=== PATIENT | female | born 1955 | race Caucasian/White ===

== ENCOUNTER 2016-08-15 17:06 | Inpatient (IN) | payer OTHER ==
[~2016-08-15] VITALS: Ht 160 cm; Wt 62.2 kg
[~2016-08-15 17:06] MED LIST: ALBU1AER9 INH; ATEN-173 PO; CITA20TA9 PO; LISI-729 PO; LORA-741 PO; MULT-506 PO; ONDA8TAB7 PO; PROC1TAB5 PO; THIA50TA3 PO; TRAM-10 PO
[2016-08-15] MEDS ORDERED: ASPIRIN 81 MG CHEW PO STA (17:25)
--- NOTE | 2016-08-15 17:37 | EMERGENCY ROOM VISIT NOTE ---
History Report prepared by Monica: Marita Kay Under the Supervision of: Dr. Ej Morin M.D. First contact with patient: 17:18 Chief Complaint: CARDIAC ASSESSMENT Stated Complaint: A-FIB,SENT BY DR Rosa Triage Summary: pt has hx of a fib in March 2015, today pt went to see Dr Min for productive cough and shaking pt was in a fib and referred to ER, no pain History of Present Illness The patient is a 61 year old female who presents to the Emergency Room with complaints of first intermittent atrial fibrillation that began several months ago, but became persistent two days ago. The patient notes that she has a history of atrial fibrillation of, but is unsure if she was given medications to convert her rhythm. She denies any history of being cardioverted. The patient additionally notes shakiness, coughing, and fatigue with her symptoms today. She denies any chest pain or shortness of breath. The patient states that she has a history of breast cancer and states that she is currently in remission. She states that her atrial fibrillation began intermittently in the end of December when she finished radiation therapy. The patient notes that she takes 81 mg of aspirin daily. She additionally notes that she occasionally vomits in the morning along with her other symptoms. Source of History: patient Onset: several months ago, past two days Position: other (global) Quality: other (atrial fibrillation) Timing: other (persistent) Associated Symptoms: + cough, + fatigue, + vomiting, No SOB, No chest pain Note: Associated Symptoms: Shakiness Review of Systems See HPI for pertinent positives & negatives. A total of 10 systems reviewed and were otherwise negative. Past Medical & Surgical Medical Problems: (1) Breast cancer (2) High cholesterol (3) HTN (hypertension) (4) Mitral valve vegetation (5) Periapical abscess (6) Sepsis Surgical Problems: (1) H/O lumpectomy Family History Diabetes mellitus Heart disease Hypertension Social History Smoking Status: Current Every Day Smoker Alcohol Use: heavy Drug Use: none Marital Status: Housing Status: lives with significant other Occupation Status: retired Current/Historical Medications Scheduled Aspirin (Aspirin Ec), 81 MG PO QAM Atenolol (Tenormin), 25 MG PO QAM Citalopram Hydrobromide (Celexa), 20 MG PO QAM Losartan Potassium (Cozaar), 50 MG PO QAM Thiamine Hcl (Vitamin B-1), 100 MG PO QAM Scheduled PRN Albuterol Sulfate (Proair Respiclick), 2 PUFFS INH Q4 PRN for WHEEZING/COUGH Lorazepam (Ativan), 0.5 MG PO Q6H PRN for Sleep Ondansetron (Ondansetron HCl), 8 MG PO TID PRN for Nausea Prochlorperazine Maleate (Compazine), 10 MG PO Q6H PRN for Nausea Tramadol (Ultram), 1 TAB PO HS PRN for Pain Allergies Coded Allergies: Sulfa Antibiotics (Verified Allergy, Mild, "SULFA" -- unknown rxn, 08/15/16 ) Physical Exam Vital Signs Date Time Temp Pulse Resp B/P Pulse Ox O2 Delivery O2 Flow Rate FiO2 08/15/16 17:33 98 Room Air 08/15/16 17:32 98 Room Air 08/15/16 17:13 97 Room Air 08/15/16 17:13 37.0 109 20 116/73 97 Room Air Physical Exam GENERAL: Patient is a healthy-appearing well-nourished. Tremulous. HEAD: Normocephalic atraumatic EYES: Ocular movements intact pupils equal and react to light OROPHARYNX mucous membranes are moist no exudates present no erythema or edema present NECK: Supple no nuchal rigidity CHEST: Good equal expansion LUNGS: Clear and equal to auscultation CARDIAC: Normal S1 and S2 ABDOMEN: Soft nontender no guarding BACK: No CVA tenderness EXTREMITIES: No pain upon palpation normal muscle strength in all groups no clubbing cyanosis or edema NEURO: Patient is following commands is answering questions appropriately. Alert and oriented x3 Cranial Nerves 2-12 grossly intact Medical Decision & Procedures ER Provider Diagnostic Interpretation: X-ray results as stated below per interpretation by me and the radiologist: CHEST ONE VIEW PORTABLE CLINICAL HISTORY: CHEST PAIN dyspnea COMPARISON STUDY: 05/14/2015 FINDINGS: Mild stable cardiomegaly. Lungs are clear. Diaphragms are smooth. IMPRESSION: Mild stable cardiomegaly. Otherwise negative study Electronically signed by: Baltazar Chisholm M.D. 08/15/2016 6:05 PM Dictated Date/Time: 08/15/2016 6:04 PM Laboratory Results 08/15/16 17:35 Red Blood Count 4.33, Mean Corpuscular Volume 97.5, Mean Corpuscular Hemoglobin 35.1, Mean Corpuscular Hemoglobin Concent 36.0, Mean Platelet Volume 10.1, Neutrophils (%) (Auto) 76.3, Lymphocytes (%) (Auto) 11.4, Monocytes (%) (Auto) 11.4, Eosinophils (%) (Auto) 0.1, Basophils (%) (Auto) 0.6, Neutrophils # (Auto ) 6.83, Lymphocytes # (Auto) 1.02, Monocytes # (Auto) 1.02, Eosinophils # (Auto ) 0.01, Basophils # (Auto) 0.05 08/15/16 17:35 Test 08/15/16 17:35 White Blood Count 8.95 K/uL (4.8-10.8) Red Blood Count 4.33 M/uL (4.2-5.4) Hemoglobin 15.2 g/dL (12.0-16.0) Hematocrit 42.2 % (37-47) Mean Corpuscular Volume 97.5 fL (80-100) Mean Corpuscular Hemoglobin 35.1 pg (25-34) Mean Corpuscular Hemoglobin Concent 36.0 g/dl (32-36) Platelet Count 178 K/uL (130-400) Mean Platelet Volume 10.1 fL (7.4-10.4) Neutrophils (%) (Auto) 76.3 % Lymphocytes (%) (Auto) 11.4 % Monocytes (%) (Auto) 11.4 % Eosinophils (%) (Auto) 0.1 % Basophils (%) (Auto) 0.6 % Neutrophils # (Auto) 6.83 K/uL (1.4-6.5) Lymphocytes # (Auto) 1.02 K/uL (1.2-3.4) Monocytes # (Auto) 1.02 K/uL (0.11-0.59) Eosinophils # (Auto) 0.01 K/uL (0-0.5) Basophils # (Auto) 0.05 K/uL (0-0.2) RDW Standard Deviation 46.6 fL (36.4-46.3) RDW Coefficient of Variation 13.0 % (11.5-14.5) Immature Granulocyte % (Auto) 0.2 % Immature Granulocyte # (Auto) 0.02 K/uL (0.00-0.02) Prothrombin Time 12.6 SECONDS (9.0-12.0) Prothromb Time International Ratio 1.2 (0.9-1.1) Activated Partial Thromboplast Time 31.5 SECONDS (21.0-31.0) Partial Thromboplastin Ratio 1.2 Anion Gap 11.0 mmol/L (3-11) Est Creatinine Clear Calc Drug Dose 71.0 ml/min Estimated GFR () 99.9 Estimated GFR (Non- 86.2 BUN/Creatinine Ratio 17.4 (10-20) Calcium Level 9.1 mg/dl (8.5-10.1) Total Bilirubin 0.9 mg/dl (0.2-1) Direct Bilirubin 0.2 mg/dl (0-0.2) Aspartate Amino Transf (AST/SGOT) 55 U/L (15-37) Alanine Aminotransferase (ALT/SGPT) 45 U/L (12-78) Alkaline Phosphatase 104 U/L (45-117) Total Creatine Kinase 97 U/L (26-192) Creatine Kinase MB 1.6 ng/ml (0.5-3.6) Creatine Kinase MB Ratio 1.6 (0-3.0) Troponin I 0.049 ng/ml (0-0.045) Total Protein 8.1 gm/dl (6.4-8.2) Albumin 3.9 gm/dl (3.4-5.0) Lipase 409 U/L (73-393) Labs reviewed by ED physician. Medications Administered Medications (Trade) Dose Ordered Sig/Ton Route Start Time Stop Time Status Last Admin Dose Admin Aspirin (Aspirin Chew) 324 mg NOW STAT PO 08/15/16 17:25 08/15/16 17:27 DC 08/15/16 17:39 324 MG ECG Indication: other (atrial fibrillation) Rate (beats per minute): 104 Rhythm: atrial fibrillation Findings: no acute ischemic change, other (RVR) ED Course 1720: Past medical records reviewed. The patient was evaluated in room B10. A complete history and physical examination was performed. 1724: Ordered Aspirin 324 mg PO. 0: I reevaluated the patient and she is resting comfortably. I discussed the exam findings with her and I discussed the treatment plan. She verbalized complete understanding and agreement. She will be evaluated for further treatment. 1837: I discussed the patients case with Sinan Champion. He is going to be evaluated for further treatment. Medical Decision Differential diagnosis: Etiologies such as cardiac ischemia, aortic dissection, pulmonary embolism, pneumonia, pneumothorax, musculoskeletal, infections, pericarditis, myocarditis , esophageal rupture, gastrointestinal, as well as others were entertained. This is a 61-year-old female who presents emergency department complaining of shakiness. The patient reports that when she is shaky she feels she is age atrial fibrillation. She went to her primary care physician's office and sent her to the emergency department. The patient feels that she has been in atrial fibrillation since at least Monday. She was given aspirin here in the emergency department. She has an elevation in her troponin. Based on these findings I did discuss the case with the hospitalist service who agreed to admit the patient. Patient was in agreement with the treatment plan. Consults Time Called: 1829 Consulting Physician: Sinan Champion Returned Call: [phone] I discussed the patients case with Sinan Champion. He is going to be evaluated for further treatment. Impression Primary Impression: Atrial fibrillation Scribe Attestation The scribe's documentation has been prepared under my direction and personally reviewed by me in its entirety. I confirm that the note above accurately reflects all work, treatment, procedures, and medical decision making performed by me. Departure Information Dispostion Being Evaluated By Hospitalist Referrals Julius Min M.D. (PCP) Problem Qualifiers Primary Impression: Atrial fibrillation Atrial fibrillation type: unspecified Qualified Codes: I48.91 - Unspecified atrial fibrillation
[2016-08-15 17:47] LABS: BASO % 0.6 %; BASO ABS # 0.05 K/uL (0-0.2); COMPLETE YES; EOS % 0.1 %; HEMATOCRIT 42.2 % (37-47); IG% 0.2 %; LYMPH % 11.4 %; LYMPH ABS # 1.02 K/uL (1.2-3.4); MEAN CELL VOLUME 97.5 fL (80-100); MEAN CORPUSCULAR HEMOGLOBIN 35.1 pg (25-34); MEAN PLATELET VOLUME 10.1 fL (7.4-10.4); MONO % 11.4 %; NEUT % 76.3 %; PLATELET COUNT 178 K/uL (130-400); RED BLOOD COUNT 4.33 M/uL (4.2-5.4); WHITE BLOOD COUNT 8.95 K/uL (4.8-10.8)
[2016-08-15 17:55] LABS: INR 1.2 (0.9-1.1); PARTIAL THROMBOPLASTIN RATIO 1.2; PROTHROMBIN TIME (PATIENT) 12.6 SECONDS (9.0-12.0)
[2016-08-15] MEDS ORDERED: ALBU18002 INH (17:57)
[2016-08-15] MEDS ORDERED: ONDA-63 PO (17:57)
[2016-08-15] MEDS ORDERED: ASPI81TA28 PO (17:57)
[2016-08-15] MEDS ORDERED: LOSA50TA54 PO (17:57)
--- NOTE | 2016-08-15 18:06 | DIAGNOSTIC IMAGING REPORT ---
CHEST ONE VIEW PORTABLE CLINICAL HISTORY: CHEST PAIN dyspnea COMPARISON STUDY: 05/14/2015 FINDINGS: Mild stable cardiomegaly. Lungs are clear. Diaphragms are smooth. IMPRESSION: Mild stable cardiomegaly. Otherwise negative study Electronically signed by: Baltazar Chisholm M.D. 08/15/2016 6:05 PM Dictated Date/Time: 08/15/2016 6:04 PM
[2016-08-15 18:10] LABS: BUN/CREATININE RATIO 17.4 (10-20); CALCIUM 9.1 mg/dl (8.5-10.1); CREATININE 0.74 mg/dl (0.60-1.20); POTASSIUM 4.1 mmol/L (3.5-5.1)
[2016-08-15 18:19] LABS: CKMB/CK RATIO 1.6 (0-3.0)
[2016-08-15] MEDS ORDERED: NITROGLYCERIN 0.4 MG SL PER TAB CHARGE SL PRN (19:15)
[2016-08-15 19:41] LABS: MAGNESIUM 1.6 mg/dl (1.8-2.4); THYROID STIMULATING HORMONE 2.89 uIu/ml (0.300-4.500)
--- NOTE | 2016-08-15 20:11 | History and Physical ---
History & Physical Date & Time of Service: Aug 15, 2016 at 19:21 Chief Complaint: A-Fib,Sent By Primary Care Physician: Julius Min M.D. History of Present Illness Source: patient, clinic records, hospital records 61 year old female with PMH of Paroxysmal AFIB, Dyslipidemia, Tobacco abuse, HTN, breast ca, depression and anxiety presents to ED after she was seen at her PCP office and sent for Afib. Pt said that since December she has been having tremor. she said in the last 2 days the shakiness got worst and she went to see her pcp. She said that she has been coughing a lot associated with white sputum. Pt said that the last time she was in Afib was Mar 2015 while she was admitted. she said that she converted back to sinus rhythm without any cardiovert. She said that she feels a pounding in her heart. Pt is very anxious. She denies any chest pain, palpitation, fever, dizziness and sob. she said that she feels chills and sweat lately at night. Past Medical/Surgical History Medical Problems: (1) Breast cancer Status: Chronic (2) High cholesterol Status: Chronic Surgical Problems: (1) H/O lumpectomy Status: Resolved Family History Diabetes mellitus Heart disease Hypertension Social History Smoking Status: Current Every Day Smoker Alcohol Use: about 2 beers every other day Drug Use: none Marital Status: Occupational Status: retired Multi-Drug Resistant Organisms History of MDRO: No Allergies Coded Allergies: Sulfa Antibiotics (Verified Allergy, Mild, "SULFA" -- unknown rxn, 08/15/16 ) Home Medications Scheduled Aspirin (Aspirin Ec), 81 MG PO QAM Atenolol (Tenormin), 25 MG PO QAM Citalopram Hydrobromide (Celexa), 20 MG PO QAM Losartan Potassium (Cozaar), 50 MG PO QAM Thiamine Hcl (Vitamin B-1), 100 MG PO QAM Scheduled PRN Albuterol Sulfate (Proair Respiclick), 2 PUFFS INH Q4 PRN for WHEEZING/COUGH Tramadol (Ultram), 1 TAB PO HS PRN for Pain Review of Systems Constitutional: + chills, + fatigue, + sweats, No fever Eyes: No eye pain, No worsening of vision ENT: No nasal symptoms Respiratory: + cough, + sputum, No shortness of breath Cardiovascular: + problem reported (pounding feeling), No chest pain, No claudication, No orthopnea, No palpitations Abdomen: No nausea, No pain Musculoskeletal: No calf pain Genitourinary - Female: No dysuria, No urinary frequency, No urinary urgency Neurologic: No memory loss, No weakness Psychiatric: + anxiety, No substance abuse Endocrine: + fatigue, No excessive thirst Hematologic / Lymphatic: + night sweats, No abnormal bleeding/bruising Integumentary: No itch, No rash Allergic / Immunologic: No environmental allergies Physical Exam Vital Signs Date Time Temp Pulse Resp B/P Pulse Ox O2 Delivery O2 Flow Rate FiO2 08/15/16 19:05 108 18 152/86 97 Room Air 08/15/16 17:33 98 Room Air 08/15/16 17:32 98 Room Air 08/15/16 17:13 97 Room Air 08/15/16 17:13 37.0 109 20 116/73 97 Room Air General Appearance: WD/WN, no apparent distress Head: normocephalic, atraumatic Eyes: normal inspection, PERRL, EOMI ENT: normal ENT inspection, hearing grossly normal Neck: supple, no JVD, no carotid bruits Respiratory/Chest: chest non-tender, lungs clear, normal breath sounds, no respiratory distress, no accessory muscle use Cardiovascular: no JVD, + tachycardia, + irregularly irregular Abdomen/GI: normal bowel sounds, non tender, soft Back: normal inspection, no CVA tenderness, normal range of motion Extremities/Musculoskelatal: normal inspection, no calf tenderness Neurologic/Psych: data programmer II-XII nml as tested, no motor/sensory deficits, alert, oriented x 3 Skin: normal color, warm/dry Diagnostics Laboratory Results Results Past 24 Hours Test 08/15/16 17:35 Range/Units White Blood Count 8.95 4.8-10.8 K/uL Red Blood Count 4.33 4.2-5.4 M/uL Hemoglobin 15.2 12.0-16.0 g/dL Hematocrit 42.2 37-47 % Mean Corpuscular Volume 97.5 80-100 fL Mean Corpuscular Hemoglobin 35.1 25-34 pg Mean Corpuscular Hemoglobin Concent 36.0 32-36 g/dl Platelet Count 178 130-400 K/uL Mean Platelet Volume 10.1 7.4-10.4 fL Neutrophils (%) (Auto) 76.3 % Lymphocytes (%) (Auto) 11.4 % Monocytes (%) (Auto) 11.4 % Eosinophils (%) (Auto) 0.1 % Basophils (%) (Auto) 0.6 % Neutrophils # (Auto) 6.83 1.4-6.5 K/uL Lymphocytes # (Auto) 1.02 1.2-3.4 K/uL Monocytes # (Auto) 1.02 0.11-0.59 K/uL Eosinophils # (Auto) 0.01 0-0.5 K/uL Basophils # (Auto) 0.05 0-0.2 K/uL RDW Standard Deviation 46.6 36.4-46.3 fL RDW Coefficient of Variation 13.0 11.5-14.5 % Immature Granulocyte % (Auto) 0.2 % Immature Granulocyte # (Auto) 0.02 0.00-0.02 K/uL Prothrombin Time 12.6 9.0-12.0 SECONDS Prothromb Time International Ratio 1.2 0.9-1.1 Activated Partial Thromboplast Time 31.5 21.0-31.0 SECONDS Partial Thromboplastin Ratio 1.2 Sodium Level 130 136-145 mmol/L Potassium Level 4.1 3.5-5.1 mmol/L Chloride Level 96 98-107 mmol/L Carbon Dioxide Level 23 21-32 mmol/L Anion Gap 11.0 3-11 mmol/L Blood Urea Nitrogen 13 7-18 mg/dl Creatinine 0.74 0.60-1.20 mg/dl Est Creatinine Clear Calc Drug Dose 71.0 ml/min Estimated GFR () 99.9 Estimated GFR (Non- 86.2 BUN/Creatinine Ratio 17.4 10-20 Random Glucose 138 70-99 mg/dl Calcium Level 9.1 8.5-10.1 mg/dl Total Bilirubin 0.9 0.2-1 mg/dl Direct Bilirubin 0.2 0-0.2 mg/dl Aspartate Amino Transf (AST/SGOT) 55 15-37 U/L Alanine Aminotransferase (ALT/SGPT) 45 12-78 U/L Alkaline Phosphatase 104 45-117 U/L Total Creatine Kinase 97 26-192 U/L Creatine Kinase MB 1.6 0.5-3.6 ng/ml Creatine Kinase MB Ratio 1.6 0-3.0 Troponin I 0.049 0-0.045 ng/ml Total Protein 8.1 6.4-8.2 gm/dl Albumin 3.9 3.4-5.0 gm/dl Lipase 409 73-393 U/L Diagnostic Radiology CHEST ONE VIEW PORTABLE CLINICAL HISTORY: CHEST PAIN dyspnea COMPARISON STUDY: 05/14/2015 FINDINGS: Mild stable cardiomegaly. Lungs are clear. Diaphragms are smooth. IMPRESSION: Mild stable cardiomegaly. Otherwise negative study Electronically signed by: Baltazar Chisholm M.D. 08/15/2016 6:05 PM Dictated Date/Time: 08/15/2016 6:04 PM Impression Assessment and Plan AFib hx of P. Afib present with worsening tremors and cough HR between 90 to 100's Troponin slightly elevated EKG done at pcp office showed afib will follow CM will do rate control with metoprolol 25 mg BID [id number] score 2 will start on heparin drip echo in am Mg, TSH pending Cardio consult Case discussed with Dr. Drake Last Echo on 05/05 Interpretation Summary There was sinus tachycardia during the examination. There is a possible vegetation on the anterior mitral valve leaflet(s) The maximum diameter ot the mitral valve vegetation is 76mm. There is a mobile component of the vegetation prolapsing in the the subchordal apparatus (ventricular aspect of valve). Mild mitral regurgitation is present. The mitral regurgitation jet is eccentric. The mitral regurgitation jet is also posteriorly directed. The qualitative LV ejection fraction is >70% (hyperdynamic). Elevated troponin mostly due to Afib on EKG Follow up CM continue asa will start metoprolol check lipid panel Cough Possible viral etiology CXR negative will put on prn cough suppressant Elevated Lipase denies any GI symptoms prior lab showed elevated lipase will repeat lipase in am Continue IVF Tremors Possible related to anxiety Anxiety/ Depression continue celexa Tobacco abuse counseling on smoking cessation nicotine patch HTN Continue losartan 50mg Atenolol changed to metoprolol continue monitor BP Breast Ca completed chemo stable DVT px on heparin drip CODE status Full code VTE Prophylaxis VTE Risk Assessment Done? Y/N: Yes Risk Level: Moderate Additional Copies To Julius Min M.D.
[2016-08-15 20:30] VITALS: BP 147/89; PULSE 98; TEMP 37.1; Ht 160 cm; Wt 62.2 kg
[2016-08-15] MEDS ORDERED: ALBUTEROL HFA 8 GM INHALER INH PRN (20:30)
[2016-08-15] MEDS ORDERED: TRAMADOL HCL 50 MG TAB PO PRN (20:30)
[2016-08-15] MEDS ORDERED: GUAIFENESIN 200 MG TAB PO PRN (21:00)
[2016-08-15] MEDS: SODIUM CHLORIDE 0.9% 1000ML 1,000 ML IV SCH (21:05)
[2016-08-15] MEDS ORDERED: HEPARIN IV BOLUS 5,000 UNIT in SYRINGE 0 ML IV STA (21:25)
[2016-08-15] MEDS ORDERED: HEPARIN 25,000 UNIT/500ML D5W 500 ML IV PRN (21:30)
[2016-08-15] MEDS ORDERED: HEPARIN SOD 5000 UNIT/0.5 ML CARP SQ SCH (22:00)
[2016-08-15] MEDS: MAGNESIUM SULFATE 1GM / D5W 1 GM in PREMIXED IN D5W 100 ML IV SCH ×2 (22:04→23:27)
[2016-08-15] MEDS: METOPROLOL TARTRATE 25 MG TAB PO SCH (22:04)
[2016-08-15 22:17] LABS: URINE APPEARANCE CLEAR (CLEAR); URINE BILIRUBIN NEG (NEG); URINE COLOR YELLOW; URINE EPITHELIAL CELL AUTO 20-30 /lpf (0-5); URINE NITRITE NEG (NEG); URINE PH 7.5 (4.5-7.5); URINE SPECIFIC GRAVITY 1.008 (1.000-1.030); UROBILINOGEN NEG (NEG); ZZUR CULT IF INDIC CLEAN CATCH NO
[2016-08-15 22:26] LABS: MANUAL MICROSCOPIC REQUIRED? NO; REVIEW REQ? NO
[2016-08-16] VITALS (9 sets, daily range): BP systolic 94–159; BP diastolic 66–104; PULSE 65–103; TEMP 36.4–37.1; O2SAT 96–98
[2016-08-16 04:47] LABS: PARTIAL THROMBOPLASTIN RATIO 2.1
[2016-08-16 04:58] LABS: AMYLASE 45 U/L (25-115); CHOLESTEROL 214 mg/dl (0-200); CHOLESTEROL/HDL RATIO 2.7; HDL CHOLESTEROL 79 mg/dl; LDL CHOLESTEROL CALCULATED 123 mg/dl; TRIGLYCERIDES 61 mg/dl (0-150); VERY LOW DENSITY LIPOPROT CALC 12 mg/dl
[2016-08-16] MEDS: METOPROLOL TARTRATE 25 MG TAB PO SCH ×2 (08:52→21:28)
[2016-08-16] MEDS: SODIUM CHLORIDE 0.9% 1000ML 1,000 ML IV SCH ×2 (08:52→21:28)
[2016-08-16] MEDS: ASPIRIN 81 MG ECTAB PO SCH (08:52)
[2016-08-16] MEDS: THIAMINE HCL 50 MG TAB PO SCH (08:53)
[2016-08-16] MEDS: LOSARTAN POTASSIUM 50 MG TAB PO SCH (08:53)
[2016-08-16] MEDS: CITALOPRAM 20 MG TAB PO SCH (08:53)
[2016-08-16] MEDS: PANTOprazole SOD 40 MG TAB PO SCH (08:53)
[2016-08-16] MEDS ORDERED: ASPIRIN 81 MG ECTAB PO SCH (09:00)
--- NOTE | 2016-08-16 09:58 | Cardiology Consultation ---
Cardiology Consultation Date of Service Aug 16, 2016. (Renetta Glynn PA-C) Cardiology Consultation HPI: Michelle Puente is a 61 year old female who has a PMH for paroxysmal atrial fibrillation, last episode in 2014, converting with IV amiodarone and transitioning to atenolol therapy at that time and discharged on ASA 81 mg only due to low stroke risk. She also has a history of thickened mitral valve leaflet with initial concerns for endocarditis, and GUANAKO demonstrating no vegetation/lesion. Other history includes breast carcinoma s/p chemotherapy and radiation therapy, chronic tobacco abuse, HTN, dyslipidemia, depression/ anxiety. She presented to PCP yesterday with concerns regarding "shakiness/tremors" since December and ongoing cough with sputum production. She was found to have irregular pulse and EKG confirmed recurrent atrial fibrillation with mildly elevated ventricular rates. She was referred to [facility] for further evaluation and management. Patient attributes her tremors to her atrial fibrillation, stating this is similar symptoms that she had in 2014 with afib. However she states her tremors have been present since December and she was not aware of an irregular pulse until she noted intermittent palpitations in June. No dizziness, syncope or near syncope. No worsening SOB or dyspnea on exertion noted. She notes ongoing cough with clear/white sputum production, worse in AM. She continues to smoke. No chest pain at rest or with exertional activities. Since admission she was transitioned from atenolol to metoprolol therapy. Rates have improved, currently in the 80's. Troponin mildly elevated at .049, likely secondary to afib with RVR. No ischemic changes on EKG. No chest pain. Echo pending. Magnesium supplemented At time of consult, patient sitting in bed feeling well. She states her tremors have improved since admission. She is unaware of palpitations or tachypalpitations. No dizziness, syncope or near syncope. No SOB. Cough at baseline. No orthopnea, PND or edema. Review of Systems: A Complete Review of 10 Systems is as stated above or negative. PMH: HTN, goal below 140/90 Adjustment disorder with depressed mood Insomnia Dyslipidemia Breast cancer Paroxysmal atrial fibrillation (HCC) Tobacco abuse Past Surgical History delivery Tubal Ligation Colonoscopy w/ biopsy (rectum) Mastectomy, partial - left 03/2015 Bx lymph node deep axil Placement of a-port tunneled central venous access catheter with port [facility] Dr. Cohen 05/14/2015 Family History: Father with CABG age 70s and pacemaker; Mother with afib and pacemaker. Both living. No history of premature coronary disease or sudden cardiac . Social History: . Chronic tobacco abuse. 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 [employer] Allergies: sulfa Antibiotics Outpatient Medications: Reported Home Medications Medications Dose Route/Sig Max Daily Dose Days Date Category Aspirin Ec (Aspirin) 81 Mg Tab 81 Mg PO QAM 08/15/16 Reported Cozaar (Losartan Potassium) 50 Mg Tab 50 Mg PO QAM 08/15/16 Reported Proair Respiclick (Albuterol Sulfate) 108 Mcg/Act Aer 2 Puffs INH Q4 PRN 08/15/16 Reported Ultram (Tramadol HCl) 50 Mg Tab 1 Tab PO HS PRN 30 10/27/15 Reported Vitamin B-1 (Thiamine HCl) 50 Mg Tab 100 Mg PO QAM 05/13/15 Reported Celexa (Citalopram Hydrobromide) 20 Mg Tab 20 Mg PO QAM 04/27/15 Reported Tenormin (Atenolol) 25 Mg Tab 25 Mg PO QAM 04/27/15 Reported OBJECTIVE/PHYSICAL EXAMINATION:\\ Last 8 Hrs Date Time Temp Pulse Resp B/P Pulse Ox O2 Delivery O2 Flow Rate FiO2 08/16/16 07:58 36.8 76 18 159/73 98 08/16/16 04:20 97 Room Air 08/16/16 03:56 36.5 65 20 158/98 98 Room Air General: no acute distress and stated age Eyes: conjunctiva are pink and non-injected, sclera clear Neck: normal jugular venous pulse, no hepatojugular reflux Chest: normal shape and normal respiratory effort Lungs: clear to auscultation and percussion Cardiac Exam: Irregular irregular. No audible murmurs, rubs, or gallops Abdomen: abdomen soft, non-tender, no abnormal masses and no hepatosplenomegaly Musculoskeletal: no gait disturbance, no weakness Extremities: no edema and no cyanosis Neuro: grossly normal exam Psych: appropriate affect and insight. Data: EKG on admission: Atrial fibrillation with rapid ventricular response at 107 bpm Moderate voltage criteria for LVH, may be normal variant Abnormal ECG When compared with ECG of 30-APR-2015 06:45, Atrial fibrillation has replaced Sinus rhythm Vent. rate has increased BY 39 BPM T wave amplitude has decreased in Lateral leads Repeat EKG this AM: Atrial fibrillation with controlled ventricular rate Abnormal ECG When compared with ECG of 15-AUG-2016 17:10, (unconfirmed) No significant change was found Chest Xray on admission: IMPRESSION: Mild stable cardiomegaly. Otherwise negative study Telemetry reviewed: Atrial fibrillation with relatively well controlled rates ranging 70-110 bpm this AM. Prior GUANAKO performed on 04/29/15 at [facility] and interpreted by Dr. Riggs: Focal thickening of the anterior mitral valve leaflet, without superimposed mass or lesion. No MR or stenosis. Prior Echocardiogram reviewed, dated 04/27/16, and interpreted by Dr. Valdez: The examination is adequate to evaluate the referral indication. There was sinus tachycardia during the examination. There is a possible vegetation on the anterior mitral valve leaflet(s) The maximum diameter ot the mitral valve vegetation is 76mm. There is a mobile component of the vegetation prolapsing in the the subchordal apparatus (ventricular aspect of valve). Mild mitral regurgitation is present. The mitral regurgitation jet is eccentric. The mitral regurgitation jet is also posteriorly directed. The qualitative LV ejection fraction is >70% (hyperdynamic). No pericardial effusion is noted. No prior studies are available for comparison. Last 24 Hours Test 08/15/16 17:35 08/15/16 21:05 08/15/16 23:26 08/15/16 23:30 White Blood Count 8.95 K/uL Red Blood Count 4.33 M/uL Hemoglobin 15.2 g/dL Hematocrit 42.2 % Mean Corpuscular Volume 97.5 fL Mean Corpuscular Hemoglobin 35.1 pg Mean Corpuscular Hemoglobin Concent 36.0 g/dl Platelet Count 178 K/uL Mean Platelet Volume 10.1 fL Neutrophils (%) (Auto) 76.3 % Lymphocytes (%) (Auto) 11.4 % Monocytes (%) (Auto) 11.4 % Eosinophils (%) (Auto) 0.1 % Basophils (%) (Auto) 0.6 % Neutrophils # (Auto) 6.83 K/uL Lymphocytes # (Auto) 1.02 K/uL Monocytes # (Auto) 1.02 K/uL Eosinophils # (Auto) 0.01 K/uL Basophils # (Auto) 0.05 K/uL RDW Standard Deviation 46.6 fL RDW Coefficient of Variation 13.0 % Immature Granulocyte % (Auto) 0.2 % Immature Granulocyte # (Auto) 0.02 K/uL Prothrombin Time 12.6 SECONDS Prothromb Time International Ratio 1.2 Activated Partial Thromboplast Time 31.5 SECONDS Partial Thromboplastin Ratio 1.2 Sodium Level 130 mmol/L Potassium Level 4.1 mmol/L Chloride Level 96 mmol/L Carbon Dioxide Level 23 mmol/L Anion Gap 11.0 mmol/L Blood Urea Nitrogen 13 mg/dl Creatinine 0.74 mg/dl Est Creatinine Clear Calc Drug Dose 71.0 ml/min Estimated GFR () 99.9 Estimated GFR (Non- 86.2 BUN/Creatinine Ratio 17.4 Random Glucose 138 mg/dl Calcium Level 9.1 mg/dl Magnesium Level 1.6 mg/dl Total Bilirubin 0.9 mg/dl Direct Bilirubin 0.2 mg/dl Aspartate Amino Transf (AST/SGOT) 55 U/L Alanine Aminotransferase (ALT/SGPT) 45 U/L Alkaline Phosphatase 104 U/L Total Creatine Kinase 97 U/L Creatine Kinase MB 1.6 ng/ml 1.8 ng/ml Creatine Kinase MB Ratio 1.6 Troponin I 0.049 ng/ml 0.049 ng/ml Total Protein 8.1 gm/dl Albumin 3.9 gm/dl Lipase 409 U/L Thyroid Stimulating Hormone (TSH) 2.890 uIu/ml Hepatitis C Antibody Screen NEG Urine Color YELLOW Urine Appearance CLEAR Urine pH 7.5 Urine Specific [place] 1.008 Urine Protein NEG Urine Glucose (UA) NEG Urine Ketones NEG Urine Occult Blood TRACE Urine Nitrite NEG Urine Bilirubin NEG Urine Urobilinogen NEG Urine Leukocyte Esterase TRACE Urine WBC (Auto) 5-10 /hpf Urine RBC (Auto) 0-4 /hpf Urine Hyaline Casts (Auto) 0 /lpf Urine Epithelial Cells (Auto) 20-30 /lpf Urine Bacteria (Auto) NEG Test 08/16/16 04:15 Activated Partial Thromboplast Time 54.4 SECONDS Partial Thromboplastin Ratio 2.1 Creatine Kinase MB 2.3 ng/ml Creatine Kinase MB Ratio Troponin I 0.048 ng/ml Triglycerides Level 61 mg/dl Cholesterol Level 214 mg/dl HDL Cholesterol 79 mg/dl LDL Cholesterol, Calculated 123 mg/dl VLDL Cholesterol, Calculated 12 mg/dl Cholesterol/HDL Ratio 2.7 Amylase Level 45 U/L Lipase 400 U/L IMPRESSION: 61 year old female 1. Persistent atrial fibrillation with elevated ventricular rates on admission -mild troponin elevation of 0.049 consistent with afib RVR. Not indicative of ACS -rates improved with Metoprolol 25 mg BID -await echo -continue IV heparin for now -supplement electrolytes. May need magnesium on discharge -duration of afib is unknown - questionable symptoms since December 2015 vs June 2016 -Recommend anticoagulation. Discussed coumadin vs NOAC. She is interested in NOAC given no lab draws. -Would consider outpatient DCCV after appropriate anticoagulation therapy. 2. HTN, goal below 140/90 -continue losartan and metoprolol. -titrate as needed 3. Chronic tobacco abuse, with ongoing cough - likely underlying COPD Case to be discussed with Dr. Valdez. Further recommendations pending review of test results. (Renetta Glynn PA-C) CARDIOLOGY ATTENDING ADDENDUM: The patient was seen and personally examined. Agree with Renetta Glynn PA-C's findings and plans as documented above with additions as noted below. S: patient notes several month of palpitations. Improved since transition to metoprolol from atenolol. Telemetry reveals AF, now with controlled ventricular rate. Had AV with mild RVR on admission. Exam: CV: irregular rhythm, / SM Ext no edema Data: TTecho performed today and reviewed independently: * -- Conclusions -- * Atrial fibrillation with controlled ventricular rate was present during the echocardiogram examination. * The left ventricular wall motion is normal. * Left ventricular systolic function is normal. * The LV Ejection Fraction = 60-65%. * The left atrium is mildly dilated. * There is moderate mitral annular calcification. * There is focal calcification of the tip of the anterior MV leaflet. * There is mild mitral regurgitation. * The mitral regurgitant jet is eccentrically directed. * The mitral regurgitant jet is posteriorly directed, which is consistent with anterior leaflet pathology. * There is mild tricuspid regurgitation. * Borderline to mild pulmonary hypertension is noted. * The calculated pulmonary artery systolic pressure is 37-40 mm Hg. Impression: Symptomatic AF ,mild RVR on presentation likely explains mild troponin elevation , no rosalba symptoms suggestive of angina. Difficult to determine acuity / chronicity of onset of AF, perhaps has been present for months. Plan: Metoprolol for rate control. DC heparin gtt, start coumadin for stroke prophylaxis. Await repeat labs, if chem panel and trop stable, will DC for outpatient therapy , including coumadin without bridge therapy. We had explored option of treatment with Eliquis and Xarelto, but pt's copays were prohibitively high. Coumadin therefore best option. Outpt anticoag clinic follow up and cardiology follow up will be arranged. If pt remains in AF , will consider DCCV as outpatient after she has been on therapeutic anticoagulation for at least 1 month. (Aaron Valdez D.O.)
--- NOTE | 2016-08-16 11:36 | Progress Note ---
Internal Med Progress Note Date of Service: Aug 16, 2016. Provider Documentation: SUBJECTIVE: Patient is seen and examined at bedside. Reports dry cough. Denies chest pain, palpitations, dizziness. Offers no complaints. OBJECTIVE: Vital Signs-as noted below Physical Exam: General Appearance:Moderately built and nourished, no apparent distress Head: normocephalic, Atraumatic Eyes: normal inspection, EOMI, PERRLA Neck: supple, Trachea midline Respiratory/Chest: Normal breath sounds, CTA Cardiovascular: Irregularly irregular, no murmur Abdomen/GI:Soft, Non tender, Bowel sounds present Extremities/Musculoskelatal:normal inspection, no edema Neurologic/Psych:AAOX3, grossly no focal neurological deficits Skin: normal color, warm Lab data as noted below. ASSESSMENT & PLAN: Atrial fibrillation with RVR: Mild troponin elevation likely secondary to afib with RVR. Continue Metoprolol, IV heparin ECHO:pending TSH:wnl Check electrolytes and replace if needed Needs detention anticoagulation. Appreciate cardiology input May require DCCV as outpatient HTN: Continue losartan and metoprolol. Continue to monitor Chronic hyponatremia: Hypomagnesemia: On IV fluids Monitor electrolytes Cough Possible secondary to chronic COPD CXR negative, Afebrile, No leukocytosis [employer] to quit smoking Reports dry cough currently Elevated Lipase Denies any GI symptoms prior lab showed elevated lipase Continue IVF Tremors Possible related to anxiety Resolved Anxiety/ Depression continue Celexa Tobacco abuse counseling on smoking cessation nicotine patch H/O Breast Cancer completed chemotherapy stable Follow up as outpatient with DVT px: on heparin drip CODE STATUS: Full code DISPOSITION: Continue to monitoring in Tele Vital Signs: Date Time Temp Pulse Resp B/P Pulse Ox O2 Delivery O2 Flow Rate FiO2 08/16/16 08:00 Room Air 08/16/16 07:58 36.8 76 18 159/73 98 08/16/16 04:20 97 Room Air 08/16/16 03:56 36.5 65 20 158/98 98 Room Air 08/16/16 00:30 97 Room Air 08/16/16 00:00 36.8 84 18 137/92 97 Room Air 08/15/16 20:30 37.1 98 20 147/89 Room Air 08/15/16 20:17 95 18 139/90 96 08/15/16 20:05 95 16 139/90 96 Room Air 08/15/16 19:05 108 18 152/86 97 Room Air 08/15/16 17:33 98 Room Air 08/15/16 17:32 98 Room Air 08/15/16 17:13 97 Room Air 08/15/16 17:13 37.0 109 20 116/73 97 Room Air Lab Results: Results Past 24 Hours Test 08/15/16 17:35 08/15/16 21:05 08/15/16 23:26 08/15/16 23:30 Range/Units White Blood Count 8.95 4.8-10.8 K/uL Red Blood Count 4.33 4.2-5.4 M/uL Hemoglobin 15.2 12.0-16.0 g/dL Hematocrit 42.2 37-47 % Mean Corpuscular Volume 97.5 80-100 fL Mean Corpuscular Hemoglobin 35.1 25-34 pg Mean Corpuscular Hemoglobin Concent 36.0 32-36 g/dl Platelet Count 178 130-400 K/uL Mean Platelet Volume 10.1 7.4-10.4 fL Neutrophils (%) (Auto) 76.3 % Lymphocytes (%) (Auto) 11.4 % Monocytes (%) (Auto) 11.4 % Eosinophils (%) (Auto) 0.1 % Basophils (%) (Auto) 0.6 % Neutrophils # (Auto) 6.83 1.4-6.5 K/uL Lymphocytes # (Auto) 1.02 1.2-3.4 K/uL Monocytes # (Auto) 1.02 0.11-0.59 K/uL Eosinophils # (Auto) 0.01 0-0.5 K/uL Basophils # (Auto) 0.05 0-0.2 K/uL RDW Standard Deviation 46.6 36.4-46.3 fL RDW Coefficient of Variation 13.0 11.5-14.5 % Immature Granulocyte % (Auto) 0.2 % Immature Granulocyte # (Auto) 0.02 0.00-0.02 K/uL Prothrombin Time 12.6 9.0-12.0 SECONDS Prothromb Time International Ratio 1.2 0.9-1.1 Activated Partial Thromboplast Time 31.5 21.0-31.0 SECONDS Partial Thromboplastin Ratio 1.2 Sodium Level 130 136-145 mmol/L Potassium Level 4.1 3.5-5.1 mmol/L Chloride Level 96 98-107 mmol/L Carbon Dioxide Level 23 21-32 mmol/L Anion Gap 11.0 3-11 mmol/L Blood Urea Nitrogen 13 7-18 mg/dl Creatinine 0.74 0.60-1.20 mg/dl Est Creatinine Clear Calc Drug Dose 71.0 ml/min Estimated GFR () 99.9 Estimated GFR (Non- 86.2 BUN/Creatinine Ratio 17.4 10-20 Random Glucose 138 70-99 mg/dl Calcium Level 9.1 8.5-10.1 mg/dl Magnesium Level 1.6 1.8-2.4 mg/dl Total Bilirubin 0.9 0.2-1 mg/dl Direct Bilirubin 0.2 0-0.2 mg/dl Aspartate Amino Transf (AST/SGOT) 55 15-37 U/L Alanine Aminotransferase (ALT/SGPT) 45 12-78 U/L Alkaline Phosphatase 104 45-117 U/L Total Creatine Kinase 97 26-192 U/L Creatine Kinase MB 1.6 1.8 0.5-3.6 ng/ml Creatine Kinase MB Ratio 1.6 0-3.0 Troponin I 0.049 0.049 0-0.045 ng/ml Total Protein 8.1 6.4-8.2 gm/dl Albumin 3.9 3.4-5.0 gm/dl Lipase 409 73-393 U/L Thyroid Stimulating Hormone (TSH) 2.890 0.300-4.500 uIu/ml Hepatitis C Antibody Screen NEG NEG Urine Color YELLOW Urine Appearance CLEAR CLEAR Urine pH 7.5 4.5-7.5 Urine Specific [place] 1.008 1.000-1.030 Urine Protein NEG NEG Urine Glucose (UA) NEG NEG Urine Ketones NEG NEG Urine Occult Blood TRACE NEG Urine Nitrite NEG NEG Urine Bilirubin NEG NEG Urine Urobilinogen NEG NEG Urine Leukocyte Esterase TRACE NEG Urine WBC (Auto) 5-10 0-5 /hpf Urine RBC (Auto) 0-4 0-4 /hpf Urine Hyaline Casts (Auto) 0 0-5 /lpf Urine Epithelial Cells (Auto) 20-30 0-5 /lpf Urine Bacteria (Auto) NEG NEG Test 08/16/16 04:15 08/16/16 11:18 08/16/16 11:19 Range/Units Activated Partial Thromboplast Time 54.4 21.0-31.0 SECONDS Partial Thromboplastin Ratio 2.1 Creatine Kinase MB 2.3 0.5-3.6 ng/ml Creatine Kinase MB Ratio 0-3.0 Troponin I 0.048 0-0.045 ng/ml Triglycerides Level 61 0-150 mg/dl Cholesterol Level 214 0-200 mg/dl HDL Cholesterol 79 mg/dl LDL Cholesterol, Calculated 123 mg/dl VLDL Cholesterol, Calculated 12 mg/dl Cholesterol/HDL Ratio 2.7 Amylase Level 45 25-115 U/L Lipase 400 73-393 U/L
--- NOTE | 2016-08-16 12:30 | ECHOCARDIOGRAM REPORT ---
*NOTICE TO RECEIVING REPUBLICAN AGENCY This information is strictly Confidential and protected under [place] law. [place] law prohibits you from making any further disclosure of this information unless further disclosure is expressly permitted by the written consent of the person to whom it pertains or is authorized by law. A general authorization for the release of medical or other information is not sufficient for this purpose. Hospital accepts no responsibility if the information is made available to any other person, INCLUDING THE PATIENT. Interpretation Summary * Name: ELEN CROWDER Study Date: 08/16/2016 06:49 AM BP: 158/98 mmHg * Patient Location: C.2E\S\E211\S\1 HR: 89 * : 1955 (M/d/yyyy) Gender: Female Height: 63 in * Age: 61 yrs Ethnicity: [place] Weight: 145 lb * Ordering Physician: Renata Vasques * Referring Physician: Julius Min * Performed By: Clinton Polk RCS * * Reason For Study: A-FIB * BSA: 1.7 m2 * The study was technically adequate. * -- Conclusions -- * Atrial fibrillation with controlled ventricular rate was present during the echocardiogram examination. * The left ventricular wall motion is normal. * Left ventricular systolic function is normal. * The LV Ejection Fraction = 60-65%. * The left atrium is mildly dilated. * There is moderate mitral annular calcification. * There is focal calcification of the tip of the anterior MV leaflet. * There is mild mitral regurgitation. * The mitral regurgitant jet is eccentrically directed. * The mitral regurgitant jet is posteriorly directed, which is consistent with anterior leaflet pathology. * There is mild tricuspid regurgitation. * Borderline to mild pulmonary hypertension is noted. * The calculated pulmonary artery systolic pressure is 37-40 mm Hg. Procedure Details * A complete two-dimensional transthoracic echocardiogram was performed (2D, M-mode, Doppler and color flow Doppler). Left Ventricle * The left ventricle is normal in size. * There is normal left ventricular wall thickness. * Left ventricular systolic function is normal. * Ejection Fraction = 60-65%. * The left ventricular wall motion is normal. Right Ventricle * The right ventricle is normal size. * The right ventricular systolic function is normal as assessed by tricuspid annular plane systolic excursion (TAPSE) (normal >1.5 cm). Atria * The left atrium is mildly dilated. * Right atrial size is normal. * There is no evidence of atrial septal defect, but resolution does not allow assessment for a patent foramen ovale. Mitral Valve * There is moderate mitral annular calcification. * There is focal calcification of the tip of the anterior MV leaflet. * There is no mitral valve stenosis. * There is mild mitral regurgitation. * The mitral regurgitant jet is eccentrically directed. * The mitral regurgitant jet is posteriorly directed, which is consistent with anterior leaflet pathology. Tricuspid Valve * The tricuspid valve is normal. * There is no tricuspid stenosis. * There is mild tricuspid regurgitation. * Borderline to mild pulmonary hypertension is noted. The calculated pulmonary artery systolic pressure is 37-40 mm Hg. Aortic Valve * The aortic valve is trileaflet. * Aortic stenosis is absent. * There is no significant aortic regurgitation. Pulmonic Valve * The pulmonary valve is not well seen, but the Doppler examination is normal without significant regurgitation or stenosis. Great Vessels * The aortic root and proximal ascending aorta are normal sized. Pericardium/Pleural * There is no pericardial effusion. Great Vessels * Normal inferior vena cava diameter and respiratory variation suggests normal central venous pressure. MMode 2D Measurements and Calculations IVSd 1.0 cm IVSs 1.3 cm LVIDd 4.4 cm LVIDs 3.1 cm LVPWd 0.97 cm LVPWs 1.4 cm IVS/LVPW 1.1 FS 30.4 % EDV(Teich) 89.5 ml ESV(Teich) 37.6 ml EF(Teich) 58.0 % EDV(cubed) 87.4 ml ESV(cubed) 29.5 ml EF(cubed) 66.2 % % IVS thick 27.2 % % LVPW thick 43.7 % LV mass(C)d 151.6 grams LV mass(C)dI 89.9 grams/m\S\2 LV mass(C)s 139.6 grams LV mass(C)sI 82.7 grams/m\S\2 CO(Teich) 3.5 l/min CI(Teich) 2.1 l/min/m\S\2 SV(Teich) 51.9 ml SI(Teich) 30.7 ml/m\S\2 CO(cubed) 3.9 l/min CI(cubed) 2.3 l/min/m\S\2 SV(cubed) 57.9 ml SI(cubed) 34.3 ml/m\S\2 LVAd ap4 28.1 cm\S\2 LVLd ap4 7.8 cm EDV(MOD-sp4) 84.0 ml LVAs ap4 16.1 cm\S\2 LVLs ap4 6.4 cm ESV(MOD-sp4) 34.0 ml EF(MOD-sp4) 59.5 % LVAd ap2 27.5 cm\S\2 LVLd ap2 8.0 cm EDV(MOD-sp2) 80.0 ml LVAs ap2 15.2 cm\S\2 LVLs ap2 6.9 cm ESV(MOD-sp2) 29.0 ml EF(MOD-sp2) 63.8 % CO(MOD-sp4) 3.4 l/min CI(MOD-sp4) 2.0 l/min/m\S\2 SV(MOD-sp4) 50.0 ml SI(MOD-sp4) 29.6 ml/m\S\2 CO(MOD-sp2) 3.5 l/min CI(MOD-sp2) 2.1 l/min/m\S\2 SV(MOD-sp2) 51.0 ml SI(MOD-sp2) 30.2 ml/m\S\2 Doppler Measurements and Calculations MV E max prosper 154.9 cm/sec MV A max prosper 66.5 cm/sec MV E/A 2.3 MV P1/2t max prsoper 166.3 cm/sec MV P1/2t 80.7 msec MVA(P1/2t) 2.7 cm\S\2 MV dec slope 603.3 cm/sec\S\2 MV dec time 0.16 sec Ao V2 max 126.2 cm/sec Ao max PG 6.4 mmHg Ao max PG (full) 2.2 mmHg LV V1 max PG 4.1 mmHg LV V1 max 101.8 cm/sec PA V2 max 104.8 cm/sec PA max PG 4.4 mmHg PI max prosper 223.7 cm/sec PI max PG 20.0 mmHg PI dec slope 148.4 cm/sec\S\2 PI P1/2t 441.6 msec TR max prosper 292.2 cm/sec
[2016-08-16 12:44] LABS: BASO % 1.1 %; BASO ABS # 0.08 K/uL (0-0.2); COMPLETE YES; EOS % 0.8 %; HEMATOCRIT 37.4 % (37-47); IG% 0.1 %; LYMPH ABS # 1.56 K/uL (1.2-3.4); MEAN CELL VOLUME 97.4 fL (80-100); MEAN CORPUSCULAR HEMOGLOBIN 34.1 pg (25-34); MEAN PLATELET VOLUME 9.8 fL (7.4-10.4); MONO % 7.6 %; NEUT % 68.4 %; PLATELET COUNT 156 K/uL (130-400); RED BLOOD COUNT 3.84 M/uL (4.2-5.4); WHITE BLOOD COUNT 7.09 K/uL (4.8-10.8)
[2016-08-16 13:33] LABS: BUN/CREATININE RATIO 9.2 (10-20); CALCIUM 8.4 mg/dl (8.5-10.1); CREATININE 0.77 mg/dl (0.60-1.20); MAGNESIUM 1.7 mg/dl (1.8-2.4); POTASSIUM 4.2 mmol/L (3.5-5.1)
[2016-08-16] MEDS: NICOTINE 14 MG/24 HR TDSY TD SCH (13:52)
[2016-08-16] MEDS ORDERED: WARFARIN SOD 5 MG TAB PO ONE (14:00)
[2016-08-16] MEDS ORDERED: MAGNESIUM SULFATE 1GM / D5W 1 GM in PREMIXED IN D5W 100 ML IV ONE (14:15)
[2016-08-17 00:01] VITALS: O2SAT 96
[2016-08-17 04:00] VITALS: O2SAT 97
[2016-08-17 04:03] VITALS: BP 172/96; PULSE 89; TEMP 36.5; O2SAT 97
[2016-08-17 04:14] VITALS: BP 149/83
[2016-08-17 07:17] LABS: HEMATOCRIT 37.9 % (37-47); MEAN CELL VOLUME 99.2 fL (80-100); MEAN CORPUSCULAR HGB CONC 34.3 g/dl (32-36); MEAN PLATELET VOLUME 10.4 fL (7.4-10.4); PLATELET COUNT 142 K/uL (130-400); RED BLOOD COUNT 3.82 M/uL (4.2-5.4); WHITE BLOOD COUNT 6.58 K/uL (4.8-10.8)
[2016-08-17 07:33] LABS: INR 1.1 (0.9-1.1); PROTHROMBIN TIME (PATIENT) 11.9 SECONDS (9.0-12.0)
[2016-08-17 07:57] LABS: BUN/CREATININE RATIO 18.4 (10-20); CREATININE 0.37 mg/dl (0.60-1.20); MAGNESIUM 1.7 mg/dl (1.8-2.4); POTASSIUM 3.8 mmol/L (3.5-5.1)
[2016-08-17 08:00] VITALS: BP 147/87; PULSE 72; TEMP 36.9; O2SAT 96
[2016-08-17] MEDS: PANTOprazole SOD 40 MG TAB PO SCH (08:57)
[2016-08-17] MEDS: METOPROLOL TARTRATE 25 MG TAB PO SCH (08:57)
[2016-08-17] MEDS: CITALOPRAM 20 MG TAB PO SCH (08:57)
[2016-08-17] MEDS: NICOTINE 14 MG/24 HR TDSY TD SCH (08:57)
[2016-08-17] MEDS: LOSARTAN POTASSIUM 50 MG TAB PO SCH (08:57)
[2016-08-17] MEDS: THIAMINE HCL 50 MG TAB PO SCH (08:57)
[2016-08-17] MEDS: ASPIRIN 81 MG ECTAB PO SCH (08:57)
[2016-08-17] MEDS ORDERED: MAGNESIUM OXIDE 400 MG TAB PO SCH (09:00)
--- NOTE | 2016-08-17 09:27 | Progress Note ---
Internal Med Progress Note Date of Service: Aug 17, 2016. Provider Documentation: SUBJECTIVE: Patient is seen and examined at bedside. States feeling well. Denies chest pain , palpitations, dizziness. Offers no complaints. Offers no complaints. Continues to be in afib. OBJECTIVE: Vital Signs-as noted below Physical Exam: General Appearance:Moderately built and nourished, no apparent distress Head: normocephalic, Atraumatic Eyes: normal inspection, EOMI, PERRLA Neck: supple, Trachea midline Respiratory/Chest: Normal breath sounds, CTA Cardiovascular: Irregularly irregular, no murmur Abdomen/GI:Soft, Non tender, Bowel sounds present Extremities/Musculoskelatal:normal inspection, no edema Neurologic/Psych:AAOX3, grossly no focal neurological deficits Skin: normal color, warm Lab data as noted below. ASSESSMENT & PLAN: Atrial fibrillation with RVR: Mild troponin elevation likely secondary to afib with RVR. Continue Metoprolol for rate control IV heparin discontinued, Started on coumadin Monitor INR ECHO:Left ventricular wall motion is normal. EF:60-65% TSH:wnl Appreciate cardiology input May require DCCV as outpatient If pt remains in AF after being on therapeutic anticoagulation for at least 1 month. HTN: Continue losartan and metoprolol. 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 Improved Elevated Lipase Denies any GI symptoms prior lab showed elevated lipase S/P IVF Tremors Possible related to anxiety Resolved Anxiety/ Depression continue Celexa Tobacco abuse counseling on smoking cessation nicotine patch H/O Breast Cancer completed chemotherapy stable Follow up as outpatient with DVT px: on heparin drip CODE STATUS: Full code DISPOSITION: Plan to discharge home today Follow up with on 08/18/16 at 12:50pm Follow up with cardiology Renetta Glynn on 08/24/16 at 1:45pm Follow up with Coumadin clinic for INR check and further Coumadin dosage PROCEDURES: ECHO: * Atrial fibrillation with controlled ventricular rate was present during the echocardiogram examination. * The left ventricular wall motion is normal. * Left ventricular systolic function is normal. * The LV Ejection Fraction = 60-65%. * The left atrium is mildly dilated. * There is moderate mitral annular calcification. * There is focal calcification of the tip of the anterior MV leaflet. * There is mild mitral regurgitation. * The mitral regurgitant jet is eccentrically directed. * The mitral regurgitant jet is posteriorly directed, which is consistent with anterior leaflet pathology. * There is mild tricuspid regurgitation. * Borderline to mild pulmonary hypertension is noted. * The calculated pulmonary artery systolic pressure is 37-40 mm Hg. CXR: Mild stable cardiomegaly. Otherwise negative study Vital Signs: Date Time Temp Pulse Resp B/P Pulse Ox O2 Delivery O2 Flow Rate FiO2 08/17/16 08:00 36.9 72 18 147/87 96 08/17/16 04:14 149/83 08/17/16 04:03 36.5 89 18 172/96 97 Room Air 08/17/16 04:00 97 Room Air 08/17/16 00:01 96 Room Air 08/16/16 23:48 36.6 77 18 136/87 96 Room Air 08/16/16 20:00 Room Air 08/16/16 19:40 36.4 103 20 143/104 97 Room Air 08/16/16 16:00 Room Air 08/16/16 15:39 37.1 84 18 94/66 96 Room Air 08/16/16 12:00 Room Air 08/16/16 11:34 36.5 72 18 146/90 96 Lab Results: Results Past 24 Hours Test 08/16/16 12:40 08/17/16 06:21 Range/Units White Blood Count 7.09 6.58 4.8-10.8 K/uL Red Blood Count 3.84 3.82 4.2-5.4 M/uL Hemoglobin 13.1 13.0 12.0-16.0 g/dL Hematocrit 37.4 37.9 37-47 % Mean Corpuscular Volume 97.4 99.2 80-100 fL Mean Corpuscular Hemoglobin 34.1 34.0 25-34 pg Mean Corpuscular Hemoglobin Concent 35.0 34.3 32-36 g/dl Platelet Count 156 142 130-400 K/uL Mean Platelet Volume 9.8 10.4 7.4-10.4 fL Neutrophils (%) (Auto) 68.4 % Lymphocytes (%) (Auto) 22.0 % Monocytes (%) (Auto) 7.6 % Eosinophils (%) (Auto) 0.8 % Basophils (%) (Auto) 1.1 % Neutrophils # (Auto) 4.84 1.4-6.5 K/uL Lymphocytes # (Auto) 1.56 1.2-3.4 K/uL Monocytes # (Auto) 0.54 0.11-0.59 K/uL Eosinophils # (Auto) 0.06 0-0.5 K/uL Basophils # (Auto) 0.08 0-0.2 K/uL RDW Standard Deviation 46.9 47.1 36.4-46.3 fL RDW Coefficient of Variation 13.1 13.0 11.5-14.5 % Immature Granulocyte % (Auto) 0.1 % Immature Granulocyte # (Auto) 0.01 0.00-0.02 K/uL Sodium Level 129 132 136-145 mmol/L Potassium Level 4.2 3.8 3.5-5.1 mmol/L Chloride Level 95 99 98-107 mmol/L Carbon Dioxide Level 23 24 21-32 mmol/L Anion Gap 11.0 9.0 3-11 mmol/L Blood Urea Nitrogen 7 7 7-18 mg/dl Creatinine 0.77 0.37 0.60-1.20 mg/dl Est Creatinine Clear Calc Drug Dose 67.8 128.7 ml/min Estimated GFR () 95.2 131.8 Estimated GFR (Non- 82.2 113.7 BUN/Creatinine Ratio 9.2 18.4 10-20 Random Glucose 181 101 70-99 mg/dl Calcium Level 8.4 9.0 8.5-10.1 mg/dl Magnesium Level 1.7 1.7 1.8-2.4 mg/dl Prothrombin Time 11.9 9.0-12.0 SECONDS Prothromb Time International Ratio 1.1 0.9-1.1
--- NOTE | 2016-08-17 09:47 | Cardiology Follow-Up ---
Subjective General Date of Service: Aug 17, 2016. Chief Complaint: tremors; afib Pt evaluation today including: conversation w/ patient, physical exam, chart review, lab review, review of studies, review of inpatient medication list History of Present Illness Patient feeling well this AM. Tremors improved. Denies chest pain or SOB. No sense of palpitations or dizziness. No orthopnea, PND or edema. Requesting discharge today. Allergies Coded Allergies: Sulfa Antibiotics (Verified Allergy, Mild, "SULFA" -- unknown rxn, 08/15/16 ) Social History Smoking Status: Current Every Day Smoker Hx Tobacco Use In Past Year?: Yes (cig) Hx Alcohol Use - Type And Amou: Yes (every couple of days, 2 beers) Hx Substance Use - Type And Am: No Problem List Medical Problems: (1) Abnormal EKG Status: Acute (2) Atrial fibrillation Status: Acute (3) Mitral valve regurgitation Status: Acute (4) Tachycardia Status: Acute Review of Systems Respiratory: No cough, No dyspnea at rest, No dyspnea on exertion, No hemoptysis, No shortness of breath, No sputum, No wheezing Cardiac: No PND, No chest pain, No edema, No orthopnea, No palpitations Physical Exam Vital Signs Last Vital Signs Documentation Date Time Temp Pulse Resp B/P Pulse Ox O2 Delivery O2 Flow Rate FiO2 08/17/16 04:14 149/83 08/17/16 04:03 36.5 89 18 97 Room Air Physical Exam Constitutional: General Apperance: well-nourished Level of Distress: NAD Ambulation: ambulating normally Psychiatric: Mental Status: active & alert Orientation: to time, to place, to person Head: normocephalic Neck: supple Lungs: Respiratory effort: no dyspnea Auscultation: no wheezing, no rales/crackles Cardiovascular: Heart Auscultation: no murmurs, irregular rate rhythm Abdomen: Bowel Sounds: normal Inspection & Palpation: soft, non-distended Extremities: no edema Assessment and Plan Assessment and Plan IMPRESSION: 61 year old female 1. Persistent atrial fibrillation with elevated ventricular rates on admission -rates improved with addition of metoprolol 25 mg BID -mild troponin elevation of 0.049 consistent with afib RVR. Not indicative of ACS. No wall motion abnormalities on echo. Preserved LV function. -Heparin gtt discontinued. -start anticoagulation with Coumadin 5 mg. Monitor INR. Outpatient anticoagulation clinic follow up will be arranged. -supplement electrolytes -duration of afib is unknown - questionable symptoms since December 2015 vs June 2016 -Would consider outpatient DCCV after appropriate anticoagulation therapy. -echo results reviewed, per report interpreted by Dr. Valdez -- Conclusions -- * Atrial fibrillation with controlled ventricular rate was present during the echocardiogram examination. * The left ventricular wall motion is normal. * Left ventricular systolic function is normal. * The LV Ejection Fraction = 60-65%. * The left atrium is mildly dilated. * There is moderate mitral annular calcification. * There is focal calcification of the tip of the anterior MV leaflet. * There is mild mitral regurgitation. * The mitral regurgitant jet is eccentrically directed. * The mitral regurgitant jet is posteriorly directed, which is consistent with anterior leaflet pathology. * There is mild tricuspid regurgitation. * Borderline to mild pulmonary hypertension is noted. * The calculated pulmonary artery systolic pressure is 37-40 mm Hg. 2. HTN, goal below 140/90 -continue losartan and metoprolol. -titrate as needed 3. Chronic tobacco abuse, with ongoing cough - likely underlying COPD 4. Electrolyte disturbances - hypomag; hyponatremia -added daily mag ox -monitor 5. Alcohol use with chart history of alcohol dependence - patient admits to 3 beers daily, likely ocntributing to electrolyte disturbances Case discussed with Dr. Valdez. Stable cardiac signs/symptoms for discharge today. Discussed with hospitalist. Anticoagulation clinic referral placed. Patient will be contacted for f/u labs. 1-2 week cardio f/u also requested and patient will be contacted with this appointment. CARDIOLOGY ATTENDING ADDENDUM: . Case was discussed with Ameya Glynn PA-C. Agree with Renetta Glynn PA-C's findings and plans as documented above. Patient was discharged before she was seen by the undersigned. Agree with disposition as above. Laboratory Results Last 24 Hours Test 08/16/16 12:40 08/17/16 06:21 White Blood Count 7.09 K/uL 6.58 K/uL Red Blood Count 3.84 M/uL 3.82 M/uL Hemoglobin 13.1 g/dL 13.0 g/dL Hematocrit 37.4 % 37.9 % Mean Corpuscular Volume 97.4 fL 99.2 fL Mean Corpuscular Hemoglobin 34.1 pg 34.0 pg Mean Corpuscular Hemoglobin Concent 35.0 g/dl 34.3 g/dl Platelet Count 156 K/uL 142 K/uL Mean Platelet Volume 9.8 fL 10.4 fL Neutrophils (%) (Auto) 68.4 % Lymphocytes (%) (Auto) 22.0 % Monocytes (%) (Auto) 7.6 % Eosinophils (%) (Auto) 0.8 % Basophils (%) (Auto) 1.1 % Neutrophils # (Auto) 4.84 K/uL Lymphocytes # (Auto) 1.56 K/uL Monocytes # (Auto) 0.54 K/uL Eosinophils # (Auto) 0.06 K/uL Basophils # (Auto) 0.08 K/uL RDW Standard Deviation 46.9 fL 47.1 fL RDW Coefficient of Variation 13.1 % 13.0 % Immature Granulocyte % (Auto) 0.1 % Immature Granulocyte # (Auto) 0.01 K/uL Sodium Level 129 mmol/L 132 mmol/L Potassium Level 4.2 mmol/L 3.8 mmol/L Chloride Level 95 mmol/L 99 mmol/L Carbon Dioxide Level 23 mmol/L 24 mmol/L Anion Gap 11.0 mmol/L 9.0 mmol/L Blood Urea Nitrogen 7 mg/dl 7 mg/dl Creatinine 0.77 mg/dl 0.37 mg/dl Est Creatinine Clear Calc Drug Dose 67.8 ml/min 128.7 ml/min Estimated GFR () 95.2 131.8 Estimated GFR (Non- 82.2 113.7 BUN/Creatinine Ratio 9.2 18.4 Random Glucose 181 mg/dl 101 mg/dl Calcium Level 8.4 mg/dl 9.0 mg/dl Magnesium Level 1.7 mg/dl 1.7 mg/dl Prothrombin Time 11.9 SECONDS Prothromb Time International Ratio 1.1
[2016-08-17] MEDS ORDERED: MGNO400 PO (10:02)
[2016-08-17] MEDS ORDERED: CMD25 PO (10:02)
[2016-08-17] MEDS ORDERED: LPR25 PO (10:02)
--- NOTE | 2016-08-17 10:07 | Discharge Summary ---
Discharge Summary Date of Service Aug 17, 2016. Discharge Summary Admission Date: Aug 15, 2016 at 20:26 Discharge Date: Aug 17, 2016 Discharge Disposition: Home Principal Diagnosis: Afib with RVR Procedures: CXR: Mild stable cardiomegaly. Otherwise negative study Consultations: Cardiology Pending Studies/Follow-Up: Follow up with on 08/18/16 at 12:50pm Follow up with cardiology Renetta Glynn on 08/24/16 at 1:45pm Follow up with Coumadin clinic for INR check and further Coumadin dosage Medication Reconciliation New Medications: Warfarin Sod (Coumadin) 2.5 Mg Tab 5 MG PO DAILY, #90 TABS Start taking 5 mg oral daily. Get PT/INR checked per coumadin clinic and further dosage based on PT/INR results Magnesium Oxide (Magnesium-Oxide) 400 Mg Tab 400 MG PO BID for 30 Days, #60 TAB Metoprolol Tartrate (Lopressor) 25 Mg Tab 25 MG PO BID for 30 Days, #60 TAB Continued Medications: Albuterol Sulfate (Proair Respiclick) 108 Mcg/Act Aer 2 PUFFS INH Q4 PRN for WHEEZING/COUGH Aspirin (Aspirin Ec) 81 Mg Tab 81 MG PO QAM Citalopram Hydrobromide (Celexa) 20 Mg Tab 20 MG PO QAM, TAB Losartan Potassium (Cozaar) 50 Mg Tab 50 MG PO QAM, #90 Thiamine Hcl (Vitamin B-1) 50 Mg Tab 100 MG PO QAM, TAB Tramadol (Ultram) 50 Mg Tab 1 TAB PO HS PRN for Pain for 30 Days, TAB Discontinued Medications: Atenolol (Tenormin) 25 Mg Tab 25 MG PO QAM, TAB Admission Information HPI (per Admitting provider): 61 year old female with PMH of Paroxysmal AFIB, Dyslipidemia, Tobacco abuse, HTN, breast ca, depression and anxiety presents to ED after she was seen at her PCP office and sent for Afib. Pt said that since December she has been having tremor. she said in the last 2 days the shakiness got worst and she went to see her pcp. She said that she has been coughing a lot associated with white sputum. Pt said that the last time she was in Afib was Mar 2015 while she was admitted. she said that she converted back to sinus rhythm without any cardiovert. She said that she feels a pounding in her heart. Pt is very anxious. She denies any chest pain, palpitation, fever, dizziness and sob. she said that she feels chills and sweat lately at night. Physical Exam (per Admitting): General Appearance: WD/WN, no apparent distress Head: normocephalic, atraumatic Eyes: normal inspection, PERRL, EOMI ENT: normal ENT inspection, hearing grossly normal Neck: supple, no JVD, no carotid bruits Respiratory/Chest: chest non-tender, lungs clear, normal breath sounds, no respiratory distress, no accessory muscle use Cardiovascular: no JVD, + tachycardia, + irregularly irregular Abdomen/GI: normal bowel sounds, non tender, soft Back: normal inspection, no CVA tenderness, normal range of motion Extremities/Musculoskelatal: normal inspection, no calf tenderness Neurologic/Psych: final tester II-XII nml as tested, no motor/sensory deficits, alert , oriented x 3 Skin: normal color, warm/dry Hospital Course Atrial fibrillation with RVR: Mild troponin elevation likely secondary to afib with RVR. Continue Metoprolol for rate control IV heparin discontinued, Started on coumadin Monitor INR ECHO:Left ventricular wall motion is normal. EF:60-65% TSH:wnl Appreciate cardiology input May require DCCV as outpatient If pt remains in AF after being on therapeutic anticoagulation for at least 1 month. HTN: Continue losartan and metoprolol. 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 Elevated Lipase Denies any GI symptoms prior lab showed elevated lipase S/P IVF Tremors Possible related to anxiety Resolved Anxiety/ Depression continue Celexa Tobacco abuse counseling on smoking cessation nicotine patch H/O Breast Cancer completed chemotherapy stable Follow up as outpatient with DVT px: on heparin drip CODE STATUS: Full code DISPOSITION: Plan to discharge home today Follow up with on 08/18/16 at 12:50pm Follow up with cardiology Renetta Glynn on 08/24/16 at 1:45pm Follow up with Coumadin clinic for INR check and further Coumadin dosage PROCEDURES: ECHO: * Atrial fibrillation with controlled ventricular rate was present during the echocardiogram examination. * The left ventricular wall motion is normal. * Left ventricular systolic function is normal. * The LV Ejection Fraction = 60-65%. * The left atrium is mildly dilated. * There is moderate mitral annular calcification. * There is focal calcification of the tip of the anterior MV leaflet. * There is mild mitral regurgitation. * The mitral regurgitant jet is eccentrically directed. * The mitral regurgitant jet is posteriorly directed, which is consistent with anterior leaflet pathology. * There is mild tricuspid regurgitation. * Borderline to mild pulmonary hypertension is noted. * The calculated pulmonary artery systolic pressure is 37-40 mm Hg. CXR: Mild stable cardiomegaly. Otherwise negative study Total time spent on discharge = This includes examination of the patient, discharge planning, medication reconciliation, and communication with other providers. Discharge Instructions Discharge Instructions Date of Service Aug 17, 2016. Admission Reason for Admission: AFIB Discharge Discharge Diagnosis / Problem: Afib with RVR Discharge Goals Goal(s): Decrease discomfort, Improve function Activity Recommendations Activity Limitations: resume your previous activity Exercise/Sports Limitations: as tolerated . Instructions / Follow-Up Instructions / Follow-Up Follow up with on 08/18/16 at 12:50pm Follow up with cardiology Renetta Glynn on 08/24/16 at 1:45pm Follow up with Coumadin clinic for INR check and further Coumadin dosage Seek immediate medical help if your symptoms reoccur or worsen or if you notice any bleeding Current Hospital Diet Patient's current hospital diet: AHA Diet (Heart Healthy) Discharge Diet Recommended Diet: AHA Diet (Heart Healthy) Pending Studies Studies pending at discharge: no Laboratory Results Lipid Panel Test 08/16/16 04:15 Range/Units Triglycerides Level 61 0-150 mg/dl Cholesterol Level 214 H 0-200 mg/dl HDL Cholesterol 79 mg/dl Cholesterol/HDL Ratio 2.7 LDL Cholesterol, Calculated 123 mg/dl Medical Emergencies . Who to Call and When: Medical Emergencies: If at any time you feel your situation is an emergency, please call 911 immediately. . Non-Emergent Contact Non-Emergency issues call your: Primary Care Provider, Pile Operator Call Non-Emergent contact if: you have a fever, your pain is not controlled, your pain is worsening, your pain is unusual for you, you have any medication questions . . "Provider Documentation" section prepared by Goran Hardy. VTE Core Measure Inpt VTE Proph given/why not?: Unfractionated heparin SQ, Warfarin (Coumadin)
[2016-08-17 10:15] VITALS: BP 147/87; PULSE 72; TEMP 36.9; O2SAT 96
[2016-09-17] MEDS ORDERED: CMD125 PO (16:53)
[2016-09-17] MEDS ORDERED: ENOX100I SQ (16:53)
[2016-09-17] MEDS ORDERED: LEVO750T23 PO (16:53)
[2016-09-17] MEDS ORDERED: PRED10TA PO (16:57)
[2016-10-29] MEDS ORDERED: ERGO1CAP41 PO (11:57)
== END 2016-08-17 11:14 | disposition home or self-care (01) | DRG 309 ==
LOC: ENRESERVTM → ENRESERVDT → C.EDB 17:08 → C.2E 20:26
PROVIDERS: ADMIT Internal Medicine; ATTEND Internal Medicine
DX: I48.1 Persistent atrial fibrillation (principal); E87.1 Hypo-osmolality and hyponatremia; I10 Essential (primary) hypertension; E78.00 Pure hypercholesterolemia, unspecified; Z83.3 Family history of diabetes mellitus; F17.210 Nicotine dependence, cigarettes, uncomplicated; Z88.2 Allergy status to sulfonamides; J44.9 Chronic obstructive pulmonary disease, unspecified; I48.0 Paroxysmal atrial fibrillation; E83.42 Hypomagnesemia; F10.20 Alcohol dependence, uncomplicated; I27.2 Other secondary pulmonary hypertension; Z85.3 Personal history of malignant neoplasm of breast

== ENCOUNTER 2016-09-15 16:40 | Observation (INO) | payer OTHER ==
[~2016-09-15] VITALS: Ht 160 cm; Wt 65.8 kg
[~2016-09-15 16:40] MED LIST changes: +ALBU18002 INH; -ALBU1AER9 INH; +ASPI81TA28 PO; -ATEN-173 PO; +CMD25 PO; -LISI-729 PO; -LORA-741 PO; +LOSA50TA54 PO; +LPR25 PO; +MGNO400 PO; -MULT-506 PO; -ONDA8TAB7 PO; -PROC1TAB5 PO
--- NOTE | 2016-09-15 17:02 | EMERGENCY ROOM VISIT NOTE ---
History First contact with patient: 16:48 Chief Complaint: CHEST PAIN Stated Complaint: CARDIAC ASSESSMENT Nursing Triage Summary: Triage note: pt reports "my heart feels funny, it feels like there is a metal plate behind my heart and everytime i breathe it hurts." pt reports shortness of breath. pt reports hx of a-fib "this is not what it feels like." pt smells of alcohol odor in triage - pt reports she had three beers today between 1200 and 1400 when asked. pt denies hx of alcoholism. History of Present Illness The patient is a 61 year old female who presents to the Emergency Room via private vehicle accompanied by with complaints of "chest pain". The patient states that she was recently diagnosed with atrial fibrillation, with a most recent INR of 5.6 obtained this past Monday while taking Coumadin. This level was obtained last week. She presents today with sudden onset of chest pain with inspiration at 2 PM, while at home watching television. She states the pain is only with inspiration and is in the substernal region radiating to the bilateral shoulders. She rates the inspiratory pain as an 8/ 10. She denies having this before, and denies history of blood clots. The patient does smoke and has a history of breast cancer. She also had a recent nuclear stress test performed this past . As per patient there were no clots noted. Review of Systems A complete 10-point Review of Systems was discussed with the patient, with pertinent positives and negatives listed in the History of Present Illness. All remaining Review of Systems questions can be considered negative unless otherwise specified. 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 (4) Depression with anxiety (5) HTN (hypertension) (6) Tobacco use disorder Surgical Problems: (1) H/O lumpectomy (2) S/P section (3) S/P lymph node biopsy (4) S/P partial mastectomy (5) S/p placement of a-port (6) S/P tubal ligation Family History Diabetes mellitus FATHER FH: atrial fibrillation MOTHER FH: breast cancer AUNT SISTER Heart disease Hypertension Pacemaker MOTHER Social History Smoking Status: Current Every Day Smoker Alcohol Use: heavy Drug Use: none Marital Status: Housing Status: lives with significant other Occupation Status: retired Current/Historical Medications Scheduled Citalopram Hydrobromide (Celexa), 20 MG PO QAM Magnesium Oxide (Mag-Ox), 400 MG PO QAM Metoprolol Tartrate (Lopressor) (Lopressor), 75 MG PO BID Thiamine Hcl (Vitamin B-1), 100 MG PO QAM Warfarin Sodium (Warfarin Sodium), 2.5 MG PO QAM Scheduled PRN Albuterol Sulfate (Proair Respiclick), 2 PUFFS INH Q4 PRN for WHEEZING/COUGH Lorazepam (Ativan), 1 MG PO Q8H PRN for Anxiety Allergies Coded Allergies: Sulfa Antibiotics (Verified Allergy, Mild, "SULFA" -- unknown rxn, 09/15/16 ) Physical Exam Vital Signs Date Time Temp Pulse Resp B/P Pulse Ox O2 Delivery O2 Flow Rate FiO2 09/15/16 20:50 94 20 94 09/15/16 20:30 107/70 09/15/16 20:20 94 18 92 09/15/16 20:14 93 20 109/69 94 Room Air 09/15/16 19:07 104 09/15/16 19:01 97 28 109/69 93 Room Air 09/15/16 17:26 79 34 110/69 93 Room Air 09/15/16 17:20 93 Room Air 09/15/16 17:20 93 Room Air 09/15/16 16:43 36.7 84 20 106/62 90 Room Air Physical Exam VITAL SIGNS - Vital signs and nursing notes were reviewed. Upon presentation, the patient is afebrile, attentive, non-tachycardic and is saturating on room air at 90%. GENERAL -61-year-old female appearing her stated age who is in no acute distress. The patient is lying supine upon my actions in the examination room, and is experiencing pain upon inspiration. She speaks in full sentences. Communicates well with provider and answers questions appropriately. SKIN - Without rashes. No petechial rashes or breaks in the integument. HEAD - NC/AT. EYES - PERRL with EOMI bilaterally. Sclera anicteric. Palpebral conjunctiva pink and moist with no injection noted. EARS - No deformities of external structures noted on gross examination bilaterally. NOSE - Midline and without cyanosis. No epistaxis or purulent drainage noted. MOUTH/OROPHARYNX - Without perioral cyanosis. Buccal mucosa pink and moist and without leukoplakia. Tongue midline with equal elevation of palate bilaterally. No tonsillar hypertrophy, erythema, or exudates noted. Fair dentition noted. NECK - Neck with FROM. Supple to palpation. No lymphadenopathy noted. No nuchal rigidity. LUNGS - Chest wall symmetric without accessory muscle use, intercostals retractions, or central cyanosis. Normal vesicular breath sounds CTA B/L. No wheezes, rales, or rhonchi appreciated. CARDIAC - RRR with S1/S2. No murmur, rubs, or gallops appreciated. The chest pain and shoulder pain is not reproducible palpation. ABDOMEN - Abdominal contour without pulsations or visible masses. BS normoactive all four quadrants. No tenderness, palpable masses, hepatosplenomegaly, or ascites noted. EXTREMITIES - No clubbing or peripheral cyanosis. No pretibial edema present. + 5/5 strength noted in UE/LE bilaterally. NEUROLOGIC - Cranial nerves II through XII grossly intact. PSYCH - Pt is very pleasant and interacts well with examiner. Medical Decision & Procedures ER Provider Diagnostic Interpretation: CHEST ONE VIEW PORTABLE CLINICAL HISTORY: Dyspnea, atypical chest pain COMPARISON STUDY: 08/15/2016 FINDINGS: The heart is enlarged. There is subtle airspace opacities within the axillary portion left chest. The findings are consistent with a subtle pneumonitis. Clinical and radiographic follow-up is recommended. There are no significant pleural effusions. There is no overt failure.[ IMPRESSION: 1. Cardiomegaly 2. Interval development of subtle airspace opacities within the axillary portion of the left chest, consistent with a pneumonitis. Clinical and radiographic follow-up is recommended. Electronically signed by: Tyree Vidal M.D. 09/15/2016 5:17 PM Dictated Date/Time: 09/15/2016 5:15 PM CHEST COMBO ANGIO DISSECTION CLINICAL HISTORY: Atypical chest pain and shortness of breath COMPARISON STUDY: Chest x-ray dated 09/15/2016 FINDINGS: Unenhanced images were obtained through the thorax. Patient was then scanned in a dynamic helical fashion during intravenous administration 116 cc of Optiray 320. MIP imaging was performed. Unenhanced images reveal no evidence of acute thoracic hematoma. Postcontrast images reveal no evidence of thoracic aortic aneurysm. There is no evidence of thoracic aortic dissection The heart is enlarged. There is a small pericardial effusion. There are no pulmonary artery filling defects to indicate acute pulmonary embolism. There are no pleural effusions. There is subpleural airspace opacities within the left upper lobe. The distribution is suggestive of a radiation pneumonitis. Please correlate clinically. There is a right lower lobe bronchial wall thickening and mucous plugging. There are bibasal atelectatic changes. There are no pathologically enlarged mediastinal, hilar, or axillary lymph nodes. IMPRESSION: 1. No evidence of thoracic aortic aneurysm or dissection 2. No evidence of acute pulmonary embolism 3. Cardiomegaly and small pericardial effusion 4. Subpleural airspace opacities in the left upper lobe. The findings are highly suggestive of radiation pneumonitis 5. Right lower lobe bronchial wall thickening and mucous plugging 6. Bibasilar atelectasis Electronically signed by: Tyree Vidal M.D. 09/15/2016 8:17 PM Dictated Date/Time: 09/15/2016 8:12 PM Laboratory Results Test 09/15/16 00:00 09/15/16 17:17 09/15/16 19:09 09/15/16 19:45 Urine Osmolality 357 mOms/kg (500-800) Immature Granulocyte % (Auto) 0.3 % White Blood Count 12.72 K/uL (4.8-10.8) Red Blood Count 4.53 M/uL (4.2-5.4) Hemoglobin 15.2 g/dL (12.0-16.0) Hematocrit 42.6 % (37-47) Mean Corpuscular Volume 94.0 fL (80-100) Mean Corpuscular Hemoglobin 33.6 pg (25-34) Mean Corpuscular Hemoglobin Concent 35.7 g/dl (32-36) Platelet Count 146 K/uL (130-400) Mean Platelet Volume 9.4 fL (7.4-10.4) Neutrophils (%) (Auto) 81.5 % Lymphocytes (%) (Auto) 9.8 % Monocytes (%) (Auto) 7.9 % Eosinophils (%) (Auto) 0.3 % Basophils (%) (Auto) 0.2 % Neutrophils # (Auto) 10.35 K/uL (1.4-6.5) Lymphocytes # (Auto) 1.25 K/uL (1.2-3.4) Monocytes # (Auto) 1.01 K/uL (0.11-0.59) Eosinophils # (Auto) 0.04 K/uL (0-0.5) Basophils # (Auto) 0.03 K/uL (0-0.2) Immature Granulocyte # (Auto) 0.04 K/uL (0.00-0.02) Activated Partial Thromboplast Time 55.3 SECONDS (21.0-31.0) Partial Thromboplastin Ratio 2.1 Bedside D-Dimer 273 ng/mlFEU (0-450) Osmolality 325 mOsm/kg (280-300) Total Bilirubin 0.7 mg/dl (0.2-1) Aspartate Amino Transf (AST/SGOT) 63 U/L (15-37) Alanine Aminotransferase (ALT/SGPT) 53 U/L (12-78) Alkaline Phosphatase 103 U/L (45-117) Total Creatine Kinase 140 U/L (26-192) ZR-Msi-H-Type Natriuretic Peptide 675 pg/ml (0-900) Total Protein 7.6 gm/dl (6.4-8.2) Albumin 3.9 gm/dl (3.4-5.0) Globulin 3.7 gm/dl (2.5-4.0) Albumin/Globulin Ratio 1.1 (0.9-2) Lipase 495 U/L (73-393) Thyroid Stimulating Hormone (TSH) 2.760 uIu/ml (0.300-4.500) Bedside Troponin I 0.020 ng/ml (0-0.045) Ethyl Alcohol mg/dL 150.0 mg/dl (0-3) Medications Administered Medications (Trade) Dose Ordered Sig/Ton Route Start Time Stop Time Status Last Admin Dose Admin Morphine Sulfate (MoRPHine SULFATE INJ) 4 mg NOW STAT IV 09/15/16 19:14 09/15/16 19:16 DC 09/15/16 19:39 4 MG Phytonadione (Mephyton Tab) 2.5 mg NOW STAT PO 09/15/16 20:31 09/15/16 20:32 DC 09/15/16 20:31 2.5 MG Medical Decision Patient was seen and evaluated as above. After obtaining a thorough history and physical examination IV access was initiated and the above workup was performed. Patient presents to us today with chest pain, which is worse with inspiration. Currently there is no chest pain at rest. She does have a history of atrial fibrillation. There is also an odor of alcohol in the room upon examination. Patient states she drinks alcohol daily. Patient has a leukocytosis of 12.7-1 CBC, no anemia is noted. Her INR is 6.6. [id number] d-dimer is 273. Her sodium is 127, chloride is low at 95, creatinine is low at 0.49. Calcium low 8.4. Magnesium low 1.7. AST high at 63. Lipase high at 495. Lipase appears to be chronically elevated. TSH is 2.760. This is normal. Her alcohol level was found to be 150. Patient's initial troponin was 0.040 and was rechecked and was found to be 0.040. Her EKG does reveal atrial fibrillation, without evidence of ST segment elevation or ectopy. She is currently anticoagulated but is supratherapeutic. She has at this time a significantly low sodium, atrial fibrillation, chest pain with near positive troponin, but is still considered within normal limits, elevated lipase and chest pain. Chest 1 view unremarkable for acute process however radiation pneumonitis is suspected. CT was performed and verified this concern. No evidence of dissection. This was ordered because the patient had inspiratory chest pain that radiated to her shoulder blades with an INR of 6.6. By was also concern for pneumomediastinum as well as other intrathoracic bleeding ailments. The patient was then informed that I would like to admit her to the hospital for further evaluation and management. I discussed the case with my attending, and subsequently the inpatient hospitalist team. Patient agreed to this. Please refer to further evaluation and documentation regarding her stay. I do believe that admission is warranted to correct her low sodium, as well as further evaluate her for ACS In the evaluation shortness patient the following differential diagnoses were entertained: NJ, ACS, pneumomediastinum, hemothorax, pneumothorax, NJ, PE, supratherapeutic INR, pancreatitis, among others. Impression Primary Impression: Chest pain on respiration Additional Impressions: Hyponatremia Alcohol use Supratherapeutic INR Afib Departure Information Dispostion Admitted as an inpatient Condition FAIR Referrals Julius Min M.D. (PCP) Patient Instructions [facility] Problem Qualifiers
--- NOTE | 2016-09-15 17:18 | DIAGNOSTIC IMAGING REPORT ---
CHEST ONE VIEW PORTABLE CLINICAL HISTORY: Dyspnea, atypical chest pain COMPARISON STUDY: 08/15/2016 FINDINGS: The heart is enlarged. There is subtle airspace opacities within the axillary portion left chest. The findings are consistent with a subtle pneumonitis. Clinical and radiographic follow-up is recommended. There are no significant pleural effusions. There is no overt failure.[ IMPRESSION: 1. Cardiomegaly 2. Interval development of subtle airspace opacities within the axillary portion of the left chest, consistent with a pneumonitis. Clinical and radiographic follow-up is recommended. Electronically signed by: Tyree Vidal M.D. 09/15/2016 5:17 PM Dictated Date/Time: 09/15/2016 5:15 PM
[2016-09-15 17:29] LABS: BASO % 0.2 %; BASO ABS # 0.03 K/uL (0-0.2); COMPLETE YES; EOS % 0.3 %; HEMATOCRIT 42.6 % (37-47); IG% 0.3 %; LYMPH % 9.8 %; LYMPH ABS # 1.25 K/uL (1.2-3.4); MEAN CORPUSCULAR HEMOGLOBIN 33.6 pg (25-34); MEAN CORPUSCULAR HGB CONC 35.7 g/dl (32-36); MEAN PLATELET VOLUME 9.4 fL (7.4-10.4); MONO % 7.9 %; NEUT % 81.5 %; PLATELET COUNT 146 K/uL (130-400); RED BLOOD COUNT 4.53 M/uL (4.2-5.4); WHITE BLOOD COUNT 12.72 K/uL (4.8-10.8)
[2016-09-15 17:40] LABS: POINT OF CARE TROPONIN I 0.04 ng/ml (0-0.045)
[2016-09-15 17:46] LABS: BUN/CREATININE RATIO 14.9 (10-20); CALCIUM 8.4 mg/dl (8.5-10.1); CREATININE 0.49 mg/dl (0.60-1.20); MAGNESIUM 1.7 mg/dl (1.8-2.4); PARTIAL THROMBOPLASTIN RATIO 2.1; POTASSIUM 4.1 mmol/L (3.5-5.1); PROTHROMBIN TIME (PATIENT) 75.8 SECONDS (9.0-12.0)
[2016-09-15 17:49] LABS: INR 6.6 (0.9-1.1)
[2016-09-15 17:57] LABS: ALB/GLOB RATIO 1.1 (0.9-2); CKMB/CK RATIO 1.9 (0-3.0); THYROID STIMULATING HORMONE 2.76 uIu/ml (0.300-4.500)
[2016-09-15] MEDS ORDERED: METO50TA16 PO (18:11)
[2016-09-15] MEDS ORDERED: MAGN400T6 PO (18:15)
[2016-09-15] MEDS ORDERED: WARF-246 PO (18:15)
[2016-09-15] MEDS ORDERED: MoRPHine SULFATE 4 MG/ML 1 ML CARP\\VIAL IV STA (19:14)
[2016-09-15] MEDS ORDERED: OPTIRAY 320 IV PRN (19:15)
--- NOTE | 2016-09-15 20:18 | DIAGNOSTIC IMAGING REPORT ---
CHEST COMBO ANGIO DISSECTION CLINICAL HISTORY: Atypical chest pain and shortness of breath COMPARISON STUDY: Chest x-ray dated 09/15/2016 FINDINGS: Unenhanced images were obtained through the thorax. Patient was then scanned in a dynamic helical fashion during intravenous administration 116 cc of Optiray 320. MIP imaging was performed. Unenhanced images reveal no evidence of acute thoracic hematoma. Postcontrast images reveal no evidence of thoracic aortic aneurysm. There is no evidence of thoracic aortic dissection The heart is enlarged. There is a small pericardial effusion. There are no pulmonary artery filling defects to indicate acute pulmonary embolism. There are no pleural effusions. There is subpleural airspace opacities within the left upper lobe. The distribution is suggestive of a radiation pneumonitis. Please correlate clinically. There is a right lower lobe bronchial wall thickening and mucous plugging. There are bibasal atelectatic changes. There are no pathologically enlarged mediastinal, hilar, or axillary lymph nodes. IMPRESSION: 1. No evidence of thoracic aortic aneurysm or dissection 2. No evidence of acute pulmonary embolism 3. Cardiomegaly and small pericardial effusion 4. Subpleural airspace opacities in the left upper lobe. The findings are highly suggestive of radiation pneumonitis 5. Right lower lobe bronchial wall thickening and mucous plugging 6. Bibasilar atelectasis Electronically signed by: Tyree Vidal M.D. 09/15/2016 8:17 PM Dictated Date/Time: 09/15/2016 8:12 PM
[2016-09-15] MEDS ORDERED: PHYTONADIONE 5 MG TAB PO STA (20:31)
[2016-09-15] MEDS ORDERED: ACETAMINOPHEN 325 MG TAB PO PRN (21:15)
[2016-09-15] MEDS ORDERED: ONDANSETRON INJ 2 MG/ML 2 ML VIAL IV PRN (21:15)
[2016-09-15] MEDS ORDERED: ATV/1 PO (21:25)
[2016-09-15] MEDS ORDERED: LORAZEPAM 1 MG TAB PO PRN (21:30)
[2016-09-15] MEDS ORDERED: IV FLUIDS COMPLETED PRN (21:30)
[2016-09-15 22:13] VITALS: BP 111/61; PULSE 95; TEMP 36.9; O2SAT 91
[2016-09-15 22:19] VITALS: BP 111/61; PULSE 95; TEMP 36.9; O2SAT 91; Ht 160 cm; Wt 65.8 kg
--- NOTE | 2016-09-15 22:21 | History and Physical ---
History & Physical Date & Time of Service: Sep 15, 2016 at 22:00 Chief Complaint: Chest Pain Primary Care Physician: Julius Min M.D. History of Present Illness 61 year old female who presents to the ER with chest pain. Patient was admitted to [facility] about one month ago for afib with RVR. Patient was started on beta radha therapy and Coumadin. She is scheduled to have a cardioversion next week. Patient reports that while sitting on the cough watching TV today she developed chest pain her her left breast. She reports it is brought on with a deep breath. She describes the pain as sharp and severe. Sometimes radiates into the back. She reports associated shortness of breath with the pain. She reports she frequently feels palpitations from the afib. She denies fever or chills. She has a chronic cough which is unchanged. She denies abdominal pain or diarrhea. She reports some occasional nausea and vomiting in the morning from PND. She denies urinary symptoms. In the ER, patient had a CT chest that is showing possible radiation pneumonitis and small pericardial effusion. Vitals are stable. 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 Permanent Comment: Abnormal left breast mammogram Status post core needle biopsy 03/04/2015 Invasive carcinoma grade 2 Estrogen receptor negative, progesterone receptor negative, HER-2/talita negative Status post lumpectomy and sentinel lymph node biopsy 04/01/2015 Stage pT1c [id number] G3 Lymphovascular invasion Status post completion of systemic chemotherapy with Adriamycin and Cytoxan for 4 cycles followed by weekly Taxol for 12 weeks completed 10/16/2015 Status post completion of radiation therapy 12/28/2015 received 6240 cGy Status: Chronic (4) Depression with anxiety Status: Chronic (5) HTN (hypertension) Status: Chronic (6) Tobacco use disorder Status: Chronic Surgical Problems: (1) H/O lumpectomy Status: Resolved (2) S/P section Status: Chronic (3) S/P lymph node biopsy Status: Chronic (4) S/P partial mastectomy Status: Chronic (5) S/p placement of a-port Status: Chronic (6) S/P tubal ligation Status: Chronic Family History Diabetes mellitus FATHER FH: atrial fibrillation MOTHER FH: breast cancer AUNT SISTER Heart disease Hypertension Pacemaker MOTHER Social History Smoking Status: Current Every Day Smoker Alcohol Use: 3-4 beers/day Immunizations History of Influenza Vaccine: Yes Influenza Vaccine Date: Mar 30, 2016 History of Tetanus Vaccine?: Yes Tetanus Immunization Date: Jan 30, 2007 History of Pneumococcal: Yes Pneumococcal Date: Dec 27, 2011 Multi-Drug Resistant Organisms History of MDRO: No Allergies Coded Allergies: Sulfa Antibiotics (Verified Allergy, Mild, "SULFA" -- unknown rxn, 09/15/16 ) Home Medications Scheduled Citalopram Hydrobromide (Celexa), 20 MG PO QAM Magnesium Oxide (Mag-Ox), 400 MG PO QAM Metoprolol Tartrate (Lopressor) (Lopressor), 75 MG PO BID Thiamine Hcl (Vitamin B-1), 100 MG PO QAM Warfarin Sodium (Warfarin Sodium), 2.5 MG PO QAM Scheduled PRN Albuterol Sulfate (Proair Respiclick), 2 PUFFS INH Q4 PRN for WHEEZING/COUGH Lorazepam (Ativan), 1 MG PO Q8H PRN for Anxiety Review of Systems ROS per HPI, all other systems reviewed and negative Physical Exam Vital Signs Date Time Temp Pulse Resp B/P Pulse Ox O2 Delivery O2 Flow Rate FiO2 09/15/16 21:34 126/70 09/15/16 21:20 87 25 92 09/15/16 20:50 94 20 94 09/15/16 20:30 107/70 09/15/16 20:20 94 18 92 09/15/16 20:14 93 20 109/69 94 Room Air 09/15/16 19:07 104 09/15/16 19:01 97 28 109/69 93 Room Air 09/15/16 17:26 79 34 110/69 93 Room Air 09/15/16 17:20 93 Room Air 09/15/16 17:20 93 Room Air 09/15/16 16:43 36.7 84 20 106/62 90 Room Air General Appearance: + mild distress (due to pain, also appears anxious) Head: normocephalic Eyes: normal inspection ENT: hearing grossly normal Neck: supple, no JVD Respiratory/Chest: chest non-tender, lungs clear, normal breath sounds, no respiratory distress Cardiovascular: regular rate, rhythm, no edema, normal peripheral pulses Abdomen/GI: normal bowel sounds, non tender, soft Extremities/Musculoskelatal: normal inspection, no calf tenderness Neurologic/Psych: no motor/sensory deficits, alert, normal mood/affect, oriented x 3 Skin: normal color, warm/dry Diagnostics Laboratory Results Results Past 24 Hours Test 09/15/16 17:17 09/15/16 19:09 09/15/16 19:45 Range/Units White Blood Count 12.72 4.8-10.8 K/uL Red Blood Count 4.53 4.2-5.4 M/uL Hemoglobin 15.2 12.0-16.0 g/dL Hematocrit 42.6 37-47 % Mean Corpuscular Volume 94.0 80-100 fL Mean Corpuscular Hemoglobin 33.6 25-34 pg Mean Corpuscular Hemoglobin Concent 35.7 32-36 g/dl Platelet Count 146 130-400 K/uL Mean Platelet Volume 9.4 7.4-10.4 fL Neutrophils (%) (Auto) 81.5 % Lymphocytes (%) (Auto) 9.8 % Monocytes (%) (Auto) 7.9 % Eosinophils (%) (Auto) 0.3 % Basophils (%) (Auto) 0.2 % Neutrophils # (Auto) 10.35 1.4-6.5 K/uL Lymphocytes # (Auto) 1.25 1.2-3.4 K/uL Monocytes # (Auto) 1.01 0.11-0.59 K/uL Eosinophils # (Auto) 0.04 0-0.5 K/uL Basophils # (Auto) 0.03 0-0.2 K/uL RDW Standard Deviation 44.0 36.4-46.3 fL RDW Coefficient of Variation 12.8 11.5-14.5 % Immature Granulocyte % (Auto) 0.3 % Immature Granulocyte # (Auto) 0.04 0.00-0.02 K/uL Prothrombin Time 75.8 9.0-12.0 SECONDS Prothromb Time International Ratio 6.6 0.9-1.1 Activated Partial Thromboplast Time 55.3 21.0-31.0 SECONDS Partial Thromboplastin Ratio 2.1 Bedside D-Dimer 273 0-450 ng/mlFEU Sodium Level 127 136-145 mmol/L Potassium Level 4.1 3.5-5.1 mmol/L Chloride Level 95 98-107 mmol/L Carbon Dioxide Level 22 21-32 mmol/L Anion Gap 10.0 3-11 mmol/L Blood Urea Nitrogen 7 7-18 mg/dl Creatinine 0.49 0.60-1.20 mg/dl Est Creatinine Clear Calc Drug Dose 108.2 ml/min Estimated GFR () 120.2 Estimated GFR (Non- 103.7 BUN/Creatinine Ratio 14.9 10-20 Random Glucose 115 70-99 mg/dl Osmolality 325 280-300 mOsm/kg Calcium Level 8.4 8.5-10.1 mg/dl Magnesium Level 1.7 1.8-2.4 mg/dl Total Bilirubin 0.7 0.2-1 mg/dl Aspartate Amino Transf (AST/SGOT) 63 15-37 U/L Alanine Aminotransferase (ALT/SGPT) 53 12-78 U/L Alkaline Phosphatase 103 45-117 U/L Total Creatine Kinase 140 26-192 U/L Creatine Kinase MB 2.6 0.5-3.6 ng/ml Creatine Kinase MB Ratio 1.9 0-3.0 Bedside Troponin I 0.040 0.020 0-0.045 ng/ml LM-Mad-X-Type Natriuretic Peptide 675 0-900 pg/ml Total Protein 7.6 6.4-8.2 gm/dl Albumin 3.9 3.4-5.0 gm/dl Globulin 3.7 2.5-4.0 gm/dl Albumin/Globulin Ratio 1.1 0.9-2 Lipase 495 73-393 U/L Thyroid Stimulating Hormone (TSH) 2.760 0.300-4.500 uIu/ml Ethyl Alcohol mg/dL 150.0 0-3 mg/dl Diagnostic Radiology CXR IMPRESSION: 1. Cardiomegaly 2. Interval development of subtle airspace opacities within the axillary portion of the left chest, consistent with a pneumonitis. Clinical and radiographic follow-up is recommended. CT CHEST IMPRESSION: 1. No evidence of thoracic aortic aneurysm or dissection 2. No evidence of acute pulmonary embolism 3. Cardiomegaly and small pericardial effusion 4. Subpleural airspace opacities in the left upper lobe. The findings are highly suggestive of radiation pneumonitis 5. Right lower lobe bronchial wall thickening and mucous plugging 6. Bibasilar atelectasis Impression Assessment and Plan CHEST PAIN - admit to tele - patient presenting with left sided chest pain brought on with inspiration; was recently admitted to [facility] for afib; CT chest shows possible radiation pneumonitis - patient with history of breast cancer; last radiation in 12/2015 - pain is atypical for ACS and patient recently had stress test on 09/06/16 that was negative for ischemia; initial troponin negative, EKG without acute ST changes; will continue to cycle cardiac enzymes - d. dimer negative, patient also anticoagulated on Coumadin with supra therapeutic INR; low suspicion for PE - small pericardial effusion also noted on CT chest - will obtain echo for follow up - pain likely due to radiation pneumonitis; will start PO steroids HYPONATREMIA - chronic due to chronic ETOH use - Na+ 131 09/14 - check urine and serum osmo ATRIAL FIBRILLATION - rate controlled on beta radha, will continue - INR 6.6 - no signs of bleeding, s/p Vit K in ED HTN - BP controlled on metoprolol ALCOHOL ABUSE - patient counseled regarding cessation - monitor or signs of withdrawal DVT PROPHYLAXIS - on Coumadin with supra therapeutic INR DISPO - The patient will be placed as observation status for now until further work up is complete. Attending Note: Patient is a 61 yr old female with PMH of breast cancer, afib on Coumadin ( scheduled for cardioversion next week) and other problems presents with history of left sided chest pain under her breast region which is brought on by deep inspiration, sharp in quality. Also reports palpitations. CT chest is suggestive of possible radiation pneumonitis and small pericardial effusion. Physical Exam: Vitals signs as noted above General Appearance:Moderately built and nourished, mild distress Respiratory/Chest: Normal breath sounds, CTA Cardiovascular: S1, S2, No murmur Abdomen/GI:Soft, Non tender, Bowel sounds present Neurologic/Psych:AAOX3, grossly no focal neurological deficits Assessment and Plan: Chest Pain: Likely pleuritic in origin ACS unlikely Troponin X2: Negative EKG: No acute ST changes D-dimer negative Check ECHO CT: possible radiation pneumonitis, small pericardial effusion start Prednisone Coagulopathy: On Coumadin for a.fib No acute bleeding Hold Coumadin I personally reviewed the record. Patient is interviewed and examined at bedside. Patient's care is coordinated with Lexi Benoit [employer]. Please refer to the documentation above for details of patient's presentation and for discussion of other issues. VTE Prophylaxis VTE Risk Assessment Done? Y/N: Yes Risk Level: Moderate
[2016-09-15] MEDS: MAGNESIUM SULFATE 1GM / D5W 1 GM in PREMIXED IN D5W 100 ML IV SCH (23:16)
[2016-09-15 23:17] VITALS: BP 123/67; PULSE 103; TEMP 37.2; O2SAT 91
[2016-09-16] MEDS: MAGNESIUM SULFATE 1GM / D5W 1 GM in PREMIXED IN D5W 100 ML IV SCH (00:24)
[2016-09-16 04:07] VITALS: BP 154/87; PULSE 100; TEMP 37; O2SAT 91
[2016-09-16 07:06] LABS: HEMATOCRIT 42.4 % (37-47); MEAN CELL VOLUME 95.1 fL (80-100); MEAN CORPUSCULAR HEMOGLOBIN 34.3 pg (25-34); MEAN CORPUSCULAR HGB CONC 36.1 g/dl (32-36); PLATELET COUNT 123 K/uL (130-400); RED BLOOD COUNT 4.46 M/uL (4.2-5.4); WHITE BLOOD COUNT 12.18 K/uL (4.8-10.8)
[2016-09-16 07:16] LABS: INR 2.9 (0.9-1.1); PROTHROMBIN TIME (PATIENT) 32.8 SECONDS (9.0-12.0)
[2016-09-16 07:28] VITALS: BP 160/91; PULSE 101; TEMP 37; O2SAT 90
[2016-09-16 07:28] LABS: BLOOD UREA NITROGEN 5 mg/dl (7-18); BUN/CREATININE RATIO 10.9 (10-20); CARBON DIOXIDE 24 mmol/L (21-32); CHLORIDE 94 mmol/L (98-107); CREATININE 0.42 mg/dl (0.60-1.20); GLUCOSE 155 mg/dl (70-99); MAGNESIUM 2.3 mg/dl (1.8-2.4); POTASSIUM 3.7 mmol/L (3.5-5.1); SODIUM 127 mmol/L (136-145)
[2016-09-16] MEDS: THIAMINE HCL 50 MG TAB PO SCH (07:51)
[2016-09-16] MEDS: MAGNESIUM OXIDE 400 MG TAB PO SCH (07:52)
[2016-09-16] MEDS: METOPROLOL TARTRATE 50 MG TAB PO SCH ×2 (07:52→19:45)
[2016-09-16] MEDS: CITALOPRAM 20 MG TAB PO SCH (07:52)
[2016-09-16] MEDS: SODIUM CHLORIDE 0.9% 1000ML 1,000 ML IV SCH (10:35)
[2016-09-16 11:48] VITALS: BP 138/81; PULSE 78; TEMP 37.1; O2SAT 94
--- NOTE | 2016-09-16 15:01 | ECHOCARDIOGRAM REPORT ---
*NOTICE TO RECEIVING [employer] This information is strictly Confidential and protected under [place] law. [place] law prohibits you from making any further disclosure of this information unless further disclosure is expressly permitted by the written consent of the person to whom it pertains or is authorized by law. A general authorization for the release of medical or other information is not sufficient for this purpose. Hospital accepts no responsibility if the information is made available to any other person, INCLUDING THE PATIENT. Interpretation Summary * Name: ELEN CROWDER Study Date: 09/16/2016 07:30 AM BP: 160/91 mmHg * Patient Location: [facility] HR: 101 * : 1955 (M/d/yyyy) Gender: Female Height: 63 in * Age: 61 yrs Ethnicity: [place] Weight: 148 lb * Ordering Physician: Lexi Benoit * Referring Physician: Self, Referred * Performed By: Marita Desai RDCS * * Reason For Study: PERICARDIAL EFFUSION BY CT SCAN, CHEST PAIN * BSA: 1.7 m2 * -- Conclusions -- * Small pericardial effusion. * There are no echocardiographic indications of cardiac tamponade. * The left ventricle is normal in size. * There is moderate concentric left ventricular hypertrophy. * Ejection Fraction = 55-60%. * The left ventricular wall motion is normal. * The right ventricular systolic function is normal. * The left atrium is severely dilated. * The right atrium is severely dilated. * The mitral regurgitant jet is eccentrically directed. * There is mild to moderate mitral regurgitation. Procedure Details * A complete two-dimensional transthoracic echocardiogram was performed (2D, M-mode, Doppler and color flow Doppler). Left Ventricle * The left ventricle is normal in size. * There is moderate concentric left ventricular hypertrophy. * Ejection Fraction = 55-60%. * The left ventricular wall motion is normal. Right Ventricle * The right ventricle is normal size. * The right ventricular systolic function is normal. Atria * The left atrium is severely dilated. * The right atrium is severely dilated. * The interatrial septum is intact with no evidence for an atrial septal defect. Mitral Valve * The mitral valve leaflets appear thickened, but open well. * There is mild mitral annular calcification. * The mitral regurgitant jet is eccentrically directed. * There is mild to moderate mitral regurgitation. Tricuspid Valve * The tricuspid valve anatomy is normal. * Significant tricuspid regurgitation is absent. Aortic Valve * The aortic valve is tricuspid. The leaflet thickness if normal. There is no aortic stenosis, and no significant insufficiency. * Aortic stenosis is absent. * There is no significant aortic regurgitation. Great Vessels * The aortic root and proximal ascending aorta are normal sized. Pericardium/Pleural * Small pericardial effusion. * There are no echocardiographic indications of cardiac tamponade. MMode 2D Measurements and Calculations IVSd 1.2 cm IVSs 1.6 cm LVIDd 4.5 cm LVIDs 3.1 cm LVPWd 1.6 cm LVPWs 1.9 cm IVS/LVPW 0.73 FS 30.9 % EDV(Teich) 93.0 ml ESV(Teich) 38.4 ml EF(Teich) 58.7 % EDV(cubed) 91.8 ml ESV(cubed) 30.3 ml EF(cubed) 67.0 % % IVS thick 38.7 % % LVPW thick 15.1 % LV mass(C)d 249.7 grams LV mass(C)dI 146.6 grams/m\S\2 LV mass(C)s 216.8 grams LV mass(C)sI 127.3 grams/m\S\2 SV(Teich) 54.6 ml SI(Teich) 32.1 ml/m\S\2 SV(cubed) 61.6 ml SI(cubed) 36.1 ml/m\S\2 Ao root diam 2.8 cm Ao root area 6.3 cm\S\2 LA dimension 5.0 cm LA/Ao 1.8 LVAd ap4 26.3 cm\S\2 LVLd ap4 6.9 cm EDV(MOD-sp4) 83.3 ml EDV(sp4-el) 84.8 ml LVAs ap4 15.9 cm\S\2 LVLs ap4 5.9 cm ESV(MOD-sp4) 38.0 ml ESV(sp4-el) 36.2 ml EF(MOD-sp4) 54.4 % EF(sp4-el) 57.3 % LVAd ap2 29.7 cm\S\2 LVLd ap2 7.5 cm EDV(MOD-sp2) 98.4 ml EDV(sp2-el) 99.4 ml LVAs ap2 18.4 cm\S\2 LVLs ap2 7.1 cm ESV(MOD-sp2) 42.3 ml ESV(sp2-el) 40.6 ml EF(MOD-sp2) 57.0 % EF(sp2-el) 59.1 % LVLd %diff 7.8 % EDV(MOD-bp) 94.9 ml LVLs %diff 16.5 % ESV(MOD-bp) 44.1 ml EF(MOD-bp) 53.5 % SV(MOD-sp4) 45.3 ml SI(MOD-sp4) 26.6 ml/m\S\2 SV(MOD-sp2) 56.1 ml SI(MOD-sp2) 33.0 ml/m\S\2 SV(MOD-bp) 50.8 ml SI(MOD-bp) 29.8 ml/m\S\2 SV(sp4-el) 48.6 ml SI(sp4-el) 28.5 ml/m\S\2 SV(sp2-el) 58.8 ml SI(sp2-el) 34.5 ml/m\S\2 Doppler Measurements and Calculations MV E max prosper 140.0 cm/sec MV dec time 0.23 sec Ao V2 max 131.0 cm/sec Ao max PG 6.9 mmHg Ao max PG (full) 3.8 mmHg LV V1 max PG 3.1 mmHg LV V1 max 87.9 cm/sec TR max prosper 278.8 cm/sec
--- NOTE | 2016-09-16 15:25 | Progress Note ---
Internal Med Progress Note Date of Service: Sep 16, 2016. Provider Documentation: SUBJECTIVE: patient having some chest pain more on deep breaths has cough with mucus afebrile denies sob no nausea OBJECTIVE: Vital Signs-as noted below Exam: General-alert and oriented. Not in distress ENT-normal hearing Neck-no neck masses Lungs-cta b/l no wheezing or crackles Heart-s1 and s2 heard regular rate and rhythm no murmurs Abdomen-soft bowel sounds present non tender no distension Extremities-no edema no erythema Neuro-alert and awake moves extremities Lab data as noted below. ASSESSMENT & PLAN: CHEST PAIN on left side more with inspiration was recently admitted to [facility] for afib; CT chest shows possible radiation pneumonitis Has history of breast cancer; last radiation in 12/2015 echo no wall motion abnormalities started on prednisone Pericardial effusion small on echo needs outpatient followup echo. HYPONATREMIA chronic due to chronic ETOH use Na+ 131 09/14 na 127 today gentle fluids f/u labs ATRIAL FIBRILLATION rate controlled on beta radha, will continue INR 6.6 , s/p Vit K in ED inr 2.9 today HTN on metoprolol will monitor ALCOHOL ABUSE patient counseled regarding cessation Will monitor or signs of withdrawal DVT PROPHYLAXIS inr 2.9 DISPO pt/ot if stable will d/c in am Vital Signs: Date Time Temp Pulse Resp B/P Pulse Ox O2 Delivery O2 Flow Rate FiO2 09/16/16 12:00 Room Air 09/16/16 11:48 37.1 78 18 138/81 94 Room Air 09/16/16 08:00 Room Air 09/16/16 07:28 37.0 101 18 160/91 90 Room Air 09/16/16 04:07 37.0 100 16 154/87 91 Room Air 09/16/16 04:00 Room Air 09/16/16 00:05 Room Air 09/15/16 23:17 37.2 103 20 123/67 91 Room Air 09/15/16 22:19 36.9 95 20 111/61 91 Room Air 09/15/16 22:13 36.9 95 20 111/61 91 Room Air 09/15/16 21:34 126/70 09/15/16 21:20 87 25 92 09/15/16 20:50 94 20 94 09/15/16 20:30 107/70 09/15/16 20:20 94 18 92 09/15/16 20:14 93 20 109/69 94 Room Air 09/15/16 19:07 104 09/15/16 19:01 97 28 109/69 93 Room Air 09/15/16 17:26 79 34 110/69 93 Room Air 09/15/16 17:20 93 Room Air 09/15/16 17:20 93 Room Air 09/15/16 16:43 36.7 84 20 106/62 90 Room Air Lab Results: Results Past 24 Hours Test 09/15/16 17:17 09/15/16 19:09 09/15/16 19:45 09/16/16 00:34 Range/Units White Blood Count 12.72 4.8-10.8 K/uL Red Blood Count 4.53 4.2-5.4 M/uL Hemoglobin 15.2 12.0-16.0 g/dL Hematocrit 42.6 37-47 % Mean Corpuscular Volume 94.0 80-100 fL Mean Corpuscular Hemoglobin 33.6 25-34 pg Mean Corpuscular Hemoglobin Concent 35.7 32-36 g/dl Platelet Count 146 130-400 K/uL Mean Platelet Volume 9.4 7.4-10.4 fL Neutrophils (%) (Auto) 81.5 % Lymphocytes (%) (Auto) 9.8 % Monocytes (%) (Auto) 7.9 % Eosinophils (%) (Auto) 0.3 % Basophils (%) (Auto) 0.2 % Neutrophils # (Auto) 10.35 1.4-6.5 K/uL Lymphocytes # (Auto) 1.25 1.2-3.4 K/uL Monocytes # (Auto) 1.01 0.11-0.59 K/uL Eosinophils # (Auto) 0.04 0-0.5 K/uL Basophils # (Auto) 0.03 0-0.2 K/uL RDW Standard Deviation 44.0 36.4-46.3 fL RDW Coefficient of Variation 12.8 11.5-14.5 % Immature Granulocyte % (Auto) 0.3 % Immature Granulocyte # (Auto) 0.04 0.00-0.02 K/uL Prothrombin Time 75.8 9.0-12.0 SECONDS Prothromb Time International Ratio 6.6 0.9-1.1 Activated Partial Thromboplast Time 55.3 21.0-31.0 SECONDS Partial Thromboplastin Ratio 2.1 Bedside D-Dimer 273 0-450 ng/mlFEU Sodium Level 127 136-145 mmol/L Potassium Level 4.1 3.5-5.1 mmol/L Chloride Level 95 98-107 mmol/L Carbon Dioxide Level 22 21-32 mmol/L Anion Gap 10.0 3-11 mmol/L Blood Urea Nitrogen 7 7-18 mg/dl Creatinine 0.49 0.60-1.20 mg/dl Est Creatinine Clear Calc Drug Dose 108.2 ml/min Estimated GFR () 120.2 Estimated GFR (Non- 103.7 BUN/Creatinine Ratio 14.9 10-20 Random Glucose 115 70-99 mg/dl Osmolality 325 280-300 mOsm/kg Calcium Level 8.4 8.5-10.1 mg/dl Magnesium Level 1.7 1.8-2.4 mg/dl Total Bilirubin 0.7 0.2-1 mg/dl Aspartate Amino Transf (AST/SGOT) 63 15-37 U/L Alanine Aminotransferase (ALT/SGPT) 53 12-78 U/L Alkaline Phosphatase 103 45-117 U/L Total Creatine Kinase 140 26-192 U/L Creatine Kinase MB 2.6 1.6 0.5-3.6 ng/ml Creatine Kinase MB Ratio 1.9 0-3.0 Bedside Troponin I 0.040 0.020 0-0.045 ng/ml MH-Fdx-V-Type Natriuretic Peptide 675 0-900 pg/ml Total Protein 7.6 6.4-8.2 gm/dl Albumin 3.9 3.4-5.0 gm/dl Globulin 3.7 2.5-4.0 gm/dl Albumin/Globulin Ratio 1.1 0.9-2 Lipase 495 73-393 U/L Thyroid Stimulating Hormone (TSH) 2.760 0.300-4.500 uIu/ml Ethyl Alcohol mg/dL 150.0 0-3 mg/dl Troponin I 0.040 0-0.045 ng/ml Test 09/16/16 06:48 Range/Units White Blood Count 12.18 4.8-10.8 K/uL Red Blood Count 4.46 4.2-5.4 M/uL Hemoglobin 15.3 12.0-16.0 g/dL Hematocrit 42.4 37-47 % Mean Corpuscular Volume 95.1 80-100 fL Mean Corpuscular Hemoglobin 34.3 25-34 pg Mean Corpuscular Hemoglobin Concent 36.1 32-36 g/dl RDW Standard Deviation 44.4 36.4-46.3 fL RDW Coefficient of Variation 12.8 11.5-14.5 % Platelet Count 123 130-400 K/uL Mean Platelet Volume 10.0 7.4-10.4 fL Prothrombin Time 32.8 9.0-12.0 SECONDS Prothromb Time International Ratio 2.9 0.9-1.1 Sodium Level 127 136-145 mmol/L Potassium Level 3.7 3.5-5.1 mmol/L Chloride Level 94 98-107 mmol/L Carbon Dioxide Level 24 21-32 mmol/L Anion Gap 9.0 3-11 mmol/L Blood Urea Nitrogen 5 7-18 mg/dl Creatinine 0.42 0.60-1.20 mg/dl Est Creatinine Clear Calc Drug Dose 125.9 ml/min Estimated GFR () 126.4 Estimated GFR (Non- 109.1 BUN/Creatinine Ratio 10.9 10-20 Random Glucose 155 70-99 mg/dl Calcium Level 9.0 8.5-10.1 mg/dl Magnesium Level 2.3 1.8-2.4 mg/dl Creatine Kinase MB 1.3 0.5-3.6 ng/ml Creatine Kinase MB Ratio 0-3.0 Troponin I 0.043 0-0.045 ng/ml
[2016-09-16 15:31] VITALS: BP 147/83; PULSE 84; TEMP 36.6; O2SAT 95
[2016-09-16 19:41] VITALS: BP 147/81; PULSE 85; TEMP 37.2; O2SAT 93
[2016-09-16 23:29] VITALS: BP 154/91; PULSE 73; TEMP 36.9; O2SAT 93
[2016-09-17] VITALS (8 sets, daily range): BP systolic 131–155; BP diastolic 76–92; PULSE 78–91; TEMP 36.7–37.6; O2SAT 92–96
[2016-09-17] MEDS: SODIUM CHLORIDE 0.9% 1000ML 1,000 ML IV SCH (05:38)
[2016-09-17 07:00] LABS: BASO % 0.1 %; BASO ABS # 0.02 K/uL (0-0.2); COMPLETE YES; EOS % 0.2 %; IG% 0.3 %; LYMPH % 10.9 %; LYMPH ABS # 1.57 K/uL (1.2-3.4); MEAN CELL VOLUME 94.7 fL (80-100); MEAN CORPUSCULAR HEMOGLOBIN 33.7 pg (25-34); MEAN CORPUSCULAR HGB CONC 35.6 g/dl (32-36); MEAN PLATELET VOLUME 10.3 fL (7.4-10.4); MONO % 5.2 %; NEUT % 83.3 %; PLATELET COUNT 118 K/uL (130-400); RED BLOOD COUNT 4.12 M/uL (4.2-5.4); WHITE BLOOD COUNT 14.43 K/uL (4.8-10.8)
[2016-09-17 07:22] LABS: BUN/CREATININE RATIO 16.9 (10-20); CALCIUM 8.8 mg/dl (8.5-10.1); CREATININE 0.41 mg/dl (0.60-1.20); MAGNESIUM 1.8 mg/dl (1.8-2.4); POTASSIUM 3.6 mmol/L (3.5-5.1)
[2016-09-17 08:58] LABS: INR 1.2 (0.9-1.1); PROTHROMBIN TIME (PATIENT) 13.1 SECONDS (9.0-12.0)
[2016-09-17] MEDS: CITALOPRAM 20 MG TAB PO SCH (09:02)
[2016-09-17] MEDS: MAGNESIUM OXIDE 400 MG TAB PO SCH (09:03)
[2016-09-17] MEDS: THIAMINE HCL 50 MG TAB PO SCH (09:03)
[2016-09-17] MEDS: METOPROLOL TARTRATE 50 MG TAB PO SCH (09:03)
[2016-09-17] MEDS ORDERED: LEVOFLOXACIN / D5W 750 MG in PREMIXED IN D5W 150 ML IV SCH (14:00)
[2016-09-17] MEDS ORDERED: ENOXAPARIN 100 MG/1ML SYR SQ ONE (14:00)
[2016-09-17] MEDS ORDERED: WARFARIN SOD 3 MG TAB PO ONE (14:00)
[2016-09-17] MEDS ORDERED: WARFARIN SOD 1.25 MG TAB PO SCH (16:00)
--- NOTE | 2016-09-17 16:11 | Progress Note ---
Internal Med Progress Note Date of Service: Sep 17, 2016. Provider Documentation: SUBJECTIVE: breathing better no pain ambulated ok has cough want to go home OBJECTIVE: Vital Signs-as noted below Exam: General-alert and oriented. Not in distress ENT-normal hearing Neck-no neck masses Lungs-cta b/l no wheezing or crackles Heart-s1 and s2 heard regular rate and rhythm no murmurs Abdomen-soft bowel sounds present non tender no distension Extremities-no edema no erythema Neuro-alert and awake moves extremities Lab data as noted below. ASSESSMENT & PLAN: CHEST PAIN on left side more with inspiration was recently admitted to [facility] for afib; CT chest shows possible radiation pneumonitis Has history of breast cancer; last radiation in 12/2015 echo no wall motion abnormalities started on prednisone improving Pericardial effusion small on echo needs outpatient followup echo. has followup with cardiology for cardioversion HYPONATREMIA chronic due to chronic ETOH use Na+ 131 09/14 na 129 today on gentle fluids f/u labs ATRIAL FIBRILLATION rate controlled on beta radha, will continue INR 6.6 , s/p Vit K in ED inr 1.2 today restarted Coumadin with Lovenox bridge HTN on metoprolol will monitor ALCOHOL ABUSE patient counseled regarding cessation Will monitor or signs of withdrawal DVT PROPHYLAXIS lovenox DISPO pt/ot possible d/c Vital Signs: Date Time Temp Pulse Resp B/P Pulse Ox O2 Delivery O2 Flow Rate FiO2 09/17/16 15:52 36.7 91 18 146/89 95 Room Air 09/17/16 12:00 96 Room Air 09/17/16 11:42 37.6 78 18 131/76 94 Room Air 09/17/16 08:00 95 Room Air 09/17/16 07:48 37.1 87 20 155/92 95 Room Air 09/17/16 04:18 37.2 78 20 154/79 92 Room Air 09/17/16 04:00 Room Air 09/16/16 23:59 Room Air 09/16/16 23:29 36.9 73 18 154/91 93 Room Air 09/16/16 20:00 Room Air 09/16/16 19:41 37.2 85 18 147/81 93 Room Air Lab Results: Results Past 24 Hours Test 09/17/16 06:16 09/17/16 08:37 Range/Units White Blood Count 14.43 4.8-10.8 K/uL Red Blood Count 4.12 4.2-5.4 M/uL Hemoglobin 13.9 12.0-16.0 g/dL Hematocrit 39.0 37-47 % Mean Corpuscular Volume 94.7 80-100 fL Mean Corpuscular Hemoglobin 33.7 25-34 pg Mean Corpuscular Hemoglobin Concent 35.6 32-36 g/dl Platelet Count 118 130-400 K/uL Mean Platelet Volume 10.3 7.4-10.4 fL Neutrophils (%) (Auto) 83.3 % Lymphocytes (%) (Auto) 10.9 % Monocytes (%) (Auto) 5.2 % Eosinophils (%) (Auto) 0.2 % Basophils (%) (Auto) 0.1 % Neutrophils # (Auto) 12.01 1.4-6.5 K/uL Lymphocytes # (Auto) 1.57 1.2-3.4 K/uL Monocytes # (Auto) 0.75 0.11-0.59 K/uL Eosinophils # (Auto) 0.03 0-0.5 K/uL Basophils # (Auto) 0.02 0-0.2 K/uL RDW Standard Deviation 44.2 36.4-46.3 fL RDW Coefficient of Variation 12.8 11.5-14.5 % Immature Granulocyte % (Auto) 0.3 % Immature Granulocyte # (Auto) 0.05 0.00-0.02 K/uL Sodium Level 129 136-145 mmol/L Potassium Level 3.6 3.5-5.1 mmol/L Chloride Level 96 98-107 mmol/L Carbon Dioxide Level 22 21-32 mmol/L Anion Gap 11.0 3-11 mmol/L Blood Urea Nitrogen 7 7-18 mg/dl Creatinine 0.41 0.60-1.20 mg/dl Est Creatinine Clear Calc Drug Dose 128.0 ml/min Estimated GFR () 127.4 Estimated GFR (Non- 110.0 BUN/Creatinine Ratio 16.9 10-20 Random Glucose 105 70-99 mg/dl Calcium Level 8.8 8.5-10.1 mg/dl Magnesium Level 1.8 1.8-2.4 mg/dl Prothrombin Time 13.1 9.0-12.0 SECONDS Prothromb Time International Ratio 1.2 0.9-1.1
[2016-09-17] MEDS ORDERED: ENOX100I SQ (16:53)
[2016-09-17] MEDS ORDERED: LEVO750T23 PO (16:53)
[2016-09-17] MEDS ORDERED: CMD125 PO (16:53)
--- NOTE | 2016-09-17 16:56 | Discharge Instructions ---
Discharge Instructions Date of Service Sep 17, 2016. Admission Reason for Admission: Chest Pain Discharge Discharge Diagnosis / Problem: chest pain, bronchitis Discharge Goals Goal(s): Decrease discomfort, Improve function Activity Recommendations Activity Limitations: resume your previous activity FOLLOWUP WITH FAMILY DOCTOR ON AT 11:05AM FOLLOWUP WITH CARDIOLOGY SCHEDULED. FOLLOWUP WITH CARDIOLOGY FROM SMALL PERICARDIAL EFFUSION. FOLLOWUP WITH COUMADIN CLINIC FOR COUMADIN DOSING. DURATION OF LOVENOX SHOTS PER COUMADIN CLINIC. LAB: PT/INR IN 2-3 DAYS AND FOLLOW RESULTS WITH COUMADIN CLINIC. WILL NOTIFY COUMADIN CLINIC. LAB: BMP IN ONE WEEK AND FOLLOW RESULTS WITH FAMILY DOCTOR FOR LOW SODIUM LEVELS. . Current Hospital Diet Patient's current hospital diet: AHA Diet (Heart Healthy) Discharge Diet Recommended Diet: AHA Diet (Heart Healthy) Pending Studies Studies pending at discharge: no Laboratory Results Lipid Panel Test 08/16/16 04:15 Range/Units Triglycerides Level 61 0-150 mg/dl Cholesterol Level 214 H 0-200 mg/dl HDL Cholesterol 79 mg/dl Cholesterol/HDL Ratio 2.7 LDL Cholesterol, Calculated 123 mg/dl Medical Emergencies . Who to Call and When: Medical Emergencies: If at any time you feel your situation is an emergency, please call 911 immediately. . Non-Emergent Contact Non-Emergency issues call your: Primary Care Provider . . "Provider Documentation" section prepared by Efrain Alvarado. . VTE Core Measure Inpt VTE Proph given/why not?: Enoxaparin (Lovenox)SQ, Warfarin (Coumadin)
[2016-09-17] MEDS ORDERED: PRED10TA PO (16:57)
--- NOTE | 2016-09-17 19:20 | Discharge Summary ---
Discharge Summary Date of Service Sep 17, 2016. 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 Permanent Comment: Abnormal left breast mammogram Status post core needle biopsy 03/04/2015 Invasive carcinoma grade 2 Estrogen receptor negative, progesterone receptor negative, HER-2/talita negative Status post lumpectomy and sentinel lymph node biopsy 04/01/2015 Stage pT1c [id number] G3 Lymphovascular invasion Status post completion of systemic chemotherapy with Adriamycin and Cytoxan for 4 cycles followed by weekly Taxol for 12 weeks completed 10/16/2015 Status post completion of radiation therapy 12/28/2015 received 6240 cGy Status: Chronic (4) Depression with anxiety Status: Chronic (5) HTN (hypertension) Status: Chronic (6) Tobacco use disorder Status: Chronic Procedures: CTA CHEST: 1. No evidence of thoracic aortic aneurysm or dissection 2. No evidence of acute pulmonary embolism 3. Cardiomegaly and small pericardial effusion 4. Subpleural airspace opacities in the left upper lobe. The findings are highly suggestive of radiation pneumonitis 5. Right lower lobe bronchial wall thickening and mucous plugging 6. Bibasilar atelectasis Medication Reconciliation New Medications: Enoxaparin (Lovenox) 100 Mg/Ml Inj 100 MG SQ DAILY for 5 Days Levofloxacin (Levaquin) 750 Mg Tab 1 TAB PO DAILY for 5 Days, #5 TAB Prednisone Tab (Prednisone) 10 Mg Tab 30 MG PO UD, #13 TAB PREDNISONE 30MG PO DAILY X 2 DAYS THEN PREDNISONE 20MG PO DAILY X 2 DAYS THEN PREDNISONE 10MG PO DAILY X 2 DAYS THEN PREDNISONE 5MG PO DAILY X 2 DAYS THEN STOP. Warfarin Sod (Coumadin) 1.25 Mg Tab 1.25 MG PO DAILY@16, #30 TAB 2 Refills Continued Medications: Albuterol Sulfate (Proair Respiclick) 108 Mcg/Act Aer 2 PUFFS INH Q4 PRN for WHEEZING/COUGH Citalopram Hydrobromide (Celexa) 20 Mg Tab 20 MG PO QAM, TAB Lorazepam (Ativan) 1 Mg Tab 1 MG PO Q8H PRN for Anxiety, TAB Magnesium Oxide (Mag-Ox) 400 Mg Tab 400 MG PO QAM Metoprolol Tartrate (Lopressor) (Lopressor) 50 Mg Tab 75 MG PO BID, TAB Thiamine Hcl (Vitamin B-1) 50 Mg Tab 100 MG PO QAM, TAB Discontinued Medications: Warfarin Sodium (Warfarin Sodium) 5 Mg Tab 2.5 MG PO QAM Admission Information HPI (per Admitting provider): 61 year old female who presents to the ER with chest pain. Patient was admitted to [facility] about one month ago for afib with RVR. Patient was started on beta radha therapy and Coumadin. She is scheduled to have a cardioversion next week. Patient reports that while sitting on the cough watching TV today she developed chest pain her her left breast. She reports it is brought on with a deep breath. She describes the pain as sharp and severe. Sometimes radiates into the back. She reports associated shortness of breath with the pain. She reports she frequently feels palpitations from the afib. She denies fever or chills. She has a chronic cough which is unchanged. She denies abdominal pain or diarrhea. She reports some occasional nausea and vomiting in the morning from PND. She denies urinary symptoms. In the ER, patient had a CT chest that is showing possible radiation pneumonitis and small pericardial effusion. Vitals are stable. Physical Exam (per Admitting): General Appearance: + mild distress (due to pain, also appears anxious) Head: normocephalic Eyes: normal inspection ENT: hearing grossly normal Neck: supple, no JVD Respiratory/Chest: chest non-tender, lungs clear, normal breath sounds, no respiratory distress Cardiovascular: regular rate, rhythm, no edema, normal peripheral pulses Abdomen/GI: normal bowel sounds, non tender, soft Extremities/Musculoskelatal: normal inspection, no calf tenderness Neurologic/Psych: no motor/sensory deficits, alert, normal mood/affect, oriented x 3 Skin: normal color, warm/dry Hospital Course CHEST PAIN on left side more with inspiration was recently admitted to [facility] for afib; CT chest shows possible radiation pneumonitis Has history of breast cancer; last radiation in 12/2015 echo no wall motion abnormalities started on prednisone improving Pericardial effusion small on echo needs outpatient followup echo. has followup with cardiology for cardioversion HYPONATREMIA chronic due to chronic ETOH use Na+ 131 09/14 na 129 today on gentle fluids f/u labs ATRIAL FIBRILLATION rate controlled on beta radha, will continue INR 6.6 , s/p Vit K in ED inr 1.2 today restarted Coumadin with Lovenox bridge HTN on metoprolol will monitor ALCOHOL ABUSE patient counseled regarding cessation Will monitor or signs of withdrawal DVT PROPHYLAXIS lovenox DISPO pt/ot possible d/c Total time spent on discharge = 35MINUTES This includes examination of the patient, discharge planning, medication reconciliation, and communication with other providers. Discharge Instructions Discharge Instructions Date of Service Sep 17, 2016. Admission Reason for Admission: Chest Pain Discharge Discharge Diagnosis / Problem: chest pain, bronchitis Discharge Goals Goal(s): Decrease discomfort, Improve function Activity Recommendations Activity Limitations: resume your previous activity FOLLOWUP WITH FAMILY DOCTOR ON AT 11:05AM FOLLOWUP WITH CARDIOLOGY SCHEDULED. FOLLOWUP WITH CARDIOLOGY FROM SMALL PERICARDIAL EFFUSION. FOLLOWUP WITH COUMADIN CLINIC FOR COUMADIN DOSING. DURATION OF LOVENOX SHOTS PER COUMADIN CLINIC. LAB: PT/INR IN 2-3 DAYS AND FOLLOW RESULTS WITH COUMADIN CLINIC. WILL NOTIFY COUMADIN CLINIC. LAB: BMP IN ONE WEEK AND FOLLOW RESULTS WITH FAMILY DOCTOR FOR LOW SODIUM LEVELS. . Current Hospital Diet Patient's current hospital diet: AHA Diet (Heart Healthy) Discharge Diet Recommended Diet: AHA Diet (Heart Healthy) Pending Studies Studies pending at discharge: no Laboratory Results Lipid Panel Test 08/16/16 04:15 Range/Units Triglycerides Level 61 0-150 mg/dl Cholesterol Level 214 H 0-200 mg/dl HDL Cholesterol 79 mg/dl Cholesterol/HDL Ratio 2.7 LDL Cholesterol, Calculated 123 mg/dl Medical Emergencies . Who to Call and When: Medical Emergencies: If at any time you feel your situation is an emergency, please call 911 immediately. . Non-Emergent Contact Non-Emergency issues call your: Primary Care Provider . . "Provider Documentation" section prepared by Efrain Alvarado.
[2016-09-18] MEDS ORDERED: WARFARIN SOD 1.25 MG TAB PO SCH (16:00)
[2016-10-29] MEDS ORDERED: LNX125 PO (11:57)
[2016-10-29] MEDS ORDERED: ACET325T96 PO (11:57)
[2016-10-29] MEDS ORDERED: TPRSR50 PO (11:57)
[2016-10-29] MEDS ORDERED: ATRINS INH (11:57)
[2016-10-29] MEDS ORDERED: LVNIS60 SQ (11:57)
[2016-10-29] MEDS ORDERED: CMD5 PO (11:57)
[2016-10-29] MEDS ORDERED: ASPEC81 PO (11:57)
[2016-10-29] MEDS ORDERED: FRRS300 PO (11:57)
[2016-10-29] MEDS ORDERED: ERGO500011 PO (11:57)
[2016-10-29] MEDS ORDERED: NICO7DIS10 TD (11:57)
[2016-10-29] MEDS ORDERED: XPNINS INH (11:57)
[2016-10-29] MEDS ORDERED: FLV400 PO (11:57)
== END 2016-09-17 17:38 | disposition home or self-care (01) ==
LOC: ENRESERVDT → ENRESERVTM → C.EDB 16:41 → C.2T 21:07
PROVIDERS: ADMIT Internal Medicine; ATTEND Internal Medicine
DX: J40 Bronchitis, not specified as acute or chronic (principal); I31.3 Pericardial effusion (noninflammatory); E87.1 Hypo-osmolality and hyponatremia; I48.2 Chronic atrial fibrillation; D68.9 Coagulation defect, unspecified; F32.9 Major depressive disorder, single episode, unspecified; F10.10 Alcohol abuse, uncomplicated; I10 Essential (primary) hypertension; Z86.010 Personal history of colon polyps; Z85.3 Personal history of malignant neoplasm of breast; Z79.01 Long term (current) use of anticoagulants; F17.200 Nicotine dependence, unspecified, uncomplicated; Z90.10 Acquired absence of unspecified breast and nipple; Z83.3 Family history of diabetes mellitus; Z82.49 Family history of ischemic heart disease and other diseases of the circulatory system

== ENCOUNTER → 2016-10-03 | Outpatient (CLI) | payer OTHER ==
[~2016-10-03] MED LIST changes: +ACET325T96 PO; +ASPEC81 PO; -ASPI81TA28 PO; +ATRINS INH; +ATV/1 PO; +CHOL100010 PO; +CMD125 PO; +CMD5 PO; +ENOX100I SQ; +ERGO500011 PO; +FLV400 PO; +FRRS300 PO; +FURO40TA3 PO; +LNX125 PO; -LOSA50TA54 PO; +LOSA50TA6 PO; +LPR50X PO; +LVNIS60 SQ; +MAGN400T6 PO; +METO50TA16 PO; -MGNO400 PO; +NICO7DIS10 TD; +PRED10TA PO; +TPRSR50 PO; -TRAM-10 PO; +WARF-246 PO; +WARF5TAB90 PO; +XPNINS INH
== END | disposition home or self-care (01) ==
LOC: C.LABSPEC 14:47
PROVIDERS: ATTEND Podiatrist Foot & Ankle Surgery
DX: B35.1 Tinea unguium (principal)

== ENCOUNTER 2016-10-09 10:26 | Inpatient (IN) | payer OTHER ==
[~2016-10-09] VITALS: Ht 160 cm; Wt 64.6 kg
[~2016-10-09 10:26] MED LIST changes: -ACET325T96 PO; -ASPEC81 PO; -ATRINS INH; -CHOL100010 PO; -CMD25 PO; -CMD5 PO; -ERGO500011 PO; -FLV400 PO; -FRRS300 PO; -FURO40TA3 PO; -LNX125 PO; -LOSA50TA6 PO; -LPR25 PO; -LPR50X PO; -LVNIS60 SQ; -NICO7DIS10 TD; -TPRSR50 PO; -WARF-246 PO; -WARF5TAB90 PO; -XPNINS INH
[2016-10-09] MEDS ORDERED: SODIUM CHLORIDE 0.9% 1000ML 1,000 ML IV STA (10:53)
[2016-10-09] MEDS ORDERED: ONDANSETRON INJ 2 MG/ML 2 ML VIAL IV STA (10:53)
[2016-10-09] MEDS ORDERED: MoRPHine SULFATE 4 MG/ML 1 ML CARP\\VIAL IV PRN (11:00)
[2016-10-09 11:27] LABS: BASO % 0.4 %; BASO ABS # 0.04 K/uL (0-0.2); COMPLETE YES; HEMATOCRIT 36.6 % (37-47); IG% 0.2 %; LYMPH % 8.5 %; LYMPH ABS # 0.86 K/uL (1.2-3.4); MEAN CELL VOLUME 95.1 fL (80-100); MEAN CORPUSCULAR HEMOGLOBIN 33.8 pg (25-34); MEAN CORPUSCULAR HGB CONC 35.5 g/dl (32-36); MEAN PLATELET VOLUME 9.2 fL (7.4-10.4); MONO % 8.8 %; NEUT % 82.1 %; PLATELET COUNT 221 K/uL (130-400); RED BLOOD COUNT 3.85 M/uL (4.2-5.4); WHITE BLOOD COUNT 10.09 K/uL (4.8-10.8)
[2016-10-09] MEDS ORDERED: WARF5TAB90 PO (11:30)
[2016-10-09] MEDS ORDERED: LOSA50TA6 PO (11:30)
[2016-10-09] MEDS ORDERED: CMD25 PO (11:30)
--- NOTE | 2016-10-09 11:38 | EMERGENCY ROOM VISIT NOTE ---
History Report prepared by Monica: Alicia Kennedy Under the Supervision of: Dr. Joseph Garcia M.D. First contact with patient: 10:44 Chief Complaint: SHOULDER PAIN Stated Complaint: FALL,SHOULDER PAIN History of Present Illness The patient is a 61 year old female who presents to the Emergency Room with complaints of an episode of right shoulder pain starting last night. The patient states that she has fallen twice in the past two days. She reports that she lost consciousness and hit her head in the first fall. She states that the second fall was the one that hurt her shoulder. The patient reports that she becomes dizzy from her a-fib and falls. She notes that she is on Coumadin. She reports that she went to Dr. Ortega's office today to have it looked at and he sent her here for a further workup. The patient currently rates her pain as a 10 /10 in severity. The patient reports that she has not taken anything for the pain. She states that she has been eating and drinking normally. The patient denies abdominal pain, rib pain, neck pain, urinary symptoms, and vomiting. Source of History: patient Onset: last night Position: shoulder (right) Symptom Intensity: 10/10 Timing: other (episode) Associated Symptoms: + LOC, No abdominal pain, No neck pain, No urinary symptoms, No vomiting Note: The patient complains of dizziness. The patient denies rib pain. Review of Systems See HPI for pertinent positives & negatives. A total of 10 systems reviewed and were otherwise negative. 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 (4) Depression with anxiety (5) HTN (hypertension) (6) Tobacco use disorder Surgical Problems: (1) H/O lumpectomy (2) S/P section (3) S/P lymph node biopsy (4) S/P partial mastectomy (5) S/p placement of a-port (6) S/P tubal ligation Family History Diabetes mellitus FATHER FH: atrial fibrillation MOTHER FH: breast cancer AUNT SISTER Heart disease Hypertension Pacemaker MOTHER Social History Smoking Status: Current Every Day Smoker Alcohol Use: heavy Housing Status: lives with significant other Current/Historical Medications Scheduled Citalopram Hydrobromide (Celexa), 20 MG PO QAM Furosemide (Lasix), 20 MG PO UD Losartan Potassium (Cozaar), 50 MG PO DAILY Magnesium Oxide (Mag-Ox), 400 MG PO QAM Metoprolol Tartrate (Metoprolol Tartrate), 100 MG PO BID Thiamine Hcl (Vitamin B-1), 100 MG PO QAM Warfarin Sod (Coumadin), 2.5 MG PO 2XWK Warfarin Sodium (Coumadin), 5 MG PO 5XWK Scheduled PRN Albuterol Sulfate (Proair Respiclick), 2 PUFFS INH Q4 PRN for WHEEZING/COUGH Lorazepam (Ativan), 1 MG PO Q8H PRN for Anxiety Allergies Coded Allergies: Sulfa Antibiotics (Verified Allergy, Mild, "SULFA" -- unknown rxn, 09/15/16 ) Physical Exam Vital Signs Date Time Temp Pulse Resp B/P Pulse Ox O2 Delivery O2 Flow Rate FiO2 10/09/16 12:35 103 19 93 Nasal Cannula 4.0 10/09/16 12:29 88 Room Air 2.0 10/09/16 12:27 115 10/09/16 12:27 84 Room Air 10/09/16 12:20 84 22 131/76 91 Room Air 10/09/16 12:20 91 Room Air 10/09/16 10:37 36.9 116 17 143/69 94 Room Air Physical Exam GENERAL: Patient is in no acute distress. HEENT:Small hematoma to left parietal scalp. no laceration. Mucous membranes are dry. No facial trauma. NECK: No stridor, no adenopathy, no meningismus, trachea is midline. No posterior c-spine tenderness LUNGS: Clear to auscultation bilaterally, no wheeze, no rhonchi, breath sounds equal. HEART: Irregular with normal rate, no murmurs. ABDOMEN: Soft, nontender, bowel sounds positive, no hernias, no peritonitis. EXTREMITIES: No obvious trauma to lower extremities. Right shoulder is tender over proximal humerus. No obvious dislocation of shoulder joint. Right clavicle is non tender. NVI distally. NEUROLOGIC: Oriented x 3, no acute motor or sensory deficits, no focal weakness. SKIN: No rash, no jaundice, no diaphoresis. Medical Decision & Procedures ER Provider Diagnostic Interpretation: Radiology results as stated below per my review and radiologist interpretation: CHEST ONE VIEW PORTABLE HISTORY: Fall. EVALUATE ALTERED MENTAL STATUS/WEAKNESS COMPARISON: Chest 09/15/2016. FINDINGS: No pneumothorax. No pleural effusions. The heart remains mildly enlarged. Progressive diffuse interstitial thickening. This is consistent with mild pulmonary edema. A proximal right Humerus fracture. No new focal lung consolidations. IMPRESSION: 1. Progression of the mild interstitial pulmonary edema. 2. Acute proximal right humerus fracture. Electronically signed by: Jefferson Vasquez M.D. 10/09/2016 12:06 PM Dictated Date/Time: 10/09/2016 12:[address] CT DOSE: 537.48 mGy.cm HISTORY: EVALUATE ALTERED MENTAL STATUS/WEAKNESS TECHNIQUE: Multiaxial CT images of the head were performed without the use of intravenous contrast. Automated exposure control was utilized for this study. Comparison: None. Findings: Small amount of fluid within the right maxillary sinus. The mastoid air cells are clear. A 1.8 cm groundglass lesion within the left parietal bone. 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 The calvarium and skull base are intact. The ventricles and sulci are within normal limits. There is no mass, hematoma, midline shift, or acute infarct. Impression: No acute intracranial abnormality. Electronically signed by: Jefferson Vasquez M.D. 10/09/2016 11:46 AM Dictated Date/Time: 10/09/2016 11:43 AM RIGHT SHOULDER MIN 2 VIEWS ROUTINE, RIGHT HUMERUS MIN 2 VIEWS ROUTINE CLINICAL HISTORY: fall pain Right. Right shoulder and right arm pain. COMPARISON STUDY: None. FINDINGS: The bones are osteopenic. There is a fracture within the right humeral neck which extends to the greater tuberosity of the humeral head. This is mildly displaced. The greater tuberosity demonstrates up to 7 mm of lateral displacement. The mid to distal humerus appears intact. Soft tissue swelling within the right shoulder. The right clavicle appears intact. IMPRESSION: Mildly displaced right humeral head/neck fracture as described above. Electronically signed by: Jefferson Vasquez M.D. 10/09/2016 12:07 PM Dictated Date/Time: 10/09/2016 12:06 PM RIGHT SHOULDER MIN 2 VIEWS ROUTINE, RIGHT HUMERUS MIN 2 VIEWS ROUTINE CLINICAL HISTORY: fall pain Right. Right shoulder and right arm pain. COMPARISON STUDY: None. FINDINGS: The bones are osteopenic. There is a fracture within the right humeral neck which extends to the greater tuberosity of the humeral head. This is mildly displaced. The greater tuberosity demonstrates up to 7 mm of lateral displacement. The mid to distal humerus appears intact. Soft tissue swelling within the right shoulder. The right clavicle appears intact. IMPRESSION: Mildly displaced right humeral head/neck fracture as described above. Electronically signed by: Jefferson Vasquez M.D. 10/09/2016 12:07 PM Dictated Date/Time: 10/09/2016 12:06 PM Laboratory Results 10/09/16 11:10 Red Blood Count 3.85, Mean Corpuscular Volume 95.1, Mean Corpuscular Hemoglobin 33.8, Mean Corpuscular Hemoglobin Concent 35.5, Mean Platelet Volume 9.2, Neutrophils (%) (Auto) 82.1, Lymphocytes (%) (Auto) 8.5, Monocytes (%) (Auto) 8.8, Eosinophils (%) (Auto) 0.0, Basophils (%) (Auto) 0.4, Neutrophils # (Auto) 8.28, Lymphocytes # (Auto) 0.86, Monocytes # (Auto) 0.89, Eosinophils # (Auto) 0.00, Basophils # (Auto) 0.04 10/09/16 11:10 Test 10/09/16 11:10 White Blood Count 10.09 K/uL (4.8-10.8) Red Blood Count 3.85 M/uL (4.2-5.4) Hemoglobin 13.0 g/dL (12.0-16.0) Hematocrit 36.6 % (37-47) Mean Corpuscular Volume 95.1 fL (80-100) Mean Corpuscular Hemoglobin 33.8 pg (25-34) Mean Corpuscular Hemoglobin Concent 35.5 g/dl (32-36) Platelet Count 221 K/uL (130-400) Mean Platelet Volume 9.2 fL (7.4-10.4) Neutrophils (%) (Auto) 82.1 % Lymphocytes (%) (Auto) 8.5 % Monocytes (%) (Auto) 8.8 % Eosinophils (%) (Auto) 0.0 % Basophils (%) (Auto) 0.4 % Neutrophils # (Auto) 8.28 K/uL (1.4-6.5) Lymphocytes # (Auto) 0.86 K/uL (1.2-3.4) Monocytes # (Auto) 0.89 K/uL (0.11-0.59) Eosinophils # (Auto) 0.00 K/uL (0-0.5) Basophils # (Auto) 0.04 K/uL (0-0.2) RDW Standard Deviation 46.4 fL (36.4-46.3) RDW Coefficient of Variation 13.3 % (11.5-14.5) Immature Granulocyte % (Auto) 0.2 % Immature Granulocyte # (Auto) 0.02 K/uL (0.00-0.02) Prothrombin Time 17.9 SECONDS (9.0-12.0) Prothromb Time International Ratio 1.6 (0.9-1.1) Activated Partial Thromboplast Time 33.9 SECONDS (21.0-31.0) Partial Thromboplastin Ratio 1.3 Anion Gap 13.0 mmol/L (3-11) Est Creatinine Clear Calc Drug Dose 129.1 ml/min Estimated GFR () 127.4 Estimated GFR (Non- 110.0 BUN/Creatinine Ratio 9.7 (10-20) Calcium Level 8.3 mg/dl (8.5-10.1) Magnesium Level 1.6 mg/dl (1.8-2.4) Total Bilirubin 0.7 mg/dl (0.2-1) Aspartate Amino Transf (AST/SGOT) 42 U/L (15-37) Alanine Aminotransferase (ALT/SGPT) 39 U/L (12-78) Alkaline Phosphatase 108 U/L (45-117) Total Creatine Kinase 107 U/L (26-192) Troponin I 0.759 ng/ml (0-0.045) Total Protein 7.2 gm/dl (6.4-8.2) Albumin 3.4 gm/dl (3.4-5.0) Globulin 3.8 gm/dl (2.5-4.0) Albumin/Globulin Ratio 0.9 (0.9-2) Thyroid Stimulating Hormone (TSH) 1.530 uIu/ml (0.300-4.500) Laboratory results reviewed by me. Medications Administered Medications (Trade) Dose Ordered Sig/Ton Route Start Time Stop Time Status Last Admin Dose Admin Ondansetron HCl 4 mg 4 mg NOW STAT IV 10/09/16 10:53 10/09/16 10:56 DC 10/09/16 11:18 4 MG Sodium Chloride (Nss 1000ml) 1,000 ml @ 999 mls/hr Q1H1M STAT IV 10/09/16 10:53 10/09/16 11:53 DC 10/09/16 11:20 999 MLS/HR Morphine Sulfate (MoRPHine SULFATE INJ) 4 mg Q30M PRN IV 10/09/16 11:00 10/09/16 14:35 DC 10/09/16 11:18 4 MG Magnesium Sulfate (Magnesium Sulfate) 2 gm NOW STAT IV 10/09/16 11:53 10/09/16 11:54 DC 10/09/16 12:14 2 GM Hydromorphone HCl (Dilaudid Inj) 0.5 mg NOW STAT IV 10/09/16 11:59 10/09/16 12:00 DC 10/09/16 12:20 0.5 MG Lorazepam (Ativan Inj) 0.5 mg NOW STAT IV 10/09/16 12:16 10/09/16 12:17 DC 10/09/16 12:20 0.5 MG ECG Indication: syncope Rate (beats per minute): 109 Rhythm: atrial fibrillation Findings: no acute ischemic change, no ectopy, other (no specific t-wave changes noted) ED Course 1050: The patient was evaluated in room C10. A complete history and physical exam was performed. 1053: Ordered NSS 1000 ml @ 999 mls/hr, Zofran Inj 4 mg IV. 1100: Ordered Morphine Sulfate 4 mg PRN IV pain. 1153: Ordered Magnesium Sulfate 2 gm IV. 1159: Ordered Dilaudid Inj 0.5 mg IV. 1214: Upon reevaluation, the patient is doing okay. She reports that she drinks 3-4 drinks a day with her last drink being yesterday. 1216: Ordered Ativan Inj 0.5 mg IV. 1220: Discussed the patient's case with PA. Ramirez. The patient will be evaluated for further management. Medical Decision Differential diagnoses include intracranial bleeding, skull fracture, dysrhythmia, anemia, urinary tract infection, right shoulder or humeral fracture , right shoulder dislocation, electrolyte imbalance. There is no leukocytosis or concerning anemia. No kidney failure. Renal panel testing does show a low magnesium at 1.6. No hepatitis. INR is subtherapeutic at 1.6. Brain CT shows no acute bleed or mass effect. Right shoulder and right humerus films were done, there was a right proximal humerus fracture, there was no right shoulder dislocation. EKG shows A. fib, no acute ischemic change. Cardiac enzyme testing 1 is elevated consistent with cardiac injury or strain. The patient required IV morphine, IV Dilaudid for pain control. She was given IV saline and IV Zofran. She received IV Ativan for some tremors and stress. Of note, the patient does drink alcohol regularly, I think this may be playing into why she is falling. I was concerned for alcohol withdrawal with her tremors noted today. She had not consumed alcohol since yesterday. The patient's right arm was placed in a sling. She was given IV magnesium. I spoke to the patient and to case management. The on-call hospitalist was consulted. Given the hypomagnesemia, given the 2 falls, given the shoulder fracture, given the troponin elevation, given the possible alcohol withdrawal, admission/observation was warranted. Consults Time Called: 1218 Consulting Physician: SUPRIYA Ramirez Returned Call: 1220 Discussed the patient's case with SUPRIYA Ramirez. The patient will be evaluated for further management. Impression Primary Impression: Syncope Additional Impressions: Closed fracture of right proximal humerus Head trauma Elevated troponin Hypomagnesemia Scribe Attestation The scribe's documentation has been prepared under my direction and personally reviewed by me in its entirety. I confirm that the note above accurately reflects all work, treatment, procedures, and medical decision making performed by me. Departure Information Dispostion Being Evaluated By Hospitalist Referrals Julius Min M.D. (PCP) Patient Instructions My [facility] Problem Qualifiers
[2016-10-09 11:44] LABS: BUN/CREATININE RATIO 9.7 (10-20); CALCIUM 8.3 mg/dl (8.5-10.1); CREATININE 0.41 mg/dl (0.60-1.20); MAGNESIUM 1.6 mg/dl (1.8-2.4); POTASSIUM 4.3 mmol/L (3.5-5.1)
--- NOTE | 2016-10-09 11:47 | DIAGNOSTIC IMAGING REPORT ---
HEAD CT NONCONTRAST CT DOSE: 537.48 mGy.cm HISTORY: EVALUATE ALTERED MENTAL STATUS/WEAKNESS TECHNIQUE: Multiaxial CT images of the head were performed without the use of intravenous contrast. Automated exposure control was utilized for this study. Comparison: None. Findings: Small amount of fluid within the right maxillary sinus. The mastoid air cells are clear. A 1.8 cm groundglass lesion within the left parietal bone. 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 The calvarium and skull base are intact. The ventricles and sulci are within normal limits. There is no mass, hematoma, midline shift, or acute infarct. Impression: No acute intracranial abnormality. Electronically signed by: Jefferson Vasquez M.D. 10/09/2016 11:46 AM Dictated Date/Time: 10/09/2016 11:43 AM
[2016-10-09 11:48] LABS: INR 1.6 (0.9-1.1); PARTIAL THROMBOPLASTIN RATIO 1.3; PROTHROMBIN TIME (PATIENT) 17.9 SECONDS (9.0-12.0)
[2016-10-09] MEDS ORDERED: MAGNESIUM SULFATE 1GM / D5W 1 GM BAG IV STA (11:53)
[2016-10-09 11:58] LABS: ALB/GLOB RATIO 0.9 (0.9-2); THYROID STIMULATING HORMONE 1.53 uIu/ml (0.300-4.500)
[2016-10-09] MEDS ORDERED: HYDROmorphone INJ 2 MG/ML SYR/VIAL IV STA (11:59)
--- NOTE | 2016-10-09 12:07 | DIAGNOSTIC IMAGING REPORT ---
CHEST ONE VIEW PORTABLE HISTORY: Fall. EVALUATE ALTERED MENTAL STATUS/WEAKNESS COMPARISON: Chest 09/15/2016. FINDINGS: No pneumothorax. No pleural effusions. The heart remains mildly enlarged. Progressive diffuse interstitial thickening. This is consistent with mild pulmonary edema. A proximal right Humerus fracture. No new focal lung consolidations. IMPRESSION: 1. Progression of the mild interstitial pulmonary edema. 2. Acute proximal right humerus fracture. Electronically signed by: Jefferson Vasquez M.D. 10/09/2016 12:06 PM Dictated Date/Time: 10/09/2016 12:04 PM
--- NOTE | 2016-10-09 12:09 | DIAGNOSTIC IMAGING REPORT ---
RIGHT SHOULDER MIN 2 VIEWS ROUTINE, RIGHT HUMERUS MIN 2 VIEWS ROUTINE CLINICAL HISTORY: fall pain Right. Right shoulder and right arm pain. COMPARISON STUDY: None. FINDINGS: The bones are osteopenic. There is a fracture within the right humeral neck which extends to the greater tuberosity of the humeral head. This is mildly displaced. The greater tuberosity demonstrates up to 7 mm of lateral displacement. The mid to distal humerus appears intact. Soft tissue swelling within the right shoulder. The right clavicle appears intact. IMPRESSION: Mildly displaced right humeral head/neck fracture as described above. Electronically signed by: Jefferson Vasquez M.D. 10/09/2016 12:07 PM Dictated Date/Time: 10/09/2016 12:06 PM
[2016-10-09] MEDS ORDERED: LORAZEPAM 2 MG/ML 1 ML VIAL IV STA (12:16)
[2016-10-09] MEDS ORDERED: LPR25 PO (12:58)
[2016-10-09] MEDS ORDERED: FURO40TA3 PO (12:58)
[2016-10-09] MEDS ORDERED: NITROGLYCERIN 0.4 MG SL PER TAB CHARGE SL PRN (13:00)
[2016-10-09] MEDS ORDERED: ONDANSETRON INJ 2 MG/ML 2 ML VIAL IV PRN (13:00)
[2016-10-09] MEDS ORDERED: LORAZEPAM 1 MG TAB PO PRN ×4 (13:30→21:00)
--- NOTE | 2016-10-09 13:43 | History and Physical ---
History & Physical Date & Time of Service: October 09, 2016 at 13:05 Chief Complaint: Fall,Shoulder Pain Primary Care Physician: Julius Min M.D. History of Present Illness Source: patient, family, clinic records, hospital records Patient seen and examined. 61 year old female with PMHx of Afib on Coumadin, HTN , tobacco abuse, essential tremor, h/o breast CA and other problems listed below presents to the ED complaining of shoulder pain following a fall prior arrival. Patient reports history of multiple falls. She states that she becomes dizzy from her afib. This weekend she reports she became dizzy and fell hitting her head. She reports a few seconds of LOC. Last night she got out of bed to use the bathroom. As she began walking she became dizzy and fell striking her right shoulder. She immediately had significant pain in the right shoulder. She went back to bed but this morning the pain persisted so she went to urgent care and was referred to the ED for further evaluation. She reports that she feels palpitations relatively often and they do seem to be more significant during her episodes of dizziness. She reports currently the pain in her right shoulder is like muscle spams and she rates it as a 9/10. She denies fevers, chills, chest pain, SOB, numbness/tingling, nausea, vomiting, diarrhea, dysuria, calf pain and edema. She did not take any of her medications this morning. She drinks 2-3 beers per day last drink was yesterday. In the ED patient was tachycardic. She became hypoxic. INR was 1.6, Na+ is chronically low, Mg was 1.6 , Troponin was 0.759. CT head was negative for acute processes. CXR showed possible congestion. Humerus XR showed right humerus fracture. She received Ativan, IVFs, pain meds and magnesium. She will be admitted for further workup and treatment. 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 Permanent Comment: Abnormal left breast mammogram Status post core needle biopsy 03/04/2015 Invasive carcinoma grade 2 Estrogen receptor negative, progesterone receptor negative, HER-2/talita negative Status post lumpectomy and sentinel lymph node biopsy 04/01/2015 Stage pT1c pN0M0 G3 Lymphovascular invasion Status post completion of systemic chemotherapy with Adriamycin and Cytoxan for 4 cycles followed by weekly Taxol for 12 weeks completed 10/16/2015 Status post completion of radiation therapy 12/28/2015 received 6240 cGy Status: Chronic (4) Depression with anxiety Status: Chronic (5) HTN (hypertension) Status: Chronic (6) Tobacco use disorder Status: Chronic Surgical Problems: (1) H/O lumpectomy Status: Resolved (2) S/P section Status: Chronic (3) S/P lymph node biopsy Status: Chronic (4) S/P partial mastectomy Status: Chronic (5) S/p placement of a-port Status: Chronic (6) S/P tubal ligation Status: Chronic Family History Diabetes mellitus FATHER FH: atrial fibrillation MOTHER FH: breast cancer AUNT SISTER Heart disease Hypertension Pacemaker MOTHER Social History Smoking Status: Current Every Day Smoker Alcohol Use: 2-3 beers per day Marital Status: Housing status: lives with family Occupational Status: retired Immunizations History of Influenza Vaccine: Yes Influenza Vaccine Date: Mar 30, 2016 History of Tetanus Vaccine?: Yes Tetanus Immunization Date: Jan 30, 2007 History of Pneumococcal: Yes Pneumococcal Date: Dec 27, 2011 Multi-Drug Resistant Organisms History of MDRO: No Allergies Coded Allergies: Sulfa Antibiotics (Verified Allergy, Mild, "SULFA" -- unknown rxn, 09/15/16 ) Home Medications Scheduled Citalopram Hydrobromide (Celexa), 20 MG PO QAM Furosemide (Lasix), 20 MG PO UD Losartan Potassium (Cozaar), 50 MG PO DAILY Magnesium Oxide (Mag-Ox), 400 MG PO QAM Metoprolol Tartrate (Lopressor), 50 MG PO BID Thiamine Hcl (Vitamin B-1), 100 MG PO QAM Warfarin Sod (Coumadin), 2.5 MG PO 2XWK Warfarin Sodium (Coumadin), 5 MG PO 5XWK Scheduled PRN Albuterol Sulfate (Proair Respiclick), 2 PUFFS INH Q4 PRN for WHEEZING/COUGH Lorazepam (Ativan), 1 MG PO Q8H PRN for Anxiety Review of Systems Constitutional: No chills, No fever Eyes: No worsening of vision ENT: No nasal symptoms Respiratory: No cough, No shortness of breath Cardiovascular: + palpitations, No chest pain, No edema Abdomen: No constipation, No diarrhea, No nausea, No pain, No vomiting Musculoskeletal: + joint pain, + muscle pain, No calf pain, No swelling Genitourinary - Female: No dysuria Neurologic: + problem reported (essential tremor ), No numbness/tingling, No vertigo Psychiatric: No anxiety Endocrine: No fatigue Hematologic / Lymphatic: No abnormal bleeding/bruising, No clotting problems Integumentary: No itch, No rash Allergic / Immunologic: No environmental allergies Physical Exam Vital Signs Date Time Temp Pulse Resp B/P Pulse Ox O2 Delivery O2 Flow Rate FiO2 10/09/16 12:35 103 19 93 Nasal Cannula 4.0 10/09/16 12:29 88 Room Air 2.0 10/09/16 12:27 115 10/09/16 12:27 84 Room Air 10/09/16 12:20 84 22 131/76 91 Room Air 10/09/16 12:20 91 Room Air 10/09/16 10:37 36.9 116 17 143/69 94 Room Air General Appearance: + pertinent finding (WD/WN 61 year old female lying in bed in NAD with at bedside ) Head: normocephalic, atraumatic Eyes: PERRL, EOMI, sclerae normal ENT: hearing grossly normal, pharynx normal Neck: supple, no JVD Respiratory/Chest: chest non-tender, lungs clear, normal breath sounds, no respiratory distress, no accessory muscle use Cardiovascular: no edema, no gallop, no JVD, normal peripheral pulses, + systolic murmur, + irregularly irregular Abdomen/GI: normal bowel sounds, non tender, soft Back: normal inspection Extremities/Musculoskelatal: no calf tenderness, normal capillary refill, no pedal edema, + pertinent finding (Sling to right arm, pulses, sensation intact, moves fingers appropriately. ) Neurologic/Psych: alert, oriented x 3, + pertinent finding (essential tremor noted otherwise nonfocal ) Skin: normal color, warm/dry, no rash Lymphatic: no adenopathy Diagnostics Laboratory Results Results Past 24 Hours Test 10/09/16 11:10 Range/Units White Blood Count 10.09 4.8-10.8 K/uL Red Blood Count 3.85 4.2-5.4 M/uL Hemoglobin 13.0 12.0-16.0 g/dL Hematocrit 36.6 37-47 % Mean Corpuscular Volume 95.1 80-100 fL Mean Corpuscular Hemoglobin 33.8 25-34 pg Mean Corpuscular Hemoglobin Concent 35.5 32-36 g/dl Platelet Count 221 130-400 K/uL Mean Platelet Volume 9.2 7.4-10.4 fL Neutrophils (%) (Auto) 82.1 % Lymphocytes (%) (Auto) 8.5 % Monocytes (%) (Auto) 8.8 % Eosinophils (%) (Auto) 0.0 % Basophils (%) (Auto) 0.4 % Neutrophils # (Auto) 8.28 1.4-6.5 K/uL Lymphocytes # (Auto) 0.86 1.2-3.4 K/uL Monocytes # (Auto) 0.89 0.11-0.59 K/uL Eosinophils # (Auto) 0.00 0-0.5 K/uL Basophils # (Auto) 0.04 0-0.2 K/uL RDW Standard Deviation 46.4 36.4-46.3 fL RDW Coefficient of Variation 13.3 11.5-14.5 % Immature Granulocyte % (Auto) 0.2 % Immature Granulocyte # (Auto) 0.02 0.00-0.02 K/uL Prothrombin Time 17.9 9.0-12.0 SECONDS Prothromb Time International Ratio 1.6 0.9-1.1 Activated Partial Thromboplast Time 33.9 21.0-31.0 SECONDS Partial Thromboplastin Ratio 1.3 Sodium Level 132 136-145 mmol/L Potassium Level 4.3 3.5-5.1 mmol/L Chloride Level 97 98-107 mmol/L Carbon Dioxide Level 22 21-32 mmol/L Anion Gap 13.0 3-11 mmol/L Blood Urea Nitrogen 4 7-18 mg/dl Creatinine 0.41 0.60-1.20 mg/dl Est Creatinine Clear Calc Drug Dose 129.1 ml/min Estimated GFR () 127.4 Estimated GFR (Non- 110.0 BUN/Creatinine Ratio 9.7 10-20 Random Glucose 124 70-99 mg/dl Calcium Level 8.3 8.5-10.1 mg/dl Magnesium Level 1.6 1.8-2.4 mg/dl Total Bilirubin 0.7 0.2-1 mg/dl Aspartate Amino Transf (AST/SGOT) 42 15-37 U/L Alanine Aminotransferase (ALT/SGPT) 39 12-78 U/L Alkaline Phosphatase 108 45-117 U/L Total Creatine Kinase 107 26-192 U/L Troponin I 0.759 0-0.045 ng/ml Total Protein 7.2 6.4-8.2 gm/dl Albumin 3.4 3.4-5.0 gm/dl Globulin 3.8 2.5-4.0 gm/dl Albumin/Globulin Ratio 0.9 0.9-2 Thyroid Stimulating Hormone (TSH) 1.530 0.300-4.500 uIu/ml Diagnostic Radiology CXR Per radiologist read: IMPRESSION: 1. Progression of the mild interstitial pulmonary edema. 2. Acute proximal right humerus fracture. CT HEAD Per radiologist read: Impression: No acute intracranial abnormality. R SHOULDER XR Per radiologist read IMPRESSION: Mildly displaced right humeral head/neck fracture as described above. RIGHT HUMERUS XR Per radiologist read: IMPRESSION: Mildly displaced right humeral head/neck fracture as described above. EKG Afib 109 BPM, QTc 441 Impression Assessment and Plan 61 year old female presents to the ED complaining of right shoulder pain following presyncope and fall prior to arrival ELEVATED TROPONIN -Admit to tele -denies chest pain, SOB -troponin 0.759, ? cause, negative nuclear stress test August 2016, LVEF 74% -? demand ischemia -Serial Thais, EKGs -cardiology consult placed -defer repeat echo to cardiology -continue BB -monitor in tele -CBC, PRP, Mg INR in AM -AHA diet AFIB WITH RVR -INR subtherapeutic 1.6 -Rate in the low 100s, missed morning BB -give BB now, then continue BID dosing -continue Coumadin -cardiology consult placed -follow INR daily RIGHT HUMERUS FRACTURE S/P FALL -sling ordered -pain control with Percocet, Dilaudid prn -Ortho consult placed for further input MULTIPLE FALLS secondary to presyncope -CT head negative -patient reports fall following palpitations and lightheadedness - known Afib -monitor heart rhythm in tele -check orthostatic VS -cardiology consult placed -fall precautions PULMONARY EDEMA -CXR read as pulmonary edema, clinical lungs clear appears euvolemic -continue outpatient MWF Lasix dosing HTN -stable -continue BB, Losartan HYPONATREMIA -somewhat chronic in nature per outpatient record review -drinks 2-3 beers daily -Na+132 today, follow daily HYPOMAGNESEMIA -1.6 -replace and follow daily H/O BREAST CA -s/p partial mastectomy, chemo, radiation -h/o radiation pneumonitis TOBACCO ABUSE -Cessation counseling given -Nicotine patch ordered DEPRESSION -continue Celexa, Ativan prn DVT PROPHYLAXIS: Coumadin CODE STATUS: FULL CODE DISPO:In my clinical judgment this beneficiary meets acute admission criteria, established by [facility], that includes being hospitalized through two midnights. Patient seen in collaboration with Dr. Morrissey VTE Prophylaxis VTE Risk Assessment Done? Y/N: Yes Risk Level: Moderate Given or contraindicated: SCD's Note ATTENDING ADDENDUM Record reviewed. Patient interviewed and examined. Care coordinated with Gaby Brunner PA-C. Please refer to her documentation for patient's history. Briefly, 61 YO female with history of chronic AF, hypertension, intermittent vertigo, and other problems as noted. She has fallen twice in the last 2 days; she attributes the falls to dizziness that occurs when she stands suddenly. Lost consciousness after one fall- pt feels that she lost consciousness after she struck her head, not before. With the other fall, she injured her right shoulder. Had some chest pressure a few weeks ago, none since. No SOB. EXAM: General- no distress VS- as noted Neck- + JVD Lungs- few bibasilar rales Heart- irregularly irregular, tachycardic, II/ sys murmur at apex, no gallop appreciated Abdomen- + BS, soft, nontender Extremities- RUE immobilized; no pretibial edema or calf tenderness Neuro- alert, oriented; resting tremor; motor strength lower extremities 5/5 bilaterally; plantar reflexes downgoing bilaterally DATA: INR = 1.6. Mg = 1.6. Troponin = 0.759. Lab studies as noted. CXR- cardiomegaly, pulmonary edema, fx right proximal humerus. X-rays right humerus / shoulder- mildly displaced right humeral head / neck fracture. CT head- negative for bleed or other acute process; "A 1.8 cm groundglass lesion within the left parietal bone. 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 . ASSESSMENT AND PLAN: FALLS / SYNCOPE Mechanism uncertain. Does not appear to be volume depleted. Chronic AF with rapid ventricular response. No acute findings on CT head. Monitor for tachy / mary - arrhythmias. ? vertigo PT eval with when able. ELEVATED TROPONIN Serum troponin 0.759. No associated CP. Recent nuclear stress test 09/06/16 nonischemic. ? secondary to fall. ? demand ischemia. Check serial cardiac markers and EKG's. Consult Cardiology. ATRIAL FIBRILLATION Continue metoprolol for rate control. Hold warfarin pending decision about orthopedic management. CHF Chest x-ray shows apparent pulmonary edema. Recent echo on 09/16/16 showed moderate LVH, LVEF 55-60%, mild-moderate MR. Check BNP. Titrate diuretics. HYPOXIA O2 sats 91-94% on RA upon presentation, fell to 84% after receiving analgesics. Chest x-ray shows pulmonary edema. Patient is a smoker, but no history of obstructive lung disease. Management of CHF as noted above. Incentive spirometry. Follow. FRACTURE RIGHT HUMERUS Consult Ortho. VTE PROPHYLAXIS On warfarin with subtherapeutic INR. Hold anticoagulants due to (1) head injury and (2) possible need for surgical repair of humerus fracture. SCD's. Ambulate. Please refer to SUPRIYA Brunner's documentation for discussion of other issues. Jose Maria Morrissey MD .
[2016-10-09 13:47] VITALS: BP_SYST 144; BP_SYST 156; BP_SYST 157; BP_DIAS 84; BP_DIAS 90; BP_DIAS 91; PULSE 110; TEMP 37.1; O2SAT 91
[2016-10-09] MEDS: OXYCODONE/ACETAMINOPHEN 5-325 TAB PO PRN ×2 (14:34→21:37)
[2016-10-09 14:37] VITALS: BP 156/91; PULSE 110; TEMP 37.1; O2SAT 91; Ht 160 cm; Wt 64.6 kg
[2016-10-09] MEDS ORDERED: LPR50X PO (14:39)
[2016-10-09] MEDS ORDERED: ALBUTEROL HFA 8 GM INHALER INH PRN (14:45)
[2016-10-09] MEDS ORDERED: METOPROLOL TARTRATE 50 MG TAB PO ONE (15:00)
[2016-10-09] MEDS ORDERED: CITALOPRAM 20 MG TAB PO ONE (15:00)
[2016-10-09] MEDS ORDERED: LOSARTAN POTASSIUM 50 MG TAB PO ONE (15:00)
[2016-10-09] MEDS ORDERED: METOPROLOL TARTRATE 100 MG TAB PO ONE (15:15)
[2016-10-09 15:36] VITALS: BP 129/82; PULSE 106; TEMP 36.6; O2SAT 93
[2016-10-09] MEDS ORDERED: WARFARIN SOD 5 MG TAB PO SCH (16:00)
[2016-10-09] MEDS ORDERED: ASPIRIN 81 MG ECTAB PO ONE (16:15)
[2016-10-09] MEDS: HYDROmorphone INJ 1 MG/ML SYR IV PRN ×2 (17:00→23:19)
[2016-10-09 17:47] LABS: CKMB/CK RATIO 2.2 (0-3.0)
[2016-10-09 18:58] VITALS: BP 113/66; PULSE 82; TEMP 36.4; O2SAT 91
[2016-10-09] MEDS ORDERED: GABAPENTIN 600 MG TAB PO SCH (20:45)
[2016-10-09] MEDS ORDERED: METOPROLOL TARTRATE 25 MG TAB PO SCH (21:00)
[2016-10-09] MEDS ORDERED: LORAZEPAM 2 MG TAB PO PRN ×2 (21:00)
[2016-10-09] MEDS ORDERED: GABAPENTIN 1200MG LOADING DOSE PO SCH (21:00)
[2016-10-09] MEDS ORDERED: LORAZEPAM 0.5 MG TAB PO PRN (21:00)
[2016-10-09] MEDS: NICOTINE 7 MG/24 HR TDSY TD SCH (21:00)
[2016-10-09] MEDS ORDERED: LORAZEPAM 2 MG/ML 1 ML VIAL IM PRN (21:00)
[2016-10-09] MEDS: GABAPENTIN 600MG Q6H DOSE PO SCH (21:05)
[2016-10-09] MEDS ORDERED: THIAMINE HCL INJ 100 MG in SYRINGE 9 ML IV ONE (21:30)
[2016-10-09] MEDS ORDERED: FUROSEMIDE INJ 20 MG in SYRINGE 0 ML IV ONE (21:30)
[2016-10-09] MEDS: METOPROLOL TARTRATE 100 MG TAB PO SCH (21:38)
[2016-10-10] VITALS (9 sets, daily range): BP systolic 116–155; BP diastolic 71–99; PULSE 73–97; TEMP 36.7–37.2; O2SAT 91–96
[2016-10-10] MEDS: GABAPENTIN 600MG Q6H DOSE PO SCH ×3 (00:26→11:47)
[2016-10-10] MEDS: OXYCODONE/ACETAMINOPHEN 5-325 TAB PO PRN ×3 (05:07→20:00)
[2016-10-10 06:55] LABS: HEMATOCRIT 34.3 % (37-47); MEAN CELL VOLUME 96.6 fL (80-100); MEAN CORPUSCULAR HEMOGLOBIN 32.4 pg (25-34); MEAN CORPUSCULAR HGB CONC 33.5 g/dl (32-36); MEAN PLATELET VOLUME 9.2 fL (7.4-10.4); PLATELET COUNT 193 K/uL (130-400); RED BLOOD COUNT 3.55 M/uL (4.2-5.4); WHITE BLOOD COUNT 8.61 K/uL (4.8-10.8)
[2016-10-10 07:08] LABS: INR 1.6 (0.9-1.1); PROTHROMBIN TIME (PATIENT) 16.9 SECONDS (9.0-12.0)
[2016-10-10 07:33] LABS: BUN/CREATININE RATIO 18.8 (10-20); CALCIUM 8.6 mg/dl (8.5-10.1); CREATININE 0.48 mg/dl (0.60-1.20); POTASSIUM 4.2 mmol/L (3.5-5.1)
[2016-10-10] MEDS: THIAMINE HCL 50 MG TAB PO SCH (07:53)
[2016-10-10] MEDS: METOPROLOL TARTRATE 100 MG TAB PO SCH ×2 (07:54→22:23)
[2016-10-10] MEDS: LOSARTAN POTASSIUM 50 MG TAB PO SCH (07:54)
[2016-10-10] MEDS: MAGNESIUM OXIDE 400 MG TAB PO SCH (07:54)
[2016-10-10] MEDS: ASPIRIN 81 MG ECTAB PO SCH (07:54)
[2016-10-10] MEDS: CITALOPRAM 20 MG TAB PO SCH (07:54)
[2016-10-10] MEDS ORDERED: FUROSEMIDE 20 MG TAB PO SCH (09:00)
--- NOTE | 2016-10-10 09:42 | Cardiology Consultation ---
Cardiology Consultation Date of Service October 10, 2016. (Renetta Glynn, SAMI) Cardiology Consultation Cardiology Consultation Attending Header Up: Dr. Riggs Requesting Physician: Dr. Morrissey HPI: Michelle Puente is a 61 year old female who is known to the [facility] and [facility] for recent history of persistent atrial fibrillation, noted on admission in July 2016, duration unknown. She was started on metoprolol therapy with anticoagulation for Coumadin in the hopes to proceed with DCCV in 4 weeks. Unfortunately patient has had difficulty maintaining INR and cardioversion attempts have been cancelled due to subtherapeutic levels. Due to ongoing CP and SOB, she underwent nuclear stress testing in August 2016 which was negative for inducible ischemia. Metoprolol tartrate has been titrated as an outpatient to aid with rate control. Her last echo during admission for chest pain, diagnosed with respiratory infection, demonstrated small pericardial effusion. She was to have repeat echo this week at [facility] , not yet completed. Due to SOB, and pulm vascular congestion on recent chest xray, with small b/l pleural effusions, low dose furosemide was also initiated as an outpatient, however patient states she has not yet started medication. Other history includes chronic essential tremors, breast carcinoma s/p chemotherapy and radiation therapy, chronic tobacco abuse, chronic alcohol abuse , HTN, dyslipidemia, depression/anxiety. Patient states she has been experiencing significant gait instability and dizziness, which she attributes to afib and medications. She also has significant tremors which contributes to instability. Yesterday, patient states she bent over became lightheaded and experienced a syncopal episode, subsequently falling forward and hitting her head on floor. LOC apparently was a few seconds, witnessed by . Later that day, patient was sitting and stood up quickly and began to walk to restroom. She became lightheaded and fell hitting her right shoulder. No LOC during this episode. She denies chest pain. SOB at baseline. Cough at baseline. No orthopnea, PND, or LE edema. No sense of palpitations currently. At time of consult, patient resting comfortably. Right arm in sling. She notes pain with minimal movement. Denies chest pain or SOB. No orthopnea, PND or edema. NO sense of palpitations or tachypalpitations. No fever, cough, chills. Review of Systems: A Complete Review of 10 Systems is as stated above or negative. PMH: HTN, goal below 140/90 Adjustment disorder with depressed mood Insomnia Dyslipidemia Breast cancer Paroxysmal atrial fibrillation Tobacco abuse Alcohol abuse Essential tremors Past Surgical History delivery Tubal Ligation Colonoscopy w/ biopsy (rectum) Mastectomy, partial - left 03/2015 Bx lymph node deep axil Placement of a-port tunneled central venous access catheter with port [facility] Dr. Cohen 05/14/2015 Family History: Father with CABG age 70s and pacemaker; Mother with afib and pacemaker. Both living. No history of premature coronary disease or sudden cardiac . Social History: . Chronic tobacco abuse. Chronic alcohol abuse. 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 [employer] Allergies: sulfa Antibiotics Outpatient Medications: Medications Dose Route/Sig Max Daily Dose Days Date Category Dose Instructions Metoprolol Tartrate 50 Mg Tab 100 Mg PO BID 10/09/16 Reported Lasix (Furosemide) 40 Mg Tab 20 Mg PO UD 10/09/16 Reported MWF Coumadin (Warfarin Sodium) 5 Mg Tab 5 Mg PO 5XWK 10/09/16 Reported everyday but monday and monday Coumadin (Warfarin Sod) 2.5 Mg Tab 2.5 Mg PO 2XWK 10/09/16 Reported monday Cozaar (Losartan Potassium) 50 Mg Tab 50 Mg PO DAILY 10/09/16 Reported Ativan (Lorazepam) 1 Mg Tab 1 Mg PO Q8H PRN 09/15/16 Reported Mag-Ox (Magnesium Oxide) 400 Mg Tab 400 Mg PO QAM 09/15/16 Reported Proair Respiclick (Albuterol Sulfate) 108 Mcg/Act Aer 2 Puffs INH Q4 PRN 08/15/16 Reported Vitamin B-1 (Thiamine HCl) 50 Mg Tab 100 Mg PO QAM 05/13/15 Reported Celexa (Citalopram Hydrobromide) 20 Mg Tab 20 Mg PO QAM 04/27/15 Reported OBJECTIVE/PHYSICAL EXAMINATION: Last 8 Hrs Date Time Temp Pulse Resp B/P Pulse Ox O2 Delivery O2 Flow Rate FiO2 10/10/16 07:57 37.0 83 16 126/83 95 Nasal Cannula 4.0 10/10/16 04:00 Nasal Cannula 4.0 10/10/16 03:54 37.1 97 18 133/71 94 Room Air General: no acute distress and stated age Eyes: conjunctiva are pink and non-injected, sclera clear Neck: normal jugular venous pulse, no hepatojugular reflux Chest: normal shape and normal respiratory effort Lungs: clear to auscultation and percussion Cardiac Exam: Irregular irregular. No audible murmurs, rubs, or gallops Abdomen: abdomen soft, non-tender, no abnormal masses and no hepatosplenomegaly Musculoskeletal: no gait disturbance, no weakness Extremities: no edema and no cyanosis Neuro: grossly normal exam Psych: appropriate affect and insight. Data this admission: Labs - Last 24 Hours Test 10/09/16 11:10 10/09/16 16:52 10/09/16 23:05 10/10/16 06:37 White Blood Count 10.09 K/uL 8.61 K/uL Red Blood Count 3.85 M/uL 3.55 M/uL Hemoglobin 13.0 g/dL 11.5 g/dL Hematocrit 36.6 % 34.3 % Mean Corpuscular Volume 95.1 fL 96.6 fL Mean Corpuscular Hemoglobin 33.8 pg 32.4 pg Mean Corpuscular Hemoglobin Concent 35.5 g/dl 33.5 g/dl Platelet Count 221 K/uL 193 K/uL Mean Platelet Volume 9.2 fL 9.2 fL Neutrophils (%) (Auto) 82.1 % Lymphocytes (%) (Auto) 8.5 % Monocytes (%) (Auto) 8.8 % Eosinophils (%) (Auto) 0.0 % Basophils (%) (Auto) 0.4 % Neutrophils # (Auto) 8.28 K/uL Lymphocytes # (Auto) 0.86 K/uL Monocytes # (Auto) 0.89 K/uL Eosinophils # (Auto) 0.00 K/uL Basophils # (Auto) 0.04 K/uL RDW Standard Deviation 46.4 fL 47.4 fL RDW Coefficient of Variation 13.3 % 13.4 % Immature Granulocyte % (Auto) 0.2 % Immature Granulocyte # (Auto) 0.02 K/uL Prothrombin Time 17.9 SECONDS 16.9 SECONDS Prothromb Time International Ratio 1.6 1.6 Activated Partial Thromboplast Time 33.9 SECONDS Partial Thromboplastin Ratio 1.3 Sodium Level 132 mmol/L 131 mmol/L Potassium Level 4.3 mmol/L 4.2 mmol/L Chloride Level 97 mmol/L 97 mmol/L Carbon Dioxide Level 22 mmol/L 27 mmol/L Anion Gap 13.0 mmol/L 7.0 mmol/L Blood Urea Nitrogen 4 mg/dl 9 mg/dl Creatinine 0.41 mg/dl 0.48 mg/dl Est Creatinine Clear Calc Drug Dose 129.1 ml/min 112.5 ml/min Estimated GFR () 127.4 121.0 Estimated GFR (Non- 110.0 104.4 BUN/Creatinine Ratio 9.7 18.8 Random Glucose 124 mg/dl 117 mg/dl Calcium Level 8.3 mg/dl 8.6 mg/dl Magnesium Level 1.6 mg/dl 2.0 mg/dl Total Bilirubin 0.7 mg/dl Aspartate Amino Transf (AST/SGOT) 42 U/L Alanine Aminotransferase (ALT/SGPT) 39 U/L Alkaline Phosphatase 108 U/L Total Creatine Kinase 107 U/L 89 U/L 99 U/L Troponin I 0.759 ng/ml 0.668 ng/ml 0.545 ng/ml Total Protein 7.2 gm/dl Albumin 3.4 gm/dl Globulin 3.8 gm/dl Albumin/Globulin Ratio 0.9 Thyroid Stimulating Hormone (TSH) 1.530 uIu/ml Creatine Kinase MB 2.0 ng/ml 2.0 ng/ml Creatine Kinase MB Ratio 2.2 2.0 Pro-B-Type Natriuretic Peptide 3303 pg/ml 25-Hydroxy Vitamin D Total 7.3 ng/ml EKG on admission, 10/09/16: Atrial fibrillation with rapid ventricular response at 109 bpm Poor R-wave progression: anterior [place] vs. lead placement vs. LVH Abnormal ECG When compared with ECG of 17-SEP-2016 06:54, Nonspecific T wave abnormality now evident in Lateral leads Repeat EKG this AM, 10/10/16: Atrial fibrillation with improved ventricular rate at 86 bpm Abnormal ECG When compared with ECG of 09-OCT-2016 11:06, (unconfirmed) Nonspecific T wave abnormality no longer evident in Lateral leads Chest xray: IMPRESSION: 1. Progression of the mild interstitial pulmonary edema. 2. Acute proximal right humerus fracture. head CT: Impression: No acute intracranial abnormality Shoulder xray: IMPRESSION: Mildly displaced right humeral head/neck fracture as described above. Telemetry reviewed - Atrial fibrillation with rates currently ranging 70-95 bpm Prior Data: TTecho performed last admission 09/16/16: -- Conclusions -- Small pericardial effusion. There are no echocardiographic indications of cardiac tamponade. The left ventricle is normal in size. There is moderate concentric left ventricular hypertrophy. Ejection Fraction = 55-60%. The left ventricular wall motion is normal. The right ventricular systolic function is normal. The left atrium is severely dilated. The right atrium is severely dilated. The mitral regurgitant jet is eccentrically directed. There is mild to moderate mitral regurgitation. Nuclear stress test performed on 09/06/16: Lexiscan nuclear cardiac stress test negative for ischemia. Gated SPECT images reveals normal myocardial thickening and wall motion. The LV ejection fraction is calculated at 74%. Atrial fibrillation with rapid ventricular response noted at rest and with stress. IMPRESSION: 61 year old female 1. S/P fall, questionable syncope - humeral fracture, head contusion -head CT negative -await ortho recommendations regarding humeral fracture - ? need for surgery -persistent gait instability with tremors noted -? orthostatic hypotension vs gait instability with tremors -? candidacy for residential anticoagulation 2. Persistent atrial fibrillation, difficult to control rates -Metoprolol 100 mg BID -Recently elevated LFT's - Unable to use amiodarone. -Coumadin on hold for possible orthopedic surgery -consider digoxin if rates remain difficult to control, despite high dose beta radha. 3. Mildly elevated troponin -non ischemic EKG -negative nuclear stress testing 08/2016 -likely due to elevated ventricular rates -no chest pain reported. 4. Small pericardial effusion noted on echo 08/2016 -repeat echo 5. Pulmonary edema with elevated BNP -low dose furosemide M/W/F - patient was to start as outpatient and did not. -monitor electrolytes 6. chronic alcohol abuse -electrolyte abnormalities, monitor 7. HTN - continue home meds 8. Medical non compliance PLAN: Update 2D echo given small pericardial effusion noted on last echo and mildly elevated troponin. No symptoms to suggest ACS Continue metoprolol fo rate control. Hold Coumadin until ortho evaluation and determine need of surgery. Orthostatic vital signs Case discussed with Dr. Riggs. Will follow. (Renetta Glynn, QUINNC) Cardiology attending: Pt seen and examined, agree with findings and assessment as per Renetta Pereira. Events appear to be orthostatic in nature. Pt with longstanding alcohol use, likely playing a contributory role. Do not believe to be an arrhythmogenic event. Afib with rvr may have amplified orthostatic response though. Long standing difficulty controlling her afib from both a rate and INR standpoint. Will cont beta radha at current, max dose. Will also add cardizem for further rate control. Coumadin on hold for orthopedics eval of fracture. Would recommend heparinization once medically feasible. (Jd Riggs, D.O.)
[2016-10-10] MEDS: HYDROmorphone INJ 1 MG/ML SYR IV PRN ×2 (11:48→22:24)
--- NOTE | 2016-10-10 11:55 | ECHOCARDIOGRAM REPORT ---
*NOTICE TO RECEIVING LIBERTARIAN AGENCY This information is strictly Confidential and protected under [place] law. [place] law prohibits you from making any further disclosure of this information unless further disclosure is expressly permitted by the written consent of the person to whom it pertains or is authorized by law. A general authorization for the release of medical or other information is not sufficient for this purpose. Hospital accepts no responsibility if the information is made available to any other person, INCLUDING THE PATIENT. Interpretation Summary * Name: ELEN CROWDER Study Date: 10/10/2016 09:11 AM BP: 126/83 mmHg * Patient Location: C.2T\S\S239\S\1 HR: 83 * : 1955 (M/d/yyy) Gender: Female Height: 62 in * Age: 61 yrs Ethnicity: CA Weight: 154 lb * Ordering Physician: Renetta Glynn * Referring Physician: Self, Referred * Performed By: Marita Desai RDCS * * Reason For Study: PERICARDIAL EFFUSION LAST ECHO, ELEVATED TROPONIN * BSA: 1.7 m2 * -- Conclusions -- * No significant change compared to previous study of 09/16/16. * Normal LV chamber size and wall thickness. * Normal LV systolic function, EF 60-65%. * No segmental left ventricular wall motion abnormalities are noted. * Moderate to severe mitral annular calcifications. * There is focal calcification of the tip of the anterior MV leaflet. * There is mild mitral regurgitation. * The mitral regurgitant jet is eccentrically directed. * The mitral regurgitant jet is posteriorly directed, which is consistent with anterior leaflet pathology. * Moderate tricuspid regurgitation. * Severe biatrial enlargement. Procedure Details * A complete two-dimensional transthoracic echocardiogram was performed (2D, M-mode, Doppler and color flow Doppler). Left Ventricle * The left ventricle is normal in size. * There is normal left ventricular wall thickness. * Ejection Fraction = 60-65%. * Left ventricular systolic function is normal. * No segmental left ventricular wall motion abnormalities are noted. * The left ventricular wall motion is normal. Right Ventricle * The right ventricular cavity size is normal (basal dimension <4.2 cm in right ventricular apical 4-chamber view). * The right ventricular systolic function is normal as assessed by tricuspid annular plane systolic excursion (TAPSE) (normal >1.5 cm). Atria * The left atrium is severely dilated. * The right atrium is severely dilated. * No ASD detected; PFO is not assessed. Mitral Valve * There is moderate to severe mitral annular calcification. * There is no mitral valve stenosis. * There is focal calcification of the tip of the anterior MV leaflet. There is mild mitral regurgitation. The mitral regurgitant jet is eccentrically directed. The mitral regurgitant jet is posteriorly directed, which is consistent with anterior leaflet pathology. Tricuspid Valve * The tricuspid valve anatomy is normal. * There is no tricuspid stenosis. * There is moderate tricuspid regurgitation. Aortic Valve * The aortic valve is normal in structure and function. Pulmonic Valve * The pulmonary valve is not well seen, but the Doppler examination is normal without significant regurgitation or stenosis. Great Vessels * The aortic root is normal size. Pericardium/Pleural * There is no pericardial effusion. MMode 2D Measurements and Calculations IVSd 0.83 cm IVSs 1.2 cm LVIDd 4.4 cm LVIDs 3.2 cm LVPWd 1.2 cm LVPWs 1.3 cm IVS/LVPW 0.71 FS 27.7 % EDV(Teich) 88.0 ml ESV(Teich) 40.5 ml EF(Teich) 54.0 % EDV(cubed) 85.6 ml ESV(cubed) 32.3 ml EF(cubed) 62.2 % % IVS thick 46.8 % % LVPW thick 13.5 % LV mass(C)d 146.5 grams LV mass(C)dI 85.7 grams/m\S\2 LV mass(C)s 128.8 grams LV mass(C)sI 75.3 grams/m\S\2 CO(Teich) 3.7 l/min CI(Teich) 2.1 l/min/m\S\2 SV(Teich) 47.5 ml SI(Teich) 27.8 ml/m\S\2 CO(cubed) 4.1 l/min CI(cubed) 2.4 l/min/m\S\2 SV(cubed) 53.3 ml SI(cubed) 31.2 ml/m\S\2 Ao root diam 2.8 cm Ao root area 6.0 cm\S\2 LA dimension 4.5 cm LA/Ao 1.6 LVAd ap4 21.3 cm\S\2 LVLd ap4 6.6 cm EDV(MOD-sp4) 57.4 ml LVAs ap4 12.9 cm\S\2 LVLs ap4 5.3 cm ESV(MOD-sp4) 27.5 ml EF(MOD-sp4) 52.1 % LVAd ap2 29.6 cm\S\2 LVLd ap2 7.5 cm EDV(MOD-sp2) 97.0 ml LVAs ap2 18.3 cm\S\2 LVLs ap2 6.2 cm ESV(MOD-sp2) 46.6 ml EF(MOD-sp2) 52.0 % CO(MOD-sp4) 2.3 l/min CI(MOD-sp4) 1.3 l/min/m\S\2 SV(MOD-sp4) 29.9 ml SI(MOD-sp4) 17.5 ml/m\S\2 CO(MOD-sp2) 3.9 l/min CI(MOD-sp2) 2.3 l/min/m\S\2 SV(MOD-sp2) 50.4 ml SI(MOD-sp2) 29.5 ml/m\S\2 Doppler Measurements and Calculations MV E max prosper 139.9 cm/sec MV dec time 0.15 sec Ao V2 max 105.7 cm/sec Ao max PG 4.5 mmHg Ao max PG (full) 0.97 mmHg LV V1 max PG 3.5 mmHg LV V1 max 93.5 cm/sec MR max prosper 475.6 cm/sec MR max PG 90.5 mmHg TR max prosper 247.9 cm/sec
--- NOTE | 2016-10-10 11:59 | Progress Note ---
Internal Med Progress Note Date of Service: October 10, 2016. Provider Documentation: SUBJECTIVE: Patient c/o generalized weakness, pain in right arm. Feels a bit shaky with some tremors. No dizziness, syncope, chest pain, SOB, palpitations, nausea, vomiting, fever, chills. Tele- persistent atrial fibrillation, rate 90s-100s OBJECTIVE: Vital Signs-as noted below Exam: General- AAOX3, Slightly shaky with some tremors, no distress Lungs- few bibasilar rales Heart- irregularly irregular, Systolic murmur + Abdomen- + BS, soft, nontender Extremities- RUE immobilized in sling ; no pretibial edema or calf tenderness Neuro- alert, oriented; resting tremor; No focal deficits Lab data as noted below. Diagnostic Radiology CXR Per radiologist read: IMPRESSION: 1. Progression of the mild interstitial pulmonary edema. 2. Acute proximal right humerus fracture. CT HEAD Per radiologist read: Impression: No acute intracranial abnormality. R SHOULDER XR Per radiologist read IMPRESSION: Mildly displaced right humeral head/neck fracture as described above. RIGHT HUMERUS XR Per radiologist read: IMPRESSION: Mildly displaced right humeral head/neck fracture as described above. EKG Afib 109 BPM, QTc 441 ASSESSMENT & PLAN: Assessment and Plan 61 year old female presents to the ED complaining of right shoulder pain following presyncope and fall prior to arrival MULTIPLE FALLS with hx of presyncope, questionable syncope : -Patient reports fall following palpitations and lightheadedness - known Afib .Says she has had it in past too. She is a bit shaky, does have 2-3 beers /day. Could be secondary to alcoholism in combination with atrial fibrillation. -Orthostatic vitals-negative -Fall precautions -PT/OT ordered -Appreciate cardiology inputs ELEVATED TROPONIN Denies any chest pain, SOB. -Troponin 0.668, 0.545- trending down. negative nuclear stress test August 2016 , LVEF 74% -Likely demand ischemia -Troponin trend, EKG in AM, Repeat Echo ordered by cardiology as had small pericardial effusion outpatient -Appreciate inputs AFIB WITH RVR , now rate better controlled -INR subtherapeutic 1.6 -Continue with Metoprolol BID -continue Coumadin -cardiology consulted. Appreciate inputs. -INR monitoring RIGHT HUMERUS FRACTURE S/P FALL -Immobilization in sling -pain control with Percocet, Dilaudid prn -Ortho consult placed for further input PULMONARY EDEMA : -CXR read as pulmonary edema, clinical lungs clear appears euvolemic, BNP slightly elevated -Continue with MWF Lasix dosing (which she never started outpatient) HTN -stable -continue BB, Losartan HYPONATREMIA -somewhat chronic in nature per outpatient record review -drinks 2-3 beers daily -Na+131 today -Monitor ALCOHOLISM Drinks 2-3 beers daily -Mild shakiness--> monitor for alcohol withdrawal -On gabapentin protocol HYPOMAGNESEMIA - Resolved -1.6 on presentation -Monitor VITAMIN D DEFICIENCY Vit D level 7. -Start Vit D 24114 units q weekly x 6 weeks H/O BREAST CA -s/p partial mastectomy, chemo, radiation -h/o radiation pneumonitis TOBACCO ABUSE -Cessation counseling given -Nicotine patch ordered DEPRESSION -continue Celexa, Ativan prn MEDICAL NON COMPLIANCE Per cardiology as she is known to her practice DVT PROPHYLAXIS: Coumadin;; Subtherapeutic INR. Hold while pending decision re: surgery for humerus fracture CODE STATUS: FULL CODE DISPO: Continue with tele monitoring PT/OT Vital Signs: Date Time Temp Pulse Resp B/P Pulse Ox O2 Delivery O2 Flow Rate FiO2 10/10/16 11:39 36.7 80 16 116/78 96 Nasal Cannula 4.0 10/10/16 08:00 Nasal Cannula 4.0 10/10/16 07:57 37.0 83 16 126/83 95 Nasal Cannula 4.0 10/10/16 04:00 Nasal Cannula 4.0 10/10/16 03:54 37.1 97 18 133/71 94 Room Air 10/10/16 00:02 36.9 73 18 145/80 92 Room Air 10/10/16 00:01 Nasal Cannula 4.0 10/09/16 20:00 Nasal Cannula 4.0 10/09/16 18:58 36.4 82 17 113/66 91 10/09/16 15:36 36.6 106 17 129/82 93 10/09/16 14:37 37.1 110 22 156/91 91 Nasal Cannula 2.0 10/09/16 13:47 37.1 110 22 144/84 91 Nasal Cannula 2.0 157/90 156/91 10/09/16 13:30 102 16 91 10/09/16 12:35 103 19 93 Nasal Cannula 4.0 10/09/16 12:29 88 Room Air 2.0 10/09/16 12:27 115 10/09/16 12:27 84 Room Air 10/09/16 12:20 84 22 131/76 91 Room Air 10/09/16 12:20 91 Room Air Lab Results: Results Past 24 Hours Test 10/09/16 16:52 10/09/16 23:05 10/10/16 06:37 Range/Units Total Creatine Kinase 89 99 26-192 U/L Creatine Kinase MB 2.0 2.0 0.5-3.6 ng/ml Creatine Kinase MB Ratio 2.2 2.0 0-3.0 Troponin I 0.668 0.545 0-0.045 ng/ml Pro-B-Type Natriuretic Peptide 3303 0-900 pg/ml White Blood Count 8.61 4.8-10.8 K/uL Red Blood Count 3.55 4.2-5.4 M/uL Hemoglobin 11.5 12.0-16.0 g/dL Hematocrit 34.3 37-47 % Mean Corpuscular Volume 96.6 80-100 fL Mean Corpuscular Hemoglobin 32.4 25-34 pg Mean Corpuscular Hemoglobin Concent 33.5 32-36 g/dl RDW Standard Deviation 47.4 36.4-46.3 fL RDW Coefficient of Variation 13.4 11.5-14.5 % Platelet Count 193 130-400 K/uL Mean Platelet Volume 9.2 7.4-10.4 fL Prothrombin Time 16.9 9.0-12.0 SECONDS Prothromb Time International Ratio 1.6 0.9-1.1 Sodium Level 131 136-145 mmol/L Potassium Level 4.2 3.5-5.1 mmol/L Chloride Level 97 98-107 mmol/L Carbon Dioxide Level 27 21-32 mmol/L Anion Gap 7.0 3-11 mmol/L Blood Urea Nitrogen 9 7-18 mg/dl Creatinine 0.48 0.60-1.20 mg/dl Est Creatinine Clear Calc Drug Dose 112.5 ml/min Estimated GFR () 121.0 Estimated GFR (Non- 104.4 BUN/Creatinine Ratio 18.8 10-20 Random Glucose 117 70-99 mg/dl Calcium Level 8.6 8.5-10.1 mg/dl Magnesium Level 2.0 1.8-2.4 mg/dl 25-Hydroxy Vitamin D Total 7.3 30-100 ng/ml
[2016-10-10] MEDS ORDERED: ERGOCALCIFEROL 50,000 INTER.UNIT CAP PO SCH (14:00)
--- NOTE | 2016-10-10 14:42 | Progress Note ---
Progress Note Date of Service October 10, 2016. Progress Note Patient does need surgery for humerus fracture, right per orthopedics. Need to optimize her medically prior to considering surgery. Will need cardiology clearance as well.
[2016-10-10] MEDS ORDERED: GABAPENTIN 600MG Q8H DOSE PO SCH (17:00)
--- NOTE | 2016-10-10 17:33 | Progress Note ---
Progress Note Date of Service October 10, 2016. Progress Note The patient is a 61 year old female scheduled for an ORIF of a proximal humeral fracture which happened secondary to a syncopal episode at home. Her head CT was read as no intracranial pathology. She also has a history of HTN, PAF for which she is on coumadin, breast cancer and states she has had radiation pneumonia since December of 2015. She does not use supplemental oxygen at home.Her chest xray shows mild interstial edema for which she was placed on lasix. On auscultation of her lungs I heard mild expiratory wheezing mostly at the bases. Her echocardiogram showed an EF of 60-65% with no regional wall motion abnormalities, moderate TR and severe biatrial enlargement. Her aortic valve is normal. She smokes five ciqarettes a day. Her INR is 1.6. I ordered a prothrombin profile for tomorrow A.M. She has been consented for an intersaclene nereve block if her INR permits and a general anesthetic.
[2016-10-10 21:12] LABS: URINE APPEARANCE CLEAR (CLEAR); URINE BILIRUBIN NEG (NEG); URINE COLOR YELLOW; URINE NITRITE NEG (NEG); URINE SPECIFIC GRAVITY 1.011 (1.000-1.030); UROBILINOGEN NEG (NEG); ZZUR CULT IF INDIC CLEAN CATCH NO
[2016-10-10 21:28] LABS: MANUAL MICROSCOPIC REQUIRED? NO; REVIEW REQ? NO
--- NOTE | 2016-10-10 22:19 | DIAGNOSTIC IMAGING REPORT ---
CT OF THE RIGHT SHOULDER CT DOSE: 214.37 mGy.cm HISTORY: Fracture Assess Proximal Humerus Fracture Right TECHNIQUE: Multiaxial CT images of the right shoulder were performed and reformatted in the sagittal and coronal plane without the use of contrast. COMPARISON: None. FINDINGS: Fracture lateral aspect humeral head involving the greater tuberosity. The fracture extends obliquely to the level of the humeral neck. Slight degree of bony impaction. No evidence dislocation. Glenoid appears to be intact. There are no significant loose bodies. Visualized components of the scapular intact. Fracture extends to and appears to involve the bicipital groove. IMPRESSION: 1. Fracture right humeral neck extending laterally to the greater trochanter. 2. Slight degree of bony impaction. 3. No evidence dislocation. 4. Glenohumeral articular services appear to be intact with no evidence of dislocation. 5. Moderate lateral displacement of the greater tuberosity estimated at 6.5 mm Electronically signed by: Baltazar Chisholm M.D. 10/10/2016 10:17 PM Dictated Date/Time: 10/10/2016 10:13 PM
[2016-10-10] MEDS: GABAPENTIN 600MG Q8H DOSE PO SCH (22:23)
[2016-10-11] VITALS (8 sets, daily range): BP systolic 135–162; BP diastolic 70–107; PULSE 78–105; TEMP 36.8–37; O2SAT 90–96
[2016-10-11] MEDS: OXYCODONE/ACETAMINOPHEN 5-325 TAB PO PRN ×2 (00:15→08:02)
--- NOTE | 2016-10-11 00:50 | ORTHOPEDIC CONSULTATION REPORT ---
DATE OF CONSULTATION: 10/10/2016 REASON FOR CONSULT: Right proximal humerus fracture. HISTORY OF PRESENT ILLNESS: The patient is a 61-year-old white female who states that she had fallen at home and had immediate pain in her right shoulder after the fall. She apparently has had multiple falls over the recent past due to dizziness from her atrial fibrillation. With her pain in her shoulder, she tried to tough it out but at certain point she could not take the pain anymore and her daughter brought her to the Emergency Room. She was seen by the staff, x-rays were taken and was found that she had a proximal humerus fracture. While in the Emergency Room, she became tachycardic and also became hypoxic and was admitted under the medicine service. PAST MEDICAL HISTORY: Atrial fibrillation on chronic Coumadin, hypertension, essential tremor, history of breast carcinoma with a history of chemotherapy, depression, anxiety, tobacco use, chronic alcohol use. PAST SURGICAL HISTORY: Lumpectomy, lymph node biopsy, partial mastectomy, A-port placement, in the past. FAMILY AND SOCIAL HISTORY: As per admitting history and physical. MEDICATIONS: Citalopram 20 mg p.o. q.a.m., Lasix 20 mg p.o. as directed, losartan potassium 50 mg p.o. daily, magnesium oxide 400 mg p.o. q.a.m., metoprolol tartrate 50 mg p.o. b.i.d., vitamin B1, Coumadin 2.5 mg p.o. 2 times A week and 5 mg 5 times a week, albuterol sulfate 2 puffs inhaled q. 4 hours p.r.n., lorazepam 1 mg p.o. q. 8 hours p.r.n. for anxiety. ALLERGIES: SULFA ANTIBIOTICS. REVIEW OF SYSTEMS: As per admitting history and physical. PHYSICAL EXAMINATION: GENERAL: The patient is a 61-year-old white female who is alert and oriented to person and place. She is sitting up in bed with a sling on her right upper extremity and she is talking on the phone whenever I walked in. She at this time complains of right shoulder pain whenever she is trying to move the arm. She is pleasant and does not appear to be in any acute distress. CURRENT VITAL SIGNS: Temperature 36.7, pulse 80, respirations 16, BP 116/78, pulse ox 96% on 4 liters per nasal cannula. EXTREMITIES: On examination of her right upper extremity, she has moderate swelling and bruising of the right shoulder, bruising goes down the arm to the elbow, over the biceps. She is obviously tender on light palpation over the shoulder but has no further tenderness on palpation of the humerus distally. Elbow is nontender and gentle range of motion is proves to be nontender as well. She has good range of motion of her right wrist and fingers and sensation is intact. She states that at the initial onset of her fall, she had difficulty moving her fingers at that time and has some decreased sensation; however, that has returned. She denies any pain in her wrist or forearm and denies pain in the left upper extremity or the lower extremities at this time. NEUROLOGICAL: The patient is alert and oriented to person and place and no gross motor or sensory deficits are noted, although she does state she has some mild decreased sensation in 2 of her fingers and 2 of her toes, which she relates to chemotherapy in the past. X-RAY REVIEW: X-rays reveal a mildly displaced right humeral head and neck fracture with greater tuberosity displacement up to 7 mm. ASSESSMENT: Right humeral head and neck fracture with greater tuberosity displacement. PLAN: At this point in time, Dr. Clayton is talking about ORIF of the proximal humerus fracture. After discussing the case with Dr. Riggs and Dr. Scott, she will have to be optimized prior to surgery. We will continue to follow and await the okay by cardiology and hospitalist service.
[2016-10-11] MEDS: GABAPENTIN 600MG Q8H DOSE PO SCH ×2 (06:00→13:26)
[2016-10-11 06:41] LABS: INR 1.3 (0.9-1.1); PROTHROMBIN TIME (PATIENT) 13.8 SECONDS (9.0-12.0)
[2016-10-11] MEDS: METOPROLOL TARTRATE 100 MG TAB PO SCH ×2 (08:02→23:57)
[2016-10-11] MEDS: CITALOPRAM 20 MG TAB PO SCH (08:04)
[2016-10-11] MEDS: THIAMINE HCL 50 MG TAB PO SCH (08:04)
[2016-10-11] MEDS: MAGNESIUM OXIDE 400 MG TAB PO SCH (08:04)
[2016-10-11] MEDS: LOSARTAN POTASSIUM 50 MG TAB PO SCH (08:04)
[2016-10-11] MEDS: ASPIRIN 81 MG ECTAB PO SCH (08:04)
[2016-10-11] MEDS: NICOTINE 7 MG/24 HR TDSY TD SCH (08:06)
[2016-10-11] MEDS: LORAZEPAM 2 MG/ML 1 ML VIAL IV PRN ×3 (09:18→13:25)
[2016-10-11 09:31] LABS: BUN/CREATININE RATIO 18.8 (10-20); CREATININE 0.4 mg/dl (0.60-1.20)
[2016-10-11 09:39] LABS: CALCIUM 8.5 mg/dl (8.5-10.1)
--- NOTE | 2016-10-11 10:15 | Cardiology Follow-Up ---
Subjective General Date of Service: October 11, 2016. Chief Complaint: dizziness, fall, humerus fx Pt evaluation today including: conversation w/ patient, conversation w/ family , physical exam, chart review, lab review, review of studies, conversation w/ webmethods consultant History of Present Illness Patient sleeping, drowsy. Recently received pain medication. Feeling ok. Offers no complaints. Allergies Coded Allergies: Sulfa Antibiotics (Verified Allergy, Mild, "SULFA" -- unknown rxn, 09/15/16 ) Social History Smoking Status: Current Every Day Smoker Hx Tobacco Use In Past Year?: Yes Hx Alcohol Use - Type And Amou: Yes ( 2 - 3 beers a day) Hx Substance Use - Type And Am: No Problem List Medical Problems: (1) Abnormal EKG Status: Acute (2) Alcohol use Status: Acute (3) Atrial fibrillation Status: Acute (4) Chest pain on respiration Status: Acute (5) Closed fracture of right proximal humerus Status: Acute (6) Elevated troponin Status: Acute (7) Head trauma Status: Acute (8) Hypomagnesemia Status: Acute (9) Hyponatremia Status: Acute (10) Mitral valve regurgitation Status: Acute (11) Supratherapeutic INR Status: Acute (12) Syncope Status: Acute (13) Tachycardia Status: Acute Review of Systems Respiratory: + see HPI Cardiac: + see HPI Physical Exam Vital Signs Last Vital Signs Documentation Date Time Temp Pulse Resp B/P Pulse Ox O2 Delivery O2 Flow Rate FiO2 10/11/16 09:13 37.0 93 20 142/95 90 Room Air High Flow Oxygen 10/11/16 02:47 4.0 Physical Exam Constitutional: Level of Distress: NAD Psychiatric: Mental Status: lethargic Memory: recent memory normal Head: normocephalic Eyes: Pupils: PERRLA Neck: supple Lungs: Respiratory effort: no dyspnea Auscultation: deminished air movement Cardiovascular: Heart Auscultation: no murmurs, no rubs, no gallops, irregular rate rhythm Abdomen: Bowel Sounds: normal Inspection & Palpation: soft Extremities: no edema Assessment and Plan Assessment and Plan 61 year old female 1. S/P fall, questionable syncope - humeral fracture, head contusion -head CT negative -will require ORIF of right humerus 2. Persistent atrial fibrillation, difficult to control rates -Metoprolol 100 mg BID -Rates currently well controlled -Coumadin on hold. INR 1.3 this AM. -resume heparin to coumadin in the post op setting when bleeding risk is minimal. -consider cardizem or digoxin if rates difficult to control. -severe biatrial enlargement noted on echo - maintenance/conversion to NSR would likely be difficult. 3. Mildly elevated troponin -non ischemic EKG -negative nuclear stress testing 08/2016 -Echo updated - Normal LV function without wall motion abnormalities. -non cardiac -no chest pain reported. 4. Small pericardial effusion noted on echo 08/2016 -repeat echo demonstrates resolution of previously noted pericardial effusion 5. Pulmonary edema with elevated BNP - respiratory status stable/improved -low dose furosemide M/W/F -monitor electrolytes 6. chronic alcohol abuse -electrolyte abnormalities, monitor -treat withdrawal symptoms per hospitalist 7. HTN - continue home meds 8. Medical non compliance PLAN: Stable cardiac signs and symptoms. Stable echo findings with preserved LV function. No anginal or CHF symptoms. Afib rates are well controlled. No further cardiac testing is recommended prior to planned ORIF of right humerus. She is considered at least moderate risk for perioperative cardiac complications. Further cardiac testing would not improve/reduce her overall surgical risk. Continue current medications. Case to be discussed with Dr. Riggs. Will follow. Cardiology attending: Pt seen and examined, agree with findings and assessment as per Renetta Pereira. Stable from cardiac standpoint. Rates controlled. Anticoagulation on hold for surgery, will resume post-operatively. Cont metoprolol, can add cardizem for further rate control if needed. May consider psych eval for likely alcoholism. Pre-op risk as discussed, no need to delay surgery from cardiac standpoint. Laboratory Results Last 24 Hours Test 10/10/16 21:00 10/11/16 06:10 Urine Color YELLOW Urine Appearance CLEAR Urine pH 7.0 Urine Specific [place] 1.011 Urine Protein NEG Urine Glucose (UA) NEG Urine Ketones NEG Urine Occult Blood NEG Urine Nitrite NEG Urine Bilirubin NEG Urine Urobilinogen NEG Urine Leukocyte Esterase NEG Prothrombin Time 13.8 SECONDS Prothromb Time International Ratio 1.3 Sodium Level 130 mmol/L Potassium Level 4.0 mmol/L Chloride Level 95 mmol/L Carbon Dioxide Level 28 mmol/L Anion Gap 7.0 mmol/L Blood Urea Nitrogen 8 mg/dl Creatinine 0.40 mg/dl Est Creatinine Clear Calc Drug Dose 138.1 ml/min Estimated GFR () 128.5 Estimated GFR (Non- 110.9 BUN/Creatinine Ratio 18.8 Random Glucose 111 mg/dl Calcium Level 8.5 mg/dl
[2016-10-11] MEDS ORDERED: FENTANYL CITRATE INJ 50 MCG/1 ML 2 ML VIAL ONE ×2 (16:40→20:37)
[2016-10-11] MEDS ORDERED: MIDAZOLAM HCL 1 MG/ML 2ML VIAL ONE ×2 (16:40→16:42)
[2016-10-11] MEDS ORDERED: BUPIVACAINE/EPINEPHRINE 0.25% 1:200,000 30 ML VIAL ONE (16:41)
[2016-10-11] MEDS ORDERED: DEXAMETHASONE SOD INJ 4 MG/ML VIAL ONE ×2 (16:41→18:21)
--- NOTE | 2016-10-11 16:50 | History & Physical Bridge Note ---
H&P Re-Evaluation Bridge Note: I have examined the patient, reviewed the History & Physical and in the interval since the performance of the History & Physical I have noted the following changes of clinical significance: No changes noted
[2016-10-11] MEDS ORDERED: CEFAZOLIN IV 2,000 MG/60 ML D5W IV ONE (16:54)
--- NOTE | 2016-10-11 16:54 | Progress Note ---
Internal Med Progress Note Date of Service: October 11, 2016. Provider Documentation: SUBJECTIVE: some what confused has pain in the right arm afebrile awaiting surgery OBJECTIVE: Vital Signs-as noted below Exam: General-alert and awake ENT-normal hearing Neck-no neck masses Lungs-cta b/l no wheezing or crackles Heart-s1 and s2 heard tachycardia no murmurs Abdomen-soft bowel sounds present non tender no distension Extremities- Right arm in sling Neuro-alert and awake moves extremities Lab data as noted below. ASSESSMENT & PLAN: 61 year old female presents to the ED complaining of right shoulder pain following presyncope and fall prior to arrival MULTIPLE FALLS with hx of presyncope, questionable syncope : mostly from alcoholism hx of a fib echo unremarkable pt/ot when stable ELEVATED TROPONIN Denies any chest pain, SOB. Troponin 0.668, 0.545- trending down. negative nuclear stress test August 2016, LVEF 74% Most Likely demand ischemia echo unremarkable cardiology on board and appreciate inputs AFIB WITH RVR , -INR subtherapeutic 1.3 today on Metoprolol BID holding coumadin for surgery RIGHT HUMERUS FRACTURE S/P FALL Immobilization in sling pain control with Percocet, Dilaudid prn plan for surgery today patient should be at acceptable risk to proceed with surgery PULMONARY EDEMA : CXR read as pulmonary edema, clinical lungs clear appears euvolemic, BNP slightly elevated Will Continue with MWF Lasix dosing (which she never started outpatient) stable will monitor HTN on BB and losartan will monitor HYPONATREMIA somewhat chronic in nature per outpatient record review drinks 2-3 beers daily Na+130 today Will f/u labs. ALCOHOLISM Drinks 2-3 beers daily on alcohol withdrawal protocol with gabapentin and Ativan close monitor HYPOMAGNESEMIA - Resolved 1.6 on presentation VITAMIN D DEFICIENCY Vit D level 7. Started Vit D 60094 units q weekly x 6 weeks H/O BREAST CA s/p partial mastectomy, chemo, radiation h/o radiation pneumonitis TOBACCO ABUSE Cessation counseling Nicotine patch DEPRESSION on Celexa, Ativan prn MEDICAL NON COMPLIANCE Per cardiology as she is known to her practice DVT PROPHYLAXIS: Coumadin;; Subtherapeutic INR. Hold while pending decision re: surgery for humerus fracture scds DISPOSITION to be determined Vital Signs: Date Time Temp Pulse Resp B/P Pulse Ox O2 Delivery O2 Flow Rate FiO2 10/11/16 15:14 36.8 105 21 162/82 93 5.0 10/11/16 12:46 36.8 83 20 137/70 90 Nasal Cannula 4.0 10/11/16 12:00 Nasal Cannula 10/11/16 09:13 37.0 93 20 142/95 90 Room Air High Flow Oxygen 10/11/16 08:00 Nasal Cannula 10/11/16 02:47 37.0 78 17 158/92 92 Nasal Cannula 4.0 10/11/16 00:05 95 Nasal Cannula 4.0 10/10/16 22:43 37.1 90 20 147/73 95 Nasal Cannula 4.0 10/10/16 20:00 91 Nasal Cannula 4.0 10/10/16 19:53 36.9 90 22 155/99 91 Nasal Cannula 4.0 10/10/16 16:40 36.8 86 16 123/85 94 Nasal Cannula 4.0 Lab Results: Results Past 24 Hours Test 10/10/16 21:00 10/11/16 06:10 Range/Units Urine Color YELLOW Urine Appearance CLEAR CLEAR Urine pH 7.0 4.5-7.5 Urine Specific [place] 1.011 1.000-1.030 Urine Protein NEG NEG Urine Glucose (UA) NEG NEG Urine Ketones NEG NEG Urine Occult Blood NEG NEG Urine Nitrite NEG NEG Urine Bilirubin NEG NEG Urine Urobilinogen NEG NEG Urine Leukocyte Esterase NEG NEG Prothrombin Time 13.8 9.0-12.0 SECONDS Prothromb Time International Ratio 1.3 0.9-1.1 Sodium Level 130 136-145 mmol/L Potassium Level 4.0 3.5-5.1 mmol/L Chloride Level 95 98-107 mmol/L Carbon Dioxide Level 28 21-32 mmol/L Anion Gap 7.0 3-11 mmol/L Blood Urea Nitrogen 8 7-18 mg/dl Creatinine 0.40 0.60-1.20 mg/dl Est Creatinine Clear Calc Drug Dose 138.1 ml/min Estimated GFR () 128.5 Estimated GFR (Non- 110.9 BUN/Creatinine Ratio 18.8 10-20 Random Glucose 111 70-99 mg/dl Calcium Level 8.5 8.5-10.1 mg/dl
[2016-10-11] MEDS ORDERED: DexMEDEtomidine HCL IV 100 MCG/ML VIAL IV ONE (17:49)
[2016-10-11] MEDS ORDERED: PHENYLEPHRINE HCL INJ 10 MG/ML VIAL ONE (18:21)
[2016-10-11] MEDS ORDERED: ESMOLOL HCL 10 MG/ML 10 ML VIAL ONE (18:21)
[2016-10-11] MEDS ORDERED: ROCURONIUM BROMIDE 10 MG/ML 5 ML VIAL ONE (18:21)
[2016-10-11] MEDS ORDERED: ONDANSETRON INJ 2 MG/ML 2 ML VIAL ONE (18:21)
[2016-10-11] MEDS ORDERED: PROPOFOL IV EMULSION 10 MG/ML 20 ML VIAL IV ONE (18:21)
[2016-10-11] MEDS ORDERED: LIDOCAINE HCL 2% 2 ML VIAL (20MG/ML) ONE (18:21)
[2016-10-11] MEDS ORDERED: DexMEDEtomidine IV DRIP IV STA (20:37)
[2016-10-11] MEDS ORDERED: [UNRECOGNIZED DRUG - OTHER] IV STA (20:37)
[2016-10-11] MEDS ORDERED: DexMEDEtomidine 4 mcg/ml Loading Dose IV ONE (20:45)
[2016-10-11] MEDS ORDERED: METOPROLOL TARTRATE 1 MG/ML VIAL IV PRN (20:45)
--- NOTE | 2016-10-11 20:49 | [facility] Post Operative Brief Note ---
Immediate Operative Summary Operative Date October 11, 2016. Pre-Operative Diagnosis Right proximal humerus fx Post-Operative Diagnosis Same Procedure(s) Performed Right Proximal Humerus Open Reduction Internal Fixation Surgeon Dr Clayton Laundry Supervisor Surgeon(s) Kel EPPS Estimated Blood Loss 300ml Findings above Specimens none Drains 0 Anesthesia geta, interscalene Complication(s) None Disposition Recovery Room / PACU
[2016-10-11] MEDS ORDERED: NO NSAIDS SCH (21:00)
[2016-10-11] MEDS ORDERED: ALUMINUM/MAGNESIUM SUSP 30 ML UDC PO PRN (21:00)
[2016-10-11] MEDS ORDERED: OXYCODONE HCL IR 5 MG TAB (IMMEDIATE RELEASE) PO PRN (21:00)
[2016-10-11] MEDS ORDERED: GABAPENTIN 600MG Q12H DOSE PO SCH (21:00)
[2016-10-11] MEDS ORDERED: OXYCODONE HCL 10 MG TABCR (OXYCONTIN) PO SCH (21:00)
[2016-10-11] MEDS ORDERED: MoRPHine SULFATE 2 MG/ML CARP IV PRN (21:00)
[2016-10-11] MEDS ORDERED: MIDAZOLAM 125MG/250ML D5W 250 ML IV PRN (21:00)
--- NOTE | 2016-10-11 21:04 | DIAGNOSTIC IMAGING REPORT ---
RIGHT HUMERUS MIN 2 VIEW ROUTINE CLINICAL HISTORY: RT ORIF PROXIMAL HUMERUS Right Fluoroscopy time: 7 minutes and 9 seconds. 2 fluoroscopic spot images. FINDINGS: Patient is status post internal fixation of a right humeral neck fracture with a cortical plate transfixed with screws. The hardware appears intact. The alignment is near-anatomic. IMPRESSION: Fluoroscopy provided for internal fixation of a right humeral neck fracture. Electronically signed by: Jefferson Vasquez M.D. 10/11/2016 9:03 PM Dictated Date/Time: 10/11/2016 9:03 PM
[2016-10-11] MEDS ORDERED: MULTI-VITAMIN INFUSION INJ 10 ML, THIAMINE HCL INJ 100 MG, FoLIC ACID INJ 1 MG in SODIU... IV ONE (21:15)
--- NOTE | 2016-10-11 21:32 | Anesthesiology Progress Note ---
Anesthesia Post Op Note Date & Time October 11, 2016 at 21:28 Vital Signs Pain Intensity: 0.0 Vital Signs Past 12 Hours Date Time Temp Pulse Resp B/P Pulse Ox O2 Delivery O2 Flow Rate FiO2 10/11/16 15:14 36.8 105 21 162/82 93 5.0 10/11/16 12:46 36.8 83 20 137/70 90 Nasal Cannula 4.0 10/11/16 12:00 Nasal Cannula Notes Mental Status: alert / awake / arousable, participated in evaluation Pt Amnestic to Procedure: Yes Nausea / Vomiting: adequately controlled Pain: adequately controlled Airway Patency, RR, SpO2: stable & adequate BP & HR: stable & adequate Hydration State: stable & adequate Anesthetic Complications: no major complications apparent Anesthetic Complications: Patient had hallucinations and significant hemodynamic instability prior to and during induction. Suspect that this may be due to developing alcohol withdrawal as her last drink was 48 hours ago. Due to this, we placed an arterial line after induction and I spoke with the parking meter installer about watching the patient in the ICU overnight. The parking meter installer asked to place the patient on a dexmedetomedine drip and so this was done throughout the case and continued to the ICU. Her hemodynamics were acceptable on arrival to ICU and the patient remains sedated but extubated. A plan for alcohol withdrawal prophylaxis is enacted by the parking meter installer and hospitalist.
[2016-10-11] MEDS: DexMEDEtomidine HCL IV 200 MCG in SODIUM CHLORIDE 0.9% 50ML 48 ML IV PRN ×2 (21:55→23:49)
[2016-10-11] MEDS ORDERED: ACETAMINOPHEN 500 MG TAB PO SCH (22:00)
--- NOTE | 2016-10-11 22:30 | OPERATIVE REPORT ---
DATE OF OPERATION: 10/11/2016 PREOPERATIVE DIAGNOSIS: Right displaced proximal humerus fracture. POSTOPERATIVE DIAGNOSIS: Same. PROCEDURE: Open reduction internal fixation, right proximal humerus fracture. SURGEON: Dr. Clayton. STONE GANG SAWYER: Kel Conroy PA-C, who was necessary for assistance with the procedure with positioning, prepping, draping, retraction and closure. ANESTHESIA: General endotracheal anesthesia with interscalene block. SPECIMENS: None. COMPLICATIONS: None. ESTIMATED BLOOD LOSS: 300 mL INDICATIONS: The patient is a 61-year-old female, who sustained a fall and displaced right proximal humerus fracture. Given the amount of displacement, I recommended open reduction internal fixation with plate fixation. Risks, benefits, and alternatives of surgery, including, but not limited to, infection, DVT, pain, stiffness, need for revision surgery, failure to relieve all symptoms, nonunion, damage to blood vessels, damage to nerves, risks of anesthesia were discussed with the patient and she wished to proceed. DESCRIPTION OF PROCEDURE: The patient was identified, laterality was confirmed and marked. She received a preoperative antibiotic as well as interscalene block. She was transferred to the operating room, placed in supine position, induced general endotracheal anesthesia. She was safely transferred to a slight beach chair position. Right shoulder was prepped and draped in usual sterile manner with ChloraPrep. I made a longitudinal incision, anterior aspect of the shoulder, sharply incising the skin, utilizing Bovie electrocautery to achieve hemostasis. I identified the cephalic vein, mobilized this laterally with the deltoid and developed the deltopectoral interval. I dissected laterally and identified the fracture site. I removed interposing soft tissue. Her bone was quite soft. We started the procedure by placing a 3-hole Synthes proximal humerus locking plate. We placed a screw in the nonlocking oblong hole laterally and then adjusted the height of our plate. We then provisionally reduced with this screw and a couple of K wires. Our initial reduction had a better varus. We removed the K wires and attempted to get the head back out of a varus. We had difficulty in doing this. As we tried to elevate the humeral head, the bone simply crumbled. We were able to get it out until a better position, placed some locking screws proximally. We were then tensioning the plate down to the bone and lost fixation distally. One of the fracture planes extended more distally than was initially appreciated. We removed the 3-hole plate and replaced it with a 5-hole plate to get distal to the more distal fracture. We repositioned the plate once again. We had difficulty in regaining the head out of varus. As we continued to attempt to do this, we had her soft bone simply just crumble. So, we had good stability with the humeral head with sitting; so, we elected to leave it. It was still acceptable reduction, just the medial calcar was a little bit impacted into the diaphysis. I then placed a total of 4 locking screws distally and placed locking screws proximally to the humeral head. We checked screw lengths and adjusted the screw lengths as necessary. Overall, we were satisfied with the reduction and the stability of the fracture. The wound was thoroughly irrigated. The deltopectoral interval was closed with interrupted #1 Ethibond suture. We needed to ligate the cephalic vein to control some bleeding. The subcutaneous tissue was then closed with interrupted 2-0 Vicryl suture and the skin with favian. Sterile dressing was applied and sling placed. All needle and sponge counts were correct at the end of the procedure. The patient was transferred to the PACU in stable condition without apparent complication. I attest to the content of the Intraoperative Record and any orders documented therein. Any exceptions are noted below. JULIANNA
[2016-10-11] MEDS: METOPROLOL TARTRATE 1 MG/ML VIAL IV. SCH (22:44)
[2016-10-11] MEDS: D5W AND 1/2NSS + 20MEQ KCL 1,000 ML IV SCH (22:45)
[2016-10-12] VITALS (29 sets, daily range): BP systolic 102–184; BP diastolic 58–137; PULSE 76–112; TEMP 36.5–37.8; O2SAT 93–97
[2016-10-12] MEDS ORDERED: GABAPENTIN 600MG Q12H DOSE PO SCH
[2016-10-12] MEDS: CEFAZOLIN IV 2,000 MG in DEXTROSE 5% 50ML 50 ML IV SCH ×2 (02:16→10:59)
--- NOTE | 2016-10-12 02:33 | Critical Care Consultation ---
Critical Care Consultation Date of Consultation: October 11, 2016. Late Entry Attending Physician: Efrain Alvarado MD Reason for Consultation: Post-op Monitoring for seizure/DT activity History of Present Illness Michelle Puente is a 61-year-old female who is presently sedated on 0.5 g/kg/hr of Precedex infusion and is a RASS of -3 and therefore can not contribute to patient information. Per records, patient was seen in the emergency room on October 09 for a complaint of right shoulder pain starting the night before at which time she states she had fallen twice over the course of the past 2 days. During one of those falls she did hit her head and reports loss of consciousness; during second fall on a trip to the bathroom from bed she fell on her shoulder with instant pain. Patient reports persistent atrial fibrillation with treatment on Coumadin. She stated that that when her heart is in irregular rhythm she becomes dizzy and often falls; during which time she experiences palpitations. Patient had been seen by medical provider for her shoulder pain and sent here for further workup. In the emergency department her pain was rated as a 10 out of 10; however, she had not taken anything for the pain at that time. The patient did admit to emergency room staff that she drinks regularly (2-3 beers daily). She received multiple medications including morphine and Dilaudid for pain control at that time Ativan for tremors and stress. She was also found to be hypo-magnesemia (1/6) with elevated troponins (0.759). She underwent a head CT that was negative for acute process, chest x-ray without consolidation for possible congestion, and x- ray of her humerus which demonstrated a closed fracture. Patient was admitted for further workup and treatment. Pt was seen by Timo Baires PA-C and Dr. Clayton who planned for a ORIF of the Humerus fracture once patient was optimized from a cardiology stand point. Per Cardiology. Patient had been seen for a recent new onset of persistent atrial fibrillation in July 2016. She had been started on beta radha therapy and anticoagulation via Coumadin with the plans of cardioversion in one month. This plan was canceled after some therapeutic levels with Coumadin treatment were seen; patient had difficulty maintaining a goal INR. Patient also underwent stress testing in August 2016 which was negative for ischemic changes. An echocardiogram performed during last admission for chest pain 09/16 did demonstrate a small pericardial effusion without cardiac. Ejection fraction 55-60%. Left ventricle was of normal size with moderate concentric left ventricular hypertrophy. It was no wall motion abnormality. Left and right atrium were severely dilated. Mitral regurgitation was mild to moderate. She was to repeat this echo agrees with this week and it has not been completed. Patient was the start furosemide for shortness of breath, pulmonary vascular congestion, and pleural effusions; however, she had not started this medication as of this admission. At this point cardiology has recommended that they will continue her current beta radha at max dose and will add Cardizem if needed for further rate control. They plan on holding the Coumadin preoperatively. Patient was taken to the operating room on October 11. Per anesthesia records the patient had experienced hallucinations and was significantly hemodynamically in stable prior to and during the induction of sedation. At that time they suspected alcohol withdrawal as her last drink had been 48 hours previously. Anesthesia had spoken with Dr. Moncada and plans were made for the patient to recover in the ICU overnight and a Precedex drip was started throughout the case and continued to this time. Patient was placed on withdrawal protocol and extubated. ROS cannot be obtained at this time secondary to sedation. Past Medical/Surgical History Medical Problems: Afib Benign neoplasm of colon Carcinoma of upper-outer quadrant of left female breast Depression with anxiety HTN (hypertension) Tobacco use disorder Alcohol abuse Surgical Problems: H/O lumpectomy S/P section S/P lymph node biopsy S/P partial mastectomy S/p placement of a-port S/P tubal ligation Family History Diabetes mellitus FATHER FH: atrial fibrillation MOTHER FH: breast cancer AUNT SISTER Heart disease Hypertension Pacemaker MOTHER Social History Smoking Status: Current Every Day Smoker Alcohol Use: 2-3 beers per day Marital Status: Housing Status: lives with significant other Occupation Status: retired Allergies Coded Allergies: Sulfa Antibiotics (Verified Allergy, Mild, "SULFA" -- unknown rxn, 09/15/16 ) Home Medications Scheduled Citalopram Hydrobromide (Celexa), 20 MG PO QAM Furosemide (Lasix), 20 MG PO UD Losartan Potassium (Cozaar), 50 MG PO DAILY Magnesium Oxide (Mag-Ox), 400 MG PO QAM Metoprolol Tartrate (Metoprolol Tartrate), 100 MG PO BID Thiamine Hcl (Vitamin B-1), 100 MG PO QAM Warfarin Sod (Coumadin), 2.5 MG PO [id number] Warfarin Sodium (Coumadin), 5 MG PO [id number] Scheduled PRN Albuterol Sulfate (Proair Respiclick), 2 PUFFS INH Q4 PRN for WHEEZING/COUGH Lorazepam (Ativan), 1 MG PO Q8H PRN for Anxiety Current Inpatient Medications Current Inpatient Medications Medications (Trade) Dose Ordered Sig/Ton Route Start Time Stop Time Status Last Admin Dose Admin Acetaminophen (Tylenol Tab) 650 mg Q4H PRN PO 10/09/16 13:00 11/08/16 12:59 Ondansetron HCl (Zofran Inj) 4 mg Q6H PRN IV 10/09/16 13:00 11/08/16 12:59 Nitroglycerin (Nitrostat Tab) 0.4 mg UD PRN SL 10/09/16 13:00 11/08/16 12:59 Citalopram Hydrobromide (celeXA TAB) 20 mg QAM PO 10/10/16 09:00 11/09/16 08:59 Future Hold 10/11/16 08:04 20 MG Losartan Potassium (coZAAR TAB) 50 mg DAILY PO 10/10/16 09:00 11/09/16 08:59 Future Hold 10/11/16 08:04 50 MG Magnesium Oxide (Mag-Ox Tab) 400 mg QAM PO 10/10/16 09:00 11/09/16 08:59 Future Hold 10/11/16 08:04 400 MG Thiamine HCl (Vitamin B-1 Tab) 100 mg QAM PO 10/10/16 09:00 11/09/16 08:59 Future Hold 10/11/16 08:04 100 MG Albuterol (Ventolin Hfa Inhaler) 2 puffs Q4H PRN INH 10/09/16 14:45 11/08/16 14:44 Oxycodone/ Acetaminophen (Percocet 5-325mg Tab) 1 tab Q4H PRN PO 10/09/16 13:30 10/23/16 13:29 Future Hold 10/11/16 08:02 1 TAB Nicotine (Nicoderm Cq 7 Mg Patch) 1 patch QAM TD 10/10/16 09:00 11/09/16 08:59 10/11/16 08:06 1 PATCH Miscellaneous (Remove Nicoderm Patch) 1 ea HS N/A 10/09/16 21:00 11/08/16 20:59 10/11/16 23:56 1 EA Furosemide (Lasix Tab) 20 mg MoWeFr@0900 PO 10/10/16 09:00 11/09/16 08:59 Future Hold 10/10/16 07:54 20 MG Metoprolol Tartrate (Lopressor Tab) 100 mg BID PO 10/09/16 21:00 11/08/16 20:59 Future Hold 10/11/16 08:02 100 MG Aspirin (Ecotrin Tab) 81 mg QAM PO 10/10/16 09:00 11/09/16 08:59 10/11/16 08:04 81 MG Gabapentin (Neurontin Tab) 600 mg Q12H PO 10/12/16 00:00 10/12/16 12:01 Gabapentin (Neurontin Tab) 600 mg Q24H PO 10/13/16 12:00 10/13/16 12:01 Ergocalciferol (Vitamin D Cap) 50,000 interunit Q7D PO 10/10/16 14:00 11/09/16 13:59 Future Hold 10/10/16 16:21 50,000 INTERUNIT Metoprolol Tartrate 5 mg 5 mg Q6 PRN IV 10/11/16 20:45 11/10/16 20:44 Dexmedetomidine HCl/Sodium Chloride (PreCEDEX INJ/ Nss 50ml) 50 ml @ 0 mls/hr Q0M PRN IV 10/11/16 20:45 10/15/16 20:44 10/11/16 23:49 9.1 MLS/HR Metoprolol Tartrate 5 mg 5 mg Q6H IV. 10/11/16 22:00 11/10/16 21:59 10/11/16 22:44 5 MG Thiamine HCl/ Syringe (Vitamin B-1 Inj/ Syringe) 10 ml @ 2 mls/min Q24H IV 10/12/16 08:00 11/11/16 07:59 Lorazepam PRN Dosing -Active Protocol Q1H PRN IV 10/11/16 21:00 11/10/16 20:59 Folic Acid 1 mg/ Syringe 10 ml @ 5 mls/min QAM IV 10/12/16 09:00 11/11/16 08:59 Pantoprazole Sodium/Syringe (Protonix Inj/ Syringe) 10 ml @ 5 mls/min DAILY@11 IV 10/12/16 11:00 11/11/16 10:59 Morphine Sulfate 1 mg 1 mg Q4 PRN IV 10/11/16 21:00 10/25/16 20:59 Midazolam HCl (Midazolam 125MG/ 250ML D5w) 250 ml @ 0 mls/hr Q0M PRN IV 10/11/16 21:00 11/10/16 20:59 Al Hydroxide/Mg Hydroxide (Maalox Susp) 30 ml Q4H PRN PO 10/11/16 21:00 11/10/16 20:59 Pantoprazole Sodium 40 mg 40 mg QAM PO 10/12/16 09:00 11/11/16 08:59 Future Hold Potassium Chloride/Dextrose/ Sod Cl (D5W And 1/2nss + 20meq KCl) 1,000 ml @ 100 mls/hr Q10H IV 10/11/16 23:30 11/10/16 23:29 10/11/16 22:45 100 MLS/HR Miscellaneous Medication (No Nsaids) 1 ea UD N/A 10/11/16 21:00 11/10/16 20:59 Oxycodone HCl (Roxicodone Immediate Rel Tab) `1-2 TABS FOR PAIN `1 TAB... Q4H PRN PO 10/11/16 21:00 10/25/16 20:59 Future Hold Oxycodone HCl (Oxycontin Tab) 10 mg Q12 PO 10/11/16 21:00 10/25/16 20:59 Future Hold Acetaminophen (Tylenol Tab) 1,000 mg Q8 PO 10/11/16 22:00 11/10/16 21:59 Future Hold Multivitamins (Multivitamin Tab) 1 tab DAILY PO 10/12/16 09:00 11/11/16 08:59 Future Hold Ferrous Gluconate 324 mg 324 mg TIDM PO 10/12/16 07:15 11/11/16 07:14 Future Hold Cefazolin Sodium/ Dextrose (Ancef Iv/D5 50ml) 60 ml @ 100 mls/hr Q8H IV 10/12/16 02:00 10/12/16 10:35 Review of Systems ROS cannot be obtained secondary to patient condition and sedation. Physical Exam Date Time Temp Pulse Resp B/P Pulse Ox O2 Delivery O2 Flow Rate FiO2 10/11/16 22:44 87 147/89 10/11/16 22:00 Mask 10/11/16 21:40 36. 86 21 141/77 95 Mask 9 10/11/16 21:30 36.6 77 24 138/111 95 Mask 9 10/11/16 21:20 36.6 94 24 107/82 95 Mask 9 10/11/16 21:10 36.4 21 138/66 94 Mask 9 10/11/16 15:14 36.8 105 21 162/82 93 5.0 10/11/16 12:46 36.8 83 20 137/70 90 Nasal Cannula 4.0 10/11/16 12:00 Nasal Cannula 10/11/16 09:13 37.0 93 20 142/95 90 Room Air High Flow Oxygen 10/11/16 08:00 Nasal Cannula 10/11/16 02:47 37.0 78 17 158/92 92 Nasal Cannula 4.0 Vital Signs - as noted Laboratory Data - as noted Physical Exam: General - NAD, RASS -3 Eyes - Pupils pinpoint and equal, EOM not assessed. No icterus ENT - Oxygen Mask in place, O2 at 8L Neck - Supple, trachea midline, no masses or lymphadenopathy, no JVD or bruits Lungs - No paradoxical chest wall movement, coarse to auscultation bilaterally, no wheezes, rales, or rhonchi Heart - Normal rate with irregular rhythm, No murmur, rubs, clicks, or gallops appreciated Abdomen - BS present, no bruits noted, tympanic to percussion, soft, nontender, nondistended, no organomegaly Extremities - No edema, pedal pulses intact Neuro - [place] Coma Scale: 9 Strength: Not fully assessed, patient attempts to move all extremities Reflexes: Normal & equal CN:no facial asymmetry, No unilateral differences noted Laboratory Results Last 24 Hours Test 10/11/16 06:10 Prothrombin Time 13.8 SECONDS Prothromb Time International Ratio 1.3 Sodium Level 130 mmol/L Potassium Level 4.0 mmol/L Chloride Level 95 mmol/L Carbon Dioxide Level 28 mmol/L Anion Gap 7.0 mmol/L Blood Urea Nitrogen 8 mg/dl Creatinine 0.40 mg/dl Est Creatinine Clear Calc Drug Dose 138.1 ml/min Estimated GFR () 128.5 Estimated GFR (Non- 110.9 BUN/Creatinine Ratio 18.8 Random Glucose 111 mg/dl Calcium Level 8.5 mg/dl Diagnostic Results RIGHT HUMERUS MIN 2 VIEW ROUTINE CLINICAL HISTORY: RT ORIF PROXIMAL HUMERUS Right Fluoroscopy time: 7 minutes and 9 seconds. 2 fluoroscopic spot images. FINDINGS: Patient is status post internal fixation of a right humeral neck fracture with a cortical plate transfixed with screws. The hardware appears intact. The alignment is near-anatomic. IMPRESSION: Fluoroscopy provided for internal fixation of a right humeral neck fracture. Electronically signed by: Jefferson Vasquez M.D. 10/11/2016 9:03 PM Dictated Date/Time: 10/11/2016 9:[address] OF THE RIGHT SHOULDER CT DOSE: 214.37 mGy.cm HISTORY: Fracture Assess Proximal Humerus Fracture Right TECHNIQUE: Multiaxial CT images of the right shoulder were performed and reformatted in the sagittal and coronal plane without the use of contrast. COMPARISON: None. FINDINGS: Fracture lateral aspect humeral head involving the greater tuberosity. The fracture extends obliquely to the level of the humeral neck. Slight degree of bony impaction. No evidence dislocation. Glenoid appears to be intact. There are no significant loose bodies. Visualized components of the scapular intact. Fracture extends to and appears to involve the bicipital groove. IMPRESSION: 1. Fracture right humeral neck extending laterally to the greater trochanter. 2. Slight degree of bony impaction. 3. No evidence dislocation. 4. Glenohumeral articular services appear to be intact with no evidence of dislocation. 5. Moderate lateral displacement of the greater tuberosity estimated at 6.5 mm Electronically signed by: Baltazar Chisholm M.D. 10/10/2016 10:17 PM Dictated Date/Time: 10/10/2016 10:13 PM CHEST ONE VIEW PORTABLE HISTORY: Fall. EVALUATE ALTERED MENTAL STATUS/WEAKNESS COMPARISON: Chest 09/15/2016. FINDINGS: No pneumothorax. No pleural effusions. The heart remains mildly enlarged. Progressive diffuse interstitial thickening. This is consistent with mild pulmonary edema. A proximal right Humerus fracture. No new focal lung consolidations. IMPRESSION: 1. Progression of the mild interstitial pulmonary edema. 2. Acute proximal right humerus fracture. Electronically signed by: Jefferson Vasquez M.D. 10/09/2016 12:06 PM Dictated Date/Time: 10/09/2016 12:[address]AST CT DOSE: 537.48 mGy.cm HISTORY: EVALUATE ALTERED MENTAL STATUS/WEAKNESS TECHNIQUE: Multiaxial CT images of the head were performed without the use of intravenous contrast. Automated exposure control was utilized for this study. Comparison: None. Findings: Small amount of fluid within the right maxillary sinus. The mastoid air cells are clear. A 1.8 cm groundglass lesion within the left parietal bone. 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 The calvarium and skull base are intact. The ventricles and sulci are within normal limits. There is no mass, hematoma, midline shift, or acute infarct. Impression: No acute intracranial abnormality. Electronically signed by: Jefferson Vasquez M.D. 10/09/2016 11:46 AM Dictated Date/Time: 10/09/2016 11:43 AM RIGHT SHOULDER MIN 2 VIEWS ROUTINE, RIGHT HUMERUS MIN 2 VIEWS ROUTINE CLINICAL HISTORY: fall pain Right. Right shoulder and right arm pain. COMPARISON STUDY: None. FINDINGS: The bones are osteopenic. There is a fracture within the right humeral neck which extends to the greater tuberosity of the humeral head. This is mildly displaced. The greater tuberosity demonstrates up to 7 mm of lateral displacement. The mid to distal humerus appears intact. Soft tissue swelling within the right shoulder. The right clavicle appears intact. IMPRESSION: Mildly displaced right humeral head/neck fracture as described above. Electronically signed by: Jefferson Vasquez M.D. 10/09/2016 12:07 PM Dictated Date/Time: 10/09/2016 12:06 PM RIGHT SHOULDER MIN 2 VIEWS ROUTINE, RIGHT HUMERUS MIN 2 VIEWS ROUTINE CLINICAL HISTORY: fall pain Right. Right shoulder and right arm pain. COMPARISON STUDY: None. FINDINGS: The bones are osteopenic. There is a fracture within the right humeral neck which extends to the greater tuberosity of the humeral head. This is mildly displaced. The greater tuberosity demonstrates up to 7 mm of lateral displacement. The mid to distal humerus appears intact. Soft tissue swelling within the right shoulder. The right clavicle appears intact. IMPRESSION: Mildly displaced right humeral head/neck fracture as described above. Electronically signed by: Jefferson Vasquez M.D. 10/09/2016 12:07 PM Dictated Date/Time: 10/09/2016 12:06 PM Assessment & Plan (1) ALCOHOL DEPENDENCE WITH WITHDRAWAL, UNSPECIFIED (2) Hypomagnesemia (3) Syncope (4) Elevated troponin (5) Head trauma (6) Closed fracture of right proximal humerus (7) HTN (hypertension) (8) Afib (9) Tobacco use disorder Neuro/Psych: * Neuro patient currently sedated on 0.5 mcg/kg/h of dexmedetomidine to RASS of -3 * Alcohol dependence * Banana bag * For acid * Thiamine * Multivitamin * Continue alcohol withdrawal protocol: Continue tapering of Gabapentin * Wean Precedex to RASS of 0 to -1 * Patient is currently without tremor or other signs of DT * Tobacco abuse * Nicotine patch 7 mg ordered; remove at night * Smoking cessation/education Cardiac: * Persistent A. fib noted on monitor, irregular rhythm noted per auscultation * Dr. Riggs/Renetta Glynn PA-C consult and following * Restart cardiac meds per cardiology and ortho * Monitor on telemetry * History of essential hypertension; systolic blood pressures running in the high 140s to low 150s via arterial line * Anticoagulation currently being held in postop setting * Repeat EKG every morning * Troponin Trending down; Likely increased due to demand Ortho: * POD # 0: ORIF of Humerus * Patient currently sedated, pain appears well controlled * Prophylactic 2 g Ancef * Dr. Clayton following/consulted: See his recommendation for post-op management * Will likely need physical therapy Pulmonary: * Current every day smoker, nicotine patch removed for night * Wean oxygen as saturations allow * Was hypoxic in emergency department; continuous of 8 L on simple face mask with saturations > 90% * Continue current respiratory regimen * Albuterol inhaler every 4 hours PRN wheezing * No wheezing currently on physical exam * Prior Pulmonary Congestion noted on CXR, Course Breath Sounds throughout monitor for Fluid Overload * Repeat CXR in AM : * Neg (-)1L currently * Fluid @ 100 NSS + 20KCl * Diaz in place to gravity * Monitor Daily Labs GI: * No BM this admission: Consider bowel regimen in next 24-48 hours * Will monitor for diet, as sedation continues to be weaned * Trend Liver Profile ID: * Prophylactic postop 2 g Ancef IV * Lactic acid ordered for morning * Monitor fever curve * No current sign of infection Heme: * Hemoglobin dropped from 13.0-11.5; likely dilutional will monitor * Follow CBC in morning * Platelets stable * Coag: PT 13.8, INR 1.3 * Patient will need to be restarted on anticoagulation after postoperative period 2/2 persistent atrial fibrillation Endocrine: * No history of diabetes/thyroid disease * Accu-Cheks per protocol Access: PIVs in place, maintain 2. Arterial line currently in place for BP monitoring (Can remove prior to ICU D/C) CCT: 60 minutes; Not including any billable procedures. Thank you for including us in the care of this patient. Please review Dr. Tanner Moncada's addendum for further recommendations. I have personally evaluated and examined this patient. I agree with assessment and plan of Oscar Burgess PA-C. Since having visual hallucinations if improved maybe transfer later today. Weaning precedex.
[2016-10-12] MEDS: METOPROLOL TARTRATE 1 MG/ML VIAL IV. SCH ×2 (03:39→11:02)
[2016-10-12] MEDS: DexMEDEtomidine HCL IV 200 MCG in SODIUM CHLORIDE 0.9% 50ML 48 ML IV PRN (05:18)
[2016-10-12 05:40] LABS: HEMATOCRIT 25.7 % (37-47); MEAN CELL VOLUME 97.3 fL (80-100); MEAN CORPUSCULAR HEMOGLOBIN 34.5 pg (25-34); MEAN CORPUSCULAR HGB CONC 35.4 g/dl (32-36); MEAN PLATELET VOLUME 9.9 fL (7.4-10.4); PLATELET COUNT 178 K/uL (130-400); RED BLOOD COUNT 2.64 M/uL (4.2-5.4); WHITE BLOOD COUNT 9.49 K/uL (4.8-10.8)
[2016-10-12 05:53] LABS: INR 1.2 (0.9-1.1); PROTHROMBIN TIME (PATIENT) 13.4 SECONDS (9.0-12.0)
[2016-10-12 06:47] LABS: ALKALINE PHOSPHATASE 65 U/L (45-117); ALT/SGPT 20 U/L (12-78); BLOOD UREA NITROGEN 7 mg/dl (7-18); BUN/CREATININE RATIO 24.7 (10-20); CARBON DIOXIDE 26 mmol/L (21-32); CHLORIDE 105 mmol/L (98-107); CREATININE 0.28 mg/dl (0.60-1.20); GLUCOSE 164 mg/dl (70-99)
[2016-10-12 06:48] LABS: SODIUM 138 mmol/L (136-145)
[2016-10-12 07:10] LABS: CALCIUM 8.2 mg/dl (8.5-10.1)
[2016-10-12 07:10] LABS: AST/SGOT 24 U/L (15-37); MAGNESIUM 1.6 mg/dl (1.8-2.4); POTASSIUM 4.1 mmol/L (3.5-5.1)
--- NOTE | 2016-10-12 07:57 | DIAGNOSTIC IMAGING REPORT ---
SINGLE VIEW CHEST CLINICAL HISTORY: Pulmonary vascular congestion. FINDINGS: An AP, portable, upright chest radiograph is compared to study dated 10/09/2016. The examination is degraded by portable technique and patient rotation. The heart is enlarged and there is atherosclerotic calcification of the thoracic aorta. There is pulmonary vascular congestion and interstitial edema. This has significantly worsened from 10/09/2016. Emphysema is suggested. There are layering pleural effusions with bibasilar consolidation. No pneumothorax is seen. The skeletal structures are osteopenic. Again seen is a right proximal humeral fracture with postoperative change, overlying soft tissue edema, and skin clips. IMPRESSION: 1. Cardiomegaly with evidence of congestive failure and interstitial edema. This has significantly worsened from 10/09/2016. 2. Layering pleural effusions and bibasilar consolidation. This likely represents atelectasis. Correlated clinically for evidence of superimposed pneumonia. 3. Postoperative change is noted in the right shoulder, new from previous. Electronically signed by: Joseph Morel M.D. 10/12/2016 7:56 AM Dictated Date/Time: 10/12/2016 7:54 AM
[2016-10-12] MEDS ORDERED: THIAMINE HCL INJ 100 MG in SYRINGE 9 ML IV SCH (08:00)
--- NOTE | 2016-10-12 08:12 | Orthopedic Progress Note ---
Orthopedic Progress Note Date of Service October 12, 2016. Subjective Post OP Day: 1 Additional Notes: Pt awake. "tired". Pain controlled at present time. Falls asleep off and on but easily awoken. Objective Dressings intact. RUE in sling. Repositioned sling. No pain in elbow with ROM , moving all fingers currently. She has a slight tingling sensation in the thumb. Date Time Temp Pulse Resp B/P Pulse Ox O2 Delivery O2 Flow Rate FiO2 10/12/16 06:26 83 27 167/97 96 10/12/16 06:00 149/80 10/12/16 05:00 80 21 97 10/12/16 05:00 151/81 10/12/16 04:02 81 23 146/99 94 10/12/16 04:00 36.8 10/12/16 04:00 96 Nasal Cannula 4.0 10/12/16 04:00 146/80 10/12/16 03:39 85 146/82 10/12/16 03:00 151/82 10/12/16 02:44 149/81 10/12/16 02:02 87 24 142/101 96 10/12/16 02:00 149/80 10/12/16 01:01 82 23 151/137 96 10/12/16 01:00 149/80 10/12/16 00:02 84 22 165/109 95 10/12/16 00:00 152/83 10/11/16 23:59 36.8 10/11/16 23:59 96 Mask 8.0 10/11/16 23:01 87 19 135/107 95 10/11/16 23:00 147/80 10/11/16 22:44 87 147/89 10/11/16 22:00 Mask 10/11/16 21:40 36. 86 21 141/77 95 Mask 9 10/11/16 21:30 36.6 77 24 138/111 95 Mask 9 10/11/16 21:20 36.6 94 24 107/82 95 Mask 9 10/11/16 21:10 36.4 21 138/66 94 Mask 9 10/11/16 15:14 36.8 105 21 162/82 93 5.0 10/11/16 12:46 36.8 83 20 137/70 90 Nasal Cannula 4.0 10/11/16 12:00 Nasal Cannula 10/11/16 09:13 37.0 93 20 142/95 90 Room Air High Flow Oxygen 10/11/16 08:00 Nasal Cannula Laboratory Results 24 Hours: Test 10/12/16 05:30 Hematocrit 25.7 % Hemoglobin 9.1 g/dL Prothromb Time International Ratio 1.2 Prothrombin Time 13.4 SECONDS Assessment & Plan Assessment: POD 1 s/p ORIF Right Proximal Humerus Afib Benign neoplasm of colon Carcinoma of upper-outer quadrant of left female breast Depression with anxiety HTN (hypertension) Tobacco use disorder Alcohol abuse Plan: As per Med/Cards/Psychologists services Plan for gentle PT/OT when ok with above services NWB RUE Sling on at all times except for bathing/dressing. May loosen for elbow/wrist discomfort. Discussed starting DVT prophylaxis with Dr Riggs. Would like to wait at least 24 hours from the time of surgery. Inhouse Planning Pain Management: Morphine, PO Tylenol
[2016-10-12] MEDS: ASPIRIN 81 MG ECTAB PO SCH (08:31)
[2016-10-12] MEDS: NICOTINE 7 MG/24 HR TDSY TD SCH (08:33)
[2016-10-12] MEDS: D5W AND 1/2NSS + 20MEQ KCL 1,000 ML IV SCH (08:34)
[2016-10-12] MEDS: FoLIC ACID INJ 1 MG in SYRINGE 9.8 ML IV SCH (08:34)
[2016-10-12] MEDS: MAGNESIUM SULFATE 1GM / D5W 1 GM in PREMIXED IN D5W 100 ML IV SCH ×2 (08:45→09:39)
[2016-10-12] MEDS ORDERED: PANTOprazole SOD 40 MG TAB PO SCH (09:00)
[2016-10-12] MEDS ORDERED: CHLORDIAZEPOXIDE 25 MG CAP PO ONE (09:30)
[2016-10-12] MEDS: LORAZEPAM 2 MG/ML 1 ML VIAL IV PRN (09:32)
--- NOTE | 2016-10-12 09:47 | Cardiology Follow-Up ---
Subjective Subjective Date of Service: October 12, 2016. Pt evaluation today including: physical exam, chart review, lab review, review of studies, conversation w/ ent consultant, review of inpatient medication list Additional Details: Pt seen and examined, currently sedated and sleeping. Events of last PM reviewed. Pt recovering in ICU for alcohol withdrawal post-operatively. Tele reviewed: atrial fibrillation rate controlled, brief santa of wide complex tach, likely aberrancy Problem List Medical Problems: (1) Abnormal EKG Status: Acute (2) Alcohol use Status: Acute (3) Atrial fibrillation Status: Acute (4) Chest pain on respiration Status: Acute (5) Closed fracture of right proximal humerus Status: Acute (6) Elevated troponin Status: Acute (7) Head trauma Status: Acute (8) Hypomagnesemia Status: Acute (9) Hyponatremia Status: Acute (10) Mitral valve regurgitation Status: Acute (11) Supratherapeutic INR Status: Acute (12) Syncope Status: Acute (13) Tachycardia Status: Acute Review of Systems Respiratory: + see HPI, No cough, No dyspnea at rest, No dyspnea on exertion, No hemoptysis, No problem reported, No shortness of breath, No sputum, No wheezing Cardiac: + see HPI, No PND, No chest pain, No claudication, No edema, No orthopnea, No palpitations, No problem reported Objective Vital Signs Last Vital Signs Documentation Date Time Temp Pulse Resp B/P Pulse Ox O2 Delivery O2 Flow Rate FiO2 10/12/16 07:00 36.5 82 25 139/86 94 10/12/16 04:00 Nasal Cannula 4.0 Physical Exam: General Appearance: WD/WN, no apparent distress Eyes: bilateral eyes normal inspection ENT: normal ENT inspection, hearing grossly normal, pharynx normal Neck: supple, no adenopathy, thyroid normal, no JVD, no carotid bruits, trachea midline Respiratory/Chest: lungs clear, no respiratory distress, no accessory muscle use Cardiovascular: no edema, no gallop, no JVD, no murmur, + irregularly irregular Abdomen: normal bowel sounds, non tender, soft, no organomegaly, no pulsatile mass Extremities: normal inspection, no pedal edema, no calf tenderness Skin: normal color, warm/dry, no rash Lymphatic: no adenopathy Assessment and Plan 1. atrial fibrillation rate controlled on IV metoprolol anticoagulation held for surgery would start heparin full dose without IV bolus once bleeding risk acceptable per surgery (likely 24 hours post-op) can restart oral metoprolol once more awake and taking po while on precedex may have to decrease dose of beta radha due to its enhancement of AV floyd blocking given now confirmed alcoholism and severe left atrial enlargement patient is not currently a candidate for cardioversion, will cont a rate control strategy for the foreseeable future 2. alcohol withdrawal per critical care protocol
[2016-10-12] MEDS ORDERED: PANTOprazole INJ 40 MG in SYRINGE 0 ML IV SCH (11:00)
[2016-10-12] MEDS: THIAMINE HCL INJ 500 MG in SODIUM CHLORIDE 0.9% 100ML IV SCH ×3 (11:21→20:35)
[2016-10-12] MEDS: FERROUS GLUCONATE 324 MG TAB PO SCH ×2 (11:30→16:07)
[2016-10-12] MEDS: ENOXAPARIN 40 MG/0.4 ML SYR SQ SCH (13:59)
[2016-10-12] MEDS ORDERED: WARFARIN SOD 2.5 MG TAB PO SCH (16:00)
--- NOTE | 2016-10-12 16:05 | Progress Note ---
Internal Med Progress Note Date of Service: October 12, 2016. Provider Documentation: SUBJECTIVE: s/p right humerus repair denies pain alert and awake seeing things as per nursing staff afebrile denies sob had breakfast OBJECTIVE: Vital Signs-as noted below Exam: General-alert and awake ENT-normal hearing Neck-no neck masses Lungs-cta b/l no wheezing or crackles Heart-s1 and s2 heard tachycardia no murmurs Abdomen-soft bowel sounds present non tender no distension Extremities- s/p right humerus repair dressing intact Neuro-alert and awake moves extremities Lab data as noted below. ASSESSMENT & PLAN: 61 year old female presents to the ED complaining of right shoulder pain following presyncope and fall prior to arrival MULTIPLE FALLS with hx of presyncope, questionable syncope : mostly from alcoholism hx of a fib echo unremarkable pt/ot when stable ELEVATED TROPONIN Denies any chest pain, SOB. Troponin 0.668, 0.545- trending down. negative nuclear stress test August 2016, LVEF 74% Most Likely demand ischemia echo unremarkable cardiology on board and appreciate inputs stable AFIB WITH RVR , -INR subtherapeutic 1.3 today on Metoprolol BID Held coumadin for surgery will restart soon RIGHT HUMERUS FRACTURE S/P FALL Immobilization in sling pain control with Percocet, Dilaudid prn s/p surgery management as per ortho Alcohol withdrawal on Precedex drip had banana bag on iv thiamine, folic acid and MVI PULMONARY EDEMA : CXR read as pulmonary edema, clinical lungs clear appears euvolemic, BNP slightly elevated Will Continue with MWF Lasix dosing (which she never started outpatient) stable will monitor HTN on BB and losartan stable will monitor HYPONATREMIA somewhat chronic in nature per outpatient record review drinks 2-3 beers daily Na+138 today Will f/u labs. HYPOMAGNESEMIA - 1.6 . Will replace VITAMIN D DEFICIENCY Vit D level 7. [place] 59641 units q weekly x 6 weeks H/O BREAST CA s/p partial mastectomy, chemo, radiation h/o radiation pneumonitis TOBACCO ABUSE Cessation counseling Nicotine patch DEPRESSION on Celexa, Ativan prn MEDICAL NON COMPLIANCE Per cardiology as she is known to her practice DVT PROPHYLAXIS: Coumadin;; Subtherapeutic INR. Hold while pending decision re: surgery for humerus fracture scds DISPOSITION Monitor in ICU Vital Signs: Date Time Temp Pulse Resp B/P Pulse Ox O2 Delivery O2 Flow Rate FiO2 10/12/16 14:00 36.9 80 31 116/76 96 10/12/16 12:48 96 Nasal Cannula 2.0 10/12/16 12:00 79 29 118/67 93 10/12/16 11:02 83 152/87 10/12/16 10:00 76 21 157/82 96 10/12/16 08:00 Nasal Cannula 10/12/16 08:00 96 Nasal Cannula 2.0 10/12/16 08:00 37.8 81 31 184/79 94 10/12/16 07:00 36.5 82 25 139/86 94 10/12/16 06:26 83 27 167/97 96 10/12/16 06:00 149/80 10/12/16 05:00 80 21 97 10/12/16 05:00 151/81 10/12/16 04:02 81 23 146/99 94 10/12/16 04:00 36.8 10/12/16 04:00 96 Nasal Cannula 4.0 10/12/16 04:00 146/80 10/12/16 03:39 85 146/82 10/12/16 03:00 151/82 10/12/16 02:44 149/81 10/12/16 02:02 87 24 142/101 96 10/12/16 02:00 149/80 10/12/16 01:01 82 23 151/137 96 10/12/16 01:00 149/80 10/12/16 00:02 84 22 165/109 95 10/12/16 00:00 152/83 10/11/16 23:59 36.8 10/11/16 23:59 96 Mask 8.0 10/11/16 23:01 87 19 135/107 95 10/11/16 23:00 147/80 10/11/16 22:44 87 147/89 10/11/16 22:00 Mask 10/11/16 21:40 36. 86 21 141/77 95 Mask 9 10/11/16 21:30 36.6 77 24 138/111 95 Mask 9 10/11/16 21:20 36.6 94 24 107/82 95 Mask 9 10/11/16 21:10 36.4 21 138/66 94 Mask 9 Lab Results: Results Past 24 Hours Test 10/12/16 05:30 10/12/16 06:21 10/12/16 06:25 10/12/16 07:30 Range/Units White Blood Count 9.49 4.8-10.8 K/uL Red Blood Count 2.64 4.2-5.4 M/uL Hemoglobin 9.1 12.0-16.0 g/dL Hematocrit 25.7 37-47 % Mean Corpuscular Volume 97.3 80-100 fL Mean Corpuscular Hemoglobin 34.5 25-34 pg Mean Corpuscular Hemoglobin Concent 35.4 32-36 g/dl RDW Standard Deviation 47.2 36.4-46.3 fL RDW Coefficient of Variation 13.5 11.5-14.5 % Platelet Count 178 130-400 K/uL Mean Platelet Volume 9.9 7.4-10.4 fL Prothrombin Time 13.4 9.0-12.0 SECONDS Prothromb Time International Ratio 1.2 0.9-1.1 Sodium Level 138 136-145 mmol/L Potassium Level 4.1 3.5-5.1 mmol/L Chloride Level 105 98-107 mmol/L Carbon Dioxide Level 26 21-32 mmol/L Anion Gap 7.0 3-11 mmol/L Blood Urea Nitrogen 7 7-18 mg/dl Creatinine 0.28 0.60-1.20 mg/dl Est Creatinine Clear Calc Drug Dose 192.0 ml/min Estimated GFR () 144.5 Estimated GFR (Non- 124.7 BUN/Creatinine Ratio 24.7 10-20 Random Glucose 164 70-99 mg/dl Lactic Acid Level 1.2 0.4-2.0 mmol/L Calcium Level 8.2 8.5-10.1 mg/dl Magnesium Level 1.6 1.8-2.4 mg/dl Total Bilirubin 0.9 0.2-1 mg/dl Direct Bilirubin 0.3 0-0.2 mg/dl Aspartate Amino Transf (AST/SGOT) 24 15-37 U/L Alanine Aminotransferase (ALT/SGPT) 20 12-78 U/L Alkaline Phosphatase 65 45-117 U/L Total Protein 5.2 6.4-8.2 gm/dl Albumin 2.2 3.4-5.0 gm/dl Lipase 172 73-393 U/L Bedside Glucose 187 70-90 mg/dl Chemistry Specimen Hemolysis Test 10/12/16 11:43 Range/Units Bedside Glucose 194 70-90 mg/dl Microbiology Results 10/11/16 MRSA DNA Surveillance Screen - Final, Complete Specimen Negative for MRSA by DNA Probe
[2016-10-12] MEDS: MoRPHine SULFATE 2 MG/ML CARP IV PRN ×2 (16:07→20:02)
[2016-10-12] MEDS: CHLORDIAZEPOXIDE 25 MG CAP PO SCH ×2 (18:13→23:25)
[2016-10-12] MEDS: METOPROLOL TARTRATE 100 MG TAB PO SCH (20:35)
[2016-10-13] VITALS (15 sets, daily range): BP systolic 120–176; BP diastolic 63–108; PULSE 83–118; TEMP 36.5–37; O2SAT 91–95
[2016-10-13] MEDS: LORAZEPAM 2 MG/ML 1 ML VIAL IV PRN (00:24)
[2016-10-13] MEDS: MoRPHine SULFATE 2 MG/ML CARP IV PRN (01:39)
[2016-10-13] MEDS: CHLORDIAZEPOXIDE 25 MG CAP PO SCH ×4 (05:30→23:55)
[2016-10-13 05:45] LABS: HEMATOCRIT 27.5 % (37-47); MEAN CELL VOLUME 97.5 fL (80-100); MEAN CORPUSCULAR HGB CONC 34.9 g/dl (32-36); MEAN PLATELET VOLUME 9.5 fL (7.4-10.4); PLATELET COUNT 200 K/uL (130-400); RED BLOOD COUNT 2.82 M/uL (4.2-5.4); WHITE BLOOD COUNT 8.75 K/uL (4.8-10.8)
[2016-10-13 05:55] LABS: INR 1.2 (0.9-1.1); PROTHROMBIN TIME (PATIENT) 12.4 SECONDS (9.0-12.0)
[2016-10-13 06:18] LABS: BUN/CREATININE RATIO 21.5 (10-20); CALCIUM 7.7 mg/dl (8.5-10.1); CREATININE 0.3 mg/dl (0.60-1.20); MAGNESIUM 2.1 mg/dl (1.8-2.4); POTASSIUM 3.3 mmol/L (3.5-5.1)
[2016-10-13 06:20] LABS: PHOSPHORUS 2.7 mg/dl (2.5-4.9)
--- NOTE | 2016-10-13 07:12 | Orthopedic Progress Note ---
Orthopedic Progress Note Date of Service October 13, 2016. Subjective Post OP Day: 2 Reports: pain controlled w PO medications, Denies: SOB, calf pain, chest pain, complaints, light headedness, nausea / vomiting Additional Notes: Patient states she feels "sleepy". She was dozing in and out but was easily awoken to participate in exam. She states she has some numbness at the level of her wrist. Objective calves soft nontender, N/V intact, capillary refill less than 2 sec., dressing C /D/I, A&O x3 Dressing was clean dry and intact, sling was better positioned with ice pack on her shoulder. Fingers were mobile with good squeeze when testing strength at her hand. No pain with elbow flexion or extension. Date Time Temp Pulse Resp B/P Pulse Ox O2 Delivery O2 Flow Rate FiO2 10/13/16 06:01 83 30 176/93 92 10/13/16 06:00 130/67 10/13/16 04:01 85 22 173/95 95 10/13/16 04:00 95 Nasal Cannula 2.0 10/13/16 04:00 36.6 131/68 10/13/16 03:00 120/63 10/13/16 02:02 92 23 95 10/13/16 02:00 121/66 10/13/16 01:00 123/72 10/13/16 00:42 86 33 158/104 95 10/13/16 00:01 124/68 10/12/16 23:59 95 Nasal Cannula 2.0 10/12/16 23:00 122/64 10/12/16 22:02 92 29 139/85 94 10/12/16 22:00 117/62 10/12/16 21:00 116/62 10/12/16 21:00 110 21 95 10/12/16 20:01 99 32 154/92 96 10/12/16 20:00 109 32 97 10/12/16 20:00 95 Nasal Cannula 2.0 10/12/16 20:00 112/58 10/12/16 20:00 36.7 10/12/16 19:00 102/59 10/12/16 18:11 112 22 109/65 95 107/62 10/12/16 16:00 37.1 108 24 115/79 95 Nasal Cannula 2.0 119/68 10/12/16 16:00 95 Nasal Cannula 2.0 10/12/16 14:00 36.9 80 31 116/76 96 10/12/16 12:48 96 Nasal Cannula 2.0 10/12/16 12:00 79 29 118/67 93 10/12/16 11:02 83 152/87 10/12/16 10:00 76 21 157/82 96 10/12/16 08:00 Nasal Cannula 10/12/16 08:00 96 Nasal Cannula 2.0 10/12/16 08:00 37.8 81 31 184/79 94 Laboratory Results 24 Hours: Test 10/13/16 05:21 Hematocrit 27.5 % Hemoglobin 9.6 g/dL Prothromb Time International Ratio 1.2 Prothrombin Time 12.4 SECONDS Assessment & Plan Assessment: POD 2 s/p ORIF Right Proximal Humerus Afib Benign neoplasm of colon 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 May loosen for elbow/wrist discomfort. DVT prophylaxis of Lovenox and Warfarin As per product safety associate note, could be transferred out of ICU if she has decreased hallucinations. Inhouse Planning Pain Management: Morphine, PO Tylenol Discharge Planning Discharge Planning: uncertain
[2016-10-13] MEDS: POTASSIUM CHLORIDE 20 MEQ TABCR PO SCH ×3 (07:43→15:03)
[2016-10-13] MEDS: ASPIRIN 81 MG ECTAB PO SCH (07:44)
[2016-10-13] MEDS: FERROUS GLUCONATE 324 MG TAB PO SCH ×3 (07:44→17:36)
[2016-10-13] MEDS: CITALOPRAM 20 MG TAB PO SCH (07:45)
[2016-10-13] MEDS: MAGNESIUM OXIDE 400 MG TAB PO SCH (07:46)
[2016-10-13] MEDS: METOPROLOL TARTRATE 100 MG TAB PO SCH (07:46)
[2016-10-13] MEDS: PANTOprazole SOD 40 MG TAB PO SCH (07:46)
[2016-10-13] MEDS: WARFARIN SOD 5 MG TAB PO SCH (07:46)
[2016-10-13] MEDS: MULTIVITAMIN TAB PO SCH (07:46)
[2016-10-13] MEDS: ENOXAPARIN 40 MG/0.4 ML SYR SQ SCH ×2 (07:47→22:11)
[2016-10-13] MEDS: NICOTINE 7 MG/24 HR TDSY TD SCH (07:47)
[2016-10-13] MEDS: LOSARTAN POTASSIUM 50 MG TAB PO SCH (07:47)
[2016-10-13] MEDS ORDERED: POTASSIUM CHLORIDE 10 MEQ TABCR PO ONE (08:30)
[2016-10-13] MEDS ORDERED: ENOXAPARIN 1 MG/KG SQ SCH (08:30)
[2016-10-13] MEDS ORDERED: ENOXAPARIN 40 MG/0.4 ML SYR SQ SCH (08:36)
[2016-10-13] MEDS ORDERED: GABAPENTIN 600MG X1 DOSE PO SCH ×2 (09:00→12:00)
--- NOTE | 2016-10-13 09:00 | Cardiology Follow-Up ---
Subjective Subjective Date of Service: October 13, 2016. Pt evaluation today including: conversation w/ patient, physical exam, chart review, lab review, review of studies, review of inpatient medication list Additional Details: Pt seen and examined, states that her arm is sore and that she is tired, otherwise, denies cp, sob, palpitations, lightheadedness or dizziness. Tele reviewed: atrial fibrillation with some episodes of rvr overnight, resolved. Problem List Medical Problems: (1) Abnormal EKG Status: Acute (2) Alcohol use Status: Acute (3) Atrial fibrillation Status: Acute (4) Chest pain on respiration Status: Acute (5) Closed fracture of right proximal humerus Status: Acute (6) Elevated troponin Status: Acute (7) Head trauma Status: Acute (8) Hypomagnesemia Status: Acute (9) Hyponatremia Status: Acute (10) Mitral valve regurgitation Status: Acute (11) Supratherapeutic INR Status: Acute (12) Syncope Status: Acute (13) Tachycardia Status: Acute Review of Systems Respiratory: + see HPI, No cough, No dyspnea at rest, No dyspnea on exertion, No hemoptysis, No problem reported, No shortness of breath, No sputum, No wheezing Cardiac: + see HPI, No PND, No chest pain, No claudication, No edema, No orthopnea, No palpitations, No problem reported Objective Vital Signs Last Vital Signs Documentation Date Time Temp Pulse Resp B/P Pulse Ox O2 Delivery O2 Flow Rate FiO2 10/13/16 08:00 36.5 108 32 139/81 92 Nasal Cannula 2.0 Physical Exam: General Appearance: WD/WN, no apparent distress, + pertinent finding (lethargic ) Eyes: bilateral eyes EOMI, bilateral eyes PERRL, bilateral eyes normal inspection ENT: normal ENT inspection, hearing grossly normal, pharynx normal Neck: supple, no adenopathy, thyroid normal, no JVD, no carotid bruits, trachea midline Respiratory/Chest: lungs clear, no respiratory distress, no accessory muscle use Cardiovascular: no edema, no JVD, no murmur, + gallop/S4, + irregularly irregular Abdomen: normal bowel sounds, non tender, soft, no organomegaly, no pulsatile mass Extremities: normal inspection, no pedal edema, no calf tenderness Neurologic/Psychiatric: urology teacher II-XII nml as tested, no motor/sensory deficits, alert, normal mood/affect, oriented x 3 Skin: normal color, warm/dry, no rash Lymphatic: no adenopathy Assessment and Plan 1. atrial fibrillation now taking po again resume metoprolol tartrate 100mg bid, first dose given will change to metoprolol succinate on 10/14 for ease of use coumadin restart lovenox therapeutic bid dosing also ordered goal INR of 2-3 given now confirmed alcoholism and severe left atrial enlargement patient is not currently a candidate for cardioversion, will cont a rate control strategy for the foreseeable future 2. alcohol withdrawal stable patient counseled on need for abstinence will ask psych to evaluate ok to transfer to tele from cardiac standpoint
[2016-10-13] MEDS: THIAMINE HCL INJ 500 MG in SODIUM CHLORIDE 0.9% 100ML IV SCH ×3 (09:06→20:46)
[2016-10-13] MEDS ORDERED: NURSING VERBAL MED ORDER ONE (09:15)
[2016-10-13] MEDS: FoLIC ACID INJ 1 MG in SYRINGE 9.8 ML IV SCH (09:18)
[2016-10-13] MEDS ORDERED: POLYETHYLENE (MIRALAX) 17 GM PACK PO PRN (09:30)
--- NOTE | 2016-10-13 09:49 | Critical Care Progress Note ---
Critical Care Progress Note Date of Service October 13, 2016. ICU Day ICU Day Number: [address] Moncada Subjective No complaints at this time Precedex discontinued Knows, name, place and time No events overnight, per nursing Objective Constitutional: Vital signs as above were reviewed. General Appearance: Comfortable, sleeping but can be awakened, no apparent pain or distress Eyes: Pupils equal, round, and reactive to light. Extraocular muscles are intact. No proptosis. No photophobia. ENT: Mucous membranes are moist. Oropharynx is clear. No sinus tenderness. TMs are clear bilaterally. Cardiovascular: Heart with a regular rate and rhythm. Pulses are palpable and symmetric in all 4 extremities. No pedal edema appreciated. Respiratory: Lungs clear to auscultation bilaterally. No wheezes, rales, or rhonchi appreciated. No accessory muscle use. No retractions. No increased work of breathing. GI: Abdomen soft, nontender, nondistended. Normal active bowel sounds. No abdominal hernias appreciated. No rebound. No guarding. : No CVA tenderness appreciated. Musculoskeletal: No midline cervical or vertebral tenderness. No gross deformities. No bony tenderness. No calf swelling or tenderness Right shoulder sling, post-operative. Integumentary: Warm, dry, no rashes appreciated. Neurological: Patient awake, alert, and oriented x 3. Answers questions appropriately Knows that a rock does not float on water No evidence of agitation or tremors Lymph: No cervical lymphadenopathy appreciated. Current SOFA Score SOFA Score Response (Comments) Value Platelets (x10) > 150 0 Bilirubin (mg/dL) < 1.2 0 [place] Coma Score 15 0 Level of Hypotension No Hypotension 0 Creatinine (mg/dL) < 1.2 0 Total 0 Assessment & Plan (1) ALCOHOL DEPENDENCE WITH WITHDRAWAL, UNSPECIFIED (2) Afib (3) Depression with anxiety (4) Tobacco use disorder (5) HTN (hypertension) (6) Hypomagnesemia NEUROLOGICAL History of Alcohol Abuse with Withdrawal - GCS 15; RASS 0 ; CAM-ICU negative - No evidence of agitation Has required a total of 2 mg IV Ativan per AWSS - Dexmedetomidine infusion has been discontinued - Continue Librium Taper Protocol Pain Control: Morphine 1 mg q4 hr PRN Tylenol CARDIAC - BP: MAP 80s, meeting goal > 65 - HR 90-110 Likely 2/2 mild withdrawals, pain - No vasopressors requirements; no IV fluids running currently Chronic Atrial Fibrillation with RVR - Resumed metoprolol 100 BID - Advance Lovenox regimen to 1 mg/kg BID (therapeutic range) - Start Coumadin 5 mg daily; follow INR Hypertension - Continue Losartan 50 mg daily RESPIRATORY - Stable, SpO2 95% on room air - No active issues at this time; assess daily GASTROINTESTINAL - Diet: AHA heart healthy diet - GI Prophylaxis: Protonix 40 mg daily PO - Bowel regimen: Start Miralax PRN for constipation RENAL//ENDOCRINE - Fluid Balance Globally - 430 ml - Cr: 0.3 - Electrolytes: Mild hypokalemia: repleted 40 mEq KCl PO this morning - IV Fluids: None - BS-180; Continue AC/HS POC Glucose checks HEMATOLOGY/INFECTIOUS DISEASE - Afebrile; No leukocytosis; no evidence of infection - Hb/Hct Stable at 9.6/27.5 Atrial Fibrillation - Restart Coumadin - Start therapeutic Lovenox 1 mg/kg SQ BID DVT Prophylaxis: As above LINES/IV ACCESS - Discontinue arterial line - Left 20 G peripheral IV CODE STATUS - Full Code DISPOSITION - OT/PT: ordered - Stable for transfer; has chronic Afib therefore Med/Surg is appropriate for this patient Resident Physician Supervision Note: Dr. Laura was resident physician during care of patient. I separately evaluated patient and did history and exam. I discussed the case with the resident and generally agree with the findings and plan. Improved neurologically, stable for transfer Documented By: Tanner Moncada DO Consults & Procedures Consultants: Orthopedics (Primary Team) Procedures: s/p Right ORIF Proximal Humerus 10/11/2016 Data Medications: Current Inpatient Medications Medications (Trade) Dose Ordered Sig/Ton Route Start Time Stop Time Status Last Admin Dose Admin Acetaminophen (Tylenol Tab) 650 mg Q4H PRN PO 10/09/16 13:00 11/08/16 12:59 Ondansetron HCl (Zofran Inj) 4 mg Q6H PRN IV 10/09/16 13:00 11/08/16 12:59 Nitroglycerin (Nitrostat Tab) 0.4 mg UD PRN SL 10/09/16 13:00 11/08/16 12:59 Citalopram Hydrobromide (celeXA TAB) 20 mg QAM PO 10/10/16 09:00 11/09/16 08:59 Future hold 10/13/16 07:45 20 MG Losartan Potassium (coZAAR TAB) 50 mg DAILY PO 10/10/16 09:00 11/09/16 08:59 Future hold 10/13/16 07:47 50 MG Magnesium Oxide (Mag-Ox Tab) 400 mg QAM PO 10/10/16 09:00 11/09/16 08:59 Future hold 10/13/16 07:46 400 MG Albuterol (Ventolin Hfa Inhaler) 2 puffs Q4H PRN INH 10/09/16 14:45 11/08/16 14:44 Nicotine (Nicoderm Cq 7 Mg Patch) 1 patch QAM TD 10/10/16 09:00 11/09/16 08:59 10/13/16 07:47 1 PATCH Miscellaneous (Remove Nicoderm Patch) 1 ea HS N/A 10/09/16 21:00 11/08/16 20:59 10/12/16 20:38 1 EA Furosemide (Lasix Tab) 20 mg MoWeFr@0900 PO 10/10/16 09:00 11/09/16 08:59 Future Hold 10/10/16 07:54 20 MG Aspirin (Ecotrin Tab) 81 mg QAM PO 10/10/16 09:00 11/09/16 08:59 10/13/16 07:44 81 MG Ergocalciferol (Vitamin D Cap) 50,000 interunit Q7D PO 10/10/16 14:00 11/09/16 13:59 Future Hold 10/10/16 16:21 50,000 INTERUNIT Lorazepam PRN Dosing -Active Protocol Q1H PRN IV 10/11/16 21:00 11/10/16 20:59 10/13/16 00:24 1 MG Folic Acid/Syringe (Folvite Inj/ Syringe) 10 ml @ 5 mls/min QAM IV 10/12/16 09:00 11/11/16 08:59 10/13/16 09:18 5 MLS/MIN Morphine Sulfate (MoRPHine SULFATE INJ) 1 mg Q4 PRN IV 10/11/16 21:00 10/25/16 20:59 10/13/16 01:39 1 MG Al Hydroxide/Mg Hydroxide (Maalox Susp) 30 ml Q4H PRN PO 10/11/16 21:00 11/10/16 20:59 Miscellaneous Medication (No Nsaids) 1 ea UD N/A 10/11/16 21:00 11/10/16 20:59 Multivitamins (Multivitamin Tab) 1 tab DAILY PO 10/12/16 09:00 11/11/16 08:59 Future hold 10/13/16 07:46 1 TAB Ferrous Gluconate (Ferrous Gluconate Tab) 324 mg TIDM PO 10/12/16 07:15 11/11/16 07:14 Future hold 10/13/16 07:44 324 MG Warfarin Sodium (Coumadin Tab) 5 mg DAILY@1600 PO 10/13/16 09:00 11/12/16 08:59 10/13/16 07:46 5 MG Chlordiazepoxide (Librium Cap) 50 mg Q8H PO 10/13/16 14:00 10/14/16 06:01 Chlordiazepoxide (Librium Cap) 25 mg Q8H PO 10/14/16 14:00 10/15/16 06:01 Chlordiazepoxide 10 mg 10 mg Q12H PO 10/15/16 18:00 10/16/16 06:01 Thiamine HCl 500 mg/Sodium Chloride 105 ml @ 210 mls/hr TID IV 10/12/16 11:00 10/13/16 21:29 10/13/16 09:06 210 MLS/HR Thiamine HCl/ Sodium Chloride (Vitamin B-1 Inj/ Nss 100ml) 102.5 ml @ 210 mls/hr DAILY IV 10/14/16 09:00 10/18/16 09:30 Pantoprazole Sodium (Protonix Tab) 40 mg QAM PO 10/13/16 09:00 11/12/16 08:59 10/13/16 07:46 40 MG Potassium Chloride (Klor-Con Tab) 20 meq Q4H PO 10/13/16 06:45 10/13/16 14:46 10/13/16 07:43 20 MEQ Potassium Chloride (Klor-Con M10) 40 meq NOW ONCE PO 10/13/16 08:30 10/13/16 08:31 UNV Metoprolol Tartrate (Lopressor Tab) 100 mg BID PO 10/13/16 21:00 10/13/16 23:59 Metoprolol Succinate (Toprol Xl Tab) 100 mg QAM PO 10/14/16 09:00 11/13/16 08:59 Miscellaneous Information (Nursing Verbal Med Order) 1 ea ONE ONCE N/A 10/13/16 09:15 10/13/16 09:16 UNV Enoxaparin Sodium (Lovenox Inj) 40 mg Q12H SQ 10/13/16 20:00 11/12/16 19:59 Polyethylene (Miralax Powder Packet) 17 gm DAILY PRN PO 10/13/16 09:30 11/12/16 09:29 UNV I & O: 24-Hour Column 10/13/16 08:00 Intake Total 2179 ml Output Total 1400 ml Balance 779 ml Vital Signs: Date Time Temp Pulse Resp B/P Pulse Ox O2 Delivery O2 Flow Rate FiO2 10/13/16 08:00 36.5 108 32 139/81 92 Nasal Cannula 2.0 10/13/16 08:00 109 28 140/84 92 10/13/16 08:00 Nasal Cannula 2.0 10/13/16 06:01 83 30 176/93 92 10/13/16 06:00 130/67 10/13/16 04:01 85 22 173/95 95 10/13/16 04:00 95 Nasal Cannula 2.0 10/13/16 04:00 36.6 131/68 10/13/16 03:00 120/63 10/13/16 02:02 92 23 95 10/13/16 02:00 121/66 10/13/16 01:00 123/72 10/13/16 00:42 86 33 158/104 95 10/13/16 00:01 124/68 10/12/16 23:59 95 Nasal Cannula 2.0 10/12/16 23:00 122/64 10/12/16 22:02 92 29 139/85 94 10/12/16 22:00 117/62 10/12/16 21:00 116/62 10/12/16 21:00 110 21 95 10/12/16 20:01 99 32 154/92 96 10/12/16 20:00 109 32 97 10/12/16 20:00 95 Nasal Cannula 2.0 10/12/16 20:00 112/58 10/12/16 20:00 36.7 10/12/16 19:00 102/59 10/12/16 18:11 112 22 109/65 95 107/62 10/12/16 16:00 37.1 108 24 115/79 95 Nasal Cannula 2.0 119/68 10/12/16 16:00 95 Nasal Cannula 2.0 10/12/16 14:00 36.9 80 31 116/76 96 10/12/16 12:48 96 Nasal Cannula 2.0 10/12/16 12:00 79 29 118/67 93 10/12/16 11:02 83 152/87 10/12/16 10:00 76 21 157/82 96 Laboratory Results: Last 24 Hours Test 10/12/16 11:43 10/12/16 16:33 10/12/16 20:41 10/13/16 05:21 Bedside Glucose 194 mg/dl 137 mg/dl 142 mg/dl White Blood Count 8.75 K/uL Red Blood Count 2.82 M/uL Hemoglobin 9.6 g/dL Hematocrit 27.5 % Mean Corpuscular Volume 97.5 fL Mean Corpuscular Hemoglobin 34.0 pg Mean Corpuscular Hemoglobin Concent 34.9 g/dl RDW Standard Deviation 47.5 fL RDW Coefficient of Variation 13.6 % Platelet Count 200 K/uL Mean Platelet Volume 9.5 fL Prothrombin Time 12.4 SECONDS Prothromb Time International Ratio 1.2 Sodium Level 136 mmol/L Potassium Level 3.3 mmol/L Chloride Level 100 mmol/L Carbon Dioxide Level 28 mmol/L Anion Gap 8.0 mmol/L Blood Urea Nitrogen 6 mg/dl Creatinine 0.30 mg/dl Est Creatinine Clear Calc Drug Dose 182.5 ml/min Estimated GFR () 141.2 Estimated GFR (Non- 121.9 BUN/Creatinine Ratio 21.5 Random Glucose 92 mg/dl Calcium Level 7.7 mg/dl Phosphorus Level 2.7 mg/dl Magnesium Level 2.1 mg/dl Total Bilirubin 0.8 mg/dl Direct Bilirubin 0.3 mg/dl Aspartate Amino Transf (AST/SGOT) 20 U/L Alanine Aminotransferase (ALT/SGPT) 19 U/L Alkaline Phosphatase 66 U/L Total Protein 5.3 gm/dl Albumin 2.3 gm/dl Test 10/13/16 06:48 Bedside Glucose 102 mg/dl
--- NOTE | 2016-10-13 18:36 | Progress Note ---
Internal Med Progress Note Date of Service: October 13, 2016. Provider Documentation: SUBJECTIVE: s/p right humerus repair alert and awake seeing things as per nursing staff has pain at surgery site afebrile hemodynamics stable OBJECTIVE: Vital Signs-as noted below Exam: General-alert and awake ENT-normal hearing Neck-no neck masses Lungs-cta b/l no wheezing or crackles Heart-s1 and s2 heard irregular no murmurs Abdomen-soft bowel sounds present non tender no distension Extremities- s/p right humerus repair dressing intact Neuro-alert and awake moves extremities Lab data as noted below. ASSESSMENT & PLAN: 61 year old female presents to the ED complaining of right shoulder pain following presyncope and fall prior to arrival MULTIPLE FALLS with hx of presyncope, questionable syncope : mostly from alcoholism hx of a fib echo unremarkable pt/ot when stable ELEVATED TROPONIN Denies any chest pain, SOB. Troponin 0.668, 0.545- trending down. negative nuclear stress test August 2016, LVEF 74% Most Likely demand ischemia echo unremarkable cardiology on board and appreciate inputs stable AFIB WITH RVR , -INR subtherapeutic 1.3 today on Metoprolol BID Held Coumadin for surgery and was restarted now f/u inr RIGHT HUMERUS FRACTURE S/P FALL Immobilization in sling pain control with Percocet, Dilaudid prn s/p surgery management as per ortho Alcohol withdrawal Was on Precedex drip had banana bag on iv thiamine, folic acid and MVI currently on Librium and Ativan protocol PULMONARY EDEMA : CXR read as pulmonary edema, clinical lungs clear appears euvolemic, BNP slightly elevated Will Continue with MWF Lasix dosing (which she never started outpatient) stable will monitor HTN on BB and losartan stable will monitor HYPONATREMIA somewhat chronic in nature per outpatient record review drinks 2-3 beers daily Na+138 today Will f/u labs. HYPOMAGNESEMIA - 1.6 . Will replace VITAMIN D DEFICIENCY Vit D level 7. [place] [address] units q weekly x 6 weeks H/O BREAST CA s/p partial mastectomy, chemo, radiation h/o radiation pneumonitis TOBACCO ABUSE Cessation counseling Nicotine patch DEPRESSION on Celexa, Ativan prn MEDICAL NON COMPLIANCE Per cardiology as she is known to her practice DVT PROPHYLAXIS: Coumadin;; Subtherapeutic INR. Lovenox while inr subtherapeutic DISPOSITION Transferred to tele Vital Signs: Date Time Temp Pulse Resp B/P Pulse Ox O2 Delivery O2 Flow Rate FiO2 10/13/16 15:22 36.8 94 18 135/83 94 Nasal Cannula 2.0 10/13/16 11:45 36.8 100 20 139/79 91 Nasal Cannula 2.0 10/13/16 11:04 Room Air 10/13/16 10:00 36.5 109 32 92 2.0 10/13/16 08:00 36.5 108 32 139/81 92 Nasal Cannula 2.0 10/13/16 08:00 109 28 140/84 92 10/13/16 08:00 Nasal Cannula 2.0 10/13/16 06:01 83 30 176/93 92 10/13/16 06:00 130/67 10/13/16 04:01 85 22 173/95 95 10/13/16 04:00 95 Nasal Cannula 2.0 10/13/16 04:00 36.6 131/68 10/13/16 03:00 120/63 10/13/16 02:02 92 23 95 10/13/16 02:00 121/66 10/13/16 01:00 123/72 10/13/16 00:42 86 33 158/104 95 10/13/16 00:01 124/68 10/12/16 23:59 95 Nasal Cannula 2.0 10/12/16 23:00 122/64 10/12/16 22:02 92 29 139/85 94 10/12/16 22:00 117/62 10/12/16 21:00 116/62 10/12/16 21:00 110 21 95 10/12/16 20:01 99 32 154/92 96 10/12/16 20:00 109 32 97 10/12/16 20:00 95 Nasal Cannula 2.0 10/12/16 20:00 112/58 10/12/16 20:00 36.7 10/12/16 19:00 102/59 Lab Results: Results Past 24 Hours Test 10/12/16 20:41 10/13/16 05:21 10/13/16 06:48 Range/Units Bedside Glucose 142 102 70-90 mg/dl White Blood Count 8.75 4.8-10.8 K/uL Red Blood Count 2.82 4.2-5.4 M/uL Hemoglobin 9.6 12.0-16.0 g/dL Hematocrit 27.5 37-47 % Mean Corpuscular Volume 97.5 80-100 fL Mean Corpuscular Hemoglobin 34.0 25-34 pg Mean Corpuscular Hemoglobin Concent 34.9 32-36 g/dl RDW Standard Deviation 47.5 36.4-46.3 fL RDW Coefficient of Variation 13.6 11.5-14.5 % Platelet Count 200 130-400 K/uL Mean Platelet Volume 9.5 7.4-10.4 fL Prothrombin Time 12.4 9.0-12.0 SECONDS Prothromb Time International Ratio 1.2 0.9-1.1 Sodium Level 136 136-145 mmol/L Potassium Level 3.3 3.5-5.1 mmol/L Chloride Level 100 98-107 mmol/L Carbon Dioxide Level 28 21-32 mmol/L Anion Gap 8.0 3-11 mmol/L Blood Urea Nitrogen 6 7-18 mg/dl Creatinine 0.30 0.60-1.20 mg/dl Est Creatinine Clear Calc Drug Dose 182.5 ml/min Estimated GFR () 141.2 Estimated GFR (Non- 121.9 BUN/Creatinine Ratio 21.5 10-20 Random Glucose 92 70-99 mg/dl Calcium Level 7.7 8.5-10.1 mg/dl Phosphorus Level 2.7 2.5-4.9 mg/dl Magnesium Level 2.1 1.8-2.4 mg/dl Total Bilirubin 0.8 0.2-1 mg/dl Direct Bilirubin 0.3 0-0.2 mg/dl Aspartate Amino Transf (AST/SGOT) 20 15-37 U/L Alanine Aminotransferase (ALT/SGPT) 19 12-78 U/L Alkaline Phosphatase 66 45-117 U/L Total Protein 5.3 6.4-8.2 gm/dl Albumin 2.3 3.4-5.0 gm/dl
[2016-10-13] MEDS ORDERED: METOPROLOL TARTRATE 100 MG TAB PO SCH (21:00)
[2016-10-14] MEDS: LORAZEPAM 2 MG/ML 1 ML VIAL IV PRN (00:26)
[2016-10-14 04:12] VITALS: BP 160/91; PULSE 94; TEMP 37.1; O2SAT 96
[2016-10-14 07:39] VITALS: BP 153/64; PULSE 103; TEMP 37.1; O2SAT 97
[2016-10-14 07:49] LABS: HEMATOCRIT 29.8 % (37-47); MEAN CELL VOLUME 97.1 fL (80-100); MEAN CORPUSCULAR HEMOGLOBIN 33.2 pg (25-34); MEAN CORPUSCULAR HGB CONC 34.2 g/dl (32-36); MEAN PLATELET VOLUME 9.6 fL (7.4-10.4); PLATELET COUNT 236 K/uL (130-400); RED BLOOD COUNT 3.07 M/uL (4.2-5.4); WHITE BLOOD COUNT 7.69 K/uL (4.8-10.8)
[2016-10-14 08:09] LABS: INR 1.2 (0.9-1.1); PROTHROMBIN TIME (PATIENT) 12.7 SECONDS (9.0-12.0)
[2016-10-14 08:19] LABS: BUN/CREATININE RATIO 18.8 (10-20); CREATININE 0.33 mg/dl (0.60-1.20); MAGNESIUM 1.5 mg/dl (1.8-2.4); POTASSIUM 3.3 mmol/L (3.5-5.1)
[2016-10-14 08:59] LABS: PHOSPHORUS 3.5 mg/dl (2.5-4.9)
[2016-10-14] MEDS ORDERED: CHLORDIAZEPOXIDE 25 MG CAP ONE (08:59)
[2016-10-14] MEDS: CHLORDIAZEPOXIDE 25 MG CAP PO SCH ×3 (09:00→21:59)
[2016-10-14] MEDS: ENOXAPARIN 40 MG/0.4 ML SYR SQ SCH ×2 (09:01→19:48)
[2016-10-14] MEDS: FoLIC ACID INJ 1 MG in SYRINGE 9.8 ML IV SCH (09:01)
[2016-10-14] MEDS: THIAMINE HCL INJ 250 MG in SODIUM CHLORIDE 0.9% 100ML 100 ML IV SCH (09:01)
[2016-10-14] MEDS: FERROUS GLUCONATE 324 MG TAB PO SCH ×3 (09:02→16:34)
[2016-10-14 09:58] LABS: CALCIUM 8.3 mg/dl (8.5-10.1)
[2016-10-14] MEDS: NICOTINE 7 MG/24 HR TDSY TD SCH (10:28)
[2016-10-14] MEDS: MAGNESIUM OXIDE 400 MG TAB PO SCH (10:29)
[2016-10-14] MEDS: ASPIRIN 81 MG ECTAB PO SCH (10:29)
[2016-10-14] MEDS: LOSARTAN POTASSIUM 50 MG TAB PO SCH (10:29)
[2016-10-14] MEDS: PANTOprazole SOD 40 MG TAB PO SCH (10:29)
[2016-10-14] MEDS: CITALOPRAM 20 MG TAB PO SCH (10:29)
[2016-10-14] MEDS: MULTIVITAMIN TAB PO SCH (10:30)
[2016-10-14] MEDS: METOPROLOL SUCC 50MG EXT REL TAB PO SCH (10:30)
--- NOTE | 2016-10-14 11:15 | Cardiology Follow-Up ---
Subjective Subjective Date of Service: October 14, 2016. Pt evaluation today including: conversation w/ patient, physical exam, chart review, lab review, review of studies, review of inpatient medication list Additional Details: Pt seen and examined, lethargic today. Denies cp, sob, palpitations, lightheadedness or dizziness. Tele reviewed: atrial fibrillation, variable rates. Problem List Medical Problems: (1) Abnormal EKG Status: Acute (2) Alcohol use Status: Acute (3) Atrial fibrillation Status: Acute (4) Chest pain on respiration Status: Acute (5) Closed fracture of right proximal humerus Status: Acute (6) Elevated troponin Status: Acute (7) Head trauma Status: Acute (8) Hypomagnesemia Status: Acute (9) Hyponatremia Status: Acute (10) Mitral valve regurgitation Status: Acute (11) Supratherapeutic INR Status: Acute (12) Syncope Status: Acute (13) Tachycardia Status: Acute Review of Systems Respiratory: + see HPI, No cough, No dyspnea at rest, No dyspnea on exertion, No hemoptysis, No problem reported, No shortness of breath, No sputum, No wheezing Cardiac: + see HPI, No PND, No chest pain, No claudication, No edema, No orthopnea, No palpitations, No problem reported Objective Vital Signs Last Vital Signs Documentation Date Time Temp Pulse Resp B/P Pulse Ox O2 Delivery O2 Flow Rate FiO2 10/14/16 07:39 37.1 103 18 153/64 97 10/14/16 04:12 2.0 10/14/16 04:00 Nasal Cannula Physical Exam: General Appearance: WD/WN, no apparent distress, + pertinent finding (lethargic ) Eyes: bilateral eyes EOMI, bilateral eyes PERRL, bilateral eyes normal inspection ENT: normal ENT inspection, hearing grossly normal, pharynx normal Neck: supple, no adenopathy, thyroid normal, no JVD, no carotid bruits, trachea midline Respiratory/Chest: lungs clear, no respiratory distress, no accessory muscle use Cardiovascular: no edema, no JVD, no murmur, + gallop/S4, + irregularly irregular Abdomen: normal bowel sounds, non tender, soft, no organomegaly, no pulsatile mass Extremities: normal inspection, no pedal edema, no calf tenderness Neurologic/Psychiatric: rehabilitation attendant II-XII nml as tested, no motor/sensory deficits, alert, normal mood/affect, oriented x 3 Skin: normal color, warm/dry, no rash Lymphatic: no adenopathy Assessment and Plan 1. atrial fibrillation started metoprolol succinate today, will follow rates, may require a PM dose as well coumadin restart lovenox bridge goal INR of 2-3 given now confirmed alcoholism and severe left atrial enlargement patient is not currently a candidate for cardioversion, will cont a rate control strategy for the foreseeable future 2. alcohol withdrawal stable patient counseled on need for abstinence ok to transfer to tele from cardiac standpoint
[2016-10-14 11:46] VITALS: BP 142/83; PULSE 111; TEMP 36.4; O2SAT 96
[2016-10-14] MEDS ORDERED: POTASSIUM CHLORIDE 10 MEQ TABCR PO ONE (12:15)
[2016-10-14] MEDS: MAGNESIUM SULFATE 1GM / D5W 1 GM in PREMIXED IN D5W 100 ML IV SCH ×2 (12:27→13:30)
--- NOTE | 2016-10-14 12:33 | Orthopedic Progress Note ---
Orthopedic Progress Note Date of Service October 14, 2016. Subjective Post OP Day: 3 Additional Notes: Pt somnolent but answering most questions appropriately. States that her pain is controlled currently. Pt barely opens her eyes at times to answer questions. States that her fingers feel fine and denies numbness in the hand/ fingers. Objective capillary refill less than 2 sec., CMS intact Dressings removed. Wound benign. Ecchymosis noted with swelling of the upper extremity but soft on palpation. No pain in the elbow. Moving fingers well. Sensation intact. Date Time Temp Pulse Resp B/P Pulse Ox O2 Delivery O2 Flow Rate FiO2 10/14/16 11:46 36.4 111 16 142/83 96 2.0 10/14/16 07:39 37.1 103 18 153/64 97 10/14/16 04:12 37.1 94 16 160/91 96 2.0 10/14/16 04:00 Nasal Cannula 2.0 10/13/16 23:59 Nasal Cannula 2.0 10/13/16 23:09 36.7 118 20 154/108 93 Nasal Cannula 2.0 154/92 10/13/16 19:30 Nasal Cannula 2.0 10/13/16 19:20 37.0 102 18 146/80 93 Nasal Cannula 2.0 10/13/16 15:30 Nasal Cannula 2.0 10/13/16 15:22 36.8 94 18 135/83 94 Nasal Cannula 2.0 Laboratory Results 24 Hours: Test 10/14/16 07:06 Hematocrit 29.8 % Hemoglobin 10.2 g/dL Prothromb Time International Ratio 1.2 Prothrombin Time 12.7 SECONDS Assessment & Plan Assessment: POD 3 s/p ORIF Right Proximal Humerus Afib Benign neoplasm of colon 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 PLEASE CALL WITH ANY QUESTIONS. PT/OT - Gait training. NWB RUE Sling on at all times except for bathing/dressing. May loosen for elbow/wrist discomfort. DVT prophylaxis of Lovenox and Warfarin Inhouse Planning Pain Management: Morphine, PO Tylenol Discharge Planning Discharge Planning: uncertain
--- NOTE | 2016-10-14 12:44 | Consultant Recommendations ---
[employer] Recommendations Date of Service October 14, 2016. [employer] [place] [employer] Recommendations Daily dressing changes. If wound remains dry, may leave to the open air Maintain sling on RUE at all times. May loosen for bathing/dressing. May loosen for elbow/wrist discomfort or to readjust. No ROM of the shoulder for [address] Clayton to order shoulder PT after 1st post op visit. Non weightbearing RUE. May use Platform walker if she can maintain NWB status on the RUE F/U with Dr. Clayton in 2 weeks from the day of surgery. Call for appointment. [phone]
[2016-10-14 15:38] VITALS: BP 151/86; PULSE 86; TEMP 36.9; O2SAT 96
[2016-10-14] MEDS: WARFARIN SOD 5 MG TAB PO SCH (16:34)
--- NOTE | 2016-10-14 17:52 | Progress Note ---
Internal Med Progress Note Date of Service: October 14, 2016. Provider Documentation: SUBJECTIVE: s/p right humerus repair says she wants to go home says she will be better off at home denies any chest pain or sob afebrile hemodynamics stable somewhat shaky OBJECTIVE: Vital Signs-as noted below Exam: General-alert and awake and oriented ENT-normal hearing Neck-no neck masses Lungs-cta b/l no wheezing or crackles Heart-s1 and s2 heard irregular no murmurs Abdomen-soft bowel sounds present non tender no distension Extremities- s/p right humerus repair dressing intact Neuro-alert and awake moves extremities Lab data as noted below. ASSESSMENT & PLAN: 61 year old female presents to the ED complaining of right shoulder pain following presyncope and fall prior to arrival MULTIPLE FALLS with hx of presyncope, questionable syncope : mostly from alcoholism hx of a fib echo unremarkable pt/ot when stable plan for rehab ELEVATED TROPONIN Denies any chest pain, SOB. Troponin 0.668, 0.545- trending down. negative nuclear stress test August 2016, LVEF 74% Most Likely demand ischemia echo unremarkable cardiology on board and appreciate inputs stable AFIB WITH RVR , -INR subtherapeutic 1.3 today on Metoprolol BID Held Coumadin for surgery and was restarted now f/u inr 1.2 today RIGHT HUMERUS FRACTURE S/P FALL Immobilization in sling pain control with Percocet, Dilaudid prn s/p surgery management as per ortho ortho signed off and to f/u in 2 weeks Alcohol withdrawal Was on Precedex drip had banana bag on iv thiamine, folic acid and MVI currently on Librium and Ativan protocol continue same PULMONARY EDEMA : CXR read as pulmonary edema, clinical lungs clear appears euvolemic, BNP slightly elevated Will Continue with MWF Lasix dosing (which she never started outpatient) stable will monitor HTN on BB and losartan stable will monitor HYPONATREMIA somewhat chronic in nature per outpatient record review drinks 2-3 beers daily Na+134 today Will f/u labs. HYPOMAGNESEMIA - 1.6 . Will replace VITAMIN D DEFICIENCY Vit D level 7. [place] [address]10 units q weekly x 6 weeks H/O BREAST CA s/p partial mastectomy, chemo, radiation h/o radiation pneumonitis TOBACCO ABUSE Cessation counseling Nicotine patch DEPRESSION on Celexa, Ativan prn MEDICAL NON COMPLIANCE Per cardiology as she is known to her practice DVT PROPHYLAXIS: Coumadin;; Subtherapeutic INR. Lovenox while inr subtherapeutic DISPOSITION monitor in tele pt/ot plan for rehab social service for d/c planning Vital Signs: Date Time Temp Pulse Resp B/P Pulse Ox O2 Delivery O2 Flow Rate FiO2 10/14/16 15:38 36.9 86 20 151/86 96 Nasal Cannula 2.0 10/14/16 12:00 Room Air 10/14/16 11:46 36.4 111 16 142/83 96 2.0 10/14/16 08:00 Room Air 10/14/16 07:39 37.1 103 18 153/64 97 10/14/16 04:12 37.1 94 16 160/91 96 2.0 10/14/16 04:00 Nasal Cannula 2.0 10/13/16 23:59 Nasal Cannula 2.0 10/13/16 23:09 36.7 118 20 154/108 93 Nasal Cannula 2.0 154/92 10/13/16 19:30 Nasal Cannula 2.0 10/13/16 19:20 37.0 102 18 146/80 93 Nasal Cannula 2.0 Lab Results: Results Past 24 Hours Test 10/14/16 07:06 Range/Units White Blood Count 7.69 4.8-10.8 K/uL Red Blood Count 3.07 4.2-5.4 M/uL Hemoglobin 10.2 12.0-16.0 g/dL Hematocrit 29.8 37-47 % Mean Corpuscular Volume 97.1 80-100 fL Mean Corpuscular Hemoglobin 33.2 25-34 pg Mean Corpuscular Hemoglobin Concent 34.2 32-36 g/dl RDW Standard Deviation 47.8 36.4-46.3 fL RDW Coefficient of Variation 13.7 11.5-14.5 % Platelet Count 236 130-400 K/uL Mean Platelet Volume 9.6 7.4-10.4 fL Prothrombin Time 12.7 9.0-12.0 SECONDS Prothromb Time International Ratio 1.2 0.9-1.1 Sodium Level 134 136-145 mmol/L Potassium Level 3.3 3.5-5.1 mmol/L Chloride Level 99 98-107 mmol/L Carbon Dioxide Level 26 21-32 mmol/L Anion Gap 9.0 3-11 mmol/L Blood Urea Nitrogen 6 7-18 mg/dl Creatinine 0.33 0.60-1.20 mg/dl Est Creatinine Clear Calc Drug Dose 163.0 ml/min Estimated GFR () 136.9 Estimated GFR (Non- 118.1 BUN/Creatinine Ratio 18.8 10-20 Random Glucose 99 70-99 mg/dl Calcium Level 8.3 8.5-10.1 mg/dl Phosphorus Level 3.5 2.5-4.9 mg/dl Magnesium Level 1.5 1.8-2.4 mg/dl Total Bilirubin 0.7 0.2-1 mg/dl Direct Bilirubin 0.2 0-0.2 mg/dl Aspartate Amino Transf (AST/SGOT) 20 15-37 U/L Alanine Aminotransferase (ALT/SGPT) 19 12-78 U/L Alkaline Phosphatase 69 45-117 U/L Total Protein 5.9 6.4-8.2 gm/dl Albumin 2.5 3.4-5.0 gm/dl
[2016-10-14 19:27] VITALS: BP 111/81; PULSE 102; TEMP 37; O2SAT 98
[2016-10-14 23:12] VITALS: BP 125/81; PULSE 105; TEMP 37.2; O2SAT 97
--- NOTE | 2016-10-14 23:53 | Progress Note ---
Post ICU Progress Note Date & Time October 14, 2016 at 23:28 Vital Signs Vital Signs Past 12 Hours Date Time Temp Pulse Resp B/P Pulse Ox O2 Delivery O2 Flow Rate FiO2 10/14/16 23:12 37.2 105 18 125/81 97 Nasal Cannula 2.0 10/14/16 20:00 Nasal Cannula 2.0 10/14/16 19:27 37.0 102 20 111/81 98 Nasal Cannula 2.0 10/14/16 16:00 Room Air 10/14/16 15:38 36.9 86 20 151/86 96 Nasal Cannula 2.0 10/14/16 12:00 Room Air 10/14/16 11:46 36.4 111 16 142/83 96 2.0 Notes Mental Status: alert / awake, participated in evaluation, see Notes (patient easily confused; but can be reoriented to person and place.) Nausea / Vomiting: adequately controlled (food at bedside, patient denies nausea, vomiting or upset stomach.) Pain: adequately controlled (patient denies pain) Airway Patency, RR, SpO2: stable & adequate (Pt remains on 2L nasal cannula with adequate saturations; would recommend weaning off. ) BP & HR: stable & adequate (intermittent tachycardia noted in chart and during my exam) Michelle Puente 61-year-old female who was admitted to the ICU on status post ORIF of her right humerus after falling multiple times on the evening of 10/09/2016; hitting her head and right shoulder. She attributes these falls to dizziness caused by her atrial fibrillation. During this admission pt admitted to heavy drinking of multiple alcoholic drinks per day. While in the ICU she was being weaned from Precedex infusion secondary to alcohol withdrawal symptoms. Notably she had been seen hallucinating prior to surgery. While in the ICU; there were no signs of withdrawal; such as seizure, tremors, hallucinations or other neurologic symptoms. While in surgery she did undergo an arterial line to monitor blood pressure; this was removed prior to transfer from the ICU. She did not undergo any other invasive procedure such as endotracheal intubation or central line. She remained in the ICU overnight; the following day her Precedex was weaned and she was transferred to telemetry. She does remain somewhat mentally altered. She can be reoriented to person and place but is also easily confused. Upon my visit today patient was adamant that she was to go downstairs and get her sneakers for transfer to [facility] for a doctor's appointment. On physical exam there are no new findings. Patient is oriented to person and place. She states that she is without pain and denies fever or chills. She has no other acute complaints. It is my understanding at this time that the patient is planned for rehabilitation upon discharge; however, a timeline is not currently set. Patient is hemodynamically dynamically stable. Consider outpatient follow up in 1 to 2 weeks with: * Patient is to follow-up with Dr. Clatyon 2 weeks status post day of surgery per ortho notes. * Follow up with Dr. Julius Min after discharge from rehabilitation. Repeat imaging needed: Per Ortho Follow up cultures: Not applicable Reviewed progress notes, labs, and inpatient medication list Continue current management Additional recommendations: May benefit from further inpatient care for alcohol abuse/addiction. Patient is hemodynamically stable; therefore, critical care will sign off at this time. Thank you for including us in the care of this patient, please feel free to reconsult as needed Consults & Procedures Consultants: Orthopedics (Primary Team) Cardiology: Dr. Riggs Procedures: s/p Right ORIF Proximal Humerus 10/11/2016 Arterial Line inserted 10/11/2016 in OR/ DC'd 10/13/2016
[2016-10-15] VITALS (8 sets, daily range): BP systolic 119–161; BP diastolic 65–101; PULSE 96–124; TEMP 36.3–37.2; O2SAT 93–97
[2016-10-15] MEDS: CHLORDIAZEPOXIDE 25 MG CAP PO SCH (06:00)
[2016-10-15 06:11] LABS: HEMATOCRIT 31.7 % (37-47); MEAN CELL VOLUME 96.4 fL (80-100); MEAN CORPUSCULAR HEMOGLOBIN 31.6 pg (25-34); MEAN CORPUSCULAR HGB CONC 32.8 g/dl (32-36); MEAN PLATELET VOLUME 9.4 fL (7.4-10.4); PLATELET COUNT 259 K/uL (130-400); RED BLOOD COUNT 3.29 M/uL (4.2-5.4); WHITE BLOOD COUNT 10.97 K/uL (4.8-10.8)
[2016-10-15 06:51] LABS: CALCIUM 8.1 mg/dl (8.5-10.1); CREATININE 0.61 mg/dl (0.60-1.20); MAGNESIUM 1.7 mg/dl (1.8-2.4); POTASSIUM 3.7 mmol/L (3.5-5.1)
[2016-10-15 06:53] LABS: PHOSPHORUS 3.4 mg/dl (2.5-4.9)
[2016-10-15] MEDS: THIAMINE HCL INJ 250 MG in SODIUM CHLORIDE 0.9% 100ML 100 ML IV SCH (08:13)
[2016-10-15] MEDS: FoLIC ACID INJ 1 MG in SYRINGE 9.8 ML IV SCH (08:14)
[2016-10-15] MEDS: ENOXAPARIN 40 MG/0.4 ML SYR SQ SCH ×2 (08:15→19:55)
[2016-10-15] MEDS: CITALOPRAM 20 MG TAB PO SCH (08:21)
[2016-10-15] MEDS: LOSARTAN POTASSIUM 50 MG TAB PO SCH (08:22)
[2016-10-15] MEDS: PANTOprazole SOD 40 MG TAB PO SCH (08:22)
[2016-10-15] MEDS: MULTIVITAMIN TAB PO SCH (08:22)
[2016-10-15] MEDS: MAGNESIUM OXIDE 400 MG TAB PO SCH (08:22)
[2016-10-15] MEDS: METOPROLOL SUCC 50MG EXT REL TAB PO SCH (08:22)
[2016-10-15] MEDS: ASPIRIN 81 MG ECTAB PO SCH (08:22)
[2016-10-15] MEDS: NICOTINE 7 MG/24 HR TDSY TD SCH (08:23)
[2016-10-15] MEDS: FERROUS GLUCONATE 324 MG TAB PO SCH ×3 (08:23→17:45)
[2016-10-15] MEDS: ACETAMINOPHEN 325 MG TAB PO PRN ×2 (16:00→20:33)
[2016-10-15] MEDS: WARFARIN SOD 5 MG TAB PO SCH (16:15)
--- NOTE | 2016-10-15 17:09 | Progress Note ---
Internal Med Progress Note Date of Service: October 15, 2016. Provider Documentation: SUBJECTIVE: s/p right humerus repair mostly drowsy but answers questions denies any pain no sob afebrile ate little as per nursing staff OBJECTIVE: Vital Signs-as noted below Exam: General-drowsy ENT-normal hearing Neck-no neck masses Lungs-cta b/l no wheezing or crackles Heart-s1 and s2 heard irregular no murmurs Abdomen-soft bowel sounds present non tender no distension Extremities- s/p right humerus repair dressing intact Neuro- drowsy moves extremities Lab data as noted below. ASSESSMENT & PLAN: 61 year old female presents to the ED complaining of right shoulder pain following presyncope and fall prior to arrival MULTIPLE FALLS with hx of presyncope, questionable syncope : mostly from alcoholism hx of a fib echo unremarkable pt/ot when stable plan for rehab possibly next week ELEVATED TROPONIN Denies any chest pain, SOB. Troponin 0.668, 0.545- trending down. negative nuclear stress test August 2016, LVEF 74% Most Likely demand ischemia echo unremarkable cardiology on board and appreciate inputs stable AFIB WITH RVR , -INR subtherapeutic 1.3 today on Metoprolol BID Held Coumadin for surgery and was restarted now f/u inr in am RIGHT HUMERUS FRACTURE S/P FALL Immobilization in sling pain control with Percocet, Dilaudid prn s/p surgery management as per ortho ortho signed off and to f/u in 2 weeks Alcohol withdrawal Was on Precedex drip had banana bag on iv thiamine, folic acid and MVI currently on Librium and Ativan protocol will be off of Librium from am continue same PULMONARY EDEMA : CXR read as pulmonary edema, clinical lungs clear appears euvolemic, BNP slightly elevated Will Continue with MWF Lasix dosing (which she never started outpatient) stable will monitor Stable conditions: HTN on BB and losartan stable will monitor HYPONATREMIA somewhat chronic in nature per outpatient record review drinks 2-3 beers daily Na+134 today Will f/u labs. HYPOMAGNESEMIA - 1.6 . Will replace VITAMIN D DEFICIENCY Vit D level 7. [place] 82988 units q weekly x 6 weeks H/O BREAST CA s/p partial mastectomy, chemo, radiation h/o radiation pneumonitis TOBACCO ABUSE Cessation counseling Nicotine patch DEPRESSION on Celexa, Ativan prn MEDICAL NON COMPLIANCE Per cardiology as she is known to her practice DVT PROPHYLAXIS: Coumadin;; Subtherapeutic INR. Lovenox while inr subtherapeutic DISPOSITION Transfer to medical floor pt/ot plan for rehab social service for d/c planning Vital Signs: Date Time Temp Pulse Resp B/P Pulse Ox O2 Delivery O2 Flow Rate FiO2 10/15/16 15:27 161/74 10/15/16 14:56 36.3 110 16 160/101 96 Nasal Cannula 2.0 10/15/16 14:15 36.7 117 20 140/85 94 Nasal Cannula 2.0 10/15/16 14:15 94 Nasal Cannula 2.0 10/15/16 12:00 36.6 118 24 145/86 93 Nasal Cannula 2.0 10/15/16 12:00 Nasal Cannula 2.0 10/15/16 08:00 Nasal Cannula 2.0 10/15/16 07:04 36.4 124 19 119/88 97 Nasal Cannula 2.0 10/15/16 04:00 Nasal Cannula 2.0 10/15/16 03:17 37.2 115 19 146/80 94 Nasal Cannula 2.0 10/14/16 23:59 Nasal Cannula 2.0 10/14/16 23:12 37.2 105 18 125/81 97 Nasal Cannula 2.0 10/14/16 20:00 Nasal Cannula 2.0 10/14/16 19:27 37.0 102 20 111/81 98 Nasal Cannula 2.0 Lab Results: Results Past 24 Hours Test 10/15/16 05:50 Range/Units White Blood Count 10.97 4.8-10.8 K/uL Red Blood Count 3.29 4.2-5.4 M/uL Hemoglobin 10.4 12.0-16.0 g/dL Hematocrit 31.7 37-47 % Mean Corpuscular Volume 96.4 80-100 fL Mean Corpuscular Hemoglobin 31.6 25-34 pg Mean Corpuscular Hemoglobin Concent 32.8 32-36 g/dl RDW Standard Deviation 48.2 36.4-46.3 fL RDW Coefficient of Variation 13.7 11.5-14.5 % Platelet Count 259 130-400 K/uL Mean Platelet Volume 9.4 7.4-10.4 fL Sodium Level 134 136-145 mmol/L Potassium Level 3.7 3.5-5.1 mmol/L Chloride Level 101 98-107 mmol/L Carbon Dioxide Level 25 21-32 mmol/L Anion Gap 8.0 3-11 mmol/L Blood Urea Nitrogen 8 7-18 mg/dl Creatinine 0.61 0.60-1.20 mg/dl Est Creatinine Clear Calc Drug Dose 87.6 ml/min Estimated GFR () 111.8 Estimated GFR (Non- 96.5 BUN/Creatinine Ratio 13.0 10-20 Random Glucose 119 70-99 mg/dl Calcium Level 8.1 8.5-10.1 mg/dl Phosphorus Level 3.4 2.5-4.9 mg/dl Magnesium Level 1.7 1.8-2.4 mg/dl Total Bilirubin 0.7 0.2-1 mg/dl Direct Bilirubin 0.2 0-0.2 mg/dl Aspartate Amino Transf (AST/SGOT) 17 15-37 U/L Alanine Aminotransferase (ALT/SGPT) 18 12-78 U/L Alkaline Phosphatase 71 45-117 U/L Total Protein 5.9 6.4-8.2 gm/dl Albumin 2.5 3.4-5.0 gm/dl
[2016-10-15] MEDS: CHLORDIAZEPOXIDE 10 MG CAP PO SCH (18:00)
[2016-10-16] VITALS (24 sets, daily range): BP systolic 107–163; BP diastolic 66–110; PULSE 101–130; TEMP 36.4–37.7; O2SAT 91–99
[2016-10-16] MEDS: CHLORDIAZEPOXIDE 10 MG CAP PO SCH (06:00)
[2016-10-16 06:14] LABS: INR 1.4 (0.9-1.1); PROTHROMBIN TIME (PATIENT) 15.1 SECONDS (9.0-12.0)
--- NOTE | 2016-10-16 07:33 | DIAGNOSTIC IMAGING REPORT ---
CT OF THE HEAD WITHOUT CONTRAST CLINICAL HISTORY: Fall. Evaluate for bleed. COMPARISON STUDY: Head CT October 09, 2016. CT DOSE: 537.48 mGy.cm TECHNIQUE: Helical axial images of the head were obtained without IV contrast. Automated exposure control was utilized for the study. FINDINGS: No acute intracranial hemorrhage, midline shift or mass effect is present. Ventricular system is stable. Basilar cisterns are patent. There are no extra axial collections. White matter hypodensities suggest small vessel disease and are unchanged. There are no findings to suggest acute dural sinus thrombosis or acute territorial infarct. There is no calvarial fracture. There is a small air-fluid level within left maxillary sinus. A 1.9 cm groundglass lesion within the left parietal bone is unchanged. This is nonspecific but favors fibrous dysplasia. IMPRESSION: 1. No acute intracranial findings. 2. No calvarial fracture. Electronically signed by: Donny Smith M.D. 10/16/2016 7:32 AM Dictated Date/Time: 10/16/2016 7:29 AM
[2016-10-16] MEDS: METOPROLOL SUCC 50MG EXT REL TAB PO SCH (07:34)
[2016-10-16] MEDS: ENOXAPARIN 40 MG/0.4 ML SYR SQ SCH ×2 (08:10→20:26)
[2016-10-16] MEDS: ASPIRIN 81 MG ECTAB PO SCH (08:11)
[2016-10-16] MEDS: CITALOPRAM 20 MG TAB PO SCH (08:12)
[2016-10-16] MEDS: PANTOprazole SOD 40 MG TAB PO SCH (08:13)
[2016-10-16] MEDS: MULTIVITAMIN TAB PO SCH (08:13)
[2016-10-16] MEDS: FoLIC ACID INJ 1 MG in SYRINGE 9.8 ML IV SCH (08:13)
[2016-10-16] MEDS: LOSARTAN POTASSIUM 50 MG TAB PO SCH (08:14)
[2016-10-16] MEDS: FERROUS GLUCONATE 324 MG TAB PO SCH ×4 (08:14→15:43)
[2016-10-16] MEDS: MAGNESIUM OXIDE 400 MG TAB PO SCH (08:14)
[2016-10-16] MEDS: NICOTINE 7 MG/24 HR TDSY TD SCH (08:16)
[2016-10-16] MEDS ORDERED: OPTIRAY 320 IV PRN (10:45)
[2016-10-16] MEDS ORDERED: CLONIDINE HCL 0.1 MG TAB PO ONE (10:45)
[2016-10-16] MEDS ORDERED: CLONIDINE HCL 0.1 MG TAB PO PRN (10:45)
[2016-10-16] MEDS ORDERED: MAGNESIUM SULFATE 1GM / D5W 1 GM in PREMIXED IN D5W 100 ML IV ONE (10:45)
[2016-10-16] MEDS: D5NSS + 20MEQ KCL 1,000 ML IV SCH (10:56)
[2016-10-16 11:17] LABS: ARTERIAL BLD GAS O2 SATURATION 93.8 % (90-95); ARTERIAL BLOOD GAS BASE EXCESS 0.1 mEq/L (-9-1.8); ARTERIAL BLOOD GAS HCO3 23 mmol/L (19-24); ARTERIAL BLOOD GAS PO2 73 mm/Hg (80-95)
[2016-10-16 11:20] LABS: ALLEN TEST POS (POS); O2 ADMINISTRATION 2L
[2016-10-16 11:23] LABS: ARTERIAL BLOOD GAS pH 7.49 (7.35-7.45)
--- NOTE | 2016-10-16 12:03 | DIAGNOSTIC IMAGING REPORT ---
CT ANGIOGRAPHY OF THE CHEST, PULMONARY EMBOLUS PROTOCOL CLINICAL HISTORY: Atrophic relation. Proximal right humeral fracture. Evaluate for aspiration or pulmonary embolus. COMPARISON STUDY: Chest radiograph October 12, 2016. TECHNIQUE: Following IV administration of 94 mL of [id number]-[id number], helical axial images of the chest were obtained utilizing the pulmonary embolus protocol. Maximal intensity projections and sagittal and coronal reformats were viewed on an independent 3D workstation. IV contrast was administered without complication. CT DOSE: 372.60 mGy.cm FINDINGS: No pulmonary emboli are identified although the segmental and subsegmental vessels are suboptimally assessed due to respiratory motion. There is no evidence of thoracic aortic dissection. Moderate cardiomegaly is noted with a small pericardial effusion. No enlarged thoracic lymph nodes are present. There are findings consistent with recent interval fixation of the proximal right humeral fracture. Small bilateral pleural effusions are noted. There is bilateral lower lobe airspace opacity with significant left lower lobe volume loss. Occlusion of segmental bronchi within each lower lobe is noted. Lungs are suboptimally assessed due to respiratory motion. Mild groundglass opacities are noted within the lungs. There is mild interlobular septal thickening. Bony thorax and upper abdomen are unremarkable. IMPRESSION: 1. No pulmonary emboli identified although the segmental and subsegmental pulmonary arteries are suboptimally assessed due to respiratory motion. 2. Moderate cardiomegaly with a small pericardial effusion. 3. Small bilateral pleural effusions with bilateral lower lobe airspace opacities and volume loss. The findings favor atelectasis although pneumonia could appear similar. 4. Mild pulmonary edema. Electronically signed by: Donny Smith M.D. 10/16/2016 12:01 PM Dictated Date/Time: 10/16/2016 11:55 AM
[2016-10-16] MEDS ORDERED: LEVALBUTEROL/IPRATROPIUM NEB INH PRN (12:30)
[2016-10-16 13:31] LABS: BASO % 0.2 %; BASO ABS # 0.02 K/uL (0-0.2); COMPLETE YES; EOS % 0.2 %; HEMATOCRIT 31.6 % (37-47); IG% 0.4 %; LYMPH % 6.8 %; LYMPH ABS # 0.86 K/uL (1.2-3.4); MEAN CELL VOLUME 95.8 fL (80-100); MEAN CORPUSCULAR HEMOGLOBIN 32.4 pg (25-34); MEAN CORPUSCULAR HGB CONC 33.9 g/dl (32-36); MEAN PLATELET VOLUME 9.7 fL (7.4-10.4); MONO % 10.2 %; NEUT % 82.2 %; PLATELET COUNT 233 K/uL (130-400); WHITE BLOOD COUNT 12.69 K/uL (4.8-10.8)
[2016-10-16 13:40] LABS: BUN/CREATININE RATIO 17.9 (10-20); CALCIUM 8.3 mg/dl (8.5-10.1); CREATININE 0.41 mg/dl (0.60-1.20); MAGNESIUM 2.1 mg/dl (1.8-2.4); POTASSIUM 4.1 mmol/L (3.5-5.1)
[2016-10-16 13:43] LABS: ALB/GLOB RATIO 0.7 (0.9-2)
[2016-10-16] MEDS ORDERED: LEVALBUTEROL/IPRATROPIUM NEB INH SCH (14:00)
[2016-10-16] MEDS ORDERED: PIPERACILL/TAZOBAC CONSULT ACTIVE PRN (14:00)
[2016-10-16] MEDS ORDERED: IPRATROPIUM BROMIDE NEB SOLN 0.02% 2.5 ML VIAL INH PRN (14:30)
[2016-10-16] MEDS ORDERED: PIPERACILL/TAZOBAC IV 3.375 GM in DEXTROSE 5% 100ML 100 ML IV SCH (14:30)
[2016-10-16] MEDS ORDERED: LEVALBUTEROL 0.63MG/3 ML NEB INH PRN (14:30)
[2016-10-16] MEDS: IPRATROPIUM BROMIDE NEB SOLN 0.02% 2.5 ML VIAL INH SCH ×2 (14:30→18:50)
[2016-10-16] MEDS: LEVALBUTEROL 0.63MG/3 ML NEB INH SCH ×2 (14:30→18:50)
[2016-10-16] MEDS ORDERED: D5NSS + 20MEQ KCL 1,000 ML IV SCH (15:30)
[2016-10-16] MEDS: WARFARIN SOD 5 MG TAB PO SCH (15:44)
[2016-10-16] MEDS ORDERED: FUROSEMIDE INJ 40 MG in SYRINGE 0 ML IV ONE (16:00)
[2016-10-16] MEDS: LEVOFLOXACIN / D5W 750 MG in PREMIXED IN D5W 150 ML IV SCH (16:30)
--- NOTE | 2016-10-16 18:38 | Progress Note ---
Internal Med Progress Note Date of Service: October 16, 2016. Provider Documentation: SUBJECTIVE: s/p right humerus repair more lethargic today had mild temp spike opens eyes on calling not taking po meds tachycardia OBJECTIVE: Vital Signs-as noted below Exam: General-drowsy ENT-normal hearing Neck-no neck masses Lungs-cta b/l no wheezing or crackles Heart-s1 and s2 heard tachycardia irregular no murmurs Abdomen-soft bowel sounds present non tender no distension Extremities- s/p right humerus repair dressing intact Neuro- drowsy moves extremities Lab data as noted below. ASSESSMENT & PLAN: 61 year old female presents to the ED complaining of right shoulder pain following presyncope and fall prior to arrival Lethargy tachycardia Resp distress with tachypnea ct head unremarkable abg mostly hyperventilation lactic acid normal labs ok ekg a fib with rvr CTA chest no PE . mild pul edema and possible infiltrates and atelectasias started on iv Zosyn and Levaquin given a dose of iv lasix nebs bipap and monitor in tele MULTIPLE FALLS with hx of presyncope, questionable syncope : mostly from alcoholism hx of a fib echo unremarkable pt/ot when stable plan for rehab possibly next week when stable ELEVATED TROPONIN Denies any chest pain, SOB. Troponin 0.668, 0.545- trending down. negative nuclear stress test August 2016, LVEF 74% Most Likely demand ischemia echo unremarkable cardiology on board and appreciate inputs stable AFIB WITH RVR , -INR subtherapeutic 1.4 today on Metoprolol not able to take po Coumadin on lovenox iv Lopressor prn RIGHT HUMERUS FRACTURE S/P FALL Immobilization in sling pain control with Percocet, Dilaudid prn s/p surgery management as per ortho ortho signed off and to f/u in 2 weeks Alcohol withdrawal Was on Precedex drip had banana bag on iv thiamine, folic acid and MVI currently on Librium and Ativan protocol off of Librium will monitor PULMONARY EDEMA : CXR read as pulmonary edema, clinical lungs clear appears euvolemic, BNP slightly elevated Will Continue with MWF Lasix dosing (which she never started outpatient) cta chest today mild edema a dose of iv lasix given bipap HTN on BB and losartan clonidine prn iv lopressor prn will monitor HYPONATREMIA somewhat chronic in nature per outpatient record review drinks 2-3 beers daily Na+134 today Will f/u labs. HYPOMAGNESEMIA - 1.6 . Will replace VITAMIN D DEFICIENCY Vit D level 7. [place] [address] units q weekly x 6 weeks H/O BREAST CA s/p partial mastectomy, chemo, radiation h/o radiation pneumonitis TOBACCO ABUSE Cessation counseling Nicotine patch DEPRESSION on Celexa, Ativan prn MEDICAL NON COMPLIANCE Per cardiology as she is known to her practice DVT PROPHYLAXIS: Coumadin;; Subtherapeutic INR. Lovenox while inr subtherapeutic DISPOSITION Transfer to Tele pt/ot plan for rehab when stable social service for d/c planning Vital Signs: Date Time Temp Pulse Resp B/P Pulse Ox O2 Delivery O2 Flow Rate FiO2 10/16/16 16:53 36.9 109 18 119/82 99 BiPAP 10/16/16 16:02 99 BiPAP 40 10/16/16 15:40 106 98 40 10/16/16 15:00 37.7 122 37 139/93 92 Nasal Cannula 4.0 10/16/16 14:51 115 40 111/66 91 Nasal Cannula 2.0 10/16/16 14:31 104 16 93 Nasal Cannula 2.0 10/16/16 13:57 36.4 115 40 114/70 93 Nasal Cannula 2.0 10/16/16 12:59 36.9 112 36 92 2.0 10/16/16 12:47 112 38 140/80 92 Nasal Cannula 2.0 10/16/16 11:59 122 40 142/82 92 Nasal Cannula 2.0 10/16/16 11:45 115 38 151/97 92 Nasal Cannula 2.0 10/16/16 11:20 121 40 149/89 94 Nasal Cannula 2.0 10/16/16 11:05 128 40 163/105 93 Nasal Cannula 2.0 10/16/16 10:53 120 38 150/93 95 Nasal Cannula 2.0 10/16/16 10:40 122 36 139/94 95 Nasal Cannula 2.0 10/16/16 10:32 37.7 10/16/16 10:20 130 40 150/110 95 Nasal Cannula 2.0 10/16/16 08:00 94 Nasal Cannula 2.0 10/16/16 07:35 110 127/97 10/16/16 06:53 36.4 106 16 127/79 93 Nasal Cannula 2.0 10/16/16 00:05 36.6 113 16 139/97 93 Nasal Cannula 2.0 10/15/16 23:02 36.6 96 18 128/65 97 Nasal Cannula 2.0 10/15/16 19:30 97 Nasal Cannula 2.0 Lab Results: Results Past 24 Hours Test 10/16/16 05:45 10/16/16 10:56 10/16/16 12:55 10/16/16 18:06 Range/Units Prothrombin Time 15.1 9.0-12.0 SECONDS Prothromb Time International Ratio 1.4 0.9-1.1 Arterial Blood pH 7.49 7.35-7.45 Arterial Blood Partial Pressure CO2 29 35-46 mmHg Arterial Blood Partial Pressure O2 73 80-95 mm/Hg Arterial Blood HCO3 23 19-24 mmol/L Arterial Blood Oxygen Saturation 93.8 90-95 % Arterial Blood Base Excess 0.1 -9-1.8 mEq/L Arterial Blood Gas Delivery 2L Anjel Test POS POS Troponin I 0.044 0-0.045 ng/ml White Blood Count 12.69 4.8-10.8 K/uL Red Blood Count 3.30 4.2-5.4 M/uL Hemoglobin 10.7 12.0-16.0 g/dL Hematocrit 31.6 37-47 % Mean Corpuscular Volume 95.8 80-100 fL Mean Corpuscular Hemoglobin 32.4 25-34 pg Mean Corpuscular Hemoglobin Concent 33.9 32-36 g/dl Platelet Count 233 130-400 K/uL Mean Platelet Volume 9.7 7.4-10.4 fL Neutrophils (%) (Auto) 82.2 % Lymphocytes (%) (Auto) 6.8 % Monocytes (%) (Auto) 10.2 % Eosinophils (%) (Auto) 0.2 % Basophils (%) (Auto) 0.2 % Neutrophils # (Auto) 10.44 1.4-6.5 K/uL Lymphocytes # (Auto) 0.86 1.2-3.4 K/uL Monocytes # (Auto) 1.30 0.11-0.59 K/uL Eosinophils # (Auto) 0.02 0-0.5 K/uL Basophils # (Auto) 0.02 0-0.2 K/uL RDW Standard Deviation 47.8 36.4-46.3 fL RDW Coefficient of Variation 13.8 11.5-14.5 % Immature Granulocyte % (Auto) 0.4 % Immature Granulocyte # (Auto) 0.05 0.00-0.02 K/uL Sodium Level 130 136-145 mmol/L Potassium Level 4.1 3.5-5.1 mmol/L Chloride Level 97 98-107 mmol/L Carbon Dioxide Level 26 21-32 mmol/L Anion Gap 7.0 3-11 mmol/L Blood Urea Nitrogen 7 7-18 mg/dl Creatinine 0.41 0.60-1.20 mg/dl Est Creatinine Clear Calc Drug Dose 130.3 ml/min Estimated GFR () 127.4 Estimated GFR (Non- 110.0 BUN/Creatinine Ratio 17.9 10-20 Random Glucose 141 70-99 mg/dl Lactic Acid Level 1.2 0.4-2.0 mmol/L Calcium Level 8.3 8.5-10.1 mg/dl Magnesium Level 2.1 1.8-2.4 mg/dl Total Bilirubin 1.1 0.2-1 mg/dl Aspartate Amino Transf (AST/SGOT) 16 15-37 U/L Alanine Aminotransferase (ALT/SGPT) 16 12-78 U/L Alkaline Phosphatase 76 45-117 U/L Total Protein 6.4 6.4-8.2 gm/dl Albumin 2.6 3.4-5.0 gm/dl Globulin 3.8 2.5-4.0 gm/dl Albumin/Globulin Ratio 0.7 0.9-2 Bedside Glucose 159 70-90 mg/dl Microbiology Results 10/16/16 Blood Culture, Received Pending 10/16/16 Blood Culture, Received Pending 10/16/16 Urine Culture, Received Pending
[2016-10-16] MEDS: METOPROLOL TARTRATE 1 MG/ML VIAL IV PRN ×2 (19:20→23:33)
[2016-10-16] MEDS ORDERED: ACETAMINOPHEN IV 650 MG in EMPTY BAG 0 ML IV PRN (19:30)
[2016-10-16] MEDS: MoRPHine SULFATE 2 MG/ML CARP IV PRN (19:31)
[2016-10-16] MEDS: PIPERACILL/TAZOBAC IV 3.375 GM in DEXTROSE 5% 100ML 100 ML IV SCH (20:27)
[2016-10-16] MEDS: LORAZEPAM 2 MG/ML 1 ML VIAL IV PRN (21:57)
[2016-10-17] VITALS (12 sets, daily range): BP systolic 82–127; BP diastolic 58–85; PULSE 65–124; TEMP 36.4–37.2; O2SAT 87–96
[2016-10-17] MEDS: LORAZEPAM 2 MG/ML 1 ML VIAL IV PRN (00:13)
[2016-10-17] MEDS: PIPERACILL/TAZOBAC IV 3.375 GM in DEXTROSE 5% 100ML 100 ML IV SCH ×3 (04:52→19:55)
[2016-10-17 06:46] LABS: BASO % 0.1 %; BASO ABS # 0.02 K/uL (0-0.2); COMPLETE YES; EOS % 0.1 %; HEMATOCRIT 33.3 % (37-47); IG% 0.3 %; LYMPH ABS # 1.09 K/uL (1.2-3.4); MEAN CELL VOLUME 96.5 fL (80-100); MEAN CORPUSCULAR HEMOGLOBIN 31.9 pg (25-34); MEAN PLATELET VOLUME 9.5 fL (7.4-10.4); MONO % 13.3 %; NEUT % 78.2 %; PLATELET COUNT 307 K/uL (130-400); RED BLOOD COUNT 3.45 M/uL (4.2-5.4); WHITE BLOOD COUNT 13.56 K/uL (4.8-10.8)
[2016-10-17 06:53] LABS: INR 1.4 (0.9-1.1); PROTHROMBIN TIME (PATIENT) 15.2 SECONDS (9.0-12.0)
[2016-10-17 07:29] LABS: BUN/CREATININE RATIO 16.2 (10-20); CALCIUM 8.6 mg/dl (8.5-10.1); CREATININE 0.48 mg/dl (0.60-1.20); POTASSIUM 3.6 mmol/L (3.5-5.1)
[2016-10-17] MEDS: D5NSS + 20MEQ KCL 1,000 ML IV SCH (08:00)
[2016-10-17] MEDS: ENOXAPARIN 40 MG/0.4 ML SYR SQ SCH ×2 (08:09→19:56)
[2016-10-17] MEDS: MoRPHine SULFATE 2 MG/ML CARP IV PRN ×3 (08:10→21:17)
[2016-10-17] MEDS: LOSARTAN POTASSIUM 50 MG TAB PO SCH (08:10)
[2016-10-17] MEDS: MAGNESIUM OXIDE 400 MG TAB PO SCH (08:11)
[2016-10-17] MEDS: FERROUS GLUCONATE 324 MG TAB PO SCH ×3 (08:11→16:35)
[2016-10-17] MEDS: PANTOprazole SOD 40 MG TAB PO SCH (08:11)
[2016-10-17] MEDS: MULTIVITAMIN TAB PO SCH (08:11)
[2016-10-17] MEDS: ASPIRIN 81 MG ECTAB PO SCH (08:12)
[2016-10-17] MEDS: METOPROLOL SUCC 50MG EXT REL TAB PO SCH (08:12)
[2016-10-17] MEDS: CITALOPRAM 20 MG TAB PO SCH (08:12)
[2016-10-17] MEDS: NICOTINE 7 MG/24 HR TDSY TD SCH (08:13)
[2016-10-17] MEDS: IPRATROPIUM BROMIDE NEB SOLN 0.02% 2.5 ML VIAL INH SCH ×3 (08:20→20:00)
[2016-10-17] MEDS: LEVALBUTEROL 0.63MG/3 ML NEB INH SCH ×3 (08:20→20:00)
[2016-10-17] MEDS: METOPROLOL TARTRATE 1 MG/ML VIAL IV PRN (11:32)
--- NOTE | 2016-10-17 15:05 | DIAGNOSTIC IMAGING REPORT ---
ABDOMINAL ULTRASOUND, RIGHT UPPER QUADRANT HISTORY: elevated bilirubin.alocholism.gallbladder disease?. COMPARISON: None. FINDINGS: Pancreas: The pancreas demonstrates a normal echotexture. Liver: The liver is echogenic consistent with fatty change. Gallbladder: No gallbladder wall thickening. No gallstones. CBD: 3 mm. Right kidney: No hydronephrosis. Miscellaneous: Small right pleural effusion, unchanged. IMPRESSION: 1. Normal gallbladder. 2. Hepatic steatosis. 3. Small right pleural effusion, unchanged Electronically signed by: Jefferson Vasquez M.D. 10/17/2016 3:04 PM Dictated Date/Time: 10/17/2016 11:34 AM
[2016-10-17] MEDS: NSS + 20MEQ KCL 1000ML 1,000 ML IV SCH (15:47)
[2016-10-17] MEDS: WARFARIN SOD 5 MG TAB PO SCH (16:35)
[2016-10-17] MEDS: LEVOFLOXACIN / D5W 750 MG in PREMIXED IN D5W 150 ML IV SCH (16:36)
--- NOTE | 2016-10-17 20:00 | Progress Note ---
Internal Med Progress Note Date of Service: October 17, 2016. Provider Documentation: SUBJECTIVE: s/p right humerus repair more aleet And awake today eating good as per nursing staff afebrile says feeling tired denies pain no nausea afebrile today OBJECTIVE: Vital Signs-as noted below Exam: General-alert and awake. Not in distress ENT-normal hearing Neck-no neck masses Lungs-cta b/l no wheezing or crackles Heart-s1 and s2 heard tachycardia irregular no murmurs Abdomen-soft bowel sounds present non tender no distension Extremities- s/p right humerus repair dressing intact Neuro- alert and awake moves extremities Lab data as noted below. ASSESSMENT & PLAN: 61 year old female presents to the ED complaining of right shoulder pain following presyncope and fall prior to arrival and found to have right humerus fracture. Hx of alcoholism, a fib,HTN and breast cancer. HAd rapid afib and mild elevation of trponin.Seen by cardiology and cleared for surgery. Post surgery patient went into alcohol withdrawal and was in ICU requiring Precedex drip.Did fine and completed Librium protocol and was moved to moved medical floor. But became lethargic, tachycardia and tachypnea and spiked mild temp and was moved back to [facility]. CTA chest no PE but showed mild pul.edema and possible infiltrates and atelectasis. Placed on bipa but couldn't tolerated it. Received a dose of iv Lasix and empirically started on Levaquin and Zosyn. Mental status is improving now. Eating better. Await pt/ot participation and possible rehab placement. Lethargy 10/16/16 tachycardia Resp distress with tachypnea ct head unremarkable abg mostly hyperventilation lactic acid normal labs ok ekg a fib with rvr CTA chest no PE . mild pul edema and possible infiltrates and atelectasias started on iv Zosyn and Levaquin#2 given a dose of iv lasix nebs had bipap currently more alert and awake and improving Hypotension 10/18/16 could not measure blood pressure on right arm secondary to surgery and left arm secondary to hx of lymph node excision on gentle fluids wll give and 250cc bolus and monitor will also f/u lactic acid levels patient asymptomatic MULTIPLE FALLS with hx of presyncope, questionable syncope : mostly from alcoholism hx of a fib echo unremarkable pt/ot when stable plan for rehab possibly this week when stable ELEVATED TROPONIN Denies any chest pain, SOB. Troponin 0.668, 0.545- trending down. negative nuclear stress test August 2016, LVEF 74% Most Likely demand ischemia echo unremarkable seen by cardiology and appreciate inputs stable AFIB WITH RVR , -INR subtherapeutic 1.4 today on Metoprolol po Coumadin on Lovenox iv Lopressor prn RIGHT HUMERUS FRACTURE S/P FALL Immobilization in sling pain control with Percocet, Dilaudid prn s/p surgery management as per ortho ortho signed off and to f/u in 2 weeks Alcohol withdrawal Was on Precedex drip had banana bag on iv thiamine, folic acid and MVI currently on Librium and Ativan protocol off of Librium seems stable now PULMONARY EDEMA : CXR read as pulmonary edema, clinical lungs clear appears euvolemic, BNP slightly elevated Will Continue with MWF Lasix dosing (which she never started outpatient) cta chest 10/17/16 mild edema a dose of iv lasix given saturating fine now HTN on BB and losartan iv lopressor prn will monitor HYPONATREMIA somewhat chronic in nature per outpatient record review drinks 2-3 beers daily Na+134 today Will f/u labs. HYPOMAGNESEMIA - 1.6 . Will replace VITAMIN D DEFICIENCY Vit D [place] 7. [place] [address] units q weekly x 6 weeks H/O BREAST CA s/p partial mastectomy, chemo, radiation h/o radiation pneumonitis TOBACCO ABUSE Cessation counseling Nicotine patch DEPRESSION on Celexa, Ativan prn MEDICAL NON COMPLIANCE Per cardiology as she is known to practice DVT PROPHYLAXIS: Coumadin;; Subtherapeutic INR. Lovenox while inr subtherapeutic DISPOSITION Monitor in Tele pt/ot when stable plan for rehab when stable social service for d/c planning Vital Signs: Date Time Temp Pulse Resp B/P Pulse Ox O2 Delivery O2 Flow Rate FiO2 10/17/16 20:00 118 18 95 Nasal Cannula 2.0 10/17/16 19:38 36.7 65 20 88/58 95 Nasal Cannula 2.0 10/17/16 16:07 36.4 109 18 82/60 96 Nasal Cannula 2.0 10/17/16 16:02 96 Nasal Cannula 2.0 10/17/16 14:17 108 18 94 Nasal Cannula 2.0 10/17/16 12:00 Nasal Cannula 2.5 10/17/16 12:00 36.7 108 20 111/79 96 Nasal Cannula 2.0 10/17/16 11:32 124 121/81 10/17/16 11:30 124 18 121/81 95 Nasal Cannula 2.5 10/17/16 08:21 105 18 87 Room Air 10/17/16 08:00 95 Nasal Cannula 2.0 10/17/16 08:00 36.5 117 22 119/85 94 Nasal Cannula 2.0 10/17/16 04:00 37.2 110 20 127/83 95 Nasal Cannula 2.0 95 10/17/16 04:00 Nasal Cannula 2.0 10/16/16 23:59 Nasal Cannula 2.0 10/16/16 23:40 37.6 107 20 111/71 94 Nasal Cannula 2.0 118 10/16/16 23:33 132 111/71 Lab Results: Results Past 24 Hours Test 10/17/16 06:16 10/17/16 06:26 10/17/16 11:27 10/17/16 16:21 Range/Units White Blood Count 13.56 4.8-10.8 K/uL Red Blood Count 3.45 4.2-5.4 M/uL Hemoglobin 11.0 12.0-16.0 g/dL Hematocrit 33.3 37-47 % Mean Corpuscular Volume 96.5 80-100 fL Mean Corpuscular Hemoglobin 31.9 25-34 pg Mean Corpuscular Hemoglobin Concent 33.0 32-36 g/dl Platelet Count 307 130-400 K/uL Mean Platelet Volume 9.5 7.4-10.4 fL Neutrophils (%) (Auto) 78.2 % Lymphocytes (%) (Auto) 8.0 % Monocytes (%) (Auto) 13.3 % Eosinophils (%) (Auto) 0.1 % Basophils (%) (Auto) 0.1 % Neutrophils # (Auto) 10.58 1.4-6.5 K/uL Lymphocytes # (Auto) 1.09 1.2-3.4 K/uL Monocytes # (Auto) 1.81 0.11-0.59 K/uL Eosinophils # (Auto) 0.02 0-0.5 K/uL Basophils # (Auto) 0.02 0-0.2 K/uL RDW Standard Deviation 49.0 36.4-46.3 fL RDW Coefficient of Variation 13.9 11.5-14.5 % Immature Granulocyte % (Auto) 0.3 % Immature Granulocyte # (Auto) 0.04 0.00-0.02 K/uL Prothrombin Time 15.2 9.0-12.0 SECONDS Prothromb Time International Ratio 1.4 0.9-1.1 Sodium Level 134 136-145 mmol/L Potassium Level 3.6 3.5-5.1 mmol/L Chloride Level 97 98-107 mmol/L Carbon Dioxide Level 29 21-32 mmol/L Anion Gap 8.0 3-11 mmol/L Blood Urea Nitrogen 8 7-18 mg/dl Creatinine 0.48 0.60-1.20 mg/dl Est Creatinine Clear Calc Drug Dose 113.7 ml/min Estimated GFR () 121.0 Estimated GFR (Non- 104.4 BUN/Creatinine Ratio 16.2 10-20 Random Glucose 120 70-99 mg/dl Calcium Level 8.6 8.5-10.1 mg/dl Magnesium Level 2.0 1.8-2.4 mg/dl Total Bilirubin 1.1 0.2-1 mg/dl Direct Bilirubin 0.2 0-0.2 mg/dl Aspartate Amino Transf (AST/SGOT) 9 15-37 U/L Alanine Aminotransferase (ALT/SGPT) 14 12-78 U/L Alkaline Phosphatase 77 45-117 U/L Total Protein 6.4 6.4-8.2 gm/dl Albumin 2.5 3.4-5.0 gm/dl Bedside Glucose 199 153 156 70-90 mg/dl Test 10/17/16 19:33 Range/Units
[2016-10-18] VITALS (14 sets, daily range): BP systolic 89–113; BP diastolic 57–88; PULSE 84–123; TEMP 36.4–37; O2SAT 92–96
[2016-10-18] MEDS: LORAZEPAM 2 MG/ML 1 ML VIAL IV PRN (01:15)
[2016-10-18] MEDS: NSS + 20MEQ KCL 1000ML 1,000 ML IV SCH ×2 (03:05→17:45)
[2016-10-18] MEDS: PIPERACILL/TAZOBAC IV 3.375 GM in DEXTROSE 5% 100ML 100 ML IV SCH ×3 (04:14→20:18)
[2016-10-18] MEDS: IPRATROPIUM BROMIDE NEB SOLN 0.02% 2.5 ML VIAL INH SCH ×3 (07:41→19:25)
[2016-10-18] MEDS: LEVALBUTEROL 0.63MG/3 ML NEB INH SCH ×3 (07:42→19:25)
[2016-10-18] MEDS: MULTIVITAMIN TAB PO SCH (07:43)
[2016-10-18] MEDS: ENOXAPARIN 40 MG/0.4 ML SYR SQ SCH ×2 (07:43→20:18)
[2016-10-18] MEDS: FERROUS GLUCONATE 324 MG TAB PO SCH ×3 (07:43→17:43)
[2016-10-18] MEDS: LOSARTAN POTASSIUM 50 MG TAB PO SCH (07:45)
[2016-10-18] MEDS: NICOTINE 7 MG/24 HR TDSY TD SCH (07:45)
[2016-10-18] MEDS: CITALOPRAM 20 MG TAB PO SCH (07:46)
[2016-10-18] MEDS: METOPROLOL SUCC 50MG EXT REL TAB PO SCH (07:46)
[2016-10-18] MEDS: ASPIRIN 81 MG ECTAB PO SCH (07:46)
[2016-10-18] MEDS: PANTOprazole SOD 40 MG TAB PO SCH (07:47)
[2016-10-18] MEDS: MAGNESIUM OXIDE 400 MG TAB PO SCH (07:47)
[2016-10-18 08:44] LABS: INR 1.3 (0.9-1.1); PROTHROMBIN TIME (PATIENT) 14.1 SECONDS (9.0-12.0)
[2016-10-18 08:45] LABS: BASO % 0.2 %; BASO ABS # 0.02 K/uL (0-0.2); COMPLETE YES; EOS % 0.7 %; HEMATOCRIT 32.3 % (37-47); IG% 0.6 %; LYMPH % 10.7 %; LYMPH ABS # 1.18 K/uL (1.2-3.4); MEAN CELL VOLUME 95.8 fL (80-100); MEAN CORPUSCULAR HEMOGLOBIN 32.6 pg (25-34); MEAN CORPUSCULAR HGB CONC 34.1 g/dl (32-36); MEAN PLATELET VOLUME 9.7 fL (7.4-10.4); MONO % 11.6 %; NEUT % 76.2 %; PLATELET COUNT 290 K/uL (130-400); RED BLOOD COUNT 3.37 M/uL (4.2-5.4); WHITE BLOOD COUNT 10.99 K/uL (4.8-10.8)
[2016-10-18 08:59] LABS: BUN/CREATININE RATIO 21.3 (10-20); CALCIUM 8.4 mg/dl (8.5-10.1); CREATININE 0.48 mg/dl (0.60-1.20); MAGNESIUM 1.8 mg/dl (1.8-2.4); POTASSIUM 3.3 mmol/L (3.5-5.1)
[2016-10-18] MEDS ORDERED: POTASSIUM CHLORIDE 20 MEQ TABCR PO ONE (10:00)
[2016-10-18] MEDS ORDERED: THIAMINE HCL INJ 100 MG in SYRINGE 9 ML IV ONE (10:00)
[2016-10-18] MEDS: ACETAMINOPHEN 325 MG TAB PO PRN (16:13)
[2016-10-18] MEDS: WARFARIN SOD 5 MG TAB PO SCH (16:13)
[2016-10-18] MEDS: LEVOFLOXACIN / D5W 750 MG in PREMIXED IN D5W 150 ML IV SCH (17:45)
--- NOTE | 2016-10-18 21:29 | Progress Note ---
Medicine Progress Note Date & Time of Visit: October 18, 2016 at ~ 18:30 . Subjective Slept most of the afternoon. Ate some dinner; napping again after dinner. reports ongoing confusion. No fever. Occasional cough, no shortness of breath. No chest pain. Appetite fair. No nausea or vomiting. Last documented bowel movement was on 10/15. . Objective Last 8 Hrs Date Time Temp Pulse Resp B/P Pulse Ox O2 Delivery O2 Flow Rate FiO2 10/18/16 19:45 36.4 100 16 92/61 95 Room Air 10/18/16 19:25 84 16 94 Room Air 10/18/16 16:00 96 Room Air 10/18/16 15:45 116 20 109/70 92 Room Air 10/18/16 14:15 107 18 93 Nasal Cannula 2.0 Physical Exam: General- lying in bed, no acute distress Eyes- [] Neck- no JVD Lungs- clear to auscultation Heart- irregular, no gallop Abdomen- bowel sounds, soft, nontender Extremities- trace pretibial edema, no calf tenderness Neuro- alert, mild confusion (date off by one day, oriented to place, person; can name the current and last 2 presidents) . Laboratory Results: Last 24 Hours Test 10/18/16 08:15 White Blood Count 10.99 K/uL Red Blood Count 3.37 M/uL Hemoglobin 11.0 g/dL Hematocrit 32.3 % Mean Corpuscular Volume 95.8 fL Mean Corpuscular Hemoglobin 32.6 pg Mean Corpuscular Hemoglobin Concent 34.1 g/dl Platelet Count 290 K/uL Mean Platelet Volume 9.7 fL Neutrophils (%) (Auto) 76.2 % Lymphocytes (%) (Auto) 10.7 % Monocytes (%) (Auto) 11.6 % Eosinophils (%) (Auto) 0.7 % Basophils (%) (Auto) 0.2 % Neutrophils # (Auto) 8.37 K/uL Lymphocytes # (Auto) 1.18 K/uL Monocytes # (Auto) 1.27 K/uL Eosinophils # (Auto) 0.08 K/uL Basophils # (Auto) 0.02 K/uL RDW Standard Deviation 49.4 fL RDW Coefficient of Variation 14.2 % Immature Granulocyte % (Auto) 0.6 % Immature Granulocyte # (Auto) 0.07 K/uL Prothrombin Time 14.1 SECONDS Prothromb Time International Ratio 1.3 Sodium Level 134 mmol/L Potassium Level 3.3 mmol/L Chloride Level 98 mmol/L Carbon Dioxide Level 26 mmol/L Anion Gap 10.0 mmol/L Blood Urea Nitrogen 10 mg/dl Creatinine 0.48 mg/dl Est Creatinine Clear Calc Drug Dose 111.7 ml/min Estimated GFR () 121.0 Estimated GFR (Non- 104.4 BUN/Creatinine Ratio 21.3 Random Glucose 106 mg/dl Calcium Level 8.4 mg/dl Magnesium Level 1.8 mg/dl Assessment & Plan ALCOHOL ABUSE / DELIRIUM TREMENS Experienced severe alcohol withdrawal symptoms. Initially received gabapentin and lorazepam per protocol. Subsequently received dexmedetomidine and chlordiazepoxide. Symptoms improved. Continue lorazepam when necessary. Continue thiamine, folate, multivitamins. Will need ongoing counseling. CHRONIC ATRIAL FIBRILLATION Rate fast at times. Blood pressure slow at times. Continue metoprolol with hold parameters. Continue warfarin with caution. PULMONARY EDEMA Mild pulmonary edema noted on CT of chest 10/16/16. Echo on 10/10/16 demonstrated normal left ventricular wall motion and systolic function. Pulmonary edema most likely secondary to fluid overload. Diurese PRN. Follow. HYPOTENSION Unable to do blood pressures in right arm due to humerus fracture. Unable to perform BP's in left arm due to axillary node dissection. Blood pressures readings performed and lower extremities have been variable. Follow. POSSIBLE PNEUMONIA / ATELECTASIS Imaging by routine chest films and CT showed pulmonary densities, atelectasis versus pneumonia. Receiving IV antibiotics. Incentive spirometry. Check f/u chest x-ray tomorrow. HYPONATREMIA Serum sodium as low as 130. Sodium today = 134. Follow. HYPOMAGNESEMIA Serum magnesium is low as 1.6. Received replacement. Magnesium today = 1.8. FRACTURE RIGHT HUMERUS S/P ORIF by Dr. Clayton 10/11. VITAMIN D DEFICIENCY / OSTEOPOROSIS Rx with calcium + vitamin D. 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 Alcohol intoxication likely contributing factor. PT / OT. TOBACCO ABUSE Tobacco cessation counseling. DEPRESSION Continue citalopram. VTE PROPHYLAXIS Continue SQ enoxaparin until INR therapeutic. Ambulate. DISPOSITION To be determined. May need inpatient rehabilitation. Family medicine follow-up with Dr. Min. visiting today and given update. . Current Inpatient Medications: Current Inpatient Medications Medications (Trade) Dose Ordered Sig/Ton Route Start Time Stop Time Status Last Admin Dose Admin Acetaminophen (Tylenol Tab) 650 mg Q4H PRN PO 10/09/16 13:00 11/08/16 12:59 10/18/16 16:13 650 MG Ondansetron HCl (Zofran Inj) 4 mg Q6H PRN IV 10/09/16 13:00 11/08/16 12:59 Nitroglycerin (Nitrostat Tab) 0.4 mg UD PRN SL 10/09/16 13:00 11/08/16 12:59 Citalopram Hydrobromide (celeXA TAB) 20 mg QAM PO 10/10/16 09:00 11/09/16 08:59 Future hold 10/18/16 07:46 20 MG Losartan Potassium (coZAAR TAB) 50 mg DAILY PO 10/10/16 09:00 11/09/16 08:59 Future hold 10/18/16 07:45 50 MG Magnesium Oxide (Mag-Ox Tab) 400 mg QAM PO 10/10/16 09:00 11/09/16 08:59 Future hold 10/18/16 07:47 400 MG Albuterol (Ventolin Hfa Inhaler) 2 puffs Q4H PRN INH 10/09/16 14:45 11/08/16 14:44 Nicotine (Nicoderm Cq 7 Mg Patch) 1 patch QAM TD 10/10/16 09:00 11/09/16 08:59 10/18/16 07:45 1 PATCH Miscellaneous (Remove Nicoderm Patch) 1 ea HS N/A 10/09/16 21:00 11/08/16 20:59 10/17/16 19:56 1 EA Furosemide (Lasix Tab) 20 mg MoWeFr@0900 PO 10/10/16 09:00 11/09/16 08:59 Future Hold 10/10/16 07:54 20 MG Aspirin (Ecotrin Tab) 81 mg QAM PO 10/10/16 09:00 11/09/16 08:59 10/18/16 07:46 81 MG Ergocalciferol (Vitamin D Cap) 50,000 interunit Q7D PO 10/10/16 14:00 11/09/16 13:59 Future Hold 10/10/16 16:21 50,000 INTERUNIT Lorazepam (Ativan Inj) PRN Dosing -Active Protocol Q1H PRN IV 10/11/16 21:00 11/10/16 20:59 10/18/16 01:15 2 MG Morphine Sulfate (MoRPHine SULFATE INJ) 1 mg Q4 PRN IV 10/11/16 21:00 10/25/16 20:59 10/17/16 21:17 1 MG Al Hydroxide/Mg Hydroxide (Maalox Susp) 30 ml Q4H PRN PO 10/11/16 21:00 11/10/16 20:59 Miscellaneous Medication (No Nsaids) 1 ea UD N/A 10/11/16 21:00 11/10/16 20:59 Multivitamins (Multivitamin Tab) 1 tab DAILY PO 10/12/16 09:00 11/11/16 08:59 Future hold 10/18/16 07:43 1 TAB Ferrous Gluconate (Ferrous Gluconate Tab) 324 mg TIDM PO 10/12/16 07:15 11/11/16 07:14 Future hold 10/18/16 10:54 324 MG Warfarin Sodium (Coumadin Tab) 5 mg DAILY@1600 PO 10/13/16 09:00 11/12/16 08:59 10/18/16 16:13 5 MG Pantoprazole Sodium (Protonix Tab) 40 mg QAM PO 10/13/16 09:00 11/12/16 08:59 10/18/16 07:47 40 MG Metoprolol Succinate (Toprol Xl Tab) 100 mg QAM PO 10/14/16 09:00 11/13/16 08:59 10/18/16 07:46 100 MG Enoxaparin Sodium (Lovenox Inj) 40 mg Q12H SQ 10/13/16 20:00 11/12/16 19:59 10/18/16 20:18 40 MG Polyethylene (Miralax Powder Packet) 17 gm DAILY PRN PO 10/13/16 09:30 11/12/16 09:29 Ioversol 125 ml 125 ml UD PRN IV 10/16/16 10:45 10/20/16 10:44 Piperacillin Sod/ Tazobactam Sod/ Dextrose (Zosyn Iv/D5 100ml) 115 ml @ 28.75 mls/ hr Q8H IV 10/16/16 20:00 10/23/16 19:59 10/18/16 20:18 28.75 MLS/HR Metoprolol Tartrate (Lopressor Iv) 2.5 mg Q6 PRN IV 10/16/16 13:00 10/17/16 11:32 2.5 MG Piperacillin Sod/ Tazobactam Sod (Consult) 1 ea UD PRN N/A 10/16/16 14:00 11/15/16 13:59 Ipratropium [place] (Atrovent 0.02% 0.5MG/2.5ML Neb) 0.5 mg TIDR INH 10/16/16 15:00 11/15/16 14:59 10/18/16 19:25 0.5 MG Levalbuterol (Xopenex 0.63 Mg/ 3 Ml Neb) 0.63 mg TIDR INH 10/16/16 15:00 11/15/16 14:59 10/18/16 19:25 0.63 MG Ipratropium [place] (Atrovent 0.02% 0.5MG/2.5ML Neb) 0.5 mg Q2H PRN INH 10/16/16 14:30 11/15/16 14:29 Levalbuterol 0.63 mg 0.63 mg Q2H PRN INH 10/16/16 14:30 11/15/16 14:29 Levofloxacin 750 mg/Prmx 150 ml @ 100 mls/hr Q24H IV 10/16/16 17:00 10/23/16 16:59 10/18/16 17:45 100 MLS/HR Acetaminophen 650 mg/Empty Bag 65 ml @ 260 mls/hr Q6H PRN IV 10/16/16 19:30 11/15/16 19:29 10/17/16 02:08 260 MLS/HR Potassium Chloride/Sodium Chloride (Nss + 20meq KCl 1000ml) 1,000 ml @ 75 mls/hr [id number] IV 10/17/16 13:45 11/16/16 13:44 10/18/16 17:45 75 MLS/HR Thiamine HCl (Vitamin B-1 Tab) 100 mg QAM PO 10/19/16 09:00 11/18/16 08:59 Folic Acid (Folvite Tab) 400 mcg QAM PO 10/19/16 09:00 11/18/16 08:59
[2016-10-19] VITALS (12 sets, daily range): BP systolic 99–122; BP diastolic 64–80; PULSE 80–123; TEMP 36.5–37; O2SAT 90–98
[2016-10-19] MEDS: ACETAMINOPHEN 325 MG TAB PO PRN ×3 (01:21→23:27)
[2016-10-19] MEDS: PIPERACILL/TAZOBAC IV 3.375 GM in DEXTROSE 5% 100ML 100 ML IV SCH ×3 (04:23→19:45)
[2016-10-19 06:51] LABS: BASO % 0.3 %; BASO ABS # 0.03 K/uL (0-0.2); COMPLETE YES; EOS % 0.8 %; IG% 0.6 %; LYMPH % 13.6 %; LYMPH ABS # 1.18 K/uL (1.2-3.4); MEAN CELL VOLUME 95.5 fL (80-100); MEAN CORPUSCULAR HEMOGLOBIN 31.2 pg (25-34); MEAN CORPUSCULAR HGB CONC 32.7 g/dl (32-36); MEAN PLATELET VOLUME 9.4 fL (7.4-10.4); MONO % 13.4 %; NEUT % 71.3 %; PLATELET COUNT 337 K/uL (130-400); RED BLOOD COUNT 3.14 M/uL (4.2-5.4); WHITE BLOOD COUNT 8.67 K/uL (4.8-10.8)
[2016-10-19] MEDS: IPRATROPIUM BROMIDE NEB SOLN 0.02% 2.5 ML VIAL INH SCH ×3 (06:56→19:12)
[2016-10-19] MEDS: LEVALBUTEROL 0.63MG/3 ML NEB INH SCH ×3 (06:56→19:12)
[2016-10-19 06:57] LABS: INR 1.3 (0.9-1.1); PROTHROMBIN TIME (PATIENT) 14.1 SECONDS (9.0-12.0)
[2016-10-19 07:26] LABS: BUN/CREATININE RATIO 17.2 (10-20); CALCIUM 8.6 mg/dl (8.5-10.1); CREATININE 0.39 mg/dl (0.60-1.20); POTASSIUM 3.8 mmol/L (3.5-5.1)
[2016-10-19] MEDS: METOPROLOL SUCC 50MG EXT REL TAB PO SCH ×2 (07:44→19:46)
[2016-10-19] MEDS: FERROUS SULFATE 325 MG TAB PO SCH (07:44)
[2016-10-19] MEDS: PANTOprazole SOD 40 MG TAB PO SCH (07:45)
[2016-10-19] MEDS: CITALOPRAM 20 MG TAB PO SCH (07:45)
[2016-10-19] MEDS: ASPIRIN 81 MG ECTAB PO SCH (07:45)
[2016-10-19] MEDS: THIAMINE HCL 100 MG TAB PO SCH (07:46)
[2016-10-19] MEDS: FoLIC ACID TAB 400 MCG TAB PO SCH (07:46)
[2016-10-19] MEDS: MULTIVITAMIN TAB PO SCH (07:46)
[2016-10-19] MEDS: MAGNESIUM OXIDE 400 MG TAB PO SCH (07:46)
[2016-10-19] MEDS: NICOTINE 7 MG/24 HR TDSY TD SCH (07:47)
--- NOTE | 2016-10-19 08:02 | DIAGNOSTIC IMAGING REPORT ---
CHEST 2 VIEWS ROUTINE CLINICAL HISTORY: Follow-up pulmonary edema. Possible pneumonia. COMPARISON STUDY: Chest radiograph October 12, 2016. FINDINGS: A proximal right humeral internal fixation is partially imaged. There is no pneumothorax. A small to moderate left pleural effusion is increased in size. There is a small right pleural effusion. Mild pulmonary edema has improved. Left basilar opacity is increased. Right basilar opacity persists. IMPRESSION: 1. Increase in size of a small to moderate left pleural effusion. Small right pleural effusion. 2. Persistent, but slightly improved, pulmonary edema. 3. Persistent bibasilar opacities which could reflect atelectasis or consolidation. Electronically signed by: Donny Smith M.D. 10/19/2016 8:00 AM Dictated Date/Time: 10/19/2016 7:57 AM
[2016-10-19] MEDS: WARFARIN SOD 5 MG TAB PO SCH (17:08)
[2016-10-19] MEDS: ENOXAPARIN 40 MG/0.4 ML SYR SQ SCH (19:47)
--- NOTE | 2016-10-19 21:35 | Progress Note ---
Medicine Progress Note Date & Time of Visit: October 19, 2016 at 16;20 . Subjective Doing better. More alert. No apparent hallucinations. No fever. Occasional nonproductive cough, no shortness of breath. No chest pain. No nausea or vomiting. No diarrhea. Diaz discontinued last evening. . Objective Last 8 Hrs Date Time Temp Pulse Resp B/P Pulse Ox O2 Delivery O2 Flow Rate FiO2 10/19/16 20:01 36.5 112 18 113/64 94 Room Air 10/19/16 20:00 97 Room Air 10/19/16 19:12 115 16 90 Room Air 10/19/16 16:00 96 Room Air 10/19/16 15:48 36.6 80 96 109/68 96 10/19/16 14:07 89 16 96 Room Air Physical Exam: General- lying in bed, no acute distress Eyes- anicteric Neck- no JVD Lungs- clear to auscultation Heart- irregular Abdomen- + bowel sounds, soft, nontender Extremities- trace pretibial edema, no calf tenderness; right upper extremity immobilized Neuro- alert . Laboratory Results: Last 24 Hours Test 10/19/16 06:25 White Blood Count 8.67 K/uL Red Blood Count 3.14 M/uL Hemoglobin 9.8 g/dL Hematocrit 30.0 % Mean Corpuscular Volume 95.5 fL Mean Corpuscular Hemoglobin 31.2 pg Mean Corpuscular Hemoglobin Concent 32.7 g/dl Platelet Count 337 K/uL Mean Platelet Volume 9.4 fL Neutrophils (%) (Auto) 71.3 % Lymphocytes (%) (Auto) 13.6 % Monocytes (%) (Auto) 13.4 % Eosinophils (%) (Auto) 0.8 % Basophils (%) (Auto) 0.3 % Neutrophils # (Auto) 6.18 K/uL Lymphocytes # (Auto) 1.18 K/uL Monocytes # (Auto) 1.16 K/uL Eosinophils # (Auto) 0.07 K/uL Basophils # (Auto) 0.03 K/uL RDW Standard Deviation 49.1 fL RDW Coefficient of Variation 14.3 % Immature Granulocyte % (Auto) 0.6 % Immature Granulocyte # (Auto) 0.05 K/uL Prothrombin Time 14.1 SECONDS Prothromb Time International Ratio 1.3 Sodium Level 137 mmol/L Potassium Level 3.8 mmol/L Chloride Level 104 mmol/L Carbon Dioxide Level 26 mmol/L Anion Gap 7.0 mmol/L Blood Urea Nitrogen 7 mg/dl Creatinine 0.39 mg/dl Est Creatinine Clear Calc Drug Dose 138.5 ml/min Estimated GFR () 129.6 Estimated GFR (Non- 111.8 BUN/Creatinine Ratio 17.2 Random Glucose 97 mg/dl Calcium Level 8.6 mg/dl Magnesium Level 2.0 mg/dl Assessment & Plan ALCOHOL ABUSE / DELIRIUM TREMENS Experienced severe alcohol withdrawal symptoms. Initially received gabapentin and lorazepam per protocol. Subsequently received dexmedetomidine and chlordiazepoxide. Symptoms improving. More alert today. Continue lorazepam PRN. Continue thiamine, folate, multivitamins. Problems related to alcoholism discussed. Will need ongoing counseling. CHRONIC ATRIAL FIBRILLATION Rate fast at times, probably secondary to alcohol withdrawal. Blood pressure slow at times. Continue metoprolol with hold parameters. Continue warfarin with caution. PULMONARY EDEMA Mild pulmonary edema noted on CT of chest 10/16/16. Echo on 10/10/16 demonstrated normal left ventricular wall motion and systolic function. Pulmonary edema most likely secondary to fluid overload. Chest x-ray today showed improved but persistent pulmonary edema. Diurese PRN. Follow. PLEURAL EFFUSION Chest x-ray today shows small to moderate left pleural effusion. Diurese. May need further evaluation if effusion persists or worsens. HYPOTENSION Blood pressure slow at times. Unable to do blood pressures in right arm due to humerus fracture. Unable to perform BP's in left arm due to axillary node dissection. Blood pressures readings performed and lower extremities have been variable. Losartan discontinued. Blood pressures improved. Follow. POSSIBLE PNEUMONIA / ATELECTASIS Imaging by routine chest films and CT showed pulmonary densities, atelectasis versus pneumonia. Receiving IV antibiotics. Incentive spirometry. No apparent infiltrates on today's chest x-ray. HYPONATREMIA Serum sodium as low as 130. Sodium today = 137. Follow. HYPOKALEMIA Potassium as low as 3.3. Today's potassium = 3.8. Follow. HYPOMAGNESEMIA Serum magnesium is low as 1.6. Received replacement. Magnesium today = 2.0. FRACTURE RIGHT HUMERUS S/P ORIF by Dr. Clayton 10/11. VITAMIN D DEFICIENCY / OSTEOPOROSIS Rx with calcium + vitamin D. 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 Alcohol intoxication likely contributing factor. PT / OT. TOBACCO ABUSE Tobacco cessation counseling. DEPRESSION Continue citalopram. VTE PROPHYLAXIS Continue SQ enoxaparin until INR therapeutic. Ambulate. DISPOSITION To be determined. May need inpatient rehabilitation. Family medicine follow-up with Dr. Min. visiting this afternoon and given update. . Current Inpatient Medications: Current Inpatient Medications Medications (Trade) Dose Ordered Sig/Ton Route Start Time Stop Time Status Last Admin Dose Admin Acetaminophen (Tylenol Tab) 650 mg Q4H PRN PO 10/09/16 13:00 11/08/16 12:59 10/19/16 09:03 650 MG Ondansetron HCl (Zofran Inj) 4 mg Q6H PRN IV 10/09/16 13:00 11/08/16 12:59 Nitroglycerin (Nitrostat Tab) 0.4 mg UD PRN SL 10/09/16 13:00 11/08/16 12:59 Citalopram Hydrobromide (celeXA TAB) 20 mg QAM PO 10/10/16 09:00 11/09/16 08:59 Future hold 10/19/16 07:45 20 MG Magnesium Oxide (Mag-Ox Tab) 400 mg QAM PO 10/10/16 09:00 11/09/16 08:59 Future hold 10/19/16 07:46 400 MG Albuterol (Ventolin Hfa Inhaler) 2 puffs Q4H PRN INH 10/09/16 14:45 11/08/16 14:44 Nicotine (Nicoderm Cq 7 Mg Patch) 1 patch QAM TD 10/10/16 09:00 11/09/16 08:59 10/19/16 07:47 1 PATCH Miscellaneous (Remove Nicoderm Patch) 1 ea HS N/A 10/09/16 21:00 11/08/16 20:59 10/19/16 19:46 1 EA Furosemide (Lasix Tab) 20 mg MoWeFr@0900 PO 10/10/16 09:00 11/09/16 08:59 Future Hold 10/10/16 07:54 20 MG Aspirin (Ecotrin Tab) 81 mg QAM PO 10/10/16 09:00 11/09/16 08:59 10/19/16 07:45 81 MG Ergocalciferol (Vitamin D Cap) 50,000 interunit Q7D PO 10/10/16 14:00 6/21/17 13:59 Future Hold 10/10/16 16:21 50,000 INTERUNIT Lorazepam (Ativan Inj) PRN Dosing -Active Protocol Q1H PRN IV 10/11/16 21:00 11/10/16 20:59 10/18/16 01:15 2 MG Al Hydroxide/Mg Hydroxide (Maalox Susp) 30 ml Q4H PRN PO 10/11/16 21:00 11/10/16 20:59 Miscellaneous Medication (No Nsaids) 1 ea UD N/A 10/11/16 21:00 11/10/16 20:59 Multivitamins (Multivitamin Tab) 1 tab DAILY PO 10/12/16 09:00 11/11/16 08:59 Future hold 10/19/16 07:46 1 TAB Warfarin Sodium (Coumadin Tab) 5 mg DAILY@1600 PO 10/13/16 09:00 11/12/16 08:59 10/19/16 17:08 5 MG Pantoprazole Sodium (Protonix Tab) 40 mg QAM PO 10/13/16 09:00 11/12/16 08:59 10/19/16 07:45 40 MG Polyethylene (Miralax Powder Packet) 17 gm DAILY PRN PO 10/13/16 09:30 11/12/16 09:29 Ioversol 125 ml 125 ml UD PRN IV 10/16/16 10:45 10/20/16 10:44 Piperacillin Sod/ Tazobactam Sod/ Dextrose (Zosyn Iv/D5 100ml) 115 ml @ 28.75 mls/ hr Q8H IV 10/16/16 20:00 10/23/16 19:59 10/19/16 19:45 28.75 MLS/HR Metoprolol Tartrate (Lopressor Iv) 2.5 mg Q6 PRN IV 10/16/16 13:00 10/17/16 11:32 2.5 MG Piperacillin Sod/ Tazobactam Sod (Consult) 1 ea UD PRN N/A 10/16/16 14:00 11/15/16 13:59 Ipratropium [place] (Atrovent 0.02% 0.5MG/2.5ML Neb) 0.5 mg TIDR INH 10/16/16 15:00 11/15/16 14:59 10/19/16 19:12 0.5 MG Levalbuterol (Xopenex 0.63 Mg/ 3 Ml Neb) 0.63 mg TIDR INH 10/16/16 15:00 11/15/16 14:59 10/19/16 19:12 0.63 MG Ipratropium [place] (Atrovent 0.02% 0.5MG/2.5ML Neb) 0.5 mg Q2H PRN INH 10/16/16 14:30 11/15/16 14:29 Levalbuterol (Xopenex 0.63 Mg/ 3 Ml Neb) 0.63 mg Q2H PRN INH 10/16/16 14:30 11/15/16 14:29 Thiamine HCl (Vitamin B-1 Tab) 100 mg QAM PO 10/19/16 09:00 11/18/16 08:59 10/19/16 07:46 100 MG Folic Acid (Folvite Tab) 400 mcg QAM PO 10/19/16 09:00 11/18/16 08:59 10/19/16 07:46 400 MCG Enoxaparin Sodium (Lovenox Inj) 40 mg HS SQ 10/19/16 21:00 11/18/16 20:59 10/19/16 19:47 40 MG Metoprolol Succinate (Toprol Xl Tab) 50 mg BID PO 10/19/16 09:00 11/18/16 08:59 10/19/16 19:46 50 MG Ferrous Sulfate (Feosol Tab) 325 mg DAILY@1200 PO 10/19/16 12:00 11/18/16 11:59 10/19/16 07:44 325 MG
[2016-10-20] VITALS (11 sets, daily range): BP systolic 108–162; BP diastolic 67–112; PULSE 76–118; TEMP 36.6–37; O2SAT 91–96
[2016-10-20] MEDS: PIPERACILL/TAZOBAC IV 3.375 GM in DEXTROSE 5% 100ML 100 ML IV SCH ×3 (04:26→21:26)
[2016-10-20 06:32] LABS: HEMATOCRIT 28.7 % (37-47); MEAN CELL VOLUME 96.3 fL (80-100); MEAN CORPUSCULAR HEMOGLOBIN 32.6 pg (25-34); MEAN CORPUSCULAR HGB CONC 33.8 g/dl (32-36); MEAN PLATELET VOLUME 9.6 fL (7.4-10.4); PLATELET COUNT 346 K/uL (130-400); RED BLOOD COUNT 2.98 M/uL (4.2-5.4); WHITE BLOOD COUNT 8.18 K/uL (4.8-10.8)
[2016-10-20] MEDS: LEVALBUTEROL 0.63MG/3 ML NEB INH SCH ×3 (07:06→19:48)
[2016-10-20] MEDS: IPRATROPIUM BROMIDE NEB SOLN 0.02% 2.5 ML VIAL INH SCH ×3 (07:06→19:48)
[2016-10-20 07:15] LABS: BUN/CREATININE RATIO 17.4 (10-20); CALCIUM 8.7 mg/dl (8.5-10.1); CREATININE 0.4 mg/dl (0.60-1.20); POTASSIUM 3.6 mmol/L (3.5-5.1)
[2016-10-20 07:20] LABS: INR 1.3 (0.9-1.1); PROTHROMBIN TIME (PATIENT) 14.5 SECONDS (9.0-12.0)
[2016-10-20] MEDS: ACETAMINOPHEN 325 MG TAB PO PRN ×3 (07:39→23:51)
[2016-10-20] MEDS: PANTOprazole SOD 40 MG TAB PO SCH (07:39)
[2016-10-20] MEDS: POTASSIUM CHLORIDE 20 MEQ TABCR PO SCH ×2 (07:39→21:20)
[2016-10-20] MEDS: FUROSEMIDE INJ 20 MG in SYRINGE 0 ML IV SCH ×2 (07:39→14:38)
[2016-10-20] MEDS: ASPIRIN 81 MG ECTAB PO SCH (07:40)
[2016-10-20] MEDS: METOPROLOL SUCC 50MG EXT REL TAB PO SCH ×2 (07:40→21:21)
[2016-10-20] MEDS: FoLIC ACID TAB 400 MCG TAB PO SCH (07:41)
[2016-10-20] MEDS: THIAMINE HCL 100 MG TAB PO SCH (07:41)
[2016-10-20] MEDS: CITALOPRAM 20 MG TAB PO SCH (07:41)
[2016-10-20] MEDS: MULTIVITAMIN TAB PO SCH (07:42)
[2016-10-20] MEDS: NICOTINE 7 MG/24 HR TDSY TD SCH (07:42)
[2016-10-20] MEDS: MAGNESIUM OXIDE 400 MG TAB PO SCH (07:42)
[2016-10-20] MEDS: FERROUS SULFATE 325 MG TAB PO SCH (12:54)
[2016-10-20] MEDS: WARFARIN SOD 5 MG TAB PO SCH (15:45)
[2016-10-20] MEDS: ENOXAPARIN 40 MG/0.4 ML SYR SQ SCH (21:23)
--- NOTE | 2016-10-20 21:43 | Progress Note ---
Medicine Progress Note Date & Time of Visit: Oct 20, 2016 at 10:40 . Subjective No fever. Cough improved. No short of breath. No chest pain. Diuresing well with furosemide. No nausea, vomiting, diarrhea. No apparent hallucinations. . Objective Last 8 Hrs Date Time Temp Pulse Resp B/P (MAP) Pulse Ox O2 Delivery O2 Flow Rate FiO2 10/20/16 20:00 95 Room Air 10/20/16 19:48 118 16 94 Room Air 10/20/16 19:18 36.7 115 20 124/67 (86) 93 Room Air 10/20/16 16:00 94 Room Air 10/20/16 15:19 36.6 94 20 108/77 (87) 94 Room Air 10/20/16 14:13 76 16 96 Room Air Physical Exam: General- lying in bed, no acute distress Eyes- anicteric Neck- no JVD Lungs- clear Heart- irregular Abdomen- + bowel sounds, soft, nontender Extremities- trace pretibial edema, no calf tenderness; right upper extremity immobilized Neuro- alert; oriented to year, place, person; able to name president . Laboratory Results: Last 24 Hours Test 10/20/16 06:00 White Blood Count 8.18 K/uL Red Blood Count 2.98 M/uL Hemoglobin 9.7 g/dL Hematocrit 28.7 % Mean Corpuscular Volume 96.3 fL Mean Corpuscular Hemoglobin 32.6 pg Mean Corpuscular Hemoglobin Concent 33.8 g/dl RDW Standard Deviation 51.0 fL RDW Coefficient of Variation 14.5 % Platelet Count 346 K/uL Mean Platelet Volume 9.6 fL Prothrombin Time 14.5 SECONDS Prothromb Time International Ratio 1.3 Sodium Level 138 mmol/L Potassium Level 3.6 mmol/L Chloride Level 104 mmol/L Carbon Dioxide Level 25 mmol/L Anion Gap 9.0 mmol/L Blood Urea Nitrogen 7 mg/dl Creatinine 0.40 mg/dl Est Creatinine Clear Calc Drug Dose 133.0 ml/min Estimated GFR () 128.5 Estimated GFR (Non- 110.9 BUN/Creatinine Ratio 17.4 Random Glucose 99 mg/dl Calcium Level 8.7 mg/dl Assessment & Plan ALCOHOL ABUSE / DELIRIUM TREMENS Experienced severe alcohol withdrawal symptoms. Initially received gabapentin and lorazepam per protocol. Subsequently received dexmedetomidine and chlordiazepoxide. Symptoms improving. More alert. Continue lorazepam PRN. Continue thiamine, folate, multivitamins. Problems related to alcoholism discussed. Will need ongoing counseling. CHRONIC ATRIAL FIBRILLATION Rate fast at times, probably secondary to alcohol withdrawal. Blood pressure slow at times. Continue metoprolol with hold parameters. Continue warfarin with caution. INR today = 1.3. PULMONARY EDEMA Mild pulmonary edema noted on CT of chest 10/16/16. Echo on 10/10/16 demonstrated normal left ventricular wall motion and systolic function. Pulmonary edema most likely secondary to fluid overload. Chest x-ray 10/19 showed improved but persistent pulmonary edema. Currently receiving furosemide 20 mg IV BID. Follow. PLEURAL EFFUSION Chest x-ray 10/19 shows small to moderate left pleural effusion. Diurese. May need further evaluation if effusion persists or worsens. HYPOTENSION Blood pressure slow at times. Unable to do blood pressures in right arm due to humerus fracture. Unable to perform BP's in left arm due to axillary node dissection. Blood pressures readings performed and lower extremities have been variable. Losartan discontinued. Blood pressures improved. Follow. POSSIBLE PNEUMONIA / ATELECTASIS Imaging by routine chest films and CT showed pulmonary densities, atelectasis versus pneumonia. Secretions also noted on CT in lower lobe bronchi. Receiving IV antibiotic therapy with piperacillin/tazobactam. Incentive spirometry. No apparent infiltrates on chest x-ray 10/19. Transition to oral therapy with amoxicillin/clavulanate to complete 7 day course of therapy. HYPONATREMIA Serum sodium as low as 130. Sodium today = 138. Follow. HYPOKALEMIA Potassium as low as 3.3. Today's potassium = 3.6. Follow. HYPOMAGNESEMIA Serum magnesium was low as 1.6. Received replacement. Follow. FRACTURE RIGHT HUMERUS S/P ORIF by Dr. Clayton 10/11. VITAMIN D DEFICIENCY / OSTEOPOROSIS Rx with calcium + vitamin D. 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 Alcohol intoxication likely contributing factor. PT / OT. TOBACCO ABUSE Tobacco cessation counseling. DEPRESSION Continue citalopram. VTE PROPHYLAXIS Continue SQ enoxaparin until INR therapeutic. Ambulate. DISPOSITION To be determined. May need inpatient rehabilitation. Family medicine follow-up with Dr. Min. ADDENDUM: Patient climbed out of bed without assistance and fell. She denied any injuries. Exam reveals superficial abrasion left arm. Seems have impulsive behavior and is still somewhat confused. 1:1 staffing ordered. . Current Inpatient Medications: Current Inpatient Medications Medications (Trade) Dose Ordered Sig/Ton Route Start Time Stop Time Status Last Admin Dose Admin Acetaminophen (Tylenol Tab) 650 mg Q4H PRN PO 10/09/16 13:00 11/08/16 12:59 10/20/16 17:49 650 MG Ondansetron HCl (Zofran Inj) 4 mg Q6H PRN IV 10/09/16 13:00 11/08/16 12:59 Nitroglycerin (Nitrostat Tab) 0.4 mg UD PRN SL 10/09/16 13:00 11/08/16 12:59 Citalopram Hydrobromide (celeXA TAB) 20 mg QAM PO 10/10/16 09:00 11/09/16 08:59 Future hold 10/20/16 07:41 20 MG Magnesium Oxide (Mag-Ox Tab) 400 mg QAM PO 10/10/16 09:00 11/09/16 08:59 Future hold 10/20/16 07:42 400 MG Albuterol (Ventolin Hfa Inhaler) 2 puffs Q4H PRN INH 10/09/16 14:45 11/08/16 14:44 Nicotine (Nicoderm Cq 7 Mg Patch) 1 patch QAM TD 10/10/16 09:00 11/09/16 08:59 10/20/16 07:42 1 PATCH Miscellaneous (Remove Nicoderm Patch) 1 ea HS N/A 10/09/16 21:00 11/08/16 20:59 10/20/16 21:20 1 EA Furosemide (Lasix Tab) 20 mg MoWeFr@0900 PO 10/10/16 09:00 11/09/16 08:59 Future Hold 10/10/16 07:54 20 MG Aspirin (Ecotrin Tab) 81 mg QAM PO 10/10/16 09:00 11/09/16 08:59 10/20/16 07:40 81 MG Ergocalciferol (Vitamin D Cap) 50,000 interunit Q7D PO 10/10/16 14:00 11/09/16 13:59 Future Hold 10/10/16 16:21 50,000 INTERUNIT Lorazepam (Ativan Inj) PRN Dosing -Active Protocol Q1H PRN IV 10/11/16 21:00 11/10/16 20:59 10/18/16 01:15 2 MG Al Hydroxide/Mg Hydroxide (Maalox Susp) 30 ml Q4H PRN PO 10/11/16 21:00 11/10/16 20:59 Miscellaneous Medication (No Nsaids) 1 [facility] N/A 10/11/16 21:00 11/10/16 20:59 Multivitamins (Multivitamin Tab) 1 tab DAILY PO 10/12/16 09:00 11/11/16 08:59 Future hold 10/20/16 07:42 1 TAB Warfarin Sodium (Coumadin Tab) 5 mg DAILY@1600 PO 10/13/16 09:00 11/12/16 08:59 10/20/16 15:45 5 MG Pantoprazole Sodium (Protonix Tab) 40 mg QAM PO 10/13/16 09:00 11/12/16 08:59 10/20/16 07:39 40 MG Polyethylene (Miralax Powder Packet) 17 gm DAILY PRN PO 10/13/16 09:30 11/12/16 09:29 Piperacillin Sod/ Tazobactam Sod 3.375 gm/Dextrose 115 ml @ 28.75 mls/ hr Q8H IV 10/16/16 20:00 10/23/16 19:59 10/20/16 21:26 28.75 MLS/HR Metoprolol Tartrate (Lopressor Iv) 2.5 mg Q6 PRN IV 10/16/16 13:00 10/17/16 11:32 2.5 MG Piperacillin Sod/ Tazobactam Sod (Consult) 1 [facility] PRN N/A 10/16/16 14:00 11/15/16 13:59 Ipratropium [place] (Atrovent 0.02% 0.5MG/2.5ML Neb) 0.5 mg TIDR INH 10/16/16 15:00 11/15/16 14:59 10/20/16 19:48 0.5 MG Levalbuterol (Xopenex 0.63 Mg/ 3 Ml Neb) 0.63 mg TIDR INH 10/16/16 15:00 11/15/16 14:59 10/20/16 19:48 0.63 MG Ipratropium [place] (Atrovent 0.02% 0.5MG/2.5ML Neb) 0.5 mg Q2H PRN INH 10/16/16 14:30 11/15/16 14:29 Levalbuterol (Xopenex 0.63 Mg/ 3 Ml Neb) 0.63 mg Q2H PRN INH 10/16/16 14:30 11/15/16 14:29 Thiamine HCl (Vitamin B-1 Tab) 100 mg QAM PO 10/19/16 09:00 11/18/16 08:59 10/20/16 07:41 100 MG Folic Acid (Folvite Tab) 400 mcg QAM PO 10/19/16 09:00 11/18/16 08:59 10/20/16 07:41 400 MCG Enoxaparin Sodium (Lovenox Inj) 40 mg HS SQ 10/19/16 21:00 11/18/16 20:59 10/20/16 21:23 40 MG Metoprolol Succinate (Toprol Xl Tab) 50 mg BID PO 10/19/16 09:00 11/18/16 08:59 10/20/16 21:21 50 MG Ferrous Sulfate (Feosol Tab) 325 mg DAILY@1200 PO 10/19/16 12:00 11/18/16 11:59 10/20/16 12:54 325 MG Furosemide 20 mg/ Syringe 2 ml @ 4 mls/min BID@0900,1500 IV 10/20/16 09:00 11/19/16 08:59 10/20/16 14:38 4 MLS/MIN Potassium Chloride (Klor-Con Tab) 20 meq BID PO 10/20/16 09:00 11/19/16 08:59 10/20/16 21:20 20 MEQ
[2016-10-21] VITALS (10 sets, daily range): BP systolic 106–169; BP diastolic 62–101; PULSE 87–121; TEMP 36.4–37.6; O2SAT 92–97
[2016-10-21] MEDS: PIPERACILL/TAZOBAC IV 3.375 GM in DEXTROSE 5% 100ML 100 ML IV SCH (04:16)
[2016-10-21] MEDS: ACETAMINOPHEN 325 MG TAB PO PRN ×3 (04:21→20:51)
[2016-10-21 06:21] LABS: HEMATOCRIT 32.6 % (37-47); MEAN CELL VOLUME 95.6 fL (80-100); MEAN CORPUSCULAR HEMOGLOBIN 30.5 pg (25-34); MEAN CORPUSCULAR HGB CONC 31.9 g/dl (32-36); MEAN PLATELET VOLUME 9.3 fL (7.4-10.4); PLATELET COUNT 443 K/uL (130-400); RED BLOOD COUNT 3.41 M/uL (4.2-5.4); WHITE BLOOD COUNT 11.43 K/uL (4.8-10.8)
[2016-10-21 06:31] LABS: INR 1.2 (0.9-1.1); PROTHROMBIN TIME (PATIENT) 13.4 SECONDS (9.0-12.0)
--- NOTE | 2016-10-21 06:31 | DIAGNOSTIC IMAGING REPORT ---
CHEST ONE VIEW PORTABLE CLINICAL HISTORY: Pulmonary edema. Pleural effusion. COMPARISON STUDY: 10/19/2016 FINDINGS: The heart remains enlarged. There is a persistent left pleural effusion with associated left basilar atelectasis/consolidation. A trace right pleural effusion is suspected. There is been resolution of the recently identified pulmonary edema.[ IMPRESSION: Resolution of the previously identified pulmonary edema. Persistent small to moderate left pleural effusion with associated left basilar airspace opacities. Trace right pleural effusion. Electronically signed by: Tyree Vidal M.D. 10/21/2016 6:30 AM Dictated Date/Time: 10/21/2016 6:28 AM
[2016-10-21 06:50] LABS: BUN/CREATININE RATIO 18.4 (10-20); CALCIUM 8.9 mg/dl (8.5-10.1); CREATININE 0.48 mg/dl (0.60-1.20); MAGNESIUM 1.9 mg/dl (1.8-2.4)
[2016-10-21] MEDS: IPRATROPIUM BROMIDE NEB SOLN 0.02% 2.5 ML VIAL INH SCH ×3 (07:03→19:16)
[2016-10-21] MEDS: LEVALBUTEROL 0.63MG/3 ML NEB INH SCH ×3 (07:03→19:16)
[2016-10-21] MEDS: AMOXICILLIN/CLAVULANATE TAB 875 MG TAB PO SCH ×2 (08:50→17:41)
[2016-10-21] MEDS: FUROSEMIDE 20 MG TAB PO SCH ×2 (08:50→17:41)
[2016-10-21] MEDS: MAGNESIUM OXIDE 400 MG TAB PO SCH (08:51)
[2016-10-21] MEDS: NICOTINE 7 MG/24 HR TDSY TD SCH (08:51)
[2016-10-21] MEDS: METOPROLOL SUCC 50MG EXT REL TAB PO SCH ×2 (08:51→20:49)
[2016-10-21] MEDS: POTASSIUM CHLORIDE 20 MEQ TABCR PO SCH ×2 (08:51→20:49)
[2016-10-21] MEDS: ASPIRIN 81 MG ECTAB PO SCH (08:51)
[2016-10-21] MEDS: CITALOPRAM 20 MG TAB PO SCH (08:51)
[2016-10-21] MEDS: MULTIVITAMIN TAB PO SCH (08:51)
[2016-10-21] MEDS: PANTOprazole SOD 40 MG TAB PO SCH (08:51)
[2016-10-21] MEDS: FoLIC ACID TAB 400 MCG TAB PO SCH (08:51)
[2016-10-21] MEDS: THIAMINE HCL 100 MG TAB PO SCH (08:52)
[2016-10-21] MEDS ORDERED: WARFARIN SOD 5 MG TAB PO ONE (09:00)
[2016-10-21] MEDS: FERROUS SULFATE 325 MG TAB PO SCH (12:00)
[2016-10-21] MEDS: ENOXAPARIN 40 MG/0.4 ML SYR SQ SCH (20:50)
--- NOTE | 2016-10-21 23:32 | Progress Note ---
Medicine Progress Note Date & Time of Visit: Oct 21, 2016 at 18:50 . Subjective No fever. No chest pain. Ongoing atrial fibrillation, ventricular rate fast at times. No cough or shortness of breath. No nausea, vomiting, diarrhea. No urinary symptoms. visiting. . Objective Last 8 Hrs Date Time Temp Pulse Resp B/P (MAP) Pulse Ox O2 Delivery O2 Flow Rate FiO2 10/21/16 23:07 37.6 121 18 106/62 (77) 92 Room Air 10/21/16 20:00 Room Air 10/21/16 19:21 112 16 96 Room Air 10/21/16 19:15 36.9 104 18 169/75 (106) 93 Room Air 10/21/16 16:00 Room Air Physical Exam: General- sitting in chair, no distress Eyes- anicteric Neck- no JVD Lungs- clear Heart- irregular, no gallop appreciated Abdomen- + bowel sounds, soft, nontender Extremities- trace pretibial edema, no calf tenderness; right upper extremity immobilized Neuro- alert; oriented to month and year, place, person; able to name president . Laboratory Results: Last 24 Hours Test 10/21/16 05:50 White Blood Count 11.43 K/uL Red Blood Count 3.41 M/uL Hemoglobin 10.4 g/dL Hematocrit 32.6 % Mean Corpuscular Volume 95.6 fL Mean Corpuscular Hemoglobin 30.5 pg Mean Corpuscular Hemoglobin Concent 31.9 g/dl RDW Standard Deviation 50.9 fL RDW Coefficient of Variation 14.5 % Platelet Count 443 K/uL Mean Platelet Volume 9.3 fL Prothrombin Time 13.4 SECONDS Prothromb Time International Ratio 1.2 Sodium Level 134 mmol/L Potassium Level 4.0 mmol/L Chloride Level 100 mmol/L Carbon Dioxide Level 24 mmol/L Anion Gap 10.0 mmol/L Blood Urea Nitrogen 9 mg/dl Creatinine 0.48 mg/dl Est Creatinine Clear Calc Drug Dose 110.8 ml/min Estimated GFR () 121.0 Estimated GFR (Non- 104.4 BUN/Creatinine Ratio 18.4 Random Glucose 100 mg/dl Calcium Level 8.9 mg/dl Magnesium Level 1.9 mg/dl Assessment & Plan ALCOHOL ABUSE / DELIRIUM TREMENS Experienced severe alcohol withdrawal symptoms. Initially received gabapentin and lorazepam per protocol. Subsequently received dexmedetomidine and chlordiazepoxide. Symptoms improved Continue thiamine, folate, multivitamins. Problems related to alcoholism discussed with patient and her . Will need ongoing counseling. CHRONIC ATRIAL FIBRILLATION Rate fast at times, probably secondary to alcohol withdrawal. Blood pressure low at times. Continue metoprolol with hold parameters. INR today = 1.2. Titrate warfarin. PULMONARY EDEMA Mild pulmonary edema noted on CT of chest 10/16/16. Echo on 10/10/16 demonstrated normal left ventricular wall motion and systolic function. Pulmonary edema most likely secondary to fluid overload. Chest x-ray today shows improved pulmonary edema. Continue furosemide 20 mg BID. Follow. PLEURAL EFFUSION Chest x-ray shows small to moderate left pleural effusion. Diurese. May need further evaluation if effusion persists or worsens. HYPOTENSION Blood pressure slow at times. Unable to do blood pressures in right arm due to humerus fracture. Unable to perform BP's in left arm due to axillary node dissection. Blood pressures readings performed and lower extremities have been variable. Losartan discontinued. Blood pressures improved. Follow. POSSIBLE PNEUMONIA / ATELECTASIS Imaging by routine chest films and CT showed pulmonary densities, atelectasis versus pneumonia. Secretions also noted on CT in lower lobe bronchi. Receiving IV antibiotic therapy with piperacillin/tazobactam. Incentive spirometry. No apparent infiltrates on chest x-ray 10/19. Transitioned to oral therapy with amoxicillin/clavulanate to complete 7 day course of therapy. HYPONATREMIA Serum sodium as low as 130. Sodium today = 134. Follow. HYPOKALEMIA Potassium as low as 3.3. Today's potassium = 4.0. Follow. HYPOMAGNESEMIA Serum magnesium was low as 1.6. Received replacement. Magnesium today = 1.9. Follow. FRACTURE RIGHT HUMERUS S/P ORIF by Dr. Clayton 10/11. VITAMIN D DEFICIENCY / OSTEOPOROSIS Rx with calcium + vitamin D. 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 Alcohol intoxication likely contributing factor. PT / OT. TOBACCO ABUSE Tobacco cessation counseling. DEPRESSION Continue citalopram. VTE PROPHYLAXIS Continue SQ enoxaparin until INR therapeutic. Ambulate. DISPOSITION To be determined. May need inpatient rehabilitation. Family medicine follow-up with Dr. Min. . Current Inpatient Medications: Current Inpatient Medications Medications (Trade) Dose Ordered Sig/Ton Route Start Time Stop Time Status Last Admin Dose Admin Acetaminophen (Tylenol Tab) 650 mg Q4H PRN PO 10/09/16 13:00 11/08/16 12:59 10/21/16 20:51 650 MG Ondansetron HCl (Zofran Inj) 4 mg Q6H PRN IV 10/09/16 13:00 11/08/16 12:59 Nitroglycerin (Nitrostat Tab) 0.4 mg UD PRN SL 10/09/16 13:00 11/08/16 12:59 Citalopram Hydrobromide (celeXA TAB) 20 mg QAM PO 10/10/16 09:00 11/09/16 08:59 Future hold 10/21/16 08:51 20 MG Magnesium Oxide (Mag-Ox Tab) 400 mg QAM PO 10/10/16 09:00 11/09/16 08:59 Future hold 10/21/16 08:51 400 MG Albuterol (Ventolin Hfa Inhaler) 2 puffs Q4H PRN INH 10/09/16 14:45 11/08/16 14:44 Nicotine (Nicoderm Cq 7 Mg Patch) 1 patch QAM TD 10/10/16 09:00 11/09/16 08:59 10/21/16 08:51 1 PATCH Miscellaneous (Remove Nicoderm Patch) 1 ea HS N/A 10/09/16 21:00 11/08/16 20:59 10/21/16 20:50 1 EA Aspirin (Ecotrin Tab) 81 mg QAM PO 10/10/16 09:00 11/09/16 08:59 10/21/16 08:51 81 MG Ergocalciferol (Vitamin D Cap) 50,000 interunit Q7D PO 10/10/16 14:00 11/09/16 13:59 Future Hold 10/10/16 16:21 50,000 INTERUNIT Lorazepam (Ativan Inj) PRN Dosing -Active Protocol Q1H PRN IV 10/11/16 21:00 11/10/16 20:59 10/18/16 01:15 2 MG Al Hydroxide/Mg Hydroxide (Maalox Susp) 30 ml Q4H PRN PO 10/11/16 21:00 11/10/16 20:59 Miscellaneous Medication (No Nsaids) 1 ea UD N/A 10/11/16 21:00 11/10/16 20:59 Multivitamins (Multivitamin Tab) 1 tab DAILY PO 10/12/16 09:00 11/11/16 08:59 Future hold 10/21/16 08:51 1 TAB Warfarin Sodium (Coumadin Tab) 5 mg DAILY@1600 PO 10/13/16 09:00 11/12/16 08:59 Future Hold 10/20/16 15:45 5 MG Pantoprazole Sodium (Protonix Tab) 40 mg QAM PO 10/13/16 09:00 11/12/16 08:59 10/21/16 08:51 40 MG Polyethylene (Miralax Powder Packet) 17 gm DAILY PRN PO 10/13/16 09:30 11/12/16 09:29 Metoprolol Tartrate (Lopressor Iv) 2.5 mg Q6 PRN IV 10/16/16 13:00 10/17/16 11:32 2.5 MG Ipratropium [place] (Atrovent 0.02% 0.5MG/2.5ML Neb) 0.5 mg TIDR INH 10/16/16 15:00 11/15/16 14:59 10/21/16 19:16 0.5 MG Levalbuterol (Xopenex 0.63 Mg/ 3 Ml Neb) 0.63 mg TIDR INH 10/16/16 15:00 11/15/16 14:59 10/21/16 19:16 0.63 MG Ipratropium [place] (Atrovent 0.02% 0.5MG/2.5ML Neb) 0.5 mg Q2H PRN INH 10/16/16 14:30 11/15/16 14:29 Levalbuterol (Xopenex 0.63 Mg/ 3 Ml Neb) 0.63 mg Q2H PRN INH 10/16/16 14:30 11/15/16 14:29 Thiamine HCl (Vitamin B-1 Tab) 100 mg QAM PO 10/19/16 09:00 11/18/16 08:59 10/21/16 08:52 100 MG Folic Acid (Folvite Tab) 400 mcg QAM PO 10/19/16 09:00 11/18/16 08:59 10/21/16 08:51 400 MCG Enoxaparin Sodium (Lovenox Inj) 40 mg HS SQ 10/19/16 21:00 11/18/16 20:59 6/2/17 20:50 40 MG Metoprolol Succinate (Toprol Xl Tab) 50 mg BID PO 10/19/16 09:00 11/18/16 08:59 10/21/16 20:49 50 MG Ferrous Sulfate (Feosol Tab) 325 mg DAILY@1200 PO 10/19/16 12:00 11/18/16 11:59 10/21/16 12:00 325 MG Potassium Chloride (Klor-Con Tab) 20 meq BID PO 10/20/16 09:00 11/19/16 08:59 10/21/16 20:49 20 MEQ Furosemide (Lasix Tab) 20 mg BID17 PO 10/21/16 09:00 11/20/16 08:59 10/21/16 17:41 20 MG Amoxicillin/ Clavulanate Potassium (Augmentin Tab) 875 mg BIDM PO 10/21/16 07:30 10/23/16 21:00 10/21/16 17:41 875 MG
[2016-10-22] VITALS (11 sets, daily range): BP systolic 98–140; BP diastolic 60–95; PULSE 74–111; TEMP 36.4–36.9; O2SAT 93–97
[2016-10-22] MEDS: IPRATROPIUM BROMIDE NEB SOLN 0.02% 2.5 ML VIAL INH SCH ×3 (07:02→19:08)
[2016-10-22] MEDS: LEVALBUTEROL 0.63MG/3 ML NEB INH SCH ×3 (07:03→19:08)
[2016-10-22 07:14] LABS: HEMATOCRIT 35.1 % (37-47); MEAN CELL VOLUME 96.4 fL (80-100); MEAN CORPUSCULAR HEMOGLOBIN 30.5 pg (25-34); MEAN CORPUSCULAR HGB CONC 31.6 g/dl (32-36); MEAN PLATELET VOLUME 9.5 fL (7.4-10.4); PLATELET COUNT 470 K/uL (130-400); RED BLOOD COUNT 3.64 M/uL (4.2-5.4); WHITE BLOOD COUNT 10.85 K/uL (4.8-10.8)
[2016-10-22] MEDS: PANTOprazole SOD 40 MG TAB PO SCH (07:21)
[2016-10-22] MEDS: POTASSIUM CHLORIDE 20 MEQ TABCR PO SCH ×2 (07:22→21:23)
[2016-10-22] MEDS: METOPROLOL SUCC 50MG EXT REL TAB PO SCH ×2 (07:22→21:23)
[2016-10-22] MEDS: MULTIVITAMIN TAB PO SCH (07:22)
[2016-10-22] MEDS: THIAMINE HCL 100 MG TAB PO SCH (07:22)
[2016-10-22] MEDS: FoLIC ACID TAB 400 MCG TAB PO SCH (07:22)
[2016-10-22] MEDS: AMOXICILLIN/CLAVULANATE TAB 875 MG TAB PO SCH ×2 (07:23→16:35)
[2016-10-22] MEDS: MAGNESIUM OXIDE 400 MG TAB PO SCH (07:23)
[2016-10-22] MEDS: ASPIRIN 81 MG ECTAB PO SCH (07:23)
[2016-10-22] MEDS: CITALOPRAM 20 MG TAB PO SCH (07:23)
[2016-10-22] MEDS: FUROSEMIDE 20 MG TAB PO SCH ×2 (07:24→16:35)
[2016-10-22 07:27] LABS: INR 1.5 (0.9-1.1); PROTHROMBIN TIME (PATIENT) 16.3 SECONDS (9.0-12.0)
[2016-10-22] MEDS: NICOTINE 7 MG/24 HR TDSY TD SCH (07:29)
[2016-10-22 08:00] LABS: BUN/CREATININE RATIO 19.7 (10-20); CALCIUM 9.1 mg/dl (8.5-10.1); CREATININE 0.39 mg/dl (0.60-1.20); POTASSIUM 4.2 mmol/L (3.5-5.1)
[2016-10-22] MEDS: FERROUS SULFATE 325 MG TAB PO SCH (11:01)
[2016-10-22] MEDS: ACETAMINOPHEN 325 MG TAB PO PRN ×3 (12:31→22:25)
[2016-10-22] MEDS: ENOXAPARIN 40 MG/0.4 ML SYR SQ SCH (21:24)
--- NOTE | 2016-10-22 23:34 | Progress Note ---
Medicine Progress Note Date & Time of Visit: Oct 22, 2016 at 16:20 . Subjective Doing well. No fever or chills. Minimal cough, no shortness of breath. No chest pain. No nausea, vomiting, diarrhea. No voiding difficulties. Walking with cane and assistance; no further falls. . Objective Last 8 Hrs Date Time Temp Pulse Resp B/P (MAP) Pulse Ox O2 Delivery O2 Flow Rate FiO2 10/22/16 20:00 Room Air 10/22/16 19:15 36.5 81 17 98/61 (73) 96 Room Air 10/22/16 19:09 76 16 96 Room Air 10/22/16 16:04 36.4 97 20 131/81 (98) 97 10/22/16 16:00 97 Room Air Physical Exam: General- lying in bed, no distress Eyes- anicteric Neck- no JVD Lungs- clear Heart- irregular Abdomen- + bowel sounds, soft, nontender Extremities- trace pretibial edema, no calf tenderness; right upper extremity immobilized Neuro- alert; oriented to month and year (missed date by one day), place, person . Laboratory Results: Last 24 Hours Test 10/22/16 06:12 White Blood Count 10.85 K/uL Red Blood Count 3.64 M/uL Hemoglobin 11.1 g/dL Hematocrit 35.1 % Mean Corpuscular Volume 96.4 fL Mean Corpuscular Hemoglobin 30.5 pg Mean Corpuscular Hemoglobin Concent 31.6 g/dl RDW Standard Deviation 52.2 fL RDW Coefficient of Variation 14.7 % Platelet Count 470 K/uL Mean Platelet Volume 9.5 fL Prothrombin Time 16.3 SECONDS Prothromb Time International Ratio 1.5 Sodium Level 136 mmol/L Potassium Level 4.2 mmol/L Chloride Level 101 mmol/L Carbon Dioxide Level 25 mmol/L Anion Gap 10.0 mmol/L Blood Urea Nitrogen 8 mg/dl Creatinine 0.39 mg/dl Est Creatinine Clear Calc Drug Dose 133.4 ml/min Estimated GFR () 129.6 Estimated GFR (Non- 111.8 BUN/Creatinine Ratio 19.7 Random Glucose 91 mg/dl Calcium Level 9.1 mg/dl Assessment & Plan ALCOHOL ABUSE / DELIRIUM TREMENS Experienced severe alcohol withdrawal symptoms. Initially received gabapentin and lorazepam per protocol. Subsequently received dexmedetomidine and chlordiazepoxide. Symptoms improved Continue thiamine, folate, multivitamins. Problems related to alcoholism discussed with patient and her . Will need ongoing counseling. CHRONIC ATRIAL FIBRILLATION Rate fast at times, probably secondary to alcohol withdrawal. Blood pressure low at times. Continue metoprolol with hold parameters. INR today = 1.5. Titrate warfarin. PULMONARY EDEMA Mild pulmonary edema noted on CT of chest 10/16/16. Echo on 10/10/16 demonstrated normal left ventricular wall motion and systolic function. Pulmonary edema most likely secondary to fluid overload. Chest x-ray 10/21 showed improved pulmonary edema. Continue furosemide 20 mg BID. Follow. PLEURAL EFFUSION Chest x-ray shows small to moderate left pleural effusion. Diurese. May need further evaluation if effusion persists or worsens. HYPOTENSION Blood pressure slow at times. Unable to do blood pressures in right arm due to humerus fracture. Unable to perform BP's in left arm due to axillary node dissection. Blood pressures readings performed and lower extremities have been variable. Losartan discontinued. Blood pressures improved. Follow. POSSIBLE PNEUMONIA / ATELECTASIS Imaging by routine chest films and CT showed pulmonary densities, atelectasis versus pneumonia. Secretions also noted on CT in lower lobe bronchi. Receiving IV antibiotic therapy with piperacillin/tazobactam. Incentive spirometry. No apparent infiltrates on chest x-ray 10/19. Transitioned to oral therapy with amoxicillin/clavulanate to complete 7 day course of therapy. HYPONATREMIA Serum sodium as low as 130. Sodium today = 136. Follow. HYPOKALEMIA Potassium as low as 3.3. Today's potassium = 4.2. Follow. HYPOMAGNESEMIA Serum magnesium was low as 1.6. Received replacement. Magnesium 10/21 was 1.9. Follow. FRACTURE RIGHT HUMERUS S/P ORIF by Dr. Clayton 10/11. VITAMIN D DEFICIENCY / OSTEOPOROSIS Rx with calcium + vitamin D. 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 Alcohol intoxication likely contributing factor. PT / OT. TOBACCO ABUSE Tobacco cessation counseling. DEPRESSION Continue citalopram. VTE PROPHYLAXIS Continue SQ enoxaparin until INR therapeutic. Ambulate. DISPOSITION To be determined. May need inpatient rehabilitation. Family medicine follow-up with Dr. Min. . Consultants: Ortho CCM Cardiology . Procedures: ORIF right proximal humerus by Dr. Clayton 10/11/16 Cardiac monitoring Intravenous fluids Intravenous medications Echocardiogram CT head CT upper extremity CTA chest Ultrasound liver PT OT . Current Inpatient Medications: Current Inpatient Medications Medications (Trade) Dose Ordered Sig/Ton Route Start Time Stop Time Status Last Admin Dose Admin Acetaminophen (Tylenol Tab) 650 mg Q4H PRN PO 10/09/16 13:00 11/08/16 12:59 10/22/16 22:25 650 MG Ondansetron HCl (Zofran Inj) 4 mg Q6H PRN IV 10/09/16 13:00 11/08/16 12:59 Nitroglycerin (Nitrostat Tab) 0.4 mg UD PRN SL 10/09/16 13:00 11/08/16 12:59 Citalopram Hydrobromide (celeXA TAB) 20 mg QAM PO 10/10/16 09:00 11/09/16 08:59 Future hold 10/22/16 07:23 20 MG Magnesium Oxide (Mag-Ox Tab) 400 mg QAM PO 10/10/16 09:00 11/09/16 08:59 Future hold 10/22/16 07:23 400 MG Albuterol (Ventolin Hfa Inhaler) 2 puffs Q4H PRN INH 10/09/16 14:45 11/08/16 14:44 Nicotine (Nicoderm Cq 7 Mg Patch) 1 patch QAM TD 10/10/16 09:00 11/09/16 08:59 10/22/16 07:29 1 PATCH Miscellaneous (Remove Nicoderm Patch) 1 ea HS N/A 10/09/16 21:00 11/08/16 20:59 10/22/16 21:23 1 EA Aspirin (Ecotrin Tab) 81 mg QAM PO 10/10/16 09:00 11/09/16 08:59 10/22/16 07:23 81 MG Ergocalciferol (Vitamin D Cap) 50,000 interunit Q7D PO 10/10/16 14:00 11/09/16 13:59 Future Hold 10/10/16 16:21 50,000 INTERUNIT Lorazepam (Ativan Inj) PRN Dosing -Active Protocol Q1H PRN IV 10/11/16 21:00 11/10/16 20:59 10/18/16 01:15 2 MG Al Hydroxide/Mg Hydroxide (Maalox Susp) 30 ml Q4H PRN PO 10/11/16 21:00 11/10/16 20:59 Miscellaneous Medication (No Nsaids) 1 ea UD N/A 10/11/16 21:00 11/10/16 20:59 Multivitamins (Multivitamin Tab) 1 tab DAILY PO 10/12/16 09:00 11/11/16 08:59 Future hold 10/22/16 07:22 1 TAB Warfarin Sodium (Coumadin Tab) 5 mg DAILY@1600 PO 10/13/16 09:00 11/12/16 08:59 Future Hold 10/20/16 15:45 5 MG Pantoprazole Sodium (Protonix Tab) 40 mg QAM PO 10/13/16 09:00 11/12/16 08:59 10/22/16 07:21 40 MG Polyethylene (Miralax Powder Packet) 17 gm DAILY PRN PO 10/13/16 09:30 11/12/16 09:29 Metoprolol Tartrate (Lopressor Iv) 2.5 mg Q6 PRN IV 10/16/16 13:00 10/17/16 11:32 2.5 MG Ipratropium [place] (Atrovent 0.02% 0.5MG/2.5ML Neb) 0.5 mg TIDR INH 10/16/16 15:00 11/15/16 14:59 10/22/16 19:08 0.5 MG Levalbuterol (Xopenex 0.63 Mg/ 3 Ml Neb) 0.63 mg TIDR INH 10/16/16 15:00 11/15/16 14:59 10/22/16 19:08 0.63 MG Ipratropium [place] (Atrovent 0.02% 0.5MG/2.5ML Neb) 0.5 mg Q2H PRN INH 10/16/16 14:30 11/15/16 14:29 Levalbuterol (Xopenex 0.63 Mg/ 3 Ml Neb) 0.63 mg Q2H PRN INH 10/16/16 14:30 11/15/16 14:29 Thiamine HCl (Vitamin B-1 Tab) 100 mg QAM PO 10/19/16 09:00 11/18/16 08:59 10/22/16 07:22 100 MG Folic Acid (Folvite Tab) 400 mcg QAM PO 10/19/16 09:00 11/18/16 08:59 10/22/16 07:22 400 MCG Enoxaparin Sodium (Lovenox Inj) 40 mg HS SQ 10/19/16 21:00 11/18/16 20:59 10/22/16 21:24 40 MG Metoprolol Succinate (Toprol Xl Tab) 50 mg BID PO 10/19/16 09:00 11/18/16 08:59 10/22/16 21:23 50 MG Ferrous Sulfate (Feosol Tab) 325 mg DAILY@1200 PO 10/19/16 12:00 11/18/16 11:59 10/22/16 11:01 325 MG Potassium Chloride (Klor-Con Tab) 20 meq BID PO 10/20/16 09:00 11/19/16 08:59 10/22/16 21:23 20 MEQ Furosemide (Lasix Tab) 20 mg BID17 PO 10/21/16 09:00 11/20/16 08:59 10/22/16 16:35 20 MG Amoxicillin/ Clavulanate Potassium (Augmentin Tab) 875 mg BIDM PO 10/21/16 07:30 10/23/16 21:00 10/22/16 16:35 875 MG
[2016-10-23] VITALS (11 sets, daily range): BP systolic 104–156; BP diastolic 55–97; PULSE 61–109; TEMP 36.6–37.1; O2SAT 94–99
[2016-10-23] MEDS: ACETAMINOPHEN 325 MG TAB PO PRN ×5 (04:51→20:36)
[2016-10-23] MEDS: LEVALBUTEROL 0.63MG/3 ML NEB INH SCH ×2 (07:15→19:29)
[2016-10-23] MEDS: IPRATROPIUM BROMIDE NEB SOLN 0.02% 2.5 ML VIAL INH SCH ×2 (07:15→19:29)
[2016-10-23 07:33] LABS: INR 1.3 (0.9-1.1); PROTHROMBIN TIME (PATIENT) 14.4 SECONDS (9.0-12.0)
[2016-10-23 08:03] LABS: CALCIUM 9.1 mg/dl (8.5-10.1); CREATININE 0.52 mg/dl (0.60-1.20); MAGNESIUM 1.9 mg/dl (1.8-2.4); POTASSIUM 4.3 mmol/L (3.5-5.1)
[2016-10-23] MEDS: ASPIRIN 81 MG ECTAB PO SCH (08:21)
[2016-10-23] MEDS: FoLIC ACID TAB 400 MCG TAB PO SCH (08:21)
[2016-10-23] MEDS: CITALOPRAM 20 MG TAB PO SCH (08:21)
[2016-10-23] MEDS: THIAMINE HCL 100 MG TAB PO SCH (08:22)
[2016-10-23] MEDS: POTASSIUM CHLORIDE 20 MEQ TABCR PO SCH ×2 (08:22→20:38)
[2016-10-23] MEDS: METOPROLOL SUCC 50MG EXT REL TAB PO SCH ×2 (08:22→20:41)
[2016-10-23] MEDS: MULTIVITAMIN TAB PO SCH (08:22)
[2016-10-23] MEDS: MAGNESIUM OXIDE 400 MG TAB PO SCH (08:22)
[2016-10-23] MEDS: PANTOprazole SOD 40 MG TAB PO SCH (08:23)
[2016-10-23] MEDS: FUROSEMIDE 20 MG TAB PO SCH ×2 (08:23→16:31)
[2016-10-23] MEDS: AMOXICILLIN/CLAVULANATE TAB 875 MG TAB PO SCH ×2 (08:23→17:58)
[2016-10-23] MEDS: NICOTINE 7 MG/24 HR TDSY TD SCH (08:24)
[2016-10-23] MEDS: FERROUS SULFATE 325 MG TAB PO SCH (12:21)
[2016-10-23] MEDS ORDERED: WARFARIN SOD 5 MG TAB PO ONE (16:00)
--- NOTE | 2016-10-23 19:09 | Progress Note ---
Medicine Progress Note Date & Time of Visit: Oct 23, 2016 at 11:30 . Subjective Gradually improving. No new problems or concerns. No fever or chills. Minimal cough, no shortness of breath. Remains in nature fibrillation. No chest pain. No nausea, vomiting, diarrhea. Voiding without difficulty. Less pain in right arm. . Objective Last 8 Hrs Date Time Temp Pulse Resp B/P (MAP) Pulse Ox O2 Delivery O2 Flow Rate FiO2 10/23/16 19:03 37.1 98 16 134/86 (102) 94 Room Air 10/23/16 14:35 36.9 109 16 156/97 (116) 95 Room Air 10/23/16 13:38 36.7 97 17 94 10/23/16 12:00 Room Air 10/23/16 12:00 Room Air Physical Exam: General- lying in bed, no distress Eyes- anicteric Neck- no JVD Lungs- clear Heart- irregular Abdomen- + bowel sounds, soft, nontender Extremities- trace pretibial edema, no calf tenderness; right upper extremity immobilized Neuro- alert; oriented x 3 . Laboratory Results: Last 24 Hours Test 10/23/16 06:18 Prothrombin Time 14.4 SECONDS Prothromb Time International Ratio 1.3 Sodium Level 135 mmol/L Potassium Level 4.3 mmol/L Chloride Level 101 mmol/L Carbon Dioxide Level 24 mmol/L Anion Gap 10.0 mmol/L Blood Urea Nitrogen 9 mg/dl Creatinine 0.52 mg/dl Est Creatinine Clear Calc Drug Dose 101.0 ml/min Estimated GFR () 117.9 Estimated GFR (Non- 101.7 BUN/Creatinine Ratio 17.0 Random Glucose 82 mg/dl Calcium Level 9.1 mg/dl Magnesium Level 1.9 mg/dl Assessment & Plan ALCOHOL ABUSE / DELIRIUM TREMENS Experienced severe alcohol withdrawal symptoms. Initially received gabapentin and lorazepam per protocol. Subsequently received dexmedetomidine and chlordiazepoxide. Symptoms improved Continue thiamine, folate, multivitamins. Problems related to alcoholism discussed with patient and her . Will need ongoing counseling. CHRONIC ATRIAL FIBRILLATION Rate fast at times, probably secondary to alcohol withdrawal. Blood pressure low at times. Continue metoprolol with hold parameters. INR today = 1.3. Titrate warfarin. PULMONARY EDEMA Mild pulmonary edema noted on CT of chest 10/16/16. Echo on 10/10/16 demonstrated normal left ventricular wall motion and systolic function. Pulmonary edema most likely secondary to fluid overload. Chest x-ray 10/21 showed improved pulmonary edema. Continue furosemide 20 mg BID. Follow. PLEURAL EFFUSION Chest x-ray shows small to moderate left pleural effusion. Diurese. May need further evaluation if effusion persists or worsens. HYPOTENSION Blood pressure slow at times per readings in lower extremities. Unable to do blood pressures in right arm due to humerus fracture. Unable to perform BP's in left arm due to axillary node dissection. Losartan discontinued. Blood pressures improved. Continue metoprolol succinate 50 mg twice a day. Follow. POSSIBLE PNEUMONIA / ATELECTASIS Imaging by routine chest films and CT showed pulmonary densities, atelectasis versus pneumonia. Secretions also noted on CT in lower lobe bronchi. Receiving IV antibiotic therapy with piperacillin/tazobactam. Incentive spirometry. No apparent infiltrates on chest x-ray 10/19. Transitioned to oral therapy with amoxicillin/clavulanate to complete 7 day course of therapy. HYPONATREMIA Serum sodium as low as 130. Sodium today = 135. Follow. HYPOKALEMIA Potassium as low as 3.3. Today's potassium = 4.3. Follow. HYPOMAGNESEMIA Serum magnesium was low as 1.6. Received replacement. Magnesium today = 1.9. Follow. FRACTURE RIGHT HUMERUS S/P ORIF by Dr. Clayton 10/11. VITAMIN D DEFICIENCY / OSTEOPOROSIS Rx with calcium + vitamin D. 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 Alcohol intoxication likely contributing factor. PT / OT. TOBACCO ABUSE Tobacco cessation counseling. DEPRESSION Continue citalopram. VTE PROPHYLAXIS Continue SQ enoxaparin until INR therapeutic. Ambulate. DISPOSITION To be determined. May need inpatient rehabilitation. Family medicine follow-up with Dr. Min. . Consultants: Ortho CCM Cardiology . Procedures: ORIF right proximal humerus by Dr. Clayton 10/11/16 Cardiac monitoring Intravenous fluids Intravenous medications Echocardiogram CT head CT upper extremity CTA chest Ultrasound liver PT OT . Current Inpatient Medications: Current Inpatient Medications Medications (Trade) Dose Ordered Sig/Ton Route Start Time Stop Time Status Last Admin Dose Admin Acetaminophen (Tylenol Tab) 650 mg Q4H PRN PO 10/09/16 13:00 11/08/16 12:59 10/23/16 16:29 650 MG Ondansetron HCl (Zofran Inj) 4 mg Q6H PRN IV 10/09/16 13:00 11/08/16 12:59 Nitroglycerin (Nitrostat Tab) 0.4 mg UD PRN SL 10/09/16 13:00 11/08/16 12:59 Citalopram Hydrobromide (celeXA TAB) 20 mg QAM PO 10/10/16 09:00 11/09/16 08:59 Future hold 10/23/16 08:21 20 MG Magnesium Oxide (Mag-Ox Tab) 400 mg QAM PO 10/10/16 09:00 11/09/16 08:59 Future hold 10/23/16 08:22 400 MG Albuterol (Ventolin Hfa Inhaler) 2 puffs Q4H PRN INH 10/09/16 14:45 11/08/16 14:44 Nicotine (Nicoderm Cq 7 Mg Patch) 1 patch QAM TD 10/10/16 09:00 11/09/16 08:59 10/23/16 08:24 1 PATCH Miscellaneous (Remove Nicoderm Patch) 1 ea HS N/A 10/09/16 21:00 11/08/16 20:59 10/22/16 21:23 1 EA Aspirin (Ecotrin Tab) 81 mg QAM PO 10/10/16 09:00 11/09/16 08:59 10/23/16 08:21 81 MG Ergocalciferol (Vitamin D Cap) 50,000 interunit Q7D PO 10/10/16 14:00 11/09/16 13:59 Future Hold 10/10/16 16:21 50,000 INTERUNIT Lorazepam (Ativan Inj) PRN Dosing -Active Protocol Q1H PRN IV 10/11/16 21:00 11/10/16 20:59 10/18/16 01:15 2 MG Al Hydroxide/Mg Hydroxide (Maalox Susp) 30 ml Q4H PRN PO 10/11/16 21:00 11/10/16 20:59 Miscellaneous Medication (No Nsaids) 1 ea UD N/A 10/11/16 21:00 11/10/16 20:59 Multivitamins (Multivitamin Tab) 1 tab DAILY PO 10/12/16 09:00 11/11/16 08:59 Future hold 10/23/16 08:22 1 TAB Warfarin Sodium (Coumadin Tab) 5 mg DAILY@1600 PO 10/13/16 09:00 11/12/16 08:59 Future Hold 10/20/16 15:45 5 MG Pantoprazole Sodium (Protonix Tab) 40 mg QAM PO 10/13/16 09:00 11/12/16 08:59 10/23/16 08:23 40 MG Polyethylene (Miralax Powder Packet) 17 gm DAILY PRN PO 10/13/16 09:30 11/12/16 09:29 Metoprolol Tartrate (Lopressor Iv) 2.5 mg Q6 PRN IV 10/16/16 13:00 10/17/16 11:32 2.5 MG Ipratropium [place] (Atrovent 0.02% 0.5MG/2.5ML Neb) 0.5 mg TIDR INH 10/16/16 15:00 11/15/16 14:59 10/23/16 07:15 0.5 MG Levalbuterol (Xopenex 0.63 Mg/ 3 Ml Neb) 0.63 mg TIDR INH 10/16/16 15:00 11/15/16 14:59 10/23/16 07:15 0.63 MG Ipratropium [place] (Atrovent 0.02% 0.5MG/2.5ML Neb) 0.5 mg Q2H PRN INH 10/16/16 14:30 11/15/16 14:29 Levalbuterol (Xopenex 0.63 Mg/ 3 Ml Neb) 0.63 mg Q2H PRN INH 10/16/16 14:30 11/15/16 14:29 Thiamine HCl (Vitamin B-1 Tab) 100 mg QAM PO 10/19/16 09:00 11/18/16 08:59 10/23/16 08:22 100 MG Folic Acid (Folvite Tab) 400 mcg QAM PO 10/19/16 09:00 11/18/16 08:59 10/23/16 08:21 400 MCG Enoxaparin Sodium (Lovenox Inj) 40 mg HS SQ 10/19/16 21:00 11/18/16 20:59 10/22/16 21:24 40 MG Metoprolol Succinate (Toprol Xl Tab) 50 mg BID PO 10/19/16 09:00 11/18/16 08:59 10/23/16 08:22 50 MG Ferrous Sulfate (Feosol Tab) 325 mg DAILY@1200 PO 10/19/16 12:00 11/18/16 11:59 10/23/16 12:21 325 MG Potassium Chloride (Klor-Con Tab) 20 meq BID PO 10/20/16 09:00 11/19/16 08:59 10/23/16 08:22 20 MEQ Furosemide (Lasix Tab) 20 mg BID17 PO 10/21/16 09:00 11/20/16 08:59 10/23/16 16:31 20 MG Amoxicillin/ Clavulanate Potassium (Augmentin Tab) 875 mg BIDM PO 10/21/16 07:30 10/23/16 21:00 10/23/16 17:58 875 MG
[2016-10-23] MEDS: ENOXAPARIN 40 MG/0.4 ML SYR SQ SCH (20:38)
[2016-10-24] VITALS (8 sets, daily range): BP systolic 124–152; BP diastolic 77–85; PULSE 86–107; TEMP 37–37.3; O2SAT 92–95
[2016-10-24] MEDS: ACETAMINOPHEN 325 MG TAB PO PRN ×3 (04:57→19:44)
[2016-10-24] MEDS: IPRATROPIUM BROMIDE NEB SOLN 0.02% 2.5 ML VIAL INH SCH ×3 (07:14→19:11)
[2016-10-24] MEDS: LEVALBUTEROL 0.63MG/3 ML NEB INH SCH ×3 (07:15→19:11)
[2016-10-24 07:32] LABS: INR 1.2 (0.9-1.1); PROTHROMBIN TIME (PATIENT) 12.7 SECONDS (9.0-12.0)
[2016-10-24] MEDS ORDERED: WARFARIN SOD 5 MG TAB PO STA (07:48)
[2016-10-24] MEDS: CITALOPRAM 20 MG TAB PO SCH (09:06)
[2016-10-24] MEDS: ASPIRIN 81 MG ECTAB PO SCH (09:06)
[2016-10-24] MEDS: FoLIC ACID TAB 400 MCG TAB PO SCH (09:07)
[2016-10-24] MEDS: POTASSIUM CHLORIDE 20 MEQ TABCR PO SCH ×2 (09:07→20:33)
[2016-10-24] MEDS: MAGNESIUM OXIDE 400 MG TAB PO SCH (09:08)
[2016-10-24] MEDS: FUROSEMIDE 20 MG TAB PO SCH ×2 (09:08→16:51)
[2016-10-24] MEDS: MULTIVITAMIN TAB PO SCH (09:08)
[2016-10-24] MEDS: THIAMINE HCL 100 MG TAB PO SCH (09:09)
[2016-10-24] MEDS: PANTOprazole SOD 40 MG TAB PO SCH (09:09)
[2016-10-24] MEDS: NICOTINE 7 MG/24 HR TDSY TD SCH (09:10)
[2016-10-24] MEDS: METOPROLOL SUCC 50MG EXT REL TAB PO SCH ×2 (09:10→20:32)
[2016-10-24] MEDS: FERROUS SULFATE 325 MG TAB PO SCH (12:19)
--- NOTE | 2016-10-24 16:50 | DIAGNOSTIC IMAGING REPORT ---
CHEST 2 VIEWS ROUTINE CLINICAL HISTORY: f/u pulm edema + pleural effusions dyspnea COMPARISON STUDY: 10/21/2016 FINDINGS: Improved aeration left base. Small residual left pleural effusion. Mild interstitial prominence both lung bases unchanged. Stable postoperative changes right shoulder. IMPRESSION: Improved aeration left base. Small residual left pleural effusion and bibasilar atelectasis Electronically signed by: Baltazar Chisholm M.D. 10/24/2016 4:49 PM Dictated Date/Time: 10/24/2016 4:47 PM
--- NOTE | 2016-10-24 16:55 | DIAGNOSTIC IMAGING REPORT ---
RIGHT SHOULDER MIN 2 VIEWS ROUTINE CLINICAL HISTORY: 2 week post op films Right pain COMPARISON: None. DISCUSSION: Findings consistent with open reduction internal fixation of the procedure described fracture of the humeral neck. Alignment is in general anatomic. Moderate bony distraction persists. There is no evidence for soft tissue swelling. IMPRESSION: No acute process on a postoperative basis. Electronically signed by: Baltazar Chisholm M.D. 10/24/2016 4:54 PM Dictated Date/Time: 10/24/2016 4:49 PM
[2016-10-24] MEDS: ENOXAPARIN 40 MG/0.4 ML SYR SQ SCH (21:23)
--- NOTE | 2016-10-24 23:09 | Progress Note ---
Medicine Progress Note Date & Time of Visit: Oct 24, 2016 at 16:00 . Subjective No new problems. No fever or chills. Cough essentially resolved. Dyspnea improved. No chest pain. No nausea, vomiting, diarrhea. Voiding without difficulty. . Objective Last 8 Hrs Date Time Temp Pulse Resp B/P (MAP) Pulse Ox O2 Delivery O2 Flow Rate FiO2 10/24/16 19:11 107 16 92 Room Air 10/24/16 16:56 37.0 101 18 124/83 (97) 95 Room Air 10/24/16 15:45 Room Air Physical Exam: General- no distress Eyes- anicteric Neck- no JVD Lungs- clear Heart- irregular Abdomen- + bowel sounds, soft, nontender Extremities- no pretibial edema, no calf tenderness; right upper extremity immobilized Neuro- alert; oriented x 3 . Laboratory Results: Last 24 Hours Test 10/24/16 07:00 Prothrombin Time 12.7 SECONDS Prothromb Time International Ratio 1.2 Assessment & Plan ALCOHOL ABUSE / DELIRIUM TREMENS Experienced severe alcohol withdrawal symptoms. Initially received gabapentin and lorazepam per protocol. Subsequently received dexmedetomidine and chlordiazepoxide. Symptoms improved Continue thiamine, folate, multivitamins. Problems related to alcoholism discussed with patient and her . Will need ongoing counseling. CHRONIC ATRIAL FIBRILLATION Rate fast at times, probably secondary to alcohol withdrawal. Blood pressure low at times. Continue metoprolol with hold parameters. Has been requiring relatively high doses of warfarin. INR today = 1.2. DOAC's considered, but probably best to continue warfarin in light of fall risk and alcoholism. PULMONARY EDEMA Pulmonary edema noted on CT of chest 10/16/16. Echo on 10/10/16 demonstrated normal left ventricular wall motion and systolic function. Pulmonary edema most likely secondary to fluid overload. Chest x-ray 10/21 showed improved pulmonary edema. Continue furosemide 20 mg BID. Check repeat chest x-ray today. PLEURAL EFFUSION Chest x-ray shows small to moderate left pleural effusion. Diurese. May need further evaluation if effusion persists or worsens. Check repeat chest x-ray today. HYPERTENSION / HYPOTENSION Blood pressure slow at times per readings in lower extremities. Unable to do blood pressures in right arm due to humerus fracture. Unable to perform BP's in left arm due to axillary node dissection. Losartan discontinued. Blood pressures improved. Continue metoprolol succinate 50 mg twice a day. Follow. POSSIBLE PNEUMONIA / ATELECTASIS Imaging by routine chest films and CT showed pulmonary densities, atelectasis versus pneumonia. Secretions also noted on CT in lower lobe bronchi. Receiving IV antibiotic therapy with piperacillin/tazobactam. Incentive spirometry. No apparent infiltrates on chest x-ray 10/19. Transitioned to oral therapy with amoxicillin/clavulanate to complete 7 day course of therapy. HYPONATREMIA Serum sodium as low as 130. Sodium yesterday = 135. Follow. HYPOKALEMIA Potassium as low as 3.3. Yesterday's potassium = 4.3. Follow. HYPOMAGNESEMIA Serum magnesium was low as 1.6. Received replacement. Magnesium yesterday = 1.9. Follow. FRACTURE RIGHT HUMERUS S/P ORIF by Dr. Clayton 10/11. VITAMIN D DEFICIENCY / OSTEOPOROSIS Rx with calcium + vitamin D. 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 Alcohol intoxication likely contributing factor. PT / OT. TOBACCO ABUSE Tobacco cessation counseling. DEPRESSION Continue citalopram. VTE PROPHYLAXIS Continue SQ enoxaparin until INR therapeutic. Ambulate. DISPOSITION Will need inpatient rehabilitation. Case Management consulted. Family medicine follow-up with Dr. Min. . Consultants: Ortho CCM Cardiology . Procedures: ORIF right proximal humerus by Dr. Clayton 10/11/16 Cardiac monitoring Intravenous fluids Intravenous medications Echocardiogram CT head CT upper extremity CTA chest Ultrasound liver PT OT . Current Inpatient Medications: Current Inpatient Medications Medications (Trade) Dose Ordered Sig/Ton Route Start Time Stop Time Status Last Admin Dose Admin Acetaminophen (Tylenol Tab) 650 mg Q4H PRN PO 10/09/16 13:00 11/08/16 12:59 10/24/16 19:44 650 MG Ondansetron HCl (Zofran Inj) 4 mg Q6H PRN IV 10/09/16 13:00 11/08/16 12:59 Nitroglycerin (Nitrostat Tab) 0.4 mg UD PRN SL 10/09/16 13:00 11/08/16 12:59 Citalopram Hydrobromide (celeXA TAB) 20 mg QAM PO 10/10/16 09:00 11/09/16 08:59 Future hold 10/24/16 09:06 20 MG Magnesium Oxide (Mag-Ox Tab) 400 mg QAM PO 10/10/16 09:00 11/09/16 08:59 Future hold 10/24/16 09:08 400 MG Albuterol (Ventolin Hfa Inhaler) 2 puffs Q4H PRN INH 10/09/16 14:45 11/08/16 14:44 Nicotine (Nicoderm Cq 7 Mg Patch) 1 patch QAM TD 10/10/16 09:00 11/09/16 08:59 10/24/16 09:10 1 PATCH Miscellaneous (Remove Nicoderm Patch) 1 ea HS N/A 10/09/16 21:00 11/08/16 20:59 10/24/16 20:31 1 EA Aspirin (Ecotrin Tab) 81 mg QAM PO 10/10/16 09:00 11/09/16 08:59 10/24/16 09:06 81 MG Ergocalciferol (Vitamin D Cap) 50,000 interunit Q7D PO 10/10/16 14:00 11/09/16 13:59 Future Hold 10/10/16 16:21 50,000 INTERUNIT Lorazepam (Ativan Inj) PRN Dosing -Active Protocol Q1H PRN IV 10/11/16 21:00 11/10/16 20:59 10/18/16 01:15 2 MG Al Hydroxide/Mg Hydroxide (Maalox Susp) 30 ml Q4H PRN PO 10/11/16 21:00 11/10/16 20:59 Miscellaneous Medication (No Nsaids) 1 ea UD N/A 10/11/16 21:00 11/10/16 20:59 Multivitamins (Multivitamin Tab) 1 tab DAILY PO 10/12/16 09:00 11/11/16 08:59 Future hold 10/24/16 09:08 1 TAB Warfarin Sodium (Coumadin Tab) 5 mg DAILY@1600 PO 10/13/16 09:00 11/12/16 08:59 Future Hold 10/20/16 15:45 5 MG Pantoprazole Sodium (Protonix Tab) 40 mg QAM PO 10/13/16 09:00 11/12/16 08:59 10/24/16 09:09 40 MG Polyethylene (Miralax Powder Packet) 17 gm DAILY PRN PO 10/13/16 09:30 11/12/16 09:29 Metoprolol Tartrate (Lopressor Iv) 2.5 mg Q6 PRN IV 10/16/16 13:00 10/17/16 11:32 2.5 MG Ipratropium [place] (Atrovent 0.02% 0.5MG/2.5ML Neb) 0.5 mg TIDR INH 10/16/16 15:00 11/15/16 14:59 10/24/16 19:11 0.5 MG Levalbuterol (Xopenex 0.63 Mg/ 3 Ml Neb) 0.63 mg TIDR INH 10/16/16 15:00 11/15/16 14:59 10/24/16 19:11 0.63 MG Ipratropium [place] (Atrovent 0.02% 0.5MG/2.5ML Neb) 0.5 mg Q2H PRN INH 10/16/16 14:30 11/15/16 14:29 Levalbuterol (Xopenex 0.63 Mg/ 3 Ml Neb) 0.63 mg Q2H PRN INH 10/16/16 14:30 11/15/16 14:29 Thiamine HCl (Vitamin B-1 Tab) 100 mg QAM PO 10/19/16 09:00 11/18/16 08:59 10/24/16 09:09 100 MG Folic Acid (Folvite Tab) 400 mcg QAM PO 10/19/16 09:00 11/18/16 08:59 10/24/16 09:07 400 MCG Enoxaparin Sodium (Lovenox Inj) 40 mg HS SQ 10/19/16 21:00 11/18/16 20:59 10/24/16 21:23 40 MG Metoprolol Succinate (Toprol Xl Tab) 50 mg BID PO 10/19/16 09:00 11/18/16 08:59 10/24/16 20:32 50 MG Ferrous Sulfate (Feosol Tab) 325 mg DAILY@1200 PO 10/19/16 12:00 11/18/16 11:59 10/24/16 12:19 325 MG Potassium Chloride (Klor-Con Tab) 20 meq BID PO 10/20/16 09:00 11/19/16 08:59 10/24/16 20:33 20 MEQ Furosemide (Lasix Tab) 20 mg BID17 PO 10/21/16 09:00 11/20/16 08:59 10/24/16 16:51 20 MG
[2016-10-25] VITALS (13 sets, daily range): BP systolic 92–123; BP diastolic 53–88; PULSE 86–135; TEMP 36.5–37.2; O2SAT 90–96
[2016-10-25] MEDS: ACETAMINOPHEN 325 MG TAB PO PRN ×4 (02:03→20:28)
[2016-10-25] MEDS: LEVALBUTEROL 0.63MG/3 ML NEB INH SCH ×2 (07:46→13:51)
[2016-10-25] MEDS: IPRATROPIUM BROMIDE NEB SOLN 0.02% 2.5 ML VIAL INH SCH ×2 (07:46→13:50)
[2016-10-25] MEDS: PANTOprazole SOD 40 MG TAB PO SCH (08:49)
[2016-10-25] MEDS: NICOTINE 7 MG/24 HR TDSY TD SCH (08:50)
[2016-10-25] MEDS: POTASSIUM CHLORIDE 20 MEQ TABCR PO SCH ×2 (08:51→20:27)
[2016-10-25] MEDS: FUROSEMIDE 20 MG TAB PO SCH (08:51)
[2016-10-25] MEDS: MAGNESIUM OXIDE 400 MG TAB PO SCH (08:52)
[2016-10-25] MEDS: MULTIVITAMIN TAB PO SCH (08:52)
[2016-10-25] MEDS: CITALOPRAM 20 MG TAB PO SCH (08:53)
[2016-10-25] MEDS: THIAMINE HCL 100 MG TAB PO SCH (08:53)
[2016-10-25] MEDS: ASPIRIN 81 MG ECTAB PO SCH (08:53)
[2016-10-25] MEDS: FoLIC ACID TAB 400 MCG TAB PO SCH (08:54)
[2016-10-25] MEDS: METOPROLOL SUCC 50MG EXT REL TAB PO SCH ×2 (08:54→20:21)
[2016-10-25] MEDS ORDERED: OPTIRAY 320 IV PRN (09:30)
[2016-10-25 09:45] LABS: INR 1.5 (0.9-1.1); PROTHROMBIN TIME (PATIENT) 15.8 SECONDS (9.0-12.0)
[2016-10-25 09:48] LABS: PARTIAL THROMBOPLASTIN RATIO 1.3
[2016-10-25 09:55] LABS: HEMATOCRIT 36.6 % (37-47); MEAN CELL VOLUME 94.3 fL (80-100); MEAN CORPUSCULAR HEMOGLOBIN 31.2 pg (25-34); MEAN CORPUSCULAR HGB CONC 33.1 g/dl (32-36); PLATELET COUNT 605 K/uL (130-400); RED BLOOD COUNT 3.88 M/uL (4.2-5.4); WHITE BLOOD COUNT 19.52 K/uL (4.8-10.8)
[2016-10-25 10:11] LABS: BLOOD UREA NITROGEN 10 mg/dl (7-18); BUN/CREATININE RATIO 18.2 (10-20); CALCIUM 9.2 mg/dl (8.5-10.1); CARBON DIOXIDE 21 mmol/L (21-32); CHLORIDE 97 mmol/L (98-107); CREATININE 0.56 mg/dl (0.60-1.20); GLUCOSE 166 mg/dl (70-99); MAGNESIUM 1.8 mg/dl (1.8-2.4); POTASSIUM 4.4 mmol/L (3.5-5.1); SODIUM 129 mmol/L (136-145)
--- NOTE | 2016-10-25 10:56 | DIAGNOSTIC IMAGING REPORT ---
CT ANGIOGRAM OF THE CHEST CLINICAL HISTORY: Proximal humeral fracture. Atrial fibrillation. Possible pulmonary embolism. SHORTNESS OF BREATH. COMPARISON STUDY: 10/08/2016 TECHNIQUE: Following the IV administration of 94 mL of [id number]-320, CT angiogram of the thorax was performed from the thoracic inlet to the lung bases utilizing the pulmonary embolus protocol. Images are reviewed in the axial, sagittal, and coronal planes. IV contrast was administered without complication. MIP imaging was performed. CT DOSE: 329.04 mGy.cm FINDINGS: The heart is enlarged. There is a small pericardial effusion. No pathologically enlarged axillary mediastinal or hilar lymph nodes were visualized. There was no evidence of thoracic aortic dilatation. There were no pulmonary artery filling defects to indicate acute pulmonary embolism. There is interval decrease in the size of the right pleural effusion width a trace residual. There is a moderate left pleural effusion similar in size to the preceding study. There was no evidence of focal pulmonary consolidation. There are left lower lobe atelectatic changes. There is right basilar atelectasis. IMPRESSION: 1. No CT evidence of acute pulmonary embolism 2. Cardiomegaly with a small pericardial effusion 3. Marked decrease in the size the right pleural effusion. Stable moderate left pleural effusion 4. Bibasal airspace opacities likely atelectatic Electronically signed by: Tyree Vidal M.D. 10/25/2016 10:55 AM Dictated Date/Time: 10/25/2016 10:51 AM
[2016-10-25] MEDS ORDERED: DIGOXIN IV 125 MCG in SYRINGE 9.5 ML IV STA (12:08)
[2016-10-25] MEDS ORDERED: ENOXAPARIN 1 MG/KG SQ SCH (12:30)
--- NOTE | 2016-10-25 12:30 | Cardiology Follow-Up ---
Subjective General Date of Service: Oct 25, 2016. Chief Complaint: chest pain atrial fibrillatory rapid ventricular rate Pt evaluation today including: conversation w/ patient, physical exam History of Present Illness The patient is a 61 year old female seen in reassessment. The patient had initially presented on 10/09/16 for right shoulder pain after having had a mechanical fall. She was chasing her dog, and tripped over a dog barrier in her home and impacted her right upper arm into a wall with a resultant humerus fracture. Thus far this hospitalization she underwent surgical open reduction internal fixation. She has remained hospitalized for multiple issues including alcohol withdrawal, treatment of chronic atrial fibrillation with episodes of fast ventricular rates, and volume overload in the setting of preserved ejection fraction with bilateral pleural effusions as well as a small circumferential pericardial effusion. The patient had been assessed by the undersigned during hospital stay in July 2016 for atrial fibrillation. During that time rate control with metoprolol was recommended and she was discharged on Coumadin. We had explored starting her on a direct oral anticoagulant medication for stroke prophylaxis however this was not an option as the cost was prohibitively high for her co-pay and therefore she was discharged on Coumadin. She has required high doses of Coumadin as an outpatient and previous schedule cardioversion had been canceled due to subtherapeutic international normalized ratios. During her hospital stay, she has responded relatively well to cautious diuresis and the size of the right pleural effusion has reduced. There is still a moderate left pleural effusion noted. Her international normalized ratio has been below goal for the last several days and she has been on DVT prophylaxis dose Lovenox and has received several doses of 10 mg Coumadin per INR still remains below goal. Today she was on the general medical floor. Shortly after the favian are removed from her right shoulder incision she described sensation of chest discomfort over the left side of her chest and breast that was worse with deep inspiration. Her atrial fibrillation rates were noted to be increased. His pump to transfer back to the telemetry floor and she underwent a stat CT angiogram which revealed no evidence of pulmonary embolism. Cardiac enlargement was noted with a small pericardial effusion similar to her recent echocardiogram results this hospital stay. There was a noted marked decrease in the size the right pleural effusion and a moderate left pleural effusion had been unchanged. I was asked to reassess her from a cardiac perspective. During my assessment the patient's ventricular rate improved from the 130 beat per minute range to the 110-115 beat per minute range and she was in no distress. Allergies Coded Allergies: Sulfa Antibiotics (Verified Allergy, Mild, "SULFA" -- unknown rxn, 09/15/16 ) Social History Smoking Status: Current Every Day Smoker Hx Tobacco Use In Past Year?: Yes Hx Alcohol Use - Type And Amou: Yes ( 2 - 3 beers a day) Hx Substance Use - Type And Am: No Problem List Medical Problems: (1) Abnormal EKG Status: Acute (2) Alcohol use Status: Acute (3) Atrial fibrillation Status: Acute (4) Chest pain on respiration Status: Acute (5) Closed fracture of right proximal humerus Status: Acute (6) Elevated troponin Status: Acute (7) Head trauma Status: Acute (8) Hypomagnesemia Status: Acute (9) Hyponatremia Status: Acute (10) Mitral valve regurgitation Status: Acute (11) Supratherapeutic INR Status: Acute (12) Syncope Status: Acute (13) Tachycardia Status: Acute Physical Exam Vital Signs Last Vital Signs Documentation Date Time Temp Pulse Resp B/P (MAP) Pulse Ox O2 Delivery O2 Flow Rate FiO2 10/25/16 11:09 36.7 86 20 106/76 (86) 96 Room Air 10/18/16 16:00 10/18/16 08:00 95 Physical Exam Constitutional: Level of Distress: NAD Psychiatric: Mental Status: lethargic Memory: recent memory normal Head: normocephalic Eyes: Pupils: PERRLA Neck: supple Lungs: Respiratory effort: no dyspnea Auscultation: deminished air movement, pertinent finding (decreased breath sounds bilaterally at the bases) Cardiovascular: Heart Auscultation: no murmurs, no rubs, no gallops, irregular rate rhythm Abdomen: Bowel Sounds: normal Inspection & Palpation: soft Extremities: no edema Neurologic: Gait & Station: pertinent finding (no focal neurologic deficits) Assessment and Plan Assessment and Plan EKG performed today 10/25/2016 at 90 6 AM revealed atrial fibrillation with rapid ventricular response at [address] depression to suggest ischemiaLast Resulted 10/25/16 09:21 Last Resulted 10/25/16 09:21 Past 24 Hours Test 10/25/16 09:21 10/25/16 09:33 Range/Units Creatine Kinase MB < 0.5 L 0.5-3.6 ng/ml Creatine Kinase MB Ratio 0-3.0 Prothromb Time International Ratio 1.5 H 0.9-1.1 Prothrombin Time 15.8 H 9.0-12.0 SECONDS Total Creatine Kinase 24 L 26-192 U/L Troponin I 0.017 0-0.045 ng/ml Impression: 61-year-old female 1. Chronic persistent atrial fibrillation, severe biatrial enlargement, preserved LVEF, small circumferential pericardial effusion. 2. Diastolic heart failure with volume overload 3. Recent mechanical fall, ORIF of right humerus 4. Alcohol addiction, status post treatment for alcohol withdrawal this admission 5. Borderline low blood pressure Plan: Given the patient's stroke risk with persistent atrial fibrillation, we'll discontinue her DVT prophylaxis dose Lovenox and start full anticoagulation dose Lovenox in its place. Continue Coumadin loading, 10 mg by mouth daily for goal INR of 2-3. Transition oral furosemide from 20 mg by mouth daily to torsemide 5 mg by mouth daily. Plan to repeat chemistry panel tomorrow to follow her kidney function since she received IV contrast. Regarding her transient chest discomfort. CT angiogram excluded the presence of pulmonary embolism. She is comfortable, and there is no definite evidence of an acute coronary syndrome. I'm going to recommend maintaining the same dose of metoprolol succinate 50 mg twice a day, and add digoxin. Case discussed with Dr. Morrissey. Laboratory Results Last 24 Hours Test 10/25/16 09:21 10/25/16 09:33 White Blood Count 19.52 K/uL Red Blood Count 3.88 M/uL Hemoglobin 12.1 g/dL Hematocrit 36.6 % Mean Corpuscular Volume 94.3 fL Mean Corpuscular Hemoglobin 31.2 pg Mean Corpuscular Hemoglobin Concent 33.1 g/dl RDW Standard Deviation 49.9 fL RDW Coefficient of Variation 14.6 % Platelet Count 605 K/uL Mean Platelet Volume 9.0 fL Prothrombin Time 15.8 SECONDS Prothromb Time International Ratio 1.5 Activated Partial Thromboplast Time 35.0 SECONDS Partial Thromboplastin Ratio 1.3 Sodium Level 129 mmol/L Potassium Level 4.4 mmol/L Chloride Level 97 mmol/L Carbon Dioxide Level 21 mmol/L Anion Gap 11.0 mmol/L Blood Urea Nitrogen 10 mg/dl Creatinine 0.56 mg/dl Est Creatinine Clear Calc Drug Dose 93.8 ml/min Estimated GFR () 115.0 Estimated GFR (Non- 99.2 BUN/Creatinine Ratio 18.2 Random Glucose 166 mg/dl Calcium Level 9.2 mg/dl Magnesium Level 1.8 mg/dl Total Creatine Kinase 24 U/L Creatine Kinase MB < 0.5 ng/ml Creatine Kinase MB Ratio Troponin I 0.017 ng/ml
[2016-10-25] MEDS: FERROUS SULFATE 325 MG TAB PO SCH (14:11)
[2016-10-25] MEDS: ENOXAPARIN 80 MG/0.8 ML SYR SQ SCH (16:00)
[2016-10-25] MEDS: WARFARIN SOD 5 MG TAB PO SCH (16:02)
[2016-10-25] MEDS: DIGOXIN 0.125 MG TAB PO SCH (16:55)
--- NOTE | 2016-10-25 18:34 | Progress Note ---
Medicine Progress Note Date & Time of Visit: Oct 25, 2016 at 09:15 . Subjective Experienced sudden onset of chest pain this morning. CP described as moderately severe left parasternal pressure. No radiation. Worse with deep inspiration. No cough. No sweats. No N/V. [place] removed from right shoulder earlier this morning. . Objective Last 8 Hrs Date Time Temp Pulse Resp B/P (MAP) Pulse Ox O2 Delivery O2 Flow Rate FiO2 10/25/16 16:55 122 10/25/16 15:19 36.5 116 20 115/80 (92) 96 Room Air 10/25/16 14:11 100 10/25/16 13:50 97 16 95 Room Air 10/25/16 11:09 36.7 86 20 106/76 (86) 96 Room Air 10/25/16 10:58 36.9 106 18 95/61 (72) 92 Room Air 10/25/16 10:46 37.0 135 20 95 Physical Exam: General- no distress Eyes- anicteric Neck- no JVD Lungs- clear Heart- irregular Abdomen- + bowel sounds, soft, nontender Extremities- no pretibial edema, no calf tenderness; right upper extremity immobilized Neuro- alert; oriented x 3 . Laboratory Results: Last 24 Hours Test 10/25/16 09:21 10/25/16 09:33 10/25/16 16:08 White Blood Count 19.52 K/uL Red Blood Count 3.88 M/uL Hemoglobin 12.1 g/dL Hematocrit 36.6 % Mean Corpuscular Volume 94.3 fL Mean Corpuscular Hemoglobin 31.2 pg Mean Corpuscular Hemoglobin Concent 33.1 g/dl RDW Standard Deviation 49.9 fL RDW Coefficient of Variation 14.6 % Platelet Count 605 K/uL Mean Platelet Volume 9.0 fL Prothrombin Time 15.8 SECONDS Prothromb Time International Ratio 1.5 Activated Partial Thromboplast Time 35.0 SECONDS Partial Thromboplastin Ratio 1.3 Sodium Level 129 mmol/L Potassium Level 4.4 mmol/L Chloride Level 97 mmol/L Carbon Dioxide Level 21 mmol/L Anion Gap 11.0 mmol/L Blood Urea Nitrogen 10 mg/dl Creatinine 0.56 mg/dl Est Creatinine Clear Calc Drug Dose 93.8 ml/min Estimated GFR () 115.0 Estimated GFR (Non- 99.2 BUN/Creatinine Ratio 18.2 Random Glucose 166 mg/dl Calcium Level 9.2 mg/dl Magnesium Level 1.8 mg/dl Total Creatine Kinase 24 U/L 24 U/L Creatine Kinase MB < 0.5 ng/ml < 0.5 ng/ml Creatine Kinase MB Ratio Troponin I 0.017 ng/ml 0.017 ng/ml Diagnostic Imaging: CTA CHEST IMPRESSION: 1. No CT evidence of acute pulmonary embolism 2. Cardiomegaly with a small pericardial effusion 3. Marked decrease in the size the right pleural effusion. Stable moderate left pleural effusion 4. Bibasal airspace opacities likely atelectatic Electronically signed by: Tyree Vidal M.D. 10/25/2016 10:55 AM Dictated Date/Time: 10/25/2016 10:51 AM . Other Studies: EKG performed at 09:06 reviewed and demonstrated atrial fibrillation at 130 / minute, [id number].. . Assessment & Plan CHEST PAIN PE ruled out by CTA. First set cardiac markers negative. Check serial cardiac markers. Cardiology following. CHRONIC ATRIAL FIBRILLATION Rate had been under better control past few days, but rapid ventricular response this morning. Continue metoprolol with hold parameters. Has been requiring relatively high doses of warfarin. INR today = 1.5. DOAC's considered, but probably best to continue warfarin in light of fall risk and alcoholism. Continue enoxaparin until INR therapeutic. PULMONARY EDEMA Pulmonary edema noted on CT of chest 10/16/16. Echo on 10/10/16 demonstrated normal left ventricular wall motion and systolic function. Pulmonary edema most likely secondary to fluid overload / acute on chronic left ventricular diastolic heart failure. Improved with diuresis. HYPERTENSION / HYPOTENSION Blood pressure slow at times per readings in lower extremities. Unable to do blood pressures in right arm due to humerus fracture. Unable to perform BP's in left arm due to axillary node dissection. Losartan discontinued. Blood pressures improved. Continue metoprolol succinate 50 mg twice a day. Follow. PLEURAL EFFUSIONS Probably secondary to fluid overload. Improved with diuresis, but persistent per CT. Continue diuresis. May need further evaluation if effusions persist. POSSIBLE PNEUMONIA / ATELECTASIS Imaging by routine chest films and CT showed pulmonary densities, atelectasis versus pneumonia. Secretions also noted on CT in lower lobe bronchi. Receiving IV antibiotic therapy with piperacillin/tazobactam. Incentive spirometry. No apparent infiltrates on chest x-ray 10/19. Transitioned to oral therapy with amoxicillin/clavulanate to complete 7 day course of therapy. HYPONATREMIA Serum sodium as low as 130. Sodium 10/23 was 135. Sodium today was 129. Probable SIADH. Fluid restrict. Follow. HYPOKALEMIA Potassium as low as 3.3. Today's potassium = 4.4. Follow. HYPOMAGNESEMIA Serum magnesium was low as 1.6. Received replacement. Magnesium yesterday = 1.8. Follow. FRACTURE RIGHT HUMERUS S/P ORIF by Dr. Clayton 10/11. [place] removed 10/25/16. Continue OT. VITAMIN D DEFICIENCY / OSTEOPOROSIS Rx with calcium + vitamin D. 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 Alcohol intoxication likely contributing factor. PT / OT. ALCOHOL ABUSE / DELIRIUM TREMENS Experienced severe alcohol withdrawal symptoms. Initially received gabapentin and lorazepam per protocol. Subsequently received dexmedetomidine and chlordiazepoxide. Symptoms improved Continue thiamine, folate, multivitamins. Problems related to alcoholism discussed with patient and her . Will need ongoing counseling. TOBACCO ABUSE Tobacco cessation counseling. DEPRESSION Continue citalopram. LEUKOCYTOSIS WBC 19,000 today. Afebrile. No new symptoms suggestive of infection. Finished 7 day course of antibiotics for suspected aspiration pneumonia. Follow. Further evaluation as indicated if febrile or leukocytosis persists. VTE PROPHYLAXIS Continue SQ enoxaparin until INR therapeutic. Ambulate. DISPOSITION Will need inpatient rehabilitation. Case Management consulted. Family medicine follow-up with Dr. Min. . Consultants: Ortho CCM Cardiology . Procedures: ORIF right proximal humerus by Dr. Clayton 10/11/16 Cardiac monitoring Intravenous fluids Intravenous medications Echocardiogram CT head CT upper extremity CTA chest Ultrasound liver PT OT . Current Inpatient Medications: Current Inpatient Medications Medications (Trade) Dose Ordered Sig/Ton Route Start Time Stop Time Status Last Admin Dose Admin Acetaminophen (Tylenol Tab) 650 mg Q4H PRN PO 10/09/16 13:00 11/08/16 12:59 10/25/16 15:59 650 MG Ondansetron HCl (Zofran Inj) 4 mg Q6H PRN IV 10/09/16 13:00 11/08/16 12:59 Nitroglycerin (Nitrostat Tab) 0.4 mg UD PRN SL 10/09/16 13:00 11/08/16 12:59 Citalopram Hydrobromide (celeXA TAB) 20 mg QAM PO 10/10/16 09:00 11/09/16 08:59 Future hold 10/25/16 08:53 20 MG Magnesium Oxide (Mag-Ox Tab) 400 mg QAM PO 10/10/16 09:00 11/09/16 08:59 Future hold 10/25/16 08:52 400 MG Albuterol (Ventolin Hfa Inhaler) 2 puffs Q4H PRN INH 10/09/16 14:45 11/08/16 14:44 Nicotine (Nicoderm Cq 7 Mg Patch) 1 patch QAM TD 10/10/16 09:00 11/09/16 08:59 10/25/16 08:50 1 PATCH Miscellaneous (Remove Nicoderm Patch) 1 ea HS N/A 10/09/16 21:00 11/08/16 20:59 10/24/16 20:31 1 EA Aspirin (Ecotrin Tab) 81 mg QAM PO 10/10/16 09:00 11/09/16 08:59 10/25/16 08:53 81 MG Ergocalciferol (Vitamin D Cap) 50,000 interunit Q7D PO 10/10/16 14:00 11/09/16 13:59 Future Hold 10/10/16 16:21 50,000 INTERUNIT Lorazepam (Ativan Inj) PRN Dosing -Active Protocol Q1H PRN IV 10/11/16 21:00 11/10/16 20:59 10/18/16 01:15 2 MG Al Hydroxide/Mg Hydroxide (Maalox Susp) 30 ml Q4H PRN PO 10/11/16 21:00 11/10/16 20:59 Miscellaneous Medication (No Nsaids) 1 ea UD N/A 10/11/16 21:00 11/10/16 20:59 Multivitamins (Multivitamin Tab) 1 tab DAILY PO 10/12/16 09:00 11/11/16 08:59 Future hold 10/25/16 08:52 1 TAB Pantoprazole Sodium (Protonix Tab) 40 mg QAM PO 10/13/16 09:00 11/12/16 08:59 10/25/16 08:49 40 MG Polyethylene (Miralax Powder Packet) 17 gm DAILY PRN PO 10/13/16 09:30 6/24/17 09:29 Metoprolol Tartrate (Lopressor Iv) 2.5 mg Q6 PRN IV 10/16/16 13:00 10/17/16 11:32 2.5 MG Ipratropium [place] (Atrovent 0.02% 0.5MG/2.5ML Neb) 0.5 mg TIDR INH 10/16/16 15:00 11/15/16 14:59 10/25/16 13:50 0.5 MG Levalbuterol (Xopenex 0.63 Mg/ 3 Ml Neb) 0.63 mg TIDR INH 10/16/16 15:00 11/15/16 14:59 10/25/16 13:51 0.63 MG Ipratropium [place] (Atrovent 0.02% 0.5MG/2.5ML Neb) 0.5 mg Q2H PRN INH 10/16/16 14:30 11/15/16 14:29 Levalbuterol (Xopenex 0.63 Mg/ 3 Ml Neb) 0.63 mg Q2H PRN INH 10/16/16 14:30 11/15/16 14:29 Thiamine HCl (Vitamin B-1 Tab) 100 mg QAM PO 10/19/16 09:00 11/18/16 08:59 10/25/16 08:53 100 MG Folic Acid (Folvite Tab) 400 mcg QAM PO 10/19/16 09:00 11/18/16 08:59 10/25/16 08:54 400 MCG Metoprolol Succinate (Toprol Xl Tab) 50 mg BID PO 10/19/16 09:00 11/18/16 08:59 10/25/16 08:54 50 MG Ferrous Sulfate (Feosol Tab) 325 mg DAILY@1200 PO 10/19/16 12:00 11/18/16 11:59 10/25/16 14:11 325 MG Potassium Chloride (Klor-Con Tab) 20 meq BID PO 10/20/16 09:00 11/19/16 08:59 10/25/16 08:51 20 MEQ Ioversol (Optiray 320) 125 ml UD PRN IV 10/25/16 09:30 10/29/16 09:29 Digoxin (Lanoxin Tab) 0.125 mg DAILY@16 PO 10/25/16 16:00 11/24/16 15:59 10/25/16 16:55 0.125 MG Torsemide (Demadex Tab) 5 mg QAM PO 10/26/16 09:00 11/25/16 08:59 Warfarin Sodium (Coumadin Tab) 10 mg DAILY@16 PO 10/25/16 16:00 11/24/16 15:59 10/25/16 16:02 10 MG Enoxaparin Sodium (Lovenox Inj) 70 mg Q12H SQ 10/25/16 12:30 11/24/16 12:29 10/25/16 16:00 70 MG
[2016-10-25] MEDS ORDERED: IPRATROPIUM BROMIDE NEB SOLN 0.02% 2.5 ML VIAL INH PRN (22:30)
[2016-10-25] MEDS ORDERED: LEVALBUTEROL 0.63MG/3 ML NEB INH PRN (22:30)
[2016-10-26] VITALS (7 sets, daily range): BP systolic 95–123; BP diastolic 46–88; PULSE 97–122; TEMP 36.7–37; O2SAT 94–97
[2016-10-26] MEDS: ENOXAPARIN 80 MG/0.8 ML SYR SQ SCH ×3 (00:52→23:40)
[2016-10-26] MEDS: METOPROLOL TARTRATE 1 MG/ML VIAL IV PRN (01:10)
[2016-10-26 06:48] LABS: HEMATOCRIT 32.7 % (37-47); MEAN CELL VOLUME 92.9 fL (80-100); MEAN CORPUSCULAR HEMOGLOBIN 32.7 pg (25-34); MEAN CORPUSCULAR HGB CONC 35.2 g/dl (32-36); MEAN PLATELET VOLUME 8.6 fL (7.4-10.4); PLATELET COUNT 505 K/uL (130-400); RED BLOOD COUNT 3.52 M/uL (4.2-5.4); WHITE BLOOD COUNT 26.16 K/uL (4.8-10.8)
[2016-10-26 06:55] LABS: INR 1.6 (0.9-1.1); PROTHROMBIN TIME (PATIENT) 17.5 SECONDS (9.0-12.0)
[2016-10-26 07:11] LABS: BASO % 0.2 %; BASO ABS # 0.04 K/uL (0-0.2); COMPLETE YES; IG% 0.6 %; LYMPH % 6.1 %; MONO % 6.5 %; NEUT % 86.6 %
[2016-10-26 07:24] LABS: BUN/CREATININE RATIO 19.5 (10-20); CREATININE 0.47 mg/dl (0.60-1.20)
[2016-10-26 07:26] LABS: ALB/GLOB RATIO 0.6 (0.9-2)
[2016-10-26 07:28] LABS: CALCIUM 9.4 mg/dl (8.5-10.1)
--- NOTE | 2016-10-26 07:34 | DIAGNOSTIC IMAGING REPORT ---
CHEST ONE VIEW PORTABLE CLINICAL HISTORY: f/u pulm edema, pleural effusions dyspnea COMPARISON STUDY: 10/24/2016 FINDINGS: Mild increase in volume of left pleural effusion. Right lung is clear. Heart is moderately enlarged. IMPRESSION: Mild increase in volume of a left pleural effusion. Electronically signed by: Baltazar Chisholm M.D. 10/26/2016 7:32 AM Dictated Date/Time: 10/26/2016 7:28 AM
[2016-10-26] MEDS: ASPIRIN 81 MG ECTAB PO SCH (07:38)
[2016-10-26] MEDS: METOPROLOL SUCC 50MG EXT REL TAB PO SCH ×2 (07:39→20:15)
[2016-10-26] MEDS: FoLIC ACID TAB 400 MCG TAB PO SCH (07:39)
[2016-10-26] MEDS: CITALOPRAM 20 MG TAB PO SCH (07:39)
[2016-10-26] MEDS: PANTOprazole SOD 40 MG TAB PO SCH (07:39)
[2016-10-26] MEDS: MULTIVITAMIN TAB PO SCH (07:39)
[2016-10-26] MEDS: TORSEMIDE 20 MG TAB PO SCH (07:40)
[2016-10-26] MEDS: POTASSIUM CHLORIDE 20 MEQ TABCR PO SCH ×2 (07:41→20:15)
[2016-10-26] MEDS: MAGNESIUM OXIDE 400 MG TAB PO SCH (07:41)
[2016-10-26] MEDS: NICOTINE 7 MG/24 HR TDSY TD SCH (07:42)
[2016-10-26] MEDS: THIAMINE HCL 100 MG TAB PO SCH (07:43)
[2016-10-26] MEDS ORDERED: FUROSEMIDE 20 MG TAB PO SCH (09:00)
--- NOTE | 2016-10-26 10:26 | Cardiology Follow-Up ---
Subjective General Date of Service: Oct 26, 2016. Chief Complaint: chest pain atrial fibrillatory rapid ventricular rate Pt evaluation today including: conversation w/ patient, physical exam, chart review, lab review, review of studies, review of inpatient medication list History of Present Illness Patient states she is feeling better this AM. Denies recurrent chest pain. SOB improving. No cough, orthopnea, PND or edema. Denies symptoms of palpitations at rest. Notes palpitations with ambulation. Allergies Coded Allergies: Sulfa Antibiotics (Verified Allergy, Mild, "SULFA" -- unknown rxn, 09/15/16 ) Social History Smoking Status: Current Every Day Smoker Hx Tobacco Use In Past Year?: Yes Hx Alcohol Use - Type And Amou: Yes ( 2 - 3 beers a day) Hx Substance Use - Type And Am: No Problem List Medical Problems: (1) Abnormal EKG Status: Acute (2) Alcohol use Status: Acute (3) Atrial fibrillation Status: Acute (4) Chest pain on respiration Status: Acute (5) Closed fracture of right proximal humerus Status: Acute (6) Elevated troponin Status: Acute (7) Head trauma Status: Acute (8) Hypomagnesemia Status: Acute (9) Hyponatremia Status: Acute (10) Mitral valve regurgitation Status: Acute (11) Supratherapeutic INR Status: Acute (12) Syncope Status: Acute (13) Tachycardia Status: Acute Review of Systems Respiratory: No cough, No sputum, No wheezing, No shortness of breath, No dyspnea at rest, No hemoptysis Cardiac: No chest pain, No orthopnea, No PND, No edema, No palpitations Physical Exam Vital Signs Last Vital Signs Documentation Date Time Temp Pulse Resp B/P (MAP) Pulse Ox O2 Delivery O2 Flow Rate FiO2 10/26/16 07:46 36.7 120 18 96/57 (70) 96 10/26/16 04:04 Room Air 10/18/16 16:00 10/18/16 08:00 95 Physical Exam Constitutional: Level of Distress: NAD, acutely ill, chronically ill Psychiatric: Mental Status: active & alert Orientation: to time, to place, to person Memory: recent memory normal Head: normocephalic Eyes: Pupils: PERRLA Neck: supple Lungs: Respiratory effort: no dyspnea Auscultation: deminished air movement, pertinent finding (decreased breath sounds bilaterally at the bases, L>R) Cardiovascular: Heart Auscultation: no murmurs, no rubs, no gallops, irregular rate rhythm Abdomen: Bowel Sounds: normal Inspection & Palpation: soft Extremities: no edema Neurologic: Gait & Station: pertinent finding (no focal neurologic deficits) Assessment and Plan Assessment and Plan Impression: 61-year-old female 1. Chronic persistent atrial fibrillation, severe biatrial enlargement, preserved LVEF, small circumferential pericardial effusion. 2. Diastolic heart failure with volume overload, enlarging left pleural effusion noted on xray this AM. 3. Recent mechanical fall, ORIF of right humerus 4. Alcohol addiction, status post treatment for alcohol withdrawal this admission 5. Borderline low blood pressure Plan: Rates mildly improved with addition of digoxin. Currently ranging 95-110 at rest. Continue metoprolol. Dose limited secondary to borderline hypotension. Diuretics adjusted, started on torsemide this AM for pleural effusions. Consider IV diuretic this afternoon pending BP response and urine outputs this AM on torsemide. Rate control strategy recommended given severe biatrial enlargement on echo. would be difficult to maintain NSR. Continue anticoagulation therapy, with increased Coumadin dose. INR goal 2-3. CARDIOLOGY ATTENDING ADDENDUM: The patient was seen and personally examined. Agree with Renetta Glynn PA-C's findings and plans as documented above. Elevated WBC count notes. No current infections symptoms. Left sided pleuritic chest pain noted 10/25 has resolved per patient. AF rate better controlled in the 90s. Laboratory Results Last 24 Hours Test 10/25/16 16:08 10/25/16 22:10 10/26/16 06:34 Total Creatine Kinase 24 U/L 21 U/L Creatine Kinase MB < 0.5 ng/ml < 0.5 ng/ml Creatine Kinase MB Ratio Troponin I 0.017 ng/ml 0.023 ng/ml White Blood Count 26.16 K/uL Red Blood Count 3.52 M/uL Hemoglobin 11.5 g/dL Hematocrit 32.7 % Mean Corpuscular Volume 92.9 fL Mean Corpuscular Hemoglobin 32.7 pg Mean Corpuscular Hemoglobin Concent 35.2 g/dl Platelet Count 505 K/uL Mean Platelet Volume 8.6 fL Neutrophils (%) (Auto) 86.6 % Lymphocytes (%) (Auto) 6.1 % Monocytes (%) (Auto) 6.5 % Eosinophils (%) (Auto) 0.0 % Basophils (%) (Auto) 0.2 % Neutrophils # (Auto) 22.66 K/uL Lymphocytes # (Auto) 1.60 K/uL Monocytes # (Auto) 1.70 K/uL Eosinophils # (Auto) 0.01 K/uL Basophils # (Auto) 0.04 K/uL RDW Standard Deviation 48.9 fL RDW Coefficient of Variation 14.4 % Immature Granulocyte % (Auto) 0.6 % Immature Granulocyte # (Auto) 0.15 K/uL Prothrombin Time 17.5 SECONDS Prothromb Time International Ratio 1.6 Sodium Level 130 mmol/L Potassium Level 4.0 mmol/L Chloride Level 97 mmol/L Carbon Dioxide Level 24 mmol/L Anion Gap 9.0 mmol/L Blood Urea Nitrogen 9 mg/dl Creatinine 0.47 mg/dl Est Creatinine Clear Calc Drug Dose 113.3 ml/min Estimated GFR () 121.8 Estimated GFR (Non- 105.1 BUN/Creatinine Ratio 19.5 Random Glucose 121 mg/dl Calcium Level 9.4 mg/dl Total Bilirubin 0.6 mg/dl Aspartate Amino Transf (AST/SGOT) 8 U/L Alanine Aminotransferase (ALT/SGPT) 13 U/L Alkaline Phosphatase 92 U/L Total Protein 7.3 gm/dl Albumin 2.7 gm/dl Globulin 4.6 gm/dl Albumin/Globulin Ratio 0.6
[2016-10-26] MEDS: FERROUS SULFATE 325 MG TAB PO SCH (12:22)
[2016-10-26] MEDS: ACETAMINOPHEN 325 MG TAB PO PRN ×3 (13:23→23:39)
--- NOTE | 2016-10-26 14:54 | Progress Note ---
Medicine Progress Note Date & Time of Visit: Oct 26, 2016 at 14:15. Subjective Pt was seen and examined Lying in bed very comfortable with no distress Pt said that she feels fine she said that she was walking in the hallway with no distress she denies any chest pain, palpitation, dizziness, fever, diarrhea, calf pain, urinary symptoms and SOB Objective Last 8 Hrs Date Time Temp Pulse Resp B/P (MAP) Pulse Ox O2 Delivery O2 Flow Rate FiO2 10/26/16 12:07 36.8 109 18 95/46 (62) 96 10/26/16 07:46 36.7 120 18 96/57 (70) 96 Physical Exam: General- No acute distress Head- atraumatic Eyes- PERRL, EOMI ENT- oropharynx clear Neck- supple, no JVD Lungs- decrease breath sound left lower base Heart- irregular rhythm Abdomen- normal bowel sounds, soft, nontender Extremities- no pretibial edema, no calf tenderness, Right shoulder incision with no signs of infection Neuro- alert, oriented x 3; PERRL, EOMI Skin- warm & dry Laboratory Results: Last 24 Hours Test 10/25/16 16:08 10/25/16 22:10 10/26/16 06:34 Total Creatine Kinase 24 U/L 21 U/L Creatine Kinase MB < 0.5 ng/ml < 0.5 ng/ml Creatine Kinase MB Ratio Troponin I 0.017 ng/ml 0.023 ng/ml White Blood Count 26.16 K/uL Red Blood Count 3.52 M/uL Hemoglobin 11.5 g/dL Hematocrit 32.7 % Mean Corpuscular Volume 92.9 fL Mean Corpuscular Hemoglobin 32.7 pg Mean Corpuscular Hemoglobin Concent 35.2 g/dl Platelet Count 505 K/uL Mean Platelet Volume 8.6 fL Neutrophils (%) (Auto) 86.6 % Lymphocytes (%) (Auto) 6.1 % Monocytes (%) (Auto) 6.5 % Eosinophils (%) (Auto) 0.0 % Basophils (%) (Auto) 0.2 % Neutrophils # (Auto) 22.66 K/uL Lymphocytes # (Auto) 1.60 K/uL Monocytes # (Auto) 1.70 K/uL Eosinophils # (Auto) 0.01 K/uL Basophils # (Auto) 0.04 K/uL RDW Standard Deviation 48.9 fL RDW Coefficient of Variation 14.4 % Immature Granulocyte % (Auto) 0.6 % Immature Granulocyte # (Auto) 0.15 K/uL Prothrombin Time 17.5 SECONDS Prothromb Time International Ratio 1.6 Sodium Level 130 mmol/L Potassium Level 4.0 mmol/L Chloride Level 97 mmol/L Carbon Dioxide Level 24 mmol/L Anion Gap 9.0 mmol/L Blood Urea Nitrogen 9 mg/dl Creatinine 0.47 mg/dl Est Creatinine Clear Calc Drug Dose 113.3 ml/min Estimated GFR () 121.8 Estimated GFR (Non- 105.1 BUN/Creatinine Ratio 19.5 Random Glucose 121 mg/dl Calcium Level 9.4 mg/dl Total Bilirubin 0.6 mg/dl Aspartate Amino Transf (AST/SGOT) 8 U/L Alanine Aminotransferase (ALT/SGPT) 13 U/L Alkaline Phosphatase 92 U/L Total Protein 7.3 gm/dl Albumin 2.7 gm/dl Globulin 4.6 gm/dl Albumin/Globulin Ratio 0.6 Assessment & Plan LEUKOCYTOSIS WBC 26,000 today. Afebrile, no signs of infection Repeat CXR this morning showed no infiltrate Completed 7 day course of antibiotics for suspected aspiration pneumonia. Will check UA, procalcitonin if becomes febrile, will check blood cx if develops any diarrhea, will send stool for Cdiff Monitor CBC CHEST PAIN CTA negative for PE. CM are negative Asymptomatic currently Resolved CHRONIC ATRIAL FIBRILLATION Rate is between 95 - 110 On Digoxin 125mcg / metoprolol 50mg BID unable to increase metoprolol due to low BP Continue Coumadin. INR today = 1.6. Continue lovenox 70mg BID until INR therapeutic. cardiology on board Continue monitor to Telemetry PULMONARY EDEMA Pulmonary edema noted on CT of chest 10/16/16. Echo on 10/10/16 demonstrated normal left ventricular wall motion and systolic function. Pulmonary edema most likely secondary to fluid overload / acute on chronic left ventricular diastolic heart failure. Furosemide changed to torsemide Continue monitor HYPERTENSION / HYPOTENSION Blood pressure in the low side. Unable to do blood pressures in right arm due to humerus fracture. Unable to perform BP's in left arm due to axillary node dissection. Losartan discontinued. Continue metoprolol succinate 50 mg twice a day with parameter Asymptomatic Continue monitor PLEURAL EFFUSIONS Probably secondary to fluid overload. CXR this morning showed Mild increase in volume of a left pleural effusion. Furosemide changed to torsemide repeat CXR in am POSSIBLE PNEUMONIA / ATELECTASIS Imaging by routine chest films and CT showed pulmonary densities, atelectasis versus pneumonia. NO infiltrate seen on today CXR Completed abx course Asymptomatic Stable HYPONATREMIA Serum sodium as low as 130. Sodium 10/23 was 135. Sodium today 130 Probable SIADH. Fluid restrict. Continue monitor HYPOKALEMIA Stable Continue monitor K HYPOMAGNESEMIA Stable Continue monitor electrolytes FRACTURE RIGHT HUMERUS S/P ORIF by Dr. Clayton 10/11. [place] removed 10/25/16. Continue OT. VITAMIN D DEFICIENCY / OSTEOPOROSIS Rx with calcium + vitamin D. 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 Alcohol intoxication likely contributing factor. PT / OT. ALCOHOL ABUSE / DELIRIUM TREMENS Experienced severe alcohol withdrawal symptoms. Initially received gabapentin and lorazepam per protocol. Subsequently received dexmedetomidine and chlordiazepoxide. Symptoms improved Continue thiamine, folate, multivitamins. Problems related to alcoholism discussed with patient and her . Will need ongoing counseling. stable TOBACCO ABUSE Tobacco cessation counseling. Continue nicotine patch DEPRESSION Continue citalopram. Stable VTE PROPHYLAXIS Continue SQ enoxaparin until INR therapeutic. Ambulate. DISPOSITION Will need inpatient rehabilitation. Case Management consulted. Family medicine follow-up with Dr. Min. Consultants: Ortho CCM Cardiology . Procedures: ORIF right proximal humerus by Dr. Clayton 10/11/16 Cardiac monitoring Intravenous fluids Intravenous medications Echocardiogram CT head CT upper extremity CTA chest Ultrasound liver PT OT . Current Inpatient Medications: Current Inpatient Medications Medications (Trade) Dose Ordered Sig/Ton Route Start Time Stop Time Status Last Admin Dose Admin Acetaminophen (Tylenol Tab) 650 mg Q4H PRN PO 10/09/16 13:00 11/08/16 12:59 10/26/16 13:23 650 MG Ondansetron HCl (Zofran Inj) 4 mg Q6H PRN IV 10/09/16 13:00 11/08/16 12:59 Nitroglycerin (Nitrostat Tab) 0.4 mg UD PRN SL 10/09/16 13:00 11/08/16 12:59 Citalopram Hydrobromide (celeXA TAB) 20 mg QAM PO 10/10/16 09:00 11/09/16 08:59 Future hold 10/26/16 07:39 20 MG Magnesium Oxide (Mag-Ox Tab) 400 mg QAM PO 10/10/16 09:00 11/09/16 08:59 Future hold 10/26/16 07:41 400 MG Albuterol (Ventolin Hfa Inhaler) 2 puffs Q4H PRN INH 10/09/16 14:45 11/08/16 14:44 Nicotine (Nicoderm Cq 7 Mg Patch) 1 patch QAM TD 10/10/16 09:00 11/09/16 08:59 10/26/16 07:42 1 PATCH Miscellaneous (Remove Nicoderm Patch) 1 ea HS N/A 10/09/16 21:00 11/08/16 20:59 10/25/16 19:44 1 EA Aspirin (Ecotrin Tab) 81 mg QAM PO 10/10/16 09:00 11/09/16 08:59 10/26/16 07:38 81 MG Ergocalciferol (Vitamin D Cap) 50,000 interunit Q7D PO 10/10/16 14:00 11/09/16 13:59 Future Hold 10/10/16 16:21 50,000 INTERUNIT Al Hydroxide/Mg Hydroxide (Maalox Susp) 30 ml Q4H PRN PO 10/11/16 21:00 11/10/16 20:59 Miscellaneous Medication (No Nsaids) 1 ea UD N/A 10/11/16 21:00 11/10/16 20:59 Multivitamins (Multivitamin Tab) 1 tab DAILY PO 10/12/16 09:00 11/11/16 08:59 Future hold 10/26/16 07:39 1 TAB Pantoprazole Sodium (Protonix Tab) 40 mg QAM PO 10/13/16 09:00 11/12/16 08:59 10/26/16 07:39 40 MG Polyethylene (Miralax Powder Packet) 17 gm DAILY PRN PO 10/13/16 09:30 11/12/16 09:29 Metoprolol Tartrate (Lopressor Iv) 2.5 mg Q6 PRN IV 10/16/16 13:00 10/26/16 01:10 2.5 MG Thiamine HCl (Vitamin B-1 Tab) 100 mg QAM PO 10/19/16 09:00 11/18/16 08:59 10/26/16 07:43 100 MG Folic Acid (Folvite Tab) 400 mcg QAM PO 10/19/16 09:00 11/18/16 08:59 10/26/16 07:39 400 MCG Metoprolol Succinate (Toprol Xl Tab) 50 mg BID PO 10/19/16 09:00 11/18/16 08:59 10/26/16 07:39 50 MG Ferrous Sulfate (Feosol Tab) 325 mg DAILY@1200 PO 10/19/16 12:00 11/18/16 11:59 10/26/16 12:22 325 MG Potassium Chloride (Klor-Con Tab) 20 meq BID PO 10/20/16 09:00 11/19/16 08:59 10/26/16 07:41 20 MEQ Ioversol (Optiray 320) 125 ml UD PRN IV 10/25/16 09:30 10/29/16 09:29 Digoxin (Lanoxin Tab) 0.125 mg DAILY@16 PO 10/25/16 16:00 11/24/16 15:59 10/25/16 16:55 0.125 MG Torsemide (Demadex Tab) 5 mg QAM PO 10/26/16 09:00 11/25/16 08:59 10/26/16 07:40 5 MG Warfarin Sodium (Coumadin Tab) 10 mg DAILY@16 PO 10/25/16 16:00 11/24/16 15:59 10/25/16 16:02 10 MG Enoxaparin Sodium (Lovenox Inj) 70 mg Q12H SQ 10/25/16 12:30 11/24/16 12:29 10/26/16 12:23 70 MG Ipratropium [place] (Atrovent 0.02% 0.5MG/2.5ML Neb) 0.5 mg Q4H PRN INH 10/25/16 22:30 11/15/16 14:29 Levalbuterol (Xopenex 0.63 Mg/ 3 Ml Neb) 0.63 mg Q4H PRN INH 10/25/16 22:30 11/15/16 14:29
[2016-10-26] MEDS: WARFARIN SOD 5 MG TAB PO SCH (16:01)
[2016-10-26] MEDS: DIGOXIN 0.125 MG TAB PO SCH (16:02)
[2016-10-26 18:02] LABS: URINE APPEARANCE CLOUDY (CLEAR); URINE BILIRUBIN NEG (NEG); URINE COLOR YELLOW; URINE NITRITE NEG (NEG); URINE PH 6.5 (4.5-7.5); UROBILINOGEN NEG (NEG); ZZUR CULT IF INDIC CLEAN CATCH NO
[2016-10-26 18:13] LABS: MANUAL MICROSCOPIC REQUIRED? NO; REVIEW REQ? NO
[2016-10-26] MEDS ORDERED: KETOROLAC TROMETHAMINE 30 MG/ML VIAL IV STA (20:28)
[2016-10-26] MEDS ORDERED: TRAMADOL HCL 50 MG TAB PO STA (20:32)
[2016-10-27 04:03] VITALS: BP 114/76; PULSE 101; TEMP 36.4; O2SAT 94
[2016-10-27 07:10] LABS: HEMATOCRIT 34.6 % (37-47); MEAN CELL VOLUME 95.3 fL (80-100); MEAN CORPUSCULAR HEMOGLOBIN 31.4 pg (25-34); MEAN CORPUSCULAR HGB CONC 32.9 g/dl (32-36); MEAN PLATELET VOLUME 9.4 fL (7.4-10.4); PLATELET COUNT 548 K/uL (130-400); RED BLOOD COUNT 3.63 M/uL (4.2-5.4); WHITE BLOOD COUNT 18.59 K/uL (4.8-10.8)
--- NOTE | 2016-10-27 07:10 | DIAGNOSTIC IMAGING REPORT ---
CHEST ONE VIEW PORTABLE CLINICAL HISTORY: Left pleural effusion COMPARISON STUDY: 10/26/2016 FINDINGS: The heart is enlarged. There is a persistent left pleural effusion with associated left lower lobe atelectasis/consolidation. Right lung is clear. There are postsurgical changes involving the proximal right humerus.[ IMPRESSION: Persistent left pleural effusion with associated left lower lobe atelectasis/consolidation Electronically signed by: Tyree Vidal M.D. 10/27/2016 7:09 AM Dictated Date/Time: 10/27/2016 7:08 AM
[2016-10-27 07:52] LABS: BUN/CREATININE RATIO 18.1 (10-20); CALCIUM 8.9 mg/dl (8.5-10.1); CREATININE 0.49 mg/dl (0.60-1.20); MAGNESIUM 2.1 mg/dl (1.8-2.4); POTASSIUM 4.7 mmol/L (3.5-5.1)
[2016-10-27 07:53] VITALS: BP 134/69; PULSE 72; TEMP 36.5; O2SAT 96
[2016-10-27] MEDS: ACETAMINOPHEN 325 MG TAB PO PRN ×3 (08:02→19:34)
[2016-10-27] MEDS: MAGNESIUM OXIDE 400 MG TAB PO SCH (08:02)
[2016-10-27] MEDS: TORSEMIDE 20 MG TAB PO SCH (08:02)
[2016-10-27] MEDS: PANTOprazole SOD 40 MG TAB PO SCH (08:03)
[2016-10-27] MEDS: MULTIVITAMIN TAB PO SCH (08:03)
[2016-10-27] MEDS: POTASSIUM CHLORIDE 20 MEQ TABCR PO SCH ×2 (08:03→19:35)
[2016-10-27] MEDS: FoLIC ACID TAB 400 MCG TAB PO SCH (08:03)
[2016-10-27] MEDS: THIAMINE HCL 100 MG TAB PO SCH (08:04)
[2016-10-27] MEDS: METOPROLOL SUCC 50MG EXT REL TAB PO SCH ×2 (08:04→19:36)
[2016-10-27] MEDS: ASPIRIN 81 MG ECTAB PO SCH (08:05)
[2016-10-27] MEDS: NICOTINE 7 MG/24 HR TDSY TD SCH (08:05)
[2016-10-27] MEDS: CITALOPRAM 20 MG TAB PO SCH (08:05)
[2016-10-27 08:43] LABS: INR 1.8 (0.9-1.1); PROTHROMBIN TIME (PATIENT) 19.2 SECONDS (9.0-12.0)
--- NOTE | 2016-10-27 10:34 | Cardiology Follow-Up ---
Subjective General Date of Service: Oct 27, 2016. Chief Complaint: chest pain atrial fibrillatory rapid ventricular rate Pt evaluation today including: conversation w/ patient, physical exam, chart review, lab review, review of studies, review of inpatient medication list History of Present Illness Patient feeling well this AM. Denies symptoms of SOB, cough, orthopnea. No chest pain. No sense of palpitations. Telemetry reviewed - Afib, variable ventricular rates. 90-110 at rest; 120's with exertion. Allergies Coded Allergies: Sulfa Antibiotics (Verified Allergy, Mild, "SULFA" -- unknown rxn, 09/15/16 ) Social History Smoking Status: Current Every Day Smoker Hx Tobacco Use In Past Year?: Yes Hx Alcohol Use - Type And Amou: Yes ( 2 - 3 beers a day) Hx Substance Use - Type And Am: No Problem List Medical Problems: (1) Abnormal EKG Status: Acute (2) Alcohol use Status: Acute (3) Atrial fibrillation Status: Acute (4) Chest pain on respiration Status: Acute (5) Closed fracture of right proximal humerus Status: Acute (6) Elevated troponin Status: Acute (7) Head trauma Status: Acute (8) Hypomagnesemia Status: Acute (9) Hyponatremia Status: Acute (10) Mitral valve regurgitation Status: Acute (11) Supratherapeutic INR Status: Acute (12) Syncope Status: Acute (13) Tachycardia Status: Acute Review of Systems Respiratory: No cough, No sputum, No wheezing, No shortness of breath, No dyspnea on exertion, No dyspnea at rest, No hemoptysis Cardiac: No chest pain, No orthopnea, No PND, No edema, No palpitations Physical Exam Vital Signs Last Vital Signs Documentation Date Time Temp Pulse Resp B/P (MAP) Pulse Ox O2 Delivery O2 Flow Rate FiO2 10/27/16 08:00 Room Air 10/27/16 07:53 36.5 72 18 134/69 (90) 96 10/18/16 16:00 10/18/16 08:00 95 Physical Exam Constitutional: Level of Distress: NAD, acutely ill, chronically ill Psychiatric: Mental Status: active & alert Orientation: to time, to place, to person Memory: recent memory normal Head: normocephalic Eyes: Pupils: PERRLA Neck: supple Lungs: Respiratory effort: no dyspnea Auscultation: deminished air movement, pertinent finding (decreased breath sounds bilaterally at the bases, L>R) Cardiovascular: Heart Auscultation: no murmurs, no rubs, no gallops, irregular rate rhythm Abdomen: Bowel Sounds: normal Inspection & Palpation: soft Extremities: no edema Neurologic: Gait & Station: pertinent finding (no focal neurologic deficits) Assessment and Plan Assessment and Plan Impression: 61-year-old female 1. Chronic persistent atrial fibrillation, severe biatrial enlargement, preserved LVEF, small circumferential pericardial effusion. 2. Diastolic heart failure 3. Large persistent left pleural effusion - history of breast CA s/p chemo and radiation tx in 2016. 4. Recent mechanical fall, ORIF of right humerus 5. Alcohol addiction, status post treatment for alcohol withdrawal this admission 6. Borderline low blood pressure Plan: Rates mildly improved with addition of digoxin. Currently ranging 95-110 at rest. Continue metoprolo and digoxin. Beta radha Dose limited secondary to borderline hypotension. Rate control strategy recommended given severe biatrial enlargement on echo. would be difficult to maintain NSR. Diuretics adjusted, started on torsemide for persistent pleural effusion. No significant improvement in effusion despite diuresis. She has no other CHF symptoms. Consider thoracentesis for pleural fluid analysis given history of Breast CA. Hold Lovenox and coumadin. Consult pulm. INR goal 2-3. Case discussed with Dr. Valdez. Will follow as hospital course progresses. CARDIOLOGY ATTENDING ADDENDUM: The patient was seen and personally examined. Agree with Renetta Glynn PA-C's findings and plans as documented above with additions as noted below. Subjective: Patient feels improved. She denies chest discomfort. She is eager for discharge. Exam: Irregular rhythm, no murmurs, no lower extremity edema, decreased breath sounds at left base Data: Chest x-ray reveals consistent left pleural effusion. Impression: Continue metoprolol and digoxin for rate control of atrial fibrillation. Left pleural effusion may be due to diastolic dysfunction, hypoalbuminemia is noted, also patient has history of breast carcinoma. Consult pulmonary for further evaluation of left pleural effusion. Her INR is close to being therapeutic at 1.8. Will hold her Lovenox bridge pending potential need for thoracentesis. Laboratory Results Last 24 Hours Test 10/26/16 16:38 10/27/16 05:54 10/27/16 08:27 Urine Color YELLOW Urine Appearance CLOUDY Urine pH 6.5 Urine Specific [place] 1.010 Urine Protein NEG Urine Glucose (UA) NEG Urine Ketones NEG Urine Occult Blood NEG Urine Nitrite NEG Urine Bilirubin NEG Urine Urobilinogen NEG Urine Leukocyte Esterase NEG Urine WBC (Auto) 0 /hpf Urine RBC (Auto) 0-4 /hpf Urine Hyaline Casts (Auto) 0 /lpf Urine Epithelial Cells (Auto) 10-20 /lpf Urine Bacteria (Auto) NEG White Blood Count 18.59 K/uL Red Blood Count 3.63 M/uL Hemoglobin 11.4 g/dL Hematocrit 34.6 % Mean Corpuscular Volume 95.3 fL Mean Corpuscular Hemoglobin 31.4 pg Mean Corpuscular Hemoglobin Concent 32.9 g/dl RDW Standard Deviation 51.0 fL RDW Coefficient of Variation 14.6 % Platelet Count 548 K/uL Mean Platelet Volume 9.4 fL Sodium Level 131 mmol/L Potassium Level 4.7 mmol/L Chloride Level 97 mmol/L Carbon Dioxide Level 25 mmol/L Anion Gap 9.0 mmol/L Blood Urea Nitrogen 9 mg/dl Creatinine 0.49 mg/dl Est Creatinine Clear Calc Drug Dose 106.2 ml/min Estimated GFR () 120.2 Estimated GFR (Non- 103.7 BUN/Creatinine Ratio 18.1 Random Glucose 102 mg/dl Calcium Level 8.9 mg/dl Magnesium Level 2.1 mg/dl Procalcitonin 0.23 ng/ml Prothrombin Time 19.2 SECONDS Prothromb Time International Ratio 1.8
[2016-10-27 12:15] VITALS: BP 96/56; PULSE 78; TEMP 36.6; O2SAT 98
[2016-10-27] MEDS: FERROUS SULFATE 325 MG TAB PO SCH (12:56)
[2016-10-27 15:16] VITALS: BP 93/67; PULSE 102; TEMP 36.7; O2SAT 95
[2016-10-27] MEDS: DIGOXIN 0.125 MG TAB PO SCH (15:32)
--- NOTE | 2016-10-27 17:11 | Pulmonary Consultation ---
History General Date of Service: Oct 27, 2016. Stated Complaint: Chief complaint: Right-sided pleural effusion HPI The patient is a 61 year old female who presents to [facility] with complaints of Afib, Closed Fracture Of Right Proximal Humerus,. The patient's primary care provider is Julius Min M.D.. 61-year-old female admitted 10/09/2016 to [facility] with elevated troponin, atrial fibrillation and RVR, right humerus fracture, pulmonary hypertension, hyponatremia with multiple recent falls and failure to thrive and alcohol withdrawal syndrome. Patient has a significant past medical history for poorly-controlled atrial fibrillation along with invasive carcinoma the breast previously treated with surgical intervention, chemotherapy and radiation oncology. Patient has been treated for her alcohol withdrawal symptoms/refeeding syndrome, right humeral fraction with ORIF by since about 10/11/2016, 7 day course of antibiotics for possible aspiration pneumonia with notably difficult to control atrial fibrillation. This time the patient has had progressive left-sided pleural effusion now with associated leukocytosis and mild dyspnea on exertion. The patient denies: Fever, chills, pleurisy, cardiac chest pain Workup: Echocardiogram: EF 60-65%, moderate to severe mitral calcification, focal calcification of the anterior mitral valve leaflet, mild mitral regurgitation, moderate tricuspid regurgitation and severe bilateral atrial enlargement. Microbiology During catheterization 10/08/2016: No growth Blood cultures 2 10/08/2016: No growth MRSA nasal swab: Negative for MRSA DNA probe Radiology CXR: 10/09/2016, 10/09/11 for 2017, 10/19/2016, , 10/24/2016, 10/26/2016, 2016 CT thorax/CTA: 10/25/2016 CT thorax/CTA: 10/16/2016 EKG 11/24/2016: Atrial fibrillation with RVR rate noted to be 129 Historian: patient, family, EMS Review of Systems Constitutional: reports: weakness Eyes: reports: no symptoms ENT: reports: no symptoms Cardiovascular: reports: as stated in HPI Respiratory: reports: as stated in HPI Gastrointestinal: reports: no symptoms Genitourinary - Female: reports: no symptoms Musculoskeletal: reports: other (right shoulder and arm pain) Neurologic: reports: no symptoms Psychiatric: reports: no symptoms Endocrine: no symptoms Hematologic / Lymphatic: no symptoms Allergic / Immunologic: no symptoms Past Medical History Past Medical History: #1 atrial fibrillation #2colonic polyps #3 invasive breast carcinoma grade 2: HER-2/talita negative Status post lumpectomy and sentinel lymph node biopsy 04/01/2015 Chemotherapy Adriamycin/Cytoxan completed 10/16/2015 XRT therapy completed a 2016 total cGy 6240 #4 depression #5 hypertension #6 tobacco use disorder Past Surgical History: #1 lumpectomy #2 section #3 sentinel lymph node biopsy #4 partial mastectomy #5 Port-A-Cath placement #6 tubal ligation Family History Diabetes mellitus FATHER FH: atrial fibrillation MOTHER FH: breast cancer AUNT SISTER Heart disease Hypertension Pacemaker MOTHER Social History Hx Tobacco Use In Past Year?: Yes Smoking Status: Current Every Day Smoker Marital status: Housing status: lives with family Occupational Status: retired Immunizations History of Influenza Vaccine: Yes Influenza Vaccine Date: Mar 30, 2016 History of Tetanus Vaccine?: Yes Tetanus Immunization Date: Jan 30, 2007 History of Pneumococcal: Yes Pneumococcal Date: Dec 27, 2011 History of MDRO History of MDRO: No Allergies Coded Allergies: Sulfa Antibiotics (Verified Allergy, Mild, "SULFA" -- unknown rxn, 09/15/16 ) Current Medications Reported Home Medications Medications Dose Route/Sig Max Daily Dose Days Date Category Dose Instructions Metoprolol Tartrate 50 Mg Tab 100 Mg PO BID 10/09/16 Reported Lasix (Furosemide) 40 Mg Tab 20 Mg PO UD 10/09/16 Reported MWF Coumadin (Warfarin Sodium) 5 Mg Tab 5 Mg PO 5XWK 10/09/16 Reported everyday but monday and monday Coumadin (Warfarin Sod) 2.5 Mg Tab 2.5 Mg PO 2XWK 10/09/16 Reported monday Cozaar (Losartan Potassium) 50 Mg Tab 50 Mg PO DAILY 10/09/16 Reported Ativan (Lorazepam) 1 Mg Tab 1 Mg PO Q8H PRN 09/15/16 Reported Mag-Ox (Magnesium Oxide) 400 Mg Tab 400 Mg PO QAM 09/15/16 Reported Proair Respiclick (Albuterol Sulfate) 108 Mcg/Act Aer 2 Puffs INH Q4 PRN 08/15/16 Reported Vitamin B-1 (Thiamine HCl) 50 Mg Tab 100 Mg PO QAM 05/13/15 Reported Celexa (Citalopram Hydrobromide) 20 Mg Tab 20 Mg PO QAM 04/27/15 Reported Physical Physical Exam Vital Signs: Date Time Temp Pulse Resp B/P (MAP) Pulse Ox O2 Delivery O2 Flow Rate FiO2 10/27/16 16:00 Room Air 10/27/16 15:32 94 10/27/16 15:16 36.7 102 20 93/67 (76) 95 Room Air 10/27/16 12:15 36.6 78 16 96/56 (69) 98 10/27/16 12:00 Room Air 10/27/16 08:00 Room Air 10/27/16 07:53 36.5 72 18 134/69 (90) 96 10/27/16 04:05 Room Air 10/27/16 04:03 36.4 101 16 114/76 (89) 94 Room Air 10/27/16 00:00 Room Air 10/26/16 23:42 36.8 105 16 96/68 (77) 94 Room Air 10/26/16 20:15 Room Air 10/26/16 19:08 36.8 105 17 107/66 (80) 94 Room Air General Appearance: NO APPARENT DISTRESS Head: NORMOCEPHALIC, ATRAUMATIC Eyes: PERRLA, NO DISCHARGE, EOMI, SCLERAE NORMAL, CONJUNCTIVAE NORMAL ENT: NORMAL EAR EXAM, NORMAL NASAL EXAM, NORMAL MOUTH EXAM, NORMAL THROAT EXAM , NORMAL DENTAL EXAM Neck: NORMAL RANGE OF MOTION, NO TENDERNESS, TRACHEA MIDLINE, NO STRIDOR, SUPPLE Respiratory: other (decreased breath sounds left base care home up to hemithorax with dullness percussion/thoracic ultrasound shows B-lines bilaterally at the apices as well as large left-sided pleural effusion) Genitourinary - Female: EXTERNAL GENITALIA NORMAL Back: NORMAL INSPECTION, NO MIDLINE TENDERNESS, NO CVA TENDERNESS, NO PARAVERTEBRAL TTP Upper Extremities: NO EDEMA, NO DEFORMITY, NORMAL ROM Lower Extremities: NO EDEMA, NO DEFORMITY, NORMAL ROM, other (right upper extremity currently bandaged but showing proper capillary refill on all 5 distal extremities) Pulses: carotid (R) (1+), carotid (L) (1+), posterior tibial (R), posterior tibial (L) (2+) Neuro: ALERT, ORIENTED x 3, NORMAL MOTOR EXAM, NORMAL SENSATION, NORMAL CEREBELLAR EXAM Reflexes: bicpes (L) (2+), patellar (R) (2+), patellar (L) (2+) Babinski Testing: right (downgoing), left (downgoing) Psychiatric: NORMAL AFFECT, NO SUICIDAL IDEATION Diagnostics Labs Results Past 24 Hours Test 10/27/16 05:54 10/27/16 08:27 Range/Units White Blood Count 18.59 4.8-10.8 K/uL Red Blood Count 3.63 4.2-5.4 M/uL Hemoglobin 11.4 12.0-16.0 g/dL Hematocrit 34.6 37-47 % Mean Corpuscular Volume 95.3 80-100 fL Mean Corpuscular Hemoglobin 31.4 25-34 pg Mean Corpuscular Hemoglobin Concent 32.9 32-36 g/dl RDW Standard Deviation 51.0 36.4-46.3 fL RDW Coefficient of Variation 14.6 11.5-14.5 % Platelet Count 548 130-400 K/uL Mean Platelet Volume 9.4 7.4-10.4 fL Sodium Level 131 136-145 mmol/L Potassium Level 4.7 3.5-5.1 mmol/L Chloride Level 97 98-107 mmol/L Carbon Dioxide Level 25 21-32 mmol/L Anion Gap 9.0 3-11 mmol/L Blood Urea Nitrogen 9 7-18 mg/dl Creatinine 0.49 0.60-1.20 mg/dl Est Creatinine Clear Calc Drug Dose 106.2 ml/min Estimated GFR () 120.2 Estimated GFR (Non- 103.7 BUN/Creatinine Ratio 18.1 10-20 Random Glucose 102 70-99 mg/dl Calcium Level 8.9 8.5-10.1 mg/dl Magnesium Level 2.1 1.8-2.4 mg/dl Procalcitonin 0.23 0-0.5 ng/ml Prothrombin Time 19.2 9.0-12.0 SECONDS Prothromb Time International Ratio 1.8 0.9-1.1 Diagnostic Radiology CXR: 10/09/2016, 10/09/11 for 2017, 10/19/2016, , 10/24/2016, 10/26/2016, 2016 CT thorax/CTA: 10/25/2016 CT thorax/CTA: 10/16/2016 EKG EKG 11/24/2016: Atrial fibrillation with RVR rate noted to be 129 Impression Assessment and Plan 61-year-old female with complicated medical course ranging from right humerus fracture, alcohol withdrawal, atrial fibrillation with RVR and new onset large left-sided pleural effusion: #1 left-sided pleural effusion: Patient does have a large left-sided pleural effusion seen on both chest x-ray, thoracic CT and ultrasound evaluation. At this time the etiology is unknown possibly secondary to SIRS with global edema, infection with associated leukocytosis, congestive heart failure or possibly even recurrence of breast carcinoma. I spoken to the patient and the at length and we have decided to move forward with left-sided thoracentesis.
--- NOTE | 2016-10-27 17:13 | Procedure Note ---
Procedure Note Date of Service Oct 27, 2016. Procedure Note Procedures: Left sided Thoracentesis Consent: obtained via the patient and placed into the chart Pre-Procedural Dx: Left-sided pleural effusion Post-Procedural Dx: Left-sided pleural effusion Analgesia: 8cc of 1% Liquid Lidocaine Procedure: The patient was placed in an upright position and thoracic US was used to select a spot for the procedure. A spot along the posterior axillary line was marked in the 7th intercostal space. The patient was then draped and prepped in a sterile fashion. A modified Seldinger technique was then used for catheter placement. Flowing this approximately 600cc of dark yellow pleural fluid was removed. The patient was then cleaned and placed at a 60 degree angle in the bed were the US was used to evaluate for possible pneumothorax. The US showed good lung sliding and [place] signs. EBL: None Complications: None with Chest x-ray pending.
[2016-10-27 17:37] LABS: PLEURAL FLUID TOTAL PROTEIN 4.8 g/dl
--- NOTE | 2016-10-27 17:53 | DIAGNOSTIC IMAGING REPORT ---
CHEST ONE VIEW PORTABLE CLINICAL HISTORY: S/P Thoracentesis COMPARISON STUDY: 10/27/2016 FINDINGS: Interval decrease in volume of a left effusion. No postprocedural pneumothorax. The study is otherwise unchanged. IMPRESSION: No significant postprocedural pneumothorax. Considerable improvement in aeration left lung base. Electronically signed by: Baltazar Chisholm M.D. 10/27/2016 5:52 PM Dictated Date/Time: 10/27/2016 5:51 PM
--- NOTE | 2016-10-27 18:52 | Progress Note ---
Medicine Progress Note Date & Time of Visit: Oct 27, 2016 at 18:40. Subjective Pt was seen and examined Sitting in chair with no distress Pt just came back from getting the thoracentesis Pt said that she feels much better she said that her breathing seems to improve she said that she can feel her lung extend more now in the left side denies any chest pain, palpitation, dizziness and SOB Objective Last 8 Hrs Date Time Temp Pulse Resp B/P (MAP) Pulse Ox O2 Delivery O2 Flow Rate FiO2 10/27/16 16:00 Room Air 10/27/16 15:32 94 10/27/16 15:16 36.7 102 20 93/67 (76) 95 Room Air 10/27/16 12:15 36.6 78 16 96/56 (69) 98 10/27/16 12:00 Room Air Physical Exam: General- No acute distress Head- atraumatic Eyes- PERRL, EOMI ENT- oropharynx clear Neck- supple, no JVD Lungs- No wheezing, no crackles Heart- irregular rhythm Abdomen- normal bowel sounds, soft, nontender Extremities- no pretibial edema, no calf tenderness, Right shoulder incision with no signs of infection Neuro- alert, oriented x 3; PERRL, EOMI Skin- warm & dry Laboratory Results: Last 24 Hours Test 10/27/16 00:00 10/27/16 05:54 10/27/16 08:27 10/27/16 16:40 White Blood Count 18.59 K/uL Red Blood Count 3.63 M/uL Hemoglobin 11.4 g/dL Hematocrit 34.6 % Mean Corpuscular Volume 95.3 fL Mean Corpuscular Hemoglobin 31.4 pg Mean Corpuscular Hemoglobin Concent 32.9 g/dl RDW Standard Deviation 51.0 fL RDW Coefficient of Variation 14.6 % Platelet Count 548 K/uL Mean Platelet Volume 9.4 fL Sodium Level 131 mmol/L Potassium Level 4.7 mmol/L Chloride Level 97 mmol/L Carbon Dioxide Level 25 mmol/L Anion Gap 9.0 mmol/L Blood Urea Nitrogen 9 mg/dl Creatinine 0.49 mg/dl Est Creatinine Clear Calc Drug Dose 106.2 ml/min Estimated GFR () 120.2 Estimated GFR (Non- 103.7 BUN/Creatinine Ratio 18.1 Random Glucose 102 mg/dl Calcium Level 8.9 mg/dl Magnesium Level 2.1 mg/dl Procalcitonin 0.23 ng/ml Prothrombin Time 19.2 SECONDS Prothromb Time International Ratio 1.8 Pleural Fluid Total Protein 4.8 g/dl Pleural Fluid LDH 98 IU Pleural Fluid Glucose 115 mg/dl Pleural Fluid Amylase 40 U/L Date/Time Source Procedure Growth Status 10/27/16 16:40 Pleural Fluid (Thoracentesis) Left Acid Fast Stain Pending Received 10/27/16 16:40 Pleural Fluid (Thoracentesis) Left Mycobacterial Culture Pending Received 10/27/16 16:40 Pleural Fluid (Thoracentesis) Left Gram Stain - Preliminary Resulted 10/27/16 16:40 Pleural Fluid (Thoracentesis) Left Bacterial Culture Pending Resulted Assessment & Plan LEUKOCYTOSIS WBC improved from 26K to 18K today Afebrile, no signs of infection CXR showed no infiltrate Completed 7 day course of antibiotics for suspected aspiration pneumonia. UA negative and procalcitonin normal if becomes febrile, will check blood cx if develops any diarrhea, will send stool for Cdiff Continue monitor CBC CHEST PAIN CTA negative for PE. CM are negative Asymptomatic currently Resolved CHRONIC ATRIAL FIBRILLATION Rate is between 95 - 110 On Digoxin 125mcg / metoprolol 50mg BID unable to increase metoprolol due to low BP Continue Coumadin. INR today = 1.8 Lovenox d/c for the thoracentesis cardiology on board Continue monitor to Telemetry PULMONARY EDEMA Pulmonary edema noted on CT of chest 10/16/16. Echo on 10/10/16 demonstrated normal left ventricular wall motion and systolic function. Pulmonary edema most likely secondary to fluid overload / acute on chronic left ventricular diastolic heart failure. Furosemide changed to torsemide Continue torsemide Continue monitor HYPERTENSION / HYPOTENSION Blood pressure in the low side. Unable to do blood pressures in right arm due to humerus fracture. Unable to perform BP's in left arm due to axillary node dissection. Losartan discontinued. Continue metoprolol succinate 50 mg twice a day with parameter Asymptomatic Continue monitor PLEURAL EFFUSIONS Probably secondary to fluid overload. CXR large left pleural effusion. ' Pulmonary on board and thoracentesis done where 600 ml of fluid removed Furosemide changed to torsemide Repeat CXR post thoracentesis showed no significant postprocedural pneumothorax. Left pleural effusion decrease in volume pleural fluid Cytology and culture pending POSSIBLE PNEUMONIA / ATELECTASIS Imaging by routine chest films and CT showed pulmonary densities, atelectasis versus pneumonia. NO infiltrate seen on today CXR Completed abx course Asymptomatic Stable HYPONATREMIA Sodium 10/23 was 135. Sodium today 130 Probable SIADH. Fluid restrict. Continue monitor HYPOKALEMIA Stable Continue monitor K HYPOMAGNESEMIA Stable Continue monitor electrolytes FRACTURE RIGHT HUMERUS S/P ORIF by Dr. Clayton 10/11. Porter removed 10/25/16. Continue OT. VITAMIN D DEFICIENCY / OSTEOPOROSIS Rx with calcium + vitamin D. 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 Alcohol intoxication likely contributing factor. PT / OT. ALCOHOL ABUSE / DELIRIUM TREMENS Experienced severe alcohol withdrawal symptoms. Initially received gabapentin and lorazepam per protocol. Subsequently received dexmedetomidine and chlordiazepoxide. Symptoms improved Continue thiamine, folate, multivitamins. Problems related to alcoholism discussed with patient and her . Will need ongoing counseling. stable TOBACCO ABUSE Tobacco cessation counseling. Continue nicotine patch DEPRESSION Continue citalopram. Stable VTE PROPHYLAXIS Continue SQ enoxaparin until INR therapeutic. Ambulate. DISPOSITION Will need inpatient rehabilitation. Case Management consulted. Family medicine follow-up with Dr. Min. Consultants: Ortho CCM Cardiology . Procedures: ORIF right proximal humerus by Dr. Clayton 10/11/16 Cardiac monitoring Intravenous fluids Intravenous medications Echocardiogram CT head CT upper extremity CTA chest Ultrasound liver PT OT . Current Inpatient Medications: Current Inpatient Medications Medications (Trade) Dose Ordered Sig/Otn Route Start Time Stop Time Status Last Admin Dose Admin Acetaminophen (Tylenol Tab) 650 mg Q4H PRN PO 10/09/16 13:00 11/08/16 12:59 10/27/16 15:32 650 MG Ondansetron HCl (Zofran Inj) 4 mg Q6H PRN IV 10/09/16 13:00 11/08/16 12:59 Nitroglycerin (Nitrostat Tab) 0.4 mg UD PRN SL 10/09/16 13:00 11/08/16 12:59 Citalopram Hydrobromide (celeXA TAB) 20 mg QAM PO 10/10/16 09:00 11/09/16 08:59 Future hold 10/27/16 08:05 20 MG Magnesium Oxide (Mag-Ox Tab) 400 mg QAM PO 10/10/16 09:00 11/09/16 08:59 Future hold 10/27/16 08:02 400 MG Albuterol (Ventolin Hfa Inhaler) 2 puffs Q4H PRN INH 10/09/16 14:45 11/08/16 14:44 Nicotine (Nicoderm Cq 7 Mg Patch) 1 patch QAM TD 10/10/16 09:00 11/09/16 08:59 10/27/16 08:05 1 PATCH Miscellaneous (Remove Nicoderm Patch) 1 ea HS N/A 10/09/16 21:00 11/08/16 20:59 10/26/16 20:15 1 EA Aspirin (Ecotrin Tab) 81 mg QAM PO 10/10/16 09:00 11/09/16 08:59 10/27/16 08:05 81 MG Ergocalciferol (Vitamin D Cap) 50,000 interunit Q7D PO 10/10/16 14:00 11/09/16 13:59 Future Hold 10/10/16 16:21 50,000 INTERUNIT Al Hydroxide/Mg Hydroxide (Maalox Susp) 30 ml Q4H PRN PO 10/11/16 21:00 11/10/16 20:59 Miscellaneous Medication (No Nsaids) 1 ea UD N/A 10/11/16 21:00 11/10/16 20:59 Multivitamins (Multivitamin Tab) 1 tab DAILY PO 10/12/16 09:00 11/11/16 08:59 Future hold 10/27/16 08:03 1 TAB Pantoprazole Sodium (Protonix Tab) 40 mg QAM PO 10/13/16 09:00 11/12/16 08:59 10/27/16 08:03 40 MG Polyethylene (Miralax Powder Packet) 17 gm DAILY PRN PO 10/13/16 09:30 11/12/16 09:29 Metoprolol Tartrate (Lopressor Iv) 2.5 mg Q6 PRN IV 10/16/16 13:00 10/26/16 01:10 2.5 MG Thiamine HCl (Vitamin B-1 Tab) 100 mg QAM PO 10/19/16 09:00 11/18/16 08:59 10/27/16 08:04 100 MG Folic Acid (Folvite Tab) 400 mcg QAM PO 10/19/16 09:00 11/18/16 08:59 10/27/16 08:03 400 MCG Metoprolol Succinate (Toprol Xl Tab) 50 mg BID PO 10/19/16 09:00 11/18/16 08:59 10/27/16 08:04 50 MG Ferrous Sulfate (Feosol Tab) 325 mg DAILY@1200 PO 10/19/16 12:00 11/18/16 11:59 10/27/16 12:56 325 MG Potassium Chloride (Klor-Con Tab) 20 meq BID PO 10/20/16 09:00 11/19/16 08:59 10/27/16 08:03 20 MEQ Ioversol (Optiray 320) 125 ml UD PRN IV 10/25/16 09:30 10/29/16 09:29 Digoxin (Lanoxin Tab) 0.125 mg DAILY@16 PO 10/25/16 16:00 11/24/16 15:59 10/27/16 15:32 0.125 MG Torsemide (Demadex Tab) 5 mg QAM PO 10/26/16 09:00 11/25/16 08:59 10/27/16 08:02 5 MG Warfarin Sodium (Coumadin Tab) 10 mg DAILY@16 PO 10/25/16 16:00 11/24/16 15:59 Future Hold 10/26/16 16:01 10 MG Ipratropium Freedom (Atrovent 0.02% 0.5MG/2.5ML Neb) 0.5 mg Q4H PRN INH 10/25/16 22:30 11/15/16 14:29 Levalbuterol (Xopenex 0.63 Mg/ 3 Ml Neb) 0.63 mg Q4H PRN INH 10/25/16 22:30 11/15/16 14:29
[2016-10-27 19:15] LABS: PLEURAL FLUID APPEARANCE CLOUDY; PLEURAL FLUID COLOR YELLOW; PLEURAL FLUID SOURCE LEFT PLEURAL FLUID
[2016-10-27 19:16] LABS: PLEURAL FLUID MONONUC RELAT 29.4 %; PLEURAL FLUID POLYNUC 70.6 %; PLEURAL FLUID WBC (A) 2121 /uL
[2016-10-27 19:28] VITALS: BP 123/56; PULSE 97; TEMP 36.7; O2SAT 99
[2016-10-27 23:27] VITALS: BP 112/80; PULSE 80; TEMP 36.7; O2SAT 97
[2016-10-28] MEDS: ACETAMINOPHEN 325 MG TAB PO PRN ×3 (02:31→19:18)
[2016-10-28 03:42] VITALS: BP 101/67; PULSE 86; TEMP 36.7; O2SAT 96
[2016-10-28 06:04] LABS: HEMATOCRIT 31.6 % (37-47); MEAN CELL VOLUME 93.5 fL (80-100); MEAN CORPUSCULAR HEMOGLOBIN 30.5 pg (25-34); MEAN CORPUSCULAR HGB CONC 32.6 g/dl (32-36); MEAN PLATELET VOLUME 8.9 fL (7.4-10.4); PLATELET COUNT 575 K/uL (130-400); RED BLOOD COUNT 3.38 M/uL (4.2-5.4); WHITE BLOOD COUNT 12.77 K/uL (4.8-10.8)
[2016-10-28 06:13] LABS: INR 1.6 (0.9-1.1); PROTHROMBIN TIME (PATIENT) 17.4 SECONDS (9.0-12.0)
[2016-10-28 06:45] LABS: BUN/CREATININE RATIO 25.6 (10-20); CALCIUM 8.9 mg/dl (8.5-10.1); CREATININE 0.46 mg/dl (0.60-1.20); POTASSIUM 4.4 mmol/L (3.5-5.1)
[2016-10-28] MEDS: MULTIVITAMIN TAB PO SCH (07:30)
[2016-10-28] MEDS: POTASSIUM CHLORIDE 20 MEQ TABCR PO SCH ×2 (07:30→20:48)
[2016-10-28] MEDS: ASPIRIN 81 MG ECTAB PO SCH (07:30)
[2016-10-28] MEDS: CITALOPRAM 20 MG TAB PO SCH (07:30)
[2016-10-28] MEDS: MAGNESIUM OXIDE 400 MG TAB PO SCH (07:31)
[2016-10-28] MEDS: PANTOprazole SOD 40 MG TAB PO SCH (07:31)
[2016-10-28] MEDS: METOPROLOL SUCC 50MG EXT REL TAB PO SCH ×2 (07:31→20:47)
[2016-10-28] MEDS: THIAMINE HCL 100 MG TAB PO SCH (07:31)
[2016-10-28] MEDS: TORSEMIDE 20 MG TAB PO SCH (07:31)
[2016-10-28] MEDS: NICOTINE 7 MG/24 HR TDSY TD SCH (07:32)
[2016-10-28] MEDS: FoLIC ACID TAB 400 MCG TAB PO SCH (07:32)
[2016-10-28 07:33] VITALS: BP 102/63; PULSE 91; TEMP 36.7; O2SAT 96
[2016-10-28] MEDS ORDERED: ENOXAPARIN 1 MG/KG SQ ONE (10:19)
--- NOTE | 2016-10-28 10:19 | Cardiology Follow-Up ---
Subjective General Date of Service: Oct 28, 2016. Chief Complaint: chest pain atrial fibrillatory rapid ventricular rate Pt evaluation today including: conversation w/ patient, physical exam, chart review, lab review, review of studies, review of inpatient medication list History of Present Illness Patient feeling well this AM. Denies chest pain. SOB improved. Tolerated Left sided thoracentesis. No dizziness, syncope or near syncope. No palpitations. No orthopnea, PND or edema. No cough. Allergies Coded Allergies: Sulfa Antibiotics (Verified Allergy, Mild, "SULFA" -- unknown rxn, 09/15/16 ) Social History Smoking Status: Current Every Day Smoker Hx Tobacco Use In Past Year?: Yes Hx Alcohol Use - Type And Amou: Yes ( 2 - 3 beers a day) Hx Substance Use - Type And Am: No Problem List Medical Problems: (1) Abnormal EKG Status: Acute (2) Alcohol use Status: Acute (3) Atrial fibrillation Status: Acute (4) Chest pain on respiration Status: Acute (5) Closed fracture of right proximal humerus Status: Acute (6) Elevated troponin Status: Acute (7) Head trauma Status: Acute (8) Hypomagnesemia Status: Acute (9) Hyponatremia Status: Acute (10) Mitral valve regurgitation Status: Acute (11) Supratherapeutic INR Status: Acute (12) Syncope Status: Acute (13) Tachycardia Status: Acute Review of Systems Respiratory: No cough, No sputum, No wheezing, No shortness of breath, No dyspnea at rest, No hemoptysis Cardiac: No chest pain, No orthopnea, No PND, No edema, No palpitations Physical Exam Vital Signs Last Vital Signs Documentation Date Time Temp Pulse Resp B/P (MAP) Pulse Ox O2 Delivery O2 Flow Rate FiO2 10/28/16 07:33 36.7 91 18 102/63 (76) 96 Room Air 10/18/16 16:00 10/18/16 08:00 95 Physical Exam Constitutional: General Apperance: heathly-appearing Level of Distress: NAD, chronically ill Psychiatric: Mental Status: active & alert Orientation: to time, to place, to person Memory: recent memory normal Head: normocephalic Eyes: Pupils: PERRLA Neck: supple Lungs: Respiratory effort: no dyspnea Auscultation: deminished air movement Cardiovascular: Heart Auscultation: no murmurs, no rubs, no gallops, irregular rate rhythm Abdomen: Bowel Sounds: normal Inspection & Palpation: soft Extremities: no edema Neurologic: Gait & Station: pertinent finding (no focal neurologic deficits) Assessment and Plan Assessment and Plan Impression: 61-year-old female 1. Chronic persistent atrial fibrillation, severe biatrial enlargement, preserved LVEF, small circumferential pericardial effusion. 2. Diastolic heart failure 3. Large persistent left pleural effusion s/p left sided thoracentesis with good results. 4. Recent mechanical fall, ORIF of right humerus 5. Alcohol addiction, status post treatment for alcohol withdrawal this admission 6. Borderline low blood pressure Plan: Heart rates greatly improved today s/p thoracentesis. Continue metoprolol and digoxin. Rate control strategy recommended given severe biatrial enlargement on echo. It would be difficult to maintain NSR. Continue torsemide Continue Lovenox to Coumadin INR goal 2-3. Patient counseled regarding alcohol and tobacco abuse when she returns home. She is agreeable to abstain Case discussed with Dr. Valdez. Will follow as hospital course progresses. CARDIOLOGY ATTENDING ADDENDUM: The patient was seen and personally examined. Agree with Baltazar Lester PA-C's findings and plans as documented above with additions as noted below. Subjective: Patient without complaints she is enjoying her noontime meal and states that she feels her work of breathing has dramatically improved having undergone thoracentesis yesterday 10/27/16 yielding 600 ML's of fluid. The fluid analysis is pending at present. Exam: Lungs clear Telemetry: Atrial fibrillation, rates improved To 80-90 be per minute range. INR was 1.8 yesterday, and 1.6 today. Coumadin had been held because of thoracentesis. Impression: As outlined above. Persistent atrial fibrillation, rates improved. Proceed with continued rate control with metoprolol and digoxin. Resume full anticoagulation dose Lovenox, 1 mg/kg body weight every 12 hours for bridge therapy pending INR greater than 2. Resume Coumadin today. Her Coumadin dose is known to be high based on outpatient experience. 10 milligrams daily has therefore been ordered. Anticipate potential need for rehabilitation given orthopedic surgery. From a cardiac perspective she is well compensated at present. Need to continue oral diuretics with torsemide to prevent pleural fluid reaccumulation. Not certain if her fluid accumulation is due to diastolic heart failure versus hypoalbuminemia. Also she is noted to have a history of breast cancer and therefore will need to watch the pathology report of the pleural fluid. Laboratory Results Last 24 Hours Test 10/27/16 16:40 10/28/16 05:38 Pleural Fluid Source LEFT PLEURAL FLUID Pleural Fluid Color YELLOW Pleural Fluid Appearance CLOUDY Pleural Fluid WBC 2121 /uL Pleural Fluid RBC < 3000 /uL Pleural Fluid Other Cells % Pleural Fluid Polynuclear WBCs % 70.6 % Pleural Fluid Mononuclear WBCs % 29.4 % Pleural Fluid Total Protein 4.8 g/dl Pleural Fluid LDH 98 IU Pleural Fluid Glucose 115 mg/dl Pleural Fluid Amylase 40 U/L White Blood Count 12.77 K/uL Red Blood Count 3.38 M/uL Hemoglobin 10.3 g/dL Hematocrit 31.6 % Mean Corpuscular Volume 93.5 fL Mean Corpuscular Hemoglobin 30.5 pg Mean Corpuscular Hemoglobin Concent 32.6 g/dl RDW Standard Deviation 49.6 fL RDW Coefficient of Variation 14.6 % Platelet Count 575 K/uL Mean Platelet Volume 8.9 fL Prothrombin Time 17.4 SECONDS Prothromb Time International Ratio 1.6 Sodium Level 131 mmol/L Potassium Level 4.4 mmol/L Chloride Level 99 mmol/L Carbon Dioxide Level 21 mmol/L Anion Gap 11.0 mmol/L Blood Urea Nitrogen 12 mg/dl Creatinine 0.46 mg/dl Est Creatinine Clear Calc Drug Dose 113.1 ml/min Estimated GFR () 122.7 Estimated GFR (Non- 105.9 BUN/Creatinine Ratio 25.6 Random Glucose 119 mg/dl Calcium Level 8.9 mg/dl
[2016-10-28 11:31] VITALS: BP 105/73; PULSE 87; TEMP 36.6; O2SAT 96
[2016-10-28] MEDS: ENOXAPARIN 60 MG/0.6 ML SYR SQ SCH ×2 (12:32→20:48)
[2016-10-28] MEDS: FERROUS SULFATE 325 MG TAB PO SCH (12:32)
--- NOTE | 2016-10-28 13:33 | DIAGNOSTIC IMAGING REPORT ---
CT OF THE CHEST WITHOUT IV CONTRAST CLINICAL HISTORY: Parapneumonic effusion. Possible trapped lung. COMPARISON STUDY: Chest CT October 25, 2016 and chest radiograph October 27, 2016. CT DOSE: 232.92 mGycm TECHNIQUE: Axial images of the chest were obtained without IV contrast. Images were reviewed in the axial, sagittal, and coronal planes. IV contrast was not administered for this examination. FINDINGS: No enlarged axillary, mediastinal or hilar lymph nodes are present. The heart is moderately enlarged. There is a trace pericardial effusion. A left pleural effusion has significantly decreased in size since exam of October 25, 2016 status post suspected interval thoracentesis. Left lower lobe aeration has significantly improved. There is lingular and left lower lobe opacity. There is a trace right pleural effusion. Right middle lobe and right lower lobe opacity favors atelectasis. There are patent central airways. No suspicious osseous lesion is shown within the bony thorax. There are post therapeutic findings within the left breast. Upper abdomen is unremarkable on this unenhanced exam. IMPRESSION: 1. Small left pleural effusion, significantly decreased in size since prior CT of October 25, 2016 status post suspected interval thoracentesis. Interval improvement in left lower lobe aeration. Residual mild lingular and left lower lobe atelectasis with patchy left lower lobe airspace opacity. 2. Trace right pleural effusion. 3. Moderate cardiomegaly and trace pericardial effusion. Electronically signed by: Donny Smith M.D. 10/28/2016 1:31 PM Dictated Date/Time: 10/28/2016 1:23 PM
--- NOTE | 2016-10-28 14:36 | Pulmonology Progress Note ---
Pulmonary Progress Note Date of Service Oct 28, 2016. Attending Dr. Rosen Subjective Patient notes dramatic improvement status post a thoracentesis Objective Patient is doing well today able to complete full sentences no signs of respiratory insufficiency, she has no active cough Vital signs: Stable on room air Respiratory: Notable rhonchi of the left lower lobe with mild dullness to percussion Cardiac: S1-S2 distant heart sounds irregular rate and rhythm Abdomen: Positive bowel sounds soft nontender Right upper extremity: Good capillary refill noted at the digits sensation intact Post procedural CXR: no signs of PTX and continued opacification of the left hemithorax but now able to visualize the left diaphragm Pleural Fluid: Gram stain: many WBC noted but no organisms WBC: 2121 (71% ploys29% mono) pH: Cancelled TP: 4.8 LDH: 98 Glu: 115 Amylase: 40 Exudative (Simple parapneumonic effusion) Get a non-contrast CT of the thorax) CT of the thorax 10/28/[address] thorax 05/08/2015 Significantly decreased left-sided pleural effusion no signs of pneumothorax Lingular pleural-based nodule with associated tram tracking Left lower lobe nodule appears to be rounded atelectasis with loculated pleural effusion Atelectasis of the anterior subsegment of the left lower lobe Assessment & Plan 61-year-old female with left-sided pleural effusion and abnormal CAT scan: #1 Pleural Effusion: Patient's pleural fluid analysis suggest she has a simple parapneumonic effusion. No active signs of infection. At this time I do agree with monitoring the patient not initiating antibiotics. The patient will need this followed as an outpatient. #2 Abnormal CAT Scan: Patient is a long history of smoking, previous breast carcinoma, chronic alcoholism possible aspiration, chronic atrial fibrillation with congestive heart failure. Patient CT notable for lingular nodule as well as chronic changes in the left lower lobe will require follow-up for further workup: Breast carcinoma, primary lung carcinoma, chronic aspiration or loculated effusion secondary to chronic congestive heart failure. Data Medications: Current Inpatient Medications Medications (Trade) Dose Ordered Sig/Ton Route Start Time Stop Time Status Last Admin Dose Admin Acetaminophen (Tylenol Tab) 650 mg Q4H PRN PO 10/09/16 13:00 11/08/16 12:59 10/28/16 12:35 650 MG Ondansetron HCl (Zofran Inj) 4 mg Q6H PRN IV 10/09/16 13:00 11/08/16 12:59 Nitroglycerin (Nitrostat Tab) 0.4 mg UD PRN SL 10/09/16 13:00 11/08/16 12:59 Citalopram Hydrobromide (celeXA TAB) 20 mg QAM PO 10/10/16 09:00 11/09/16 08:59 Future hold 10/28/16 07:30 20 MG Magnesium Oxide (Mag-Ox Tab) 400 mg QAM PO 10/10/16 09:00 11/09/16 08:59 Future hold 10/28/16 07:31 400 MG Albuterol (Ventolin Hfa Inhaler) 2 puffs Q4H PRN INH 10/09/16 14:45 11/08/16 14:44 Nicotine (Nicoderm Cq 7 Mg Patch) 1 patch QAM TD 10/10/16 09:00 11/09/16 08:59 10/28/16 07:32 1 PATCH Miscellaneous (Remove Nicoderm Patch) 1 ea HS N/A 10/09/16 21:00 11/08/16 20:59 10/27/16 19:36 1 EA Aspirin (Ecotrin Tab) 81 mg QAM PO 10/10/16 09:00 11/09/16 08:59 10/28/16 07:30 81 MG Ergocalciferol (Vitamin D Cap) 50,000 interunit Q7D PO 10/10/16 14:00 11/09/16 13:59 Future Hold 10/10/16 16:21 50,000 INTERUNIT Al Hydroxide/Mg Hydroxide (Maalox Susp) 30 ml Q4H PRN PO 10/11/16 21:00 11/10/16 20:59 Miscellaneous Medication (No Nsaids) 1 ea UD N/A 10/11/16 21:00 11/10/16 20:59 Multivitamins (Multivitamin Tab) 1 tab DAILY PO 10/12/16 09:00 11/11/16 08:59 Future hold 10/28/16 07:30 1 TAB Pantoprazole Sodium (Protonix Tab) 40 mg QAM PO 10/13/16 09:00 11/12/16 08:59 10/28/16 07:31 40 MG Polyethylene (Miralax Powder Packet) 17 gm DAILY PRN PO 10/13/16 09:30 11/12/16 09:29 Metoprolol Tartrate (Lopressor Iv) 2.5 mg Q6 PRN IV 10/16/16 13:00 10/26/16 01:10 2.5 MG Thiamine HCl (Vitamin B-1 Tab) 100 mg QAM PO 10/19/16 09:00 11/18/16 08:59 10/28/16 07:31 100 MG Folic Acid (Folvite Tab) 400 mcg QAM PO 10/19/16 09:00 11/18/16 08:59 10/28/16 07:32 400 MCG Metoprolol Succinate (Toprol Xl Tab) 50 mg BID PO 10/19/16 09:00 11/18/16 08:59 10/28/16 07:31 50 MG Ferrous Sulfate (Feosol Tab) 325 mg DAILY@1200 PO 10/19/16 12:00 11/18/16 11:59 10/28/16 12:32 325 MG Potassium Chloride (Klor-Con Tab) 20 meq BID PO 10/20/16 09:00 11/19/16 08:59 10/28/16 07:30 20 MEQ Ioversol (Optiray 320) 125 ml UD PRN IV 10/25/16 09:30 10/29/16 09:29 Digoxin (Lanoxin Tab) 0.125 mg DAILY@16 PO 10/25/16 16:00 11/24/16 15:59 10/27/16 15:32 0.125 MG Torsemide (Demadex Tab) 5 mg QAM PO 10/26/16 09:00 11/25/16 08:59 10/28/16 07:31 5 MG Warfarin Sodium (Coumadin Tab) 10 mg DAILY@16 PO 10/25/16 16:00 11/24/16 15:59 Future hold 10/26/16 16:01 10 MG Ipratropium [place] (Atrovent 0.02% 0.5MG/2.5ML Neb) 0.5 mg Q4H PRN INH 10/25/16 22:30 11/15/16 14:29 Levalbuterol (Xopenex 0.63 Mg/ 3 Ml Neb) 0.63 mg Q4H PRN INH 10/25/16 22:30 11/15/16 14:29 Enoxaparin Sodium (Lovenox Inj) 60 mg Q12 SQ 10/28/16 11:00 11/27/16 10:59 10/28/16 12:32 60 MG I & O: 24-Hour Column 10/29/16 08:00 Intake Total 475 ml Output Total 800 ml Balance -325 ml Vital Signs: Date Time Temp Pulse Resp B/P (MAP) Pulse Ox O2 Delivery O2 Flow Rate FiO2 10/28/16 11:31 36.6 87 16 105/73 (84) 96 Room Air 10/28/16 07:33 36.7 91 18 102/63 (76) 96 Room Air 10/28/16 04:00 Room Air 10/28/16 03:42 36.7 86 19 101/67 (78) 96 Room Air 10/28/16 00:00 Room Air 10/27/16 23:27 36.7 80 18 112/80 (91) 97 Room Air 10/27/16 20:00 Room Air 10/27/16 19:28 36.7 97 22 123/56 (78) 99 Room Air 10/27/16 16:00 Room Air 10/27/16 15:32 94 10/27/16 15:16 36.7 102 20 93/67 (76) 95 Room Air Laboratory Results: Last 24 Hours Test 10/27/16 16:40 10/28/16 05:38 Pleural Fluid Source LEFT PLEURAL FLUID Pleural Fluid Color YELLOW Pleural Fluid Appearance CLOUDY Pleural Fluid WBC 2121 /uL Pleural Fluid RBC < 3000 /uL Pleural Fluid Other Cells % Pleural Fluid Polynuclear WBCs % 70.6 % Pleural Fluid Mononuclear WBCs % 29.4 % Pleural Fluid Total Protein 4.8 g/dl Pleural Fluid LDH 98 IU Pleural Fluid Glucose 115 mg/dl Pleural Fluid Amylase 40 U/L White Blood Count 12.77 K/uL Red Blood Count 3.38 M/uL Hemoglobin 10.3 g/dL Hematocrit 31.6 % Mean Corpuscular Volume 93.5 fL Mean Corpuscular Hemoglobin 30.5 pg Mean Corpuscular Hemoglobin Concent 32.6 g/dl RDW Standard Deviation 49.6 fL RDW Coefficient of Variation 14.6 % Platelet Count 575 K/uL Mean Platelet Volume 8.9 fL Prothrombin Time 17.4 SECONDS Prothromb Time International Ratio 1.6 Sodium Level 131 mmol/L Potassium Level 4.4 mmol/L Chloride Level 99 mmol/L Carbon Dioxide Level 21 mmol/L Anion Gap 11.0 mmol/L Blood Urea Nitrogen 12 mg/dl Creatinine 0.46 mg/dl Est Creatinine Clear Calc Drug Dose 113.1 ml/min Estimated GFR () 122.7 Estimated GFR (Non- 105.9 BUN/Creatinine Ratio 25.6 Random Glucose 119 mg/dl Calcium Level 8.9 mg/dl
[2016-10-28 15:50] VITALS: BP 121/76; PULSE 106; TEMP 36.4; O2SAT 98
[2016-10-28] MEDS ORDERED: WARFARIN SOD 2.5 MG TAB PO SCH (16:00)
[2016-10-28] MEDS: DIGOXIN 0.125 MG TAB PO SCH (17:44)
[2016-10-28] MEDS: WARFARIN SOD 5 MG TAB PO SCH (17:44)
[2016-10-28 19:15] VITALS: BP 102/62; PULSE 79; TEMP 36.5; O2SAT 98
--- NOTE | 2016-10-28 19:33 | Progress Note ---
Medicine Progress Note Date & Time of Visit: Oct 28, 2016 at 19:18. Subjective Pt was seen and examined Sitting in chair with no distress complaint of mild tenderness in her right shoulder from the surgery Pt said that her breathing feels much better Denies any chest pain, palpitation, dizziness and SOB Objective Last 8 Hrs Date Time Temp Pulse Resp B/P (MAP) Pulse Ox O2 Delivery O2 Flow Rate FiO2 10/28/16 19:15 36.5 79 20 102/62 (75) 98 Room Air 10/28/16 17:44 86 10/28/16 16:00 Room Air 10/28/16 15:50 36.4 106 20 121/76 (91) 98 Room Air 10/28/16 12:00 Room Air 10/28/16 11:31 36.6 87 16 105/73 (84) 96 Room Air Physical Exam: General- No acute distress Head- atraumatic Eyes- PERRL, EOMI ENT- oropharynx clear Neck- supple, no JVD Lungs- No wheezing, no crackles Heart- irregular rhythm Abdomen- normal bowel sounds, soft, nontender Extremities- no pretibial edema, no calf tenderness, Right shoulder incision with no signs of infection Neuro- alert, oriented x 3; PERRL, EOMI Skin- warm & dry Laboratory Results: Last 24 Hours Test 10/28/16 05:38 White Blood Count 12.77 K/uL Red Blood Count 3.38 M/uL Hemoglobin 10.3 g/dL Hematocrit 31.6 % Mean Corpuscular Volume 93.5 fL Mean Corpuscular Hemoglobin 30.5 pg Mean Corpuscular Hemoglobin Concent 32.6 g/dl RDW Standard Deviation 49.6 fL RDW Coefficient of Variation 14.6 % Platelet Count 575 K/uL Mean Platelet Volume 8.9 fL Prothrombin Time 17.4 SECONDS Prothromb Time International Ratio 1.6 Sodium Level 131 mmol/L Potassium Level 4.4 mmol/L Chloride Level 99 mmol/L Carbon Dioxide Level 21 mmol/L Anion Gap 11.0 mmol/L Blood Urea Nitrogen 12 mg/dl Creatinine 0.46 mg/dl Est Creatinine Clear Calc Drug Dose 113.1 ml/min Estimated GFR () 122.7 Estimated GFR (Non- 105.9 BUN/Creatinine Ratio 25.6 Random Glucose 119 mg/dl Calcium Level 8.9 mg/dl Assessment & Plan LEUKOCYTOSIS WBC improved from 26K to 12K today Afebrile, no signs of infection CXR showed no infiltrate Completed 7 day course of antibiotics for suspected aspiration pneumonia. UA negative and procalcitonin normal if becomes febrile, will check blood cx if develops any diarrhea, will send stool for Cdiff Continue monitor CBC CHEST PAIN CTA negative for PE. CM are negative Asymptomatic currently Resolved CHRONIC ATRIAL FIBRILLATION Rate is between 95 - 110 On Digoxin 125mcg / metoprolol 50mg BID unable to increase metoprolol due to low BP Continue Coumadin. INR today = 1.6 Lovenox resume to continue until INR is therapeutic cardiology on board Continue monitor to Telemetry PULMONARY EDEMA Pulmonary edema noted on CT of chest 10/16/16. Echo on 10/10/16 demonstrated normal left ventricular wall motion and systolic function. Pulmonary edema most likely secondary to fluid overload / acute on chronic left ventricular diastolic heart failure. Furosemide changed to torsemide Continue torsemide repeat CT chest today showed mall left pleural effusion, tace right pleural effusion. Moderate cardiomegaly and trace pericardial effusion clinically improved HYPERTENSION / HYPOTENSION Blood pressure in the low side. Unable to do blood pressures in right arm due to humerus fracture. Unable to perform BP's in left arm due to axillary node dissection. Losartan discontinued. Continue metoprolol succinate 50 mg twice a day with parameter Asymptomatic Continue monitor PLEURAL EFFUSIONS Probably secondary to fluid overload. CXR large left pleural effusion. ' Pulmonary on board and thoracentesis done where 600 ml of fluid removed Furosemide changed to torsemide Continue torsemide Repeat CXR post thoracentesis showed no significant postprocedural pneumothorax. Left pleural effusion decrease in volume pleural fluid culture no growth, Gram stain: many WBC noted but no organisms pleural fluid analysis suggest simple parapneumonic effusion. No signs of infection continue monitor POSSIBLE PNEUMONIA / ATELECTASIS Imaging by routine chest films and CT showed pulmonary densities, atelectasis versus pneumonia. Completed abx course Asymptomatic Stable HYPONATREMIA Sodium 10/23 was 135. Sodium today 131 Probable SIADH. Fluid restrict. Continue monitor HYPOKALEMIA Stable Continue monitor K HYPOMAGNESEMIA Stable Continue monitor electrolytes FRACTURE RIGHT HUMERUS S/P ORIF by Dr. Clayton 10/11. [place] removed 10/25/16. Continue OT. No ROM of the shoulder for 2 weeks. Non weightbearing RUE. F/U with Dr. Clayton in 2 weeks from the day of surgery. VITAMIN D DEFICIENCY / OSTEOPOROSIS Rx with calcium + vitamin D. 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 Alcohol intoxication likely contributing factor. PT / OT. ALCOHOL ABUSE / DELIRIUM TREMENS Experienced severe alcohol withdrawal symptoms. Initially received gabapentin and lorazepam per protocol. Subsequently received dexmedetomidine and chlordiazepoxide. Symptoms improved Continue thiamine, folate, multivitamins. Problems related to alcoholism discussed with patient and her . Will need ongoing counseling. stable TOBACCO ABUSE Tobacco cessation counseling. Continue nicotine patch DEPRESSION Continue citalopram. Stable VTE PROPHYLAXIS Continue SQ enoxaparin until INR therapeutic. Ambulate. DISPOSITION Waiting for approval insurance for placement to need rehabilitation. Case Management consulted. Family medicine follow-up with Dr. Min. Consultants: Ortho CCM Cardiology . Procedures: ORIF right proximal humerus by Dr. Clayton 10/11/16 Cardiac monitoring Intravenous fluids Intravenous medications Echocardiogram CT head CT upper extremity CTA chest Ultrasound liver PT OT . Current Inpatient Medications: Current Inpatient Medications Medications (Trade) Dose Ordered Sig/Ton Route Start Time Stop Time Status Last Admin Dose Admin Acetaminophen (Tylenol Tab) 650 mg Q4H PRN PO 10/09/16 13:00 11/08/16 12:59 10/28/16 12:35 650 MG Ondansetron HCl (Zofran Inj) 4 mg Q6H PRN IV 10/09/16 13:00 11/08/16 12:59 Nitroglycerin (Nitrostat Tab) 0.4 mg UD PRN SL 10/09/16 13:00 11/08/16 12:59 Citalopram Hydrobromide (celeXA TAB) 20 mg QAM PO 10/10/16 09:00 11/09/16 08:59 Future hold 10/28/16 07:30 20 MG Magnesium Oxide (Mag-Ox Tab) 400 mg QAM PO 10/10/16 09:00 11/09/16 08:59 Future hold 10/28/16 07:31 400 MG Albuterol (Ventolin Hfa Inhaler) 2 puffs Q4H PRN INH 10/09/16 14:45 11/08/16 14:44 Nicotine (Nicoderm Cq 7 Mg Patch) 1 patch QAM TD 10/10/16 09:00 11/09/16 08:59 10/28/16 07:32 1 PATCH Miscellaneous (Remove Nicoderm Patch) 1 ea HS N/A 10/09/16 21:00 11/08/16 20:59 10/27/16 19:36 1 EA Aspirin (Ecotrin Tab) 81 mg QAM PO 10/10/16 09:00 11/09/16 08:59 10/28/16 07:30 81 MG Ergocalciferol (Vitamin D Cap) 50,000 interunit Q7D PO 10/10/16 14:00 11/09/16 13:59 Future Hold 10/10/16 16:21 50,000 INTERUNIT Al Hydroxide/Mg Hydroxide (Maalox Susp) 30 ml Q4H PRN PO 10/11/16 21:00 11/10/16 20:59 Miscellaneous Medication (No Nsaids) 1 ea UD N/A 10/11/16 21:00 11/10/16 20:59 Multivitamins (Multivitamin Tab) 1 tab DAILY PO 10/12/16 09:00 11/11/16 08:59 Future hold 10/28/16 07:30 1 TAB Pantoprazole Sodium (Protonix Tab) 40 mg QAM PO 10/13/16 09:00 11/12/16 08:59 10/28/16 07:31 40 MG Polyethylene (Miralax Powder Packet) 17 gm DAILY PRN PO 10/13/16 09:30 11/12/16 09:29 Metoprolol Tartrate (Lopressor Iv) 2.5 mg Q6 PRN IV 10/16/16 13:00 10/26/16 01:10 2.5 MG Thiamine HCl (Vitamin B-1 Tab) 100 mg QAM PO 10/19/16 09:00 11/18/16 08:59 10/28/16 07:31 100 MG Folic Acid (Folvite Tab) 400 mcg QAM PO 10/19/16 09:00 11/18/16 08:59 10/28/16 07:32 400 MCG Metoprolol Succinate (Toprol Xl Tab) 50 mg BID PO 10/19/16 09:00 11/18/16 08:59 10/28/16 07:31 50 MG Ferrous Sulfate (Feosol Tab) 325 mg DAILY@1200 PO 10/19/16 12:00 11/18/16 11:59 10/28/16 12:32 325 MG Potassium Chloride (Klor-Con Tab) 20 meq BID PO 10/20/16 09:00 11/19/16 08:59 10/28/16 07:30 20 MEQ Ioversol (Optiray 320) 125 ml UD PRN IV 10/25/16 09:30 10/29/16 09:29 Digoxin (Lanoxin Tab) 0.125 mg DAILY@16 PO 10/25/16 16:00 11/24/16 15:59 10/28/16 17:44 0.125 MG Torsemide (Demadex Tab) 5 mg QAM PO 10/26/16 09:00 11/25/16 08:59 10/28/16 07:31 5 MG Warfarin Sodium (Coumadin Tab) 10 mg DAILY@16 PO 10/25/16 16:00 11/24/16 15:59 Future hold 10/28/16 17:44 10 MG Ipratropium [place] (Atrovent 0.02% 0.5MG/2.5ML Neb) 0.5 mg Q4H PRN INH 10/25/16 22:30 11/15/16 14:29 Levalbuterol (Xopenex 0.63 Mg/ 3 Ml Neb) 0.63 mg Q4H PRN INH 10/25/16 22:30 11/15/16 14:29 Enoxaparin Sodium (Lovenox Inj) 60 mg Q12 SQ 10/28/16 11:00 11/27/16 10:59 10/28/16 12:32 60 MG
[2016-10-28] MEDS ORDERED: ENOXAPARIN 1 MG/KG SQ SCH (21:00)
[2016-10-29] VITALS: BP 101/68; PULSE 82; TEMP 36.5; O2SAT 96
[2016-10-29 04:00] VITALS: BP 109/73; PULSE 80; TEMP 36.5; O2SAT 98
[2016-10-29] MEDS: ACETAMINOPHEN 325 MG TAB PO PRN ×2 (06:28→12:17)
[2016-10-29 06:41] LABS: INR 1.5 (0.9-1.1); PROTHROMBIN TIME (PATIENT) 16.1 SECONDS (9.0-12.0)
[2016-10-29 06:50] LABS: CREATININE 0.5 mg/dl (0.60-1.20)
[2016-10-29 07:19] VITALS: BP 96/59; PULSE 76; TEMP 36.6; O2SAT 97
[2016-10-29] MEDS: POTASSIUM CHLORIDE 20 MEQ TABCR PO SCH (07:51)
[2016-10-29] MEDS: MAGNESIUM OXIDE 400 MG TAB PO SCH (07:51)
[2016-10-29] MEDS: MULTIVITAMIN TAB PO SCH (07:51)
[2016-10-29] MEDS: ASPIRIN 81 MG ECTAB PO SCH (07:52)
[2016-10-29] MEDS: FERROUS SULFATE 325 MG TAB PO SCH (07:52)
[2016-10-29] MEDS: THIAMINE HCL 100 MG TAB PO SCH (07:52)
[2016-10-29] MEDS: CITALOPRAM 20 MG TAB PO SCH (07:52)
[2016-10-29] MEDS: PANTOprazole SOD 40 MG TAB PO SCH (07:52)
[2016-10-29] MEDS: FoLIC ACID TAB 400 MCG TAB PO SCH (07:52)
[2016-10-29] MEDS: NICOTINE 7 MG/24 HR TDSY TD SCH (07:54)
[2016-10-29] MEDS: TORSEMIDE 20 MG TAB PO SCH (09:00)
--- NOTE | 2016-10-29 10:36 | Cardiology Follow-Up ---
Subjective General Date of Service: Oct 29, 2016. Chief Complaint: chest pain atrial fibrillatory rapid ventricular rate Pt evaluation today including: conversation w/ patient, physical exam, chart review, lab review, review of studies, review of inpatient medication list History of Present Illness The patient is a 61 year old female seen in follow-up. Patient is feeling well. Denies palpitations or chest discomfort. Borderline hypotensive this a.m. A.m. doses of torsemide and Toprol were held. Pleural fluid pathology is pending. Patient offers no complaints this time. Allergies Coded Allergies: Sulfa Antibiotics (Verified Allergy, Mild, "SULFA" -- unknown rxn, 09/15/16 ) Social History Smoking Status: Current Every Day Smoker Hx Tobacco Use In Past Year?: Yes Hx Alcohol Use - Type And Amou: Yes ( 2 - 3 beers a day) Hx Substance Use - Type And Am: No Problem List Medical Problems: (1) Abnormal EKG Status: Acute (2) Alcohol use Status: Acute (3) Atrial fibrillation Status: Acute (4) Chest pain on respiration Status: Acute (5) Closed fracture of right proximal humerus Status: Acute (6) Elevated troponin Status: Acute (7) Head trauma Status: Acute (8) Hypomagnesemia Status: Acute (9) Hyponatremia Status: Acute (10) Mitral valve regurgitation Status: Acute (11) Supratherapeutic INR Status: Acute (12) Syncope Status: Acute (13) Tachycardia Status: Acute Review of Systems Respiratory: No cough, No sputum, No wheezing, No shortness of breath, No dyspnea at rest, No hemoptysis Cardiac: No chest pain, No orthopnea, No PND, No edema, No claudication, No palpitations Physical Exam Vital Signs Last Vital Signs Documentation Date Time Temp Pulse Resp B/P (MAP) Pulse Ox O2 Delivery O2 Flow Rate FiO2 10/29/16 08:00 Room Air 10/29/16 07:19 36.6 76 16 96/59 (71) 97 10/18/16 16:00 10/18/16 08:00 95 Physical Exam Constitutional: General Apperance: heathly-appearing Level of Distress: NAD, chronically ill Psychiatric: Mental Status: active & alert Orientation: to time, to place, to person Memory: recent memory normal Head: normocephalic Eyes: Pupils: PERRLA Neck: supple Lungs: Respiratory effort: no dyspnea Auscultation: no wheezing, no rhonchi, decreased breath sounds (left base, with associated fine crackles) Cardiovascular: Heart Auscultation: no murmurs, no rubs, no gallops, irregular rate rhythm Abdomen: Bowel Sounds: normal Inspection & Palpation: soft Extremities: no edema Neurologic: Gait & Station: pertinent finding (no focal neurologic deficits) Assessment and Plan Assessment and Plan 1. Chronic atrial fibrillation, severe biatrial enlargement, preserved LVEF, small circumferential pericardial effusion. - Rate controlled 2. Diastolic heart failure - compensated 3. Large persistent left pleural effusion s/p left sided thoracentesis 4. Hypotension secondary to hypovolemia 5. Recent mechanical fall, ORIF of right humerus 6. Alcohol addiction, status post treatment for alcohol withdrawal this admission Plan: Hold torsemide. Continue metoprolol and digoxin. Nursing instructed to give dose of Toprol. Rate control strategy recommended given difficulties with maintenance of sinus rhythm noted in the past. Continue subcutaneous Lovenox bridging to Coumadin. High Coumadin dose requirements in the past. INR goal 2-3. Await pleural fluid pathology results. Will continue to follow. Laboratory Results Last 24 Hours Test 10/29/16 05:45 Prothrombin Time 16.1 SECONDS Prothromb Time International Ratio 1.5 Creatinine 0.50 mg/dl Est Creatinine Clear Calc Drug Dose 104.1 ml/min Estimated GFR () 119.4 Estimated GFR (Non- 103.0
[2016-10-29 11:08] VITALS: BP 149/81; PULSE 82; O2SAT 98
[2016-10-29 11:34] VITALS: BP 120/81; PULSE 83; TEMP 36.6; O2SAT 95
--- NOTE | 2016-10-29 11:42 | Progress Note ---
Medicine Progress Note Date & Time of Visit: Oct 29, 2016 at 11:32. Subjective Pt was seen and examined Sitting in chair with no distress Pt said that she feels fine she has been doing well today she very anxious to leave today denies any chest pain, palpitation, dizziness and SOB Objective Last 8 Hrs Date Time Temp Pulse Resp B/P (MAP) Pulse Ox O2 Delivery O2 Flow Rate FiO2 10/29/16 08:00 Room Air 10/29/16 07:19 36.6 76 16 96/59 (71) 97 Room Air 10/29/16 04:00 Room Air 10/29/16 04:00 36.5 80 18 109/73 (85) 98 Room Air Physical Exam: General- No acute distress Head- atraumatic Eyes- PERRL, EOMI ENT- oropharynx clear Neck- supple, no JVD Lungs- No wheezing, no crackles Heart- irregular rhythm Abdomen- normal bowel sounds, soft, nontender Extremities- no pretibial edema, no calf tenderness, Right shoulder incision with no signs of infection Neuro- alert, oriented x 3; PERRL, EOMI Skin- warm & dry Laboratory Results: Last 24 Hours Test 10/29/16 05:45 Prothrombin Time 16.1 SECONDS Prothromb Time International Ratio 1.5 Creatinine 0.50 mg/dl Est Creatinine Clear Calc Drug Dose 104.1 ml/min Estimated GFR () 119.4 Estimated GFR (Non- 103.0 Assessment & Plan LEUKOCYTOSIS WBC improved from 26K to 12K yesterday Afebrile, no signs of infection CXR showed no infiltrate Completed 7 day course of antibiotics for suspected aspiration pneumonia. UA negative and procalcitonin normal if becomes febrile, will check blood cx if develops any diarrhea, will send stool for Cdiff Continue monitor CBC Stable CHEST PAIN CTA negative for PE. CM are negative Asymptomatic currently Resolved CHRONIC ATRIAL FIBRILLATION Rate is between 95 - 110 On Digoxin 125mcg / metoprolol 50mg BID unable to increase metoprolol due to low BP Continue Coumadin. INR today = 1.5 (INR goal btw 2-3) Lovenox resume to continue until INR is therapeutic cardiology on board Case discussed with Dr. Drake recommended to continue metoprol and digoxin with the current dose PULMONARY EDEMA Pulmonary edema noted on CT of chest 10/16/16. Echo on 10/10/16 demonstrated normal left ventricular wall motion and systolic function. Pulmonary edema most likely secondary to fluid overload / acute on chronic left ventricular diastolic heart failure. Furosemide changed to torsemide repeat CT chest today showed mall left pleural effusion, tace right pleural effusion. Moderate cardiomegaly and trace pericardial effusion Torsemide was discontinued today because of low BP Pt has a normal EF no need to continue the torsemide if she becomes edematous we can do the torsemide PRN Case discussed with Dr. Drake clinically improved HYPERTENSION / HYPOTENSION Blood pressure in the low side. Unable to do blood pressures in right arm due to humerus fracture. Unable to perform BP's in left arm due to axillary node dissection. Losartan discontinued. Torsemide discontinued Continue metoprolol succinate 50 mg twice a day with parameter Asymptomatic Continue monitor PLEURAL EFFUSIONS Probably secondary to fluid overload. CXR large left pleural effusion. ' Pulmonary on board and thoracentesis done where 600 ml of fluid removed Furosemide changed to torsemide Torsemide was discontinued today because of low BP Repeat CXR post thoracentesis showed no significant postprocedural pneumothorax. Left pleural effusion decrease in volume pleural fluid culture no growth, Gram stain: many WBC noted but no organisms pleural fluid analysis suggest simple parapneumonic effusion. No signs of infection Follow up with Pulmonary Dr. Rosen in 2 to 4 weeks continue monitor POSSIBLE PNEUMONIA / ATELECTASIS Imaging by routine chest films and CT showed pulmonary densities, atelectasis versus pneumonia. Completed abx course Asymptomatic Stable HYPONATREMIA Sodium 10/23 was 135. Sodium 131 yesterday Probable SIADH. Fluid restrict. Continue monitor HYPOKALEMIA Stable Continue monitor K HYPOMAGNESEMIA Stable Continue monitor electrolytes FRACTURE RIGHT HUMERUS S/P ORIF by Dr. Clayton 10/11. Mykel removed 10/25/16. Continue OT. No ROM of the shoulder for 2 weeks. Non weightbearing RUE. F/U with Dr. Clayton in 2 weeks from the day of surgery. VITAMIN D DEFICIENCY / OSTEOPOROSIS Rx with calcium + vitamin D. 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 Alcohol intoxication likely contributing factor. PT / OT. Stable ALCOHOL ABUSE / DELIRIUM TREMENS Experienced severe alcohol withdrawal symptoms. Initially received gabapentin and lorazepam per protocol. Subsequently received dexmedetomidine and chlordiazepoxide. Symptoms improved Continue thiamine, folate, multivitamins. Problems related to alcoholism discussed with patient and her . Will need ongoing counseling. stable TOBACCO ABUSE Tobacco cessation counseling. Continue nicotine patch DEPRESSION Continue citalopram. Stable VTE PROPHYLAXIS Continue SQ enoxaparin until INR therapeutic. Ambulate. DISPOSITION Will discharge to rehab today for PT Case Management consulted. Family medicine follow-up with Dr. Min. Consultants: Ortho CCM Cardiology . Procedures: ORIF right proximal humerus by Dr. Clayton 10/11/16 Cardiac monitoring Intravenous fluids Intravenous medications Echocardiogram CT head CT upper extremity CTA chest Ultrasound liver PT OT . Current Inpatient Medications: Current Inpatient Medications Medications (Trade) Dose Ordered Sig/Ton Route Start Time Stop Time Status Last Admin Dose Admin Acetaminophen (Tylenol Tab) 650 mg Q4H PRN PO 10/09/16 13:00 11/08/16 12:59 10/29/16 06:28 650 MG Ondansetron HCl (Zofran Inj) 4 mg Q6H PRN IV 10/09/16 13:00 11/08/16 12:59 Nitroglycerin (Nitrostat Tab) 0.4 mg UD PRN SL 10/09/16 13:00 11/08/16 12:59 Citalopram Hydrobromide (celeXA TAB) 20 mg QAM PO 10/10/16 09:00 11/09/16 08:59 Future hold 10/29/16 07:52 20 MG Magnesium Oxide (Mag-Ox Tab) 400 mg QAM PO 10/10/16 09:00 11/09/16 08:59 Future hold 10/29/16 07:51 400 MG Albuterol (Ventolin Hfa Inhaler) 2 puffs Q4H PRN INH 10/09/16 14:45 11/08/16 14:44 Nicotine (Nicoderm Cq 7 Mg Patch) 1 patch QAM TD 10/10/16 09:00 11/09/16 08:59 10/29/16 07:54 1 PATCH Miscellaneous (Remove Nicoderm Patch) 1 ea HS N/A 10/09/16 21:00 11/08/16 20:59 10/28/16 20:48 1 EA Aspirin (Ecotrin Tab) 81 mg QAM PO 10/10/16 09:00 11/09/16 08:59 10/29/16 07:52 81 MG Ergocalciferol (Vitamin D Cap) 50,000 interunit Q7D PO 10/10/16 14:00 11/09/16 13:59 Future Hold 10/10/16 16:21 50,000 INTERUNIT Al Hydroxide/Mg Hydroxide (Maalox Susp) 30 ml Q4H PRN PO 10/11/16 21:00 11/10/16 20:59 Miscellaneous Medication (No Nsaids) 1 ea UD N/A 10/11/16 21:00 11/10/16 20:59 Multivitamins (Multivitamin Tab) 1 tab DAILY PO 10/12/16 09:00 11/11/16 08:59 Future hold 10/29/16 07:51 1 TAB Pantoprazole Sodium (Protonix Tab) 40 mg QAM PO 10/13/16 09:00 11/12/16 08:59 10/29/16 07:52 40 MG Polyethylene (Miralax Powder Packet) 17 gm DAILY PRN PO 10/13/16 09:30 11/12/16 09:29 Metoprolol Tartrate (Lopressor Iv) 2.5 mg Q6 PRN IV 10/16/16 13:00 10/26/16 01:10 2.5 MG Thiamine HCl (Vitamin B-1 Tab) 100 mg QAM PO 10/19/16 09:00 11/18/16 08:59 10/29/16 07:52 100 MG Folic Acid (Folvite Tab) 400 mcg QAM PO 10/19/16 09:00 11/18/16 08:59 10/29/16 07:52 400 MCG Metoprolol Succinate (Toprol Xl Tab) 50 mg BID PO 10/19/16 09:00 11/18/16 08:59 10/28/16 20:47 50 MG Ferrous Sulfate (Feosol Tab) 325 mg DAILY@1200 PO 10/19/16 12:00 11/18/16 11:59 10/29/16 07:52 325 MG Potassium Chloride (Klor-Con Tab) 20 meq BID PO 10/20/16 09:00 11/19/16 08:59 10/29/16 07:51 20 MEQ Digoxin (Lanoxin Tab) 0.125 mg DAILY@16 PO 10/25/16 16:00 11/24/16 15:59 10/28/16 17:44 0.125 MG Torsemide (Demadex Tab) 5 mg QAM PO 10/26/16 09:00 11/25/16 08:59 10/28/16 07:31 5 MG Warfarin Sodium (Coumadin Tab) 10 mg DAILY@16 PO 10/25/16 16:00 11/24/16 15:59 Future hold 10/28/16 17:44 10 MG Ipratropium [place] (Atrovent 0.02% 0.5MG/2.5ML Neb) 0.5 mg Q4H PRN INH 10/25/16 22:30 11/15/16 14:29 Levalbuterol (Xopenex 0.63 Mg/ 3 Ml Neb) 0.63 mg Q4H PRN INH 10/25/16 22:30 11/15/16 14:29 Enoxaparin Sodium (Lovenox Inj) 60 mg Q12 SQ 10/28/16 11:00 11/27/16 10:59 10/28/16 20:48 60 MG
[2016-10-29] MEDS ORDERED: FLV400 PO (11:57)
[2016-10-29] MEDS ORDERED: CMD5 PO (11:57)
[2016-10-29] MEDS ORDERED: LVNIS60 SQ (11:57)
[2016-10-29] MEDS ORDERED: ATRINS INH (11:57)
[2016-10-29] MEDS ORDERED: ACET325T96 PO (11:57)
[2016-10-29] MEDS ORDERED: ERGO500011 PO (11:57)
[2016-10-29] MEDS ORDERED: NICO7DIS10 TD (11:57)
[2016-10-29] MEDS ORDERED: TPRSR50 PO (11:57)
[2016-10-29] MEDS ORDERED: FRRS300 PO (11:57)
[2016-10-29] MEDS ORDERED: LNX125 PO (11:57)
[2016-10-29] MEDS ORDERED: XPNINS INH (11:57)
[2016-10-29] MEDS ORDERED: ASPEC81 PO (11:57)
[2016-10-29] MEDS: ENOXAPARIN 60 MG/0.6 ML SYR SQ SCH (12:17)
[2016-10-29] MEDS: METOPROLOL SUCC 50MG EXT REL TAB PO SCH (12:17)
[2016-10-29 12:20] VITALS: BP 120/81; PULSE 83; TEMP 36.6; O2SAT 95
--- NOTE | 2016-10-29 12:25 | Discharge Instructions ---
Discharge Instructions Date of Service Oct 29, 2016. Admission Reason for Admission: Afib, Closed Fracture Of Right Proximal Humerus, Discharge Discharge Diagnosis / Problem: RIGHT HUMERUS FRACTURE,CHRONIC ATRIAL FIBRILLATION, PLEURAL EFFUSIONS Discharge Goals Goal(s): Decrease discomfort, Improve function, Improve disease control Activity Recommendations Activity Limitations: as noted below (No ROM of the shoulder for 2 weeks. Non weightbearing RUE) . Instructions / Follow-Up Instructions / Follow-Up Discharge to rehab today to [facility] (case discussed with Dr. Hadley at [facility] Phone # [phone]) Schedule follow up appointment to your physician once you discharge from rehab Schedule follow up appointment with pulmonology Dr. Rosen in 2 to 4 weeks [address], [address], [place] [address] Schedule follow up appointment with Cardiology Dr. Valdez once discharge to Rehab Follow up with Ortho with Dr. Clayton in 2 weeks. Please Call to schedule for appointment [phone] Torsemide was discontinued due to low blood pressure. Ok to give diuretic PRN if become edematous. Continue PT/OT Fall precaution No ROM of the shoulder for 2 weeks. Non weightbearing RUE. Counseling on smoking cessation Continue Lovenox Subq until INR is therapeutic Current Hospital Diet Patient's current hospital diet: AHA Diet (Heart Healthy) Discharge Diet Recommended Diet: AHA Diet (Heart Healthy) Procedures Procedures Performed: Right Proximal Humerus Open Reduction Internal Fixation Left Sided Thoracentesis Pending Studies Studies pending at discharge: yes List of pending studies: Acid fast stain pleural fluid Laboratory Results Lipid Panel Test 08/16/16 04:15 Range/Units Triglycerides Level 61 0-150 mg/dl Cholesterol Level 214 H 0-200 mg/dl HDL Cholesterol 79 mg/dl Cholesterol/HDL Ratio 2.7 LDL Cholesterol, Calculated 123 mg/dl Medical Emergencies . Who to Call and When: Medical Emergencies: If at any time you feel your situation is an emergency, please call 911 immediately. . Non-Emergent Contact Non-Emergency issues call your: Primary Care Provider Call Non-Emergent contact if: you have a fever, your pain is not controlled, your pain is worsening, you have any medication questions . . "Provider Documentation" section prepared by Renata Vasques. . Steam Plant Operator Recommendations Steam Plant Operator Recommendations: Daily dressing changes. If wound remains dry, may leave to the open air Maintain sling on RUE at all times. May loosen for bathing/dressing. May loosen for elbow/wrist discomfort or to readjust. No ROM of the shoulder for [address] Clayton to order shoulder PT after 1st post op visit. Non weightbearing RUE. May use Platform walker if she can maintain NWB status on the RUE F/U with Dr. Clayton in 2 weeks from the day of surgery. Call for appointment. [phone] VTE Core Measure Inpt VTE Proph given/why not?: Enoxaparin (Lovenox)SQ, Warfarin (Coumadin), SCD 's
--- NOTE | 2016-10-31 09:28 | Discharge Summary ---
Discharge Summary Date of Service Oct 31, 2016. Discharge Summary Admission Date: October 09, 2016 at 12:52 Discharge Date: Oct 29, 2016 Discharge Disposition: Rehab Principal Diagnosis: RIGHT HUMERUS FRACTURE Secondary Diagnoses/Problems: RIGHT HUMERUS FRACTURE CHRONIC ATRIAL FIBRILLATION PLEURAL EFFUSIONS LEUKOCYTOSIS CHEST PAIN CHRONIC AFIB HTN HYPOTENSION PULMONARY EDEMA HYPONATREMIA VITAMIN D DEFICIENCY / OSTEOPOROSIS S/P FALLS HYPOKALEMIA HYPOMAGNESEMIA ALCOHOL ABUSE / DELIRIUM TREMENS Procedures: ORIF right proximal humerus by Dr. Clayton 10/11/16 Cardiac monitoring Intravenous fluids Intravenous medications Echocardiogram CT head CT upper extremity CTA chest Ultrasound liver PT OT . Consultations: Ortho CCM Cardiology . Medication Reconciliation New Medications: Acetaminophen Tab (Tylenol) 325 Mg Tab 650 MG PO Q6H PRN for Pain or Fever for 7 Days, #56 TAB Aspirin (Aspirin EC Low Dose) 81 Mg Ectab 81 MG PO QAM for 30 Days Digoxin (Digoxin) 0.125 Mg Tab 0.125 MG PO DAILY@16 for 30 Days, TAB Enoxaparin (Enoxaparin Sodium) 60 Mg/0.6 Ml Inj 60 MG SQ Q12 for 7 Days Ergocalciferol (Vitamin D 72648 Unit) 50,000 Unit Cap 37530 INTERUNIT PO Q7D, #10 CAP Ferrous Sulfate (Ferrous Sulfate) 325 Mg Tab 325 MG PO DAILY@1200 for 30 Days, TAB Folic Acid (Folic Acid) 400 Mcg Tab 400 MCG PO QAM for 30 Days, #30 TAB Ipratropium [place] (Ipratropium [place]) 0.5 Mg/2.5 Ml Nebu 0.5 MG INH Q6H PRN for SOB/Wheezing for 7 Days Levalbuterol (Levalbuterol HCl) 0.63 Mg/3 Ml Nebu 0.63 MG INH Q6H PRN for SOB/Wheezing for 7 Days Metoprolol Succinate (Metoprolol Succinate ER) 50 Mg Tabcr 50 MG PO BID for 30 Days Nicotine (Nicotine) 7 Mg/24 Hr Dis 1 PATCH TD QAM for 30 Days Warfarin Sod (Coumadin) 5 Mg Tab 10 MG PO DAILY@16 for 30 Days, TAB Continued Medications: Albuterol Sulfate (Proair Respiclick) 108 Mcg/Act Aer 2 PUFFS INH Q4 PRN for WHEEZING/COUGH Citalopram Hydrobromide (Celexa) 20 Mg Tab 20 MG PO QAM, TAB Lorazepam (Ativan) 1 Mg Tab 1 MG PO Q8H PRN for Anxiety, TAB Magnesium Oxide (Mag-Ox) 400 Mg Tab 400 MG PO QAM Thiamine Hcl (Vitamin B-1) 50 Mg Tab 100 MG PO QAM, TAB Discontinued Medications: Furosemide (Lasix) 40 Mg Tab 20 MG PO UD, TAB MWF Losartan Potassium (Cozaar) 50 Mg Tab 50 MG PO DAILY Metoprolol Tartrate (Metoprolol Tartrate) 50 Mg Tab 100 MG PO BID Warfarin Sod (Coumadin) 2.5 Mg Tab 2.5 MG PO 2XWK monday Warfarin Sodium (Coumadin) 5 Mg Tab 5 MG PO 5XWK everyday but monday and monday Admission Information HPI (per Admitting provider): Patient seen and examined. 61 year old female with PMHx of Afib on Coumadin, HTN , tobacco abuse, essential tremor, h/o breast CA and other problems listed below presents to the ED complaining of shoulder pain following a fall prior arrival. Patient reports history of multiple falls. She states that she becomes dizzy from her afib. This weekend she reports she became dizzy and fell hitting her head. She reports a few seconds of LOC. Last night she got out of bed to use the bathroom. As she began walking she became dizzy and fell striking her right shoulder. She immediately had significant pain in the right shoulder. She went back to bed but this morning the pain persisted so she went to urgent care and was referred to the ED for further evaluation. She reports that she feels palpitations relatively often and they do seem to be more significant during her episodes of dizziness. She reports currently the pain in her right shoulder is like muscle spams and she rates it as a 9/10. She denies fevers, chills, chest pain, SOB, numbness/tingling, nausea, vomiting, diarrhea, dysuria, calf pain and edema. She did not take any of her medications this morning. She drinks 2-3 beers per day last drink was yesterday. In the ED patient was tachycardic. She became hypoxic. INR was 1.6, Na+ is chronically low, Mg was 1.6 , Troponin was 0.759. CT head was negative for acute processes. CXR showed possible congestion. Humerus XR showed right humerus fracture. She received Ativan, IVFs, pain meds and magnesium. She will be admitted for further workup and treatment. Physical Exam (per Admitting): General Appearance: + pertinent finding (WD/WN 61 year old female lying in bed in NAD with at bedside ) Head: normocephalic, atraumatic Eyes: PERRL, EOMI, sclerae normal ENT: hearing grossly normal, pharynx normal Neck: supple, no JVD Respiratory/Chest: chest non-tender, lungs clear, normal breath sounds, no respiratory distress, no accessory muscle use Cardiovascular: no edema, no gallop, no JVD, normal peripheral pulses, + systolic murmur, + irregularly irregular Abdomen/GI: normal bowel sounds, non tender, soft Back: normal inspection Extremities/Musculoskelatal: no calf tenderness, normal capillary refill, no pedal edema, + pertinent finding (Sling to right arm, pulses, sensation intact, moves fingers appropriately. ) Neurologic/Psych: alert, oriented x 3, + pertinent finding (essential tremor noted otherwise nonfocal ) Skin: normal color, warm/dry, no rash Lymphatic: no adenopathy Hospital Course LEUKOCYTOSIS WBC improved from 26K to 12K yesterday Afebrile, no signs of infection CXR showed no infiltrate Completed 7 day course of antibiotics for suspected aspiration pneumonia. UA negative and procalcitonin normal if becomes febrile, will check blood cx if develops any diarrhea, will send stool for Cdiff Continue monitor CBC Stable CHEST PAIN CTA negative for PE. CM are negative Asymptomatic currently Resolved CHRONIC ATRIAL FIBRILLATION Rate is between 95 - 110 On Digoxin 125mcg / metoprolol 50mg BID unable to increase metoprolol due to low BP Continue Coumadin. INR today = 1.5 (INR goal btw 2-3) Lovenox resume to continue until INR is therapeutic cardiology on board Case discussed with Dr. Drake recommended to continue metoprol and digoxin with the current dose PULMONARY EDEMA Pulmonary edema noted on CT of chest 10/16/16. Echo on 10/10/16 demonstrated normal left ventricular wall motion and systolic function. Pulmonary edema most likely secondary to fluid overload / acute on chronic left ventricular diastolic heart failure. Furosemide changed to torsemide repeat CT chest today showed mall left pleural effusion, tace right pleural effusion. Moderate cardiomegaly and trace pericardial effusion Torsemide was discontinued today because of low BP Pt has a normal EF no need to continue the torsemide if she becomes edematous we can do the torsemide PRN Case discussed with Dr. Drake clinically improved HYPERTENSION / HYPOTENSION Blood pressure in the low side. Unable to do blood pressures in right arm due to humerus fracture. Unable to perform BP's in left arm due to axillary node dissection. Losartan discontinued. Torsemide discontinued Continue metoprolol succinate 50 mg twice a day with parameter Asymptomatic Continue monitor PLEURAL EFFUSIONS Probably secondary to fluid overload. CXR large left pleural effusion. ' Pulmonary on board and thoracentesis done where 600 ml of fluid removed Furosemide changed to torsemide Torsemide was discontinued today because of low BP Repeat CXR post thoracentesis showed no significant postprocedural pneumothorax. Left pleural effusion decrease in volume pleural fluid culture no growth, Gram stain: many WBC noted but no organisms pleural fluid analysis suggest simple parapneumonic effusion. No signs of infection Follow up with Pulmonary Dr. Rosen in 2 to 4 weeks continue monitor POSSIBLE PNEUMONIA / ATELECTASIS Imaging by routine chest films and CT showed pulmonary densities, atelectasis versus pneumonia. Completed abx course Asymptomatic Stable HYPONATREMIA Sodium 10/23 was 135. Sodium 131 yesterday Probable SIADH. Fluid restrict. Continue monitor HYPOKALEMIA Stable Continue monitor K HYPOMAGNESEMIA Stable Continue monitor electrolytes FRACTURE RIGHT HUMERUS S/P ORIF by Dr. Clayton 10/11. Mykel removed 10/25/16. Continue OT. No ROM of the shoulder for 2 weeks. Non weightbearing RUE. F/U with Dr. Clayton in 2 weeks from the day of surgery. VITAMIN D DEFICIENCY / OSTEOPOROSIS Rx with calcium + vitamin D. 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 Alcohol intoxication likely contributing factor. PT / OT. Stable ALCOHOL ABUSE / DELIRIUM TREMENS Experienced severe alcohol withdrawal symptoms. Initially received gabapentin and lorazepam per protocol. Subsequently received dexmedetomidine and chlordiazepoxide. Symptoms improved Continue thiamine, folate, multivitamins. Problems related to alcoholism discussed with patient and her . Will need ongoing counseling. stable TOBACCO ABUSE Tobacco cessation counseling. Continue nicotine patch DEPRESSION Continue citalopram. Stable VTE PROPHYLAXIS Continue SQ enoxaparin until INR therapeutic. Ambulate. DISPOSITION Will discharge to rehab today for PT Case Management consulted. Family medicine follow-up with Dr. Min. Total time spent on discharge = 45 minutes This includes examination of the patient, discharge planning, medication reconciliation, and communication with other providers. Discharge Instructions Discharge Instructions Date of Service Oct 29, 2016. Admission Reason for Admission: Afib, Closed Fracture Of Right Proximal Humerus, Discharge Discharge Diagnosis / Problem: RIGHT HUMERUS FRACTURE,CHRONIC ATRIAL FIBRILLATION, PLEURAL EFFUSIONS Discharge Goals Goal(s): Decrease discomfort, Improve function, Improve disease control Activity Recommendations Activity Limitations: as noted below (No ROM of the shoulder for 2 weeks. Non weightbearing RUE) . Instructions / Follow-Up Instructions / Follow-Up Discharge to rehab today to [facility] (case discussed with Dr. Hadley at [facility] Phone # [phone]) Schedule follow up appointment to your physician once you discharge from rehab Schedule follow up appointment with pulmonology Dr. Rosen in 2 to 4 weeks [address], [address], [place] [id number] Schedule follow up appointment with Cardiology Dr. Valdez once discharge to Rehab Follow up with Ortho with Dr. Clayton in 2 weeks. Please Call to schedule for appointment [phone] Torsemide was discontinued due to low blood pressure. Ok to give diuretic PRN if become edematous. Continue PT/OT Fall precaution No ROM of the shoulder for 2 weeks. Non weightbearing RUE. Counseling on smoking cessation Continue Lovenox Subq until INR is therapeutic Current Hospital Diet Patient's current hospital diet: AHA Diet (Heart Healthy) Discharge Diet Recommended Diet: AHA Diet (Heart Healthy) Procedures Procedures Performed: Right Proximal Humerus Open Reduction Internal Fixation Left Sided Thoracentesis Pending Studies Studies pending at discharge: yes List of pending studies: Acid fast stain pleural fluid Laboratory Results Lipid Panel Test 08/16/16 04:15 Range/Units Triglycerides Level 61 0-150 mg/dl Cholesterol Level 214 H 0-200 mg/dl HDL Cholesterol 79 mg/dl Cholesterol/HDL Ratio 2.7 LDL Cholesterol, Calculated 123 mg/dl Medical Emergencies . Who to Call and When: Medical Emergencies: If at any time you feel your situation is an emergency, please call 911 immediately. . Non-Emergent Contact Non-Emergency issues call your: Primary Care Provider Call Non-Emergent contact if: you have a fever, your pain is not controlled, your pain is worsening, you have any medication questions . . "Provider Documentation" section prepared by Renata Vasques. . Database Specialist Recommendations Database Specialist Recommendations: Daily dressing changes. If wound remains dry, may leave to the open air Maintain sling on RUE at all times. May loosen for bathing/dressing. May loosen for elbow/wrist discomfort or to readjust. No ROM of the shoulder for [address] Clayton to order shoulder PT after 1st post op visit. Non weightbearing RUE. May use Platform walker if she can maintain NWB status on the RUE F/U with Dr. Clayton in 2 weeks from the day of surgery. Call for appointment. [phone] VTE Core Measure Inpt VTE Proph given/why not?: Enoxaparin (Lovenox)SQ, Warfarin (Coumadin), SCD 's Signed: Signed: The status of this report is Draft Additional [facility] To [facility] VillageJulius Crenshaw M.D.
== END 2016-10-29 14:05 | DRG 492 ==
LOC: ENRESERVDT → CANRESERV → ENRESERVTM → C.EDB 10:27 → C.2T 12:52 → C.MSICU 10-11 19:33 → C.2T 10-13 09:45 → C.MSN 10-15 14:21 → C.2T 10-16 15:07 → C.MSN 10-23 13:32 → EDBEDREQ 10-23 13:49 → ENRESERV 10-23 14:02 → C.2T 10-25 10:50
PROVIDERS: ADMIT Hospitalist; ATTEND Internal Medicine
PROC: 0PSF04Z Reposition Right Humeral Shaft with Internal Fixation Device, Open Approach (ICD-10-PCS; principal; 2016-10-11 08:45)
PROC: 0W9B3ZZ Drainage of Left Pleural Cavity, Percutaneous Approach (ICD-10-PCS; 2016-10-27)
DX: S42.201A Unspecified fracture of upper end of right humerus, initial encounter for closed fracture (principal); I50.33 Acute on chronic diastolic (congestive) heart failure; J69.0 Pneumonitis due to inhalation of food and vomit; I48.1 Persistent atrial fibrillation; E87.1 Hypo-osmolality and hyponatremia; J90 Pleural effusion, not elsewhere classified; F10.231 Alcohol dependence with withdrawal delirium; I11.0 Hypertensive heart disease with heart failure; F17.210 Nicotine dependence, cigarettes, uncomplicated; G25.0 Essential tremor; R09.02 Hypoxemia; R55 Syncope and collapse; E83.42 Hypomagnesemia; R26.9 Unspecified abnormalities of gait and mobility; I08.3 Combined rheumatic disorders of mitral, aortic and tricuspid valves; F43.23 Adjustment disorder with mixed anxiety and depressed mood; G47.00 Insomnia, unspecified; E55.9 Vitamin D deficiency, unspecified; I95.9 Hypotension, unspecified; D72.829 Elevated white blood cell count, unspecified; M81.0 Age-related osteoporosis without current pathological fracture; E87.6 Hypokalemia; E88.09 Other disorders of plasma-protein metabolism, not elsewhere classified; E86.1 Hypovolemia; E78.5 Hyperlipidemia, unspecified; Z79.899 Other long term (current) drug therapy; Z79.01 Long term (current) use of anticoagulants; Z83.3 Family history of diabetes mellitus; Z82.49 Family history of ischemic heart disease and other diseases of the circulatory system; Z80.3 Family history of malignant neoplasm of breast; Z88.2 Allergy status to sulfonamides; Z85.038 Personal history of other malignant neoplasm of large intestine; Z85.3 Personal history of malignant neoplasm of breast; Z98.51 Tubal ligation status; W19.XXXA Unspecified fall, initial encounter; Z86.010 Personal history of colon polyps

== ENCOUNTER → 2017-02-08 | Outpatient (CLI) | payer OTHER ==
[~2017-02-08] MED LIST changes: +ACET325T96 PO; +ASPEC81 PO; +ATRINS INH; +CHOL100010 PO; -CMD125 PO; +CMD5 PO; -ENOX100I SQ; +ERGO1CAP41 PO; +FLV400 PO; +FRRS300 PO; +LNX125 PO; +LVNIS60 SQ; -METO50TA16 PO; +NICO7DIS10 TD; -PRED10TA PO; +TPRSR50 PO; +WARF-246 PO; +XPNINS INH
--- NOTE | 2017-02-08 12:26 | DIAGNOSTIC IMAGING REPORT ---
CHEST 2 VIEWS ROUTINE CLINICAL HISTORY: R91.[address] scan of lungTo be done one week prior to CERAD dyspnea COMPARISON STUDY: 10/27/2016 FINDINGS: Mild decrease in cardiac size. Cardiac size currently is top normal. Diaphragms are smooth. Lungs are clear. Stable postoperative changes right humerus. Degenerative changes thoracic spine stable. IMPRESSION: No acute process. Lungs are considered clear at this time. The above report was generated using voice recognition software. It may contain grammatical, syntax or spelling errors. Electronically signed by: Baltazar Chisholm M.D. 02/08/2017 12:25 PM Dictated Date/Time: 02/08/2017 12:24 PM
== END | disposition home or self-care (01) ==
LOC: C.RAD 11:47
PROVIDERS: ATTEND Physician Assistant
DX: R91.8 Other nonspecific abnormal finding of lung field (principal)

== ENCOUNTER 2017-02-26 11:34 | Emergency (ER) | payer OTHER ==
[~2017-02-26] VITALS: Ht 160 cm; Wt 66.1 kg
[~2017-02-26 11:34] MED LIST changes: -CHOL100010 PO; -WARF-246 PO
[2017-02-26 11:41] VITALS: Ht 160 cm; Wt 66.1 kg
[2017-02-26] MEDS ORDERED: CHOL100010 PO (12:23)
[2017-02-26] MEDS ORDERED: WARF-246 PO (12:23)
[2017-02-26] MEDS ORDERED: SODIUM CHLORIDE 0.9% 500ML 500 ML IV STA (12:38)
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
[2017-02-26 13:28] LABS: BASO % 0.3 %; BASO ABS # 0.03 K/uL (0-0.2); COMPLETE YES; EOS % 0.2 %; HEMATOCRIT 41.7 % (37-47); IG% 0.3 %; LYMPH % 19.3 %; LYMPH ABS # 2.07 K/uL (1.2-3.4); MEAN CELL VOLUME 92.7 fL (80-100); MEAN CORPUSCULAR HEMOGLOBIN 32.9 pg (25-34); MEAN CORPUSCULAR HGB CONC 35.5 g/dl (32-36); MEAN PLATELET VOLUME 9.6 fL (7.4-10.4); NEUT % 71.9 %; PLATELET COUNT 209 K/uL (130-400); WHITE BLOOD COUNT 10.75 K/uL (4.8-10.8)
[2017-02-26 13:30] LABS: INR 3.2 (0.9-1.1); PROTHROMBIN TIME (PATIENT) 35.9 SECONDS (9.0-12.0)
[2017-02-26 13:40] LABS: BUN/CREATININE RATIO 15.6 (10-20); CALCIUM 9.5 mg/dl (8.5-10.1); CREATININE 0.46 mg/dl (0.60-1.20); POTASSIUM 4.3 mmol/L (3.5-5.1)
--- NOTE | 2017-02-26 14:17 | DIAGNOSTIC IMAGING REPORT ---
HEAD WITHOUT CONTRAST (CT) CLINICAL HISTORY: 61 years-old Female presenting with head ache fall on coumadin. TECHNIQUE: Multidetector CT imaging of the head was performed without the use of intravenous contrast. IV contrast: None. A dose lowering technique was used consistent with the principles of ALARA (as low as reasonably achievable). COMPARISON: 10/16/2016. CT DOSE (mGy.cm): The estimated cumulative dose is 537.48 mGy.cm. FINDINGS: Sales Architect topogram: Unremarkable. Ventricles and sulci normal in size. Brain parenchyma normal in appearance with preserved robertson-white differentiation. No mass effect or midline shift. No hemorrhage or acute territorial infarct. No extra-axial fluid collection. Paranasal sinuses and mastoid air cells clear. Calvarium intact. IMPRESSION: 1. No acute intracranial pathology. Electronically signed by: Emerson Tovar M.D. 02/26/2017 2:16 PM Dictated Date/Time: 02/26/2017 2:15 PM
--- NOTE | 2017-02-26 15:27 | DIAGNOSTIC IMAGING REPORT ---
L FEMUR 2 VIEWS ROUTINE CLINICAL HISTORY: 61 years-old Female presenting with pain bruising, fall. TECHNIQUE: Frontal and lateral views of the left femur were obtained. COMPARISON: None. FINDINGS: Osteopenia suspected. This limits evaluation for nondisplaced fracture. Left hip joint congruent. Osteophytosis noted along the inferior aspect of the hip joint, evidence of mild degenerative change. No joint space loss. No evidence of a displaced femoral neck fracture. Remainder of the left femur is also normal. Knee joint congruent. IMPRESSION: No acute osseous injury of the left femur. Mild degenerative changes of the left hip. Electronically signed by: Emerson Tovar M.D. 02/26/2017 3:26 PM Dictated Date/Time: 02/26/2017 3:24 PM
--- NOTE | 2017-02-26 15:30 | DIAGNOSTIC IMAGING REPORT ---
R SHOULDER MIN 2 VIEWS ROUTINE CLINICAL HISTORY: 61 years-old Female presenting with pain after fall. TECHNIQUE: Internal rotation, external rotation, and Grashey views of the right shoulder were obtained. COMPARISON: 10/24/2016. FINDINGS: Postsurgical changes of cortical compression plate and screw fixation of the right humeral head and proximal metadiaphysis areas smooth sclerotic fracture plane evident with incomplete bridging callus formation most pronounced along the anteromedial aspect. Some bridging ossification is present posteriorly. The humeral head remains congruent with the osseous glenoid. Acromioclavicular joint congruent. IMPRESSION: No acute osseous injury. Incomplete bridging across the prior right humeral neck fracture. No hardware breakage. Electronically signed by: Emerson Tovar M.D. 02/26/2017 3:28 PM Dictated Date/Time: 02/26/2017 3:26 PM
--- NOTE | 2017-02-26 15:32 | DIAGNOSTIC IMAGING REPORT ---
R FEMUR 2 VIEWS ROUTINE CLINICAL HISTORY: 61 years-old Female presenting with pain bruising. TECHNIQUE: Frontal and lateral views of the right femur were obtained. COMPARISON: None. FINDINGS: Right hip joint congruent. No acute osseous injury of the right femur. Osteopenia may be present, which limits evaluation for nondisplaced fracture. Joint space at the hip is preserved. Minimal osteophytosis may be present, evidence of degenerative change. Knee joint grossly congruent. IMPRESSION: No acute osseous injury of the right femur. Electronically signed by: Emerson Tovar M.D. 02/26/2017 3:30 PM Dictated Date/Time: 02/26/2017 3:28 PM
--- NOTE | 2017-02-26 16:07 | DIAGNOSTIC IMAGING REPORT ---
CHEST ONE VIEW PORTABLE CLINICAL HISTORY: 61 years-old Female presenting with chest pain, fall. TECHNIQUE: Portable upright AP view of the chest was obtained. COMPARISON: 02/08/2017. FINDINGS: Atherosclerosis of the aortic arch. Mild prominence of the cardiac silhouette, unchanged. Lungs and pleural spaces clear. Internal fixation hardware in the right humerus. Degenerative changes of the spine. Upper abdomen normal. IMPRESSION: 1. No acute cardiopulmonary disease. Electronically signed by: Emerson Tovar M.D. 02/26/2017 4:05 PM Dictated Date/Time: 02/26/2017 4:04 PM
[2017-02-26 18:08] VITALS: BP 143/90; PULSE 74; TEMP 37; O2SAT 97
== END 2017-02-26 18:09 | disposition home or self-care (01) ==
LOC: C.EDB 11:35
DX: S70.12XA Contusion of left thigh, initial encounter (principal); S70.11XA Contusion of right thigh, initial encounter; S40.011A Contusion of right shoulder, initial encounter; S00.12XA Contusion of left eyelid and periocular area, initial encounter; S00.83XA Contusion of other part of head, initial encounter; W28.XXXA Contact with powered lawn mower, initial encounter; Y93.H2 Activity, gardening and landscaping; Y92.007 Garden or yard of unspecified non-institutional (private) residence as the place of occurrence of the external cause; I48.91 Unspecified atrial fibrillation; F17.210 Nicotine dependence, cigarettes, uncomplicated; F10.20 Alcohol dependence, uncomplicated; D12.6 Benign neoplasm of colon, unspecified; F32.9 Major depressive disorder, single episode, unspecified; F41.9 Anxiety disorder, unspecified; Z79.01 Long term (current) use of anticoagulants; Z79.82 Long term (current) use of aspirin; Z85.3 Personal history of malignant neoplasm of breast; Z90.12 Acquired absence of left breast and nipple; Z98.51 Tubal ligation status; Z83.3 Family history of diabetes mellitus; Z82.49 Family history of ischemic heart disease and other diseases of the circulatory system; Z80.3 Family history of malignant neoplasm of breast

== ENCOUNTER → 2017-04-04 | Outpatient (CLI) | payer OTHER ==
[~2017-04-04] MED LIST changes: +CHOL100010 PO; -CMD5 PO; -ERGO1CAP41 PO; -LVNIS60 SQ; -NICO7DIS10 TD; +WARF-246 PO
--- NOTE | 2017-04-04 15:31 | PULMONARY FUNCTION TEST ---
Interpretation is based of ATS criteria. SPIROMETRY: Mild obstructive ventilatory disease. BRONCHODILATOR: Intermediate response based of FVC standards. LUNG VOLUMES: Within normal limits. DIFFUSION CAPACITY: Moderately reduced at 52%, but corrects off alveolar volume to 104%. INTERPRETATION: Prebronchodilator spirometry suggests mild obstructive ventilatory disease and post suggests normal obstruction/ventilation. There is a component of reversibility noted. The moderate drop in DLCO does suggest possible underlying pulmonary vascular disorder. Clinical correlation required.
== END | disposition home or self-care (01) ==
LOC: C.RC 10:50
PROVIDERS: ATTEND Physician Assistant
DX: Z72.0 Tobacco use (principal); R06.09 Other forms of dyspnea; R05 Cough; R91.8 Other nonspecific abnormal finding of lung field

== ENCOUNTER → 2017-08-08 | Outpatient (CLI) | payer OTHER ==
[~2017-08-08] MED LIST changes: +ACET-1693 PO; -ACET325T96 PO
--- NOTE | 2017-08-08 10:52 | DIAGNOSTIC IMAGING REPORT ---
CHEST 2 VIEWS ROUTINE HISTORY: 62 years-old Female J30.9, R05 acute cough with allergic rhinitis COMPARISON: Chest CT 03/27/2017, chest radiograph 02/26/2017 TECHNIQUE: PA and lateral views of the chest FINDINGS: Cardiac silhouette is mildly enlarged. Atherosclerosis of the aorta. There is no pneumothorax, pleural effusion, focal airspace consolidation or overt pulmonary edema. ORIF changes with plate and screw hardware of the proximal right humerus. Bones appear grossly intact. Remote appearing compression deformity of the T12 vertebral body is unchanged. IMPRESSION: No acute process. The above report was generated using voice recognition software. It may contain grammatical, syntax or spelling errors. Electronically signed by: Isidoro Lyle M.D. 08/08/2017 10:51 AM Dictated Date/Time: 08/08/2017 10:48 AM
== END | disposition home or self-care (01) ==
LOC: C.RAD1850 10:28
PROVIDERS: ATTEND Physician Assistant
DX: J30.9 Allergic rhinitis, unspecified (principal); R05 Cough

== ENCOUNTER 2018-11-23 01:56 | Inpatient (IN) ==
--- OUTSIDE RECORDS SUMMARY | 2018-11-23 02:00 | External Medical Summary | Continuity of Care Document ---
:1955 Author Name Mildred Mccracken, Provider Address Unavailable Unavailable , Care Team Providers Name Role Phone Loreta Walls PA-C Unavailable [email or web address] REENA HERRERA Ameya Unavailable Unavailable Unavailable Unavailable Unavailable Problems Cough (786.2) (R05) Chronic cough (786.2) (R05) Allergic rhinitis (477.9) (J30.9) Abnormal CT scan of lung (793.19) (R91.8) Chronic obstructive pulmonary disease (496) (J44.9) Chronic atrial fibrillation (427.31) (I48.2) Benign neoplasm of colon (211.3) (D12.6) Essential hypertension (401.9) (I10) Depression with anxiety (300.4) (F41.8) Carcinoma of left breast (174.9) (C50.912) Dyspnea on exertion (786.09) (R06.09) Tobacco use (305.1) (Z72.0) Allergies and Adverse Reactions Sulfa Drugs (Allergy) Medications LORazepam 1 MG Oral Tablet; TAKE 1 TABLET 3 TIMES DAILY N EEDED. Start: 17-Nov-2016 Refills: 0 Folic Acid 400 MCG Oral Tablet; TAKE 1 TABLET DAILY DIREC WILLIAM. Start: 17-Nov-2016 Refills: 0 Vitamin D (Ergocalciferol) 61438 UNIT Or al Capsule; TAKE ONE CAPSULE BY MOUTH ONCE A WEEK Start: 17-Nov-2016 Quantity: 4 Refills: 5 Digoxin 125 MCG Oral Tablet; TAKE 1 TABLET BY MOUTH DAILY Start: 04-Aug-2017 Refills: 0 Symbicort 80-4.5 MCG/ACT Inhalation Aero jerica; INHALE 2 PUFFS TWICE DAILY. RINSE MOUTH AFTER USE. SAMI Walls Start: 05-Apr-2017 Quantity: 1 10.2 GM Inhaler Refills: 5 Breo Ellipta 100-25 MCG/INH Inhalation A erosol Powder Breath Activated; USE 1 INHALATION ONCE DAILY. SAMI Walls Start: 09-Nov-2017 Quantity: 1 60 Inhaler Pack Refills: 1 Montelukast Sodium 10 MG Oral Tablet; TAKE 1 TABLET AT BEDTIME. SAMI Walls Start: 04-Aug-2017 Quantity: 1 30 Tablet Bottle Refills: 0 Acetaminophen 325 MG Oral Tablet; TAKE 1 TO 2 TABLETS EVERY 6 HOURS NEEDED. Start: 17-Nov-2016 Refills: 0 Aspirin EC Low Dose 81 MG Oral Tablet Delayed Release; TAKE 1 TABLET DAILY. Start: 17-Nov-2016 Refills: 0 Ferrous Sulfate 325 (65 Fe) MG Oral Tablet; TAKE 1 TABLET DA RAYMOND. Start: 17-Nov-2016 Refills: 0 Metoprolol Succinate ER 50 MG Oral Table t Extended Release 24 Hour; TAKE 1 TABLET BY MOUTH TWICE DAILY Start: 17-Nov-2016 Refills: 0 Warfarin Sodium 5 MG Oral Tablet; TAKE DIRECTED. Start: 17-Nov-2016 Refills: 0 90 Tablet Bottle ProAir RespiClick 108 (90 Base) MCG/ACT Inhalation Aerosol Powder Breath Activated; 2 puffs every 4 hours as needed Start: Refills: 0 Magnesium Oxide 400 MG Oral Tablet; TAKE 1 TABLET DAILY. Start: 17-Nov-2016 Quantity: 90 Refills: 3 Thiamine 50 MG Oral Capsule; TAKE 2 TABLETS BY MOUTH DAILY I N THE AM Start: 17-Nov-2016 Refills: 0 Furosemide TABS; take 1 tablet 3 times weekly Refills: 0 Citalopram Hydrobromide 20 MG Oral Tablet; TAKE 1 TABLET ISRA LY. Start: 17-Nov-2016 Refills: 0 30 Tablet Bottle Procedures History of lumpectomy Status: Completed History of section Status: Comp leted History of mastectomy partial Status: Co mpleted History of tubal ligation Status: Comple william Immunizations Td (adult), adsorbed tetanus and diphtheria toxoids On: pneumococcal vaccine, unspecified formulation On: 27-Dec-2011 Influenza On: 30-Mar-2016 Family History Mother Family history of atrial fibrillation (V17.49) (Z82.49) Stat us: Active Family history of hypertension (V17.49) (Z82.49) Status: Act alfredo Family history of cardiac pacemaker (V17.49) (Z82.49) Status : Active Family history of cardiac disorder (V17.49) (Z82.49) Status: Active Sister Family history of malignant neoplasm of breast (V16.3) (Z80. 3) Status: Active aunt Family history of malignant neoplasm of breast (V16.3) (Z80. 3) Status: Active Father Family history of diabetes mellitus (V18.0) (Z83.3) Status: Active Social History - Smoking Status Current every day smoker Plan of Treatment Planned Observations Planned Goals not documented Results No Known Results Results not documented Encounters Appointment; Loreta Walls PA-C 09-Nov-2017 11:30 Encounter Diagnosis: Problem not documented Appointment; Loreta Walls PA-C 04-Aug-2017 9:00 Encounter Diagnosis: Problem not documented Appointment; Loreta Walls PA-C 05-May-2017 10:45 Encounter Diagnosis: Problem not documented Appointment; Loreta Walls PA-C 05-Apr-2017 11:00 Encounter Diagnosis: Problem not documented
[2018-11-23 02:38] LABS: Basophils # (auto) 0.01 K/uL (0-0.2); Basophils % (auto) 0.1 %; Hematocrit (blood only) 33.5 % (37-47); Immature Granulocytes # (auto) 0.04 K/uL (0.00-0.02); Immature Granulocytes % (auto) 0.4 %; Lymphocytes # (auto) 1.01 K/uL (1.2-3.4); Lymphocytes % (auto) 8.9 %; Mean Corpuscular Hgb Conc 35.8 g/dL (32-36); Mean Platelet Volume 11.3 fL (7.4-10.4); Monocytes # (auto) 1.29 K/uL (0.11-0.59); Monocytes % (auto) 11.4 %; Neutrophils # (auto) 8.97 K/uL (1.4-6.5); Neutrophils % (auto) 79.2 %; Platelet Count 115 K/uL (130-400); RDW Coefficient of Variation 13.5 % (11.5-14.5); RDW Standard Deviation 46.9 fL (36.4-46.3); Red Blood Count 3.49 M/uL (4.2-5.4); White Blood Count 11.32 K/uL (4.8-10.8)
[2018-11-23 02:48] LABS: INR 2.2 (0.9-1.1); Partial Thromboplastin Ratio 1.4; Partial Thromboplastin Time 36.9 Seconds (21.0-31.0); Prothrombin Time 20.9 Seconds (9.0-12.0)
[2018-11-23 03:03] LABS: Appearance Urine Cloudy (Clear); Bacteria Urine Automated 4+ (Negative); Bilirubin Urine Negative (Negative); Blood Urine Trace (Negative); Color Urine Yellow; Epithelial Cell Urine Auto >30 /lpf (0-5); Glucose Urine UA Negative (Negative); Ketones Urine 1+ (Negative); Leukocyte Esterase Urine 1+ (Negative); Nitrite Urine Negative (Negative); Protein Urine Negative (Negative); RBC Urine Automated 0-4 /hpf (0-4); Specific Gravity Urine 1.009 (1.000-1.030); Urobilinogen Urine Negative (Negative)
[2018-11-23 03:05] LABS: BUN Creatinine Ratio 21.7 (10-20); Calcium 8.2 mg/dl (8.5-10.1); Creatinine Clr Calc Pharmacy 96.9 ml/min; Est GFR (Non-African American) 100.9; Potassium 3.1 mmol/L (3.5-5.1)
[2018-11-23] MEDS ORDERED: fentaNYL citrate 100 MCG/2 ML VIAL IV STA (03:18)
[2018-11-23] MEDS ORDERED: SODIUM CHLORIDE 0.9% 500 ML IV ONE (04:16)
[2018-11-23] MEDS ORDERED: POTASSIUM CHLORIDE 20 MEQ TABCR PO STA ×2 (04:24→06:59)
[2018-11-23] MEDS ORDERED: SODIUM CHLORIDE 0.9% 1000ML 1,000 ML IV SCH (04:30)
--- NOTE | 2018-11-23 04:43 | Emergency Department Note ---
Entered by Aman Feliciano acting as a scribe for Mel Phillips DO History of Present Illness General Chief complaint: Fall Stated complaint: FALL/HIP PAIN Time Seen by Provider: 11/23/18 01:58 Source: patient and EMS History of Present Illness Provider complaint: right sided pain Onset (ago): hour(s) 8 Location: buttocks, lower extremity and right Pain Consistency: + constant Maximum Pain Intensity: 2 Relieved By: + none Exacerbated By: + none Associated symptoms: + denies other symptoms The patient is a 63 y/o female who presents to the emergency department for evaluation following a fall that happened roughly 8 hours ago causing pain to her right side. The patient states that she was drinking at a [employer]vember alliance party with family when she fell off a kitchen stool. She reports that she does not know if she hit her head and that she was able to walk around following the fall. The patient notes she had pain on her right side of her butt but not her back. She reports she went to bed early with the help of her but had increased pain and called EMS. Patient denies back pain, and any other symptoms. Home Medications Home Medications Medication Instructions Recorded Confirmed Type citalopram 20 mg PO QAM 03/15/18 11/23/18 History digoxin 0.125 mg PO QAM 03/15/18 11/23/18 History lorazepam 1 mg PO BID PRN 03/15/18 11/23/18 History metoprolol succinate 50 mg PO BID 03/15/18 11/23/18 History warfarin 5 mg PO UD 03/15/18 11/23/18 History umeclidinium-vilanterol [Anoro 1 ea INHALATION DAILY 11/23/18 11/23/18 History Ellipta] Allergies Allergy/AdvReac Type Severity Reaction Status Date / Time Sulfa (Sulfonamide Allergy Mild RASHES Verified 11/23/18 02:56 Antibiotics) morphine Allergy Rash Verified 11/23/18 04:12 Past Med/Surg History Medical History Anemia Atrial fibrillation Cancer LEFT BREAST (CHEMO AND RADIATION) Chronic obstructive pulmonary disease Hypertension Left ventricular enlargement BEING MONITORED BY ASHLY DUMONT Liver enzyme elevation Migraine Surgical History History of section X1 History of colonoscopy History of left cataract extraction History of partial mastectomy LEFT History of tooth extraction Hx of shoulder surgery RT SHOULDER (S/P FX) Social History Preferred Language: Kiswahili Communication Ability: Effective Beliefs That Will Affect Care: None Current Living Situation: Spouse Feels Safe at Home: Yes Smoking Status: Current every day smoker Tobacco Type: cigarettes Cigarettes Per Day: HX OF 1 PPD Second Hand Exposure: No Hx Alcohol Use: Yes Alcohol type: beer Hx Substance Use: No Review of Systems See HPI for pertinent positives & negatives. and A total of 10 systems reviewed and were otherwise negative Physical Exam Vital Signs Vital Signs - 24 hr 11/23/18 01:56 11/23/18 03:41 11/23/18 04:21 Temperature 36.8 C Temperature Source Oral Sepsis Recent Fever Within 48 Hours No Sepsis New/Unexplained Change in Mental Status No Sepsis Action Taken by Nursing No Action Required Pulse Rate 93 H Pulse Rate [Apical] 107 H 103 H Respiratory Rate 18 20 19 Respiratory Effort / Characteristics Non-Labored Spontaneous Non-Labored Spontaneous Respiratory Depth Normal Normal Respiratory Pattern Regular Regular Blood Pressure 111/69 Blood Pressure [Right Arm] 118/69 108/64 Blood Pressure Mean 83 Blood Pressure Mean [Right Arm] 85 78 Blood Pressure Position [Right Arm] Lying Lying Pulse Oximetry 99 96 99 Oxygen Delivery Method Room Air Room Air Room Air HEENT: Head - normocephalic. Pupils are equal, round, and reactive to light. Extraocular eye muscles are intact, and sclera are anicteric. Contusion along right mandible. Nose - moist nasal mucosa without discharge. Mouth - Dry buccal mucosa. Oropharynx is nonerythematous and there is no tonsillar exudate or edema noted. Lips are dry and cracked. Neck: Supple; no pain to palpation over the posterior cervical spine Heart: Regular rate and rhythm. There is a normal S1 and S2 with no murmurs, clicks, or gallops appreciated. Lungs: Clear to auscultation bilaterally with no wheezes, rales, or rhonchi. Abdomen: Soft, completely nontender, nondistended, with good bowel sounds. There are no palpable pulsatile masses or hepatosplenomegaly. There is no guarding, rigidity, or rebound noted. Extremities: No evidence of cyanosis, clubbing, or edema. There are easily palpable peripheral pulses. Significant shortening of right lower extremity, significant deformity and edema of right proximal femur. Skin: warm and dry with good turgor and no rashes. Course 0208: Past medical records reviewed. The patient was evaluated in room A03. A complete history and physical exam was performed. Labs were drawn as above. She will go for x-ray of the right hip and a preoperative chest x-ray. The patient went for CT scan of her brain which was unremarkable 0248: I updated the patient on her results. 0318: She was complaining of increased pain to the right hip after going for CT scan of the head. I ordered Fentanyl citrate 50 mcg IV. 0417: I spoke with [facility]ong [facility]. He will evaluate for further management. Administered Medications Sodium Chloride (Nss) 500 mls @ 999 mls/hr IV .Q31M ONE Stop: 11/23/18 04:46 Last Admin: 11/23/18 04:20 Dose: 999 mls/hr Documented by: [id number] Discontinued Medications Fentanyl Citrate (Fentanyl Citrate) 50 mcg IV NOW STA Stop: 11/23/18 03:19 Last Admin: 11/23/18 03:21 Dose: 50 mcg Documented by: [id number] Medical Decision Making Differential Diagnosis Differential Diagnosis: hip fracture, pelvis fracture, femur fracture Medical Records Attestation: I reviewed the patient's medical records. Home Medications Current Medication List: was personally reviewed by me Laboratory Data Attestation: I reviewed the patient's lab results. Result diagrams: 11/23/18 02:28 11/23/18 02:28 Lab Results 11/23/18 11/23/18 11/23/18 Range/Units 02:28 02:28 02:28 WBC 11.32 H (4.8-10.8) K/uL RBC 3.49 L (4.2-5.4) M/uL Hgb 12.0 (12.0-16.0) g/dL Hct 33.5 L (37-47) % MCV 96.0 (80-100) fL MCH 34.4 H (25-34) pg MCHC 35.8 (32-36) g/dL RDW Std Deviation 46.9 H (36.4-46.3) fL RDW Coeff of Saw 13.5 (11.5-14.5) % Plt Count 115 L (130-400) K/uL MPV 11.3 H (7.4-10.4) fL Immature Gran % (Auto) 0.4 % Neut % (Auto) 79.2 % Lymph % (Auto) 8.9 % [place] % (Auto) 11.4 % Eos % (Auto) 0.0 % Baso % (Auto) 0.1 % Immature Gran # (Auto) 0.04 H (0.00-0.02) K/uL Neut # (Auto) 8.97 H (1.4-6.5) K/uL Lymph # (Auto) 1.01 L (1.2-3.4) K/uL [place] # (Auto) 1.29 H (0.11-0.59) K/uL Eos # (Auto) 0.00 (0-0.5) K/uL Baso # (Auto) 0.01 (0-0.2) K/uL PT 20.9 H (9.0-12.0) Seconds INR 2.2 H (0.9-1.1) APTT 36.9 H (21.0-31.0) Seconds PTT Ratio 1.4 Sodium 128 L (136-145) mmol/L Potassium 3.1 L (3.5-5.1) mmol/L Chloride 91 L (98-107) mmol/L Carbon Dioxide 26 (21-32) mmol/L Anion Gap 11.0 (3-11) BUN 11 (7-18) mg/dl Creatinine 0.51 L (0.6-1.2) mg/dl Est Cr Clr Drug Dosing 96.9 ml/min Est GFR ( Amer) 117.0 Est GFR (Non-Af Amer) 100.9 BUN/Creatinine Ratio 21.7 H (10-20) Glucose 127 H (70-99) mg/dl Calcium 8.2 L (8.5-10.1) mg/dl Urine Color Urine Appearance (Clear) Urine pH (4.5-7.5) Ur Specific [place] (1.000-1.030) Urine Protein (Negative) Urine Glucose (UA) (Negative) Urine Ketones (Negative) Urine Blood (Negative) Urine Nitrite (Negative) Urine Bilirubin (Negative) Urine Urobilinogen (Negative) Ur Leukocyte Esterase (Negative) Urine WBC (Auto) (0-5) /hpf Urine RBC (Auto) (0-4) /hpf U Hyaline Cast (Auto) (0-5) /lpf U Epithel Cells (Auto) (0-5) /lpf Urine Bacteria (Auto) (Negative) Ethyl Alcohol mg/dL (0-3) mg/dl Blood Type Antibody Screen 11/23/18 11/23/18 11/23/18 Range/Units 02:28 02:54 03:40 WBC (4.8-10.8) K/uL RBC (4.2-5.4) M/uL Hgb (12.0-16.0) g/dL Hct (37-47) % MCV (80-100) fL MCH (25-34) pg MCHC (32-36) g/dL RDW Std Deviation (36.4-46.3) fL RDW Coeff of Saw (11.5-14.5) % Plt Count (130-400) K/uL MPV (7.4-10.4) fL Immature Gran % (Auto) % Neut % (Auto) % Lymph % (Auto) % [place] % (Auto) % Eos % (Auto) % Baso % (Auto) % Immature Gran # (Auto) (0.00-0.02) K/uL Neut # (Auto) (1.4-6.5) K/uL Lymph # (Auto) (1.2-3.4) K/uL [place] # (Auto) (0.11-0.59) K/uL Eos # (Auto) (0-0.5) K/uL Baso # (Auto) (0-0.2) K/uL PT (9.0-12.0) Seconds INR (0.9-1.1) APTT (21.0-31.0) Seconds PTT Ratio Sodium (136-145) mmol/L Potassium (3.5-5.1) mmol/L Chloride (98-107) mmol/L Carbon Dioxide (21-32) mmol/L Anion Gap (3-11) BUN (7-18) mg/dl Creatinine (0.6-1.2) mg/dl Est Cr Clr Drug Dosing ml/min Est GFR ( Amer) Est GFR (Non-Af Amer) BUN/Creatinine Ratio (10-20) Glucose (70-99) mg/dl Calcium (8.5-10.1) mg/dl Urine Color Yellow Urine Appearance Cloudy A (Clear) Urine pH 6.0 (4.5-7.5) Ur Specific [place] 1.009 (1.000-1.030) Urine Protein Negative (Negative) Urine Glucose (UA) Negative (Negative) Urine Ketones 1+ H (Negative) Urine Blood Trace H (Negative) Urine Nitrite Negative (Negative) Urine Bilirubin Negative (Negative) Urine Urobilinogen Negative (Negative) Ur Leukocyte Esterase 1+ H (Negative) Urine WBC (Auto) 1-5 (0-5) /hpf Urine RBC (Auto) 0-4 (0-4) /hpf U Hyaline Cast (Auto) 1-5 (0-5) /lpf U Epithel Cells (Auto) >30 H (0-5) /lpf Urine Bacteria (Auto) 4+ H (Negative) Ethyl Alcohol mg/dL < 3.0 (0-3) mg/dl Blood Type O Negative Antibody Screen NEGATIVE Imaging Data Attestation: I personally reviewed and interpreted this imaging study as follows: My Impression: Chest x-ray showed no pneumothorax, no pulmonary infiltrate. Hardware in the right shoulder. Hip x-ray showed comminuted, mildly displaced, intertrochanteric hip fracture. Radiologist's Impression: Radiology results as stated below per my review and the radiologist's interpretation: CT head No intracranial hemorrhage, midline shift, or mass effect. No skull fracture. No significant soft tissue abnormality identified radiographically or radiopaque foreign body identified. Incidental underlying cerebral atrophy and periventricular deep white matter hypodense charges are similar to examination 02/26/2017. Blood Pressure Blood Pressure Findings: Normal blood pressure MDM Narrative The patient is a 63 y/o female who presents to the emergency department for evaluation following a fall that happened roughly 8 hours ago causing pain to her right side. The patient fell off a barstool. Her family helped her up. She went directly to bed afterwards but awoke tonight realizing she has severe right hip pain. There is obvious deformity and edema in that area. X-ray confirms a intertrochanteric fracture. The patient was noted to be hyponatremic on laboratory testing. She was started on a normal saline drip. She did require some fentanyl for her pain. The case was discussed with the [facility] Hospitalist group and they will evaluate for further management. Impression & Plan Closed fracture of right hip, Hyponatremia, Fall Discharge Plan Visit Data Chief Complaint: Fall Stated Complaint: FALL/HIP PAIN ED Provider: Mel Phillips Discharge Problem: Closed fracture of right hip, Hyponatremia, Fall Patient Disposition: Being Evaluated by Hospitalist Forms Stand Alone Forms: My [facility] Prescriptions Prescriptions: No Action Anoro Ellipta 62.5-25 mcg/actuation blister with device 1 ea inhalation DAILY RF: 0 metoprolol succinate 50 mg Tablet Extended Release 24 Hr 50 mg PO BID RF: 0 citalopram 20 mg Tablet 20 mg PO QAM RF: 0 warfarin 5 mg Tablet 5 mg PO UD RF: 0 digoxin 125 mcg Tablet 0.125 mg PO QAM RF: 0 lorazepam 1 mg Tablet 1 mg PO BID PRN (Reason: Anxiety) RF: 0 Referrals Referrals: Mina Ordonez MD [Primary Care Provider] - Discharge Problem: Closed fracture of right hip Qualifiers: Encounter type: initial encounter Qualified Code(s): S72.001A - Fracture of unspecified part of neck of right femur, initial encounter for closed fracture Fall Qualifiers: Encounter type: initial encounter Qualified Code(s): W19.XXXA - Unspecified fall, initial encounter The scribe's documentation has been prepared under my direction and personally reviewed by me in its entirety. I confirm that the note above accurately reflects all work, treatment, procedures, and medical decision making performed by me.
[2018-11-23] MEDS ORDERED: THIAMINE HCL 100 MG in SYRINGE 9 ML IV ONE (04:45)
[2018-11-23 05:16] LABS: Albumin Level 3.1 gm/dl (3.4-5.0); Bilirubin Direct 0.4 mg/dl (0-0.2); Bilirubin,Total 1.5 mg/dl (0.2-1); Magnesium 1.4 mg/dl (1.8-2.4); Total Protein 6.9 gm/dl (6.4-8.2)
[2018-11-23] MEDS: METOPROLOL SUCC 50MG EXT REL TAB PO SCH ×2 (05:20→21:01)
--- NOTE | 2018-11-23 05:24 | History & Physical Report ---
Date of Service November 23, 2018 Assessment & Plan (1) Atrial fibrillation with rapid ventricular response: On Coumadin INR therapeutic Multifactorial : Right hip pain secondary to traumatic right hip fracture, alcohol abuse, possible orthostasis as inciting factor for possible syncopal event given low blood pressure, electrolyte abnormalities hyperlipidemia on statin Rx COPD, pulmonary hypertension, ongoing tobacco abuse -pulmo status at baseline breast cancer left status post surgery/chemoradiation Acute on chronic hyponatremia, concomitant dehydration, hx of alcoholism mood disorder, at baseline Hyperglycemia rule out DM Chronic thrombocytopenia asymptomatic pyuria PCU Facilitate a.m. beta-radha medication; digoxin once potassium replaced Analgesia IVF, hold home diuretics for now Careful correction of sodium Orthopedics consult R hip fracture Vitamin K to reverse INR of 2.2 in preparation for surgery Cardiology consult RE rapid A. fib, preop eval DT precautions Nicotine patch PRN Check hemoglobin A1c DVT prophylaxis. SCDs if INR less than 2 while Coumadin on hold in preparation for surgery Full code Attempted to contact her over the phone to obtain additional information about patient mechanism of fall. No answer. Message left for call back. History of Present Illness Chief Complaint: Fall, right hip pain Primary Care Provider: Mina Ordonez MD History obtained from patient and records. Medical history significant for A. fib on Coumadin, hypertension, hyperlipidemia, COPD, pulmonary hypertension, breast cancer left status post surgery/chemoradiation, chronic hyponatremia, mood disorder, ongoing tobacco/alcohol abuse as per records, chronic thrombocytopenia. Recent confinement from October 09-October 31, 2016 for right humeral fracture status post surgery. Stay complicated by delirium tremens. Patient fell off a barstool at her home last night subsequently landing on the floor. Patient noted achy right hip pain. Patient not sure if she passed out. Patient denies chest pain or unusual shortness of breath. Denies headache. Medical History as above Surgical History : Lymph node dissection, cataract surgery, BTL, partial mastectomy left, eye surgery, a port placement, tissue transfer, shoulder surgery Family History : Breast cancer, diabetes, heart disease, rheumatoid arthritis Personal/Social history : 1/4 pack daily, daily alcohol intake, retired [employer] Allergies Allergy/AdvReac Type Severity Reaction Status Date / Time Sulfa (Sulfonamide Allergy Mild RASHES Verified 11/23/18 02:56 Antibiotics) morphine Allergy Rash Verified 11/23/18 04:12 Home Medications Home Medications Medication Instructions Recorded Confirmed Type citalopram 20 mg PO QAM 10/25/18 07/05/19 History digoxin 0.125 mg PO QAM 03/15/18 11/23/18 History lorazepam 1 mg PO BID PRN 03/15/18 11/23/18 History metoprolol succinate 50 mg PO BID 03/15/18 11/23/18 History warfarin 5 mg PO UD 03/15/18 11/23/18 History umeclidinium-vilanterol [Anoro 1 ea INHALATION DAILY 11/23/18 11/23/18 History Ellipta] Past Med/Surg History Medical History Anemia Atrial fibrillation Cancer LEFT BREAST (CHEMO AND RADIATION) Chronic obstructive pulmonary disease Hypertension Left ventricular enlargement BEING MONITORED BY ASHLY DUMONT Liver enzyme elevation Migraine Surgical History History of section X1 History of colonoscopy History of left cataract extraction History of partial mastectomy LEFT History of tooth extraction Hx of shoulder surgery RT SHOULDER (S/P FX) Social History Preferred Language: Omani Communication Ability: Effective [employer] Required: No Beliefs That Will Affect Care: None marital status: Current Living Situation: Spouse Other Information That Helps Us Care for You: No Feels Safe at Home: Yes Safety Concerns: Feels Safe At This Time Smoking Status: Light tobacco smoker Tobacco Type: cigarettes Cigarettes Per Day: HX OF 1 PPD Do You Dip or Chew Tobacco: No Second Hand Exposure: No Tobacco Cessation Education Requested by Patient: No (denied) Hx Alcohol Use: Yes Alcohol type: beer Hx Substance Use: No Review of Systems Review of Systems: As per HPI, all 10 systems reviewed, all other ROS negative Physical Exam Physical Exam: GENERAL: Slightly uncomfortable, pleasant, breathy voice, no respiratory distress SKIN: Normal color, warm HEENT: [place] palpebral conjunctivae, no ptosis, dry buccal mucosa NECK : Supple, no tenderness CHEST : Decreased breath sounds, no tenderness HEART : Tachycardic, systolic murmur ABDOMEN: Some distention, nontender EXTREMITIES : Right hip tenderness, no other conspicuous deformities noted NEUROLOGIC : Coherent, no facial asymmetry, no other gross focality Results & Data Vital Signs (Past 12 Hours) Vital Signs Temp Pulse Pulse Resp BP BP Pulse Ox 11/23/18 05:21 112 H 20 106/69 99 11/23/18 04:21 103 H 19 108/64 99 11/23/18 03:41 107 H 20 118/69 96 11/23/18 01:56 36.8 C 93 H 18 111/69 99 Laboratory Results Laboratory Results WBC 11.32 K/uL (4.8-10.8) H 11/23/18 02:28 RBC 3.49 M/uL (4.2-5.4) L 11/23/18 02:28 Hgb 12.0 g/dL (12.0-16.0) 11/23/18 02:28 Hct 33.5 % (37-47) L 11/23/18 02:28 MCV 96.0 fL (80-100) 11/23/18 02:28 MCH 34.4 pg (25-34) H 11/23/18 02:28 MCHC 35.8 g/dL (32-36) 11/23/18 02:28 RDW Std Deviation 46.9 fL (36.4-46.3) H 11/23/18 02:28 RDW Coeff of Saw 13.5 % (11.5-14.5) 11/23/18 02:28 Plt Count 115 K/uL (130-400) L 11/23/18 02:28 MPV 11.3 fL (7.4-10.4) H 11/23/18 02:28 Immature Gran % (Auto) 0.4 % 11/23/18 02:28 Neut % (Auto) 79.2 % 11/23/18 02:28 Lymph % (Auto) 8.9 % 11/23/18 02:28 [place] % (Auto) 11.4 % 11/23/18 02:28 Eos % (Auto) 0.0 % 11/23/18 02:28 Baso % (Auto) 0.1 % 11/23/18 02:28 Immature Gran # (Auto) 0.04 K/uL (0.00-0.02) H 11/23/18 02:28 Neut # (Auto) 8.97 K/uL (1.4-6.5) H 11/23/18 02:28 Lymph # (Auto) 1.01 K/uL (1.2-3.4) L 11/23/18 02:28 [place] # (Auto) 1.29 K/uL (0.11-0.59) H 11/23/18 02:28 Eos # (Auto) 0.00 K/uL (0-0.5) 11/23/18 02:28 Baso # (Auto) 0.01 K/uL (0-0.2) 11/23/18 02:28 PT 20.9 Seconds (9.0-12.0) H 11/23/18 02:28 INR 2.2 (0.9-1.1) H 11/23/18 02:28 APTT 36.9 Seconds (21.0-31.0) H 11/23/18 02:28 PTT Ratio 1.4 11/23/18 02:28 Sodium 128 mmol/L (136-145) L 11/23/18 02:28 Potassium 3.1 mmol/L (3.5-5.1) L 11/23/18 02:28 Chloride 91 mmol/L (98-107) L 11/23/18 02:28 Carbon Dioxide 26 mmol/L (21-32) 11/23/18 02:28 Anion Gap 11.0 (3-11) 11/23/18 02:28 BUN 11 mg/dl (7-18) 11/23/18 02:28 Creatinine 0.51 mg/dl (0.6-1.2) L 11/23/18 02:28 Est Cr Clr Drug Dosing 96.9 ml/min 11/23/18 02:28 Est GFR ( Amer) 117.0 11/23/18 02:28 Est GFR (Non-Af Amer) 100.9 11/23/18 02:28 BUN/Creatinine Ratio 21.7 (10-20) H 11/23/18 02:28 Glucose 127 mg/dl (70-99) H 11/23/18 02:28 Calcium 8.2 mg/dl (8.5-10.1) L 11/23/18 02:28 Magnesium 1.4 mg/dl (1.8-2.4) L 11/23/18 02:28 Total Bilirubin 1.5 mg/dl (0.2-1) H 11/23/18 02:28 Direct Bilirubin 0.4 mg/dl (0-0.2) H 11/23/18 02:28 AST 90 U/L (15-37) H 11/23/18 02:28 ALT 75 U/L (12-78) 11/23/18 02:28 Alkaline Phosphatase 113 U/L (45-117) 11/23/18 02:28 Ammonia 29.0 umol/L (11-32) 11/23/18 04:50 Total Protein 6.9 gm/dl (6.4-8.2) 11/23/18 02:28 Albumin 3.1 gm/dl (3.4-5.0) L 11/23/18 02:28 TSH 4.590 uIu/ml (0.300-4.500) H 11/23/18 02:28 Urine Color Yellow 11/23/18 02:54 Urine Appearance Cloudy (Clear) A 11/23/18 02:54 Urine pH 6.0 (4.5-7.5) 11/23/18 02:54 Ur Specific [place] 1.009 (1.000-1.030) 11/23/18 02:54 Urine Protein Negative (Negative) 11/23/18 02:54 Urine Glucose (UA) Negative (Negative) 11/23/18 02:54 Urine Ketones 1+ (Negative) H 11/23/18 02:54 Urine Blood Trace (Negative) H 11/23/18 02:54 Urine Nitrite Negative (Negative) 11/23/18 02:54 Urine Bilirubin Negative (Negative) 11/23/18 02:54 Urine Urobilinogen Negative (Negative) 11/23/18 02:54 Ur Leukocyte Esterase 1+ (Negative) H 11/23/18 02:54 Urine WBC (Auto) 1-5 /hpf (0-5) 11/23/18 02:54 Urine RBC (Auto) 0-4 /hpf (0-4) 11/23/18 02:54 U Hyaline Cast (Auto) 1-5 /lpf (0-5) 11/23/18 02:54 U Epithel Cells (Auto) >30 /lpf (0-5) H 11/23/18 02:54 Urine Bacteria (Auto) 4+ (Negative) H 11/23/18 02:54 Urine Osmolality 246 mOsm/kg (500-800) L 11/23/18 02:54 Ethyl Alcohol mg/dL < 3.0 mg/dl (0-3) 11/23/18 03:40 Blood Type O Negative 11/23/18 02:28 Antibody Screen NEGATIVE 11/23/18 02:[address] head initial read: No intracranial hemorrhage, midline shift, mass-effect. No skull fracture. Cerebral atrophy and periventricular deep white matter hypodense changes similar to prior examination. Right hip x-ray as per my interpretation: Right intertrochanteric/femoral shaft fracture with mild displacement Chest x-ray as per my interpretation no infiltrate EKG as per my interpretation rate 105, A. fib, LVH, downsloping ST depression lateral leads
[2018-11-23 05:28] LABS: T4 Free Thyroxine 1.39 ng/dl (0.8-1.6)
[2018-11-23] MEDS ORDERED: OXYCODONE HCL IR 5 MG TAB (IMMEDIATE RELEASE) PO STA (05:29)
[2018-11-23] MEDS ORDERED: MAGNESIUM SULFATE / D5W 1 GM/100 ML BAG IV STA (05:34)
[2018-11-23] MEDS ORDERED: PHYTONADIONE 5 MG in SODIUM CHLORIDE 0.9% 50 ML IV ONE (05:55)
--- NOTE | 2018-11-23 06:16 | XRay Report ---
XR chest 1V portable CLINICAL HISTORY: pre-op preoperative evaluation COMPARISON STUDY: 02/26/2017 FINDINGS: The bones soft tissues and hemidiaphragms are normal. The cardiomediastinal silhouette is n ormal. The lungs are clear. The pulmonary vasculature is normal. IMPRESSION: Negative chest. The above report was generated using voice recognition software. It may contain grammatical, syntax or spelling errors. Electronically signed by: Baltazar Chisholm M.D. 11/23/2018 6:15 AM
--- NOTE | 2018-11-23 06:16 | XRay Report ---
XR hip RT min 2V CLINICAL HISTORY: fall/deformity trauma. Pain. COMPARISON: 02/26/2017 DISCUSSION: Intertrochanteric fracture right hip with mild extension to the proximal femoral shaft. A vulsion of the lesser trochanter. Mild superior migration right femoral shaft. No evidence for disloc ation. No evidence for acetabular protrusion. There is no evidence for soft tissue swelling. IMPRESSION: Comminuted intertrochanteric fracture right hip with extension to the proximal femoral sh aft. The above report was generated using voice recognition software. It may contain grammatical, syntax or spelling errors. Electronically signed by: Baltazar Chisholm M.D. 11/23/2018 6:14 AM
--- NOTE | 2018-11-23 06:30 | CT Scan Report ---
CT head/brain wo con CT DOSE: 537.48 mGy.cm HISTORY: Trauma. Mental status change. eval for trauma TECHNIQUE: Multiaxial CT images of the head were performed without the use of intravenous contrast. A dose lowering technique was utilized adhering to the principles of ALARA. Comparison: 02/26/2017 Findings: The paranasal sinuses and mastoid air cells are clear. The calvarium and skull base are int act. The ventricles and sulci are within normal limits. There is no mass, hematoma, midline shift, or acute infarct. Impression: No acute intracranial abnormality. Age-related chronic small vessel change. The above report was generated using voice recognition software. It may contain grammatical, syntax or spelling errors. Electronically signed by: Baltazar Chisholm M.D. 11/23/2018 6:29 AM
[2018-11-23] MEDS ORDERED: LORazepam 3 MG/6 ML VIAL IV PRN (06:59)
[2018-11-23] MEDS ORDERED: HYDROmorphone INJ 0.5 MG/0.5 ML SYR IV PRN (06:59)
[2018-11-23] MEDS ORDERED: GABAPENTIN 1200MG ALCOHOL WITHDRAWAL LOAD PO STA (06:59)
[2018-11-23] MEDS ORDERED: ACETAMINOPHEN 325 MG TAB PO PRN (06:59)
[2018-11-23] MEDS ORDERED: BISACODYL 10 MG SUPP PR PRN (06:59)
[2018-11-23] MEDS ORDERED: MAGNESIUM HYDROXIDE SUSP 30 ML UDC PO PRN (06:59)
[2018-11-23] MEDS ORDERED: NITROGLYCERIN SL 0.4 MG/TAB TAB SL PRN (06:59)
[2018-11-23] MEDS ORDERED: PROMETHAZINE HCL 12.5 MG in SODIUM CHLORIDE 0.9% 50 ML IV PRN (06:59)
[2018-11-23] MEDS ORDERED: NALOXONE HCL 0.4 MG/1 ML VIAL/CARP IV PRN (06:59)
[2018-11-23] MEDS ORDERED: LORazepam 2 MG/4 ML VIAL IV PRN (06:59)
[2018-11-23] MEDS ORDERED: ATIVAN IV ALCOHOL WITHDRAWL IV SCH (06:59)
[2018-11-23] MEDS ORDERED: GABAPENTIN 600 MG TAB PO SCH (07:30)
[2018-11-23 07:36] LABS: Estimated Average Glucose 114 mg/dl; Hemoglobin A1C 5.6 % (4.5-5.6)
[2018-11-23] MEDS ORDERED: XOPENEX/ATROVENT 1.25mg/0.5MG NEB COMBO NEB PRN (07:51)
[2018-11-23] MEDS: POTASSIUM CHLORIDE 40 MEQ in SODIUM CHLORIDE 0.9% 1000ML 1,000 ML IV SCH (07:57)
[2018-11-23] MEDS ORDERED: LEVALBUTEROL 1.25MG/0.5ML NEB INH PRN (08:00)
[2018-11-23] MEDS ORDERED: IPRATROPIUM BROMIDE NEB SOLN 0.02% 2.5 ML VIAL INH PRN (08:00)
[2018-11-23] MEDS: FOLIC ACID 1 MG TAB PO SCH (08:03)
[2018-11-23] MEDS: CITALOPRAM 20 MG TAB PO SCH (08:03)
[2018-11-23] MEDS: MULTIVITAMIN TAB PO SCH (08:03)
[2018-11-23] MEDS: MAGNESIUM SULFATE / D5W 1 GM/100 ML BAG IV SCH ×2 (08:03→09:07)
[2018-11-23] MEDS ORDERED: ALBUMIN 25% 50 ML IV ONE (08:30)
--- NOTE | 2018-11-23 09:47 | Cardiology Consultation ---
Date of Consultation November 23, 2018 Assessment & Plan (1) Closed fracture of right hip: Options and risk discussed. Patient is at least a moderate surgical risk given her multiple medical issues. The benefits of surgery are felt to be greater than the associated risk. Resting echocardiography requested to assess left ventricular systolic function as well as current valvular status which will help guide perioperative management. Coumadin anticoagulation has been held, reversed with 5 mg of vitamin K. Hold furosemide. Recommend uninterrupted continuation of metoprolol and digoxin throughout the perioperative period. (2) Afib: Persistent if not permanent Continue rate control with metoprolol and digoxin Resume Coumadin postoperatively when safe/able. (3) Nonrheumatic mitral valve regurgitation: Moderate by exam Volume status is compensated Continue medical management Resting echocardiography ordered as above (4) Tobacco use disorder: Cessation advised. (5) Alcohol use: Reduction in alcohol intake advised Withdrawal orders/protocol ordered on admission Supervising Physician Co-Signing Physician Notes Patient seen and examined with Baltazar Lester PA-C. Agree with findings and assessment as above. Risk discussed as above. Echocardiogram shows stable mitral regurgitation and LV systolic function without significant pulmonary hypertension. Counseled that moderate risk of perioperative cardiovascular event approximately <5% and that no further cardiac testing or intervention would further lower that risk. Pt states that she understands, is accepting of that risk and wishes to proceed. No need to delay surgery from cardiac standpoint. Metoprolol and dig uninterrupted. Systemic anticoagulation to be resumed once bleeding risk acceptable from surgical standpoint History of Present Illness Reason for Consultation: Atrial fibrillation. Preoperative cardiology evaluation. Requesting Physician: Oconer Attending Physician: Layo History of Present Illness Mrs. 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 Approximately 8 hours prior to presentation the patient fell off her yusuf akfast/kitchen barstool, striking her head and right side. Due to increased discomfort throughout the night the patient summoned EMS and was transported to the ER for evaluation. Imaging revealed a comminuted intertrochanteric fracture of the right hip with extension to the proximal femoral shaft. INR on presentation was 3.2 with patient receiving 5 mg of vitamin K. Additional notable laboratory findings include hyponatremia left (sodium 128 mmol/L), hypokalemia (3.1 mmol/L), hypomagnesemia (1.4 mg/deciliter), hypoalbuminemia, and abnormal LFTs with patient prescribed IV fluid resuscitation, oral potassium supplementation, thiamine, magnesium supplementation, albumin, gabapentin per protocol. Tentative plans are for right hip repair later today. H&P is not currently available/completed for review. Past Medical and Surgical History: Persistent atrial fibrillation/flutter, treated with rate control and chronic Coumadin anticoagulation Mitral pulmonary hypertension regurgitation Pulmonary hypertension Chronic obstructive pulmonary disease Pleural effusion status post thoracentesis Pulmonary nodules Chronic alcohol use/abuse Hypertension Dyslipidemia Breast cancer status post partial mastectomy chemotherapy Radiation pneumonitis Depression Anxiety Tremor Breast biopsy Colonoscopy with hyperplastic polypectomy Bilateral cataract extraction A port Family History: Mother with A. fib, pacemaker. Maternal grandmother with sinus node dysfunction status post pacemaker implantation. Father with prostate cancer. Maternal grandmother with thyroid cancer. Aunt and sister with breast cancer Social History: Smoker, 1/2 pack/day x 44 years. Alcohol: At least a 3 Phillips lights per day. Illegal/illicit drug use: Denied. 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 , lives with Complete Review of Systems: Right hip pain. Chronic stable exertional shortness of breath. Occasional quick jabs of chest discomfort lasting 1 to 2 seconds. No exertional chest pain. No resting dyspnea. No palpitations. No orthopnea, PND, or lower extremity peripheral edema. No near syncope or syncope. + Tremor. No history of seizure disorder. No history of TIA/CVA. Complete review of systems is otherwise as stated above, negative, noncontributory. Data: October 23, 2017 TTE Interpretation Summary (as per Dr. Valdez): Atrial fibrillati on with controlled ventricular response was present during the echocardiogram study. The LV wall thickness is normal. The left ventricular wall motion is normal. The qualitative LV ejection fraction is 55-59% (normal). The left atrium is severely enlarged (>48 ml/m^2,). The right atrium is moderately enlarged. At least moderate mitral regurgitation is present. The mitral regurgitation jet is eccentric and impinges on the posterior portion of the left atrial wall. Moderate tricuspid regurgitation is present. Moderate pulmonary hypertension is present. The estimated pulmonary artery systolic pressure is 50mm Hg. Compared to the prior study dated 04/27/2015, there has been an interval development of severe left atrial enlargement. The right atrium is now enlarged to a moderate degree. The severity of the mitral regurgitation has progressed. There has been interval decline in left ventricular systolic function. Moderate pulmonary hypertension is not present. If clinically indicated, consider transesophageal echocardiogram for further quantification of the mitral regurgitation. November 21, 2017 Transesophageal Echo ([facility]KO) Interpretation ([facility]): The rhythm is atrial fibrillation. Ejection Fraction = 55 - 60%. The left atrium is severely dilated. No thrombus is detected in the left atrial appendage. The right atrium is severely dilated. The interatrial septum is intact with no evidence for an atrial septal defect. The anterior mitral valve leaflet is mildly thickened with borderline prolapse. There is moderate to severe mitral regurgitation. The mitral regurgitant jet is posteriorly directed, which is consistent with anterior leaflet pathology. There is mild tricuspid regurgitation. Doppler findings do not suggest pulmonary hypertension April 09, 2018 Lexiscan Interpretation Summary (as per Dr. Armando): Gated SPECT imaging reveals normal myocardial thickening and wall motion. The left ventricular ejection fraction was calculated to be >65%. Lexiscan nuclear cardiac stress test negative for ischemia. EKG on admission revealed atrial fibrillation with a ventricular rate of 106 bpm. Moderate voltage criteria for left ventricular hypertrophy observed. Nonspecific ST-T wave changes noted, possibly related to digoxin. When compared to her EKG obtained as an outpatient on September 25, 2018, the inferior and lateral T wave changes appear improved. Chest x-ray on presentation (11/23/2018) showed no acute cardiopulmonary findings. Right hip x-ray on presentation (11/23/2018) revealed a comminuted intertrochanteric fracture of the right hip with extension to the proximal femoral shaft CT of the head/brain without contrast on 11/23/2018 showed no acute intracranial abnormality. Age-related chronic small vessel changes were observed. Allergies Allergy/AdvReac Type Severity Reaction Status Date / Time Sulfa (Sulfonamide Allergy Mild RASHES Verified 11/23/18 02:56 Antibiotics) morphine Allergy Rash Verified 11/23/18 04:12 Home Medications Home Medications Medication Instructions Recorded Confirmed Type citalopram 20 mg PO QAM 03/15/18 11/23/18 History digoxin 0.125 mg PO QAM 03/15/18 11/23/18 History lorazepam 1 mg PO BID PRN 03/15/18 11/23/18 History metoprolol succinate 50 mg PO BID 03/15/18 11/23/18 History warfarin 5 mg PO UD 03/15/18 11/23/18 History umeclidinium-vilanterol [Anoro 1 ea INHALATION DAILY 11/23/18 11/23/18 History Ellipta] Patient History Medical History Anemia Atrial fibrillation Cancer LEFT BREAST (CHEMO AND RADIATION) Chronic obstructive pulmonary disease Hypertension Left ventricular enlargement BEING MONITORED BY ASHLY DUMONT Liver enzyme elevation Migraine Surgical History History of section X1 History of colonoscopy History of left cataract extraction History of partial mastectomy LEFT History of tooth extraction Hx of shoulder surgery RT SHOULDER (S/P FX) Social History Preferred Language: Polish Communication Ability: Effective 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 Beliefs That Will Affect Care: None marital status: Current Living Situation: Spouse Other Information That Helps Us Care for You: No Feels Safe at Home: Yes Safety Concerns: Feels Safe At This Time Smoking Status: Light tobacco smoker Tobacco Type: cigarettes Cigarettes Per Day: HX OF 1 PPD Do You Dip or Chew Tobacco: No Second Hand Exposure: No Tobacco Cessation Education Requested by Patient: No (denied) Hx Alcohol Use: Yes Alcohol type: beer Hx Substance Use: No Review of Systems Review of Systems: All systems reviewed & are unremarkable except as noted in HPI & below Constitutional: + insomnia; no fever and no chills Respiratory: + cough, + dyspnea and + dyspnea on exertion; no hemoptysis Cardiovascular: no palpitations, no syncope and no claudication Gastrointestinal: + nausea; no vomiting Genitourinary: no dysuria Musculoskeletal: as per Subjective / HPI Physical Exam Physical Exam: General: A&O to person and place. Lethargic. HEENT: Normocephalic. Atraumatic. PER. Conjunctiva pink, sclera injected. Neck: No carotid bruits. Neck veins are flat. No No HJR. Heart: Irregularly irregular around 90 bpm. Soft apical systolic murmur. No rub. Lungs: Decreased/diminished anteriorly. No abnormal breath sounds appreciated anteriorly. Abdomen: +BS. Soft. Nontender. No masses or organomegaly. Extremities: No cyanosis. No clubbing. No edema. Pulses: radial=2/4, posterior tibial=1/4. Limited neurological examination: Lethargic. Tremor. No focal deficits. Results & Data Vital Signs (Past 12 Hours) Vital Signs Temp Pulse Pulse Resp BP BP Pulse Ox 11/23/18 06:40 36.7 C 88 16 91/62 L 96 11/23/18 06:27 86 22 96/70 L 96 11/23/18 05:21 112 H 20 106/69 99 11/23/18 04:21 103 H 19 108/64 99 11/23/18 03:41 107 H 20 118/69 96 11/23/18 01:56 36.8 C 93 H 18 111/69 99 Laboratory Results - last 24 hr 11/23/18 11/23/18 11/23/18 02:25 02:28 02:28 WBC 11.32 H RBC 3.49 L Hgb 12.0 Hct 33.5 L MCV 96.0 MCH 34.4 H MCHC 35.8 RDW Std Deviation 46.9 H RDW Coeff of Saw 13.5 Plt Count 115 L MPV 11.3 H Immature Gran % (Auto) 0.4 Neut % (Auto) 79.2 Lymph % (Auto) 8.9 [place] % (Auto) 11.4 Eos % (Auto) 0.0 Baso % (Auto) 0.1 Immature Gran # (Auto) 0.04 H Neut # (Auto) 8.97 H Lymph # (Auto) 1.01 L [place] # (Auto) 1.29 H Eos # (Auto) 0.00 Baso # (Auto) 0.01 PT 20.9 H INR 2.2 H APTT 36.9 H PTT Ratio 1.4 Sodium Potassium Chloride Carbon Dioxide Anion Gap BUN Creatinine Est Cr Clr Drug Dosing Est GFR ( Amer) Est GFR (Non-Af Amer) BUN/Creatinine Ratio Glucose Estimat Average Glucose Hemoglobin A1c Osmolality Calcium Magnesium Total Bilirubin Direct Bilirubin AST ALT Alkaline Phosphatase Ammonia Troponin I Total Protein Albumin TSH Free T4 Total T3 1.25 Urine Color Urine Appearance Urine pH Ur Specific [place] Urine Protein Urine Glucose (UA) Urine Ketones Urine Blood Urine Nitrite Urine Bilirubin Urine Urobilinogen Ur Leukocyte Esterase Urine WBC (Auto) Urine RBC (Auto) U Hyaline Cast (Auto) U Epithel Cells (Auto) Urine Bacteria (Auto) Urine Osmolality Digoxin Ethyl Alcohol mg/dL Blood Type Antibody Screen 11/23/18 11/23/18 11/23/18 02:28 02:28 02:28 WBC RBC Hgb Hct MCV MCH MCHC RDW Std Deviation RDW Coeff of Saw Plt Count MPV Immature Gran % (Auto) Neut % (Auto) Lymph % (Auto) [place] % (Auto) Eos % (Auto) Baso % (Auto) Immature Gran # (Auto) Neut # (Auto) Lymph # (Auto) [place] # (Auto) Eos # (Auto) Baso # (Auto) PT INR APTT PTT Ratio Sodium 128 L Potassium 3.1 L Chloride 91 L Carbon Dioxide 26 Anion Gap 11.0 BUN 11 Creatinine 0.51 L Est Cr Clr Drug Dosing 96.9 Est GFR ( Amer) 117.0 Est GFR (Non-Af Amer) 100.9 BUN/Creatinine Ratio 21.7 H Glucose 127 H Estimat Average Glucose 114 Hemoglobin A1c 5.6 Osmolality Calcium 8.2 L Magnesium 1.4 L Total Bilirubin 1.5 H Direct Bilirubin 0.4 H AST 90 H ALT 75 Alkaline Phosphatase 113 Ammonia Troponin I Total Protein 6.9 Albumin 3.1 L TSH 4.590 H Free T4 1.39 Total T3 Urine Color Urine Appearance Urine pH Ur Specific [place] Urine Protein Urine Glucose (UA) Urine Ketones Urine Blood Urine Nitrite Urine Bilirubin Urine Urobilinogen Ur Leukocyte Esterase Urine WBC (Auto) Urine RBC (Auto) U Hyaline Cast (Auto) U Epithel Cells (Auto) Urine Bacteria (Auto) Urine Osmolality Digoxin Ethyl Alcohol mg/dL Blood Type O Negative Antibody Screen NEGATIVE 11/23/18 11/23/18 11/23/18 02:28 02:54 02:54 WBC RBC Hgb Hct MCV MCH MCHC RDW Std Deviation RDW Coeff of Saw Plt Count MPV Immature Gran % (Auto) Neut % (Auto) Lymph % (Auto) [place] % (Auto) Eos % (Auto) Baso % (Auto) Immature Gran # (Auto) Neut # (Auto) Lymph # (Auto) [place] # (Auto) Eos # (Auto) Baso # (Auto) PT INR APTT PTT Ratio Sodium Potassium Chloride Carbon Dioxide Anion Gap BUN Creatinine Est Cr Clr Drug Dosing Est GFR ( Amer) Est GFR (Non-Af Amer) BUN/Creatinine Ratio Glucose Estimat Average Glucose Hemoglobin A1c Osmolality Calcium Magnesium Total Bilirubin Direct Bilirubin AST ALT Alkaline Phosphatase Ammonia Troponin I 0.020 Total Protein Albumin TSH Free T4 Total T3 Urine Color Yellow Urine Appearance Cloudy A Urine pH 6.0 Ur Specific [place] 1.009 Urine Protein Negative Urine Glucose (UA) Negative Urine Ketones 1+ H Urine Blood Trace H Urine Nitrite Negative Urine Bilirubin Negative Urine Urobilinogen Negative Ur Leukocyte Esterase 1+ H Urine WBC (Auto) 1-5 Urine RBC (Auto) 0-4 U Hyaline Cast (Auto) 1-5 U Epithel Cells (Auto) >30 H Urine Bacteria (Auto) 4+ H Urine Osmolality 246 L Digoxin Ethyl Alcohol mg/dL Blood Type Antibody Screen 11/23/18 11/23/18 11/23/18 03:40 04:50 04:50 WBC RBC Hgb Hct MCV MCH MCHC RDW Std Deviation RDW Coeff of Saw Plt Count MPV Immature Gran % (Auto) Neut % (Auto) Lymph % (Auto) [place] % (Auto) Eos % (Auto) Baso % (Auto) Immature Gran # (Auto) Neut # (Auto) Lymph # (Auto) [place] # (Auto) Eos # (Auto) Baso # (Auto) PT INR APTT PTT Ratio Sodium Potassium Chloride Carbon Dioxide Anion Gap BUN Creatinine Est Cr Clr Drug Dosing Est GFR ( Amer) Est GFR (Non-Af Amer) BUN/Creatinine Ratio Glucose Estimat Average Glucose Hemoglobin A1c Osmolality 264 L Calcium Magnesium Total Bilirubin Direct Bilirubin AST ALT Alkaline Phosphatase Ammonia Troponin I Total Protein Albumin TSH Free T4 Total T3 Urine Color Urine Appearance Urine pH Ur Specific [place] Urine Protein Urine Glucose (UA) Urine Ketones Urine Blood Urine Nitrite Urine Bilirubin Urine Urobilinogen Ur Leukocyte Esterase Urine WBC (Auto) Urine RBC (Auto) U Hyaline Cast (Auto) U Epithel Cells (Auto) Urine Bacteria (Auto) Urine Osmolality Digoxin 0.2 L Ethyl Alcohol mg/dL < 3.0 Blood Type Antibody Screen 11/23/18 04:50 WBC RBC Hgb Hct MCV MCH MCHC RDW Std Deviation RDW Coeff of Saw Plt Count MPV Immature Gran % (Auto) Neut % (Auto) Lymph % (Auto) [place] % (Auto) Eos % (Auto) Baso % (Auto) Immature Gran # (Auto) Neut # (Auto) Lymph # (Auto) [place] # (Auto) Eos # (Auto) Baso # (Auto) PT INR APTT PTT Ratio Sodium Potassium Chloride Carbon Dioxide Anion Gap BUN Creatinine Est Cr Clr Drug Dosing Est GFR ( Amer) Est GFR (Non-Af Amer) BUN/Creatinine Ratio Glucose Estimat Average Glucose Hemoglobin A1c Osmolality Calcium Magnesium Total Bilirubin Direct Bilirubin AST ALT Alkaline Phosphatase Ammonia 29.0 Troponin I Total Protein Albumin TSH Free T4 Total T3 Urine Color Urine Appearance Urine pH Ur Specific [place] Urine Protein Urine Glucose (UA) Urine Ketones Urine Blood Urine Nitrite Urine Bilirubin Urine Urobilinogen Ur Leukocyte Esterase Urine WBC (Auto) Urine RBC (Auto) U Hyaline Cast (Auto) U Epithel Cells (Auto) Urine Bacteria (Auto) Urine Osmolality Digoxin Ethyl Alcohol mg/dL Blood Type Antibody Screen (1) Closed fracture of right hip Encounter type: initial encounter Qualified Code(s): S72.001A - Fracture of unspecified part of neck of right femur, initial encounter for closed fracture
[2018-11-23 12:27] LABS: INR 1.3 (0.9-1.1); Prothrombin Time 13.5 Seconds (9.0-12.0)
--- NOTE | 2018-11-23 12:34 | Communication Note ---
Date of Service: November 23, 2018 Pt was seen and examined Lying in bed with no distress Pt said that she has pain whenever she moves her RLE She said that she usually drinks about 2-3 beers (16OZ) daily She said that she never had any alcohol withdrawn symptoms if she does not drink for a couple days Denies any chest pain, palpitation, dizziness and SOB Exam General- No acute distress Head- atraumatic Eyes- PERRL, EOMI, ENT- oropharynx clear Neck- supple, no JVD Lungs- clear to auscultation Heart- irregular rhythm; +systolic murmur Abdomen- normal bowel sounds, soft, nontender Extremities- no calf tenderness, +Right hip tenderness Neuro- alert, oriented x 3; PERRL, EOMI; no facial palsy; no dysarthria Skin- warm & dry A/P Closed fracture of right hip s/p fall after drinking too much alcohol Right hip xray showed comminuted intertrochanteric fracture right hip with extension to the proximal femoral shaft. Orthopedic consult- pending Cardiology on board for cardiac clearance Moderate surgical risk given her multiple medical issues. Cardiology recommended not to hold metoprolol and digoxin throughout the perioperative period. ECHO pending Afib Present on admission with Afib and RVR Rate controlled now with metoprolol and digoxin INR on admission 2.2, hold coumadin today for the procedure Vit K given today since pt plan to go to OR for surgery Will to resume coumadin after surgery once bleeding stable Continue monitor in tele Alcohol abuse Denies any history of withdrawn or DT Continue gabapentin and Ativan for alcohol withdrawn protocol Monitor for signs of alcohol withdrawn Disposition Continue monitor in tele
[2018-11-23 12:36] LABS: BUN Creatinine Ratio 26.1 (10-20); Calcium 8.4 mg/dl (8.5-10.1); Creatinine Clr Calc Pharmacy 117.3 ml/min; Est GFR (African American) 124.7; Est GFR (Non-African American) 107.6; Magnesium 2.6 mg/dl (1.8-2.4); Potassium 3.8 mmol/L (3.5-5.1)
[2018-11-23] MEDS: GABAPENTIN 600 MG TAB PO SCH ×2 (13:59→20:35)
--- NOTE | 2018-11-23 14:28 | Orthopedic Consultation ---
Date of Consultation November 23, 2018 Assessment & Plan (1) Closed fracture of right hip: The patient is a 63yo Fe with displaced comminuted right intertrochanteric hip fracture sustained after a fall from standing height. I indicated the patient for right hip cephalomedullary nail. The patient was informed of the risks and benefits of surgery, which include but not limited to infection, bleeding, blood clots, damage to nerves, vessels, bone and soft tissue, dislocation, leg length discrepancy, malunion, nonunion, failure of the implants, need for additional surgery and . The patient chose to proceed with surgical intervention. Plan for OR 11/24/2018 a.m. pending medical clearance, with Dr. Clayton. N.p.o. 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 Thank you for the consultation. History of Present Illness Reason for Consultation: Right hip fracture Attending Physician: Renata Vasques MD History of Present Illness The patient is a 63-year-old female with significant past medical history for A. fib on Coumadin, hypertension, hyperlipidemia, COPD, pulmonary hypertension, breast cancer left status post surgery/chemoradiation, chronic hyponatremia, mood disorder, ongoing tobacco/alcohol abuse as per records, chronic thrombocytopenia. Present secondary to a fall she sustained earlier this morning, from a barstool. Seen at [facility] emergency department secondary to complaints of pain and inability to ambulate. Diagnosed with right intertrochanteric hip fracture. Patient a poor historian. Denies any associated injuries. Denies numbness and tingling to right lower extremity. Allergies Allergy/AdvReac Type Severity Reaction Status Date / Time Sulfa (Sulfonamide Allergy Mild RASHES Verified 11/23/18 02:56 Antibiotics) morphine Allergy Rash Verified 11/23/18 04:12 Home Medications Home Medications Medication Instructions Recorded Confirmed Type citalopram 20 mg PO QAM 03/15/18 11/23/18 History digoxin 0.125 mg PO QAM 03/15/18 11/23/18 History lorazepam 1 mg PO BID PRN 03/15/18 11/23/18 History metoprolol succinate 50 mg PO BID 03/15/18 11/23/18 History warfarin 5 mg PO UD 03/15/18 11/23/18 History umeclidinium-vilanterol [Anoro 1 ea INHALATION DAILY 11/23/18 11/23/18 History Ellipta] Patient History Medical History Anemia Atrial fibrillation Cancer LEFT BREAST (CHEMO AND RADIATION) Chronic obstructive pulmonary disease Hypertension Left ventricular enlargement BEING MONITORED BY ASHLY DUMONT Liver enzyme elevation Migraine Surgical History History of section X1 History of colonoscopy History of left cataract extraction History of partial mastectomy LEFT History of tooth extraction Hx of shoulder surgery RT SHOULDER (S/P FX) Social History Preferred Language: Norwegian Communication Ability: Effective 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' 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 Trimmer Required: No Beliefs That Will Affect Care: None marital status: Current Living Situation: Spouse Other Information That Helps Us Care for You: No Feels Safe at Home: Yes Safety Concerns: Feels Safe At This Time Smoking Status: Light tobacco smoker Tobacco Type: cigarettes Cigarettes Per Day: HX OF 1 PPD Do You Dip or Chew Tobacco: No Second Hand Exposure: No Tobacco Cessation Education Requested by Patient: No (denied) Hx Alcohol Use: Yes Alcohol type: beer Hx Substance Use: No Review of Systems Review of Systems: All systems reviewed & are unremarkable except as noted in HPI & below Constitutional: as per Subjective / HPI Physical Exam Physical Exam: RLE NVSI +EHL/FHL/TA/GS SILT grossly, +2 DP pulse, compartments soft NT, leg shortened externally rotated. Skin clean dry and intact overlying hip. Constitutional: WD/WN, vitals as above Results & Data Vital Signs (Past 12 Hours) Vital Signs Temp Pulse Pulse Resp BP Pulse Ox 11/23/18 11:59 36.8 C 85 16 96/61 L 97 11/23/18 06:40 36.7 C 88 16 91/62 L 96 11/23/18 06:27 86 22 96/70 L 96 11/23/18 05:21 112 H 20 106/69 99 11/23/18 04:21 103 H 19 108/64 99 11/23/18 03:41 107 H 20 118/69 96 (1) Closed fracture of right hip Encounter type: initial encounter Qualified Code(s): S72.001A - Fracture of unspecified part of neck of right femur, initial encounter for closed fracture
[2018-11-23] MEDS: DIGOXIN 0.125 MG TAB PO SCH (16:23)
[2018-11-23] MEDS: LORazepam 1 MG/2 ML VIAL IV PRN (18:19)
[2018-11-24] MEDS: POTASSIUM CHLORIDE 40 MEQ in SODIUM CHLORIDE 0.9% 1000ML 1,000 ML IV SCH (03:27)
[2018-11-24] MEDS ORDERED: CEFAZOLIN 1000MG 1,000 MG/7.5 ML SYR IV SCH (06:00)
[2018-11-24 06:17] LABS: Basophils # (auto) 0.01 K/uL (0-0.2); Basophils % (auto) 0.1 %; Eosinophils # (auto) 0.01 K/uL (0-0.5); Eosinophils % (auto) 0.1 %; Hematocrit (blood only) 27.4 % (37-47); Hemoglobin 9.5 g/dL (12.0-16.0); Immature Granulocytes # (auto) 0.07 K/uL (0.00-0.02); Immature Granulocytes % (auto) 0.7 %; Lymphocytes # (auto) 1.32 K/uL (1.2-3.4); Mean Corpuscular Hgb Conc 34.7 g/dL (32-36); Mean Corpuscular Volume 97.2 fL (80-100); Mean Platelet Volume 10.8 fL (7.4-10.4); Monocytes # (auto) 1.57 K/uL (0.11-0.59); Monocytes % (auto) 16.6 %; Neutrophils # (auto) 6.48 K/uL (1.4-6.5); Neutrophils % (auto) 68.5 %; Platelet Count 110 K/uL (130-400); RDW Coefficient of Variation 13.7 % (11.5-14.5); Red Blood Count 2.82 M/uL (4.2-5.4); White Blood Count 9.46 K/uL (4.8-10.8)
[2018-11-24 06:32] LABS: INR 1.1 (0.9-1.1); Prothrombin Time 10.9 Seconds (9.0-12.0)
[2018-11-24 06:46] LABS: BUN Creatinine Ratio 22.6 (10-20); Calcium 8.2 mg/dl (8.5-10.1); Creatinine Clr Calc Pharmacy 133.2 ml/min; Est GFR (Non-African American) 112.1; Potassium 3.9 mmol/L (3.5-5.1)
[2018-11-24] MEDS ORDERED: fentaNYL citrate 100 MCG/2 ML VIAL ONE (06:58)
[2018-11-24] MEDS ORDERED: PROPOFOL IV EMULSION 10 MG/ML 20 ML VIAL IV ONE ×2 (06:58→10:26)
[2018-11-24] MEDS ORDERED: MIDAZOLAM HCL 1 MG/ML 2ML VIAL ONE (06:58)
[2018-11-24] MEDS: GABAPENTIN 600 MG TAB PO SCH ×3 (07:06→20:38)
[2018-11-24] MEDS ORDERED: BUPIVACAINE 0.5 % 5 MG/1 ML PF 10ML VIAL ONE (07:20)
[2018-11-24] MEDS: FOLIC ACID 1 MG TAB PO SCH (07:45)
[2018-11-24] MEDS: CITALOPRAM 20 MG TAB PO SCH (07:45)
[2018-11-24] MEDS: THIAMINE HCL 100 MG TAB PO SCH (07:45)
[2018-11-24] MEDS: MULTIVITAMIN TAB PO SCH (07:45)
[2018-11-24] MEDS: METOPROLOL SUCC 50MG EXT REL TAB PO SCH ×2 (07:58→20:38)
[2018-11-24] MEDS ORDERED: BUPIVACAINE/EPINEPHRINE 0.5% MPF 1:200,000 30 ML VIAL ONE (08:18)
--- NOTE | 2018-11-24 08:21 | Anesthesiology Consultation ---
Date of Service November 24, 2018 Assessment & Plan Chart Review Chart Review: Acceptable Risk for Surgery and Patient NOT seen in Pre Admission Testing INR 1.1. Ok for SAB with sedation. Consent obtained by patient and her . Consults Requested cardiac Cardiology eval 11/24/2018: ptions and risk discussed. Patient is at least a moderate surgical risk given her multiple medical issues. The benefits of surgery are felt to be greater than the associated risk. Resting echocardiography requested to assess left v entricular systolic function as well as current valvular status which will help guide perioperative management. Coumadin anticoagulation has been held, reversed with 5 mg of vitamin K. Hold furosemide. Recommend uninterrupted continuation of metoprolol and digoxin throughout the perioperative period. (2) Afib: Persistent if not permanent Continue rate control with metoprolol and digoxin Resume Coumadin postoperatively when safe/able. (3) Nonrheumatic mitral valve regurgitation: Moderate by exam Volume status is compensated Continue medical management Resting echocardiography ordered as above (4) Tobacco use disorder: Cessation advised. (5) Alcohol use: Reduction in alcohol intake advised Withdrawal orders/protocol ordered on admission History Surgery Operation Date: 11/24/18 07:30 Proposed Procedures p Right Long Troch Nail - Emerson Clayton MD Height/Weight Height: 5 ft 2 in Weight: 64 kg Allergies Allergy/AdvReac Type Severity Reaction Status Date / Time Sulfa (Sulfonamide Allergy Mild RASHES Verified 11/23/18 02:56 Antibiotics) morphine Allergy Rash Verified 11/23/18 04:12 Medications Home Medications Medication Instructions Recorded Confirmed Last Taken citalopram 20 mg PO QAM 03/15/18 11/23/18 11/22/18 digoxin 0.125 mg PO QAM 03/15/18 11/23/18 11/22/18 lorazepam 1 mg PO BID PRN 03/15/18 11/23/18 Unknown metoprolol succinate 50 mg PO BID 03/15/18 11/23/18 11/22/18 warfarin 5 mg PO UD 03/15/18 11/23/18 11/22/18 umeclidinium-vilanterol [Anoro 1 ea INHALATION DAILY 11/23/18 11/23/18 11/22/18 Ellipta] Active Medications Generic Name Dose Route Start Last Admin Trade Name Freq PRN Reason Stop Dose Admin Citalopram Hydrobromide 20 mg 11/23/18 09:00 07/06/19 07:45 Celexa PO 12/23/18 08:59 Not Given QAM SARA Digoxin 0.125 mg 11/23/18 16:00 11/23/18 16:23 Lanoxin PO 12/23/18 15:59 0.125 mg DAILY@1600 SARA Administration Folic Acid 1 mg 11/23/18 09:00 11/24/18 07:45 Folvite PO 12/23/18 08:59 Not Given QAM SARA Gabapentin 600 mg 11/24/18 06:00 11/24/18 07:06 Neurontin PO 11/24/18 22:01 Not Given Q8H SARA Potassium Chloride 40 meq/ 1,020 mls @ 50 mls/hr 11/23/18 05:45 11/24/18 0 3:27 Sodium Chloride IV 12/23/18 05:44 50 mls/hr .[id number] SARA Administration Lorazepam 1 mg in 2 mls @ 2 mls/min 11/23/18 06:59 11/23/18 18:19 Ativan IV 12/23/18 06:58 2 mls/min UD PRN Administration EtOH Withdrawl AWSS Score 6,7 Protocol Metoprolol Succinate 50 mg 11/23/18 05:00 11/24/18 07:58 Toprol Xl PO 12/23/18 04:59 50 mg BID SARA Administration Miscellaneous 1 ea 11/23/18 09:00 11/24/18 07:45 Order Awaiting Action N/A 12/23/18 08:59 Not Given DAILY SARA Multivitamins 1 tab 11/23/18 09:00 11/24/18 07:45 Multivitamin Tab PO 12/23/18 08:59 Not Given QAM SARA Thiamine HCl 100 mg 11/24/18 09:00 11/24/18 07:45 Vitamin B-1 PO 12/24/18 08:59 Not Given QAM SARA NPO Date Last Intake of Fluids: 11/24/18 Time Last Intake of Fluids: 07:50 Last Intake of Fluids Comment: sip of water w/ metoprolol Date Last Intake of Solids: 11/24/18 Time Last Intake of Solids: 00:00 Past Medical History Medical History Tobacco use disorder (Chronic) Afib (Chronic) Hyponatremia chronically low. Anemia Atrial fibrillation Cancer LEFT BREAST (CHEMO AND RADIATION) Chronic obstructive pulmonary disease Hypertension Left ventricular enlargement BEING MONITORED BY ASHLY DUMONT Liver enzyme elevation Migraine Exercise / Class Metabolic Activity III < 4 Walking/Shop/Light housework Past Surgical History Surgical History History of section X1 History of colonoscopy History of left cataract extraction History of partial mastectomy LEFT History of tooth extraction Hx of shoulder surgery RT SHOULDER (S/P FX) Past Anesthesia History No Hx of Anesthesia Complications and No Family Hx of Anesthesia Complications History of PONV No Hx of PONV and No Hx of Motion Sickness Social History Smoking Status: Light tobacco smoker tobacco type: cigarettes Smoking cigarettes per day: HX OF 1 PPD Do You Dip or Chew Tobacco: No Hx Alcohol Use: Yes Alcohol type: beer alcohol intake frequency: a few times a week Hx Substance Use: No substance use type: does not use Physical Exam Vital Signs Last Vital Signs Temp 36.5 C 11/24/18 07:10 Pulse 96 H 11/24/18 07:10 Resp 18 11/24/18 07:10 BP 137/81 11/24/18 07:10 Pulse Ox 97 11/24/18 07:10 Testing Laboratory Results 11/24/18 05:32 11/24/18 05:32 PT 10.9 Seconds (9.0-12.0) 11/24/18 05:32 INR 1.1 (0.9-1.1) 11/24/18 05:32 APTT 36.9 Seconds (21.0-31.0) H 11/23/18 02:28 Hemoglobin A1c 5.6 % (4.5-5.6) 11/23/18 02:28 Urine Color Yellow 11/23/18 02:54 Urine Appearance Cloudy (Clear) A 11/23/18 02:54 Urine pH 6.0 (4.5-7.5) 11/23/18 02:54 Ur Specific [place] 1.009 (1.000-1.030) 11/23/18 02:54 Urine Protein Negative (Negative) 11/23/18 02:54 Urine Glucose (UA) Negative (Negative) 11/23/18 02:54 Urine Ketones 1+ (Negative) H 11/23/18 02:54 Urine Nitrite Negative (Negative) 11/23/18 02:54 Ur Leukocyte Esterase 1+ (Negative) H 11/23/18 02:54 Urine WBC (Auto) 1-5 /hpf (0-5) 11/23/18 02:54 Urine RBC (Auto) 0-4 /hpf (0-4) 11/23/18 02:54 U Hyaline Cast (Auto) 1-5 /lpf (0-5) 11/23/18 02:54 U Epithel Cells (Auto) >30 /lpf (0-5) H 11/23/18 02:54 Urine Bacteria (Auto) 4+ (Negative) H 11/23/18 02:54 Blood Type O Negative 11/23/18 02:28 Antibody Screen NEGATIVE 11/23/18 02:28 Electrocardiogram Date: 11/23/18 Poor data quality, interpretation may be adversely affected Atrial fibrillation with rapid ventricular response Moderate voltage criteria for LVH, may be normal variant Nonspecific ST and T wave abnormality Abnormal ECG When compared with ECG of 26-FEB-2017 12:53, Atrial fibrillation has replaced Atrial flutter Nonspecific T wave abnormality, worse in Inferior leads T wave inversion now evident in Lateral leads Confirmed by Arjun David ([id number]) on 11/23/2018 4:50:02 PM Chest X-Ray Date: 11/23/18 XR chest 1V portable CLINICAL HISTORY: pre-op preoperative evaluation COMPARISON STUDY: 02/26/2017 FINDINGS: The bones soft tissues and hemidiaphragms are normal. The cardiomediastinal silhouette is normal. The lungs are clear. The pulmonary vasculature is normal. IMPRESSION: Negative chest. Echocardiogram EF: 65-70% LV Function: normal RWMA: + none mild lvh. NO . Mitral regurg. biatrial enlargement.
--- NOTE | 2018-11-24 08:24 | History & Physical Bridge Note ---
Date of Service November 24, 2018 History & Physical Bridge Note I have examined the patient, reviewed the History & Physical and in the interval since the performance of the History & Physical I have noted the following changes of clinical significance: no changes noted
[2018-11-24] MEDS ORDERED: ONDANSETRON INJ 2 MG/ML 2 ML VIAL IV PRN (08:32)
[2018-11-24] MEDS ORDERED: ePHEDrine sulfate 50 MG/ML AMP IV PRN (08:32)
[2018-11-24] MEDS ORDERED: ATROPINE SULFATE 0.1 MG/ML 10ML SYR IV PRN (08:32)
[2018-11-24] MEDS ORDERED: ALBUMIN HUMAN 5% 12.5 GM/250 ML VIAL IV ONE (08:51)
--- NOTE | 2018-11-24 10:44 | Fluoroscopy Report ---
FL femur RT 2V CLINICAL HISTORY: TROCH NAIL RT COMPARISON STUDY: Right hip 11/23/2018. FLUOROSCOPY TIME: 197 seconds. FINDINGS: 4 fluoroscopic spot images of the right femur demonstrates internal fixation of an intertro chanteric fracture with intramedullary julian and interlocking femoral neck pin. The hardware appears in tact. The alignment is near-anatomic. IMPRESSION: Fluoroscopy provided for internal fixation of a right femoral intertrochanteric fracture. Electronically signed by: Jefferson Vasquez M.D. 11/24/2018 10:43 AM
[2018-11-24] MEDS ORDERED: ACETAMINOPHEN 325 MG TAB PO PRN (10:45)
[2018-11-24] MEDS ORDERED: NALOXONE HCL 0.4 MG/1 ML VIAL/CARP IV PRN (10:45)
[2018-11-24] MEDS ORDERED: MAGNESIUM HYDROXIDE SUSP 30 ML UDC PO PRN (10:45)
[2018-11-24] MEDS ORDERED: HYDROmorphone INJ 0.5 MG/0.5 ML SYR IV PRN (10:45)
--- NOTE | 2018-11-24 10:45 | Operative Report ---
Post Operative Report Pre & Post Diagnosis Operation Date: 11/24/18 07:30 Pre-Op Diagnosis: Right Femur Fracture Post-Op Diagnosis: Right Femur Fracture Procedure Operation Date: 11/24/18 07:30 Actual Procedures p Right Long Troch Nail(Right) - Emerson Clayton MD Surgeon Emerson Clayton MD Connie Cleaner None Estimated Blood Loss 50 Findings Consistent with Post-Op Diagnosis Specimens None Drains None Anesthesia Type Spinal MAC Complications none Disposition Accompanied Patient To Recovery: No Disposition: Recovery Room Indications The patient is a 63-year-old female who was drinking with some friends 2 days ago. She apparently fell off a barstool at night. She had pain of the hip at that point but went to bed. She woke up the next day with continued hip pain. X-rays demonstrated comminuted intertrochanteric as well as sub-troches femur fracture. She is on Coumadin for A. fib. Her INR has been normalized. She presents for surgery. Description of Procedure Risks benefits and alternatives of surgery including but not limited to infection, DVT, PE, pain, stiffness, need for surgery, damage to blood vessels, damage to nerves or risks of anesthesia, were discussed with the patient and her family and they wished to proceed. Patient was identified in the laterality was confirmed and marked. They received a preoperative antibiotic. The patient was transferred to the fracture table. The operative limb was placed in traction and the well leg was placed in a well leg campbell that was well-padded. The arms were well-padded and placed out of the way of the surgical field. I confirmed reduction of the fracture with fluoroscopy with the patient's fracture table and made adjustments to fracture table alignment is necessary to reduce the fracture appropriately. The hip was then prepped and draped in the usual standard manner with ChloraPrep. I made a longitudinal incision proximal to the greater trochanter. I sharply incised through the skin and then used Bovie electrocautery to achieve hemostasis. I incised through the fascia and then bluntly dissected down to the tip of the greater trochanter. Under fluoroscopic guidance I placed a guide pin into the greater trochanter and ensured proper placement on both AP and lateral fluoroscopy views. Once I was satisfied with the position of the guide. I advanced this distally. I then overreamed with the 17 mm proximal reamer. I then placed a Synthes trochanteric fixation nail into position. The size of the nail was long 11 mm / 130 degree x 320 mm. Then I placed the guide arm onto the nail insertion device made a stab incision more distally and then placed the drill guide for the helical blade. I adjusted the position of the nail as necessary to ensure that the guidepin was center center in the femoral head. Once I was satisfied with the position of the pin advanced it to the appropriate position of the femoral head. I then measured and then reamed the lateral cortex and then reamed down into the femoral head. I then inserted a size [address] I then locked the set screw proximally and then compressed the fracture. Then through a stab incision I placed a interlocking screw through the dynamic hole. I then placed an additional screw through the static hole. I confirmed hardware placement and maintenance of reduction on AP and lateral fluoroscopy views. Wounds were then thoroughly irrigated. The fascia was closed with interrupted #1 Vicryl suture. Subcutaneous tissues closed with interrupted 2-0 Vicryl suture and the skin with favian. Sterile dressings applied. All needle and sponge counts were correct at the end of the procedure the patient was transferred to the PACU in stable condition without apparent complication. I attest to the content of the Intraoperative Record and any orders documented therein. Any exceptions are noted below.
--- NOTE | 2018-11-24 11:22 | Anesthesiology Progress Note ---
Date of Service November 24, 2018 Anesthesia Post Procedure Vital Signs Vital Signs: Temp Pulse Pulse Pulse Resp BP Pulse Ox 11/24/18 11:05 92 H 18 128/67 100 11/24/18 10:55 94 H 16 118/78 100 11/24/18 10:46 36.1 C L 99 H 16 126/80 100 11/24/18 07:10 36.5 C 96 H 18 137/81 97 11/24/18 04:00 36.6 C 95 H 20 133/78 97 11/24/18 00:00 89 11/23/18 23:40 36.8 C 92 H 17 123/61 98 11/23/18 19:09 36.4 C L 107 H 16 102/52 L 96 11/23/18 16:23 72 11/23/18 15:32 36.7 C 68 18 96/64 L 96 11/23/18 11:59 36.8 C 85 16 96/61 L 97 Pain Intensity Right Hip: Pain Intensity: 4 Lower Back: Pain Intensity: 2 Transfer of Care Handoff Completed per policy Notes Mental Status: alert / awake / arousable Patient Amnestic to Procedure: Yes Nausea / Vomiting: adequately controlled Pain: adequately controlled Airway Patency, RR, SpO2: stable & adequate BP & HR: stable & adequate Hydration State: stable & adequate Neuraxial Anesthesia: was administered and sensory block is resolving Anesthetic Complications: no major complications apparent and Pt Satisfied with anesthetic care
[2018-11-24] MEDS ORDERED: D5W AND 1/2NSS 1,000 ML IV SCH (11:30)
[2018-11-24] MEDS: ORTHO WARFARIN NOMOGRAM SCH (13:14)
--- NOTE | 2018-11-24 14:14 | Cardiology Progress Note ---
Date of Service November 24, 2018 Assessment & Plan (1) Atrial fibrillation with rapid ventricular response: Atrial fibrillation in the range of 98 -100 beats per minute noted on telemetry. Add short acting diltiazem to prior to hospital dose of metoprolol and digoxin. Resume Coumadin tonight. Knee-high sequential pneumatic compression devices in place while INR remains subtherapeutic. (2) Nonrheumatic mitral valve regurgitation: Fine status presently stable. (3) Closed fracture of right hip: Status post operative intervention today. (4) Alcohol use: Continue gabapentin and lorazepam for withdrawal prophylaxis . Subjective Chief complaint: Follow-up atrial fibrillation, hip fracture Subjective: Patient seen postoperatively. She is a little bit lethargic recovering from anesthesia, but is conversant, and comfortable. Telemetry reveals atrial fibrillation with rates in the range of 90 to 105 bpm. Review of Systems Review of Systems: Unobtainable due to reduced consciousness Physical Exam Constitutional: WD/WN, vitals as above Respiratory: normal respiratory effort, lungs clear to auscultation Cardiovascular: Rate/Rhythm: + tachycardic and + irregularly irregular Heart Sounds: no murmur Extremities: no edema Gastrointestinal (Abdomen): normal bowel sounds, soft, nontender, no hepatosplenomegaly Neurologic: Lethargic, but following commands. Speech is fluent. Results & Data Vital Signs (Past 12 Hours) Vital Signs Temp Pulse Pulse Resp BP Pulse Ox 11/24/18 13:57 36.6 C 84 20 109/67 98 11/24/18 13:06 36.6 C 103 H 20 110/63 94 11/24/18 12:34 93 H 20 99/67 L 95 11/24/18 12:18 93 H 20 118/73 97 11/24/18 12:04 36.9 C 100 H 20 101/64 94 11/24/18 11:50 36.5 C 100 H 20 98/61 L 96 11/24/18 11:30 101 H 15 101/67 100 11/24/18 11:15 36.7 C 88 16 118/67 100 11/24/18 11:05 92 H 18 128/67 100 11/24/18 10:55 94 H 16 118/78 100 11/24/18 10:46 36.1 C L 99 H 16 126/80 100 11/24/18 07:10 36.5 C 96 H 18 137/81 97 11/24/18 04:00 36.6 C 95 H 20 133/78 97 Laboratory Results Coagulation 11/24/18 Range/Units 05:32 PT 10.9 (9.0-12.0) Seconds CBC 11/24/18 Range/Units 05:32 WBC 9.46 (4.8-10.8) K/uL RBC 2.82 L (4.2-5.4) M/uL Hgb 9.5 L (12.0-16.0) g/dL Hct 27.4 L (37-47) % Plt Count 110 L (130-400) K/uL Neut # (Auto) 6.48 (1.4-6.5) K/uL Lymph # (Auto) 1.32 (1.2-3.4) K/uL [place] # (Auto) 1.57 H (0.11-0.59) K/uL Eos # (Auto) 0.01 (0-0.5) K/uL Baso # (Auto) 0.01 (0-0.2) K/uL Comprehensive Metabolic Panel 11/24/18 Range/Units 05:32 Sodium 129 L (136-145) mmol/L Potassium 3.9 (3.5-5.1) mmol/L Chloride 96 L (98-107) mmol/L Carbon Dioxide 23 (21-32) mmol/L BUN 8 (7-18) mg/dl Creatinine 0.37 L (0.6-1.2) mg/dl Glucose 113 H (70-99) mg/dl Calcium 8.2 L (8.5-10.1) mg/dl Intake and Output 11/23/18 11/24/18 11/24/18 22:59 06:59 14:59 Intake Total 1000 / 3275.5 975 / 3275.5 950 / 950 Output Total 300 / 1100 550 / 1100 750 / 750 Balance 700 / 2175.5 425 / 2175.5 200 / 200 Intake: IV 975 / 2275.5 KCl 40 Meq In Nss 1000ML 1,000 975 / 975 ml @ 50 mls/hr IV .[id number] SARA Rx#:[id number] IV Perioperative 950 / 950 Oral 1000 / 1000 Output: Estimated Blood Loss 50 / 50 Urine Amount (Catheter) 300 / 1100 550 / 1100 700 / 700 Diaz/Indwelling 300 / 1100 550 / 1100 700 / 700 Other: Other Intake Source npo Weight 64 kg Patient Weight 11/25/18 06:59 Weight 64 kg INR today 11/24/2018 was 1.1. Diagnostic Findings Summary of transthoracic echocardiogram performed 11/23/2018: No segmental left ventricular wall motion abnormalities the EF normal 65 to 70%. Mild aortic valve sclerosis without stenosis was noted. Moderate mitral regurgitation Moderate tricuspid regurgitation Severe biatrial enlargement noted. (1) Closed fracture of right hip Encounter type: initial encounter Qualified Code(s): S72.001A - Fracture of unspecified part of neck of right femur, initial encounter for closed fracture
--- NOTE | 2018-11-24 14:17 | Hospitalist Progress Note ---
Date of Service November 24, 2018 Assessment & Plan (1) Closed fracture of right hip: Status post fall with traumatic injury causing above Appreciate what input and recommendation Status post Right Long Trach Nail placement Management as per Orth Present on Admission?: Yes (2) Atrial fibrillation with rapid ventricular response: Rate is controlled Received Coumadin 2 reverse high INR before discharge Appreciate cardiology input and recommendation Echo showed ABDOMEN: Soft, non-tender, no organs or masses felt. Bowel sounds normo-active. No bruits. Mild concentric LVH, EF 65 to 70%, no segmental LV wa ll motion abnormalities, left atrial enlargement suggest diastolic dysfunction, aortic sclerosis without stenosis borderline mitral prolapse and severe biatrial enlargement was cleared for surgery Hemodynamically stable (3) Hyponatremia: Sodium level is noted to be 128 on admission This morning it is 129 -11/24 Urine electrolytes are not (4) HTN (hypertension): Blood pressure remains stable We will continue current medications (5) Alcohol use: History of alcohol abuse Does not have any withdrawal symptoms We will continue gabapentin protocol for now DVT prophylaxis Restart Coumadin as soon as possible Subjective 11/24 The patient is seen and examined in telemetry unit Medical history significant for A. fib on Coumadin, hypertension, hyperlipidemia, COPD, pulmonary hypertension, breast cancer left status post surgery/chemoradiation, chronic hyponatremia, mood disorder, ongoing tobacco/alcohol abuse as per records, chronic thrombocytopenia. Admitted with traumatic right hip fracture secondary to fall Status post Right Long Troch nail Remains drowsy following the procedure Review of Systems Review of Systems: All systems reviewed and are unremarkable except as noted below Constitutional: + problem reported (Still remains drowsy status post right hip surgery) Physical Exam Physical Exam: He remains very drowsy and sleepy following surgery Constitutional: + ill appearing Eyes: PERRL, conjunctivae normal, anicteric sclerae ENMT: external ear and nose normal, oropharynx normal Neck: trachea midline, no thyromegaly Respiratory: normal respiratory effort; no respiratory distress Auscultation: + diminished lung sounds; no crackles Cardiovascular: Rate/Rhythm: + abnormal rate and + abnormal rhythm Heart Sounds: no murmur Gastrointestinal (Abdomen): Inspection/Auscultation: abdomen normal to inspection Percussion/Palpation: abdomen soft; abdomen nontender Lymphatic: no cervical or axillary lymphadenopathy Results & Data Vital Signs (Past 12 Hours) Vital Signs Temp Pulse Pulse Resp BP Pulse Ox 11/24/18 13:06 36.6 C 103 H 20 110/63 94 11/24/18 12:34 93 H 20 99/67 L 95 11/24/18 12:18 93 H 20 118/73 97 11/24/18 12:04 36.9 C 100 H 20 101/64 94 11/24/18 11:50 36.5 C 100 H 20 98/61 L 96 11/24/18 11:30 101 H 15 101/67 100 11/24/18 11:15 36.7 C 88 16 118/67 100 11/24/18 11:05 92 H 18 128/67 100 11/24/18 10:55 94 H 16 118/78 100 11/24/18 10:46 36.1 C L 99 H 16 126/80 100 11/24/18 07:10 36.5 C 96 H 18 137/81 97 11/24/18 04:00 36.6 C 95 H 20 133/78 97 Laboratory Results Short CBC 11/24/18 Range/Units 05:32 WBC 9.46 (4.8-10.8) K/uL Hgb 9.5 L (12.0-16.0) g/dL Hct 27.4 L (37-47) % Plt Count 110 L (130-400) K/uL BMP 11/24/18 05:32 Sodium 129 L Potassium 3.9 Chloride 96 L Carbon Dioxide 23 BUN 8 Creatinine 0.37 L Glucose 113 H Calcium 8.2 L Medications Administered Current Inpatient Medications Acetaminophen (Tylenol) 325 mg PO Q4H PRN PRN Reason: Pain or Fever Stop: 12/23/18 06:58 Acetaminophen (Tylenol) 650 mg PO Q6H PRN PRN Reason: Mild Pain (Scale 1,2,3) Stop: 12/24/18 10:44 Bisacodyl (Dulcolax) 10 mg NC DAILY PRN PRN Reason: Constipation Stop: 12/23/18 06:58 Citalopram Hydrobromide (Celexa) 20 mg PO QAM [facility] Stop: 12/23/18 08:59 Last Admin: 11/24/18 07:45 Dose: Not Given Documented by: Digoxin (Lanoxin) 0.125 mg PO DAILY@1600 [facility] Stop: 12/23/18 15:59 Last Admin: 11/23/18 16:23 Dose: 0.125 mg Documented by: Folic Acid (Folvite) 1 mg PO QAM [facility] Stop: 12/23/18 08:59 Last Admin: 11/24/18 07:45 Dose: Not Given Documented by: Gabapentin (Neurontin) 600 mg PO Q12H [facility] Stop: 11/25/18 22:01 Gabapentin (Neurontin) 600 mg PO Q24H [facility] Stop: 11/26/18 22:01 Gabapentin (Neurontin) 600 mg PO Q8H [facility] Stop: 11/24/18 22:01 Last Admin: 11/24/18 12:17 Dose: 600 mg Documented by: Hydromorphone HCl (Dilaudid) 0.25 - 0.5 mg IV Q2H PRN PRN Reason: Moderate/Severe Pain Stop: 12/08/18 10:44 Potassium Chloride 40 meq/ (Sodium Chloride) 1,020 mls @ 50 mls/hr IV .[id number] [facility] Stop: 12/23/18 05:44 Last Admin: 11/24/18 03:27 Dose: 50 mls/hr Documented by: Promethazine HCl 12.5 mg/ (Sodium Chloride) 50.5 mls @ 202 mls/hr IV Q6H PRN PRN Reason: Nausea And Vomiting Stop: 12/23/18 06:58 Lorazepam (Ativan) 1 mg in 2 mls @ 2 mls/min IV UD PRN; Protocol PRN Reason: EtOH Withdrawl AWSS Score 6,7 Stop: 12/23/18 06:58 Last Admin: 11/23/18 18:19 Dose: 2 mls/min Documented by: Lorazepam (Ativan) 2 mg in 4 mls @ 4 mls/min IV UD PRN; Protocol PRN Reason: EtOH Withdrawl AWSS Score 8,9 Stop: 12/23/18 06:58 Lorazepam (Ativan) 3 mg in 6 mls @ 4 mls/min IV ONCE PRN; Protocol PRN Reason: EtOH Withdrawl AWSS Score >=10 Stop: 12/23/18 06:58 Cefazolin Sodium (Ancef 1000mg) 1,000 mg in 7.5 mls @ 2.5 mls/min IV PREOP [facility] Stop: 11/24/18 23:59 Last Admin: 11/24/18 09:16 Dose: 2.5 mls/min Documented by: Cefazolin Sodium (Ancef 1000mg) 1,000 mg in 7.5 mls @ 2.5 mls/min IV Q8H [facility]; Protocol Stop: 11/25/18 01:02 Dextrose/Sodium Chloride (D5w And 1/2nss) 1,000 mls @ 75 mls/hr IV .[id number] [facility] Stop: 12/24/18 11:29 Last Admin: 11/24/18 12:14 Dose: 75 mls/hr Documented by: Ipratropium [place] (Atrovent 0.02% 0.5mg/2.5ml) 0.5 mg INH Q4H PRN PRN Reason: Shortness Of Breath Or Wheezing Stop: 12/23/18 07:59 Levalbuterol HCl (Xopenex 1.25mg/0.5ml Neb) 1.25 mg INH Q4H PRN PRN Reason: Shortness Of Breath Or Wheezing Stop: 12/23/18 07:59 Magnesium Hydroxide (Milk Of Magnesia) 30 ml PO DAILY PRN PRN Reason: Constipation Stop: 12/24/18 10:44 Metoprolol Succinate (Toprol Xl) 50 mg PO BID [facility] Stop: 12/23/18 04:59 Last Admin: 11/24/18 07:58 Dose: 50 mg Documented by: Miscellaneous (Order Awaiting Action) 1 ea N/A DAILY [facility] Stop: 12/23/18 08:59 Last Admin: 11/24/18 07:45 Dose: Not Given Documented by: Miscellaneous Information (Orthopaedic Warfarin Sliding Scale) 1 ea N/A DAILY@1400 [facility]; Protocol Stop: 12/24/18 13:59 Last Admin: 11/24/18 13:14 Dose: 1 ea Documented by: Multivitamins (Multivitamin Tab) 1 tab PO QAM [facility] Stop: 12/23/18 08:59 Last Admin: 11/24/18 07:45 Dose: Not Given Documented by: Naloxone HCl (Narcan) 0.1 mg IV UD PRN PRN Reason: Opiate Overdose Stop: 12/23/18 06:58 Naloxone HCl (Narcan) 0.1 mg IV UD PRN PRN Reason: Opioid Overdose Stop: 12/24/18 10:44 Nitroglycerin (Nitrostat) 0.4 mg SL UD PRN PRN Reason: Chest Pain Stop: 12/23/18 06:58 Oxycodone HCl (Roxicodone Immediate Rel) 5 mg PO Q4H PRN PRN Reason: Moderate Pain (Scale 4,5,6) Stop: 12/08/18 10:44 Polyethylene Glycol (Miralax Powder Packet) 17 gm PO Q6 [facility] Stop: 12/26/18 11:59 Thiamine HCl (Vitamin B-1) 100 mg PO QAM [facility] Stop: 12/24/18 08:59 Last Admin: 11/24/18 07:45 Dose: Not Given Documented by: Warfarin Sodium (Coumadin) 5 mg PO TODAY@1600 [facility] Stop: 11/24/18 16:01 (1) Closed fracture of right hip Encounter type: initial encounter Qualified Code(s): S72.001A - Fracture of unspecified part of neck of right femur, initial encounter for closed fracture
[2018-11-24] MEDS: DIGOXIN 0.125 MG TAB PO SCH (15:58)
[2018-11-24] MEDS ORDERED: WARFARIN SOD 5 MG TAB PO SCH (16:00)
[2018-11-24] MEDS: CEFAZOLIN 1000MG 1,000 MG/7.5 ML SYR IV SCH (16:56)
[2018-11-24] MEDS: dilTIAZem HCL 30 MG TAB PO SCH (20:37)
[2018-11-24 22:19] LABS: BUN Creatinine Ratio 11.5 (10-20); Est GFR (African American) 136.3; Est GFR (Non-African American) 117.6; Magnesium 1.4 mg/dl (1.8-2.4); Potassium 3.1 mmol/L (3.5-5.1)
[2018-11-24] MEDS ORDERED: POTASSIUM CHLORIDE 20 MEQ TABCR PO STA (22:33)
[2018-11-24] MEDS ORDERED: POTASSIUM CHLORIDE 40 MEQ in SODIUM CHLORIDE 0.9% 1000ML 1,000 ML IV ONE (22:45)
[2018-11-24] MEDS: MAGNESIUM SULFATE / D5W 1 GM/100 ML BAG IV SCH (22:57)
[2018-11-25] MEDS: MAGNESIUM SULFATE / D5W 1 GM/100 ML BAG IV SCH (00:12)
[2018-11-25] MEDS: CEFAZOLIN 1000MG 1,000 MG/7.5 ML SYR IV SCH (00:22)
[2018-11-25] MEDS ORDERED: SODIUM CHLORIDE 0.9% 500 ML IV ONE (00:46)
[2018-11-25] MEDS ORDERED: POTASSIUM CHLORIDE 20 MEQ TABCR PO ONE (01:00)
--- NOTE | 2018-11-25 06:18 | Orthopedic Progress Note ---
Date of Service November 25, 2018 Assessment & Plan (1) Closed fracture of right hip: POD #1 s/p Right long troch nail PT- PWB with walker/crutches DVT proph with WILLIAM/SCD/Coumadin can resume labs pending AFib- Coumadin was ordered to resume last evening History of Alcohol use - has been ordered gabapentin and lorazepam for withdrawal prophylaxis . Subjective POD #1 s/p Right Long Troch Nail she is somewhat confused this am, she wasn't aware that she already had her hip surgery, Had to remind her that Dr Clayton fixed it yesterday she denies CP/SOB denies Fever/Chills no nausea/vomiting Physical Exam Physical Exam: Vital Signs Temp 36.7 C 11/25/18 03:48 Pulse 90 11/25/18 03:48 Resp 18 11/25/18 03:48 BP 108/70 11/25/18 03:48 Pulse Ox 96 11/25/18 03:48 Intake & Output 11/24/18 11/24/18 11/25/18 06:59 18:59 06:59 Intake Total 1975 / 3275.5 950 / 3709.583 2759.583 / 3709.58 3 Output Total 850 / 1100 1000 / 2050 1050 / 2050 Balance 1125 / 2175.5 -50 / 4981.107 2190.583 / 1659.58 3 Weight 64 kg Intake: IV 975 / 2275.5 2209.583 / 2209.58 3 D5w and 1/2Nss 1,000 ml @ 75 691.25 / 691.25 mls/hr IV .Q13 H20M [facility] Rx#: [id number] MAGNESIUM SULF ATE / D5W 1 gm In 200 / 200 100 ml @ 100 m ls/hr IV Q1H [facility] Rx#:[id number] KCl 40 Meq In Nss 1000ML 1,000 975 / 975 818.333 / 818.333 ml @ 50 mls/hr IV .[id number] [facility] Rx#:[id number] Nss 500 ml @ 5 00 mls/hr IV .Q1H 500 / 500 ONE Rx#:[id number] IV Perioperative 950 / 950 Oral 1000 / 1000 550 / 550 Output: Estimated Blood Loss 50 / 50 Urine Amount (Ca theter) 850 / 1100 950 / 2000 1050 / 2000 Diaz/Erick ng 850 / 1100 950 / 2000 1050 / 1999 Other: Other Intake Kristin rce npo sips Musculoskeletal: Right Leg: dressing is clean and dry, there is no drainage; calf soft, non-tender, able to wiggle her toes, ankle pumps without difficulty; DP palpable. sensation intact to light touch Results & Data Vital Signs (Past 12 Hours) Vital Signs Temp Pulse Pulse Resp BP Pulse Ox Pulse Ox 11/25/18 03:48 36.7 C 90 18 108/70 96 11/25/18 02:09 85 18 103/62 97 11/25/18 00:44 36.6 C 82 19 85/53 L 97 11/25/18 00:16 88 11/24/18 20:00 96 11/24/18 19:44 36.6 C 88 16 110/69 98 11/24/18 19:24 36.7 C 98 H 16 127/70 98 Laboratory Results am labs pending Diagnostic Findings CLINICAL HISTORY: TROCH NAIL RT COMPARISON STUDY: Right hip 11/23/2018. FLUOROSCOPY TIME: 197 seconds. FINDINGS: 4 fluoroscopic spot images of the right femur demonstrates internal fixation of an intertrochanteric fracture with intramedullary julian and interlocking femoral neck pin. The hardware appears intact. The alignment is near-anatomic. IMPRESSION: Fluoroscopy provided for internal fixation of a right femoral intertrochanteric fracture. (1) Closed fracture of right hip Encounter type: initial encounter Qualified Code(s): S72.001A - Fracture of unspecified part of neck of right femur, initial encounter for closed fracture
[2018-11-25 06:21] LABS: Basophils # (auto) 0.02 K/uL (0-0.2); Basophils % (auto) 0.2 %; Eosinophils # (auto) 0.03 K/uL (0-0.5); Eosinophils % (auto) 0.4 %; Hemoglobin 8.4 g/dL (12.0-16.0); Immature Granulocytes # (auto) 0.05 K/uL (0.00-0.02); Immature Granulocytes % (auto) 0.6 %; Lymphocytes # (auto) 1.44 K/uL (1.2-3.4); Lymphocytes % (auto) 17.3 %; Mean Corpuscular Volume 96.4 fL (80-100); Mean Platelet Volume 10.5 fL (7.4-10.4); Monocytes # (auto) 1.65 K/uL (0.11-0.59); Monocytes % (auto) 19.9 %; Neutrophils # (auto) 5.12 K/uL (1.4-6.5); Neutrophils % (auto) 61.6 %; Platelet Count 131 K/uL (130-400); RDW Coefficient of Variation 13.7 % (11.5-14.5); RDW Standard Deviation 47.1 fL (36.4-46.3); Red Blood Count 2.49 M/uL (4.2-5.4); White Blood Count 8.31 K/uL (4.8-10.8)
[2018-11-25 06:31] LABS: INR 1.1 (0.9-1.1)
[2018-11-25 06:53] LABS: Calcium 7.8 mg/dl (8.5-10.1); Creatinine Clr Calc Pharmacy 169.9 ml/min; Est GFR (African American) 140.8; Est GFR (Non-African American) 121.5; Magnesium 1.7 mg/dl (1.8-2.4); Potassium 3.2 mmol/L (3.5-5.1)
[2018-11-25] MEDS ORDERED: POTASSIUM CHLORIDE 20 MEQ TABCR PO STA (07:34)
[2018-11-25] MEDS ORDERED: MAGNESIUM OXIDE 400 MG TAB PO ONE (07:36)
[2018-11-25] MEDS: NSS + 20MEQ KCL 20 MEQ/1,000 ML BAG IV SCH ×2 (08:21→20:44)
[2018-11-25] MEDS: FOLIC ACID 1 MG TAB PO SCH (08:22)
[2018-11-25] MEDS: THIAMINE HCL 100 MG TAB PO SCH (08:23)
[2018-11-25] MEDS: CITALOPRAM 20 MG TAB PO SCH (08:24)
[2018-11-25] MEDS: dilTIAZem HCL 30 MG TAB PO SCH (08:24)
[2018-11-25] MEDS: MULTIVITAMIN TAB PO SCH (08:24)
[2018-11-25] MEDS: METOPROLOL SUCC 50MG EXT REL TAB PO SCH ×2 (08:29→20:44)
[2018-11-25] MEDS: OXYCODONE HCL IR 5 MG TAB (IMMEDIATE RELEASE) PO PRN (08:36)
[2018-11-25] MEDS: GABAPENTIN 600 MG TAB PO SCH ×2 (11:12→20:45)
[2018-11-25] MEDS: ORTHO WARFARIN NOMOGRAM SCH (12:46)
--- NOTE | 2018-11-25 13:00 | Cardiology Progress Note ---
Date of Service November 25, 2018 Assessment & Plan (1) Atrial fibrillation with rapid ventricular response: Patient with history of chronic atrial fibrillation for which she is on a rate control strategy with metoprolol and digoxin, and anticoagulation with Coumadin. Rates were higher than usual with her acute illness, fracture presentation. Diltiazem was added yesterday, but orthostatic hypotension noted this morning. Discussion with patient and , she has had similar symptoms suggestive of orthostatic hypotension recently as an outpatient. We will continue metoprolol, discontinue the oral diltiazem. Increase digoxin from 0.125 mg to 0.25 mg daily. Digoxin level performed on 11/23 was on the lower side so I think there is room for increasing this medication. Continue Coumadin reinitiation Her INR had been reversed to allow surgery. (2) Nonrheumatic mitral valve regurgitation: Stable. (3) Orthostatic hypotension: Discontinue diltiazem as noted start knee-high compression stockings. Start midodrine 2.5 mg 3 times daily and monitor effect while in the hospital. (4) Hyponatremia: Sodium trending down, low potassium also noted. Patient is received IV potassium, and is receiving potassium chloride plus normal saline. She may have an ADHD syndrome in the setting of recovering from her surgery. (5) Closed fracture of right hip: Fracture occurred in the setting of suspected intoxication and resultant fall. Patient is status post operative intervention on 11/24/2018. (6) Alcohol use: Continue withdrawal prophylaxis. Subjective Chief complaint: Follow-up atrial fibrillation, episode of low blood pressure earlier today Subjective: Patient seen, was also at bedside. Atrial fibrillation with controlled ventricular rates in the range of 70 bpm noted. She remains lethargic, but responds to commands, and is conversant with prompting. Her tells me that she has had recent issues with feeling dizzy when she stands from a seated position. She been seen by primary care, and reducing and weaning her from citalopram was discussed. Earlier today when she got out of bed, her dizziness symptoms were reproduced, and her systolic blood pressure was in the mid 70 mmHg range. She was placed back in bed and her blood pressures improved to the 90 mmHg range. Review of Systems Review of Systems: All systems reviewed & are unremarkable except as noted in HPI & below Physical Exam Physical Exam: Temp Pulse Resp BP Pulse Ox 36.8 C 74 16 103/64 95 11/25/18 11:47 11/25/18 11:52 11/25/18 11:47 11/25/18 11:52 11/25/18 11:47 Constitutional: Somnolent, ill in appearance Respiratory: normal respiratory effort, lungs clear to auscultation Cardiovascular: Rate/Rhythm: + irregularly irregular Heart Sounds: no murmur and no cardiac rub Gastrointestinal (Abdomen): normal bowel sounds, soft, nontender, no hepatosplenomegaly Neurologic: moves all extremities; no focal motor deficits Results & Data Vital Signs (Past 12 Hours) Vital Signs Temp Pulse Resp BP Pulse Ox 11/25/18 11:52 74 103/64 11/25/18 11:47 36.8 C 83 16 73/46 L 95 11/25/18 09:02 94 H 97/63 L 11/25/18 08:55 70 75/47 L 11/25/18 06:53 36.7 C 94 H 20 107/69 98 11/25/18 03:48 36.7 C 90 18 108/70 96 11/25/18 02:09 85 18 103/62 97 Laboratory Results Coagulation 11/25/18 Range/Units 05:33 PT 11.0 (9.0-12.0) Seconds CBC 11/25/18 Range/Units 05:33 WBC 8.31 (4.8-10.8) K/uL RBC 2.49 L (4.2-5.4) M/uL Hgb 8.4 L (12.0-16.0) g/dL Hct 24.0 L (37-47) % Plt Count 131 (130-400) K/uL Neut # (Auto) 5.12 (1.4-6.5) K/uL Lymph # (Auto) 1.44 (1.2-3.4) K/uL Morton # (Auto) 1.65 H (0.11-0.59) K/uL Eos # (Auto) 0.03 (0-0.5) K/uL Baso # (Auto) 0.02 (0-0.2) K/uL Comprehensive Metabolic Panel 11/24/18 11/25/18 Range/Units 21:31 05:33 Sodium 125 L 125 L (136-145) mmol/L Potassium 3.1 L D 3.2 L (3.5-5.1) mmol/L Chloride 90 L 93 L (98-107) mmol/L Carbon Dioxide 27 25 (21-32) mmol/L BUN 4 L 4 L (7-18) mg/dl Creatinine 0.32 L 0.29 L (0.6-1.2) mg/dl Glucose 120 H 101 H (70-99) mg/dl Calcium 8.0 L 7.8 L (8.5-10.1) mg/dl Intake and Output 11/24/18 11/25/18 11/25/18 22:59 06:59 14:59 Intake Total 1909.583 / 3709.583 850 / 3709.583 510.417 / 510.417 Output Total / 0 550 / 0 Balance 1409.583 / 1659.583 300 / 1659.583 510.417 / 510.417 Intake: IV 1509.583 / 2209.583 700 / 2209.583 510.417 / 510.417 D5w and 1/2Nss 1,000 ml @ 75 691.25 / 691.25 308.75 / 308.75 mls/hr IV .[id number] [facility] Rx#: [id number] MAGNESIUM SULFATE / D5W 1 gm In 200 / 200 100 ml @ 100 mls/hr IV Q1H [facility] Rx#:[id number] KCl 40 Meq In Nss 1000ML 1,000 818.333 / 818.333 201.667 / 201.667 ml @ 50 mls/hr IV .[id number] [facility] Rx#:[id number] Nss 500 ml @ 500 mls/hr IV .Q1H 500 / 500 ONE Rx#:[id number] Oral 400 / 550 150 / 550 Output: Urine Amount (Catheter) / 1999 550 / 2000 Diaz/Indwelling / 1999 550 / 1999 (1) Closed fracture of right hip Encounter type: initial encounter Qualified Code(s): S72.001A - Fracture of unspecified part of neck of right femur, initial encounter for closed fracture
--- NOTE | 2018-11-25 14:53 | Hospitalist Progress Note ---
Date of Service November 25, 2018 Assessment & Plan (1) Closed fracture of right hip: Status post fall with traumatic injury causing above Appreciate what input and recommendation Status post Right Long Trach Nail placement on 11/24 POD #1 Management as per Ortho PT/OT evaluation (2) Atrial fibrillation with rapid ventricular response: Rate is controlled Received Coumadin 2 reverse high INR before discharge Appreciate cardiology input and recommendation Echo showed ABDOMEN: Soft, non-tender, no organs or masses felt. Bowel sounds normo-active. No bruits. Mild concentric LVH, EF 65 to 70%, no segmental LV wall motion abnormalities, left atrial enlargement suggest diastolic dysfunction, aortic sclerosis without stenosis borderline mitral prolapse and severe biatrial enlargement was cleared for surgery Hemodynamically stable (3) Hyponatremia: Sodium level is noted to be 128 on admission Sodium level went down to 125 early this morning of 11/25 Half-normal saline was stopped and started with cautious dose of normal saline infusion Will recheck PRP around 4 PM today (4) HTN (hypertension): Blood pressure remains stable We will continue current medications Has significant postural hypotension Adequate fluid replacement Precaution to avoid falls (5) Alcohol use: History of alcohol abuse Does not have any withdrawal symptoms We will continue gabapentin protocol for now DVT prophylaxis Coumadin restarted Subjective 11/24 The patient is seen and examined in telemetry unit Medical history significant for A. fib on Coumadin, hypertension, hyperlipidemia, COPD, pulmonary hypertension, breast cancer left status post surgery/chemoradiation, chronic hyponatremia, mood disorder, ongoing tobacco/alcohol abuse as per records, chronic thrombocytopenia. Admitted with traumatic right hip fracture secondary to fall Status post Right Long Troch nail Remains drowsy following the procedure 11/25 Patient was seen and examined in telemetry unit She remains drowsy following the surgical procedure Awakes at times and converse reasonably Noted to have very low blood pressure last night and received bolus of normal saline 500 MLS Blood pressure remains in the lower side Denies any acute symptoms during my examination Review of Systems Review of Systems: All systems reviewed and are unremarkable except as noted below Constitutional: + malaise, + weakness and + problem reported (Still remains drowsy status post right hip surgery) Respiratory: no cough and no dyspnea Cardiovascular: no chest pain Musculoskeletal: Complaints pain at the right hip Physical Exam Physical Exam: Remains drowsy in bed without any acute distress Constitutional: well developed and + ill appearing; no acute distress Eyes: PERRL, conjunctivae normal, anicteric sclerae ENMT: external ear and nose normal, oropharynx normal Neck: trachea midline, no thyromegaly Respiratory: normal respiratory effort; no respiratory distress Auscultation: + diminished lung sounds; no crackles Cardiovascular: Rate/Rhythm: + abnormal rate and + abnormal rhythm Heart Sounds: no murmur Gastrointestinal (Abdomen): Inspection/Auscultation: abdomen normal to inspection Percussion/Palpation: abdomen soft; abdomen nontender Musculoskeletal: Any movement of the right lower extremity produced pain in the right hip Neurologic: Alert and awake. Very drowsy. Comminuted intermittent Lymphatic: no cervical or axillary lymphadenopathy Results & Data Vital Signs (Past 12 Hours) Vital Signs Temp Pulse Resp BP Pulse Ox 11/25/18 11:52 74 103/64 11/25/18 11:47 36.8 C 83 16 73/46 L 95 11/25/18 09:02 94 H 97/63 L 11/25/18 08:55 70 75/47 L 11/25/18 06:53 36.7 C 94 H 20 107/69 98 11/25/18 03:48 36.7 C 90 18 108/70 96 Laboratory Results Short CBC 11/25/18 Range/Units 05:33 WBC 8.31 (4.8-10.8) K/uL Hgb 8.4 L (12.0-16.0) g/dL Hct 24.0 L (37-47) % Plt Count 131 (130-400) K/uL BMP 11/24/18 11/25/18 21:31 05:33 Sodium 125 L 125 L Potassium 3.1 L D 3.2 L Chloride 90 L 93 L Carbon Dioxide 27 25 BUN 4 L 4 L Creatinine 0.32 L 0.29 L Glucose 120 H 101 H Calcium 8.0 L 7.8 L Medications Administered Current Inpatient Medications Acetaminophen (Tylenol) 650 mg PO Q6H PRN PRN Reason: Mild Pain (Scale 1,2,3) Stop: 12/24/18 10:44 Bisacodyl (Dulcolax) 10 mg GA DAILY PRN PRN Reason: Constipation Stop: 12/23/18 06:58 Citalopram Hydrobromide (Celexa) 10 mg PO QAM [facility] Stop: 12/26/18 08:59 Digoxin (Lanoxin) 0.25 mg PO DAILY@1600 [facility] Stop: 12/25/18 15:59 Folic Acid (Folvite) 1 mg PO QAM [facility] Stop: 12/23/18 08:59 Last Admin: 11/25/18 08:22 Dose: 1 mg Documented by: Gabapentin (Neurontin) 600 mg PO Q12H [facility] Stop: 11/25/18 22:01 Last Admin: 11/25/18 11:12 Dose: Not Given Documented by: Gabapentin (Neurontin) 600 mg PO Q24H [facility] Stop: 11/26/18 22:01 Hydromorphone HCl (Dilaudid) 0.25 - 0.5 mg IV Q2H PRN PRN Reason: Moderate/Severe Pain Stop: 12/08/18 10:44 Promethazine HCl 12.5 mg/ (Sodium Chloride) 50.5 mls @ 202 mls/hr IV Q6H PRN PRN Reason: Nausea And Vomiting Stop: 12/23/18 06:58 Lorazepam (Ativan) 1 mg in 2 mls @ 2 mls/min IV UD PRN; Protocol PRN Reason: EtOH Withdrawl AWSS Score 6,7 Stop: 12/23/18 06:58 Last Admin: 11/23/18 18:19 Dose: 2 mls/min Documented by: Lorazepam (Ativan) 2 mg in 4 mls @ 4 mls/min IV UD PRN; Protocol PRN Reason: EtOH Withdrawl AWSS Score 8,9 Stop: 12/23/18 06:58 Lorazepam (Ativan) 3 mg in 6 mls @ 4 mls/min IV ONCE PRN; Protocol PRN Reason: EtOH Withdrawl AWSS Score >=10 Stop: 12/23/18 06:58 Potassium Chloride 40 meq/ (Sodium Chloride) 1,020 mls @ 50 mls/hr IV .[id number] [facility] Stop: 11/25/18 19:08 Last Admin: 11/24/18 22:56 Dose: 50 mls/hr Documented by: Potassium Chloride/Sodium Chloride (Normal Saline W/20 Meq Kcl) 20 meq in 1,000 mls @ 80 mls/hr IV .[id number] [facility] Stop: 11/26/18 08:59 Last Admin: 11/25/18 08:21 Dose: 80 mls/hr Documented by: Ipratropium [place] (Atrovent 0.02% 0.5mg/2.5ml) 0.5 mg INH Q4H PRN PRN Reason: Shortness Of Breath Or Wheezing Stop: 12/23/18 07:59 Levalbuterol HCl (Xopenex 1.25mg/0.5ml Neb) 1.25 mg INH Q4H PRN PRN Reason: Shortness Of Breath Or Wheezing Stop: 12/23/18 07:59 Magnesium Hydroxide (Milk Of Magnesia) 30 ml PO DAILY PRN PRN Reason: Constipation Stop: 12/24/18 10:44 Metoprolol Succinate (Toprol Xl) 50 mg PO BID [facility] Stop: 12/23/18 04:59 Last Admin: 11/25/18 08:29 Dose: 50 mg Documented by: Midodrine (Proamatine) 2.5 mg PO TID@0800,1200,1700 [facility] Stop: 12/25/18 16:59 Miscellaneous (Order Awaiting Action) 1 ea N/A DAILY [facility] Stop: 12/23/18 08:59 Last Admin: 11/25/18 08:25 Dose: Not Given Documented by: Miscellaneous Information (Orthopaedic Warfarin Sliding Scale) 1 ea N/A DAILY@1400 [facility]; Protocol Stop: 12/24/18 13:59 Last Admin: 11/25/18 12:46 Dose: Not Given Documented by: Multivitamins (Multivitamin Tab) 1 tab PO QAM [facility] Stop: 12/23/18 08:59 Last Admin: 11/25/18 08:24 Dose: 1 tab Documented by: Naloxone HCl (Narcan) 0.1 mg IV UD PRN PRN Reason: Opiate Overdose Stop: 12/23/18 06:58 Naloxone HCl (Narcan) 0.1 mg IV UD PRN PRN Reason: Opioid Overdose Stop: 12/24/18 10:44 Nitroglycerin (Nitrostat) 0.4 mg SL UD PRN PRN Reason: Chest Pain Stop: 12/23/18 06:58 Oxycodone HCl (Roxicodone Immediate Rel) 5 mg PO Q4H PRN PRN Reason: Moderate Pain (Scale 4,5,6) Stop: 12/08/18 10:44 Last Admin: 11/25/18 08:36 Dose: 5 mg Documented by: Polyethylene Glycol (Miralax Powder Packet) 17 gm PO Q6 [facility] Stop: 12/26/18 11:59 Thiamine HCl (Vitamin B-1) 100 mg PO QAM [facility] Stop: 12/24/18 08:59 Last Admin: 11/25/18 08:23 Dose: 100 mg Documented by: Warfarin Sodium (Coumadin) 5 mg PO TODAY@1600 [facility] Stop: 11/25/18 16:01 (1) Closed fracture of right hip Encounter type: initial encounter Qualified Code(s): S72.001A - Fracture of unspecified part of neck of right femur, initial encounter for closed fracture
[2018-11-25] MEDS: DIGOXIN 0.25 MG TAB PO SCH (15:15)
[2018-11-25] MEDS ORDERED: WARFARIN SOD 5 MG TAB PO SCH (16:00)
[2018-11-25 16:07] LABS: BUN Creatinine Ratio 17.7 (10-20); Calcium 8.3 mg/dl (8.5-10.1); Creatinine Clr Calc Pharmacy 126.4 ml/min; Est GFR (African American) 127.7; Est GFR (Non-African American) 110.2; Potassium 3.8 mmol/L (3.5-5.1)
[2018-11-25] MEDS: MIDODRINE HCL 2.5 MG TAB PO SCH (16:17)
[2018-11-26] MEDS: LORazepam 1 MG/2 ML VIAL IV PRN ×2 (03:06→18:22)
[2018-11-26 06:24] LABS: INR 1.1 (0.9-1.1); Prothrombin Time 11.4 Seconds (9.0-12.0)
[2018-11-26 06:37] LABS: BUN Creatinine Ratio 17.3 (10-20); Calcium 8.2 mg/dl (8.5-10.1); Creatinine Clr Calc Pharmacy 189.5 ml/min; Est GFR (Non-African American) 125.9; Potassium 3.6 mmol/L (3.5-5.1)
--- NOTE | 2018-11-26 07:30 | Anesthesiology Progress Note ---
Date of Service November 26, 2018 Anesthesia Post Procedure Vital Signs Vital Signs: Temp Pulse Pulse Pulse Resp BP Pulse Ox 11/26/18 07:24 37.1 C 96 H 16 133/83 96 11/26/18 03:38 37.3 C 106 H 18 122/79 96 11/26/18 00:26 88 11/25/18 23:16 36.9 C 93 H 18 135/80 97 11/25/18 19:19 36.5 C 92 H 22 103/66 98 11/25/18 15:26 36.8 C 93 H 16 91/61 L 96 11/25/18 15:15 85 11/25/18 11:52 74 103/64 11/25/18 11:47 36.8 C 83 16 73/46 L 95 11/25/18 09:02 94 H 97/63 L 11/25/18 08:55 70 75/47 L Pain Intensity Right Hip: Pain Intensity: 4 Lower Back: Pain Intensity: 2 Notes Mental Status: alert / awake / arousable and participated in evaluation Patient Amnestic to Procedure: Yes Nausea / Vomiting: adequately controlled Pain: adequately controlled Airway Patency, RR, SpO2: stable & adequate BP & HR: stable & adequate Hydration State: stable & adequate Neuraxial Anesthesia: was administered and sensory block resolved Anesthetic Complications: no major complications apparent and Pt Satisfied with anesthetic care
[2018-11-26] MEDS: FOLIC ACID 1 MG TAB PO SCH (08:27)
[2018-11-26] MEDS: THIAMINE HCL 100 MG TAB PO SCH (08:27)
[2018-11-26] MEDS: METOPROLOL SUCC 50MG EXT REL TAB PO SCH ×2 (08:27→20:17)
[2018-11-26] MEDS: MULTIVITAMIN TAB PO SCH (08:27)
[2018-11-26] MEDS: CITALOPRAM 20 MG TAB PO SCH (08:27)
[2018-11-26] MEDS: MIDODRINE HCL 2.5 MG TAB PO SCH ×3 (08:28→16:47)
--- NOTE | 2018-11-26 10:14 | Cardiology Progress Note ---
Date of Service November 26, 2018 Assessment & Plan (1) Atrial fibrillation with rapid ventricular response: Patient with history of chronic atrial fibrillation. Continue rate control with metoprolol succinate 50 mg twice daily. Prior to hospital dose of digoxin 0.125 mg daily increased to 0.25 mg daily. Ventricular rates relatively well controlled at rest in the 80 to 90 bpm range on telemetry. Stroke prophylaxis: Received first postoperative dose of Coumadin yesterday 11/25/2018. Hemoglobin had been 8.4 yesterday. We will continue Coumadin 5 mg daily, repeat CBC tomorrow. Avoiding heparin bridge due to low blood count, recent surgery to avoid bleeding convocation. (2) Orthostatic hypotension: Orthostatic hypotension documented yesterday with dizziness that correlated with decline in systolic blood pressure while standing. The patient is apparently had ongoing recent issues with this as an outpatient. Midodrine initiated. Blood pressures stable without being too high or too low at present. There is been concern as an outpatient that her citalopram was contributing to dizziness. I have therefore reduce the dose from 20 mg to 10 mg and consideration of weaning this. (3) Alcohol use: (4) Nonrheumatic mitral valve regurgitation: Continue to follow. Patient without symptoms to suggest congestive heart failure. (5) Closed fracture of right hip: Status post mechanical fall, seemingly related in part to alcohol ingestion. Underwent surgical intervention for right hip fracture. Alcohol cessation recommended. Patient is on pharmacologic withdrawal prophylaxis protocol. Subjective Chief complaint: Follow-up atrial fibrillation with elevated ventricular rates, dizziness, orthostatic hypotension, lethargy Subjective: Patient much more alert today. She is sitting up in bed fed herself breakfast. She notes feeling improved. Her most recent blood pressure at 7:24 AM was 133/83, with most recent lowest blood pressure reading of 91/61 yesterday at 1526. She had 2 episodes of hypotension documented yesterday morning with a systolic blood pressures in the 70s when she got up out of bed. Review of Systems Review of Systems: All systems reviewed & are unremarkable except as noted in HPI & below Physical Exam Physical Exam: Temp Pulse Resp BP Pulse Ox 37.1 C 96 H 16 133/83 96 11/26/18 07:24 11/26/18 07:24 11/26/18 07:24 11/26/18 07:24 11/26/18 07:24 Constitutional: + ill appearing; no acute distress Respiratory: normal respiratory effort, lungs clear to auscultation Cardiovascular: Rate/Rhythm: + irregularly irregular Heart Sounds: no murmur Vessels: no JVD Extremities: no edema Gastrointestinal (Abdomen): normal bowel sounds, soft, nontender, no hepatosplenomegaly Neurologic: moves all extremities; no focal motor deficits (1) Closed fracture of right hip Encounter type: initial encounter Qualified Code(s): S72.001A - Fracture of unspecified part of neck of right femur, initial encounter for closed fracture
--- NOTE | 2018-11-26 12:12 | Hospitalist Progress Note ---
Date of Service November 26, 2018 Assessment & Plan (1) Closed fracture of right hip: S/p fall after drinking too much alcohol Right hip xray showed comminuted intertrochanteric fracture right hip with extension to the proximal femoral shaft. Status post Right Long Trach Nail placement on 11/[address] Clayton Continue pain management as per ortho PT/OT eval Fall precaution (2) Atrial fibrillation with rapid ventricular response: Rate controlled now with metoprolol and digoxin Continue digoxin 0.25mg Cardiology on board Continue coumadin 5mg, INR 1.1 today Echo showed Mild concentric LVH, EF 65 to 70%, no segmental LV wall motion a bnormalities, left atrial enlargement suggest diastolic dysfunction, aortic sclerosis without stenosis borderline mitral prolapse and severe biatrial enlargement Continue monitor in tele (3) Hyponatremia: Sodium level is noted to be 128 on admission Sodium level slightly increased to 129 Continue monitor BMP (4) HTN (hypertension): Blood pressure remains stable We will continue current medications Orthostatic hypotension Citalopram decreased to 10mg daily Fall precaution (5) Alcohol use: Continue gabapentin and ativan alcohol withdrawn protocol Seems a little confused today Will add a low dose of Librium for now Will monitor closely for DT DVT prophylaxis On Coumadin with INR 1.1 CODE STATUS FULL CODE Subjective Pt was seen and examined Lying in bed with no distress Pt seems to be a little confuse She said that she was watching TV, while the TV was off in her room She knew that she was in the hospital and didn't know the ER Denied any chest pain, palpitation, dizziness and SOB Physical Exam Physical Exam: General- No acute distress, slightly confused Head- atraumatic Eyes- PERRL, EOMI, No nystagmus ENT- oropharynx clear Neck- supple, no JVD Lungs- clear to auscultation Heart- irregular rhythm; no murmur Abdomen- normal bowel sounds, soft, nontender Extremities- no calf tenderness Neuro- alert, PERRL, EOMI; no facial palsy; no dysarthria, follow commands Skin- warm & dry Results & Data Vital Signs (Past 12 Hours) Vital Signs Temp Pulse Pulse Pulse Resp BP Pulse Ox 11/26/18 11:22 36.6 C 85 16 114/71 98 11/26/18 07:24 37.1 C 96 H 16 133/83 96 11/26/18 03:38 37.3 C 106 H 18 122/79 96 11/26/18 00:26 88 (1) Closed fracture of right hip Encounter type: initial encounter Qualified Code(s): S72.001A - Fracture of unspecified part of neck of right femur, initial encounter for closed fracture
--- NOTE | 2018-11-26 12:23 | Orthopedic Progress Note ---
Date of Service November 26, 2018 Assessment & Plan (1) Closed fracture of right hip: 63 yo female POD #3 s/p right troch nail, in PCU for monitoring 1. Med management 2. DVT prophylaxis- pt has resumed Coumadin, SCDs 3. PT/OT 4. D/C planning- referral made to [facility], ortho to sign off, pt to follow-up with Dr Clayton in office 10-14 days post-op Subjective Pt resting in bed, drowsy, arousable and will answer questions, unsure of baseline, pain controlled, denies complaints Physical Exam Physical Exam: Dressing intact, thigh soft, ecchymotic, toes mobile, NVI Results & Data Vital Signs (Past 12 Hours) Vital Signs Temp Pulse Pulse Pulse Resp BP Pulse Ox 11/26/18 11:22 36.6 C 85 16 114/71 98 11/26/18 07:24 37.1 C 96 H 16 133/83 96 11/26/18 03:38 37.3 C 106 H 18 122/79 96 11/26/18 00:26 88 Laboratory Results Abnormal Labs 11/23/18 11/23/18 11/23/18 02:28 02:28 02:28 WBC 11.32 H RBC 3.49 L Hgb Hct 33.5 L MCH 34.4 H RDW Std Deviation 46.9 H Plt Count 115 L MPV 11.3 H Immature Gran # (Auto) 0.04 H Neut # (Auto) 8.97 H Lymph # (Auto) 1.01 L Jenkins # (Auto) 1.29 H PT 20.9 H INR 2.2 H APTT 36.9 H Sodium 128 L Potassium 3.1 L Chloride 91 L BUN Creatinine 0.51 L BUN/Creatinine Ratio 21.7 H Glucose 127 H Osmolality Calcium 8.2 L Magnesium 1.4 L Total Bilirubin 1.5 H Direct Bilirubin 0.4 H AST 90 H Albumin 3.1 L TSH 4.590 H Urine Appearance Urine Ketones Urine Blood Ur Leukocyte Esterase U Epithel Cells (Auto) Urine Bacteria (Auto) Urine Osmolality Digoxin 11/23/18 11/23/18 11/23/18 02:54 02:54 04:50 WBC RBC Hgb Hct MCH RDW Std Deviation Plt Count MPV Immature Gran # (Auto) Neut # (Auto) Lymph # (Auto) Jenkins # (Auto) PT INR APTT Sodium Potassium Chloride BUN Creatinine BUN/Creatinine Ratio Glucose Osmolality 264 L Calcium Magnesium Total Bilirubin Direct Bilirubin AST Albumin TSH Urine Appearance Cloudy A Urine Ketones 1+ H Urine Blood Trace H Ur Leukocyte Esterase 1+ H U Epithel Cells (Auto) >30 H Urine Bacteria (Auto) 4+ H Urine Osmolality 246 L Digoxin 11/23/18 11/23/18 11/23/18 04:50 11:54 11:54 WBC RBC Hgb Hct MCH RDW Std Deviation Plt Count MPV Immature Gran # (Auto) Neut # (Auto) Lymph # (Auto) Jenkins # (Auto) PT 13.5 H INR 1.3 H APTT Sodium 129 L Potassium Chloride 96 L BUN Creatinine 0.42 L BUN/Creatinine Ratio 26.1 H Glucose 101 H Osmolality Calcium 8.4 L Magnesium 2.6 H Total Bilirubin Direct Bilirubin AST Albumin TSH Urine Appearance Urine Ketones Urine Blood Ur Leukocyte Esterase U Epithel Cells (Auto) Urine Bacteria (Auto) Urine Osmolality Digoxin 0.2 L 11/24/18 11/24/18 11/24/18 05:32 05:32 21:31 WBC RBC 2.82 L Hgb 9.5 L Hct 27.4 L MCH RDW Std Deviation 48.0 H Plt Count 110 L MPV 10.8 H Immature Gran # (Auto) 0.07 H Neut # (Auto) Lymph # (Auto) Jenkins # (Auto) 1.57 H PT INR APTT Sodium 129 L 125 L Potassium 3.1 L D Chloride 96 L 90 L BUN 4 L Creatinine 0.37 L 0.32 L BUN/Creatinine Ratio 22.6 H Glucose 113 H 120 H Osmolality Calcium 8.2 L 8.0 L Magnesium 1.4 L Total Bilirubin Direct Bilirubin AST Albumin TSH Urine Appearance Urine Ketones Urine Blood Ur Leukocyte Esterase U Epithel Cells (Auto) Urine Bacteria (Auto) Urine Osmolality Digoxin 11/25/18 11/25/18 11/25/18 05:33 05:33 15:33 WBC RBC 2.49 L Hgb 8.4 L Hct 24.0 L MCH RDW Std Deviation 47.1 H Plt Count MPV 10.5 H Immature Gran # (Auto) 0.05 H Neut # (Auto) Lymph # (Auto) Jenkins # (Auto) 1.65 H PT INR APTT Sodium 125 L 128 L Potassium 3.2 L Chloride 93 L 94 L BUN 4 L Creatinine 0.29 L 0.39 L BUN/Creatinine Ratio Glucose 101 H 100 H Osmolality Calcium 7.8 L 8.3 L Magnesium 1.7 L Total Bilirubin Direct Bilirubin AST Albumin TSH Urine Appearance Urine Ketones Urine Blood Ur Leukocyte Esterase U Epithel Cells (Auto) Urine Bacteria (Auto) Urine Osmolality Digoxin 11/26/18 05:36 WBC RBC Hgb Hct MCH RDW Std Deviation Plt Count MPV Immature Gran # (Auto) Neut # (Auto) Lymph # (Auto) Jenkins # (Auto) PT INR APTT Sodium 129 L Potassium Chloride 95 L BUN 5 L Creatinine 0.26 L BUN/Creatinine Ratio Glucose Osmolality Calcium 8.2 L Magnesium Total Bilirubin Direct Bilirubin AST Albumin TSH Urine Appearance Urine Ketones Urine Blood Ur Leukocyte Esterase U Epithel Cells (Auto) Urine Bacteria (Auto) Urine Osmolality Digoxin 11/26/18 11/26/18 11/25/18 Range/Units 05:36 05:36 15:33 PT 11.4 (9.0-12.0) Seconds INR 1.1 (0.9-1.1) Sodium 129 L 128 L (136-145) mmol/L Potassium 3.6 3.8 D (3.5-5.1) mmol/L Chloride 95 L 94 L (98-107) mmol/L Carbon Dioxide 23 27 (21-32) mmol/L Anion Gap 11.0 7.0 (3-11) BUN 5 L 7 (7-18) mg/dl Creatinine 0.26 L 0.39 L (0.6-1.2) mg/dl Est Cr Clr Drug Dosing 189.5 126.4 ml/min Est GFR ( Amer) 146.0 127.7 Est GFR (Non-Af Amer) 125.9 110.2 BUN/Creatinine Ratio 17.3 17.7 (10-20) Glucose 93 100 H (70-99) mg/dl Calcium 8.2 L 8.3 L (8.5-10.1) mg/dl (1) Closed fracture of right hip Encounter type: initial encounter Qualified Code(s): S72.001A - Fracture of unspecified part of neck of right femur, initial encounter for closed fracture
[2018-11-26] MEDS: chlordiazePOXIDE HCl 5 MG CAP PO SCH ×2 (12:33→20:17)
[2018-11-26] MEDS: POLYETHYLENE (MIRALAX) 17 GM PACK PO SCH ×3 (12:34→23:54)
[2018-11-26] MEDS: ORTHO WARFARIN NOMOGRAM SCH (14:11)
[2018-11-26] MEDS: WARFARIN SOD 5 MG TAB PO SCH (16:47)
[2018-11-26] MEDS: DIGOXIN 0.25 MG TAB PO SCH (16:48)
[2018-11-26] MEDS ORDERED: GABAPENTIN 600 MG TAB PO SCH (22:00)
[2018-11-27] MEDS: POLYETHYLENE (MIRALAX) 17 GM PACK PO SCH ×4 (05:46→23:33)
[2018-11-27 06:27] LABS: Hematocrit (blood only) 25.7 % (37-47); Hemoglobin 8.9 g/dL (12.0-16.0); Mean Corpuscular Hgb Conc 34.6 g/dL (32-36); Mean Corpuscular Volume 98.1 fL (80-100); Mean Platelet Volume 9.9 fL (7.4-10.4); Platelet Count 223 K/uL (130-400); RDW Coefficient of Variation 14.8 % (11.5-14.5); RDW Standard Deviation 50.1 fL (36.4-46.3); Red Blood Count 2.62 M/uL (4.2-5.4); White Blood Count 6.08 K/uL (4.8-10.8)
[2018-11-27 06:36] LABS: INR 1.1 (0.9-1.1); Prothrombin Time 11.4 Seconds (9.0-12.0)
[2018-11-27] MEDS: MIDODRINE HCL 2.5 MG TAB PO SCH ×3 (08:08→17:00)
[2018-11-27] MEDS: FOLIC ACID 1 MG TAB PO SCH (08:10)
[2018-11-27] MEDS: CITALOPRAM 20 MG TAB PO SCH (08:11)
[2018-11-27] MEDS: MULTIVITAMIN TAB PO SCH (08:11)
[2018-11-27] MEDS: THIAMINE HCL 100 MG TAB PO SCH (08:12)
[2018-11-27] MEDS: METOPROLOL SUCC 50MG EXT REL TAB PO SCH ×3 (08:12→20:12)
[2018-11-27] MEDS: chlordiazePOXIDE HCl 5 MG CAP PO SCH (08:14)
[2018-11-27 08:28] LABS: BUN Creatinine Ratio 13.3 (10-20); Creatinine Clr Calc Pharmacy 154.7 ml/min; Est GFR (Non-African American) 116.4; Potassium 3.1 mmol/L (3.5-5.1)
--- NOTE | 2018-11-27 14:30 | Hospitalist Progress Note ---
Date of Service November 27, 2018 Assessment & Plan (1) Closed fracture of right hip: S/p fall after drinking too much alcohol Right hip xray showed comminuted intertrochanteric fracture right hip with extension to the proximal femoral shaft. Status post Right Long Trach Nail placement on 11/[address] Clayton Continue pain management as per ortho Continue PT/OT Fall precaution Follow-up with Dr Clayton in office 10-14 days post-op (2) Atrial fibrillation with rapid ventricular response: Rate controlled with digoxin Continue digoxin 0.25mg Metoprolol am dose was held due to low BP Cardiology on board Continue coumadin 5mg, INR 1.1 today Echo showed Mild concentric LVH, EF 65 to 70%, no segmental LV wall motion abnormalities, left atrial enlargement suggest diastolic dysfunction, aortic sclerosis without stenosis borderline mitral prolapse and severe biatrial enlargement Continue monitor in tele (3) Hyponatremia: Sodium level is noted to be 128 on admission Sodium level slightly increased to 134 Continue monitor BMP (4) HTN (hypertension): Blood pressure in the low side Possible related to benzo Librium taper to once daily metoprolol morning dose was held If BP remains low and HR stable, will consider to decrease metoprolol to 25mg Continue monitor BP Orthostatic hypotension Citalopram decreased to 10mg daily Fall precaution (5) Alcohol use: Continue gabapentin and ativan alcohol withdrawn protocol Looks much better today Libruim taper to once daily and will d/c in am Will monitor closely for DT DVT prophylaxis On Coumadin with INR 1.1 CODE STATUS FULL CODE Disposition Will discharge to rehab once medically stable Subjective Pt was seen and examined Lying in bed with no distress Pt looks much better today Yesterday she was very confused with hallucination She is making sense today She was able to know current year today (but yesterday she said that it was 2024) Denies any hallucination, chest pain, palpitation, dizziness and SOB Physical Exam Physical Exam: General- No acute distress Head- atraumatic Eyes- PERRL, EOMI, No nystagmus ENT- oropharynx clear Neck- supple, no JVD Lungs- clear to auscultation Heart- irregular rhythm; no murmur Abdomen- normal bowel sounds, soft, nontender Extremities- no calf tenderness Neuro- alert, orientedx3, PERRL, EOMI; no facial palsy; no dysarthria, follow commands, finger to nose intact Skin- warm & dry Results & Data Vital Signs (Past 12 Hours) Vital Signs Temp Pulse Resp BP Pulse Ox 11/27/18 12:22 36.8 C 94 H 18 89/56 L 99 11/27/18 06:58 36.5 C 88 19 95/66 L 93 11/27/18 04:34 36.7 C 84 16 91/64 L 96 (1) Closed fracture of right hip Encounter type: initial encounter Qualified Code(s): S72.001A - Fracture of unspecified part of neck of right femur, initial encounter for closed fracture
[2018-11-27] MEDS: DIGOXIN 0.25 MG TAB PO SCH (15:47)
[2018-11-27] MEDS: WARFARIN SOD 5 MG TAB PO SCH (15:48)
[2018-11-27] MEDS: OXYCODONE HCL IR 5 MG TAB (IMMEDIATE RELEASE) PO PRN (16:26)
[2018-11-28] MEDS: POLYETHYLENE (MIRALAX) 17 GM PACK PO SCH ×3 (05:30→17:01)
[2018-11-28 06:09] LABS: INR 1.2 (0.9-1.1); Prothrombin Time 11.7 Seconds (9.0-12.0)
[2018-11-28] MEDS: MIDODRINE HCL 2.5 MG TAB PO SCH ×3 (07:49→16:23)
[2018-11-28] MEDS ORDERED: chlordiazePOXIDE HCl 5 MG CAP PO SCH (09:00)
[2018-11-28 09:02] LABS: BUN Creatinine Ratio 19.6 (10-20); Calcium 8.7 mg/dl (8.5-10.1); Creatinine Clr Calc Pharmacy 158.1 ml/min; Est GFR (African American) 136.3; Est GFR (Non-African American) 117.6; Potassium 3.6 mmol/L (3.5-5.1)
[2018-11-28] MEDS: MULTIVITAMIN TAB PO SCH (09:06)
[2018-11-28] MEDS: CITALOPRAM 20 MG TAB PO SCH (09:07)
[2018-11-28] MEDS: THIAMINE HCL 100 MG TAB PO SCH (09:07)
[2018-11-28] MEDS: FOLIC ACID 1 MG TAB PO SCH (09:08)
[2018-11-28] MEDS: METOPROLOL SUCC 50MG EXT REL TAB PO SCH ×2 (09:11→11:20)
--- NOTE | 2018-11-28 15:18 | Hospitalist Progress Note ---
Date of Service November 28, 2018 Assessment & Plan (1) Closed fracture of right hip: S/p fall after drinking too much alcohol Right hip xray showed comminuted intertrochanteric fracture right hip with extension to the proximal femoral shaft. Status post Right Long Trach Nail placement on 11/[address] Clayton Continue pain management as per ortho Continue PT/OT Fall precaution Follow-up with Dr Clayton in office 10-14 days post-op (2) Atrial fibrillation with rapid ventricular response: Rate controlled with digoxin and metoprolol Continue digoxin 0.25mg and metoprolol Cardiology on board Continue coumadin 5mg, INR 1.2 today Echo showed Mild concentric LVH, EF 65 to 70%, no segmental LV wall motion abnormalities, left atrial enlargement suggest diastolic dysfunction, aortic sclerosis without stenosis borderline mitral prolapse and severe biatrial enlargement Continue monitor in tele (3) Hyponatremia: Sodium level is noted to be 128 on admission Sodium level slightly increased to 132 today Continue monitor BMP outpatient (4) HTN (hypertension): Blood pressure in the low side Possible related to benzo Librium discontinued metoprolol given today If BP remains low and HR stable, will consider to decrease metoprolol to 25mg Continue monitor BP Orthostatic hypotension Citalopram decreased to 10mg daily Fall precaution (5) Alcohol use: was getting gabapentin and ativan for alcohol withdrawn protocol Discontinued librium Will monitor closely for DT Stable DVT prophylaxis On Coumadin with INR 1.1 CODE STATUS FULL CODE Disposition OK to discharge to rehab today Subjective Pt was seen and examined Lying in bed with no distress Pt said that pain a little improves She said that she only has pain with movement Her BP has been in the low side Denies any chest pain, palpitation, dizziness and SOB Physical Exam Physical Exam: General- No acute distress Head- atraumatic Eyes- PERRL, EOMI, No nystagmus ENT- oropharynx clear Neck- supple, no JVD Lungs- clear to auscultation Heart- irregular rhythm; no murmur Abdomen- normal bowel sounds, soft, nontender Extremities- no calf tenderness Neuro- alert, orientedx3, PERRL, EOMI; no facial palsy; no dysarthria, follow commands, finger to nose intact Skin- warm & dry Results & Data Vital Signs (Past 12 Hours) Vital Signs Temp Pulse Pulse Resp BP Pulse Ox 11/28/18 11:17 36.8 C 94 H 18 85/55 L 99 11/28/18 09:00 100 H 91/54 L 11/28/18 07:25 96 H 11/28/18 03:23 36.7 C 82 18 114/71 98 (1) Closed fracture of right hip Encounter type: initial encounter Qualified Code(s): S72.001A - Fracture of unspecified part of neck of right femur, initial encounter for closed fracture
[2018-11-28] MEDS: DIGOXIN 0.25 MG TAB PO SCH (16:23)
[2018-11-28] MEDS: WARFARIN SOD 5 MG TAB PO SCH (16:23)
--- NOTE | 2018-11-29 07:52 | Discharge Summary ---
Date of Service November 28, 2018 Admission HPI Per Admitting Provider History obtained from patient and records. Medical history significant for A. fib on Coumadin, hypertension, hyperlipidemia, COPD, pulmonary hypertension, breast cancer left status post surgery/chemoradiation, chronic hyponatremia, mood disorder, ongoing tobacco/alcohol abuse as per records, chronic thrombocytopenia. Recent confinement from October 09-October 31, 2016 for right humeral fracture status post surgery. Stay complicated by delirium tremens. Patient fell off a barstool at her home last night subsequently landing on the floor. Patient noted achy right hip pain. Patient not sure if she passed out. Patient denies chest pain or unusual shortness of breath. Denies headache. 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 Admission Exam Per Admitting Provider GENERAL: Slightly uncomfortable, pleasant, breathy voice, no respiratory distress SKIN: Normal color, warm HEENT: [place] palpebral conjunctivae, no ptosis, dry buccal mucosa NECK : Supple, no tenderness CHEST : Decreased breath sounds, no tenderness HEART : Tachycardic, systolic murmur ABDOMEN: Some distention, nontender EXTREMITIES : Right hip tenderness, no other conspicuous deformities noted NEUROLOGIC : Coherent, no facial asymmetry, no other gross focality Principal Diagnosis Closed fracture of right hip Atrial fibrillation with rapid ventricular response Hyponatremia HTN (hypertension) Alcohol abuse Orthostatic hypotension Discharge Exam General- No acute distress Head- atraumatic Eyes- PERRL, EOMI, No nystagmus ENT- oropharynx clear Neck- supple, no JVD Lungs- clear to auscultation Heart- irregular rhythm; no murmur Abdomen- normal bowel sounds, soft, nontender Extremities- no calf tenderness Neuro- alert, orientedx3, PERRL, EOMI; no facial palsy; no dysarthria, follow commands, finger to nose intact Skin- warm & dry Discharge Data Allergies Allergy/AdvReac Type Severity Reaction Status Date / Time Sulfa (Sulfonamide Allergy Mild RASHES Verified 11/23/18 02:56 Antibiotics) morphine Allergy Rash Verified 11/23/18 04:12 Consultations 11/23/18 06:28 ED Decision to Admit Stat 11/23/18 06:59 Consult Cardiology Routine Consult Case Management - Discharge Planning Routine Consult Case Management - Discharge Planning Routine Consult Orthopedic Surgery Routine 11/24/18 10:45 Consult Case Management - Discharge Planning Routine Procedures Performed Operation Date: 11/24/18 07:30 Actual Procedures p Right Long Troch Nail(Right) - Emerson Clayton MD Ordered Studies 11/23/18 02:14 CT head/brain wo con Urgent 11/24/18 08:30 FL femur RT 2V Routine FL fluoroscopy <1hr Routine FL femur RT 2V CLINICAL HISTORY: TROCH NAIL RT COMPARISON STUDY: Right hip 11/23/2018. FLUOROSCOPY TIME: 197 seconds. FINDINGS: 4 fluoroscopic spot images of the right femur demonstrates internal fixation of an intertrochanteric fracture with intramedullary julian and interlocking femoral neck pin. The hardware appears intact. The alignment is near-anatomic. IMPRESSION: Fluoroscopy provided for internal fixation of a right femoral intertrochanteric fracture. Electronically signed by: Jefferson Vasquez M.D. 11/24/2018 10:43 AM Dictated: 11/24/18 1042 Transcribed: 11/24/18 1042 XR chest 1V portable CLINICAL HISTORY: pre-op preoperative evaluation COMPARISON STUDY: 02/26/2017 FINDINGS: The bones soft tissues and hemidiaphragms are normal. The cardiomediastinal silhouette is normal. The lungs are clear. The pulmonary vasculature is normal. IMPRESSION: Negative chest. The above report was generated using voice recognition software. It may contain grammatical, syntax or spelling errors. Electronically signed by: Baltazar Chisholm M.D. 11/23/2018 6:15 AM Dictated: 11/23/18 0615 Transcribed: 11/23/1815 XR hip RT min 2V CLINICAL HISTORY: fall/deformity trauma. Pain. COMPARISON: 02/26/2017 DISCUSSION: Intertrochanteric fracture right hip with mild extension to the proximal femoral shaft. Avulsion of the lesser trochanter. Mild superior migration right femoral shaft. No evidence for dislocation. No evidence for acetabular protrusion. There is no evidence for soft tissue swelling. IMPRESSION: Comminuted intertrochanteric fracture right hip with extension to t he proximal femoral shaft. The above report was generated using voice recognition software. It may contain grammatical, syntax or spelling errors. Electronically signed by: Baltazar Chisholm M.D. 11/23/2018 6:14 AM Dictated: 11/23/18613 Transcribed: 11/23/18613 CT head/brain wo con CT DOSE: 537.48 mGy.cm HISTORY: Trauma. Mental status change. eval for trauma TECHNIQUE: Multiaxial CT images of the head were performed without the use of intravenous contrast. A dose lowering technique was utilized adhering to the principles of ALARA. Comparison: 02/26/2017 Findings: The paranasal sinuses and mastoid air cells are clear. The calvarium and skull base are intact. The ventricles and sulci are within normal limits. There is no mass, hematoma, midline shift, or acute infarct. Impression: No acute intracranial abnormality. Age-related chronic small vessel change. The above report was generated using voice recognition software. It may contain grammatical, syntax or spelling errors. Electronically signed by: Baltazar Chisholm M.D. 11/23/2018 6:29 AM Dictated: 11/23/18627 Transcribed: 11/23/18627 Hospital Course (1) Closed fracture of right hip: S/p fall after drinking too much alcohol Right hip xray showed comminuted intertrochanteric fracture right hip with extension to the proximal femoral shaft. Status post Right Long Trach Nail placement on 11/[address] Clayton Continue pain management as per ortho Continue PT/OT Fall precaution Follow-up with Dr Clayton in office 10-14 days post-op (2) Atrial fibrillation with rapid ventricular response: Rate controlled with digoxin and metoprolol Continue digoxin 0.25mg and metoprolol Cardiology on board Continue coumadin 5mg, INR 1.2 today Echo showed Mild concentric LVH, EF 65 to 70%, no segmental LV wall motion abnormalities, left atrial enlargement suggest diastolic dysfunction, aortic sclerosis without stenosis borderline mitral prolapse and severe biatrial enlargement Continue monitor in tele (3) Hyponatremia: Sodium level is noted to be 128 on admission Sodium level slightly increased to 132 today Continue monitor BMP outpatient (4) HTN (hypertension): Blood pressure in the low side Possible related to benzo Librium discontinued metoprolol given today If BP remains low and HR stable, will consider to decrease metoprolol to 25mg Continue monitor BP Orthostatic hypotension Citalopram decreased to 10mg daily Fall precaution (5) Alcohol use: was getting gabapentin and ativan for alcohol withdrawn protocol Discontinued librium Will monitor closely for DT Stable DVT prophylaxis On Coumadin with INR 1.1 CODE STATUS FULL CODE Disposition OK to discharge to rehab today Total Time Total Time Spent Total Time Spent (In Minutes): 35 minutes Total Time Includes: Examination of the Patient, Discharge Planning, Medication Reconciliation, Communication With Other Providers and Other Discharge Plan Discharge Items Patient Disposition: Transfer Inpatient Rehab Fac Reason For Visit: RAPID AF Discharge Diagnosis: Closed fracture of right hip Atrial fibrillation with rapid ventricular response Hyponatremia HTN (hypertension) Alcohol abuse Orthostatic hypotension Discharge Goals: Decrease discomfort, Improve disease control, Improve function and Increase independence Activity: As commented below Weightbearing: Right partial Weightbearing Comment: Partial Weight Bearing Right Lower Extremity with Walker Non-emergency contact: Primary Care Provider, Surgeon and Global Recruiter Call non-emergency contact if: you have any medication questions, your symptoms worsen, your pain is not controlled, your temperature is above 101, your wound has increased redness and your wound has increased drainage Follow-up/Referrals: Mina Ordonez MD [Primary Care Provider] - Diet: Heart Healthy Addtl Provider Instructions: Follow up with your primary care provider once discharge from rehab Follow up with orthopedic Dr Clayton in office 10-14 days post-op Follow up with your cardiology for routine follow up Follow up with the coumadin clinic (Continue monitor PT/INR) Check PT/INR on Monday Continue physical and occupational therapy fall precaution Counseling on alcohol abuse Monitor your blood pressure while on midodrine Hold any narcotic and lorazepam if you become drowsy or lethargy Do no operate any machine while on narcotic UOC DISCHARGE INSTRUCTIONS: HIP FRACTURE SELF CARE INSTRUCTIONS: A. You are to ambulate with a walker or crutches for approximately 6 weeks. B. You are PARTIAL WEIGHT BEARING on your operative lower extremity for at least 6 weeks. C. Wear low heeled shoes with non-slip soles D. Be sure that your floors are free of things that could trip you throw rugs, electrical cords, and small objects. Avoid wet and waxed floors, especially with crutches/walker/cane. E. Try to walk several times a day with rest periods between. F. You may shower 48 hours after surgery and get the incision area wet, but DO NOT soak or submerge incision area in water. (No baths, swimming pools, hot tubs) G. You may have a large, band-aid like dressing over your incision (Aquacel). This will remain on your incision for 7 days, and then can be removed. If you have a regular type dressing of gauze and tape, this will need to be changed daily. H. Do NOT apply soap or any ointment/lotions directly over incision. I. You may use ice as needed to operative site. SPECIAL CARE INSTRUCTIONS: VERY IMPORTANT TO READ AND REVIEW A. You may be at risk for phlebitis or blood clots. a. Wear surgical stockings (WILLIAM hose) for 2 weeks after surgery to improve circulation and reduce swelling. b. You will continue your Coumadin daily as before. c. If you are on Coumadin- you will have daily/weekly blood work to monitor your levels. This will be done by either your family physician /business team leader (if you are on Coumadin chronically) versus your orthopedic surgeon. Expect a phone call the day of or the day after your blood work is drawn to adjust your dose accordingly. B. There are a few signs you need to watch for after you are home. Call [facility] at [phone] if you experience any of the following: a. If you have a temperature of 101 degrees or higher. b. Sudden increase in pain in your hip not relieved by rest or pain medication. c. Any fluid or drainage from the incision; redness of the incision. d. Shortness of breath or chest pain. C. Call your physician if: a. Temperature is greater than 101 degrees (F). b. Pain is not relieved by prescribed pain medications. c. Increase drainage or redness from incision. d. Unanswered questions or concerns. D. Pain Medication: a. You will be prescribed pain medication upon discharge that should last till your first post-operative appointment. b. If you experience nausea and/or skin rash, discontinue this medication and contact our office for an alternative medication. c. Caution- narcotic pain medication can cause constipation. FOLLOW UP VISIT: Please call [facility] at [phone] to schedule a follow up appointment 10-14 days from the date of your surgery date. Prescriptions: New thiamine HCl (vitamin B1) [Vitamin B-1] 100 mg Tablet 100 mg PO QAM 30 Days Qty: 30 RF: 0 folic acid 1 mg Tablet 1 mg PO QAM 30 Days Qty: 30 RF: 0 midodrine 2.5 mg Tablet 2.5 mg PO TID@0800,1200,1700 30 Days Qty: 90 RF: 0 acetaminophen [Mapap (acetaminophen)] 325 mg Tablet 650 mg PO Q8H PRN (Reason: pain ) Qty: 30 RF: 0 tramadol 50 mg tablet 50 mg PO Q8H PRN (Reason: pain) Qty: 10 RF: 0 Continued Anoro Ellipta 62.5-25 mcg/actuation blister with device 1 ea inhalation DAILY RF: 0 metoprolol succinate 50 mg Tablet Extended Release 24 Hr 50 mg PO BID RF: 0 warfarin 5 mg Tablet 5 mg PO UD RF: 0 digoxin 125 mcg Tablet 0.125 mg PO QAM RF: 0 lorazepam 1 mg Tablet 1 mg PO BID PRN (Reason: Anxiety) RF: 0 Discontinued citalopram 20 mg Tablet 20 mg PO QAM RF: 0 Stand-Alone Forms: [facility] Discharge Orders: Discharge Order (Routine); Ordered 11/28/18 Ordered By: Renata Vasques Skilled Items Patient informed of condition?: Yes DNR: No Discharge Level of Care: Acute rehab Communicable Disease: No Discharge Prognosis: Stable Admission Data Admit Date/Time: 11/23/18 05:30 Attending Provider: Renata Vasques Admit Provider: Silver Duong Primary Care Provider: Mina Ordonez Other Providers: Renata Vasques ; Silver Duong ; Mitchel Drake ; Emerson Clayton ; Adam Hobbs Service: Telemetry Other DC Date/Time DO NOT enter until pt leaves facility: 11/28/18 18:10
[2018-11-29] MEDS ORDERED: UMECLIDINIUM BRM/VILANTEROL INH SCH (09:00)
== END 2018-11-28 18:10 | DRG 481 ==
LOC: ED 01:56 → 2S 05:30 → SUATTDRO 05:30 → 2S 06:07

== ENCOUNTER 2020-01-02 18:40 | Inpatient (IN) ==
--- NOTE | 2020-01-02 18:43 | Emergency Department Note ---
Impression & Plan Alcohol withdrawal seizure, Supratherapeutic INR, Hypokalemia, Hypocalcemia, Hypomagnesemia, Dehydration ED Provider Note NAME: ELEN CROWDER AGE: 64 SEX: F : 1955 ARRIVES VIA: Ambulance INFORMANT: Patient, ED PROVIDER(S): Juan Richmond MD Chief Complaint: Seizure HPI: Patient does present from home. The patient does have a known history of seizures but does not take any antiepileptic medications. The patient believes that her last seizure was yesterday. BSG was 191 with a temperature of 98 7. Patient reportedly had a seizure that began around [id number] and subsequently postictal phase. When EMS arrived the patient was awake alert and oriented. The patient does take Lovenox and digoxin for history of A. fib. Patient has had a recurrence of falls. The patient does admit to drinking 416 ounce light beers every night. The patient denies any change in the amount of alcohol that she drinks. The patient denies fevers or chills, chest pains, shortness of breath. Patient was noted to have some bleeding from the left ear but the patient denies any pain in the head or neck. The patient denies back arm chest or lower extremity pain. No medications were administered for the seizure prior to arrival. The patient reportedly did not have any incontinence and denies any tongue biting. ROS: See HPI for pertinent positives and negatives. A total of 10 systems were reviewed and otherwise negative. Past medical history: See below Surgical history: See below Social history: See below Physical Exam: GENERAL: Mildly tremulous. EYE EXAM: Normal conjunctiva. PERRL, no anisocoria and EOM's grossly intact w/o pain. Ears: Blood coming from the left IAC, tympanic membrane not visualized. No obvious deformity or pain. Head: NCAT with exception of scant blood coming from left ear. No pain to temporal bone, mastoid, or jaw area. NECK: Supple, no nuchal rigidity, no adenopathy, non-tender. No signs of meningismus. C-spine TTP or step-offs. LUNGS: Clear to auscultation. Normal chest wall mechanics. HEART: Tachycardic and regular, no MRG. ABDOMEN: Abdomen soft, non-tender, normo-active bowel sounds, no masses, no rebound or guarding. BACK: No CVA TTP. SKIN: Bruising over the right lateral proximal upper extremity. UPPER EXTREMITIES: Upper extremities are grossly normal. LOWER EXTREMITIES: Grossly normal, no edema. NEURO EXAM: A&O x3, cranial nerves II-XII grossly intact, normal speech, moves all 4 extremities on command w/o issue. [id number] is reasonable but with a ssociated tremors. No drift. Denies sensory deficits. Differential diagnoses: Epilepsy, infection, hypoglycemia, electrolyte abnormalities, cardiac sources, intracerebral event, trauma, toxicologic, neurologic, syncope, as well as other pathologies. Course: Patient was seen and evaluated the bedside. Full history physical exam was performed. EKG: Indication: Tachycardia A. fib, rate 88, normal QRS and QT, normal axis, ST depressions in the lateral leads. Slight depression in V6 from prior EKG dated November 23, 2018. Depressions are somewhat worse compared to prior. Imaging Studies: Radiology results as stated below per my review in the radiologist's interpretation: HEAD CT NONCONTRAST CT DOSE: HISTORY: blood from L auditory canal, fall on lovenox TECHNIQUE: Multiaxial CT images of the head were performed without the use of intravenous contrast. Automated exposure control was utilized for this study. A dose lowering technique was utilized adhering to the principles of ALARA. Comparison: Head CT 11/23/2018. Findings: The paranasal sinuses and mastoid air cells are clear. The calvarium and skull base are intact. There is no mass, hematoma, midline shift, acute infarct. White matter hypodensity is nonspecific but suggestive of microvascular ischemic change. The ventricles and sulci demonstrate mild age-related involutional changes. Old lacunar infarcts seen within the left basal ganglia, unchanged. Stable 2 cm slightly expansile groundglass lesion within the left parietal bone. 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 Impression: No significant change compared to the prior study. No acute intracranial abnormality. ACT 112: Negative or not required by law. Electronically signed by: Jefferson Vasquez M.D. 01/02/2020 7:44 PM Dictated: 01/02/201938 Transcribed: 01/02/201938 CERVICAL SP[address] CT DOSE: 897.59 mGy.cm HISTORY: Neck pain. s/p ?fall, seizure TECHNIQUE: Multiaxial CT images of the cervical spine were performed and reformatted in the sagittal and coronal plane without the use of contrast. A dose lowering technique was utilized adhering to the principles of ALARA. COMPARISON: None. FINDINGS: No fractures. No subluxation. Prevertebral soft tissues and the C1-C2 interval are intact. No pneumothorax. IMPRESSION: No fractures within the cervical spine. ACT 112: Negative or not required by law. Electronically signed by: Jefferson Vasquez M.D. 01/02/2020 7:51 PM Dictated: 01/02/201946 Transcribed: 01/02/201946 Cardiac monitoring: An order was placed for continuous cardiac monitoring. The monitor shows a rate of 105 with irregularly irregular rhythm. MDM: Patient was seen due to concern for seizure. Blood work was obtained along with an alcohol level. Patient did have a CT of the head and cervical spine completed. Patient also did have Ativan administered given the concern for possible breakthrough seizure for alcohol withdrawal. The patient has a normal white count H&H and platelet count. The patient INR is supratherapeutic. The patient does have multiple metabolic abnormalities including hyponatremia hypokalemia hypocalcemia, hypomagnesemia. The patient does have elevations in LFTs likely consistent with the patient's alcohol abuse. Digoxin level is low current alcohol is negative. CTs of the head and neck are negative. The patient does not complain of any head or neck pain. Patient was ordered for repletion of fluids. The patient does have a slight bump in her troponin. Patient does not complain of any chest pains or shortness of breath and believe that this may be more related to demand ischemia. The patient did have some slight changes with some worsening depressions in the lateral leads but the patient does not complain of any chest pains or shortness of breath. Will defer heparin, aspirin or different anticoagulant medication other than her current regimen at this time. I did speak with the on-call hospitalist. Patient was subsequently admitted by Dr. Wilburn. Critical Care: I have personally spent 75 minutes of critical care time in direct management of this patient. This includes bedside care, interpretation of diagnostic studies, and testing, discussion with consultants, patient, and family members, and other require inpatient management activities. This 75 minutes is in excess of all separately billable procedures. Past Med/Surg History Medical History Afib Anemia Atrial fibrillation Cancer LEFT BREAST (CHEMO AND RADIATION) Chronic obstructive pulmonary disease Hypertension Hyponatremia chronically low. Left ventricular enlargement BEING MONITORED BY ASHLY DUMONT Liver enzyme elevation Migraine Tobacco use disorder Surgical History History of section X1 History of colonoscopy History of left cataract extraction History of partial mastectomy LEFT History of tooth extraction Hx of shoulder surgery RT SHOULDER (S/P FX) Family History Other Cancer Heart disease Social History Smoking Status: Current every day smoker Tobacco Type: Cigarettes Cigarettes Per Day: HX OF 1 PPD; Second Hand Exposure: No; Hx Alcohol Use: Yes Alcohol type: beer Hx Substance Use: No Preferred Language: Kittitian Communication Ability: Effective Property Technician Required: No Beliefs That Will Affect Care: None marital status: Current Living Situation: Spouse Feels Safe at Home: Yes Allergies Allergies Allergy/AdvReac Type Severity Reaction Status Date / Time Sulfa (Sulfonamide Allergy Mild RASHES Verified 01/02/20 21:21 Antibiotics) morphine Allergy Rash Verified 01/02/20 21:21 trimethoprim Allergy Rash Verified 01/02/20 21:22 Home Meds Home Medications Medication Instructions Recorded Confirmed metoprolol succinate 50 mg PO BID 03/15/18 01/02/20 warfarin 2.5 mg PO MOWEFR@1600 03/15/18 01/02/20 Anoro Ellipta 1 ea INHALATION DAILY 11/23/18 01/02/20 albuterol sulfate 2 puff INHALATION Q4 PRN 01/02/20 01/02/20 citalopram [Celexa] 20 mg PO DAILY 01/02/20 01/02/20 digoxin [Digox] 250 mcg PO DAILY 01/02/20 01/02/20 folic acid 0.4 mg PO DAILY 01/02/20 01/02/20 thiamine HCl (vitamin B1) [Vitamin 100 mg PO DAILY 01/02/20 01/02/20 B-1] tiotropium bromide [Spiriva with 1 cap INHALATION DAILY 01/02/20 01/02/20 HandiHaler] warfarin [Coumadin] 5 mg PO SUTUTHSA@1600 01/02/20 01/02/20 Previous Rx's Medication Instructions Recorded acetaminophen [Mapap 650 mg PO Q8H PRN #30 tab 11/28/18 (acetaminophen)] Results & Data (ED) Vital Signs Vital Signs - 24 hr 01/02/20 18:50 01/02/20 19:00 01/02/20 19:06 Temperature 37.0 C Temperature Source Oral Pulse Rate 87 85 94 H Pulse Rate [Right] Pulse Rate from SpO2 Sensor 91 H 96 H Pulse Rhythm Irregular Pulse Rhythm [Right] Pulse Strength [Right] Respiratory Rate 28 H 26 H 26 H Respiratory Effort / Characteristics Non-Labored Respiratory Depth Normal Respiratory Pattern Regular Blood Pressure 172/98 H 172/98 H Blood Pressure [Right Arm] Blood Pressure Mean 110 122 Blood Pressure Mean [Right Arm] Blood Pressure Position Lying Blood Pressure Position [Right Arm] Pulse Oximetry 97 98 99 Oxygen Delivery Method Room Air Sepsis Recent Fever Within 48 Hours No Sepsis New/Unexplained Change in Mental Status N/A Sepsis Action Taken by Nursing No Action Required 01/02/20 19:29 01/02/20 19:30 01/02/20 19:31 Temperature Temperature Source Pulse Rate 86 87 86 Pulse Rate [Right] Pulse Rate from SpO2 Sensor 90 86 87 Pulse Rhythm Pulse Rhythm [Right] Pulse Strength [Right] Respiratory Rate 25 H Respiratory Effort / Characteristics Respiratory Depth Respiratory Pattern Blood Pressure 135/83 148/83 H Blood Pressure [Right Arm] Blood Pressure Mean 95 103 Blood Pressure Mean [Right Arm] Blood Pressure Position Blood Pressure Position [Right Arm] Pulse Oximetry 96 96 96 Oxygen Delivery Method Sepsis Recent Fever Within 48 Hours Sepsis New/Unexplained Change in Mental Status Sepsis Action Taken by Nursing 01/02/20 20:00 01/02/20 20:01 01/02/20 20:30 Temperature Temperature Source Pulse Rate 90 87 92 H Pulse Rate [Right] Pulse Rate from SpO2 Sensor 97 H 91 H 92 H Pulse Rhythm Pulse Rhythm [Right] Pulse Strength [Right] Respiratory Rate 24 28 H 29 H Respiratory Effort / Characteristics Respiratory Depth Respiratory Pattern Blood Pressure 158/107 H 140/83 Blood Pressure [Right Arm] Blood Pressure Mean 132 110 Blood Pressure Mean [Right Arm] Blood Pressure Position Blood Pressure Position [Right Arm] Pulse Oximetry 98 99 98 Oxygen Delivery Method Sepsis Recent Fever Within 48 Hours Sepsis New/Unexplained Change in Mental Status Sepsis Action Taken by Nursing 01/02/20 20:31 01/02/20 20:43 01/02/20 21:00 Temperature Temperature Source Pulse Rate 105 H 85 103 H Pulse Rate [Right] Pulse Rate from SpO2 Sensor 99 H 91 H 100 H Pulse Rhythm Pulse Rhythm [Right] Pulse Strength [Right] Respiratory Rate 26 H Respiratory Effort / Characteristics Respiratory Depth Respiratory Pattern Blood Pressure 136/78 137/77 Blood Pressure [Right Arm] Blood Pressure Mean 105 93 Blood Pressure Mean [Right Arm] Blood Pressure Position Blood Pressure Position [Right Arm] Pulse Oximetry 97 98 97 Oxygen Delivery Method Sepsis Recent Fever Within 48 Hours Sepsis New/Unexplained Change in Mental Status Sepsis Action Taken by Nursing 01/02/20 21:01 01/02/20 21:30 01/02/20 21:31 Temperature Temperature Source Pulse Rate 102 H 98 H 96 H Pulse Rate [Right] Pulse Rate from SpO2 Sensor 102 H 99 H 92 H Pulse Rhythm Pulse Rhythm [Right] Pulse Strength [Right] Respiratory Rate 33 H Respiratory Effort / Characteristics Respiratory Depth Respiratory Pattern Blood Pressure 153/77 H Blood Pressure [Right Arm] Blood Pressure Mean 121 Blood Pressure Mean [Right Arm] Blood Pressure Position Blood Pressure Position [Right Arm] Pulse Oximetry 98 97 99 Oxygen Delivery Method Sepsis Recent Fever Within 48 Hours Sepsis New/Unexplained Change in Mental Status Sepsis Action Taken by Nursing 01/02/20 22:33 Temperature Temperature Source Pulse Rate Pulse Rate [Right] 83 Pulse Rate from SpO2 Sensor Pulse Rhythm Pulse Rhythm [Right] Regular Pulse Strength [Right] Normal Respiratory Rate 16 Respiratory Effort / Characteristics Non-Labored Spontaneous Respiratory Depth Normal Respiratory Pattern Blood Pressure Blood Pressure [Right Arm] 131/87 Blood Pressure Mean Blood Pressure Mean [Right Arm] 101 Blood Pressure Position Blood Pressure Position [Right Arm] Lying Pulse Oximetry 97 Oxygen Delivery Method Room Air Sepsis Recent Fever Within 48 Hours Sepsis New/Unexplained Change in Mental Status Sepsis Action Taken by Residential Medications Current Medication List: was personally reviewed by me Laboratory Data Attestation: I reviewed the patient's lab results. Result diagrams: 01/02/20 19:31 01/02/20 19:31 Lab Results 01/02/20 01/02/20 01/02/20 Range/Units 19:31 19:31 19:31 WBC 7.31 (4.8-10.8) K/uL RBC 4.31 (4.2-5.4) M/uL Hgb 14.6 (12.0-16.0) g/dL Hct 40.6 (37-47) % MCV 94.2 (80-100) fL MCH 33.9 (25-34) pg MCHC 36.0 (32-36) g/dL RDW Std Deviation 45.3 (36.4-46.3) fL RDW Coeff of Saw 13.1 (11.5-14.5) % Plt Count 145 (130-400) K/uL MPV 10.3 (7.4-10.4) fL Immature Gran % (Auto) 0.1 % Neut % (Auto) 84.0 % Lymph % (Auto) 7.1 % [place] % (Auto) 8.5 % Eos % (Auto) 0.0 % Baso % (Auto) 0.3 % Neut # (Auto) 6.14 (1.4-6.5) K/uL Lymph # (Auto) 0.52 L (1.2-3.4) K/uL [place] # (Auto) 0.62 H (0.11-0.59) K/uL Eos # (Auto) 0.00 (0-0.5) K/uL Baso # (Auto) 0.02 (0-0.2) K/uL Immature Gran # (Auto) 0.01 (0.00-0.02) K/uL PT (9.0-12.0) Seconds INR (0.9-1.1) APTT (21.0-31.0) Seconds PTT Ratio Sodium 128 L (136-145) mmol/L Potassium 3.0 L (3.5-5.1) mmol/L Chloride 93 L (98-107) mmol/L Carbon Dioxide 24 (21-32) mmol/L Anion Gap 11.0 (3-11) BUN 5 L (7-18) mg/dl Creatinine 0.54 L (0.6-1.2) mg/dl Est Cr Clr Drug Dosing 93.3 ml/min Est GFR ( Amer) 114.0 Est GFR (Non-Af Amer) 98.3 BUN/Creatinine Ratio 8.4 L (10-20) Glucose 138 H (70-99) mg/dl Calcium 7.9 L (8.5-10.1) mg/dl Phosphorus 2.6 (2.5-4.9) mg/dl Magnesium 1.1 L (1.8-2.4) mg/dl Total Bilirubin 1.6 H (0.2-1) mg/dl AST 101 H (15-37) U/L ALT 80 H (12-78) U/L Alkaline Phosphatase 128 H (45-117) U/L Troponin I 0.046 H* (0-0.045) ng/ml Total Protein 7.0 (6.4-8.2) gm/dl Albumin 3.2 L (3.4-5.0) gm/dl Globulin 3.8 (2.5-4.0) gm/dl Albumin/Globulin Ratio 0.8 L (0.9-2) Folate (>5.38) ng/ml Digoxin (0.8-2.0) ng/ml Ethyl Alcohol mg/dL < 3.0 (0-3) mg/dl 01/02/20 01/02/20 01/02/20 Range/Units 19:31 19:31 19:31 WBC (4.8-10.8) K/uL RBC (4.2-5.4) M/uL Hgb (12.0-16.0) g/dL Hct (37-47) % MCV (80-100) fL MCH (25-34) pg MCHC (32-36) g/dL RDW Std Deviation (36.4-46.3) fL RDW Coeff of Saw (11.5-14.5) % Plt Count (130-400) K/uL MPV (7.4-10.4) fL Immature Gran % (Auto) % Neut % (Auto) % Lymph % (Auto) % [place] % (Auto) % Eos % (Auto) % Baso % (Auto) % Neut # (Auto) (1.4-6.5) K/uL Lymph # (Auto) (1.2-3.4) K/uL [place] # (Auto) (0.11-0.59) K/uL Eos # (Auto) (0-0.5) K/uL Baso # (Auto) (0-0.2) K/uL Immature Gran # (Auto) (0.00-0.02) K/uL PT 48.7 H (9.0-12.0) Seconds INR 5.0 H (0.9-1.1) APTT 45.7 H* (21.0-31.0) Seconds PTT Ratio 1.6 Sodium (136-145) mmol/L Potassium (3.5-5.1) mmol/L Chloride (98-107) mmol/L Carbon Dioxide (21-32) mmol/L Anion Gap (3-11) BUN (7-18) mg/dl Creatinine (0.6-1.2) mg/dl Est Cr Clr Drug Dosing ml/min Est GFR ( Amer) Est GFR (Non-Af Amer) BUN/Creatinine Ratio (10-20) Glucose (70-99) mg/dl Calcium (8.5-10.1) mg/dl Phosphorus (2.5-4.9) mg/dl Magnesium (1.8-2.4) mg/dl Total Bilirubin (0.2-1) mg/dl AST (15-37) U/L ALT (12-78) U/L Alkaline Phosphatase (45-117) U/L Troponin I (0-0.045) ng/ml Total Protein (6.4-8.2) gm/dl Albumin (3.4-5.0) gm/dl Globulin (2.5-4.0) gm/dl Albumin/Globulin Ratio (0.9-2) Folate 14.06 (>5.38) ng/ml Digoxin 0.3 L (0.8-2.0) ng/ml Ethyl Alcohol mg/dL (0-3) mg/dl Administered Medications Discontinued Medications Sodium Chloride (Nss 1000ml) 1,000 mls @ 999 mls/hr IV .Q1H1M SARA Stop: 01/02/20 20:00 Last Infusion: 01/02/20 20:27 Dose: 0 mls/hr Documented by: [id number] Admin: 01/02/20 19:22 Dose: 999 mls/hr Documented by: [id number] Lorazepam (Ativan) 1 mg in 2 mls @ 2 mls/min IV NOW STA Stop: 01/02/20 18:55 Last Admin: 01/02/20 19:14 Dose: 2 mls/min Documented by: [id number] Multivitamins 10 ml/ Thiamine HCl 100 mg/ Folic Acid 1 mg/Sodium Chloride 1,011.2 mls @ 500 mls/hr IV .Q2H2M ONE Stop: 01/02/20 20:55 Last Infusion: 01/02/20 21:55 Dose: 0 mls/hr Documented by: [id number] Admin: 01/02/20 19:41 Dose: 500 mls/hr Documented by: [id number] Potassium Chloride (K Frank / Wtr) 10 meq in 100 mls @ 100 mls/hr IV Q1H SARA Stop: 01/02/20 22:44 Last Admin: 01/02/20 22:30 Dose: 100 mls/hr Documented by: [id number] Infusion: 01/02/20 22:19 Dose: 0 mls/hr Documented by: [id number] Admin: 01/02/20 21:20 Dose: 100 mls/hr Documented by: [id number] Magnesium Sulfate/Dextrose (Magnesium Sulfate / D5w) 1 gm in 100 mls @ 50 mls/hr IV Q2H STA Stop: 01/02/20 22:30 Last Admin: 01/02/20 22:30 Dose: 50 mls/hr Documented by: [id number] Infusion: 01/02/20 22:30 Dose: 50 mls/hr Documented by: [id number] Admin: 01/02/20 21:19 Dose: 50 mls/hr Documented by: [id number] Calcium Gluconate 1,000 mg/ (Sodium Chloride) 60 mls @ 240 mls/hr IV NOW STA Stop: 01/02/20 20:45 Last Infusion: 01/02/20 21:35 Dose: 0 mls/hr Documented by: [id number] Admin: 01/02/20 21:19 Dose: 240 mls/hr Documented by: [id number] Thiamine HCl 100 mg/ Syringe 10 mls @ 2 mls/min IV NOW STA Stop: 01/02/20 22:03 Last Admin: 01/02/20 22:30 Dose: 2 mls/min Documented by: [id number] Lorazepam (Ativan) 1 mg in 2 mls @ 2 mls/min IV NOW STA Stop: 01/02/20 22:13 Last Admin: 01/02/20 22:41 Dose: 2 mls/min Documented by: [id number] Discharge Plan Visit Data Chief Complaint: Seizure Stated Complaint: SEIZURE ED Provider: Juan Richmond Discharge Problem: Alcohol withdrawal seizure, Supratherapeutic INR, Hypokalemia, Hypocalcemia, Hypomagnesemia, Dehydration Forms Stand Alone Forms: My [facility] Prescriptions Prescriptions: No Action Anoro Ellipta 62.5-25 mcg/actuation blister with device 1 ea inhalation DAILY RF: 0 acetaminophen [Mapap (acetaminophen)] 325 mg Tablet 650 mg PO Q8H PRN (Reason: pain ) Qty: 30 RF: 0 thiamine HCl (vitamin B1) [Vitamin B-1] 100 mg Tablet 100 mg PO DAILY RF: 0 digoxin [Digox] 250 mcg (0.25 mg) tablet 250 mcg PO DAILY RF: 0 folic acid 400 mcg Tablet 0.4 mg PO DAILY RF: 0 citalopram [Celexa] 20 mg tablet 20 mg PO DAILY RF: 0 albuterol sulfate 90 mcg/actuation Hfa Aerosol Inhaler 2 puff INHALATION Q4 PRN (Reason: Shortness Of Breath Or Wheezing) RF: 0 Spiriva with HandiHaler 18 mcg capsule, w/inhalation device 1 cap INHALATION DAILY RF: 0 warfarin [Coumadin] 5 mg Tablet 5 mg PO SUTUTHSA@1600 RF: 0 metoprolol succinate 50 mg Tablet Extended Release 24 Hr 50 mg PO BID RF: 0 warfarin 5 mg Tablet 2.5 mg PO MOWEFR@1600 RF: 0 Discharge Problem: Alcohol withdrawal seizure Qualifiers: Complication of substance-induced condition: uncomplicated Qualified Code(s): F10.230 - Alcohol dependence with withdrawal, uncomplicated
[2020-01-02] MEDS ORDERED: LORazepam 2 MG/4 ML VIAL IV PRN (18:54)
[2020-01-02] MEDS ORDERED: LORazepam 3 MG/6 ML VIAL IV PRN (18:54)
[2020-01-02] MEDS ORDERED: ATIVAN IV ALCOHOL WITHDRAWL IV PRN (18:54)
[2020-01-02] MEDS ORDERED: MULTI-VITAMIN INFUSION 10 ML, THIAMINE HCL 100 MG, FOLIC ACID 1 MG in SODIUM CHLORIDE 0... IV ONE (18:54)
[2020-01-02] MEDS ORDERED: LORazepam 1 MG/2 ML VIAL IV STA ×2 (18:54→22:12)
[2020-01-02] MEDS ORDERED: LORazepam 1 MG/2 ML VIAL IV PRN (18:54)
[2020-01-02] MEDS ORDERED: SODIUM CHLORIDE 0.9% 1000ML 1,000 ML IV SCH (19:00)
--- NOTE | 2020-01-02 19:46 | CT Scan Report ---
HEAD CT NONCONTRAST CT DOSE: HISTORY: blood from L auditory canal, fall on lovenox TECHNIQUE: Multiaxial CT images of the head were performed without the use of intravenous contrast. A utomated exposure control was utilized for this study. A dose lowering technique was utilized adheri ng to the principles of ALARA. Comparison: Head CT 11/23/2018. Findings: The paranasal sinuses and mastoid air cells are clear. The calvarium and skull base are int act. There is no mass, hematoma, midline shift, acute infarct. White matter hypodensity is nonspecifi c but suggestive of microvascular ischemic change. The ventricles and sulci demonstrate mild age-rela lina involutional changes. Old lacunar infarcts seen within the left basal ganglia, unchanged. Stable 2 cm slightly expansile groundglass lesion within the left parietal bone. This likely represents a be nign bony lesion such as fibrous dysplasia. Impression: No significant change compared to the prior study. No acute intracranial abnormality. ACT 112: Negative or not required by law. Electronically signed by: Jefferson Vasquez M.D. 01/02/2020 7:44 PM
[2020-01-02 19:48] LABS: Basophils # (auto) 0.02 K/uL (0-0.2); Basophils % (auto) 0.3 %; Hematocrit (blood only) 40.6 % (37-47); Hemoglobin 14.6 g/dL (12.0-16.0); Immature Granulocytes # (auto) 0.01 K/uL (0.00-0.02); Immature Granulocytes % (auto) 0.1 %; Lymphocytes # (auto) 0.52 K/uL (1.2-3.4); Lymphocytes % (auto) 7.1 %; Mean Corpuscular Hemoglobin 33.9 pg (25-34); Mean Corpuscular Volume 94.2 fL (80-100); Mean Platelet Volume 10.3 fL (7.4-10.4); Monocytes # (auto) 0.62 K/uL (0.11-0.59); Monocytes % (auto) 8.5 %; Neutrophils # (auto) 6.14 K/uL (1.4-6.5); Platelet Count 145 K/uL (130-400); RDW Coefficient of Variation 13.1 % (11.5-14.5); RDW Standard Deviation 45.3 fL (36.4-46.3); Red Blood Count 4.31 M/uL (4.2-5.4); White Blood Count 7.31 K/uL (4.8-10.8)
--- NOTE | 2020-01-02 19:52 | CT Scan Report ---
CERVICAL SPINE CT CT DOSE: 897.59 mGy.cm HISTORY: Neck pain. s/p ?fall, seizure TECHNIQUE: Multiaxial CT images of the cervical spine were performed and reformatted in the sagittal and coronal plane without the use of contrast. A dose lowering technique was utilized adhering to th e principles of ALARA. COMPARISON: None. FINDINGS: No fractures. No subluxation. Prevertebral soft tissues and the C1-C2 interval are intact. No pneumothorax. IMPRESSION: No fractures within the cervical spine. ACT 112: Negative or not required by law. Electronically signed by: Jefferson Vasquez M.D. 01/02/2020 7:51 PM
[2020-01-02 20:10] LABS: Partial Thromboplastin Ratio 1.6; Prothrombin Time 48.7 Seconds (9.0-12.0)
[2020-01-02 20:14] LABS: Albumin Level 3.2 gm/dl (3.4-5.0); BUN Creatinine Ratio 8.4 (10-20); Calcium 7.9 mg/dl (8.5-10.1); Creatinine Clr Calc Pharmacy 93.3 ml/min; Est GFR (Non-African American) 98.3; Magnesium 1.1 mg/dl (1.8-2.4)
[2020-01-02 20:17] LABS: Partial Thromboplastin Time 45.7 Seconds (21.0-31.0)
[2020-01-02 20:25] LABS: Albumin Globulin Ratio 0.8 (0.9-2); Bilirubin,Total 1.6 mg/dl (0.2-1); Globulin 3.8 gm/dl (2.5-4.0); Phosphorus 2.6 mg/dl (2.5-4.9); Troponin I 0.046 ng/ml (0-0.045)
[2020-01-02] MEDS ORDERED: CALCIUM GLUCONATE 10% 1,000 MG in SODIUM CHLORIDE 0.9% 50 ML IV STA (20:31)
[2020-01-02] MEDS: MAGNESIUM SULFATE / D5W 1 GM/100 ML BAG IV STA ×2 (21:19→22:30)
[2020-01-02] MEDS: POTASSIUM CHLORIDE / WTR 10 MEQ/100 ML PLCT IV SCH ×2 (21:20→22:30)
[2020-01-02] MEDS ORDERED: THIAMINE HCL 100 MG in SYRINGE 9 ML IV STA (21:59)
--- NOTE | 2020-01-02 22:05 | History & Physical Report ---
Date of Service January 02, 2020 Assessment & Plan (1) Alcohol withdrawal: Last drink was two days ago ,with current ETOH level zero. (2) Hypomagnesemia: severe hypomag at 1.1 likely related to poor nutrition. Cont with 4 bags of replacement. (3) Elevated transaminase level: related to chronic alcohol abuse. Trend in am. (4) Seizure: h/o seizures related to ETOH use. No AEDs on board. Reported seizure activity yesterday. Currently mentating well and answering questions appropriately. Neurology consulted. Seizure precautions. (5) Atrial fibrillation: chronic and reflected on todays EKG. Holding warfarin with elevated INR of 5. Bleeding from ear has stopped. No reversal agent given. Cont daily dig oxin. (6) Supratherapeutic INR: hold warfarin until it trends down. (7) Bleeding from left ear: reportedly from recent fall at home prior to arrival (8) HTN (hypertension): around goal. Cont outpatient medications. (9) Depression with anxiety: continue citalapram per home regimen. (10) Tobacco use disorder: Nicoderm. (11) Alcohol abuse: Cont thiamine and folic acid. (12) DVT prophylaxis: currently supratherapeutic and will trend INR over the next few days- holding warfarin Full code Dispo-home when medically stable Keesha Blackwell DO [facility] Hospitalist History of Present Illness Chief Complaint: Bleeding from ear, seizure Primary Care Provider: Mina Ordonez MD This is a 64yo F with a PMH of alcohol use disorder with history of DTs and seizure, tobacco use disorder, persistent atrial fibrillation on Coumadin, hypertension, mood disorder and other problem listed below who presents due to bleeding out of left ear. Reports having a seizure yesterday afternoon while watching TV during which she fell off the couch onto her left side. She then noticed bleeding from left ear beginning this morning that is slowly persisted all day with "oozing". Is taking Coumadin for history of atrial fibrillation. Came to the ED for further evaluation of bleeding. Patient denies any bowel or bladder incontinence or tongue biting during seizure yesterday afternoon. Denies taking any antiepileptics and it is difficult to obtain how frequent seizures are from patient. Endorses drinking four 16 ounce beers daily with last drink on Monday morning. States she didn't feel well enough to drink yesterday due to rapid heart rate. Smokes 1 pack/day. Currently feeling well with some diffuse abdominal pain. Denies any nausea or vomiting. Denies any fever, chills, lightheadedness, visual changes, confusion, chest pain, shortness of breath, dysuria, diarrhea or constipation. Has urinary incontinence at baseline. Allergies Allergy/AdvReac Type Severity Reaction Status Date / Time Sulfa (Sulfonamide Allergy Mild RASHES Verified 01/02/20 21:21 Antibiotics) morphine Allergy Rash Verified 01/02/20 21:21 trimethoprim Allergy Rash Verified 01/02/20 21:22 Home Medications Home Medications Medication Instructions Recorded Confirmed Type metoprolol succinate 50 mg PO BID 03/15/18 01/02/20 History warfarin 2.5 mg PO MOWEFR@1600 03/15/18 01/02/20 History Anoro Ellipta 1 ea INHALATION DAILY 11/23/18 01/02/20 History acetaminophen [Mapap 650 mg PO Q8H PRN #30 tab 11/28/18 01/02/20 Rx (acetaminophen)] albuterol sulfate 2 puff INHALATION Q4 PRN 01/02/20 01/02/20 History citalopram [Celexa] 20 mg PO DAILY 01/02/20 01/02/20 History digoxin [Digox] 250 mcg PO DAILY 01/02/20 01/02/20 History folic acid 0.4 mg PO DAILY 01/02/20 01/02/20 History thiamine HCl (vitamin B1) [Vitamin 100 mg PO DAILY 01/02/20 01/02/20 History B-1] tiotropium bromide [Spiriva with 1 cap INHALATION DAILY 01/02/20 01/02/20 History HandiHaler] warfarin [Coumadin] 5 mg PO SUTUTHSA@1600 01/02/20 01/02/20 History Past Med/Surg History Medical History Afib Anemia Atrial fibrillation Cancer LEFT BREAST (CHEMO AND RADIATION) Chronic obstructive pulmonary disease Hypertension Hyponatremia chronically low. Left ventricular enlargement BEING MONITORED BY ASHLY DUMONT Liver enzyme elevation Migraine Tobacco use disorder Surgical History History of section X1 History of colonoscopy History of left cataract extraction History of partial mastectomy LEFT History of tooth extraction Hx of shoulder surgery RT SHOULDER (S/P FX) Family History Other Cancer Heart disease Social History Smoking Status: Current every day smoker Tobacco Type: Cigarettes Cigarettes Per Day: 10; Second Hand Exposure: Yes; Do You Dip or Chew Tobacco: No; Tobacco Cessation Education Requested by Patient: No Hx Alcohol Use: Yes Alcohol type: beer Hx Substance Use: No Preferred Language: [place] Communication Ability: Effective 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 Physical Exam Physical Exam: General Appearance: vitals as above, chronically ill appearing, NAD, drowsy, conversing easily Head: normocephalic, atraumatic Eyes: normal inspection, PERRL, conjunctivae normal,injected sclerae ENT: Unable to visualize left TM 2/2 presence of blood. No active bleeding. Oropharynx normal Neck: trachea midline, no thyromegaly normal visual inspection Respiratory: normal respiratory effort, lungs clear to auscultation, no wheeze, rales, rhonchi. Normal insp/exp effort Cardiovascular: Tachycardic, irregular rhythm, no murmur appreciated, normal peripheral pulses. Vessels: no JVD Chest: normal inspection of chest Abdomen/GI: normal bowel sounds, soft, nontender, no hepatosplenomegaly Extremities/Musculoskeletal: no cyanosis or clubbing, extremities motor strength 5/5 Neurologic: PERRL, EOMI, CN's II-XI intact bilaterally and moves all extremities Psychiatric: A+Ox3, flat affect Skin: no rashes, normal color, warm/dry Results & Data Results & Data ([facility]) Vital Signs (Past 12 Hours) Vital Signs Temp Pulse Resp BP Pulse Ox 01/02/20 21:31 96 H 99 01/02/20 21:30 98 H 153/77 H 97 01/02/20 21:01 102 H 33 H 98 01/02/20 21:00 103 H 137/77 97 01/02/20 20:43 85 136/78 98 08/13/20 20:31 105 H 26 H 97 01/02/20 20:30 92 H 29 H 140/83 98 01/02/20 20:01 87 28 H 99 01/02/20 20:00 90 24 158/107 H 98 01/02/20 19:31 86 96 01/02/20 19:30 87 25 H 148/83 H 96 01/02/20 19:29 86 135/83 96 01/02/20 19:06 94 H 26 H 99 01/02/20 19:00 37.0 C 85 26 H 172/98 H 98 01/02/20 18:50 87 28 H 172/98 H 97 Laboratory Results Short CBC 01/02/20 Range/Units 19:31 WBC 7.31 (4.8-10.8) K/uL Hgb 14.6 (12.0-16.0) g/dL Hct 40.6 (37-47) % Plt Count 145 (130-400) K/uL BMP 01/02/20 19:31 Sodium 128 L Potassium 3.0 L Chloride 93 L Carbon Dioxide 24 BUN 5 L Creatinine 0.54 L Glucose 138 H Calcium 7.9 L Cardiac Enzymes 01/02/20 Range/Units 19:31 Troponin I 0.046 H* (0-0.045) ng/ml Liver Function 01/02/20 Range/Units 19:31 Total Bilirubin 1.6 H (0.2-1) mg/dl AST 101 H (15-37) U/L ALT 80 H (12-78) U/L Alkaline Phosphatase 128 H (45-117) U/L Albumin 3.2 L (3.4-5.0) gm/dl Diagnostic Findings Head CT: Impression: No significant change compared to the prior study. No acute intracranial abnormality. Cervical spine CT: IMPRESSION: No fractures within the cervical spine. Code Status & VTE Plan VTE Prophylaxis Plan VTE Prophylaxis will be ordered: Yes Supervising Physician Co-Signing Physician Notes I have seen and examined the patient and have discussed the case with the provider above. I agree with the assessment and plan as stated. 64 yo alcoholic who is undergoing alcohol withdrawal. She is having difficulty staying awake but is answering questions appropriately. Bleeding is resolved, and she denies and pain or discomfort at this time. She has a nonfocal neuro exam. Physical exam reveals irregular rate that is tachycardic without murmurs. No further active bleeding from her ear. Areas of ecchymosis on her arms, poor dentition. Generalized horizontal nystagmus present, otherwise no gross neurologic deficits. Somnolent. Agree with current plan. Trend trops ovneight. Echo in am. Consult neuro. Rishi,
[2020-01-02] MEDS ORDERED: ACETAMINOPHEN 325 MG TAB PO PRN (22:49)
[2020-01-02] MEDS ORDERED: ALBUTEROL HFA 8 GM INHALER INH PRN (22:49)
[2020-01-03] MEDS ORDERED: ACETAMINOPHEN 325 MG TAB PO PRN (00:16)
[2020-01-03] MEDS ORDERED: POLYETHYLENE (MIRALAX) 17 GM PACK PO PRN (00:16)
[2020-01-03 01:30] LABS: Hematocrit (blood only) 40.1 % (37-47); Hemoglobin 14.3 g/dL (12.0-16.0); Mean Corpuscular Hemoglobin 33.5 pg (25-34); Mean Corpuscular Hgb Conc 35.7 g/dL (32-36); Mean Corpuscular Volume 93.9 fL (80-100); Mean Platelet Volume 10.2 fL (7.4-10.4); Platelet Count 130 K/uL (130-400); RDW Coefficient of Variation 13.1 % (11.5-14.5); Red Blood Count 4.27 M/uL (4.2-5.4)
[2020-01-03 01:38] LABS: INR 2.3 (0.9-1.1); Prothrombin Time 22.9 Seconds (9.0-12.0)
[2020-01-03 01:49] LABS: BUN Creatinine Ratio 6.9 (10-20); Calcium 7.6 mg/dl (8.5-10.1); Creatinine Clr Calc Pharmacy 125.9 ml/min; Est GFR (African American) 125.8; Est GFR (Non-African American) 108.5; Magnesium 1.6 mg/dl (1.8-2.4); Potassium 3.1 mmol/L (3.5-5.1)
[2020-01-03 01:52] LABS: Albumin Globulin Ratio 0.8 (0.9-2); Globulin 3.6 gm/dl (2.5-4.0); Phosphorus 2.8 mg/dl (2.5-4.9); Total Protein 6.6 gm/dl (6.4-8.2)
[2020-01-03 01:53] LABS: Troponin I 0.049 ng/ml (0-0.045)
[2020-01-03] MEDS: MAGNESIUM SULFATE / D5W 1 GM/100 ML BAG IV SCH ×3 (02:13→06:06)
[2020-01-03 03:28] LABS: Amphetamines+Metham, Urine Neg (Neg); Barbiturates, Urine Neg (Neg); Benzodiazepine, Urine Neg (Neg); Cocaine, Urine Neg (Neg); MDMA (Ecstacy), Urine Neg (Neg); Methadone, Urine Neg (Neg); Opiate, Urine Neg (Neg); Phencyclidine, Urine Neg (Neg)
[2020-01-03] MEDS ORDERED: ATIVAN IV ALCOHOL WITHDRAWL IV PRN (08:27)
[2020-01-03] MEDS ORDERED: LORazepam 2 MG/4 ML VIAL IV PRN (08:28)
[2020-01-03] MEDS ORDERED: UMECLIDINIUM/VILANTEROL 62.5/25MCG 7 PUFFS/INHALER INH SCH (09:00)
[2020-01-03] MEDS ORDERED: MULTI-VITAMIN INFUSION 10 ML, THIAMINE HCL 100 MG, FOLIC ACID 1 MG in SODIUM CHLORIDE 0... IV ONE (09:00)
[2020-01-03] MEDS ORDERED: FOLIC ACID 400 MCG TAB PO SCH (09:00)
[2020-01-03] MEDS ORDERED: THIAMINE HCL 100 MG TAB PO SCH (09:00)
[2020-01-03] MEDS: METOPROLOL SUCC 50MG EXT REL TAB PO SCH ×2 (09:15→20:55)
[2020-01-03] MEDS: UMECLIDINIUM BROMIDE 62.5MCG/BLISTER 7 PUFFS/INHALER INH SCH (09:16)
[2020-01-03] MEDS: NICOTINE 21 MG/24 HR TDSY TD SCH (09:17)
[2020-01-03] MEDS ORDERED: chlordiazePOXIDE ALCOHOL WITHDRAWL 25MG PO STA (10:24)
[2020-01-03] MEDS: CHLORDIAZEPOXIDE 25MG STARTING DOSE PO SCH ×3 (11:43→23:55)
--- NOTE | 2020-01-03 14:59 | Hospitalist Progress Note ---
Date of Service January 03, 2020 Assessment & Plan (1) Seizure: 64-year-old female with history of alcoholism, DTs and seizures, smoker, Atrial fibrillation on Coumadin, hypertension, smoker/COPD, depression Other problems noted below presenting with seizure episode. Seizure likely secondary to alcohol withdrawal versus underlying seizure disorder CT head negative EEG pending Neurology service consulted Continue seizure precautions Alcoholism, possible alcohol withdrawal History of DTs Start alcohol withdrawal protocol including Librium and Ativan as needed Monitor closely Bleeding from left ear canal, status post fall from seizure Supratherapeutic INR, on chronic Coumadin for atrial fibrillation CT head no acute process INR improved from 5-2.3 We will hold Coumadin for today, and monitor patient ENT service consulted If no bleeding tomorrow, and okay with ENT service, will resume Coumadin tomorrow Had a long discussion with patient regarding chronic Coumadin use in the setting of multiple falls She prefers to continue on with Coumadin for stroke prevention at this time with acceptance of risks involved including major bleeding secondary to trauma from falls, which could be fatal Encouraged patient to undergo alcohol rehab as alcoholism results to weakness and unsteadiness leading to falls Patient declines inpatient alcohol rehab at this time but will try alcohol cessation at home Atrial fibrillation on Coumadin, old lacunar infarcts Heart rate controlled, continue metoprolol Management of Coumadin per above Hypertension Stable, monitor Depression/anxiety Stable, patient denies depression or anxiety at this time Continue Celexa DVT prophylaxis SCDs in light of recent bleeding from the left ear Disposition We will order PT and OT evaluation Patient lives with family Plan of care discussed with patient in detail and at length All questions were answered She is understanding, agreeable, comfortable with plan of care Admission and Anticipated Discharge Date Admission Date: January 02, 2020 Subjective Follow-up for seizure, status post fall, bleeding from left auditory canal Seen resting in bed, comfortable, sleeping but easily awakened Oriented x3, not in distress, in good spirits States that she does not remember events of yesterday except that she remembers that she had fallen Otherwise answers all other questions appropriately Denies headache, dizziness, blurring of vision Reports left ear bleeding has stopped since yesterday Reports mild left shoulder discomfort Admits to falling at least once a month for the past few months due to unsteadiness Denies chest pain, shortness of breath, palpitations, dizziness, syncope or presyncope Denies any other bleeding Denies tremors, anxiety, hallucinations, confusion No other symptoms Review of Systems Review of Systems: All systems reviewed & are unremarkable except as noted in HPI & below Physical Exam Physical Exam: General- oriented x 3, not in distress, speaks in sentences with no effort or accessory muscle use Head- atraumatic Eyes- PERRL, EOMI, anicteric ENT-positive blood clot in the left ear canal, no active bleeding noted, no other signs of injury noted , oropharynx clear Neck- supple, no JVD, no adenopathy, no thyromegaly; carotids +2/2, no bruits appreciated Lungs- clear to auscultation bilaterally, no rales/wheezes Heart- normal rate, Irregularly irregular rhythm; positive grade 2-3 holosystolic murmur, no gallop, no rub appreciated Abdomen- normal bowel sounds, nondistended, soft, nontender, no masses or hepatosplenomegaly Extremities- no pretibial edema, no calf tenderness; peripheral pulses intact Positive areas of ecchymosis on bilateral upper extremities, and small area on the left knee Neuro- alert, oriented x 3; CN 2-12 grossly intact; motor 5/5 bilaterally;sensation 100% on all extremities; no other gross focal neurologic deficits Skin- warm & dry Results & Data Results & Data ([facility]) Vital Signs (Past 12 Hours) Vital Signs Temp Pulse Resp BP Pulse Ox 01/03/20 11:08 36.9 C 54 L 18 113/66 95 01/03/20 07:36 36.9 C 75 18 121/73 97 01/03/20 04:00 36.9 C 96 H 20 139/78 96 Laboratory Results Laboratory Results - last 24 hr 01/02/20 01/02/20 01/02/20 19:31 19:31 19:31 WBC 7.31 RBC 4.31 Hgb 14.6 Hct 40.6 MCV 94.2 MCH 33.9 MCHC 36.0 RDW Std Deviation 45.3 RDW Coeff of Saw 13.1 Plt Count 145 MPV 10.3 Immature Gran % (Auto) 0.1 Neut % (Auto) 84.0 Lymph % (Auto) 7.1 [place] % (Auto) 8.5 Eos % (Auto) 0.0 Baso % (Auto) 0.3 Neut # (Auto) 6.14 Lymph # (Auto) 0.52 L [place] # (Auto) 0.62 H Eos # (Auto) 0.00 Baso # (Auto) 0.02 Immature Gran # (Auto) 0.01 PT INR APTT PTT Ratio Sodium 128 L Potassium 3.0 L Chloride 93 L Carbon Dioxide 24 Anion Gap 11.0 BUN 5 L Creatinine 0.54 L Est Cr Clr Drug Dosing 93.3 Est GFR ( Amer) 114.0 Est GFR (Non-Af Amer) 98.3 BUN/Creatinine Ratio 8.4 L Glucose 138 H Calcium 7.9 L Phosphorus 2.6 Magnesium 1.1 L Total Bilirubin 1.6 H AST 101 H ALT 80 H Alkaline Phosphatase 128 H Total Creatine Kinase Troponin I 0.046 H* Total Protein 7.0 Albumin 3.2 L Globulin 3.8 Albumin/Globulin Ratio 0.8 L Folate Digoxin Urine Opiates Screen Ur Methadone, Qual Urine Barbiturates Ur Phencyclidine (PCP) U Amphetamin/Meth Scrn MDMA (Ecstasy) Screen U Benzodiazepines Scrn Ur Cocaine Metabolite U Marijuana (THC) Screen Ethyl Alcohol mg/dL < 3.0 01/02/20 01/02/20 01/02/20 19:31 19:31 19:31 WBC RBC Hgb Hct MCV MCH MCHC RDW Std Deviation RDW Coeff of Saw Plt Count MPV Immature Gran % (Auto) Neut % (Auto) Lymph % (Auto) [place] % (Auto) Eos % (Auto) Baso % (Auto) Neut # (Auto) Lymph # (Auto) [place] # (Auto) Eos # (Auto) Baso # (Auto) Immature Gran # (Auto) PT 48.7 H INR 5.0 H APTT 45.7 H* PTT Ratio 1.6 Sodium Potassium Chloride Carbon Dioxide Anion Gap BUN Creatinine Est Cr Clr Drug Dosing Est GFR ( Amer) Est GFR (Non-Af Amer) BUN/Creatinine Ratio Glucose Calcium Phosphorus Magnesium Total Bilirubin AST ALT Alkaline Phosphatase Total Creatine Kinase Troponin I Total Protein Albumin Globulin Albumin/Globulin Ratio Folate 14.06 Digoxin 0.3 L Urine Opiates Screen Ur Methadone, Qual Urine Barbiturates Ur Phencyclidine (PCP) U Amphetamin/Meth Scrn MDMA (Ecstasy) Screen U Benzodiazepines Scrn Ur Cocaine Metabolite U Marijuana (THC) Screen Ethyl Alcohol mg/dL 01/03/20 01/03/2001/02/20 01:16 01:16 01:16 WBC 7.40 RBC 4.27 Hgb 14.3 Hct 40.1 MCV 93.9 MCH 33.5 MCHC 35.7 RDW Std Deviation 45.0 RDW Coeff of Saw 13.1 Plt Count 130 MPV 10.2 Immature Gran % (Auto) Neut % (Auto) Lymph % (Auto) [place] % (Auto) Eos % (Auto) Baso % (Auto) Neut # (Auto) Lymph # (Auto) [place] # (Auto) Eos # (Auto) Baso # (Auto) Immature Gran # (Auto) PT 22.9 H INR 2.3 H APTT PTT Ratio Sodium Potassium Chloride Carbon Dioxide Anion Gap BUN Creatinine Est Cr Clr Drug Dosing Est GFR ( Amer) Est GFR (Non-Af Amer) BUN/Creatinine Ratio Glucose Calcium Phosphorus Magnesium Total Bilirubin AST ALT Alkaline Phosphatase Total Creatine Kinase 243 H Troponin I 0.049 H* Total Protein Albumin Globulin Albumin/Globulin Ratio Folate Digoxin Urine Opiates Screen Ur Methadone, Qual Urine Barbiturates Ur Phencyclidine (PCP) U Amphetamin/Meth Scrn MDMA (Ecstasy) Screen U Benzodiazepines Scrn Ur Cocaine Metabolite U Marijuana (THC) Screen Ethyl Alcohol mg/dL 01/03/20 01/03/20 01/03/20 01:16 07:08 09:06 WBC RBC Hgb Hct MCV MCH MCHC RDW Std Deviation RDW Coeff of Saw Plt Count MPV Immature Gran % (Auto) Neut % (Auto) Lymph % (Auto) [place] % (Auto) Eos % (Auto) Baso % (Auto) Neut # (Auto) Lymph # (Auto) [place] # (Auto) Eos # (Auto) Baso # (Auto) Immature Gran # (Auto) PT INR APTT PTT Ratio Sodium 130 L Potassium 3.1 L Chloride 96 L Carbon Dioxide 25 Anion Gap 9.0 BUN 3 L Creatinine 0.40 L Est Cr Clr Drug Dosing 125.9 Est GFR ( Amer) 125.8 Est GFR (Non-Af Amer) 108.5 BUN/Creatinine Ratio 6.9 L Glucose 108 H Calcium 7.6 L Phosphorus 2.8 Magnesium 1.6 L Total Bilirubin 2.0 H AST 82 H ALT 68 Alkaline Phosphatase 117 Total Creatine Kinase Troponin I 0.058 H* Total Protein 6.6 Albumin 3.0 L Globulin 3.6 Albumin/Globulin Ratio 0.8 L Folate 9.30 Digoxin Urine Opiates Screen Ur Methadone, Qual Urine Barbiturates Ur Phencyclidine (PCP) U Amphetamin/Meth Scrn MDMA (Ecstasy) Screen U Benzodiazepines Scrn Ur Cocaine Metabolite U Marijuana (THC) Screen Ethyl Alcohol mg/dL 01/03/20 Unknown WBC RBC Hgb Hct MCV MCH MCHC RDW Std Deviation RDW Coeff of Saw Plt Count MPV Immature Gran % (Auto) Neut % (Auto) Lymph % (Auto) [place] % (Auto) Eos % (Auto) Baso % (Auto) Neut # (Auto) Lymph # (Auto) [place] # (Auto) Eos # (Auto) Baso # (Auto) Immature Gran # (Auto) PT INR APTT PTT Ratio Sodium Potassium Chloride Carbon Dioxide Anion Gap BUN Creatinine Est Cr Clr Drug Dosing Est GFR ( Amer) Est GFR (Non-Af Amer) BUN/Creatinine Ratio Glucose Calcium Phosphorus Magnesium Total Bilirubin AST ALT Alkaline Phosphatase Total Creatine Kinase Troponin I Total Protein Albumin Globulin Albumin/Globulin Ratio Folate Digoxin Urine Opiates Screen Neg Ur Methadone, Qual Neg Urine Barbiturates Neg Ur Phencyclidine (PCP) Neg U Amphetamin/Meth Scrn Neg MDMA (Ecstasy) Screen Neg U Benzodiazepines Scrn Neg Ur Cocaine Metabolite Neg U Marijuana (THC) Screen Neg Ethyl Alcohol mg/dL
--- NOTE | 2020-01-03 16:13 | Electroencephalogram ---
EEG Procedure Note Date of Service January 03, 2020 Start / End Times Start Time: 1114 End Time: 1134 Referring Physician Jose Maria Narvaez MD History Seizure Like activity ETOH withdrawal and hypomagnesemia Home Medication List Home Medications Medication Instructions Recorded Confirmed Type metoprolol succinate 50 mg PO BID 03/15/18 01/02/20 History warfarin 2.5 mg PO MOWEFR@1600 03/15/18 01/02/20 History Anoro Ellipta 1 ea INHALATION DAILY 11/23/18 01/02/20 History acetaminophen [Mapap 650 mg PO Q8H PRN #30 tab 11/28/18 01/02/20 Rx (acetaminophen)] albuterol sulfate 2 puff INHALATION Q4 PRN 01/02/20 01/02/20 History citalopram [Celexa] 20 mg PO DAILY 01/02/20 01/02/20 History digoxin [Digox] 250 mcg PO DAILY 01/02/20 01/02/20 History folic acid 0.4 mg PO DAILY 01/02/20 01/02/20 History thiamine HCl (vitamin B1) [Vitamin 100 mg PO DAILY 01/02/20 01/02/20 History B-1] tiotropium bromide [Spiriva with 1 cap INHALATION DAILY 01/02/20 01/02/20 History HandiHaler] warfarin [Coumadin] 5 mg PO SUTUTHSA@1600 01/02/20 01/02/20 History Inpatient Medication List Chlordiazepoxide HCl (Chlordiazepoxide 25mg Starting Dose) 25 mg PO Q6 [facility]; Protocol Stop: 01/04/20 06:01 Last Admin: 01/03/20 11:43 Dose: 25 mg Documented by: [id number] Metoprolol Succinate (Metoprolol Succ 50mg Ext Rel Tab) 50 mg PO BID [facility] Stop: 02/02/20 08:59 Last Admin: 01/03/20 09:15 Dose: 50 mg Documented by: [id number] Miscellaneous (Remove Nicoderm Patch) 1 ea N/A DAILY@0859 [facility] Stop: 02/02/20 08:58 Last Admin: 01/03/20 09:17 Dose: 1 ea Documented by: [id number] Nicotine (Nicotine 21 Mg/24 Hr Tdsy) 21 mg TD QAM [facility] Stop: 02/02/20 08:59 Last Admin: 01/03/20 09:17 Dose: 21 mg Documented by: [id number] Umeclidinium Woodward (Umeclidinium [place]ward 62.5mcg/Blister 7 Puffs/Inhaler) 1 puffs INH DAILY SARA Stop: 02/02/20 08:59 Last Admin: 01/03/20 09:16 Dose: 1 puffs Documented by: [id number] Umeclidinium/Vilanterol (Umeclidinium/Vilanterol 62.5/25mcg 7 Puffs/Inhaler) 1 puffs INH DAILY SRAA Stop: 02/02/20 08:59 Last Admin: 01/03/20 09:16 Dose: 1 puffs Documented by: [id number] Discontinued Medications Sodium Chloride (Nss 1000ml) 1,000 mls @ 999 mls/hr IV .Q1H1M SARA Stop: 01/02/20 20:00 Last Infusion: 01/02/20 20:27 Dose: 0 mls/hr Documented by: [id number] Admin: 01/02/20 19:22 Dose: 999 mls/hr Documented by: [id number] Lorazepam (Ativan) 1 mg in 2 mls @ 2 mls/min IV NOW STA Stop: 01/02/20 18:55 Last Admin: 01/02/20 19:14 Dose: 2 mls/min Documented by: [id number] Multivitamins 10 ml/ Thiamine HCl 100 mg/ Folic Acid 1 mg/Sodium Chloride 1,011.2 mls @ 500 mls/hr IV .Q2H2M ONE Stop: 01/02/20 20:55 Last Infusion: 01/02/20 21:55 Dose: 0 mls/hr Documented by: [id number] Admin: 01/02/20 19:41 Dose: 500 mls/hr Documented by: [id number] Potassium Chloride (K Frank / Wtr) 10 meq in 100 mls @ 100 mls/hr IV Q1H SARA Stop: 01/02/20 22:44 Last Infusion: 01/02/20 23:37 Dose: 0 mls/hr Documented by: [id number] Admin: 01/02/20 22:30 Dose: 100 mls/hr Documented by: [id number] Infusion: 01/02/20 22:19 Dose: 0 mls/hr Documented by: [id number] Admin: 01/02/20 21:20 Dose: 100 mls/hr Documented by: [id number] Magnesium Sulfate/Dextrose (Magnesium Sulfate / D5w) 1 gm in 100 mls @ 50 mls/hr IV Q2H STA Stop: 01/02/20 22:30 Last Infusion: 01/03/20 00:55 Dose: 0 mls/hr Documented by: [id number] Admin: 01/02/20 22:30 Dose: 50 mls/hr Documented by: [id number] Infusion: 01/02/20 22:30 Dose: 50 mls/hr Documented by: [id number] Admin: 01/02/20 21:19 Dose: 50 mls/hr Documented by: [id number] Calcium Gluconate 1,000 mg/ (Sodium Chloride) 60 mls @ 240 mls/hr IV NOW STA Stop: 01/02/20 20:45 Last Infusion: 01/02/20 21:35 Dose: 0 mls/hr Documented by: [id number] Admin: 01/02/20 21:19 Dose: 240 mls/hr Documented by: [id number] Thiamine HCl 100 mg/ Syringe 10 mls @ 2 mls/min IV NOW STA Stop: 01/02/20 22:03 Last Admin: 01/02/20 22:30 Dose: 2 mls/min Documented by: [id number] Magnesium Sulfate/Dextrose (Magnesium Sulfate / D5w) 1 gm in 100 mls @ 50 mls/hr IV Q2H SARA Stop: 01/03/20 03:34 Last Infusion: 01/03/20 08:06 Dose: 0 mls/hr Documented by: [id number] Admin: 01/03/20 06:06 Dose: 50 mls/hr Documented by: [id number] Infusion: 01/03/20 06:06 Dose: 0 mls/hr Documented by: [id number] Admin: 01/03/20 04:02 Dose: 50 mls/hr Documented by: [id number] Infusion: 01/03/20 04:02 Dose: 50 mls/hr Documented by: [id number] Admin: 01/03/20 02:13 Dose: 50 mls/hr Documented by: [id number] Lorazepam (Ativan) 1 mg in 2 mls @ 2 mls/min IV NOW STA Stop: 01/02/20 22:13 Last Admin: 01/02/20 22:41 Dose: 2 mls/min Documented by: [id number] Multivitamins 10 ml/ Thiamine HCl 100 mg/ Folic Acid 1 mg/Sodium Chloride 1,011.2 mls @ 500 mls/hr IV .Q2H2M ONE Stop: 01/03/20 11:01 Last Infusion: 01/03/20 11:17 Dose: 0 mls/hr Documented by: [id number] Admin: 01/03/20 09:15 Dose: 500 mls/hr Documented by: [id number] Description This is a 21 electrode EEG with a single channel dedicated to limited EKG. The electrodes were placed in accordance with the International 10-20 system This eeg was done during wakefulness and is of good quality the background rhythm is in the alpha range at 10 Hz and of up to 20uv and is maximum in posterior head regions. Central theta is present and frontal beta activity is prominent and extends centrally photic stimulation provokes no epileptiform activity and no spontaneous potentially epileptogenic discharges are seen during the tracing Interpretation normal eeg with excessive beta likely due to benzodiazepines used for treatment of withdrawal symptoms no epileptiform activity is seen Clinical Correlation Normal eeg during wakefulness no focal or generalized encephalopathy and no potentially epileptogenic patterns are seen Jose Maria Narvaez MD
--- NOTE | 2020-01-03 16:15 | Communication Note ---
Date of Service: January 03, 2020 Formal consult dictated there is no evidence for other than analcohol withdrawal/hypomagnesemic related seizure like event and no aed rx is needed Neurology will sign off but can return if any new issues develop or more seizure events are seen Jose Maria Narvaez MD
[2020-01-03] MEDS: DIGOXIN 0.25 MG TAB PO SCH (16:17)
--- NOTE | 2020-01-03 16:30 | Consultation Report ---
DATE OF CONSULTATION: 01/03/2020 CONSULTATION FOR: Dr. You. HISTORY OF PRESENT ILLNESS: The patient is 64 years old, is right handed. Currently resides in [place] and is followed for her medical problems by Dr. Mina Ordonez in the [facility] group. She has a chronic problem with ethanol abuse and has a history of prior delirium tremens and seizures, is a chronic smoker, has persistent atrial fibrillation, on Coumadin, hypertension, mood disorder and presented with bleeding out of her left ear, possibly after a fall and reported having a "seizure" yesterday afternoon while watching TV. The story suggests that she fell off the couch onto her left side and then noticed bleeding from her left ear yesterday morning that prompted admission. According to what she tells me now, these seizures occur and are manifested by eye fluttering and tremors of her hands, but she is totally awake during them and may be unable to stand, but does not lose consciousness. In this regard, she did not have bowel or bladder incontinence or tongue biting and it is not clear whether she fell just because she has a propensity for gait disturbance or whether this was part of the seizure, and the history is still very vague. She has never been placed on anti-seizure medications despite having had about 5 of these events over the years, but she is a little vague about when they occurred. Her sister does apparently suffer from epilepsy, but this is a different story. She does have chronic ethanol abuse and will admit to four 16 ounce beers daily, and I suspect it is more like 8. She claims her last drink was on Monday, which was 2 days prior to the event in question and she felt her heart was rapid, felt nonspecifically ill and did not feel like drinking and then awakened with some nausea, abdominal pain, no vomiting and then the event in question, the fall and then the oozing of blood from her left ear. 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 ALLERGIES: INCLUDE SULFA, MORPHINE, AND TRIMETHOPRIM. CURRENT MEDICATIONS: At home include metoprolol, warfarin, Anoro Ellipta, acetaminophen, albuterol, Celexa, digoxin, folic acid, thiamine 100 mg daily, Spiriva inhaler, and Coumadin. PAST MEDICAL HISTORY: As outlined above. 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 PAST SURGICAL HISTORY: Surgically, she has had section, colonoscopy, cataract extraction, partial mastectomy, tooth extraction, shoulder surgery on the right. FAMILY HISTORY: Positive for cancer, heart disease and epilepsy in her sister. SOCIAL HISTORY: Reveals her to be a smoker, a heavy consumer of ethanol. She lives with her who also consumes ethanol on a daily basis. She is not working outside the home. REVIEW OF SYSTEMS: Difficult to obtain directly from the patient. She describes some malaise the other day, but is otherwise pretty vague. She denies any new issues referable to head, eyes, ears, nose and throat. Has not had any fevers, sweats, chills, or exposure to COVID-19. She has had some shortness of breath and palpitations due to her COPD and chronic cardiac arrhythmias. She occasionally has some abdominal pain. She denies any diarrhea, frequent vomiting, etc. She has no significant complaints referable to her extremities. Neurologically, she has had the history of seizures related to ethanol withdrawal in the past and psychiatrically, she has some chronic depression. She claims to have a good normal dietary intake. PHYSICAL EXAMINATION: VITAL SIGNS: On admission, her blood pressure was 153/77, pulse was 98 and irregular. She was afebrile. Respirations were as high as 33. GENERAL: She was awake, alert, conversant, oriented. HEENT: Had no signs of cranial trauma. There was some mild bleeding from her left ear. No evidence for perforated tympanic membrane was seen. Eye movements were normal. Dentition was in a moderate state of repair. NECK: Supple. LUNGS: Clear. HEART: Had an irregularly irregular rhythm. EXTREMITIES: Free of edema. ABDOMEN: Free of ascites or hepatosplenomegaly. NEUROLOGIC: Today, neurologically she is awake, alert, oriented in 3 spheres, somewhat vague as a historian, but recognizes my name, knows that I see her sister for epilepsy, has a recall of the events leading to admission, but is a little vague about the fall and the history surrounding it. Her eye movements are normal. Visual gonzales are full. Acuity is grossly intact to near and far vision. Facial motility and strength and facial sensation is normal. Speech is clear. There is a slight tremor of the outstretched hands, but there is no asterixis. There is no myoclonus. There is no cerebellar dysmetria on pdcarv-[id number]-chyl or swbwq-[id number]-dmizs testing. Heel to lopez testing is well done. Rapid repetitive motions are well done. Reflexes are actually normal with the exception of ankle jerks which may be absent. Toes are downgoing. No Minoo signs are seen. Muscle strength testing is normal and sensory examination is intact surprisingly to vibration, light touch, and temperature. DATABASE: Her basic laboratory studies were unremarkable including a CBC and differential, but she had a markedly low magnesium at 1.1. Her troponin was slightly high. Liver enzymes were elevated. Alkaline phosphatase was up. Albumin was low. CT scan of the head showed some leukoencephalopathic changes, chronic bilateral lacunar infarctions and some generalized atrophy, probably appropriate for age and no disproportionate cerebellar atrophy is described. Cervical spine CT showed no fractures. An EEG done today was absolutely normal with the exception of some slight increased beta activity, likely reflective of the use of benzodiazepines to treat alcohol withdrawal. ASSESSMENT AND PLAN: At this point, I do not think we need to treat this woman with anticonvulsants. I am not sure exactly what occurred regarding the "seizure." By her description, she was aware of the eye fluttering and the tremulousness of the hands and was totally awake through the whole event. I am not sure this was an accentuation of perhaps an underlying essential tremor or manifestations of early alcohol withdrawal, but there was no bodily harm other than the fall, which could have been caused by her trying to get up quickly from the couch and tripping rather than an actual seizure activity. We certainly have a normal EEG, we have hypomagnesemia. We have ethanol withdrawal, all of which would argue for a seizure related to either her metabolic abnormality, i.e., the hypomagnesemia or alcohol withdrawal or both, and I would not treat this. At this point, she shows minimal signs of withdrawal. She is awake, alert and oriented. I do not think neurology needs to see her on a regular basis, but I will be happy to make another visit to her bedside should things change. She may well emerged into more full blown delirium tremens as time goes on, but she has gone 24 hours now after admission without any decline and I am optimistic this probably will not occur. JULIANNA
[2020-01-03] MEDS: LORazepam 0.5 MG TAB PO PRN (21:56)
--- NOTE | 2020-01-03 22:29 | Electrocardiogram Report ---
Test Reason : Blood Pressure : / mmHG Vent. Rate : 088 BPM Atrial Rate : 097 BPM P-R Int : 000 ms QRS Dur : 080 ms QT Int : 348 ms P-R-T Axes : 000 024 098 degrees QTc Int : 421 ms Atrial fibrillation Minimal voltage criteria for LVH, may be normal variant ST depression, consider subendocardial injury Nonspecific T wave abnormality Abnormal ECG When compared with ECG of 23-NOV-2018 02:31, No significant change Confirmed by Luis Padilla ([id number]) on 01/03/2020 10:29:12 PM Referred By: REFERRED SELF Confirmed By:Luis Padilla
--- NOTE | 2020-01-03 22:46 | Electrocardiogram Report ---
Test Reason : Blood Pressure : / mmHG Vent. Rate : 073 BPM Atrial Rate : 075 BPM P-R Int : 000 ms QRS Dur : 082 ms QT Int : 410 ms P-R-T Axes : 000 057 017 degrees QTc Int : 451 ms Atrial fibrillation Nonspecific ST and T wave abnormality Abnormal ECG When compared with ECG of 02-JAN-2020 18:50, ST less depressed in Anterolateral leads Confirmed by Luis Padilla ([id number]) on 01/03/2020 10:45:58 PM Referred By: REFERRED SELF Confirmed By:Luis Padilla
[2020-01-03] MEDS: LORazepam 3 MG/6 ML VIAL IV PRN (23:52)
[2020-01-04] MEDS: LORazepam 3 MG/6 ML VIAL IV PRN (01:41)
[2020-01-04] MEDS: CHLORDIAZEPOXIDE 25MG STARTING DOSE PO SCH (05:56)
[2020-01-04 08:30] LABS: INR 1.2 (0.9-1.1)
[2020-01-04] MEDS: NICOTINE 21 MG/24 HR TDSY TD SCH (09:00)
[2020-01-04] MEDS: THIAMINE HCL 100 MG TAB PO SCH (10:46)
[2020-01-04] MEDS: METOPROLOL SUCC 50MG EXT REL TAB PO SCH ×2 (10:47→19:55)
[2020-01-04] MEDS: UMECLIDINIUM BROMIDE 62.5MCG/BLISTER 7 PUFFS/INHALER INH SCH (10:47)
[2020-01-04] MEDS: FOLIC ACID 400 MCG TAB PO SCH (10:47)
[2020-01-04] MEDS: LORazepam 1 MG/2 ML VIAL IV PRN (11:51)
[2020-01-04] MEDS: CHLORDIAZEPOXIDE 25MG 2ND DOSE PO SCH ×2 (13:08→23:01)
[2020-01-04 14:14] LABS: Basophils # (auto) 0.04 K/uL (0-0.2); Basophils % (auto) 0.5 %; Eosinophils # (auto) 0.04 K/uL (0-0.5); Eosinophils % (auto) 0.5 %; Hematocrit (blood only) 39.3 % (37-47); Hemoglobin 13.9 g/dL (12.0-16.0); Immature Granulocytes # (auto) 0.02 K/uL (0.00-0.02); Immature Granulocytes % (auto) 0.3 %; Lymphocytes # (auto) 1.24 K/uL (1.2-3.4); Lymphocytes % (auto) 16.2 %; Mean Corpuscular Hemoglobin 33.7 pg (25-34); Mean Corpuscular Hgb Conc 35.4 g/dL (32-36); Mean Corpuscular Volume 95.2 fL (80-100); Mean Platelet Volume 10.3 fL (7.4-10.4); Monocytes # (auto) 0.64 K/uL (0.11-0.59); Monocytes % (auto) 8.4 %; Neutrophils # (auto) 5.66 K/uL (1.4-6.5); Neutrophils % (auto) 74.1 %; Platelet Count 123 K/uL (130-400); RDW Coefficient of Variation 12.8 % (11.5-14.5); RDW Standard Deviation 44.7 fL (36.4-46.3); Red Blood Count 4.13 M/uL (4.2-5.4); White Blood Count 7.64 K/uL (4.8-10.8)
[2020-01-04 14:44] LABS: BUN Creatinine Ratio 9.4 (10-20); Calcium 8.8 mg/dl (8.5-10.1); Creatinine Clr Calc Pharmacy 64.5 ml/min; Est GFR (African American) 97.8; Est GFR (Non-African American) 84.4; Magnesium 1.3 mg/dl (1.8-2.4); Potassium 2.4 mmol/L (3.5-5.1)
[2020-01-04] MEDS ORDERED: POTASSIUM CHLORIDE 20 MEQ TABCR PO STA (15:00)
[2020-01-04] MEDS: POTASSIUM CHLORIDE / WTR 10 MEQ/100 ML PLCT IV SCH ×4 (15:54→19:11)
[2020-01-04] MEDS: MAGNESIUM OXIDE 400 MG TAB PO SCH ×2 (15:55→19:55)
[2020-01-04] MEDS: MAGNESIUM SULFATE / D5W 1 GM/100 ML BAG IV SCH ×2 (15:55→17:56)
[2020-01-04] MEDS ORDERED: WARFARIN SOD 5 MG TAB PO SCH ×2 (16:00→17:45)
[2020-01-04] MEDS: DIGOXIN 0.25 MG TAB PO SCH (16:14)
[2020-01-04] MEDS ORDERED: HEPARIN SODIUM/DEXTROSE 25,000 UNITS/500 ML BAG IV SCH (16:15)
--- NOTE | 2020-01-04 16:30 | Hospitalist Progress Note ---
Date of Service January 04, 2020 Assessment & Plan (1) Seizure: 64-year-old female with history of alcoholism, DTs and seizures, smoker, Atrial fibrillation on Coumadin, hypertension, smoker/COPD, depression Other problems noted below presenting with seizure episode. Seizure likely secondary to alcohol withdrawal versus underlying seizure disorder CT head negative EEG: Normal eeg during wakefulness no focal or generalized encephalopathy and no potentially epileptogenic patterns are seen Neurology service consulted Continue seizure precautions Alcoholism, possible alcohol withdrawal History of DTs no signs of overt DTs continue alcohol withdrawal protocol including Librium and Ativan as needed Monitor closely Bleeding from left ear canal, status post fall from seizure Supratherapeutic INR, on chronic Coumadin for atrial fibrillation CT head no acute process INR improved from 5-2.3--> 1.2 CHADS-VASC score [address] Villar, can resume coumadin will also give Heparin 5000mg subq q8h Ciprodex BID, then Floxacin drops x 1 week upon discharge ff up with Dr. Villar 01/14/20 Had a long discussion with patient regarding chronic Coumadin use in the setting of multiple falls She prefers to continue on with Coumadin for stroke prevention at this time with acceptance of risks involved including major bleeding secondary to trauma from falls, which could be fatal Encouraged patient to undergo alcohol rehab as alcoholism results to weakness and unsteadiness leading to falls Patient declines inpatient alcohol rehab at this time but will try alcohol cessation at home Atrial fibrillation on Coumadin, old lacunar infarcts Heart rate controlled, continue metoprolol Management of Coumadin per above Hypertension Stable, monitor Depression/anxiety patient's daughter recently leading to patient's drinking will consult Psych re: depression vs. grieving Continue Celexa DVT prophylaxis will resume coumadin + heparin subcutaneous Disposition PT and OT evaluation Patient lives with family Plan of care discussed with patient in detail and at length All questions were answered She is understanding, agreeable, comfortable with plan of care Admission and Anticipated Discharge Date Admission Date: January 02, 2020 Subjective ff up for possible seizure, ear bleeding seen resting in bedside chair, sleeping but easily awakened oriented x 2, answers all questions appropriately occasionally gets confused and tried to get up from bed denies headache, dizziness, ear pain, problems with hearing no bleeding or discharge from left ear denies tremors, anxiety, hallucinations no chest pain,dyspnea, palpitations, dizziness patient's reports patient went back to drinking when patient's daughter December 21, 2019 has been feeling sad from losing her daughter tried to stop drinking last Monday no other symptoms Review of Systems Review of Systems: All systems reviewed & are unremarkable except as noted in HPI & below Physical Exam Physical Exam: General- oriented x 3, not in distress, speaks in sentences with no effort or accessory muscle use Eyes- anicteric Ear- (+) dried blood in the ear canal no active bleeding or discharge Neck- no JVD Lungs- clear breath sounds bilaterally, no rales/wheezes Heart- normal rate, irregularly irregular rhythm; no murmurs Abdomen- normal bowel sounds, nondistended, soft, nontender Extremities- no pretibial edema, no calf tenderness (+) small areas of hematoma upper arms BL mild on the left knee Neuro- alert, oriented x 3; no gross focal neurologic deficits Skin- warm & dry Results & Data Results & Data ([facility]) Vital Signs (Past 12 Hours) Vital Signs Temp Pulse Pulse Resp BP Pulse Ox 01/04/20 16:14 86 01/04/20 15:25 36.8 C 86 20 113/72 96 01/04/20 14:20 110 H 01/04/20 11:37 36.3 C L 83 18 125/79 99 01/04/20 07:45 36.9 C 68 18 94/60 L 98 01/04/20 07:00 74 Laboratory Results Laboratory Results - last 24 hr 01/04/20 01/04/20 01/04/20 07:57 13:56 13:56 WBC 7.64 RBC 4.13 L Hgb 13.9 Hct 39.3 MCV 95.2 MCH 33.7 MCHC 35.4 RDW Std Deviation 44.7 RDW Coeff of Saw 12.8 Plt Count 123 L MPV 10.3 Immature Gran % (Auto) 0.3 Neut % (Auto) 74.1 Lymph % (Auto) 16.2 [place] % (Auto) 8.4 Eos % (Auto) 0.5 Baso % (Auto) 0.5 Neut # (Auto) 5.66 Lymph # (Auto) 1.24 [place] # (Auto) 0.64 H Eos # (Auto) 0.04 Baso # (Auto) 0.04 Immature Gran # (Auto) 0.02 PT 13.0 H INR 1.2 H Sodium 128 L Potassium 2.4 L* D Chloride 93 L Carbon Dioxide 26 Anion Gap 9.0 BUN 7 Creatinine 0.74 D Est Cr Clr Drug Dosing 64.5 Est GFR ( Amer) 97.8 Est GFR (Non-Af Amer) 84.4 BUN/Creatinine Ratio 9.4 L Glucose 142 H Calcium 8.8 D Phosphorus Magnesium 1.3 L 01/04/20 13:56 WBC RBC Hgb Hct MCV MCH MCHC RDW Std Deviation RDW Coeff of Saw Plt Count MPV Immature Gran % (Auto) Neut % (Auto) Lymph % (Auto) [place] % (Auto) Eos % (Auto) Baso % (Auto) Neut # (Auto) Lymph # (Auto) [place] # (Auto) Eos # (Auto) Baso # (Auto) Immature Gran # (Auto) PT INR Sodium Potassium Chloride Carbon Dioxide Anion Gap BUN Creatinine Est Cr Clr Drug Dosing Est GFR ( Amer) Est GFR (Non-Af Amer) BUN/Creatinine Ratio Glucose Calcium Phosphorus 2.6 Magnesium
[2020-01-04] MEDS ORDERED: WARFARIN SOD 2.5 MG TAB PO ONE (16:45)
[2020-01-04] MEDS: HEPARIN SOD 5,000 UNIT/0.5 ML VIAL SQ SCH ×2 (16:52→23:02)
[2020-01-04] MEDS: Heparin IV Low Dose *NO* Bolus IV SCH (17:28)
[2020-01-04 17:31] LABS: Appearance Urine Slightly Cloudy (Clear); Bilirubin Urine Negative (Negative); Blood Urine 1+ (Negative); Color Urine Yellow; Glucose Urine UA Negative (Negative); Ketones Urine Negative (Negative); Leukocyte Esterase Urine 1+ (Negative); Nitrite Urine Negative (Negative); Protein Urine 1+ (Negative); Urobilinogen Urine Positive (Negative); pH Urine 6.5 (4.5-7.5)
[2020-01-04 17:58] LABS: Bacteria Urine 3+ (Negative); Epithelial Cell Urine >30 /lpf (0-5); Hyaline Casts Urine 0-5 /lpf (0-5)
[2020-01-04 17:59] LABS: RBC Urine 0-4 /hpf (0-4)
--- NOTE | 2020-01-04 18:54 | XRay Report ---
XR shoulder RT min 2V routine CLINICAL HISTORY: Right shoulder pain status post trauma COMPARISON: 02/26/2017 DISCUSSION: There is an old internally fixated proximal humeral fracture. No acute fractures are visu alized. There is an old healed fracture of the distal clavicle. No dislocations are visualized IMPRESSION: Old postsurgical and posttraumatic changes. No acute fractures or dislocations identified ACT 112: Negative or not required by law. Electronically signed by: Tyree Vidal M.D. 01/04/2020 6:53 PM
[2020-01-04] MEDS ORDERED: POTASSIUM CHLORIDE 20 MEQ in SODIUM CHLORIDE 0.9% 1000ML 1,000 ML IV SCH (19:30)
[2020-01-04] MEDS: CIPRO 0.3%/DEXAMETHASONE 0.1% OTIC SUSP 7.5ML OTL SCH (19:55)
[2020-01-04] MEDS: LORazepam 0.5 MG TAB PO PRN (20:54)
[2020-01-04 21:03] LABS: Calcium 8.4 mg/dl (8.5-10.1); Creatinine Clr Calc Pharmacy 72.4 ml/min; Est GFR (African American) 106.7; Est GFR (Non-African American) 92.1; Magnesium 2.1 mg/dl (1.8-2.4); Potassium 3.4 mmol/L (3.5-5.1)
[2020-01-05] MEDS: LORazepam 1 MG/2 ML VIAL IV PRN (01:46)
[2020-01-05] MEDS: HEPARIN SOD 5,000 UNIT/0.5 ML VIAL SQ SCH ×2 (06:43→13:20)
[2020-01-05] MEDS: CHLORDIAZEPOXIDE 25MG 2ND DOSE PO SCH (06:43)
[2020-01-05] MEDS: UMECLIDINIUM BROMIDE 62.5MCG/BLISTER 7 PUFFS/INHALER INH SCH (08:11)
[2020-01-05] MEDS: NICOTINE 21 MG/24 HR TDSY TD SCH (08:12)
[2020-01-05] MEDS: THIAMINE HCL 100 MG TAB PO SCH (08:12)
[2020-01-05] MEDS: FOLIC ACID 400 MCG TAB PO SCH (08:12)
[2020-01-05] MEDS: MAGNESIUM OXIDE 400 MG TAB PO SCH ×2 (08:14→20:48)
[2020-01-05] MEDS: METOPROLOL SUCC 50MG EXT REL TAB PO SCH ×2 (08:14→20:50)
[2020-01-05] MEDS: CIPRO 0.3%/DEXAMETHASONE 0.1% OTIC SUSP 7.5ML OTL SCH ×2 (08:16→20:49)
[2020-01-05 08:27] LABS: INR 1.2 (0.9-1.1); Prothrombin Time 12.6 Seconds (9.0-12.0)
[2020-01-05 10:06] LABS: BUN Creatinine Ratio 17.6 (10-20); Calcium 8.3 mg/dl (8.5-10.1); Creatinine Clr Calc Pharmacy 115.7 ml/min; Est GFR (African American) 124.8; Est GFR (Non-African American) 107.7; Phosphorus 2.9 mg/dl (2.5-4.9); Potassium 3.6 mmol/L (3.5-5.1)
--- NOTE | 2020-01-05 12:59 | Psychiatric Consultation ---
Date of Consultation January 05, 2020 Impression / Recommendations Impression 64-year-old female who has been treated with low-dose Celexa for years by primary care. She has a history of alcohol abuse and withdrawal and appears to have relapsed in her ethanol abuse following the of her daughter on December 21, 2019, attempting to quit 2 days prior to presentation with possible associated fall, rule out seizure. She does not describe symptoms of classic panic attacks or persistent free-floating anxiety but does perceive that the SSRI has been helpful over the years. Given age, cardiac history and mildly prolonged QTc interval at 44 and 01/04/2020, as well as chronic hyponatremia, Celexa may not be the preferred agent for her at this point. She is declining any targeted substance abuse therapy at this point but is willing to schedule with an outpatient psychiatrist for follow-up after discharge. She does not demonstrate suicidal or homicidal ideation or other symptomatology that would likely represent an acute safety concern or need for inpatient psychiatric hospitalization at this time. Dx: Bereavement; EtOH use disorder with symptoms of withdrawal; unspecified mood disorder 01/04 -Ordinarily I would not recommend trialing alternative antidepressant in the setting of alcohol withdrawal however in considering mood decompensation associated with bereavement as direct risk factor for continued alcohol abuse and further medical morbidity, I discussed consideration for alternative antidepressant trial and associated risks and benefits, namely considering sertraline as alternative agent. Again, alternative SSRI recommended as further titration of Celexa relatively contraindicated in setting of already mildly prolonged QTc interval, age, and cardiac history. As she is in a supervised setting and already off home dose of celexa, will give zoloft 50mg now x1 and then begin sertraline 75 mg p.o. daily tomorrow as alternative which can be titrated as an outpatient as indicated. -Discussed consideration for mirtazapine which has a lower risk for hyponat remia as compared to SSRIs however I was apprehensive about starting her on anything that would be additionally sedating at present. -Patient agreeable to referral for outpatient psychiatric follow-up -Substance abuse counseling recommended but declined -Continue treatment for alcohol withdrawal as per primary team (on librium and prn ativan.) Portions of the above document may have been created using voice recognition software which may introduce word substitution errors. Please direct any questions to the undersigned. Risk Factors Assessment Male: No : Yes Health Problems: Yes Substance Use Disorders: Yes Previous Attempt: No Previous Psychiatric Hospitalization: No Hopelessness: No Protective Factors Assessment : Yes Stable Relationships: Yes Supportive Family: Yes Psych History Identifying Data 64-year-old female reports longstanding treatment history on Celexa prescribed by primary care as her only psychiatric history. She does have a known history of alcohol abuse in the past as well. Presently admitted to the medical service that [facility] for seizure-like activity and fall in the setting of alcohol relapse Chief Complaint Consultation requested for depression, anxiety, bereavement, and alcohol abuse History of Present Illness Patient being worked up for possible seizure resulting in fall. Reportedly she started drinking again following the of her daughter on December 21, 2019 and try to stop drinking last Monday ethyl alcohol level was negative on admission. She was seen by Dr. Narvaez from neurology on who noted that symptoms were not consistent with overt, that she had never been treated with an anticonvulsant medication seizure despite 5 or so of these episodes over the years, and did not feel there was indication for treating with anticonvulsant in the setting of negative EEG. She is not showing signs of impending DTs. She is drowsy on approach but cooperative. Acknowledges sadness associated with of daughter earlier this month. She previously acknowledged some passive fleeting thoughts of desire for from the time of her daughter's however those have abated and she presently denies either passive or active wish and specifically denies any intent or plan for self-harm. She gives a self-report of 2 to 3 16 ounce Coors lights per day which she began drinking earlier this month. She reports that she had been abstinent for a period of time (2 yrs?) but had previously drank as much as 18 beers per day. She denies a history of rehab and has never participated in AA. She is not presently interested in any form of substance abuse counseling. She denies significant neurovegetative symptomatology and reports adequate sleep, adequate appetite, adequate concentration, denies anhedonia. Has been taking Celexa 20 mg daily for many years prescribed by PCP and she reports that historically was helpful for anxiety and also headaches. She denies any other alternative antidepressant treatment in the past. She denies symptoms of classic panic attacks and reports that her tremor seems to exacerbate with fatigue more than anxiety. She denies symptoms of psychosis and is oriented to time, place, and circumstances. Past Psychiatric History Current Psychiatric Diagnosis: etoh use disorder Outpatient Services: none Previous Psych Admissions: denies History of Previous Suicide Attempt: No Past Medication Trials: celexa - on for years. rx'd by PCP Allergies Allergy/AdvReac Type Severity Reaction Status Date / Time Sulfa (Sulfonamide Allergy Mild RASHES Verified 01/02/20 21:21 Antibiotics) morphine Allergy Rash Verified 01/02/20 21:21 trimethoprim Allergy Rash Verified 01/02/20 21:22 Home Medications Home Medications Medication Instructions Recorded Confirmed Type metoprolol succinate 50 mg PO BID 03/15/18 01/02/20 History warfarin 2.5 mg PO MOWEFR@1600 03/15/18 01/02/20 History acetaminophen [Mapap 650 mg PO Q8H PRN #30 tab 11/28/18 01/02/20 Rx (acetaminophen)] albuterol sulfate 2 puff INHALATION Q4 PRN 01/02/20 01/02/20 History citalopram [Celexa] 20 mg PO DAILY 01/02/20 01/02/20 History digoxin [Digox] 250 mcg PO DAILY 01/02/20 01/02/20 History folic acid 0.4 mg PO DAILY 01/02/20 01/02/20 History thiamine HCl (vitamin B1) [Vitamin 100 mg PO DAILY 01/02/20 01/02/20 History B-1] tiotropium bromide [Spiriva with 1 cap INHALATION DAILY 01/02/20 01/02/20 History HandiHaler] warfarin [Coumadin] 5 mg PO SUTUTHSA@1600 01/02/20 01/02/20 History Family History denies psych hx Substance Abuse History has given variable self report re etoh use. h/o drinking as much as 18 beers/day and reports h/o complicated withdrawal Personal History Living Arrangements: Home Born In: [place], [place] Employment Status: Retired ([employer]) Beliefs That Will Affect Care: None Patient History Medical History Afib Anemia Atrial fibrillation Cancer LEFT BREAST (CHEMO AND RADIATION) Chronic obstructive pulmonary disease Hypertension Hyponatremia chronically low. Left ventricular enlargement BEING MONITORED BY ASHLY DUMONT Liver enzyme elevation Migraine Tobacco use disorder Surgical History History of section X1 History of colonoscopy History of left cataract extraction History of partial mastectomy LEFT History of tooth extraction Hx of shoulder surgery RT SHOULDER (S/P FX) Family History Other Cancer Heart disease Social History Smoking Status: Current every day smoker Tobacco Type: Cigarettes Cigarettes Per Day: 10; Second Hand Exposure: Yes; Do You Dip or Chew Tobacco: No; Tobacco Cessation Education Requested by Patient: No Hx Alcohol Use: Yes Alcohol type: beer Hx Substance Use: No Preferred Language: Kenyan Communication Ability: Effective Boom Tender Required: No Beliefs That Will Affect Care: None marital status: Current Living Situation: Spouse How many Children do You have: 3 Other Information That Helps Us Care for You: No Feels Safe at Home: Yes Safety Concerns: Feels Safe At This Time Physical Exam Psychiatric: Orientation: oriented to person, oriented to place, oriented to time and cooperative Apperance: + disheveled Eye Contact: + poor eye contact Motor Behavior: + psychomotor retardation Speech: + abnormal rate/rhythm/volume of speech (soft, slow) Affect: + blunted affect Mood: no depressed mood ("sad") Thought Process: goal directed thought process Thought Content: reality based without delusions Suicidal Thoughts: denies suicidal thoughts, denies suicidal plan and denies suicidal intent Homicidal Thoughts: denies homicidal thoughts Hallucinations: no auditory hallucinations, no visual hallucinations and no tactile hallucinations Cognition: language grossly intact Insight: + fair insight Judgement: + fair judgement Vital Signs (Past 24 Hours): Last Vital Signs Temp 37.0 C 01/05/20 10:54 Pulse 75 01/05/20 10:54 Resp 20 01/05/20 10:54 BP 115/71 01/05/20 10:54 Pulse Ox 93 01/05/20 10:54 Review of Systems Constitutional: + fatigue; no anorexia Cardiovascular: no problem reported Gastrointestinal: no problem reported Neurologic: + gait abnormality, + unsteadiness and + falls Psychiatric: as per Subjective / HPI and + substance abuse; no hopelessness, no anhedonia, no abnormal sleep pattern, no suicidal ideation, no homicidal ideation, no panic attacks and no hallucinations 10 point review of systems is otherwise negative except as per HPI Results & Data (PSY) Medications Administered Ciprofloxacin/Dexamethasone (Cipro 0.3%/Dexamethasone 0.1% Otic Susp 7.5ml) 4 drops OTL BID [facility] Stop: 02/03/20 20:59 Last Admin: 01/05/20 08:16 Dose: 4 drops Documented by: [id number] Admin: 01/04/20 19:55 Dose: 4 drops Documented by: [id number] Digoxin (Digoxin 0.25 Mg Tab) 0.25 mg PO DAILY@1600 [facility] Stop: 02/02/20 15:59 Last Admin: 01/04/20 16:14 Dose: 0.25 mg Documented by: [id number] Admin: 01/03/20 16:17 Dose: 0.25 mg Documented by: [id number] Folic Acid (Folic Acid 400 Mcg Tab) 400 mcg PO DAILY [facility] Stop: 02/03/20 08:59 Last Admin: 01/05/20 08:12 Dose: 400 mcg Documented by: [id number] Admin: 01/04/20 10:47 Dose: 400 mcg Documented by: [id number] Heparin Sodium (Porcine) (Heparin Sod 5,000 Unit/0.5 Ml Vial) 5,000 units SQ Q8 [facility] Stop: 02/03/20 16:44 Last Admin: 01/05/20 06:43 Dose: 5,000 units Documented by: [id number] Cosigned by: [id number] Admin: 01/04/20 23:02 Dose: 5,000 units Documented by: [id number] Cosigned by: [id number] Admin: 01/04/20 16:52 Dose: 5,000 units Documented by: [id number] Cosigned by: [id number] Lorazepam (Ativan) 1 mg in 2 mls @ 2 mls/min IV UD PRN; Protocol PRN Reason: EtOH Withdrawl AWSS Score 6,7 Stop: 02/02/20 08:27 Last Admin: 01/05/20 01:46 Dose: 2 mls/min Documented by: [id number] Admin: 01/04/20 11:51 Dose: 2 mls/min Documented by: [id number] Lorazepam (Ativan) 3 mg in 6 mls @ 4 mls/min IV ONCE PRN; Protocol PRN Reason: EtOH Withdrawl AWSS Score >=10 Stop: 02/02/20 08:27 Last Admin: 01/04/20 01:41 Dose: 4 mls/min Documented by: [id number] Admin: 01/03/20 23:52 Dose: 4 mls/min Documented by: [id number] Lorazepam (Lorazepam 0.5 Mg Tab) 0.5 mg PO Q4H PRN PRN Reason: Anxiety Stop: 02/02/20 10:23 Last Admin: 01/04/20 20:54 Dose: 0.5 mg Documented by: [id number] Admin: 01/03/20 21:56 Dose: 0.5 mg Documented by: [id number] Magnesium Oxide (Magnesium Oxide 400 Mg Tab) 400 mg PO BID [facility] Stop: 02/03/20 15:04 Last Admin: 01/05/20 08:14 Dose: 400 mg Documented by: [id number] Admin: 01/04/20 19:55 Dose: 400 mg Documented by: [id number] Admin: 01/04/20 15:55 Dose: 400 mg Documented by: [id number] Metoprolol Succinate (Metoprolol Succ 50mg Ext Rel Tab) 50 mg PO BID [facility] Stop: 02/02/20 08:59 Last Admin: 01/05/20 08:14 Dose: 50 mg Documented by: [id number] Admin: 01/04/20 19:55 Dose: 50 mg Documented by: [id number] Admin: 01/04/20 10:47 Dose: Not Given Documented by: [id number] Admin: 01/03/20 20:55 Dose: 50 mg Documented by: [id number] Admin: 01/03/20 09:15 Dose: 50 mg Documented by: [id number] Miscellaneous (Remove Nicoderm Patch) 1 ea N/A DAILY@0859 [facility] Stop: 02/02/20 08:58 Last Admin: 01/05/20 08:15 Dose: 1 ea Documented by: [id number] Admin: 01/04/20 09:00 Dose: 1 ea Documented by: [id number] Admin: 01/03/20 09:17 Dose: 1 ea Documented by: [id number] Nicotine (Nicotine 21 Mg/24 Hr Tdsy) 21 mg TD QAM [facility] Stop: 02/02/20 08:59 Last Admin: 01/05/20 08:12 Dose: 21 mg Documented by: [id number] Admin: 01/04/20 09:00 Dose: 21 mg Documented by: [id number] Admin: 01/03/20 09:17 Dose: 21 mg Documented by: [id number] Thiamine HCl (Thiamine Hcl 100 Mg Tab) 100 mg PO DAILY [facility] Stop: 02/03/20 08:59 Last Admin: 01/05/20 08:12 Dose: 100 mg Documented by: [id number] Admin: 01/04/20 10:46 Dose: 100 mg Documented by: [id number] Umeclidinium [place] (Umeclidinium [place] 62.5mcg/Blister 7 Puffs/Inhaler) 1 puffs INH DAILY [facility] Stop: 02/02/20 08:59 Last Admin: 01/05/20 08:11 Dose: 1 puffs Documented by: [id number] Admin: 01/04/20 10:47 Dose: 1 puffs Documented by: [id number] Admin: 01/03/20 09:16 Dose: 1 puffs Documented by: [id number] Coding Level of Care Code 21614 U Intl Hosp Care Lvl 2 Time Spent (min) 50
[2020-01-05] MEDS ORDERED: SERTRALINE HCL 50 MG TABLET PO ONE (13:25)
[2020-01-05] MEDS: CHLORDIAZEPOXIDE 10MG 3RD DOSE PO SCH ×2 (14:04→20:51)
[2020-01-05] MEDS: cefTRIAXone SODIUM 1,000 MG in DEXTROSE 5% 50 ML IV SCH (15:41)
[2020-01-05] MEDS: WARFARIN SOD 5 MG TAB PO SCH (16:07)
[2020-01-05] MEDS: DIGOXIN 0.25 MG TAB PO SCH (16:08)
--- NOTE | 2020-01-05 16:33 | Electrocardiogram Report ---
Test Reason : Blood Pressure : / mmHG Vent. Rate : 080 BPM Atrial Rate : 375 BPM P-R Int : 000 ms QRS Dur : 084 ms QT Int : 420 ms P-R-T Axes : 000 067 -71 degrees QTc Int : 484 ms Atrial fibrillation Anterior infarct , age undetermined Nonspecific ST and T wave abnormality Abnormal ECG When compared with ECG of 03-JAN-2020 06:39, No significant change was found Confirmed by Luis Padilla ([id number]) on 01/05/2020 4:33:00 PM Referred By: REFERRED SELF Confirmed By:Luis Padilla
--- NOTE | 2020-01-05 18:30 | Hospitalist Progress Note ---
Date of Service January 05, 2020 Assessment & Plan (1) Seizure: 64-year-old female with history of alcoholism, DTs and seizures, smoker, Atrial fibrillation on Coumadin, hypertension, smoker/COPD, depression Other problems noted below presenting with seizure episode. Seizure likely secondary to alcohol withdrawal versus underlying seizure disorder CT head negative EEG: Normal eeg during wakefulness no focal or generalized encephalopathy and no potentially epileptogenic patterns are seen Neurology service consulted, antiseizure meds not indicated at this time Continue seizure precautions Alcoholism, possible alcohol withdrawal History of DTs no signs of overt DTs continue alcohol withdrawal protocol including Librium and Ativan as needed Monitor closely Bleeding from left ear canal, status post fall from seizure Supratherapeutic INR, on chronic Coumadin for atrial fibrillation CT head no acute process INR improved from 5-2.3--> 1.2 CHADS-VASC score [address] Villar, can resume coumadin INR today is 1.2 Continue Coumadin 5 mg daily Transition from heparin subcu to heparin drip as bridging Ciprodex BID, then Floxacin drops x 1 week upon discharge ff up with Dr. Villar 01/14/20 Had a long discussion with patient regarding chronic Coumadin use in the setting of multiple falls She prefers to continue on with Coumadin for stroke prevention at this time with acceptance of risks involved including major bleeding secondary to trauma from falls, which could be fatal Encouraged patient to undergo alcohol rehab as alcoholism results to weakness and unsteadiness leading to falls Patient declines inpatient alcohol rehab at this time but will try alcohol cessation at home Atrial fibrillation on Coumadin, old lacunar infarcts Heart rate controlled, continue metoprolol Management of Coumadin per above Hypertension Blood pressure on the lower side Start IV NSS Monitor Depression/anxiety patient's daughter recently leading to patient's drinking Consulted psych re: depression vs. grieving Recommend stopping Celexa and transitioning to Zoloft Monitor DVT prophylaxis coumadin + heparin drip Disposition PT and OT evaluation Patient lives with family Plan of care discussed with patient in detail and at length All questions were answered She is understanding, agreeable, comfortable with plan of care Admission and Anticipated Discharge Date Admission Date: January 02, 2020 Subjective Follow-up for status post fall, possible seizure, left ear bleeding, alcoholism Seen sitting up in bed, awake and alert, oriented x3 Patient's Jarrett visiting at bedside Patient is in good spirits today, states she feels better today Reports that she is less shaky, anxious, no hallucinations Denies headache, dizziness, change with vision, problems with hearing, no ear pain, no bleeding or discharge from the left ear Denies chest pain, palpitations, dizziness, shortness of breath No abdominal pain, problems with urination or bowel movement No fevers or chills Denies any other symptoms Review of Systems Review of Systems: All systems reviewed & are unremarkable except as noted in HPI & below Physical Exam Physical Exam: General- oriented x 3, not in distress, speaks in sentences with no effort or accessory muscle use Eyes- anicteric Left ear-blood clot noted, no active bleeding or discharge Neck- no JVD Lungs- clear breath sounds bilaterally, no crackles, no wheezing bilaterally Heart- normal rate, regular rhythm; no murmurs Abdomen- normal bowel sounds, nondistended, soft, nontender Extremities- no pretibial edema, no calf tenderness Neuro- alert, oriented x 3; no gross focal neurologic deficits Skin- warm & dry Results & Data Results & Data ([facility]) Vital Signs (Past 12 Hours) Vital Signs Temp Pulse Pulse Resp BP Pulse Ox 01/05/20 16:08 89 01/05/20 15:46 89 93/55 L 01/05/20 15:21 36.7 C 55 L 18 73/45 L 97 01/05/20 14:20 67 01/05/20 10:54 37.0 C 75 20 115/71 93 01/05/20 07:00 68
[2020-01-05 19:43] LABS: Basophils # (auto) 0.05 K/uL (0-0.2); Basophils % (auto) 0.7 %; Eosinophils # (auto) 0.12 K/uL (0-0.5); Eosinophils % (auto) 1.6 %; Hematocrit (blood only) 37.2 % (37-47); Hemoglobin 12.9 g/dL (12.0-16.0); Immature Granulocytes # (auto) 0.01 K/uL (0.00-0.02); Immature Granulocytes % (auto) 0.1 %; Lymphocytes # (auto) 2.47 K/uL (1.2-3.4); Lymphocytes % (auto) 32.9 %; Mean Corpuscular Hemoglobin 33.3 pg (25-34); Mean Corpuscular Volume 96.1 fL (80-100); Mean Platelet Volume 11.3 fL (7.4-10.4); Monocytes # (auto) 0.95 K/uL (0.11-0.59); Monocytes % (auto) 12.7 %; Platelet Count 117 K/uL (130-400); RDW Standard Deviation 44.9 fL (36.4-46.3); Red Blood Count 3.87 M/uL (4.2-5.4)
[2020-01-05 19:46] LABS: Mean Corpuscular Hgb Conc 34.7 g/dL (32-36)
[2020-01-05 19:54] LABS: INR 1.2 (0.9-1.1); Partial Thromboplastin Ratio 1.1; Partial Thromboplastin Time 30.4 Seconds (21.0-31.0)
[2020-01-05] MEDS: SODIUM CHLORIDE 0.9% 1000ML 1,000 ML IV SCH (20:00)
[2020-01-05] MEDS: Heparin IV Low Dose *NO* Bolus IV SCH ×2 (20:02→20:53)
[2020-01-05] MEDS: HEPARIN SODIUM/DEXTROSE 25,000 UNITS/500 ML BAG IV SCH (20:41)
[2020-01-06 03:19] LABS: INR 1.4 (0.9-1.1); Partial Thromboplastin Ratio 1.6; Partial Thromboplastin Time 43.6 Seconds (21.0-31.0); Prothrombin Time 14.1 Seconds (9.0-12.0)
[2020-01-06] MEDS ORDERED: HEPARIN IV BOLUS 2,000 UNITS in SYRINGE 0 ML IV ONE (06:00)
[2020-01-06] MEDS: CHLORDIAZEPOXIDE 10MG 3RD DOSE PO SCH (06:17)
[2020-01-06] MEDS: METOPROLOL SUCC 50MG EXT REL TAB PO SCH (08:28)
[2020-01-06] MEDS: CIPRO 0.3%/DEXAMETHASONE 0.1% OTIC SUSP 7.5ML OTL SCH ×2 (08:29→20:30)
[2020-01-06] MEDS: SERTRALINE HCL 50 MG TABLET PO SCH (08:29)
[2020-01-06] MEDS: NICOTINE 21 MG/24 HR TDSY TD SCH (08:29)
[2020-01-06] MEDS: THIAMINE HCL 100 MG TAB PO SCH (08:30)
[2020-01-06] MEDS: FOLIC ACID 400 MCG TAB PO SCH (08:30)
[2020-01-06] MEDS: UMECLIDINIUM BROMIDE 62.5MCG/BLISTER 7 PUFFS/INHALER INH SCH (08:30)
[2020-01-06] MEDS: MAGNESIUM OXIDE 400 MG TAB PO SCH ×2 (08:31→20:30)
[2020-01-06] MEDS: SODIUM CHLORIDE 0.9% 1000ML 1,000 ML IV SCH ×2 (08:31→20:33)
[2020-01-06] MEDS ORDERED: ATROPINE SULFATE 0.1 MG/ML 10ML SYR IV PRN (11:20)
[2020-01-06 11:48] LABS: Basophils # (auto) 0.03 K/uL (0-0.2); Basophils % (auto) 0.4 %; Eosinophils # (auto) 0.11 K/uL (0-0.5); Eosinophils % (auto) 1.6 %; Hematocrit (blood only) 35.4 % (37-47); Hemoglobin 12.2 g/dL (12.0-16.0); Immature Granulocytes # (auto) 0.01 K/uL (0.00-0.02); Immature Granulocytes % (auto) 0.1 %; Lymphocytes # (auto) 1.61 K/uL (1.2-3.4); Lymphocytes % (auto) 24.1 %; Mean Corpuscular Hemoglobin 33.3 pg (25-34); Mean Corpuscular Hgb Conc 34.5 g/dL (32-36); Mean Corpuscular Volume 96.7 fL (80-100); Mean Platelet Volume 10.8 fL (7.4-10.4); Monocytes # (auto) 0.98 K/uL (0.11-0.59); Monocytes % (auto) 14.7 %; Neutrophils # (auto) 3.93 K/uL (1.4-6.5); Neutrophils % (auto) 59.1 %; Platelet Count 116 K/uL (130-400); RDW Standard Deviation 45.8 fL (36.4-46.3); Red Blood Count 3.66 M/uL (4.2-5.4); White Blood Count 6.67 K/uL (4.8-10.8)
[2020-01-06 12:06] LABS: Partial Thromboplastin Ratio 1.7
[2020-01-06 12:08] LABS: BUN Creatinine Ratio 10.8 (10-20); Calcium 8.3 mg/dl (8.5-10.1); Creatinine Clr Calc Pharmacy 97.2 ml/min; Est GFR (African American) 117.7; Est GFR (Non-African American) 101.5; Potassium 3.4 mmol/L (3.5-5.1)
[2020-01-06 12:09] LABS: Partial Thromboplastin Time 47.3 Seconds (21.0-31.0)
[2020-01-06 12:49] LABS: Magnesium 1.2 mg/dl (1.8-2.4); Thyroid Stimulating Hormone 2.25 uIu/ml (0.300-4.500)
--- NOTE | 2020-01-06 12:58 | Electrocardiogram Report ---
Test Reason : Blood Pressure : / mmHG Vent. Rate : 049 BPM Atrial Rate : 000 BPM P-R Int : 000 ms QRS Dur : 080 ms QT Int : 424 ms P-R-T Axes : 000 012 009 degrees QTc Int : 383 ms Atrial fibrillation with slow ventricular response Minimal voltage criteria for LVH, may be normal variant Nonspecific ST abnormality Abnormal ECG When compared with ECG of 04-JAN-2020 06:58, Vent. rate has decreased BY 31 BPM T wave inversion no longer evident in Anterior leads QT has shortened Confirmed by Isauro Ayala ([id number] on 01/06/2020 12:57:33 PM Referred By: REFERRED SELF Confirmed By:Isauro Ayala
[2020-01-06] MEDS ORDERED: POTASSIUM CHLORIDE 20 MEQ TABCR PO ONE (13:30)
[2020-01-06] MEDS: MAGNESIUM SULFATE / D5W 1 GM/100 ML BAG IV SCH ×2 (13:39→16:25)
[2020-01-06] MEDS: cefTRIAXone SODIUM 1,000 MG in DEXTROSE 5% 50 ML IV SCH (15:52)
[2020-01-06] MEDS: WARFARIN SOD 5 MG TAB PO SCH (16:29)
[2020-01-06] MEDS: CHLORDIAZEPOXIDE 5MG 4TH DOSE PO SCH (18:11)
--- NOTE | 2020-01-06 18:35 | Hospitalist Progress Note ---
Date of Service January 06, 2020 Assessment & Plan (1) Seizure: 64-year-old female with history of alcoholism, DTs and seizures, smoker, Atrial fibrillation on Coumadin, hypertension, smoker/COPD, depression Other problems noted below presenting with seizure episode. Seizure likely secondary to alcohol withdrawal versus underlying seizure disorder CT head negative EEG: Normal eeg during wakefulness no focal or generalized encephalopathy and no potentially epileptogenic patterns are seen Neurology service consulted, antiseizure meds not indicated at this time Continue seizure precautions Alcoholism, possible alcohol withdrawal History of DTs no signs of overt DTs continue alcohol withdrawal protocol including Librium and Ativan as needed Monitor closely Bleeding from left ear canal, status post fall from seizure Supratherapeutic INR, on chronic Coumadin for atrial fibrillation CT head no acute process INR improved from 5-2.3--> 1.2 CHADS-VASC score [address] Villar, can resume coumadin INR today is 1.4 Continue Coumadin 5 mg daily Continue heparin drip as bridging Ciprodex BID, then Floxacin drops x 1 week upon discharge ff up with Dr. Villar 01/14/20 Had a long discussion with patient regarding chronic Coumadin use in the setting of multiple falls She prefers to continue on with Coumadin for stroke prevention at this time with acceptance of risks involved including major bleeding secondary to trauma from falls, which could be fatal Encouraged patient to undergo alcohol rehab as alcoholism results to weakness and unsteadiness leading to falls Patient declines inpatient alcohol rehab at this time but will try alcohol cessation at home Atrial fibrillation on Coumadin, old lacunar infarcts Positive bradycardia episodes Asymptomatic Digoxin, TSH levels normal Hold metoprolol and digoxin Monitor closely Management of Coumadin per above Hypertension Blood pressure on the lower side Start IV NSS Monitor Depression/anxiety patient's daughter recently leading to patient's drinking Consulted psych re: depression vs. grieving Recommend stopping Celexa and transitioning to Zoloft Mood much better today Monitor DVT prophylaxis coumadin + heparin drip Disposition PT and OT evaluation Patient lives with family Plan of care discussed with patient in detail and at length All questions were answered She is understanding, agreeable, comfortable with plan of care Admission and Anticipated Discharge Date Admission Date: January 02, 2020 Subjective Follow-up for status post fall, seizure, alcohol withdrawal, ear bleeding Seen sleeping but easily awakened Good spirits, oriented x3, not in distress, comfortable States that she feels better today Denies tremors, shaking, anxiety, hallucinations or confusion Denies headache, dizziness changes with vision focal neurologic deficits Denies hearing problems, tinnitus, ear bleeding or discharge No other bleeding Noted to have episodes of bradycardia, A. fib, in the morning Patient sleeping, asymptomatic EKG showed atrial fibrillation, heart rate 50s Review of Systems Review of Systems: All systems reviewed & are unremarkable except as noted in HPI & below Physical Exam Physical Exam: General- oriented x 3, not in distress, speaks in sentences with no effort or accessory muscle use Eyes- anicteric Ear-dried blood in the ear canal, no active bleeding or discharge Neck- no JVD Lungs- clear breath sounds bilaterally, no rales/wheezes Heart-mild bradycardia irregular irregular rhythm; no murmurs Abdomen- normal bowel sounds, nondistended, soft, nontender Extremities- no pretibial edema, no calf tenderness Neuro- alert, oriented x 3; no gross focal neurologic deficits Skin- warm & dry Results & Data Results & Data ([facility]) Vital Signs (Past 12 Hours) Vital Signs Temp Pulse Pulse Pulse Resp BP Pulse Ox 01/06/20 15:10 36.5 C 60 18 109/62 96 01/06/20 14:20 60 01/06/20 11:18 36.6 C 50 L 16 117/58 L 96 01/06/20 07:45 36.5 C 75 16 104/69 95 01/06/20 07:00 62 Laboratory Results Laboratory Results - last 24 hr 01/05/20 01/05/20 01/06/20 19:09 19:09 02:43 WBC 7.50 RBC 3.87 L Hgb 12.9 Hct 37.2 MCV 96.1 MCH 33.3 MCHC 34.7 RDW Std Deviation 44.9 RDW Coeff of Saw 13.0 Plt Count 117 L MPV 11.3 H Immature Gran % (Auto) 0.1 Neut % (Auto) 52.0 Lymph % (Auto) 32.9 [place]aden % (Auto) 12.7 Eos % (Auto) 1.6 Baso % (Auto) 0.7 Neut # (Auto) 3.90 Lymph # (Auto) 2.47 Bladen # (Auto) 0.95 H Eos # (Auto) 0.12 Baso # (Auto) 0.05 Immature Gran # (Auto) 0.01 PT 13.0 H 14.1 H INR 1.2 H 1.4 H APTT 30.4 43.6 H PTT Ratio 1.1 1.6 Sodium Potassium Chloride Carbon Dioxide Anion Gap BUN Creatinine Est Cr Clr Drug Dosing Est GFR ( Amer) Est GFR (Non-Af Amer) BUN/Creatinine Ratio Glucose Calcium Magnesium TSH Digoxin 01/06/20 01/06/20 01/06/20 11:33 11:33 11:33 WBC 6.67 RBC 3.66 L Hgb 12.2 Hct 35.4 L MCV 96.7 MCH 33.3 MCHC 34.5 RDW Std Deviation 45.8 RDW Coeff of Saw 13.0 Plt Count 116 L MPV 10.8 H Immature Gran % (Auto) 0.1 Neut % (Auto) 59.1 Lymph % (Auto) 24.1 Bladen % (Auto) 14.7 Eos % (Auto) 1.6 Baso % (Auto) 0.4 Neut # (Auto) 3.93 Lymph # (Auto) 1.61 Bladen # (Auto) 0.98 H Eos # (Auto) 0.11 Baso # (Auto) 0.03 Immature Gran # (Auto) 0.01 PT INR APTT 47.3 H* PTT Ratio 1.7 Sodium 134 L Potassium 3.4 L Chloride 102 Carbon Dioxide 24 Anion Gap 8.0 BUN 5 L Creatinine 0.49 L Est Cr Clr Drug Dosing 97.2 Est GFR ( Amer) 117.7 Est GFR (Non-Af Amer) 101.5 BUN/Creatinine Ratio 10.8 Glucose 96 Calcium 8.3 L Magnesium TSH Digoxin 01/06/20 01/06/20 11:33 11:33 WBC RBC Hgb Hct MCV MCH MCHC RDW Std Deviation RDW Coeff of Saw Plt Count MPV Immature Gran % (Auto) Neut % (Auto) Lymph % (Auto) Bladen % (Auto) Eos % (Auto) Baso % (Auto) Neut # (Auto) Lymph # (Auto) Bladen # (Auto) Eos # (Auto) Baso # (Auto) Immature Gran # (Auto) PT INR APTT PTT Ratio Sodium Potassium Chloride Carbon Dioxide Anion Gap BUN Creatinine Est Cr Clr Drug Dosing Est GFR ( Amer) Est GFR (Non-Af Amer) BUN/Creatinine Ratio Glucose Calcium Magnesium 1.2 L TSH 2.250 Digoxin 0.5 L
[2020-01-07] MEDS: HEPARIN SODIUM/DEXTROSE 25,000 UNITS/500 ML BAG IV SCH (03:38)
[2020-01-07 05:36] LABS: Basophils # (auto) 0.04 K/uL (0-0.2); Basophils % (auto) 0.6 %; Eosinophils # (auto) 0.13 K/uL (0-0.5); Hematocrit (blood only) 33.8 % (37-47); Hemoglobin 11.6 g/dL (12.0-16.0); Immature Granulocytes # (auto) 0.02 K/uL (0.00-0.02); Immature Granulocytes % (auto) 0.3 %; Lymphocytes # (auto) 2.01 K/uL (1.2-3.4); Lymphocytes % (auto) 30.3 %; Mean Corpuscular Hemoglobin 33.5 pg (25-34); Mean Corpuscular Hgb Conc 34.3 g/dL (32-36); Mean Corpuscular Volume 97.7 fL (80-100); Mean Platelet Volume 10.8 fL (7.4-10.4); Monocytes # (auto) 1.05 K/uL (0.11-0.59); Monocytes % (auto) 15.8 %; Neutrophils # (auto) 3.39 K/uL (1.4-6.5); Platelet Count 116 K/uL (130-400); RDW Coefficient of Variation 13.2 % (11.5-14.5); Red Blood Count 3.46 M/uL (4.2-5.4); White Blood Count 6.64 K/uL (4.8-10.8)
[2020-01-07] MEDS: CHLORDIAZEPOXIDE 5MG 4TH DOSE PO SCH (05:42)
[2020-01-07 05:47] LABS: Partial Thromboplastin Ratio 1.5; Partial Thromboplastin Time 40.7 Seconds (21.0-31.0)
[2020-01-07] MEDS ORDERED: HEPARIN IV BOLUS 4,000 UNITS in SYRINGE 0 ML IV STA (05:56)
[2020-01-07 06:03] LABS: BUN Creatinine Ratio 11.6 (10-20); Calcium 7.7 mg/dl (8.5-10.1); Creatinine Clr Calc Pharmacy 144.3 ml/min; Est GFR (Non-African American) 115.6; Magnesium 1.3 mg/dl (1.8-2.4); Potassium 3.7 mmol/L (3.5-5.1)
[2020-01-07] MEDS: SODIUM CHLORIDE 0.9% 1000ML 1,000 ML IV SCH ×2 (09:06→20:37)
[2020-01-07] MEDS: THIAMINE HCL 100 MG TAB PO SCH (09:06)
[2020-01-07] MEDS: UMECLIDINIUM BROMIDE 62.5MCG/BLISTER 7 PUFFS/INHALER INH SCH (09:06)
[2020-01-07] MEDS: CIPRO 0.3%/DEXAMETHASONE 0.1% OTIC SUSP 7.5ML OTL SCH ×2 (09:07→20:37)
[2020-01-07] MEDS: NICOTINE 21 MG/24 HR TDSY TD SCH (09:07)
[2020-01-07] MEDS: SERTRALINE HCL 50 MG TABLET PO SCH (09:08)
[2020-01-07] MEDS: FOLIC ACID 400 MCG TAB PO SCH (09:08)
[2020-01-07 09:13] LABS: INR 1.3 (0.9-1.1); Prothrombin Time 13.9 Seconds (9.0-12.0)
[2020-01-07] MEDS: MAGNESIUM SULFATE / D5W 1 GM/100 ML BAG IV SCH ×2 (09:27→11:36)
[2020-01-07] MEDS: MAGNESIUM CHLORIDE 64MG DELAYED REL TAB PO SCH ×2 (12:15→20:37)
[2020-01-07 13:01] LABS: Partial Thromboplastin Ratio 1.9
[2020-01-07 13:02] LABS: Partial Thromboplastin Time 54.4 Seconds (21.0-31.0)
[2020-01-07] MEDS: cefTRIAXone SODIUM 1,000 MG in DEXTROSE 5% 50 ML IV SCH (14:10)
[2020-01-07] MEDS: WARFARIN SOD 10 MG TAB PO SCH (17:26)
--- NOTE | 2020-01-07 19:41 | Hospitalist Progress Note ---
Date of Service January 07, 2020 Assessment & Plan (1) Seizure: 64-year-old female with history of alcoholism, DTs and seizures, smoker, Atrial fibrillation on Coumadin, hypertension, smoker/COPD, depression Other problems noted below presenting with seizure episode. In summary, the patient was admitted for an apparent, unwitnessed seizure episode resulting to a fall, subsequent left ear bleeding. Patient admits to having multiple episodes of falls at home. CT head: No acute process, hemorrhage Evaluated by neurology service, seizure attributed to possible alcohol withdrawal. Does not recommend initiation of antiepileptics. No seizure recurrence while admitted No signs of overt alcohol withdrawal symptoms while admitted, on Librium protocol. Left ear bleeding resolved with holding Coumadin. Discussed with ENT, okay to restart Coumadin. Has been on Coumadin with heparin bridge, with no recurrence of a bleeding. Clinically improving overall however while admitted, the patient noted to be in atrial fibrillation but having episodes of bradycardia in the 30s. Usual metoprolol and digoxin held, however intermittent episodes of bradycardia in the morning still noted. Brass Pickler consulted for bradycardia, chronic anticoagulation in the setting of multiple falls. Seizure likely secondary to alcohol withdrawal versus underlying seizure disorder CT head negative EEG: Normal eeg during wakefulness no focal or generalized encephalopathy and no potentially epileptogenic patterns are seen Neurology service consulted, antiseizure meds not indicated at this time Continue seizure precautions [facility] Alcohol[facility], possible alcohol withdrawal History of DTs no signs of overt DTs admitted continue alcohol withdrawal protocol including Librium and Ativan as needed Monitor closely Bleeding from left ear canal, status post fall from seizure Supratherapeutic INR on admission, on chronic Coumadin for atrial fibrillation CT head no acute process Coumadin held INR improved from 5-2.3--> 1.2 CHADS-VASC score [address] Villar, can resume coumadin INR today is 1.3 Was given Coumadin 5 mg x 2 days, increase Coumadin to 10 mg today Repeat INR tomorrow Continue heparin drip for bridging until INR therapeutic ENT recommendation: Ciprodex BID, then Floxacin drops x 1 week upon discharge ff up with [facility] ENT Dr. Villar 01/14/20 Had a long discussion with patient regarding chronic Coumadin use in the setting of multiple falls She prefers to continue on with Coumadin for stroke prevention at this time with acceptance of risks involved including major bleeding secondary to trauma from falls, which could be fatal Encouraged patient to undergo alcohol rehab as alcoholism results to weakness and unsteadiness leading to falls Patient declines inpatient alcohol rehab at this time but will try alcohol cessation at home Atrial fibrillation on Coumadin, Old lacunar infarcts CHADS-VASC score 5 patient noted to be in atrial fibrillation but having episodes of bradycardia in the 30s. Usual metoprolol and digoxin held, however intermittent episodes of bradycardia in the morning still noted. Asymptomatic Digoxin, TSH levels normal Hold metoprolol and digoxin Monitor closely Management of Coumadin per above will consult executive sous chef for bradycardia, chronic anticoagulation in the settin g of multiple falls. Hypomagnesemia Likely secondary to alcoholism Mag oxide changed to mag chloride IV magnesium also ordered Monitor and replete Multiple falls, likely secondary to alcoholism, question symptomatic bradycardia PT OT evaluation in progress Strongly encouraged to discontinue alcohol intake, transition to alcohol rehab Patient states she would discontinue drinking but would like to eventually go home and consider alcohol rehab in the future Hypertension Blood pressure on the lower side IV NSS Monitor Depression/anxiety patient's daughter recently leading to patient's drinking Consulted psych re: depression vs. grieving Recommend stopping Celexa and transitioning to Zoloft Mood improving Patient will need close follow-up with psychiatrist DVT prophylaxis coumadin + heparin drip Disposition PT and OT evaluation in progress Patient lives with family Follow-up with PCP Follow-up with cardiology Plan of care discussed with patient in detail and at length All questions were answered She is understanding, agreeable, comfortable with plan of care Admission and Anticipated Discharge Date Admission Date: January 02, 2020 Subjective Follow-up for seizure, status post fall, alcohol withdrawal Seen sleeping but easily awakened, in good spirits, oriented x3, answers all questions appropriately States she continues to feel improved Denies headache, dizziness, focal weakness or numbness or any focal neurologic deficits Denies ear bleeding or discharge, problems with hearing, tinnitus, nausea or vomiting Denies chest pain, palpitations, presyncope or syncope No other signs of bleeding Denies tremors, sweating, hallucinations, confusion No other symptoms Review of Systems Review of Systems: All systems reviewed & are unremarkable except as noted in HPI & below Physical Exam Physical Exam: General- oriented x 3, not in distress, speaks in sentences with no effort or accessory muscle use Eyes- anicteric Left ear-dried blood in the ear canal, no active bleeding or discharge Neck- no JVD Lungs- clear breath sounds bilaterally, no wheezing, no crackles bilaterally Heart- normal rate, irregularly irregular; no murmurs Abdomen- normal bowel sounds, nondistended, soft, nontender Extremities- no pretibial edema, no calf tenderness Neuro- alert, oriented x 3; no gross focal neurologic deficits Skin- warm & dry Results & Data Results & Data ([facility]) Vital Signs (Past 12 Hours) Vital Signs Temp Pulse Pulse Resp BP Pulse Ox 01/07/20 18:57 37.2 C 68 19 122/56 L 93 01/07/20 16:00 67 01/07/20 15:00 36.7 C 69 18 105/69 98
[2020-01-08] MEDS: HEPARIN SODIUM/DEXTROSE 25,000 UNITS/500 ML BAG IV SCH ×2 (06:26→07:40)
[2020-01-08 06:49] LABS: INR 1.3 (0.9-1.1); Partial Thromboplastin Ratio 1.5; Partial Thromboplastin Time 41.3 Seconds (21.0-31.0); Prothrombin Time 13.9 Seconds (9.0-12.0)
[2020-01-08 07:08] LABS: BUN Creatinine Ratio 17.7 (10-20); Creatinine Clr Calc Pharmacy 111.1 ml/min; Est GFR (African American) 122.8; Potassium 3.5 mmol/L (3.5-5.1)
[2020-01-08] MEDS ORDERED: HEPARIN IV BOLUS 2,000 UNITS in SYRINGE 0 ML IV SCH (07:30)
[2020-01-08] MEDS: CIPRO 0.3%/DEXAMETHASONE 0.1% OTIC SUSP 7.5ML OTL SCH (07:40)
[2020-01-08] MEDS: NICOTINE 21 MG/24 HR TDSY TD SCH (07:41)
[2020-01-08] MEDS: THIAMINE HCL 100 MG TAB PO SCH (07:41)
[2020-01-08] MEDS: UMECLIDINIUM BROMIDE 62.5MCG/BLISTER 7 PUFFS/INHALER INH SCH (07:41)
[2020-01-08] MEDS: MAGNESIUM CHLORIDE 64MG DELAYED REL TAB PO SCH (07:41)
[2020-01-08] MEDS: SERTRALINE HCL 50 MG TABLET PO SCH (07:41)
[2020-01-08] MEDS: FOLIC ACID 400 MCG TAB PO SCH (07:41)
[2020-01-08] MEDS: SODIUM CHLORIDE 0.9% 1000ML 1,000 ML IV SCH (07:41)
--- NOTE | 2020-01-08 08:53 | Discharge Summary ---
Date of Service January 08, 2020 Admission HPI Per Admitting Provider This is a 64yo F with a PMH of alcohol use disorder with history of DTs and seizure, tobacco use disorder, persistent atrial fibrillation on Coumadin, hypertension, mood disorder and other problem listed below who presents due to bleeding out of left ear. Reports having a seizure yesterday afternoon while watching TV during which she fell off the couch onto her left side. She then noticed bleeding from left ear beginning this morning that is slowly persisted all day with "oozing". Is taking Coumadin for history of atrial fibrillation. Came to the ED for further evaluation of bleeding. Patient denies any bowel or bladder incontinence or tongue biting during seizure yesterday afternoon. Denies taking any antiepileptics and it is difficult to obtain how frequent seizures are from patient. Endorses drinking four 16 ounce beers daily with last drink on Monday morning. States she didn't feel well enough to drink yesterday due to rapid heart rate. Smokes 1 pack/day. Currently feeling well with some diffuse abdominal pain. Denies any nausea or vomiting. Denies any fever, chills, lightheadedness, visual changes, confusion, chest pain, shortness of breath, dysuria, diarrhea or constipation. Has urinary incontinence at baseline. Admission Exam Per Admitting Provider General Appearance: vitals as above, chronically ill appearing, NAD, drowsy, conversing easily Head: normocephalic, atraumatic Eyes: normal inspection, PERRL, conjunctivae normal,injected sclerae ENT: Unable to visualize left TM 2/2 presence of blood. No active bleeding. Oropharynx normal Neck: trachea midline, no thyromegaly normal visual inspection Respiratory: normal respiratory effort, lungs clear to auscultation, no wheeze, rales, rhonchi. Normal insp/exp effort Cardiovascular: Tachycardic, irregular rhythm, no murmur appreciated, normal peripheral pulses. Vessels: no JVD Chest: normal inspection of chest Abdomen/GI: normal bowel sounds, soft, nontender, no hepatosplenomegaly Extremities/Musculoskeletal: no cyanosis or clubbing, extremities motor strength 5/5 Neurologic: PERRL, EOMI, CN's II-XI intact bilaterally and moves all extremities Psychiatric: A+Ox3, flat affect Skin: no rashes, normal color, warm/dry Principal Diagnosis Seizure: Seizure likely secondary to alcohol withdrawal versus underlying seizure disorder Alcoholism, possible alcohol withdrawal Bleeding from left ear canal, status post fall from seizure Supratherapeutic INR on admission Atrial fibrillation Hypomagnesemia Multiple falls, likely secondary to alcoholism, question symptomatic bradycardia Hypertension Depression/anxiety Discharge Exam ROS-No Headache, No Visual Changes, No Nausea, No Vomiting, No Fever, No Chills, No Neck Pain or Stiffness, No Chest Pain, No Palpitations, No SOB, No CHURCH, No Cough, No Sputum, No Wheezing, No Abdominal Pain, No Diarrhea, No Hematemesis, No Hemoptysis, No Unexpected Weight Loss, No Flank pain, No Melena, No Hematochezia, No Frequency, No Urgency, No Burning, No Hematuria, No Rashes, No Diaphoresis. Appetite is Normal Physical Exam Gen-AAO x 3, NAD, Afebrile Head-NCAT, EOMI, PERRLA, Anicteric Sclera, No Posterior Pharyngeal Erythema Neck-Supple, No JVD, No Thyromegaly, No Masses, No LAD, No Bruits Lungs-Clear to Auscultation Bilaterally, No Rales, No Rhonchi, No Wheezing, No Crepitus Chest-No S4, +S1, +S2, No S3, No Murmurs, No Rubs, No Gallops, No Ectopy Abdomen-Soft, Bowel Sounds Present, Non Tender, Non Distended, No Hepatomegaly, No Splenomegaly, No Palpable Masses, No Rebound, No Rigidity, No Guarding Musculoskeletal-Full Range of Motion Bilaterally, No CVAT Extremities-No Cyanosis, No Clubbing, No Edema Nuero-Cranial Nerves II-XII grossly intact, Motor WNL, DTRs WNL, Strength WNL, Non Focal Psych-Normal Mood Discharge Data Allergies Allergy/AdvReac Type Severity Reaction Status Date / Time Sulfa (Sulfonamide Allergy Mild RASHES Verified 01/02/20 21:21 Antibiotics) morphine Allergy Rash Verified 01/02/20 21:21 trimethoprim Allergy Rash Verified 01/02/20 21:22 Consultations 01/02/20 20:54 ED Decision to Admit Stat 01/03/20 00:16 Consult Case Management - Discharge Planning Routine 01/03/20 07:00 Consult Neurology Routine 01/03/20 14:14 Consult Otolaryngology (Head and Neck) Routine 08/15/20 16:28 Consult Psychiatry Routine 01/07/20 19:52 Consult Cardiology Routine Ordered Studies 01/02/20 18:54 CT cervical spine wo con Stat CT head/brain wo con Stat Current Diagnoses Hypomagnesemia (01/02/20) Alcohol abuse, uncomplicated (01/02/20) Alcohol dependence with withdrawal, unspecified (01/02/20) Nicotine dependence, unspecified, uncomplicated (01/02/20) Other specified anxiety disorders (01/02/20) Otorrhagia, left ear (01/02/20) Essential (primary) hypertension (01/02/20) Unspecified atrial fibrillation (01/02/20) Unspecified convulsions (01/02/20) Nonspecific elevation of levels of transaminase and lactic acid dehydrogenase [LDH] (01/02/20) Abnormal coagulation profile (01/02/20) Encounter for prophylactic measures, unspecified (01/02/20) Allergies Sulfa (Sulfonamide Antibiotics) Allergy (Mild, Verified 01/02/20 21:21) RASHES morphine Allergy (Verified 01/02/20 21:21) Rash trimethoprim Allergy (Verified 01/02/20 21:22) Rash Height/Weight/Isolation Height 5 ft 2 in Weight 61.6 kg Chemistry 01/06/20 01/07/20 01/08/20 11:33 05:10 06:16 Sodium 134 L 132 L 134 L Potassium 3.4 L 3.7 3.5 Chloride 102 104 103 Carbon Dioxide 24 23 24 Anion Gap 8.0 5.0 7.0 BUN 5 L 4 L 8 Creatinine 0.49 L 0.33 L 0.43 L Glucose 96 87 93 Microbiology 01/04/20 17:20 Urine,Straight Cath Urine Culture - Final Escherichia coli Hospital Course (1) Seizure: 64-year-old female with history of alcoholism, DTs and seizures, smoker, Atrial fibrillation on Coumadin, hypertension, smoker/COPD, depression Other problems noted below presenting with seizure episode. In summary, the patient was admitted for an apparent, unwitnessed seizure episode resulting to a fall, subsequent left ear bleeding. Patient admits to having multiple episodes of falls at home. CT head: No acute process, hemorrhage Evaluated by neurology service, seizure attributed to possible alcohol withdrawal. Does not recommend initiation of antiepileptics. No seizure recurrence while admitted No signs of overt alcohol withdrawal symptoms while admitted, on Librium protocol. Left ear bleeding resolved with holding Coumadin. Discussed with ENT, okay to restart Coumadin. Has been on Coumadin with heparin bridge, with no recurrence of a bleeding. Clinically improving overall however while admitted, the patient noted to be in atrial fibrillation but having episodes of bradycardia in the 30s. Usual metoprolol and digoxin held, however intermittent episodes of bradycardia in the morning still noted. [place] Lacer consulted for bradycardia, chronic anticoagulation in the setting of multiple falls. DC later today, pt still wants to take lovenox Seizure likely secondary to alcohol withdrawal versus underlying seizure disorder CT head negative EEG: Normal eeg during wakefulness no focal or generalized encephalopathy and no potentially epileptogenic patterns are seen Neurology service consulted, antiseizure meds not indicated at this time Continue seizure precautions Will need to be reported to [facility] Alcoholism, possible alcohol withdrawal History of DTs no signs of overt DTs admitted continue alcohol withdrawal protocol including Librium and Ativan as needed Bleeding from left ear canal, status post fall from seizure Supratherapeutic INR on admission, on chronic Coumadin for atrial fibrillation CT head no acute process CHADS-VASC score [address] Villar, can resume coumadin ENT recommendation: Ciprodex BID, then Floxacin drops x 1 week upon discharge ff up with [facility] ENT Dr. Villar 01/14/20 Had a long discussion with patient regarding chronic Coumadin use in the setting of multiple falls She prefers to continue on with Coumadin for stroke prevention at this time with acceptance of risks involved including major bleeding secondary to trauma from falls, which could be fatal Encouraged patient to undergo alcohol rehab as alcoholism results to weakness and unsteadiness leading to falls Patient declines inpatient alcohol rehab at this time but will try alcohol cessation at home Atrial fibrillation on Coumadin, Old lacunar infarcts CHADS-VASC score 5 patient noted to be in atrial fibrillation but having episodes of bradycardia in the 30s. Usual metoprolol and digoxin held, however intermittent episodes of bradycardia in the morning still noted. Hypomagnesemia Likely secondary to alcoholism Mag oxide changed to mag chloride IV magnesium also ordered Monitor and replete Multiple falls, likely secondary to alcoholism, question symptomatic bradycardia PT OT evaluation in progress Strongly encouraged to discontinue alcohol intake, transition to alcohol rehab Patient states she would discontinue drinking but would like to eventually go home and consider alcohol rehab in the future Hypertension Blood pressure on the lower side IV NSS Monitor Depression/anxiety patient's daughter recently leading to patient's drinking Consulted psych re: depression vs. grieving Recommend stopping Celexa and transitioning to Zoloft Mood improving Patient will need close follow-up with psychiatrist DVT prophylaxis coumadin + heparin drip Disposition PT and OT evaluation in progress Patient lives with family Follow-up with PCP Follow-up with cardiology Plan of care discussed with patient in detail and at length All questions were answered She is understanding, agreeable, comfortable with plan of care Total Time Total Time Spent Total Time Spent (In Minutes): 45 mins Total Time Includes: Examination of the Patient, Discharge Planning, Medication Reconciliation and Communication With Other Providers Discharge Plan Discharge Items Patient Disposition: Home - Self-Care Reason For Visit: ALCOHOL WITHDRAWAL, EPILEPSY Discharge Diagnosis: Seizure: Seizure likely secondary to alcohol withdrawal versus underlying seizure disorder Alcoholism, possible alcohol withdrawal Bleeding from left ear canal, status post fall from seizure Supratherapeutic INR on admission Atrial fibrillation Hypomagnesemia Multiple falls, likely secondary to alcoholism, question symptomatic bradycardia Hypertension Depression/anxiety Condition on Discharge: Good Health Concerns: Alcohol intake-needs to stop Activity: Resume your previous activity Activity Comment: no drinking Lifting: Gradually increase as tolerated Bathing: No limitations Sexual Activity: When tolerated Exercise/Sports: None Driving/Machine Use: none Weightbearing: Full weightbearing Non-emergency contact: Primary Care Provider Call non-emergency contact if: you have any medication questions Follow-up/Referrals: Mina Ordonez MD [Primary Care Provider] - Diet: Regular Addtl Attending Provider Instructions: none Pending Studies at Discharge: No Stand-Alone Forms: My [employer], Smoking Cessation Medications and DC Order Prescriptions: New sertraline 50 mg Tablet 75 mg PO QAM Qty: 60 RF: 0 Ciprodex 0.3-0.1 % Drops,Suspension 4 drp OTL BID Qty: 7.5 RF: 0 Continued acetaminophen [Mapap (acetaminophen)] 325 mg Tablet 650 mg PO Q8H PRN (Reason: pain ) Qty: 30 RF: 0 thiamine HCl (vitamin B1) [Vitamin B-1] 100 mg Tablet 100 mg PO DAILY RF: 0 digoxin [Digox] 250 mcg (0.25 mg) tablet 250 mcg PO DAILY RF: 0 folic acid 400 mcg Tablet 0.4 mg PO DAILY RF: 0 citalopram [Celexa] 20 mg tablet 20 mg PO DAILY RF: 0 albuterol sulfate 90 mcg/actuation Hfa Aerosol Inhaler 2 puff INHALATION Q4 PRN (Reason: Shortness Of Breath Or Wheezing) RF: 0 Spiriva with HandiHaler 18 mcg capsule, w/inhalation device 1 cap INHALATION DAILY RF: 0 warfarin [Coumadin] 5 mg Tablet 5 mg PO SUTUTHSA@1600 RF: 0 metoprolol succinate 50 mg Tablet Extended Release 24 Hr 50 mg PO BID RF: 0 warfarin 5 mg Tablet 2.5 mg PO MOWEFR@1600 RF: 0 Discharge Orders: Discharge Order (Routine); Ordered 01/08/20 Ordered By: Bautista Major Admission Data Admit Date/Time: 01/02/20 21:59 Attending Provider: Bautista Major Admit Provider: Keesha Blackwell Primary Care Provider: Mina Ordonez Other Providers: Silver Duong ; Jose Maria Narvaez ; Keesha Blackwell ; Amanda Villar ; Walter Estrada ; Sachi Acuña ; Mack Pickard ; Maroi Bass ; Earnest Lee ; Shauna Hollis ; Jd Haas ; Myra Lott ; Jessica Lacy ; Eloisa Davey ; Emily Frank ; Jai Moran I. ; Marla Khanna ; Evelia Mcmullen ; Suyapa Valentin ; Urbano Larson ; Jd Riggs Other Interventions: PSY Interdisciplinary Discharge Planning Last Done: 01/06/20 09:44
--- NOTE | 2020-01-08 10:37 | Cardiology Consultation ---
Date of Consultation January 08, 2020 Assessment & Plan (1) Atrial fibrillation with rapid ventricular response: (2) Alcohol abuse: (3) Alcohol withdrawal: (4) Alcohol withdrawal seizure: (5) Supratherapeutic INR: (6) Seizure: (7) Bradycardia: The pathophysiology and treatment options for atrial fibrillation were once again discussed with the patient. Her heart rates are a little on the lower side but have now stabilized with holding her metoprolol digoxin and I would recommend those medications not be restarted on discharge. In terms of her anticoagulation once again the risk of potentially fatal hemorrhage with falls were discussed with her along with the need for stroke prophylaxis. The patient states that she would prefer to avoid a stroke at all cost and she would like to remain on her anticoagulation. She plans on using a walker to help with her balance. She states that she accepts the risk of potential fatal bleeding with falls She should be bridged until her INR is once again therapeutic that may either be done inpatient with IV heparin or as an outpatient with twice daily Lovenox weight-based, which the patient has done before and is comfortable administering. My office will call to arrange follow-up in the next few weeks Okay to discharge home from a cardiac standpoint History of Present Illness Requesting Physician: paroxysmal atrial fibrillation with bradycardia Attending Physician: Bautista Major DO History of Present Illness Ms. Puente is a very pleasant 64-year-old woman who was admitted to [facility] 01/02/2020 after suffering an unwitnessed seizure. She also suffered a traumatic injury with subsequent left ear bleeding. She does suffer from alcoholism and reports that she falls frequently. Luckily she is never had any significant bleeding while on Coumadin. From a cardiac standpoint she denies any chest pain, shortness of breath, palpitations, lightheadedness, dizziness or syncope. After admission to telemetry she was noted to be bradycardic into the 30s and cardiology was consulted. She states that she is feeling well now. Allergies Allergy/AdvReac Type Severity Reaction Status Date / Time Sulfa (Sulfonamide Allergy Mild RASHES Verified 01/02/20 21:21 Antibiotics) morphine Allergy Rash Verified 01/02/20 21:21 trimethoprim Allergy Rash Verified 01/02/20 21:22 Home Medications Home Medications Medication Instructions Recorded Confirmed Type warfarin 2.5 mg PO MOWEFR@1600 03/15/18 01/02/20 History acetaminophen [Mapap 650 mg PO Q8H PRN #30 tab 11/28/18 01/02/20 Rx (acetaminophen)] Spiriva with HandiHaler 1 cap INHALATION DAILY 01/02/20 01/02/20 History albuterol sulfate 2 puff INHALATION Q4 PRN 01/02/20 01/02/20 History citalopram [Celexa] 20 mg PO DAILY 01/02/20 01/02/20 History folic acid 0.4 mg PO DAILY 01/02/20 01/02/20 History thiamine HCl (vitamin B1) [Vitamin 100 mg PO DAILY 01/02/20 01/02/20 History B-1] warfarin [Coumadin] 5 mg PO SUTUTHSA@1600 01/02/20 01/02/20 History ciprofloxacin-dexamethasone 4 drp OTL BID #7.5 ml 01/08/20 Rx [Ciprodex] enoxaparin [Lovenox] 60 mg SUBCUT Q12H #6 ml 01/08/20 Rx sertraline 75 mg PO QAM #60 tab 01/08/20 Rx Patient History Medical History Afib Alcohol withdrawal seizure Anemia Atrial fibrillation Cancer LEFT BREAST (CHEMO AND RADIATION) Chronic obstructive pulmonary disease Dehydration Hypertension Hypocalcemia Hypokalemia Hypomagnesemia Hyponatremia chronically low. Left ventricular enlargement BEING MONITORED BY ASHLY DUMONT Liver enzyme elevation Migraine Supratherapeutic INR Tobacco use disorder Surgical History History of section X1 History of colonoscopy History of left cataract extraction History of partial mastectomy LEFT History of tooth extraction Hx of shoulder surgery RT SHOULDER (S/P FX) Family History Other Cancer Heart disease Social History Smoking Status: Current every day smoker Tobacco Type: Cigarettes Cigarettes Per Day: 10; Second Hand Exposure: Yes; Hx Alcohol Use: Yes Alcohol type: beer Hx Substance Use: No Preferred Language: Maori Communication Ability: Effective Director Airport Required: No Beliefs That Will Affect Care: None marital status: Current Living Situation: Spouse How many Children do You have: 3 Feels Safe at Home: Yes Review of Systems Review of Systems: All systems reviewed & are unremarkable except as noted in HPI & below Physical Exam Physical Exam: General: Awake, alert and oriented x 3. No acute distress. HEENT: Normocephalic, atraumatic. Pupils equal, round and reactive to light and accommodation. Extraocular muscles are intact. Anicteric sclera. Moist mucous membranes. Neck: No JVD. No bruit. Cardiovascular: irregularly irregular, unable to appreciate murmur, rub or gallop. Pulmonary: Clear to auscultation bilaterally. No rales, rhonchi, or wheezing. Abdomen: Bowel sounds x 4, soft. No rebound, guarding or tenderness. No organomegaly. Extremities: No clubbing, cyanosis or edema. +2 pedal pulses bilaterally. Skin: Warm and dry. Results & Data ([facility]) Vital Signs (Past 12 Hours) Vital Signs Temp Pulse Pulse Resp BP Pulse Ox 01/08/20 10:15 36.7 C 72 16 135/65 95 01/08/20 09:00 71 01/08/20 07:10 36.7 C 72 16 135/65 95 01/08/20 04:08 36.6 C 119 H 20 131/71 93 01/07/20 23:51 37.3 C 79 18 153/71 H 94 01/07/20 23:15 69 (1) Alcohol withdrawal seizure Complication of substance-induced condition: uncomplicated Qualified Code(s): F10.230 - Alcohol dependence with withdrawal, uncomplicated
[2020-01-08] MEDS ORDERED: ENOXAPARIN 1 MG/KG SC SCH (11:30)
[2020-01-08] MEDS ORDERED: ENOXAPARIN INJ 60 MG/0.6 ML SYR SQ SCH (11:45)
--- NOTE | 2020-01-08 12:35 | Electrocardiogram Report ---
Test Reason : Blood Pressure : / mmHG Vent. Rate : 071 BPM Atrial Rate : 119 BPM P-R Int : 000 ms QRS Dur : 080 ms QT Int : 412 ms P-R-T Axes : 000 032 012 degrees QTc Int : 447 ms Atrial fibrillation Abnormal ECG When compared with ECG of 06-JAN-2020 11:33, QT has lengthened Confirmed by Isauro Ayala ([id number]) on 01/08/2020 12:35:16 PM Referred By: REFERRED SELF Confirmed By:Isauro Ayala
[2020-01-08] MEDS: WARFARIN SOD 10 MG TAB PO SCH (15:44)
== END 2020-01-08 16:14 | DRG 101 ==
LOC: ED 18:40 → SUATTDRO 21:59 → 2W 21:59

== ENCOUNTER 2022-08-09 11:21 | Inpatient (IN) ==
[2022-08-09] MEDS ORDERED: SODIUM CHLORIDE 0.9% 500 ML IV STA (11:31)
[2022-08-09] MEDS ORDERED: LORazepam 2 MG/1 ML VIAL IV STA ×2 (11:42→15:25)
[2022-08-09] MEDS ORDERED: METOPROLOL TARTRATE 1 MG/ML VIAL IV STA ×2 (11:42→13:49)
--- NOTE | 2022-08-09 11:51 | Emergency Department Note ---
Impression & Plan Atrial fibrillation with rapid ventricular response, Hypertension, Hypomagnesemia, Supratherapeutic INR ED Provider Note INFORMANT: Patient and ED PROVIDER(S): Jose Maria Siegel MD CHIEF COMPLAINT: Hypertension PLAN: Disposition: Admitted Condition: Good Outpatient prescription management: none Referral: None MEDICAL DECISION MAKING: Patient presented because of hypertension. She also noted palpitations and headache. Patient was very tremulous. ECG showed rapid atrial fibrillation. An IV established. Patient was given 2.5 mg of IV Lopressor. Patient was also given a dose of IV Ativan. She noted moderate alcohol use and has not drank in 1 week. On reassessment the patient was less tremulous, anxious, and her tachycardia had improved significantly. Blood pressure was also improved. Blood work was obtained. CBC was unremarkable. Chemistry panel was negative. Patient's magnesium was low. IV magnesium given. Patient was found to have a supratherapeutic INR, greater than 8 and was given oral vitamin K. He has no active bleeding at this time. Patient did require second dose of IV metoprolol. Given the constellation of findings patient will require further management in the hospital. [facility]ation [facility] with the [facility]. Patient was evaluated in the ER admitted for further management. After review of the information above and other included data, I feel the patient requires admission. Discussed with it security manager. Triage Nursing notes reviewed and agree them. Vital Signs: reviewed and remarkable for tachycardia Prior /Outside records reviewed: none Differential diagnosis: Benign hypertension, hypertensive emergency, cardiovascular pathology, toxicologic, pheochromocytoma, electrolyte abnormality, renal disease, endorgan damage, as well as other pathologies. Diagnostics, as interpreted by me: ECG: Twelve-lead ECG reveals atrial fibrillation with rapid ventricular response at 135 bpm. Anterior Q waves present. No ST elevation present. Cardiac Monitoring: Cardiac monitoring ordered by me: The patient was placed on continuous cardiac monitoring and observed. It revealed atrial fibrillation at 123 beats per minute without ectopy or evidence of dysrhythmia. Medical decision rules: none Imaging studies: HPI: The patient is a 67 year old female who presents to the Emergency Room with complaints of hypertension. This started to worsen today and is been fluctuating for a few weeks. The patient also notes the following associated symptoms, tremor, nausea, headache, mild shortness of breath. The patient has been using metoprolol for relieving factors. Current pain is rated as 9/10. Pt denies LOC, fevers, chills, diaphoresis, visual changes, neck pain, chest pain, vomiting, abdominal pain, back pain, melena, hematochezia, urinary symptoms, numbness, weakness, lymphadenopathy, rash, or other complaints. PAST MEDICAL HISTORY: See Below, hypertension PAST SURGICAL HISTORY: See Below, SOCIAL HISTORY: See Below, , smoker, drinks alcohol on a regular basis but has not for 1 week. HOME MEDICATIONS: See Below ALLERGIES: See Below VITALS: See Below PHYSICAL EXAMINATION: GENERAL: Awake, alert, anxious-appearing, in mild distress HENT: Normocephalic, atraumatic. Oropharynx unremarkable. EYES: Normal conjunctiva. Sclera non-icteric. NECK: Inspection normal. Non-tender. Supple. No nuchal rigidity. FROM. No masses. RESPIRATORY: Clear to auscultation. No wheezes. No rales. Normal respiratory ef fort. CARDIAC: Very tachycardic rate. Irregular rhythm. No murmurs. No rubs. Extremities warm and well perfused. Pulses equal. No JVD. GI: Soft, non-distended. No tenderness to palpation. No rebound or guarding. No masses. RECTAL: Deferred. MUSCULOSKELETAL: Atraumatic. Chest examination reveals no tenderness. The back is symmetrical on inspection without obvious abnormality. There is no CVA ten derness to palpation. No joint edema. LOWER EXTREMITIES: Calves are equal size bilaterally and non-tender. No edema. Chronic venous discoloration. NEURO: Normal sensorium. No sensory or motor deficits noted. SKIN: No rash or jaundice noted. CRITICAL CARE: I have personally spent greater than 30 minutes of critical care time in the direct management of this patient. This includes bedside care, interpretation of diagnostic studies, and testing, discussion with consultants, patient, and family members, and other required patient management activities. These minutes are in excess of all separately billable procedures. Past Med/Surg History Medical History (Updated 08/09/22 @ 19:53 by Jose Maria Siegel MD) Afib Alcohol withdrawal Alcohol withdrawal seizure Anemia Atrial fibrillation Bleeding from left ear Cancer LEFT BREAST (CHEMO AND RADIATION) Chronic diastolic (congestive) heart failure Chronic obstructive pulmonary disease Dehydration Hypertension Hypocalcemia Hypokalemia Hypomagnesemia Hyponatremia chronically low. Left ventricular enlargement BEING MONITORED BY ASHLY DUMONT Liver enzyme elevation Migraine Seizure Supratherapeutic INR Supratherapeutic INR Tobacco use disorder Surgical History History of section X1 History of colonoscopy History of left cataract extraction History of partial mastectomy LEFT History of tooth extraction Hx of shoulder surgery RT SHOULDER (S/P FX) Family History Other Cancer Heart disease Social History (Updated 08/09/22 @ 15:02 by Virgie Hunt PA-C) Smoking Status: Current every day smoker Tobacco Type: Cigarettes Cigarettes Per Day: 10; Second Hand Exposure: Yes; Do You Dip or Chew Tobacco: No; Tobacco Cessation Education Requested by Patient: No Hx Alcohol Use: Yes Alcohol type: beer Alcohol Intake Frequency: 4 or More x p er/Week Hx Substance Use: No Preferred Language: Ecuadorean Communication Ability: Effective 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 Beliefs That Will Affect Care: None marital status: Current Living Situation: Spouse How many Children do You have: 3 Other Information That Helps Us Care for You: No Feels Safe at Home: Yes Safety Concerns: Feels Safe At This Time Assistive Devices: Cane, Glasses and Walker Allergies Allergies Allergy/AdvReac Type Severity Reaction Status Date / Time Sulfa (Sulfonamide Allergy Mild RASHES Verified 01/02/20 21:21 Antibiotics) morphine Allergy Rash Verified 01/02/20 21:21 trimethoprim Allergy Rash Verified 01/02/20 21:22 Home Meds Home Medications Medication Instructions Recorded Confirmed albuterol sulfate 90 mcg/actuation 2 puff inhalation Q4 PRN Shortness 01/02/20 08/09/22 aerosol inhaler Of Breath Or Wheezing folic acid 400 mcg tablet 0.4 mg PO DAILY 01/02/20 08/09/22 thiamine HCl (vitamin B1) 100 mg 100 mg PO DAILY 01/02/20 08/09/22 tablet (Vitamin B-1) ammonium lactate 12 % lotion 1 applic topical DAILY 08/09/22 08/09/22 furosemide 20 mg tablet 20 mg PO DAILY 08/09/22 08/09/22 magnesium 200 mg tablet 100 mg PO DAILY 08/09/22 08/09/22 metoprolol succinate 50 mg 50 mg PO DAILY 08/09/22 08/09/22 tablet,extended release 24 hr rosuvastatin 10 mg tablet 10 mg PO DAILY 08/09/22 08/09/22 warfarin 5 mg tablet 10 mg PO SUTUWETHFRSA@1600 08/09/22 08/09/22 warfarin 5 mg tablet 15 mg PO MO@1600 08/09/22 08/09/22 Previous Rx's Medication Instructions Recorded acetaminophen 325 mg tablet (Mapap 650 mg PO Q8H PRN pain #30 tabs 11/28/18 (acetaminophen)) Results & Data (ED) Vital Signs Vital Signs - 24 hr 08/09/22 11:24 08/09/22 11:38 08/09/22 11:36 Temperature 36.4 C L Temperature Source Temporal Artery Scan Pulse Rate 145 H 136 H 152 H Pulse Rate from SpO2 Sensor 139 H Respiratory Rate 18 26 H Respiratory Effort / Characteristics Non-Labored Spontaneous Respiratory Depth Normal Blood Pressure 143/98 H Blood Pressure Mean 113 Blood Pressure Position Sitting Pulse Oximetry 97 96 Oxygen Delivery Method Room Air Sepsis Recent Fever Within 48 Hours No Sepsis New/Unexplained Change in Mental Status N/A Sepsis Action Taken by Nursing No Action Required 08/09/22 11:40 08/09/22 11:42 08/09/22 11:42 Temperature Temperature Source Pulse Rate 145 H 131 H Pulse Rate from SpO2 Sensor 150 H 151 H Respiratory Rate 30 H 24 Respiratory Effort / Characteristics Respiratory Depth Blood Pressure 154/97 H Blood Pressure Mean 116 Blood Pressure Position Pulse Oximetry 94 94 Oxygen Delivery Method Sepsis Recent Fever Within 48 Hours Sepsis New/Unexplained Change in Mental Status Sepsis Action Taken by Nursing 08/09/22 11:50 08/09/22 11:50 08/09/22 11:55 Temperature Temperature Source Pulse Rate 126 H 115 H Pulse Rate from SpO2 Sensor 126 H 104 H Respiratory Rate 35 H 29 H Respiratory Effort / Characteristics Respiratory Depth Blood Pressure 170/91 H Blood Pressure Mean 117 Blood Pressure Position Pulse Oximetry 95 95 Oxygen Delivery Method Sepsis Recent Fever Within 48 Hours Sepsis New/Unexplained Change in Mental Status Sepsis Action Taken by Nursing 08/09/22 11:55 08/09/22 12:00 08/09/22 12:00 Temperature Temperature Source Pulse Rate 112 H Pulse Rate from SpO2 Sensor 110 H Respiratory Rate 30 H Respiratory Effort / Characteristics Respiratory Depth Blood Pressure 131/96 143/89 H Blood Pressure Mean 107 107 Blood Pressure Position Pulse Oximetry 96 Oxygen Delivery Method Sepsis Recent Fever Within 48 Hours Sepsis New/Unexplained Change in Mental Status Sepsis Action Taken by Nursing 08/09/22 12:05 08/09/22 12:05 08/09/22 12:10 Temperature Temperature Source Pulse Rate 90 Pulse Rate from SpO2 Sensor 90 Respiratory Rate 23 Respiratory Effort / Characteristics Respiratory Depth Blood Pressure 136/78 138/91 Blood Pressure Mean 97 106 Blood Pressure Position Pulse Oximetry 92 Oxygen Delivery Method Sepsis Recent Fever Within 48 Hours Sepsis New/Unexplained Change in Mental Status Sepsis Action Taken by Nursing 08/09/22 12:10 08/09/22 12:15 08/09/22 12:15 Temperature Temperature Source Pulse Rate 94 H 95 H Pulse Rate from SpO2 Sensor 99 H 94 H Respiratory Rate 36 H 33 H Respiratory Effort / Characteristics Respiratory Depth Blood Pressure 138/77 Blood Pressure Mean 97 Blood Pressure Position Pulse Oximetry 92 92 Oxygen Delivery Method Sepsis Recent Fever Within 48 Hours Sepsis New/Unexplained Change in Mental Status Sepsis Action Taken by Nursing 08/09/22 12:20 08/09/22 12:20 08/09/22 12:25 Temperature Temperature Source Pulse Rate 91 H 93 H Pulse Rate from SpO2 Sensor 85 92 H Respiratory Rate 21 31 H Respiratory Effort / Characteristics Respiratory Depth Blood Pressure 136/89 Blood Pressure Mean 104 Blood Pressure Position Pulse Oximetry 92 91 Oxygen Delivery Method Sepsis Recent Fever Within 48 Hours Sepsis New/Unexplained Change in Mental Status Sepsis Action Taken by Nursing 08/09/22 12:25 08/09/22 12:30 08/09/22 12:30 Temperature Temperature Source Pulse Rate 90 Pulse Rate from SpO2 Sensor 91 H Respiratory Rate 25 H Respiratory Effort / Characteristics Respiratory Depth Blood Pressure 140/79 129/77 Blood Pressure Mean 99 94 Blood Pressure Position Pulse Oximetry 91 Oxygen Delivery Method Sepsis Recent Fever Within 48 Hours Sepsis New/Unexplained Change in Mental Status Sepsis Action Taken by Nursing 08/09/22 13:00 08/09/22 13:01 08/09/22 13:01 Temperature Temperature Source Pulse Rate 117 H 101 H Pulse Rate from SpO2 Sensor 98 H 109 H Respiratory Rate 37 H 18 Respiratory Effort / Characteristics Respiratory Depth Blood Pressure 135/66 Blood Pressure Mean 89 Blood Pressure Position Pulse Oximetry 92 90 Oxygen Delivery Method Sepsis Recent Fever Within 48 Hours Sepsis New/Unexplained Change in Mental Status Sepsis Action Taken by Nursing Laboratory Data 08/09/22 11:42 08/09/22 11:42 Lab Results 08/09/22 08/09/22 08/09/22 Range/Units 11:42 11:42 11:42 WBC 7.05 (4.8-10.8) K/ul RBC 4.81 (4.20-5.40) M/uL Hgb 16.2 H (12.0-16.0) g/dl Hct 45.0 (37.0-47.0) % MCV 93.6 (80.0-100.0) fL MCH 33.7 (25.0-34.0) pg MCHC 36.0 (32.0-36.0) g/dL RDW Std Deviation 44.7 (36.4-46.3) fL RDW Coeff of Saw 13.1 (11.5-14.5) % Plt Count 97 L (130-400) K/uL MPV 10.7 (9.4-12.4) fL Immature Gran % (Auto) 0.3 % Neut % (Auto) 61.4 % Lymph % (Auto) 29.2 % Mcmullen % (Auto) 8.1 % Eos % (Auto) 0.1 % Baso % (Auto) 0.9 % Neut # (Auto) 4.33 (1.40-6.50) K/uL Lymph # (Auto) 2.06 (1.2-3.4) K/uL Mcmullen # (Auto) 0.57 (0.11-0.59) K/uL Eos # (Auto) 0.01 (0-0.50) K/uL Baso # (Auto) 0.06 (0-0.2) K/uL Immature Gran # (Auto) 0.02 (0.01-0.20) K/uL Platelet Estimate Decreased L (Normal) Tear Drop Cells 1+ Echinocytes 1+ PT (9.0-12.0) Seconds INR (0.9-1.1) Sodium 131 L (136-145) mmol/L Potassium 3.8 (3.5-5.1) mmol/L Chloride 95 L (98-107) mmol/L Carbon Dioxide 20 L (21-32) mmol/L Anion Gap 16 H (3-11) BUN 3 L (6-23) mg/dl Creatinine 0.40 L (0.6-1.2) mg/dl Est Cr Clr Drug Dosing 105.0 ml/min Est GFR ( Amer) 123.2 ml/min Est GFR (Non-Af Amer) 106.3 ml/min BUN/Creatinine Ratio 7.5 L (10-20) Glucose 141 H (70-99(Fasting)) mg/dl Calcium 9.4 (8.5-10.1) mg/dl Magnesium 1.2 L (1.7-2.4) mg/dl Total Bilirubin 0.8 (0.2-1.0) mg/dl AST 71 H (13-39) U/L ALT 38 (7-52) U/L Alkaline Phosphatase 114 H (34-104) U/L Troponin I High Sens 12.3 (0-14) pg/ml Total Protein 8.1 (6.0-8.3) gm/dl Albumin 4.4 (3.4-5.0) gm/dl Globulin 3.7 (2.5-4.0) gm/dl Albumin/Globulin Ratio 1.2 (0.9-2) TSH 4.865 H (0.300-4.500) uIu/ml Free T4 0.70 (0.61-1.60) ng/dl SARS-CoV-2, RNA, NAAT (NEGATIVE) 08/09/22 08/09/22 Range/Units 11:45 11:45 WBC (4.8-10.8) K/ul RBC (4.20-5.40) M/uL Hgb (12.0-16.0) g/dl Hct (37.0-47.0) % MCV (80.0-100.0) fL MCH (25.0-34.0) pg MCHC (32.0-36.0) g/dL RDW Std Deviation (36.4-46.3) fL RDW Coeff of Saw (11.5-14.5) % Plt Count (130-400) K/uL MPV (9.4-12.4) fL Immature Gran % (Auto) % Neut % (Auto) % Lymph % (Auto) % Mcmullen % (Auto) % Eos % (Auto) % Baso % (Auto) % Neut # (Auto) (1.40-6.50) K/uL Lymph # (Auto) (1.2-3.4) K/uL Mcmullen # (Auto) (0.11-0.59) K/uL Eos # (Auto) (0-0.50) K/uL Baso # (Auto) (0-0.2) K/uL Immature Gran # (Auto) (0.01-0.20) K/uL Platelet Estimate (Normal) Tear Drop Cells Echinocytes PT 81.9 H (9.0-12.0) Seconds INR 8.7 H* (0.9-1.1) Sodium (136-145) mmol/L Potassium (3.5-5.1) mmol/L Chloride (98-107) mmol/L Carbon Dioxide (21-32) mmol/L Anion Gap (3-11) BUN (6-23) mg/dl Creatinine (0.6-1.2) mg/dl Est Cr Clr Drug Dosing ml/min Est GFR ( Amer) ml/min Est GFR (Non-Af Amer) ml/min BUN/Creatinine Ratio (10-20) Glucose (70-99(Fasting)) mg/dl Calcium (8.5-10.1) mg/dl Magnesium (1.7-2.4) mg/dl Total Bilirubin (0.2-1.0) mg/dl AST (13-39) U/L ALT (7-52) U/L Alkaline Phosphatase (34-104) U/L Troponin I High Sens (0-14) pg/ml Total Protein (6.0-8.3) gm/dl Albumin (3.4-5.0) gm/dl Globulin (2.5-4.0) gm/dl Albumin/Globulin Ratio (0.9-2) TSH (0.300-4.500) uIu/ml Free T4 (0.61-1.60) ng/dl SARS-CoV-2, RNA, NAAT NEGATIVE (NEGATIVE) Administered Medications Magnesium Sulfate/Dextrose (Magnesium Sulfate / D5w) 1 gm in 100 mls @ 50 mls/hr IV Q2H SARA Stop: 08/09/22 20:44 Last Admin: 08/09/22 18:01 Dose: 50 mls/hr Documented By: EZ Lorazepam (Lorazepam 2 Mg/1 Ml Vial) 1 mg IV UD PRN; Protocol PRN Reason: EtOH Withdrawal AWSS Score 6+ Stop: 09/08/22 14:23 Last Admin: 08/09/22 17:05 Dose: 1 mg Documented By: KJL Discontinued Medications Gabapentin (Gabapentin 600 Mg Tab) 1,200 mg PO NOW ONE Stop: 08/09/22 14:25 Last Admin: 08/09/22 14:41 Dose: 1,200 mg Documented By: QGV Sodium Chloride (Nss) 500 mls @ 999 mls/hr IV .Q31M STA Stop: 08/09/22 12:01 Last Infusion: 08/09/22 13:45 Dose: 0 mls/hr Documented By: Admin: 08/09/22 12:02 Dose: 999 mls/hr Documented By: AM Magnesium Sulfate/Dextrose (Magnesium Sulfate / D5w) 1 gm in 100 mls @ 50 mls/hr IV ONE ONE Stop: 08/09/22 15:00 Last Infusion: 08/09/22 16:35 Dose: 0 mls/hr Documented By: Admin: 08/09/22 14:35 Dose: 50 mls/hr Documented By: QGV Multivitamins 10 ml/ Thiamine HCl 100 mg/ Folic Acid 1 mg/Sodium Chloride 1,011.2 mls @ 1,011.2 mls/hr IV .Q1H ONE Stop: 08/09/22 15:59 Last Infusion: 08/09/22 17:16 Dose: 0 mls/hr Documented By: Admin: 08/09/22 16:15 Dose: 999 mls/hr Documented By: EZ Lorazepam (Lorazepam 2 Mg/1 Ml Vial) 0.5 mg IV NOW STA Stop: 08/09/22 11:43 Last Admin: 08/09/22 11:47 Dose: 0.5 mg Documented By: AM Lorazepam (Lorazepam 2 Mg/1 Ml Vial) 1 mg IV NOW STA Stop: 08/09/22 15:26 Last Admin: 08/09/22 15:37 Dose: 1 mg Documented By: QGV Metoprolol Tartrate (Metoprolol Tartrate 1 Mg/Ml Vial) 2.5 mg IV NOW STA Stop: 08/09/22 11:43 Last Admin: 08/09/22 11:46 Dose: 2.5 mg Documented By: AM Metoprolol Tartrate (Metoprolol Tartrate 1 Mg/Ml Vial) 2.5 mg IV NOW STA Stop: 08/09/22 13:50 Last Admin: 08/09/22 14:33 Dose: 2.5 mg Documented By: QGV Phytonadione (Phytonadione 5 Mg Tab) 2.5 mg PO NOW STA Stop: 08/09/22 13:27 Last Admin: 08/09/22 14:35 Dose: 2.5 mg Documented By: QGV Discharge Plan Visit Data Chief Complaint: Hypertension Stated Complaint: BLOOD PRESSURE HIGH, REF BY DOC ED Provider: Jose Maria Siegel Discharge Problem: Atrial fibrillation with rapid ventricular response, Hypertension, Hypomagnesemia, Supratherapeutic INR Patient Disposition: Admitted As Inpatient Discharge Instructions Interventions: ED Discharge Assessment Last Done: 08/09/22 15:22
[2022-08-09 12:43] LABS: Albumin Globulin Ratio 1.2 (0.9-2); Albumin Level 4.4 gm/dl (3.4-5.0); BUN Creatinine Ratio 7.5 (10-20); Bilirubin,Total 0.8 mg/dl (0.2-1.0); Calcium 9.4 mg/dl (8.5-10.1); Est GFR (African American) 123.2 ml/min; Est GFR (Non-African American) 106.3 ml/min; Globulin 3.7 gm/dl (2.5-4.0); Magnesium 1.2 mg/dl (1.7-2.4); Potassium 3.8 mmol/L (3.5-5.1); Total Protein 8.1 gm/dl (6.0-8.3)
[2022-08-09 12:49] LABS: Troponin I High Sensitivity 12.3 pg/ml (0-14)
[2022-08-09 12:58] LABS: Thyroid Stimulating Hormone 4.865 uIu/ml (0.300-4.500)
[2022-08-09 13:00] LABS: Prothrombin Time 81.9 Seconds (9.0-12.0)
[2022-08-09] MEDS ORDERED: MAGNESIUM SULFATE / D5W 1 GM/100 ML BAG IV ONE (13:01)
[2022-08-09 13:12] LABS: Basophils # (auto) 0.06 K/uL (0-0.2); Basophils % (auto) 0.9 %; Echinocytes 1+; Eosinophils # (auto) 0.01 K/uL (0-0.50); Eosinophils % (auto) 0.1 %; Hemoglobin 16.2 g/dl (12.0-16.0); Immature Granulocytes # (auto) 0.02 K/uL (0.01-0.20); Immature Granulocytes % (auto) 0.3 %; Lymphocytes # (auto) 2.06 K/uL (1.2-3.4); Lymphocytes % (auto) 29.2 %; Mean Corpuscular Hemoglobin 33.7 pg (25.0-34.0); Mean Corpuscular Volume 93.6 fL (80.0-100.0); Mean Platelet Volume 10.7 fL (9.4-12.4); Monocytes # (auto) 0.57 K/uL (0.11-0.59); Monocytes % (auto) 8.1 %; Neutrophils # (auto) 4.33 K/uL (1.40-6.50); Neutrophils % (auto) 61.4 %; Platelet Count 97 K/uL (130-400); Platelet Estimate Decreased (Normal); RDW Coefficient of Variation 13.1 % (11.5-14.5); RDW Standard Deviation 44.7 fL (36.4-46.3); Red Blood Count 4.81 M/uL (4.20-5.40); Tear Drop Cells 1+; White Blood Count 7.05 K/ul (4.8-10.8)
[2022-08-09 13:20] LABS: INR 8.7 (0.9-1.1)
[2022-08-09] MEDS ORDERED: PHYTONADIONE 5 MG TAB PO STA (13:26)
--- NOTE | 2022-08-09 13:28 | History & Physical Report ---
Date of Service August 09, 2022 Assessment & Plan (1) Atrial fibrillation with rapid ventricular response: (2) Hypertension: (3) Hyponatremia: (4) Depression with anxiety: (5) Supratherapeutic INR: (6) PAD (peripheral artery disease): (7) Tobacco use disorder: (8) Chronic diastolic (congestive) heart failure: Plan: This is a 67-year-old female with PMH of chronic atrial fibrillation on anticoagulation, alcohol use disorder, ongoing tobacco use, chronic diastolic heart failure, hypertension, pulmonary hypertension, anxiety, depression, COPD, history of breast cancer and other medical problems listed below who presents with palpitations and elevated blood pressure this morning was found to have atrial fibrillation with RVR. Atrial fibrillation with RVR Symptomatic since this AM with palpitations, initial ECG with A fib with RVR at 145 bpm improved to 90 after 0.5mg Ativan in ED Etoh withdrawal, hypomagnesemia contributing to A fib with RVR - will correct both as discussed below Took 50mg Toprol this AM. Will monitor closely following additional ativan and increase Lopressor for better rate control as needed Echo from Mar 2021 with preserved EF 55-59%, moderate-severe MR, elevated pulm pressures 45-50 mmHg Will repeat echo, consider cardiology consult Hypomagnesemia Initial Mg 1.2 likely related to poor nutrition, replacing Only taking 100mg a daily (1/2 pill) due to swallowing issues. Consider changing formulation upon discharge to improve compliance Alcohol withdrawal Ongoing etoh abuse but patient trying to significantly reduce use/quit at home along with . Admits to seizure last month in setting of withdrawal, denies any recent falls AWSS protocol with gabapentin, IV ativan, banana bag, thiamine and folate in AM Supratherapeutic INR INR 8.7, no recent INR labwork in outpatient setting, ongoing poor nutrition and questionable compliance Received vit K in ED, no evidence of active bleeding on exam. Hold coumadin, monitor daily INR levels Have discussed safely of anticoagulation in the past given alcohol use and frequent falls but patient has elected to continue coumadin CT head and CXR ordered given INR, frequent falls and unreliable history HTN Related to etoh withdrawal; expect improvement with above protocol PAD Worsening foot pain L>R over past 6 months, using ammonia cream with some improvement Moderate PAD per MARGOTH 08/2021 Continue statin PCP just arranged for vascular follow up this summer Chronic diastolic heart failure H/o valvular disease, pulm HTN. Has not seem cardiology in clinic since last September. Was started on Lasix by Dr. Bravo last Fall Tobacco use disorder COPD At respiratory baseline. Still smoking 1/2-1ppd. Recommended smoking cessation Depression with anxiety No longer taking SSRI, mood stable per patient DVT Ppx: holding coumadin while INR supratherapeutic Code status: FULL PCP: Karl Dispo: Admitting to PCU Patient seen in collaboration with Dr. Blackwell. Please see addendum. A total of 80 minutes were spent with greater than 50% of that time face to face with the patient, personally reviewing all current laboratories, imaging studies, past medication reconciliation, outpatient chart review, and discussion with specialists to collaborate care for the patient with attending and utilization of translation services. Please see attending documentation for corrections and/or additions. History of Present Illness Chief Complaint: Palpitations Primary Care Provider: Adrián Barajas DO This is a 67-year-old female with PMH of chronic atrial fibrillation on anticoagulation, alcohol use disorder, ongoing tobacco use, chronic diastolic heart failure, hypertension, pulmonary hypertension, anxiety, depression, COPD, history of breast cancer and other medical problems listed below who presents with palpitations and elevated blood pressure this morning. History obtained from patient, at bedside and review of primary care and cardiology notes. Patient noted systolic blood pressure of 190 as well as palpitations and tremulousness and called PCP, who directed her to ED for further evaluation. Patient and her with longstanding alcohol use and have been trying to decrease use gradually at home over the past month or so. Reports current use as 2 16 ounce cans of beer daily, but last drink was on Monday night and she is trying to stop use altogether. Denies any known falls or hallucinations. Last seizure was last month when they initially began to cut down on alcohol use. Does have history of DTs in the setting of alcohol withdrawal in the past. Denies any recent infection. No chest pain. No headache, lightheadedness, shortness of breath, nausea, vomiting abdominal pain, dysuria, diarrhea or constipation. Of note, mentions patient with declining short-term memory over the past 3 months. States that it is now common for her to ask him a question and then repeat the answer incorrectly a few minutes later. Does have PAD with ongoing foot pain L>R and is planning to see vascular again in a few months. Also suffers from peripheral neuropathy in setting of ongoing etoh abuse. Has been taking Toprol as scheduled and took prior to arrival. Last took coumadin yesterday evening. Allergies Allergy/AdvReac Type Severity Reaction Status Date / Time Sulfa (Sulfonamide Allergy Mild RASHES Verified 01/02/20 21:21 Antibiotics) morphine Allergy Rash Verified 01/02/20 21:21 trimethoprim Allergy Rash Verified 01/02/20 21:22 Home Medications Medication Instructions Recorded Confirmed Type acetaminophen 325 mg tablet (Mapap 650 mg PO Q8H PRN pain #30 tabs 11/28/18 08/09/22 Rx (acetaminophen)) albuterol sulfate 90 mcg/actuation 2 puff inhalation Q4 PRN Shortness 01/02/20 08/09/22 History aerosol inhaler Of Breath Or Wheezing folic acid 400 mcg tablet 0.4 mg PO DAILY 01/02/20 08/09/22 History thiamine HCl (vitamin B1) 100 mg 100 mg PO DAILY 01/02/20 08/09/22 History tablet (Vitamin B-1) ammonium lactate 12 % lotion 1 applic topical DAILY 08/09/22 08/09/22 History furosemide 20 mg tablet 20 mg PO DAILY 08/09/22 08/09/22 History magnesium 200 mg tablet 100 mg PO DAILY 08/09/22 08/09/22 History metoprolol succinate 50 mg 50 mg PO DAILY 08/09/22 08/09/22 History tablet,extended release 24 hr rosuvastatin 10 mg tablet 10 mg PO DAILY 08/09/22 08/09/22 History warfarin 5 mg tablet 10 mg PO SUTUWETHFRSA@1600 08/09/22 08/09/22 History warfarin 5 mg tablet 15 mg PO MO@1600 08/09/22 08/09/22 History Past Med/Surg History Medical History (Updated 08/09/22 @ 19:53 by Jose Maria Siegel MD) Afib Alcohol withdrawal Alcohol withdrawal seizure Anemia Atrial fibrillation Bleeding from left ear Cancer LEFT BREAST (CHEMO AND RADIATION) Chronic diastolic (congestive) heart failure Chronic obstructive pulmonary disease Dehydration Hypertension Hypocalcemia Hypokalemia Hypomagnesemia Hyponatremia chronically low. Left ventricular enlargement BEING MONITORED BY ASHLY DUMONT Liver enzyme elevation Migraine Seizure Supratherapeutic INR Supratherapeutic INR Tobacco use disorder Surgical History History of section X1 History of colonoscopy History of left cataract extraction History of partial mastectomy LEFT History of tooth extraction Hx of shoulder surgery RT SHOULDER (S/P FX) Family History Other Cancer Heart disease Social History (Updated 08/09/22 @ 15:02 by Virgie Hunt PA-C) Smoking Status: Current every day smoker Tobacco Type: Cigarettes Cigarettes Per Day: 10; Second Hand Exposure: Yes; Do You Dip or Chew Tobacco: No; Tobacco Cessation Education Requested by Patient: No Hx Alcohol Use: Yes Alcohol type: beer Alcohol Intake Frequency: 4 or More x per/Week Hx Substance Use: No Preferred Language: Turkmen Communication Ability: Effective Lens Shaper Grinder Required: No Beliefs That Will Affect Care: None marital status: Current Living Situation: Spouse How many Children do You have: 3 Other Information That Helps Us Care for You: No Feels Safe at Home: Yes Safety Concerns: Feels Safe At This Time Assistive Devices: Cane, Glasses and Walker Review of Systems Review of Systems: At least ten systems reviewed and negative except as noted in the HPI. Physical Exam Physical Exam: General Appearance: WD/WN, vitals as above, appears older than stated age, tremulous, anxious but conversing without issue Head: normocephalic, atraumatic Eyes: normal inspection, PERRL, conjunctivae normal, anicteric sclerae ENT: external ear and nose normal, dry mucous membranes of oropharynx Neck: normal visual inspection, trachea midline, no thyromegaly Respiratory: normal respiratory effort, lungs clear to auscultation, no wheeze, rales, rhonchi. No accessory muscle use Cardiovascular: irregular rate & rhythm, no murmur appreciated, no BLE edema. Vessels: no JVD Chest: normal inspection of chest Abdomen/GI: normal bowel sounds, soft, nontender, no hepatosplenomegaly Extremities/Musculoskeletal: no cyanosis or clubbing, extremities motor strength 5/5. + PT and DP pulses diminished in BLE, L>R. L foot with dusky coloration but warm, no wounds Neurologic: PERRL, EOMI, accommodation nl, no face palsy, no dysarthria, CN's II-XI intact bilaterally and moves all extremities Psychiatric: A+Ox3, flattened affect Skin: no rashes, normal color, warm/dry Results & Data Results & Data Vital Signs (Past 12 Hours) Vital Signs Temp Pulse Resp BP Pulse Ox O2 Del Method 08/09/22 12:25 140/79 08/09/22 12:25 93 H 31 H 91 08/09/22 12:20 91 H 21 92 08/09/22 12:20 136/89 08/09/22 12:15 138/77 08/09/22 12:15 95 H 33 H 92 08/09/22 12:10 94 H 36 H 92 08/09/22 12:10 138/91 08/09/22 12:05 136/78 08/09/22 12:05 90 23 92 08/09/22 12:00 112 H 30 H 96 08/09/22 12:00 143/89 H 08/09/22 11:55 131/96 08/09/22 11:55 115 H 29 H 95 08/09/22 11:50 126 H 35 H 95 08/09/22 11:50 170/91 H 08/09/22 11:42 154/97 H 08/09/22 11:42 131 H 24 94 08/09/22 11:40 145 H 30 H 94 08/09/22 11:36 152 H 26 H 96 08/09/22 11:38 136 H 08/09/22 11:24 36.4 C L 145 H 18 143/98 H 97 Room Air Laboratory Results Short CBC 08/09/22 Range/Units 11:42 WBC 7.05 (4.8-10.8) K/ul Hgb 16.2 H (12.0-16.0) g/dl Hct 45.0 (37.0-47.0) % Plt Count 97 L (130-400) K/uL BMP 08/09/22 11:42 Sodium 131 L Potassium 3.8 Chloride 95 L Carbon Dioxide 20 L BUN 3 L Creatinine 0.40 L Glucose 141 H Calcium 9.4 Liver Function 08/09/22 Range/Units 11:42 Total Bilirubin 0.8 (0.2-1.0) mg/dl AST 71 H (13-39) U/L ALT 38 (7-52) U/L Alkaline Phosphatase 114 H (34-104) U/L Albumin 4.4 (3.4-5.0) gm/dl ECG Additional Comments: ECG with A fib with RVR at 145 bpm Code Status & VTE Plan VTE Prophylaxis Plan VTE Prophylaxis will be ordered: Yes Supervising Physician Co-Signing Physician Notes I have seen and examined the patient and have discussed the case with the provider above. I agree with the assessment and plan as stated. 67 yo alcoholic female with chronic atrial fibrillation presents in alcohol withdrawal after trying to cut back at home. She is exhibiting tremulousness, and reports elevated blood pressure, palpitations and malaise and diaphoresis. She felt better with the Ativan given in the ER. We discussed withdrawal symptoms and she verbalized understanding this was likely contributing to her elevated BP and HR as well as her symptoms. We discussed the importance of considering inpatient rehab. On physical exam she was very shaky, tachycardic and WNWD. She was mentating clearly. Physical exam as otherwise mentioned above. Lab s/rads/EKG reviewed. 1. Atrial fibrillation with rapid ventricular response 2. Alcohol withdrawal 3. supratherapeutic INR 4. Hypomagnesemia 5. Hyponatremia Agree with plan to continue with gabapentin taper and PRN Ativan. She appears improved with a couple of doses of Ativan this afternoon. HR is improved and BP has normalized. She was put on a small amount of oxygen for some possible oversedation but is oxygenating well. Hold coumadin and replace lytes as above. Encourage inpatient alcohol rehab. DO Rishi
[2022-08-09 13:34] LABS: T4 Free Thyroxine 0.7 ng/dl (0.61-1.60)
[2022-08-09] MEDS ORDERED: LORazepam 2 MG/1 ML VIAL IV PRN ×2 (14:24)
[2022-08-09] MEDS ORDERED: Ativan IV Alcohol Withdrawal--Active Protocol IV PRN (14:24)
[2022-08-09] MEDS ORDERED: GABAPENTIN 1200MG ALCOHOL WITHDRAWAL LOAD PO STA (14:24)
[2022-08-09] MEDS ORDERED: GABAPENTIN 600 MG TAB PO ONE (14:24)
[2022-08-09] MEDS ORDERED: MULTI-VITAMIN INFUSION 10 ML, THIAMINE HCL 100 MG, FOLIC ACID 1 MG in SODIUM CHLORIDE 0... IV ONE (15:00)
--- NOTE | 2022-08-09 16:01 | CT Scan Report ---
CT head/brain wo con CLINICAL HISTORY: 67 years-old Female with supratherapeutic inr, AMS. Acutely altered mental status TECHNIQUE: Multiple axial CT images of the head were obtained without contrast. A dose lowering tech nique was utilized adhering to the principles of ALARA. CT DOSE: 537.48 mGy.cm COMPARISON: Head CT 01/02/2020 FINDINGS: No acute intracranial hemorrhage, midline shift, intracranial mass, hydrocephalus, territorial ischem ia or abnormal extra-axial collection. Involutional changes with chronic microvascular ischemic disea se. Motion degraded exam. Cerebral vascular calcifications. The calvarium is intact. Prior bilateral lens repair. The paranasal sinuses, mastoid air cells, and m iddle ear cavities are clear. IMPRESSION: No acute intracranial abnormality. ACT 112: Negative or not required by law. The above report was generated using voice recognition software. It may contain grammatical, syntax o r spelling errors. Electronically signed by: Rahul Lyle M.D. 08/09/2022 4:00 PM
--- NOTE | 2022-08-09 16:19 | XRay Report ---
SINGLE VIEW CHEST CLINICAL HISTORY: Change in mental status. FINDINGS: An AP, portable, upright chest radiograph is compared to study dated 11/23/2018 and correlate d with chest CT dated 03/27/2017. The heart is enlarged noting atherosclerotic calcification of the th oracic aorta. The pulmonary vasculature is noncongested. Emphysema and chronic interstitial thickenin g is similar to previous. Foci of parenchymal scarring are seen throughout both lungs. There is no ai rspace consolidation typical for pneumonia or large pleural effusion. No pneumothorax is seen. The sk eletal structures are osteopenic. There is chronic posttraumatic deformity and postoperative change s een in the right proximal humerus. There is also chronic posttraumatic deformity of the distal right clavicle. IMPRESSION: Cardiomegaly and emphysema with no acute cardiopulmonary abnormality identified. ACT 112: Negative or not required by law. Electronically signed by: Joseph Morel M.D. 08/09/2022 4:17 PM
[2022-08-09] MEDS ORDERED: POLYETHYLENE (MIRALAX) 17 GM PACK PO PRN (16:20)
[2022-08-09] MEDS ORDERED: ONDANSETRON INJ 2 MG/ML 2 ML VIAL IV PRN (16:20)
[2022-08-09 16:33] LABS: Amphetamines+Metham, Urine Neg (Neg); Barbiturates, Urine Neg (Neg); Benzodiazepine, Urine Neg (Neg); Cocaine, Urine Neg (Neg); MDMA (Ecstacy), Urine Neg (Neg); Methadone, Urine Neg (Neg); Opiate, Urine Neg (Neg); Phencyclidine, Urine Neg (Neg)
[2022-08-09] MEDS ORDERED: ALBUTEROL HFA 8 GM INHALER INH PRN (16:42)
[2022-08-09] MEDS ORDERED: PNEUMOCOCCAL POLYSACCHARIDES 25 MCG/0.5 ML VIAL/SYR IM ONE (16:54)
[2022-08-09] MEDS ORDERED: INFLUENZA VACCINE HIGH DOSE PF 65+ 0.7 ML SYR IM ONE (16:54)
[2022-08-09] MEDS: LORazepam 2 MG/1 ML VIAL IV PRN (17:05)
[2022-08-09] MEDS: MAGNESIUM SULFATE / D5W 1 GM/100 ML BAG IV SCH ×3 (18:01→22:08)
[2022-08-09] MEDS: GABAPENTIN 600 MG TAB PO SCH (20:57)
[2022-08-10] MEDS: LORazepam 2 MG/1 ML VIAL IV PRN ×2 (03:33→14:27)
[2022-08-10] MEDS: GABAPENTIN 600 MG TAB PO SCH ×3 (05:35→21:05)
[2022-08-10 05:51] LABS: Hematocrit (blood only) 38.8 % (37.0-47.0); Hemoglobin 13.8 g/dl (12.0-16.0); Mean Corpuscular Hemoglobin 33.4 pg (25.0-34.0); Mean Corpuscular Hgb Conc 35.6 g/dL (32.0-36.0); Mean Corpuscular Volume 93.9 fL (80.0-100.0); Mean Platelet Volume 10.9 fL (9.4-12.4); Platelet Count 75 K/uL (130-400); RDW Coefficient of Variation 12.9 % (11.5-14.5); RDW Standard Deviation 44.5 fL (36.4-46.3); Red Blood Count 4.13 M/uL (4.20-5.40); White Blood Count 7.34 K/ul (4.8-10.8)
[2022-08-10 05:58] LABS: BUN Creatinine Ratio 11.4 (10-20); Calcium 8.2 mg/dl (8.5-10.1); Est GFR (African American) 128.7 ml/min; Magnesium 1.7 mg/dl (1.7-2.4); Potassium 3.4 mmol/L (3.5-5.1)
[2022-08-10] MEDS ORDERED: POTASSIUM CHLORIDE CRTAB 20 MEQ TABCR PO STA (06:11)
[2022-08-10] MEDS ORDERED: MAGNESIUM SULFATE / D5W 1 GM/100 ML BAG IV ONE ×2 (06:11→08:01)
[2022-08-10 06:13] LABS: INR 3.4 (0.9-1.1); Prothrombin Time 33.6 Seconds (9.0-12.0)
[2022-08-10] MEDS: AMMONIUM LACTATE 12% LOTION 225 GM BTL EXT SCH (07:32)
[2022-08-10] MEDS: MAGNESIUM OXIDE 400 MG TAB PO SCH (07:33)
[2022-08-10] MEDS: ROSUVASTATIN CALCIUM 10 MG TAB PO SCH (07:34)
[2022-08-10] MEDS: FOLIC ACID 400 MCG TAB PO SCH (07:34)
[2022-08-10] MEDS: THIAMINE HCL 100 MG TAB PO SCH (07:34)
[2022-08-10] MEDS ORDERED: POTASSIUM CHLORIDE CRTAB 20 MEQ TABCR PO ONE (08:01)
[2022-08-10] MEDS ORDERED: METOPROLOL SUCC 50MG EXT REL TAB PO SCH (09:00)
--- NOTE | 2022-08-10 11:58 | Electrocardiogram Report ---
Test Reason : Blood Pressure : / mmHG Vent. Rate : 135 BPM Atrial Rate : 357 BPM P-R Int : 000 ms QRS Dur : 080 ms QT Int : 248 ms P-R-T Axes : 000 -14 103 degrees QTc Int : 372 ms Poor data quality, interpretation may be adversely affected Atrial fibrillation with rapid ventricular response Minimal voltage criteria for LVH, may be normal variant Anterior infarct , age undetermined Abnormal ECG When compared with ECG of 08-JAN-2020 09:13, Vent. rate has increased BY 64 BPM Nonspecific T wave abnormality no longer evident in Inferior leads Nonspecific T wave abnormality now evident in Lateral leads Confirmed by Frank Hernandez ([id number]) on 08/10/2022 11:58:41 AM Referred By: REFERRED SELF Confirmed By:Adam Hernandez
--- NOTE | 2022-08-10 12:07 | Electrocardiogram Report ---
Test Reason : Blood Pressure : / mmHG Vent. Rate : 103 BPM Atrial Rate : 101 BPM P-R Int : 000 ms QRS Dur : 084 ms QT Int : 338 ms P-R-T Axes : 000 -21 134 degrees QTc Int : 442 ms Atrial fibrillation with rapid ventricular response Anteroseptal infarct (cited on or before 09-AUG-2022) T wave abnormality, consider lateral ischemia Abnormal ECG Confirmed by Frank Hernandez ([id number]) on 08/10/2022 12:07:12 PM Referred By: REFERRED SELF Confirmed By:Adam Hernandez
[2022-08-10] MEDS: NICOTINE 21 MG/24 HR TDSY TD SCH (14:26)
--- NOTE | 2022-08-10 15:06 | Hospitalist Progress Note ---
Date of Service August 10, 2022 Assessment & Plan (1) Atrial fibrillation with rapid ventricular response: (2) Hypertension: (3) Hyponatremia: (4) Depression with anxiety: (5) Supratherapeutic INR: (6) PAD (peripheral artery disease): (7) Tobacco use disorder: (8) Chronic diastolic (congestive) heart failure: Plan: Patient is a 67 yr female with H/O Chronic atrial fibrillation on anticoagulation, alcohol use disorder, ongoing tobacco use, chronic diastolic heart failure, hypertension, pulmonary hypertension, anxiety, depression, COPD, history of breast cancer and other medical problems listed below who presents with palpitations and elevated blood pressure this morning was found to have atrial fibrillation with RVR. 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 to quit alcohol use Supratherapeutic INR INR 8.7 Received vit K No acute bleeding issues Prior provider discussed safely of anticoagulation in the past given alcohol use and frequent falls but patient has elected to continue Coumadin CT head showed no acute intracranial abnormality INR 8.7>>3.4 HTN Continue Metoprolol BP stable PAD Worsening foot pain L>R over past 6 months, using ammonium lactate cream with some improvement Moderate PAD per MARGOTH 08/2021 Continue statin Has follow up with vascular surgery arranged by PCP Chronic diastolic heart failure H/o valvular disease, pulm HTN No signs of volume overload Resume lasix as able l Tobacco use disorder COPD Recommended smoking cessation Nicotine patch Depression with anxiety Not on meds mood stable DVT Px held Coumadin INR supratherapeutic Code status: FULL CODE Admission and Anticipated Discharge Date Admission Date: August 09, 2022 Subjective Patient is seen and examined at bedside States having headache, generalized weakness, intermittent palpitations Denies any chest pain, dyspnea, dizziness, nausea, vomiting No other complaints Review of Systems Review of Systems: All systems reviewed & are unremarkable except as noted in Subjective Physical Exam Physical Exam: Physical Exam: Vitals signs as noted above General Appearance:Moderately built, chronically appearing, no apparent distress Head: normocephalic, Atraumatic Eyes: normal inspection, EOMI Neck: supple, Trachea midline Respiratory/Chest: Normal breath sounds, CTA, No accessory muscle use Cardiovascular: Irregularly irregular, tachycardia, no murmur Abdomen/GI:Soft, Non tender, Bowel sounds present Extremities/Musculoskeletal:normal inspection, no edema Neurologic/Psych:AAOX3, grossly no focal neurological deficits Skin: normal color, warm Results & Data Results & Data Vital Signs (Past 12 Hours) Vital Signs Temp Pulse Pulse Resp BP BP Pulse Ox 08/10/22 09:32 08/10/22 08:00 08/10/22 07:24 131/77 08/10/22 07:24 36.5 C 105 H 18 96 08/10/22 05:37 36.6 C 118 H 20 140/88 97 08/10/22 03:29 36.8 C 117 H 22 136/100 98 O2 Del Method O2 Flow Rate 08/10/22 09:32 Nasal Cannula 2 08/10/22 08:00 Nasal Cannula 2 08/10/22 07:24 08/10/22 07:24 Nasal Cannula 2 08/10/22 05:37 Nasal Cannula 2 08/10/22 03:29 Nasal Cannula 2 Laboratory Results Short CBC 08/10/22 Range/Units 05:13 WBC 7.34 (4.8-10.8) K/ul Hgb 13.8 (12.0-16.0) g/dl Hct 38.8 (37.0-47.0) % Plt Count 75 L (130-400) K/uL BMP 08/10/22 05:13 Sodium 128 L Potassium 3.4 L Chloride 96 L Carbon Dioxide 23 BUN 4 L Creatinine 0.35 L Glucose 123 H Calcium 8.2 L
[2022-08-11] MEDS: LORazepam 2 MG/1 ML VIAL IV PRN ×5 (00:05→15:35)
[2022-08-11] MEDS ORDERED: chlordiazePOXIDE ALCOHOL WITHDRAWL 25MG PO STA (03:29)
[2022-08-11] MEDS ORDERED: METOPROLOL SUCC 50MG EXT REL TAB PO SCH (03:35)
[2022-08-11] MEDS: MAGNESIUM SULFATE / D5W 1 GM/100 ML BAG IV SCH ×2 (03:45→05:24)
[2022-08-11] MEDS: chlordiazePOXIDE HCl 25 MG CAP PO SCH ×4 (03:53→21:31)
[2022-08-11] MEDS ORDERED: NSS + 20MEQ KCL 20 MEQ/1,000 ML BAG IV ONE (05:08)
[2022-08-11 06:26] LABS: Hematocrit (blood only) 35.3 % (37.0-47.0); Hemoglobin 12.3 g/dl (12.0-16.0); Mean Corpuscular Hemoglobin 33.3 pg (25.0-34.0); Mean Corpuscular Hgb Conc 34.8 g/dL (32.0-36.0); Mean Corpuscular Volume 95.7 fL (80.0-100.0); Mean Platelet Volume 11.3 fL (9.4-12.4); Platelet Count 61 K/uL (130-400); RDW Coefficient of Variation 12.8 % (11.5-14.5); RDW Standard Deviation 44.8 fL (36.4-46.3); Red Blood Count 3.69 M/uL (4.20-5.40); White Blood Count 7.32 K/ul (4.8-10.8)
[2022-08-11 06:40] LABS: Calcium 8.6 mg/dl (8.6-10.3); Est GFR (African American) 123.2 ml/min; Est GFR (Non-African American) 106.3 ml/min; Magnesium 1.9 mg/dl (1.7-2.4); Potassium 3.6 mmol/L (3.5-5.1)
[2022-08-11 06:45] LABS: INR 1.6 (0.9-1.1); Prothrombin Time 16.3 Seconds (9.0-12.0)
--- NOTE | 2022-08-11 06:47 | Communication Note ---
Date of Service: August 11, 2022 Patient aggressive despite multiple doses of IV Ativan. Librium in place of gabapentin for now.
[2022-08-11 07:02] LABS: Estimated Average Glucose 111 mg/dl; Hemoglobin A1C 5.5 % (4.5-5.6)
[2022-08-11] MEDS: NICOTINE 21 MG/24 HR TDSY TD SCH (07:27)
[2022-08-11] MEDS: AMMONIUM LACTATE 12% LOTION 225 GM BTL EXT SCH (07:27)
[2022-08-11] MEDS: ROSUVASTATIN CALCIUM 10 MG TAB PO SCH (07:28)
[2022-08-11] MEDS: FOLIC ACID 400 MCG TAB PO SCH (07:28)
[2022-08-11] MEDS: MAGNESIUM OXIDE 400 MG TAB PO SCH (07:28)
[2022-08-11] MEDS: THIAMINE HCL 100 MG TAB PO SCH (07:29)
[2022-08-11] MEDS: METOPROLOL TARTRATE 1 MG/ML VIAL IV PRN (07:36)
[2022-08-11] MEDS ORDERED: POTASSIUM CHLORIDE CRTAB 20 MEQ TABCR PO ONE (08:46)
[2022-08-11] MEDS: METOPROLOL SUCC 50MG EXT REL TAB PO SCH ×2 (09:38→20:23)
[2022-08-11] MEDS: HEPARIN SOD 5,000 UNIT/0.5 ML VIAL SQ SCH ×2 (10:43→21:31)
[2022-08-11 11:28] LABS: Appearance Urine Cloudy (Clear); Bacteria Urine Automated 4+ (Negative); Bilirubin Urine Negative (Negative); Blood Urine 2+ (Negative); Color Urine Dark Yellow; Epithelial Cell Urine Auto >30 /lpf (0-5); Glucose Urine UA Negative (Negative); Ketones Urine Negative (Negative); Leukocyte Esterase Urine Trace (Negative); Nitrite Urine Negative (Negative); Protein Urine 2+ (Negative); Specific Gravity Urine 1.012 (1.000-1.030); Urobilinogen Urine Negative (Negative); pH Urine 7.5 (4.5-7.5)
[2022-08-11] MEDS ORDERED: WARFARIN SOD 7.5 MG TAB PO SCH (16:00)
--- NOTE | 2022-08-11 16:41 | Hospitalist Progress Note ---
Date of Service August 11, 2022 Assessment & Plan (1) Atrial fibrillation with rapid ventricular response: (2) Hypertension: (3) Hyponatremia: (4) Depression with anxiety: (5) Supratherapeutic INR: (6) PAD (peripheral artery disease): (7) Tobacco use disorder: (8) Chronic diastolic (congestive) heart failure: Plan: Patient is a 67 yr female with H/O Chronic atrial fibrillation on anticoagulation, alcohol use disorder, ongoing tobacco use, chronic diastolic heart failure, hypertension, pulmonary hypertension, anxiety, depression, COPD, history of breast cancer and other medical problems listed below who presents with palpitations and elevated blood pressure this morning was found to have atrial fibrillation with RVR. Atrial fibrillation with RVR Insetting of Etoh withdrawal, electrolyte imbalance Echo from Mar 2021 with preserved EF 55-59%, moderate-severe MR, elevated pulm pressures 45-50 mmHg Continue Metoprolol>> increased to Toprol-XL 50 mg twice daily INR supratherapeutic initially on presentation Monitor INR 8.7>>3.4>1.6 Resumed Coumadin Hypomagnesemia Hypokalemia Replete electrolytes as needed Monitor Chronic Hyponatremia Insetting of chronic diuretics use and alcohol use No change in mental status Monitor sodium levels Sodium 127 today Alcohol withdrawal AWSS protocol with gabapentin>> changed to Librium Continue thiamine, 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 Supratherapeutic INR INR 8.7 Received vit K No acute bleeding issues Prior provider discussed safely of anticoagulation in the past given alcohol use and frequent falls but patient has elected to continue Coumadin CT head showed no acute intracranial abnormality Resolved Urinary retention Continue Diaz catheter for now Voiding trial Inpt Vs Outpatient Abnormal urinalysis Suspected UTI Empirically started on Rocephin Follow-up urine culture Chronic thrombocytopenia Likely due to alcohol use Monitor HTN Continue Metoprolol BP stable PAD Worsening foot pain L>R over past 6 months, using ammonium lactate cream with some improvement Moderate PAD per MARGOTH 08/2021 Continue statin Has follow up with vascular surgery arranged by PCP Chronic diastolic heart failure H/o valvular disease, pulm HTN No signs of volume overload Resume lasix as able Tobacco use disorder COPD Recommended smoking cessation Nicotine patch Depression with anxiety Not on meds mood stable DVT Px Coumadin Heparin SQ until INR is therapeutic Code status: FULL CODE Admission and Anticipated Discharge Date Admission Date: August 09, 2022 Subjective Patient is seen and examined at bedside Intermittently agitated and combative Noted to have urinary retention today Poor historian Still tachycardic on monitor Denies any chest pain, dyspnea, dizziness Gabapentin changed to Librium overnight Review of Systems Review of Systems: All systems reviewed & are unremarkable except as noted in Subjective Physical Exam Physical Exam: Physical Exam: Vitals signs as noted above General Appearance:Moderately built, chronically appearing, no apparent distress Head: normocephalic, Atraumatic Eyes: normal inspection, EOMI Neck: supple, Trachea midline Respiratory/Chest: Normal breath sounds, CTA, No accessory muscle use Cardiovascular: Irregularly irregular, tachycardia, no murmur Abdomen/GI:Soft, Non tender, Bowel sounds present Extremities/Musculoskeletal:normal inspection, no edema Neurologic/Psych:AAOX3, grossly no focal neurological deficits Skin: normal color, warm Results & Data Results & Data Vital Signs (Past 12 Hours) Vital Signs Temp Pulse Pulse Resp BP BP Pulse Ox 08/11/22 15:39 36.6 C 114 H 30 H 95 08/11/22 15:39 122/104 H 08/11/22 15:00 104 H 24 08/11/22 15:15 86 08/11/22 14:00 86 24 08/11/22 11:00 36.7 C 102 H 20 95 08/11/22 10:47 148/80 H 08/11/22 10:47 102 H 20 08/11/22 10:00 100 H 24 94 08/11/22 10:00 134/75 08/11/22 09:45 129/90 08/11/22 08:00 08/11/22 09:00 82 35 H 96 08/11/22 08:01 128/82 08/11/22 08:01 84 45 H 96 08/11/22 08:00 83 45 H 92 08/11/22 07:35 36.8 C 113 H 18 143/110 H 94 08/11/22 07:36 113 H 143/110 H O2 Del Method 08/11/22 15:39 Room Air 08/11/22 15:39 08/11/22 15:00 08/11/22 15:15 08/11/22 14:00 08/11/22 11:00 Room Air 08/11/22 10:47 08/11/22 10:47 08/11/22 10:00 08/11/22 10:00 08/11/22 09:45 08/11/22 08:00 Room Air 08/11/22 09:00 08/11/22 08:01 08/11/22 08:01 08/11/22 08:00 08/11/22 07:35 Room Air 08/11/22 07:36 Laboratory Results Short CBC 08/11/22 Range/Units 06:00 WBC 7.32 (4.8-10.8) K/ul Hgb 12.3 (12.0-16.0) g/dl Hct 35.3 L (37.0-47.0) % Plt Count 61 L (130-400) K/uL BMP 08/11/22 06:00 Sodium 127 L Potassium 3.6 Chloride 97 L Carbon Dioxide 24 BUN 6 Creatinine 0.40 L Glucose 119 H Calcium 8.6 Urine 08/11/22 Range/Units 11:00 Urine Color Dark Yellow Urine Appearance Cloudy A (Clear) Urine pH 7.5 (4.5-7.5) Ur Specific [place] 1.012 (1.000-1.030) Urine Protein 2+ H (Negative) Urine Glucose (UA) Negative (Negative)
[2022-08-11] MEDS: cefTRIAXone SODIUM 1,000 MG in DEXTROSE 5% AD-VAN 50 ML IV SCH (17:56)
[2022-08-11] MEDS ORDERED: GABAPENTIN 600 MG TAB PO SCH (18:00)
[2022-08-12] MEDS: LORazepam 2 MG/1 ML VIAL IV PRN (00:55)
[2022-08-12] MEDS: METOPROLOL TARTRATE 1 MG/ML VIAL IV PRN (02:27)
[2022-08-12 05:04] LABS: Hematocrit (blood only) 37.8 % (37.0-47.0); Hemoglobin 13.2 g/dl (12.0-16.0); Mean Corpuscular Hemoglobin 33.6 pg (25.0-34.0); Mean Corpuscular Hgb Conc 34.9 g/dL (32.0-36.0); Mean Corpuscular Volume 96.2 fL (80.0-100.0); Mean Platelet Volume 12.3 fL (9.4-12.4); Platelet Count 65 K/uL (130-400); RDW Coefficient of Variation 13.1 % (11.5-14.5); RDW Standard Deviation 46.1 fL (36.4-46.3); Red Blood Count 3.93 M/uL (4.20-5.40); White Blood Count 8.38 K/ul (4.8-10.8)
[2022-08-12] MEDS: chlordiazePOXIDE HCl 25 MG CAP PO SCH ×3 (05:16→21:34)
[2022-08-12] MEDS: HEPARIN SOD 5,000 UNIT/0.5 ML VIAL SQ SCH ×3 (05:16→21:35)
[2022-08-12 05:43] LABS: BUN Creatinine Ratio 23.9 (10-20); Calcium 8.9 mg/dl (8.6-10.3); Creatinine Clr Calc Pharmacy 91.3 ml/min; Est GFR (African American) 117.6 ml/min; Est GFR (Non-African American) 101.5 ml/min; Magnesium 1.5 mg/dl (1.7-2.4); Potassium 4.5 mmol/L (3.5-5.1)
[2022-08-12 05:45] LABS: INR 1.6 (0.9-1.1); Prothrombin Time 16.9 Seconds (9.0-12.0)
[2022-08-12] MEDS: THIAMINE HCL 100 MG TAB PO SCH (08:18)
[2022-08-12] MEDS: METOPROLOL SUCC 50MG EXT REL TAB PO SCH ×2 (08:18→21:35)
[2022-08-12] MEDS: FOLIC ACID 400 MCG TAB PO SCH (08:18)
[2022-08-12] MEDS ORDERED: STAT IV STA (08:18)
[2022-08-12] MEDS: MAGNESIUM OXIDE 400 MG TAB PO SCH (08:18)
[2022-08-12] MEDS: NICOTINE 21 MG/24 HR TDSY TD SCH (08:19)
[2022-08-12] MEDS: ROSUVASTATIN CALCIUM 10 MG TAB PO SCH (08:19)
[2022-08-12] MEDS: AMMONIUM LACTATE 12% LOTION 225 GM BTL EXT SCH (08:20)
[2022-08-12] MEDS ORDERED: SODIUM BICARBONATE 8.4% 75 MEQ in SODIUM CHLORIDE 0.45 % 1,000 ML IV SCH (08:30)
[2022-08-12] MEDS: MAGNESIUM SULFATE / D5W 1 GM/100 ML BAG IV SCH ×2 (09:27→11:09)
[2022-08-12] MEDS: WARFARIN SOD 10 MG TAB PO SCH (15:22)
[2022-08-12] MEDS ORDERED: cloNIDine HCL 0.1 MG TAB PO PRN (15:54)
--- NOTE | 2022-08-12 15:55 | Hospitalist Progress Note ---
Date of Service August 12, 2022 Assessment & Plan (1) Atrial fibrillation with rapid ventricular response: (2) Hypertension: (3) Hyponatremia: (4) Depression with anxiety: (5) Supratherapeutic INR: (6) PAD (peripheral artery disease): (7) Tobacco use disorder: (8) Chronic diastolic (congestive) heart failure: Plan: Patient is a 67 yr female with H/O Chronic atrial fibrillation on anticoagulation, alcohol use disorder, ongoing tobacco use, chronic diastolic heart failure, hypertension, pulmonary hypertension, anxiety, depression, COPD, history of breast cancer and other medical problems listed below who presents with palpitations and elevated blood pressure this morning was found to have atrial fibrillation with RVR. Atrial fibrillation with RVR Insetting of Etoh withdrawal, electrolyte imbalance Echo from Mar 2021 with preserved EF 55-59%, moderate-severe MR, elevated pulm pressures 45-50 mmHg Continue Metoprolol>> increased to Toprol-XL 50 mg twice daily INR supratherapeutic initially on presentation Monitor INR 8.7>>3.4>1.6 Coumadin initially held Increase Coumadin to 10 mg daily Hypomagnesemia Hypokalemia Replete electrolytes as needed Monitor Metabolic acidosis Will start on bicarbonate drip Monitor Chronic Hyponatremia Insetting of chronic diuretics use and alcohol use No change in mental status Monitor sodium levels Sodium 129 today Alcohol withdrawal AWSS protocol with gabapentin>> changed to Librium Continue thiamine, 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 If continues to have significant withdrawal, will consider critical care input Supratherapeutic INR INR 8.7 Received vit K No acute bleeding issues Prior provider discussed safely of anticoagulation in the past given alcohol use and frequent falls but patient has elected to continue Coumadin CT head showed no acute intracranial abnormality Resolved Urinary retention Traumatic Diaz catheter--self-induced Monitor bladder scan for retention Abnormal urinalysis Suspected UTI Empirically started on Rocephin Urine culture growing gram-negative bacilli Chronic thrombocytopenia Likely due to alcohol use Monitor HTN Blood pressure elevated secondary to alcohol withdrawal Continue Metoprolol Clonidine as needed BP stable PAD Worsening foot pain L>R over past 6 months, using ammonium lactate cream with some improvement Moderate PAD per MARGOTH 08/2021 Continue statin Has follow up with vascular surgery arranged by PCP Chronic diastolic heart failure H/o valvular disease, pulm HTN No signs of volume overload Resume lasix as able Tobacco use disorder COPD Recommended smoking cessation Nicotine patch Depression with anxiety Not on meds mood stable DVT Px Coumadin Heparin SQ until INR is therapeutic Code status: FULL CODE Admission and Anticipated Discharge Date Admission Date: August 09, 2022 Subjective Patient is seen and examined at bedside Very drowsy during my encounter Pulled Diaz catheter and had transient hematuria Very poor historian Tachycardia better Still under ongoing through significant alcohol withdrawal Review of Systems Review of Systems: All systems reviewed & are unremarkable except as noted in Subjective Physical Exam Physical Exam: Physical Exam: Vitals signs as noted above General Appearance:Moderately built, chronic ill appearing, drowsy Head: normocephalic, Atraumatic Eyes: normal inspection, EOMI Neck: supple, Trachea midline Respiratory/Chest: Normal breath sounds, CTA, No accessory muscle use Cardiovascular: Irregularly irregular, tachycardia, no murmur Abdomen/GI:Soft, Non tender, Bowel sounds present Extremities/Musculoskeletal:normal inspection, no edema Neurologic/Psych:grossly no focal neurological deficits, drowsy Skin: normal color, warm Results & Data Results & Data Vital Signs (Past 12 Hours) Vital Signs Temp Pulse Resp BP Pulse Ox O2 Del Method 08/12/22 08:00 Room Air 08/12/22 09:00 89 30 H 96 08/12/22 08:13 158/113 H 08/12/22 08:13 102 H 33 H 95 08/12/22 08:00 115 H 24 95 08/12/22 07:00 95 H 26 H 97 08/12/22 06:00 117 H 48 H 96 08/12/22 08:00 36.8 C 08/12/22 05:00 105 H 38 H 95 08/12/22 04:00 121 H 50 H 96 Laboratory Results Short CBC 08/12/22 Range/Units 04:35 WBC 8.38 (4.8-10.8) K/ul Hgb 13.2 (12.0-16.0) g/dl Hct 37.8 (37.0-47.0) % Plt Count 65 L (130-400) K/uL BMP 08/12/22 04:35 Sodium 129 L Potassium 4.5 D Chloride 102 Carbon Dioxide 16 L BUN 11 Creatinine 0.46 L Glucose 139 H Calcium 8.9
[2022-08-12] MEDS: cefTRIAXone SODIUM 1,000 MG in DEXTROSE 5% AD-VAN 50 ML IV SCH (17:06)
[2022-08-12 18:52] LABS: iSTAT Allen Test Pass; iSTAT Arterial Blood Gas HCO3 22 meg/L (19-24); iSTAT Arterial Blood Gas pCO2 28 mmHg (35-46); iSTAT Arterial Blood Gas pO2 63 mmHg (80-95); iSTAT Carbon Dioxide 22 mmol/L (24-31); iSTAT Site R Radial
[2022-08-12] MEDS ORDERED: OPTIRAY 320 500ml IV ONE (20:06)
--- NOTE | 2022-08-12 20:24 | XRay Report ---
SINGLE VIEW CHEST CLINICAL HISTORY: Dyspnea. FINDINGS: An AP, portable, upright chest radiograph is compared to study dated 08/09/2022 and correlat ed with chest CT dated 03/27/2017. The examination is degraded by portable technique and patient rotat ion. The heart is enlarged noting atherosclerotic calcification of the thoracic aorta. There is pulm onary vascular congestion. Scarring/atelectasis is noted at the lung bases. No airspace consolidation or large pleural effusion is identified No pneumothorax is seen. The skeletal structures are osteope yosef. There is chronic posttraumatic deformity and postsurgical change noted in the right humerus. IMPRESSION: 1. Cardiomegaly with evidence of congestive failure. 2. No airspace consolidation or large pleural effusion is identified. ACT 112: Negative or not required by law. Electronically signed by: Joseph Morel M.D. 08/12/2022 8:23 PM
[2022-08-12] MEDS: D5W AND NSS 1,000 ML IV SCH ×2 (20:40→21:40)
[2022-08-12] MEDS ORDERED: FUROSEMIDE 40 MG/4 ML VIAL IV ONE (21:00)
--- NOTE | 2022-08-12 21:08 | CT Scan Report ---
Exam(s): CTA CHEST EXAM: CT Angiography Chest With Intravenous Contrast CLINICAL HISTORY: Reason for exam: tachypnea, r/o PE. TECHNIQUE: Axial computed tomographic angiography images of the chest with intravenous contrast. CTDI is 30.4 mGy and DLP is 355.49 mGy-cm. Automated exposure control was utilized for the study. A dose lowering technique was utilized adhering to the principles of ALARA. MIP reconstructed images were created and reviewed. COMPARISON: No relevant prior studies available. FINDINGS: Pulmonary arteries: Unremarkable. No acute pulmonary embolism. Aorta: Atherosclerotic changes of aorta. No thoracic aortic aneurysm. Lungs: Unremarkable. No mass. No consolidation. Pleural space: Small right pleural effusion. Reflux of contrast in the IVC. Cardiomegaly. Correlate for congestive heart failure. No pneumothorax. Heart: Cardiomegaly. Bones/joints: Degenerative changes of the spine. No acute fracture. No dislocation. Soft tissues: Unremarkable. Lymph nodes: Unremarkable. No enlarged lymph nodes. IMPRESSION: 1. No acute pulmonary embolism. 2. Small right pleural effusion. Reflux of contrast in the IVC. Cardiomegaly. Correlate for congestive heart failure. Electronically signed by: Sreedhar Lopes MD 08/12/22 21:07 PM
[2022-08-12 22:52] LABS: Appearance Urine Clear (Clear); Bacteria Urine Automated Negative (Negative); Bilirubin Urine Negative (Negative); Blood Urine 3+ (Negative); Color Urine Dark Yellow; Epithelial Cell Urine Auto >30 /lpf (0-5); Glucose Urine UA Negative (Negative); Ketones Urine Trace (Negative); Leukocyte Esterase Urine Trace (Negative); Nitrite Urine Negative (Negative); Protein Urine 2+ (Negative); Specific Gravity Urine 1.042 (1.000-1.030); Urobilinogen Urine Negative (Negative); pH Urine 5.5 (4.5-7.5)
[2022-08-12 23:30] LABS: Base Excess ABG 1.7 mEq/L (-9-1.8); HCO3 ABG 24 mmol/L (19-24); Oxygen Saturation ABG 97.9 % (90-95); PCO2 ABG 30 mmHg (35-46); PO2 ABG 86 mmHg (80-95)
[2022-08-12 23:32] LABS: Allen Test Pos (Pos)
[2022-08-12 23:35] LABS: pH ABG 7.51 (7.35-7.45)
[2022-08-12] MEDS ORDERED: LEVALBUTEROL 1.25MG/0.5ML NEB INH STA (23:54)
[2022-08-12] MEDS ORDERED: XOPENEX/ATROVENT 1.25mg/0.5MG NEB COMBO NEB STA (23:54)
[2022-08-12] MEDS ORDERED: IPRATROPIUM BROMIDE NEB SOLN 0.02% 2.5 ML VIAL INH STA (23:54)
[2022-08-13] MEDS: LORazepam 2 MG/1 ML VIAL IV PRN (00:09)
[2022-08-13 02:02] LABS: Base Excess VBG -0.2 mEq/L; HCO3 VBG 22 mmol/L; Oxygen Saturation VBG 97.1 %; PCO2 VBG 29 mmHg (38-50); PO2 VBG 80 mmHg; pH VBG 7.49 (7.36-7.41)
[2022-08-13 02:10] LABS: Basophils # (auto) 0.05 K/uL (0-0.2); Basophils % (auto) 0.6 %; Eosinophils # (auto) 0.03 K/uL (0-0.50); Eosinophils % (auto) 0.4 %; Hematocrit (blood only) 37.4 % (37.0-47.0); Hemoglobin 13.1 g/dl (12.0-16.0); Immature Granulocytes # (auto) 0.02 K/uL (0.01-0.20); Immature Granulocytes % (auto) 0.2 %; Lymphocytes # (auto) 1.68 K/uL (1.2-3.4); Lymphocytes % (auto) 20.4 %; Mean Corpuscular Hemoglobin 33.4 pg (25.0-34.0); Mean Corpuscular Volume 95.4 fL (80.0-100.0); Mean Platelet Volume 12.3 fL (9.4-12.4); Monocytes # (auto) 0.99 K/uL (0.11-0.59); Neutrophils # (auto) 5.47 K/uL (1.40-6.50); Neutrophils % (auto) 66.4 %; Platelet Count 73 K/uL (130-400); RDW Coefficient of Variation 13.1 % (11.5-14.5); Red Blood Count 3.92 M/uL (4.20-5.40); White Blood Count 8.24 K/ul (4.8-10.8)
[2022-08-13 02:27] LABS: BUN Creatinine Ratio 22.7 (10-20); Calcium 8.9 mg/dl (8.6-10.3); Creatinine Clr Calc Pharmacy 95.4 ml/min; Est GFR (African American) 119.4 ml/min; Magnesium 1.3 mg/dl (1.7-2.4); Potassium 3.4 mmol/L (3.5-5.1)
[2022-08-13] MEDS ORDERED: POTASSIUM CHLORIDE PWD 20 MEQ PACK PO STA (03:16)
[2022-08-13] MEDS: MAGNESIUM SULFATE / D5W 1 GM/100 ML BAG IV SCH ×3 (03:39→08:53)
[2022-08-13] MEDS ORDERED: GABAPENTIN 600 MG TAB PO SCH (06:00)
[2022-08-13] MEDS: HEPARIN SOD 5,000 UNIT/0.5 ML VIAL SQ SCH ×3 (06:33→20:44)
[2022-08-13 09:35] LABS: Base Excess VBG 1.5 mEq/L; HCO3 VBG 27 mmol/L; Oxygen Saturation VBG < 60.0 %; PCO2 VBG 46 mmHg (38-50); PO2 VBG 34 mmHg; pH VBG 7.38 (7.36-7.41)
[2022-08-13 10:12] LABS: INR 1.9 (0.9-1.1); Prothrombin Time 19.9 Seconds (9.0-12.0)
[2022-08-13] MEDS: ROSUVASTATIN CALCIUM 10 MG TAB PO SCH (11:45)
[2022-08-13] MEDS: THIAMINE HCL 100 MG TAB PO SCH (11:45)
[2022-08-13] MEDS: METOPROLOL SUCC 50MG EXT REL TAB PO SCH ×2 (11:45→20:44)
[2022-08-13] MEDS: MAGNESIUM OXIDE 400 MG TAB PO SCH (11:45)
[2022-08-13] MEDS: FOLIC ACID 400 MCG TAB PO SCH (11:45)
[2022-08-13] MEDS: AMMONIUM LACTATE 12% LOTION 225 GM BTL EXT SCH (11:46)
[2022-08-13] MEDS: NICOTINE 21 MG/24 HR TDSY TD SCH (13:33)
--- NOTE | 2022-08-13 16:32 | Hospitalist Progress Note ---
Date of Service August 13, 2022 Assessment & Plan (1) Atrial fibrillation with rapid ventricular response: (2) Hypertension: (3) Hyponatremia: (4) Depression with anxiety: (5) Supratherapeutic INR: (6) PAD (peripheral artery disease): (7) Tobacco use disorder: (8) Chronic diastolic (congestive) heart failure: Plan: Patient is a 67 yr female with H/O Chronic atrial fibrillation on anticoagulation, alcohol use disorder, ongoing tobacco use, chronic diastolic heart failure, hypertension, pulmonary hypertension, anxiety, depression, COPD, history of breast cancer and other medical problems listed below who presents with palpitations and elevated blood pressure this morning was found to have atrial fibrillation with RVR. 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 Intermittent hallucinations, confusion Reorient frequently Atrial fibrillation with RVR Insetting of Etoh withdrawal, electrolyte imbalance Echo from Mar 2021 with preserved EF 55-59%, moderate-severe MR, elevated pulm pressures 45-50 mmHg Continue Metoprolol>> increased to Toprol-XL 50 mg twice daily INR supratherapeutic initially on presentation Monitor INR 8.7>>3.4>1.6>1.9 Coumadin resumed Hypomagnesemia Hypokalemia Replete electrolytes as needed Monitor Chronic Hyponatremia Insetting of chronic diuretics use and alcohol use No change in mental status Monitor sodium levels Sodium 132 today Supratherapeutic INR INR 8.7 on presentation Received vit K No acute bleeding issues Prior provider discussed safely of anticoagulation in the past given alcohol use and frequent falls but patient has elected to continue Coumadin CT head showed no acute intracranial abnormality Resolved Urinary retention Traumatic Diaz catheter--self-induced Monitor bladder scan for retention UTI Urine Cx: E coli continue Rocephin Chronic thrombocytopenia Likely due to alcohol use Monitor HTN BP elevated secondary to alcohol withdrawal Continue Metoprolol Clonidine as needed Monitor PAD Worsening foot pain L>R over past 6 months, using ammonium lactate cream with some improvement Moderate PAD per MARGOTH 08/2021 Continue statin Has follow up with vascular surgery arranged by PCP Chronic diastolic heart failure H/o valvular disease, pulm HTN No signs of volume overload Resume lasix as able Tobacco use disorder COPD Recommended smoking cessation Nicotine patch Depression with anxiety Not on meds mood stable DVT Px Coumadin Heparin SQ until INR is therapeutic Code status: DNI/DNR as per my discussion with patient/patient's POA today Admission and Anticipated Discharge Date Admission Date: August 09, 2022 Subjective Patient is seen and examined at bedside More alert, awake today Intermittent hallucinations, confusion Discussed with patient's at bedside Denies any chest pain, dyspnea, dizziness, nausea, abdominal pain Very poor oral intake Poor historian Review of Systems Review of Systems: All systems reviewed & are unremarkable except as noted in Subjective Physical Exam Physical Exam: Physical Exam: Vitals signs as noted above General Appearance:Moderately built, chronic ill appearing, drowsy Head: normocephalic, Atraumatic Eyes: normal inspection, EOMI Neck: supple, Trachea midline Respiratory/Chest: Normal breath sounds, CTA, No accessory muscle use Cardiovascular: Irregularly irregular, tachycardia, no murmur Abdomen/GI:Soft, Non tender, Bowel sounds present Extremities/Musculoskeletal:normal inspection, no edema Neurologic/Psych:grossly no focal neurological deficits Skin: normal color, warm Results & Data Results & Data Vital Signs (Past 12 Hours) Vital Signs Pulse Pulse Resp BP BP Pulse Ox O2 Del Method 08/13/22 13:18 108 H 20 136/105 H 08/13/22 11:00 79 15 100 08/13/22 10:00 82 28 H 100 08/13/22 09:06 138/90 08/13/22 09:06 82 27 H 08/13/22 09:00 82 23 100 08/13/22 08:00 81 22 100 08/13/22 08:00 135/91 08/13/22 07:00 85 23 100 08/13/22 08:00 Nasal Cannula O2 Flow Rate 08/13/22 13:18 08/13/22 11:00 08/13/22 10:00 08/13/22 09:06 08/13/22 09:06 08/13/22 09:00 08/13/22 08:00 08/13/22 08:00 08/13/22 07:00 08/13/22 08:00 2 Laboratory Results Short CBC 08/13/22 Range/Units 01:43 WBC 8.24 (4.8-10.8) K/ul Hgb 13.1 (12.0-16.0) g/dl Hct 37.4 (37.0-47.0) % Plt Count 73 L (130-400) K/uL BMP 08/13/22 01:43 Sodium 132 L Potassium 3.4 L D Chloride 100 Carbon Dioxide 21 BUN 10 Creatinine 0.44 L Glucose 150 H Calcium 8.9 Urine 08/12/22 Range/Units 21:00 Urine Color Dark Yellow Urine Appearance Clear (Clear) Urine pH 5.5 (4.5-7.5) Ur Specific [place] 1.042 H (1.000-1.030) Urine Protein 2+ H (Negative) Urine Glucose (UA) Negative (Negative)
[2022-08-13] MEDS: cefTRIAXone SODIUM 1,000 MG in DEXTROSE 5% AD-VAN 50 ML IV SCH (16:46)
[2022-08-13] MEDS: WARFARIN SOD 10 MG TAB PO SCH (16:46)
[2022-08-14] MEDS: HEPARIN SOD 5,000 UNIT/0.5 ML VIAL SQ SCH (05:02)
[2022-08-14 06:04] LABS: Hematocrit (blood only) 36.4 % (37.0-47.0); Hemoglobin 12.9 g/dl (12.0-16.0); Mean Corpuscular Hemoglobin 33.5 pg (25.0-34.0); Mean Corpuscular Hgb Conc 35.4 g/dL (32.0-36.0); Mean Corpuscular Volume 94.5 fL (80.0-100.0); Mean Platelet Volume 11.5 fL (9.4-12.4); Platelet Count 100 K/uL (130-400); RDW Coefficient of Variation 13.3 % (11.5-14.5); RDW Standard Deviation 45.2 fL (36.4-46.3); Red Blood Count 3.85 M/uL (4.20-5.40); White Blood Count 5.99 K/ul (4.8-10.8)
[2022-08-14 06:15] LABS: Calcium 8.8 mg/dl (8.6-10.3); Est GFR (African American) 123.2 ml/min; Est GFR (Non-African American) 106.3 ml/min; Magnesium 1.5 mg/dl (1.7-2.4); Potassium 3.6 mmol/L (3.5-5.1)
[2022-08-14 06:32] LABS: INR 3.4 (0.9-1.1); Prothrombin Time 33.6 Seconds (9.0-12.0)
[2022-08-14] MEDS: FOLIC ACID 400 MCG TAB PO SCH (08:11)
[2022-08-14] MEDS: MAGNESIUM OXIDE 400 MG TAB PO SCH (08:11)
[2022-08-14] MEDS: AMMONIUM LACTATE 12% LOTION 225 GM BTL EXT SCH (08:11)
[2022-08-14] MEDS: NICOTINE 21 MG/24 HR TDSY TD SCH (08:12)
[2022-08-14] MEDS: ROSUVASTATIN CALCIUM 10 MG TAB PO SCH (08:12)
[2022-08-14] MEDS: THIAMINE HCL 100 MG TAB PO SCH (08:12)
[2022-08-14] MEDS: METOPROLOL SUCC 50MG EXT REL TAB PO SCH ×2 (08:12→21:19)
[2022-08-14] MEDS ORDERED: POTASSIUM CHLORIDE CRTAB 20 MEQ TABCR PO ONE (09:06)
[2022-08-14] MEDS: MAGNESIUM SULFATE / D5W 1 GM/100 ML BAG IV SCH ×2 (10:19→12:02)
[2022-08-14] MEDS: chlordiazePOXIDE HCl 5 MG CAP PO SCH ×2 (11:12→21:19)
--- NOTE | 2022-08-14 15:44 | Hospitalist Progress Note ---
Date of Service August 14, 2022 Assessment & Plan (1) Atrial fibrillation with rapid ventricular response: (2) Hypertension: (3) Hyponatremia: (4) Depression with anxiety: (5) Supratherapeutic INR: (6) PAD (peripheral artery disease): (7) Tobacco use disorder: (8) Chronic diastolic (congestive) heart failure: Plan: Patient is a 67 yr female with H/O Chronic atrial fibrillation on anticoagulation, alcohol use disorder, ongoing tobacco use, chronic diastolic heart failure, hypertension, pulmonary hypertension, anxiety, depression, COPD, history of breast cancer and other medical problems listed below who presents with palpitations and elevated blood pressure this morning was found to have atrial fibrillation with RVR. 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 Status slowly improving Currently not interested in drug rehab placement Clinically improving Atrial fibrillation with RVR Insetting of Etoh withdrawal, electrolyte imbalance Echo from Mar 2021 with preserved EF 55-59%, moderate-severe MR, elevated pulm pressures 45-50 mmHg Continue Metoprolol>> increased to Toprol-XL 50 mg twice daily INR supratherapeutic initially on presentation Monitor INR 8.7>>3.4>1.6>1.9>3.4 Hold Coumadin today Hypomagnesemia Hypokalemia Replete electrolytes as needed Monitor Chronic Hyponatremia Insetting of chronic diuretics use and alcohol use No change in mental status Monitor sodium levels Sodium 133 today Supratherapeutic INR INR 8.7 on presentation Received vit K No acute bleeding issues Prior provider discussed safely of anticoagulation in the past given alcohol use and frequent falls but patient has elected to continue Coumadin CT head showed no acute intracranial abnormality INR variability due to poor oral intake Urinary retention Traumatic Diaz catheter--self-induced Monitor bladder scan for retention UTI Urine Cx: E coli continue Rocephin Chronic thrombocytopenia Likely due to alcohol use Monitor HTN BP elevated secondary to alcohol withdrawal Continue Metoprolol Clonidine as needed Monitor PAD Worsening foot pain L>R over past 6 months, using ammonium lactate cream with some improvement Moderate PAD per MARGOTH 08/2021 Continue statin Has follow up with vascular surgery arranged by PCP Chronic diastolic heart failure H/o valvular disease, pulm HTN No signs of volume overload Resume lasix as able Tobacco use disorder COPD Recommended smoking cessation Nicotine patch Depression with anxiety Not on meds mood stable DVT Px Coumadin Code status: DNI/DNR Admission and Anticipated Discharge Date Admission Date: August 09, 2022 Subjective Patient is seen and examined at bedside Feels better Appetite slowly improving More alert, awake today Mental status slowly improving Denies any hallucinations today Denies any chest pain, dyspnea, dizziness, nausea, abdominal pain Review of Systems Review of Systems: All systems reviewed & are unremarkable except as noted in Subjective Physical Exam Physical Exam: Physical Exam: Vitals signs as noted above General Appearance:Moderately built, chronic ill appearing Head: normocephalic, Atraumatic Eyes: normal inspection, EOMI Neck: supple, Trachea midline Respiratory/Chest: Normal breath sounds, CTA, No accessory muscle use Cardiovascular: Irregularly irregular, tachycardia, no murmur Abdomen/GI:Soft, Non tender, Bowel sounds present Extremities/Musculoskeletal:normal inspection, no edema Neurologic/Psych:AAOX3, grossly no focal neurological deficits Skin: normal color, warm Results & Data Results & Data Vital Signs (Past 12 Hours) Vital Signs Temp Pulse Resp BP Pulse Ox O2 Del Method O2 Flow Rate 08/14/22 08:00 Nasal Cannula 2 08/14/22 12:00 36.5 C 87 20 107/61 100 Room Air 08/14/22 08:00 36.3 C L 101 H 20 137/100 99 Nasal Cannula 2 08/14/22 04:09 36.6 C 96 H 23 146/87 H 96 Nasal Cannula 2 Laboratory Results Short CBC 08/14/22 Range/Units 05:33 WBC 5.99 (4.8-10.8) K/ul Hgb 12.9 (12.0-16.0) g/dl Hct 36.4 L (37.0-47.0) % Plt Count 100 L (130-400) K/uL BMP 08/14/22 05:33 Sodium 133 L Potassium 3.6 Chloride 100 Carbon Dioxide 24 BUN 14 Creatinine 0.40 L Glucose 97 Calcium 8.8
[2022-08-14] MEDS: cefTRIAXone SODIUM 1,000 MG in DEXTROSE 5% AD-VAN 50 ML IV SCH (16:52)
[2022-08-15 04:53] LABS: Hemoglobin 13.3 g/dl (12.0-16.0); Mean Corpuscular Hemoglobin 33.5 pg (25.0-34.0); Mean Corpuscular Hgb Conc 34.1 g/dL (32.0-36.0); Mean Corpuscular Volume 98.2 fL (80.0-100.0); Mean Platelet Volume 10.9 fL (9.4-12.4); Platelet Count 120 K/uL (130-400); RDW Coefficient of Variation 13.3 % (11.5-14.5); RDW Standard Deviation 47.8 fL (36.4-46.3); Red Blood Count 3.97 M/uL (4.20-5.40); White Blood Count 5.04 K/ul (4.8-10.8)
[2022-08-15 05:03] LABS: Prothrombin Time 30.3 Seconds (9.0-12.0)
[2022-08-15 05:10] LABS: BUN Creatinine Ratio 17.6 (10-20); Creatinine Clr Calc Pharmacy 82.3 ml/min; Est GFR (African American) 113.7 ml/min; Est GFR (Non-African American) 98.1 ml/min; Magnesium 1.6 mg/dl (1.7-2.4); Potassium 4.3 mmol/L (3.5-5.1)
[2022-08-15] MEDS: FOLIC ACID 400 MCG TAB PO SCH (08:22)
[2022-08-15] MEDS: AMMONIUM LACTATE 12% LOTION 225 GM BTL EXT SCH (08:22)
[2022-08-15] MEDS: NICOTINE 21 MG/24 HR TDSY TD SCH (08:23)
[2022-08-15] MEDS: MAGNESIUM OXIDE 400 MG TAB PO SCH (08:23)
[2022-08-15] MEDS: METOPROLOL SUCC 50MG EXT REL TAB PO SCH ×2 (08:23→20:14)
[2022-08-15] MEDS: THIAMINE HCL 100 MG TAB PO SCH (08:24)
[2022-08-15] MEDS: ROSUVASTATIN CALCIUM 10 MG TAB PO SCH (08:24)
[2022-08-15] MEDS: MAGNESIUM SULFATE / D5W 1 GM/100 ML BAG IV SCH ×2 (10:21→12:24)
--- NOTE | 2022-08-15 13:34 | XRay Report ---
SINGLE VIEW CHEST CLINICAL HISTORY: Cough. FINDINGS: An AP, portable, upright chest radiograph is compared to chest x-ray and chest CT dated 07/21. The examination is degraded by portable technique and patient rotation. The heart is enlarge d noting atherosclerotic calcification of the thoracic aorta. Pulmonary vascular congestion has resol merced. Scarring/atelectasis is noted at the lung bases. No airspace consolidation or large pleural effu manjula is identified No pneumothorax is seen. The skeletal structures are osteopenic. There is chronic posttraumatic deformity and postsurgical change noted in the right humerus. IMPRESSION: Cardiomegaly with no acute cardiopulmonary abnormality. ACT 112: Negative or not required by law. Electronically signed by: Joseph Morel M.D. 08/15/2022 1:33 PM
[2022-08-15] MEDS ORDERED: WARFARIN SOD 2 MG TAB PO SCH (16:00)
--- NOTE | 2022-08-15 17:12 | Hospitalist Progress Note ---
Date of Service August 15, 2022 Assessment & Plan (1) Atrial fibrillation with rapid ventricular response: (2) Hypertension: (3) Hyponatremia: (4) Depression with anxiety: (5) Supratherapeutic INR: (6) PAD (peripheral artery disease): (7) Tobacco use disorder: (8) Chronic diastolic (congestive) heart failure: Plan: Patient is a 67 yr female with H/O Chronic atrial fibrillation on anticoagulation, alcohol use disorder, ongoing tobacco use, chronic diastolic heart failure, hypertension, pulmonary hypertension, anxiety, depression, COPD, history of breast cancer and other medical problems listed below who presents with palpitations and elevated blood pressure this morning was found to have atrial fibrillation with RVR. Alcohol withdrawal AWSS protocol with gabapentin>> changed to Librium Continue thiamine, folic acid Pen Tester to quit alcohol use Status slowly improving Currently not interested in drug rehab placement Clinically improving Plan to discharge to rehab facility as able Atrial fibrillation with RVR Insetting of Etoh withdrawal, electrolyte imbalance Echo from Mar 2021 with preserved EF 55-59%, moderate-severe MR, elevated pulm pressures 45-50 mmHg Continue Metoprolol>> increased to Toprol-XL 50 mg twice daily INR supratherapeutic initially on presentation Monitor INR 8.7>>3.4>1.6>1.9>3.0 Resume Coumadin-2mg today Hypomagnesemia Hypokalemia Replete electrolytes as needed Monitor Chronic Hyponatremia Insetting of chronic diuretics use and alcohol use No change in mental status Monitor sodium levels Sodium 131 today Supratherapeutic INR INR 8.7 on presentation Received vit K No acute bleeding issues Prior provider discussed safely of anticoagulation in the past given alcohol use and frequent falls but patient has elected to continue Coumadin CT head showed no acute intracranial abnormality INR variability due to poor oral intake Urinary retention Traumatic Diaz catheter--self-induced Monitor bladder scan for retention UTI Urine Cx: E coli continue Rocephin Chronic thrombocytopenia Likely due to alcohol use Monitor HTN BP elevated secondary to alcohol withdrawal Continue Metoprolol Clonidine as needed Monitor PAD Worsening foot pain L>R over past 6 months, using ammonium lactate cream with some improvement Moderate PAD per MARGOTH 08/2021 Continue statin Has follow up with vascular surgery arranged by PCP Chronic diastolic heart failure H/o valvular disease, pulm HTN No signs of volume overload Resume lasix as able Tobacco use disorder COPD Recommended smoking cessation Nicotine patch Depression with anxiety Not on meds mood stable DVT Px Coumadin Code status: DNI/DNR Admission and Anticipated Discharge Date Admission Date: August 09, 2022 Subjective Patient is seen and examined at bedside Sitting in chair during my current encounter States having dry cough Chest x-ray showed no acute findings ? Intermittent confusion/agitation Discussed with patient's over the phone Denies any chest pain, dyspnea, dizziness, nausea, abdominal pain Appetite slowly improving Review of Systems Review of Systems: All systems reviewed & are unremarkable except as noted in Subjective Physical Exam Physical Exam: Physical Exam: Vitals signs as noted above General Appearance:Moderately built, chronic ill appearing Head: normocephalic, Atraumatic Eyes: normal inspection, EOMI Neck: supple, Trachea midline Respiratory/Chest: Normal breath sounds, CTA, No accessory muscle use Cardiovascular: Irregularly irregular, no murmur Abdomen/GI:Soft, Non tender, Bowel sounds present Extremities/Musculoskeletal:normal inspection, no edema Neurologic/Psych:AAOX3, grossly no focal neurological deficits Skin: normal color, warm Results & Data Results & Data Vital Signs (Past 12 Hours) Vital Signs Temp Pulse Resp BP Pulse Ox O2 Del Method 08/15/22 15:36 80 16 116/62 95 Room Air 08/15/22 11:47 79 20 126/79 99 Room Air 08/15/22 08:00 36.8 C 82 26 H 137/80 97 Room Air Laboratory Results Short CBC 08/15/22 Range/Units 04:41 WBC 5.04 (4.8-10.8) K/ul Hgb 13.3 (12.0-16.0) g/dl Hct 39.0 (37.0-47.0) % Plt Count 120 L (130-400) K/uL BMP 08/15/22 04:41 Sodium 131 L Potassium 4.3 Chloride 97 L Carbon Dioxide 27 BUN 9 Creatinine 0.51 L Glucose 102 H Calcium 9.0
[2022-08-15] MEDS: cefTRIAXone SODIUM 1,000 MG in DEXTROSE 5% AD-VAN 50 ML IV SCH (17:13)
[2022-08-16 05:21] LABS: Hematocrit (blood only) 38.1 % (37.0-47.0); Hemoglobin 13.3 g/dl (12.0-16.0); Mean Corpuscular Hgb Conc 34.9 g/dL (32.0-36.0); Mean Corpuscular Volume 97.4 fL (80.0-100.0); Platelet Count 149 K/uL (130-400); RDW Coefficient of Variation 13.3 % (11.5-14.5); RDW Standard Deviation 47.1 fL (36.4-46.3); Red Blood Count 3.91 M/uL (4.20-5.40)
[2022-08-16 05:29] LABS: INR 2.1 (0.9-1.1); Prothrombin Time 21.9 Seconds (9.0-12.0)
[2022-08-16 05:39] LABS: BUN Creatinine Ratio 9.6 (10-20); Calcium 9.3 mg/dl (8.6-10.3); Creatinine Clr Calc Pharmacy 80.8 ml/min; Est GFR (Non-African American) 97.5 ml/min; Magnesium 1.5 mg/dl (1.7-2.4); Potassium 4.5 mmol/L (3.5-5.1)
[2022-08-16] MEDS: AMMONIUM LACTATE 12% LOTION 225 GM BTL EXT SCH (08:06)
[2022-08-16] MEDS: MAGNESIUM SULFATE / D5W 1 GM/100 ML BAG IV SCH ×2 (08:44→10:51)
[2022-08-16] MEDS: METOPROLOL SUCC 50MG EXT REL TAB PO SCH ×2 (08:45→20:39)
[2022-08-16] MEDS: MAGNESIUM OXIDE 400 MG TAB PO SCH (08:45)
[2022-08-16] MEDS: FOLIC ACID 400 MCG TAB PO SCH (08:45)
[2022-08-16] MEDS: THIAMINE HCL 100 MG TAB PO SCH (08:46)
[2022-08-16] MEDS: ROSUVASTATIN CALCIUM 10 MG TAB PO SCH (08:46)
[2022-08-16] MEDS: NICOTINE 21 MG/24 HR TDSY TD SCH (08:46)
[2022-08-16] MEDS ORDERED: WARFARIN SOD 5 MG TAB PO SCH (16:00)
--- NOTE | 2022-08-16 16:35 | Hospitalist Progress Note ---
Date of Service August 16, 2022 Assessment & Plan (1) Atrial fibrillation with rapid ventricular response: (2) Hypertension: (3) Hyponatremia: (4) Depression with anxiety: (5) Supratherapeutic INR: (6) PAD (peripheral artery disease): (7) Tobacco use disorder: (8) Chronic diastolic (congestive) heart failure: Plan: Patient is a 67 yr female with H/O Chronic atrial fibrillation on anticoagulation, alcohol use disorder, ongoing tobacco use, chronic diastolic heart failure, hypertension, pulmonary hypertension, anxiety, depression, COPD, history of breast cancer and other medical problems listed below who presents with palpitations and elevated blood pressure this morning was found to have atrial fibrillation with RVR. Alcohol withdrawal AWSS protocol with gabapentin>> changed to Librium Continue thiamine, folic acid Silicator to quit alcohol use Status slowly improving Currently not interested in drug rehab placement Clinically improved Discontinue one-to-one observation Rehab as able Atrial fibrillation with RVR Insetting of Etoh withdrawal, electrolyte imbalance Echo from Mar 2021 with preserved EF 55-59%, moderate-severe MR, elevated pulm pressures 45-50 mmHg Continue Metoprolol>> increased to Toprol-XL 50 mg twice daily INR supratherapeutic initially on presentation Monitor INR 8.7>>3.4>1.6>1.9>2.1 Will give Coumadin-5mg today Hypomagnesemia Hypokalemia Replete electrolytes as needed Monitor Chronic Hyponatremia Insetting of chronic diuretics use and alcohol use No change in mental status Monitor sodium levels Sodium 133 today Supratherapeutic INR INR 8.7 on presentation Received vit K No acute bleeding issues Prior provider discussed safely of anticoagulation in the past given alcohol use and frequent falls but patient has elected to continue Coumadin CT head showed no acute intracranial abnormality Urinary retention Traumatic Diaz catheter--self-induced Monitor bladder scan for retention UTI Urine Cx: E coli continue Rocephin Chronic thrombocytopenia Likely due to alcohol use Monitor Platelet counts improved HTN BP elevated secondary to alcohol withdrawal Continue Metoprolol Clonidine as needed Monitor PAD Worsening foot pain L>R over past 6 months, using ammonium lactate cream with some improvement Moderate PAD per MARGOTH 08/2021 Continue statin Has follow up with vascular surgery arranged by PCP Chronic diastolic heart failure H/o valvular disease, pulm HTN No signs of volume overload Resume lasix as able Tobacco use disorder COPD Recommended smoking cessation Nicotine patch Depression with anxiety Not on meds mood stable DVT Px Coumadin Code status: DNI/DNR Disposition Rehab as able Admission and Anticipated Discharge Date Admission Date: August 09, 2022 Subjective Patient is seen and examined at bedside States feeling better today Offers no complaints Oriented during my encounter Denies any chest pain, dyspnea, dizziness, nausea, abdominal pain Review of Systems Review of Systems: All systems reviewed & are unremarkable except as noted in Subjective Physical Exam Physical Exam: Physical Exam: Vitals signs as noted above General Appearance:Moderately built, chronic ill appearing Head: normocephalic, Atraumatic Eyes: normal inspection, EOMI Neck: supple, Trachea midline Respiratory/Chest: Normal breath sounds, CTA, No accessory muscle use Cardiovascular: Irregularly irregular, no murmur Abdomen/GI:Soft, Non tender, Bowel sounds present Extremities/Musculoskeletal:normal inspection, no edema Neurologic/Psych:AAOX3, grossly no focal neurological deficits Skin: normal color, warm Results & Data Results & Data Vital Signs (Past 12 Hours) Vital Signs Temp Pulse Pulse Resp BP BP BP 08/16/22 14:57 36.5 C 70 22 126/98 08/16/22 11:20 36.6 C 74 23 129/72 08/16/22 07:22 36.6 C 82 17 133/84 08/16/22 05:00 77 15 08/16/22 04:41 73 18 08/16/22 04:41 36.8 C 119/74 Pulse Ox O2 Del Method 08/16/22 14:57 98 Room Air 08/16/22 11:20 99 Room Air 08/16/22 07:22 Room Air 08/16/22 05:00 08/16/22 04:41 08/16/22 04:41 95 Room Air Laboratory Results Short CBC 08/16/22 Range/Units 05:03 WBC 6.10 (4.8-10.8) K/ul Hgb 13.3 (12.0-16.0) g/dl Hct 38.1 (37.0-47.0) % Plt Count 149 (130-400) K/uL BMP 08/16/22 05:03 Sodium 133 L Potassium 4.5 Chloride 100 Carbon Dioxide 27 BUN 5 L Creatinine 0.52 L Glucose 98 Calcium 9.3
[2022-08-17] MEDS: ACETAMINOPHEN 325 MG TAB PO PRN ×2 (04:45→15:58)
[2022-08-17] MEDS: AMMONIUM LACTATE 12% LOTION 225 GM BTL EXT SCH (08:00)
[2022-08-17] MEDS: METOPROLOL SUCC 50MG EXT REL TAB PO SCH ×2 (08:01→20:30)
[2022-08-17] MEDS: NICOTINE 21 MG/24 HR TDSY TD SCH (08:01)
[2022-08-17] MEDS: FOLIC ACID 400 MCG TAB PO SCH (08:01)
[2022-08-17] MEDS: ROSUVASTATIN CALCIUM 10 MG TAB PO SCH (08:01)
[2022-08-17] MEDS: THIAMINE HCL 100 MG TAB PO SCH (08:01)
[2022-08-17 08:10] LABS: Hematocrit (blood only) 33.9 % (37.0-47.0); Hemoglobin 11.9 g/dl (12.0-16.0); Mean Corpuscular Hemoglobin 33.3 pg (25.0-34.0); Mean Corpuscular Hgb Conc 35.1 g/dL (32.0-36.0); Mean Platelet Volume 11.2 fL (9.4-12.4); Platelet Count 155 K/uL (130-400); RDW Coefficient of Variation 13.2 % (11.5-14.5); RDW Standard Deviation 46.2 fL (36.4-46.3); Red Blood Count 3.57 M/uL (4.20-5.40); White Blood Count 6.16 K/ul (4.8-10.8)
[2022-08-17 08:19] LABS: INR 1.7 (0.9-1.1); Prothrombin Time 17.4 Seconds (9.0-12.0)
[2022-08-17 09:21] LABS: BUN Creatinine Ratio 13.6 (10-20); Calcium 8.9 mg/dl (8.6-10.3); Creatinine Clr Calc Pharmacy 95.4 ml/min; Est GFR (African American) 119.4 ml/min; Magnesium 1.4 mg/dl (1.7-2.4); Potassium 3.9 mmol/L (3.5-5.1)
[2022-08-17] MEDS: MAGNESIUM OXIDE 400 MG TAB PO SCH (09:51)
[2022-08-17] MEDS: MAGNESIUM SULFATE / D5W 1 GM/100 ML BAG IV SCH ×2 (10:14→13:31)
--- NOTE | 2022-08-17 13:03 | Hospitalist Progress Note ---
Date of Service August 17, 2022 Assessment & Plan (1) Atrial fibrillation with rapid ventricular response: (2) Hypertension: (3) Hyponatremia: (4) Depression with anxiety: (5) Supratherapeutic INR: (6) PAD (peripheral artery disease): (7) Tobacco use disorder: (8) Chronic diastolic (congestive) heart failure: Plan: Patient is a 67 yr female with H/O Chronic atrial fibrillation on anticoagulation, alcohol use disorder, ongoing tobacco use, chronic diastolic heart failure, hypertension, pulmonary hypertension, anxiety, depression, COPD, history of breast cancer and other medical problems listed below who presents with palpitations and elevated blood pressure this morning was found to have atrial fibrillation with RVR. Alcohol withdrawal AWSS protocol with gabapentin>> changed to Librium Continue thiamine, folic acid Pool Table Operator to quit alcohol use Completed Librium protocol Mental status seem to be back to baseline Clinically improved Plan to discharge to rehab facility when accepted Atrial fibrillation with RVR Insetting of Etoh withdrawal, electrolyte imbalance Echo from Mar 2021 with preserved EF 55-59%, moderate-severe MR, elevated pulm pressures 45-50 mmHg Continue Metoprolol>> increased to Toprol-XL 50 mg twice daily INR supratherapeutic initially on presentation Monitor INR 8.7>>3.4>1.6>1.7 Increase Coumadin to 10 mg today Hypomagnesemia Hypokalemia Replete electrolytes as needed Monitor Chronic Hyponatremia Insetting of chronic diuretics use and alcohol use No change in mental status Monitor sodium levels Sodium 128 today Supratherapeutic INR INR 8.7 on presentation Received vit K No acute bleeding issues Prior provider discussed safely of anticoagulation in the past given alcohol use and frequent falls but patient has elected to continue Coumadin CT head showed no acute intracranial abnormality Urinary retention Traumatic Diaz catheter--self-induced Monitor bladder scan for retention UTI Urine Cx: E coli Completed IV Rocephin course Chronic thrombocytopenia Likely due to alcohol use Monitor Platelet counts improved HTN BP elevated secondary to alcohol withdrawal Continue Metoprolol Clonidine as needed Monitor PAD Worsening foot pain L>R over past 6 months, using ammonium lactate cream with some improvement Moderate PAD per MARGOTH 08/2021 Continue statin Has follow up with vascular surgery arranged by PCP Chronic diastolic heart failure H/o valvular disease, pulm HTN No signs of volume overload Resume lasix as able Tobacco use disorder COPD Recommended smoking cessation Nicotine patch Depression with anxiety Not on meds mood stable DVT Px Coumadin Code status: DNI/DNR Disposition Rehab when accepted Admission and Anticipated Discharge Date Admission Date: August 09, 2022 Subjective Patient is seen and examined at bedside Offers no complaints Denies any chest pain, dyspnea, dizziness, nausea, abdominal pain Plan to discharge to rehab facility when accepted Review of Systems Review of Systems: All systems reviewed & are unremarkable except as noted in Subjective Physical Exam Physical Exam: Physical Exam: Vitals signs as noted above General Appearance:Moderately built, chronic ill appearing Head: normocephalic, Atraumatic Eyes: normal inspection, EOMI Neck: supple, Trachea midline Respiratory/Chest: Normal breath sounds, CTA, No accessory muscle use Cardiovascular: Irregularly irregular, no murmur Abdomen/GI:Soft, Non tender, Bowel sounds present Extremities/Musculoskeletal:normal inspection, no edema Neurologic/Psych:AAOX3, grossly no focal neurological deficits Skin: normal color, warm Results & Data Results & Data Vital Signs (Past 12 Hours) Vital Signs Temp Pulse Resp BP Pulse Ox O2 Del Method 08/17/22 07:34 36.7 C 63 18 104/66 96 Room Air Laboratory Results Short CBC 08/17/22 Range/Units 07:40 WBC 6.16 (4.8-10.8) K/ul Hgb 11.9 L (12.0-16.0) g/dl Hct 33.9 L (37.0-47.0) % Plt Count 155 (130-400) K/uL BMP 08/17/22 07:40 Sodium 128 L Potassium 3.9 Chloride 97 L Carbon Dioxide 25 BUN 6 Creatinine 0.44 L Glucose 120 H Calcium 8.9
[2022-08-17] MEDS ORDERED: WARFARIN SOD 10 MG TAB PO SCH (16:00)
[2022-08-18] MEDS ORDERED: LORazepam 2 MG/1 ML VIAL IV STA (00:14)
[2022-08-18] MEDS ORDERED: LORazepam 2 MG/1 ML VIAL IM STA (00:25)
[2022-08-18] MEDS ORDERED: LORazepam 2 MG/1 ML VIAL IV PRN (00:30)
[2022-08-18] MEDS ORDERED: MAGNESIUM OXIDE 400 MG TAB PO SCH (09:00)
[2022-08-18] MEDS: METOPROLOL SUCC 50MG EXT REL TAB PO SCH (09:22)
[2022-08-18] MEDS: THIAMINE HCL 100 MG TAB PO SCH (09:23)
[2022-08-18] MEDS: AMMONIUM LACTATE 12% LOTION 225 GM BTL EXT SCH (09:23)
[2022-08-18] MEDS: FOLIC ACID 400 MCG TAB PO SCH (09:23)
[2022-08-18] MEDS: NICOTINE 21 MG/24 HR TDSY TD SCH (09:23)
[2022-08-18] MEDS: ROSUVASTATIN CALCIUM 10 MG TAB PO SCH (09:23)
[2022-08-18] MEDS ORDERED: MAGNESIUM CHLORIDE W/CALCIUM 64MG DELAYED REL TAB PO ONE (11:18)
[2022-08-18 11:53] LABS: INR 1.7 (0.9-1.1); Prothrombin Time 17.6 Seconds (9.0-12.0)
--- NOTE | 2022-08-18 12:10 | Hospitalist Progress Note ---
Date of Service August 18, 2022 Assessment & Plan (1) Atrial fibrillation with rapid ventricular response: (2) Hypertension: (3) Hyponatremia: (4) Depression with anxiety: (5) Supratherapeutic INR: (6) PAD (peripheral artery disease): (7) Tobacco use disorder: (8) Chronic diastolic (congestive) heart failure: Plan: Patient is a 67 yr female with H/O Chronic atrial fibrillation on anticoagulation, alcohol use disorder, ongoing tobacco use, chronic diastolic heart failure, hypertension, pulmonary hypertension, anxiety, depression, COPD, history of breast cancer and other medical problems listed below who presents with palpitations and elevated blood pressure this morning was found to have atrial fibrillation with RVR. Alcohol withdrawal AWSS protocol with gabapentin>> changed to Librium Continue thiamine, folic acid Nurse Ob to quit alcohol use Completed Librium protocol Mental status back to baseline Plan to discharge to rehab facility today Atrial fibrillation with RVR Insetting of Etoh withdrawal, electrolyte imbalance Echo from Mar 2021 with preserved EF 55-59%, moderate-severe MR, elevated pulm pressures 45-50 mmHg Continue Metoprolol>> increased to Toprol-XL 50 mg twice daily INR supratherapeutic initially on presentation Monitor INR 8.7>>3.4>1.6>1.7 Continue Coumadin 10 mg today Hypomagnesemia Hypokalemia Replete electrolytes as needed Monitor Chronic Hyponatremia Insetting of chronic diuretics use and alcohol use No change in mental status Monitor sodium levels Sodium 128 today Supratherapeutic INR INR 8.7 on presentation Received vit K No acute bleeding issues Prior provider discussed safely of anticoagulation in the past given alcohol use and frequent falls but patient has elected to continue Coumadin CT head showed no acute intracranial abnormality Urinary retention Traumatic Diaz catheter--self-induced Monitor bladder scan for retention Resolved UTI Urine Cx: E coli Completed IV Rocephin course Chronic thrombocytopenia Likely due to alcohol use Monitor Resolved HTN BP elevated secondary to alcohol withdrawal Continue Metoprolol Clonidine as needed Monitor PAD Worsening foot pain L>R over past 6 months, using ammonium lactate cream with some improvement Moderate PAD per MARGOTH 08/2021 Continue statin Has follow up with vascular surgery arranged by PCP Chronic diastolic heart failure H/o valvular disease, pulm HTN No signs of volume overload Resume lasix upon discharge Tobacco use disorder COPD Recommended smoking cessation Nicotine patch Depression with anxiety Not on meds mood stable DVT Px Coumadin Code status: DNI/DNR Disposition Rehab Admission and Anticipated Discharge Date Admission Date: August 09, 2022 Subjective Patient is seen and examined at bedside Sitting in chair comfortably during my encounter Feels well Plan to discharge to rehab facility. Offers no complaints Denies any chest pain, dyspnea, dizziness, nausea, abdominal pain Review of Systems Review of Systems: All systems reviewed & are unremarkable except as noted in Subjective Physical Exam Physical Exam: Physical Exam: Vitals signs as noted above General Appearance:Moderately built, chronic ill appearing Head: normocephalic, Atraumatic Eyes: normal inspection, EOMI Neck: supple, Trachea midline Respiratory/Chest: Normal breath sounds, CTA, No accessory muscle use Cardiovascular: Irregularly irregular, no murmur Abdomen/GI:Soft, Non tender, Bowel sounds present Extremities/Musculoskeletal:normal inspection, no edema Neurologic/Psych:AAOX3, grossly no focal neurological deficits Skin: normal color, warm Results & Data Results & Data Vital Signs (Past 12 Hours) Vital Signs Pulse Resp BP Pulse Ox O2 Del Method 08/18/22 09:22 92 H 18 135/89 97 Room Air
--- NOTE | 2022-08-18 13:46 | Discharge Summary ---
Date of Service August 18, 2022 Admission HPI Per Admitting Provider This is a 67-year-old female with PMH of chronic atrial fibrillation on anticoagulation, alcohol use disorder, ongoing tobacco use, chronic diastolic heart failure, hypertension, pulmonary hypertension, anxiety, depression, COPD, history of breast cancer and other medical problems listed below who presents with palpitations and elevated blood pressure this morning. History obtained from patient, at bedside and review of primary care and cardiology notes. Patient noted systolic blood pressure of 190 as well as palpitations and tremulousness and called PCP, who directed her to ED for further evaluation. Patient and her with longstanding alcohol use and have been trying to decrease use gradually at home over the past month or so. Reports current use as 2 16 ounce cans of beer daily, but last drink was on Monday night and she is trying to stop use altogether. Denies any known falls or hallucinations. Last seizure was last month when they initially began to cut down on alcohol use. Does have history of DTs in the setting of alcohol withdrawal in the past. Denies any recent infection. No chest pain. No headache, lightheadedness, shortness of breath, nausea, vomiting abdominal pain, dysuria, diarrhea or constipation. Of note, mentions patient with declining short-term memory over the past 3 months. States that it is now common for her to ask him a question and then repeat the answer incorrectly a few minutes later. Does have PAD with ongoing foot pain L>R and is planning to see vascular again in a few months. Also suffers from peripheral neuropathy in setting of ongoing etoh abuse. Has been taking Toprol as scheduled and took prior to arrival. Last took coumadin yesterday evening. Admission Exam Per Admitting Provider Physical Exam Physical Exam: General Appearance:WD/WN, vitals as above, appears older than stated age, tremulous, anxious but conversing without issue Head: normocephalic, atraumatic Eyes:normal inspection, PERRL, conjunctivae normal, anicteric sclerae ENT: external ear and nose normal, dry mucous membranes of oropharynx Neck: normal visual inspection, trachea midline, no thyromegaly Respiratory:normal respiratory effort, lungs clear to auscultation, no wheeze, rales, rhonchi. No accessory muscle use Cardiovascular: irregular rate & rhythm, no murmur appreciated, no BLE edema. Vessels: no JVD Chest: normal inspection of chest Abdomen/GI: normal bowel sounds, soft, nontender, no hepatosplenomegaly Extremities/Musculoskeletal: no cyanosis or clubbing, extremities motor strength 5/5. + PT and DP pulses diminished in BLE, L>R. L foot with dusky coloration but warm, no wounds Neurologic: PERRL, EOMI, accommodation nl, no face palsy, no dysarthria, CN's II-XI intact bilaterally and moves all extremities Psychiatric:A+Ox3, flattened affect Skin: no rashes, normal color, warm/dry Principal Diagnosis Alcohol withdrawal Atrial fibrillation with RVR Hypomagnesemia Hypokalemia Supratherapeutic INR Urinary tract infection Discharge Data Allergies Allergy/AdvReac Type Severity Reaction Status Date / Time Sulfa (Sulfonamide Allergy Mild RASHES Verified 01/02/20 21:21 Antibiotics) morphine Allergy Rash Verified 01/02/20 21:21 trimethoprim Allergy Rash Verified 01/02/20 21:22 Consultations 08/09/22 14:17 ED Decision to Admit Stat Procedures Performed Laboratory Results WBC 6.16 K/ul (4.8-10.8) 08/17/22 07:40 RBC 3.57 M/uL (4.20-5.40) L 08/17/22 07:40 Hgb 11.9 g/dl (12.0-16.0) L 08/17/22 07:40 Hct 33.9 % (37.0-47.0) L 08/17/22 07:40 MCV 95.0 fL (80.0-100.0) 08/17/22 07:40 MCH 33.3 pg (25.0-34.0) 08/17/22 07:40 MCHC 35.1 g/dL (32.0-36.0) 08/17/22 07:40 RDW Std Deviation 46.2 fL (36.4-46.3) 08/17/22 07:40 RDW Coeff of Saw 13.2 % (11.5-14.5) 08/17/22 07:40 Plt Count 155 K/uL (130-400) 08/17/22 07:40 MPV 11.2 fL (9.4-12.4) 08/17/22 07:40 Immature Gran % (Auto) 0.2 % 08/13/22 01:43 Neut % (Auto) 66.4 % 08/13/22 01:43 Lymph % (Auto) 20.4 % 08/13/22 01:43 Story % (Auto) 12.0 % 08/13/22 01:43 Eos % (Auto) 0.4 % 08/13/22 01:43 Baso % (Auto) 0.6 % 08/13/22 01:43 Neut # (Auto) 5.47 K/uL (1.40-6.50) 08/13/22 01:43 Lymph # (Auto) 1.68 K/uL (1.2-3.4) 08/13/22 01:43 Story # (Auto) 0.99 K/uL (0.11-0.59) H 08/13/22 01:43 Eos # (Auto) 0.03 K/uL (0-0.50) 08/13/22 01:43 Baso # (Auto) 0.05 K/uL (0-0.2) 08/13/22 01:43 Immature Gran # (Auto) 0.02 K/uL (0.01-0.20) 08/13/22 01:43 Platelet Estimate Decreased (Normal) L 08/09/22 11:42 Tear Drop Cells 1+ 08/09/22 11:42 Echinocytes 1+ 08/09/22 11:42 PT 17.6 Seconds (9.0-12.0) H 08/18/22 11:25 INR 1.7 (0.9-1.1) H 08/18/22 11:25 Sample Site R Radial 08/12/22 18:37 POC pH 7.50 (7.35-7.45) H 08/12/22 18:37 POC pCO2 28 mmHg (35-46) L 08/12/22 18:37 POC pO2 63 mmHg (80-95) L 08/12/22 18:37 POC HCO3 22 eduard/L (19-24) 08/12/22 18:37 POC Total CO2 22 mmol/L (24-31) L 08/12/22 18:37 POC Base Excess -2.0 eduard/L (-9-1.8) 08/12/22 18:37 ABG pH 7.51 (7.35-7.45) H* 08/12/22 23:02 ABG pCO2 30 mmHg (35-46) L 08/12/22 23:02 ABG pO2 86 mmHg (80-95) 08/12/22 23:02 ABG HCO3 24 mmol/L (19-24) 08/12/22 23:02 POC ABG O2 Sat 94.0 % (90-95) 08/12/22 18:37 ABG O2 Saturation 97.9 % (90-95) H 08/12/22 23:02 ABG Base Excess 1.7 mEq/L (-9-1.8) 08/12/22 23:02 Anjel Test Pos (Pos) 08/12/22 23:02 VBG pH 7.38 (7.36-7.41) 08/13/22 09:26 VBG pCO2 46 mmHg (38-50) 08/13/22 09:26 VBG pO2 34 mmHg 08/13/22 09:26 VBG HCO3 27 mmol/L 08/13/22 09:26 VBG O2 Saturation < 60.0 % 08/13/22 09:26 VBG Base Excess 1.5 mEq/L 08/13/22 09:26 Oxygen Given 2.5 08/12/22 23:02 O2 Delivery Device Room Air 08/12/22 18:37 Sodium 128 mmol/L (136-145) L 08/17/22 07:40 Potassium 3.9 mmol/L (3.5-5.1) 08/17/22 07:40 Chloride 97 mmol/L (98-107) L 08/17/22 07:40 Carbon Dioxide 25 mmol/L (21-32) 08/17/22 07:40 Anion Gap 6 (3-11) 08/17/22 07:40 BUN 6 mg/dl (6-23) 08/17/22 07:40 Creatinine 0.44 mg/dl (0.6-1.2) L 08/17/22 07:40 Est Cr Clr Drug Dosing 95.4 ml/min 08/17/22 07:40 Est GFR ( Amer) 119.4 ml/min 08/17/22 07:40 Est GFR (Non-Af Amer) 103.0 ml/min 08/17/22 07:40 BUN/Creatinine Ratio 13.6 (10-20) 08/17/22 07:40 Glucose 120 mg/dl (70-99(Fasting)) H 08/17/22 07:40 Estimat Average Glucose 111 mg/dl 08/11/22 06:00 Hemoglobin A1c 5.5 % (4.5-5.6) 08/11/22 06:00 Calcium 8.9 mg/dl (8.6-10.3) 08/17/22 07:40 Magnesium 1.4 mg/dl (1.7-2.4) L 08/17/22 07:40 Total Bilirubin 0.8 mg/dl (0.2-1.0) 08/09/22 11:42 AST 71 U/L (13-39) H 08/09/22 11:42 ALT 38 U/L (7-52) 08/09/22 11:42 Alkaline Phosphatase 114 U/L (34-104) H 08/09/22 11:42 Troponin I High Sens 12.3 pg/ml (0-14) 08/09/22 11:42 B-Natriuretic Peptide 2400 pg/ml (0-100) H 08/13/22 01:43 Total Protein 8.1 gm/dl (6.0-8.3) 08/09/22 11:42 Albumin 4.4 gm/dl (3.4-5.0) 08/09/22 11:42 Globulin 3.7 gm/dl (2.5-4.0) 08/09/22 11:42 Albumin/Globulin Ratio 1.2 (0.9-2) 08/09/22 11:42 TSH 4.865 uIu/ml (0.300-4.500) H 08/09/22 11:42 Free T4 0.70 ng/dl (0.61-1.60) 08/09/22 11:42 Urine Color Dark Yellow 08/12/22 21:00 Urine Appearance Clear (Clear) 08/12/22 21:00 Urine pH 5.5 (4.5-7.5) 08/12/22 21:00 Ur Specific [place] 1.042 (1.000-1.030) H 08/12/22 21:00 Urine Protein 2+ (Negative) H 08/12/22 21:00 Urine Glucose (UA) Negative (Negative) 08/12/22 21:00 Urine Ketones Trace (Negative) H 08/12/22 21:00 Urine Blood 3+ (Negative) H 08/12/22 21:00 Urine Nitrite Negative (Negative) 08/12/22 21:00 Urine Bilirubin Negative (Negative) 08/12/22 21:00 Urine Urobilinogen Negative (Negative) 08/12/22 21:00 Ur Leukocyte Esterase Trace (Negative) H 08/12/22 21:00 Urine WBC (Auto) 5-10 /hpf (0-5) H 08/12/22 21:00 Urine RBC (Auto) 10-30 /hpf (0-4) H 08/12/22 21:00 U Hyaline Cast (Auto) 5-10 /lpf (0-5) H 08/12/22 21:00 U Epithel Cells (Auto) >30 /lpf (0-5) H 08/12/22 21:00 Urine Bacteria (Auto) Negative (Negative) 08/12/22 21:00 Urine Opiates Screen Neg (Neg) 08/09/22 Unknown Ur Methadone, Qual Neg (Neg) 08/09/22 Unknown Urine Barbiturates Neg (Neg) 08/09/22 Unknown Ur Phencyclidine (PCP) Neg (Neg) 08/09/22 Unknown U Amphetamin/Meth Scrn Neg (Neg) 08/09/22 Unknown MDMA (Ecstasy) Screen Neg (Neg) 08/09/22 Unknown U Benzodiazepines Scrn Neg (Neg) 08/09/22 Unknown Ur Cocaine Metabolite Neg (Neg) 08/09/22 Unknown U Marijuana (THC) Screen Neg (Neg) 08/09/22 Unknown Hepatitis C Ab (EIA) NON-REACTIVE (NON-REACTIVE) 08/10/22 05:13 Hep C Ab Signal/Cutoff 0.03 (<1.00) 08/10/22 05:13 SARS-CoV-2, RNA, NAAT NEGATIVE (NEGATIVE) 08/09/22 11:[address] 08/09/22 15:11 CT head/brain wo con CLINICAL HISTORY: 67 years-old Female with supratherapeutic inr, AMS. Acutely altered mental status TECHNIQUE: Multiple axial CT images of the head were obtained without contrast. A dose lowering technique was utilized adhering to the principles of ALARA. CT DOSE: 537.48 mGy.cm COMPARISON: Head CT 01/02/2020 FINDINGS: No acute intracranial hemorrhage, midline shift, intracranial mass, hydrocephalus, territorial ischemia or abnormal extra-axial collection. Involutional changes with chronic microvascular ischemic disease. Motion degraded exam. Cerebral vascular calcifications. The calvarium is intact. Prior bilateral lens repair. The paranasal sinuses, mastoid air cells, and middle ear cavities are clear. IMPRESSION: No acute intracranial abnormality. ACT 112: Negative or not required by law. The above report was generated using voice recognition software. It may contain grammatical, syntax or spelling errors. Electronically signed by: Rahul Lyle M.D. 08/09/2022 4:00 PM Chest CTA 08/12/22 19:17 Exam(s): CTA CHEST EXAM: CT Angiography Chest With Intravenous Contrast CLINICAL HISTORY: Reason for exam: tachypnea, r/o PE. TECHNIQUE: Axial computed tomographic angiography images of the chest with intravenous contrast. CTDI is 30.4 mGy and DLP is 355.49 mGy-cm. Automated exposure control was utilized for the study. A dose lowering technique was utilized adhering to the principles of ALARA. MIP reconstructed images were created and reviewed. COMPARISON: No relevant prior studies available. FINDINGS: Pulmonary arteries: Unremarkable. No acute pulmonary embolism. Aorta: Atherosclerotic changes of aorta. No thoracic aortic aneurysm. Lungs: Unremarkable. No mass. No consolidation. Pleural space: Small right pleural effusion. Reflux of contrast in the IVC. Cardiomegaly. Correlate for congestive heart failure. No pneumothorax. Heart: Cardiomegaly. Bones/joints: Degenerative changes of the spine. No acute fracture. No dislocation. Soft tissues: Unremarkable. Lymph nodes: Unremarkable. No enlarged lymph nodes. IMPRESSION: 1. No acute pulmonary embolism. 2. Small right pleural effusion. Reflux of contrast in the IVC. Cardiomegaly. Correlate for congestive heart failure. Electronically signed by: Sreedhar Lopes MD 08/12/22 21:07 PM Chest X-Ray 08/15/22 13:02 SINGLE VIEW CHEST CLINICAL HISTORY: Cough. FINDINGS: An AP, portable, upright chest radiograph is compared to chest x-ray and chest CT dated 08/12/2022. The examination is degraded by portable technique and patient rotation. The heart is enlarged noting atherosclerotic calcification of the thoracic aorta. Pulmonary vascular congestion has resolved. Scarring/atelectasis is noted at the lung bases. No airspace consolidation or large pleural effusion is identified No pneumothorax is seen. The skeletal structures are osteopenic. There is chronic posttraumatic deformity and postsurgical change noted in the right humerus. IMPRESSION: Cardiomegaly with no acute cardiopulmonary abnormality. ACT 112: Negative or not required by law. Electronically signed by: Jospeh Morel M.D. 08/15/2022 1:33 PM Ordered Studies 08/09/22 15:11 CT head/brain wo con Routine 08/12/22 19:17 CT angio chest PE protocol Stat Hospital Course (1) Atrial fibrillation with rapid ventricular response: (2) Hypertension: (3) Hyponatremia: (4) Depression with anxiety: (5) Supratherapeutic INR: (6) PAD (peripheral artery disease): (7) Tobacco use disorder: (8) Chronic diastolic (congestive) heart failure: Patient is a 67 yr female with H/O Chronic atrial fibrillation on anticoagulation, alcohol use disorder, ongoing tobacco use, chronic diastolic heart failure, hypertension, pulmonary hypertension, anxiety, depression, COPD, history of breast cancer and other medical problems listed below who presents with palpitations and elevated blood pressure this morning was found to have atrial fibrillation with RVR. Alcohol withdrawal AWSS protocol with gabapentin>> changed to Librium Continue thiamine, folic acid [employer] to quit alcohol use Completed Librium protocol Mental status back to baseline Plan to discharge to rehab facility today Atrial fibrillation with RVR Insetting of Etoh withdrawal, electrolyte imbalance Echo from Mar 2021 with preserved EF 55-59%, moderate-severe MR, elevated pulm pressures 45-50 mmHg Continue Metoprolol>> increased to Toprol-XL 50 mg twice daily INR supratherapeutic initially on presentation Monitor INR 8.7>>3.4>1.6>1.7 Continue Coumadin 10 mg today Hypomagnesemia Hypokalemia Replete electrolytes as needed Monitor Chronic Hyponatremia Insetting of chronic diuretics use and alcohol use No change in mental status Monitor sodium levels Sodium 128 today Supratherapeutic INR INR 8.7 on presentation Received vit K No acute bleeding issues Prior provider discussed safely of anticoagulation in the past given alcohol use and frequent falls but patient has elected to continue Coumadin CT head showed no acute intracranial abnormality Urinary retention Traumatic Diaz catheter--self-induced Monitor bladder scan for retention Resolved UTI Urine Cx: E coli Completed IV Rocephin course Chronic thrombocytopenia Likely due to alcohol use Monitor Resolved HTN BP elevated secondary to alcohol withdrawal Continue Metoprolol Clonidine as needed Monitor PAD Worsening foot pain L>R over past 6 months, using ammonium lactate cream with some improvement Moderate PAD per MARGOTH 08/2021 Continue statin Has follow up with vascular surgery arranged by PCP Chronic diastolic heart failure H/o valvular disease, pulm HTN No signs of volume overload Resume lasix upon discharge Tobacco use disorder COPD Recommended smoking cessation Nicotine patch Depression with anxiety Not on meds mood stable DVT Px Coumadin Code status: DNI/DNR Disposition Rehab Total Time Total Time Spent Total Time Spent (In Minutes): 66 minutes Discharge Plan Discharge Items Patient Disposition: Transfer Inpatient Rehab Fac Reason For Visit: A FIB WITH RVR, HYPOMAGNESEMIA, ETOH WITHDRAWAL Discharge Diagnosis: Alcohol withdrawal Atrial fibrillation with RVR Hypomagnesemia Hypokalemia Supratherapeutic INR Urinary tract infection Activity: Per Instructions section Exercise/Sports: Gradually increase as tolerated Non-emergency contact: Primary Care Provider and Surgeon Call non-emergency contact if: you have any medication questions, your symptoms worsen, your pain is concerning for you and you have a fever Follow-up/Referrals: Adrián Barajas DO [Primary Care Provider] - Dietitian Info: Minced and Moist Diet: Heart Healthy Addtl Attending Provider Instructions: Follow-up with your primary care physician Dr. Adrián Barajas in 1 week upon discharge from rehab facility Follow-up with Coumadin clinic for monitoring your PT/INR and dosing your Coumadin Follow-up with the vascular surgeon for management of peripheral artery disease as outpatient -- Quit drinking alcohol and smoking as advised. --Get blood test (PT/INR) in 2 days and follow up with your physician for further adjustment of Coumadin dose as needed Seek immediate medical attention if your symptoms reoccur or worsen Please take all medications as instructed on discharge list below. Please call if you have any questions or problems. You can reach a [facility] hospitalist on duty at [facility] 24 hours a day by calling [phone] Pending Studies at Discharge: No Stand-Alone Forms: My [facility] Skilled Items Patient informed of condition?: Yes DNR: Yes Discharge Level of Care: Acute rehab Communicable Disease: No Discharge Prognosis: Stable Lines: None Urinary Catheter: No Medications and DC Order Prescriptions: Continued acetaminophen [Mapap (acetaminophen)] 325 mg Tablet 650 mg PO Q8H PRN (Reason: pain ) Qty: 30 0RF thiamine HCl (vitamin B1) [Vitamin B-1] 100 mg Tablet 100 mg PO DAILY folic acid 400 mcg Tablet 0.4 mg PO DAILY albuterol sulfate 90 mcg/actuation Hfa Aerosol Inhaler 2 puff INHALATION Q4 PRN (Reason: Shortness Of Breath Or Wheezing) warfarin 5 mg tablet 10 mg PO SUTUWETHFRSA@1600 ammonium lactate 12 % lotion 1 applic TOPICAL DAILY warfarin 5 mg tablet 15 mg PO MO@1600 furosemide 20 mg tablet 20 mg PO DAILY rosuvastatin 10 mg tablet 10 mg PO DAILY Changed metoprolol succinate 50 mg tablet extended release 24 hr 50 mg PO BID Qty: 1 0RF magnesium 200 mg Tablet 400 mg PO DAILY Qty: 1 0RF Rx Instructions: only taking half pill due to size/difficulty swallowing Discharge Orders: Discharge Order (Routine); Ordered 08/18/22 Ordered By: Goran Hardy Admission Data Admit Date/Time: 08/09/22 13:27 Attending Provider: Goran Hardy Admit Provider: Keesha Blackwell Primary Care Provider: Adrián Barajas Other Providers: [place] ; [facility] ; Keesha Blackwell Other Interventions: Discharge Summary Assessment (RN) Last Done: 08/18/22 12:32
[2022-08-18 15:53] LABS: BUN Creatinine Ratio 15.7 (10-20); Calcium 9.6 mg/dl (8.6-10.3); Creatinine Clr Calc Pharmacy 82.3 ml/min; Est GFR (African American) 113.7 ml/min; Est GFR (Non-African American) 98.1 ml/min; Magnesium 1.5 mg/dl (1.7-2.4); Potassium 3.6 mmol/L (3.5-5.1)
== END 2022-08-18 13:36 | DRG 309 ==
LOC: ED 11:21 → 1E 13:27 → SUATTDRO 13:27 → 1E 15:22 → 3N 08-16 17:58

== ENCOUNTER 2023-05-02 18:13 | Inpatient (IN) ==
--- NOTE | 2023-05-02 18:19 | ED Triage Note ---
Date of Service May 02, 2023 Provider in Triage Author: Aaron Sue A History of Present Illness This patient was briefly evaluated while in triage. An abbreviated physical exam was performed. This patient is a 68-year-old Female who presents to the ED for evaluation of afib and seizures. Went to Cardiology and was sent to the ER. Is on Warfarin. Sodium is reportedly low, and may be causing the issues, however has had seizures for over a year. Physical Exam Limited Triage Exam: VITALS: Vitals are noted on the nurse's note and reviewed by myself. Vital signs stable. GENERAL: Elderly, white female, who is in no acute distress and resting comfortably. Patient is cooperative with the examination. HEART: Irregularly irregular. LUNGS: Clear to auscultation bilaterally without wheezes, rales or rhonchi. No retractions or accessory muscle use. NEURO: Patient was alert and oriented to person place and time. CN II through XII grossly intact. Initial orders for labs and / or imaging were placed and patient was placed in the waiting area until a bed is available. Please see further documentation for the full ED course. MDM / Impression Impression Impression: Hyponatremia, Hypomagnesemia, Seizures, Subtherapeutic international normalized ratio (INR)
[2023-05-02 18:55] LABS: Basophils # (auto) 0.05 K/uL (0.00-0.20); Basophils % (auto) 0.8 %; Eosinophils # (auto) 0.03 K/uL (0.00-0.50); Eosinophils % (auto) 0.5 %; Hematocrit (blood only) 40.1 % (37.0-47.0); Hemoglobin 14.3 g/dl (12.0-16.0); Immature Granulocytes # (auto) 0.03 K/uL (0.01-0.20); Immature Granulocytes % (auto) 0.5 %; Lymphocytes # (auto) 1.71 K/uL (1.20-3.40); Mean Corpuscular Hemoglobin 33.1 pg (25.0-34.0); Mean Corpuscular Hgb Conc 35.7 g/dL (32.0-36.0); Mean Corpuscular Volume 92.8 fL (80.0-100.0); Mean Platelet Volume 9.4 fL (9.4-12.4); Monocytes # (auto) 0.91 K/uL (0.11-0.59); Monocytes % (auto) 13.9 %; Neutrophils # (auto) 3.84 K/uL (1.40-6.50); Neutrophils % (auto) 58.3 %; Platelet Count 159 K/uL (130-400); RDW Coefficient of Variation 14.2 % (11.5-14.5); RDW Standard Deviation 48.9 fL (36.4-46.3); Red Blood Count 4.32 M/uL (4.20-5.40); White Blood Count 6.57 K/ul (4.8-10.8)
[2023-05-02 18:59] LABS: Anion Gap 11 (3-11); Bilirubin,Total 1.1 mg/dl (0.2-1.0); Calcium 9.4 mg/dl (8.6-10.3); Carbon Dioxide 25 mmol/L (21-32); Chloride 86 mmol/L (98-107); Magnesium 1.3 mg/dl (1.7-2.4); Potassium 3.9 mmol/L (3.5-5.1); Sodium 122 mmol/L (136-145)
[2023-05-02 19:05] LABS: Alanine Aminotransferase 13 U/L (7-52); Albumin Globulin Ratio 1.1 (0.9-2); Alkaline Phosphatase 135 U/L (34-104); Aspartate Aminotransferase 30 U/L (13-39); BUN Creatinine Ratio 9.1 (10-20); Blood Urea Nitrogen 4 mg/dl (6-23); Est GFR (African American) 118.5 ml/min; Est GFR (Non-African American) 102.3 ml/min; Globulin 3.7 gm/dl (2.5-4.0); Glucose 108 mg/dl (70-99(Fasting)); Total Protein 7.7 gm/dl (6.0-8.3)
--- NOTE | 2023-05-02 19:18 | Emergency Department Note ---
Impression & Plan Hyponatremia, Hypomagnesemia, Seizures, Subtherapeutic international normalized ratio (INR) ED Provider Note ED Provider Note NAME: ELEN CROWDER AGE:68 SEX: Female : 1955 ARRIVES VIA: Private vehicle INFORMANT: Patient, family ED PROVIDER(s): Oksana Valdes DO CHIEF COMPLAINT: Referred by PCP, abnormal outpatient labs HPI: This is a 68-year-old female who presents emergency department after being contacted by her PCP today and told to come to the ER emergently due to a very low sodium level that was noted on outpatient labs for her upcoming routine appointment. Family bedside states the patient has been getting evaluated for seizures over the course of the last year. They state she has previously been told her sodium was low over the course of the last year additionally but were never told that her seizures were from low sodium. They state they do not know why she has seizures. He states they happen about twice a month. They state her last seizure was 2 weeks ago. She states she has had an MRI and EEG but has not seen a neurologist. They state no recent change in medication, she does take losartan for hypertension. Family states patient takes warfarin due to history of atrial fibrillation. PAST MEDICAL HISTORY:See Below PAST SURGICAL HISTORY:See Below FAMILY HISTORY:See Below SOCIAL HISTORY:See Below HOME MEDICATIONS:See Below ALLERGIES:See Below VITALS:See Below PHYSICAL EXAMINATION: GENERAL: alert, well appearing, well nourished, no distress, non-toxic EYE EXAM: normal conjunctiva, PERRL and EOM's grossly intact OROPHARYNX: no exudate, no erythema, lips, buccal mucosa, and tongue normal and mucous membranes are moist NECK: supple, no nuchal rigidity, no adenopathy, non-tender LUNGS: Clear to auscultation. Normal chest wall mechanics, no w/r/r HEART: no murmurs, S1 normal and S2 normal ABDOMEN: abdomen soft, non-tender, normo-active bowel sounds, no masses, no rebound or guarding. BACK: Back is symmetrical on inspection and there is no deformity, no midline tenderness, no CVA tenderness. SKIN: no rashes, petechiae, orbruising UPPER EXTREMITIES: upper extremities are grossly normal. FROM, nml pulses b/l. LOWER EXTREMITIES: No pitting edema. FROM, nml pulses b/l. NEURO EXAM: Normal sensorium, cranial nerves II-XII grossly intact, normal speech, no facial droop,nogross weakness of arms, no gross weakness of legs. Gross sensation intact. No ataxia. Vital Signs: reviewed and remarkable Differential Diagnosis: infection, hypoglycemia, electrolyte abnormalities, dysrhythmia, ICH, mass, trauma, toxidrome, CVA, alcohol withdrawal as well as others were entertained. MEDICAL DECISION MAKING: This is a 68-year-old female presents emergency department after being referred here by her PCP due to concern for abnormal outpatient labs with significant hyponatremia. Patient with ongoing evaluation for seizures over the last year and does states she has previously been told she had hyponatremia. Labs drawn and sent, IV established, EKG performed at bedside interpreted by me and patient monitored on telemetry. She was sent for CT head additionally as a precaution which was reassuring. Repeat labs here did show significant hyponatremia at 122 as well as hypomagnesemia. Patient's INR subtherapeutic as well as she uses warfarin due to history of atrial fibrillation. Patient started on gentle IV fluid rehydration as she also appeared clinically dehydrated and was started on IV magnesium repletion. We discussed results at bedside as well as need for additional evaluation. Case discussed with hospitalist for additional evaluation and treatment. On review of EMR, patient's sodium today much lower than prior episodes although she does seem to have a history of mild hyponatremia. It is unclear if this is the etiology of her seizures. No brain MRI or EEG noted on brief review of EMR and [employer] system. Consultation(s): 193: Discussed with Dr. Alvarado, [facility] hospitalist, for additional evaluation and treatment. ER Treatment Provided: See below Diagnostics Interpreted By Me: -ECG: Atrial fibrillation at a rate of 75, normal axis, normal intervals, nonspecific ST/T wave changes -Cardiac Monitoring: An order was placed for continuous cardiac monitoring. The monitor shows a rate of 82 with normal sinus rhythm. -Laboratory studies: As stated above and show below. -Imaging studies: ct head: no obvious ICH Triage Nursing Note Reviewed Prior/Outside Records Reviewed-outpatient labs from earlier today reviewed Critical care: Critical care of 35 min performed to assess and manage high likelihood of life- threatening hyponatremia, involving labs and imaging performed with assessment to evaluate hyponatremia diagnosis with frequent reassessment. This time includes bedside time, treatment discussions with patient/family/consultants, documentation time and excludes procedure time. Past Med/Surg History Medical History On anticoagulant therapy warfarin daily Chronic diastolic (congestive) heart failure Hypomagnesemia Hyponatremia chronically low. Liver enzyme elevation Cancer LEFT BREAST (CHEMO AND RADIATION) Anemia Migraine Left ventricular enlargement BEING MONITORED BY ASHLY DUMONT Hypertension Chronic obstructive pulmonary disease Afib on warfarin/metoprolol---follows with Dr. Valdez Tobacco use disorder Surgical History History of bilateral cataract extraction History of surgery right femur fx repair 11/24/18 @ [facility] Hx of shoulder surgery RT SHOULDER (S/P FX) History of section X1 History of colonoscopy History of partial mastectomy LEFT History of tooth extraction Family History Other Cancer Heart disease No family history of adverse response to anesthesia Social History Smoking Status: Current every day smoker Tobacco Type: Cigarettes and E-cigarettes / Vaping Cigarettes Per Day: 20 (advised); Second Hand Exposure: Yes; Do You Dip or Chew Tobacco: No; Hx Alcohol Use: Yes Alcohol type: beer Alcohol Intake Frequency: 4 or More x per/Week Hx Substance Use: No Preferred Language: Wallisian Communication Ability: Effective [place] Reo Required: No Beliefs That Will Affect Care: None marital status: Current Living Situation: Spouse How many Children do You have: 3 Feels Safe at Home: Yes Assistive Devices: Glasses Allergies Allergies Allergy/AdvReac Type Severity Reaction Status Date / Time Sulfa (Sulfonamide Allergy Intermediate Rash Verified 05/02/23 20:04 Antibiotics) trimethoprim Allergy Intermediate Rash Verified 05/02/23 20:04 Home Meds Home Medications Medication Instructions Recorded Confirmed folic acid 400 mcg tablet 0.4 mg PO DAILY 01/02/20 05/02/23 thiamine HCl (vitamin B1) 100 mg 100 mg PO QAM 01/02/20 05/02/23 tablet (Vitamin B-1) ammonium lactate 12 % lotion 1 applic topical DAILY 08/09/22 05/02/23 rosuvastatin 10 mg tablet 10 mg PO QAM 08/09/22 05/02/23 acetaminophen 500 mg tablet 500 mg PO DIRECTED PRN Pain 05/02/23 05/02/23 (Tylenol Extra Strength) albuterol sulfate 2.5 mg/3 mL 2.5 mg inhalation DIRECTED PRN 05/02/23 05/02/23 (0.083 %) solution for nebulization NEEDED fluticasone fur. 100 mcg-umeclid 1 inh inhalation DAILY 05/02/23 05/02/23 62.5 mcg-vilant 25 mcg inhalat.powder (Trelegy Ellipta) lidocaine 5 % topical patch 1 patch topical DAILY PRN Pain 05/02/23 05/02/23 losartan 25 mg tablet 25 mg PO QAM 05/02/23 05/02/23 magnesium oxide 200 mg PO DAILY 05/02/23 05/02/23 metoprolol succinate 50 mg 50 mg PO QAM 05/02/23 05/02/23 tablet,extended release 24 hr trazodone 100 mg tablet 100 mg PO HS 05/02/23 05/02/23 warfarin 10 mg tablet See Rx Instructions .Route .COMPLEX 05/02/23 05/02/23 Results & Data (ED) Vital Signs Vital Signs - 24 hr 05/02/23 18:17 05/02/23 18:45 05/02/23 18:46 Temperature 36.7 C Temperature Source Temporal Artery Scan Pulse Rate 85 80 Pulse Rate [Apical] 88 Respiratory Rate 18 18 16 Respiratory Effort / Characteristics Non-Labored Non-Labored Spontaneous Respiratory Depth Normal Normal Respiratory Pattern Regular Blood Pressure 174/75 H Blood Pressure [Right Arm] 166/80 H Blood Pressure Mean 108 Blood Pressure Mean [Right Arm] 108 Pulse Oximetry 96 97 97 Oxygen Delivery Method Room Air Room Air Room Air Sepsis Recent Fever Within 48 Hours No Sepsis New/Unexplained Change in Mental Status No Sepsis Action Taken by Nursing No Action Required 05/02/23 19:47 05/02/23 20:00 05/02/23 20:30 Temperature Temperature Source Pulse Rate 82 92 H Pulse Rate [Apical] Respiratory Rate 23 31 H Respiratory Effort / Characteristics Respiratory Depth Respiratory Pattern Blood Pressure 162/83 H 145/81 H 151/84 H Blood Pressure [Right Arm] Blood Pressure Mean 109 102 106 Blood Pressure Mean [Right Arm] Pulse Oximetry 99 98 Oxygen Delivery Method Room Air Room Air Sepsis Recent Fever Within 48 Hours Sepsis New/Unexplained Change in Mental Status Sepsis Action Taken by Nursing Laboratory Data 05/02/23 18:30 05/02/23 23:27 Lab Results 05/02/23 05/02/23 Range/Units 18:30 19:38 WBC 6.57 (4.8-10.8) K/ul RBC 4.32 (4.20-5.40) M/uL Hgb 14.3 (12.0-16.0) g/dl Hct 40.1 (37.0-47.0) % MCV 92.8 (80.0-100.0) fL MCH 33.1 (25.0-34.0) pg MCHC 35.7 (32.0-36.0) g/dL RDW Std Deviation 48.9 H (36.4-46.3) fL RDW Coeff of Saw 14.2 (11.5-14.5) % Plt Count 159 (130-400) K/uL MPV 9.4 (9.4-12.4) fL Immature Gran % (Auto) 0.5 % Neut % (Auto) 58.3 % Lymph % (Auto) 26.0 % Mayes % (Auto) 13.9 % Eos % (Auto) 0.5 % Baso % (Auto) 0.8 % Neut # (Auto) 3.84 (1.40-6.50) K/uL Lymph # (Auto) 1.71 (1.20-3.40) K/uL Mayes # (Auto) 0.91 H (0.11-0.59) K/uL Eos # (Auto) 0.03 (0.00-0.50) K/uL Baso # (Auto) 0.05 (0.00-0.20) K/uL Immature Gran # (Auto) 0.03 (0.01-0.20) K/uL PT 15.9 H (9.0-12.0) Seconds INR 1.5 H (0.9-1.1) APTT 36 H (21-31) Seconds PTT Ratio 1.3 Sodium 122 L (136-145) mmol/L Potassium 3.9 (3.5-5.1) mmol/L Chloride 86 L (98-107) mmol/L Carbon Dioxide 25 (21-32) mmol/L Anion Gap 11 (3-11) BUN 4 L (6-23) mg/dl Creatinine 0.44 L (0.6-1.2) mg/dl Est Cr Clr Drug Dosing Not Reportable Est GFR ( Amer) 118.5 ml/min Est GFR (Non-Af Amer) 102.3 ml/min BUN/Creatinine Ratio 9.1 L (10-20) Glucose 108 H (70-99(Fasting)) mg/dl Calcium 9.4 (8.6-10.3) mg/dl Magnesium 1.3 L (1.7-2.4) mg/dl Total Bilirubin 1.1 H (0.2-1.0) mg/dl AST 30 (13-39) U/L ALT 13 (7-52) U/L Alkaline Phosphatase 135 H (34-104) U/L Troponin I High Sens 6.0 (0-14) pg/ml Total Protein 7.7 (6.0-8.3) gm/dl Albumin 4.0 (3.4-5.0) gm/dl Globulin 3.7 (2.5-4.0) gm/dl Albumin/Globulin Ratio 1.1 (0.9-2) TSH 6.160 H (0.300-4.500) uIu/ml Free T4 0.90 (0.61-1.60) ng/dl Urine Color Yellow Urine Appearance Clear (Clear) Urine pH 8.0 H (4.5-7.5) Ur Specific [place] 1.003 (1.000-1.030) Urine Protein Negative (Negative) Urine Glucose (UA) Negative (Negative) Urine Ketones Negative (Negative) Urine Blood Trace H (Negative) Urine Nitrite Negative (Negative) Urine Bilirubin Negative (Negative) Urine Urobilinogen Negative (Negative) Ur Leukocyte Esterase Negative (Negative) Urine WBC (Auto) 1-5 (0-5) /hpf Urine RBC (Auto) 0-4 (0-4) /hpf U Hyaline Cast (Auto) 1-5 (0-5) /lpf U Epithel Cells (Auto) 0-5 (0-5) /lpf Urine Bacteria (Auto) Negative (Negative) Ethyl Alcohol mg/dL < 10.0 (<10.0) mg/dl Lyme Disease IgG Ab Negative (Negative) Lyme Disease IgM Ab Negative (Negative) Administered Medications Heparin Sodium (Porcine) (Heparin Sod 5,000 Unit/0.5 Ml Vial) 5,000 units SQ Q8 PENDING SALE TO [facility] Stop: 06/01/23 21:59 Last Admin: 05/02/23 22:17 Dose: 5,000 units Documented By: WILFREDO Sodium Chloride (Nss) 1,000 mls @ 50 mls/hr IV .Q20H PENDING SALE TO [facility] Stop: 06/01/23 21:37 Last Admin: 05/02/23 22:10 Dose: 50 mls/hr Documented By: WILFREDO Miscellaneous (Remove Lidoderm Patch) 1 each N/A DAILY@2100 PENDING SALE TO [facility] Stop: 06/01/23 21:37 Last Admin: 05/02/23 22:46 Dose: Not Given Documented By: WILFREDO Trazodone HCl (Trazodone Hcl 100 Mg Tab) 100 mg PO HS PENDING SALE TO [facility] Stop: 06/01/23 21:37 Last Admin: 05/02/23 22:20 Dose: 100 mg Documented By: WILFREDO Warfarin Sodium (Warfarin Sod 5 Mg Tab) 5 mg PO Tu@1600 PENDING SALE TO [facility] Stop: 06/01/23 21:59 Last Admin: 05/02/23 22:47 Dose: Not Given Documented By: WILFREDO Discontinued Medications Gabapentin (Gabapentin 600 Mg Tab) 1,200 mg PO NOW ONE Stop: 05/02/23 21:39 Last Admin: 05/02/23 22:16 Dose: 1,200 mg Documented By: WILFREDO Sodium Chloride (Nss) 500 mls @ 80 mls/hr IV .Q6H15M PENDING SALE TO [facility] Stop: 06/01/23 19:29 Last Infusion: 05/02/23 21:55 Dose: Infused Documented By: Admin: 05/02/23 20:06 Dose: 80 mls/hr Documented By: JANET Magnesium Sulfate/Dextrose (Magnesium Sulfate / D5w) 1 gm in 100 mls @ 100 mls/hr IV Q1H PENDING SALE TO [facility] Stop: 05/02/23 21:18 Last Infusion: 05/02/23 23:47 Dose: Infused Documented By: Admin: 05/02/23 22:08 Dose: 100 mls/hr Documented By: Infusion: 05/02/23 21:58 Dose: Infused Documented By: Admin: 05/02/23 20:06 Dose: 100 mls/hr Documented By: JANET Thiamine HCl 100 mg/ Syringe 10 mls @ 2 mls/min IV ONE ONE Stop: 05/02/23 21:04 Last Admin: 05/02/23 21:02 Dose: 2 mls/min Documented By: JANET Warfarin Sodium (Warfarin Sod 7.5 Mg Tab) 7.5 mg PO NOW STA Stop: 05/02/23 20:41 Last Admin: 05/02/23 21:02 Dose: 7.5 mg Documented By: JANET Imaging Data Radiologist's Impression: Head CT 05/02/23 19:18 Exam(s): CT HEAD Without Contrast EXAM: CT Head Without Intravenous Contrast CLINICAL HISTORY: Reason for exam: seizure, hyponatremia. TECHNIQUE: Axial computed tomography images of the head/brain without intravenous contrast. CTDI is 36.38 mGy and DLP is 625.8 mGy-cm. Automated exposure control was utilized for the study. A dose lowering technique was utilized adhering to the principles of ALARA. COMPARISON: No relevant prior studies available. FINDINGS: No acute intracranial hemorrhage. No midline shift or mass effect. The territorial robertson-white matter differentiation is maintained throughout. Age-related cerebral volume loss. Periventricular and subcortical white matter hypoattenuation, consistent with chronic microangiopathy. The visualized orbits appear grossly unremarkable. The calvarium is intact. The visualized paranasal sinuses and mastoid air cells are grossly clear. IMPRESSION: No acute intracranial hemorrhage, midline shift, or mass effect. Electronically signed by: Sreedhar Lopes MD 05/02/23 20:10 PM Discharge Plan Visit Data Chief Complaint: Abnormal Labs/Diagnostic Testing Stated Complaint: SODIUM LEVEL LOW, FAST HEART RATE ED Provider: Oksana Valdes Discharge Problem: Hyponatremia, Hypomagnesemia, Seizures, Subtherapeutic international normalized ratio (INR) Patient Disposition: Admitted As Inpatient Discharge Instructions Interventions: ED Discharge Assessment Last Done: 05/02/23 21:16
[2023-05-02 19:20] LABS: INR 1.5 (0.9-1.1); Partial Thromboplastin Ratio 1.3; Partial Thromboplastin Time 36 Seconds (21-31); Prothrombin Time 15.9 Seconds (9.0-12.0)
[2023-05-02 19:26] LABS: Lyme Ab IgG w/WB Rflx Negative (Negative); Lyme Ab IgM w/WB Rflx Negative (Negative)
[2023-05-02] MEDS ORDERED: SODIUM CHLORIDE 0.9% 500 ML IV SCH (19:30)
[2023-05-02 19:55] LABS: Appearance Urine Clear (Clear); Bilirubin Urine Negative (Negative); Blood Urine Trace (Negative); Color Urine Yellow; Glucose Urine UA Negative (Negative); Ketones Urine Negative (Negative); Leukocyte Esterase Urine Negative (Negative); Nitrite Urine Negative (Negative); Protein Urine Negative (Negative); Specific Gravity Urine 1.003 (1.000-1.030); Urobilinogen Urine Negative (Negative)
[2023-05-02] MEDS: MAGNESIUM SULFATE / D5W 1 GM/100 ML BAG IV SCH ×2 (20:06→22:08)
[2023-05-02 20:11] LABS: Epithelial Cell Urine Auto 0-5 /lpf (0-5); RBC Urine Automated 0-4 /hpf (0-4)
--- NOTE | 2023-05-02 20:11 | CT Scan Report ---
Exam(s): CT HEAD Without Contrast EXAM: CT Head Without Intravenous Contrast CLINICAL HISTORY: Reason for exam: seizure, hyponatremia. TECHNIQUE: Axial computed tomography images of the head/brain without intravenous contrast. CTDI is 36.38 mGy and DLP is 625.8 mGy-cm. Automated exposure control was utilized for the study. A dose lowering technique was utilized adhering to the principles of ALARA. COMPARISON: No relevant prior studies available. FINDINGS: No acute intracranial hemorrhage. No midline shift or mass effect. The territorial robertson-white matter differentiation is maintained throughout. Age-related cerebral volume loss. Periventricular and subcortical white matter hypoattenuation, consistent with chronic microangiopathy. The visualized orbits appear grossly unremarkable. The calvarium is intact. The visualized paranasal sinuses and mastoid air cells are grossly clear. IMPRESSION: No acute intracranial hemorrhage, midline shift, or mass effect. Electronically signed by: Sreedhar Lopes MD 05/02/23 20:10 PM
[2023-05-02 20:12] LABS: Bacteria Urine Automated Negative (Negative)
[2023-05-02] MEDS ORDERED: WARFARIN SOD 7.5 MG TAB PO STA (20:40)
--- NOTE | 2023-05-02 20:53 | History & Physical Report ---
Date of Service May 02, 2023 Assessment & Plan (1) Hyponatremia: Plan: 68-year-old female with past medical significant for hyperlipidemia, COPD, lung nodules, pulmonary hypertension, peripheral artery disease, chronic diastolic CHF, hypertension, chronic atrial fibrillation, protein calorie malnutrition, essential tremor, alcoholism, neuropathy, depression, ongoing tobacco abuse, history of breast cancer, general anxiety disorder, who was sent in because outpatient labs showed hyponatremia. Hyponatremia Sodium of 122 Sodium usually around 130s Ongoing alcoholism Will check urine osmolality, urine sodium levels and serum osmolality BMP every 6 hours Gentle fluids Close monitoring Slow correction Nephro consult in a.m. Seizures Patient's status had seizure-like activity couple of weeks ago Possible from alcohol withdrawal seizure or from hyponatremia Will get EEG IV Ativan as needed for breakthrough seizures Neuroconsult in a.m. Alcoholism Says currently drinking 2-3 beers daily Will give IV thiamine Continue home thiamine and folic acid Alcohol withdrawal protocol with gabapentin and IV Ativan as needed Close monitor History of COPD Continue home inhalers Ongoing tobacco abuse Needs counseling Chronic diastolic CHF Valvular heart disease with moderate to severe MR Follows with cardiology History of atrial fibrillation On metoprolol succinate and Coumadin INR subtherapeutic 1.5 Questionable compliance with Coumadin Will closely monitor History of severe peripheral vascular disease Vascular surgery recommend intervention but patient seems declined as per epic On Coumadin and statin Hypertension On losartan and metoprolol Will monitor Hyperlipidemia On statin Depression and anxiety Trazodone History of breast cancer S/p chemo and radiation and surgery DVT prophylaxis On Coumadin INR 1.5 Heparin subcu until INR therapeutic Disposition Telemetry Full code History of Present Illness Chief Complaint: Hyponatremia Primary Care Provider: MARU Matias 68-year-old female with past medical significant for hyperlipidemia, COPD, lung nodules, pulmonary hypertension, peripheral artery disease, chronic diastolic CHF, hypertension, chronic atrial fibrillation, protein calorie malnutrition, essential tremor, alcoholism, neuropathy, depression, ongoing tobacco abuse, history of breast cancer, general anxiety disorder, who was sent in because outpatient labs showed hyponatremia. Patient labs here in the ER are 122. Patient is also thinks she had like seizure-like activity but a couple of weeks ago. Has some headache. No blurred visions. No runny nose. No sore throat. Has chronic cough from her smoking. Chronic shortness of breath, smoking. Appetite is okay. No difficulty swallowing. No chest pain. No nausea. No abdominal pain. Normal bowel and bladder movements. Currently resting comfortably and hemodynamically stable. Past medical history. As mentioned above Past surgical history. Left breast biopsy.Left axillary lymph node biopsy. C- section. Colonoscopy with biopsy. Excision of right breast lesion. Cataract surgery. Ligation of oviducts. Left partial mastectomy. Right trochanter fracture repair. Social history. . Smokes 1 pack a day for 44 years. Alcohol currently drinking 2-3 beers daily. No drug use. Family history. Mother had rheumatoid arthritis. A-fib. Pacemaker. Father had diabetes. Prostate cancer. Sister had breast cancer Allergies Allergy/AdvReac Type Severity Reaction Status Date / Time Sulfa (Sulfonamide Allergy Intermediate Rash Verified 05/02/23 20:04 Antibiotics) trimethoprim Allergy Intermediate Rash Verified 05/02/23 20:04 Home Medications Medication Instructions Recorded Confirmed Type folic acid 400 mcg tablet 0.4 mg PO DAILY 01/02/20 05/02/23 History thiamine HCl (vitamin B1) 100 mg 100 mg PO QAM 01/02/20 05/02/23 History tablet (Vitamin B-1) ammonium lactate 12 % lotion 1 applic topical DAILY 08/09/22 05/02/23 History rosuvastatin 10 mg tablet 10 mg PO QAM 08/09/22 05/02/23 History acetaminophen 500 mg tablet 500 mg PO DIRECTED PRN Pain 05/02/23 05/02/23 History (Tylenol Extra Strength) albuterol sulfate 2.5 mg/3 mL 2.5 mg inhalation DIRECTED PRN 05/02/23 05/02/23 History (0.083 %) solution for nebulization NEEDED fluticasone fur. 100 mcg-umeclid 1 inh inhalation DAILY 05/02/23 05/02/23 History 62.5 mcg-vilant 25 mcg inhalat.powder (Trelegy Ellipta) lidocaine 5 % topical patch 1 patch topical DAILY PRN Pain 05/02/23 05/02/23 History losartan 25 mg tablet 25 mg PO QAM 05/02/23 05/02/23 History magnesium oxide 200 mg PO DAILY 05/02/23 05/02/23 History metoprolol succinate 50 mg 50 mg PO QAM 05/02/23 05/02/23 History tablet,extended release 24 hr trazodone 100 mg tablet 100 mg PO HS 05/02/23 05/02/23 History warfarin 10 mg tablet See Rx Instructions .Route .COMPLEX 05/02/23 05/02/23 History Past Med/Surg History Medical History Afib on warfarin/metoprolol---follows with Dr. Valdez Anemia Cancer LEFT BREAST (CHEMO AND RADIATION) Chronic diastolic (congestive) heart failure Chronic obstructive pulmonary disease Hypertension Hypomagnesemia Hyponatremia chronically low. Left ventricular enlargement BEING MONITORED BY ASHLY DUMONT Liver enzyme elevation Migraine On anticoagulant therapy warfarin daily Tobacco use disorder Surgical History History of bilateral cataract extraction History of section X1 History of colonoscopy History of partial mastectomy LEFT History of surgery right femur fx repair 11/24/18 @ [facility] [place] History of tooth extraction Hx of shoulder surgery RT SHOULDER (S/P FX) Family History Other Cancer Heart disease No family history of adverse response to anesthesia Social History Smoking Status: Current every day smoker Tobacco Type: Cigarettes and E-cigarettes / Vaping Cigarettes Per Day: 20 (advised); Second Hand Exposure: Yes; Do You Dip or Chew Tobacco: No; Hx Alcohol Use: Yes Alcohol type: beer Alcohol Intake Frequency: 4 or More x per/Week Hx Substance Use: No Preferred Language: Lebanese Communication Ability: Effective 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 ENT- oropharynx clear Neck- supple, no JVD. Lungs- clear to auscultation no wheezing or crackles. Heart- regular rhythm; no murmur, no gallop. Abdomen- normal bowel sounds, soft, nontender, no distension Extremities- no pretibial edema, no erythema Neuro- alert, oriented x 3; PERRL, no facial palsy; no dysarthria; moves extremities. Skin- warm & dry Results & Data Results & Data Vital Signs (Past 12 Hours) Vital Signs Temp Pulse Pulse Resp BP BP Pulse Ox 05/02/23 20:00 82 23 145/81 H 99 05/02/23 19:47 162/83 H 05/02/23 18:46 80 16 97 05/02/23 18:45 88 18 166/80 H 97 05/02/23 18:17 36.7 C 85 18 174/75 H 96 O2 Del Method 05/02/23 20:00 Room Air 05/02/23 19:47 05/02/23 18:46 Room Air 05/02/23 18:45 Room Air 05/02/23 18:17 Room Air Diagnostic Findings Laboratory Results WBC 6.57 K/ul (4.8-10.8) 05/02/23 18:30 RBC 4.32 M/uL (4.20-5.40) 05/02/23 18:30 Hgb 14.3 g/dl (12.0-16.0) 05/02/23 18:30 Hct 40.1 % (37.0-47.0) 05/02/23 18:30 MCV 92.8 fL (80.0-100.0) 05/02/23 18:30 MCH 33.1 pg (25.0-34.0) 05/02/23 18:30 MCHC 35.7 g/dL (32.0-36.0) 05/02/23 18:30 RDW Std Deviation 48.9 fL (36.4-46.3) H 05/02/23 18:30 RDW Coeff of Saw 14.2 % (11.5-14.5) 05/02/23 18:30 Plt Count 159 K/uL (130-400) 05/02/23 18:30 MPV 9.4 fL (9.4-12.4) 05/02/23 18:30 Immature Gran % (Auto) 0.5 % 05/02/23 18:30 Neut % (Auto) 58.3 % 05/02/23 18:30 Lymph % (Auto) 26.0 % 05/02/23 18:30 [place] % (Auto) 13.9 % 05/02/23 18:30 Eos % (Auto) 0.5 % 05/02/23 18:30 Baso % (Auto) 0.8 % 05/02/23 18:30 Neut # (Auto) 3.84 K/uL (1.40-6.50) 05/02/23 18:30 Lymph # (Auto) 1.71 K/uL (1.20-3.40) 05/02/23 18:30 [place] # (Auto) 0.91 K/uL (0.11-0.59) H 05/02/23 18:30 Eos # (Auto) 0.03 K/uL (0.00-0.50) 05/02/23 18:30 Baso # (Auto) 0.05 K/uL (0.00-0.20) 05/02/23 18:30 Immature Gran # (Auto) 0.03 K/uL (0.01-0.20) 05/02/23 18:30 PT 15.9 Seconds (9.0-12.0) H 05/02/23 18:30 INR 1.5 (0.9-1.1) H 05/02/23 18:30 APTT 36 Seconds (21-31) H 05/02/23 18:30 PTT Ratio 1.3 05/02/23 18:30 Sodium 122 mmol/L (136-145) L 05/02/23 18:30 Potassium 3.9 mmol/L (3.5-5.1) 05/02/23 18:30 Chloride 86 mmol/L (98-107) L 05/02/23 18:30 Carbon Dioxide 25 mmol/L (21-32) 05/02/23 18:30 Anion Gap 11 (3-11) 05/02/23 18:30 BUN 4 mg/dl (6-23) L 05/02/23 18:30 Creatinine 0.44 mg/dl (0.6-1.2) L 05/02/23 18:30 Est Cr Clr Drug Dosing Not Reportable 05/02/23 18:30 Est GFR ( Amer) 118.5 ml/min 05/02/23 18:30 Est GFR (Non-Af Amer) 102.3 ml/min 05/02/23 18:30 BUN/Creatinine Ratio 9.1 (10-20) L 05/02/23 18:30 Glucose 108 mg/dl (70-99(Fasting)) H 05/02/23 18:30 Calcium 9.4 mg/dl (8.6-10.3) 05/02/23 18:30 Magnesium 1.3 mg/dl (1.7-2.4) L 05/02/23 18:30 Total Bilirubin 1.1 mg/dl (0.2-1.0) H 05/02/23 18:30 AST 30 U/L (13-39) 05/02/23 18:30 ALT 13 U/L (7-52) 05/02/23 18:30 Alkaline Phosphatase 135 U/L (34-104) H 05/02/23 18:30 Troponin I High Sens 6.0 pg/ml (0-14) 05/02/23 18:30 Total Protein 7.7 gm/dl (6.0-8.3) 05/02/23 18:30 Albumin 4.0 gm/dl (3.4-5.0) 05/02/23 18:30 Globulin 3.7 gm/dl (2.5-4.0) 05/02/23 18:30 Albumin/Globulin Ratio 1.1 (0.9-2) 05/02/23 18:30 TSH 6.160 uIu/ml (0.300-4.500) H 05/02/23 18:30 Free T4 0.90 ng/dl (0.61-1.60) 05/02/23 18:30 Urine Color Yellow 05/02/23 19:38 Urine Appearance Clear (Clear) 05/02/23 19:38 Urine pH 8.0 (4.5-7.5) H 05/02/23 19:38 Ur Specific [place] 1.003 (1.000-1.030) 05/02/23 19:38 Urine Protein Negative (Negative) 05/02/23 19:38 Urine Glucose (UA) Negative (Negative) 05/02/23 19:38 Urine Ketones Negative (Negative) 05/02/23 19:38 Urine Blood Trace (Negative) H 05/02/23 19:38 Urine Nitrite Negative (Negative) 05/02/23 19:38 Urine Bilirubin Negative (Negative) 05/02/23 19:38 Urine Urobilinogen Negative (Negative) 05/02/23 19:38 Ur Leukocyte Esterase Negative (Negative) 05/02/23 19:38 Urine WBC (Auto) 1-5 /hpf (0-5) 05/02/23 19:38 Urine RBC (Auto) 0-4 /hpf (0-4) 05/02/23 19:38 U Hyaline Cast (Auto) 1-5 /lpf (0-5) 05/02/23 19:38 U Epithel Cells (Auto) 0-5 /lpf (0-5) 05/02/23 19:38 Urine Bacteria (Auto) Negative (Negative) 05/02/23 19:38 Ethyl Alcohol mg/dL < 10.0 mg/dl (<10.0) 05/02/23 18:30 Lyme Disease IgG Ab Negative (Negative) 05/02/23 18:30 Lyme Disease IgM Ab Negative (Negative) 05/02/23 18:[address] 05/02/23 19:18 Exam(s): CT HEAD Without Contrast EXAM: CT Head Without Intravenous Contrast CLINICAL HISTORY: Reason for exam: seizure, hyponatremia. TECHNIQUE: Axial computed tomography images of the head/brain without intravenous contrast. CTDI is 36.38 mGy and DLP is 625.8 mGy-cm. Automated exposure control was utilized for the study. A dose lowering technique was utilized adhering to the principles of ALARA. COMPARISON: No relevant prior studies available. FINDINGS: No acute intracranial hemorrhage. No midline shift or mass effect. The territorial robertson-white matter differentiation is maintained throughout. Age-related cerebral volume loss. Periventricular and subcortical white matter hypoattenuation, consistent with chronic microangiopathy. The visualized orbits appear grossly unremarkable. The calvarium is intact. The visualized paranasal sinuses and mastoid air cells are grossly clear. IMPRESSION: No acute intracranial hemorrhage, midline shift, or mass effect. Electronically signed by: Sreedhar Lopes MD 05/02/23 20:10 PM ECG Additional Comments: ECG atrial fibrillation rate 75. No significant change was found. Code Status & VTE Plan VTE Prophylaxis Plan VTE Prophylaxis will be ordered: Yes
[2023-05-02] MEDS ORDERED: THIAMINE HCL 100 MG in SYRINGE 9 ML IV ONE (21:00)
[2023-05-02] MEDS ORDERED: LORazepam 3 MG in SYRINGE 1.5 ML IV PRN (21:38)
[2023-05-02] MEDS ORDERED: ALBUTEROL 0.083% NEBU SOLN 3 ML VIAL INH PRN ×2 (21:38→22:00)
[2023-05-02] MEDS ORDERED: GABAPENTIN 600 MG TAB PO ONE (21:38)
[2023-05-02] MEDS ORDERED: LORazepam 2 MG in SYRINGE 1 ML IV PRN (21:38)
[2023-05-02] MEDS ORDERED: Ativan IV Alcohol Withdrawal--Active Protocol IV PRN (21:38)
[2023-05-02] MEDS ORDERED: NITROGLYCERIN SL 0.4 MG/TAB TAB SL PRN (21:38)
[2023-05-02] MEDS ORDERED: POLYETHYLENE (MIRALAX) 17 GM PACK PO PRN (21:38)
[2023-05-02] MEDS ORDERED: GABAPENTIN 1200MG ALCOHOL WITHDRAWAL LOAD PO STA (21:38)
[2023-05-02] MEDS ORDERED: LORazepam 1 MG in SYRINGE 0.5 ML IV PRN (21:38)
[2023-05-02] MEDS ORDERED: LIDOCAINE 5% 1 PATCH TD PRN (21:38)
[2023-05-02] MEDS ORDERED: WARFARIN SOD 5 MG TAB PO SCH (22:00)
[2023-05-02] MEDS: SODIUM CHLORIDE 0.9% 1,000 ML IV SCH (22:10)
[2023-05-02] MEDS: HEPARIN SOD 5,000 UNIT/0.5 ML VIAL SQ SCH (22:17)
[2023-05-02] MEDS: traZODone HCL 100 MG TAB PO SCH (22:20)
[2023-05-03] MEDS: GABAPENTIN 600 MG TAB PO SCH ×3 (03:06→17:34)
[2023-05-03] MEDS: HEPARIN SOD 5,000 UNIT/0.5 ML VIAL SQ SCH ×3 (05:44→21:43)
[2023-05-03 05:51] LABS: Basophils # (auto) 0.04 K/uL (0.00-0.20); Basophils % (auto) 0.8 %; Eosinophils # (auto) 0.02 K/uL (0.00-0.50); Eosinophils % (auto) 0.4 %; Hematocrit (blood only) 36.4 % (37.0-47.0); Hemoglobin 12.6 g/dl (12.0-16.0); Immature Granulocytes # (auto) 0.01 K/uL (0.01-0.20); Immature Granulocytes % (auto) 0.2 %; Lymphocytes % (auto) 31.3 %; Mean Corpuscular Hemoglobin 32.8 pg (25.0-34.0); Mean Corpuscular Hgb Conc 34.6 g/dL (32.0-36.0); Mean Corpuscular Volume 94.8 fL (80.0-100.0); Mean Platelet Volume 9.8 fL (9.4-12.4); Monocytes # (auto) 0.66 K/uL (0.11-0.59); Monocytes % (auto) 13.8 %; Neutrophils # (auto) 2.56 K/uL (1.40-6.50); Neutrophils % (auto) 53.5 %; Platelet Count 132 K/uL (130-400); RDW Coefficient of Variation 14.3 % (11.5-14.5); RDW Standard Deviation 50.1 fL (36.4-46.3); Red Blood Count 3.84 M/uL (4.20-5.40); White Blood Count 4.79 K/ul (4.8-10.8)
[2023-05-03 06:06] LABS: BUN Creatinine Ratio 13.2 (10-20); Calcium 8.4 mg/dl (8.6-10.3); Est GFR (African American) 124.4 ml/min; Est GFR (Non-African American) 107.3 ml/min; Magnesium 1.7 mg/dl (1.7-2.4); Potassium 3.9 mmol/L (3.5-5.1)
[2023-05-03 06:25] LABS: INR 1.7 (0.9-1.1); Prothrombin Time 18.5 Seconds (9.0-12.0)
--- OUTSIDE RECORDS SUMMARY | 2023-05-03 07:27 | External Medical Summary ---
Author Name Unknown Address Unknown Organization [id number] [address] [place] [id number] Laboratory Report Ordering Provider Test Date Status KATHRIN NGUYEN 05/02/2023 14:24:31 Final Warfarin Therapy
INR: 2 .0-3.0 conventional anticoagulation
INR: 2.5- 3.5 high intensity anticoagulation Observation Date Value Abnormality Reference (Units ) Status PT 05/02/2023 14:24:31 15.8 Above high normal 11 .6-15.2 (seconds) Final INR 05/02/2023 14:24:31 1.2 0.8-1.2 Final Performing Location [facility] [address] [place] [id number]
--- OUTSIDE RECORDS SUMMARY | 2023-05-03 07:27 | External Medical Summary | Summary of Care ---
Author Name Unknown Organization [facility] Address [address] [address] Phone [phone] Care Team Providers Care Vibration Analyst Name Role Phone Stefani Britney MAHONEY Primary Care Provider Reason for Visit * Reason Onset Date Comments Medication Refill 04/12/2023 Encounter Details Date Type Department Care Team (Late st Contact Info) Description 04/12/2023 Refill Cardiology, [facility] [address] [place] [address] Monique Cuevas CRNP [address] [place] [address] Permanent atrial fibrillation (HCC); History of alcohol abuse; Tobacco abuse; HTN, goal below 140/90; Hyponatremia; Valvular heart disease; PAD (peripheral artery disease) (HCC); Dyslipidemia, goal LDL below 70; PURE HYPERCHOLESTEROLEM; Dyslipidemia, goal LDL below 130 Allergies Active Allergy Reactions Criticality Noted Date Comments Sulfa Antibiotics 11/03/2016 Trimethoprim 04/14/1997 rash documented as of this encounter (statuses as of 04/14/2023) Medications Medication Sig Dispensed Refills Start Date End Date Status Thiamine Mononitrate (VITAMIN B1) 100 MG TABS Take by mouth. 0 Active Folic Acid 400 MCG Tablet Take 1 Tablet by mouth in the morning. 0 Active Albuterol Sulfate (ALBUTEROL HFA) 108 (90 BASE) MCG/ACT inhaler Inhale 2 Puffs by mouth every 4 hours as needed for Shortness of Breath. 18 g 5 10/29/2019 Active Additional Information Patient not taking.Reported on 03/01/2023 Acetaminophen 325 MG CAPS Take 500 mg by mouth 2 times a day as needed for Pain, Mild or Pain, Moderate (Not to exceed 1000 mg per day). 0 Active Magnesium Oxide 200 MG Oral TabletIndications: pt takes every other day Take by mouth 1 Tablet daily . 0 10/30/2020 Active Jublia 10 % External Solution 0 08/25/2021 Active Ammonium Lactate 12 % External Lotion Apply to both feet once daily. Dispense 3 400g tubes. 400 g 0 06/29/2022 Active Trelegy Ellipta 100-62.5-25 MCG/ACT Aerosol Powder Breath Activated (Fluticasone-Umecl idinium-Vilanterol ) Inhale 1 Puff by mouth. 0 Active traMADol HCl 50 MG Oral Tablet (Ultram)Indication s:Lumbar degenerative disc disease Take 1 Tablet by mouth every 6 hours as needed for severe Pain 30 Tablet 0 12/23/2022 Active Additional Information Patient not taking.Reported on 03/01/2023 Baclofen 10 MG Oral Tablet (Lioresal)Indicati ons:Acute midline low back pain without sciatica Take 1 Tablet by mouth in the morning and 1 Tablet before bedtime. 20 Tablet 0 01/03/2023 Active Additional Information Patient not taking.Reported on 03/01/2023 Cyclobenzaprine HCl 5 MG Oral Tablet (Flexeril) take 1 tablet (5 MG) orally three times a day As Needed for muscle spasm 30 Tablet 0 01/13/2023 Active Additional Information Patient not taking.Reported on 03/01/2023 traMADol HCl 50 MG Oral Tablet (Ultram) take 1 tablet (50 mg) orally twice a day As Needed for pain 11 Tablet 0 01/13/2023 Active Additional Information Patient not taking.Reported on 03/01/2023 methylPREDNISolone 4 MG Oral Tablet Therapy Pack (Medrol Dosepack)Indicatio ns:Lumbar back pain follow package directions 21 Tablet 0 03/01/2023 Active Lidocaine 5 % External Patch (Lidoderm)Indicati ons:Compression deformity of vertebra Place 1 Patch over 12 hours topically on the skin daily. Place over area of pain from compression fracture. 30 Patch 1 04/10/2023 Active Losartan Potassium 25 MG Oral Tablet (Cozaar) Take 1 Tablet by mouth in the morning. 34 Tablet 8 04/14/2023 Active Metoprolol Succinate ER 50 MG Oral Tablet Extended Release 24 Hour (toPROL XL)Indications:Per manent atrial fibrillation (HCC),History of alcohol abuse,Tobacco abuse,HTN, goal below 140/90,Hyponatremi a,Valvular heart disease,PAD (peripheral artery disease) ([facility]),Dyslipidemia , goal LDL below 70 Take 1 Tablet by mouth in the morning. 90 Tablet 2 04/14/2023 Active Rosuvastatin Calcium 20 MG Oral Tablet (Crestor)Indicatio ns:Dyslipidemia, goal LDL below 160,Dyslipidemia, goal LDL below 130 Take 1 Tablet by mouth in the morning. 90 Tablet 2 04/14/2023 Active Metoprolol Succinate ER 50 MG Oral Tablet Extended Release 24 Hour (toPROL XL)Indications:Per manent atrial fibrillation (HCC),History of alcohol abuse,Tobacco abuse,HTN, goal below 140/90,Hyponatremi a,Valvular heart disease,PAD (peripheral artery disease) ([facility]),Dyslipidemia , goal LDL below 70 TAKE 1 TABLET EVERY MORNING 90 Tablet 3 10/27/2022 3 Discontinue d(Patient preference/ discontinua tion) Losartan Potassium 25 MG Oral Tablet (Cozaar) Take 1 Tablet by mouth in the morning. 34 Tablet 11 12/06/2022 3 Discontinue d(Patient preference/ discontinua tion) Rosuvastatin Calcium 20 MG Oral Tablet (Crestor)Indicatio ns:Dyslipidemia, goal LDL below 160,Dyslipidemia, goal LDL below 130 Take 1 Tablet by mouth in the morning. 90 Tablet 3 12/23/2022 3 Discontinue d(Patient preference/ discontinua tion) Warfarin Sodium 10 MG Oral Tablet (Coumadin) Take up to 1 tablet by mouth every evening as directed 30 Tablet 5 03/03/2023 3 Discontinue d(Patient preference/ discontinua tion) Hospital, Clinic, or Other Facility Administered Medication Ordered Dose Route Frequency Start Date End Date Status Albuterol Sulfate (Proventil) (2.5 MG/3ML) 0.083% inhalation solution 2.5 mgIndications:COPD, group B, by GOLD 2017 classification ([facility]) 2.5 mg NEBULIZER PRN 12/08/2022 12/08/2023 Acti ve Albuterol Sulfate (Proventil) (5 MG/ML) 0.5% *conc* inhalation solution 2.5 mgIndications:COPD, group B, by GOLD 2017 classification (HCC) 2.5 mg NEBULIZER PRN 12/08/2022 12/08/2023 Acti ve documented as of this encounter (statuses as of 04/14/2023) Active Problems Problem Noted Date Diagnosed Date Protein-calorie malnutrition 12/06/2022 Black tarry stools 09/30/2022 Chronic anticoagulation 09/30/2022 Chronic diastolic heart failure 02/23/2022 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 11/30/2021 CHENG (generalized anxiety disorder) 11/30/2021 COPD, group B, by GOLD 2017 classification 09/27 Overview: Per COPD GOLD Classification PAD (peripheral artery disease) 09/22/2021 Pain in both feet 08/24/2021 Neuropathy 08/24/2021 Unequal leg length 04/10/2020 Chronic atrial fibrillation 06/18/2019 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 06/18/2019 Non-rheumatic mitral regurgitation 01/09/2019 Alcohol abuse 12/31/2018 History of colon polyps 10/03/2018 History of breast cancer 10/03/2018 Overview: Overlapping sites of L breast-ER - History of pleural effusion 08/06/2018 PHT (pulmonary hypertension) 08/06/2018 Lung nodules 08/06/2018 History of alcohol abuse 12/11/2016 History of vertebral compression fracture 2016 Essential tremor 09/26/2016 Depression with anxiety 03/30/2016 Encounter for smoking cessation counseling 05/19 Dyslipidemia, goal LDL below 130 06/12/2013 Insomnia 07/10/2012 HTN, goal below 140/90 12/27/2011 ADVANCE DIRECTIVE INFORMATION 12/20/2005 Overview: Information offered-patient declined PURE HYPERCHOLESTEROLEM 03/24/2003 Overview: Per Lipid Taxonomy. Tobacco abuse 07/14/1997 documented as of this encounter (statuses as of 04/14/2023) Resolved Problems Problem Noted Date Diagnosed Date Resolved Date Grief at loss of child 11/30/202112/06 Centrilobular emphysema 09/22/2021 10/0 09/2021 Prediabetes 02/01/2021 11/03/2022 Overview: Per Prediabetes protocol COPD, severity to be determined 03/14/2017 09/30/2021 Overview: Per COPD GOLD Classification Radiation pneumonitis 09/26/20162018 Chronic atrial fibrillation 08/29/2016 12/11/2016 Persistent atrial fibrillation 08/24/2016 05/20/2021 Malignant neoplasm of left female breast 12/24/2015 10/03/2018 Cancer Staging:Clinical: Unsigned Pathologic:Stage IA(T1c, N0) - Unsigned Breast cancer, female 08/18/20152015 Pre-operative cardiovascular examination 05/06/2015 03/14/2017 Paroxysmal atrial fibrillation 05/06/2015 08/29/2016 Breast cancer, female 04/21/20152016 Adjustment disorder with depressed mood 07/10/2012 12/30/2015 Tremor 08/22/2011 03/22/2013 Alcohol ingestion, more than 4 drinks/day on alcohol screening 08/22/2011 03/22/2013 Elevated blood pressure, situational 09/20/2010 12/27/2011 Dyslipidemia, goal to be determined 04/30/2009 06/12/2013 Overview: Per Lipid Taxonomy. Benign neoplasm of colon 02/26/2007 Overview: hyperplastic repeat colonoscopy in 10 yrs Trigger finger 03/06/2001 03/14/2017 documented as of this encounter (statuses as of 04/14/2023) Immunizations Name Administration Dates Next Due COVID-19 mRNA, LNP-s, No Pre serve, 2-Dose Series ([employer]) 04/22/2021,08/25/2020,08/04/2020 Pneumococcal Conjugate Vacc, 13 Valent (Prevnar) 08/06/2018 Pneumococcal Conjugate Vaccine, 7 Valent 012 Pneumococcal Polysaccharide PPV23 (Pneumovax) 01/23/2020,12/27/2011 SEASONAL INFLUENZA, PF, 6 M & Above, IM , (FLULAVAL or FLUZONE) 03/06/2021,02/20/2018 Season Influenza, Quad, PF, Adjuvanted, 65+ Yrs, IM (FLUAD) 01/23/2020 Seasonal Influenza, Quadriva lent Hd (Fluzone Hd) 03/01/2023 Seasonal Influenza, Quadriva lent, No Preserve, IM 03/30/2016,03/02/2015 Seasonal Influenza, Split, I IV3, With Preserve, Inj 03/22/2013,06/11/2012,05/03/2010 Seasonal Influenza, Trivalen t, Adjuvanted, 65+ yrs 02/20/2019 TDAP (age 10 and older)(Boostrix) 01/11/2017 TDAP (age 11 and older)(Adacel) 01/30/2007 Varicella Zoster Vaccine (Adult) 04/12/2013 Zoster Vaccine Recombinant (Shingrix) 01/23/2020 ,06/18/2019 documented as of this encounter Social History Tobacco Use Types Packs/Day Years Used Date Smoking Tobacco: Every Day Cigarettes 1 44 Smokeless Tobacco: Never Comments:12/14/22 smokes abo ut 1 pack a day - refused pamphlet Alcohol Use Standard Drinks/Week Comments Yes 14 (1 standard drink = 0.6 oz pu re alcohol) Last alcohol intake 08/09/22 PHQ-2 Answer Date Recorded PHQ Adult Total Score 2 12/28/2020 Sex and Gender Information Value Date Recorded Sex Assigned at Female 09/22/2021 11:32 AM EDT Gender Identity Female 09/22/2021 11:32 AM EDT Sexual Orientation Straight 09/22/2021 11 :32 AM EDT Job Start Date Occupation Industry Not on file Not on file Not on file documented as of this encounter Miscellaneous Notes * Telephone Encounter - Marjorie Butterfield, [facility] - 04/14/2023 3:50 AM ESTSigned Prescriptions: Disp Refills Losartan Potassium 25 MG Oral Tablet (Coza*34 Tab*8 Sig: Take 1Tablet by mouth in the morning.Authorizing Provider: MONIQUE CUEVAS User: MARJORIE BUTTERFIELD Metoprolol Succinate ER 50 MG Oral Tablet *90 Tab*2 Sig: Take 1 Tablet by mouth in the morning.Authorizing Provider: MONIQUE CUEVAS User: MARJORIE BUTTERFIELD Rosuvastatin Calcium 20 MG OralTablet (Cr*90 Tab*2 Sig: Take 1 Tablet by mouth in the morning.Authorizing Provider: Annel CUEVAS User: MARJORIE BUTTERFIELD * Telephone Encounter - Luiza Johnson [facility] - 04/12/2023 1:56 PM EST Please reroute Rx to E [id number] And for 90 days Pending Prescriptions: Disp Refills Losartan Potassium 25 MG Oral Tablet (Coz*90 Tab*2 Sig: Take 1 Tablet by mouth in the morning. Metoprolol Succinate ER 50 MG Oral Tablet*90 Tab*2 Sig: Take 1 Tablet by mouth in the morning. In the morning.. Rosuvastatin Calcium 20 MG Oral Tablet (C*90 Tab*3 Sig: Take 1 Tablet by mouth in the morning. Warfarin Sodium 10 MG Oral Tablet (Coumad*90 Tab*0 Sig: Take up to 1 tablet by mouth every evening as directed Last Visit: 12/06/2022 (in office), 09/26/2019 (telemedicine) 05/02/2023 If no future appointments scheduled, and last appointment is greater than a year ago, please schedule patient for a follow-up appointment Last date the medication was ordered: [id number] Patient Phone Numbers Labs: Lab Results Component Value Date/Time CREAT 0.4 (L) 12/20/2022 10:34 AM CREAT 0.7 05/28/2020 12:13 PM POTASSIUM 4.7 12/20/2022 10:34 AM POTASSIUM 4.2 05/28/2020 12:13 PM TSH 3.49 08/24/2021 04:24 PM TSH 2.08 05/28/2020 12:13 PM LDLCALC 136 (H) 12/20/2022 10:34 AM LDLCALC 119 03/30/2016 09:10 AM LDLDIRECT 162 (H) 09/30/2020 01:49 PM LDLDIRECT 134 (H) 10/10/2019 04:23 PM ALT 19 12/20/2022 10:34 AM ALT 12 05/28/2020 12:13 PM HGBA1C 5.8 (H) 11/12/2021 02:19 PM HGBA1C 5.1 03/30/2016 09:10 AM documented in this encounter Plan of Treatment Upcoming Encounters Date Type Department Care Team (Late st Contact Info) Description 04/19/2023 9:50 AM EST Anticoagulation Pharmacy, [facility] [address] [facility] [place] [address] [facility] [address] [facility] [place] [address] 05/02/2023 1:30 PM EST Office Visit Cardiology, [facility] [address] [facility] [place] [address] Renetta Glynn, SAMI [address] [facility] [place] [address] 05/24/2023 1:00 PM EST Imaging Vascular Lab, [facility] 2nd Floor, [place] [address] [facility] [place] [address] 06/07/2023 2:10 PM EST Office Visit Vascular Surgery, [facility] [address] [facility] [place] [address] Killian Gan MD [address] [place] [address] 10/24/2023 3:00 PM EDT Office Visit Rheumatology [place] [id number] [place] [address] Kayla Jerome CRNP [address] [place] [place] [address] Scheduled Procedures Name Priority Associated Diagnoses Date/Ti me COLONOSCOPY FLEXIBLE PROXIMA L DIAGNOSTIC Recall Encounter for screening colonoscopy Health Maintenance Due Date Last Done Comments Hepatitis B (1 of 3 - Risk 3-dose series) 2013 Depression Screening 12/28/2021 12/28/2020 COVID-19 Vaccine ( season) 2023 04/22/2021, 08/25/2020, 08/04/2020 DISCUSS TOBACCO CESSATION (REFER TO SMARTSET #4366) 02/23/2023 02/23/2022 *NEPHROLOGY REFERRAL DUE TO RESISTANT HTN 02/28/2023 Mammogram 10/05/2023 10/04/2022, 10/21, 10/06/2020, Additional history exists COLONOSCOPY-ANNUAL AGES 18-100 12/02/2023 12/01/2022, 12/01/2022, 05/12/2017, Additional history exists GFR 12/21/2023 12/20/2022, 09/19, 08/19/2022, Additional history exists Albumin/Creatinine Ratio 01/02/2024 01/01/2021 O2 ASSESSMENT COMPLETED IN PAST YEAR FOR COPD 02/28/2024 02/27/2023 DXA Scan 12/31/2025 12/31/2018, 04/21, 05/08/2003 DTaP,Tdap,and Td Vaccines (3 - Td or Tdap) 01/11/2027 01/11/2017, 01/30/2007, 07/14/1997 Lipid Panel 12/21/2027 12/20/2022, 09/19, 01/01/2021, Additional history exists Pneumococcal Vaccine: 65+ Years Completed 01/23/2020, 08/06/2018, 12/27/2011 Zoster Vaccines Completed 01/23/2020, 05/23, 04/12/2013 Alpha-1 Antitrypsin Completed 02/28/2022 Fecal Occult Blood Test Discontinued 10/01/2022 Colonoscopy Discontinued 12/01/2022, 11/19, 05/12/2017, Additional history exists Colorectal Cancer Screening Discontinued Influenza Vaccine (FLU shot) Completed 03/01/2023, 03/06/2021, 01/23/2020, Additional history exists Cologuard Discontinued GARDASIL-HPV IMMUNIZATION SERIES Aged Out No longer eligible based on patient's age to complete this topic MENINGOCOCCAL (MENACTRA/MENVEO) Aged Out No longer eligible based on patient's age to complete this topic Sigmoidoscopy Discontinued documented as of this encounter Medical Devices Not on filedocumented as of this encounter Visit Diagnoses Diagnosis Permanent atrial fibrillation (HCC) Atrial fibrillation History of alcohol abuse Nondependent alcohol abuse, in remission Tobacco abuse Tobacco use disorder HTN, goal below 140/90 Unspecified essential hypertension Hyponatremia Hyposmolality and/or hyponatremia Valvular heart disease Endocarditis, valve unspecified, unspecified cause PAD (peripheral artery disease) (HCC) Peripheral vascular disease, unspecified Dyslipidemia, goal LDL below 70 Other and unspecified hyperlipidemia PURE HYPERCHOLESTEROLEM Other and unspecified hyperlipidemia Dyslipidemia, goal LDL below 130 Other and unspecified hyperlipidemia documented in this encounter Care Teams Vibration Analyst Relationship Specialty Start Date End Date Britney Ko CRNP [address] [place] [address] PCP - General Nurse Practitioner 09/22/21 documented as of this encounter
--- OUTSIDE RECORDS SUMMARY | 2023-05-03 07:27 | External Medical Summary | Summary of Care ---
Author Name Unknown Organization [facility] Address [address] [facility] [place] [address] Phone [phone] Care Team Providers Care Assistant Family Teacher Name Role Phone Britney Grigsby Primary Care Provider Reason for Visit * Reason Onset Date Comments Medication Refill 04/12/2023 Encounter Details Date Type Department Care Team (Late st Contact Info) Description 04/12/2023 Refill Family Practice [facility] [address] [place] [address] Britney Grigsby CRNP [address] [place] [address] Allergies Active Allergy Reactions Criticality Noted Date Comments Sulfa Antibiotics 11/03/2016 Trimethoprim 04/14/1997 rash documented as of this encounter (statuses as of 04/13/2023) Medications Medication Sig Dispensed Refills Start Date [...] 400g tubes. 400 g 0 06/29/2022 Active Metoprolol Succinate ER 50 MG Oral Tablet Extended Release 24 Hour (toPROL XL)Indications:Per manent atrial fibrillation ([facility]),History of alcohol abuse,Tobacco abuse,HTN, goal below 140/90,Hyponatremi a,Valvular heart disease,PAD (peripheral artery disease) ([facility]),Dyslipidemia , goal LDL below 70 TAKE 1 TABLET EVERY MORNING 90 Tablet 3 10/27/2022 Active Losartan Potassium 25 MG Oral Tablet (Cozaar) Take 1 Tablet by mouth in the morning. 34 Tablet 11 12/06/2022 Active Trelegy Ellipta 100-62.5-25 MCG/ACT Aerosol Powder Breath Activated (Fluticasone-Umecl idinium-Vilanterol ) Inhale 1 Puff by mouth. 0 Active traMADol HCl 50 MG Oral Tablet (Ultram)Indication s:Lumbar degenerative disc disease Take 1 Tablet by mouth every 6 hours as needed for severe Pain 30 Tablet 0 12/23/2022 Active Additional Information Patient not taking.Reported on 03/01/2023 Rosuvastatin Calcium 20 MG Oral Tablet (Crestor)Indicatio ns:Dyslipidemia, goal LDL below 160,Dyslipidemia, goal LDL below 130 Take 1 Tablet by mouth in the morning. 90 Tablet 3 12/23/2022 Active Baclofen 10 MG Oral Tablet (Lioresal)Indicati ons:Acute [...] Additional Information Patient not taking.Reported on 03/01/2023 Furosemide 20 MG Oral Tablet (Lasix) TAKE 1 TABLET BY MOUTH IN THE MORNING. 34 Tablet 5 03/01/2023 4 Active methylPREDNISolone 4 MG Oral Tablet Therapy Pack (Medrol Dosepack)Indicatio ns:Lumbar back pain follow package directions 21 Tablet 0 03/01/2023 Active Warfarin Sodium 10 MG Oral Tablet (Coumadin) Take up to 1 tablet by mouth every evening as directed 30 Tablet 5 03/03/2023 Active Lidocaine 5 % External Patch (Lidoderm)Indicati ons:Compression deformity of vertebra Place 1 Patch over 12 hours topically on the skin daily. Place over area of pain from compression fracture. 30 Patch 1 04/10/2023 Active traZODone HCl 100 MG Oral Tablet (Desyrel) Take 1 Tablet by mouth at bedtime. 90 Tablet 1 04/13/2023 Active traZODone HCl 100 MG Oral Tablet (Desyrel) Take 1 Tablet by mouth at bedtime. 30 Tablet 3 12/06/2022 3 Discontinue d(Refill) Hospital, Clinic, or Other Facility Administered Medication Ordered Dose Route Frequency Start Date End Date Status Albuterol Sulfate (Proventil) (2.5 MG/3ML) 0.083% inhalation solution 2.5 mgIndications:COPD, group B, by GOLD 2017 classification ([facility]) 2.5 mg NEBULIZER PRN 12/08/2022 12/08/2023 Acti ve Albuterol Sulfate (Proventil) (5 MG/ML) 0.5% *conc* inhalation solution 2.5 mgIndications:COPD, group B, by GOLD 2017 classification ([facility]) 2.5 mg NEBULIZER PRN 12/08/2022 12/08/2023 Acti ve documented as of this encounter (statuses as of 04/13/2023) Active Problems Problem Noted Date Diagnosed Date [...] as of this encounter (statuses as of 04/13/2023) Resolved Problems Problem Noted Date Diagnosed Date [...] as of this encounter (statuses as of 04/13/2023) Immunizations Name Administration Dates Next Due COVID-19 mRNA, LNP-s, No Pre serve, 2-Dose Series ([employer]) 04/22/2021,08/25/2020,08/04/2020 Pneumococcal Conjugate Vacc, 13 Valent (Prevnar) [...] encounter Miscellaneous Notes * Telephone Encounter - Lawrence Garnett [facility] - 04/13/2023 11:18 AM EST Signed Prescriptions: Disp Refills traZODone HCl 100 MG Oral Tablet (Desyrel) 90 Tab*1 Sig: Take 1 Tablet by mouth at bedtime. Authorizing Provider: BRITNEY GRIGSBY Ordering User: LAWRENCE GARNETT * Telephone Encounter - Luiza Johnson [facility] - 04/12/2023 2:01 PM EST Patient is requesting a 90-day supply, pre-edited RXs as such. Please review and approve if appropriate. Pending Prescriptions: Disp Refills traZODone HCl 100 MG Oral Tablet (Desyrel)90 Tab*0 Sig: Take 1 Tablet by mouth at bedtime. Last Visit: 03/01/2023 (in office), Visit date not found (telemedicine) Visit date not found If no future appointments scheduled, and last appointment is greater than a year ago, please schedule patient for an appointment Last date the medication was ordered: [id number] Patient Phone Numbers Labs: Lab Results Component [...] Description 04/19/2023 9:50 AM EST Anticoagulation Pharmacy, [facility] [address] [place] [address] [facility] [address] [place] [address] 05/02/2023 1:30 PM EST Office Visit Cardiology, [facility] [address] [place] [address] Renetta Glynn PA-C [address] [place] [address] 05/24/2023 1:00 PM EST Imaging Vascular Lab, [facility] 2nd Floor, [place] [address] [facility] [place] [address] 06/07/2023 2:10 PM EST Office Visit Vascular Surgery, [facility] [address] [facility] [place] [address] Killian Gan MD [address] [place] [address] 10/24/2023 3:00 PM EDT Office Visit Rheumatology [facility] [address] [place] [address] Kayla Jerome CRNP [address] [place] [address] Scheduled Procedures Name Priority Associated Diagnoses Date/Ti me COLONOSCOPY FLEXIBLE PROXIMA L DIAGNOSTIC Recall Encounter for screening colonoscopy Health Maintenance Due Date Last Done Comments Hepatitis B (1 of 3 - Risk 3-dose series) 2013 Depression Screening 12/28/2021 12/28/2020 COVID-19 Vaccine ( season) 2023 04/22/2021, 08/25/2020, 08/04/2020 DISCUSS TOBACCO CESSATION (REFER TO SMARTSET #3291) 02/23/2023 02/23/2022 *NEPHROLOGY REFERRAL DUE TO RESISTANT [...] Not on filedocumented as of this encounter Care Teams Assistant Family Teacher Relationship Specialty Start Date End Date Britney Grigsby CRNP [address] [place] [address] PCP - General Nurse Practitioner 09/22/21 documented as of this encounter
--- OUTSIDE RECORDS SUMMARY | 2023-05-03 07:27 | External Medical Summary | Summary of Care ---
Author Name Unknown Organization [facility] Address [address] [place] [address] Phone [phone] Care Team Providers Care Pond Scaler Name Role Phone Britney Ko Collette MARU Primary Care Provider Reason for Visit * Reason Onset Date Comments Medication Refill 04/12/2023 Encounter Details Date Type Department Care Team (Late st Contact Info) Description 04/12/2023 Refill Pulmonary Medicine, [place] [address], [place] [id number] Jos Barton MD [address] [place] [address] Allergies Active Allergy Reactions Criticality Noted Date [...] 24 Hour (toPROL XL)Indications:Per manent atrial fibrillation ([facility]),History of alcohol abuse,Tobacco abuse,HTN, goal below 140/90,Hyponatremi a,Valvular heart disease,PAD (peripheral artery disease) ([facility]),Dyslipidemia , goal LDL below 70 TAKE [...] compression fracture. 30 Patch 1 04/10/2023 Active Furosemide 20 MG Oral Tablet (Lasix) TAKE 1 TABLET BY MOUTH IN THE MORNING. 90 Tablet 0 04/13/2023 Active Furosemide 20 MG Oral Tablet (Lasix) TAKE 1 TABLET BY MOUTH IN THE MORNING. 34 Tablet 5 03/01/2023 3 Discontinue d(Refill) Hospital, Clinic, or Other Facility Administered Medication Ordered Dose Route Frequency Start Date End Date Status Albuterol Sulfate (Proventil) (2.5 MG/3ML) 0.083% inhalation solution 2.5 mgIndications:COPD, group B, by GOLD 2017 classification ([facility]) 2.5 mg NEBULIZER PRN 12/08/2022 12/08/2023 Acti ve Albuterol Sulfate (Proventil) (5 MG/ML) 0.5% *conc* inhalation solution 2.5 mgIndications:COPD, group B, by GOLD 2017 classification ([facility]) 2.5 mg NEBULIZER PRN 12/08/2022 12/08/2023 [...] loss of child 11/30/202112/06 Centrilobular emphysema 09/22/2021 1009/2021 Prediabetes 02/01/2021 11/03/2022 Overview: Per Prediabetes protocol [...] mRNA, LNP-s, No Pre serve, 2-Dose Series ([employer]) 04/22/2021,08/25/2020,08/04/2020 Pneumococcal Conjugate Vacc, 13 Valent (Prevnar) [...] encounter Miscellaneous Notes * Telephone Encounter - Donovan Bernardo RPh - 04/13/2023 5:42 PM ESTSigned Prescriptions: Disp Refills Furosemide 20 MG Oral Tablet (Lasix) 90 Tab*0 Sig: TAKE 1 TABLET BY MOUTH IN THE MORNING.Authorizing Provider: JOS BARTON User: DONOVAN BERNARDO- * Telephone Encounter - Donovan Bernardo RPh - 04/13/2023 5:42 PM EST Rerouted remaining refills as 90 day supply to new pharmacy as requested. Thank you, Donovan Bernardo, PharmD Clinical Pharmacist [facility] ([facility]) (formerly Telepharmacy) [phone] 04/13/2023, 5:42 PM * Telephone Encounter - Luiza Johnson CPhT - 04/12/2023 1:59 PM EST Please reroute [id number] [address] [facility]. And for 90 days Pending Prescriptions: Disp Refills Furosemide 20 MG Oral Tablet (Lasix) 90 Tab*0 Sig: TAKE 1 TABLET BY MOUTH IN THE MORNING. Last Visit: Visit date not found (in office), 02/27/2023 (telemedicine) Visit date not found If no future appointments scheduled, and last appointment is greater than a year ago, please schedule patient for a follow-up appointment Last date the medication was ordered: [id number] Patient Phone Numbers Labs: Lab Results Component [...] Description 04/19/2023 9:50 AM EST Anticoagulation Pharmacy, [facility] [address] [address] [facility] [place] [address] 05/02/2023 1:30 PM EST Office Visit Cardiology, [address] [place] [address] Renetta Glynn, SAMI [address] [place] [address] 05/24/2023 1:00 PM EST [facility] [place] [address] 06/07/2023 2:10 PM EST Office Visit Vascular Surgery, [facility] [address] [facility] [place] [address] Killian Gan MD [address], [place] [address] 10/24/2023 3:00 PM EDT Office Visit Rheumatology [place] [address] [place] [address] Kayla Jerome CRNP [address] [place] [address] [employer] [place] [address] Scheduled Procedures Name Priority Associated Diagnoses Date/Ti [...] filedocumented as of this encounter Care Teams Pond Scaler Relationship Specialty Start Date End Date Britney Ko CRNP [address] [place] [address] PCP - General Nurse Practitioner 09/22/21 documented as of this encounter
--- OUTSIDE RECORDS SUMMARY | 2023-05-03 07:27 | External Medical Summary | Summary of Care ---
Author Name Unknown Organization [facility] Address [address] [facility] [place] [address] Phone [phone] Care Team Providers Care Test Lead Name Role Phone Britney Ko Primary Care Provider Reason for Visit * Reason Onset Date Comments Medication Refill 04/14/2023 Encounter Details Date Type Department Care Team (Late st Contact Info) Description 04/14/2023 Refill Family Practice [facility] [address] [place] [address] Britney Ko CRNP [address] [place] [address] Allergies Active Allergy Reactions Criticality Noted Date [...] THE MORNING. 90 Tablet 0 04/13/2023 Active traZODone HCl 100 MG Oral Tablet (Desyrel) Take 1 Tablet by mouth at bedtime. 90 Tablet 1 04/13/2023 Active Losartan Potassium 25 MG Oral Tablet (Cozaar) Take 1 Tablet by mouth in the morning. 34 Tablet 8 04/14/2023 Active Metoprolol Succinate ER 50 MG Oral Tablet Extended Release 24 Hour (toPROL XL)Indications:Per manent atrial fibrillation ([facility]),History of alcohol abuse,Tobacco abuse,HTN, goal below 140/90,Hyponatremi a,Valvular heart disease,PAD (peripheral artery disease) ([facility]),Dyslipidemia , goal LDL below 70 Take 1 Tablet by mouth in the morning. 90 Tablet 2 04/14/2023 Active Rosuvastatin Calcium 20 MG Oral Tablet (Crestor)Indicatio ns:Dyslipidemia, goal LDL below 160,Dyslipidemia, goal LDL below 130 Take 1 Tablet by mouth in the morning. 90 Tablet 2 04/14/2023 Active Warfarin Sodium 10 MG Oral Tablet (Coumadin) Take up to 1 tablet by mouth every evening as directed 30 Tablet 4 04/14/2023 Active Warfarin Sodium 10 MG Oral Tablet (Coumadin) Take up to 1 tablet by mouth every evening as directed 30 Tablet 5 03/03/2023 3 Discontinue d(Patient preference/ discontinua tion) Hospital, Clinic, or Other Facility Administered Medication Ordered Dose Route Frequency Start Date End Date Status Albuterol Sulfate (Proventil) (2.5 MG/3ML) 0.083% inhalation solution 2.5 mgIndications:COPD, group B, by GOLD 2017 classification ([facility]) 2.5 mg NEBULIZER PRN 12/08/2022 12/08/2023 Acti ve Albuterol Sulfate (Proventil) (5 MG/ML) 0.5% *conc* inhalation solution 2.5 mgIndications:COPD, group B, by GOLD 2017 classification ([facility]) 2.5 mg NEBULIZER PRN 12/08/2022 12/08/2023 [...] loss of child 11/30/202112/06 Centrilobular emphysema 09/22/2021 10/09/2021 Prediabetes 02/01/2021 11/03/2022 Overview: Per Prediabetes protocol [...] mRNA, LNP-s, No Pre serve, 2-Dose Series ([employer]) 04/22/2021,08/25/2020,08/04/2020 Pneumococcal Conjugate Vacc, 13 Valent (Prevnar) [...] encounter Miscellaneous Notes * Telephone Encounter - Jacqueline Dunham RP - 04/14/2023 3:51 AM EST Per previous encounter, patient [facility] Transfer[facility] per request Thank You, Jacqueline Dunham [facility] Clinical Pharmacist Centralized Clinical Pharmacy Services (CCPS) (formerly Telepharmacy) [phone] 04/14/2023, 3:51 AM Electronically signed by Jacqueline Dunham [facility] at 04/14/2023 3:52 AM EST documented in this encounter Plan of Treatment Upcoming Encounters Date Type Department Care Team (Late st Contact Info) Description 04/19/2023 9:50 AM EST Anticoagulation Pharmacy, [facility] [address] [place] [address] [facility] [address] [place] [address] 05/02/2023 1:30 PM EST Office Visit Cardiology, [facility] [address] [place] [address] Renetta Glynn PA-C [address] [place] [address] 05/24/2023 1:00 PM EST Imaging Vascular Lab, [facility] 2nd Floor, [place] [address] [facility] [place] [address] 06/07/2023 2:10 PM EST Office Visit Vascular Surgery, [facility] 132 [facility] [place] [address] Killian Gan MD [address] [facility] [address] 10/24/2023 3:00 PM EDT Office Visit Rheumatology [facility] [address] [place] [address] Kayla Jerome CRNP [address] [place] [address] Scheduled Procedures Name Priority Associated Diagnoses Date/Ti me COLONOSCOPY FLEXIBLE PROXIMA L DIAGNOSTIC Recall Encounter for screening colonoscopy Health Maintenance Due Date Last Done Comments Hepatitis B (1 of 3 - Risk 3-dose series) 2013 Depression Screening 12/28/2021 12/28/2020 COVID-19 Vaccine ( season) 2023 04/22/2021, 08/25/2020, 08/04/2020 DISCUSS TOBACCO CESSATION (REFER TO SMARTSET #5431) 02/23/2023 02/23/2022 *NEPHROLOGY REFERRAL DUE TO RESISTANT [...] filedocumented as of this encounter Care Teams Test Lead Relationship Specialty Start Date End Date Britney Ko CRNP [address] [place] [address] PCP - General Nurse Practitioner 09/22/21 documented as of this encounter
--- OUTSIDE RECORDS SUMMARY | 2023-05-03 07:27 | External Medical Summary ---
Author Name Unknown Address Unknown Organization [facility] [facility] [address] [place] [id number] Laboratory Report Ordering Provider Test Date Status WENDY,KATHRIN 04/19/2023 09:29:21 Final Therapeutic ranges for non-o perative patients:
Prophylaxsis/treatment of DVT: (Range:2.0-3.0)
Treatment of pulmonary embolism:(Range:2.0-3.0)
Prevention of systemic embolism from:
-tissue heart valves
-acute myocardial infarction
-valvular heart disease
-atrial fibrillation
(Range: 2.0-3.0)
Mechanical prosthetic valves: (Range: 2.5-3.5) Observation Date Value Abnormality Reference (Units ) Status INR in Capillary blood by Coagulation assay 04/19/2023 09:29:21 >8.0 (INR) Final Performing Location LABORATORY [place] [address] - [address] [place] [id number]
--- OUTSIDE RECORDS SUMMARY | 2023-05-03 07:27 | External Medical Summary ---
Author Name Unknown Address Unknown Organization K0G:[facility] [place] [facility] [address] [place] [id number] Laboratory Report Ordering Provider Test Date Status TIM LIMON 05/02/2023 14:24:31 Final Observation Date Value Abnormality Reference (Units ) Status BUN 05/02/2023 14:24:31 5 Below low normal 6-20 (mg/dL) Final Creatinine 05/02/2023 14:24:31 0.4 Below low normal 0.5-1.0 (mg/dL) Final Glomerular filtration rate/1.73 sq M.predicted [Volume Rate/Area] in Serum, Plasma or Blood by Creatinine-based formula (CKD-EPI) 05/02/2023 14:24:31 >90 >=60 (mL/min) Final eGFR is calculated based on the CKD-EPI 2020 equation SODIUM 05/02/2023 14:24:31 123 Below low normal 135 -146 (mmol/L) Final Potassium 05/02/2023 14:24:31 4.1 3.5-5.1 (m mol/L) Final Cl 05/02/2023 14:24:31 83 Below low normal 98- 107 (mmol/L) Final CO2 05/02/2023 14:24:31 24 22-32 (mmo l/L) Final Anion gap 05/02/2023 14:24:31 16 Above high normal 7- 15 (mmol/L) Final Glucose 05/02/2023 14:24:31 119 70-120 (mg /dL) Final Albumin 05/02/2023 14:24:31 4.3 3.8-5.0 (g /dL) Final AST (Aspartate aminotransferase) 05/02/2023 14:24:31 38 Above high normal 10-35 (U/L) Final Alk Phos 05/02/2023 14:24:31 163 Above high normal 35 -130 (U/L) Final Bilirubin, Total 05/02/2023 14:24:31 1.2 <=1 .2 (mg/dL) Final Calcium 05/02/2023 14:24:31 9.4 8.4-10.2 ( mg/dL) Final Protein 05/02/2023 14:24:31 7.6 6.0-8.3 (g /dL) Final ALT (Alanine aminotransferase) 05/02/2023 14:24:31 16 10-35 (U/L) Leonidas mckeon Performing Location LAB[facility]ATORY [place] [address] [facility] [address]
--- OUTSIDE RECORDS SUMMARY | 2023-05-03 07:27 | External Medical Summary | Summary of Care ---
Author Name Unknown Organization [facility] Address [address] [facility] [place] [address] Phone [phone] Care Team Providers Care Software Manager Name Role Phone Britney Ko Collette MAHONEY Primary Care Provider Reason for Visit * Reason Comments Dosage Adjustment In Person (Anticoag Cl inic) Encounter Details Date Type Department Care Team (Latest Contact Info) Description 04/19/2023 9:50 AM EST Anticoagulation Pharmacy, [facility] 132 [facility] [place] [address] [facility] 132 [facility] [place] [address] Anticoagulation management encounter*; half-way current use of anticoagulant therapy Allergies Active Allergy Reactions Criticality Noted Date Comments Sulfa Antibiotics 11/03/2016 Trimethoprim 04/14/1997 rash documented as of this encounter (statuses as of 04/19/2023) Medications Medication Sig Dispensed Refills Start Date [...] 0 Active Magnesium Oxide 200 MG Oral TabletIndications:pt takes every other day Take by mouth 1 Tablet daily . 0 10/30/2020 Active Jublia 10 % External Solution 0 08/25/2021 Active Ammonium Lactate 12 % External Lotion Apply to both feet once daily. Dispense 3 400g tubes. 400 g 0 06/29/2022 Active Trelegy Ellipta 100-62.5-25 MCG/ACT Aerosol Powder Breath Activated (Fluticasone-Umeclid inium-Vilanterol) Inhale 1 Puff by mouth. 0 Active traMADol HCl 50 MG Oral Tablet (Ultram)Indications: Lumbar degenerative disc disease Take 1 Tablet by mouth every 6 hours as needed for severe Pain 30 Tablet 0 12/23/2022 Active Additional Information Patient not taking.Reported on 03/01/2023 Baclofen 10 MG Oral Tablet (Lioresal)Indication s:Acute midline low back pain without sciatica Take [...] 4 MG Oral Tablet Therapy Pack (Medrol Dosepack)Indications :Lumbar back pain follow package directions 21 Tablet 0 03/01/2023 Active Lidocaine 5 % External Patch (Lidoderm)Indication s:Compression deformity of vertebra Place 1 Patch over [...] Oral Tablet Extended Release 24 Hour (toPROL XL)Indications:Perma nent atrial fibrillation (HCC),History of alcohol abuse,Tobacco abuse,HTN, goal below 140/90,Hyponatremia, Valvular heart disease,PAD (peripheral artery disease) ([facility]),Dyslipidemia, goal LDL below 70 Take 1 Tablet by mouth in the morning. 90 Tablet 2 04/14/2023 Active Rosuvastatin Calcium 20 MG Oral Tablet (Crestor)Indications :Dyslipidemia, goal LDL below 160,Dyslipidemia, goal LDL below 130 Take 1 Tablet by mouth in the morning. 90 Tablet 2 04/14/2023 Active Warfarin Sodium 10 MG Oral Tablet (Coumadin) Take up to 1 tablet by mouth every evening as directed 30 Tablet 4 04/14/2023 Active Hospital, Clinic, or Other Facility Administered Medication Ordered Dose Route Frequency Start Date End Date Status Albuterol Sulfate (Proventil) (2.5 MG/3ML) 0.083% inhalation solution 2.5 mgIndications:COPD, group B, by GOLD 2017 classification ([facility]) 2.5 mg NEBULIZER PRN 12/08/2022 12/08/2023 Acti ve Albuterol Sulfate (Proventil) (5 MG/ML) 0.5% *conc* inhalation solution 2.5 mgIndications:COPD, group B, by GOLD 2017 classification ([facility]) 2.5 mg NEBULIZER PRN 12/08/2022 12/08/2023 Acti ve documented as of this encounter (statuses as of 04/19/2023) Active Problems Problem Noted Date Diagnosed Date [...] as of this encounter (statuses as of 04/19/2023) Resolved Problems Problem Noted Date Diagnosed Date [...] as of this encounter (statuses as of 04/19/2023) Immunizations Name Administration Dates Next Due COVID-19 mRNA, LNP-s, No Pre serve, 2-Dose Series ([employer]) 04/22/2021,08/25/2020,08/04/2020 Pneumococcal Conjugate Vacc, 13 Valent (Prevnar) [...] on file documented as of this encounter Progress Notes * Gaby Andrea RPh - 04/19/2023 10:06 AM EST Images from the original note were not included. Medication Therapy Disease Management - Anticoagulation Patient: Michelle Puente | : 1955 Subjective Patient-Reported Symptoms: Patient Findings Negatives: Signs/symptoms of thrombosis, Signs/symptoms of bleeding, Change in health, Change in alcohol use, Change in activity, Upcoming invasive procedure, Missed doses, Extra doses, Change in medications, Change in diet/appetite, Bruising Objective Current Warfarin Dose As of 04/19/2023 Warfarin maintenance plan: 5 mg (10 mg x 0.5) every Tue, Sat; 10 mg (10 mg x 1) all other days INR Result As of 04/19/2023 INR goal: 2.0-3.0 INR used for dosing: >8.0 (04/19/2023) Assessment & Plan Warfarin Plan As of 04/19/2023 Full warfarin instructions: 04/19: Hold; 04/20: Hold; 04/21: Hold; Otherwise 5 mg every Tue, Sat; 10mg all other days Next INR check: 05/02/2023 Repeat PT/INR in 10 day(s) Weekly dose: decreased Additional Dosing Information: Gaby Andrea RPh Clinical Pharmacist 04/19/2023, 10:06 AM documented in this encounter Plan of Treatment Upcoming Encounters Date Type Department Care Team (Late st Contact Info) Description 05/02/2023 1:30 PM EST Office Visit Cardiology, [facility] 132 [place] [address] Renetta Glynn, PAChris [address] [facility] [address] 05/02/2023 2:00 PM EST Anticoagulation Pharmacy, [facility] [address] [place] [address] [facility] [address] [place] [address] 05/24/2023 1:00 PM EST Imaging Vascular Lab, [facility] 2nd Floor, [address] [address] 06/07/2023 2:10 PM EST Office Visit Vascular Surgery, [facility] 132 [place] [address] Killian Gan MD [address], [place] [id number] 10/24/2023 3:00 PM EDT Office Visit Rheumatology [address] [place] [address] Kayla Jerome CRNP [address] [place] [address] [place] [address] Scheduled Procedures Name Priority Associated Diagnoses Date/Ti [...] Not on filedocumented as of this encounter Procedures Procedure Name Priority Date/Time Associated Diagnosis Comments INR FINGERSTICK, POINT OF CARE STAT 04/19/2023 9:29 AM EST Anticoagulation management encounter half-way current use of anticoagulant therapy documented in this encounter Results * INR FINGERSTICK, POINT OF CARE (04/19/2023 9:29 AM EST) Fingerstick INR >8.0 INR 9:37 AM EST LAB[facility] [place] 57-10 Blood 04/19/2023 9:29 AM EST 04/19/2023 9:37 AM EST Narrative LAB[facility]ORY [place] 57-10 - 04/19/2023 9:37 AM EST Therapeutic ranges for non-operative patients: Prophylaxsis/treatment of DVT: (Range:2.0-3.0) Treatment of pulmonary embolism:(Range:2.0-3.0) Prevention of systemic embolism from: -tissue heart valves -acute myocardial infarction -valvular heart disease -atrial fibrillation (Range: 2.0-3.0) Mechanical prosthetic valves: (Range: 2.5-3.5) Gaby Andrea [facility] POINT OF C ARE TEST DOCKED DEVICE UNSOLICITED RESULTS LAB[facility]ORY [place] [address] [place] [address] documented in this encounter Visit Diagnoses Diagnosis Anticoagulation management encounter- Primary Encounter for therapeutic drug monitoring terminal clerk current use of anticoagulant therapy documented in this encounter Care Teams Software Manager Relationship Specialty Start Date End Date Britney Ko CRNP [address] [place] [address] PCP - General Nurse Practitioner 09/22/21 documented as of this encounter"
--- OUTSIDE RECORDS SUMMARY | 2023-05-03 07:27 | External Medical Summary ---
Author Name Unknown Address Unknown Organization K0G:[facility] [address] - [address] [place] [id number] Laboratory Report Ordering Provider Test Date Status TIM LIMON 05/02/2023 14:24:31 Final Observation Date Value Abnormality Reference (Units ) Status WBC, Total 05/02/2023 14:24:31 6.33 4.00-10.8 0 (K/uL) Final RBC 05/02/2023 14:24:31 4.33 3.85-5.15 (M/uL) Final Hemoglobin 05/02/2023 14:24:31 14.5 12.0-15.3 (g/dL) Final HCT 05/02/2023 14:24:31 41.2 36.0-45.2 (%) Final MCV 05/02/2023 14:24:31 95.2 81.5-97.5 (fL) Final MCH 05/02/2023 14:24:31 33.5 27.0-34.0 (pg) Final MCHC 05/02/2023 14:24:31 35.2 32.0-36.0 (g/dL) Final RDW 05/02/2023 14:24:31 14.4 11.5-15.5 (%) Final Platelets 05/02/2023 14:24:31 174 140-400 (K /uL) Final MPV 05/02/2023 14:24:31 9.5 6.6-11.1 ( fL) Final Performing Location [facility]ORY [facility] [address] - [address] [place] [id number]
--- OUTSIDE RECORDS SUMMARY | 2023-05-03 07:28 | External Medical Summary | Summary of Care ---
Author Name Unknown Organization [facility] Address [address] [facility] [place] [address] Phone [phone] Care Team Providers Care Endless Steamer Tender Name Role Phone Britney Ko Primary Care Provider Reason for Referral * Evaluate & Treat - Unlimited Visits (Within 30 days (routine)) - Pending Review Specialty Diagnoses / Procedures Referred By Marquita camargo Referred To Contact Rheumatology Diagnoses Age-related osteoporosis with current pathological fracture with routine healing, subsequent encounter Sherron Villalpando MD [address] [facility] [place] [address] Referral ID Status Reason Start Date Expiration Date Visits Requested Visits Authorized [id number] Pending Review Specialty Services Required [phone] Question Answer Referral Priority Within 30 days (routine) Where should this appointment be scheduled? [facility] Comments Osteoporosis with compression fractures. Never had treatment. Would benefit from anabolic treatments? Encounter Details Date Type Department Care Team (Late st Contact Info) Description 04/06/2023 Telephone Family Practice [facility] [address] [place] [address] Sherron Villalpando MD [address] [place] [address] Allergies Active Allergy Reactions Criticality Noted Date Comments Sulfa Antibiotics 11/03/2016 Trimethoprim 04/14/1997 rash documented as of this encounter (statuses as of 04/10/2023) Medications Medication Sig Dispensed Refills Start Date [...] 0 Active Magnesium Oxide 200 MG Oral TabletIndications:p t takes every other day Take by mouth 1 Tablet daily . 0 10/30/2020 Active Jublia 10 % External Solution 0 08/25/2021 Active Ammonium Lactate 12 % External Lotion Apply to both feet once daily. Dispense 3 400g tubes. 400 g 0 06/29/2022 Active Metoprolol Succinate ER 50 MG Oral Tablet Extended Release 24 Hour (toPROL XL)Indications:Perm anent atrial fibrillation (HCC),History of alcohol abuse,Tobacco abuse,HTN, goal below 140/90,Hyponatremia ,Valvular heart disease,PAD (peripheral artery disease) (HCC),Dyslipidemia, goal LDL below 70 TAKE 1 TABLET EVERY MORNING 90 Tablet 3 10/27/2022 Active Losartan Potassium 25 MG Oral Tablet (Cozaar) Take 1 Tablet by mouth in the morning. 34 Tablet 11 12/06/2022 Active traZODone HCl 100 MG Oral Tablet (Desyrel) Take 1 Tablet by mouth at bedtime. 30 Tablet 3 12/06/2022 Active Additional Information Patient not taking.Reported on 03/01/2023 Trelegy Ellipta 100-62.5-25 MCG/ACT Aerosol Powder Breath Activated (Fluticasone-Umecli dinium-Vilanterol) Inhale 1 Puff by mouth. 0 Active traMADol HCl 50 MG Oral Tablet (Ultram)Indications :Lumbar degenerative disc disease Take 1 Tablet by mouth every 6 hours as needed for severe Pain 30 Tablet 0 12/23/2022 Active Additional Information Patient not taking.Reported on 03/01/2023 Rosuvastatin Calcium 20 MG Oral Tablet (Crestor)Indication s:Dyslipidemia, goal LDL below 160,Dyslipidemia, goal LDL below 130 Take 1 Tablet by mouth in the morning. 90 Tablet 3 12/23/2022 Active Baclofen 10 MG Oral Tablet (Lioresal)Indicatio ns:Acute midline low back pain without sciatica Take [...] IN THE MORNING. 34 Tablet 5 03/01/2023 02/29/2024 Active methylPREDNISolone 4 MG Oral Tablet Therapy Pack (Medrol Dosepack)Indication s:Lumbar back pain follow package directions 21 Tablet 0 03/01/2023 Active Warfarin Sodium 10 MG Oral Tablet (Coumadin) Take up to 1 tablet by mouth every evening as directed 30 Tablet 5 03/03/2023 Active Lidocaine 5 % External Patch (Lidoderm)Indicatio ns:Compression deformity of vertebra Place 1 Patch over 12 hours topically on the skin daily. Place over area of pain from compression fracture. 30 Patch 1 04/10/2023 Active Hospital, Clinic, or Other Facility Administered Medication Ordered Dose Route Frequency Start Date End Date Status Albuterol Sulfate (Proventil) (2.5 MG/3ML) 0.083% inhalation solution 2.5 mgIndications:COPD, group B, by GOLD 2017 classification ([facility]) 2.5 mg NEBULIZER PRN 12/08/2022 12/08/2023 Acti ve Albuterol Sulfate (Proventil) (5 MG/ML) 0.5% *conc* inhalation solution 2.5 mgIndications:COPD, group B, by GOLD 2017 classification (HCC) 2.5 mg NEBULIZER PRN 12/08/2022 12/08/2023 Acti ve documented as of this encounter (statuses as of 04/10/2023) Active Problems Problem Noted Date Diagnosed Date [...] as of this encounter (statuses as of 04/10/2023) Resolved Problems Problem Noted Date Diagnosed Date [...] as of this encounter (statuses as of 04/10/2023) Immunizations Name Administration Dates Next Due COVID-19 mRNA, LNP-s, No Pre serve, 2-Dose Series (Pfizer) 04/22/2021,08/25/2020,08/04/2020 Diptheria/Tetanus (Adult) 07/14/19972007 Pneumococcal Conjugate Vacc, 13 Valent (Prevnar) 08/06/2018 [...] as of this encounter Miscellaneous Notes * Addendum Note - Sherron Villalpando MD - 04/10/2023 10:58 PM ESTAddended by: SHERRON VILLALPANDO on: 04/10/2023 10:58 PM Modules accepted: Orders * Telephone Encounter - Sherron Villalpando MD - 04/10/2023 12:53 PM EST [facility] referral placed to discuss osteoporosis tx. Rx for lidocaine patch to see if this helps pain control. Please let patient know. * Telephone Encounter - Kaleigh Jerome MED ASSIST - 04/10/2023 9:44 AM EST Patient informed. Pain is about the same. She takes Tylenol for it but it doesn't really help. She has not had any treatment for osteoporosis. * Telephone Encounter - Emani James LPN - 04/07/2023 3:05 PM EST Called pt-- No answer on home phone. Unable to leave VM LM on mobile phone VM to call clinic back and give message below ask ?s MRI of lumbar spine does show multiple compression fractures that are still healing. How is her pain? Getting better/worse/no change? Has she ever had treatment for osteoporosis? * Telephone Encounter - Sherron Villalpando MD - 04/06/2023 9:35 PM EST MRI of lumbar spine does show multiple compression fractures that are still healing. How is her pain? Getting better/worse/no change? Has she ever had treatment for osteoporosis? documented in this encounter Plan of Treatment Upcoming Encounters Date Type Department Care Team (Late st Contact Info) Description 04/19/2023 9:50 AM EST Anticoagulation Pharmacy, [facility] [address] [facility] [place] [address] [facility] [address] [place] [address] 05/02/2023 1:30 PM EST Office Visit Cardiology, [facility] 132 [facility] [place] [address] Renetta Garcia PA-C [address] [place] [address] 05/24/2023 1:00 PM EST Imaging Vascular Lab, [facility] 2nd Floor, [place] [facility] [place] [address] 06/07/2023 2:10 PM EST Office Visit Vascular Surgery, [facility] [address] [facility] [place] [address] Killian Gan MD [address] [place] [address] Scheduled Procedures Name Priority Associated Diagnoses Date/Ti me COLONOSCOPY FLEXIBLE PROXIMA L DIAGNOSTIC Recall Encounter for screening colonoscopy Scheduled Referrals Name Type Priority Associated Diagnoses Orde r Schedule HIGH RISK OSTEOPOROSIS CLINIC REFERRAL OP Referral Within 30 days (routine) Age-related osteoporosis with current pathological fracture with routine healing, subsequent encounter Ordered: 04/10/2023 Health Maintenance Due Date Last Done Comments Hepatitis B (1 of 3 - Risk 3-dose series) 2013 Depression Screening 12/28/2021 12/28/2020 COVID-19 Vaccine ( season) 2023 04/22/2021, 08/25/2020, 08/04/2020 DISCUSS TOBACCO CESSATION (REFER TO SMARTSET #4753) 02/23/2023 02/23/2022 *NEPHROLOGY REFERRAL DUE TO RESISTANT [...] as of this encounter Visit Diagnoses Diagnosis Compression deformity of vertebra- Primary Other acquired deformity of back or spine Age-related osteoporosis with current pathological fracture with routine healing, subsequent encounter documented in this encounter Care Teams Endless Steamer Tender Relationship Specialty Start Date End Date Britney Ko CRNP [address] [address] PCP - General Nurse Practitioner 09/22/21 documented as of this encounter
--- OUTSIDE RECORDS SUMMARY | 2023-05-03 07:28 | External Medical Summary | Summary of Care ---
Author Name Unknown Organization [facility] Address [address] [facility] [place] [address] Phone [phone] Care Team Providers Care Correspondence Section Supervisor Name Role Phone Britney Ko Primary Care Provider Reason for Referral * Evaluate & Treat - Unlimited Visits (Within 30 days (routine)) - Pending Review Specialty Diagnoses / Procedures Referred By Marquita camargo Referred To Contact Rheumatology Diagnoses Age-related osteoporosis with current pathological fracture with routine healing, subsequent encounter Sherron Villalpando MD [address] [place] [address] Referral ID Status Reason Start Date Expiration Date Visits Requested Visits Authorized [id number] Pending Review Specialty Services Required [phone] Question Answer Referral Priority Within 30 days (routine) Where should this appointment be scheduled? [facility] Comments Osteoporosis with compression fractures. Never had treatment. Would benefit from anabolic treatments? Encounter Details Date Type Department Care Team (Late st Contact Info) Description 04/06/2023 Telephone Family Practice [facility] [address] [place] [address] Sherron Villalpando MD [address] [place] [address] Allergies Active Allergy Reactions Criticality Noted Date Comments Sulfa Antibiotics 11/03/2016 Trimethoprim 04/14/1997 rash documented as of this encounter (statuses as of 04/11/2023) Medications Medication Sig Dispensed Refills Start Date [...] mgIndications:COPD, group B, by GOLD 2017 classification ([facility]) 2.5 mg NEBULIZER PRN 12/08/2022 12/08/2023 Acti ve Albuterol Sulfate (Proventil) (5 MG/ML) 0.5% *conc* inhalation solution 2.5 mgIndications:COPD, group B, by GOLD 2017 classification (HCC) 2.5 mg NEBULIZER PRN 12/08/2022 12/08/2023 Acti ve documented as of this encounter (statuses as of 04/11/2023) Active Problems Problem Noted Date Diagnosed Date [...] as of this encounter (statuses as of 04/11/2023) Resolved Problems Problem Noted Date Diagnosed Date [...] as of this encounter (statuses as of 04/11/2023) Immunizations Name Administration Dates Next Due COVID-19 [...] Description 04/19/2023 9:50 AM EST Anticoagulation Pharmacy, [facility] [address] [facility] [place] [address] [facility] [address] [place] [address] 05/02/2023 1:30 PM EST Office Visit Cardiology, [facility] 132 [facility] [place] [address] Renetta Garcia PA-C [address] [place] [address] 05/24/2023 1:00 PM EST Imaging Vascular Lab, [facility] 2nd Floor, [place] [facility] [place] [address] 06/07/2023 2:10 PM EST Office Visit Vascular Surgery, [facility] 132 [facility] [place] [address] Killian Gan MD [address] [place] [address] Scheduled Procedures Name Priority Associated Diagnoses Date/Ti [...] 08/04/2020 DISCUSS TOBACCO CESSATION (REFER TO SMARTSET #[id number]) 02/23/2023 02/23/2022 *NEPHROLOGY REFERRAL DUE TO RESISTANT [...] encounter documented in this encounter Care Teams Correspondence Section Supervisor Relationship Specialty Start Date End Date Britney Ko CRNP [address] [address] PCP - General Nurse Practitioner 09/22/21 documented as of this encounter
--- OUTSIDE RECORDS SUMMARY | 2023-05-03 07:28 | External Medical Summary | Summary of Care ---
Author Name Unknown Organization [facility] Address [address] [facility] [place] [address] Phone [phone] Care Team Providers Care Lead Worker Of Housekeeping And Laundry Name Role Phone Britney Ko Primary Care Provider Reason for Referral * Evaluate & Treat - Unlimited Visits (Within 30 days (routine)) - Pending Review Specialty Diagnoses / Procedures Referred By Marquita camargo Referred To Contact Rheumatology Diagnoses Age-related osteoporosis with current pathological fracture with routine healing, subsequent encounter Sean Villalpando MD [address] [employer] [place] [address] Referral ID Status Reason Start Date Expiration Date Visits Requested Visits Authorized [id number] Pending Review Specialty Services Required [phone] Question Answer Referral Priority Within 30 days (routine) Where should this appointment be scheduled? [facility] Comments Osteoporosis with compression fractures. Never had treatment. Would benefit from anabolic treatments? Encounter Details Date Type Department Care Team (Late st Contact Info) Description 04/06/2023 Telephone Family Practice [facility] [address] [place] [address] Sean Villalpando MD [address] [place] [address] Allergies Active Allergy Reactions Criticality Noted Date [...] mgIndications:COPD, group B, by GOLD 2017 classification ([facility]) 2.5 mg NEBULIZER PRN 12/08/2022 12/08/2023 Acti [...] encounter Miscellaneous Notes * Telephone Encounter - Trisha Sherman LPN - 04/11/2023 9:22 AM EST Called and spoke with pt. Relayed information from [place]. Pt voiced understanding. Please assist pt with appointment for HIGH RISK OSTEOPOROSIS CLINIC REFERRAL OP * Addendum Note - Sean Villalpando MD - 04/10/2023 10:58 PM ESTAddended by: SEAN VILLALPANDO on: 04/10/2023 10:58 PM Modules accepted: Orders * Telephone Encounter - Sean Villalpando MD - 04/10/2023 12:53 PM EST [...] treatment for osteoporosis? * Telephone Encounter - Sean Villalpando MD - 04/06/2023 9:35 PM EST MRI of lumbar spine does show multiple compression fractures that are still healing. How is her pain? Getting better/worse/no change? Has she ever had treatment for osteoporosis? documented in this encounter Plan of Treatment Upcoming Encounters Date Type Department Care Team (Late st Contact Info) Description 04/19/2023 9:50 AM EST Anticoagulation Pharmacy, [facility] 132 [place] [address] [place] [address] 05/02/2023 1:30 PM EST Office Visit Cardiology, [address] [place] [address] Renetta Glynn, SAMI 132 [facility] [place] [address] 05/24/2023 1:00 PM EST Imaging Vascular Lab, [facility] 2nd Floor, [address] [place] [address] 06/07/2023 2:10 PM EST Office Visit Vascular Surgery, [address] [place] [address] Killian Gan MD [address] [place] [address] Scheduled Procedures Name Priority Associated Diagnoses Date/Ti [...] 08/04/2020 DISCUSS TOBACCO CESSATION (REFER TO SMARTSET #9671) 02/23/2023 02/23/2022 *NEPHROLOGY REFERRAL DUE TO RESISTANT HTN 02/28/2023 Mammogram 10/05/2023 10/04/2022, 0608/2021, 10/06/2020, Additional history exists COLONOSCOPY-ANNUAL AGES 18-100 [...] encounter documented in this encounter Care Teams Lead Worker Of Housekeeping And Laundry Relationship Specialty Start Date End Date Britney Ko CRNP [address] [place] [address] PCP - General Nurse Practitioner 09/22/21 documented as of this encounter
--- OUTSIDE RECORDS SUMMARY | 2023-05-03 07:28 | External Medical Summary | Summary of Care ---
Author Name Unknown Organization [facility] Address [address] [facility] [place] [address] Phone [phone] Care Team Providers Care Senior Risk Manager Name Role Phone Britney Ko Primary Care Provider Reason for Referral * Evaluate & Treat - Unlimited Visits (Within 30 days (routine)) - Pending Review Specialty Diagnoses / Procedures Referred By Marquita camargo Referred To Contact Rheumatology Diagnoses Age-related osteoporosis with current pathological fracture with routine healing, subsequent encounter Sean Villalpando MD [address] [employer] [place] [address] Referral ID Status Reason Start Date Expiration Date Visits Requested Visits Authorized [id number] Pending Review Specialty Services Required [phone] Question Answer Referral Priority Within 30 days (routine) Where should this appointment be scheduled? [facility] Comments Osteoporosis with compression fractures. Never had treatment. Would benefit from anabolic treatments? Encounter Details Date Type Department Care Team (Late st Contact Info) Description 04/06/2023 Telephone Family Practice [facility] [address] [place] [address] Sean Villalpando MD [address] [place] [address] Allergies Active Allergy Reactions Criticality Noted Date [...] mgIndications:COPD, group B, by GOLD 2017 classification ([facility]) 2.5 mg NEBULIZER PRN 12/08/2022 12/08/2023 Acti [...] encounter Miscellaneous Notes * Telephone Encounter - Aleks Gilliland - 04/11/2023 9:53 AM EST Called pt, scheduled [facility] referral for next opening at [facility] * Telephone Encounter - Trisha Sherman LPN [...] answer on home phone. Unable to leave LM on mobile phone to call clinic back and give message [...] Description 04/19/2023 9:50 AM EST [address] [address] [facility] [address] [place] [address] 05/02/2023 1:30 PM EST Office Visit Cardiology, [facility] 132 [place] [address] Renetta Glynn PA-C [address] [facility] [place] [address] 05/24/2023 1:00 PM EST Imaging Vascular Lab, [facility] II 2nd Floor, [address] [place] [address] 06/07/2023 2:10 PM EST Office Visit Vascular Surgery, [address] [place] [address] Killian Gan MD [address] [place] [address] 10/24/2023 3:00 PM EDT Office Visit Rheumatology [address] [place] [address] Kayla Jerome CRNP [address] [place] [address] [place] [address] Scheduled Procedures Name Priority Associated Diagnoses Date/Ti [...] 08/04/2020 DISCUSS TOBACCO CESSATION (REFER TO SMARTSET #2163) 02/23/2023 02/23/2022 *NEPHROLOGY REFERRAL DUE TO RESISTANT [...] encounter documented in this encounter Care Teams Senior Risk Manager Relationship Specialty Start Date End Date Britney Ko CRNP [address] [place] [address] PCP - General Nurse Practitioner 09/22/21 documented as of this encounter
--- OUTSIDE RECORDS SUMMARY | 2023-05-03 07:28 | External Medical Summary | Summary of Care ---
Author Name Unknown Organization [facility] Address [address] [facility] [place] [address] Phone [phone] Care Team Providers Care Bellman Driver Name Role Phone Britney Ko Primary Care Provider Reason for Visit * Reason Comments Dosage Adjustment Via Phone (anticoag Cl inic) Encounter Details Date Type Department Care Team (Latest Contact Info) Description 04/10/2023 6:10 PM [facility] Anticoagulation Pharmacy, [facility] 132 [facility] [place] [address] [facility] 132 [facility] [place] [address] Anticoagulation management encounter* Allergies Active Allergy Reactions Criticality Noted Date [...] as directed 30 Tablet 5 03/03/2023 Active Hospital, Clinic, or Other Facility Administered Medication Ordered Dose Route Frequency Start Date End Date Status Albuterol Sulfate (Proventil) (2.5 MG/3ML) 0.083% inhalation solution 2.5 mgIndications:COPD, group B, by GOLD 2017 classification ([facility]) 2.5 mg NEBULIZER PRN 12/08/2022 12/08/2023 Acti ve Albuterol Sulfate (Proventil) (5 MG/ML) 0.5% *conc* inhalation solution 2.5 mgIndications:COPD, group B, by GOLD 2017 classification ([facility]) 2.5 mg NEBULIZER PRN 12/08/2022 12/08/2023 [...] mRNA, LNP-s, No Pre serve, 2-Dose Series ([employer]) 04/22/2021,08/25/2020,08/04/2020 Pneumococcal Conjugate Vacc, 13 Valent (Prevnar) [...] as of this encounter Progress Notes * Ariadne Phelps shank pinner - 04/10/2023 10:54 AM EST Patient Phone Numbers Spoke with patient to schedule [place] appointment for coag management. Appointment scheduled as notedbelow. 04/19/2023 Thank you, Ariadne hPelps [employer] [facility] ([facility] (Formerly Telepharm[facility]) 04/10/2023, 11:00 AM documented in this encounter Plan of Treatment Upcoming Encounters Date Type Department Care Team (Late st Contact Info) Description 04/19/2023 9:50 AM EST Anticoagulation Pharmacy, [facility] [address] [place] [address] [facility] [place] [address] [address] [place] [address] 05/02/2023 1:30 PM EST Office Visit Cardiology, [facility] [address] [place] [address] Renetta Glynn PA-C [address] [place] [address] 05/24/2023 1:00 PM EST Imaging Vascular Lab, [facility] II 2nd Floor, [place] [address] [place] [address] 06/07/2023 2:10 PM EST Office Visit Vascular Surgery, [facility] [address] [place] [address] Killian Gan MD [address] [facility] [place] [address] Scheduled Procedures Name Priority Associated Diagnoses Date/Ti me COLONOSCOPY FLEXIBLE PROXIMA L DIAGNOSTIC Recall Encounter for screening colonoscopy Health Maintenance Due Date Last Done Comments Hepatitis B (1 of 3 - Risk 3-dose series) 2013 Depression Screening 12/28/2021 12/28/2020 COVID-19 Vaccine ( season) 2023 04/22/2021, 08/25/2020, 08/04/2020 DISCUSS TOBACCO CESSATION (REFER TO SMARTSET #3298) 02/23/2023 02/23/2022 *NEPHROLOGY REFERRAL DUE TO RESISTANT [...] as of this encounter Visit Diagnoses Diagnosis Anticoagulation management encounter- Primary Encounter for therapeutic drug monitoring documented in this encounter Care Teams Bellman Driver Relationship Specialty Start Date End Date Britney Ko CRNP [address] [place] [address] PCP - General Nurse Practitioner 09/22/21 documented as of this encounter
--- OUTSIDE RECORDS SUMMARY | 2023-05-03 07:28 | External Medical Summary | Summary of Care ---
Author Name Unknown Organization [facility] Address [address] [facility] [place] [address] Phone [phone] Care Team Providers Care Goat Driver Name Role Phone Britney Ko Primary Care Provider Encounter Details Date Type Department Care Team (Late st Contact Info) Description 04/06/2023 Telephone Family Practice [facility] [address] [place] [address] Sherron Villalpando MD [address] [place] [address] Allergies Active Allergy Reactions Criticality Noted Date [...] 24 Hour (toPROL XL)Indications:Perm anent atrial fibrillation ([facility]),History of alcohol abuse,Tobacco abuse,HTN, goal below 140/90,Hyponatremia ,Valvular heart disease,PAD (peripheral artery disease) ([facility]),Dyslipidemia, goal LDL below 70 TAKE 1 TABLET [...] mgIndications:COPD, group B, by GOLD 2017 classification ([facility]) 2.5 mg NEBULIZER PRN 12/08/2022 12/08/2023 Acti ve Albuterol Sulfate (Proventil) (5 MG/ML) 0.5% *conc* inhalation solution 2.5 mgIndications:COPD, group B, by GOLD 2017 classification ([facility]) 2.5 mg NEBULIZER PRN 12/08/2022 [...] encounter Miscellaneous Notes * Telephone Encounter - Sherron Villalpando MD - 04/10/2023 12:53 PM EST Staff message sent to PCP * Telephone Encounter - Kaleigh Jerome MED [...] Upcoming Encounters Date Type Department Care Team (Latest Contact Info) Description 04/10/2023 6:10 PM EST Anticoagulation Pharmacy, [address] [place] [address] [place] [address] Anticoagulation management encounter* 04/19/2023 9:50 AM EST Anticoagulation Pharmacy, [address] [place] [address] [place] [address] 05/02/2023 1:30 PM EST Office Visit Cardiology, [address] [place] [address] Renetta Glynn, PAChris 132 [place] [address] 05/24/2023 1:00 PM EST Imaging Vascular Lab, [facility] II 2nd Floor, [address] [place] [address] 06/07/2023 2:10 PM EST Office Visit Vascular Surgery, [address] [place] [address] Killian Gan MD [address] [place] [address] Scheduled Procedures Name Priority Associated Diagnoses Date/Ti me COLONOSCOPY FLEXIBLE PROXIMA L DIAGNOSTIC Recall Encounter for screening colonoscopy Health Maintenance Due Date Last Done Comments Hepatitis B (1 of 3 - Risk 3-dose series) 2013 Depression Screening 12/28/2021 12/28/2020 COVID-19 Vaccine ( season) 2023 04/22/2021, 08/25/2020, 08/04/2020 DISCUSS TOBACCO CESSATION (REFER TO SMARTSET #9555) 02/23/2023 02/23/2022 *NEPHROLOGY REFERRAL DUE TO RESISTANT [...] filedocumented as of this encounter Care Teams Goat Driver Relationship Specialty Start Date End Date Britney Ko CRNP [address] [place] [address] PCP - General Nurse Practitioner 09/22/21 documented as of this encounter
--- OUTSIDE RECORDS SUMMARY | 2023-05-03 07:29 | External Medical Summary | Summary of Care ---
Author Name Unknown Organization [facility] Address [address] [facility] [place] [address] Phone [phone] Care Team Providers Care Customer Training Specialist Name Role Phone Britney Ko Collette MAHONEY Primary Care Provider Reason for Visit * Reason Onset Date Comments Appointment 03/31/2023 Encounter Details Date Type Department Care Team (Late st Contact Info) Description 03/31/2023 Telephone Radiology [address] [place] [id number] Tiesha Samaniego TECH Appointment Allergies Active Allergy Reactions Criticality Noted Date Comments Sulfa Antibiotics 11/03/2016 Trimethoprim 04/14/1997 rash documented as of this encounter (statuses as of 03/31/2023) Medications Medication Sig Dispensed Refills Start Date [...] 140/90,Hyponatremia ,Valvular heart disease,PAD (peripheral artery disease) ([facility]),Dyslipidemia, goal LDL below 70 TAKE [...] mgIndications:COPD, group B, by GOLD 2017 classification ([facility]) 2.5 mg NEBULIZER PRN 12/08/2022 12/08/2023 Acti ve Albuterol Sulfate (Proventil) (5 MG/ML) 0.5% *conc* inhalation solution 2.5 mgIndications:COPD, group B, by GOLD 2017 classification ([facility]) 2.5 mg NEBULIZER PRN 12/08/2022 12/08/2023 Acti ve documented as of this encounter (statuses as of 03/31/2023) Active Problems Problem Noted Date Diagnosed Date [...] as of this encounter (statuses as of 03/31/2023) Resolved Problems Problem Noted Date Diagnosed Date [...] as of this encounter (statuses as of 03/31/2023) Immunizations Name Administration Dates Next Due COVID-19 mRNA, LNP-s, No Pre serve, 2-Dose Series (Pfizer) 04/22/2021,08/25/2020,08/04/2020 Pneumococcal Conjugate Vacc, 13 Valent (Prevnar) [...] oz pu re alcohol) Last alcohol intake 03/21/23 PHQ-2 Answer Date Recorded PHQ Adult Total Score 2 12/28/2020 Sex and Gender Information Value Date Recorded Sex Assigned at Female 09/22/2021 11:32 AM EDT Gender Identity Female 09/22/2021 11:32 AM EDT Sexual Orientation Straight 09/22/2021 11 :32 AM EDT Job Start Date Occupation Industry Not on file Not on file Not on file documented as of this encounter Plan of Treatment Upcoming Encounters Date Type Department Care Team (Late st Contact Info) Description 04/01/2023 4:00 PM EST Imaging Radiology [facility] 1st [facility], [address] [address] 04/10/2023 6:10 PM EST Anticoagulation Pharmacy, [address] [place] [address] [facility] [address] [place] [address] 05/02/2023 1:30 PM EST Office Visit Cardiology, [address] [address] Renetta Glynn PA-C 132 [facility] [address] 05/24/2023 1:00 PM EST Imaging Vascular Lab, [facility] 2nd [facility], [address] [place] [address] 06/07/2023 2:10 PM EST Office Visit Vascular Surgery, [address] [address] Killian Gan MD [address] [place] [address] Scheduled Procedures Name Priority Associated [...] filedocumented as of this encounter Care Teams Customer Training Specialist Relationship Specialty Start Date End Date Britney Ko CRNP 132 [place] [address] PCP - General Nurse Practitioner 09/22/21 documented as of this encounter
--- OUTSIDE RECORDS SUMMARY | 2023-05-03 07:29 | External Medical Summary | Summary of Care ---
Author Name Unknown Organization [facility] Address [address] [facility] [address] Phone [phone] Care Team Providers Care Bale Tie Machine Operator Name Role Phone Britney Ko Primary Care Provider Encounter Details Date Type Department Care Team (Late st Contact Info) Description 04/06/2023 Telephone Family Practice [facility] [address] [place] [address] Sherron Villalpando MD [address] [place] [address] Allergies Active Allergy Reactions Criticality Noted Date [...] 24 Hour (toPROL XL)Indications:Perm anent atrial fibrillation ([facility]),History of alcohol abuse,Tobacco abuse,HTN, goal below 140/90,Hyponatremia ,Valvular heart disease,PAD (peripheral artery disease) ([facility]),Dyslipidemia, goal LDL below 70 TAKE 1 TABLET [...] B, by GOLD 2017 classification ([facility]) 2.5 mg NEBULIZER PRN 12/08/2022 12/08/2023 Acti ve Albuterol Sulfate (Proventil) (5 MG/ML) 0.5% *conc* inhalation solution 2.5 mgIndications:COPD, group B, by GOLD 2017 classification ([facility]) 2.5 mg NEBULIZER PRN 12/08/2022 12/08/2023 Acti [...] encounter Miscellaneous Notes * Telephone Encounter - Kaleigh Jerome MED [...] Care Team (Late st Contact Info) Description 04/10/2023 6:10 PM EST Anticoagulation Pharmacy, [address] [place] [address] [facility] [address] [place] [address] 05/02/2023 1:30 PM EST Office Visit Cardiology, [facility] [address] [place] [address] Renetta Glynn PA-C [address] [place] [address] 05/24/2023 1:00 PM EST Imaging Vascular Lab, [facility] II 2nd Floor, [place] [address] [place] [address] 06/07/2023 2:10 PM EST Office Visit Vascular Surgery, [facility] [place] [address] Killian Gan MD [address] [place], [place] [id number] Scheduled Procedures Name Priority Associated Diagnoses Date/Ti [...] filedocumented as of this encounter Care Teams Bale Tie Machine Operator Relationship Specialty Start Date End Date Britney Ko CRNP 132 [place] [address] PCP - General Nurse Practitioner 09/22/21 documented as of this encounter
--- OUTSIDE RECORDS SUMMARY | 2023-05-03 07:29 | External Medical Summary | Summary of Care ---
Author Name Unknown Organization [facility] Address [address] [facility] [place] [address] Phone [phone] Care Team Providers Care Group Activities Aide Name Role Phone Britney Ko Primary Care Provider Reason for Visit * Reason Comments Dosage Adjustment Via Phone (anticoag Cl inic) Encounter Details Date Type Department Care Team (Latest Contact Info) Description 03/27/2023 5:10 PM [facility] Anticoagulation Pharmacy, [facility] 132 [facility] [place] [address] [facility] 132 [facility] [place] [address] Anticoagulation management encounter* Allergies Active Allergy Reactions Criticality Noted Date Comments Sulfa Antibiotics 11/03/2016 Trimethoprim 04/14/1997 rash documented as of this encounter (statuses as of 03/27/2023) Medications Medication Sig Dispensed Refills Start Date [...] as of this encounter (statuses as of 03/27/2023) Active Problems Problem Noted Date Diagnosed Date [...] as of this encounter (statuses as of 03/27/2023) Resolved Problems Problem Noted Date Diagnosed Date [...] as of this encounter (statuses as of 03/27/2023) Immunizations Name Administration Dates Next Due COVID-19 mRNA, LNP-s, No Pre serve, 2-Dose Series ([employer]) 04/22/2021,08/25/2020,08/04/2020 Pneumococcal Conjugate Vacc, 13 Valent (Prevnar) [...] Progress Notes * Gaby Andrea RPh - 03/27/2023 10:19 AM EST Patient Phone Numbers Left message for patient to return call to schedule next OFS. Gaby Andrea, Pharm D, BCACP Clinical Pharmacist 03/27/2023, 10:21 AM documented in this encounter Plan of Treatment Upcoming Encounters Date Type Department Care Team (Late st Contact Info) Description 04/01/2023 4:00 PM EST Imaging Radiology [facility] 1st [facility] 132 [facility] [place] [address] 04/10/2023 6:10 PM EST Anticoagulation Pharmacy, [facility] 132 [facility] [place] [address] [facility] [place] [address] [facility] [place] [address] 05/02/2023 1:30 PM EST Office Visit Cardiology, [facility] 132 [facility] [place] [address] Renetta Glynn PA-C [address] [place] [address] 05/24/2023 1:00 PM EST Imaging Vascular Lab, [facility] II 2nd [facility] [place] [address] [place] [address] 06/07/2023 2:10 PM EST Office Visit Vascular Surgery, [facility] [address] [place] [address] Killian Gan MD [address] [place] [address] Scheduled Procedures Name Priority Associated Diagnoses Date/Ti me COLONOSCOPY FLEXIBLE PROXIMA L DIAGNOSTIC Recall Encounter for screening colonoscopy Health Maintenance Due Date Last Done Comments Hepatitis B (1 of 3 - Risk 3-dose series) 2013 Depression Screening 12/28/2021 12/28/2020 COVID-19 Vaccine ( season) 2023 04/22/2021, 08/25/2020, 08/04/2020 DISCUSS TOBACCO CESSATION (REFER TO SMARTSET #7600) 02/23/2023 02/23/2022 *NEPHROLOGY REFERRAL DUE TO RESISTANT [...] monitoring documented in this encounter Care Teams Group Activities Aide Relationship Specialty Start Date End Date Britney Ko CRNP [address] [place] [address] PCP - General Nurse Practitioner 09/22/21 documented as of this encounter
--- OUTSIDE RECORDS SUMMARY | 2023-05-03 07:29 | External Medical Summary | Summary of Care ---
Author Name Unknown Organization [facility] Address [address] [facility] [address] Phone [phone] Care Team Providers Care Link Assembler Name Role Phone Britney Ko Primary Care Provider Encounter Details Date Type Department Care Team (Late st Contact Info) Description 04/06/2023 Telephone Family Practice [facility] [address] [place] [address] Sherron Villalpando MD [address] [place] [address] Allergies Active Allergy Reactions Criticality Noted Date Comments Sulfa Antibiotics 11/03/2016 Trimethoprim 04/14/1997 rash documented as of this encounter (statuses as of 04/07/2023) Medications Medication Sig Dispensed Refills Start Date [...] 24 Hour (toPROL XL)Indications:Perm anent atrial fibrillation ([facility]),History of alcohol abuse,Tobacco abuse,HTN, goal below 140/90,Hyponatremia ,Valvular heart disease,PAD (peripheral artery disease) ([facility]),Dyslipidemia, goal LDL below 70 TAKE 1 TABLET [...] B, by GOLD 2017 classification ([facility]) 2.5 mg NEBULIZER PRN 12/08/2022 12/08/2023 Acti ve Albuterol Sulfate (Proventil) (5 MG/ML) 0.5% *conc* inhalation solution 2.5 mgIndications:COPD, group B, by GOLD 2017 classification ([facility]) 2.5 mg NEBULIZER PRN 12/08/2022 12/08/2023 Acti ve documented as of this encounter (statuses as of 04/07/2023) Active Problems Problem Noted Date Diagnosed Date [...] as of this encounter (statuses as of 04/07/2023) Resolved Problems Problem Noted Date Diagnosed Date [...] as of this encounter (statuses as of 04/07/2023) Immunizations Name Administration Dates Next Due COVID-19 mRNA, LNP-s, No Pre serve, 2-Dose Series ([employer]) 04/22/2021,08/25/2020,08/04/2020 Pneumococcal Conjugate Vacc, 13 Valent (Prevnar) [...] encounter Miscellaneous Notes * Telephone Encounter - Emani James LPN [...] Description 04/10/2023 6:10 PM EST Anticoagulation Pharmacy, [facility] 132 [place] [address] [facility] 132 [place] [address] 05/02/2023 1:30 PM EST Office Visit Cardiology, [facility] 132 [place] [address] Renetta Glynn PA-C [address] [place] [address] 05/24/2023 1:00 PM EST Imaging Vascular Lab, [facility] 2nd Floor, [place] 132 [facility] [place] [address] 06/07/2023 2:10 PM EST Office Visit Vascular Surgery, [facility] 132 [facility] [place] [address] Killian Gan MD 100 [address] [facility] [place] [address] Scheduled Procedures Name Priority Associated Diagnoses Date/Ti [...] filedocumented as of this encounter Care Teams Link Assembler Relationship Specialty Start Date End Date Britney Ko CRNP 132 [place] [address] PCP - General Nurse Practitioner 09/22/21 documented as of this encounter
--- OUTSIDE RECORDS SUMMARY | 2023-05-03 07:29 | External Medical Summary | Summary of Care ---
Author Name Unknown Organization [facility] Address [address] [facility] [place] [address] Phone [phone] Care Team Providers Care Leach Tank Tender Name Role Phone Britney Ko Primary Care Provider Reason for Visit * Reason Comments Dosage Adjustment Via Phone (anticoag Cl inic) Encounter Details Date Type Department Care Team (Latest Contact Info) Description 03/27/2023 5:10 PM [facility] Anticoagulation Pharmacy, [facility] 132 [facility] [place] [address] [facility] 132 [facility] [place] [address] Anticoagulation management encounter* Allergies Active Allergy Reactions [...] mRNA, LNP-s, No Pre serve, 2-Dose Series ([employer]) 04/22/2021,08/25/2020,08/04/2020 Pneumococcal Conjugate Vacc, 13 Valent (Prevnar) [...] Description 04/01/2023 4:00 PM EST Imaging Radiology [facility]st [facility] [address] [facility] [place] [address] 04/10/2023 6:10 PM EST Anticoagulation Pharmacy, [facility] [address] [facility] [place] [address] [facility] [place] [address] [facility] [place] [address] 05/02/2023 1:30 PM EST Office Visit Cardiology, [facility] [address] [facility] [place] [address] Renetta Glynn PA-C [address] [place] [address] 05/24/2023 1:00 PM EST Imaging Vascular Lab, [facility] 2nd [facility] [place] [address] [place] [address] 06/07/2023 2:10 PM EST Office Visit Vascular Surgery, [facility] [address] [place] [address] Killian Gan MD [address] [place] [address] Scheduled Procedures Name Priority Associated Diagnoses Date/Ti me COLONOSCOPY FLEXIBLE PROXIMA L DIAGNOSTIC Recall Encounter for screening colonoscopy Health Maintenance Due Date Last Done Comments Hepatitis B (1 of 3 - Risk 3-dose series) 2013 Depression Screening 12/28/2021 12/28/2020 COVID-19 Vaccine ( season) 2023 04/22/2021, 08/25/2020, 08/04/2020 DISCUSS TOBACCO CESSATION (REFER TO SMARTSET #7287) 02/23/2023 02/23/2022 *NEPHROLOGY REFERRAL DUE TO RESISTANT [...] monitoring documented in this encounter Care Teams Leach Tank Tender Relationship Specialty Start Date End Date Britney Ko CRNP [address] [place] [address] PCP - General Nurse Practitioner 09/22/21 documented as of this encounter
--- OUTSIDE RECORDS SUMMARY | 2023-05-03 07:30 | External Medical Summary | Summary of Care ---
Author Name Unknown Organization [facility] Address [address] , [place] Care Team Providers Care Conference Director Name Role Phone Britney Ko Primary Care Provider Reason for Visit * Reason Onset Date Comments FYI 03/23/2023 Encounter Details Date Type Department Care Team (Late st Contact Info) Description 03/23/2023 Telephone Pharmacy, [facility] [address] [facility] [place] [address] [facility] [address] [place] [address] FYI (/) Allergies Active Allergy Reactions Criticality Noted Date Comments Sulfa Antibiotics 11/03/2016 Trimethoprim 04/14/1997 rash documented as of this encounter (statuses as of 03/23/2023) Medications Medication Sig Dispensed Refills Start Date [...] 24 Hour (toPROL XL)Indications:Perm anent atrial fibrillation ([facility]),History of alcohol abuse,Tobacco abuse,HTN, goal below 140/90,Hyponatremia ,Valvular heart disease,PAD (peripheral artery disease) ([facility]),Dyslipidemia, goal LDL below 70 TAKE 1 [...] mgIndications:COPD, group B, by GOLD 2017 classification ([facility]) 2.5 mg NEBULIZER PRN 12/08/2022 12/08/2023 Acti ve Albuterol Sulfate (Proventil) (5 MG/ML) 0.5% *conc* inhalation solution 2.5 mgIndications:COPD, group B, by GOLD 2017 classification ([facility]) 2.5 mg NEBULIZER PRN 12/08/2022 12/08/2023 Acti ve documented as of this encounter (statuses as of 03/23/2023) Active Problems Problem Noted Date Diagnosed Date [...] as of this encounter (statuses as of 03/23/2023) Resolved Problems Problem Noted Date Diagnosed Date [...] as of this encounter (statuses as of 03/23/2023) Immunizations Name Administration Dates Next Due COVID-19 [...] encounter Miscellaneous Notes * Telephone Encounter - Gaby Andrea RPh - 03/23/2023 8:39 AM EDT Patient Phone Numbers Attempted to call patient, phone rings without answer, will attempt to contact at a later date. Gaby Andrea, Pharm D, BCACP Clinical Pharmacist 03/23/2023, 8:40 AM * Telephone Encounter - Kelley Naylor PHARM Tech - 03/23/2023 8:30 AM EDT Caller's name: Michelle Preferred call back number(OFFICE NUMBER FOR ): [phone] Reason for call: patient calling to cancel today's appointment for her INR, I offered to rescheduleit but patient wanted to reschedule for May of next year, I explained I could not schedule her that far out, patient states she hurt her back, I offered GML but she declined stating she would wait until she feels better. Kelley Naylor MA Embossing Machine Operator Helper I [facility] ([facility]) [address] [facility] [phone] [place] [address] ext [phone] documented in this encounter Plan of Treatment Upcoming Encounters Date Type Department Care Team (Late st Contact Info) Description 03/27/2023 5:10 PM EST Anticoagulation Pharmacy, [facility] 132 [facility] [place] [address] [facility] 132 [facility] [place] [address] 04/01/2023 4:00 PM EST Imaging Radiology [facility] 1st [facility] [place] 132 [facility] [place] [address] 05/02/2023 1:30 PM EST Office Visit Cardiology, [facility] 132 [facility] [place] [address] Renetta Glynn, PAChris 132 [facility] [place] [address] 05/24/2023 1:00 PM EST Imaging Vascular Lab, [facility] 2nd [facility], [address] [place] [address] 06/07/2023 2:10 PM EST Office Visit Vascular Surgery, [address] [address] Killian Gan MD [address] [place], [place] [address] 07/27/2023 11:20 AM EST Office Visit Rheumatology [address] [address] Tanner Alston MD [address] [place] [address], [place] [address] Scheduled Procedures Name Priority Associated Diagnoses Date/Ti [...] filedocumented as of this encounter Care Teams Conference Director Relationship Specialty Start Date End Date Britney Ko CRNP [address] [place] [address] PCP - General Nurse Practitioner 09/22/21 documented as of this encounter
--- OUTSIDE RECORDS SUMMARY | 2023-05-03 07:30 | External Medical Summary | Summary of Care ---
Author Name Unknown Organization [facility] Address [address] [facility] [place] [address] Phone [phone] Care Team Providers Care 3Rd Mate Name Role Phone Britney Ko Primary Care Provider Reason for Visit * Reason Comments Dosage Adjustment Via Phone (anticoag Cl inic) Encounter Details Date Type Department Care Team (Latest Contact Info) Description 03/27/2023 5:10 PM [facility] Anticoagulation Pharmacy, [facility] [address] [facility] [place] [address] [facility] [address] [facility] [place] [address] Anticoagulation management encounter* Allergies Active Allergy Reactions [...] mgIndications:COPD, group B, by GOLD 2017 classification ([facility]) 2.5 mg NEBULIZER PRN 12/08/2022 12/08/2023 Acti ve Albuterol Sulfate (Proventil) (5 MG/ML) 0.5% *conc* inhalation solution 2.5 mgIndications:COPD, group B, by GOLD 2017 classification ([facility]) 2.5 mg NEBULIZER PRN 12/08/2022 [...] mRNA, LNP-s, No Pre serve, 2-Dose Series ([employer]) 04/22/2021,08/25/2020,08/04/2020 Pneumococcal Conjugate Vacc, 13 Valent (Prevnar) [...] Description 04/01/2023 4:00 PM EST Imaging Radiology [facility] 1st [facility] [address] [facility] [place] [address] 04/10/2023 6:10 PM EST Anticoagulation Pharmacy, [facility] [address] [facility] [place] [address] [facility] [place] [address] [facility] [place] [address] 05/02/2023 1:30 PM EST Office Visit Cardiology, [facility] [address] [facility] [place] [address] Renetta Glynn PA-C [address] [place] [address] 05/24/2023 1:00 PM EST Imaging Vascular Lab, [facility]nd [facility] [place] [address] [place] [address] 06/07/2023 2:10 PM EST Office Visit Vascular Surgery, [facility] [address] [place] [address] Killian Gan MD [address] [place] [address] Scheduled Procedures Name Priority Associated Diagnoses Date/Ti me COLONOSCOPY FLEXIBLE PROXIMA L DIAGNOSTIC Recall Encounter for screening colonoscopy Health Maintenance Due Date Last Done Comments Hepatitis B (1 of 3 - Risk 3-dose series) 2013 Depression Screening 12/28/2021 12/28/2020 COVID-19 Vaccine ( season) 2023 04/22/2021, 08/25/2020, 08/04/2020 DISCUSS TOBACCO CESSATION (REFER TO SMARTSET #9537) 02/23/2023 02/23/2022 *NEPHROLOGY REFERRAL DUE TO RESISTANT [...] monitoring documented in this encounter Care Teams 3Rd Mate Relationship Specialty Start Date End Date Britney Ko CRNP [address] [place] [address] PCP - General Nurse Practitioner 09/22/21 documented as of this encounter
--- OUTSIDE RECORDS SUMMARY | 2023-05-03 07:30 | External Medical Summary | Summary of Care ---
Author Name Unknown Organization [facility] Address [address] [facility] [place] [address] Phone [phone] Care Team Providers Care Fund Director Name Role Phone Britney Grigsby Collette MAHONEY Primary Care Provider Reason for Visit * Reason Onset Date Comments Medication Refill 03/03/2023 Encounter Details Date Type Department Care Team Description 03/03/2023 Refill Cardiology, [facility] [address] [place] [id number] Renetta Glynn PA-C [address] [place] [address] Allergies Active Allergy Reactions Severity Noted Date Comments Sulfa Antibiotics 11/03/2016 Trimethoprim 04/14/1997 rash documented as of this encounter (statuses as of 03/03/2023) Medications Medication Sig Dispensed Refills Start Date [...] 140/90,Hyponatremi a,Valvular heart disease,PAD (peripheral artery disease) (HCC),Dyslipidemia , goal LDL below 70 TAKE 1 [...] as directed 30 Tablet 5 03/03/2023 Active Warfarin Sodium 10 MG Oral Tablet (Coumadin) take 1 tablet by mouth every evening 30 Tablet 0 08/23/2022 3 Discontinue d(Refill) Hospital, Clinic, or Other Facility Administered Medication Ordered Dose Route Frequency Start Date End Date Status Albuterol Sulfate (Proventil) (2.5 MG/3ML) 0.083% inhalation solution 2.5 mgIndications:COPD, group B, by GOLD 2017 classification ([facility]) 2.5 mg NEBULIZER PRN 12/08/2022 12/08/2023 Acti ve Albuterol Sulfate (Proventil) (5 MG/ML) 0.5% *conc* inhalation solution 2.5 mgIndications:COPD, group B, by GOLD 2017 classification (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 11/30/2021 CHENG (generalized anxiety disorder) 11/30 COPD, group B, by GOLD 2017 classificati on 09/27/2021 Overview: Per COPD GOLD Classification PAD (peripheral artery disease) 05/04/20 22 Pain in both feet 08/24/2021 Neuropathy 08/24/2021 Unequal leg length 04/10/2020 Chronic atrial fibrillation 06/18/2019 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 06/18/2019 Non-rheumatic mitral regurgitation 01/09 Alcohol abuse 12/31/2018 History of colon polyps 10/03/2018 History of breast cancer 10/03/2018 Overview: Overlapping sites of L breast-ER - History of pleural effusion 08/06/2018 PHT (pulmonary hypertension) 08/06/2018 Lung nodules 08/06/2018 History of alcohol abuse 12/11/2016 History of vertebral compression fractur e 12/08/2016 Essential tremor 09/26/2016 Depression with anxiety 03/30/2016 Encounter for smoking cessation counseli ng 05/19/2015 Dyslipidemia, goal LDL below 130 014 Insomnia 07/10/2012 HTN, goal below 140/90 12/27/2011 ADVANCE DIRECTIVE INFORMATION 12/20/2005 Overview: Information offered-patient declined PURE HYPERCHOLESTEROLEM 03/24/2003 Overview: Per Lipid Taxonomy. Tobacco abuse 07/14/1997 documented as of this encounter (statuses as of 03/03/2023) Resolved Problems Problem Noted Date Resolved Date Grief at loss of child 11/30/2021 3 Centrilobular emphysema 09/22/2021 02/24/20 22 Prediabetes 02/01/2021 11/03/2022 Overview: Per Prediabetes protocol COPD, severity to be determined 03/14/2017 09/30/2021 Overview: Per COPD GOLD Classification Radiation pneumonitis 09/26/2016 02/20/2019 Chronic atrial fibrillation 08/29/201611/20 Persistent atrial fibrillation 08/24/2016 1 Malignant neoplasm of left female breast 016 10/03/2018 Cancer Staging:Clinical: Unsigned Pathologic:Stage IA(T1c, N0) - Unsigned Breast cancer, female 08/18/2015 08/18/2015 Pre-operative cardiovascular examination 015 03/14/2017 Paroxysmal atrial fibrillation 05/06/2015 0 08/29/2016 Breast cancer, female 04/21/2015 08/15/2016 Adjustment disorder with depressed mood 07/10/19 13 12/30/2015 Tremor 08/22/2011 03/22/2013 Alcohol ingestion, more than 4 drinks/day on alcohol screening 08/22/2011 03/22/2013 Elevated blood pressure, situational 09/20/2010 12/27/2011 Dyslipidemia, goal to be determined 04/30/2009 06/12/2013 Overview: Per Lipid Taxonomy. Benign neoplasm of colon 02/26/2007 019 Overview: hyperplastic repeat colonoscopy in 10 yrs Trigger finger 03/06/2001 03/14/2017 documented as of this encounter (statuses as of 03/03/2023) Immunizations Name Administration Dates Next Due COVID-19 mRNA, LNP-s, No Pre serve, 2-Dose Series ([employer]) 04/22/2021,08/25/2020,08/04/2020 Pneumococcal Conjugate Vacc, 13 Valent (Prevnar) [...] pu re alcohol) Last alcohol intake 08/09/22 Sex Assigned at Date Recorded Female 09/22/2021 11:32 AM EDT Job Start Date Occupation Industry Not on file Not on file Not on file documented as of this encounter Miscellaneous Notes * Telephone Encounter - Gaby Andrea [facility] - 03/03/2023 1:51 PM EDT Signed Prescriptions: Disp Refills Warfarin Sodium 10 MG Oral Tablet (Coumadi*30 Tab*5 Sig: Take up to 1 tablet by mouth every evening as directed Authorizing Provider: BRITNEY GRIGSBY User: GABY ANDREA * Telephone Encounter - Rahul Thomas, [facility] - 03/03/2023 1:11 PM EDTPending Prescriptions: Disp Refills Warfarin Sodium 10 MG Oral Tablet (Coumadi*30 Tab*5 Sig: Take up to 1 tablet by mouth every evening as directed * Telephone Encounter - Rahul Thomas [facility] - 03/03/2023 1:09 PM EDT Last authorized in Epic per cardiology, however per review of med list and adherence tool script was authorized by Nick Grullon DO ([facility]). Please review and authorize as you see appropriate. Thanks, Rahul Thomas Pharm.D. Clinical Pharmacist [facility] ([facility])(Formerly Telepharmacy) [phone] 03/03/2023, 1:10 PM * Telephone Encounter - Luiza Johnson [facility] - 03/03/2023 12:04 PM EDT Patient needs ordered today Did you pend patient's preferred pharmacy and medication before forwarding?yes Pharmacy: [facility] Pending Prescriptions: Disp Refills Warfarin Sodium 10 MG Oral Tablet (Coumad*30 Tab*0 Sig: take 1 tablet by mouth every evening, Last Visit: 03/01/2023 (in office), Visit date not found (telemedicine) Next Visit: Visit date not found If no future appointments scheduled, and last appointment is greater than a year ago, please schedule patient for a follow-up appointment Last date the medication was ordered: [id number] Is this request for a controlled substance?No Urine Drug Screen:No results found. However, due to the size of the patient record, not all encounters were searched. Please check Results Review for a complete set of results. Patient Phone Numbers Labs: Lab Results Component [...] Plan of Treatment Upcoming Encounters Date Type Specialty Care Team Description 03/22/2023 Anticoagulation Pharmacy [facility] [address] [place] [address] 03/23/2023 Imaging Radiology 04/05/2023 Office Visit Vascular Surgery Killian Gan MD [address] [place] [address] 05/02/2023 Office Visit Cardiology Renetta Glynn PA-C [address] [place] [address] 07/27/2023 Office Visit Rheumatology Tanner Alston MD [address] [place] [place] [address] Scheduled Procedures Name Priority Associated Diagnoses Date/Ti me COLONOSCOPY FLEXIBLE PROXIMA L DIAGNOSTIC Recall Encounter for screening colonoscopy Health Maintenance Due Date Last Done Comments Depression Screening 12/28/2021 12/28/2020 COVID-19 Vaccine ( [...] on patient's age to complete this topic Hepatitis B Aged Out No longer eligi ble based on patient's age to complete this topic MENINGOCOCCAL (MENACTRA/MENVEO) Aged Out No longer eligible based on patient's age to complete this topic Sigmoidoscopy Discontinued documented as of this encounter Medical Devices Not on filedocumented as of this encounter Care Teams Fund Director Relationship Specialty Start Date End Date Britney Grigsby CRNP [address] [place] [address] PCP - General Nurse Practitioner 09/22/21 documented as of this encounter
--- OUTSIDE RECORDS SUMMARY | 2023-05-03 07:30 | External Medical Summary | Summary of Care ---
Author Name Unknown Organization [facility] Address [address] [facility] [place] [address] Phone [phone] Care Team Providers Care Photo Cartographer Name Role Phone Britney Ko Collette MAHONEY Primary Care Provider Reason for Visit * Reason Onset Date Comments Back Pain Lower back - rad iates down both legs - started about 3 to 4 days ago; states she does have tingling to left hand and both feet for a long time, but nothing new Medication Administration 03/01/2023 Flu an d/or Pneumo Inj Encounter Details Date Type Department Care Team Description 03/01/2023 Office Visit Family Practice [facility] [address] [facility] [place] [address] Sherron Villalpando MD [address] [place] [id number] Lumbar back pain*; Need for prophylactic vaccination and inoculation against influenza Allergies Active Allergy Reactions Severity Noted Date Comments Sulfa Antibiotics 11/03/2016 Trimethoprim 04/14/1997 rash documented as of this encounter (statuses as of 03/01/2023) Medications Medication Sig Dispensed Refills Start Date [...] 400g tubes. 400 g 0 06/29/2022 Active Warfarin Sodium 10 MG Oral Tablet (Coumadin) take 1 tablet by mouth every evening 30 Tablet 0 08/23/2022 Active Metoprolol Succinate ER 50 MG Oral [...] 03/01/2023 Rosuvastatin Calcium 20 MG Oral Tablet (Crestor)Delroy ns:Dyslipidemia, goal LDL below 160,Dyslipidemia, goal LDL [...] package directions 21 Tablet 0 03/01/2023 Active methylPREDNISolone 4 MG Oral Tablet Therapy Pack (Medrol Dosepack)Indicatio ns:Acute midline low back pain without sciatica follow package directions 21 Tablet 0 01/03/2023 3 Discontinue d(Refill) Hospital, Clinic, or Other Facility Administered Medication Ordered Dose Route Frequency Start Date End Date Status Albuterol Sulfate (Proventil) (2.5 MG/3ML) 0.083% inhalation solution 2.5 mgIndications:COPD, group B, by GOLD 2017 classification ([facility]) 2.5 mg NEBULIZER PRN 12/08/2022 12/08/2023 Acti ve Albuterol Sulfate (Proventil) (5 MG/ML) 0.5% *conc* inhalation solution 2.5 mgIndications:COPD, group B, by GOLD 2017 classification (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 11/30/2021 CHENG (generalized anxiety disorder) 11/30 COPD, group B, by GOLD 2017 classificati on 09/27/2021 Overview: Per COPD GOLD Classification PAD (peripheral artery disease) 09/23/19 Pain in both feet 08/24/2021 Neuropathy 08/24/2021 [...] as of this encounter (statuses as of 03/01/2023) Resolved Problems Problem Noted Date Resolved Date Grief at loss of child 11/30/2021 3 Centrilobular emphysema 09/22/2021 02/24/20 22 Prediabetes 02/01/2021 11/03/2022 Overview: Per Prediabetes protocol COPD, severity to be determined 03/14/2017 09/30/2021 Overview: Per COPD GOLD Classification Radiation pneumonitis 09/26/2016 02/20/2019 Chronic atrial fibrillation 08/29/2016 07/2 07/2016 Persistent atrial fibrillation 08/24/2016 1 Malignant neoplasm [...] as of this encounter (statuses as of 03/01/2023) Immunizations Name Administration Dates Next Due COVID-19 mRNA, LNP-s, No Pre serve, 2-Dose Series ([employer]) 04/22/2021,08/25/2020,08/04/2020 Pneumococcal Conjugate Vacc, 13 Valent (Prevnar) [...] Day Cigarettes 1 44 Smokeless Tobacco: Never Tobacco Cessation:Ready to Q uit: No; Counseling Given: No Comments:12/14/22 smokes about 1 pack a day - refused pamphlet Alcohol Use Standard Drinks/Week Comments Yes 14 (1 standard drink = 0.6 oz pu re alcohol) Last alcohol intake 08/09/22 Sex Assigned at Date Recorded Female 09/22/2021 11:32 AM EDT Job Start Date Occupation Industry Not on file Not on file Not on file documented as of this encounter Last Filed Vital Signs Vital Sign Reading Time Taken Comments Blood Pressure 150/88 03/01/2023 2:22 PM EDT Pulse 84 03/01/2023 2:22 PM EDT Temperature 36.7 C (98.1 F) 03/01/2023 2:22 PM ED T Respiratory Rate 12 03/01/2023 2:22 PM EDT Oxygen Saturation - - Inhaled Oxygen Concentration - - Weight 56.6 kg (124 lb 12.8 oz) 03/01/2023 2:22 PM EDT Height - - Body Mass Index 22.25 02/27/2023 11:25 AM EDT documented in this encounter Patient Instructions * Patient Instructions* Sherron Villalpando MD - 03/01/2023 2:25 PM EDT Back pain: -- we are getting an X-ray to make sure there isn't a sign of a fracture -- I sent a prescription for a muscle relaxer and the medrol dose pack to your pharmacy. -- you can use heating pad for 20-30min at a time. More than that causes a rash. -- you can try topical pain medications, like icy hot, lidocaine, volateren. Whatever works is fineto use -- go back to PT as soon as you are able ~~PATIENT INSTRUCTIONS FOR FLU SHOT~~ Possible side effects of influenza vaccine, (flu shot), are usually mild and include: 1. Soreness or redness at injection site 2. Low grade fever 3. Body aches You may use Tylenol/Acetaminophen as needed for these symptoms. LET YOUR DOCTOR KNOW IMMEDIATELY IF YOU HAVE DIFFICULTY BREATHING OR SWALLOWING, EXPERIENCE ITCHINGOF FEET OR HANDS, HAVE SWELLING OF EYES, FACE OR INSIDE OF NOSE. documented in this encounter Progress Notes * Sherron Villalpando MD - 03/01/2023 2:32 PM EDT Images from the original note were not included. History of Present Illness Mcihelle Puente is a 67 year old female that presents for Back Pain (Lower back - radiates down both legs - started about 3 to 4 days ago; states she does have tingling to left hand and both feet for a long time, but nothing new) and Medication Administration (Flu and/or Pneumo Inj) Acute back pain that started while getting out of bed 3-4 days ago. No injury, did not fall. Pain has been severe it radiates into both upper thighs. Lumbar pain. Sat on heating pad all day yesterday, helps a little bit. No longer has any Flexeril from most recent bout of back pain in December. Can not recall the details of that back pain or whether Dosepak was helpful. No fevers or chills. Urinaryincontinence is at baseline, no fecal incontinence. No saddle anesthesia, no lower extremity numbness or weakness. medication and allergy list reviewed Past medical history and problem list reviewed. Notable for COPD, pulmonary hypertension CHF, hypertension, AFib, peripheral arterial disease, dyslipidemia, alcohol abuse, tobacco abuse, history of breast cancer. Physical Exam Vitals: 03/01/23 1422 Temp: 36.7 C (98.1 F) Pulse: 84 Resp: 12 BP: 150/88 BP Readings from Last 3 Encounters: 03/01/23 150/88 02/27/23 132/80 01/13/23 146/78 Wt Readings from Last 3 Encounters: 03/01/23 56.6 kg (124 lb 12.8 oz) 02/27/23 57.2 kg (126 lb) 12/23/22 56.1 kg (123 lb 9.6 oz) Physical Exam Vitals and nursing note reviewed. Constitutional: Appearance: Normal appearance. Musculoskeletal: Comments: Generalized tenderness in lumbar paraspinal muscles Tender over lumbar spine and SI joints Faint erythema ab igne rash Distal sensation at baseline in feet bilaterally 2+ patellar and ankle reflexes, no ankle clonus Strength 5/5 lower extremities bilaterally Neurological: Mental Status: She is alert. I have reviewed the following results: CMP and CBC Assessment and Plan Lumbar back pain Patient Instructions Back pain: -- we are getting an X-ray to make sure there isn't a sign of a fracture -- I sent a prescription for a muscle relaxer and the medrol dose pack to your pharmacy. -- you can use heating pad for 20-30min at a time. More than that causes a rash. -- you can try topical pain medications, like icy hot, lidocaine, volateren. Whatever works is fineto use -- go back to PT as soon as you are able - XR L SPINE COMPLETE - methylPREDNISolone 4 MG Oral Tablet Therapy Pack (Medrol Dosepack); follow package directions Need for prophylactic vaccination and inoculation against influenza - INFLUENZA VACC, QUAD, HIGH DOSE (FLUZONE HD) Wrap-Up Time: I spent a total of 20-29 minutes (exact time 21 mins) on the date of service in preparation, delivery, and documentation of the care provided to Michelle Puente excluding any time spent in the performance of separately billed services. * Polo Collins RN - 03/01/2023 2:24 PM EDT PRE - ADMINISTRATION DOCUMENTATION Are you experiencing any cold symptoms or fever? No Have you had Guillain-Snowmass Syndrome (an illness that causes paralysis) within the last 6 weeks? No Have you had the flu shot in the past? YES Have you ever had a reaction to the flu shot? No Polo Collins RN, 03/01/2023 2:24 PM documented in this encounter Nursing Notes * Polo Collins RN - 03/01/2023 2:19 PM EDT Chief Complaint Patient presents with Back Pain Lower back - radiates down both legs - started about 3 to 4 days ago; states she does have tinglingto left hand and both feet for a long time, but nothing new Pre-Administration Time Out Procedure Performed: Yes Patient Identified (Ask Name/Date of ): Yes Does the patient have a fever greater than 101 degrees today? No Patient allergic to latex? No Has the patient ever fainted after receiving an injection? No VFC Stock: No Immunization(s) verified: Yes, Immunization Name: Flu, VIS Sheet(s) given: Yes Verified Side and Site: Yes Verified Shot(s) with Parent(s)/Patient: Yes documented in this encounter Plan of Treatment Upcoming Encounters Date Type Specialty Care Team Description 03/22/2023 Anticoagulation Pharmacy [facility] [address] [place] [address] 03/23/2023 Imaging Radiology 04/05/2023 Office Visit Vascular Surgery Killian Gan MD [address] [place], [place] [id number] 05/02/2023 Office Visit Cardiology Renetta Glynn PA-C [address] [place] [address] 07/27/2023 Office Visit Rheumatology Tanner Alston MD [address] [place] [address] Pending Results Name Type Priority Associated Diagnoses Date /Time XR L SPINE COMPLETE Medical Imaging Routine Lumbar back pain 03/01/2023 3:16 PM EDT Scheduled Procedures Name Priority Associated Diagnoses Date/Ti [...] as of this encounter Visit Diagnoses Diagnosis Lumbar back pain- Primary Lumbago Need for prophylactic vaccination and inoculation against influenza documented in this encounter Care Teams Photo Cartographer Relationship Specialty Start Date End Date Britney Ko CRNP [address] [place] [address] PCP - General Nurse Practitioner 09/22/21 documented as of this encounter
--- OUTSIDE RECORDS SUMMARY | 2023-05-03 07:30 | External Medical Summary | Summary of Care ---
Author Name Unknown Organization [facility] Address [address] [facility] [place] [address] Phone [phone] Care Team Providers Care Scene Shifter Name Role Phone Britney Ko Primary Care Provider Reason for Referral * Precert (Within 10 days (routine)) - Authorized Specialty Diagnoses / Procedures Referred By Contac t Referred To Contact Radiology Diagnoses Compression deformity of vertebra Procedures MRI L SPINE WO CONTRAST Sherron Villalpando MD [address] [employer] [place] [address] Referral ID Status Reason Start Date Expiration Date V isits Requested Visits Authorized [id number] Authorized Precert 03/06/2023 04/14/2023 999 999 Reason for Visit * Reason Onset Date Comments Appointment 03/06/2023 Encounter Details Date Type Department Care Team (Late st Contact Info) Description 03/06/2023 Telephone Family Practice [facility] [address] [place] [address] Sherron Villalpando MD [address] [place] [address] Appointment Allergies Active Allergy Reactions Criticality Noted Date Comments Sulfa Antibiotics 11/03/2016 Trimethoprim 04/14/1997 rash documented as of this encounter (statuses as of 03/15/2023) Medications Medication Sig Dispensed Refills Start Date [...] B, by GOLD 2017 classification ([facility]) 2.5 mg NEBULIZER PRN 12/08/2022 12/08/2023 Acti ve Albuterol Sulfate (Proventil) (5 MG/ML) 0.5% *conc* inhalation solution 2.5 mgIndications:COPD, group B, by GOLD 2017 classification ([facility]) 2.5 mg NEBULIZER PRN 12/08/2022 12/08/2023 Acti ve documented as of this encounter (statuses as of 03/15/2023) Active Problems Problem Noted Date Diagnosed Date [...] as of this encounter (statuses as of 03/15/2023) Resolved Problems Problem Noted Date Diagnosed Date [...] as of this encounter (statuses as of 03/15/2023) Immunizations Name Administration Dates Next Due COVID-19 mRNA, LNP-s, No Pre serve, 2-Dose Series ([employer]) 04/22/2021,08/25/2020,08/04/2020 Pneumococcal Conjugate Vacc, 13 Valent (Prevnar) [...] re alcohol) Last alcohol intake 08/09/22 Sex and Gender Information Value Date Recorded Sex Assigned at Female 09/22/2021 11:32 AM EDT Gender Identity Female 09/22/2021 11:32 AM EDT Sexual Orientation Straight 09/22/2021 11 :32 AM EDT Job Start Date Occupation Industry Not on file Not on file Not on file documented as of this encounter Miscellaneous Notes * Telephone Encounter - Aleks Gilliland - 2023 11:15 AM EDT Pt called and scheduled MRI * Telephone Encounter - Anushka Barajas - 03/06/2023 8:52 AM EDT No answer/vm on home number LM on pts cell for her to call back to schedule her MRI * Telephone Encounter - Kaleigh Jerome MED ASSIST - 03/06/2023 8:39 AM EDT Pt informed, questions answered. Please sign then forward to scheduling. Topical pain medications have not been helpful. * Telephone Encounter - Sherron Villalpando MD - 03/06/2023 8:12 AM EDT Please call to review MRI questions. If hasn't read MyG, please review results. documented in this encounter Plan of Treatment Upcoming Encounters Date Type Department Care Team (Late st Contact Info) Description 03/22/2023 10:30 AM EDT Anticoagulation Pharmacy, [facility] [address] [place] [address] [facility], [facility] [address] [place] [address] 03/23/2023 9:30 AM EDT Imaging Vascular Lab, [facility] II 2nd Floor, [address] [place] [address] 04/01/2023 4:00 PM EST Imaging Radiology [facility] 1st [facility], [address] [address] 04/05/2023 9:30 AM EST Office Visit Vascular Surgery, [facility] [address] [place] [address] Killian Gan MD [address] [place] [address] 05/02/2023 1:30 PM EST Office Visit Cardiology, [facility] [address] [place] [address] Renetta Glynn PA-C 132 [place] [address] 07/27/2023 11:20 AM EST Office Visit Rheumatology [place] [id number] [facility] [place] [address] Tanner Alston MD [facility] [place] [address] Scheduled Orders Name Type Priority Associated Diagnoses Orde r Schedule MRI L SPINE WO CONTRAST Medical Imaging Routine Compression deformity of vertebra Expected: 03/06/2023, Expires: 04/06/2024 Scheduled Procedures Name Priority Associated Diagnoses Date/Ti me COLONOSCOPY FLEXIBLE PROXIMA L DIAGNOSTIC Recall Encounter for screening colonoscopy Health Maintenance Due Date Last Done Comments Hepatitis B (1 of 3 - Risk 3-dose series) 2013 Depression Screening 12/28/2021 12/28/2020 COVID-19 Vaccine ( season) 2023 04/22/2021, 08/25/2020, 08/04/2020 DISCUSS TOBACCO CESSATION (REFER TO SMARTSET #3976) 02/23/2023 02/23/2022 *NEPHROLOGY REFERRAL DUE TO RESISTANT [...] Other acquired deformity of back or spine documented in this encounter Care Teams Scene Shifter Relationship Specialty Start Date End Date Britney Ko CRNP [address] [place] [address] PCP - General Nurse Practitioner 09/22/21 documented as of this encounter
--- OUTSIDE RECORDS SUMMARY | 2023-05-03 07:30 | External Medical Summary | Summary of Care ---
Author Name Unknown Organization [facility] Address [address] [facility] [place] [address] Phone [phone] Care Team Providers Care Internet Database Specialist Name Role Phone Britney Ko Primary Care Provider Reason for Visit * Reason Comments Dosage Adjustment Via Phone (anticoag Cl inic) Encounter Details Date Type Department Care Team (Latest Contact Info) Description 03/27/2023 5:10 PM [facility] Anticoagulation Pharmacy, [facility] 132 [facility] [place] [address] [facility] 132 [facility] [place] [address] Anticoagulation management encounter* Allergies Active Allergy Reactions [...] mgIndications:COPD, group B, by GOLD 2017 classification ([facility]) 2.5 mg NEBULIZER PRN 12/08/2022 12/08/2023 Acti ve Albuterol Sulfate (Proventil) (5 MG/ML) 0.5% *conc* inhalation solution 2.5 mgIndications:COPD, group B, by GOLD 2017 classification ([facility]) 2.5 mg NEBULIZER PRN 12/08/2022 [...] mRNA, LNP-s, No Pre serve, 2-Dose Series ([employer]) 04/22/2021,08/25/2020,08/04/2020 Pneumococcal Conjugate Vacc, 13 Valent (Prevnar) [...] Description 04/01/2023 4:00 PM EST Imaging Radiology [facility] 1st [facility] [address] [facility] [place] [address] 04/10/2023 6:10 PM EST Anticoagulation Pharmacy, [facility] [address] [facility] [place] [address] [facility] [place] [address] [facility] [place] [address] 05/02/2023 1:30 PM EST Office Visit Cardiology, [facility] [address] [facility] [place] [address] Renetta Glynn PA-C [address] [place] [address] 05/24/2023 1:00 PM EST Imaging Vascular Lab, [facility] II 2nd [facility] [place] [address] [place] [address] 06/07/2023 2:10 PM EST Office Visit Vascular Surgery, [facility] [address] [place] [address] Killian Gan MD [address] [place] [address] Scheduled Procedures Name Priority Associated Diagnoses Date/Ti me COLONOSCOPY FLEXIBLE PROXIMA L DIAGNOSTIC Recall Encounter for screening colonoscopy Health Maintenance Due Date Last Done Comments Hepatitis B (1 of 3 - Risk 3-dose series) 2013 Depression Screening 12/28/2021 12/28/2020 COVID-19 Vaccine ( season) 2023 04/22/2021, 08/25/2020, 08/04/2020 DISCUSS TOBACCO CESSATION (REFER TO SMARTSET #6800) 02/23/2023 02/23/2022 *NEPHROLOGY REFERRAL DUE TO RESISTANT [...] monitoring documented in this encounter Care Teams Internet Database Specialist Relationship Specialty Start Date End Date Britney Ko CRNP [address] [place] [address] PCP - General Nurse Practitioner 09/22/21 documented as of this encounter
--- OUTSIDE RECORDS SUMMARY | 2023-05-03 07:30 | External Medical Summary | Summary of Care ---
Author Name Unknown Organization [facility] Address [address] [facility] [place] [address] Phone [phone] Care Team Providers Care Shipwright Apprentice Name Role Phone Britney Ko Primary Care Provider Reason for Visit * Reason Comments Dosage Adjustment Via Phone (anticoag Cl inic) Encounter Details Date Type Department Care Team (Latest Contact Info) Description 03/27/2023 5:10 PM [facility] Anticoagulation Pharmacy, [facility] 132 [facility] [place] [address] [facility] 132 [facility] [place] [address] Anticoagulation management encounter* Allergies Active Allergy Reactions [...] mgIndications:COPD, group B, by GOLD 2017 classification ([facility]) 2.5 mg NEBULIZER PRN 12/08/2022 12/08/2023 Acti ve Albuterol Sulfate (Proventil) (5 MG/ML) 0.5% *conc* inhalation solution 2.5 mgIndications:COPD, group B, by GOLD 2017 classification ([facility]) 2.5 mg NEBULIZER PRN 12/08/2022 [...] mRNA, LNP-s, No Pre serve, 2-Dose Series ([employer]) 04/22/2021,08/25/2020,08/04/2020 Pneumococcal Conjugate Vacc, 13 Valent (Prevnar) [...] Description 04/01/2023 4:00 PM EST Imaging Radiology [facility] [address] [facility] 132 [facility] [place] [address] 04/10/2023 6:10 PM EST Anticoagulation Pharmacy, [facility] [address] [facility] [place] [address] [facility] [place] [address] [facility] [place] [address] 05/02/2023 1:30 PM EST Office Visit Cardiology, [facility] 132 [facility] [place] [address] Renetta Glynn PA-C [address] [place] [address] 05/24/2023 1:00 PM EST Imaging Vascular Lab, [facility] 2nd [facility] [place] [address] [place] [address] 06/07/2023 2:10 PM EST Office Visit Vascular Surgery, [facility] [address] [place] [address] Killian Gan MD [address] [place] [address] Scheduled Procedures Name Priority Associated Diagnoses Date/Ti me COLONOSCOPY FLEXIBLE PROXIMA L DIAGNOSTIC Recall Encounter for screening colonoscopy Health Maintenance Due Date Last Done Comments Hepatitis B (1 of 3 - Risk 3-dose series) 2013 Depression Screening 12/28/2021 12/28/2020 COVID-19 Vaccine ( season) 2023 04/22/2021, 08/25/2020, 08/04/2020 DISCUSS TOBACCO CESSATION (REFER TO SMARTSET #4922) 02/23/2023 02/23/2022 *NEPHROLOGY REFERRAL DUE TO RESISTANT [...] monitoring documented in this encounter Care Teams Shipwright Apprentice Relationship Specialty Start Date End Date Britney Ko CRNP [address] [place] [address] PCP - General Nurse Practitioner 09/22/21 documented as of this encounter
--- OUTSIDE RECORDS SUMMARY | 2023-05-03 07:31 | External Medical Summary | Summary of Care ---
Author Name Unknown Organization [facility] Address [address] [facility] [place] [address] Phone [phone] Care Team Providers Care Political Geographer Name Role Phone Britney Ko Collette MAHONEY Primary Care Provider Reason for Visit * Reason Onset Date Comments Test Results 02/16/2023 Encounter Details Date Type Department Care Team Description 02/16/2023 Telephone Cardiology, [facility] [address] [place] [id number] Renetta Glynn PA-C [address] [employer] [place] [address] Test Results Allergies Active Allergy Reactions Severity Noted Date Comments Sulfa Antibiotics 11/03/2016 Trimethoprim 04/14/1997 rash documented as of this encounter (statuses as of 02/16/2023) Medications Medication Sig Dispensed Refills Start Date [...] of Breath. 18 g 5 10/29/2019 Active Acetaminophen 325 MG CAPS Take 500 mg by mouth 2 times a day as needed for Pain, Mild or Pain, Moderate (Not to exceed 1000 mg per day). 0 Active Magnesium Oxide 200 MG Oral TabletIndications:p t takes every other day Take by mouth 1 Tablet daily . 0 10/30/2020 Active Jublia 10 % External Solution 0 08/25/2021 Active Furosemide 20 MG Oral Tablet (Lasix) TAKE 1 TABLET BY MOUTH IN THE MORNING. 34 Tablet 5 02/23/2022 02/23/2023 Active Ammonium Lactate 12 % External Lotion [...] at bedtime. 30 Tablet 3 12/06/2022 Active Trelegy Ellipta 100-62.5-25 MCG/ACT Aerosol Powder Breath Activated (Fluticasone-Umecli dinium-Vilanterol) Inhale 1 Puff by mouth. 0 Active traMADol HCl 50 MG Oral Tablet (Ultram)Indications :Lumbar degenerative disc disease Take 1 Tablet by mouth every 6 hours as needed for severe Pain 30 Tablet 0 12/23/2022 Active Rosuvastatin Calcium 20 MG Oral Tablet (Crestor)Indication s:Dyslipidemia, goal LDL below 160,Dyslipidemia, goal LDL below 130 Take 1 Tablet by mouth in the morning. 90 Tablet 3 12/23/2022 Active Baclofen 10 MG Oral Tablet (Lioresal)Indicatio ns:Acute midline low back pain without sciatica Take 1 Tablet by mouth in the morning and 1 Tablet before bedtime. 20 Tablet 0 01/03/2023 Active methylPREDNISolone 4 MG Oral Tablet Therapy Pack (Medrol Dosepack)Indication s:Acute midline low back pain without sciatica follow package directions 21 Tablet 0 01/03/2023 Active Cyclobenzaprine HCl 5 MG Oral Tablet (Flexeril) take 1 tablet (5 MG) orally three times a day As Needed for muscle spasm 30 Tablet 0 01/13/2023 Active traMADol HCl 50 MG Oral Tablet (Ultram) take 1 tablet (50 mg) orally twice a day As Needed for pain 11 Tablet 0 01/13/2023 Active Hospital, Clinic, or Other Facility Administered Medication Ordered Dose Route Frequency Start Date End Date Status Albuterol Sulfate (Proventil) (2.5 MG/3ML) 0.083% inhalation solution 2.5 mgIndications:COPD, group B, by GOLD 2017 classification ([facility]) 2.5 mg NEBULIZER PRN 12/08/2022 12/08/2023 Acti ve Albuterol Sulfate (Proventil) (5 MG/ML) 0.5% *conc* inhalation solution 2.5 mgIndications:COPD, group B, by GOLD 2017 classification ([facility]) 2.5 mg NEBULIZER PRN 12/08/2022 12/08/2023 Acti ve documented as of this encounter (statuses as of 02/16/2023) Active Problems Problem Noted Date Protein-calorie malnutrition 12/06/2022 Black tarry stools 09/30/2022 Chronic anticoagulation 09/30/2022 Chronic diastolic heart failure 02/24/20 22 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 Tobacco abuse 07/14/1997 documented as of this encounter (statuses as of 02/16/2023) Resolved Problems Problem Noted Date Resolved Date [...] as of this encounter (statuses as of 02/16/2023) Immunizations Name Administration Dates Next Due COVID-19 mRNA, LNP-s, No Pre serve, 2-Dose Series (Pfizer) 04/22/2021,08/25/2020,08/04/2020 Pneumococcal Conjugate Vacc, 13 Valent (Prevnar) 08/06/2018 Pneumococcal Conjugate Vaccine, 7 Valent 012 Pneumococcal Polysaccharide PPV23 (Pneumovax) 01/23/2020,12/27/2011 Season Influenza, Quad, PF, Adjuvanted, 65+ Yrs, IM (FLUAD) 01/23/2020 Seasonal Influenza, PF, 6 mo ns & Above, IM , (Flulaval) 03/06/2021,02/20/2018 Seasonal Influenza, Quadriva lent, No Preserve, IM [...] encounter Miscellaneous Notes * Telephone Encounter - Renetta Glynn PA-C - 02/16/2023 4:12 PM EDT Noted. Await labs * Telephone Encounter - Ej Osborn LPN - 02/16/2023 2:35 PM EDT Called patient and informed of Renetta's message. Patient verbalized understanding. Patient hurt her back recently and is dealing with some pain but denies any recent concerns with be ill or having any recent fever or chills. Patient will obtain labs when she can and her is feeling up to going out and he currently is not feeling well. Lab orders. Scheduling please assist. ----- Message from Renetta Glynn PA-C sent at 02/16/2023 1:46 PM EDT ----- Echo results reviewed and discussed with Dr. Drake Normal LVEF at 55% Small mobile density adherent to the aortic valve. Difficult to tell cause/etiology. On coumadin, so thrombus unlikely. Need to rule out acute infection? See how patient is feeling? Any recent fever/chills, illness? Recommend labs - CBC, blood cultures x2 different sites; Add CMP and magnesium as well, as she had low sodium back in December that was to be rechecked and not done. Recommend sooner appt as well, pending labs results - may need to consider GUANAKO to look at aortic valve abnormality and mitral regurgitation documented in this encounter Plan of Treatment Upcoming Encounters Date Type Specialty Care Team Description 02/27/2023 Telemedicine Pulmonary Lenin Ruth MD [address] [place], [place] [id number] Marcello Vyased Pulm Gw [address] [place] [address] 03/15/2023 Office Visit Family Medicine Britney Ko CRNP [address] [place] [address] 03/22/2023 Anticoagulation Pharmacy [facility] [address] [place] [address] 03/23/2023 Imaging Radiology 04/05/2023 Office Visit Vascular Surgery Killian Gan MD [address] [place] [address] 04/19/2023 Office Visit Cardiology Renetta Glynn PA-C [address] [place] [address] 07/27/2023 Office Visit Rheumatology Tanner Alston MD [address] [facility], [place] [address] Scheduled Orders Name Type Priority Associated Diagnoses Orde r Schedule CBC Lab Routine Abnormal echocardiogram Expected: 02/17/2023 (Approximate), Expires: 02/17/2024 CULTURE, BLOOD Lab Routine Abnormal echocardiogram Expected: 02/17/2023 (Approximate), Expires: 02/17/2024 CULTURE, BLOOD Lab Routine Abnormal echocardiogram Expected: 02/17/2023 (Approximate), Expires: 02/17/2024 COMPREHENSIVE METABOLIC PANEL Lab Routine Hyponatremia Abnormal echocardiogram Expected: 02/17/2023 (Approximate), Expires: 02/17/2024 MAGNESIUM Lab Routine Abnormal echocardiogram Expected: 02/17/2023 (Approximate), Expires: 02/17/2024 Scheduled Procedures Name Priority Associated Diagnoses Date/Ti me COLONOSCOPY FLEXIBLE PROXIMA L DIAGNOSTIC Recall Encounter for screening colonoscopy Health Maintenance Due Date Last Done Comments COVID-19 Vaccine (4 - Pfizer risk series) 06/17/2021 04/22/2021, 08/25/2020, 08/04/2020 Depression Screening 12/28/2021 12/28/2020 *NEPHROLOGY REFERRAL DUE TO RESISTANT HTN 01/17/2023 Influenza Vaccine (FLU shot) (#1) 2023 03/06/2021, 01/23/2020, 02/20/2019, Additional history exists DISCUSS TOBACCO CESSATION (REFER TO SMARTSET #3915) 02/23/2023 02/23/2022 Mammogram 10/05/2023 10/04/2022, 10/21, 10/06/2020, Additional history exists COLONOSCOPY-ANNUAL AGES 18-100 12/02/2023 12/01/2022, 12/01/2022, 05/12/2017, Additional history exists GFR 12/21/2023 12/20/2022, 09/19, 08/19/2022, Additional history exists Albumin/Creatinine Ratio 01/02/2024 01/01/2021 O2 ASSESSMENT COMPLETED IN PAST YEAR FOR COPD 01/14/2024 01/13/2023 DXA Scan 12/31/2025 12/31/2018, 04/21, 05/08/2003 DTaP,Tdap,and Td Vaccines (3 - Td or Tdap) 01/11/2027 01/11/2017, 01/30/2007, 07/14/1997 Lipid Panel 12/21/2027 12/20/2022, 09/19, 01/01/2021, Additional history exists Pneumococcal Vaccine: 65+ Years Completed 01/23/2020, 08/06/2018, 12/27/2011 Zoster Vaccines Completed 01/23/2020, 05/23, 04/12/2013 Alpha-1 Antitrypsin Completed 02/28/2022 Fecal Occult Blood Test Discontinued 10/01/2022 Colonoscopy Discontinued 12/01/2022, 11/19, 05/12/2017, Additional history exists Colorectal Cancer Screening Discontinued Cologuard Discontinued GARDASIL-HPV IMMUNIZATION SERIES Aged Out [...] as of this encounter Visit Diagnoses Diagnosis Hyponatremia- Primary Hyposmolality and/or hyponatremia Abnormal echocardiogram Nonspecific (abnormal) findings on radiological and other examination of other intrathoracic organs documented in this encounter Care Teams Political Geographer Relationship Specialty Start Date End Date Britney Ko CRNP [address] [place] [address] PCP - General Nurse Practitioner 09/22/21 documented as of this encounter
--- OUTSIDE RECORDS SUMMARY | 2023-05-03 07:31 | External Medical Summary | Summary of Care ---
Author Name Unknown Organization [facility] Address [address] [facility] [place] [address] Phone [phone] Care Team Providers Care Stunner Animal Name Role Phone Britney Ko Collette MARU Primary Care Provider Reason for Visit * Reason Comments Medication Refill Encounter Details Date Type Department Care Team Description 02/26/2023 Refill Pulmonary Medicine, [address] [place] [address] Joni Bravo MD Allergies Active Allergy Reactions Severity Noted Date [...] 140/90,Hyponatremi a,Valvular heart disease,PAD (peripheral artery disease) ([facility]),Dyslipidemia , goal LDL below 70 TAKE [...] for pain 11 Tablet 0 01/13/2023 Active Furosemide 20 MG Oral Tablet (Lasix) TAKE 1 TABLET BY MOUTH IN THE MORNING. 34 Tablet 5 03/01/2023 4 Active Furosemide 20 MG Oral Tablet (Lasix) TAKE 1 TABLET BY MOUTH IN THE MORNING. 34 Tablet 5 02/23/2022 3 Discontinue d(Refill) Hospital, Clinic, or Other Facility Administered Medication Ordered Dose Route Frequency Start Date End Date Status Albuterol Sulfate (Proventil) (2.5 MG/3ML) 0.083% inhalation solution 2.5 mgIndications:COPD, group B, by GOLD 2017 classification ([facility]) 2.5 mg NEBULIZER PRN 12/08/2022 12/08/2023 Acti ve Albuterol Sulfate (Proventil) (5 MG/ML) 0.5% *conc* inhalation solution 2.5 mgIndications:COPD, group B, by GOLD 2017 classification ([facility]) 2.5 mg NEBULIZER PRN 12/08/2022 12/08/2023 [...] Yrs, IM (FLUAD) 01/23/2020 Seasonal Influenza, Quadriva lent, No Preserve, IM [...] encounter Miscellaneous Notes * Telephone Encounter - Lenin Barton MD - 03/01/2023 11:51 AM EDTSigned Prescriptions: Disp Refills Furosemide 20 MG Oral Tablet (Lasix) 34 Tab*5 Sig: TAKE 1 TABLET BY MOUTH IN THE MORNING. Authorizing Provider: LENIN BARTON * Telephone Encounter - Kelley Ramirez LPN - 02/27/2023 12:19 PM EDTPending Prescriptions: Disp Refills Furosemide 20 MG Oral Tablet (Lasix) 34 Tab*5 Sig: TAKE 1 TABLET BY MOUTH IN THE MORNING. documented in this encounter Plan of Treatment Upcoming Encounters Date Type Specialty Care Team Description 03/01/2023 Office Visit Family Medicine Sherron Villalpando MD [address] [place] [address] 03/22/2023 Anticoagulation Pharmacy [facility] [address] [place] [address] 03/23/2023 Imaging Radiology 04/05/2023 Office Visit Vascular Surgery Killian Gan MD [address] [place] [address] 05/02/2023 Office Visit Cardiology Renetta Glynn PA-C [address] [place] [address] 07/27/2023 Office Visit Rheumatology Tanner Alston MD [address] [employer] [place] [address] Scheduled Procedures Name Priority Associated Diagnoses Date/Ti me COLONOSCOPY FLEXIBLE PROXIMA L DIAGNOSTIC Recall Encounter for screening colonoscopy Health Maintenance Due Date Last Done Comments Depression Screening 12/28/2021 12/28/2020 COVID-19 Vaccine ( season) 2023 04/22/2021, 08/25/2020, 08/04/2020 Influenza Vaccine (FLU shot) (#1) 2023 03/06/2021, 01/23/2020, 02/20/2019, Additional history exists DISCUSS TOBACCO CESSATION (REFER TO SMARTSET #3295) 02/23/2023 02/23/2022 *NEPHROLOGY REFERRAL DUE TO RESISTANT [...] filedocumented as of this encounter Care Teams Stunner Animal Relationship Specialty Start Date End Date Britney Ko CRNP [address] [place] [address] PCP - General Nurse Practitioner 09/22/21 documented as of this encounter
--- OUTSIDE RECORDS SUMMARY | 2023-05-03 07:31 | External Medical Summary | Summary of Care ---
Author Name Unknown Organization [facility] Address [address] [place] [address] Phone [phone] Care Team Providers Care Metal Burnisher Name Role Phone Britney Ko Collette MAHONEY Primary Care Provider Reason for Visit * Reason Onset Date Comments NEW PATIENT COPD Lung Nodule Medication Administration 02/27/2023 Flu an d/or Pneumo Inj Encounter Details Date Type Department Care Team Description 02/27/2023 [facility] [address] [place] [address] Lenin Ruth MD [address] [place] [place], [place] [id number] Cart, Telemed Pulm Gw [address] [place] [address] Need for prophylactic vaccination and inoculation against influenza* Allergies Active Allergy Reactions Severity Noted Date Comments Sulfa Antibiotics 11/03/2016 Trimethoprim 04/14/1997 rash documented as of this encounter (statuses as of 02/27/2023) Medications Medication Sig Dispensed Refills Start Date [...] 12/23/2022 Active Baclofen 10 MG Oral Tablet (Lioresal)Indication s:Acute midline low back pain without sciatica Take 1 Tablet by mouth in the morning and 1 Tablet before bedtime. 20 Tablet 0 01/03/2023 Active methylPREDNISolone 4 MG Oral Tablet Therapy Pack (Medrol Dosepack)Indications :Acute midline low back pain without sciatica follow [...] as of this encounter (statuses as of 02/27/2023) Active Problems Problem Noted Date Protein-calorie malnutrition [...] as of this encounter (statuses as of 02/27/2023) Resolved Problems Problem Noted Date Resolved Date [...] as of this encounter (statuses as of 02/27/2023) Immunizations Name Administration Dates Next Due COVID-19 [...] Tobacco: Never Tobacco Cessation:Ready to Q uit: Not Asked; Counseling Given: Not Answered Comments:12/14/22 smokes about 1 pack a day [...] Sign Reading Time Taken Comments Blood Pressure 132/80 02/27/2023 11:25 AM EDT Pulse 82 02/27/2023 11:25 AM EDT Temperature 36.3 C (97.4 F) 02/27/2023 11:25 AM E DT Respiratory Rate 16 02/27/2023 11:25 AM EDT Oxygen Saturation 100% 02/27/2023 11:25 AM EDT Inhaled Oxygen Concentration - - Weight 57.2 kg (126 lb) 02/27/2023 11:25 AM EDT Height 159.5 cm (5' 2.8") 02/27/2023 11:25 AM ED T Body Mass Index 22.46 02/27/2023 11:25 AM EDT documented in this encounter Progress Notes * Lenin Ruth MD - 02/27/2023 11:27 AM EDT Patient location: CLINIC. I was not in a hospital or clinic location. After connecting through [employer], patient was verified with two unique identifiers. 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 My office door was closed. No one else was in the room with me. Patient acknowledged consent and understanding of privacy and security of the Telemedicine visit, and gave permission to have atelemedicine presenter stay in the room in order to assist with the history and to conduct the examas needed. I informed the patient that I have reviewed their record in [facility] and presented the opportunity for them to ask any questions regarding the visit today. The patient agreed to participate. This is a 67 year old female with COPD presenting for evaluation of this. She continues to smoke. She denies mucus production. She has no mucus production or unintentional weight loss. She has a minimal cough. There is no SOB at rest or hemoptysis. Current Outpatient Medications Medication Sig Dispense Refill Thiamine Mononitrate (VITAMIN B1) 100 MG TABS Take by mouth. Folic Acid 400 MCG Tablet Take 1 Tablet by mouth in the morning. Albuterol Sulfate (ALBUTEROL HFA) 108 (90 BASE) MCG/ACT inhaler Inhale 2 Puffs by mouth every 4 hours as needed for Shortness of Breath. 18 g 5 Acetaminophen 325 MG CAPS Take 500 mg by mouth 2 times a day as needed for Pain, Mild or Pain, Moderate (Not to exceed 1000 mg per day). Magnesium Oxide 200 MG Oral Tablet Take by mouth 1 Tablet daily . Jublia 10 % External Solution Ammonium Lactate 12 % External Lotion Apply to both feet once daily. Dispense 3 400g tubes. 400 g 0 Warfarin Sodium 10 MG Oral Tablet (Coumadin) take 1 tablet by mouth every evening 30 Tablet 0 Metoprolol Succinate ER 50 MG Oral Tablet Extended Release 24 Hour (toPROL XL) TAKE 1 TABLET EVERY MORNING 90 Tablet 3 Losartan Potassium 25 MG Oral Tablet (Cozaar) Take 1 Tablet by mouth in the morning. 34 Tablet 11 traZODone HCl 100 MG Oral Tablet (Desyrel) Take 1 Tablet by mouth at bedtime. 30 Tablet 3 Trelegy Ellipta 100-62.5-25 MCG/ACT Aerosol Powder Breath Activated (Zpfdtlmlkgx-Stlpiugspdct-Dazkhuzqwb) Inhale 1 Puff by mouth. traMADol HCl 50 MG Oral Tablet (Ultram) Take 1 Tablet by mouth every 6 hours as needed for severe Pain 30 Tablet 0 Rosuvastatin Calcium 20 MG Oral Tablet (Crestor) Take 1 Tablet by mouth in the morning. 90 Tablet 3 Baclofen 10 MG Oral Tablet (Lioresal) Take 1 Tablet by mouth in the morning and 1 Tablet before bedtime. 20 Tablet 0 methylPREDNISolone 4 MG Oral Tablet Therapy Pack (Medrol Dosepack) follow package directions 21 Tablet 0 Cyclobenzaprine HCl 5 MG Oral Tablet (Flexeril) take 1 tablet (5 MG) orally three times a day As Needed for muscle spasm 30 Tablet 0 traMADol HCl 50 MG Oral Tablet (Ultram) take 1 tablet (50 mg) orally twice a day As Needed for pain11 Tablet 0 Current Facility-Administered Medications Medication Dose Route Frequency Provider Last Rate Last Admin Albuterol Sulfate (Proventil) (2.5 MG/3ML) 0.083% inhalation solution 2.5 mg 2.5 mg Nebulizer FROY Whitney MD 2.5 mg at 12/21/22 1045 Albuterol Sulfate (Proventil) (5 MG/ML) 0.5% *conc* inhalation solution 2.5 mg 2.5 mg Nebulizer Priti Whitney MD Past Medical History: Diagnosis Date Benign neoplasm of colon 02/26/2007 hyperplastic repeat colonoscopy in 10 yrs BRCA1 gene mutation negative 03/30/2016 BRCA2 gene mutation negative 03/30/2016 Breast cancer (HCC) 03/04/2015 left breast with chemo and XRT Breast cancer, female (HCC) 04/21/2015 COPD (chronic obstructive pulmonary disease) (HCC) Dyslipidemia, goal LDL below 160 06/12/2013 HTN, goal below 140/90 12/27/2011 Malignant neoplasm of left female breast (HCC) 12/24/2015 Paroxysmal atrial fibrillation (HCC) 05/06/2015 Pulmonary arterial hypertension (HCC) Trigger finger 03/06/2001 In general, pleasant female in no distress BP 132/80 | Pulse 82 | Temp 36.3 C (97.4 F) (Tympanic) | Resp 16 | Ht 1.595 m (5' 2.8") | Wt 57.2 kg (126 lb) | LMP 09/20/1999 | SpO2 100% | BMI 22.46 kg/m | BSA 1.59 m Awake and alert No conversational dyspnea No audible wheezing Nl affect PFT's moderate obstructive pattern Impression- COPD Plan 1. Continue with Trelegy. 2. Smoking cessation is of the utmost importance. 3.Follow up in one year or sooner if needed. 4. Yearly CT scan of the chest for lung cancer screening. I have answered the patient's questions. Lenin Ruth MD I have answered the patient's questions. Lenin Ruth MD * Kelley Ramirez LPN - 02/27/2023 11:19 AM EDT PRE - ADMINISTRATION DOCUMENTATION Are you experiencing any cold symptoms or fever? No Have you had Guillain-Trinchera Syndrome (an illness that causes paralysis) within the last 6 weeks? No Have you had the flu shot in the past? YES Have you ever had a reaction to the flu shot? No Kelley Ramirez LPN, 02/27/2023 11:19 AM Immunization Administration Documentation Time Out Procedure Performed: Yes Patient Identified (Ask Name/Date of ): Yes Does the patient have a fever greater than 101 degrees today? No Patient allergic to latex? No VFC Stock No Does this patient qualify for immunization through the VFC program because he/she (check only one): No-this child does not qualify for [facility] program; refer patient to a [facility] Immunization(s) verified: Yes, Immunization Name: Flu, VIS Sheet(s) given: No Verified Side and Site: Yes Verified Shot(s) with Parent(s)/Patient: Yes documented in this encounter Nursing Notes * Kelley Ramirez LPN - 02/27/2023 11:23 AM EDT Chief Complaint Patient presents with NEW PATIENT COPD Lung Nodule Medication Administration Flu and/or Pneumo Inj [facility] Cat Question 02/27/2023 11:23 AM EDT - Filed by Kelley Ramirez LPN When do you become breathless? (2) On level ground, I walk slower than people of the same age because of breathlessness or have to stop for breath when walking at my own pace How frequently do you cough? (3) Do you have phlegm in your chest? (2) Is your chest tight? (0) - My chest does not feel tight at all How breathless do you become when walking up a hill or steps? (2) How limited are you doing activities at home? (5) - I am very limited doing activities at home How confident are you leaving home with your lung condition? (0) - I am confident leaving my home despite my condition How soundly do you sleep? (2) How much energy do you have? (4) Total MMRC Score (range: 0 - 4) 2 Total CAT Score (range: 0 - 40) 18 Interm History/Respiratory Symptoms Cough: occ-productive white-yellow Hemoptysis: no Sinus Symptoms: no Hospitalizations: no ED Trips: no Triggers: allergies Nocturnal: coughing CPAP/BiPAP/O2: no Flu Vaccine: 02/27/23 documented in this encounter Plan of Treatment Upcoming Encounters Date Type Specialty Care Team Description 03/15/2023 Office Visit Family Medicine Britney Ko CRNP [address] [facility] [place] [address] 03/22/2023 Anticoagulation Pharmacy [facility] Jasvir [address] [place] [address] 03/23/2023 Imaging Radiology 04/05/2023 Office Visit Vascular Surgery Killian Gan MD [address] [place] [address] 04/19/2023 Office Visit Cardiology Renetta Glynn, SAMI [address] [place] [address] 07/27/2023 Office Visit Rheumatology Tanner Alston MD [address] [facility], [place] [address] Scheduled Procedures Name Priority Associated Diagnoses Date/Ti me COLONOSCOPY FLEXIBLE PROXIMA L DIAGNOSTIC Recall Encounter for screening colonoscopy Health Maintenance Due Date Last Done Comments Depression Screening 12/28/2021 12/28/2020 COVID-19 Vaccine ( season) 2023 04/22/2021, 08/25/2020, 08/04/2020 Influenza Vaccine (FLU shot) (#1) 2023 03/06/2021, 01/23/2020, 02/20/2019, Additional history exists DISCUSS TOBACCO CESSATION (REFER TO SMARTSET #3291) 02/23/2023 02/23/2022 Mammogram 10/05/2023 10/04/2022, 10/21, 10/06/2020, [...] as of this encounter Visit Diagnoses Diagnosis Need for prophylactic vaccination and inoculation against influenza- Primary documented in this encounter Care Teams Metal Burnisher Relationship Specialty Start Date End Date Britney Ko CRNP [address] [place] [address] PCP - General Nurse Practitioner 09/22/21 documented as of this encounter
--- OUTSIDE RECORDS SUMMARY | 2023-05-03 07:31 | External Medical Summary ---
Author Name Unknown Address Unknown Organization [id number] [address] [place] [id number] Laboratory Report Ordering Provider Test Date Status KATHRIN NGUYEN 02/13/2023 10:21:50 Final Therapeutic ranges for non-o perative patients:
Prophylaxsis/treatment of DVT: (Range:2.0-3.0)
Treatment of pulmonary embolism:(Range:2.0-3.0)
Prevention of systemic embolism from:
-tissue heart valves
-acute myocardial infarction
-valvular heart disease
-atrial fibrillation
(Range: 2.0-3.0)
Mechanical prosthetic valves: (Range: 2.5-3.5) Observation Date Value Abnormality Reference (Units ) Status INR in Capillary blood by Coagulation assay 02/13/2023 10:21:50 3.7 (INR) Final Performing Location [facility] [address] [place] [id number]
--- OUTSIDE RECORDS SUMMARY | 2023-05-03 07:31 | External Medical Summary | Summary of Care ---
Author Name Unknown Organization [facility] Address [address] [facility] [place] [address] Phone [phone] Care Team Providers Care Scrap Bunch Maker Name Role Phone Britney Ko Collette MAHONEY Primary Care Provider Reason for Visit * Reason Onset Date Comments Test Results 02/16/2023 Encounter Details Date Type Department Care Team Description 02/16/2023 Telephone Cardiology, [facility] [address] [place] [id number] Renetta Glynn PA-C [address] [place] [address] Test Results Allergies Active Allergy Reactions Severity Noted Date Comments Sulfa Antibiotics 11/03/2016 Trimethoprim 04/14/1997 rash documented as of this encounter (statuses as of 02/17/2023) Medications Medication Sig Dispensed Refills Start Date [...] as of this encounter (statuses as of 02/17/2023) Active Problems Problem Noted Date Protein-calorie malnutrition [...] as of this encounter (statuses as of 02/17/2023) Resolved Problems Problem Noted Date Resolved Date [...] as of this encounter (statuses as of 02/17/2023) Immunizations Name Administration Dates Next Due COVID-19 [...] encounter Miscellaneous Notes * Telephone Encounter - ELIANA Valentine - 02/17/2023 7:45 AM EDT Pt added to wait list for sooner appointment. * Telephone Encounter - Renetta Glynn PA-C [...] Telemedicine Pulmonary Lenin Ruth MD [address] [place] [address] Cart, Telemed Pulm Gw [address] [facility] [place], [place] [address] 03/15/2023 Office Visit Family Medicine Britney Ko CRNP [address] [place], [place] [address] 03/22/2023 Anticoagulation Pharmacy [facility] Jasvir [address] [place], [place] [address] 03/23/2023 Imaging Radiology 04/05/2023 Office Visit Vascular Surgery Killian Gan MD [address] [place] [address] 04/19/2023 Office Visit Cardiology Renetta Glynn PA-C [address] [place] [address] 07/27/2023 Office Visit Rheumatology Tanner Alston MD [facility] [place] [address] Scheduled Orders Name Type Priority Associated Diagnoses [...] organs documented in this encounter Care Teams Scrap Bunch Maker Relationship Specialty Start Date End Date Britney Ko CRNP [address] [place] [address] PCP - General Nurse Practitioner 09/22/21 documented as of this encounter
--- OUTSIDE RECORDS SUMMARY | 2023-05-03 07:31 | External Medical Summary | Summary of Care ---
Author Name Unknown Organization [facility] Address [address] [facility] [place] [address] Phone [phone] Care Team Providers Care Campus Receptionist Name Role Phone Britney Ko Collette MAHONEY Primary Care Provider Reason for Visit * Reason Comments Dosage Adjustment In Person (Anticoag Cl inic) Encounter Details Date Type Department Care Team Description 02/13/2023 Anticoagulation Pharmacy, [facility] [address] [facility] [place] [address] [facility] [address] [facility] [place] [address] Anticoagulation management encounter*; long-term current use of anticoagulant therapy Allergies Active Allergy Reactions Severity Noted Date Comments Sulfa Antibiotics 11/03/2016 Trimethoprim 04/14/1997 rash documented as of this encounter (statuses as of 02/13/2023) Medications Medication Sig Dispensed Refills Start Date [...] mgIndications:COPD, group B, by GOLD 2017 classification ([facility]) 2.5 mg NEBULIZER PRN 12/08/2022 12/08/2023 Acti ve Albuterol Sulfate (Proventil) (5 MG/ML) 0.5% *conc* inhalation solution 2.5 mgIndications:COPD, group B, by GOLD 2017 classification ([facility]) 2.5 mg NEBULIZER PRN 12/08/2022 12/08/2023 Acti ve documented as of this encounter (statuses as of 02/13/2023) Active Problems Problem Noted Date Protein-calorie malnutrition [...] as of this encounter (statuses as of 02/13/2023) Resolved Problems Problem Noted Date Resolved Date [...] as of this encounter (statuses as of 02/13/2023) Immunizations Name Administration Dates Next Due COVID-19 [...] of this encounter Progress Notes * Gaby Andrea, [facility] - 02/13/2023 10:18 AM EDT Images from the original note were not included. Medication Therapy Disease Management - Anticoagulation Patient: Michelle Puente | : 1955 Subjective Patient-Reported Symptoms: Patient Findings Negatives: Signs/symptoms of thrombosis, Signs/symptoms of bleeding, Change in health, Change in alcohol use, Change in activity, Upcoming invasive procedure, Missed doses, Extra doses, Change in medications, Change in diet/appetite, Bruising Objective Current Warfarin Dose As of 02/13/2023 Warfarin maintenance plan: 5 mg (10 mg x 0.5) every Tue; 10 mg (10 mg x 1) all other days INR Result As of 02/13/2023 INR goal: 2.0-3.0 INR used for dosin.7 (02/13/2023) Assessment & Plan Warfarin Plan As of 02/13/2023 Full warfarin instructions: 02/13: Hold; Otherwise 5 mg every Tue; 10 mg all other days Next INR check: Repeat PT/INR in 5 week(s) Weekly dose: not changed Additional Dosing Information: Gaby Andrea [facility] Clinical Pharmacist 02/13/2023, 10:24 AM documented in this encounter Plan of Treatment Upcoming Encounters Date Type Specialty Care Team Description 02/15/2023 Cardiac Studies Cardiac Studies 02/27/2023 Telemedicine Pulmonary Lenin Ruth MD [address] [place] [address] Cart, Telemed Pul Gw [address] [place] [address] 03/15/2023 Office Visit Family Medicine Britney Ko CRNP [address] [place] [address] 03/22/2023 Anticoagulation Pharmacy [facility] Jasvir [address] [place] [address] 03/23/2023 Imaging Radiology 04/05/2023 Office Visit Vascular Surgery Killian Gan MD [address] [facility] [place] [address] 04/19/2023 Office Visit Cardiology Renetta Glynn PA-Kelli [address] [place] [address] 07/27/2023 Office Visit Rheumatology Tanner Alston MD [address] [facility] [place] [address] Scheduled Procedures Name Priority Associated Diagnoses Date/Ti [...] Comments INR FINGERSTICK, POINT OF CARE STAT 02/13/2023 10:21 AM EDT 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 documented in this encounter Results * INR FINGERSTICK, POINT OF CARE (02/13/2023 10:21 AM EDT) Fingerstick INR 3.7 INR 10:24 AM EDT [facility] Blood 02/13/2023 10:2 1 AM EDT 02/13/2023 10:24 AM EDT Narrative [facility] [address] - 02/13/2023 10:24 AM EDT Therapeutic ranges for non-operative patients: Prophylaxsis/treatment of DVT: (Range:2.0-3.0) Treatment of pulmonary embolism:(Range:2.0-3.0) Prevention of systemic embolism from: -tissue heart valves -acute myocardial infarction -valvular heart disease -atrial fibrillation (Range: 2.0-3.0) Mechanical prosthetic valves: (Range: 2.5-3.5) Gaby Andrea [facility] LAB POINT OF C ARE TEST DOCKED DEVICE UNSOLICITED RESULTS [facility] [place] [address] [place] [address] documented in this encounter Visit Diagnoses Diagnosis Anticoagulation management encounter- Primary Encounter for therapeutic drug monitoring 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
--- OUTSIDE RECORDS SUMMARY | 2023-05-03 07:32 | External Medical Summary | Summary of Care ---
Author Name Unknown Organization [facility] Address [address] [facility] [place] [address] Phone [phone] Care Team Providers Care Transport Aircrewman Name Role Phone Britney Ko Primary Care Provider Reason for Visit * Reason Comments Re-Check Patient presents in office today for ongoing mid to lower back pain -- has been ongoing for 1 month now. Encounter Details Date Type Department Care Team Description 01/13/2023 Office Visit Family Practice [facility] [address] [place] [address] Spencer Raymond CRNP [address] [place] [address] 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)*; Lumbar degenerative disc disease; Chronic atrial fibrillation (HCC); COPD, group B, by GOLD 2017 classification (HCC); HTN, goal below 140/90; Tobacco abuse Allergies Active Allergy Reactions Severity Noted Date Comments Sulfa Antibiotics 11/03/2016 Trimethoprim 04/14/1997 rash documented as of this encounter (statuses as of 01/13/2023) Medications Medication Sig Dispensed Refills Start Date [...] heart disease,PAD (peripheral artery disease) ([facility]),Dyslipidemia, goal LDL below 70 TAKE 1 [...] package directions 21 Tablet 0 01/03/2023 Active Hospital, Clinic, or Other Facility Administered [...] as of this encounter (statuses as of 01/13/2023) Active Problems Problem Noted Date Protein-calorie malnutrition [...] as of this encounter (statuses as of 01/13/2023) Resolved Problems Problem Noted Date Resolved Date [...] Lipid Taxonomy. Benign neoplasm of colon 02/26/2007 05/15/2 019 Overview: hyperplastic repeat colonoscopy in 10 yrs Trigger finger 03/06/2001 03/14/2017 documented as of this encounter (statuses as of 01/13/2023) Immunizations Name Administration Dates Next Due COVID-19 [...] Sign Reading Time Taken Comments Blood Pressure 146/78 01/13/2023 7:22 AM EDT Pulse 81 01/13/2023 7:22 AM EDT Temperature 36.5 C (97.7 F) 01/13/2023 7:50 AM ED T Respiratory Rate 20 01/13/2023 7:22 AM EDT Oxygen Saturation 98% 01/13/2023 7:22 AM EDT Inhaled Oxygen Concentration - - Weight - - Height 159.5 cm (5' 2.8") 01/13/2023 7:22 AM EDT Body Mass Index - - documented in this encounter Progress Notes * MARU Argueta - 01/13/2023 7:24 AM EDT Images from the original note were not included. Follow up Family Medicine Visit History of Present Illness Michelle Puente is a very pleasant 67 year old female with PMH listed below presenting with low back pain. About 1 month ago, she stood up in bed and noticed low back pain. Constant pain right lower back. She was evaluated in the office 3 weeks ago, x-ray showed degenerative changes no acute issue. She was unable to tolerate physical therapy. She was prescribed tramadol and baclofen which seemed to workfor her back pain and here to request refill. Any movement make the pain worse. Today, she found to be delirious. She could not return to exam room after going to the bathroom across from the exam room. She was wandering back hallway and was missing for 10 minutes. states that she wanders around in home, and she doesn't know what to do. She states that she is unable to sleep because of pain, she has been drinking 6 x 16 oz beer every day past 3-4 weeks due to pain. Patient said that she was not drinking prior to back pain, but dx of alcohol abuse documented 4 years ago per chart. Social History Socioeconomic History Marital status: Spouse name: Not on file Number of children: Not on file Years of education: Not on file Highest education level: Not on file Occupational History Not on file Tobacco Use Smoking status: Every Day Packs/day: 1.00 Years: 44.00 Pack years: 44.00 Types: Cigarettes Smokeless tobacco: Never Tobacco comments: 12/14/22 smokes about 1 pack a day - refused pamphlet Vaping Use Vaping Use: Never used Substance and Sexual Activity Alcohol use: Yes Alcohol/week: 14.0 standard drinks Types: 14 12 oz of beer per week Comment: Last alcohol intake 08/09/22 Drug use: No Sexual activity: Not on file Other Topics Concern Not on file Social History Narrative Not on file Social Determinants of Health Financial Resource Strain: Not on file Food Insecurity: Not on file Transportation Needs: Not on file Physical Activity: Not on file Stress: Not on file Social Connections: Not on file Intimate Partner Violence: Not on file Housing Stability: Not on file PMH: Past Medical History: Diagnosis Date Benign neoplasm [...] Pulmonary arterial hypertension (HCC) Trigger finger 03/06/2001 Past Surgical History: Procedure Laterality Date ADJUNCT TISSUE TRANS,<10SQCM TRUNK Left 04/01/2015 ADJACENT TISSUE TRANSFER TRUNK LESS THAN 10SQ CM performed by Karine Gamez MD at OR [facility] BREAST BIOPSY Left 03/04/2015 Malignant neoplasm of left female breast (HCC)- US guided core biopsy of 2-3:00 of left breast revealed invasive carcinoma, NST, ER/ND-, Her-2 -, US guided core biopsy left axilla lymph node negativefor metastatic carcinoma BX LYMPH NODE DEEP AXIL Left 04/01/2015 BIOPSY LYMPH NODE DEEP AXILLARY OPEN performed by Karine Gamez MD at OR [facility] DELIVERY one delivery CHEMOTHERAPY Left 05/09/15-10/06/15 COLONOSCOPY W/ BIOPSY (RECTUM) 02/26/2007 hyperplastic repeat in 10 yrs COLONOSCOPY, DIAGNOSTIC (RECTUM) 05/12/2017 hyperplastic polyps, diverticulosis, repeat 10 yrs COLONOSCOPY, DIAGNOSTIC (RECTUM) 05/12/2017 COLONOSCOPY FLEXIBLE PROXIMAL DIAGNOSTIC performed by Al Rock MD at ENDOSCOPY [facility] COLONOSCOPY, DIAGNOSTIC (RECTUM) N/A 12/01/2022 severe diverticulosis/multiple polyps/biopsies show adenomatous polyps/recall 1 year/Colonoscopy/MN EXC BREAST LESION RADMARK Right 11/04/2020 EXCISION OF BREAST LESION RADIOLOGICAL MARKER performed by Karine Gamez MD at OR [facility] IDENTIFY SENTINEL NODE, RADIOACTIVE TRACER Left 04/01/2015 INJECTION PROCEDURE FOR IDENTIFICATION SENTINEL NODE performed by Karine Gamez MD at OR [facility] INSERTION OF LENS PROSTHESIS Left 03/21/2018 INSERTION OF LENS PROSTHESIS Right 04/04/2018 LIGATE/CUT OVIDUCT(S) Tubal Ligation MAMMOGRAM BREAST NEEDLE BIOPSY CORE RIGHT Right 08/13/2020 site one benign MAMMOGRAM BREAST NEEDLE BIOPSY CORE RIGHT Right 08/13/2020 site 2 complex sclerosing lesion. MASTECTOMY, PARTIAL Left 04/01/2015 04/01/2015MASTECTOMY PARTIAL performed by Karine Gamez MD at OR [facility] OTHER 05/14/2015 placement of a-port tunneled central venous access catheter with port [facility] Dr. Cohen 05/14/2015 RADIATION THERAPY Left 11/10/15-12/28/15 TREAT TROCHANTERIC FRACTURE W/IMPLANT Right 11/24/2018 rt trochanteric nail Outpatient Medications Marked as Taking for the 01/13/23 encounter (Office Visit) with MARU Argueta Medication Sig Baclofen 10 MG Oral Tablet (Lioresal) Take 1 Tablet by mouth in the morning and 1 Tablet before bedtime. methylPREDNISolone 4 MG Oral Tablet Therapy Pack (Medrol Dosepack) follow package directions Rosuvastatin Calcium 20 MG Oral Tablet (Crestor) Take 1 Tablet by mouth in the morning. traMADol HCl 50 MG Oral Tablet (Ultram) Take 1 Tablet by mouth every 6 hours as needed for severe Pain Trelegy Ellipta 100-62.5-25 MCG/ACT Aerosol Powder Breath Activated (Irewtjruvww-Nuldhpcmekho-Svbikzfzjz) Inhale 1 Puff by mouth. Losartan Potassium 25 MG Oral Tablet (Cozaar) Take 1 Tablet by mouth in the morning. traZODone HCl 100 MG Oral Tablet (Desyrel) Take 1 Tablet by mouth at bedtime. Metoprolol Succinate ER 50 MG Oral Tablet Extended Release 24 Hour (toPROL XL) TAKE 1 TABLET EVERY MORNING Warfarin Sodium 10 MG Oral Tablet (Coumadin) take 1 tablet by mouth every evening Ammonium Lactate 12 % External Lotion Apply to both feet once daily. Dispense 3 400g tubes. Furosemide 20 MG Oral Tablet (Lasix) TAKE 1 TABLET BY MOUTH IN THE MORNING. Jublia 10 % External Solution Magnesium Oxide 200 MG Oral Tablet Take by mouth 1 Tablet daily . Acetaminophen 325 MG CAPS Take 500 mg by mouth 2 times a day as needed for Pain, Mild or Pain, Moderate (Not to exceed 1000 mg per day). Albuterol Sulfate (ALBUTEROL HFA) 108 (90 BASE) MCG/ACT inhaler Inhale 2 Puffs by mouth every 4 hours as needed for Shortness of Breath. Folic Acid 400 MCG Tablet Take 1 Tablet by mouth in the morning. Thiamine Mononitrate (VITAMIN B1) 100 MG TABS Take by mouth. Current Facility-Administered Medications for the 01/13/23 encounter (Office Visit) with MARU Argueta Medication Albuterol Sulfate (Proventil) (2.5 MG/3ML) 0.083% inhalation solution 2.5 mg Albuterol Sulfate (Proventil) (5 MG/ML) 0.5% *conc* inhalation solution 2.5 mg Review of patient's allergies indicates: Allergen Reactions Sulfa Antibiotics Trimethoprim rash Most Recent Immunizations Administered Date(s) Administered COVID-19 mRNA, LNP-s, No Preserve, 2-Dose Series (Easy Ice) 04/22/2021 Diptheria/Tetanus (Adult) 07/14/1997 Pneumococcal Conjugate Vacc, 13 Valent (Prevnar) 08/06/2018 Pneumococcal Conjugate Vaccine, 7 Valent 12/27/2011 Pneumococcal Polysaccharide PPV23 (Pneumovax) 01/23/2020 Season Influenza, Quad, PF, Adjuvanted, 65+ Yrs, IM (FLUAD) 01/23/2020 Seasonal Influenza, PF, 6 mons & Above, IM , (Flulaval) 03/06/2021 Seasonal Influenza, Quadrivalent, No Preserve, IM 03/30/2016 Seasonal Influenza, Split, IIV3, With Preserve, Inj 03/22/2013 Seasonal Influenza, Trivalent, Adjuvanted, 65+ yrs 02/20/2019 TDAP (age 10 and older)(Boostrix) 01/11/2017 TDAP (age 11 and older)(Adacel) 01/30/2007 Varicella Zoster Vaccine (Adult) 04/12/2013 Zoster Vaccine Recombinant (Shingrix) 01/23/2020 Review of Systems: Physical Exam BP 146/78 | Pulse 81 | Resp 20 | Ht 1.595 m (5' 2.8") | LMP 09/20/1999 | SpO2 98% | BMI 22.03 kg/m | BSA 1.58 m Physical Exam Constitutional: Appearance: Normal appearance. HENT: Head: Normocephalic. Cardiovascular: Rate and Rhythm: Normal rate and regular rhythm. Pulmonary: Effort: Pulmonary effort is normal. Breath sounds: Normal breath sounds. Abdominal: Tenderness: There is no abdominal tenderness. Musculoskeletal: General: Tenderness present. Cervical back: Neck supple. Lumbar back: Tenderness present. Positive right straight leg raise test and positive left straight leg raise test. Back: Comments: Denies sciatica. 4/5 strengths, normal normal sensation bilateral lower extremities. Patellar reflexes intact bilaterally. Skin: General: Skin is warm. Neurological: Mental Status: She is alert. She is confused. Psychiatric: Mood and Affect: Mood normal. Assessment and Plan 1. 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) Na 129 on 12/20/22, she has been drinking past few weeks + delirium Will send to ER for evaluation Declined ambulance, will take her to ER via private vehicle 2. Lumbar degenerative disc disease Onset 3-4 weeks Very tender with light touch 3. Chronic atrial fibrillation (HCC) On coumadin, rate control 4. COPD, group B, by GOLD 2017 classification (HCC) 5. HTN, goal below 140/90 6. Tobacco abuse Wrap-Up I have advised the patient to call our office with any worsening or new symptoms. I spent a total of Greater than 55 mins (exact time 55 mins) on the date of service in preparation,delivery, and documentation of the care provided to Michelle Puente excluding any time spent in the performance of separately billed services. Spencer Raymond, NEHEMIAH, CARE TRANSITION COORDINATOR [facility] [place] documented in this encounter Nursing Notes * MAYLIN Reyes - 01/13/2023 7:21 AM EDT The patient has been properly identified by confirmation of name and date of . Chief Complaint Patient presents with Re-Check Patient presents in office today for ongoing mid to lower back pain -- has been ongoing for 1 monthnow. documented in this encounter Plan of Treatment Upcoming Encounters Date Type Specialty Care Team Description 01/25/2023 Anticoagulation Pharmacy [facility] [address] [place] [address] 02/15/2023 Cardiac Studies Cardiac Studies 02/27/2023 Telemedicine Pulmonary Lenin Ruth MD [address] [place], [place] [id number] Cart, Telemed Pulm Gw [address] [place] [address] 03/15/2023 Office Visit Family Medicine Britney Ko CRNP [address] [place] [address] 03/23/2023 Imaging Radiology 04/05/2023 Office Visit Vascular Surgery Killian Gan MD [address] [place] [address] 04/19/2023 Office Visit Cardiology Renetta Glynn PA-C [address] [place] [address] 07/27/2023 Office Visit Rheumatology Tanner Alston MD [facility] [place], [place] [id number] Scheduled Procedures Name Priority Associated Diagnoses Date/Ti me COLONOSCOPY FLEXIBLE PROXIMA L DIAGNOSTIC Recall Encounter for screening colonoscopy Health Maintenance Due Date Last Done Comments COVID-19 Vaccine (4 - Pfizer risk series) 06/17/2021 04/22/2021, 08/25/2020, 08/04/2020 Depression Screening, Annual for Pts 12 and Over 12/28/2021 12/28/2020 Influenza Vaccine (FLU shot) (#1) 2023 03/06/2021, 01/23/2020, 02/20/2019, Additional history exists DISCUSS TOBACCO CESSATION (REFER TO SMARTSET #3294) 02/23/2023 02/23/2022 Mammogram 10/05/2023 10/04/2022, 10/21, 10/06/2020, Additional history exists COLONOSCOPY-ANNUAL AGES 18-100 12/02/2023 12/01/2022, 05/12/2017, 05/12/2017, Additional history exists GFR 12/21/2023 12/20/2022, [...] Blood Test Discontinued 10/01/2022 Colonoscopy Discontinued 12/01/2022, 04/22, 05/12/2017, Additional history exists Colorectal Cancer Screening [...] as of this encounter Visit Diagnoses Diagnosis 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)- Primary Other specified drug-induced mental disorder Lumbar degenerative disc disease Degeneration of lumbar or lumbosacral intervertebral disc Chronic atrial fibrillation (HCC) Atrial fibrillation COPD, group B, by GOLD 2017 classification (HCC) HTN, goal below 140/90 Unspecified essential hypertension Tobacco abuse Tobacco use disorder documented in this encounter Care Teams Transport Aircrewman Relationship Specialty Start Date End Date Britney Ko CRNP [address] [place] [address] PCP - General Nurse Practitioner 09/22/21 documented as of this encounter
--- OUTSIDE RECORDS SUMMARY | 2023-05-03 07:32 | External Medical Summary | Summary of Care ---
Author Name Unknown Organization [facility] Address [address] [facility] [place] [address] Phone [phone] Care Team Providers Care Teacher Of The Deaf Name Role Phone NayaHemalatha brittonsa Collette MAHONEY Primary Care Provider Reason for Visit * Reason Onset Date Comments Advice 01/03/2023 Encounter Details Date Type Department Care Team Description 01/03/[address] [facility] [address] [place] [address] Florentin Collins DO [address] [facility] [place] [address] Advice Allergies Active Allergy Reactions Severity Noted Date Comments Sulfa Antibiotics 11/03/2016 Trimethoprim 04/14/1997 rash documented as of this encounter (statuses as of 01/03/2023) Medications Medication Sig Dispensed Refills Start Date [...] 2017 classification ([facility]) 2.5 mg NEBULIZER PRN 12/08/2022 12/08/2023 Acti ve Albuterol Sulfate (Proventil) (5 MG/ML) 0.5% *conc* inhalation solution 2.5 mgIndications:COPD, group B, by GOLD 2017 classification ([facility]) 2.5 mg NEBULIZER PRN 12/08/2022 12/08/2023 Acti ve documented as of this encounter (statuses as of 01/03/2023) Active Problems Problem Noted Date Protein-calorie malnutrition 12/06/2022 Black tarry stools 09/30/2022 Chronic anticoagulation 09/30/2022 Chronic diastolic heart failure 02/24/20 Mild episode of recurrent major depressi ve [...] as of this encounter (statuses as of 01/03/2023) Resolved Problems Problem Noted Date Resolved Date [...] as of this encounter (statuses as of 01/03/2023) Immunizations Name Administration Dates Next Due COVID-19 mRNA, LNP-s, No Pre serve, 2-Dose Series (Pfizer) 04/22/2021,08/25/2020,08/04/2020 Diptheria/Tetanus (Adult) 07/14/19972007 Pneumococcal Conjugate Vacc, 13 Valent (Prevnar) 08/06/2018 Pneumococcal Conjugate Vaccine, 7 Valent 012 Pneumococcal Polysaccharide PPV23 (Pneumovax) 01/23/2020,12/27/2011 Seasonal Influenza, Quadriva lent, No Preserve, 6 Mons & Above, IM 03/06/2021,02/20/2018 Seasonal Influenza, Quadriva lent, No Preserve, Adjuvanted, 65+ Yrs, IM 01/23/2020 Seasonal Influenza, Quadriva lent, No Preserve, [...] encounter Miscellaneous Notes * Addendum Note - Florentin Collins DO - 01/03/2023 3:36 PM EDTAddended by: FLORENTIN COLLINS on: 01/03/2023 03:36 PM Modules accepted: Orders * Telephone Encounter - Florentin Collins DO - 01/03/2023 3:29 PM EDT Spoke with patient. X-ray of lumbar spine reviewed with patient. X-ray of lumbar spine shows old compression deformity T12 and moderate degenerative changes. Patient advised to take tramadol 50 mg 1 tab every 6 hours as needed for pain. Additional prescription for Medrol Dosepak as directed and baclofen 10 mg 1 tab twice daily as needed for muscle spasm sent to pharmacy. Patient advised continue conservative treatment with avoidance of strenuous activities, no heavy lifting, warm compresses four times daily affected area, and physical therapy. Consider MRI of lumbar spine if no improvement following 6 weeks of conservative treatment * Telephone Encounter - Anushka Barajas - 01/03/2023 2:55 PM EDT Appt scheduled with pt * Telephone Encounter - MARU Xiao - 01/03/2023 2:51 PM EDT Please schedule appt Ishan, NEHEMAIH, MARU [facility] * Telephone Encounter - Dionne Meek LPN - 01/03/2023 2:40 PM EDT Provider to address: Pam (PT Rizwan) states that he did patients eval Her pain is still very high and she had little to no tolerance to session Only pain relief is with sitting and it is very slight pain relief She can only stand and walk for a few step Only able to sleep for an hour or 2 at a time Not able to do any of her daily house activities Pam advised that patient be seen again for eval He states that patient is to call for an appt FYI to Dr. Collins and PCP Reason for Call: Advice Contact: Telephone Call Contact Type: Assessment Total Time including non face to face (minutes): 5 documented in this encounter Plan of Treatment Upcoming Encounters Date Type Specialty Care Team Description 01/05/2023 Anticoagulation Pharmacy [facility] J[facility] [address] [place] [address] 01/12/2023 Office Visit Family Medicine Spencer Raymond CRNP [address] [place] [address] 02/15/2023 Cardiac Studies Cardiac Studies 02/27/2023 Telemedicine Pulmonary Lenin Ruth MD [address] [place] [address] Cart, Telemed Pulm Gw [address] [facility] [address] 03/15/2023 Office Visit Family Medicine Britney Ko CRNP [address] [place] [address] 03/23/2023 Imaging Radiology 04/05/2023 Office Visit Vascular Surgery Killian Gan MD [address] [place] [address] 04/19/2023 Office Visit Cardiology Renetta Glynn PA-C [address] [place] [address] 07/27/2023 Office Visit Rheumatology [facility], [place] [phone] Scheduled Procedures Name Priority Associated Diagnoses Date/Ti [...] exists DISCUSS TOBACCO CESSATION (REFER TO SMARTSET #2633) 02/23/2023 02/23/2022 Mammogram 10/05/2023 10/04/2022, 10/21, 10/06/2020, Additional history exists COLONOSCOPY-ANNUAL AGES 18-100 12/02/2023 12/01/2022, 05/12/2017, 05/12/2017, Additional history exists GFR 12/21/2023 12/20/2022, 09/19, 08/19/2022, Additional history exists O2 ASSESSMENT COMPLETED IN PAST YEAR FOR COPD 12/24/2023 12/23/2022 Albumin/Creatinine Ratio 01/02/2024 01/01/2021 DXA Scan 12/31/2025 12/31/2018, 04/21, 05/08/2003 DTaP,Tdap,and [...] as of this encounter Visit Diagnoses Diagnosis Acute midline low back pain without sciatica- Primary documented in this encounter Care Teams Teacher Of The Deaf Relationship Specialty Start Date End Date Britney Ko CRNP [address] [place] [address] PCP - General Nurse Practitioner 09/22/21 documented as of this encounter
--- OUTSIDE RECORDS SUMMARY | 2023-05-03 07:32 | External Medical Summary | Summary of Care ---
Author Name Unknown Organization [facility] Address [address] [facility] [place] [address] Phone [phone] Care Team Providers Care Fire Control Mechanic Name Role Phone NayaHemalatha brittonsa Coleltte MAHONEY Primary Care Provider Reason for Visit * Reason Onset Date Comments Advice 01/03/2023 Encounter Details Date Type Department Care Team Description 01/03/2023 Telephone Family Practice [facility] [address] [place] [address] Florentin Collins DO [address] [facility] [place] [address] Advice Allergies Active Allergy Reactions Severity Noted [...] 24 Hour (toPROL XL)Indications:Perma nent atrial fibrillation ([facility]),History of alcohol abuse,Tobacco abuse,HTN, goal below 140/90,Hyponatremia, Valvular heart disease,PAD (peripheral artery disease) ([facility] [...] the morning. 90 Tablet 3 12/23/2022 Active Hospital, Clinic, or Other Facility Administered [...] mRNA, LNP-s, No Pre serve, 2-Dose Series ([employer]) 04/22/2021,08/25/2020,08/04/2020 Pneumococcal Conjugate Vacc, 13 Valent (Prevnar) [...] encounter Miscellaneous Notes * Telephone Encounter - Anushka Barajas - 01/03/2023 2:55 PM EDT Appt scheduled with pt * Telephone Encounter - MARU Xiao - 01/03/2023 2:51 PM EDT Please schedule appt Ishan, MSN, MARU [facility] * Telephone Encounter - Dionne Meek LPN [...] call for an appt FYI to Dr. Collnis and PCP Reason for Call: Advice Contact: Telephone Call Contact Type: Assessment Total Time including non face to face (minutes): 5 documented in this encounter Plan of Treatment Upcoming Encounters Date Type Specialty Care Team Description 01/05/2023 Anticoagulation Pharmacy [facility] Jasvir [address] [place] [address] 01/12/2023 Office Visit Family Medicine Spencer Raymond CRNP [address] [place] [address] 02/15/2023 Cardiac Studies Cardiac Studies 02/27/2023 Telemedicine Pulmonary Lenin Ruth MD [address] [place], [place] [phone] Cart, Telemed Pulm Gw [address] [place] [address] 03/15/2023 Office Visit Family Medicine Britney Ko CRNP [address] [place] [address] 03/23/2023 Imaging Radiology 04/05/2023 Office Visit Vascular Surgery Killian Gan MD [address] [place], [place] [phone] 04/19/2023 Office Visit Cardiology Renetta Glynn PA-C [address] [place] [address] 07/27/2023 [facility] [address] [facility] [address] Scheduled Procedures Name Priority Associated Diagnoses Date/Ti [...] exists DISCUSS TOBACCO CESSATION (REFER TO SMARTSET #3296) 02/23/2023 02/23/2022 Mammogram 10/05/2023 10/04/2022, 10/21, 10/06/2020, [...] filedocumented as of this encounter Care Teams Fire Control Mechanic Relationship Specialty Start Date End Date Britney Ko CRNP [address] [place] [address] PCP - General Nurse Practitioner 09/22/21 documented as of this encounter
--- OUTSIDE RECORDS SUMMARY | 2023-05-03 07:32 | External Medical Summary | Summary of Care ---
Author Name Unknown Organization [facility] Address [address] [facility] [place] [address] Phone [phone] Care Team Providers Care Probation And Parole Officer Name Role Phone Britney Ko Collette MAHONEY Primary Care Provider Reason for Visit * Reason Comments Dosage Adjustment In Person (Anticoag Cl inic) Encounter Details Date Type Department Care Team Description 01/11/2023 [facility] Pharm[facility] [address] [facility] [address] [facility] [address] [place] [address] Persistent atrial fibrillation (HCC)* Allergies Active Allergy Reactions Severity Noted Date Comments Sulfa Antibiotics 11/03/2016 Trimethoprim 04/14/1997 rash documented as of this encounter (statuses as of 01/11/2023) Medications Medication Sig Dispensed Refills Start Date [...] B, by GOLD 2017 classification ([facility]) 2.5 mg NEBULIZER PRN 12/08/2022 12/08/2023 Acti ve Albuterol Sulfate (Proventil) (5 MG/ML) 0.5% *conc* inhalation solution 2.5 mgIndications:COPD, group B, by GOLD 2017 classification ([facility]) 2.5 mg NEBULIZER PRN 12/08/2022 12/08/2023 Acti ve documented as of this encounter (statuses as of 01/11/2023) Active Problems Problem Noted Date Protein-calorie malnutrition [...] as of this encounter (statuses as of 01/11/2023) Resolved Problems Problem Noted Date Resolved Date [...] as of this encounter (statuses as of 01/11/2023) Immunizations Name Administration Dates Next Due COVID-19 [...] as of this encounter Progress Notes * Garett Munoz, [facility] - 01/11/2023 1:36 PM EDT Images from the original note [...] Bruising Objective Current Warfarin Dose As of 01/11/2023 Warfarin maintenance plan: 5 mg (10 mg x 0.5) every Tue; 10 mg (10 mg x 1) all other days INR Result As of 01/11/2023 INR goal: 2.0-3.0 INR used for dosin.0 (01/11/2023) Assessment & Plan Warfarin Plan As of 01/11/2023 Full warfarin instructions: 01/11: 20 mg; 01/12: 20 mg; Otherwise 5 mg every Tue; 10 mg all other days Next INR check: 01/25/2023 Repeat PT/INR in 2 week(s) Weekly dose: increased Additional Dosing Information: Garett Munoz RPh Clinical Pharmacist 01/11/2023, 1:37 PM documented in this encounter Plan of Treatment Upcoming Encounters Date Type Specialty Care Team Description 01/13/2023 Office Visit Family Medicine Spencer Raymond CRNP [address] [place] [address] 01/25/2023 Anticoagulation Pharmacy [facility] Jasvir [address] [place] [address] 02/15/2023 Cardiac Studies Cardiac Studies 02/27/2023 Telemedicine Pulmonary Lenin Ruth MD [address] [place] [address] [facility] [address] [place] [address] 03/15/2023 Office Visit Family Medicine Britney Ko CRNP [address] [place] [address] 03/23/2023 Imaging Radiology 04/05/2023 Office Visit Vascular Surgery Killian Gan MD [address] [place], [place] [id number] 04/19/2023 Office Visit Cardiology Renetta Glynn PA-C [address] [place] [address] 07/27/2023 Office Visit Rheumatology Tanner Alston MD [address] [place] [address] Scheduled Procedures Name Priority Associated Diagnoses Date/Ti [...] Diagnosis Comments INR FINGERSTICK, POINT OF CARE TANG 01/11/2023 1:36 PM EDT documented in this encounter Results * INR FINGERSTICK, POINT OF CARE (01/11/2023 1:36 PM EDT) Fingerstick INR 1.0 INR 1:39 PM EDT [facility] Blood 01/11/2023 1:36 PM EDT 01/11/2023 1:39 PM EDT Narrative [facility] - 01/11/2023 1:39 PM EDT Therapeutic ranges for non-operative patients: Prophylaxsis/treatment of DVT: (Range:2.0-3.0) Treatment of pulmonary embolism:(Range:2.0-3.0) Prevention of systemic embolism from: -tissue heart valves -acute myocardial infarction -valvular heart disease -atrial fibrillation (Range: 2.0-3.0) Mechanical prosthetic valves: (Range: 2.5-3.5) [facility] POINT OF CARE TEST DOCKED DEVICE UNSOLICITED RESULTS [facility] [address] [place] [address] documented in this encounter Visit Diagnoses Diagnosis Persistent atrial fibrillation (HCC)- Primary Atrial fibrillation documented in this encounter Care Teams Probation And Parole Officer Relationship Specialty Start Date End Date Britney Ko CRNP [address] [place] [address] PCP - General Nurse Practitioner 09/22/21 documented as of this encounter"
--- OUTSIDE RECORDS SUMMARY | 2023-05-03 07:32 | External Medical Summary | Summary of Care ---
Author Name Unknown Organization [facility] Address [address] [facility] [place] [address] Phone [phone] Care Team Providers Care Head Rose Grower Name Role Phone Britney Ko Primary Care Provider Reason for Referral * Evaluate & Treat - Unlimited Visits (Within 10 days (routine)) - Pending Review Specialty Diagnoses / Procedures Referred By Contac t Referred To Contact Rheumatology Diagnoses Age-related osteoporosis without current pathological fracture Florentin Collins DO [address] [place] [address] Referral ID Status Reason Start Date Expiration Date Visits Requested Visits Authorized [id number] Pending Review Specialty Services Required 12/23/[phone] Question Answer Referral Priority Within 10 days (routine) * Evaluate & Treat - Unlimited Visits (Within 10 days (routine)) - Pending Review Specialty Diagnoses / Procedures Referred By Contac t Referred To Contact Physical Therapy / Physical Medicine And Rehab Diagnoses Lumbar degenerative disc disease Florentin Collins DO [address] [place] [address] Referral ID Status Reason Start Date Expiration Date Visits Requested Visits Authorized [id number] Pending Review Specialty Services Required 12/23/[phone] Question Answer Referral Priority Within 10 days (routine) Reason for Visit * Reason Comments Acute Pt here for complain ts of back pain for the last 3-4 days. Pt denies any trauma to her back. Pt has been trying tylenol, ice and heat but nothing is working. Sitting here in the office pt rates pain 8 out of 10 for pain. Encounter Details Date Type Department Care Team Description 12/23/2022 Office Visit Family [facility] [address] [place] [address] Florentin Collins DO [address] [place] [address] Lumbar degenerative disc disease*; Age-related osteoporosis without current pathological fracture; HTN, goal below 140/90; Chronic atrial fibrillation (HCC) Allergies Active Allergy Reactions Severity Noted Date Comments Sulfa Antibiotics 11/03/2016 Trimethoprim 04/14/1997 rash documented as of this encounter (statuses as of 01/07/2023) Medications Medication Sig Dispensed Refills Start Date [...] 24 Hour (toPROL XL)Indications:Per manent atrial fibrillation ([facility]),History of alcohol abuse,Tobacco abuse,HTN, goal below 140/90,Hyponatremi a,Valvular heart disease,PAD (peripheral artery disease) ([facility]),Dyslipidemia , goal LDL below 70 TAKE 1 [...] 30 Tablet 0 12/23/2022 Active Rosuvastatin Calcium 10 MG Oral Tablet (Crestor)Indicatio ns:Dyslipidemia, goal LDL below 160,Dyslipidemia, goal LDL below 130 TAKE 1 TABLET DAILY 90 Tablet 3 12/22/2021 12/23/2022 Discontinue d(Refill) Vitamin B Complex Oral Tablet 1 Tablet. 0 11/21/2022 12/23/2022 Discontinue d(Medicatio n List Clean Up) Hospital, Clinic, or Other Facility Administered Medication Ordered Dose Route Frequency Start Date End Date Status Albuterol Sulfate (Proventil) (2.5 MG/3ML) 0.083% inhalation solution 2.5 mgIndications:COPD, group B, by GOLD 2017 classification ([facility]) 2.5 mg NEBULIZER PRN 12/08/2022 12/08/2023 Acti ve Albuterol Sulfate (Proventil) (5 MG/ML) 0.5% *conc* inhalation solution 2.5 mgIndications:COPD, group B, by GOLD 2017 classification ([facility]) 2.5 mg NEBULIZER PRN 12/08/2022 12/08/2023 Acti ve documented as of this encounter (statuses as of 01/07/2023) Active Problems Problem Noted Date Protein-calorie malnutrition [...] as of this encounter (statuses as of 01/07/2023) Resolved Problems Problem Noted Date Resolved Date [...] as of this encounter (statuses as of 01/07/2023) Immunizations Name Administration Dates Next Due COVID-19 mRNA, LNP-s, No Pre serve, 2-Dose Series ([email or web address]) 04/22/2021,08/25/2020,08/04/2020 Pneumococcal Conjugate Vacc, 13 Valent (Prevnar) [...] Sign Reading Time Taken Comments Blood Pressure 130/80 12/23/2022 11:25 AM EDT Pulse 86 12/23/2022 10:49 AM EDT Temperature 36.4 C (97.6 F) 12/23/2022 10:49 AM E DT Respiratory Rate 16 12/23/2022 10:49 AM EDT Oxygen Saturation 97% 12/23/2022 10:49 AM EDT Inhaled Oxygen Concentration - - Weight 56.1 kg (123 lb 9.6 oz) 12/23/2022 10:49 AM EDT Height 159.5 cm (5' 2.8") 12/23/2022 10:49 AM ED T Body Mass Index 22.03 12/23/2022 10:49 AM EDT documented in this encounter Progress Notes * Florentin Collins DO - 12/23/2022 11:15 AM EDT Images from the original note were not included. History of Present Illness Michelle Puente is a 67 year old female that presents for Acute (Pt here for complaints of back pain for the last 3-4 days. Pt denies any trauma to her back. Pt has been trying tylenol, ice and heat but nothing is working. Sitting here in the office pt rates pain 8 out of 10 for pain.) Patient is a 67-year-old female with a history of osteoporosis, hypertension and atrial fibrillation. Patient complains of low back pain times 3-4 days. Patient denies radiation of pain, muscle weakness or numbness. Patient denies bowel or bladder dysfunction. Patient denies trauma to affected area.Patient denies fatigue fever chills or sweats. Patient denies nasal congestion sore throat or earache. Patient denies cough or sputum. Patient denies chest pain shortness breath palpitations or edema. Patient denies abdominal pain nausea vomiting diarrhea constipation. Patient denies urinary frequency dysuria urgency or hematuria. Patient denies headache or dizziness Patient denies skin rash or le sions. Review systems otherwise negative Physical Exam Vitals: 12/23/22 1049 Temp: 36.4 C (97.6 F) Pulse: 86 Resp: 16 SpO2: 97% BP: 142/78 BMI: 22.04 General: alert, healthy, and no distress Head: Normocephalic, No masses, lesions, tenderness or abnormalities Eye Exam: PERRLA, extraocular movements intact, conjunctiva are pink and non- injected, sclera clear Ears: External ears normal, Canals clear, TM's Normal Nose: no mucosal erythema, no mucosal edema, no purulent discharge Oropharynx: no exudate, no erythema, lips, buccal mucosa, and tongue normal, and mucous membranes are moist Neck: supple, no adenopathy, no bruits, thyroid normal size, non-tender, without nodularity Lymph: no palpable lymphadenopathy Heart: Irregularly irregular no murmur, and no gallops Lungs: chest symmetric with normal AP diameter, no chest deformities noted, no chest wall tenderness, lungs clear to auscultation Pulses: carotid=2/4 w/o bruits Abdomen: abdomen soft, non-tender, normal bowel sounds, and no masses or organomegaly Back: back symmetric, no curvature, no costovertebral angle tenderness, lumbar paravertebral musclespasm and range of motion lumbar flexion L1-L5 Extremities: less than 2 second capillary refill, no joint deformities, effusion, or inflammation Neuro Exam: alert & oriented x 3 with fluent speech, no focal motor/sensory deficits, gait normal, reflexes normal and symmetric Skin: skin color, texture, turgor are normal, no rashes or significant lesions I have reviewed the following results: None Assessment and Plan Lumbar degenerative disc disease Avoid strenuous activities, no heavy lifting Warm compresses four times daily affected area - XR L SPINE AP AND LATERAL - PHYSICAL THERAPY REFERRAL OP - traMADol HCl 50 MG Oral Tablet (Ultram); Take 1 Tablet by mouth every 6 hours as needed for severe Pain Age-related osteoporosis without current pathological fracture - DEXA SCAN/BONE MINERAL AXIAL - HIGH RISK OSTEOPOROSIS CLINIC REFERRAL OP HTN, goal below 140/90 Continue present medication Losartan 25 mg 1 tab once daily Chronic atrial fibrillation (HCC) Continue present medication Metoprolol succinate ER 50 mg 1 tab once daily Warfarin 10 mg as directed Follow with anticoagulation clinic Wrap-Up Time: I spent a total of 20-29 minutes (exact time 20 mins) on the date of service in preparation, delivery, and documentation of the care provided to Michelle Puente excluding any time spent in the performance of separately billed services. documented in this encounter Plan of Treatment Upcoming Encounters Date Type Specialty Care Team Description 01/11/2023 Anticoagulation Pharmacy [facility] Jasvir [address] [place] [address] 01/13/2023 Office Visit Family Medicine Spencer Raymond CRNP [address] [place] [address] 02/15/2023 Cardiac Studies Cardiac Studies 02/27/2023 Telemedicine Pulmonary Lenin Ruth MD [address] [place] [address] Cart, Telemed Pulm Gw [address] [place] [address] 03/15/2023 Office Visit Family Medicine Britney Ko CRNP [address] [place] [address] 03/23/2023 Imaging Radiology 04/05/2023 Office Visit Vascular Surgery [facility] Gan [facility] [address] [facility] [address] 04/19/2023 Office Visit Cardiology Renetta Glynn PA-C [address] [place] [address] 07/27/2023 [facility] [address] [facility] [address] Scheduled Orders Name Type Priority Associated Diagnoses Orde r Schedule DEXA SCAN/BONE MINERAL AXIAL Medical Imaging Routine Age-related osteoporosis without current pathological fracture Ordered: 12/23/2022 Scheduled Procedures Name Priority Associated Diagnoses Date/Ti me COLONOSCOPY FLEXIBLE PROXIMA L DIAGNOSTIC Recall Encounter for screening colonoscopy Scheduled Referrals Name Type Priority Associated Diagnoses Orde r Schedule PHYSICAL THERAPY REFERRAL OP Referral Within 10 days (routine) Lumbar degenerative disc disease Ordered: 12/23/2022 HIGH RISK OSTEOPOROSIS CLINIC REFERRAL OP Referral Within 10 days (routine) Age-related osteoporosis without current pathological fracture Ordered: 12/23/2022 Health Maintenance Due Date Last Done Comments [...] Procedure Name Priority Date/Time Associated Diagnosis Comments XR L SPINE AP AND LATERAL Routine 12/23/2022 11:44 AM EDT Lumbar degenerative disc disease documented in this encounter Results * XR L SPINE AP AND LATERAL (12/23/2022 11:44 AM EDT) Anatomical Region Laterality Modality Vertebra, Lspine Computed Radiog arlene 12/23/2022 12:0 9 PM EDT Impressions 12/25/2022 3:57 PM EDT IMPRESSION: Degenerative changes. THIS DOCUMENT HAS BEEN ELECTRONICALLY SIGNED BY BALTA PORTILLO MD Narrative 12/25/2022 3:57 PM EDT PROCEDURE INFORMATION: Exam: XR Lumbosacral Spine Exam date and time: 12/23/2022 12:09 PM Age: 67 years old Clinical indication: Other intervertebral disc degeneration, lumbar region; Additional info: Lumbar disc disease with acute exacerbation TECHNIQUE: Imaging protocol: Radiologic exam of the lumbosacral spine. Views: 2 or 3 views. COMPARISON: NM (LSPINE, ) 12/31/2018 1:20 PM FINDINGS: Bones/joints: There is scoliosis convex to the left. Old compression deformity T12.The facet joints demonstrate moderate degenerative narrowing and sclerosis. Soft tissues: Unremarkable. Vasculature: The vasculature demonstrates diffuse severe atherosclerotic calcification. Procedure Note Balta Portillo MD - 12/25/2022 PROCEDURE INFORMATION: Exam: XR Lumbosacral Spine Exam date and time: 12/23/2022 12:09 PM Age: 67 years old Clinical indication: Other intervertebral disc degeneration, lumbarregion; Additional info: Lumbar disc disease with acute exacerbation TECHNIQUE: Imaging protocol: Radiologic exam of the lumbosacral spine. Views: 2 or 3 views. COMPARISON: NM (LSPINE, ) 12/31/2018 1:20 PM FINDINGS: Bones/joints: There is scoliosis convex to the left. Old compressiondeformity T12.The facet joints demonstrate moderate degenerative narrowing andsclerosis. Soft tissues: Unremarkable. Vasculature: The vasculature demonstrates diffuse severe atherosclerotic calcification. IMPRESSION IMPRESSION: Degenerative changes. THIS DOCUMENT HAS BEEN ELECTRONICALLY SIGNED BY BALTA PORTILLO MD [facility] DO RADIOLOGY (RAD GENER AL) documented in this encounter Visit Diagnoses Diagnosis Lumbar degenerative disc disease- Primary Degeneration of lumbar or lumbosacral intervertebral disc Age-related osteoporosis without current pathological fracture Senile osteoporosis HTN, goal below 140/90 Unspecified essential hypertension Chronic atrial fibrillation (HCC) Atrial fibrillation documented in this encounter Care Teams Head Rose Grower Relationship Specialty Start Date End Date Britney Ko CRNP [address] [place] [address] PCP - General Nurse Practitioner 09/22/21 documented as of this encounter
--- OUTSIDE RECORDS SUMMARY | 2023-05-03 07:32 | External Medical Summary | Summary of Care ---
Author Name Unknown Organization [facility] Address [address] [facility] [place] [address] Phone [phone] Care Team Providers Care Heel Gummer Name Role Phone StefaniHemalathasa Collette MAHONEY Primary Care Provider Reason for Visit * Reason Comments Medication Refill Encounter Details Date Type Department Care Team Description 01/06/2023 Refill Family Practice [facility] [address] [place] [address] Florentin Collins DO [address] [place] [address] Lumbar degenerative disc disease Allergies Active Allergy Reactions Severity Noted Date [...] encounter Miscellaneous Notes * Telephone Encounter - MARU Xiao - 01/07/2023 8:00 AM EDT Refused Prescriptions: Disp Refills traMADol HCl 50 MG Oral Tablet (Ultram) 30 Tab*0 Sig: Take 1 Tablet by mouth every 6 hours as needed for severe Pain Refused By: BRITNEY KO Reason for Refusal: Not indicated * Telephone Encounter - MARU Xiao - 01/07/2023 8:00 AM EDT This medication was for short term use only * Telephone Encounter - Jai Laurent [facility] - 01/06/2023 6:32 PM EDTPending Prescriptions: Disp Refills traMADol HCl 50 MG Oral Tablet (Ultram) 30 Tab*0 Sig: Take 1 Tablet by mouth every 6 hours as needed for severe Pain * Telephone Encounter - Jai Laurent [facility] - 01/06/2023 6:31 PM EDT I have reviewed the patients controlled substance dispensing history in the Prescription Drug Monitoring Program in compliance with the [facility] regulations before prescribing a controlled substance. PDMP checked on 01/06/2023. Pending Prescriptions: Disp Refills traMADol HCl 50 MG Oral Tablet (Ultram) 30 Tab*0 Sig: Take 1 Tablet by mouth every 6 hours as needed for severe Pain Last Visit: 12/23/2022 (in office), Visit date not found (telemedicine) Next Visit: 01/13/2023 Date medication was last filled: 12/23/22 Date medication is due for refill: 12/29/22 Pharmacy: [facility] Is this request for a controlled substance? Yes and Urine Drug Screen Not completed Toxicology results: No results found. However, due to the size of the patient record, not all encounters were searched.Please check Results Review for a complete set of results. Please approve if appropriate. Thank You, Jai Blackwell [facility] Clinical Pharmacist [facility] ([facility]) (formerly Telepharmacy) 01/06/2023, 6:31 PM documented in this encounter Plan of Treatment Upcoming Encounters Date Type Specialty Care Team Description 01/11/2023 Anticoagulation Pharmacy [facility] Jasvir [address] [place], [place] [address] 01/13/2023 Office Visit Family Medicine Spencer Raymond CRNP [address] [place], [place] [address] 02/15/2023 Cardiac Studies Cardiac Studies 02/27/2023 Telemedicine Pulmonary Lenin Ruth MD [address] [place] [address] Cart, Telemed Pulm Gw [address] [place] [address] 03/15/2023 Office Visit Family Medicine Britney Ko CRNP [address] [place], [place] [address] 03/23/2023 Imaging Radiology 04/05/2023 Office Visit Vascular Surgery Killian Gan MD [address] [place] [address] 04/19/2023 Office Visit Cardiology Renetta Glynn PA-C [address] [place], [place] [address] 07/27/2023 Office Visit Rheumatology Tanner Alston MD [facility], [place] [id number] Scheduled Procedures Name Priority Associated Diagnoses Date/Ti [...] of this encounter Visit Diagnoses Diagnosis Lumbar degenerative disc disease Degeneration of lumbar or lumbosacral intervertebral disc documented in this encounter Care Teams Heel Gummer Relationship Specialty Start Date End Date Britney Ko CRNP [address] [place] [address] PCP - General Nurse Practitioner 09/22/21 documented as of this encounter
--- OUTSIDE RECORDS SUMMARY | 2023-05-03 07:32 | External Medical Summary | Summary of Care ---
Author Name Unknown Organization [facility] Address [address] [facility] [place] [address] Phone [phone] Care Team Providers Care Tip Stitcher Name Role Phone StefaniHemalathasa Collette MAHONEY Primary Care Provider Reason for Visit * Reason Comments Medication Refill Encounter Details Date Type Department Care Team Description 01/06/2023 Refill Family Practice [facility] [address] [place] [address] Florentin Collins DO [address] [place] [address] Lumbar degenerative disc disease Allergies Active Allergy Reactions Severity Noted Date Comments Sulfa Antibiotics 11/03/2016 Trimethoprim 04/14/1997 rash documented as of this encounter (statuses as of 01/09/2023) Medications Medication Sig Dispensed Refills Start Date [...] mgIndications:COPD, group B, by GOLD 2017 classification ([facility]) 2.5 mg NEBULIZER PRN 12/08/2022 12/08/2023 Acti ve Albuterol Sulfate (Proventil) (5 MG/ML) 0.5% *conc* inhalation solution 2.5 mgIndications:COPD, group B, by GOLD 2017 classification ([facility]) 2.5 mg NEBULIZER PRN 12/08/2022 12/08/2023 Acti ve documented as of this encounter (statuses as of 01/09/2023) Active Problems Problem Noted Date Protein-calorie malnutrition [...] as of this encounter (statuses as of 01/09/2023) Resolved Problems Problem Noted Date Resolved Date [...] as of this encounter (statuses as of 01/09/2023) Immunizations Name Administration Dates Next Due COVID-19 [...] Telephone Encounter - Emani James LPN - 01/09/2023 7:33 AM EDT Sent my g to pt * Telephone Encounter - MARU Xiao [...] only * Telephone Encounter - Jai Laurent [facility] - 01/06/2023 6:32 PM EDTPending Prescriptions: Disp Refills traMADol HCl 50 MG Oral Tablet (Ultram) 30 Tab*0 Sig: Take 1 Tablet by mouth every 6 hours as needed for severe Pain * Telephone Encounter - Jai Laurent RP - 01/06/2023 6:31 PM EDT I have reviewed the patients controlled substance dispensing history in the Prescription Drug Monitoring Program in compliance with the [facility] regulations before prescribing a controlled substance. PDMP [...] medication is due for refill: 12/29/22 [facility] Is this request for a controlled substance? Yes and Urine Drug Screen Not completed Toxicology results: No results found. However, due to the size of the patient record, not all encounters were searched.Please check Results Review for a complete set of results. Please approve if appropriate. Thank You, Jai Blackwell [facility] Clinical Pharmacist Centralized Clinical Pharmacy Services (CCPS) (formerly Telepharmacy) 01/06/2023, 6:31 PM documented in this encounter Plan of Treatment Upcoming Encounters Date Type Specialty Care Team Description 01/11/2023 Anticoagulation Pharmacy [facility] Jasvir [address] [place] [address] 01/13/2023 Office Visit Family Medicine Spencer Raymond CRNP [address] [place] [address] 02/15/2023 Cardiac Studies Cardiac Studies 02/27/2023 Telemedicine Pulmonary Lenin Ruth MD [address] [place] [address] Cart, Telemed Pulm [address] [place] [address] 03/15/2023 Office Visit Family Medicine Britney Ko CRNP [address] [place] [address] 03/23/2023 Imaging Radiology 04/05/2023 Office Visit Vascular Surgery Killian Gan MD [address] [place], [place] [id number] 04/19/2023 Office Visit Cardiology Renetta Glynn PA-C [address] [place] [address] 07/27/2023 Office Visit Rheumatology Tanner Alston MD [address] [place] [address] Scheduled Procedures Name Priority Associated Diagnoses Date/Ti [...] disc documented in this encounter Care Teams Tip Stitcher Relationship Specialty Start Date End Date Britney Ko CRNP [address] [place] [address] PCP - General Nurse Practitioner 09/22/21 documented as of this encounter
--- OUTSIDE RECORDS SUMMARY | 2023-05-03 07:32 | External Medical Summary | Summary of Care ---
Author Name Unknown Organization [facility] Address [address] [facility] [place] [address] Phone [phone] Care Team Providers Care Diamond Cleaner Name Role Phone Britney Ko Collette MAHONEY Primary Care Provider Reason for Visit * Reason Comments Appointment Encounter Details Date Type Department Care Team Description 01/31/2023 Anticoagulation Pharmacy, [facility] [address] [facility] [address] [place] [address] Persistent atrial fibrillation (HCC)* Allergies Active Allergy Reactions Severity Noted Date Comments Sulfa Antibiotics 11/03/2016 Trimethoprim 04/14/1997 rash documented as of this encounter (statuses as of 01/31/2023) Medications Medication Sig Dispensed Refills Start Date [...] mgIndications:COPD, group B, by GOLD 2017 classification ([facility]) 2.5 mg NEBULIZER PRN 12/08/2022 12/08/2023 Acti ve Albuterol Sulfate (Proventil) (5 MG/ML) 0.5% *conc* inhalation solution 2.5 mgIndications:COPD, group B, by GOLD 2017 classification ([facility]) 2.5 mg NEBULIZER PRN 12/08/2022 12/08/2023 Acti ve documented as of this encounter (statuses as of 01/31/2023) Active Problems Problem Noted Date Protein-calorie malnutrition [...] as of this encounter (statuses as of 01/31/2023) Resolved Problems Problem Noted Date Resolved Date [...] as of this encounter (statuses as of 01/31/2023) Immunizations Name Administration Dates Next Due COVID-19 [...] of this encounter Progress Notes * Ariadne Phelps, user experience researcher - 01/31/2023 9:40 AM EDT Patient Phone Numbers Spoke with patient to schedule [facility] appointment for coag management. Appointment scheduled as notedbelow. 02/13/2023 Thank you, Ariadne Phelps Through Operator Centralized Clinical Pharmacy Services (CCPS) (Formerly Telepharmacy) 01/31/2023, 9:40 AM documented in this encounter Plan of Treatment Upcoming Encounters Date Type Specialty Care Team Description 02/13/2023 Anticoagulation Pharmacy [facility] Jasvir [address] [place] [address] 02/15/2023 Cardiac Studies Cardiac Studies 02/27/2023 Telemedicine Pulmonary Lenin Ruth MD [address] [place] [address] Cart, Telemed Pulm Gw [address] [facility] [place] [address] 03/15/2023 Office Visit Family Medicine Britney Ko CRNP [address] [place] [address] 03/23/2023 Imaging Radiology 04/05/2023 Office Visit Vascular Surgery Killian Gan MD [address] [place] [address] 04/19/2023 Office Visit Cardiology Renetta Glynn PA-C [address] [place] [address] 07/27/2023 Office Visit Rheumatology Tanner Alston MD [address] [place] [address] Scheduled Procedures Name Priority Associated Diagnoses Date/Ti [...] as of this encounter Visit Diagnoses Diagnosis Persistent atrial fibrillation (HCC)- Primary Atrial fibrillation documented in this encounter Care Teams Diamond Cleaner Relationship Specialty Start Date End Date rBitney Ko CRNP [address] [place] [address] PCP - General Nurse Practitioner 09/22/21 documented as of this encounter
--- OUTSIDE RECORDS SUMMARY | 2023-05-03 07:32 | External Medical Summary ---
Author Name Unknown Address Unknown Organization [facility] [facility] [address] [place] [id number] Laboratory Report Ordering Provider Test Date Status SHANIKA WILLIS 01/11/2023 13:36:47 Final Therapeutic ranges for non-o perative patients:
Prophylaxsis/treatment of DVT: (Range:2.0-3.0)
Treatment of pulmonary embolism:(Range:2.0-3.0)
Prevention of systemic embolism from:
-tissue heart valves
-acute myocardial infarction
-valvular heart disease
-atrial fibrillation
(Range: 2.0-3.0)
Mechanical prosthetic valves: (Range: 2.5-3.5) Observation Date Value Abnormality Reference (Units ) Status INR in Capillary blood by Coagulation assay 01/11/2023 13:36:47 1.0 (INR) Final Performing Location [facility] [place] [id number]
--- OUTSIDE RECORDS SUMMARY | 2023-05-03 07:33 | External Medical Summary | Summary of Care ---
Author Name Unknown Organization [facility] Address [address] [facility] [place] [address] Phone [phone] Care Team Providers Care Business Support Name Role Phone Stefani Britneysa Collette MAHONEY Primary Care Provider Reason for Visit * Reason Onset Date Comments Nurse Documentation For BP check Blood Pressure Check 12/20/2022 Encounter Details Date Type Department Care Team Description 12/20/2022 Cardiac Studies Cardiac Studies, [facility] [address] [place] [address] HTN, goal below 140/90* Allergies Active Allergy Reactions Severity Noted Date Comments Sulfa Antibiotics 11/03/2016 Trimethoprim 04/14/1997 rash documented as of this encounter (statuses as of 12/21/2022) Medications Medication Sig Dispensed Refills Start Date [...] 10 % External Solution 0 08/25/2021 Active Rosuvastatin Calcium 10 MG Oral Tablet (Crestor)Indications :Dyslipidemia, goal LDL below 160,Dyslipidemia, goal LDL below 130 TAKE 1 TABLET DAILY 90 Tablet 3 12/22/2021 Active Furosemide 20 MG Oral Tablet (Lasix) [...] at bedtime. 30 Tablet 3 12/06/2022 Active Vitamin B Complex Oral Tablet 1 Tablet. 0 11/21/2022 Active Hospital, Clinic, or Other Facility Administered Medication Ordered Dose Route Frequency Start Date End Date Status Albuterol Sulfate (Proventil) (2.5 MG/3ML) 0.083% inhalation solution 2.5 mgIndications:COPD, group B, by GOLD 2017 classification ([facility]) 2.5 mg NEBULIZER PRN 12/08/2022 12/08/2023 Acti ve Albuterol Sulfate (Proventil) (5 MG/ML) 0.5% *conc* inhalation solution 2.5 mgIndications:COPD, group B, by GOLD 2017 classification ([facility]) 2.5 mg NEBULIZER PRN 12/08/2022 12/08/2023 Acti ve documented as of this encounter (statuses as of 12/21/2022) Active Problems Problem Noted Date Protein-calorie malnutrition [...] as of this encounter (statuses as of 12/21/2022) Resolved Problems Problem Noted Date Resolved Date [...] as of this encounter (statuses as of 12/21/2022) Immunizations Name Administration Dates Next Due COVID-19 mRNA, LNP-s, No Pre serve, 2-Dose Series ([employer]) 04/22/2021,08/25/2020,08/04/2020 Diptheria/Tetanus (Adult) 07/14/19972007 Pneumococcal Conjugate Vacc, [...] pamphlet Alcohol Use Standard Drinks/Week Comments Yes 0 (1 standard drink = 0.6 oz pur e alcohol) Last alcohol intake 08/09/22 Sex Assigned at Date Recorded Female 09/22/2021 11:32 AM EDT Job Start Date Occupation Industry Not on file Not on file Not on file documented as of this encounter Last Filed Vital Signs Vital Sign Reading Time Taken Comments Blood Pressure 166/94 12/20/2022 10:24 AM EDT Pulse - - Temperature - - Respiratory Rate - - Oxygen Saturation - - Inhaled Oxygen Concentration - - Weight - - Height - - Body Mass Index - - documented in this encounter Progress Notes * Bert Mckeon RN - 12/20/2022 10:29 AM EDT Michelle Puente presented for blood pressure check per provider orders. The blood pressure was obtained using the left arm in the sitting position using a adult cuff. The results were charted in Vital Signs. BP Readings from Last 3 Encounters: 12/20/22 166/94 12/14/22 128/76 12/06/22 144/90 BP 166/94 (BP Cuff Size: Regular) | LMP 09/20/1999 Patient denies headache, pressure in head, dizziness, lightheadedness, chest discomfort, focal neurological symptoms, change in vision, nose bleeds. Did patient take medications today? Yes Patient was instructed to follow-up as per their next scheduled appt documented in this encounter Plan of Treatment Upcoming Encounters Date Type Specialty Care Team Description 12/21/2022 Anticoagulation Pharmacy [facility] [address] [facility] [place] [address] Anticoagulation management encounter* 12/26/2022 Anticoagulation Pharmacy [facility] [address] [place] [address] 02/15/2023 Cardiac Studies Cardiac Studies 02/27/2023 Telemedicine Pulmonary Lenin Ruth MD [address] [place] [address] Cart, Telemed Pulm Gw [address] [facility] [place] [address] 03/15/2023 Office Visit Family Medicine Britney Ko CRNP [address] [place] [address] 04/19/2023 Office Visit Cardiology Renetta Glynn PA-C [address] [place] [address] Scheduled Orders Name Type Priority Associated Diagnoses Orde r Schedule BLOOD PRESSURE Procedures Routine HTN, goal below 140/90 Ordered: 12/20/2022 Scheduled Procedures Name Priority Associated Diagnoses Date/Ti [...] exists DISCUSS TOBACCO CESSATION (REFER TO SMARTSET #5996) 02/23/2023 02/23/2022 Mammogram 10/05/2023 10/04/2022, 10/21, 10/06/2020, Additional history exists COLONOSCOPY-ANNUAL AGES 18-100 12/02/2023 12/01/2022, 05/12/2017, 05/12/2017, Additional history exists O2 ASSESSMENT COMPLETED IN PAST YEAR FOR COPD 12/07/2023 12/06/2022 GFR 12/21/2023 12/20/2022, 09/19, 08/19/2022, Additional history exists Albumin/Creatinine Ratio 01/02/2024 01/01/2021 DXA Scan 12/31/2025 [...] as of this encounter Visit Diagnoses Diagnosis HTN, goal below 140/90- Primary Unspecified essential hypertension Anticoagulation management encounter- Primary Encounter for therapeutic drug monitoring documented in this encounter Care Teams Business Support Relationship Specialty Start Date End Date Britney Ko CRNP [address] [place] [address] PCP - General Nurse Practitioner 09/22/21 documented as of this encounter"
--- OUTSIDE RECORDS SUMMARY | 2023-05-03 07:33 | External Medical Summary | Summary of Care ---
Author Name Unknown Organization [facility] Address [address] [facility] [place] [address] Phone [phone] Care Team Providers Care Etcher Apprentice Name Role Phone Britney Ko Collette MAHONEY Primary Care Provider Reason for Visit * Reason Onset Date Comments Test Results 12/23/2022 Encounter Details Date Type Department Care Team Description 12/23/2022 Telephone Cardiology, [facility] [address] [place] [id number] Renetta Glynn PA-C [address] [place] [address] Test Results Allergies Active Allergy Reactions Severity Noted Date Comments Sulfa Antibiotics 11/03/2016 Trimethoprim 04/14/1997 rash documented as of this encounter (statuses as of 12/23/2022) Medications Medication Sig Dispensed Refills Start Date [...] the morning. 90 Tablet 3 12/23/2022 Active Rosuvastatin Calcium 10 MG Oral Tablet (Crestor)Indicatio ns:Dyslipidemia, goal LDL below 160,Dyslipidemia, goal LDL below 130 TAKE 1 TABLET DAILY 90 Tablet 3 12/22/2021 12/23/2022 Discontinue d(Refill) Hospital, Clinic, or Other Facility Administered Medication Ordered Dose Route Frequency Start Date End Date Status Albuterol Sulfate (Proventil) (2.5 MG/3ML) 0.083% inhalation solution 2.5 mgIndications:COPD, group B, by GOLD 2017 classification ([facility]) 2.5 mg NEBULIZER PRN 12/08/2022 12/08/2023 Acti ve Albuterol Sulfate (Proventil) (5 MG/ML) 0.5% *conc* inhalation solution 2.5 mgIndications:COPD, group B, by GOLD 2017 classification ([facility]) 2.5 mg NEBULIZER PRN 12/08/2022 12/08/2023 Acti ve documented as of this encounter (statuses as of 12/23/2022) Active Problems Problem Noted Date Protein-calorie malnutrition [...] as of this encounter (statuses as of 12/23/2022) Resolved Problems Problem Noted Date Resolved Date [...] as of this encounter (statuses as of 12/23/2022) Immunizations Name Administration Dates Next Due COVID-19 mRNA, LNP-s, No Pre serve, 2-Dose Series ([facility]) 04/22/2021,08/25/2020,08/04/2020 Pneumococcal Conjugate Vacc, 13 Valent (Prevnar) [...] Miscellaneous Notes * Telephone Encounter - MARU Jama - 12/23/2022 1:11 PM EDT Signed in coverage of Renetta Glynn * Telephone Encounter - Ej Osborn LPN - 12/23/2022 12:55 PM EDT Called patient and informed of Renetta's message. Patient verbalized understanding. Patient stated she is taking 10 mg rosuvastatin daily and will increase to 20 daily. New prescription pended. Patient also stated she is taking Furosemide 20 mg daily and will hold for now and repeat BMP next week. ----- Message from Renetta Glynn PA-C sent at 12/21/2022 3:02 PM EDT ----- Cholesterol uncontrolled and significantly higher. See if patient is taking rosuvastatin 10 mg daily? If compliant with medication, increase dose to 20 mg daily Patient's sodium is lower. Strict fluid restriction of 50-60 ounces per day. No alcohol. See if she is still taking furosemide and what dose? Would hold diuretic for now Repeat BMP early next week documented in this encounter Plan of Treatment Upcoming Encounters Date Type Specialty Care Team Description 12/26/2022 Anticoagulation Pharmacy [facility] Jasvir [address] [place] [address] 12/26/2022 Imaging Radiology 02/15/2023 Cardiac Studies Cardiac Studies 02/27/2023 Telemedicine Pulmonary Lenin Ruth MD [address] [place], [place] [id number] Cart, Telemed Pul Gw [address] [facility] [place] [address] 03/15/2023 Office Visit Family Medicine Britney Ko CRNP [address] [place] [address] 03/23/2023 Imaging Radiology 04/05/2023 Office Visit Vascular Surgery Killian Gan MD [address] [place] [address] 04/19/2023 Office Visit Cardiology Renetta Glynn PA-C [address] [facility] [place] [id number] 07/27/2023 Office Visit Rheumatology Tanner Alston MD [address] [facility], [place] [address] Scheduled Orders Name Type Priority Associated Diagnoses Orde r Schedule BASIC METABOLIC PANEL Lab Routine Hyponatremia Expected: 12/27/2022 (Approximate), Expires: 12/24/2023 Scheduled Procedures Name Priority Associated Diagnoses Date/Ti [...] COMPLETED IN PAST YEAR FOR COPD 12/07/2023 12/23/2022 GFR 12/21/2023 12/20/2022, 09/19, 08/19/2022, Additional history [...] Diagnoses Diagnosis Hyponatremia- Primary Hyposmolality and/or hyponatremia Hypernatremia Hyperosmolality and/or hypernatremia PURE HYPERCHOLESTEROLEM Other and unspecified hyperlipidemia Dyslipidemia, goal LDL below 130 Other and unspecified hyperlipidemia documented in this encounter Care Teams Etcher Apprentice Relationship Specialty Start Date End Date Britney Ko CRNP [address] [place] [address] PCP - General Nurse Practitioner 09/22/21 documented as of this encounter
--- OUTSIDE RECORDS SUMMARY | 2023-05-03 07:33 | External Medical Summary | Summary of Care ---
Author Name Unknown Organization [facility] Address [address] [facility] [place] [address] Phone [phone] Care Team Providers Care Hospitality Director Name Role Phone Britney Ko Collette MAHONEY Primary Care Provider Reason for Visit * Reason Comments Appointment No Show Encounter Details Date Type Department Care Team Description 01/02/2023 Anticoagulation Pharmacy, [facility] [address] [facility] [place] [address] [facility] [address] [facility] [place] [address] Anticoagulation management encounter* Allergies Active Allergy Reactions Severity Noted Date Comments Sulfa Antibiotics 11/03/2016 Trimethoprim 04/14/1997 rash documented as of this encounter (statuses as of 01/02/2023) Medications Medication Sig Dispensed Refills Start Date [...] 24 Hour (toPROL XL)Indications:Perma nent atrial fibrillation ([facility]),History of alcohol abuse,Tobacco abuse,HTN, goal below 140/90,Hyponatremia, Valvular heart disease,PAD (peripheral artery disease) ([facility]),Dyslipidemia, goal LDL below 70 TAKE [...] mgIndications:COPD, group B, by GOLD 2017 classification ([facility]) 2.5 mg NEBULIZER PRN 12/08/2022 12/08/2023 Acti ve Albuterol Sulfate (Proventil) (5 MG/ML) 0.5% *conc* inhalation solution 2.5 mgIndications:COPD, group B, by GOLD 2017 classification (HCC) 2.5 mg NEBULIZER PRN 12/08/2022 12/08/2023 Acti ve documented as of this encounter (statuses as of 01/02/2023) Active Problems Problem Noted Date Protein-calorie malnutrition [...] as of this encounter (statuses as of 01/02/2023) Resolved Problems Problem Noted Date Resolved Date [...] as of this encounter (statuses as of 01/02/2023) Immunizations Name Administration Dates Next Due COVID-19 mRNA, LNP-s, No Pre serve, 2-Dose Series ([facility]) 04/22/2021,08/25/2020,08/04/2020 Pneumococcal Conjugate Vacc, 13 Valent (Prevnar) [...] as of this encounter Progress Notes * ES Das - 01/02/2023 9:03 AM EDT Patient Phone Numbers Spoke with patient to schedule [facility] appointment for coag management. Appointment scheduled as notedbelow. 01/05/2023 Thank you, Cristy Barajas Box Office Clerk Centralized Clinical Pharmacy Services (CCPS) 01/02/2023,9:03 AM documented in this encounter Plan of Treatment Upcoming Encounters Date Type Specialty Care Team Description 01/05/2023 Anticoagulation Pharmacy [facility] Jasvir [address] [facility] [place] [address] 02/15/2023 Cardiac Studies Cardiac Studies 02/27/2023 Telemedicine Pulmonary Lenin Ruth MD [address] [place] [address] Marcello Vyased Pulm Gw [address] [facility] [place] [address] 03/15/2023 Office Visit Family Medicine Britney Ko CRNP [address] [place] [address] 03/23/2023 Imaging Radiology 04/05/2023 Office Visit Vascular Surgery Killian Gan MD [address] [place] [address] 04/19/2023 Office Visit Cardiology Renetta Glynn PA-C [address] [facility] [address] 07/27/2023 Office Visit Rheumatology Tanner Alston MD [address] [place] [address] Scheduled Procedures Name Priority Associated Diagnoses Date/Ti [...] exists DISCUSS TOBACCO CESSATION (REFER TO SMARTSET #4051) 02/23/2023 02/23/2022 Mammogram 10/05/2023 10/04/2022, 10/21, 10/06/2020, [...] monitoring documented in this encounter Care Teams Hospitality Director Relationship Specialty Start Date End Date Britney Ko CRNP [address] [place] [address] PCP - General Nurse Practitioner 09/22/21 documented as of this encounter
--- OUTSIDE RECORDS SUMMARY | 2023-05-03 07:33 | External Medical Summary | Summary of Care ---
Author Name Unknown Organization [facility] Address [address] [place] [address] Phone [phone] Care Team Providers Care Dial Printer Name Role Phone Britney Ko Collette MAHONEY Primary Care Provider Encounter Details Date Type Department Care Team Description 12/21/2022 Telemedicine Vascular Surg [facility] [address], [place] [id number] Yves Rios CRNP [address] [place] [address] Severe peripheral arterial disease (HCC)* Allergies Active Allergy Reactions Severity Noted [...] 24 Hour (toPROL XL)Indications:Perma nent atrial fibrillation ([facility]),History of alcohol abuse,Tobacco abuse,HTN, goal below 140/90,Hyponatremia, Valvular heart disease,PAD (peripheral artery disease) ([facility]),Dyslipidemia, goal LDL below 70 TAKE 1 TABLET EVERY MORNING 90 Tablet 3 10/27/2022 Active Losartan Potassium 25 MG Oral Tablet (Cozaar) Take 1 Tablet by mouth in the morning. 34 Tablet 11 12/06/2022 Active traZODone HCl 100 MG Oral Tablet (Desyrel) Take 1 Tablet by mouth at bedtime. 30 Tablet 3 12/06/2022 Active Vitamin B Complex Oral Tablet 1 Tablet. 0 11/21/2022 Active Trelegy Ellipta 100-62.5-25 MCG/ACT Aerosol Powder Breath Activated (Fluticasone-Umeclid inium-Vilanterol) Inhale 1 Puff by mouth. 0 Active Hospital, Clinic, or Other Facility Administered Medication Ordered Dose Route Frequency Start Date End Date Status Albuterol Sulfate (Proventil) (2.5 MG/3ML) 0.083% inhalation solution 2.5 mgIndications:COPD, group B, by GOLD 2017 classification ([facility]) 2.5 mg NEBULIZER PRN 12/08/2022 12/08/2023 Acti ve Albuterol Sulfate (Proventil) (5 MG/ML) 0.5% *conc* inhalation solution 2.5 mgIndications:COPD, group B, by GOLD 2017 classification ([facility]) 2.5 mg NEBULIZER PRN 12/08/2022 12/08/2023 Acti [...] mRNA, LNP-s, No Pre serve, 2-Dose Series (Ambiq Micro) 04/22/2021,08/25/2020,08/04/2020 Pneumococcal Conjugate Vacc, 13 Valent (Prevnar) [...] as of this encounter Progress Notes * MARU Nelson - 12/21/2022 12:31 PM EDT Images from the original note were not included. Patient location: HOME. I was in a hospital or clinic location. After connecting through phone, patient was verified with two unique identifiers. Patient (or authorized legal school admissions representative) was theninformed that this was a Telemedicine visit and being conducted confidentially over secure lines. Methods to assure confidentiality were taken. Patient acknowledged consent and understanding of privacy and security of the Telemedicine visit. The patient agreed to participate. After connecting to the patient via telephone, the patient was identified by name and date of . Patient was then informed that this was a telephone call only visit. The patient agreed to participate. Visit Disposition: Routine follow-up Total call duration was 8 minutes. Date of Service: 12/21/2022 12:31 PM Michelle Puente is a 67 year old female. Patient being seen in consultation at the request of MARU Crow Chief Complaint: Here for further workup of her severe PAD with a CTA runoff. Accompanied by . HPI: PERIPHERAL VASCULAR DISEASE: Short-distance claudication in calves. Wears a R shoe lift from when she broke her femur. Several foot symptoms, which have been present for many years: -Electric shocks in feet, constant -Sensation of swelling under toes, constant -Feet hurt more with walking - wearing a shoe helps some Tried 100 mg Gabapentin TID; no help. Denies ischemic rest pain - sleeps from MN=>0400, without pain. PVD Assessment [place]ree Classification: Stage 3 - Severe claudication The Lower Extremity Threatened Limb Classification System (WIFI): Ischemia WIFI: Grade 3 '150' MARGOTH < or =0.39, Ankle systolic pressure <50 mmHg, TP/TcPO2 <30. FAMILY HISTORY: No family history of aortic aneurysms. Current Outpatient Medications Medication Sig Dispense Refill Thiamine Mononitrate (VITAMIN B1) 100 MG TABS Take by mouth. Folic Acid 400 MCG Tablet Take 1 Tablet by mouth in the morning. Albuterol Sulfate (ALBUTEROL HFA) 108 (90 BASE) MCG/ACT inhaler Inhale 2 Puffs by mouth every 4hours as needed for Shortness of Breath. 18 g 5 Acetaminophen 325 MG CAPS Take 500 mg by mouth 2 times a day as needed for Pain, Mild or Pain, Moderate (Not to exceed 1000 mg per day). Magnesium Oxide 200 MG Oral Tablet Take by mouth 1 Tablet daily . Jublia 10 % External Solution Rosuvastatin Calcium 10 MG Oral Tablet (Crestor) TAKE 1 TABLET DAILY 90 Tablet 3 Furosemide 20 MG Oral Tablet (Lasix) TAKE 1 TABLET BY MOUTH IN THE MORNING. 34 Tablet 5 Ammonium Lactate 12 % External Lotion Apply to both feet once daily. Dispense 3 400g tubes. 400g 0 Warfarin Sodium 10 MG Oral Tablet [...] by mouth at bedtime. 30 Tablet 3 Vitamin B Complex Oral Tablet 1 Tablet. Trelegy Ellipta 100-62.5-25 MCG/ACT Aerosol Powder Breath Activated (Jzowqbjolnk-Lpfgkjrqsxho-Hwrfwgwvoi) Inhale 1 Puff by mouth. Current Facility-Administered Medications Medication Dose Route Frequency Provider Last Rate Last Admin Albuterol Sulfate (Proventil) (2.5 MG/3ML) 0.083% inhalation solution 2.5 mg 2.5 mg Nebulizer PRN Brendan Whitney MD 2.5 mg at 12/21/22 1045 Albuterol Sulfate (Proventil) (5 MG/ML) 0.5% *conc* inhalation solution 2.5 mg 2.5 mg NebulizerPRN Brendan Whitney MD Patient Active Problem List Diagnosis Code Tobacco abuse Z72.0 PURE HYPERCHOLESTEROLEM E78.5 ADVANCE DIRECTIVE INFORMATION HTN, goal below 140/90 I10 Insomnia G47.00 Dyslipidemia, goal LDL below 130 E78.5 Encounter for smoking cessation counseling Z71.6 Depression with anxiety F41.8 Essential tremor G25.0 History of vertebral compression fracture Z87.81 History of alcohol abuse F10.11 History of pleural effusion Z87.09 PHT (pulmonary hypertension) ([facility]) I27.20 Lung nodules R91.8 History of colon polyps Z86.010 History of breast cancer Z85.3 Alcohol abuse F10.10 Non-rheumatic mitral regurgitation I34.0 Chronic atrial fibrillation ([facility]) I48.20 Alcohol abuse with alcohol-induced anxiety disorder ([facility]) F10.180 Unequal leg length M21.70 Pain in both feet M79.671, M79.672 Neuropathy G62.9 PAD (peripheral artery disease) ([facility]) I73.9 COPD, group B, by GOLD 2017 classification ([facility]) J44.9 Mild episode of recurrent major depressive disorder ([facility]) F33.0 CHENG (generalized anxiety disorder) F41.1 Chronic diastolic heart failure ([facility]) I50.32 Black tarry stools K92.1 Chronic anticoagulation Z79.01 Protein-calorie malnutrition ([facility]) E46 Past Medical History: Diagnosis Date Benign neoplasm [...] performed by Karine Gamez MD at OR [facility] BREAST BIOPSY Left 03/04/2015 Malignant neoplasm of left female breast (HCC)- US guided core biopsy of 2-3:00 of left breast revealed invasive carcinoma, NST, ER/WV-, Her-2 -, US guided core biopsy left axilla lymph node negativefor metastatic carcinoma BX LYMPH NODE DEEP AXIL Left 04/01/2015 BIOPSY LYMPH NODE DEEP AXILLARY OPEN performed by Karine Gamez MD at OR [facility] DELIVERY one delivery CHEMOTHERAPY Left 05/09/15-10/06/15 COLONOSCOPY W/ BIOPSY (RECTUM) 02/26/2007 hyperplastic repeat in 10 yrs COLONOSCOPY, DIAGNOSTIC (RECTUM) 05/12/2017 hyperplastic polyps, diverticulosis, repeat 10 yrs COLONOSCOPY, DIAGNOSTIC (RECTUM) 05/12/2017 COLONOSCOPY FLEXIBLE PROXIMAL DIAGNOSTIC performed by Al Rock MD at ENDOSCOPY [facility] COLONOSCOPY, DIAGNOSTIC (RECTUM) N/A 12/01/2022 severe diverticulosis/multiple polyps/biopsies show adenomatous polyps/recall 1 year/Colonoscopy/MN EXC BREAST LESION RADMARK Right 11/04/2020 EXCISION OF BREAST LESION RADIOLOGICAL MARKER performed by Karine Gamez MD at OR [facility] IDENTIFY SENTINEL NODE, RADIOACTIVE TRACER Left 04/01/2015 INJECTION PROCEDURE FOR IDENTIFICATION SENTINEL NODE performed by Karine Gamez MD at OR [facility] INSERTION OF LENS PROSTHESIS Left 03/21/2018 INSERTION OF LENS PROSTHESIS Right 04/04/2018 LIGATE/CUT OVIDUCT(S) Tubal Ligation MAMMOGRAM BREAST NEEDLE BIOPSY CORE RIGHT Right 08/13/2020 site one benign MAMMOGRAM BREAST NEEDLE BIOPSY CORE RIGHT Right 08/13/2020 site 2 complex sclerosing lesion. MASTECTOMY, PARTIAL Left 04/01/2015 04/01/2015MASTECTOMY PARTIAL performed by Karine Gamez MD at OR [facility] OTHER 05/14/2015 placement of a-port tunneled central venous access catheter with port [facility] Dr. Cohen 05/14/2015 RADIATION THERAPY Left 11/10/15-12/28/15 TREAT TROCHANTERIC FRACTURE W/IMPLANT Right 11/24/2018 rt trochanteric nail Family History Problem Relation Age of Onset Arthritis Mother Rheumatoid Heart Disorder Mother A Fib, pacemaker Diabetes Father Cancer Father Prostate Breast Cancer Sister 58 Heart Disorder Grandmother (Maternal) pacemaker Cancer Grandmother (Maternal) Thyroid Breast Cancer Aunt (Paternal) Social History Socioeconomic History Marital status: Spouse [...] Substance and Sexual Activity Alcohol use: Yes Comment: Last alcohol intake 08/09/22 Drug use: [...] on file Housing Stability: Not on file COMPLETE REVIEW OF SYSTEMS: Consitutional: denies fever/chills Eyes: denies amaurosis fugax Ears, Nose, Throat: denies difficulty swallowing Cardiovascular: Negative for chest pain Respiratory: Negative shortness of breath GI: denies BRBPR : denies hematuria Skin: denies ulcers Neurological: Negative for stroke/TIA All other systems negative except for those noted above and in the history of present illness (HPI). GENERAL MULTI-SYSTEM PHYSICAL EXAM: telephonic appointment VITAL SIGNS: [facility] 09/20/1999 GENERAL MULTI-SYSTEM PHYSICAL EXAM: GENERAL: Normal grooming habits, no acute distress and appears stated age. RESPIRATORY: respiratory effort normal CARDIOVASCULAR: RRR, no heart murmurs, no BLE edema, varicosities of bilateral lower extremities with scattered spider veins, ochoa phlebetica of bilateral ankle/foot region GASTROINTESTINAL: no tenderness, protuberant and abdominal aorta not palpable. SKIN: no ulcers of feet bilaterally; positive dependent rubor of feet and bluish hue of bilateral toes PSYCHIATRIC: orientation to time, place and person normal and recent and remote memory normal. EYES: conjunctivae normal NEUROLOGIC: Motor function grossly intact PULSE SCALE: Carotid Right:----Bruit: No Left:----Bruit: No Radial Right: 3 Left: 3 Femoral Right: 3 Left: 2 Popliteal Right: 0 Left: 0 Dorsalis Pedis Right: 0 Left: 0 Posterior Tibial Right: 0 Left: 0 PULSE SCALE: 4=Aneurysmal; 3=Normal; 2=Diminished; 1=Barely Palpable; 0=Absent DIAGNOSTIC STUDIES: 12/21/22: CTA Runoff: No AAA. Scattered iliac disease, but not severe. Mid-R SFA occlusion. Flush L SFA occlusion. 7/26/23: MARGOTH: The above diagnostic images were directly visualized and independently interpreted by me on 12/21/2022 with results as above 09/14/22: MARGOTH: .61 / .56 ; monophasic waveforms bilaterally 09/09/21: MARGOTH 0.66/0.59 09/09/21: CT of Chest: No AAA, calcifications of abd aorta LABS: Creatinine Results: Lab Results Component Value Date/Time CREATININE - [facility] 0.4 (L) 12/20/2022 10:34 AM CREATININE - [facility] 0.4 (L) 09/30/2022 09:15 AM CREATININE - [facility] 0.6 08/19/2022 05:55 AM CREATININE - [facility] 0.7 05/28/2020 12:13 PM CREATININE - [facility] 0.5 01/23/2020 01:33 PM CREATININE - [facility] 0.5 10/10/2019 04:23 PM CREATININE, RANDOM URINE - [facility] 39 01/01/2021 10:04 AM CREATININE-OUTSIDE LAB 0.46 (A) 02/26/2017 12:00 AM Lab Results Component Value Date/Time LDL CHOLESTEROL (CALCULATED) - [facility] 136 (H) 12/20/2022 10:34 AM LDL CHOLESTEROL (CALCULATED) - [facility] 119 03/30/2016 09:10 AM LDL CHOLESTEROL (DIRECT MEASURE) - [facility] 162 (H) 09/30/2020 01:49 PM LDL CHOLESTEROL (DIRECT MEASURE) - [facility] 134 (H) 10/10/2019 04:23 PM Hemoglobin Results: Lab Results Component Value Date/Time HGB - [facility] 15.5 (H) 09/30/2022 09:15 AM HGB - [facility] 12.7 08/19/2022 05:55 AM HGB - [facility] 15.1 08/24/2021 04:24 PM HGB - [facility] 13.8 05/28/2020 12:13 PM HGB - [facility] 14.0 01/23/2020 01:33 PM HGB - [facility] 15.0 10/10/2019 04:23 PM Hemoglobin A1C (%) Date Value 11/12/2021 5.8 (H) 03/30/2016 5.1 The above clinical lab tests were reviewed by me on 12/21/2022 IMPRESSIONS: Severe PAD with short-distance claudication and neuropathy of feet (neuropathy likely of mixed etiology) with bilateral SFA occlusions. No AAA, per 2022 CTA. Smoker. Dyslipidemia. Crestor 10 mg HTN Afib. Coumadin H/O ORIF right prox humeral fracture. Wears a lift CHF COPD/Centrilobular emphysema Breast cancer. S/P lobectomy/radiation/chemo. PLAN: Severe PAD with short-distance claudication and neuropathy of feet (neuropathy likely of mixed etiology - some may be from chemo; however, suspect some from ischemia) I think a revascularization would improve her claudication. I discussed that I am NOT SURE if it will improve her foot symptoms - given chronicity, I am not sure if a revascularization will remit symptoms. I do think that limb salvage surgery will be required for her at some point r/t tissue loss. We got a CTA to further evaluate revascularization options. Mid-R SFA occlusion. Flush L SFA occlusion. Could probably treat R SFA occlusion easily. L SFA with flush occlusion would be more of a challenge, but would attempt. No guarantee it would make her feet feel better - I suspect much of her pain is neuropathic. Discussed with patient. For now, declines revascularization attempt. The patient was instructed on the dire importance foot care and proper footwear, and the risk for non-healing ulcers/limb loss. Continue Coumadin (for hx a-fib) Continue 10 mg Crestor daily for hyperlipidemia RTC in [address] [facility] with Dr. Gan with an MARGOTH prior. MARU Talley [facility] documented in this encounter Plan of Treatment Upcoming Encounters Date Type Specialty Care Team Description 12/21/2022 Anticoagulation Pharmacy [place], [facility] [address] [place] [address] Anticoagulation management encounter* 12/26/2022 Anticoagulation Pharmacy [facility] [address] [place] [address] 02/15/2023 Cardiac Studies Cardiac Studies 02/27/2023 Telemedicine Pulmonary Lenin Ruth MD [address] [facility] [place], [place] [address] Cart, Telemed Pulm Gw [address] [place] [address] 03/15/2023 Office Visit Family Medicine Britney Ko CRNP [address] [place] [address] 04/19/2023 Office Visit Cardiology Renetta Glynn PA-C [address] [place] [address] Scheduled Orders Name Type Priority Associated Diagnoses Orde r Schedule VASC ANKLE BRACHIAL INDICES WITHOUT PPG (PAD) Medical Imaging Routine Severe peripheral arterial disease (HCC) Ordered: 12/21/2022 Scheduled Procedures Name Priority Associated Diagnoses Date/Ti [...] encounter- Primary Encounter for therapeutic drug monitoring Severe peripheral arterial disease (HCC)- Primary documented in this encounter Care Teams Dial Printer Relationship Specialty Start Date End Date Britney Ko CRNP [address] [place] [address] PCP - General Nurse Practitioner 09/22/21 documented as of this encounter
--- OUTSIDE RECORDS SUMMARY | 2023-05-03 07:33 | External Medical Summary | Summary of Care ---
Author Name Unknown Organization [facility] Address [address] [facility] [place] [address] Phone [phone] Care Team Providers Care Airline Customer Service Agent Name Role Phone Britney Ko Primary Care Provider Reason for Visit * Reason Comments Dosage Adjustment Via Phone (anticoag Cl inic) Encounter Details Date Type Department Care Team Description 12/21/2022 Anticoagulation Pharmacy, [facility] [address] [facility] [place] [address] [facility] [address] Anticoagulation management encounter* Allergies Active Allergy Reactions [...] 24 Hour (toPROL XL)Indications:Perma nent atrial fibrillation ([facility]),History of alcohol abuse,Tobacco abuse,HTN, goal below 140/90,Hyponatremia, Valvular heart disease,PAD (peripheral artery disease) ([facility]),Dyslipidemia, goal LDL below 70 TAKE 1 TABLET [...] mgIndications:COPD, group B, by GOLD 2017 classification ([facility]) 2.5 mg NEBULIZER PRN 12/08/2022 12/08/2023 Acti ve Albuterol Sulfate (Proventil) (5 MG/ML) 0.5% *conc* inhalation solution 2.5 mgIndications:COPD, group B, by GOLD 2017 classification ([facility]) 2.5 mg NEBULIZER PRN 12/08/2022 12/08/2023 Acti [...] mRNA, LNP-s, No Pre serve, 2-Dose Series ([email or web address].asia) 04/22/2021,08/25/2020,08/04/2020 Pneumococcal Conjugate Vacc, 13 Valent (Prevnar) [...] of this encounter Progress Notes * ES Telles - 12/21/2022 8:34 AM EDT Patient Phone Numbers Spoke with patient to schedule [facility] appointment for coag management. Appointment scheduled as notedbelow. 12/26/2022 Thank you, Kimberly Arroyo [facility] ([facility]) [phone] 12/21/2022,8:34 AM documented in this encounter Plan of Treatment Upcoming Encounters Date Type Specialty Care Team Description 12/21/2022 Imaging Radiology 12/21/2022 PulmDiagnostic Pulmonary Function [place], [facility] [address] [place] [address] 12/26/2022 Anticoagulation Pharmacy [facility] [address] [place] [address] 02/15/2023 Cardiac Studies Cardiac Studies 02/27/2023 Telemedicine Pulmonary Lenin Ruth MD [address] [facility] [place], [place] [address] Cart, Telemed Pulm Gw [address] [place] [address] 03/15/2023 Office Visit Family Medicine Britney Ko CRNP [address] [place] [address] 04/19/2023 Office Visit Cardiology Renetta Glynn PA-C [address] [place] [address] Scheduled Procedures Name Priority Associated Diagnoses Date/Ti [...] exists DISCUSS TOBACCO CESSATION (REFER TO SMARTSET #[id number]) 02/23/2023 02/23/2022 Mammogram 10/05/2023 10/04/2022, 10/21, 10/06/2020, [...] monitoring documented in this encounter Care Teams Airline Customer Service Agent Relationship Specialty Start Date End Date Britney Ko CRNP [address] [place] [address] PCP - General Nurse Practitioner 09/22/21 documented as of this encounter
--- OUTSIDE RECORDS SUMMARY | 2023-05-03 07:33 | External Medical Summary | Summary of Care ---
Author Name Unknown Organization [facility] Address [address] [facility] [place] [address] Phone [phone] Care Team Providers Care Dye House Hand Name Role Phone NayaBritney britton Collette MAHONEY Primary Care Provider Reason for Visit * Reason Comments Pulmonary Function Test PFT with broncho dilator Oxygen Assessment Pt requested to not do walk. Pt only walked a little and holds onto furniture. Encounter Details Date Type Department Care Team Description 12/21/2022 PulmDiagnostic Pulmonary Function Lab, [facility] [address] [facility] [place] [address] [place], [address] [place] [address] COPD, group B, by GOLD 2017 classification ([facility])* Allergies Active Allergy Reactions Severity Noted Date [...] 24 Hour (toPROL XL)Indications:Perma nent atrial fibrillation ([facility]),History of alcohol abuse,Tobacco abuse,HTN, goal below 140/90,Hyponatremia, Valvular heart disease,PAD (peripheral artery disease) ([facility]),Dyslipidemia, goal LDL below 70 TAKE [...] mgIndications:COPD, group B, by GOLD 2017 classification ([facility]) 2.5 mg NEBULIZER PRN 12/08/2022 [...] mRNA, LNP-s, No Pre serve, 2-Dose Series (Asana) 04/22/2021,08/25/2020,08/04/2020 Pneumococcal Conjugate Vacc, 13 Valent (Prevnar) [...] Sign Reading Time Taken Comments Blood Pressure - - Pulse - - Temperature 35.8 C (96.5 F) 12/21/2022 10:52 AM E DT Respiratory Rate - - Oxygen Saturation - - Inhaled Oxygen Concentration - - Weight 58 kg (127 lb 13.9 oz) 12/21/2022 10:52 A M EDT Height 159.5 cm (5' 2.8") 12/21/2022 10:52 AM ED T Body Mass Index 22.8 12/21/2022 10:52 AM EDT documented in this encounter Nursing Notes * Gloria Celis, BUILDING CLEANING SUPERVISOR - 12/21/2022 10:56 AM EDT Michelle Puente was identified by name, Date of : (1955), and . Vitals were obtained for testing. Body mass index is 22.8 kg/m. Pt has a 1 ppd for 44 yesrs smoking history and still currently smokes. 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 Spirometry, DLCO, RAW, and TGV performed. A slow volume nebulizer treatment of 0.5ml of albuterol in 3 ml of NSS was given. The proper method of use, as well as anticipated side effects, of this svn are discussed and demonstrated to the patient. Patient demonstrates adequate delivery. Administrations This Visit Albuterol Sulfate (Proventil) (2.5 MG/3ML) 0.083% inhalation solution 2.5 mg Admin Date 12/21/2022 Action Given Dose 2.5 mg Route Nebulizer Administered By Gloria Celis RRT documented in this encounter Plan of Treatment Upcoming Encounters Date Type Specialty Care Team Description 12/21/2022 Anticoagulation Pharmacy [place], [facility] [address] [facility] [place] [address] Anticoagulation management encounter* 12/26/2022 Anticoagulation Pharmacy [place], [facility] [address] [facility] [place] [address] 02/15/2023 Cardiac Studies Cardiac Studies 02/27/2023 Telemedicine Pulmonary Lenin Ruth MD [address] [place], [place] [id number] Cart, Telemed Pulm [address] [facility] [place] [address] 03/15/2023 Office Visit Family Medicine Britney Ko CRNP [address] [place] [address] 04/19/2023 Office Visit Cardiology Renetta Glynn PA-C [address] [place] [address] Scheduled Procedures Name Priority Associated Diagnoses Date/Ti [...] as of this encounter Visit Diagnoses Diagnosis COPD, group B, by GOLD 2017 classification (HCC)- Primary Anticoagulation management encounter- Primary Encounter for therapeutic drug monitoring documented in this encounter Administered Medications Active Administered Medications - up to 3 most recent administrations Medication Order MAR Action Action Date Dose Rate Site Albuterol Sulfate (Proventil) (2.5 MG/3ML) 0.083% inhalation solution 2.5 mg 2.5 mg, Nebulizer, PRN Other, Starting on Shannan 12/08/22 at 0753, Until 12/08/23 at 0752, For 365 days, Only one type of albuterol product should be administered (Nebulizer or Inhaler). Please select and document on the appropriate albuterol product order. Given 12/21/2022 10:45 AM EDT 2.5 mg documented in this encounter Care Teams Dye House Hand Relationship Specialty Start Date End Date Britney Ko CRNP [address] [place] [address] PCP - General Nurse Practitioner 09/22/21 documented as of this encounter
--- OUTSIDE RECORDS SUMMARY | 2023-05-03 07:34 | External Medical Summary | Summary of Care ---
Author Name Unknown Organization [facility] Address [address] [facility] [place] [address] Phone [phone] Care Team Providers Care Intake Specialist Name Role Phone NayaBritney britton Collette MAHONEY Primary Care Provider Reason for Visit * Reason Comments Outpatient Testing Encounter Details Date Type Department Care Team Description 12/20/2022 Laboratory Laboratory, [facility] [address] [facility] [place] [address] [facility] [address] HTN, goal below 140/90; Dyslipidemia, goal LDL below 70; PAD (peripheral artery disease) (HCC); Chronic diastolic heart failure (HCC); Permanent atrial fibrillation (HCC); Severe peripheral arterial disease (HCC) Allergies Active Allergy Reactions Severity Noted Date Comments Sulfa Antibiotics 11/03/2016 Trimethoprim 04/14/1997 rash documented as of this encounter (statuses as of 12/20/2022) Medications Medication Sig Dispensed Refills Start Date [...] 24 Hour (toPROL XL)Indications:Perma nent atrial fibrillation ([facility]),History of alcohol abuse,Tobacco abuse,HTN, goal below 140/90,Hyponatremia, Valvular heart disease,PAD (peripheral artery disease) ([facility]),Dyslipidemia, goal LDL below 70 TAKE 1 [...] mgIndications:COPD, group B, by GOLD 2017 classification ([facility]) 2.5 mg NEBULIZER PRN 12/08/2022 12/08/2023 Acti ve Albuterol Sulfate (Proventil) (5 MG/ML) 0.5% *conc* inhalation solution 2.5 mgIndications:COPD, group B, by GOLD 2017 classification ([facility]) 2.5 mg NEBULIZER PRN 12/08/2022 12/08/2023 Acti ve documented as of this encounter (statuses as of 12/20/2022) Active Problems Problem Noted Date Protein-calorie malnutrition [...] as of this encounter (statuses as of 12/20/2022) Resolved Problems Problem Noted Date Resolved Date [...] as of this encounter (statuses as of 12/20/2022) Immunizations Name Administration Dates Next Due COVID-19 [...] Function West, Pft [address] [place] [address] 12/21/2022 Anticoagulation Pharmacy [facility] Jasvir [address] [place] [address] 02/15/2023 Cardiac Studies Cardiac Studies 02/27/2023 Telemedicine Pulmonary Lenin Ruth [facility] [address] [facility] [id number] Cart, [place] Pulm Gw [address] [place] [address] 03/15/2023 Office Visit Family Medicine Britney Ko CRNP [address] [place] [address] 04/19/2023 Office Visit Cardiology Renetta Glynn PA-C [address] [place] [address] Pending Results Name Type Priority Associated Diagnoses Date /Time COMPREHENSIVE METABOLIC PANEL Lab Routine HTN, goal below 140/90 Dyslipidemia, goal LDL below 70 PAD (peripheral artery disease) (HCC) Chronic diastolic heart failure (HCC) Permanent atrial fibrillation (HCC) 12/20/2022 10:34 AM EDT LIPID PANEL WITH DIRECT LDL IF TG IS HIGH Lab Routine HTN, goal below 140/90 Dyslipidemia, goal LDL below 70 PAD (peripheral artery disease) (HCC) Chronic diastolic heart failure (HCC) Permanent atrial fibrillation (HCC) 12/20/2022 10:34 AM EDT MAGNESIUM Lab Routine HTN, goal below 140/90 Dyslipidemia, goal LDL below 70 PAD (peripheral artery disease) (HCC) Chronic diastolic heart failure (HCC) Permanent atrial fibrillation (HCC) 12/20/2022 10:34 AM EDT Scheduled Procedures Name Priority Associated Diagnoses [...] CESSATION (REFER TO SMARTSET #3291) 02/23/2023 02/23/2022 GFR 10/01/2023 09/30/2022, 07/22, 02/28/2022, Additional history exists Mammogram 10/05/2023 10/04/2022, 10/21, 10/06/2020, Additional history exists COLONOSCOPY-ANNUAL AGES 18-100 12/02/2023 12/01/2022, 05/12/2017, 05/12/2017, Additional history exists O2 ASSESSMENT COMPLETED IN PAST YEAR FOR COPD 12/07/2023 12/06/2022 Albumin/Creatinine Ratio 01/02/2024 01/01/2021 DXA Scan 12/31/2025 12/31/2018, 04/21, 05/08/2003 DTaP,Tdap,and Td Vaccines (3 - Td or Tdap) 01/11/2027 01/11/2017, 01/30/2007, 07/14/1997 Lipid Panel 10/01/2027 09/30/2022, 12/20, 09/30/2020, Additional history exists Pneumococcal Vaccine: 65+ Years [...] encounter Visit Diagnoses Diagnosis HTN, goal below 140/90 Unspecified essential hypertension Dyslipidemia, goal LDL below 70 Other and unspecified hyperlipidemia PAD (peripheral artery disease) (HCC) Peripheral vascular disease, unspecified Chronic diastolic heart failure (HCC) Chronic diastolic heart failure Permanent atrial fibrillation (HCC) Atrial fibrillation Severe peripheral arterial disease (HCC) documented in this encounter Care Teams Intake Specialist Relationship Specialty Start Date End Date Britney Ko CRNP [address] [place] [address] PCP - General Nurse Practitioner 09/22/21 documented as of this encounter
--- OUTSIDE RECORDS SUMMARY | 2023-05-03 07:34 | External Medical Summary ---
Author Name Unknown Address Unknown Organization K01:[facility] [address] [facility] [place] [address] Laboratory Report Ordering Provider Test Date Status TIM LIMON 12/20/2022 10:34:49 Final Observation Date Value Abnormality Reference (Units ) Status Triglyceride 12/20/2022 10:34:49 68 <=174 ( mg/dL) Final Triglyceride Reference Range s (mg/dL):
<150 Acceptable
150-174 Borderline high
175-499 High
>=500 Very high Cholesterol 12/20/2022 10:34:49 216 Above high normal <200 (mg/dL) Final Total Cholesterol Reference Ranges (mg/dL):
<200 Desirable
200-239 Borderline high
>=240 High HDL 12/20/2022 10:34:49 66 >49 (mg/dL ) Final HDL Cholesterol Reference Ra nges (mg/dL):
>=60 High (Desirable)
<50 Low (Undesirable) For Females
<40 Low (Undesirable) For Males NON-HDL CHOLESTEROL 12/20/2022 10:34:49 150 <=159 (mg/dL) Final Non-HDL Cholesterol Referenc e Range (mg/dL):
<100 Target level for high risk ASCVD patient
<130 Optimal for general population
130-159 Near optimal for general population
160-189 Borderline High
190-219 High
>=220 Very High LDL, (calculated) 12/20/2022 10:34:49 136 Above high n ormal <=129 (mg/dL) Final LDL Cholesterol Reference Ra nges (mg/dL):
<70 Target level for high risk ASCVD patient
<100 Optimal for general population
100-129 Near optimal for general population
130-159 Borderline high
160-189 High
>=190 Very high Performing Location [facility] [place] [address] [facility] [address]
--- OUTSIDE RECORDS SUMMARY | 2023-05-03 07:34 | External Medical Summary | Summary of Care ---
Author Name Unknown Organization [facility] Address [address] [place] [address] Phone [phone] Care Team Providers Care Cd Mixer Helper Name Role Phone Britney Ko Collette MAHONEY Primary Care Provider Reason for Referral * Precert (Within 10 days (routine)) - Pending Review Specialty Diagnoses / Procedures Referred By Marquita camargo Referred To Contact Radiology Diagnoses Severe peripheral arterial disease (HCC) Procedures CTA ABD AORTA/FEM RUNOFF W CONTRAST Yves Rios CRNP [address] [place] [address] Referral ID Status Reason Start Date Expiration Date V isits Requested Visits Authorized [id number] Pending Review 12/14/2022 999 999 Reason for Visit * Reason Comments Follow Up Encounter Details Date Type Department Care Team Description 12/14/2022 Office Visit Vascular Surg [facility] [address] [place] [address] Kel Dennis MD [address] [place] [address] Severe peripheral arterial disease (HCC)* Allergies Active Allergy Reactions Severity Noted Date Comments Sulfa Antibiotics 11/03/2016 Trimethoprim 04/14/1997 rash documented as of this encounter (statuses as of 12/14/2022) Medications Medication Sig Dispensed Refills Start Date [...] mgIndications:COPD, group B, by GOLD 2017 classification ([facility]) 2.5 mg NEBULIZER PRN 12/08/2022 12/08/2023 Acti ve Albuterol Sulfate (Proventil) (5 MG/ML) 0.5% *conc* inhalation solution 2.5 mgIndications:COPD, group B, by GOLD 2017 classification ([facility]) 2.5 mg NEBULIZER PRN 12/08/2022 12/08/2023 Acti ve documented as of this encounter (statuses as of 12/14/2022) Active Problems Problem Noted Date Protein-calorie malnutrition [...] as of this encounter (statuses as of 12/14/2022) Resolved Problems Problem Noted Date Resolved Date [...] as of this encounter (statuses as of 12/14/2022) Immunizations Name Administration Dates Next Due COVID-19 mRNA, LNP-s, No Pre serve, 2-Dose Series ([facility]) 04/22/2021,08/25/2020,08/04/2020 Pneumococcal Conjugate Vacc, 13 Valent (Prevnar) [...] Sign Reading Time Taken Comments Blood Pressure 128/76 12/14/2022 12:37 PM EDT Pulse 52 12/14/2022 12:37 PM EDT Temperature 35.9 C (96.6 F) 12/14/2022 1 2:37 PM EDT Respiratory Rate - - Oxygen Saturation - - Inhaled Oxygen Concentration - - Weight 57.5 kg (126 lb 11.2 oz) 023 12:37 PM EDT Height - - Body Mass Index 22.8 08/26/2022 2:26 PM EDT documented in this encounter Progress Notes * MARU Nelson - 12/14/2022 12:43 PM EDT Images from the original note were not included. Date of Service: 12/14/2022 12:45 PM Michelle Puente is a 67 year old female. Patient being seen in consultation at the request of MARU Crow Chief Complaint: Surveillance of her severe PAD Accompanied by . HPI: PERIPHERAL VASCULAR DISEASE: [...] sleeps from MN=>0400, without pain. PVD Assessment [place] Classification: Stage 3 - Severe claudication The [...] Vitamin B Complex Oral Tablet 1 Tablet. 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[facility]) F10.180 Unequal leg length M21.70 Pain in both feet M79.671, M79.672 Neuropathy G62.9 PAD (peripheral artery disease) ([facility]) I73.9 COPD, group B, by GOLD 2017 classification ([facility]) J44.9 Mild episode of recurrent major depressive disorder ([facility]) F33.0 CHENG (generalized anxiety disorder) F41.1 Chronic diastolic heart failure ([facility]) I50.32 Black tarry stools K92.1 Chronic anticoagulation Z79.01 Protein-calorie malnutrition ([facility]) E46 Past Medical History: Diagnosis Date Benign [...] performed by Karine Gamez MD at OR [facility] BREAST BIOPSY Left 03/04/2015 Malignant neoplasm of left female breast (HCC)- US guided core biopsy of 2-3:00 of left breast revealed invasive carcinoma, NST, ER/DE-, Her-2 -, US guided core biopsy left axilla lymph node negativefor metastatic carcinoma BX LYMPH NODE DEEP AXIL Left 04/01/2015 BIOPSY LYMPH NODE DEEP AXILLARY OPEN performed by Karine Gamez MD at OR [facility] DELIVERY one delivery CHEMOTHERAPY Left 05/09/15-10/06/15 COLONOSCOPY W/ BIOPSY (RECTUM) 02/26/2007 hyperplastic repeat in 10 yrs COLONOSCOPY, DIAGNOSTIC (RECTUM) 05/12/2017 hyperplastic polyps, diverticulosis, repeat 10 yrs COLONOSCOPY, DIAGNOSTIC (RECTUM) 05/12/2017 COLONOSCOPY FLEXIBLE PROXIMAL DIAGNOSTIC performed by Al Rock MD at ENDOSCOPY [facility] EXC BREAST LESION RADMARK Right 11/04/2020 EXCISION OF BREAST LESION RADIOLOGICAL MARKER performed by Karine Gamez MD at OR [facility] IDENTIFY SENTINEL NODE, RADIOACTIVE TRACER Left 04/01/2015 INJECTION PROCEDURE FOR IDENTIFICATION SENTINEL NODE performed by Karine Gamez MD at OR [facility] INSERTION OF LENS PROSTHESIS Left 03/21/2018 INSERTION OF LENS PROSTHESIS Right 04/04/2018 LIGATE/CUT OVIDUCT(S) Tubal Ligation MAMMOGRAM BREAST NEEDLE BIOPSY CORE RIGHT Right 08/13/2020 site one benign MAMMOGRAM BREAST NEEDLE BIOPSY CORE RIGHT Right 08/13/2020 site 2 complex sclerosing lesion. MASTECTOMY, PARTIAL Left 04/01/2015 04/01/2015MASTECTOMY PARTIAL performed by Karine Gamez MD at OR [facility] OTHER 05/14/2015 placement of a-port tunneled central venous access catheter with port [facility] Cohen 05/14/2015 RADIATION THERAPY Left 11/10/15-12/28/15 [...] present illness (HPI). GENERAL MULTI-SYSTEM PHYSICAL EXAM: VITAL SIGNS: BP 128/76 (BP Site: Left Arm, BP Position: Sitting, BP Cuff Size: Regular) | Pulse 52 | Temp 35.9 C (96.6 F) (Temporal Artery) | Wt 57.5 kg (126 lb 11.2 oz) | LMP 09/20/1999 | BMI 22.80 kg/m | BSA 1.59 m GENERAL MULTI-SYSTEM PHYSICAL EXAM: GENERAL: Normal grooming [...] 3=Normal; 2=Diminished; 1=Barely Palpable; 0=Absent DIAGNOSTIC STUDIES: 12/14/22: MARGOTH: The above diagnostic images were directly visualized and independently interpreted by me on 12/14/2022 with results as above 09/14/22: MARGOTH: .61 / .56 ; monophasic waveforms bilaterally 09/09/21: MARGOTH 0.66/0.59 09/09/21: CT of Chest: No AAA, calcifications of abd aorta LABS: Creatinine Results: Lab Results Component Value Date/Time CREATININE - [facility] 0.4 (L) 09/30/2022 09:15 AM CREATININE - [facility] 0.6 08/19/2022 05:55 AM CREATININE - [facility] 0.5 02/28/2022 01:03 PM CREATININE - [facility] 0.7 05/28/2020 12:13 PM CREATININE - [facility] 0.5 01/23/2020 01:33 PM CREATININE - [facility] 0.5 10/10/2019 04:23 PM CREATININE, RANDOM URINE - [facility] 39 01/01/2021 10:04 AM CREATININE-OUTSIDE LAB 0.46 (A) 02/26/2017 12:00 AM Lab Results Component Value Date/Time LDL CHOLESTEROL (CALCULATED) - [facility] 77 09/30/2022 09:15 AM LDL CHOLESTEROL (CALCULATED) - [facility] 119 [...] lab tests were reviewed by me on 12/14/2022. IMPRESSIONS: Severe PAD with short-distance claudication and neuropathy of feet (neuropathy likely of mixed etiology) Smoker. Dyslipidemia. Crestor 10 mg HTN Afib. [...] her at some point r/t tissue loss. The patient was instructed on the dire importance foot care and proper footwear, and the risk for non-healing ulcers/limb loss. She has strong femoral pulses. As a next step, will get a CTA aorta-runoff and call her, to discuss what, if anything, we could offer her for a revascularization. Continue Coumadin (for hx a-fib) Continue 10 mg Crestor daily for hyperlipidemia I will call her after her CTA, which will be done at [facility] on 12/21/2022. The patient was seen and examined with Kel Dennis MD. MARU Talley I have reviewed the advanced practitioner documentation and agree. I saw and evaluated the patient on date of service referenced in note and have performed the following medically appropriate historyand/or exam: 67 year old female with severe bilateral PAD and constant bilateral foot pain I think most of the pain is neuropathic likely from prior chemo but I do believe there is an ischemic component Short distance claudication as well Feet intact Palpable femoral pulses bilaterally so suspect SFA/pop disease She is interested in whether or not we have anything to offer to help alleviate her bilateral foot pain She is from [facility] Will get CTA w/ runoff at [facility] and call her with results and further recommendations I'm not convinced bilateral leg revascularizations would cure her foot pain but it may improve the symptoms to some degree Kel Dennis MD Section of Vascular [place] [address] [phone] documented in this encounter Nursing Notes * MAYLIN Mcginnis - 12/14/2022 12:40 PM EDT Reviewed the option of transferring scripts to [facility] pharmacy with patient and / or family. Patient was instructed to not get up on the exam table/exam chair until directed and assisted by their provider; patient is to remain seated in the chair/ wheelchair/ exam table/ exam chair for fall prevention and safety reasons. Patient is aware to have assistance to step down off exam table/exam chair with personnel. Patient voiced full comprehension of instructions. MAYLIN Mcginnis documented in this encounter Plan of Treatment Upcoming Encounters Date Type Specialty Care Team Description 12/16/2022 Anticoagulation Pharmacy [facility] Jasvir [address] [place] [address] 12/20/2022 Cardiac Studies Cardiac Studies 12/20/2022 Laboratory Laboratory [facility] Jasvir [address] [place] [address] 12/21/2022 Imaging Radiology 12/21/2022 PulmDiagnostic Pulmonary Function West, Pft [address] [place] [address] 02/15/2023 Cardiac Studies Cardiac Studies 02/27/2023 Telemedicine Pulmonary Lenin Ruth MD [address] [place] [address] Cart, Telemed Pulm Gw [address] [place] [address] 03/15/2023 Office Visit Family Medicine Britney Ko CRNP [address] [place] [address] 04/19/2023 Office Visit Cardiology Renetta Glynn PA-C [address] [place] [address] Scheduled Orders Name Type Priority Associated Diagnoses Order Schedule CTA ABD AORTA/FEM RUNOFF W CONTRAST Medical Imaging Routine Severe peripheral arterial disease (HCC) Ordered: 12/14/2022 CREATININE Lab Routine Severe peripheral arterial disease (HCC) Expected: 12/14/2022, Expires: 12/15/2023 CREATININE ISTAT, POINT OF CARE Point of Care Testing - Unsolicited Results Routine Severe peripheral arterial disease (HCC) Ordered: 12/14/2022 Scheduled Procedures Name Priority Associated Diagnoses Date/Ti me COLONOSCOPY FLEXIBLE PROXIMA L DIAGNOSTIC Recall Encounter for screening colonoscopy Health Maintenance Due Date Last Done Comments Cologuard 1998 Sigmoidoscopy 1998 COVID-19 Vaccine (4 - Pfizer risk series) 06/17/2021 04/22/2021, 08/25/2020, 08/04/2020 Depression Screening, Annual for Pts 12 and Over 12/28/2021 12/28/2020 *NEPHROLOGY REFERRAL DUE TO RESISTANT HTN 12/08/2022 Influenza Vaccine (FLU shot) (#1) 2023 03/06/2021, 01/23/2020, 02/20/2019, Additional history exists DISCUSS TOBACCO CESSATION (REFER TO SMARTSET #8967) 02/23/2023 02/23/2022 GFR 10/01/2023 09/30/2022, 07/22, 02/28/2022, Additional history exists Fecal Occult Blood Test 10/02/2023 10/01/2022 Mammogram 10/05/2023 10/04/2022, 10/21, 10/06/2020, Additional history exists O2 ASSESSMENT COMPLETED IN PAST YEAR FOR COPD 12/07/2023 12/06/2022 Albumin/Creatinine Ratio 01/02/2024 01/01/2021 DXA Scan 12/31/2025 12/31/2018, 04/21, 05/08/2003 DTaP,Tdap,and Td Vaccines (3 - Td or Tdap) 01/11/2027 01/11/2017, 01/30/2007, 07/14/1997 Lipid Panel 10/01/2027 09/30/2022, 12/20, 09/30/2020, Additional history exists Colonoscopy 12/01/2032 12/01/2022, 04/22, 05/12/2017, Additional history exists Colorectal Cancer Screening 12/01/2032 Pneumococcal Vaccine: 65+ Years Completed 01/23/2020, 08/06/2018, 12/27/2011 Zoster Vaccines Completed 01/23/2020, 05/23, 04/12/2013 Alpha-1 Antitrypsin Completed 02/28/2022 GARDASIL-HPV IMMUNIZATION SERIES Aged Out No longer eligible based on patient's age to complete this topic Hepatitis B Aged Out No longer eligi ble based on patient's age to complete this topic MENINGOCOCCAL (MENACTRA/MENVEO) Aged Out No longer eligible based on patient's age to complete this topic documented as of this encounter Medical Devices Not on filedocumented as of this encounter Visit Diagnoses Diagnosis Severe peripheral arterial disease (HCC)- Primary documented in this encounter Care Teams Cd Mixer Helper Relationship Specialty Start Date End Date Britney Ko CRNP [address] [place] [address] PCP - General Nurse Practitioner 09/22/21 documented as of this encounter"
--- OUTSIDE RECORDS SUMMARY | 2023-05-03 07:34 | External Medical Summary ---
Author Name Unknown Address Unknown Organization K01:[facility] - [address] [place] [address] Laboratory Report Ordering Provider Test Date Status TIM LIMON 12/20/2022 10:34:49 Final Observation Date Value Abnormality Reference (Units ) Status Magnesium 12/20/2022 10:34:49 1.8 1.5-2.6 (m g/dL) Final Performing Location [facility] - [address] [place] [address]
--- OUTSIDE RECORDS SUMMARY | 2023-05-03 07:34 | External Medical Summary ---
Author Name Unknown Address Unknown Organization K0G:[facility] [place] [facility] [address] - [address] [place] [address] Laboratory Report Ordering Provider Test Date Status TIM LIMON 12/20/2022 10:34:49 Final Observation Date Value Abnormality Reference (Units ) Status BUN 12/20/2022 10:34:49 7 6-20 (mg/dL) Final Creatinine 12/20/2022 10:34:49 0.4 Below low normal 0.5-1.0 (mg/dL) Final Glomerular filtration rate/1.73 sq M.predicted [Volume Rate/Area] in Serum, Plasma or Blood by Creatinine-based formula (CKD-EPI) 12/20/2022 10:34:49 >90 >=60 (mL/min) Final eGFR is calculated based on the CKD-EPI 2020 equation SODIUM 12/20/2022 10:34:49 129 Below low normal 135 -146 (mmol/L) Final Potassium 12/20/2022 10:34:49 4.7 3.5-5.1 (m mol/L) Final Cl 12/20/2022 10:34:49 87 Below low normal 98- 107 (mmol/L) Final CO2 12/20/2022 10:34:49 25 22-32 (mmo l/L) Final Anion gap 12/20/2022 10:34:49 17 Above high normal 7- 15 (mmol/L) Final Glucose 12/20/2022 10:34:49 149 Above high normal 70 -120 (mg/dL) Final Albumin 12/20/2022 10:34:49 4.4 3.8-5.0 (g /dL) Final AST (Aspartate aminotransferase) 12/20/2022 10:34:49 34 10-35 (U/L) Fin al Alk Phos 12/20/2022 10:34:49 121 35-130 (U/ L) Final Bilirubin, Total 12/20/2022 10:34:49 1.0 <=1 .2 (mg/dL) Final Calcium 12/20/2022 10:34:49 9.8 8.4-10.2 ( mg/dL) Final Protein 12/20/2022 10:34:49 7.8 6.0-8.3 (g /dL) Final ALT (Alanine aminotransferase) 12/20/2022 10:34:49 19 10-35 (U/L) Leonidas mckeon Performing Location LABORATORY [place] [address] - [address] [facility] [address]
--- OUTSIDE RECORDS SUMMARY | 2023-05-03 07:34 | External Medical Summary | Summary of Care ---
Author Name Unknown Organization [facility] Address [address] [facility] [place] [address] Phone [phone] Care Team Providers Care Medication Technician Name Role Phone Britney Ko Collette MAHONEY Primary Care Provider Encounter Details Date Type Department Care Team Description 12/01/2022 Procedure Only Endoscopy, [facility] [address] [place] [address] Sachi Klein DO [address] [place] [address] Allergies Active Allergy Reactions Severity Noted Date Comments Sulfa Antibiotics 11/03/2016 Trimethoprim 04/14/1997 rash documented as of this encounter (statuses as of 12/13/2022) Medications Medication Sig Dispensed Refills Start Date [...] THE MORNING. 34 Tablet 5 02/23/2022 3 Active Ammonium Lactate 12 % External Lotion [...] EVERY MORNING 90 Tablet 3 10/27/2022 Active traZODone HCl 50 MG Oral Tablet (Desyrel) Take 1 Tablet by mouth at bedtime. 30 Tablet 3 09/01/2022 3 Discontinue d(Refill) Gabapentin 100 MG Oral Capsule (Neurontin) TAKE BY MOUTH 1 CAPSULE IN THE MORNING AND 1 CAPSULE AT NOON AND 1 CAPSULE BEFORE BEDTIME. 90 Capsule 0 10/26/2022 3 Discontinue d(Medicatio n List Clean Up) documented as of this encounter (statuses as of 12/13/2022) Active Problems Problem Noted Date Protein-calorie malnutrition [...] as of this encounter (statuses as of 12/13/2022) Resolved Problems Problem Noted Date Resolved Date Grief at loss of child 11/30/2021 3 Centrilobular emphysema 09/22/2021 02/24/20 22 Prediabetes 02/01/2021 11/03/2022 Overview: Per Prediabetes protocol COPD, severity to be determined 03/14/2017 09/30/2021 Overview: Per COPD GOLD Classification Radiation pneumonitis 09/26/2016 02/20/2019 Chronic atrial fibrillation 08/29/[address] 07/2016 Persistent atrial fibrillation 08/24/2016 1 Malignant [...] as of this encounter (statuses as of 12/13/2022) Immunizations Name Administration Dates Next Due COVID-19 mRNA, LNP-s, No Pre serve, 2-Dose Series ([facility]) 04/22/2021,08/25/2020,08/04/2020 Pneumococcal Conjugate Vacc, 13 Valent (Prevnar) [...] Day Cigarettes 1 44 Smokeless Tobacco: Never Comments:4/26/23 smokes abou t 1 pack a day - refused pamphlet [...] Encounters Date Type Specialty Care Team Description 12/14/2022 Appointment Radiology 12/14/2022 Office Visit Vascular Surgery Kel Dennis MD [address] [place] [address] 12/16/2022 Anticoagulation Pharmacy [facility] [address] [facility] [place] [address] 12/20/2022 Cardiac Studies Cardiac Studies 12/20/2022 Laboratory Laboratory [place], [facility] J[facility]vir [address] [facility] [place] [address] 12/21/2022 PulmDiagnostic Pulmonary Function [facility], Pft [facility] [place] [address] 02/15/2023 Cardiac Studies Cardiac Studies 02/27/2023 Telemedicine Pulmonary Lenin Ruth MD [address] [place] [address] Cart, Telemed Pulm Gw [address] [facility] [place] [address] 03/15/2023 Office Visit Family Medicine Britney Ko CRNP [address] [place] [address] 04/19/2023 Office Visit Cardiology Renetta Glynn PA-C [address] [place] [address] Scheduled Procedures Name Priority Associated Diagnoses Date/Ti [...] exists DISCUSS TOBACCO CESSATION (REFER TO SMARTSET #4781) 02/23/2023 02/23/2022 GFR 10/01/2023 09/30/2022, 07/22, 02/28/2022, Additional history exists Fecal Occult Blood Test 10/02/2023 10/01/2022 Mammogram 10/05/2023 10/04/2022, 10/21, 10/06/2020, Additional history exists O2 ASSESSMENT COMPLETED IN PAST YEAR FOR COPD 12/07/2023 12/06/2022 Albumin/Creatinine Ratio 01/02/2024 01/01/2021 DXA Scan 12/31/2025 12/31/2018, 04/21, 05/08/2003 DTaP,Tdap,and Td Vaccines (3 - Td or Tdap) 01/11/2027 01/11/2017, 01/30/2007, 07/14/1997 Colonoscopy 05/12/2027 12/01/2022, 04/22, 05/12/2017, Additional history exists Colorectal Cancer Screening 05/12/2027 Lipid Panel 10/01/2027 09/30/2022, 12/20, 09/30/2020, Additional [...] Procedure Name Priority Date/Time Associated Diagnosis Comments COLONOSCOPY 12/01/2022 documented in this encounter Results * COLONOSCOPY (12/01/2022) 12/01/2022 Sachi Klein DO GASTRO LOWER documented in this encounter Care Teams Medication Technician Relationship Specialty Start Date End Date Britney Ko CRNP [address] [place] [address] PCP - General Nurse Practitioner 09/22/21 documented as of this encounter
--- OUTSIDE RECORDS SUMMARY | 2023-05-03 07:34 | External Medical Summary | Summary of Care ---
Author Name Unknown Organization [facility] Address [address] [place] [address] Phone [phone] Care Team Providers Care Parts Processor Name Role Phone Britney Ko Collette MAHONEY Primary Care Provider Encounter Details Date Type Department Care Team Description 12/14/2022 Hospital Encounter Vascular Lab [place] [address] [place] [address] Arrived Allergies Active Allergy Reactions Severity Noted Date Comments Sulfa Antibiotics 11/03/2016 Trimethoprim 04/14/1997 rash documented as of this encounter (statuses as of 12/15/2022) Medications Medication Sig Dispensed Refills Start Date [...] 24 Hour (toPROL XL)Indications:Perma nent atrial fibrillation ([facility]),History of alcohol abuse,Tobacco abuse,HTN, goal below 140/90,Hyponatremia, Valvular heart disease,PAD (peripheral artery disease) ([facility]),Dyslipidemia, goal LDL below 70 TAKE [...] mgIndications:COPD, group B, by GOLD 2017 classification ([facility]) 2.5 mg NEBULIZER PRN 12/08/2022 12/08/2023 Acti ve Albuterol Sulfate (Proventil) (5 MG/ML) 0.5% *conc* inhalation solution 2.5 mgIndications:COPD, group B, by GOLD 2017 classification ([facility]) 2.5 mg NEBULIZER PRN 12/08/2022 12/08/2023 Acti ve documented as of this encounter (statuses as of 12/15/2022) Active Problems Problem Noted Date Protein-calorie malnutrition [...] as of this encounter (statuses as of 12/15/2022) Resolved Problems Problem Noted Date Resolved Date [...] as of this encounter (statuses as of 12/15/2022) Immunizations Name Administration Dates Next Due COVID-19 mRNA, LNP-s, No Pre serve, 2-Dose Series ([employer]) 04/22/2021,08/25/2020,08/04/2020 Pneumococcal Conjugate Vacc, 13 Valent (Prevnar) [...] Encounters Date Type Specialty Care Team Description 12/20/2022 Cardiac Studies Cardiac Studies 12/20/2022 Laboratory Laboratory [facility] [address] [place] [address] 12/21/2022 Imaging Radiology 12/21/2022 PulmDiagnostic Pulmonary Function West, Pft [address] [place] [address] 12/21/2022 Anticoagulation Pharmacy [facility] Jasvir [address] [place] [address] 02/15/2023 Cardiac Studies Cardiac Studies 02/27/2023 Telemedicine Pulmonary Lenin Ruth MD [address], [place] [id number] Cart, Telemed Pulm Gw [address] [place] [address] 03/15/2023 Office Visit Family Medicine Britney Ko CRNP [address] [place] [address] 04/19/2023 Office Visit Cardiology Renetta Glynn PA-C [address] [place] [address] Scheduled Procedures Name Priority Associated Diagnoses Date/Ti [...] Procedure Name Priority Date/Time Associated Diagnosis Comments VASC ANKLE BRACHIAL INDICES WITHOUT PPG (PAD) Routine 12/14/2022 12:25 PM EDT PAD (peripheral artery disease) (HCC) documented in this encounter Results * VASC ANKLE BRACHIAL INDICES WITHOUT PPG (PAD) (12/14/2022 12:25 PM EDT) Anatomical Region Laterality Modality Extremity, Ankle, Vascular, Lower Extremity, Onelia t Ultrasound Impressions 12/14/2022 2:52 PM EDT : MARGOTH is unable to be taken due to medial calcinosis. For the right lower extremity: Lower extremity Doppler Evaluation is consistent with severe arterial occlusive disease. Great toe pressure is 50. PPG tracing of the great toe has nearly flat amplitude. For the left lower extremity: Lower extremity Doppler Evaluation is consistent with severe arterial occlusive disease. Great toe pressure is 40. PPG tracing of the great toe has nearly flat amplitude. Narrative 12/14/2022 2:52 PM EDT VASCULAR LAB RESULTS DATE OF EXAMINATION: 12/14/22 INDICATION: pad, obtain toe pressures ANKLE BRACHIAL INDEX OF THE LOWER EXTREMITIES Immediately before proceeding with the vascular lab procedure reported below, the identity of the patient, the correct exam and the correct procedural site were identified. Continuous wave doppler and appropriate size pressure cuffs were utilized during the examination. Findings: The right and left brachial artery blood pressures are 202 mmHg and 200 mmHg respectively. On the right, The posterior tibial artery waveform is absent. . The right dorsalis pedis artery waveform is monophasic and has an amplitude which is decreased. The right peroneal artery waveform is monophasic and has an amplitude which is decreased. On the left, The posterior tibial artery waveform is monophasic and has an amplitude which is nearly flat. . The left dorsalis pedis artery waveform is monophasic and has an amplitude which is decreased. . The left peroneal artery waveform is monophasic and has an amplitude which is nearly flat. Marianne GONZALEZ VASCULTena Hou documented in this encounter Care Teams Parts Processor Relationship Specialty Start Date End Date Britney Ko CRNP [address] [facility] [place] [address] PCP - General Nurse Practitioner 09/22/21 documented as of this encounter
--- OUTSIDE RECORDS SUMMARY | 2023-05-03 07:34 | External Medical Summary | Summary of Care ---
Author Name Unknown Organization [facility] Address [address] [facility] [place] [address] Phone [phone] Care Team Providers Care Molding Cutter Name Role Phone Stefani Britneysa Collette MAHONEY Primary Care Provider Reason for Visit * Reason Onset Date Comments Nurse Documentation For BP check Blood Pressure Check 12/20/2022 Encounter Details Date Type Department Care Team Description 12/20/2022 Cardiac Studies Cardiac Studies, [facility] [address] [place] [address] [...] mgIndications:COPD, group B, by GOLD 2017 classification ([facility]) 2.5 mg NEBULIZER PRN 12/08/2022 12/08/2023 Acti ve Albuterol Sulfate (Proventil) (5 MG/ML) 0.5% *conc* inhalation solution 2.5 mgIndications:COPD, group B, by GOLD 2017 classification ([facility]) 2.5 mg NEBULIZER PRN 12/08/2022 12/08/2023 [...] mRNA, LNP-s, No Pre serve, 2-Dose Series ([employer]) 04/22/2021,08/25/2020,08/04/2020 Pneumococcal Conjugate Vacc, 13 Valent (Prevnar) [...] PulmDiagnostic Pulmonary Function West, Pft [address] [place] [address] 12/21/2022 Anticoagulation Pharmacy [facility] J[facility]vir [address] [place] [address] 02/15/2023 Cardiac Studies Cardiac Studies 02/27/2023 Telemedicine Pulmonary Lenin Ruth MD [address] [facility] [place] [address] Cart, Telemed Pulm Gw [address] [facility] [address] 03/15/2023 Office Visit Family Medicine Britney Ko CRNP [address] [place] [address] 04/19/2023 Office Visit Cardiology Renetta Glynn PA-C [address] [place] [address] Scheduled Orders Name Type Priority Associated Diagnoses [...] exists DISCUSS TOBACCO CESSATION (REFER TO SMARTSET #3740) 02/23/2023 02/23/2022 GFR 10/01/2023 09/30/2022, 07/22, 02/28/2022, [...] goal below 140/90- Primary Unspecified essential hypertension documented in this encounter Care Teams Molding Cutter Relationship Specialty Start Date End Date Britney Ko CRNP [address] [place] [address] PCP - General Nurse Practitioner 09/22/21 documented as of this encounter"
--- OUTSIDE RECORDS SUMMARY | 2023-05-03 07:35 | External Medical Summary | Summary of Care ---
Author Name Unknown Organization [facility] Address [address] [facility] [place] [address] Phone [phone] Care Team Providers Care Church Organist Name Role Phone rBitney Ko Collette MAHONEY Primary Care Provider Reason for Visit * Reason Comments Dosage Adjustment In Person (Anticoag Cl inic) Encounter Details Date Type Department Care Team Description 11/24/2022 Anticoagulation Pharmacy, [facility] 132 [facility] [place] [address] [facility] [address] [facility] [place] [address] Anticoagulation management encounter*; [facility] current use of anticoagulant therapy Allergies Active Allergy Reactions Severity Noted Date Comments Sulfa Antibiotics 11/03/2016 Trimethoprim 04/14/1997 rash documented as of this encounter (statuses as of 11/24/2022) Medications Medication Sig Dispensed Refills Start Date [...] Active Rosuvastatin Calcium 10 MG Oral Tablet (Crestor)Indication s:Dyslipidemia, goal LDL [...] every evening 30 Tablet 0 08/23/2022 Active traZODone HCl 50 MG Oral Tablet (Desyrel) Take 1 Tablet by mouth at bedtime. 30 Tablet 3 09/01/2022 Active Trelegy Ellipta 200-62.5-25 MCG/ACT Aerosol Powder Breath Activated (Fluticasone-Umecli dinium-Vilanterol) Inhale 1 Puff by mouth in the morning. 180 Blister Dosing Unit 3 09/01/2022 11/30/2022 Active Gabapentin 100 MG Oral Capsule (Neurontin) TAKE BY MOUTH 1 CAPSULE IN THE MORNING AND 1 CAPSULE AT NOON AND 1 CAPSULE BEFORE BEDTIME. 90 Capsule 0 10/26/2022 Active Metoprolol Succinate ER 50 MG Oral Tablet Extended Release 24 Hour (toPROL XL)Indications:Perm anent atrial fibrillation (HCC),History of alcohol abuse,Tobacco abuse,HTN, goal below 140/90,Hyponatremia ,Valvular heart disease,PAD (peripheral artery disease) (HCC),Dyslipidemia, goal LDL below 70 TAKE 1 TABLET EVERY MORNING 90 Tablet 3 10/27/2022 Active documented as of this encounter (statuses as of 11/24/2022) Active Problems Problem Noted Date Black tarry stools 09/30/2022 Chronic anticoagulation 09/30/2022 Chronic diastolic heart failure 02/24/20 22 Grief at loss of child 11/30/2021 Mild episode of recurrent major depressi ve [...] as of this encounter (statuses as of 11/24/2022) Resolved Problems Problem Noted Date Resolved Date Centrilobular emphysema 09/22/2021 02/24/20 22 Prediabetes 02/01/2021 [...] as of this encounter (statuses as of 11/24/2022) Immunizations Name Administration Dates Next Due COVID-19 mRNA, LNP-s, No Pre serve, 2-Dose Series (5 CUPS and some sugar) 04/22/2021,08/25/2020,08/04/2020 Pneumococcal Conjugate Vacc, 13 Valent (Prevnar) [...] Day Cigarettes 1 44 Smokeless Tobacco: Never Comments:09/14/22 smokes abou t 1 pack a day [...] this encounter Progress Notes * Gaby Andrea, [facility] - 11/24/2022 10:50 AM EDT Images from the original note were not included. Medication Therapy Disease Management - Anticoagulation Patient: Michelle Puente : 1955 Current Warfarin Dose As of 11/24/2022 Warfarin maintenance plan: 5 mg (10 mg x 0.5) every Tue; 10 mg (10 mg x 1) all other days Patient-Reported Symptoms: Patient Findings Positives: Upcoming invasive procedure (colonoscopy 12/01), Change in diet/appetite (pt ate excessive amout of cabbage) Negatives: Signs/symptoms of thrombosis, Signs/symptoms of bleeding, Change in health, Change in alcohol use, Change in activity, Missed doses, Extra doses, Change in medications, Bruising INR Result As of 11/24/2022 INR goal: 2.0-3.0 INR used for dosin.2 (11/24/2022) Warfarin Plan As of 11/24/2022 Full warfarin instructions: 11/24: 15 mg; 11/25: 15 mg; 11/26: Hold; 11/27: Hold; 11/28: Hold; 11/29: Hold; 11/30: Hold; 12/01: 15 mg; 12/02: 15 mg; Otherwise 5 mg every Tue; 10 mg all other days Next INR check: 12/16/2022 Additional Dosing Information: Patient is having a colonoscopy on 12/01. Diagosis for coumadin therapy is a.fib. No hx of recent DVT, PE, MVR, OR or CVA. CHADS2 score of 5. Patient will take their last dose of coumadin 11/25, then restart coumadin the evening of the procedure with 15 mg for 2 days, then resume previous dose. Repeatpt/inr 2 weeks after procedure. Repeat PT/INR in 3 week(s) Weekly dose: not changed Gaby Andrea [facility] Clinical Pharmacist 11/24/2022, 11:20 AM documented in this encounter Plan of Treatment Upcoming Encounters Date Type Specialty Care Team Description 12/01/2022 Procedure Only Endoscopy Sachi Klein, [address] [place] [address] 12/06/2022 Office Visit Cardiology Renetta Glynn PA-C [address] [place] [address] 12/06/2022 Office Visit Family Medicine Britney Ko CRNP [address] [place] [address] 12/14/2022 Appointment Radiology 12/14/2022 Office Visit Vascular Surgery Kel Dennis MD [address] [place] [address] 12/16/2022 Anticoagulation Pharmacy [facility] J[facility]vir [address] [place] [address] 12/21/2022 PulmDiagnostic Pulmonary Function West, Pft [address] [place] [address] 02/27/2023 Telemedicine Pulmonary Lenin Ruth MD [address] [place] [address] Cart, Telemed Pulm Gw [address] [place] [address] Scheduled Orders Name Type Priority Associated Diagnoses Orde r Schedule PT INR Lab Routine Anticoagulation management encounter [facility] current use of anticoagulant therapy 26 Occurrences starting 11/24/2022 until 11/24/2023 INR FINGERSTICK, POINT OF CARE Point of Care Testing - Unsolicited Results STAT Anticoagulation management encounter [facility] current use of anticoagulant therapy Every 2 Weeks for 26 Occurrences starting 11/24/2022 until 11/25/2023, 1 completed Scheduled Procedures Name Priority Associated Diagnoses Date/Ti me COLONOSCOPY FLEXIBLE PROXIMA L DIAGNOSTIC Recall Encounter for screening colonoscopy Health Maintenance Due Date Last Done Comments Cologuard 1998 Sigmoidoscopy 1998 COVID-19 Vaccine (4 - Booster for Pfizer series) 06/17/2021 04/22/2021, 08/25/2020, 08/04/2020 Depression Screening, Annual for Pts 12 and Over 12/28/2021 12/28/2020 Influenza Vaccine (FLU shot) (#1) 2023 03/06/2021, 01/23/2020, 02/20/2019, Additional history exists DISCUSS TOBACCO CESSATION (REFER TO SMARTSET #3291) 02/23/2023 02/23/2022 O2 ASSESSMENT COMPLETED IN PAST YEAR FOR COPD 08/27/2023 08/26/2022 GFR 10/01/2023 09/30/2022, 03/05/2022, 02/28/2022, Additional history exists Fecal Occult Blood Test 10/02/2023 10/01/2022 Mammogram 10/05/2023 10/04/2022, 10/21, 10/06/2020, Additional history exists Albumin/Creatinine Ratio 01/02/2024 01/01/2021 DXA Scan 12/31/2025 12/31/2018, 04/21, 05/08/2003 DTaP,Tdap,and Td Vaccines (3 - Td or Tdap) 01/11/2027 01/11/2017, 01/30/2007, 07/14/1997 Colonoscopy 05/12/2027 05/12/2017, 04/22, 02/26/2007 Colorectal Cancer Screening 05/12/2027 Lipid Panel 10/01/2027 [...] Comments INR FINGERSTICK, POINT OF CARE STAT 11/24/2022 11:01 AM EDT Anticoagulation management encounter 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 helper current use of anticoagulant therapy documented in this encounter Results * INR FINGERSTICK, POINT OF CARE (11/24/2022 11:01 AM EDT) Fingerstick INR 1.2 INR 11:02 AM EDT LAB[facility]ATORY [place] 57-10 Blood 11/24/2022 11:0 1 AM EDT 11/24/2022 11:02 AM EDT Narrative LABORATORY [place] 57-10 - 11/24/2022 11:02 AM EDT Therapeutic ranges for non-operative patients: Prophylaxsis/treatment of DVT: (Range:2.0-3.0) Treatment of pulmonary embolism:(Range:2.0-3.0) Prevention of systemic embolism from: -tissue heart valves -acute myocardial infarction -valvular heart disease -atrial fibrillation (Range: 2.0-3.0) Mechanical prosthetic valves: (Range: 2.5-3.5) Gaby Andrea [facility] LAB POINT OF C ARE TEST DOCKED DEVICE UNSOLICITED RESULTS LAB[facility] [place] 57-10 [address] [facility] [place] [address] documented in this encounter Visit Diagnoses Diagnosis Anticoagulation management encounter- Primary Encounter for therapeutic drug monitoring termite helper current use of anticoagulant therapy documented in this encounter Care Teams Church Organist Relationship Specialty Start Date End Date Britney Ko CRNP [address] [place] [address] PCP - General Nurse Practitioner 09/22/21 documented as of this encounter
--- OUTSIDE RECORDS SUMMARY | 2023-05-03 07:35 | External Medical Summary | Summary of Care ---
Author Name Unknown Organization [facility] Address [address] [facility] [place] [address] Phone [phone] Care Team Providers Care Mill Helper Name Role Phone Britney Ko Collette MAHONEY Primary Care Provider Reason for Visit * Reason Comments Left Message Encounter Details Date Type Department Care Team Description 11/21/2022 Anticoagulation Pharmacy, [facility] 132 [facility] [place] [address] [facility] 132 [facility] [place] [address] [facility] current use of anticoagulant therapy* Allergies Active Allergy Reactions Severity Noted Date Comments Sulfa Antibiotics 11/03/2016 Trimethoprim 04/14/1997 rash documented as of this encounter (statuses as of 11/21/2022) Medications Medication Sig Dispensed Refills Start Date [...] as of this encounter (statuses as of 11/21/2022) Active Problems Problem Noted Date Black tarry [...] as of this encounter (statuses as of 11/21/2022) Resolved Problems Problem Noted Date Resolved Date [...] as of this encounter (statuses as of 11/21/2022) Immunizations Name Administration Dates Next Due COVID-19 [...] as of this encounter Progress Notes * Damaris Norris CPhT - 11/21/2022 10:20 AM EDT Patient Phone Numbers Left message with family member to have patient call [facility] to r/s OFS Follow up in 2 weeks Thank you, Damaris Norris CPhT 11/21/2022 10:21 AM documented in this encounter Plan of Treatment Upcoming Encounters Date Type Specialty Care Team Description 12/01/2022 Procedure Only Endoscopy Sachi Klein DO [address] [place] [address] 12/05/2022 Anticoagulation Pharmacy [facility] J[facility] [address] [place] [address] 12/06/2022 Office Visit Cardiology Renetta Glynn PA-C [address] [place] [address] 12/06/2022 Office Visit Family Medicine Britney Ko CRNP [address] [place] [address] 12/14/2022 Appointment Radiology 12/14/2022 Office Visit Vascular Surgery Kel Dennis MD [address] [place] [address] 12/21/2022 PulmDiagnostic Pulmonary Function [place], Pft [address] [place] [address] 02/27/2023 Telemedicine Pulmonary Lenin Ruth MD [address] [place] [address] Cart, Telemed Pulm Gw [address] [place] [address] Scheduled Procedures Name Priority Associated Diagnoses Date/Ti [...] exists DISCUSS TOBACCO CESSATION (REFER TO SMARTSET #5658) 02/23/2023 02/23/2022 O2 ASSESSMENT COMPLETED IN PAST YEAR FOR COPD 08/27/2023 08/26/2022 GFR 10/01/2023 09/30/2022, 07/22, 02/28/2022, Additional history [...] as of this encounter Visit Diagnoses Diagnosis [facility] current use of anticoagulant therapy- Primary documented in this encounter Care Teams Mill Helper Relationship Specialty Start Date End Date Britney Ko CRNP [address] [place] [address] PCP - General Nurse Practitioner 09/22/21 documented as of this encounter
--- OUTSIDE RECORDS SUMMARY | 2023-05-03 07:35 | External Medical Summary | Summary of Care ---
Author Name Unknown Organization [facility] Address [address] [facility] [place] [address] Phone [phone] Care Team Providers Care Environmental Health Technician Name Role Phone NayaBritney britton Collette MAHONEY Primary Care Provider Encounter Details Date Type Department Care Team Description 11/17/2022 Orders Only Gastroenterology, [facility] [address] [place] [address] Sachi Klein DO [address] [place] [address] Blood in stool* Allergies Active Allergy Reactions Severity Noted Date Comments Sulfa Antibiotics 11/03/2016 Trimethoprim 04/14/1997 rash documented as of this encounter (statuses as of 11/17/2022) Medications Medication Sig Dispensed Refills Start Date [...] as of this encounter (statuses as of 11/17/2022) Active Problems Problem Noted Date Black tarry [...] as of this encounter (statuses as of 11/17/2022) Resolved Problems Problem Noted Date Resolved Date [...] as of this encounter (statuses as of 11/17/2022) Immunizations Name Administration Dates Next Due COVID-19 [...] Encounters Date Type Specialty Care Team Description 11/21/2022 Anticoagulation Pharmacy [place], [facility] [address] [place] [address] 12/01/2022 Procedure Only Endoscopy Sachi Klein DO [address] [place] [address] 12/06/2022 Office Visit Cardiology Renetta Glynn PA-C [address] [place] [address] 12/06/2022 Office Visit Family Medicine Britney Ko CRNP [address] [place] [address] 12/14/2022 Appointment Radiology 12/14/2022 Office Visit Vascular Surgery Kel Dennis MD [address] [place] [address] 12/21/2022 PulmDiagnostic Pulmonary Function [place], [facility]ft [address] [place] [address] 02/27/2023 Telemedicine Pulmonary Lenin Ruth MD [address] [place] [address] Cart, Telemed Pulm Gw [address] [place] [address] Scheduled Orders Name Type Priority Associated Diagnoses Orde r Schedule COLONOSCOPY, DIAGNOSTIC (RECTUM) Procedures Routine Blood in stool Ordered: 11/17/2022 Scheduled Procedures Name Priority Associated Diagnoses Date/Ti me COLONOSCOPY FLEXIBLE PROXIMA L DIAGNOSTIC Recall Encounter for screening colonoscopy Health Maintenance Due Date Last Done Comments Cologuard 1998 Sigmoidoscopy 1998 COVID-19 Vaccine (4 - Booster for Pfizer series) 06/17/2021 04/22/2021, 08/25/2020, 08/04/2020 Depression Screening, Annual for Pts 12 and Over 12/28/2021 12/28/2020 Influenza Vaccine (FLU shot) (Season Ended) 2023 03/06/2021, 01/23/2020, 02/20/2019, Additional history exists DISCUSS TOBACCO CESSATION (REFER TO SMARTSET #2699) 02/23/2023 02/23/2022 O2 ASSESSMENT COMPLETED IN PAST [...] as of this encounter Visit Diagnoses Diagnosis Blood in stool- Primary documented in this encounter Care Teams Environmental Health Technician Relationship Specialty Start Date End Date Britney Ko CRNP [address] [place] [address] PCP - General Nurse Practitioner 09/22/21 documented as of this encounter
--- OUTSIDE RECORDS SUMMARY | 2023-05-03 07:35 | External Medical Summary ---
Author Name Unknown Address Unknown Organization [id number] [place] [id number] Laboratory Report Ordering Provider Test Date Status WENDY,KATHRIN 11/24/2022 11:01:03 Final Therapeutic ranges for non-o perative patients:
Prophylaxsis/treatment of DVT: (Range:2.0-3.0)
Treatment of pulmonary embolism:(Range:2.0-3.0)
Prevention of systemic embolism from:
-tissue heart valves
-acute myocardial infarction
-valvular heart disease
-atrial fibrillation
(Range: 2.0-3.0)
Mechanical prosthetic valves: (Range: 2.5-3.5) Observation Date Value Abnormality Reference (Units ) Status INR in Capillary blood by Coagulation assay 11/24/2022 11:01:03 1.2 (INR) Final Performing Location [facility] [place] [id number]
--- OUTSIDE RECORDS SUMMARY | 2023-05-03 07:35 | External Medical Summary | Summary of Care ---
Author Name Unknown Organization [facility] Address [address] [facility] [place] [address] Phone [phone] Care Team Providers Care Imaging Administrator Name Role Phone Britney Ko Collette MARU Primary Care Provider Encounter Details Date Type Department Care Team Description 12/07/2022 Orders Only Pulmonary Medicine Casey Mar [address] [place] [id number] Brendan Whitney MD [address] [place] [address] COPD, group B, by GOLD 2017 classification ([facility])* Allergies Active Allergy Reactions Severity Noted Date Comments Sulfa Antibiotics 11/03/2016 Trimethoprim 04/14/1997 rash documented as of this encounter (statuses as of 12/08/2022) Medications Medication Sig Dispensed Refills Start Date [...] 24 Hour (toPROL XL)Indications:Perma nent atrial fibrillation ([facility]),History of alcohol abuse,Tobacco abuse,HTN, goal below 140/90,Hyponatremia, Valvular heart disease,PAD (peripheral artery disease) ([facility]),Dyslipidemia, goal LDL below 70 TAKE 1 TABLET EVERY MORNING 90 Tablet 3 10/27/2022 Active Losartan Potassium 25 MG Oral Tablet (Cozaar) Take 1 Tablet by mouth in the morning. 34 Tablet 11 12/06/2022 Active traZODone HCl 100 MG Oral Tablet (Desyrel) Take 1 Tablet by mouth at bedtime. 30 Tablet 3 12/06/2022 Active Hospital, Clinic, or Other Facility Administered Medication Ordered Dose Route Frequency Start Date End Date Status Albuterol Sulfate (Proventil) (2.5 MG/3ML) 0.083% inhalation solution 2.5 mgIndications:COPD, group B, by GOLD 2017 classification ([facility]) 2.5 mg NEBULIZER PRN 12/08/2022 12/08/2023 Acti ve Albuterol Sulfate (Proventil) (5 MG/ML) 0.5% *conc* inhalation solution 2.5 mgIndications:COPD, group B, by GOLD 2017 classification ([facility]) 2.5 mg NEBULIZER PRN 12/08/2022 12/08/2023 Acti ve documented as of this encounter (statuses as of 12/08/2022) Active Problems Problem Noted Date Protein-calorie malnutrition [...] as of this encounter (statuses as of 12/08/2022) Resolved Problems Problem Noted Date Resolved Date [...] as of this encounter (statuses as of 12/08/2022) Immunizations Name Administration Dates Next Due COVID-19 mRNA, LNP-s, No Pre serve, 2-Dose Series (Sofar Sounds) 04/22/2021,08/25/2020,08/04/2020 Pneumococcal Conjugate Vacc, 13 Valent (Prevnar) [...] Vascular Surgery Kel Dennis MD [address] [place] [address] 12/16/2022 Anticoagulation Pharmacy [facility] [address] [facility] [place] [address] 12/20/2022 Cardiac Studies Cardiac Studies 12/20/2022 Laboratory Laboratory [facility] [address] [facility] [place] [address] 12/21/2022 PulmDiagnostic Pulmonary Function [place], [facility] [address] [facility] [place] [address] 02/15/2023 Cardiac Studies Cardiac Studies 02/27/2023 Telemedicine Pulmonary Lenin Ruth MD [address] [place] [address] Cart, Telemed Pulm Gw [address] [address] 03/15/2023 Office Visit Family Medicine Britney Ko CRNP [address] [place] [address] 04/19/2023 Office Visit Cardiology Renetta Glynn PA-C [address] [place] [address] Scheduled Procedures Name Priority Associated Diagnoses Date/Ti [...] B, by GOLD 2017 classification (HCC)- Primary documented in this encounter Care Teams Imaging Administrator Relationship Specialty Start Date End Date Britney Ko CRNP [address] [place] [address] PCP - General Nurse Practitioner 09/22/21 documented as of this encounter
--- OUTSIDE RECORDS SUMMARY | 2023-05-03 07:35 | External Medical Summary | Summary of Care ---
Author Name Unknown Organization [facility] Address [address] [facility] [place] [facility] [place] [address] Phone [phone] Care Team Providers Care Child Psychologist Name Role Phone Britney Ko Primary Care Provider Reason for Referral * Precert (Within 10 days (routine)) - Pending Review Specialty Diagnoses / Procedures Referred By Marquita camargo Referred To Contact Cardiac Studies Diagnoses HTN, goal below 140/90 Dyslipidemia, goal LDL below 70 PAD (peripheral artery disease) (HCC) Chronic diastolic heart failure (HCC) Permanent atrial fibrillation (HCC) Procedures ECHO, COMPLETE (2D), TRANS-THORACIC Renetta Glynn PA-C [address] [place] [address] Referral ID Status Reason Start Date Expiration Date Visits Requested Visits Authorized [id number] Pending Review Precert 12/13/2022 [id number] Reason for Visit * Reason Comments Follow Up * Evaluate & Treat - Unlimited Visits (Within 30 days (routine)) - Pending Review Specialty Diagnoses / Procedures Referred By Marquita camargo Referred To Contact Cardiovascular Medicine / Cardiology Diagnoses Chronic atrial fibrillation (HCC) Chronic diastolic heart failure (HCC) Britney Ko CRNP [address] [place] [address] Referral ID Status Reason Start Date Expiration Date Visits Requested Visits Authorized [id number] Pending Review Specialty Services Required 09/01/[phone] Encounter Details Date Type Department Care Team Description 12/06/2022 Office Visit Cardiology, [facility] [address] [place] [address] Renetta Glynn PA-C [address] [place] [address] HTN, goal below 140/90*; Dyslipidemia, goal LDL below 70; PAD (peripheral artery disease) (HCC); Chronic diastolic heart failure (HCC); Permanent atrial fibrillation (HCC) Allergies Active Allergy Reactions Severity Noted Date Comments Sulfa Antibiotics 11/03/2016 Trimethoprim 04/14/1997 rash documented as of this encounter (statuses as of 12/06/2022) Medications Medication Sig Dispensed Refills Start Date [...] 34 Tablet 11 12/06/2022 Active traZODone HCl 50 MG Oral Tablet [...] as of this encounter (statuses as of 12/06/2022) Active Problems Problem Noted Date Protein-calorie malnutrition [...] as of this encounter (statuses as of 12/06/2022) Resolved Problems Problem Noted Date Resolved Date Grief at loss of child 11/30/2021 Centrilobular emphysema 09/22/2021 02/24/20 22 Prediabetes 02/01/2021 [...] as of this encounter (statuses as of 12/06/2022) Immunizations Name Administration Dates Next Due COVID-19 [...] Sign Reading Time Taken Comments Blood Pressure 138/92 12/06/2022 1:59 PM EDT Pulse 67 12/06/2022 1:59 PM EDT Temperature - - Respiratory Rate 18 12/06/2022 1:59 PM EDT Oxygen Saturation - - Inhaled Oxygen Concentration - - Weight 58.9 kg (129 lb 12.8 oz) 12/06/2022 1:59 PM EDT Height - - Body Mass Index 23.36 08/26/2022 2:26 PM EDT documented in this encounter Patient Instructions * Patient Instructions* Renetta Glynn PA-C - 12/06/2022 2:21 PM EDT Start losartan 25 mg - 1 tablet daily Monitor your blood pressure at home over the next several weeks. Sit quietly for 5-10 minutes before taking your blood pressure. Record the readings and bring them with you to a nurse blood pressure check as scheduled in several weeks. Also bring your home monitor. When you check your blood pressure at home, this should be at least 2 hours after your morning medications. Fasting blood work in 2 weeks Schedule echocardiogram documented in this encounter Progress Notes * Renetta Glynn PA-C - 12/06/2022 2:04 PM EDT 12/06/2022 Cardiology F/U: HPI: Patient is a 67-year-old female here today for routine cardiology follow- up. Last clinic evaluation approximately 1 year ago with Sachi MAHONEY. History includes: 1. Permanent atrial fibrillation/flutter, [id number] score of 4 (age, female, HTN, PAD), on coumadin 2. Moderate to severe MR 3. Moderate TR 4. Chronic alcohol abuse 5. Chronic tobacco abuse with underlying COPD- pulmonary hypertension a. Lung nodule stable since 2016 6. Persistent hyponatremia due to alcohol consumption 7. Hypertension 8. Dyslipidemia a. History of abnormal LFT's, likely alcohol induced 9. History of episodic bradycardia reported during hospitalization- outpatient workup unremarkable 10. History of small pericardial effusion 11. Essential tremor 12. History of breast cancer status post chemo and radiation 13. Chronic fatigue 14. Moderate PAD per MARGOTH 08/2021 Since last visit, patient was admitted to [facility] for hypertension. She reports blood pressure trended down without significant therapies and no med changes were made. Blood pressure remains borderline elevated today and at home. She notes intermittent headaches. No vision changes. She was to have updated echo last year but this was not completed. Patient was to increase Crestor per last lab instructions but never did. Otherwise she denies acute complaints. No chest pain, shortness of breath, palpitations, dizziness, syncope or near syncope. No orthopnea,PND, or increased lower extremity edema. No fever, chills, cough, hematochezia, melena, or hemoptysis. Review of Systems: See HPI for pertinent positives. All others negative, other than those noted in HPI. Patient Active Problem List Diagnosis Code Tobacco abuse Z72.0 PURE HYPERCHOLESTEROLEM E78.5 ADVANCE DIRECTIVE INFORMATION HTN, goal below 140/90 I10 Insomnia G47.00 Dyslipidemia, goal LDL below 130 E78.5 Encounter for smoking cessation counseling Z71.6 Depression with anxiety F41.8 Essential tremor G25.0 History of vertebral compression fracture Z87.81 History of alcohol abuse F10.11 History of pleural effusion Z87.09 PHT (pulmonary hypertension) ([facility]) I27.20 Lung nodules R91.8 History of colon polyps Z86.010 History of breast cancer Z85.3 Alcohol abuse F10.10 Non-rheumatic mitral regurgitation I34.0 Chronic atrial fibrillation ([facility]) I48.20 Alcohol abuse with alcohol-induced anxiety disorder ([facility]) F10.180 Unequal leg length M21.70 Pain in both feet M79.671, M79.672 Neuropathy G62.9 PAD (peripheral artery disease) ([facility]) I73.9 COPD, group B, by GOLD 2017 classification ([facility]) J44.9 Mild episode of recurrent major depressive disorder ([facility]) F33.0 CHENG (generalized anxiety disorder) F41.1 Chronic diastolic heart failure ([facility]) I50.32 Black tarry stools K92.1 Chronic anticoagulation Z79.01 Protein-calorie malnutrition ([facility]) E46 Social History Tobacco Use Smoking status: Every Day Packs/day: 1.00 Years: 44.00 Pack years: 44.00 Types: Cigarettes Smokeless tobacco: Never Tobacco comments: 09/14/22 smokes about 1 pack a day - refused pamphlet Vaping Use Vaping Use: Never used Substance Use Topics Alcohol use: Yes Comment: Last alcohol intake 08/09/22 Drug use: No Review of patient's allergies indicates: Allergen Reactions Sulfa Antibiotics Trimethoprim rash Current Outpatient Medications Medication Sig Dispense Refill [...] by mouth at bedtime. 30 Tablet 3 No current facility-administered medications for this visit. Physical Exam BP 138/92 | Pulse 67 | Resp 18 | Wt 58.9 kg (129 lb 12.8 oz) | LMP 09/20/1999 | BMI 23.36 kg/m | BSA 1.61 m Blood pressure my repeat 148/94 BP Readings from Last 4 Encounters: 12/06/22 144/90 12/06/22 138/92 09/30/22 142/90 09/14/22 149/71 General: No acute distress. A+Ox3. HEENT: Normocephalic. Atraumatic. Conjunctiva and sclera clear. NECK: No carotid bruits. No JVD. Carotid upstrokes are brisk. Heart: RRR. S1 and S2 noted without murmur, rubs, gallops. PMI non displaced. Lungs: Clear to auscultation. No wheezes, rhonchi, rales. Abdomen: Normal bowel sounds. Soft. Nontender. No masses or organomegaly. No abdominal bruits. Extremities: No edema. No clubbing or cyanosis. Pulses: radial=2/4, posterior tibial=2/4, dorsalis pedis = 2/4. NEURO: No focal deficits. PSYCH: Normal. Lab data/imaging study review: EKG performed today and reviewed personally: Atrial fibrillation Left ventricular hypertrophy Anterior infarct (cited on or before 30-MAR-2020) Abnormal ECG When compared with ECG of 08-OCT-2021 15:05, T wave inversion no longer evident in Anterior-lateral leads MARGOTH 09/09/2021: -For the right lower extremity: Lower extremity Doppler Evaluation is consistent with moderate arterial occlusive disease. Great toe pressure could not be insonated. PPG tracing of the great toe has decreased amplitude. -For the left lower extremity: Lower extremity Doppler Evaluation is consistent with moderate arterial occlusive disease. Great toe pressure could not be insonated. PPG tracing of the great toe has decreased amplitude. Echo 04/02/2021 The examination is adequate to evaluate the referral indication. There was atrial fibrillation during the examination. The qualitative LV ejection fraction is 55-59% (normal). The LV wall thickness is borderline increased (concentric). The left atrium is severely enlarged (>48 ml/m^2,). The right atrium is severely enlarged. The mitral valve leaflets thickness is mildly increased. The mitral valve leaflets are mildly calcified. There is mild systolic bowing of the anterior mitral valve leaflet. Moderate to severe mitral regurgitation with an eccentric posterior directed jet. Mild tricuspid regurgitation is present. The estimated pulmonary artery systolic pressure is 45-50mm Hg. Outpatient color television console monitor report reviewed dated June 23, 2020: CONCLUSIONS: Preliminary Findings Atrial Fibrillation occurred continuously (100% burden), ranging from 43- 118 bpm (avg of 67 bpm). Isolated VEs were rare (<1.0%), VE Couplets were rare (<1.0%), and no VE Triplets were present. Agree with the above interpretation findings. Outpatient color television console monitor report reviewed dated February 05, 2020: CONCLUSIONS: 1 run of Ventricular Tachycardia occurred lasting 7 beats with a max rate of 184 bpm (avg 177 bpm). Atrial Fibrillation occurred continuously (100% burden), ranging from 51-163 bpm (avg of 88 bpm). Isolated VEs were rare (<1.0%), VE Couplets were rare (<1.0%), and no VE Triplets were present. Final Interpretation : Agree with findings listed above. Symptoms correlated with atrial fibrillation and controlled ventricular response, atrial fibrillation with rapid ventricular response, and sensed ventricular ectopy. Echocardiogram report reviewed dated January 03, 2020 at [facility]: The LV is normal in size. Mild concentric LVH. LV wall motion is normal. Ejection fraction 60-65%. Left atrium is mildly dilated. Right atrium is mild to moderately dilated. Mitral valve leaflets are thickened and mildly calcified anterior greater than posterior with mild systolic bowing of the anterior leaflet. There is moderate or greater mitral insufficiency in an eccentric posterior directed jet. Mild TR. RV systolic pressure is elevated at 30 to 40 mmHg 24 hour Holter monitor report reviewed dated 04/09 1. Duration - 24 hours 2. Quality - diagnostic 3. Dominant rhythm - Atrial fibrillation with an average heart rate of 69 beats per minute, minimum heart rate 42 beats per minute, maximum heart rate 146 beats per minute. 4. PAC's - N/A 5. PVCs - Rare 6. Symptoms - no symptoms reported. 2D echocardiogram report reviewed dated November 23, 2018: Normal LV chamber size with mild concentric LVH. Normal LV systolic function with ejection fraction 65-70%. No segmental left ventricular wall motion abnormalities are noted. Left atrial enlargement suggests diastolic dysfunction is present. Aortic valve sclerosis mild without significant aortic valvular stenosis. Mitral valve leaflets appear thickened with borderline prolapse. Poor coaptation of mitral valve leaflets. Moderate tricuspid regurgitation without pulmonary hypertension. Severe bi atrial enlargement. GUANAKO report reviewed dated November 21, 2017 at [facility]: Conclusions The rhythm is atrial fibrillation. Ejection Fraction = 55 - 60%. The left atrium is severely dilated. No thrombus is detected in the left atrial appendage. The right atrium is severely dilated. The interatrial septum is intact with no evidence for an atrial septal defect. The anterior mitral valve leaflet is mildly thickened with borderline prolapse. There is moderate to severe mitral regurgitation. The mitral regurgitant jet is posteriorly directed, which is consistent with anterior leaflet pathology. There is mild tricuspid regurgitation. Doppler findings do not suggest pulmonary hypertension 2D echocardiogram report reviewed dated October 23, 2017: The examination is adequate to evaluate the referral indication. Atrial fibrillation with controlled ventricular response was present during the echocardiogram study. The LV wall thickness is normal. The left ventricular wall motion is normal. The qualitative LV ejection fraction is 5559% (normal). The left atrium is severely enlarged (>48 ml/m^2,). The right atrium is moderately enlarged. At least moderate mitral regurgitation is present. The mitral regurgitation jet is eccentric and impinges on the posterior portion of the left atrial wall. Moderate tricuspid regurgitation is present. Moderate pulmonary hypertension is present. The estimated pulmonary artery systolic pressure is 50 mm Hg. Compared to the prior study dated 04/27/2015, there has been an interval development of severe leftatrial enlargement. The right atrium is now enlarged to a moderate degree. The severity of the mitral regurgitation has progressed. There has been interval decline in left ventricular systolic function. Moderate pulmonary hypertension is not present. If clinically indicated, consider transesophageal echocardiogram for further quantification of the mitral regurgitation. Echocardiogram reviewed, dated 10/10/16 at [facility] and interpreted by Dr. Riggs: Conclusions -- No significant change compared to previous study of 09/16/16. Normal LV chamber size and wall thickness. Normal LV systolic function, EF 60-65%. No segmental left ventricular wall motion abnormalities are noted. Moderate to severe mitral annular calcifications. There is focal calcification of the tip of the anterior MV leaflet. There is mild mitral regurgitation. The mitral regurgitant jet is eccentrically directed. The mitral regurgitant jet is posteriorly directed, which is consistent with anterior leaflet pathology. Moderate tricuspid regurgitation. Severe bi atrial enlargement. No pericardial effusion Nuclear Stress test completed on 09/06/16 demonstrated, per report: Lexiscan nuclear cardiac stress test negative for ischemia. Gated SPECT images reveals normal myocardial thickening and wall motion. The LV ejection fraction is calculated at 74%. Atrial fibrillation with rapid ventricular response noted at rest and with stress. Latest Reference Range & Units 09/30/22 09:15 Triglycerides <=174 mg/dL 78 Cholesterol <200 mg/dL 165 Non-HDL Cholesterol <=159 mg/dL 93 HDL Cholesterol >49 mg/dL 72 LDL Cholesterol <=129 mg/dL 77 Sodium 135 - 146 mmol/L 134 (L) Potassium 3.5 - 5.1 mmol/L 3.9 Chloride 98 - 107 mmol/L 96 (L) CO2 22 - 32 mmol/L 23 BUN 6 - 20 mg/dL 3 (L) Creatinine 0.5 - 1.0 mg/dL 0.4 (L) Estimated Glomerular Filtration Rate >=60 mL/min >90 Anion Gap 7 - 15 mmol/L 15 Glucose 70 - 120 mg/dL 98 Calcium 8.4 - 10.2 mg/dL 9.7 Magnesium 1.5 - 2.6 mg/dL 1.5 Protein 6.0 - 8.3 g/dL 7.6 (L): Data is abnormally low Impression/Plan: 67 year old female 1. Permanent atrial fibrillation (HCC) Permanent atrial fibrillation/flutter, [id number] score of 4 (age, female, HTN, PAD), on coumadin. INRs have been very labile, unsure regarding medication compliance. . Due to Severe MR patient is not a candidate for DOAC 2. HTN, goal below 140/90 Uncontrolled Continue metoprolol Previously on losartan for many years and tolerated -resume losartan 25 mg - 1 tab daily -fasting labs in 2 weeks with nurse BP check 3. Valvular heart disease Moderate to severe MR with moderate TR per echo 03/2021. Elevated pulmonary pressures of 45-50 mmHgper last echo. Would avoid diuretic therapy to aid with pulm pressures/pulm hypertension due to electrolyte disturbances and chronic hyponatremia. 1. Repeat resting echo prior to follow up to reassess valvular heart disease and also LVEF due to etoh abuse. 4. PAD (peripheral artery disease) (HCC) Moderate peripheral arterial disease. Continue ASA and statin 5. Dyslipidemia, goal LDL below 70 Borderline control, LDL improved at 73. Liver function stable. 1. Continue rosuvastatin 10 mg daily -consider increasing dose 6. History of alcohol abuse 7. Hyponatremia Ongoing alcohol use. Hyponatremia likely due to etoh abuse. 8. Tobacco abuse Smoking cessation encouraged Patient Instructions 15. Start losartan 25 mg - 1 tablet daily 16. Monitor your blood pressure at home over the next several weeks. Sit quietly for 5-10 minutes before taking your blood pressure. Record the readings and bring them with you to a nurse blood pressure check as scheduled in several weeks. Also bring your home monitor. When you check your blood pressure at home, this should be at least 2 hours after your morning medications. 17. Fasting blood work in 2 weeks 18. Schedule echocardiogram I spent a total of 45 minutes on the date of service in preparation, delivery, and documentation ofthe care provided to Michelle Puente excluding any time spent in the performance of separately billed services. The patient agrees to the above plan and will call with additional questions or concerns. ER with all emergencies advised. Follow-up: Return in about 3 months (around 03/08/2023). | Check-out note: Print instructions Nurse BP check in 2 weeks Fasting blood work in about 2 weeks Schedule echocardiogram Renetta Glynn PA-C Department of Cardiology This chart was completed in part utilizing [employer] Speech Voice Recognition Software. Grammatical errors, random word insertions, prounoun errors, and incomplete sentences are an occasional consequence of this system due to software limitations, ambient noise, and hardware issues. Any formal questions or concerns about the content, text, or information contained within the body of this dictation should be directly addressed to the provider for clarification. documented in this encounter Procedure Notes * Aaron Valdez DO - 12/06/2022 2:00 PM EDTAssociated Order(s): EKG REASON FOR STUDY: HTN CONCLUSIONS: Atrial fibrillation Left ventricular hypertrophy Anterior infarct (cited on or before 30-MAR-2020) Abnormal ECG When compared with ECG of 08-OCT-2021 15:05, T wave inversion no longer evident in Anterior-lateral leads Ventricular Rate: 67 Atrial Rate: 117 QRS Duration: 90 QT/QTc: 396/418 ms P-R-T [place]: 0 : 39 : 67 degrees documented in this encounter Nursing Notes * Lyndsey Matute LPN - 12/06/2022 1:59 PM EDT Examination Room: 1 Name: Michelle Puente Date of : (1955) Reason for Visit: Follow up Interim Hospitalization(s): Denies Problems/Concerns: Denies Chest Pain/SOB: Denies My [facility] is a way you can talk to your provider online through e-mail. Would you like to sign up? I can activate it for you? ALREADY ACTIVE Patient was instructed to not get up on the exam table until directed and assisted by their provider; patient is to remain seated in the chair/ wheelchair/ exam table for fall prevention and safety reasons. Patient is aware to have assistance to step down off exam table with personnel. Patient voiced full comprehension of instructions. documented in this encounter Plan of Treatment Upcoming Encounters Date Type Specialty Care Team Description 12/14/2022 Appointment Radiology 12/14/2022 Office Visit Vascular Surgery Kel Dennis MD [address] [place] [address] 12/16/2022 Anticoagulation Pharmacy [facility] Jasvir [address] [place] [address] 12/20/2022 Cardiac Studies Cardiac Studies 12/20/2022 Laboratory Laboratory [facility] [address] [facility] [place] [address] 12/21/2022 PulmDiagnostic Pulmonary [facility] [place] [place] [address] 02/15/2023 Cardiac Studies Cardiac Studies 02/27/2023 Telemedicine Pulmonary Lenin Ruth MD [address] [place] [address] Cart, Telemed Pulm Gw [address] [place] [address] 03/15/2023 Office Visit Family Medicine Britney Ko CRNP [address] [place] [address] 04/19/2023 Office Visit Cardiology Renetta Glynn PA-C [address] [place] [address] Scheduled Orders Name Type Priority Associated Diagnoses Orde r Schedule COMPREHENSIVE METABOLIC PANEL Lab Routine HTN, goal below 140/90 Dyslipidemia, goal LDL below 70 PAD (peripheral artery disease) (HCC) Chronic diastolic heart failure (HCC) Permanent atrial fibrillation (HCC) Expected: 12/20/2022, Expires: 12/07/2023 LIPID PANEL WITH DIRECT LDL IF TG IS HIGH Lab Routine HTN, goal below 140/90 Dyslipidemia, goal LDL below 70 PAD (peripheral artery disease) (HCC) Chronic diastolic heart failure (HCC) Permanent atrial fibrillation (HCC) Expected: 12/20/2022, Expires: 12/07/2023 MAGNESIUM Lab Routine HTN, goal below 140/90 Dyslipidemia, goal LDL below 70 PAD (peripheral artery disease) (HCC) Chronic diastolic heart failure (HCC) Permanent atrial fibrillation (HCC) Expected: 12/20/2022, Expires: 12/07/2023 ECHO, COMPLETE (2D), TRANS-THORACIC Echocardiology Routine HTN, goal below 140/90 Dyslipidemia, goal LDL below 70 PAD (peripheral artery disease) (HCC) Chronic diastolic heart failure (HCC) Permanent atrial fibrillation (HCC) Expected: 12/13/2022 (Approximate), Expires: 12/07/2023 Scheduled Procedures Name Priority Associated Diagnoses Date/Ti [...] exists DISCUSS TOBACCO CESSATION (REFER TO SMARTSET #[id number]) 02/23/2023 02/23/2022 O2 ASSESSMENT COMPLETED IN PAST [...] Procedure Name Priority Date/Time Associated Diagnosis Comments MN ECG ROUTINE ECG W/LEAST 12 LDS W/I&R Routine 12/06/2022 2:00 PM EDT HTN, goal below 140/90 documented in this encounter Results * EKG (12/06/2022 2:00 PM EDT) 12/06/2022 2:00 PM EDT Procedure Note Aaron Valdez, - 12/06/2022 2:00 PM EDT REASON FOR STUDY: HTN CONCLUSIONS: Atrial fibrillation Left ventricular hypertrophy Anterior infarct (cited on or before 30-MAR-2020) Abnormal ECG When compared with ECG of 08-OCT-2021 15:05, T wave inversion no longer evident in Anterior-lateral leads Ventricular Rate: 67 Atrial Rate: 117 QRS Duration: 90 QT/QTc: 396/418 ms P-R-T [place]: 0 : 39 : 67 degrees Renetta Glynn PA-C EKG [facility] documented in this encounter Visit Diagnoses Diagnosis HTN, goal below 140/90- Primary Unspecified essential hypertension Dyslipidemia, goal LDL below 70 Other and unspecified hyperlipidemia PAD (peripheral artery disease) (HCC) Peripheral vascular disease, unspecified Chronic diastolic heart failure (HCC) Chronic diastolic heart failure Permanent atrial fibrillation (HCC) Atrial fibrillation documented in this encounter Care Teams Child Psychologist Relationship Specialty Start Date End Date Britney Ko CRNP [address] [place] [address] PCP - General Nurse Practitioner 09/22/21 documented as of this encounter"
--- OUTSIDE RECORDS SUMMARY | 2023-05-03 07:35 | External Medical Summary | Summary of Care ---
Author Name Unknown Organization [facility] Address [address] [facility] [place] [address] Phone [phone] Care Team Providers Care Environmental Aid Name Role Phone Britney Ko Primary Care Provider Reason for Visit * Reason Comments Re-Check 3 MONTH RETURN, ASKMickey URIBE FOR INCREASE IN DOSE OF TRAZEDONE Encounter Details Date Type Department Care Team Description 12/06/2022 Office Visit Family Practice [facility] [address] [place] [address] Britney Ko CRNP [address] [place] [address] COPD, group B, by GOLD 2017 classification ([facility])*; Tubular adenoma of colon; Insomnia, unspecified type; Tobacco abuse; Protein-calorie malnutrition, unspecified severity ([facility]); Alcohol abuse with alcohol-induced anxiety disorder ([facility]) Allergies Active Allergy Reactions Severity Noted Date [...] at bedtime. 30 Tablet 3 12/06/2022 Active traZODone HCl 50 MG Oral [...] mRNA, LNP-s, No Pre serve, 2-Dose Series (FFFavs) 04/22/2021,08/25/2020,08/04/2020 Pneumococcal Conjugate Vacc, 13 Valent (Prevnar) [...] Sign Reading Time Taken Comments Blood Pressure 144/90 12/06/2022 2:41 PM EDT Pulse 92 12/06/2022 2:41 PM EDT Temperature - - Respiratory Rate - - Oxygen Saturation 99% 12/06/2022 2:41 PM EDT Inhaled Oxygen Concentration - - Weight 58.3 kg (128 lb 7 oz) 12/06/2022 2:41 PM EDT Height - - Body Mass Index 23.12 08/26/2022 2:26 PM EDT documented in this encounter Progress Notes * MARU Xiao - 12/06/2022 2:48 PM EDT Follow up Family Medicine Visit CC: Chief Complaint Patient presents with Re-Check 3 MONTH RETURN, ASKING FOR INCREASE IN DOSE OF TRAZEDONE History of Present Illness: Michelle Puente is a 67 year old female presenting for 3 month follow up. She is feeling ok.. COPD: breathing has been stable. Still feeling sob with exertion. On trelegy. Does not use rescue . She is scheduled for pulm follow up on 02/27/2023. Cardia- denies chest pain. She saw cardiology today. B/p med was added for HTN- Losartan 25 mg. She is having trouble getting to sleep and staying alseep. She watches TV or reads. She had colonoscopy 2 days ago. No new rectal bleeding. Still on warfarin. Still smoking 1 ppd. She is drinking about 2-3 12 oz beers per week. Social History Socioeconomic History Marital status: Spouse [...] performed by Karine Gamez MD at OR [facility] BREAST BIOPSY Left 03/04/2015 Malignant neoplasm of left female breast (HCC)- US guided core biopsy of 2-3:00 of left breast revealed invasive carcinoma, NST, ER/WI-, Her-2 -, US guided core biopsy left axilla lymph node negativefor metastatic carcinoma BX LYMPH NODE DEEP AXIL Left 04/01/2015 BIOPSY LYMPH NODE DEEP AXILLARY OPEN performed by Karine Gamez MD at OR [facility] DELIVERY one delivery CHEMOTHERAPY Left 05/09/15-10/06/15 COLONOSCOPY W/ BIOPSY (RECTUM) 02/26/2007 hyperplastic repeat in 10 yrs COLONOSCOPY, DIAGNOSTIC (RECTUM) 05/12/2017 hyperplastic polyps, diverticulosis, repeat 10 yrs COLONOSCOPY, DIAGNOSTIC (RECTUM) 05/12/2017 COLONOSCOPY FLEXIBLE PROXIMAL DIAGNOSTIC performed by Al Rock MD at ENDOSCOPY [facility] EXC BREAST LESION RADMARK Right 11/04/2020 EXCISION OF BREAST LESION RADIOLOGICAL MARKER performed by Karine Gamez MD at OR [facility] IDENTIFY SENTINEL NODE, RADIOACTIVE TRACER Left 04/01/2015 INJECTION PROCEDURE FOR IDENTIFICATION SENTINEL NODE performed by Karine Gamez MD at OR [facility] INSERTION OF LENS PROSTHESIS Left 03/21/2018 INSERTION OF LENS PROSTHESIS Right 04/04/2018 LIGATE/CUT OVIDUCT(S) Tubal Ligation MAMMOGRAM BREAST NEEDLE BIOPSY CORE RIGHT Right 08/13/2020 site one benign MAMMOGRAM BREAST NEEDLE BIOPSY CORE RIGHT Right 08/13/2020 site 2 complex sclerosing lesion. MASTECTOMY, PARTIAL Left 04/01/2015 04/01/2015MASTECTOMY PARTIAL performed by Karine Gamez MD at OR [facility] OTHER 05/14/2015 placement of a-port tunneled central venous access catheter with port [facility] Dr. Cohen 05/14/2015 RADIATION THERAPY Left 11/10/15-12/28/15 TREAT TROCHANTERIC FRACTURE W/IMPLANT Right 11/24/2018 rt trochanteric nail Outpatient Medications Marked as Taking for the 12/06/22 encounter (Office Visit) with MARU Xiao Medication Sig Losartan Potassium 25 MG Oral Tablet (Cozaar) Take 1 Tablet by mouth in the morning. Metoprolol Succinate ER 50 MG Oral Tablet Extended Release 24 Hour (toPROL XL) TAKE 1 TABLET EVERY MORNING traZODone HCl 50 MG Oral Tablet (Desyrel) Take 1 Tablet by mouth at bedtime. Warfarin Sodium 10 MG Oral Tablet (Coumadin) take 1 tablet by mouth every evening Ammonium Lactate 12 % External Lotion Apply to both feet once daily. Dispense 3 400g tubes. Furosemide 20 MG Oral Tablet (Lasix) TAKE 1 TABLET BY MOUTH IN THE MORNING. Rosuvastatin Calcium 10 MG Oral Tablet (Crestor) TAKE 1 TABLET DAILY Jublia 10 % External Solution Magnesium Oxide [...] 4hours as needed for Shortness of Breath. Folic Acid 400 MCG Tablet Take 1 Tablet by mouth in the morning. Thiamine Mononitrate (VITAMIN B1) 100 MG TABS Take by mouth. Review of patient's allergies indicates: Allergen Reactions Sulfa Antibiotics Trimethoprim rash Most Recent Immunizations Administered Date(s) Administered COVID-19 mRNA, LNP-s, No Preserve, 2-Dose Series (FFFavs) 04/22/2021 Diptheria/Tetanus (Adult) 07/14/1997 Pneumococcal Conjugate Vacc, 13 Valent (Prevnar) 08/06/2018 Pneumococcal Conjugate Vaccine, 7 Valent 12/27/2011 Pneumococcal Polysaccharide PPV23 (Pneumovax) 01/23/2020 Seasonal Influenza, Quadrivalent, No Preserve, 6 Mons & Above, IM 03/06/2021 Seasonal Influenza, Quadrivalent, No Preserve, Adjuvanted, 65+ Yrs, IM 01/23/2020 Seasonal Influenza, Quadrivalent, No Preserve, IM 03/30/2016 Seasonal Influenza, Split, IIV3, With Preserve, Inj 03/22/2013 Seasonal Influenza, Trivalent, Adjuvanted, 65+ yrs 02/20/2019 TDAP (age 10 and older)(Boostrix) 01/11/2017 TDAP (age 11 and older)(Adacel) 01/30/2007 Varicella Zoster Vaccine (Adult) 04/12/2013 Zoster Vaccine Recombinant (Shingrix) 01/23/2020 Review of Systems: Review of Systems Constitutional: Negative for fatigue and fever. Respiratory: Positive for cough, shortness of breath and wheezing. Cardiovascular: Positive for palpitations and leg swelling. Negative for chest pain. Gastrointestinal: Negative for abdominal pain, blood in stool, constipation, diarrhea, nausea and vomiting. Skin: Positive for color change. Negative for rash. Neurological: Negative for dizziness and syncope. Physical Exam: BP 144/90 | Pulse 92 | Wt 58.3 kg (128 lb 7 oz) | LMP 09/20/1999 | SpO2 99% | BMI 23.12 kg/m | BSA 1.6 m Physical Exam Constitutional: Comments: lean HENT: Head: Normocephalic. Eyes: Pupils: Pupils are equal, round, and reactive to light. Cardiovascular: Rate and Rhythm: Normal rate. Rhythm irregular. Pulmonary: Effort: Pulmonary effort is normal. Breath sounds: Decreased breath sounds present. Musculoskeletal: Cervical back: Normal range of motion. Right lower leg: Edema present. Left lower leg: Edema present. Skin: Comments: Chronic skin changes related to PVD. No open wounds at present. Neurological: Mental Status: She is alert and oriented to person, place, and time. Psychiatric: Attention and Perception: Attention normal. Mood and Affect: Mood normal. Speech: Speech normal. Behavior: Behavior normal. Behavior is cooperative. Thought Content: Thought content normal. Cognition and Memory: Cognition and memory normal. Judgment: Judgment normal. Assessment and Plan: 1. COPD, group B, by GOLD 2017 classification (HCC) Stable Continue trelegy Continue albuterol prn - NOCTURNAL HOME OXIMETRY (OP) 2. Tubular adenoma of colon Noted on recent colonoscopy 3. Insomnia, unspecified type Chronic Increase trazodone to 100 mg - NOCTURNAL HOME OXIMETRY (OP) 4. Tobacco abuse Still smoking approx 1 ppd Declines cessation 5. Protein-calorie malnutrition, unspecified severity (HCC) Down 7 lbs She is eating regularly 6. Alcohol use Drinking less ETOH- 2-3 12 oz beers per week Feels mood is stable I have advised the patient to call our office incase of any worsening or new symptoms. I spent a total of 40-54 minutes (exact time 40 mins) on the date of service in preparation, delivery, and documentation of the care provided to Michelle Puente excluding any time spent in the performance of separately billed services. NEHEMIAH Ol[place], MARU [facility] documented in this encounter Plan of Treatment Upcoming Encounters Date Type Specialty Care Team Description 12/14/2022 Appointment Radiology 12/14/2022 Office Visit Vascular Surgery Kel Dennis MD [address] [place] [address] 12/16/2022 Anticoagulation Pharmacy [facility] [address] [facility] [place] [address] 12/20/2022 Cardiac Studies Cardiac Studies 12/20/2022 Laboratory Laboratory [facility] [address] [facility] [place] [address] 12/21/2022 PulmDiagnostic Pulmonary Function [place], [facility] [address] [address] 02/15/2023 Cardiac Studies Cardiac Studies 02/27/2023 Telemedicine Pulmonary Lenin Ruth MD [address] [place] [address] Cart, Telemed Pulm Gw [address] [facility] [address] 03/15/2023 Office Visit Family Medicine Britney Ko CRNP [address] [facility] [address] 04/19/2023 Office Visit Cardiology Renetta Glynn PA-C [address] [place] [address] Scheduled Orders Name Type Priority Associated Diagnoses Orde r Schedule NOCTURNAL HOME OXIMETRY (OP) Procedures Routine COPD, group B, by GOLD 2017 classification (HCC) Insomnia, unspecified type Ordered: 12/06/2022 Scheduled Procedures Name Priority Associated Diagnoses Date/Ti [...] exists DISCUSS TOBACCO CESSATION (REFER TO SMARTSET #2012) 02/23/2023 02/23/2022 O2 ASSESSMENT COMPLETED IN PAST [...] B, by GOLD 2017 classification (HCC)- Primary Tubular adenoma of colon Benign neoplasm of colon Insomnia, unspecified type Tobacco abuse Tobacco use disorder Protein-calorie malnutrition, unspecified severity (HCC) 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) Other specified drug-induced mental disorder documented in this encounter Care Teams Environmental Aid Relationship Specialty Start Date End Date Britney Ko CRNP [address] [place] [address] PCP - General Nurse Practitioner 09/22/21 documented as of this encounter"
--- OUTSIDE RECORDS SUMMARY | 2023-05-03 07:35 | External Medical Summary | Summary of Care ---
Author Name Unknown Organization [facility] Address [address] [facility] [place] [address] Phone [phone] Care Team Providers Care Hand Flesher Name Role Phone Britney Ko Collette MARU Primary Care Provider Encounter Details Date Type Department Care Team Description 12/01/2022 Result Scan Unspecified Department Sachi Klein, [address] [place] [address] <No scans attached> Allergies Active Allergy Reactions Severity Noted Date [...] of 12/08/2022) Active Problems Problem Noted Date Black tarry [...] mRNA, LNP-s, No Pre serve, 2-Dose Series (EntrenaYa) 04/22/2021,08/25/2020,08/04/2020 Pneumococcal Conjugate Vacc, 13 Valent (Prevnar) [...] Vascular Surgery Kel Dennis MD [address] [place] [address] 12/16/2022 Anticoagulation Pharmacy [facility] [address] [facility] [place] [address] 12/20/2022 Cardiac Studies Cardiac Studies 12/20/2022 Laboratory Laboratory [facility] [address] [facility] [place] [address] 12/21/2022 PulmDiagnostic Pulmonary Function West, Pft [address] [facility] [place] [address] 02/15/2023 Cardiac Studies Cardiac Studies 02/27/2023 Telemedicine Pulmonary Lenin Ruth MD [address] [place] [address] Cart, Telemed Pulm Gw [address] [address] 03/15/2023 Office Visit Family Medicine Britney Ko CRNP [address] [place] [address] 04/19/2023 Office Visit Cardiology Renetta Glynn PA-C [address] [place] [address] Scheduled Procedures Name Priority Associated Diagnoses Date/Ti [...] Procedure Name Priority Date/Time Associated Diagnosis Comments PATHOLOGY SCANNED RESULT 12/01/2022 documented in this encounter Results * PATHOLOGY SCANNED RESULT (12/01/2022) 12/01/2022 Sachi Klein DO PATHOLOGY documented in this encounter Care Teams Hand Flesher Relationship Specialty Start Date End Date Britney Ko CRNP [address] [place] [address] PCP - General Nurse Practitioner 09/22/21 documented as of this encounter
--- OUTSIDE RECORDS SUMMARY | 2023-05-03 07:35 | External Medical Summary | Summary of Care ---
Author Name Unknown Organization [facility] Address [address] [facility] [place] [address] Phone [phone] Care Team Providers Care Compliance Paralegal Name Role Phone Britney Ko Collette MARU Primary Care Provider Encounter Details Date Type Department Care Team Description 12/01/2022 Result Scan Unspecified Department Sachi Klein, [address] [place] [address] <No scans attached> Allergies Active Allergy Reactions Severity Noted Date Comments Sulfa Antibiotics 11/03/2016 Trimethoprim 04/14/1997 rash documented as of this encounter (statuses as of 12/05/2022) Medications Medication Sig Dispensed Refills Start Date [...] at bedtime. 30 Tablet 3 09/01/2022 Active Gabapentin 100 MG Oral Capsule (Neurontin) [...] as of this encounter (statuses as of 12/05/2022) Active Problems Problem Noted Date Black tarry [...] as of this encounter (statuses as of 12/05/2022) Resolved Problems Problem Noted Date Resolved Date [...] as of this encounter (statuses as of 12/05/2022) Immunizations Name Administration Dates Next Due COVID-19 mRNA, LNP-s, No Pre serve, 2-Dose Series ([place]) 04/22/2021,08/25/2020,08/04/2020 Pneumococcal Conjugate Vacc, 13 Valent (Prevnar) [...] Encounters Date Type Specialty Care Team Description 12/06/2022 Office Visit Cardiology Renetta Glynn PA-C [address] [place] [address] 12/06/2022 Office Visit Family Medicine Britney Ko CRNP [address] [place] [address] 12/14/2022 Appointment Radiology 12/14/2022 Office Visit Vascular Surgery Kel Dennis MD [address] [place] [address] 12/16/2022 Anticoagulation Pharmacy [facility] [address] [place] [address] 12/21/2022 PulmDiagnostic Pulmonary Function West, Pft [address] [facility] [place] [address] 02/27/2023 Telemedicine Pulmonary Lenin Ruth MD [address] [place], [place] [id number] Cart, Telemed Pulm Gw [address] [facility] [place] [address] Scheduled Procedures Name Priority Associated Diagnoses Date/Ti [...] exists DISCUSS TOBACCO CESSATION (REFER TO SMARTSET #2866) 02/23/2023 02/23/2022 O2 ASSESSMENT COMPLETED IN PAST [...] PATHOLOGY documented in this encounter Care Teams Compliance Paralegal Relationship Specialty Start Date End Date Britney Ko CRNP [address] [place] [address] PCP - General Nurse Practitioner 09/22/21 documented as of this encounter
--- NOTE | 2023-05-03 08:09 | Nephrology Consultation ---
Date of Consultation May 03, 2023 Assessment & Plan (1) Hyponatremia: chronic hyponatremia; presented with sNa 122 05/02 at 1900 and a recent fall w/o other sx/complications. sNa improved to 128 by 11 AM w/ gentle fluid repletion >recheck bmp now -cont NS for now -goal sNa is no more than 128 this evening Care coordinated with Dr Morfin. If repeat Na is > 130, stop NS, start D5W same rate If repeat Na is 126-130, stop NS with no fluid limit If repeat Na is <126 stop NS, start fluid limit 1.2 L daily, and give 10 mg IV lasix x 1 With all of above supplement K to keep at about 4 History of Present Illness Reason for Consultation: hyponatremia Requesting Physician: Dr Alvarado Attending Physician: Chiara Morfin MD History of Present Illness 68 y/o F whom I'm asked to see for hyponatremia was sent to [facility] for admission after OP labs showed sNa 123. PMH includes active EtOH abuse, HFpEF, chronic atrial fibrillation, COPD, lung nodules, pulmonary hypertension, peripheral artery disease, protein calorie malnutrition, essential tremor, active tobacco abuse, history of breast cancer, depression/general anxiety disorder, HL. Also w/ chronic hyponatremia w/ sNa 134 frequently though this fall was 129. No OP diuretic use. Pt tells me that prior to admission she felt at baseline w/o edema, nausea /vomiting, malaise, acute illness, worsening dyspnea or decreased po. she did note however that she fell prior to admission and has had some back pain after the fall. She treated this pain w/ tylenol. denies nsaid use. in the ER, pt had 1/2 L NS; then was started on 50 ml/hr NS. SNa was 122 on presentation last evening 0; up to 128 by 11 am. Allergies Allergy/AdvReac Type Severity Reaction Status Date / Time Sulfa (Sulfonamide Allergy Intermediate Rash Verified 05/02/23 20:04 Antibiotics) trimethoprim Allergy Intermediate Rash Verified 05/02/23 20:04 Home Medications Medication Instructions Recorded Confirmed Type folic acid 400 mcg tablet 0.4 mg PO DAILY 01/02/20 05/02/23 History thiamine HCl (vitamin B1) 100 mg 100 mg PO QAM 01/02/20 05/02/23 History tablet (Vitamin B-1) ammonium lactate 12 % lotion 1 applic topical DAILY 03/21/23 12/12/23 History rosuvastatin 10 mg tablet 10 mg PO QAM 08/09/22 05/02/23 History acetaminophen 500 mg tablet 500 mg PO DIRECTED PRN Pain 05/02/23 05/02/23 History (Tylenol Extra Strength) albuterol sulfate 2.5 mg/3 mL 2.5 mg inhalation DIRECTED PRN 05/02/23 05/02/23 History (0.083 %) solution for nebulization NEEDED fluticasone fur. 100 mcg-umeclid 1 inh inhalation DAILY 05/02/23 05/02/23 History 62.5 mcg-vilant 25 mcg inhalat.powder (Trelegy Ellipta) lidocaine 5 % topical patch 1 patch topical DAILY PRN Pain 05/02/23 05/02/23 History losartan 25 mg tablet 25 mg PO QAM 05/02/23 05/02/23 History magnesium oxide 200 mg PO DAILY 05/02/23 05/02/23 History metoprolol succinate 50 mg 50 mg PO QAM 05/02/23 05/02/23 History tablet,extended release 24 hr trazodone 100 mg tablet 100 mg PO HS 05/02/23 05/02/23 History warfarin 10 mg tablet See Rx Instructions .Route .COMPLEX 05/02/23 05/02/23 History Patient History Medical History (Updated 05/03/23 @ 15:00 by Day Lopez MD) Seizures On anticoagulant therapy warfarin daily Chronic diastolic (congestive) heart failure Hypomagnesemia Hyponatremia chronically low. Liver enzyme elevation Cancer LEFT BREAST (CHEMO AND RADIATION) Anemia Migraine Left ventricular enlargement BEING MONITORED BY ASHLY DUMONT Hypertension Chronic obstructive pulmonary disease Afib on warfarin/metoprolol---follows with Dr. Valdez Tobacco use disorder Surgical History History of bilateral cataract extraction History of surgery right femur fx repair 11/24/18 @ [facility] Hx of shoulder surgery RT SHOULDER (S/P FX) History of section X1 History of colonoscopy History of partial mastectomy LEFT History of tooth extraction Family History Other Cancer Heart disease No family history of adverse response to anesthesia Social History Smoking Status: Current every day smoker Tobacco Type: Cigarettes and E-cigarettes / Vaping Cigarettes Per Day: 20 (advised); Second Hand Exposure: Yes; Do You Dip or Chew Tobacco: No; Hx Alcohol Use: Yes Alcohol type: beer Alcohol Intake Frequency: 4 or More x per/Week Hx Substance Use: No Preferred Language: Albanian Communication Ability: Effective Group Leader [employer] Required: No Beliefs That Will Affect Care: None marital status: Current Living Situation: Spouse How many Children do You have: 3 Feels Safe at Home: Yes Assistive Devices: None Review of Systems 2 Review of Systems: All systems reviewed & are unremarkable except as noted in HPI & below Physical Exam 2 Constitutional: well developed, well nourished and + thin (and small framed); no acute distress Eyes: EOM intact bilaterally ENMT: Ears: no external ear abnormality Nose: no external nose abnormality Mouth: + dry oral mucous membranes Neck: no nuchal rigidity Respiratory: normal respiratory effort Auscultation: + diminished lung sounds and + rhonchi Cardiovascular: Rate/Rhythm: + irregularly irregular Extremities: no edema Gastrointestinal (Abdomen): Inspection/Auscultation: normal bowel sounds P ercussion/Palpation: abdomen soft; abdomen nontender Musculoskeletal: Extremities: strength 5/5 throughout Skin: no rashes, warm and dry Neurologic: hernández, fluent speech, no tremor Psychiatric: Orientation: alert and oriented x 3 Results & Data Vital Signs (Past 12 Hours) Vital Signs Temp Pulse Pulse Resp BP BP BP 05/03/23 07:41 36.9 C 85 18 119/67 05/03/23 04:16 37.3 C 84 18 133/76 05/03/23 00:36 37.1 C 74 20 103/61 05/02/23 23:48 05/02/23 23:00 87 05/02/23 21:40 37.2 C 100 H 18 154/93 H 05/02/23 21:00 86 22 128/77 05/02/23 20:30 92 H 31 H 151/84 H Pulse Ox O2 Del Method 05/03/23 07:41 93 Room Air 05/03/23 04:16 94 Room Air 05/03/23 00:36 94 Room Air 05/02/23 23:48 Room Air 05/02/23 23:00 05/02/23 21:40 98 Room Air 05/02/23 21:00 100 Room Air 05/02/23 20:30 98 Room Air Laboratory Results 05/03/23 05:19 05/03/23 05:19
--- OUTSIDE RECORDS SUMMARY | 2023-05-03 08:43 | External Medical Summary | Summary of Care ---
Author Name Unknown Organization [facility] Address [address] [place] [address] Phone [phone] Care Team Providers Care Investment Accounting Clerk Name Role Phone Nayareba Britney MAHONEY Primary Care Provider Reason for Visit * Reason Comments Outpatient Testing Encounter Details Date Type Department Care Team (Latest Contact Info) Description 05/02/2023 2:30 PM EST Laboratory Laboratory, [facility] [address] [place] [id number] [facility] [address] Anticoagulation management encounter; halfway current use of anticoagulant therapy; Hyponatremia; Abnormal echocardiogram Allergies Active Allergy Reactions Criticality Noted Date Comments Sulfa Antibiotics 11/03/2016 Trimethoprim 04/14/1997 rash documented as of this encounter (statuses as of 05/02/2023) Medications Medication Sig Dispensed Refills Start Date [...] package directions 21 Tablet 0 03/01/2023 Active Additional Information Patient not taking.Reported on 05/02/2023 Lidocaine 5 % External Patch (Lidoderm)Indication s:Compression [...] 24 Hour (toPROL XL)Indications:Perma nent atrial fibrillation ([facility]),History of alcohol abuse,Tobacco abuse,HTN, goal below [...] mgIndications:COPD, group B, by GOLD 2017 classification ([facility]) 2.5 mg NEBULIZER PRN 12/08/2022 12/08/2023 Acti ve Albuterol Sulfate (Proventil) (5 MG/ML) 0.5% *conc* inhalation solution 2.5 mgIndications:COPD, group B, by GOLD 2017 classification ([facility]) 2.5 mg NEBULIZER PRN 12/08/2022 12/08/2023 Acti ve documented as of this encounter (statuses as of 05/02/2023) Active Problems Problem Noted Date Diagnosed Date [...] as of this encounter (statuses as of 05/02/2023) Resolved Problems Problem Noted Date Diagnosed Date [...] as of this encounter (statuses as of 05/02/2023) Immunizations Name Administration Dates Next Due COVID-19 mRNA, LNP-s, No Pre serve, 2-Dose Series (NetStreams) 04/22/2021,08/25/2020,08/04/2020 Pneumococcal Conjugate Vacc, 13 Valent (Prevnar) 08/06/2018 Pneumococcal Conjugate Vaccine, 7 Valent 012 Pneumococcal Polysaccharide PPV23 (Pneumovax) 01/23/2020,12/27/2011 Season Influenza, Quad, PF, Adjuvanted, 65+ Yrs, IM (FLUAD) 01/23/2020 Seasonal Influenza, PF, 6 M & above, IM , (FluLaval or Fluzone) 03/06/2021,02/20/2018 Seasonal Influenza, Quadriva lent Hd (Fluzone Hd) [...] Department Care Team (Latest Contact Info) Description 05/02/2023 3:15 PM EST Cardiac Studies Cardiac Studies, [address] [place] [address] Chronic atrial fibrillation (HCC)*; HTN, goal below 140/90; Bradycardia; Near syncope 05/24/2023 1:00 PM EST Imaging Vascular Lab, [facility] II 2nd Floor, [address] [place] [address] 06/07/2023 2:10 PM EST Office Visit Vascular Surgery, [address] [place] [address] Killian Gan MD [address] [place] [address] 10/24/2023 3:00 PM EDT Office Visit Rheumatology [place] [id number] [facility] [place] [address] Kayla Jerome CRNP [facility] [place] [address] 11/10/2023 10:00 AM EDT Office Visit Cardiology, [address] [place] [address] Renetta Glynn PA-C [address] [place] [address] Pending Results Name Type Priority Associated Diagnoses Date /Time PT INR Lab Routine Anticoagulation management encounter joint terminal attack controller current use of anticoagulant therapy 05/02/2023 2:24 PM EST CULTURE, BLOOD Lab Routine Abnormal echocardiogram 05/02/2023 2:24 PM EST CULTURE, BLOOD Lab Routine Abnormal echocardiogram 05/02/2023 2:24 PM EST COMPREHENSIVE METABOLIC PANEL Lab Routine Hyponatremia Abnormal echocardiogram 05/02/2023 2:24 PM EST MAGNESIUM Lab Routine Abnormal echocardiogram 05/02/2023 2:24 PM EST Scheduled Procedures Name Priority Associated Diagnoses Date/Ti [...] Procedure Name Priority Date/Time Associated Diagnosis Comments CBC Routine 05/02/2023 2:24 PM EST Abnormal echocardiogram documented in this encounter Results * CBC (05/02/2023 2:24 PM EST) WBC 6.33 4.00 - 10.80 K/uL 05/02/2023 2:41 PM EST [facility] [place] [facility] RBC 4.33 3.85 - 5.15 M/uL 05/02/2023 2:41 PM EST [facility] [place] [facility]10 HGB 14.5 12.0 - 15.3 g/dL 05/02/2023 2:41 PM EST [facility] [place] [facility] HCT 41.2 36.0 - 45.2 % 05/02/2023 2:41 PM EST [facility] [place] [facility] MCV 95.2 81.5 - 97.5 fL 05/02/2023 2:41 PM EST [facility] [place] [facility] MCH 33.5 27.0 - 34.0 pg 05/02/2023 2:41 PM EST [facility] [place] [facility] MCHC 35.2 32.0 - 36.0 g/dL 05/02/2023 2:41 PM EST [facility] [place] [facility] RDW 14.4 11.5 - 15.5 % 05/02/2023 2:41 PM EST [facility] [place] [facility] PLT 174 140 - 400 K/uL 05/02/2023 2:41 PM EST [facility] [place] [facility] MPV 9.5 6.6 - 11.1 fL 05/02/2023 2:41 PM EST [facility] [place] [facility] Blood Venous blood specimen / Unknown Venipuncture / Unknown 05/02/2023 2:24 PM EST 05/02/2023 2:24 PM EST Renetta Glynn PA-C [facility] Organization Address City/State/ZIP Co de Phone Number [facility] [phone] [place] [phone] documented in this encounter Visit Diagnoses Diagnosis Chronic atrial fibrillation (HCC)- Primary Atrial fibrillation HTN, goal below 140/90 Unspecified essential hypertension Bradycardia Other specified cardiac dysrhythmias Near syncope Syncope and collapse Anticoagulation management encounter Encounter for therapeutic drug monitoring joint terminal attack controller current use of anticoagulant therapy Hyponatremia Hyposmolality and/or hyponatremia Abnormal echocardiogram Nonspecific (abnormal) findings on radiological and other examination of other intrathoracic organs documented in this encounter Care Teams Investment Accounting Clerk Relationship Specialty Start Date End Date Britney Ko CRNP [address] [place] [address] PCP - General Nurse Practitioner 09/22/21 documented as of this encounter
[2023-05-03] MEDS ORDERED: NON-FORMULARY MEDICATION (Fluticasone-Umeclidin-Vilanter [Trelegy Ellipta] 100-62.5-25 mcg INH SCH (09:00)
[2023-05-03] MEDS ORDERED: LOSARTAN POTASSIUM 25 MG TAB PO SCH (09:00)
[2023-05-03] MEDS: ROSUVASTATIN CALCIUM 10 MG TAB PO SCH (09:14)
[2023-05-03] MEDS: THIAMINE HCL 100 MG TAB PO SCH (09:14)
[2023-05-03] MEDS: FOLIC ACID 400 MCG TAB PO SCH (09:15)
[2023-05-03] MEDS: MAGNESIUM OXIDE 400 MG TAB PO SCH (09:15)
[2023-05-03] MEDS: METOPROLOL SUCC 50MG EXT REL TAB PO SCH (09:16)
[2023-05-03] MEDS: FLUTICASONE FUROATE 100MCG 14 PUFFS/INHALER INH SCH (09:16)
[2023-05-03] MEDS: UMECLIDINIUM/VILANTEROL 62.5/25MCG 7 PUFFS/INHALER INH SCH (09:17)
[2023-05-03] MEDS: AMMONIUM LACTATE 12% LOTION 225 GM BTL EXT SCH (09:17)
[2023-05-03 11:36] LABS: BUN Creatinine Ratio 15.9 (10-20); Calcium 8.9 mg/dl (8.6-10.3); Creatinine Clr Calc Pharmacy 94.1 ml/min; Est GFR (African American) 118.5 ml/min; Est GFR (Non-African American) 102.3 ml/min; Potassium 3.5 mmol/L (3.5-5.1)
--- NOTE | 2023-05-03 12:38 | Electroencephalogram ---
EEG Procedure Note Date of Service May 03, 2023 Start / End Times Start Time: 06:12 End Time: 06:32 Referring Physician Efrain Alvarado MD History A 68 year old female with seizure. EEG performed for evaluation of epileptiform activity. Home Medication List Medication Instructions Recorded Confirmed Type folic acid 400 mcg tablet 0.4 mg PO DAILY 01/02/20 05/02/23 History thiamine HCl (vitamin B1) 100 mg 100 mg PO QAM 01/02/20 05/02/23 History tablet (Vitamin B-1) ammonium lactate 12 % lotion 1 applic topical DAILY 08/09/22 05/02/23 History rosuvastatin 10 mg tablet 10 mg PO QAM 08/09/22 05/02/23 History acetaminophen 500 mg tablet 500 mg PO DIRECTED PRN Pain 05/02/23 05/02/23 History (Tylenol Extra Strength) albuterol sulfate 2.5 mg/3 mL 2.5 mg inhalation DIRECTED PRN 05/02/23 05/02/23 History (0.083 %) solution for nebulization NEEDED fluticasone fur. 100 mcg-umeclid 1 inh inhalation DAILY 05/02/23 05/02/23 History 62.5 mcg-vilant 25 mcg inhalat.powder (Trelegy Ellipta) lidocaine 5 % topical patch 1 patch topical DAILY PRN Pain 05/02/23 05/02/23 History losartan 25 mg tablet 25 mg PO QAM 05/02/23 05/02/23 History magnesium oxide 200 mg PO DAILY 05/02/23 05/02/23 History metoprolol succinate 50 mg 50 mg PO QAM 05/02/23 05/02/23 History tablet,extended release 24 hr trazodone 100 mg tablet 100 mg PO HS 05/02/23 05/02/23 History warfarin 10 mg tablet See Rx Instructions .Route .COMPLEX 05/02/23 05/02/23 History Inpatient Medication List Fluticasone Furoate (Fluticasone Furoate 100mcg 14 Puffs/Inhaler) 1 puffs INH DAILY [facility] Stop: 06/02/23 08:59 Last Admin: 05/03/23 09:16 Dose: 1 puffs Documented By: OO Folic Acid (Folic Acid 400 Mcg Tab) 400 mcg PO DAILY [facility] Stop: 06/02/23 08:59 Last Admin: 05/03/23 09:15 Dose: 400 mcg Documented By: SY Heparin Sodium (Porcine) (Heparin Sod 5,000 Unit/0.5 Ml Vial) 5,000 units SQ Q8 [facility] Stop: 06/01/23 21:59 Last Admin: 05/03/23 05:44 Dose: 5,000 units Documented By: Admin: 05/02/23 22:17 Dose: 5,000 units Documented By: WILFREDO Sodium Chloride (Nss) 1,000 mls @ 50 mls/hr IV .Q20H [facility] Stop: 06/01/23 21:37 Last Admin: 05/02/23 22:10 Dose: 50 mls/hr Documented By: WILFREDO Lactic Acid (Ammonium Lactate 12% Lotion 225 Gm Btl) 1 gm EXT DAILY [facility] Stop: 06/02/23 08:59 Last Admin: 05/03/23 09:17 Dose: 1 gm Documented By: SY Losartan Potassium (Losartan Potassium 25 Mg Tab) 25 mg PO QAM [facility] Stop: 06/02/23 08:59 Last Admin: 05/03/23 09:15 Dose: 25 mg Documented By: SY Magnesium Oxide (Magnesium Oxide 400 Mg Tab) 200 mg PO DAILY [facility] Stop: 06/02/23 08:59 Last Admin: 05/03/23 09:15 Dose: 200 mg Documented By: SY Metoprolol Succinate (Metoprolol Succ 50mg Ext Rel Tab) 50 mg PO QAM [facility] Stop: 06/02/23 08:59 Last Admin: 05/03/23 09:16 Dose: 50 mg Documented By: SY Miscellaneous (Remove Lidoderm Patch) 1 each N/A DAILY@2100 [facility] Stop: 06/01/23 21:37 Last Admin: 05/02/23 22:46 Dose: Not Given Documented By: WILFREDO Rosuvastatin Calcium (Rosuvastatin Calcium 10 Mg Tab) [facility] [facility] Stop: 06/02/23 08:59 Last Admin: 05/03/23 09:14 Dose: 10 mg Documented By: SY Thiamine HCl (Thiamine Hcl 100 Mg Tab) 100 mg PO QAM [facility] Stop: 06/02/23 08:59 Last Admin: 05/03/23 09:14 Dose: 100 mg Documented By: SY Trazodone HCl (Trazodone Hcl 100 Mg Tab) 100 mg PO [facility] Stop: 06/01/23 21:37 Last Admin: 05/02/23 22:20 Dose: 100 mg Documented By: WILFREDO Umeclidinium/Vilanterol (Umeclidinium/Vilanterol 62.5/25mcg 7 Puffs/Inhaler) 1 puffs INH DAILY [facility] Stop: 06/02/23 08:59 Last Admin: 05/03/23 09:17 Dose: 1 puffs Documented By: SY Warfarin Sodium (Warfarin Sod 5 Mg Tab) 5 mg PO Tu@1600 [facility] Stop: 06/01/23 21:59 Last Admin: 05/02/23 22:47 Dose: Not Given Documented By: WILFREDO Discontinued Medications Gabapentin (Gabapentin 600 Mg Tab) 600 mg PO Q6H [facility] Stop: 05/03/23 08:46 Last Admin: 05/03/23 09:13 Dose: 600 mg Documented By: Admin: 05/03/23 03:06 Dose: 600 mg Documented By: WILFREDO Gabapentin (Gabapentin 600 Mg Tab) 1,200 mg PO NOW ONE Stop: 05/02/23 21:39 Last Admin: 05/02/23 22:16 Dose: 1,200 mg Documented By: WILFREDO Sodium Chloride (Nss) 500 mls @ 80 mls/hr IV .Q6H15M [facility] Stop: 06/01/23 19:29 Last Infusion: 05/02/23 21:55 Dose: Infused Documented By: Admin: 05/02/23 20:06 Dose: 80 mls/hr Documented By: JANET Magnesium Sulfate/Dextrose (Magnesium Sulfate / D5w) 1 gm in 100 mls @ 100 mls/hr IV Q1H [facility] Stop: 05/02/23 21:18 Last Infusion: 05/02/23 23:47 Dose: Infused Documented By: Admin: 05/02/23 22:08 Dose: 100 mls/hr Documented By: Infusion: 05/02/23 21:58 Dose: Infused Documented By: Admin: 05/02/23 20:06 Dose: 100 mls/hr Documented By: JANET Thiamine HCl 100 mg/ Syringe 10 mls @ 2 mls/min IV ONE ONE Stop: 05/02/23 21:04 Last Admin: 05/02/23 21:02 Dose: 2 mls/min Documented By: JANET Warfarin Sodium (Warfarin Sod 7.5 Mg Tab) 7.5 mg PO NOW STA Stop: 05/02/23 20:41 Last Admin: 05/02/23 21:02 Dose: 7.5 mg Documented By: JANET Description This is a 21 electrode EEG with a single channel dedicated to limited EKG. The electrodes were placed in accordance with the International 10-20 system. REPORT: At the onset of the EEG the patient is awake. The background is continuous and symmetric. There is a normal anterior to posterior gradient. The posterior dominant rhythm is 8.5 hertz that is poorly sustained. There is intermittent 7 8 hertz theta activity intermixed with some low amplitude faster frequencies. No stage 2 sleep transients are seen. Drowsiness is characterized by reduced blink rate, increased theta activity, and decreased myogenic artifact. Photic stimulation is performed and does not induce any abnormalities. Interpretation Impression: This is a abnormal awake and drowsy routine EEG due to mild generalized background slowing suggestive of a mild nonspecific encephalopathy. There is no evidence of epileptiform activity.
--- NOTE | 2023-05-03 14:19 | Electrocardiogram Report ---
Test Reason : Blood Pressure : / mmHG Vent. Rate : 075 BPM Atrial Rate : 000 BPM P-R Int : 000 ms QRS Dur : 084 ms QT Int : 382 ms P-R-T Axes : 000 024 093 degrees QTc Int : 426 ms Atrial fibrillation Anteroseptal infarct (cited on or before 09-AUG-2022) Abnormal ECG When compared with ECG of 10-AUG-2022 06:15, No significant change was found Confirmed by Arjun David ([id number]) on 05/03/2023 2:19:25 PM Referred By: REFERRED SELF Confirmed By:Arjun David
--- NOTE | 2023-05-03 14:25 | Neurology Consultation ---
Date of Consultation May 03, 2023 Assessment & Plan (1) Seizure: 68 y/o female with history of HTN, breast cancer, atrial fibrillation on coumadin, PAD, diastolic heart failure, and tobacco use disorder that presented with hyponatremia. Additionally, pt with a one two year history of events, suspected to be seizures. In review of the chart, hyponatremia has been ongoing during the last year. Given the history of alcohol use as reported by the patient, alcohol withdrawal is felt to less likely be related to the occurrence of seizures. However, she does also report poor sleep. As she states that she has not been seeking evaluation in the emergency department when these events occur, laboratory values at the time of events are not definitively known. While we typically do not treat provoked seizures with medication, given the frequency and persistence of events, I have discussed proceeding with a trial of medication with keppra, which she is amenable to. Additionally, would recommend seizure precautions and follow-up with neurology as outpatient. 1. Consider initiating keppra 500 mg bid 2. MRI brain w/wo 3. Seizure precautions 4. Neurology outpatient follow-up 5. Sleep Medicine referral Telehealth Consultation Telehealth Information Telehealth Information: I performed this visit using a real-time telehealth connection between my location and the patients location ([facility]). After connecting through interactive tele-video, patient was identified by name and date of and/or wristband check.Patient (or authorized healthcare digital media representative) was informed that this was a telemedicine visit and it was being conducted confidentially over secure lines. My office door was closed and no one else was present in the room with me.Patient (or authorized healthcare digital media representative) provided consent to proceed with the visit, expressed an understanding of privacy and security of the telemedicine visit, and gave permission to have a hospital digital media representative in the room in order to assist with the visit and to conduct portions of the visit, as needed. I informed the patient (or authorized healthcare digital media representative) that I reviewed their record and presented the opportunity for them to ask any questions regarding the visit today. The patient agreed to participate. History of Present Illness Reason for Consultation: ? seizure Requesting Physician: Dr. Efrain Alvarado Attending Physician: Chiara Morfin MD History of Present Illness 68 y/o female with history of HTN, breast cancer, atrial fibrillation on coumadin, PAD, diastolic heart failure, and tobacco use disorder that presented with hyponatremia. She states that she was contacted and told to report to ED because of abnormal labs showing low sodiu, Over the last two years, she and her state that she has been having events that they were told might be seizures. She has never been seen by a neurologist. She initially had an event two years ago and then it didnt happen again until one year ago but over the last year, it has happening more frequently. She states that the events begin with her feeling funny and she has often felt scared. She also begins to feel that her eyes are twitchy and they start jumping around. Her extremities then stiffen up and she starts drooling out of the side of her mouth. Her eyes are constantly fluttering during this time. This usually lasts 5-10 minutes. She has bit her tongue before and this is usually a side laceration. They also report that she has often had urinary incontinence. The events generally all occur the same way. She is usually exhausted when the events occur and she wants to lay down afterwards. This period lasts for about 30-60 minutes. Her last event occurred two weeks ago. They state that the frequency varies quite a bit and she may go an entire month without an event or then have as many as two per month. They state that they were only recent made aware of her having low sodium levels. She reports that she only drinks 2-3 cans of beer occasionally. She denies frequent alcohol and denies ever drinking more than 2-3 cans of beer. Additionally, she does report poor sleep, although she states that this has been occurring for a long time and preceded these events. Allergies Allergy/AdvReac Type Severity Reaction Status Date / Time Sulfa (Sulfonamide Allergy Intermediate Rash Verified 05/02/23 20:04 Antibiotics) trimethoprim Allergy Intermediate Rash Verified 05/02/23 20:04 Home Medications Medication Instructions Recorded Confirmed Type folic acid 400 mcg tablet 0.4 mg PO DAILY 01/02/20 05/02/23 History thiamine HCl (vitamin B1) 100 mg 100 mg PO QAM 01/02/20 05/02/23 History tablet (Vitamin B-1) ammonium lactate 12 % lotion 1 applic topical DAILY 08/09/22 05/02/23 History rosuvastatin 10 mg tablet 10 mg PO QAM 08/09/22 05/02/23 History acetaminophen 500 mg tablet 500 mg PO DIRECTED PRN Pain 05/02/23 05/02/23 History (Tylenol Extra Strength) albuterol sulfate 2.5 mg/3 mL 2.5 mg inhalation DIRECTED PRN 05/02/23 05/02/23 History (0.083 %) solution for nebulization NEEDED fluticasone fur. 100 mcg-umeclid 1 inh inhalation DAILY 05/02/23 05/02/23 History 62.5 mcg-vilant 25 mcg inhalat.powder (Trelegy Ellipta) lidocaine 5 % topical patch 1 patch topical DAILY PRN Pain 05/02/23 05/02/23 History losartan 25 mg tablet 25 mg PO QAM 05/02/23 05/02/23 History magnesium oxide 200 mg PO DAILY 05/02/23 05/02/23 History metoprolol succinate 50 mg 50 mg PO QAM 05/02/23 05/02/23 History tablet,extended release 24 hr trazodone 100 mg tablet 100 mg PO HS 05/02/23 05/02/23 History warfarin 10 mg tablet See Rx Instructions .Route .COMPLEX 05/02/23 05/02/23 History Patient History Medical History (Updated 05/03/23 @ 15:00 by Day Lopez MD) Seizures On anticoagulant therapy warfarin daily Chronic diastolic (congestive) heart failure Hypomagnesemia Hyponatremia chronically low. Liver enzyme elevation Cancer LEFT BREAST (CHEMO AND RADIATION) Anemia Migraine Left ventricular enlargement BEING MONITORED BY ASHLY DUMONT Hypertension Chronic obstructive pulmonary disease Afib on warfarin/metoprolol---follows with Dr. Valdez Tobacco use disorder Surgical History History of bilateral cataract extraction History of surgery right femur fx repair 11/24/18 @ [facility] Hx of shoulder surgery RT SHOULDER (S/P FX) History of section X1 History of colonoscopy History of partial mastectomy LEFT History of tooth extraction Family History Other Cancer Heart disease No family history of adverse response to anesthesia Social History Smoking Status: Current every day smoker Tobacco Type: Cigarettes and E-cigarettes / Vaping Cigarettes Per Day: 20 (advised); Second Hand Exposure: Yes; Do You Dip or Chew Tobacco: No; Hx Alcohol Use: Yes Alcohol type: beer Alcohol Intake Frequency: 4 or More x per/Week Hx Substance Use: No Preferred Language: Amharic Communication Ability: Effective Educational Technician Required: No Beliefs That Will Affect Care: None marital status: Current Living Situation: Spouse How many Children do You have: 3 Feels Safe at Home: Yes Assistive Devices: None Review of Systems Negative except as listed in HPI Physical Exam AAO X 3 No aphasia or dysarthria VFF EOMI, no nystagmus Facial sensation sintact No facial asymmetry Tongue protrudes midline Motor: Moves all four extremities antigravity, no drift. No involuntary movements. Sensation: very Mildly decreased sensation to light touch in left lower extremity, otherwise intact Cerebellar: No dysmetria on FTN or HTS Results & Data Vital Signs (Past 12 Hours) Vital Signs Temp Pulse Resp BP Pulse Ox O2 Del Method 05/03/23 11:31 36.8 C 86 18 96/59 L 92 Room Air 05/03/23 08:00 Room Air 05/03/23 07:41 36.9 C 85 18 119/67 93 Room Air 05/03/23 04:16 37.3 C 84 18 133/76 94 Room Air Laboratory Results WBC 4.79, HGB 12.6, HCT 36.4,, Plts 132, INR 1.7, NA 128, Creatinine 0.44, Glucose 121. Urine negative leukocyte esterase, negative nitrite. Ethanol <10. Diagnostic Findings CTH:No acute intracranial hemorrhage, midline shift, or mass effect. EEG:This is a abnormal awake and drowsy routine EEG due to mild generalized background slowing suggestive of a mild nonspecific encephalopathy. There is no evidence of epileptiform activity.
[2023-05-03] MEDS ORDERED: POTASSIUM CHLORIDE CRTAB 20 MEQ TABCR PO STA (15:22)
--- NOTE | 2023-05-03 15:24 | Hospitalist Progress Note ---
Date of Service May 03, 2023 Assessment & Plan (1) Hyponatremia: Plan: 68-year-old female with PMH of hyperlipidemia, COPD, lung nodules, pulmonary hypertension, peripheral artery disease, chronic diastolic CHF, hypertension, chronic atrial fibrillation, protein calorie malnutrition, essential tremor, alcoholism, neuropathy, depression, ongoing tobacco abuse, history of breast cancer, general anxiety disorder, who was sent in because outpatient labs showed hyponatremia. Admitting sodium level was 122. She is being managed for the following: Hyponatremia Patient sent in from outpatient due to low sodium level in outpatient lab. Baseline sodium around 130, admitting sodium of 122. Ongoing alcoholism, urine osmolality/serum sodium level/serum osmolality sent. On IV fluids with NS at 50 mL an hour, sodium level improving, currently 128. Monitor sodium level, labs in AM Nephrology consult, await recommendation. Increase solute/protein intake. Concern for seizures: Patient with About a year history of events suspected to be seizures. She is being evaluated as an outpatient. Possible from alcohol withdrawal seizure or from hyponatremia EEG obtained, abnormal but no evidence of epileptiform activity IV Ativan as needed for breakthrough seizures Neuro consulted, with recommendations. 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 Admitting alcohol level was negative. Continue with thiamine and folic acid. Continue with alcohol withdrawal protocol. Closely monitor. Counseled regarding alcohol cessation, patient voiced understanding and is thinking of quitting drinking in future. Other chronic medical conditions: Continue with/resume home meds as and when able. COPD, stable on home inhalers, continue home inhalers Ongoing tobacco abuse, counseled, nicotine patch as needed Chronic diastolic CHF: Follows with cardiology, stable. History of A-fib: Continue with home metoprolol and Coumadin. Questionable compliance with Coumadin. Will continue PATIENT SUPPORT ASSISTANT dose of Coumadin, trend PT/INR. History of severe peripheral vascular disease: Vascular surgery has recommended intervention but patient seems to have declined as per epic. Continue with Coumadin and statin. Hypertension: Continue with home losartan and metoprolol as able. Hyperlipidemia: Continue with home meds statin Depression and anxiety: Continue with home trazodone History of breast cancer: Status post chemo and radiation in surgery. Stable. DVT prophylaxis: Heparin subcu while subtherapeutic INR, continue with home Coumadin dose. Disposition: PT/OT, CM to assist with DC planning Full code Admission and Anticipated Discharge Date Admission Date: May 02, 2023 Subjective Patient was seen and examined at bedside. Patient was lying in bed, on room air, resting comfortably, not in any acute distress. Patient reports drinking 2-3 beers a day, last drink was 2-day ago per patient. Counseling done, patient plans on quitting drinking alcohol. Patient denies any headache or dizziness or chest pain or sore throat or cough or abdominal pain. Physical Exam Physical Exam: GENERAL: Alert and oriented x3. NAD, on RA. HEENT: No pallor, no icterus. Pupils equal, round and reactive to light. Oral mucosa moist. NECK: No JVD, no neck masses. HEART: S1 and S2 heard. Regular rate and rhythm. No murmur, no gallop. RESPIRATORY SYSTEM: Normal AP diameter. No accessory muscle use. No wheezing, no crackles. ABDOMEN: Soft, bowel sounds present, nontender, no distention. CENTRAL NERVOUS SYSTEM: No facial droop. Speech is clear. Obeys simple commands. Moves extremities. bl hand tremors on stretching UE. EXTREMITIES: No edema, no erythema seen. Results & Data Results & Data Vital Signs (Past 12 Hours) Vital Signs Temp Pulse Resp BP Pulse Ox O2 Del Method 05/03/23 11:31 36.8 C 86 18 96/59 L 92 Room Air 05/03/23 08:00 Room Air 05/03/23 07:41 36.9 C 85 18 119/67 93 Room Air 05/03/23 04:16 37.3 C 84 18 133/76 94 Room Air
[2023-05-03] MEDS: WARFARIN SOD 10 MG TAB PO SCH (17:32)
[2023-05-03 18:04] LABS: BUN Creatinine Ratio 20.7 (10-20); Calcium 8.6 mg/dl (8.6-10.3); Creatinine Clr Calc Pharmacy 71.4 ml/min; Est GFR (African American) 108.2 ml/min; Est GFR (Non-African American) 93.4 ml/min; Potassium 3.8 mmol/L (3.5-5.1)
[2023-05-03] MEDS ORDERED: FUROSEMIDE INJ 20 MG/2 ML VIAL IV STA (19:21)
[2023-05-03] MEDS: traZODone HCL 100 MG TAB PO SCH (20:00)
[2023-05-03] MEDS: SODIUM CHLORIDE 0.9% 1,000 ML IV SCH (20:54)
[2023-05-04] MEDS: GABAPENTIN 600 MG TAB PO SCH ×3 (01:32→22:30)
--- NOTE | 2023-05-04 02:04 | Communication Note ---
Date of Service: May 03, 2023 720 PM Late entry Made aware by RN of serum sodium 123 from 126 AP Worsening hyponatremia Hold ARB for now Stop NSS, start fluid limit 1.2 L daily, and give 10 mg IV lasix x 1 as per nephrology AM note recommendations
[2023-05-04 03:47] LABS: Hematocrit (blood only) 35.7 % (37.0-47.0); Hemoglobin 12.1 g/dl (12.0-16.0); Mean Corpuscular Hemoglobin 33.4 pg (25.0-34.0); Mean Corpuscular Hgb Conc 33.9 g/dL (32.0-36.0); Mean Corpuscular Volume 98.6 fL (80.0-100.0); Platelet Count 138 K/uL (130-400); RDW Coefficient of Variation 14.6 % (11.5-14.5); RDW Standard Deviation 52.7 fL (36.4-46.3); Red Blood Count 3.62 M/uL (4.20-5.40)
[2023-05-04 03:57] LABS: BUN Creatinine Ratio 15.6 (10-20); Calcium 8.6 mg/dl (8.6-10.3); Est GFR (African American) 117.7 ml/min; Est GFR (Non-African American) 101.5 ml/min; Magnesium 1.4 mg/dl (1.7-2.4); Phosphorus 4.1 mg/dl (2.5-4.9); Potassium 3.8 mmol/L (3.5-5.1)
[2023-05-04 04:08] LABS: INR 2.1 (0.9-1.1); Prothrombin Time 21.7 Seconds (9.0-12.0)
[2023-05-04] MEDS: MAGNESIUM SULFATE / D5W 1 GM/100 ML BAG IV SCH ×5 (05:54→14:45)
[2023-05-04] MEDS: HEPARIN SOD 5,000 UNIT/0.5 ML VIAL SQ SCH (05:55)
--- NOTE | 2023-05-04 07:54 | Nephrology Progress Note ---
Date of Service May 04, 2023 Assessment & Plan (1) Hyponatremia: Plan: chronic hyponatremia; presented with sNa 122 12 at 1900 and a recent fall w/o other sx/complications. sNa improved to 128 by 11 AM 05/03 w/ gentle fluid repletion; then dropped to 123 last evening >recheck bmp at 1100 >> order in >>f/u lab 124 >>will give 10 mg IV lasix now and again at 2100 >>will also give further K supplements 20 mEq x 2 doses -no further lasix or NS at this time -continue 1.2L FR -goal sNa is no more than 132 tomorrow AM -recheck bmp in AM Care coordinated with Dr Morfin. Admission and Anticipated Discharge Date Admission Date: May 02, 2023 Subjective worse Na 123 last evening >> NS stopped, had one dose lasix 10 mg IV per my recommendations; sNa improved to 129 at 0300; no c/o n/v, dyspnea, edema, confusion Review of Systems 2 Review of Systems: All systems reviewed & are unremarkable except as noted in Subjective Physical Exam 2 Constitutional: well developed, well nourished and + thin (and small framed); no acute distress Eyes: EOM intact bilaterally ENMT: Ears: no external ear abnormality Nose: no external nose abnormality Mouth: + dry oral mucous membranes Neck: no nuchal rigidity Respiratory: normal respiratory effort Auscultation: + diminished lung sounds Cardiovascular: Rate/Rhythm: + irregularly irregular Extremities: no edema Gastrointestinal (Abdomen): Inspection/Auscultation: normal bowel sounds P ercussion/Palpation: abdomen soft; abdomen nontender Musculoskeletal: Extremities: strength 5/5 throughout Skin: no rashes, warm and dry Psychiatric: Orientation: alert and oriented x 3 Results & Data Vital Signs (Past 12 Hours) Vital Signs Temp Pulse Pulse Resp BP Pulse Ox O2 Del Method 05/04/23 07:31 36.7 C 72 18 110/72 96 Room Air 05/04/23 01:58 74 05/04/23 01:55 65 16 137/80 96 Room Air 05/03/23 22:38 36.6 C 76 18 132/70 91 Room Air 05/03/23 20:08 37 C 96 H 18 121/79 96 Room Air Laboratory Results 05/04/23 03:01 05/04/23 03:01
[2023-05-04] MEDS: FOLIC ACID 400 MCG TAB PO SCH (08:34)
[2023-05-04] MEDS: AMMONIUM LACTATE 12% LOTION 225 GM BTL EXT SCH (08:35)
[2023-05-04] MEDS: UMECLIDINIUM/VILANTEROL 62.5/25MCG 7 PUFFS/INHALER INH SCH (08:35)
[2023-05-04] MEDS: ROSUVASTATIN CALCIUM 10 MG TAB PO SCH (08:36)
[2023-05-04] MEDS: METOPROLOL SUCC 50MG EXT REL TAB PO SCH (08:36)
[2023-05-04] MEDS: THIAMINE HCL 100 MG TAB PO SCH (08:36)
[2023-05-04] MEDS: FLUTICASONE FUROATE 100MCG 14 PUFFS/INHALER INH SCH (08:37)
[2023-05-04] MEDS ORDERED: POTASSIUM CHLORIDE CRTAB 20 MEQ TABCR PO STA (09:04)
[2023-05-04] MEDS ORDERED: GADOBUTROL 65ML VIAL IV ONE (09:16)
[2023-05-04] MEDS: MAGNESIUM OXIDE 400 MG TAB PO SCH (10:03)
[2023-05-04] MEDS: levETIRAcetam 500 MG TAB PO SCH ×2 (10:04→21:36)
[2023-05-04 12:43] LABS: BUN Creatinine Ratio 18.9 (10-20); Calcium 8.7 mg/dl (8.6-10.3); Creatinine Clr Calc Pharmacy 111.9 ml/min; Est GFR (African American) 125.5 ml/min; Est GFR (Non-African American) 108.3 ml/min
--- NOTE | 2023-05-04 15:35 | Hospitalist Progress Note ---
Date of Service May 04, 2023 Assessment & Plan (1) Hyponatremia: Plan: 68-year-old female with PMH of hyperlipidemia, COPD, lung nodules, pulmonary hypertension, peripheral artery disease, chronic diastolic CHF, hypertension, chronic atrial fibrillation, protein calorie malnutrition, essential tremor, alcoholism, neuropathy, depression, ongoing tobacco abuse, history of breast cancer, general anxiety disorder, who was sent in because outpatient labs showed hyponatremia. Admitting sodium level was 122. She is being managed for the following: Hyponatremia Patient sent in from outpatient due to low sodium level in outpatient lab. Baseline sodium around 130, admitting sodium of 122. Ongoing alcoholism, urine Osm 120, Mona 21, Serum Osm 259 ---> Hypotonic isovolemic hyponatremia, ? increased fluid intake/? beer potomania Na levels fluctuating, appreciate nephro's recs/mx. Monitor sodium level 4 pm and in AM, labs in AM Nephrology on board. On FR 1200 ml. Increase solute/protein intake. Losartan held. Concern for seizures: Patient with About a year history of events suspected to be seizures. She is being evaluated as an outpatient. Possible from alcohol withdrawal seizure or from hyponatremia EEG obtained, abnormal but no evidence of epileptiform activity IV Ativan as needed for breakthrough seizures Neuro consulted, recs are keppra 500 mg bid, neuro f/u and MRI brain. Once pt's family brings zio patch box, collect the monitor in the box and send her for MRI. portillo d/w cardio regarding this. 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 Admitting alcohol level was negative. Continue with thiamine and folic acid. Continue with alcohol withdrawal protocol. Closely monitor. Counseled regarding alcohol cessation, patient voiced understanding and is thinking of quitting drinking in future. Other chronic medical conditions: Continue with/resume home meds as and when able. COPD, stable on home inhalers, continue home inhalers Ongoing tobacco abuse, counseled, nicotine patch as needed Chronic diastolic CHF: Follows with cardiology, stable. History of A-fib: Continue with home metoprolol and Coumadin. Questionable compliance with Coumadin. 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 History of severe peripheral vascular disease: Vascular surgery has recommended intervention but patient seems to have declined as per epic. Continue with Coumadin and statin. Hypertension: Continue with home losartan and metoprolol as able. Hyperlipidemia: Continue with home meds statin Depression and anxiety: Continue with home trazodone History of breast cancer: Status post chemo and radiation in surgery. Stable. DVT prophylaxis: on coumadin Disposition: PT/OT, CM to assist with DC planning Full code Admission and Anticipated Discharge Date Admission Date: May 02, 2023 Subjective Patient was seen and examined at bedside. Patient was lying in bed, on room air, resting comfortably, not in any acute distress. Patient oriented, denies headache or dizziness. Patient's sodium dropped to 123 last evening, losartan was held/Lasix 10 mg IV was given/IV fluid was discontinued. Physical Exam Physical Exam: GENERAL: Alert and oriented x3. NAD, on RA. HEENT: No pallor, no icterus. Pupils equal, round and reactive to light. Oral mucosa moist. NECK: No JVD, no neck masses. HEART: S1 and S2 heard. Regular rate and rhythm. No murmur, no gallop. RESPIRATORY SYSTEM: Normal AP diameter. No accessory muscle use. No wheezing, no crackles. ABDOMEN: Soft, bowel sounds present, nontender, no distention. CENTRAL NERVOUS SYSTEM: No facial droop. Speech is clear. Obeys simple commands. Moves extremities. bl hand tremors on stretching UE. EXTREMITIES: No edema, no erythema seen. Results & Data Results & Data Vital Signs (Past 12 Hours) Vital Signs Temp Pulse Pulse Resp BP Pulse Ox O2 Del Method 05/04/23 13:38 72 05/04/23 11:36 36.5 C 60 18 102/62 96 Room Air 05/04/23 08:00 Room Air 05/04/23 07:31 36.7 C 72 18 110/72 96 Room Air
--- NOTE | 2023-05-04 17:56 | Magnetic Resonance Report ---
MRI OF THE BRAIN WITHOUT IV CONTRAST CLINICAL HISTORY: Seizure. COMPARISON STUDY: CT of the brain dated 05/02/2023. TECHNIQUE: MRI of the brain was performed utilizing various T1 and T2-weighted sequences in the axial , sagittal, and coronal planes. IV contrast was not administered for this examination. The examinatio n is degraded by motion artifact. The examination is performed using the seizure protocol. FINDINGS: Brain parenchyma: There is a small T1 hyperintense, T2 hyperintense extra-axial fluid collection ponce g the right convexity. This is best seen on axial T1 image #9 and coronal FLAIR image #12. This is co nsistent vein age indeterminant subdural hemorrhage. There is no associated mass effect. There is age -related involutional change noting mild to moderate subcortical and periventricular microangiopathic disease. There is no parenchymal hematoma or midline shift. There is no restricted diffusion typical for acute ischemia. Clemons-white matter differentiation is preserved. No extra-axial fluid collection is seen. The cerebellar tonsils are normal in configuration. Ventricles, sulci, and cisterns: Prominent secondary to involutional change. Pituitary and sella: Unremarkable. Intracranial vasculature: Normal flow voids are maintained at the skull base. Orbits: The bony orbits are grossly intact. Orbital contents are normal in appearance noting bilatera l ocular lens implants. Sinuses and mastoids: There is near complete opacification of the left frontal sinus and the right sp henoid sinus. There is subtotal opacification of the maxillary antra and the ethmoid sinuses. There i s a left mastoid effusion Calvarium: Unremarkable. Cervical cord: Partially visualized cervical spinal cord is normal in morphology and signal intensity . IMPRESSION: 1. Small acute appearing subdural hemorrhage along the right convexity. This was not appreciated on t 05/02/2023 CT scan. 2. There is no parenchymal hematoma, midline shift, or evidence of acute ischemia. 3. Pansinus disease as above. 4. Left mastoid effusion. ACT 112: Negative or not required by law. Electronically signed by: Joseph Morel M.D. 05/04/2023 5:53 PM
[2023-05-04] MEDS: FUROSEMIDE INJ 20 MG/2 ML VIAL IV SCH ×2 (17:58→21:55)
[2023-05-04] MEDS: POTASSIUM CHLORIDE CRTAB 20 MEQ TABCR PO SCH ×2 (17:59→21:55)
[2023-05-04] MEDS: WARFARIN SOD 10 MG TAB PO SCH ×2 (17:59→18:09)
[2023-05-04] MEDS ORDERED: PHYTONADIONE 2.5 MG in DEXTROSE 5% 50 ML IV ONE ×2 (18:30→19:30)
--- NOTE | 2023-05-04 18:34 | Communication Note ---
Date of Service: May 04, 2023 Pt with MRI Brain completed today noting a small acute appearing subdural hemorrhage along the right convexity. Pt evaluated in her room at about 6:25pm. AAOx3 (was unsure of the date but knew month and year), PERRL, CNII-XII grossly intact, no facial droop or dysarthria noted. Strength 5/5 in lower extremities bilaterally, weaker in the right upper extremity than the left. Pt does note a Hx of a right shoulder injury. Denies dizziness or headache. INR currently therapeutic at 2.1, was subtherapeutic on admission. Pt's primary attending provider notified of the above, noted that he would be in touch with Neurology. Pt's nurse aware. Continue to monitor symptoms overnight.
--- NOTE | 2023-05-04 18:53 | Communication Note ---
Date of Service: May 04, 2023 Notified by RN of abnormal MRI Brain read at 603 pm. Reviewed MRI Tanner, s/o Small acute appearing subdural hemorrhage along the right convexity. Held the Warfarin, INR was 2.1 in the morning. Giving 5 mg vit K IV to reverse anticoagulation. In AM, pt was oriented, has generalized weakness since presentation but didn't have any focal weakness in AM, no numbness or tingling; no headache or dizziness and pupils were b/l symmetrical and reactive in AM exam. Per RN's physical exam after MRI finding, She is AOx 3, pupils equal and reactive, strength intact bilaterally x LE; weaker RUE (has h/o surgical intervention and is chronic). No headache or dizziness. I requested my oncall colleague to evaluate the patient neurologically, I discussed with her and reviewed her findings. I spoke with the patient over the phone, she denies any new changes since presentation, denies any numbness/tingling, denies any vision problem or headache or dizziness. She denies any new focal weakness or nausea or vomiting. She reports feeling about the same since presentation. She was oriented to time place and person and was clear in articulation and was understanding the gravity of situation. Updated her regarding MRI finding. D/w Neuro hospital receptionist, discussed the new development. Recommendation was to reach out to Neuro surgery. D/w Neuro Sx hospital receptionist from [facility] [place], repeat CT head in 12 hours, reverse w/ iv vit K, repeat CT head w/ any new neurological s/s. Reach out to NeuroSx if condition deteriorates. Plan to repeat CT Head in 12 hours and then in [address] head to make sure that it is not expanding, vit K iv 5 mg to reverse the INR. If with new neurological s/s then stat CT head will be needed to assess the subdural hematoma and contact [place] [facility] if condition deteriorates. Fall precaution. Neurochecks q2H. Updated pt's regarding subdural hematoma and plan of care and possible need for transfer if condition were to deteriorate otherwise conservative management for now. He voiced understanding. Answered all his questions.
[2023-05-04] MEDS: traZODone HCL 100 MG TAB PO SCH (21:36)
[2023-05-05 02:16] LABS: Albumin Level 3.5 gm/dl (3.4-5.0); BUN Creatinine Ratio 23.5 (10-20); Creatinine Clr Calc Pharmacy 121.8 ml/min; Est GFR (Non-African American) 111.3 ml/min; Phosphorus 4.1 mg/dl (2.5-4.9); Potassium 3.7 mmol/L (3.5-5.1)
[2023-05-05 02:21] LABS: Basophils # (auto) 0.03 K/uL (0.00-0.20); Basophils % (auto) 0.5 %; Eosinophils # (auto) 0.03 K/uL (0.00-0.50); Eosinophils % (auto) 0.5 %; Hematocrit (blood only) 33.8 % (37.0-47.0); Hemoglobin 11.5 g/dl (12.0-16.0); Immature Granulocytes # (auto) 0.01 K/uL (0.01-0.20); Immature Granulocytes % (auto) 0.2 %; Lymphocytes # (auto) 1.51 K/uL (1.20-3.40); Mean Corpuscular Hemoglobin 32.9 pg (25.0-34.0); Mean Corpuscular Volume 96.6 fL (80.0-100.0); Monocytes # (auto) 0.64 K/uL (0.11-0.59); Monocytes % (auto) 10.2 %; Neutrophils # (auto) 4.06 K/uL (1.40-6.50); Neutrophils % (auto) 64.6 %; Platelet Count 132 K/uL (130-400); RDW Coefficient of Variation 14.2 % (11.5-14.5); RDW Standard Deviation 50.2 fL (36.4-46.3); White Blood Count 6.28 K/ul (4.8-10.8)
[2023-05-05 02:25] LABS: INR 1.6 (0.9-1.1); Prothrombin Time 17.1 Seconds (9.0-12.0)
--- NOTE | 2023-05-05 08:35 | CT Scan Report ---
CT SCAN OF THE BRAIN WITHOUT IV CONTRAST CLINICAL HISTORY: Follow-up subdural hemorrhage COMPARISON STUDY: CT of the brain dated 05/02/2023. MRI of the brain dated 05/04/2023 TECHNIQUE: Unenhanced axial CT scan of the brain is performed from the vertex to the skull base. A do se lowering technique was utilized adhering to the principles of ALARA. CT DOSE: 547.75 mGy.cm FINDINGS: Brain parenchyma: There is trace subdural hemorrhage along the right tentorium cerebelli on the right temporal convexity. This measures up to 4 mm in maximum diameter. There is no associated mass effect . There is age-related involutional change noting [id number] subcortical and periventricular mi croangiopathic disease. There is no parenchymal hemorrhage, midline shift, or evidence of acute matt torial ischemia by CT criteria. Clemons-white matter differentiation is preserved. Ventricles, sulci, cisterns: Prominent secondary to involutional change. Intracranial vasculature: There is atherosclerotic calcification of the cavernous carotid and vertebr al arteries. Calvarium: Unremarkable. Sinuses and mastoids: There is complete opacification of the right sphenoid sinus, as well as several bilateral ethmoid sinuses. Mucosal thickening is seen in the partially visualized maxillary antra. T here is complete opacification of the left frontal sinus. There is trace left mastoid effusion. The r ight mastoid air cells are well pneumatized. Orbits: The bony orbits are grossly intact. There are bilateral ocular lens implants. IMPRESSION: 1. Trace subdural hemorrhage is again seen along the right tentorium and the right temporal convexity . There is no associated mass effect. 2. There is no parenchymal hematoma, mass effect, or evidence of acute territorial ischemia by CT cri teria. ACT 112: Negative or not required by law. Electronically signed by: Joseph Morel M.D. 05/05/2023 8:34 AM
[2023-05-05] MEDS: FUROSEMIDE 20 MG TAB PO SCH ×2 (08:47→16:39)
[2023-05-05] MEDS: MAGNESIUM OXIDE 400 MG TAB PO SCH (08:48)
[2023-05-05] MEDS: THIAMINE HCL 100 MG TAB PO SCH (08:48)
[2023-05-05] MEDS: levETIRAcetam 500 MG TAB PO SCH ×2 (08:48→22:02)
[2023-05-05] MEDS: ROSUVASTATIN CALCIUM 10 MG TAB PO SCH (08:48)
[2023-05-05] MEDS: FOLIC ACID 400 MCG TAB PO SCH (08:48)
[2023-05-05] MEDS: METOPROLOL SUCC 50MG EXT REL TAB PO SCH (08:48)
[2023-05-05] MEDS: GABAPENTIN 600 MG TAB PO SCH (08:48)
[2023-05-05] MEDS: AMMONIUM LACTATE 12% LOTION 225 GM BTL EXT SCH (08:49)
[2023-05-05] MEDS: FLUTICASONE FUROATE 100MCG 14 PUFFS/INHALER INH SCH (08:49)
[2023-05-05] MEDS: UMECLIDINIUM/VILANTEROL 62.5/25MCG 7 PUFFS/INHALER INH SCH (08:49)
[2023-05-05] MEDS: POTASSIUM CHLORIDE CRTAB 20 MEQ TABCR PO SCH (08:54)
[2023-05-05 10:23] LABS: INR 1.3 (0.9-1.1)
[2023-05-05] MEDS: ACETAMINOPHEN 325 MG TAB PO PRN ×2 (11:26→16:38)
[2023-05-05] MEDS ORDERED: FUROSEMIDE 20 MG TAB PO ONE (12:05)
--- NOTE | 2023-05-05 15:22 | Hospitalist Progress Note ---
Date of Service May 05, 2023 Assessment & Plan (1) Hyponatremia: Plan: 68-year-old female with PMH of hyperlipidemia, COPD, lung nodules, pulmonary hypertension, peripheral artery disease, chronic diastolic CHF, hypertension, chronic atrial fibrillation, protein calorie malnutrition, essential tremor, alcoholism, neuropathy, depression, ongoing tobacco abuse, history of breast cancer, general anxiety disorder, who was sent in because outpatient labs showed hyponatremia. Admitting sodium level was 122. She is being managed for the following: Hyponatremia Patient sent in from outpatient due to low sodium level in outpatient lab. Baseline sodium around 130, admitting sodium of 122. Ongoing alcoholism, urine Osm 120, Mona 21, Serum Osm 259 ---> Hypotonic isovolemic hyponatremia, ? increased fluid intake/? beer potomania Na levels fluctuating, appreciate nephro's recs/mx. Monitor sodium level in AM. Nephrology on board. On FR 1200 ml. Increase solute/protein intake. Losartan held. Concern for seizures: Patient with About a year history of events suspected to be seizures. She is being evaluated as an outpatient. Possible from alcohol withdrawal seizure or from hyponatremia EEG obtained, abnormal but no evidence of epileptiform activity IV Ativan as needed for breakthrough seizures Neuro consulted, recs are keppra 500 mg bid, neuro f/u and MRI brain. c/w Keppra. Subdural Hematoma: MRI brain obtained 05/04 with a small acute appearing subdural hemorrhage along the right convexity. Discussion with neurology/neurosurgery on 05/04 -see communication note 05/04. Repeat CT head 05/05 morning with no increase in hemorrhage. INR has been reversed. Coumadin has been on hold. Plan to repeat CT head 05/07 morning, continue to hold warfarin, neurosurgery follow-up upon discharge. If with acute deterioration/focal weakness, repeat CT head stat and consult neurosurgery. 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 Admitting alcohol level was negative. Continue with thiamine and folic acid. Continue with alcohol withdrawal protocol. Closely monitor. Counseled regarding alcohol cessation, patient voiced understanding and is thinking of quitting drinking in future. Other chronic medical conditions: Continue with/resume home meds as and when able. COPD, stable on home inhalers, continue home inhalers Ongoing tobacco abuse, counseled, nicotine patch as needed Chronic diastolic CHF: Follows with cardiology, stable. History of A-fib: Continue with home metoprolol and Coumadin. Questionable compliance with Coumadin. 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 History of severe peripheral vascular disease: Vascular surgery has recommended intervention but patient seems to have declined as per epic. Continue with Coumadin and statin. Hypertension: Continue with home losartan and metoprolol as able. Hyperlipidemia: Continue with home meds statin Depression and anxiety: Continue with home trazodone History of breast cancer: Status post chemo and radiation in surgery. Stable. DVT prophylaxis: on coumadin Disposition: PT/OT, CM to assist with DC planning Full code Admission and Anticipated Discharge Date Admission Date: May 02, 2023 Subjective Patient was seen and examined at bedside. Patient was lying in bed, on room air, resting comfortably, not in any acute distress. 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 Counseling done, patient plans on quitting drinking alcohol. Patient denies any headache or dizziness or chest pain or sore throat or cough or abdominal pain. No obvious changes in mentation since arrival. Delirium precaution. Visited patient again during the day for update to patient's at bedside, again re-explained and updated the plan of care. both voiced understanding. Physical Exam Physical Exam: GENERAL: Alert and oriented x3. NAD, on RA. HEENT: No pallor, no icterus. Pupils equal, round and reactive to light. Oral mucosa moist. NECK: No JVD, no neck masses. HEART: S1 and S2 heard. Regular rate and rhythm. No murmur, no gallop. RESPIRATORY SYSTEM: Normal AP diameter. No accessory muscle use. No wheezing, no crackles. ABDOMEN: Soft, bowel sounds present, nontender, no distention. CENTRAL NERVOUS SYSTEM: No facial droop. Speech is clear. Obeys simple commands. Moves extremities. bl hand tremors on stretching UE. EXTREMITIES: No edema, no erythema seen. Results & Data Results & Data Vital Signs (Past 12 Hours) Vital Signs Temp Pulse Pulse Resp BP BP Pulse Ox 05/05/23 10:46 36.4 C L 68 16 102/61 97 05/05/23 09:00 64 05/05/23 09:00 05/05/23 08:15 36.6 C 75 16 101/58 L 100 05/05/23 04:15 36.4 C L 67 16 124/80 98 O2 Del Method 05/05/23 10:46 Room Air 05/05/23 09:00 05/05/23 09:00 Room Air 05/05/23 08:15 Room Air 05/05/23 04:15 Room Air
[2023-05-05] MEDS ORDERED: POTASSIUM CHLORIDE CRTAB 20 MEQ TABCR PO STA (15:55)
--- NOTE | 2023-05-05 15:57 | Nephrology Progress Note ---
Date of Service May 05, 2023 Assessment & Plan (1) Hyponatremia: Plan: chronic hyponatremia; presented with sNa 122 12 at 1900 and a recent fall w/o other sx/complications. sNa improved to 128 by 11 AM 05/03 w/ gentle fluid repletion; then dropped to 123 then back up and to 130 today >recheck bmp in AM >>will also give further K supplements 20 mEq x 2 doses today (one extra in addition to standing dose) -will give lasix 9, noon, 1700 > 20 mg IV -continue 1.2L FR -goal sNa is no more than 136 tomorrow AM -continue to hold losartan Admission and Anticipated Discharge Date Admission Date: May 02, 2023 Subjective seen on rounds this am at 0740. not thirsty, no sob but hungry. no n/v. denies balance concerns or malaise; connected her w/ staff to connect her to kitchen Review of Systems 2 Review of Systems: All systems reviewed & are unremarkable except as noted in Subjective Physical Exam 2 Constitutional: well developed, well nourished and + thin (and small framed); no acute distress Eyes: EOM intact bilaterally ENMT: Ears: no external ear abnormality Nose: no external nose abnormality Mouth: + dry oral mucous membranes Neck: no nuchal rigidity Respiratory: normal respiratory effort Auscultation: + diminished lung sounds Cardiovascular: Rate/Rhythm: + irregularly irregular Extremities: no edema Gastrointestinal (Abdomen): Inspection/Auscultation: normal bowel sounds P ercussion/Palpation: abdomen soft; abdomen nontender Musculoskeletal: Extremities: strength 5/5 throughout Skin: no rashes, warm and dry Psychiatric: Orientation: alert and oriented x 3 Results & Data Vital Signs (Past 12 Hours) Vital Signs Temp Pulse Pulse Resp BP BP Pulse Ox 05/05/23 10:46 36.4 C L 68 16 102/61 97 05/05/23 09:00 64 05/05/23 09:00 05/05/23 08:15 36.6 C 75 16 101/58 L 100 05/05/23 04:15 36.4 C L 67 16 124/80 98 O2 Del Method 05/05/23 10:46 Room Air 05/05/23 09:00 05/05/23 09:00 Room Air 05/05/23 08:15 Room Air 05/05/23 04:15 Room Air Laboratory Results 05/05/23 01:45 05/05/23 01:45
[2023-05-05] MEDS: traZODone HCL 100 MG TAB PO SCH (22:02)
[2023-05-06 08:06] LABS: Hemoglobin 12.3 g/dl (12.0-16.0); Mean Corpuscular Hemoglobin 33.3 pg (25.0-34.0); Mean Corpuscular Hgb Conc 34.2 g/dL (32.0-36.0); Mean Corpuscular Volume 97.6 fL (80.0-100.0); Mean Platelet Volume 9.9 fL (9.4-12.4); Platelet Count 145 K/uL (130-400); RDW Coefficient of Variation 14.4 % (11.5-14.5); Red Blood Count 3.69 M/uL (4.20-5.40); White Blood Count 6.67 K/ul (4.8-10.8)
[2023-05-06 08:13] LABS: BUN Creatinine Ratio 33.3 (10-20); Calcium 9.4 mg/dl (8.6-10.3); Est GFR (African American) 117.7 ml/min; Est GFR (Non-African American) 101.5 ml/min; Magnesium 1.4 mg/dl (1.7-2.4); Phosphorus 4.3 mg/dl (2.5-4.9); Potassium 4.3 mmol/L (3.5-5.1)
[2023-05-06] MEDS: levETIRAcetam 500 MG TAB PO SCH ×2 (08:44→20:58)
[2023-05-06] MEDS: MAGNESIUM SULFATE / D5W 1 GM/100 ML BAG IV SCH ×3 (08:44→12:35)
[2023-05-06] MEDS ORDERED: GABAPENTIN 600 MG TAB PO SCH (08:45)
[2023-05-06] MEDS: ROSUVASTATIN CALCIUM 10 MG TAB PO SCH (08:45)
[2023-05-06] MEDS: METOPROLOL SUCC 50MG EXT REL TAB PO SCH (08:45)
[2023-05-06] MEDS: FUROSEMIDE 20 MG TAB PO SCH ×2 (08:45→17:03)
[2023-05-06] MEDS: THIAMINE HCL 100 MG TAB PO SCH (08:45)
[2023-05-06] MEDS: FOLIC ACID 400 MCG TAB PO SCH (08:45)
[2023-05-06] MEDS: POTASSIUM CHLORIDE CRTAB 20 MEQ TABCR PO SCH (08:45)
[2023-05-06] MEDS: MAGNESIUM OXIDE 400 MG TAB PO SCH (08:45)
[2023-05-06] MEDS: FLUTICASONE FUROATE 100MCG 14 PUFFS/INHALER INH SCH (08:46)
[2023-05-06] MEDS: UMECLIDINIUM/VILANTEROL 62.5/25MCG 7 PUFFS/INHALER INH SCH (08:46)
[2023-05-06] MEDS: AMMONIUM LACTATE 12% LOTION 225 GM BTL EXT SCH (08:46)
--- NOTE | 2023-05-06 12:33 | Nephrology Progress Note ---
Date of Service May 06, 2023 Assessment & Plan Admission and Anticipated Discharge Date Admission Date: May 02, 2023 Subjective Assessment & Plan (1) Hyponatremia: Plan: chronic hyponatremia- presented with sNa 122 and a recent fall w/o other sx/complications. sNa improved to 128 by 11 AM 12/13 w/ gentle fluid repletion; then dropped to 123 then back up and to 130 and 129 today Can do daily BMP from now. K is now normal. continue 20 kcl. Continue lasix 20 iv bid. continue 1.2L FR May not go much higher given the pattern last 3 days ( 128, 130 and 129) continue to hold losartan Subjective Seems to be eating well. making urine on her own 1950 ml yesterday on lasix 20 iv bid-----no anaya. concerned about dementia/Confusion. Review of Systems Review of Systems: All systems reviewed & are unremarkable except as noted in Subjective Physical Exam Constitutional: well developed, well nourished and + thin; no acute distress Eyes: EOM intact bilaterally ENMT: Ears: no external ear abnormality Nose: no external nose abnormality Mouth: + dry oral mucous membranes Neck: no nuchal rigidity Respiratory: normal respiratory effort Auscultation: + diminished lung sounds Cardiovascular: Rate/Rhythm: + irregularly irregular Extremities: no edema Gastrointestinal (Abdomen): Inspection/Auscultation: normal bowel sounds Percussion/Palpation: abdomen soft; abdomen nontender Musculoskeletal: Extremities: strength 5/5 throughout Skin: no rashes, warm and dry Psychiatric: Orientation: alert and oriented x 3 Results & Data Vital Signs (Past 12 Hours) Vital Signs Temp Pulse Pulse Resp BP Pulse Ox O2 Del Method 05/06/23 10:57 36.5 C 66 18 112/71 94 Room Air 05/06/23 07:53 76 05/06/23 07:53 Room Air 05/06/23 07:18 36.7 C 65 18 146/83 H 97 Room Air 05/06/23 03:20 36.5 C 66 18 137/84 97 Room Air
--- NOTE | 2023-05-06 15:36 | Hospitalist Progress Note ---
Date of Service May 06, 2023 Assessment & Plan (1) Hyponatremia: Plan: 68-year-old female with PMH of hyperlipidemia, COPD, lung nodules, pulmonary hypertension, peripheral artery disease, chronic diastolic CHF, hypertension, chronic atrial fibrillation, protein calorie malnutrition, essential tremor, alcoholism, neuropathy, depression, ongoing tobacco abuse, history of breast cancer, general anxiety disorder, who was sent in because outpatient labs showed hyponatremia. Admitting sodium level was 122. She is being managed for the following: Hyponatremia Patient sent in from outpatient due to low sodium level in outpatient lab. Baseline sodium around 130, admitting sodium of 122. Ongoing alcoholism, urine Osm 120, Mona 21, Serum Osm 259 ---> Hypotonic isovolemic hyponatremia, ? increased fluid intake/? beer potomania Na levels fluctuating, appreciate nephro's recs/mx. Monitor sodium level in AM. Nephrology on board. On FR 1200 ml. Increase solute/protein intake. Losartan held. Concern for seizures: Patient with About a year history of events suspected to be seizures. She is being evaluated as an outpatient. Possible from alcohol withdrawal seizure or from hyponatremia EEG obtained, abnormal but no evidence of epileptiform activity IV Ativan as needed for breakthrough seizures Neuro consulted, recs are keppra 500 mg bid, neuro f/u and MRI brain. c/w Keppra. Subdural Hematoma: MRI brain obtained 05/04 with a small acute appearing subdural hemorrhage along the right convexity. Discussion with neurology/neurosurgery on 05/04 -see communication note 05/04. Repeat CT head 05/05 morning with no increase in hemorrhage. INR has been reversed. Coumadin has been on hold. Plan to repeat CT head 05/07 morning, continue to hold warfarin, neurosurgery follow-up upon discharge. If with acute deterioration/focal weakness, repeat CT head stat and consult neurosurgery. 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 Admitting alcohol level was negative. Continue with thiamine and folic acid. Continue with alcohol withdrawal protocol. Closely monitor. Counseled regarding alcohol cessation, patient voiced understanding and is thinking of quitting drinking in future. Other chronic medical conditions: Continue with/resume home meds as and when able. COPD, stable on home inhalers, continue home inhalers Ongoing tobacco abuse, counseled, nicotine patch as needed Chronic diastolic CHF: Follows with cardiology, stable. History of A-fib: Continue with home metoprolol and Coumadin. Questionable compliance with Coumadin. 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 History of severe peripheral vascular disease: Vascular surgery has recommended intervention but patient seems to have declined as per epic. Continue with Coumadin and statin. Hypertension: Continue with home losartan and metoprolol as able. Hyperlipidemia: Continue with home meds statin Depression and anxiety: Continue with home trazodone History of breast cancer: Status post chemo and radiation in surgery. Stable. DVT prophylaxis: on coumadin Disposition: PT/OT, CM to assist with DC planning Full code Called pt's david to give update, couldn't leave voicemail. It asked "enter your remote access code" and had no option for voicemail. Admission and Anticipated Discharge Date Admission Date: May 02, 2023 Subjective Patient was seen and examined at bedside. Patient was lying in bed, on room air, resting comfortably, not in any acute distress. Patient denies any headache or dizziness or chest pain or sore throat or cough or abdominal pain. No obvious changes in mentation since arrival. Delirium precaution. Physical Exam Physical Exam: GENERAL: Alert and oriented x3. NAD, on RA. HEENT: No pallor, no icterus. Pupils equal, round and reactive to light. Oral mucosa moist. NECK: No JVD, no neck masses. HEART: S1 and S2 heard. Regular rate and rhythm. No murmur, no gallop. RESPIRATORY SYSTEM: Normal AP diameter. No accessory muscle use. No wheezing, no crackles. ABDOMEN: Soft, bowel sounds present, nontender, no distention. CENTRAL NERVOUS SYSTEM: No facial droop. Speech is clear. Obeys simple commands. Moves extremities. bl hand tremors on stretching UE. EXTREMITIES: No edema, no erythema seen. Results & Data Results & Data Vital Signs (Past 12 Hours) Vital Signs Temp Pulse Pulse Resp BP Pulse Ox O2 Del Method 05/06/23 10:57 36.5 C 66 18 112/71 94 Room Air 05/06/23 07:53 76 05/06/23 07:53 Room Air 05/06/23 07:18 36.7 C 65 18 146/83 H 97 Room Air
[2023-05-06] MEDS: traZODone HCL 100 MG TAB PO SCH (20:58)
[2023-05-07 06:22] LABS: Hematocrit (blood only) 40.2 % (37.0-47.0); Hemoglobin 13.2 g/dl (12.0-16.0)
[2023-05-07 06:36] LABS: BUN Creatinine Ratio 36.1 (10-20); Calcium 9.6 mg/dl (8.6-10.3); Creatinine Clr Calc Pharmacy 67.9 ml/min; Est GFR (African American) 106.5 ml/min; Est GFR (Non-African American) 91.9 ml/min; Magnesium 1.6 mg/dl (1.7-2.4)
[2023-05-07 06:44] LABS: INR 1.2 (0.9-1.1)
--- NOTE | 2023-05-07 07:53 | CT Scan Report ---
CT SCAN OF THE BRAIN WITHOUT IV CONTRAST CLINICAL HISTORY: Follow-up subdural hemorrhage COMPARISON STUDY: CT of the brain dated 05/05/2023. MRI of the brain dated 05/04/2023 TECHNIQUE: Unenhanced axial CT scan of the brain is performed from the vertex to the skull base. A do se lowering technique was utilized adhering to the principles of ALARA. CT DOSE: 625.8 mGy.cm FINDINGS: Brain parenchyma: There is only trace residual subdural hemorrhage along the right anterior temporal convexity. There is no associated mass effect. There is age-related involutional change noting mild-t o-moderate subcortical and periventricular microangiopathic disease. There is no parenchymal hemorrha ge, midline shift, or evidence of acute territorial ischemia by CT criteria. Clemons-white matter differ entiation is preserved. Ventricles, sulci, cisterns: Prominent secondary to involutional change. Intracranial vasculature: There is atherosclerotic calcification of the cavernous carotid and vertebr al arteries. Calvarium: Unremarkable. Sinuses and mastoids: There is complete opacification of the right sphenoid sinus, as well as several bilateral ethmoid sinuses. Mucosal thickening is seen in the partially visualized maxillary antra. T here is complete opacification of the left frontal sinus. There is trace left mastoid effusion. The r ight mastoid air cells are well pneumatized. Orbits: The bony orbits are grossly intact. There are bilateral ocular lens implants. IMPRESSION: 1. There is only trace residual subdural hemorrhage seen along the right temporal convexity. This has almost completely resolved and there is no associated mass effect. 2. There is no parenchymal hematoma, mass effect, or evidence of acute territorial ischemia by CT cri teria. 3. Pansinus disease as above. ACT 112: Negative or not required by law. Electronically signed by: Joseph Morel M.D. 05/07/2023 7:51 AM
[2023-05-07] MEDS: THIAMINE HCL 100 MG TAB PO SCH (08:45)
[2023-05-07] MEDS: FOLIC ACID 400 MCG TAB PO SCH (08:45)
[2023-05-07] MEDS: FUROSEMIDE 20 MG TAB PO SCH (08:45)
[2023-05-07] MEDS: levETIRAcetam 500 MG TAB PO SCH (08:45)
[2023-05-07] MEDS: METOPROLOL SUCC 50MG EXT REL TAB PO SCH (08:45)
[2023-05-07] MEDS: POTASSIUM CHLORIDE CRTAB 20 MEQ TABCR PO SCH (08:45)
[2023-05-07] MEDS: ROSUVASTATIN CALCIUM 10 MG TAB PO SCH (08:45)
[2023-05-07] MEDS: AMMONIUM LACTATE 12% LOTION 225 GM BTL EXT SCH (08:46)
[2023-05-07] MEDS: UMECLIDINIUM/VILANTEROL 62.5/25MCG 7 PUFFS/INHALER INH SCH (08:46)
[2023-05-07] MEDS: FLUTICASONE FUROATE 100MCG 14 PUFFS/INHALER INH SCH (08:46)
[2023-05-07] MEDS: MAGNESIUM OXIDE 400 MG TAB PO SCH (08:46)
[2023-05-07] MEDS: MAGNESIUM SULFATE / D5W 1 GM/100 ML BAG IV SCH ×2 (09:51→11:31)
--- NOTE | 2023-05-07 15:17 | Discharge Summary ---
Date of Service May 07, 2023 Admission HPI Per Admitting Provider 68-year-old female with past medical significant for hyperlipidemia, COPD, lung nodules, pulmonary hypertension, peripheral artery disease, chronic diastolic CHF, hypertension, chronic atrial fibrillation, protein calorie malnutrition, essential tremor, alcoholism, neuropathy, depression, ongoing tobacco abuse, history of breast cancer, general anxiety disorder, who was sent in because outpatient labs showed hyponatremia. Patient labs here in the ER are 122. Patient is also thinks she had like seizure-like activity but a couple of weeks ago. Has some headache. No blurred visions. No runny nose. No sore throat. Has chronic cough from her smoking. Chronic shortness of breath, smoking. Appetite is okay. No difficulty swallowing. No chest pain. No nausea. No abdominal pain. Normal bowel and bladder movements. Currently resting comfortably and hemodynamically stable. Past medical history. As mentioned above Past surgical history. Left breast biopsy.Left axillary lymph node biopsy. . Colonoscopy with biopsy. Excision of right breast lesion. Cataract surgery. Ligation of oviducts. Left partial mastectomy. Right trochanter fracture repair. Social history. . Smokes 1 pack a day for 44 years. Alcohol currently drinking 2-3 beers daily. No drug use. Family history. Mother had rheumatoid arthritis. A-fib. Pacemaker. Father had diabetes. Prostate cancer. Sister had breast cancer Admission Exam Per Admitting Provider General- Not in distress Head- atraumatic Eyes- PERRL. ENT- oropharynx clear Neck- supple, no JVD. Lungs- clear to auscultation no wheezing or crackles. Heart- regular rhythm; no murmur, no gallop. Abdomen- normal bowel sounds, soft, nontender, no distension Extremities- no pretibial edema, no erythema Neuro- alert, oriented x 3; PERRL, no facial palsy; no dysarthria; moves extremities. Skin- warm & dry Principal Diagnosis Hyponatremia Concern for seizures Subdural hematoma Chronic alcoholism Discharge Exam GENERAL: Alert and oriented x3. NAD, on RA. HEENT: No pallor, no icterus. Pupils equal, round and reactive to light. Oral mucosa moist. NECK: No JVD, no neck masses. HEART: S1 and S2 heard. Regular rate and rhythm. No murmur, no gallop. RESPIRATORY SYSTEM: Normal AP diameter. No accessory muscle use. No wheezing, no crackles. ABDOMEN: Soft, bowel sounds present, nontender, no distention. CENTRAL NERVOUS SYSTEM: No facial droop. Speech is clear. Obeys simple commands. Moves extremities. EXTREMITIES: No edema, no erythema seen. Discharge Data Allergies Allergy/AdvReac Type Severity Reaction Status Date / Time Sulfa (Sulfonamide Allergy Intermediate Rash Verified 05/02/23 20:04 Antibiotics) trimethoprim Allergy Intermediate Rash Verified 05/02/23 20:04 Consultations 05/02/23 19:39 ED Decision to Admit Stat 05/03/23 08:00 Consult Nephrology Routine Consult Neurology Routine Ordered Studies 05/02/23 19:18 CT head/brain wo con Stat 05/04/23 09:07 MR brain wo con Routine 05/05/23 07:00 CT head/brain wo con Routine 05/07/23 07:00 CT head/brain wo con Routine Hospital Course (1) Hyponatremia: 68-year-old female with PMH of hyperlipidemia, COPD, lung nodules, pulmonary hypertension, peripheral artery disease, chronic diastolic CHF, hypertension, chronic atrial fibrillation, protein calorie malnutrition, essential tremor, alcoholism, neuropathy, depression, ongoing tobacco abuse, history of breast cancer, general anxiety disorder, who was sent in because outpatient labs showed hyponatremia. Admitting sodium level was 122. She was managed for the following: Hyponatremia Patient sent in from outpatient due to low sodium level in outpatient lab. Baseline sodium around 130, admitting sodium of 122. Ongoing alcoholism, urine Osm 120, Mona 21, Serum Osm 259 ---> Hypotonic isovolemic hyponatremia, ? increased fluid intake/? beer potomania Na level lately around 129, d/w nephro dc on lasix and kcl supplement f/u nephro on dc. c/w FR 1200 ml. Increase solute/protein intake. Losartan dc'd on discharge in favor of lasix and also losartan causes hyponatremia. Concern for seizures: Patient with About a year history of events suspected to be seizures. She is being evaluated as an outpatient. Possible from alcohol withdrawal seizure or from hyponatremia EEG obtained, abnormal but no evidence of epileptiform activity IV Ativan as needed for breakthrough seizures Neuro consulted, recs are keppra 500 mg bid, neuro f/u and MRI brain. c/w Keppra. Subdural Hematoma: MRI brain obtained 05/04 with a small acute appearing subdural hemorrhage along the right convexity. Discussion with neurology/neurosurgery on 05/04 -see communication note 05/04. Repeat CT head 05/05 morning with no increase in hemorrhage. INR has been reversed. Coumadin has been on hold. Plan to repeat CT head 05/07 morning - resolving hge, continue to hold warfarin, neurosurgery follow-up upon discharge for further discussion regarding initiation of warfarin. 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 Admitting alcohol level was negative. Continue with thiamine and folic acid. Continue with alcohol withdrawal protocol. Closely monitor. Counseled regarding alcohol cessation, patient voiced understanding and is thinking of quitting drinking in future. Other chronic medical conditions: Continue with/resume home meds as and when able. COPD, stable on home inhalers, continue home inhalers Ongoing tobacco abuse, counseled, nicotine patch as needed Chronic diastolic CHF: Follows with cardiology, stable. History of A-fib: Continue with home metoprolol and Coumadin. Questionable compliance with Coumadin. 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 History of severe peripheral vascular disease: Vascular surgery has recommended intervention but patient seems to have declined as per epic. Continue with Coumadin and statin. Hypertension: Continue with home losartan and metoprolol as able. Hyperlipidemia: Continue with home meds statin Depression and anxiety: Continue with home trazodone History of breast cancer: Status post chemo and radiation in surgery. Stable. DVT prophylaxis: on coumadin Disposition: PT/OT, CM to assist with DC planning Full code Patient being discharged with following instruction at the point of discharge: Follow-up with your primary care physician within a week time and likely you will need labs CBC/CMP/magnesium/phosphorus. For your hyponatremia, recommend complete cessation of any alcohol products. Recommend increase protein intake in diet. Maintain fluid restriction of 1200 mL a day. Follow-up with nephrology in 2 weeks time upon discharge. Your losartan has been held and a new medication Lasix has been added. For your concern for seizures, neurology evaluated you and started you on Keppra. Follow-up with neurology in 2 to 4 weeks upon discharge. For your subdural hematoma, we had multiple repeat CT scan of the head showing resolution of your hemorrhage. Your warfarin has been held, you will need to follow-up with neurosurgery in 1 to 2 weeks time upon discharge for further discussion on resuming your Coumadin. Follow-up with your PCP office to set up the referral. Recommend against any intake of alcoholic products in future. Take your medications as prescribed. Please make sure that you are able to get your medications today by calling your pharmacy before you leave the hospital so that your treatment continuity is not broken. Home Health Attestation I certify that this patient is under my care and that I, or a physicians membership assistant working with me, had a face to-face encounter that meets the home health [id number] encounter requirements with this patient. The encounter with the patient was in whole, or in part, for the following medical condition, which is the primary reason for home health care (list medical condition): I certify that, based on my findings, the following services are medically necessary home health services: My clinical findings support the need for the above services because: Further, I certify that my clinical findings support that this patient is homebound (i.e. absences from home require considerable and taxing effort and are for medical reasons or judaism services or infrequently or of short duration when for other reasons) because: Certification for Home Health Services: Based on the above findings, I certify that this patient is confined to the home and needs intermittent detention care, physical therapy and/or speech therapy or continues to need occupational therapy. The patient is under my care, and I have initiated the establishment of the plan of care. This patient will be followed by a physician who will periodically review the plan of care. Total Time Total Time Spent Total Time Spent (In Minutes): 45 Discharge Plan Discharge Items Patient Disposition: Home - Self-Care Reason For Visit: HYPONATREMIA, ALOCHOLISM Discharge Diagnosis: Hyponatremia Concern for seizures Subdural hematoma Chronic alcoholism Activity: Resume your previous activity Activity Comment: avoid fall. Non-emergency contact: Primary Care Provider Call non-emergency contact if: you have any medication questions, your symptoms worsen and your temperature is above 101 Follow-up/Referrals: Britney Ko CRNP [Primary Care Provider] - Diet: Regular Fluids: 1200ml (5 cups) Addtl Attending Provider Instructions: Follow-up with your primary care physician within a week time and likely you will need labs CBC/CMP/magnesium/phosphorus. For your hyponatremia, recommend complete cessation of any alcohol products. Recommend increase protein intake in diet. Maintain fluid restriction of 1200 mL a day. Follow-up with nephrology in 2 weeks time upon discharge. Your losartan has been held and a new medication Lasix has been added. For your concern for seizures, neurology evaluated you and started you on Keppra. Follow-up with neurology in 2 to 4 weeks upon discharge. For your subdural hematoma, we had multiple repeat CT scan of the head showing resolution of your hemorrhage. Your warfarin has been held, you will need to follow-up with neurosurgery in 1 to 2 weeks time upon discharge for further discussion on resuming your Coumadin. Follow-up with your PCP office to set up the referral. Recommend against any intake of alcoholic products in future. Take your medications as prescribed. Please make sure that you are able to get your medications today by calling your pharmacy before you leave the hospital so that your treatment continuity is not broken. Pending Studies at Discharge: No Stand-Alone Forms: My [facility] [employer] Business Plan, Smoking Cessation Medications and DC Order Prescriptions: New levetiracetam [Keppra] 500 mg Tablet 500 mg PO BID Qty: 60 0RF furosemide 20 mg Tablet 20 mg PO [id number] Qty: 60 0RF potassium chloride 20 mEq Tablet,Er Particles/Crystals 20 meq PO QAM Qty: 30 0RF Continued thiamine HCl (vitamin B1) [Vitamin B-1] 100 mg Tablet 100 mg PO QAM folic acid 400 mcg Tablet 0.4 mg PO DAILY ammonium lactate 12 % lotion 1 applic TOPICAL DAILY rosuvastatin 10 mg tablet 10 mg PO QAM albuterol sulfate 2.5 mg /3 mL (0.083 %) Solution For Nebulization 2.5 mg INHALATION DIRECTED PRN (Reason: NEEDED) Rx Instructions: PER PT "HAVE NOT STARTED". acetaminophen [Tylenol Extra Strength] 500 mg Tablet 500 mg PO DIRECTED MDD PER [facility]-DO NOT EXCEED 1000 MG PRN (Reason: Pain) Rx Instructions: PER PT "TAKE 2, SOMETIMES 3 TABS AT A TIME". trazodone 100 mg tablet 100 mg PO HS lidocaine 5 % Adhesive Patch,Medicated 1 patch TOPICAL DAILY PRN (Reason: Pain) Rx Instructions: leave on most painful area for up to 12 hrs magnesium oxide 200 mg magnesium Tablet 200 mg PO DAILY Trelegy Ellipta 100-62.5-25 mcg Blister With Device 1 inh INHALATION DAILY metoprolol succinate 50 mg tablet extended release 24 hr 50 mg PO QAM Held warfarin 10 mg tablet See Rx Instructions .ROUTE .COMPLEX Hold Instructions: Resume on 06/07/23. Until further evaluation by neurosurgery in 1 to 2 weeks time. Rx Instructions: TAKES 5 MG ON TUESDAYS EVENINGS ONLY, THEN 10 MG ALL OTHER EVENINGS. Discontinued losartan 25 mg tablet 25 mg PO QAM Discharge Orders: Discharge Order (Routine); Ordered 05/07/23 Ordered By: Chiara Morfin Admission Data Admit Date/Time: 05/02/23 20:39 Attending Provider: Chiara Morfin Admit Provider: Efrain Alvarado Primary Care Provider: Britney Ko Other Providers: Efrain Alvarado; Yulisa Lim; Porsha Sanford; Jose Maria Narvaez; Porsha Snyder; Jd Yanez; Jin Ordonez; Scotty Carrero; Dago Urias; Katty Cohn; Heath Pappas; Dov Cortez; Hardik Riojas; Armin Hooper; Day Lopez; Rebekah Sher; Dago Villegas
--- NOTE | 2023-05-07 17:19 | Communication Note ---
Date of Service: May 07, 2023 Neurology Update: 68 y/o female with history of HTN, breast cancer, atrial fibrillation, PAD, diastolic heart failure, and tobacco use disorder that p resented with hyponatremia as well as a one to two year history of events suspected to be seizures. Gven frequency/recurrency of events, pt started on trial of keppra 500 mg bid and no events reported while admitted. MRI brain completed on 05/04 and radiology reported trace right convexity subdural hematoma. Neurosurgery consult recommended. Pt given vitamin K for reversal and anticoagulation discontinued per primary. Repeat CTH on 05/05 and today 05/07 stable. Pt to follow-up with neurosurgery in 1 to 2 weeks. If patient felt in the future to not be a candidate for anticoagulation, would consider referral for LAAC. Recommend outpatient neurology follow-up and sleep medicine referral.
== END 2023-05-07 15:44 | disposition home or self-care (01) | DRG 640 ==
LOC: ED 18:13 → 2S 20:39

== ENCOUNTER 2023-05-31 19:12 | Inpatient (IN) ==
[2023-05-31 20:21] LABS: Basophils # (auto) 0.06 K/uL (0.00-0.20); Basophils % (auto) 0.7 %; Eosinophils # (auto) 0.06 K/uL (0.00-0.50); Eosinophils % (auto) 0.7 %; Hematocrit (blood only) 41.6 % (37.0-47.0); Hemoglobin 14.2 g/dl (12.0-16.0); Immature Granulocytes # (auto) 0.03 K/uL (0.01-0.20); Immature Granulocytes % (auto) 0.4 %; Lymphocytes # (auto) 1.68 K/uL (1.20-3.40); Lymphocytes % (auto) 19.8 %; Mean Corpuscular Hemoglobin 31.8 pg (25.0-34.0); Mean Corpuscular Hgb Conc 34.1 g/dL (32.0-36.0); Mean Corpuscular Volume 93.1 fL (80.0-100.0); Mean Platelet Volume 9.4 fL (9.4-12.4); Monocytes # (auto) 0.61 K/uL (0.11-0.59); Monocytes % (auto) 7.2 %; Neutrophils # (auto) 6.03 K/uL (1.40-6.50); Neutrophils % (auto) 71.2 %; Platelet Count 303 K/uL (130-400); RDW Coefficient of Variation 14.1 % (11.5-14.5); RDW Standard Deviation 48.7 fL (36.4-46.3); Red Blood Count 4.47 M/uL (4.20-5.40); White Blood Count 8.47 K/ul (4.8-10.8)
--- NOTE | 2023-05-31 20:34 | Emergency Department Note ---
Impression & Plan Hyponatremia, Fall, History of alcohol abuse, Closed sacral fracture, Closed fracture of pubic ramus ED Provider Note NAME: ELEN CROWDER AGE: 68 SEX: F : 1955 ARRIVES VIA: Walk-In INFORMANT: Patient, ED PROVIDER(S): Juan Richmond MD CHIEF COMPLAINT: Dizziness, hip pain MEDICAL DECISION MAKING: Patient presents due to concern for dizziness and associated hip pain. IV was established blood obtained along CT and CT pelvis. Blood work shows a normal white count hemoglobin and platelet count the patient's kidney function is unremarkable. Hyponatremia 127. The patient is a chronic alcohol user. Alcohol negative. CT head negative. CT the pelvis that shows a left sacral aníbal or and pubic symphysis inferior pubic rami fractures. Chest x-ray clear. Given the patient's hyponatremia and fractures I did speak to the on-call medicine service and patient was admitted by Dr. Duong. Discussion w/ other healthcare providers: Dr. Duong inpatient medicines are Prior /Outside records reviewed: I reviewed a discharge summary from Dr. Morfin from May 07, 2023. Known history of hyperlipidemia COPD lung nodules pulmonary hypertension PAD CHF hypertension A-fib alcoholism neuropathy depression who presented due to concern for hyponatremia. EEG negative there was concern for possible seizures possibly from alcohol withdrawal or hyponatremia. Patient was also noted to have a subdural hematoma which was small acute appearing in the right convexity. This was discussed with neurology and neurosurgery and there was a repeat completed the following morning on May 05 which showed no increase in hemorrhage and patient's INR has been reversed. Differential diagnosis: Fracture, dislocation, contusion, strain, sprain, ICH, hemothorax, intra- abdominal injury, anemia among other causes were considered. Diagnostics, as interpreted by me: ECG: And A-fib, rate 94, normal QRS duration, normal axis no ST elevations Cardiac monitoring: An order was placed for continuous cardiac monitoring. The monitor shows a rate of 85 with irregular irregular rhythm. Patient was placed on pulse oximetry Medical decision rules: None Imaging studies: I informally interpreted the patient's CT pelvis which does show pubic rami fractures on the left with formal report to follow. HPI: Patient presents due to concern for dizziness and associated pain of the hip. Patient presents due to concern for dizziness. Patient states that she does get occasionally lightheaded. The patient did have an admission back in April. Patient reportedly was discharged on Lasix as well as fluid restrictions. The patient 2 weeks ago reports that she fell landing backwards on her bottom and associated head trauma. Patient did try to get up. Patient denies any syncope or LOC. Patient denies any chest pains or shortness of breath. PAST MEDICAL HISTORY: See Below PAST SURGICAL HISTORY: See Below SOCIAL HISTORY: See Below HOME MEDICATIONS: See Below ALLERGIES: See Below VITALS: See Below PHYSICAL EXAMINATION: GENERAL: NAD, non-toxic. EYE EXAM: Normal conjunctiva. PERRL, no anisocoria and EOM's grossly intact w/o pain. OROPHARYNX: Moist mucus membranes, grossly normal dentition. NECK: Supple, no nuchal rigidity, no adenopathy, non-tender. No signs of meningismus. FROM of the neck with good chin to chest and neck extension. No stridor. LUNGS: Clear to auscultation. Normal chest wall mechanics. HEART: Irregularly irregular, no MRG. ABDOMEN: Abdomen soft, non-tender, no masses, no rebound or guarding. BACK: No CVA TTP. SKIN: No rashes and no bruising. UPPER EXTREMITIES: Upper extremities are grossly normal. LOWER EXTREMITIES: Left hip pain. NEURO EXAM: A&O x3, cranial nerves II-XII grossly intact, normal speech, moves all 4 extremities. Past Med/Surg History Medical History Seizures On anticoagulant therapy warfarin daily Chronic diastolic (congestive) heart failure Hypomagnesemia Hyponatremia chronically low. Liver enzyme elevation Cancer LEFT BREAST (CHEMO AND RADIATION) Anemia Migraine Left ventricular enlargement BEING MONITORED BY ASHLY DUMONT Hypertension Chronic obstructive pulmonary disease Afib on warfarin/metoprolol---follows with Dr. Valdez Tobacco use disorder Surgical History History of bilateral cataract extraction History of surgery right femur fx repair 11/24/18 @ [facility] Hx of shoulder surgery RT SHOULDER (S/P FX) History of section X1 History of colonoscopy History of partial mastectomy LEFT History of tooth extraction Family History Other Cancer Heart disease No family history of adverse response to anesthesia Social History Smoking Status: Current every day smoker Tobacco Type: Cigarettes Cigarettes Per Day: 20 (advised); Second Hand Exposure: Yes; Do You Dip or Chew Tobacco: No; Hx Alcohol Use: Yes Alcohol type: beer Alcohol Intake Frequency: 4 or More x per/Week Hx Substance Use: No Preferred Language: Turkmen Communication Ability: Effective Wire Tester Required: No Beliefs That Will Affect Care: None marital status: Current Living Situation: Spouse How many Children do You have: 3 Other Information That Helps Us Care for You: No Feels Safe at Home: Yes Safety Concerns: Feels Safe At This Time Assistive Devices: Cane, Walker and Wheelchair Allergies Allergies Allergy/AdvReac Type Severity Reaction Status Date / Time Sulfa (Sulfonamide Allergy Intermediate Rash Verified 05/31/23 20:58 Antibiotics) trimethoprim Allergy Intermediate Rash Verified 05/31/23 20:58 Home Meds Home Medications Medication Instructions Recorded Confirmed folic acid 400 mcg tablet 0.4 mg PO DAILY 01/02/20 05/31/23 thiamine HCl (vitamin B1) 100 mg 100 mg PO QAM 01/02/20 05/31/23 tablet (Vitamin B-1) ammonium lactate 12 % lotion 1 applic topical DAILY 08/09/22 05/31/23 rosuvastatin 10 mg tablet 10 mg PO QAM 08/09/22 05/31/23 acetaminophen 500 mg tablet 500 mg PO DIRECTED PRN Pain 05/02/23 05/31/23 (Tylenol Extra Strength) albuterol sulfate 2.5 mg/3 mL 2.5 mg inhalation DIRECTED PRN 05/02/23 05/31/23 (0.083 %) solution for nebulization NEEDED fluticasone fur. 100 mcg-umeclid 1 inh inhalation DAILY 05/02/23 05/31/23 62.5 mcg-vilant 25 mcg inhalat.powder (Trelegy Ellipta) lidocaine 5 % topical patch 1 patch topical DAILY PRN Pain 05/02/23 05/31/23 magnesium oxide 200 mg PO DAILY 05/02/23 05/31/23 metoprolol succinate 50 mg 50 mg PO QAM 05/02/23 05/31/23 tablet,extended release 24 hr trazodone 100 mg tablet 100 mg PO HS 05/02/23 05/31/23 warfarin 10 mg tablet See Rx Instructions .Route .COMPLEX 05/02/23 05/31/23 Previous Rx's Medication Instructions Recorded furosemide 20 mg tablet 20 mg PO BID17 #60 tabs 05/07/23 levetiracetam 500 mg tablet 500 mg PO BID #60 tabs 05/07/23 (Keppra) potassium chloride 20 mEq 20 meq PO QAM #30 tabs 05/07/23 tablet,extended release(part/cryst) Results & Data (ED) Vital Signs Vital Signs - 24 hr 05/31/23 19:25 Temperature 36.8 C Temperature Source Temporal Artery Scan Pulse Rate 103 H Respiratory Rate 16 Blood Pressure 120/86 Blood Pressure Mean 97 Pulse Oximetry 97 Oxygen Delivery Method Room Air Sepsis Recent Fever Within 48 Hours No Sepsis New/Unexplained Change in Mental Status No Sepsis Action Taken by Nursing No Action Required Home Medications Current Medication List: was personally reviewed by me Laboratory Data Attestation: I reviewed the patient's lab results. 06/03/23 05:48 06/03/23 05:48 Lab Results 05/31/23 05/31/23 Range/Units 20:00 20:42 WBC 8.47 (4.8-10.8) K/ul RBC 4.47 (4.20-5.40) M/uL Hgb 14.2 (12.0-16.0) g/dl Hct 41.6 (37.0-47.0) % MCV 93.1 (80.0-100.0) fL MCH 31.8 (25.0-34.0) pg MCHC 34.1 (32.0-36.0) g/dL RDW Std Deviation 48.7 H (36.4-46.3) fL RDW Coeff of Saw 14.1 (11.5-14.5) % Plt Count 303 (130-400) K/uL MPV 9.4 (9.4-12.4) fL Immature Gran % (Auto) 0.4 % Neut % (Auto) 71.2 % Lymph % (Auto) 19.8 % Bureau % (Auto) 7.2 % Eos % (Auto) 0.7 % Baso % (Auto) 0.7 % Neut # (Auto) 6.03 (1.40-6.50) K/uL Lymph # (Auto) 1.68 (1.20-3.40) K/uL Bureau # (Auto) 0.61 H (0.11-0.59) K/uL Eos # (Auto) 0.06 (0.00-0.50) K/uL Baso # (Auto) 0.06 (0.00-0.20) K/uL Immature Gran # (Auto) 0.03 (0.01-0.20) K/uL PT 38.5 H (9.0-12.0) Seconds INR 3.8 H (0.9-1.1) APTT 39 H (21-31) Seconds PTT Ratio 1.4 Sodium 127 L (136-145) mmol/L Potassium 3.8 (3.5-5.1) mmol/L Chloride 92 L (98-107) mmol/L Carbon Dioxide 24 (21-32) mmol/L Anion Gap 11 (3-11) BUN 12 (6-23) mg/dl Creatinine 0.43 L (0.6-1.2) mg/dl Est Cr Clr Drug Dosing Not Reportable Est GFR ( Amer) 119.4 ml/min Est GFR (Non-Af Amer) 103.1 ml/min BUN/Creatinine Ratio 27.9 H (10-20) Glucose 129 H (70-99(Fasting)) mg/dl Calcium 9.5 (8.6-10.3) mg/dl Phosphorus 3.8 (2.5-4.9) mg/dl Magnesium 1.4 L (1.7-2.4) mg/dl Total Bilirubin 0.9 (0.2-1.0) mg/dl AST 22 (13-39) U/L ALT 10 (7-52) U/L Alkaline Phosphatase 179 H (34-104) U/L Total Protein 7.8 (6.0-8.3) gm/dl Albumin 4.0 (3.4-5.0) gm/dl Globulin 3.8 (2.5-4.0) gm/dl Albumin/Globulin Ratio 1.1 (0.9-2) Ethyl Alcohol mg/dL < 10.0 (<10.0) mg/dl Administered Medications Acetaminophen (Acetaminophen 325 Mg Tab) 650 mg PO QID PRN PRN Reason: pain/fever Stop: 07/01/23 10:13 Last Admin: 06/03/23 11:16 Dose: 650 mg Documented By: Admin: 06/01/23 21:41 Dose: 650 mg Documented By: KARIE Fluticasone Furoate (Fluticasone Furoate 100mcg 14 Puffs/Inhaler) 1 puffs INH DAILY SARA Stop: 07/01/23 08:59 Last Admin: 06/03/23 09:04 Dose: 1 puffs Documented By: Admin: 06/02/23 12:32 Dose: 1 puffs Documented By: Admin: 06/01/23 09:48 Dose: 1 puffs Documented By: KOFI Folic Acid (Folic Acid 400 Mcg Tab) 400 mcg PO DAILY SARA Stop: 07/01/23 08:59 Last Admin: 06/03/23 08:57 Dose: 400 mcg Documented By: Admin: 06/02/23 10:14 Dose: 400 mcg Documented By: Admin: 06/01/23 09:48 Dose: 400 mcg Documented By: KOFI Furosemide (Furosemide 20 Mg Tab) 20 mg PO BID17 SARA Stop: 07/01/23 16:59 Last Admin: 06/03/23 08:55 Dose: 20 mg Documented By: Admin: 06/02/23 17:25 Dose: 20 mg Documented By: Admin: 06/02/23 10:15 Dose: 20 mg Documented By: Admin: 06/01/23 17:37 Dose: 20 mg Documented By: SAHARA Ceftriaxone Sodium 2,000 mg/ (Dextrose) 50 mls @ 100 mls/hr IV Q24H SARA; Protocol Stop: 06/11/23 14:59 Last Infusion: 06/02/23 16:02 Dose: Infused Documented By: RRAmeya Admin: 06/02/23 15:30 Dose: 100 mls/hr Documented By: Infusion: 06/01/23 17:35 Dose: Infused Documented By: Admin: 06/01/23 17:02 Dose: 100 mls/hr Documented By: SAHARA Lactic Acid (Ammonium Lactate 12% Lotion 225 Gm Btl) 1 gm EXT DAILY SARA Stop: 07/01/23 08:59 Last Admin: 06/03/23 09:58 Dose: Not Given Documented By: Admin: 06/02/23 12:33 Dose: 1 gm Documented By: Admin: 06/01/23 09:48 Dose: 1 gm Documented By: KOFI Levetiracetam (Levetiracetam 500 Mg Tab) 500 mg PO BID [facility] Stop: 07/01/23 08:59 Last Admin: 06/03/23 08:56 Dose: 500 mg Documented By: Admin: 06/02/23 20:02 Dose: 500 mg Documented By: SAHARA(2) Admin: 06/02/23 10:15 Dose: 500 mg Documented By: Admin: 06/01/23 20:07 Dose: 500 mg Documented By: Admin: 06/01/23 09:48 Dose: 500 mg Documented By: KOFI Magnesium Oxide (Magnesium Oxide 400 Mg Tab) 400 mg PO DAILY [facility] Stop: 07/01/23 08:59 Last Admin: 06/03/23 08:57 Dose: 400 mg Documented By: Admin: 06/02/23 10:15 Dose: 400 mg Documented By: Admin: 06/01/23 09:48 Dose: 400 mg Documented By: KOFI Melatonin (Melatonin 3 Mg Tab) 3 mg PO HS PRN PRN Reason: Sleep Stop: 07/02/23 01:18 Last Admin: 06/02/23 02:33 Dose: 3 mg Documented By: KARIE Metoprolol Succinate (Metoprolol Succ 50mg Ext Rel Tab) 50 mg PO QAM [facility] Stop: 07/01/23 08:59 Last Admin: 06/03/23 08:56 Dose: 50 mg Documented By: Admin: 06/02/23 10:16 Dose: 50 mg Documented By: Admin: 06/01/23 09:48 Dose: 50 mg Documented By: KOFI Miscellaneous (Remove Nicoderm Patch) 1 each N/A DAILY@0859 [facility] Stop: 07/02/23 08:58 Last Admin: 06/03/23 09:05 Dose: 1 each Documented By: Admin: 06/02/23 10:35 Dose: Not Given Documented By: TARA Nicotine (Nicotine 21 Mg/24 Hr Tdsy) 21 mg TD QAM [facility] Stop: 07/01/23 14:29 Last Admin: 06/03/23 08:56 Dose: 21 mg Documented By: Admin: 06/02/23 10:36 Dose: 21 mg Documented By: Admin: 06/01/23 14:44 Dose: 21 mg Documented By: DEMETRIAW Oxycodone HCl (Oxycodone Hcl Ir 5 Mg Tab (Immediate Release)) 5 mg PO Q4H PRN PRN Reason: Pain Stop: 06/15/23 03:17 Last Admin: 06/02/23 18:50 Dose: 5 mg Documented By: Admin: 06/02/23 12:50 Dose: 5 mg Documented By: Admin: 06/01/23 09:50 Dose: 5 mg Documented By: KOFI Potassium Chloride (Potassium Chloride Crtab 20 Meq Tabcr) 20 meq PO QAM [facility] Stop: 07/02/23 08:59 Last Admin: 06/03/23 09:04 Dose: 20 meq Documented By: Admin: 06/02/23 10:16 Dose: 20 meq Documented By: TARA Rosuvastatin Calcium (Rosuvastatin Calcium 10 Mg Tab) [facility] [place] Stop: 07/01/23 08:59 Last Admin: 06/03/23 08:56 Dose: 10 mg Documented By: Admin: 06/02/23 10:17 Dose: 10 mg Documented By: Admin: 06/01/23 09:48 Dose: 10 mg Documented By: KOFI Thiamine HCl (Thiamine Hcl 100 Mg Tab) [facility] [place] Stop: 07/01/23 08:59 Last Admin: 06/03/23 08:57 Dose: 100 mg Documented By: Admin: 06/02/23 10:17 Dose: 100 mg Documented By: Admin: 06/01/23 09:48 Dose: 100 mg Documented By: KOFI Trazodone HCl (Trazodone Hcl 100 Mg Tab) 100 mg PO HS [facility] Stop: 07/01/23 20:59 Last Admin: 06/02/23 20:02 Dose: 100 mg Documented By: SAHARA(2) Admin: 06/01/23 20:11 Dose: Not Given Documented By: KARIE Umeclidinium/Vilanterol (Umeclidinium/Vilanterol 62.5/25mcg 7 Puffs/Inhaler) 1 puffs INH DAILY SARA Stop: 07/01/23 08:59 Last Admin: 06/03/23 09:05 Dose: 1 puffs Documented By: Admin: 06/02/23 12:32 Dose: 1 puffs Documented By: Admin: 06/01/23 09:48 Dose: 1 puffs Documented By: KOFI Warfarin Sodium (Warfarin Sod 10 Mg Tab) 10 mg PO SuMoWeThFrSa@1600 [facility] Stop: 07/02/23 16:14 Last Admin: 06/02/23 17:24 Dose: 10 mg Documented By: TARA Discontinued Medications Thiamine HCl 200 mg/ Sodium (Chloride) 52 mls @ 210 mls/hr IV NOW STA Stop: 05/31/23 21:14 Last Infusion: 05/31/23 23:05 Dose: Infused Documented By: Admin: 05/31/23 22:43 Dose: 210 mls/hr Documented By: SP Sodium Chloride (Nss) 500 mls @ 100 mls/hr IV .Q5H STA Stop: 06/01/23 03:08 Last Infusion: 06/01/23 04:26 Dose: Infused Documented By: Admin: 05/31/23 22:45 Dose: 100 mls/hr Documented By: SP Magnesium Sulfate/Dextrose (Magnesium Sulfate / D5w) 1 gm in 100 mls @ 50 mls/hr IV Q2H SARA Stop: 06/01/23 06:59 Last Infusion: 06/01/23 10:00 Dose: Infused Documented By: Admin: 06/01/23 06:49 Dose: 50 mls/hr Documented By: Infusion: 06/01/23 06:48 Dose: Infused Documented By: IDKiarra Admin: 06/01/23 04:29 Dose: 50 mls/hr Documented By: LUIS Magnesium Sulfate/Dextrose (Magnesium Sulfate / D5w) 1 gm in 100 mls @ 50 mls/hr IV Q2H SARA Stop: 06/02/23 12:59 Last Infusion: 06/02/23 15:08 Dose: Infused Documented By: Admin: 06/02/23 12:33 Dose: 50 mls/hr Documented By: Infusion: 06/02/23 12:13 Dose: Infused Documented By: Admin: 06/02/23 10:13 Dose: 50 mls/hr Documented By: TARA Magnesium Sulfate/Dextrose (Magnesium Sulfate / D5w) 1 gm in 100 mls @ 50 mls/hr IV Q2H [facility] Stop: 06/03/23 12:29 Last Infusion: 06/03/23 11:41 Dose: Infused Documented By: Admin: 06/03/23 10:17 Dose: 50 mls/hr Documented By: Infusion: 06/03/23 10:17 Dose: Infused Documented By: Admin: 06/03/23 09:04 Dose: 50 mls/hr Documented By: YANNA Potassium Chloride (Potassium Chloride Crtab 20 Meq Tabcr) 40 meq PO NOW STA Stop: 06/02/23 08:51 Last Admin: 06/02/23 10:12 Dose: 40 meq Documented By: RRR Imaging Data Radiologist's Impression: Head CT 05/31/23 19:34 Exam(s): CT HEAD Without Contrast EXAM: CT Head Without Intravenous Contrast CLINICAL HISTORY: Reason for exam: KNOWN SUBDURAL 1 MONTH AGO. TECHNIQUE: Axial computed tomography images of the head/brain without intravenous contrast. CTDI is 36.31 mGy and DLP is 624.41 mGy-cm. Automated exposure control was utilized for the study. A dose lowering technique was utilized adhering to the principles of ALARA. COMPARISON: 05/07/2023 FINDINGS: Brain: Mild periventricular disease white matter disease likely related to microangiopathy. No hemorrhage. Ventricles: Unremarkable. No ventriculomegaly. Bones/joints: Unremarkable. No acute fracture. Soft tissues: Unremarkable. Sinuses: Opacification of the right sphenoid sinus, left maxillary sinus, and posterior right ethmoid air cells. Mastoid air cells: Unremarkable as visualized. No mastoid effusion. IMPRESSION: No acute findings in the head/brain. Electronically signed by: Ángel Scott M.D. 05/31/23 20:[address] 05/31/23 19:34 Exam(s): CT PELVIS Without Contrast EXAM: CT Pelvis Without Intravenous Contrast CLINICAL HISTORY: Reason for exam: PELVIC FRACTURE. TECHNIQUE: Axial computed tomography images of the pelvis without intravenous contrast. CTDI is 12.83 mGy and DLP is 339.81 mGy-cm. Automated exposure control was utilized for the study. A dose lowering technique was utilized adhering to the principles of ALARA. COMPARISON: No relevant prior studies available. FINDINGS: Bowel: Unremarkable. No obstruction. No mucosal thickening. Appendix: No findings to suggest acute appendicitis. Intraperitoneal space: Unremarkable. No free air. No significant fluid collection. Bladder: Unremarkable. No stones. Reproductive: Unremarkable as visualized. Bones/joints: Left sacral ala fracture. Left pubic symphysis and comminuted left inferior pubic rami fractures. No dislocation. Soft tissues: Unremarkable. Vasculature: Unremarkable. No lower abdominal aortic aneurysm. Lymph nodes: Unremarkable. No enlarged lymph nodes. IMPRESSION: 1. Left sacral ala fracture. 2. Left pubic symphysis and comminuted left inferior pubic rami fractures. Electronically signed by: Ángel Scott M.D. 05/31/23 20:53 PM Chest X-Ray 05/31/23 21:05 XR chest 1V portable HISTORY: hyponatremia COMPARISON: Chest 08/15/2022. FINDINGS: No pneumothorax. No pleural effusions. The heart is mildly enlarged. This remains unchanged. Mild interstitial thickening which is likely chronic. No evidence for pulmonary edema. There are calcifications within the aortic knob. No acute fractures identified. Postoperative changes again noted within the proximal right humerus. IMPRESSION: No significant change compared to the prior study. No acute process. ACT 112: Negative or not required by law. Electronically signed by: Jefferson Vasquez M.D. 06/01/2023 6:44 AM Discharge Plan Visit Data Chief Complaint: Hip Pain Stated Complaint: FALL POSS FX PELVIS ED Provider: Juan Richmond Discharge Problem: Hyponatremia, Fall, History of alcohol abuse, Closed sacral fracture, Closed fracture of pubic ramus Patient Disposition: Admitted As Inpatient Discharge Instructions Interventions: ED Discharge Assessment Last Done: 06/01/23 04:46 Discharge Problem: Fall Qualifiers: Encounter type: initial encounter Qualified Code(s): W19.XXXA - Unspecified fall, initial encounter Closed sacral fracture Qualifiers: Encounter type: initial encounter Closed fracture of pubic ramus Qualifiers: Encounter type: initial encounter Laterality: left Qualified Code(s): S32.592A - Other specified fracture of left pubis, initial encounter for closed fracture
[2023-05-31 20:35] LABS: Alanine Aminotransferase 10 U/L (7-52); Albumin Globulin Ratio 1.1 (0.9-2); Alkaline Phosphatase 179 U/L (34-104); Anion Gap 11 (3-11); Aspartate Aminotransferase 22 U/L (13-39); BUN Creatinine Ratio 27.9 (10-20); Bilirubin,Total 0.9 mg/dl (0.2-1.0); Blood Urea Nitrogen 12 mg/dl (6-23); Calcium 9.5 mg/dl (8.6-10.3); Carbon Dioxide 24 mmol/L (21-32); Chloride 92 mmol/L (98-107); Est GFR (African American) 119.4 ml/min; Est GFR (Non-African American) 103.1 ml/min; Globulin 3.8 gm/dl (2.5-4.0); Glucose 129 mg/dl (70-99(Fasting)); Potassium 3.8 mmol/L (3.5-5.1); Sodium 127 mmol/L (136-145); Total Protein 7.8 gm/dl (6.0-8.3)
[2023-05-31 20:46] LABS: INR 3.8 (0.9-1.1); Partial Thromboplastin Ratio 1.4; Partial Thromboplastin Time 39 Seconds (21-31); Prothrombin Time 38.5 Seconds (9.0-12.0)
--- NOTE | 2023-05-31 20:47 | CT Scan Report ---
Exam(s): CT HEAD Without Contrast EXAM: CT Head Without Intravenous Contrast CLINICAL HISTORY: Reason for exam: KNOWN SUBDURAL 1 MONTH AGO. TECHNIQUE: Axial computed tomography images of the head/brain without intravenous contrast. CTDI is 36.31 mGy and DLP is 624.41 mGy-cm. Automated exposure control was utilized for the study. A dose lowering technique was utilized adhering to the principles of ALARA. COMPARISON: 05/07/2023 FINDINGS: Brain: Mild periventricular disease white matter disease likely related to microangiopathy. No hemorrhage. Ventricles: Unremarkable. No ventriculomegaly. Bones/joints: Unremarkable. No acute fracture. Soft tissues: Unremarkable. Sinuses: Opacification of the right sphenoid sinus, left maxillary sinus, and posterior right ethmoid air cells. Mastoid air cells: Unremarkable as visualized. No mastoid effusion. IMPRESSION: No acute findings in the head/brain. Electronically signed by: Ángel Scott M.D. 05/31/23 20:47 PM
[2023-05-31 20:52] LABS: Magnesium 1.4 mg/dl (1.7-2.4)
--- NOTE | 2023-05-31 20:54 | CT Scan Report ---
Exam(s): CT PELVIS Without Contrast EXAM: CT Pelvis Without Intravenous Contrast CLINICAL HISTORY: Reason for exam: PELVIC FRACTURE. TECHNIQUE: Axial computed tomography images of the pelvis without intravenous contrast. CTDI is 12.83 mGy and DLP is 339.81 mGy-cm. Automated exposure control was utilized for the study. A dose lowering technique was utilized adhering to the principles of ALARA. COMPARISON: No relevant prior studies available. FINDINGS: Bowel: Unremarkable. No obstruction. No mucosal thickening. Appendix: No findings to suggest acute appendicitis. Intraperitoneal space: Unremarkable. No free air. No significant fluid collection. Bladder: Unremarkable. No stones. Reproductive: Unremarkable as visualized. Bones/joints: Left sacral ala fracture. Left pubic symphysis and comminuted left inferior pubic rami fractures. No dislocation. Soft tissues: Unremarkable. Vasculature: Unremarkable. No lower abdominal aortic aneurysm. Lymph nodes: Unremarkable. No enlarged lymph nodes. IMPRESSION: 1. Left sacral ala fracture. 2. Left pubic symphysis and comminuted left inferior pubic rami fractures. Electronically signed by: Ángel Scott M.D. 05/31/23 20:53 PM
[2023-05-31 20:57] LABS: Phosphorus 3.8 mg/dl (2.5-4.9)
[2023-05-31] MEDS ORDERED: THIAMINE HCL 200 MG in SODIUM CHLORIDE 0.9% 50 ML IV STA (21:00)
[2023-05-31] MEDS ORDERED: SODIUM CHLORIDE 0.9% 500 ML IV STA (22:09)
--- NOTE | 2023-06-01 02:58 | History & Physical Report ---
Date of Service June 01, 2023 Assessment & Plan (1) Hyponatremia: Plan: Acute on chronic hyponatremia hx SIADH, alcoholism as per records. Traumatic pelvic fracture History ambulatory dysfunction Recurrent falls chronic diastolic heart failure (EF 55%, TTE 2022), equivocal volume status A. fib on Coumadin, rate controlled, INR supratherapeutic after Coumadin resumed last week following Neurology recommendations valvular heart disease (severe MR, mild AR/TR, mitral valve prolapse) hx PAD hypertension, stable hyperlipidemia, on statin Rx COPD, pulmonary hypertension, lung status at baseline breast cancer left status post surgery/chemoradiation history of seizure disorder, stable on recent Keppra Rx past history of subdural hematoma anxiety/mood disorder, at baseline ongoing tobacco abuse Medical telemetry Careful correction of sodium w NSS hold home diuretics for now Nephrology consult if without improvement Continue 1.2 L daily fluid restriction Orthopedics consult pelvic fracture (Patient known to [facility]) PT OT eval after evaluation by orthopedics. Hold Coumadin for now Consider obtaining Cardiology input regarding safety of resuming anticoagulation inpatient given recurrent falls, ambulatory dysfunction, and past history of traumatic subdural hematoma (Patient known to [facility].) DT precautions, CATHY S at risk protoco Nicotine patch PRN DVT prophylaxis. Teds while Coumadin on hold if INR less than 2 RE SCDs contraindicated with history of PAD Full code Patient requesting updates from providers. Mr. Jai Puente, contact #[phone]. Text document was generated using [employer] voice recognition software. It may contain grammatical or spelling errors. Kindly contact undersigned for clarification of any documentation item in question. History of Present Illness Chief Complaint: Abnormal x-rays Primary Care Provider: AMRU Matias History obtained from patient and records. Medical history significant for chronic diastolic heart failure (EF 55%, TTE 2022), A. fib on Coumadin, valvular heart disease (severe MR, mild AR/TR, mitral valve prolapse), PAD, hypertension, hyperlipidemia, COPD, pulmonary hypertension, breast cancer left status post surgery/chemoradiation, chronic hyponatremia, history of seizure disorder, past history of subdural hematoma, anxiety/mood disorder, chronic thrombocytopenia, ambulatory dysfunction, ongoing tobacco/alcohol abuse as per records Recent confinement last month for hyponatremia in the setting of alcoholism. Patient discharged on Lasix and daily fluid restriction recommendations of 1.2 L. Keppra also initiated during confinement for seizures. MRI showed subdural hemorrhage. Coumadin held on discharge following neurology recommendations. 2 weeks ago, patient fell backwards landing on her bottom and resulting in head trauma. Patient tried to get up and walk around without the help of her which she is not supposed to do. No syncope or LOC. No chest pain or SOB. Achy headache and dizziness and pelvic pain worse on motion following fall. Episodic EtOH intake. Compliant with fluid restriction. Patient seen at PCP's office last week. Outpatient CT head showed resolution of small subdural hematoma at the right cerebral convexity and tentorial leaflet. No evidence of new intracranial hemorrhage. Coumadin resumed following [facility] Neurology recommendations. Outpatient left hip and pelvic x-rays eventually read as: Newly demonstrated displaced fracture of the left pelvis including superior displacement of the left superior pubic ramus. This is incompletely characterized, but would recommend further evaluation initially with pelvis radiographs, and consideration for pelvic CT. Multilevel lumbar compression fracture deformities appearing essentially unchanged. Interval displaced fracture of the left superior and inferior pubic rami, pattern of fracture is suggestive of instability, recommend referral to emergency department, assessment and consideration of trauma imaging to assess for associated traumatic injuries. Patient directed to ER for evaluation. 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 Allergies Allergy/AdvReac Type Severity Reaction Status Date / Time Sulfa (Sulfonamide Allergy Intermediate Rash Verified 05/31/23 20:58 Antibiotics) trimethoprim Allergy Intermediate Rash Verified 05/31/23 20:58 Home Medications Medication Instructions Recorded Confirmed Type folic acid 400 mcg tablet 0.4 mg PO DAILY 01/02/20 05/31/23 History thiamine HCl (vitamin B1) 100 mg 100 mg PO QAM 01/02/20 05/31/23 History tablet (Vitamin B-1) ammonium lactate 12 % lotion 1 applic topical DAILY 08/09/22 05/31/23 History rosuvastatin 10 mg tablet 10 mg PO QAM 08/09/22 05/31/23 History acetaminophen 500 mg tablet 500 mg PO DIRECTED PRN Pain 05/02/23 05/31/23 History (Tylenol Extra Strength) albuterol sulfate 2.5 mg/3 mL 2.5 mg inhalation DIRECTED PRN 05/02/23 05/31/23 History (0.083 %) solution for nebulization NEEDED fluticasone fur. 100 mcg-umeclid 1 inh inhalation DAILY 05/02/23 05/31/23 History 62.5 mcg-vilant 25 mcg inhalat.powder (Trelegy Ellipta) lidocaine 5 % topical patch 1 patch topical DAILY PRN Pain 05/02/23 05/31/23 History magnesium oxide 200 mg PO DAILY 05/02/23 05/31/23 History metoprolol succinate 50 mg 50 mg PO QAM 05/02/23 05/31/23 History tablet,extended release 24 hr trazodone 100 mg tablet 100 mg PO HS 05/02/23 05/31/23 History warfarin 10 mg tablet See Rx Instructions .Route .COMPLEX 05/02/23 05/31/23 History furosemide 20 mg tablet 20 mg PO BID17 #60 tabs 05/07/23 05/31/23 Rx levetiracetam 500 mg tablet 500 mg PO BID #60 tabs 05/07/23 05/31/23 Rx (Keppra) potassium chloride 20 mEq 20 meq PO QAM #30 tabs 05/07/23 05/31/23 Rx tablet,extended release(part/cryst) Past Med/Surg History Medical History Seizures On anticoagulant therapy warfarin daily Chronic diastolic (congestive) heart failure Hypomagnesemia Hyponatremia chronically low. Liver enzyme elevation Cancer LEFT BREAST (CHEMO AND RADIATION) Anemia Migraine Left ventricular enlargement BEING MONITORED BY ASHLY DUMONT Hypertension Chronic obstructive pulmonary disease Afib on warfarin/metoprolol---follows with Dr. Valdez Tobacco use disorder Surgical History History of bilateral cataract extraction History of surgery right femur fx repair 11/24/18 @ [facility] Hx of shoulder surgery RT SHOULDER (S/P FX) History of section X1 History of colonoscopy History of partial mastectomy LEFT History of tooth extraction Family History Other Cancer Heart disease No family history of adverse response to anesthesia Social History Smoking Status: Current every day smoker Tobacco Type: Cigarettes Cigarettes Per Day: 20 (advised); Second Hand Exposure: Yes; Do You Dip or Chew Tobacco: No; Hx Alcohol Use: Yes Alcohol type: beer Alcohol Intake Frequency: 4 or More x per/Week Hx Substance Use: No Preferred Language: Portuguese Communication Ability: Effective Raw Sampler Required: No Beliefs That Will Affect Care: None marital status: Current Living Situation: Spouse How many Children do You have: 3 Other Information That Helps Us Care for You: No Feels Safe at Home: Yes Safety Concerns: Feels Safe At This Time Assistive Devices: Glasses Review of Systems Review of Systems: As per HPI, all other systems reviewed and negative Physical Exam Physical Exam: GENERAL: Slightly uncomfortable, pleasant, no respiratory distress SKIN: Normal color, warm HEENT: Sikes palpebral conjunctivae, no ptosis, dry buccal mucosa NECK : Supple, no tenderness CHEST : Decreased breath sounds, no tenderness HEART : Irregular, systolic murmur ABDOMEN: Some distention, left pelvic tenderness EXTREMITIES : No LE tenderness, no LE swelling NEUROLOGIC : Coherent, no facial asymmetry, gait and stance not assessed Results & Data Results & Data Vital Signs (Past 12 Hours) Vital Signs Temp Pulse Pulse Resp BP BP Pulse Ox 05/31/23 23:17 86 05/31/23 22:47 85 18 118/70 95 05/31/23 19:25 36.8 C 103 H 16 120/86 97 O2 Del Method 05/31/23 23:17 05/31/23 22:47 Room Air 05/31/23 19:25 Room Air Laboratory Results Laboratory Results WBC 8.47 K/ul (4.8-10.8) 05/31/23 20:00 RBC 4.47 M/uL (4.20-5.40) 05/31/23 20:00 Hgb 14.2 g/dl (12.0-16.0) 05/31/23 20:00 Hct 41.6 % (37.0-47.0) 05/31/23 20:00 MCV 93.1 fL (80.0-100.0) 05/31/23 20:00 MCH 31.8 pg (25.0-34.0) 05/31/23 20:00 MCHC 34.1 g/dL (32.0-36.0) 05/31/23 20:00 RDW Std Deviation 48.7 fL (36.4-46.3) H 05/31/23 20:00 RDW Coeff of Saw 14.1 % (11.5-14.5) 05/31/23 20:00 Plt Count 303 K/uL (130-400) 05/31/23 20:00 MPV 9.4 fL (9.4-12.4) 05/31/23 20:00 Immature Gran % (Auto) 0.4 % 05/31/23 20:00 Neut % (Auto) 71.2 % 05/31/23 20:00 Lymph % (Auto) 19.8 % 05/31/23 20:00 [place] % (Auto) 7.2 % 05/31/23 20:00 Eos % (Auto) 0.7 % 05/31/23 20:00 Baso % (Auto) 0.7 % 05/31/23 20:00 Neut # (Auto) 6.03 K/uL (1.40-6.50) 05/31/23 20:00 Lymph # (Auto) 1.68 K/uL (1.20-3.40) 05/31/23 20:00 [place] # (Auto) 0.61 K/uL (0.11-0.59) H 05/31/23 20:00 Eos # (Auto) 0.06 K/uL (0.00-0.50) 05/31/23 20:00 Baso # (Auto) 0.06 K/uL (0.00-0.20) 05/31/23 20:00 Immature Gran # (Auto) 0.03 K/uL (0.01-0.20) 05/31/23 20:00 PT 38.5 Seconds (9.0-12.0) H 05/31/23 20:00 INR 3.8 (0.9-1.1) H 05/31/23 20:00 APTT 39 Seconds (21-31) H 05/31/23 20:00 PTT Ratio 1.4 05/31/23 20:00 Sodium 127 mmol/L (136-145) L 05/31/23 20:00 Potassium 3.8 mmol/L (3.5-5.1) 05/31/23 20:00 Chloride 92 mmol/L (98-107) L 05/31/23 20:00 Carbon Dioxide 24 mmol/L (21-32) 05/31/23 20:00 Anion Gap 11 (3-11) 05/31/23 20:00 BUN 12 mg/dl (6-23) 05/31/23 20:00 Creatinine 0.43 mg/dl (0.6-1.2) L 05/31/23 20:00 Est Cr Clr Drug Dosing Not Reportable 05/31/23 20:00 Est GFR ( Amer) 119.4 ml/min 05/31/23 20:00 Est GFR (Non-Af Amer) 103.1 ml/min 05/31/23 20:00 BUN/Creatinine Ratio 27.9 (10-20) H 05/31/23 20:00 Glucose 129 mg/dl (70-99(Fasting)) H 05/31/23 20:00 Calcium 9.5 mg/dl (8.6-10.3) 05/31/23 20:00 Phosphorus 3.8 mg/dl (2.5-4.9) 05/31/23 20:00 Magnesium 1.4 mg/dl (1.7-2.4) L 05/31/23 20:00 Total Bilirubin 0.9 mg/dl (0.2-1.0) 05/31/23 20:00 AST 22 U/L (13-39) 05/31/23 20:00 ALT 10 U/L (7-52) 05/31/23 20:00 Alkaline Phosphatase 179 U/L (34-104) H 05/31/23 20:00 Total Protein 7.8 gm/dl (6.0-8.3) 05/31/23 20:00 Albumin 4.0 gm/dl (3.4-5.0) 05/31/23 20:00 Globulin 3.8 gm/dl (2.5-4.0) 05/31/23 20:00 Albumin/Globulin Ratio 1.1 (0.9-2) 05/31/23 20:00 Ethyl Alcohol mg/dL < 10.0 mg/dl (<10.0) 05/31/23 20:[address] 05/31/23 19:34 Exam(s): CT HEAD Without Contrast EXAM: CT Head Without Intravenous Contrast CLINICAL HISTORY: Reason for exam: KNOWN SUBDURAL 1 MONTH AGO. TECHNIQUE: Axial computed tomography images of the head/brain without intravenous contrast. CTDI is 36.31 mGy and DLP is 624.41 mGy-cm. Automated exposure control was utilized for the study. A dose lowering technique was utilized adhering to the principles of ALARA. COMPARISON: 05/07/2023 FINDINGS: Brain: Mild periventricular disease white matter disease likely related to microangiopathy. No hemorrhage. Ventricles: Unremarkable. No ventriculomegaly. Bones/joints: Unremarkable. No acute fracture. Soft tissues: Unremarkable. Sinuses: Opacification of the right sphenoid sinus, left maxillary sinus, and posterior right ethmoid air cells. Mastoid air cells: Unremarkable as visualized. No mastoid effusion. IMPRESSION: No acute findings in the head/brain. Electronically signed by: Ángel Scott M.D. 05/31/23 20:[address] 05/31/23 19:34 Exam(s): CT PELVIS Without Contrast EXAM: CT Pelvis Without Intravenous Contrast CLINICAL HISTORY: Reason for exam: PELVIC FRACTURE. TECHNIQUE: Axial computed tomography images of the pelvis without intravenous contrast. CTDI is 12.83 mGy and DLP is 339.81 mGy-cm. Automated exposure control was utilized for the study. A dose lowering technique was utilized adhering to the principles of ALARA. COMPARISON: No relevant prior studies available. FINDINGS: Bowel: Unremarkable. No obstruction. No mucosal thickening. Appendix: No findings to suggest acute appendicitis. Intraperitoneal space: Unremarkable. No free air. No significant fluid collection. Bladder: Unremarkable. No stones. Reproductive: Unremarkable as visualized. Bones/joints: Left sacral ala fracture. Left pubic symphysis and comminuted left inferior pubic rami fractures. No dislocation. Soft tissues: Unremarkable. Vasculature: Unremarkable. No lower abdominal aortic aneurysm. Lymph nodes: Unremarkable. No enlarged lymph nodes. IMPRESSION: 1. Left sacral ala fracture. 2. Left pubic symphysis and comminuted left inferior pubic rami fractures. Electronically signed by: Ángel Scott M.D. 05/31/23 20:53 PM Diagnostic Findings Chest x-ray as per my interpretation cardiomegaly EKG as per my interpretation : Rate 95, A-fib, LAD, LAFB, septal infarct, T wave flattening lateral and septal leads
--- OUTSIDE RECORDS SUMMARY | 2023-06-01 03:11 | External Medical Summary | Summary of Care ---
Author Name Unknown Organization [facility] Address [address] [facility] [place] [address] Phone [phone] Care Team Providers Care Smoke Jumper Name Role Phone NayaBritney britton Collette MAHONEY Primary Care Provider Reason for Visit * Reason Comments Outpatient Testing Encounter Details Date Type Department Care Team (Late st Contact Info) Description 05/29/2023 2:30 PM EST Laboratory Laboratory, [facility] [address] [facility] [place] [id number] [facility] [address] Chronic diastolic heart failure (HCC) Allergies Active Allergy Reactions Criticality Noted Date Comments Sulfa Antibiotics 11/03/2016 Trimethoprim 04/14/1997 rash documented as of this encounter (statuses as of 05/29/2023) Medications Medication Sig Dispensed Refills Start Date [...] severe Pain 30 Tablet 0 12/23/2022 Active Baclofen 10 MG Oral Tablet [...] at bedtime. 90 Tablet 1 04/13/2023 Active Metoprolol Succinate ER 50 MG Oral Tablet Extended Release 24 Hour (toPROL XL)Indications:Perma nent atrial fibrillation (HCC),History of alcohol abuse,Tobacco abuse,HTN, goal below 140/90,Hyponatremia, Valvular heart disease,PAD (peripheral artery disease) ([facility]),Dyslipidemia, goal LDL below 70 Take 1 Tablet [...] as directed 30 Tablet 4 04/14/2023 Active levETIRAcetam 500 MG Oral Tablet (Keppra) take 1 tablet (500 mg) orally twice a day 60 Tablet 0 05/07/2023 Active Additional Information Patient not taking.Reported on 05/25/2023 Ondansetron HCl 8 MG Oral Tablet (Zofran) Take by mouth every 8 hours as needed for Nausea. 0 Active Furosemide 20 MG Oral Tablet (Lasix) Take 2 Tablets by mouth in the morning and 2 Tablets before bedtime. 60 Tablet 0 05/26/2023 Active Potassium Chloride Aminah ER 20 MEQ Oral Tablet Extended Release Take 1 Tablet by mouth in the morning and 1 Tablet before bedtime. 60 Tablet 0 05/26/2023 Active Hospital, Clinic, or Other Facility Administered [...] as of this encounter (statuses as of 05/29/2023) Active Problems Problem Noted Date Diagnosed Date Hyponatremia 05/26/2023 Fall 05/26/2023 Subdural hemorrhage 05/26/2023 Moderate episode of recurrent major depressive d isorder 05/25/2023 Protein-calorie malnutrition 12/06/2022 Black tarry stools 09/30/2022 [...] as of this encounter (statuses as of 05/29/2023) Resolved Problems Problem Noted Date Diagnosed Date [...] as of this encounter (statuses as of 05/29/2023) Immunizations Name Administration Dates Next Due COVID-19 mRNA, LNP-s, No Pre serve, 2-Dose Series (ams AG) 04/22/2021,08/25/2020,08/04/2020 Pneumococcal Conjugate Vacc, 13 Valent (Prevnar) [...] refused pamphlet Alcohol Use Standard Drinks/Week Comments Not Currently 14 (1 standard drink = 0.6 oz pure alcohol) Last alcohol intake 08/09/22 PHQ-2 Answer [...] Care Team (Late st Contact Info) Description 06/07/2023 2:10 PM EST Office Visit Vascular Surgery, [facility] [address] [facility] [place] [address] Killian Gan MD [address] [place] [address] 06/07/2023 5:30 PM EST Anticoagulation Pharmacy, [facility] [address] [facility] [place] [address] [facility] [address] [facility] [place] [address] 06/30/2023 10:00 AM EST Office Visit Family Practice [facility] [address] [facility] [place] [address] Britney Ko CRNP [address] [place] [address] 10/02/2023 2:20 PM EDT Office Visit Nephrology, [place] [address] [facility] [place] [address] Dell Owen MD [address] [facility] [place], [place] [address] 10/24/2023 3:00 PM EDT Office Visit Rheumatology [facility] [address] [facility] [place] [address] Kayla Jerome CRNP [address] [place], [place] [address] 11/10/2023 10:00 AM EDT Office Visit Cardiology, [facility] [address] [place] [id number] Renetta Glynn PA-C [address] [place] [address] Pending Results Name Type Priority Associated Diagnoses Date /Time BASIC METABOLIC PANEL Lab Routine Chronic diastolic heart failure (HCC) 05/29/2023 2:21 PM EST MAGNESIUM Lab Routine Chronic diastolic heart failure (HCC) 05/29/2023 2:21 PM EST Scheduled Procedures Name Priority Associated [...] 12/02/2023 12/01/2022, 12/01/2022, 05/12/2017, Additional history exists Albumin/Creatinine Ratio 01/02/2024 01/01/2021 GFR 05/25/2024 05/25/2023, 04/21, 12/20/2022, Additional history exists O2 ASSESSMENT COMPLETED IN PAST YEAR FOR COPD 05/26/2024 05/26/2023 DXA Scan 12/31/2025 12/31/2018, 04/21, 05/08/2003 DTaP,Tdap,and [...] as of this encounter Visit Diagnoses Diagnosis Chronic diastolic heart failure (HCC) Chronic diastolic heart failure documented in this encounter Care Teams Smoke Jumper Relationship Specialty Start Date End Date Britney Ko CRNP [address] [place] [address] PCP - General Nurse Practitioner 09/22/21 documented as of this encounter
--- OUTSIDE RECORDS SUMMARY | 2023-06-01 03:11 | External Medical Summary ---
Author Name Unknown Address Unknown Organization [id number] [address] [place] [id number] Laboratory Report Ordering Provider Test Date Status CALISTA MENJIVAR 05/29/2023 14:21:36 Final Observation Date Value Abnormality Reference (Units ) Status BUN 05/29/2023 14:21:36 7 6-20 (mg/dL) Final Creatinine 05/29/2023 14:21:36 0.4 Below low normal 0.5-1.0 (mg/dL) Final Glomerular filtration rate/1.73 sq M.predicted [Volume Rate/Area] in Serum, Plasma or Blood by Creatinine-based formula (CKD-EPI) 05/29/2023 14:21:36 >90 >=60 (mL/min) Final eGFR is calculated based on the CKD-EPI 2020 equation SODIUM 05/29/2023 14:21:36 130 Below low normal 135 -146 (mmol/L) Final Potassium 05/29/2023 14:21:36 4.0 3.5-5.1 (m mol/L) Final Cl 05/29/2023 14:21:36 91 Below low normal 98- 107 (mmol/L) Final CO2 05/29/2023 14:21:36 23 22-32 (mmo l/L) Final Anion gap 05/29/2023 14:21:36 16 Above high normal 7- 15 (mmol/L) Final Glucose 05/29/2023 14:21:36 111 70-120 (mg /dL) Final Calcium 05/29/2023 14:21:36 9.4 8.4-10.2 ( mg/dL) Final Performing Location [facility] [address] [place] [id number]
--- OUTSIDE RECORDS SUMMARY | 2023-06-01 03:12 | External Medical Summary | Summary of Care ---
Author Name Unknown Organization [facility] Address [address] [facility] [place] [address] Phone [phone] Care Team Providers Care Banking Assistant Name Role Phone Britney Ko Primary Care Provider Reason for Referral * Precert (Within 24 hrs (call dept; emergent)) - Authorized Specialty Diagnoses / Procedures Referred By Marquita camargo Referred To Contact Radiology Diagnoses Subdural hemorrhage (HCC) Procedures CT HEAD/BRAIN WO CONTRAST CT HEAD/BRAIN W WO CONTRAST Britney Ko CRNP [address] [place] [address] Referral ID Status Reason Start Date Expiration Date V isits Requested Visits Authorized [id number] Authorized 05/25/2023 05/25/2023 999 999 * Evaluate & Treat - Unlimited Visits (Within 3 days (urgent)) - Pending Review Specialty Diagnoses / Procedures Referred By Marquita camargo Referred To Contact Neurological Surgery Diagnoses Subdural hemorrhage (HCC) Britney Ko CRNP [address] [place] [address] Referral ID Status Reason Start Date Expiration Date Visits Requested Visits Authorized [id number] Pending Review Specialty Services Required 05/25/[phone] Question Answer Referral Priority Within 3 days (urgent) Where should this appointment be scheduled? [facility] What condition is the patient being seen for? Other Comments Neurosurgery referral for subdural hematoma and resumption of warfarin Reason for Visit * Reason Comments Hospital Follow-Up PT HERE FOR HOSPITAL F/U FROM 05/07 FOR A FALL Encounter Details Date Type Department Care Team (Latest Contact Info) Description 05/25/2023 3:00 PM EST Office Visit 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); Protein-calorie malnutrition, unspecified severity (HCC); Moderate episode of recurrent major depressive disorder (HCC); Severe peripheral arterial disease (HCC); Acute low back pain with left-sided sciatica, unspecified back pain laterality Allergies Active Allergy Reactions Criticality Noted Date Comments Sulfa Antibiotics 11/03/2016 Trimethoprim 04/14/1997 rash documented as of this encounter (statuses as of 05/26/2023) Medications Medication Sig Dispensed Refills Start Date [...] on 05/02/2023 Lidocaine 5 % External Patch (Lidoderm)Indicati ons:Compression [...] disease) (HCC),Dyslipidemia , goal LDL below 70 Take 1 [...] hours as needed for Nausea. 0 Active traMADol HCl 50 MG Oral Tablet (Ultram) take 1 tablet (50 mg) orally twice a day As Needed for pain 11 Tablet 0 01/13/2023 4 Discontinue d(Medicatio n List Clean Up) Furosemide 20 MG Oral Tablet (Lasix) take 1 tablet (20 mg) orally twice daily 60 Tablet 0 05/07/2023 4 Discontinue d(Refill) Potassium Chloride Aminah ER 20 MEQ Oral Tablet Extended Release take 1 tablet (20 mEq) orally daily in the morning 30 Tablet 0 05/07/2023 4 Discontinue d(Refill) Hospital, Clinic, or Other Facility [...] as of this encounter (statuses as of 05/26/2023) Active Problems Problem Noted Date Diagnosed Date [...] as of this encounter (statuses as of 05/26/2023) Resolved Problems Problem Noted Date Diagnosed Date [...] as of this encounter (statuses as of 05/26/2023) Immunizations Name Administration Dates Next Due COVID-19 mRNA, LNP-s, No Pre serve, 2-Dose Series ([employer]) 04/22/2021,08/25/2020,08/04/2020 Pneumococcal Conjugate Vacc, 13 Valent (Prevnar) [...] Sign Reading Time Taken Comments Blood Pressure 140/82 05/25/2023 2:51 PM EST Pulse 104 05/25/2023 2:51 PM EST Temperature 36.7 C (98.1 F) 05/25/2023 2:51 PM ES T Respiratory Rate 16 05/25/2023 2:51 PM EST Oxygen Saturation 97% 05/25/2023 2:51 PM EST Inhaled Oxygen Concentration - - Weight 57.4 kg (126 lb 9.6 oz) 05/25/2023 2:51 P M EST Height 159.5 cm (5' 2.8") 05/25/2023 2:51 PM EST Body Mass Index 22.57 05/25/2023 2:51 PM EST documented in this encounter Progress Notes * Britney Ko CRNP - 05/25/2023 3:09 PM EST Follow up Family Medicine Visit CC: Chief Complaint Patient presents with Hospital Follow-Up PT HERE FOR HOSPITAL F/U FROM 05/07 FOR A FALL Accompanied by her today. History of Present Illness: Michelle Puente is a 68 year old female presenting for hospital follow up. She was hospitalized at [facility] due to hyponatremia. Sodium level was 122 on admission and 128 at discharge. She is not currently taking sodium. She does drink ETOH but only half beer yesterday. Before hospitalization she was not drinking more etoh before then. No longer having seizure like activity since hospitalization. Fell 2 times since hospitalized in April. She does not remember much about hospitalization. Social History Socioeconomic History Marital status: Spouse name: Not on file Number of children: Not on file Years of education: Not on file Highest education level: Not on file Occupational History Not on file Tobacco Use Smoking status: Every Day Packs/day: 1.00 Years: 44.00 Additional pack years: 0.00 Total pack years: 44.00 Types: Cigarettes Smokeless tobacco: Never Tobacco comments: 12/14/22 smokes about 1 pack a day - refused pamphlet Vaping Use Vaping Use: Never used Substance and Sexual Activity Alcohol use: Yes Alcohol/week: 14.0 standard drinks of alcohol Types: 14 12 oz of beer per [...] performed by Karine Gamez MD at OR [facility] BREAST BIOPSY Left 03/04/2015 Malignant neoplasm of left female breast (HCC)- US guided core biopsy of 2-3:00 of left breast revealed invasive carcinoma, NST, ER/UT-, Her-2 -, US guided core biopsy left axilla lymph node negativefor metastatic carcinoma BX LYMPH NODE DEEP AXIL Left 04/01/2015 BIOPSY LYMPH NODE DEEP AXILLARY OPEN performed by Karine Gamez MD at OR [facility] DELIVERY one delivery CHEMOTHERAPY Left 05/09/15-10/06/15 COLONOSCOPY W/ BIOPSY (RECTUM) 02/26/2007 hyperplastic repeat in 10 yrs COLONOSCOPY, DIAGNOSTIC (RECTUM) 05/12/2017 hyperplastic polyps, diverticulosis, repeat 10 yrs COLONOSCOPY, DIAGNOSTIC (RECTUM) 05/12/2017 COLONOSCOPY FLEXIBLE PROXIMAL DIAGNOSTIC performed by Al Rock MD at ENDOSCOPY [facility] COLONOSCOPY, DIAGNOSTIC (RECTUM) N/A 12/01/2022 severe diverticulosis/multiple polyps/biopsies show adenomatous polyps/recall 1 year/Colonoscopy/MN EXC BREAST LESION RADMARK Right 11/04/2020 EXCISION OF BREAST LESION RADIOLOGICAL MARKER performed by Karine Gamez MD at OR [facility] IDENTIFY SENTINEL NODE, RADIOACTIVE TRACER Left 04/01/2015 INJECTION PROCEDURE FOR IDENTIFICATION SENTINEL NODE performed by Karine Gamez MD at OR [facility] INSERTION OF LENS PROSTHESIS Left 03/21/2018 INSERTION OF LENS PROSTHESIS Right 04/04/2018 LIGATE/CUT OVIDUCT(S) Tubal Ligation MAMMOGRAM BREAST NEEDLE BIOPSY CORE RIGHT Right 08/13/2020 site one benign MAMMOGRAM BREAST NEEDLE BIOPSY CORE RIGHT Right 08/13/2020 site 2 complex sclerosing lesion. MASTECTOMY, PARTIAL Left 04/01/2015 04/01/2015MASTECTOMY PARTIAL performed by Karine Gamez MD at OR [facility] OTHER 05/14/2015 placement of a-port tunneled central venous access catheter with port [facility] Dr. Cohen 05/14/2015 RADIATION THERAPY Left 11/10/15-12/28/15 TREAT TROCHANTERIC FRACTURE W/IMPLANT Right 11/24/2018 rt trochanteric nail Outpatient Medications Marked as Taking for the 05/25/23 encounter (Office Visit) with Britney Ko CRNP Medication Sig Ondansetron HCl 8 MG Oral Tablet (Zofran) Take by mouth every 8 hours as needed for Nausea. Metoprolol Succinate ER 50 MG Oral Tablet Extended Release 24 Hour (toPROL XL) Take 1 Tablet by mouth in the morning. Rosuvastatin Calcium 20 MG Oral Tablet (Crestor) Take 1 Tablet by mouth in the morning. Warfarin Sodium 10 MG Oral Tablet (Coumadin) Take up to 1 tablet by mouth every evening as directed traZODone HCl 100 MG Oral Tablet (Desyrel) Take 1 Tablet by mouth at bedtime. Lidocaine 5 % External Patch (Lidoderm) Place 1 Patch over 12 hours topically on the skin daily. Place over area of pain from compression fracture. traMADol HCl 50 MG Oral Tablet (Ultram) Take 1 Tablet by mouth every 6 hours as needed for severe Pain Trelegy Ellipta 100-62.5-25 MCG/ACT Aerosol Powder Breath Activated (Dlciautjdkh-Cztsajoucdoi-Ozbzofocvd) Inhale 1 Puff by mouth. Ammonium Lactate 12 % External Lotion Apply to both feet once daily. Dispense 3 400g tubes. Magnesium Oxide 200 MG Oral Tablet Take by mouth 1 Tablet daily . Acetaminophen 325 MG CAPS Take 500 mg by mouth 2 times a day as needed for Pain, Mild or Pain, Moderate (Not to exceed 1000 mg per day). Folic Acid 400 MCG Tablet Take 1 Tablet by mouth in the morning. Thiamine Mononitrate (VITAMIN B1) 100 MG TABS Take by mouth. Current Facility-Administered Medications for the 05/25/23 encounter (Office Visit) with Libia Ko CRNP Medication Albuterol Sulfate (Proventil) (2.5 MG/3ML) 0.083% inhalation solution 2.5 mg Albuterol Sulfate (Proventil) (5 MG/ML) 0.5% *conc* inhalation solution 2.5 mg Review of patient's allergies indicates: Allergen Reactions Sulfa Antibiotics Trimethoprim rash Most Recent Immunizations Administered Date(s) Administered COVID-19 mRNA, LNP-s, No Preserve, 2-Dose Series ([employer]) 04/22/2021 Diptheria/Tetanus (Adult) 07/14/1997 Pneumococcal Conjugate Vacc, 13 Valent (Prevnar) 08/06/2018 Pneumococcal Conjugate Vaccine, 7 Valent 12/27/2011 Pneumococcal Polysaccharide PPV23 (Pneumovax) 01/23/2020 Season Influenza, Quad, PF, Adjuvanted, 65+ Yrs, IM (FLUAD) 01/23/2020 Seasonal Influenza, PF, 6 M & above, IM , (FluLaval or Fluzone) 03/06/2021 Seasonal Influenza, Quadrivalent Hd (Fluzone Hd) 03/01/2023 Seasonal Influenza, Quadrivalent, No Preserve, IM 03/30/2016 Seasonal Influenza, Split, IIV3, With Preserve, Inj 03/22/2013 Seasonal Influenza, Trivalent, Adjuvanted, 65+ yrs 02/20/2019 TDAP (age 10 and older)(Boostrix) 01/11/2017 TDAP (age 11 and older)(Adacel) 01/30/2007 Varicella Zoster Vaccine (Adult) 04/12/2013 Zoster Vaccine Recombinant (Shingrix) 01/23/2020 Review of Systems: Physical Exam: BP 140/82 (BP Site: Left Arm, BP Position: Sitting, BP Cuff Size: Regular) | Pulse 104 | Temp 36.7 C (98.1 F) (Tympanic) | Resp 16 | Ht 1.595 m (5' 2.8") | Wt 57.4 kg (126 lb 9.6 oz) | LMP 09/20/1999 | SpO2 97% | BMI 22.57 kg/m | BSA 1.59 m Physical Exam Constitutional: Comments: Lean, seated in WC HENT: Head: Normocephalic. Eyes: Pupils: Pupils are equal, round, and reactive to light. Cardiovascular: Rate and Rhythm: Normal rate. Rhythm irregular. Comments: Chronic robertson, violaceous skin changes noted scaling Pulmonary: Effort: Pulmonary effort is normal. Breath sounds: Decreased breath sounds present. Abdominal: General: Bowel sounds are normal. Palpations: Abdomen is soft. Tenderness: There is no abdominal tenderness. Musculoskeletal: General: Normal range of motion. Cervical back: Normal range of motion. Right lower le+ Edema present. Left lower le+ Edema present. Neurological: General: No focal deficit present. Mental Status: She is alert and oriented to person, place, and time. Psychiatric: Mood and Affect: Mood normal. Behavior: Behavior normal. Thought Content: Thought content normal. Judgment: Judgment normal. Assessment and Plan: 1. Subdural hemorrhage (HCC) S/p fall through tempered glass at home S/p hospital admission Coumadin has been held since hospital discharge on 05/07/2023. Stat CT today showing no new bleed Ask A Doc to neuro - NEUROSURGERY ADULT REFERRAL OP - CT HEAD/BRAIN WO CONTRAST 2. Fall, initial encounter Multiple falls at home in the recent past - XR L SPINE AP AND LATERAL 3. Hyponatremia Chronic 128 on discharge Nephrology appt pending Limit fluid intake She states she has not had a drink in the last month 4. Chronic atrial fibrillation (HCC) Rate controlled Off of warfarin since 05-07-2023 due to brain bleed. Patient aware of signs and symptoms of which to seek care. She is aware off of coumadin causes her to have increased risk for CVA. 5. Chronic diastolic heart failure (HCC) Weight is up from hospital discharge On lasix and K, consider increase - BASIC METABOLIC PANEL; Future - MAGNESIUM; Future 6. COPD, group B, by GOLD 2017 classification (HCC) Stable Still smoking 7. 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) She stopped drinking 1 month ago Had 1/2 drink yesterday 8. Protein-calorie malnutrition, unspecified severity (HCC) 9. Moderate episode of recurrent major depressive disorder (HCC) 10. Severe peripheral arterial disease (HCC) 11. Acute low back pain with left-sided sciatica, unspecified back pain laterality S/p fall R/o fracture Continue lidocaine patch for pain - XR L SPINE AP AND LATERAL I have advised the patient to call our office incase of any worsening or new symptoms. I spent a total of 40-54 minutes (exact time 68 mins) on the date of service in preparation, delivery, and documentation of the care provided to Michelle Puente excluding any time spent in the performance of separately billed services. Ishan, MSN, [facility] Medicine documented in this encounter Plan of Treatment Upcoming Encounters Date Type Department Care Team (Late st Contact Info) Description 06/07/2023 2:10 PM EST Office Visit Vascular Surgery, [facility] [address] [place] [address] Killian Gan MD [address] [place] [address] 06/07/2023 5:30 PM EST Anticoagulation Pharmacy, [facility] [address] [place] [address] [facility] [address] [place] [address] 06/30/2023 10:00 AM EST Office Visit Family Practice [facility] [address] [place] [address] Britney Ko CRNP [address] [place] [address] 10/02/2023 2:20 PM EDT Office Visit Nephrology, [facility] [address] [facility] [place] [address] Dell Owen MD [address] [facility] [place] [address] 10/24/2023 3:00 PM EDT Office Visit Rheumatology [address] [place] [address] Kayla Jerome CRNP [address] [place] [address] [place] [address] 11/10/2023 10:00 AM EDT Office Visit Cardiology, [facility] [address] [facility] [place] [address] Renetta Glynn PA-C [address] [place] [address] Pending Results Name Type Priority Associated Diagnoses Date /Time XR L SPINE AP AND LATERAL Medical Imaging Routine Fall, initial encounter Acute low back pain with left-sided sciatica, unspecified back pain laterality 05/25/2023 4:15 PM EST Scheduled Orders Name Type Priority Associated Diagnoses Orde r Schedule BASIC METABOLIC PANEL Lab Routine Chronic diastolic heart failure (HCC) Expected: 05/25/2023 (Approximate), Expires: 05/24/2024 MAGNESIUM Lab Routine Chronic diastolic heart failure (HCC) Expected: 05/25/2023 (Approximate), Expires: 05/24/2024 Scheduled Procedures Name Priority Associated Diagnoses Date/Ti me COLONOSCOPY FLEXIBLE PROXIMA L DIAGNOSTIC Recall Encounter for screening colonoscopy Scheduled Referrals Name Type Priority Associated Diagnoses Order Schedule NEUROSURGERY ADULT REFERRAL OP Referral Within 3 days (urgent) Subdural hemorrhage (HCC) Ordered: 05/25/2023 Health Maintenance Due Date Last Done Comments Depression Screening 12/28/2021 12/28/2020 COVID-19 Vaccine ( season) 2023 04/22/2021, 08/25/2020, 08/04/2020 DISCUSS TOBACCO CESSATION (REFER TO SMARTSET #[id number]) 02/23/2023 02/23/2022 Mammogram 10/05/2023 10/04/2022, 10/21, 10/06/2020, Additional history exists COLONOSCOPY-ANNUAL AGES 18-100 12/02/2023 12/01/2022, 12/01/2022, 05/12/2017, Additional history exists Albumin/Creatinine Ratio 01/02/2024 01/01/2021 GFR 05/25/2024 05/25/2023, 04/21, 12/20/2022, Additional history exists O2 ASSESSMENT COMPLETED IN PAST YEAR FOR COPD 05/25/2024 05/26/2023 DXA Scan 12/31/2025 12/31/2018, 04/21, 05/08/2003 [...] Procedure Name Priority Date/Time Associated Diagnosis Comments CT HEAD/BRAIN WO CONTRAST STAT 05/25/2023 4:30 PM EST Subdural hemorrhage (HCC) documented in this encounter Results * CT HEAD/BRAIN WO CONTRAST (05/25/2023 4:30 PM EST) Anatomical Region Laterality Modality Head Computed Tomogra phy 05/25/2023 5:03 PM EST Impressions 05/25/2023 9:33 PM EST IMPRESSION 1. Resolution of the small subdural hematoma at the right cerebral convexity and tentorial leaflet. No evidence of new intracranial hemorrhage. 2. Nonspecific cerebral white matter disease suggesting chronic microvascular ischemic changes. 3. Chronic inflammatory changes in the paranasal sinuses and other chronic findings, as discussed.. I have personally reviewed this examination and agree with the resident/fellow physician's interpretation. Narrative 05/25/2023 9:[address] HEAD WITHOUT CONTRAST - 05/25/2023 HISTORY 68-year-old female with follow-up on subdural hematoma. TECHNIQUE Axial CT images of the head were obtained without contrast. Coronal and sagittal reconstructions are provided. COMPARISON MRI brain dated 05/04/2023 from outside hospital, images only. MRI brain dated 07/20/2016. FINDINGS Considering differences in imaging modality, previously depicted subdural collection along the right temporal convexity and tentorial leaflet appears to have resolved. No evidence of new intracranial hemorrhage or an acute territorial infarct. Patchy hypoattenuation in the cerebral white is nonspecific, most suggestive of chronic microvascular ischemic changes. No hydrocephalus, downward herniation, midline shift, mass effect or extra-axial fluid collections are demonstrated. Basal cisterns are patent. Vascular calcification at the skull base. Duaz-rn-ozsarymt global brain volume loss is appreciated, with proportionate ventriculosulcal prominence. Changes of bilateral lens replacement. Mucosal thickening in the paranasal sinuses with non aerated right posterior ethmoid air cell and sphenoid sinus, and chronic osteitis. The mastoid air cells are clear. The calvarium is intact. Benign appearing slightly expansile area of lower density in the left parietal calvarium. Procedure Note Aaron Carter MD - 05/25/[address] HEAD WITHOUT CONTRAST - 05/25/2023 HISTORY 68-year-old female with follow-up on subdural hematoma. TECHNIQUE Axial CT images of the head were obtained without contrast. Coronal andsagittal reconstructions are provided. COMPARISON MRI brain dated 05/04/2023 from outside hospital, images only. MRI brain dated 07/20/2016. FINDINGS Considering differences in imaging modality, previously depicted subduralcollection along the right temporal convexity and tentorial leafletappears to have resolved. No evidence of new intracranial hemorrhage or an acute territorialinfarct. Patchy hypoattenuation in the cerebral white is nonspecific,most suggestive of chronic microvascular ischemic changes. No hydrocephalus, downward herniation, midline shift, mass effect orextra-axial fluid collections are demonstrated. Basal cisterns arepatent. Vascular calcification at the skull base. Idqs-dv-mvimzyiz global brain volume loss is appreciated, withproportionate ventriculosulcal prominence. Changes of bilateral lens replacement. Mucosal thickening in theparanasal sinuses with non aerated right posterior ethmoid air cell andsphenoid sinus, and chronic osteitis. The mastoid air cells are clear.The calvarium is intact. Benign appearing slightly expansile area oflower density in the left parietal calvarium. IMPRESSION IMPRESSION 1. Resolution of the small subdural hematoma at the right cerebralconvexity and tentorial leaflet. No evidence of new intracranialhemorrhage. 2. Nonspecific cerebral white matter disease suggesting chronicmicrovascular ischemic changes. 3. Chronic inflammatory changes in the paranasal sinuses and other chronicfindings, as discussed.. I have personally reviewed this examination and agree with the resident/fellow physician's interpretation. 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
--- OUTSIDE RECORDS SUMMARY | 2023-06-01 03:12 | External Medical Summary | Summary of Care ---
Author Name Unknown Organization [facility] Address [address] [facility] [address] Phone [phone] Care Team Providers Care Bevel Polisher Name Role Phone Nayareba Britney MAHONEY Primary Care Provider Reason for Visit * Reason Comments Outpatient Testing Encounter Details Date Type Department Care Team (Latest Contact Info) Description 05/25/2023 2:30 PM EST Laboratory [facility], 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; HTN, goal below 140/90 Allergies Active Allergy Reactions Criticality Noted Date Comments Sulfa Antibiotics 11/03/2016 Trimethoprim 04/14/1997 rash documented as of this encounter (statuses as of 05/25/2023) Medications Medication Sig Dispensed Refills Start Date [...] as directed 30 Tablet 4 04/14/2023 Active Furosemide 20 MG Oral Tablet (Lasix) take 1 tablet (20 mg) orally twice daily 60 Tablet 0 05/07/2023 Active levETIRAcetam 500 MG Oral Tablet (Keppra) take 1 tablet (500 mg) orally twice a day 60 Tablet 0 05/07/2023 Active Potassium Chloride Aminah ER 20 MEQ Oral Tablet Extended Release take 1 tablet (20 mEq) orally daily in the morning 30 Tablet 0 05/07/2023 Active traMADol HCl 50 MG Oral Tablet (Ultram) take 1 tablet (50 mg) orally twice a day As Needed for pain 11 Tablet 0 01/13/2023 Discontinue d(Medicatio n List Clean Up) Hospital, Clinic, or Other Facility Administered Medication Ordered Dose Route Frequency Start Date End Date Status Albuterol Sulfate (Proventil) (2.5 MG/3ML) 0.083% inhalation solution 2.5 mgIndications:COPD, group B, by GOLD 2017 classification ([facility]) 2.5 mg NEBULIZER PRN 12/08/2022 12/08/2023 Acti ve Albuterol Sulfate (Proventil) (5 MG/ML) 0.5% *conc* inhalation solution 2.5 mgIndications:COPD, group B, by GOLD 2017 classification ([facility]) 2.5 mg NEBULIZER PRN 12/08/2022 12/08/2023 Acti ve documented as of this encounter (statuses as of 05/25/2023) Active Problems Problem Noted Date Diagnosed Date Moderate episode of recurrent major depressive d [...] as of this encounter (statuses as of 05/25/2023) Resolved Problems Problem Noted Date Diagnosed Date [...] as of this encounter (statuses as of 05/25/2023) Immunizations Name Administration Dates Next Due COVID-19 mRNA, LNP-s, No Pre serve, 2-Dose Series ([facility]) 04/22/2021,08/25/2020,08/04/2020 Pneumococcal Conjugate Vacc, 13 Valent (Prevnar) [...] Description 05/25/2023 3:00 PM EST Office Visit Family [facility] [address] [place] [address] Britney Ko CRNP [address] [place] [address] Fall, initial encounter*; Protein-calorie malnutrition, unspecified severity (HCC); COPD, group B, by GOLD 2017 classification (HCC); Chronic diastolic heart failure (HCC); 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); Moderate episode of recurrent major depressive disorder (HCC); Severe peripheral arterial disease (HCC); Chronic atrial fibrillation (HCC) 05/26/2023 1:00 PM EST Office Visit Nephrology, [facility] [address] [place] [address] Dell Owen MD 200 [facility] [place] [address] 05/30/2023 6:10 PM EST Anticoagulation Pharmacy, [facility] [address] [place] [address] [facility] [address] [place] [address] 06/07/2023 2:10 PM EST Office Visit Vascular Surgery, [facility] [address] [place] [address] Killian Gan MD [address] [facility] [place] [address] 10/24/2023 3:00 PM EDT Office Visit Rheumatology [place] [address] [place] [address] Kayla Jerome CRNP [address] [place] [address] 11/10/2023 10:00 AM EDT Office Visit Cardiology, 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 05/25/2023 2:30 PM EST RENAL FUNCTION PANEL Lab Routine HTN, goal below 140/90 05/25/2023 2:30 PM EST URINALYSIS WITH MICROSCOPIC EXAM Lab Routine HTN, goal below 140/90 05/25/2023 2:37 PM EST OSMOLALITY, URINE Lab Routine HTN, goal below 140/90 05/25/2023 2:37 PM EST SODIUM, RANDOM URINE Lab Routine HTN, goal below 140/90 05/25/2023 2:37 PM EST CREATININE, RANDOM URINE Lab Routine HTN, goal below 140/90 05/25/2023 2:37 PM EST Scheduled Procedures Name Priority Associated Diagnoses Date/Ti me COLONOSCOPY FLEXIBLE PROXIMA L DIAGNOSTIC Recall Encounter for screening colonoscopy Health Maintenance Due Date Last Done Comments Depression Screening 12/28/2021 12/28/2020 COVID-19 Vaccine (2022-24 season) 2023 04/22/2021, 08/25/2020, 08/04/2020 DISCUSS TOBACCO CESSATION (REFER TO SMARTSET #2076) 02/23/2023 02/23/2022 Mammogram 10/05/2023 10/04/2022, 10/21, 10/06/2020, Additional history exists COLONOSCOPY-ANNUAL AGES 18-100 12/02/2023 12/01/2022, 12/01/2022, 05/12/2017, Additional history exists Albumin/Creatinine Ratio 01/02/2024 01/01/2021 O2 ASSESSMENT COMPLETED IN PAST YEAR FOR COPD 02/28/2024 02/27/2023 GFR 05/02/2024 05/02/2023, 08/05/2022, 09/30/2022, Additional history exists DXA Scan 12/31/2025 12/31/2018, 04/21, 05/08/2003 DTaP,Tdap,and [...] as of this encounter Visit Diagnoses Diagnosis Fall, initial encounter- Primary Protein-calorie malnutrition, unspecified severity (HCC) COPD, group B, by GOLD 2017 classification (HCC) Chronic diastolic heart failure (HCC) Chronic diastolic heart failure 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) Other specified drug-induced mental disorder Moderate episode of recurrent major depressive disorder (HCC) Severe peripheral arterial disease (HCC) Chronic atrial fibrillation (HCC) Atrial fibrillation Anticoagulation management encounter Encounter for therapeutic drug monitoring long-term current use of anticoagulant therapy HTN, goal below 140/90 Unspecified essential hypertension documented in this encounter Care Teams Bevel Polisher Relationship Specialty Start Date End Date Britney Ko CRNP [address] [place] [address] PCP - General Nurse Practitioner 09/22/21 documented as of this encounter
--- OUTSIDE RECORDS SUMMARY | 2023-06-01 03:12 | External Medical Summary | Summary of Care ---
Author Name Unknown Organization [facility] Address [address] [facility] [place] [address] Phone [phone] Care Team Providers Care Business Support Specialist Name Role Phone Britney Ko Primary Care Provider Reason for Visit * Reason Comments Dosage Adjustment Via Phone (anticoag Cl inic) Encounter Details Date Type Department Care Team (Latest Contact Info) Description 05/25/2023 5:30 PM [facility] Anticoagulation Pharmacy, [facility] 132 [facility] [place] [address] [facility] 132 [facility] [place] [address] Anticoagulation management encounter* Allergies Active Allergy Reactions [...] Additional Information Patient not taking.Reported on 05/25/2023 Potassium Chloride Aminah ER 20 MEQ Oral Tablet Extended Release take 1 tablet (20 mEq) orally daily in the morning 30 Tablet 0 05/07/2023 Active Ondansetron HCl 8 MG Oral Tablet (Zofran) Take by mouth every 8 hours as needed for Nausea. 0 Active Hospital, Clinic, or Other Facility [...] Progress Notes * Gaby Andrea RPh - 05/25/2023 3:14 PM EST Patient has been holding warfarin since 05/07 and hospitalist for a fall where a subdural hematoma was seen. Seen by pcp today, pcp will order CT of head and determine if start of warfarin is indicated at this time. [facility] will follow up with imagining and then assist with warfarin start if indicated. Gaby Andrea, Pharm D, BCACP Clinical Pharmacist 05/25/2023, 3:57 PM documented in this encounter Plan of Treatment Upcoming Encounters Date Type Department Care Team (Late st Contact Info) Description 05/26/2023 1:00 PM EST Office Visit Nephrology, [facility] [address] [place] [address] [address] Dell Owen MD [address] [place] [address] [address] 05/26/2023 5:10 PM EST Anticoagulation Pharmacy, [facility] [address] [facility] [place] [address] [facility] [address] [facility] [place] [address] 06/07/2023 2:10 PM EST Office Visit Vascular Surgery, [facility] [address] [facility] [place] [address] Killian Gan MD [address] [place] [address] 06/30/2023 10:00 AM EST Office Visit Family Practice [facility] [address] [facility] [place] [address] Britney Ko CRNP 132 [facility] [place] [address] 10/24/2023 3:00 PM EDT Office Visit Rheumatology [address] [place] [address] Kayla Jerome CRNP [address] [place] [address] [place] [address] 11/10/2023 10:00 AM EDT Office Visit Cardiology, [facility] [address] [facility] [place] [address] Renetta Glynn PA-C 132 [facility] [place] [address] Scheduled Procedures Name Priority Associated Diagnoses Date/Ti me COLONOSCOPY FLEXIBLE PROXIMA L DIAGNOSTIC Recall Encounter for screening colonoscopy Health Maintenance Due Date Last Done Comments Depression Screening 12/28/2021 12/28/2020 COVID-19 Vaccine ( season) 2023 04/22/2021, 08/25/2020, 08/04/2020 DISCUSS TOBACCO CESSATION (REFER TO SMARTSET #7861) 02/23/2023 02/23/2022 Mammogram 10/05/2023 10/04/2022, 10/21, 10/06/2020, Additional history exists COLONOSCOPY-ANNUAL AGES 18-100 12/02/2023 12/01/2022, 12/01/2022, 05/12/2017, Additional history exists Albumin/Creatinine Ratio 01/02/2024 01/01/2021 O2 ASSESSMENT COMPLETED IN PAST YEAR FOR COPD 02/28/2024 05/25/2023 GFR 05/02/2024 05/02/2023, 08/0 05/2022, 09/30/2022, Additional history exists DXA Scan 12/31/2025 [...] in this encounter Care Teams Business Support Specialist Relationship Specialty Start Date End Date Britney Ko CRNP [address] [place] [address] PCP - General Nurse Practitioner 09/22/21 documented as of this encounter
--- OUTSIDE RECORDS SUMMARY | 2023-06-01 03:12 | External Medical Summary ---
Author Name Unknown Address Unknown Organization K01:[facility] - [address] [place] [id number] Laboratory Report Ordering Provider Test Date Status RENEE MENJIVARKiarra 05/29/2023 14:21:36 Final Observation Date Value Abnormality Reference (Units ) Status Magnesium 05/29/2023 14:21:36 1.4 Below low normal 1.5 -2.6 (mg/dL) Final Performing Location [facility] - [address] [place] [id number]
--- OUTSIDE RECORDS SUMMARY | 2023-06-01 03:12 | External Medical Summary | Summary of Care ---
Author Name Unknown Organization [facility] [address] [facility] [address] Phone [phone] Care Team Providers Care Health Education Specialist Name Role Phone Stefani Britney MAHONEY Primary Care Provider Reason for Visit * Reason Comments Chronic Kidney Disease (CKD) Encounter Details Date Type Department Care Team (Late st Contact Info) Description 05/26/2023 1:00 PM EST Office Visit Nephrology, [facility] Cole [address] [facility] [place] [address] Dell Owen MD [address] [facility] [place] [address] Hyponatremia* Allergies Active Allergy Reactions Criticality Noted Date [...] before bedtime. 60 Tablet 0 05/26/2023 Active Furosemide 20 MG Oral Tablet (Lasix) [...] B, by GOLD 2017 classification ([facility]) 2.5 mg NEBULIZER PRN 12/08/2022 12/08/2023 Acti ve Albuterol Sulfate (Proventil) (5 MG/ML) 0.5% *conc* inhalation solution 2.5 mgIndications:COPD, group B, by GOLD 2017 classification ([facility]) 2.5 mg NEBULIZER PRN 12/08/2022 12/08/2023 [...] mRNA, LNP-s, No Pre serve, 2-Dose Series ([employer]) 04/22/2021,08/25/2020,08/04/2020 Pneumococcal Conjugate Vacc, 13 Valent (Prevnar) [...] Sign Reading Time Taken Comments Blood Pressure 135/84 05/26/2023 12:53 PM EST Pulse 89 05/26/2023 12:53 PM EST Temperature 36.1 C (97 F) 05/26/2023 12:53 PM EST Respiratory Rate 18 05/26/2023 12:53 PM EST Oxygen Saturation 96% 05/26/2023 12:53 PM EST Inhaled Oxygen Concentration - - Weight 58.6 kg (129 lb 1.6 oz) 05/26/2023 12:53 PM EST Height - - Body Mass Index 23.01 05/25/2023 2:51 PM EST documented in this encounter Progress Notes * Dell Owen MD - 05/26/2023 1:02 PM EST Subjective: Michelle Puente is a 68 year old female. Chief complaint===== hospital discharge follow-up for hyponatremia HPI: 68-year-old female with extensive medical problems including longstanding history of alcohol abuse ( not exactly clear whether she has liver cirrhosis or not), COPD with ongoing smoking, diffusevascular disease, atrial fibrillation/flutter severe MR moderate TR, history of breast cancer status post chemo and radiation. She does have history of chronic hyponatremia. However on May 02 she had routine outpatient labs through cardiology which showed a serum sodium of 123 and after which she was sent over to the hospital for admission. In the hospital she was maintained on fluid restriction serum sodium went upslightly to 130 range and then was discharged with clear instruction about stopping alcohol limiting fluid to around 40 oz per day. Lasix 20 twice daily was also started However since discharge-----she is drinking massive amount of liquid. Patient 1st told me she is drinking 3 glasses of ice tea but when I ask he says she is drinking more than a gal per day of ice tea as well as some soda water. However he does admit that she has almost totally stopped alcohol Her food intake is pretty low and barely eats any meat She is taking Lasix and potassium as prescribed Her weight has gone up by more than 10 lb since discharge on May 07. She does have more edema Not surprisingly her serum sodium came back even less and is 122 now on the blood work NSAID No Renal Stone No Herbal Medication No Urinary Complaints No Current Outpatient Medications Medication Sig Dispense Refill Thiamine Mononitrate (VITAMIN B1) 100 MG TABS Take by mouth. Folic Acid 400 MCG Tablet Take 1 Tablet by mouth in the morning. Albuterol Sulfate (ALBUTEROL HFA) 108 (90 BASE) MCG/ACT inhaler Inhale 2 Puffs by mouth every 4 hours as needed for Shortness of Breath. (Patient not taking: Reported on 03/01/2023) 18 g 5 Acetaminophen 325 MG CAPS [...] Dispense 3 400g tubes. 400 g 0 Trelegy Ellipta 100-62.5-25 MCG/ACT Aerosol Powder Breath Activated (Nirpypgdhcz-Eavqstauasai-Iytindpdsi) Inhale 1 Puff by mouth. traMADol HCl 50 MG Oral Tablet (Ultram) Take 1 Tablet by mouth every 6 hours as needed for severe Pain 30 Tablet 0 Baclofen 10 MG Oral Tablet (Lioresal) Take 1 Tablet by mouth in the morning and 1 Tablet before bedtime. (Patient not taking: Reported on 03/01/2023) 20 Tablet 0 Cyclobenzaprine HCl 5 MG Oral Tablet (Flexeril) take 1 tablet (5 MG) orally three times a day As Needed for muscle spasm (Patient not taking: Reported on 03/01/2023) 30 Tablet 0 methylPREDNISolone 4 MG Oral Tablet Therapy Pack (Medrol Dosepack) follow package directions (Patient not taking: Reported on 05/02/2023) 21 Tablet 0 Lidocaine 5 % External Patch (Lidoderm) Place 1 Patch over 12 hours topically on the skin daily. Place over area of pain from compression fracture. 30 Patch 1 traZODone HCl 100 MG Oral Tablet (Desyrel) Take 1 Tablet by mouth at bedtime. 90 Tablet 1 Metoprolol Succinate ER 50 MG Oral Tablet Extended Release 24 Hour (toPROL XL) Take 1 Tablet by mouth in the morning. 90 Tablet 2 Rosuvastatin Calcium 20 MG Oral Tablet (Crestor) Take 1 Tablet by mouth in the morning. 90 Tablet 2 Warfarin Sodium 10 MG Oral Tablet (Coumadin) Take up to 1 tablet by mouth every evening as [id number] Tablet 4 Furosemide 20 MG Oral Tablet (Lasix) take 1 tablet (20 mg) orally twice daily 60 Tablet 0 levETIRAcetam 500 MG Oral Tablet (Keppra) take 1 tablet (500 mg) orally twice a day (Patient not taking: Reported on 05/25/2023) 60 Tablet 0 Potassium Chloride Aminah ER 20 MEQ Oral Tablet Extended Release take 1 tablet (20 mEq) orally daily in the morning 30 Tablet 0 Ondansetron HCl 8 MG Oral Tablet (Zofran) Take by mouth every 8 hours as needed for Nausea. Current Facility-Administered Medications Medication Dose Route Frequency Provider Last Rate Last Admin Albuterol Sulfate (Proventil) (2.5 MG/3ML) 0.083% inhalation solution 2.5 mg 2.5 mg Nebulizer Brendan Bae MD 2.5 mg at 12/21/22 1045 Albuterol Sulfate (Proventil) (5 MG/ML) 0.5% *conc* inhalation solution 2.5 mg 2.5 mg Nebulizer Brendan Jamison MD Past Medical History: Diagnosis Date Benign [...] performed by Karine Gamez MD at OR [facility] BREAST BIOPSY Left 03/04/2015 Malignant neoplasm of left female breast (HCC)- US guided core biopsy of 2-3:00 of left breast revealed invasive carcinoma, NST, ER/NC-, Her-2 -, US guided core biopsy left axilla lymph node negativefor metastatic carcinoma BX LYMPH NODE DEEP AXIL Left 04/01/2015 BIOPSY LYMPH NODE DEEP AXILLARY OPEN performed by Karine Gamez MD at OR [facility] DELIVERY one delivery CHEMOTHERAPY Left 05/09/15-10/06/15 COLONOSCOPY W/ BIOPSY (RECTUM) 02/26/2007 hyperplastic repeat in 10 yrs COLONOSCOPY, DIAGNOSTIC (RECTUM) 05/12/2017 hyperplastic polyps, diverticulosis, repeat 10 yrs COLONOSCOPY, DIAGNOSTIC (RECTUM) 05/12/2017 COLONOSCOPY FLEXIBLE PROXIMAL DIAGNOSTIC performed by Al Rock MD at ENDOSCOPY [facility] COLONOSCOPY, DIAGNOSTIC (RECTUM) N/A 12/01/2022 severe diverticulosis/multiple polyps/biopsies show adenomatous polyps/recall 1 year/Colonoscopy/MN EXC BREAST LESION RADMARK Right 11/04/2020 EXCISION OF BREAST LESION RADIOLOGICAL MARKER performed by Karine Gamez MD at OR [facility] IDENTIFY SENTINEL NODE, RADIOACTIVE TRACER Left 04/01/2015 INJECTION PROCEDURE FOR IDENTIFICATION SENTINEL NODE performed by Karine Gamez MD at OR [facility] INSERTION OF LENS PROSTHESIS Left 03/21/2018 INSERTION OF LENS PROSTHESIS Right 04/04/2018 LIGATE/CUT OVIDUCT(S) Tubal Ligation MAMMOGRAM BREAST NEEDLE BIOPSY CORE RIGHT Right 08/13/2020 site one benign MAMMOGRAM BREAST NEEDLE BIOPSY CORE RIGHT Right 08/13/2020 site 2 complex sclerosing lesion. MASTECTOMY, PARTIAL Left 04/01/2015 04/01/2015MASTECTOMY PARTIAL performed by Karine Gamez MD at OR [facility] OTHER 05/14/2015 placement of a-port tunneled central venous access catheter with port [facility]. Cohen 05/14/2015 RADIATION THERAPY Left 11/10/15-12/28/15 TREAT TROCHANTERIC FRACTURE W/IMPLANT Right 11/24/2018 rt trochanteric nail Review of patient's allergies indicates: Allergen Reactions Sulfa Antibiotics Trimethoprim rash Family History Problem Relation Age of Onset Arthritis Mother Rheumatoid Heart Disorder Mother A Fib, pacemaker Diabetes Father Cancer Father Prostate Breast Cancer Sister 58 Heart Disorder Grandmother (Maternal) pacemaker Cancer Grandmother (Maternal) Thyroid Breast Cancer Aunt (Paternal) Family History of Renal Disease No Social History Socioeconomic History Marital status: Spouse [...] used Substance and Sexual Activity Alcohol use: Not Currently Alcohol/week: 14.0 standard drinks of alcohol Types: [...] on file Housing Stability: Not on file Ambulation: Wheel Chair Review of Systems: OBJECTIVE: PHYSICAL EXAM: BP 135/84 | Pulse 89 | Temp 36.1 C (97 F) (Tympanic) | Resp 18 | Wt 58.6 kg (129 lb 1.6 oz) | LMP 09/20/1999 | SpO2 96% | BMI 23.01 kg/m | BSA 1.61 m General: alert, anxious, ill looking, and malnourished Head: Normocephalic, No masses, lesions, tenderness or abnormalities Nose: no mucosal edema Neck: supple, no JVD Heart: Regular with systolic murmur heard Lungs: coarse sounds heard, decreased breath sounds, expiratory wheezes bilaterally Abdomen: abdomen soft and non-tender Back: no costovertebral angle tenderness Extremities: 1+ edema bilaterally Neuro Exam: alert & oriented x 3 with fluent speech, no focal motor/sensory deficits Skin: Very dry appearing skin BP Readings from Last 4 Encounters: 05/26/23 135/84 05/25/23 140/82 05/02/23 144/84 03/01/23 150/88 Wt Readings from Last 4 Encounters: 05/26/23 58.6 kg (129 lb 1.6 oz) 05/25/23 57.4 kg (126 lb 9.6 oz) 05/02/23 55.8 kg (123 lb) 03/01/23 56.6 kg (124 lb 12.8 oz) Estimated body mass index is 23.01 kg/m as calculated from the following: Height as of 05/25/23: 1.595 m (5' 2.8"). Weight as of this encounter: 58.6 kg (129 lb 1.6 oz). Latest Reference Range & Units 09/30/22 09:15 12/20/22 10:34 05/02/23 14:24 05/25/23 14:30 Sodium 135 - 146 mmol/L 134 (L) 129 (L) 123 (L) 122 (L) ASSESSMENT: Hyponatremia (Primary) She has multifactorial cause of hyponatremia-----chronic alcohol abuse, advanced COPD, polydipsia as well as SIADH. She has chronic hyponatremia Sodium is low again at 122. I discussed the case in detail with the patient and her . During her recent hospitalization the only thing major we did was fluid restriction. She is currently drinking more than 1.5 gal per day predominantly ice tea. This is incredible high amount and not surprisingly her sodium is even lower. At the time of discharge on May 07 sodiumwas 128-130. Reminded her again that this is not a lack of salt but excessive fluid. Will double the dose of Lasix as well as potassium. But unless she really limit the fluid to to 60 oz per day she will not have near normal sodium. Renal panel again to be done in 3 days We could have send her to the hospital but I doubt we will change anything as the problem is mostlyoutpatient limiting the fluid intake. This is not a problem that will be solved by keeping her in the hospital for 2 days. Again warned the patient and her that she really needs to limit the fluid to have any chance of near normal sodium. Given her history of seizure disorder she is at riskof having seizure with dropping sodium - RENAL FUNCTION PANEL; Future; Expected date: 05/26/2023 Other orders - Furosemide 20 MG Oral Tablet (Lasix); Take 2 Tablets by mouth in the morning and 2 Tablets beforebedtime. - Potassium Chloride Aminah ER 20 MEQ Oral Tablet Extended Release; Take 1 Tablet by mouth in the morning and 1 Tablet before bedtime. Follow Up: Return in about 3 months (around 08/25/2023). Dell Owen MD documented in this encounter Plan of Treatment Upcoming Encounters Date Type Department Care Team (Latest Contact Info) Description 05/26/2023 5:10 PM EST Anticoagulation Pharmacy, [address] [place] [address] [facility] [address] [place] [address] Anticoagulation management encounter* 06/07/2023 2:10 PM EST Office Visit Vascular Surgery, [address] [place] [address] Killian Gan MD [address] [facility] [place] [address] 06/07/2023 5:30 PM EST Anticoagulation Pharmacy, [address] [place] [address] [facility] [address] [facility] [place] [address] 06/30/2023 10:00 AM EST Office Visit Family Practice [facility] [address] [facility] [place] [address] Britney Ko CRNP [address] [place] [address] 10/02/2023 2:20 PM EDT Office Visit Nephrology, [facility] [address] [facility] [place] [address] Dell Owen MD [address] [facility] [place] [address] 10/24/2023 3:00 PM EDT Office Visit Rheumatology [address] [place] [address] Kayla Jerome CRNP [address] [facility] [place] [address] 11/10/2023 10:00 AM EDT Office Visit Cardiology, [facility] [address] [facility] [place] [address] Renetta Glynn PA-C 132 [facility] [place] [address] Scheduled Orders Name Type Priority Associated Diagnoses Orde r Schedule RENAL FUNCTION PANEL Lab Routine Hyponatremia Expected: 05/26/2023 (Approximate), Expires: 11/22/2023 Scheduled Procedures Name Priority Associated Diagnoses Date/Ti [...] Diagnoses Diagnosis Hyponatremia- Primary Hyposmolality and/or hyponatremia Anticoagulation management encounter- Primary Encounter for therapeutic drug monitoring documented in this encounter Care Teams Health Education Specialist Relationship Specialty Start Date End Date Britney Ko CRNP 132 [place] [address] PCP - General Nurse Practitioner 09/22/21 documented as of this encounter
--- OUTSIDE RECORDS SUMMARY | 2023-06-01 03:12 | External Medical Summary | Summary of Care ---
Author Name Unknown Organization [facility] Address [address] [facility] [place] [address] Phone [phone] Care Team Providers Care Physical Aerodynamicist Name Role Phone Britney Ko Primary Care Provider Reason for Visit * Reason Comments Dosage Adjustment Via Phone (anticoag Cl inic) Encounter Details Date Type Department Care Team (Latest Contact Info) Description 05/26/2023 5:10 PM [facility] Anticoagulation Pharmacy, [facility] 132 [facility] [place] [address] [facility] 132 [facility] [place] [address] Anticoagulation management encounter* Allergies Active Allergy Reactions [...] mRNA, LNP-s, No Pre serve, 2-Dose Series ([email or web address]) 04/22/2021,08/25/2020,08/04/2020 Pneumococcal Conjugate Vacc, 13 Valent (Prevnar) [...] encounter Progress Notes * Gaby Andrea, [facility] - 05/26/2023 9:47 AM EST Medication Therapy Disease Management - Anticoagulation Patient: Michelle Puente | : 1955 Subjective Patient-Reported Symptoms: Patient Findings Positives: Hospital admission (Recent fall with subdural hematoma), Other complaints (Repeat CT clear, neurology ask a doc and pcp recommending restart warfarin, will restart at previous dose) Negatives: Signs/symptoms of thrombosis, Signs/symptoms of bleeding, Change in health, Change in alcohol use, Change in activity, Upcoming invasive procedure, Missed doses, Extra doses, Change in medications, Change in diet/appetite, Bruising Objective Current Warfarin Dose As of 05/26/2023 Warfarin maintenance plan: 5 mg (10 mg x 0.5) every Tue, Sat; 10 mg (10 mg x 1) all other days INR Result As of 05/26/2023 INR goal: 2.0-3.0 INR used for dosing: Assessment & Plan Warfarin Plan As of 05/26/2023 Full warfarin instructions: 05/26: 10 mg; Otherwise 5 mg every Tue, Sat; 10 mg all other days Next INR check: 06/07/2023 Repeat PT/INR in 2 week(s) Weekly dose: not changed Additional Dosing Information: Gaby Andrea [facility] Clinical Pharmacist 05/26/2023, 9:53 AM documented in this encounter Plan of Treatment Upcoming Encounters Date Type Department Care Team (Late st Contact Info) Description 05/26/2023 1:00 PM EST Office Visit Nephrology, [facility] [place] [address] [place] [address] Dell Owen MD [address] [place] [address] 06/07/2023 2:10 PM EST Office Visit [facility], [facility] [address] Killian Gan MD [address] [place], [place] [id number] 06/07/2023 5:30 PM EST Anticoagulation Pharmacy, [facility] 132 [place] [address] [facility] 132 [place] [address] 06/30/2023 10:00 AM EST Office Visit Family Practice [facility] 132 [facility] [place] [address] Britney Ko CRNP 132 [facility] [place] [address] 10/24/2023 3:00 PM EDT Office Visit Rheumatology [place] [id number] [facility] [place] [address] Kayla Jerome CRNP [facility] [place] [address] 11/10/2023 10:00 AM EDT Office Visit Cardiology, [facility] 132 [place] [address] Renetta Glynn, SAMI [address] [place] [address] Scheduled Procedures Name Priority Associated Diagnoses Date/Ti [...] COMPLETED IN PAST YEAR FOR COPD 05/25/2024 05/25/2023 DXA Scan 12/31/2025 12/31/2018, 04/21, 05/08/2003 DTaP,Tdap,and [...] monitoring documented in this encounter Care Teams Physical Aerodynamicist Relationship Specialty Start Date End Date Britney Ko CRNP 132 [place] [address] PCP - General Nurse Practitioner 09/22/21 documented as of this encounter"
--- OUTSIDE RECORDS SUMMARY | 2023-06-01 03:13 | External Medical Summary ---
Author Name Unknown Address Unknown Organization K01:[facility] [place] [address] [facility] [place] [address] Laboratory Report Ordering Provider Test Date Status STONE VANCE 05/25/2023 14:37:40 Final Observation Date Value Abnormality Reference (Units ) Status Color of Urine by Auto 05/25/2023 14:37:40 Yellow Colorless, Light Yellow, Yellow, Dark Yellow Final Clarity, Urine 05/25/2023 14:37:40 Slightly Cloudy Abnormal Clear Final Glucose [Mass/volume] in Urine by Automated test strip 05/25/2023 14:37:40 Negative Negative (mg/dL) Final Bilirubin.total [Presence] in Urine by Automated test strip 05/25/2023 14:37:40 Negative Negative Final Ketones [Mass/volume] in Urine by Automated test strip 05/25/2023 14:37:40 Negative Negative (mg/dL) Final Specific gravity, Urine 05/25/2023 14:37:40 1.016 1.003-1.030 Final Hemoglobin [Presence] in Urine by Automated test strip 05/25/2023 14:37:40 Negative Negative Final pH, Urine 05/25/2023 14:37:40 6.0 5.0-7.5 (Units) Final Protein [Mass/volume] in Urine by Automated test strip 05/25/2023 14:37:40 Trace Abnormal Negative (mg/dL) Final Urobilinogen [Mass/volume] in Urine by Automated test strip 05/25/2023 14:37:40 Normal Normal (mg/dL) Final Nitrite [Presence] in Urine by Automated test strip 05/25/2023 14:37:40 Negative Negative Final Leukocyte esterase [Presence] in Urine by Automated test strip 05/25/2023 14:37:40 Large Abnormal Negative Final RBC, Urine 05/25/2023 14:37:40 0-2 0-2 (/HPF) Final WBC, Urine 05/25/2023 14:37:40 50+ Abnormal 0-2 (/HPF) Final Bacteria [#/area] in Urine sediment by Microscopy high power field 05/25/2023 14:37:40 >200 Abnormal 0-25 (/HPF) Final Performing Location [facility] [place] [facility] [address]a [address]. [facility] [address]
--- OUTSIDE RECORDS SUMMARY | 2023-06-01 03:13 | External Medical Summary | Summary of Care ---
Author Name Unknown Organization [facility] Address [address] [facility] [place] [address] Phone [phone] Care Team Providers Care Health Worker Name Role Phone Nayareba Britney MAHONEY Primary Care Provider Reason for Visit * Reason Onset Date Comments Outpatient Testing 05/17/2023 Encounter Details Date Type Department Care Team (Late st Contact Info) Description 05/17/2023 Telephone Nephrology, [facility] [place] [address] Dell Owen MD [address] [facility] [place] [address] Outpatient Testing Allergies Active Allergy Reactions Criticality Noted Date Comments Sulfa Antibiotics 11/03/2016 Trimethoprim 04/14/1997 rash documented as of this encounter (statuses as of 05/17/2023) Medications Medication Sig Dispensed Refills Start Date [...] the morning 30 Tablet 0 05/07/2023 Active Hospital, Clinic, or Other Facility Administered Medication Ordered Dose Route Frequency Start Date End Date Status Albuterol Sulfate (Proventil) (2.5 MG/3ML) 0.083% inhalation solution 2.5 mgIndications:COPD, group B, by GOLD 2017 classification ([facility]) 2.5 mg NEBULIZER PRN 12/08/2022 12/08/2023 Acti ve Albuterol Sulfate (Proventil) (5 MG/ML) 0.5% *conc* inhalation solution 2.5 mgIndications:COPD, group B, by GOLD 2017 classification ([facility]) 2.5 mg NEBULIZER PRN 12/08/2022 12/08/2023 Acti ve documented as of this encounter (statuses as of 05/17/2023) Active Problems Problem Noted Date Diagnosed Date [...] as of this encounter (statuses as of 05/17/2023) Resolved Problems Problem Noted Date Diagnosed Date [...] as of this encounter (statuses as of 05/17/2023) Immunizations Name Administration Dates Next Due COVID-19 mRNA, LNP-s, No Pre serve, 2-Dose Series ([employer]) 04/22/2021,08/25/2020,08/04/2020 Pneumococcal Conjugate Vacc, 13 Valent (Prevnar) [...] encounter Miscellaneous Notes * Telephone Encounter - Peggy Doe RN - 05/17/2023 10:38 AM EST Lab orders placed as requested to be done prior to upcoming appt. documented in this encounter Plan of Treatment Upcoming Encounters Date Type Department Care Team (Late st Contact Info) Description 05/17/2023 3:50 PM EST Anticoagulation Pharmacy, [facility] 132 [facility] [place] [address] [facility] [address] [place] [address] 05/24/2023 1:00 PM EST Imaging Vascular Lab, [facility] 2nd Floor, [place] 132 [facility] [place] [address] 05/25/2023 3:00 PM EST Office Visit Family Practice [facility] 132 [facility] [place] [address] Britney Ko CRNP 132 [facility] [place] [address] 05/26/2023 1:00 PM EST Office Visit Nephrology, [facility] [address] [facility] [place], [place] [address] Dell Owen MD 200 [facility] [place], [place] [address] 06/07/2023 2:10 PM EST Office Visit Vascular Surgery, [facility] [place] [address] Killian Gan MD [address] [place] [address] 10/24/2023 3:00 PM EDT Office Visit Rheumatology [facility] [address] [facility] [place], [place] [address] Kayla Jerome CRNP [address] [place] [address] 11/10/2023 10:00 AM EDT Office Visit Cardiology, [facility] [place] [address] Renetta Glynn, PADanielleC [facility] [address] Scheduled Orders Name Type Priority Associated Diagnoses Orde r Schedule RENAL FUNCTION PANEL Lab Routine HTN, goal below 140/90 Expected: 05/18/2023 (Approximate), Expires: 05/17/2024 URINALYSIS WITH MICROSCOPIC EXAM Lab Routine HTN, goal below 140/90 Expected: 05/18/2023 (Approximate), Expires: 05/17/2024 OSMOLALITY, URINE Lab Routine HTN, goal below 140/90 Expected: 05/18/2023 (Approximate), Expires: 05/17/2024 SODIUM, RANDOM URINE Lab Routine HTN, goal below 140/90 Expected: 05/18/2023 (Approximate), Expires: 05/17/2024 CREATININE, RANDOM URINE Lab Routine HTN, goal below 140/90 Expected: 05/18/2023 (Approximate), Expires: 05/17/2024 Scheduled Procedures Name Priority Associated Diagnoses Date/Ti [...] FOR COPD 02/28/2024 02/27/2023 GFR 05/02/2024 05/02/2023, 08/0 05/2022, 09/30/2022, Additional [...] hypertension documented in this encounter Care Teams Health Worker Relationship Specialty Start Date End Date Britney Ko CRNP [address] [place] [address] PCP - General Nurse Practitioner 09/22/21 documented as of this encounter
--- OUTSIDE RECORDS SUMMARY | 2023-06-01 03:13 | External Medical Summary ---
Author Name Unknown Address Unknown Organization [id number]:[facility] [place] [address] [place] [id number] Laboratory Report Ordering Provider Test Date Status STONE VANCE 05/25/2023 14:37:40 Final Observation Date Value Abnormality Reference (Units ) Status Osmolality, Urine 05/25/2023 14:37:40 437 50 -1200 (mOsm/kg) Final Performing Location LABORATORY [facility] - [address] [place] [id number]
--- OUTSIDE RECORDS SUMMARY | 2023-06-01 03:13 | External Medical Summary ---
Author Name Unknown Address Unknown Organization [id number]:[facility]ATORY [facility] [place] [address] [place] [id number] Laboratory Report Ordering Provider Test Date Status STONE VANCE 05/25/2023 14:37:40 Final Observation Date Value Abnormality Reference (Units ) Status Creatinine, Urine 05/25/2023 14:37:40 92 (m g/dL) Final Performing Location LAB[facility]ATORY [facility] - [address] [place] [id number]
--- OUTSIDE RECORDS SUMMARY | 2023-06-01 03:13 | External Medical Summary ---
Author Name Unknown Address Unknown Organization [id number]:LABORATORY [facility] 57-10 - [address] [place] [id number] Laboratory Report Ordering Provider Test Date Status KATHRIN NGUYEN 05/25/2023 14:30:10 Final Warfarin Therapy
INR: 2 .0-3.0 conventional anticoagulation
INR: 2.5- 3.5 high intensity anticoagulation Observation Date Value Abnormality Reference (Units ) Status PT 05/25/2023 14:30:10 14.7 11.6-15.2 (seconds) Final INR 05/25/2023 14:30:10 1.1 0.8-1.2 Final Performing Location LABORATORY [facility] 57-[address] 0 - [address] [place] [id number]
--- OUTSIDE RECORDS SUMMARY | 2023-06-01 03:13 | External Medical Summary | Summary of Care ---
Author Name Unknown Organization [facility] Address [address] [facility] [place] [address] Phone [phone] Care Team Providers Care Varnish Cooker Name Role Phone Britney Ko Primary Care Provider Reason for Visit * Reason Onset Date Comments Hospital Follow-Up 05/11/2023 Encounter Details Date Type Department Care Team (Late st Contact Info) Description 05/11/2023 Telephone General Internal Medicine [facility] [place] [address] [facility] [address] Britney Ko CRNP [address] [place] [address] Hospital Follow-Up Allergies Active Allergy Reactions Criticality Noted Date Comments Sulfa Antibiotics 11/03/2016 Trimethoprim 04/14/1997 rash documented as of this encounter (statuses as of 05/12/2023) Medications Medication Sig Dispensed Refills Start Date [...] (toPROL XL)Indications:Perma nent atrial fibrillation ([facility] [...] as of this encounter (statuses as of 05/12/2023) Active Problems Problem Noted Date Diagnosed Date [...] as of this encounter (statuses as of 05/12/2023) Resolved Problems Problem Noted Date Diagnosed Date [...] as of this encounter (statuses as of 05/12/2023) Immunizations Name Administration Dates Next Due COVID-19 mRNA, LNP-s, No Pre serve, 2-Dose Series (Exec) 04/22/2021,08/25/2020,08/04/2020 Pneumococcal Conjugate Vacc, 13 Valent (Prevnar) [...] encounter Miscellaneous Notes * Telephone Encounter - Dell Owen MD - 05/12/2023 3:11 PM EST Yes she does need Nephrology appt with renal Panel, UA, Urine Osm and Urine Sodium and Urine creat. Appt within 2 weeks. * Telephone Encounter - Benjamin Lee RN - 05/11/2023 3:24 PM EST Patient discharged from [facility] 05/07/23. Nephrology consulted, no discharge recommendations. Please assess if paitent will requires a follow up Nephrology appointment. Thank you documented in this encounter Plan of Treatment Upcoming Encounters Date Type Department Care Team (Late st Contact Info) Description 05/17/2023 3:50 PM EST [facility] 132 [facility] [place] [address] [place] [facility] [address] [place] [address] 05/24/2023 1:00 PM EST Imaging Vascular Lab, [facility] 2nd Floor, [place] 132 [facility] [place] [address] 05/25/2023 3:00 PM EST Office Visit Family Practice [facility] [address] [place] [address] Britney Ko CRNP 132 [facility] [place] [address] 06/07/2023 2:10 PM EST Office Visit Vascular Surgery, [facility] 132 [facility] [place] [address] Killian Gan MD [address] [place], [place] [id number] 10/24/2023 3:00 PM EDT Office Visit Rheumatology [address] [place] [address] Kayla Jerome CRNP [address] [place] [address] [place] [address] 11/10/2023 10:00 AM EDT Office Visit Cardiology, [facility] 132 [facility] [place] [address] Renetta Glynn, SAMI 132 [facility] [place] [address] Scheduled Procedures Name Priority Associated Diagnoses Date/Ti [...] filedocumented as of this encounter Care Teams Varnish Cooker Relationship Specialty Start Date End Date Britney Ko CRNP [address] [place] [address] PCP - General Nurse Practitioner 09/22/21 documented as of this encounter
--- OUTSIDE RECORDS SUMMARY | 2023-06-01 03:13 | External Medical Summary ---
Author Name Unknown Address Unknown Organization K01:LABORATORY [facility] [place] - [address] [place] [id number] Laboratory Report Ordering Provider Test Date Status STONE VANCE 05/25/2023 14:30:10 Final Observation Date Value Abnormality Reference (Units ) Status BUN 05/25/2023 14:30:10 12 6-20 (mg/dL) Final Creatinine 05/25/2023 14:30:10 0.4 Below low normal 0.5-1.0 (mg/dL) Final Glomerular filtration rate/1.73 sq M.predicted [Volume Rate/Area] in Serum, Plasma or Blood by Creatinine-based formula (CKD-EPI) 05/25/2023 14:30:10 >90 >=60 (mL/min) Final eGFR is calculated based on the CKD-EPI 2020 equation SODIUM 05/25/2023 14:30:10 122 Below low normal 135 -146 (mmol/L) Final Potassium 05/25/2023 14:30:10 3.9 3.5-5.1 (m mol/L) Final Cl 05/25/2023 14:30:10 86 Below low normal 98- 107 (mmol/L) Final CO2 05/25/2023 14:30:10 22 22-32 (mmo l/L) Final Anion gap 05/25/2023 14:30:10 14 7-15 (mmol /L) Final Glucose 05/25/2023 14:30:10 98 70-120 (mg /dL) Final Calcium 05/25/2023 14:30:10 8.6 8.4-10.2 ( mg/dL) Final Albumin 05/25/2023 14:30:10 3.8 3.8-5.0 (g /dL) Final Phosphate 05/25/2023 14:30:10 3.7 2.5-4.8 (m g/dL) Final Performing Location LAB[facility] - [address] [place] [id number]
--- OUTSIDE RECORDS SUMMARY | 2023-06-01 03:13 | External Medical Summary | Summary of Care ---
Author Name Unknown Organization [facility] Address [address] [facility] [place] [address] Phone [phone] Care Team Providers Care Lamination Inspector Name Role Phone Britney Ko Primary Care Provider Reason for Visit * Reason Onset Date Comments Hospital Follow-Up 05/11/2023 Encounter Details Date Type Department Care Team (Late st Contact Info) Description 05/11/2023 Telephone General Internal Medicine [facility] [place] [address] [facility] [address] Britney Ko CRNP [address] [place] [address] Hospital Follow-Up Allergies Active Allergy Reactions Criticality [...] 24 Hour (toPROL XL)Indications:Perma nent atrial fibrillation ([facility]),History of alcohol abuse,Tobacco abuse,HTN, goal below 140/90,Hyponatremia, [...] mRNA, LNP-s, No Pre serve, 2-Dose Series (mVisum) 04/22/2021,08/25/2020,08/04/2020 Pneumococcal Conjugate Vacc, 13 Valent (Prevnar) [...] 05/11/2023 3:24 PM EST Patient discharged from [facility] 05/07/23. Nephrology consulted, no discharge recommendations. Please assess if paitent will requires a follow up Nephrology appointment. Thank you documented in this encounter Plan of Treatment Upcoming Encounters Date Type Department Care Team (Late st Contact Info) Description 05/17/2023 3:50 PM EST [facility] 132 [facility] [place] [address] [place] [facility] [address] [place] [address] 05/24/2023 1:00 PM EST Imaging Vascular Lab, [facility] 2nd Floor, [place] 132 [facility] [place] [address] 05/25/2023 3:00 PM EST Office Visit Family Practice [facility] [address] [place] [address] Britney Ko CRNP 132 [facility] [place] [address] 06/07/2023 2:10 PM EST Office Visit Vascular Surgery, [facility] 132 [facility] [place] [address] Killian Gan MD [address] [place], [place] [address] 10/24/2023 3:00 PM EDT Office Visit Rheumatology [address] [place] [address] Kayla Jerome CRNP [address] [place] [address] [place] [address] 11/10/2023 10:00 AM EDT Office Visit Cardiology, [facility] 132 [facility] [place] [address] Renetta Glynn, SAMI 132 [facility] [place] [address] Scheduled Procedures Name Priority Associated Diagnoses Date/Ti [...] filedocumented as of this encounter Care Teams Lamination Inspector Relationship Specialty Start Date End Date Britney Ko CRNP [address] [place] [address] PCP - General Nurse Practitioner 09/22/21 documented as of this encounter
--- OUTSIDE RECORDS SUMMARY | 2023-06-01 03:13 | External Medical Summary ---
Author Name Unknown Address Unknown Organization K01:LABORATORY [facility] [place] [address] [place] [id number] Laboratory Report Ordering Provider Test Date Status STONE VANCE 05/25/2023 14:37:40 Final Observation Date Value Abnormality Reference (Units ) Status Sodium, Urine 05/25/2023 14:37:40 24 (mmol/ L) Final Performing Location LABORATORY [facility] - [address] [place] [address]
--- OUTSIDE RECORDS SUMMARY | 2023-06-01 03:14 | External Medical Summary | Summary of Care ---
Author Name Unknown Organization [facility] Address [address] [place] [address] Phone [phone] Care Team Providers Care Chemicals Fermentation Operator Name Role Phone Britney Ko Collette MAHONEY Primary Care Provider Encounter Details Date Type Department Care Team (Latest Contact Info) Description 05/04/2023 5:05 PM EST - 05/04/2023 11:59 PM EST Hospital Encounter Radiology Film File [address] [place] [address] Discharge Disposition: Home - Self Care Allergies Active Allergy Reactions Criticality Noted Date Comments Sulfa Antibiotics 11/03/2016 Trimethoprim 04/14/1997 rash documented as of this encounter (statuses as of 05/10/2023) Medications Medication Sig Dispensed Refills Start Date [...] 24 Hour (toPROL XL)Indications:Perma nent atrial fibrillation ([facility]),History of alcohol abuse,Tobacco abuse,HTN, goal below 140/90,Hyponatremia, Valvular heart disease,PAD (peripheral artery disease) ([facility]),Dyslipidemia, goal LDL below 70 Take [...] B, by GOLD 2017 classification ([facility]) 2.5 mg NEBULIZER PRN 12/08/2022 12/08/2023 Acti ve Albuterol Sulfate (Proventil) (5 MG/ML) 0.5% *conc* inhalation solution 2.5 mgIndications:COPD, group B, by GOLD 2017 classification ([facility]) 2.5 mg NEBULIZER PRN 12/08/2022 12/08/2023 Acti ve documented as of this encounter (statuses as of 05/10/2023) Active Problems Problem Noted Date Diagnosed Date [...] as of this encounter (statuses as of 05/10/2023) Resolved Problems Problem Noted Date Diagnosed Date [...] as of this encounter (statuses as of 05/10/2023) Immunizations Name Administration Dates Next Due COVID-19 mRNA, LNP-s, No Pre serve, 2-Dose Series ([employer]) 04/22/2021,08/25/2020,08/04/2020 Pneumococcal Conjugate Vacc, 13 Valent (Prevnar) [...] Team (Late st Contact Info) Description 05/11/2023 3:00 PM EST Office Visit Family Practice [facility] [address] [place] [address] Britney Ko CRNP [address] [place] [address] 05/17/2023 3:50 PM EST Anticoagulation Pharmacy, [facility] [address] [place] [address] [place] [address] 05/24/2023 1:00 PM EST Imaging Vascular Lab, [facility] 2nd Floor, [place] [facility] [place] [address] 06/07/2023 2:10 PM EST Office Visit Vascular Surgery, [facility] 132 [facility] [place] [address] Killian Gan MD [address] [place] [address] 10/24/2023 3:00 PM EDT Office Visit Rheumatology [place] [address] [facility] [place] [address] Kayla Jerome CRNP [facility] [place] [address] 11/10/2023 10:00 AM EDT Office Visit Cardiology, [facility] 132 [facility] [place] [address] Renetta Glynn PA-C [address] [place] [address] Scheduled Procedures Name Priority Associated Diagnoses Date/Ti me COLONOSCOPY FLEXIBLE PROXIMA L DIAGNOSTIC Recall Encounter for screening colonoscopy Health Maintenance Due Date Last Done Comments Hepatitis B (1 of 3 - Risk 3-dose series) 2013 Depression Screening 12/28/2021 12/28/2020 COVID-19 Vaccine ( season) 2023 04/22/2021, 08/25/2020, 08/04/2020 DISCUSS TOBACCO CESSATION (REFER TO SMARTSET #3292) 02/23/2023 02/23/2022 *NEPHROLOGY REFERRAL DUE TO RESISTANT [...] Procedure Name Priority Date/Time Associated Diagnosis Comments RADIOLOGY EXAM - MRI (IMAGES ONLY, NO REPORT) Routine 05/04/2023 5:05 PM EST documented in this encounter Results * RADIOLOGY EXAM - MRI (IMAGES ONLY, NO REPORT) (05/04/2023 5:05 PM EST) 05/04/2023 5:03 PM EST Narrative Scheduling, Silent - 05/09/2023 4:07 PM EST This is an imaging study not interpreted or resulted by a [facility] or [facility] contracted radiologist. Britney MAHONEY RAD MRI-MRA documented in this encounter Care Teams Chemicals Fermentation Operator Relationship Specialty Start Date End Date Britney Ko CRNP [address] [place] [address] PCP - General Nurse Practitioner 09/22/21 documented as of this encounter
--- OUTSIDE RECORDS SUMMARY | 2023-06-01 03:14 | External Medical Summary | Summary of Care ---
Author Name Unknown Organization [facility] Address [address] [facility] [place] [address] Phone [phone] Care Team Providers Care Event Marketing Assistant Name Role Phone Britney Ko Primary Care Provider Encounter Details Date Type Department Care Team (Late st Contact Info) Description 05/04/[address] [facility] [address] [place] [address] Britney Ko CRNP [address] [place] [address] Allergies Active Allergy Reactions Criticality Noted Date Comments Sulfa Antibiotics 11/03/2016 Trimethoprim 04/14/1997 rash documented as of this encounter (statuses as of 05/09/2023) Medications Medication Sig Dispensed Refills Start Date [...] group B, by GOLD 2017 classification ([facility]) 2.5 mg NEBULIZER PRN 12/08/2022 12/08/2023 Acti ve Albuterol Sulfate (Proventil) (5 MG/ML) 0.5% *conc* inhalation solution 2.5 mgIndications:COPD, group B, by GOLD 2017 classification ([facility]) 2.5 mg NEBULIZER PRN 12/08/2022 12/08/2023 Acti ve documented as of this encounter (statuses as of 05/09/2023) Active Problems Problem Noted Date Diagnosed Date [...] as of this encounter (statuses as of 05/09/2023) Resolved Problems Problem Noted Date Diagnosed Date [...] as of this encounter (statuses as of 05/09/2023) Immunizations Name Administration Dates Next Due COVID-19 [...] 3:00 PM EST Office Visit Family Practice [facility] [address] [place] [facility] [address] Britney Ko [facility]NP [facility] [address] 05/17/2023 3:50 PM EST Anticoagulation Pharmacy, [address] [place] [address] [facility] [address] [place] [address] 05/24/2023 1:00 PM EST Imaging Vascular Lab, [facility] 2nd Floor, [address] [place] [address] 06/07/2023 2:10 PM EST Office Visit Vascular Surgery, [address] [place] [address] Killian Gan MD [address] [place] [address] 10/24/2023 3:00 PM EDT Office Visit Rheumatology [place] [address] [facility] [place] [address] Kayla Jerome CRNP [address] [place] [address] [place] [address] 11/10/2023 10:00 AM EDT Office Visit Cardiology, [address] [place] [address] Renetta Glynn, SAMI [address] [place] [address] Scheduled Procedures Name Priority Associated Diagnoses Date/Ti [...] interpreted or resulted by a [facility] or [facility] contracted radiologist. Britney MAHONEY RAD MRI-MRA documented in this encounter Care Teams Event Marketing Assistant Relationship Specialty Start Date End Date Britney Ko CRNP 132 [facility] [place] [address] PCP - General Nurse Practitioner 09/22/21 documented as of this encounter
--- OUTSIDE RECORDS SUMMARY | 2023-06-01 03:14 | External Medical Summary | Summary of Care ---
Author Name Unknown Organization [facility] Address [address] [facility] [address] Phone [phone] Care Team Providers Care Cargo Operations Agent Name Role Phone NayaBritney britton Collette MAHONEY Primary Care Provider Reason for Visit * Reason Onset Date Comments Appointment 08/27/2021 Repeat HST Encounter Details Date Type Department Care Team (Late st Contact Info) Description 08/27/2021 Telephone Sleep Disorders Ctr [facility] [address] [place] [phone] Ivon Barajas, [address] [place] [phone] Appointment (Repeat HST) Allergies Active Allergy Reactions Criticality Noted Date Comments Sulfa Antibiotics 11/03/2016 Trimethoprim 04/14/1997 rash documented as of this encounter (statuses as of 05/04/2023) Medications Medication Sig Dispensed Refills Start Date [...] 1 Tablet daily . 0 10/30/2020 Active documented as of this encounter (statuses as of 05/04/2023) Active Problems Problem Noted Date Diagnosed Date [...] as of this encounter (statuses as of 05/04/2023) Resolved Problems Problem Noted Date Diagnosed Date [...] as of this encounter (statuses as of 05/04/2023) Immunizations Name Administration Dates Next Due COVID-19 mRNA, LNP-s, No Pre serve, 2-Dose Series (QXL [employer]) 04/22/2021,08/25/2020,08/04/2020 Diptheria/Tetanus (Adult) 07/14/19972007 Pneumococcal Conjugate Vacc, [...] Day Cigarettes 1 44 Smokeless Tobacco: Never Alcohol Use Standard Drinks/Week Comments Yes 0 (1 standard drink = 0.6 oz pur e alcohol) occ PHQ-2 Answer Date Recorded PHQ Adult Total [...] encounter Miscellaneous Notes * Telephone Encounter - Day Fuentes OSA - 05/04/2023 6:47 PM EST No apts scheduled, letter sent. * Telephone Encounter - Emerita Palomo OSA - 09/02/2021 2:52 PM EDT Left message with man to have patient to call us to reschedule hst * Telephone Encounter - Kelley Ramirez LPN - 08/30/2021 8:15 AM EDT Pt aware via Qinec g message * Telephone Encounter - Beckie Penny DO - 08/27/2021 6:20 PM EDT Please repeat HST due to insufficient recording. Will also need f/u appt rescheduled to be after the rescheduled HST. * Telephone Encounter - Kelley Ramirez LPN - 08/27/2021 4:37 PM EDT Pt did not have enough data to analyze on the HST. Repeat HST or sched in lab? documented in this encounter Plan of Treatment Upcoming Encounters Date Type Department Care Team (Late st Contact Info) Description 05/17/2023 3:50 PM EST Anticoagulation Pharmacy, [address] [place] [address] [facility] [address] [place] [address] 05/24/2023 1:00 PM EST Imaging Vascular Lab, [facility] 2nd Floor, [place] 132 [facility] [place] [address] 06/07/2023 2:10 PM EST Office Visit Vascular Surgery, [facility] 132 [facility] [place] [address] Killian Gan MD [address] [place] [address] 10/24/2023 3:00 PM EDT Office Visit Rheumatology [address] [place] [address] Kayla Jerome, HIGHER LEVEL TEACHING ASSISTANT [address] [place] [address] 11/10/2023 10:00 AM EDT Office Visit Cardiology, [facility] [address] [place] [address] Renetta Glynn PA-C [address] [place] [address] Scheduled Procedures Name Priority Associated Diagnoses Date/Ti [...] filedocumented as of this encounter Care Teams Cargo Operations Agent Relationship Specialty Start Date End Date Britney Ko CRNP [address] [place] [address] PCP - General Nurse Practitioner 09/22/21 documented as of this encounter
--- OUTSIDE RECORDS SUMMARY | 2023-06-01 03:14 | External Medical Summary | Summary of Care ---
Author Name Unknown Organization [facility] Address [address] [facility] [place] [address] Phone [phone] Care Team Providers Care Merry Go Round Attendant Name Role Phone NayaBritney britton Collette MAHONEY Primary Care Provider Encounter Details Date Type Department Care Team (Late st Contact Info) Description 05/03/2023 Result Scan Unspecified Department <No scans attached> Allergies Active Allergy Reactions Criticality Noted Date [...] mRNA, LNP-s, No Pre serve, 2-Dose Series (A Fourth Act) 04/22/2021,08/25/2020,08/04/2020 Pneumococcal Conjugate Vacc, 13 Valent (Prevnar) [...] Description 05/17/2023 3:50 PM EST Anticoagulation Pharmacy, [facility] 132 [facility] [place] [address] [facility] [address] [place] [address] 05/24/2023 1:00 PM EST Imaging Vascular Lab, [facility] 2nd Floor, [address] [place] [address] 06/07/2023 2:10 PM EST Office Visit Vascular Surgery, [facility] 132 [facility] [place] [address] Killian Gan MD [address] [place], [place] [phone] 10/24/2023 3:00 PM EDT Office Visit Rheumatology [address] [place] [address] Kayla Jerome CRNP [address] [place] [address] [place] [address] 11/10/2023 10:00 AM EDT Office Visit Cardiology, [facility] 132 [facility] [place] [address] Renetta Glynn PA-C [address] [place] [address] Scheduled Procedures Name Priority Associated Diagnoses Date/Ti me COLONOSCOPY FLEXIBLE PROXIMA L DIAGNOSTIC Recall Encounter for screening colonoscopy Health Maintenance Due Date Last Done Comments Hepatitis B (1 of 3 - Risk 3-dose series) 2013 Depression Screening 12/28/2021 12/28/2020 COVID-19 Vaccine ( season) 2023 04/22/2021, 08/25/2020, 08/04/2020 DISCUSS TOBACCO CESSATION (REFER TO SMARTSET #4058) 02/23/2023 02/23/2022 *NEPHROLOGY REFERRAL DUE TO RESISTANT [...] Procedure Name Priority Date/Time Associated Diagnosis Comments PROCEDURE SCANNED RESULT 05/03/2023 documented in this encounter Results * PROCEDURE SCANNED RESULT (05/03/2023) 05/03/2023 No Physician Data Unknown SURGERY documented in this encounter Care Teams Merry Go Round Attendant Relationship Specialty Start Date End Date Britney Ko CRNP 132 [place] [address] PCP - General Nurse Practitioner 09/22/21 documented as of this encounter
--- OUTSIDE RECORDS SUMMARY | 2023-06-01 03:14 | External Medical Summary | Summary of Care ---
Author Name Unknown Organization [facility] Address [address] [facility] [place] [address] Phone [phone] Care Team Providers Care Secretary To The Vice President Name Role Phone NayaHemalatha brittonsa Collette MAHONEY Primary Care Provider Reason for Visit * Reason Onset Date Comments Hospital Follow-Up 05/08/2023 [facility] 05/07 Encounter Details Date Type Department Care Team (Late st Contact Info) Description 05/08/2023 Telephone Ancillary [facility] [address] [place] [address] Lina Santizo, RN Hospital Follow-Up ([facility] 05/07) Allergies Active Allergy Reactions Criticality Noted Date Comments Sulfa Antibiotics 11/03/2016 Trimethoprim 04/14/1997 rash documented as of this encounter (statuses as of 05/08/2023) Medications Medication Sig Dispensed Refills Start Date [...] the morning 30 Tablet 0 05/07/2023 Active Furosemide 20 MG Oral Tablet (Lasix) TAKE 1 TABLET BY MOUTH IN THE MORNING. 90 Tablet 0 04/13/2023 3 Discontinue d(Medicatio n/Dose Changed) Losartan Potassium 25 MG Oral Tablet (Cozaar) Take 1 Tablet by mouth in the morning. 34 Tablet 8 04/14/2023 3 Discontinue d(Medicatio n List Clean Up) Hospital, Clinic, or Other Facility Administered Medication Ordered Dose Route Frequency Start Date End Date Status Albuterol Sulfate (Proventil) (2.5 MG/3ML) 0.083% inhalation solution 2.5 mgIndications:COPD, group B, by GOLD 2017 classification ([facility]) 2.5 mg NEBULIZER PRN 12/08/2022 12/08/2023 Acti ve Albuterol Sulfate (Proventil) (5 MG/ML) 0.5% *conc* inhalation solution 2.5 mgIndications:COPD, group B, by GOLD 2017 classification ([facility]) 2.5 mg NEBULIZER PRN 12/08/2022 12/08/2023 Acti ve documented as of this encounter (statuses as of 05/08/2023) Active Problems Problem Noted Date Diagnosed Date [...] as of this encounter (statuses as of 05/08/2023) Resolved Problems Problem Noted Date Diagnosed Date [...] as of this encounter (statuses as of 05/08/2023) Immunizations Name Administration Dates Next Due COVID-19 mRNA, LNP-s, No Pre serve, 2-Dose Series ([employer]) 04/22/2021,08/25/2020,08/04/2020 Pneumococcal Conjugate Vacc, 13 Valent (Prevnar) [...] encounter Miscellaneous Notes * Telephone Encounter - Lina Santizo RN - 05/08/2023 12:58 PM EST Transitions of Care Note Reason for Referral:Recent Admission Phone visit for follow up: CATHLEEN Admitted to: [facility], Date: 05/02 Discharged to: home, Date: 05/07 Diagnosis driving hospitalization: hyponatremia Concern for seizures Subdural hematoma Chronic alcoholism Source/Contact: Patient SUBJECTIVE Consent: Verbal consent for review of hospital discharge: Yes REVIEW OF SYSTEMS Patient/Other Reports: Current patient/caregiver problems or concerns: none at this time CV: Denies problems Pulmonary: Denies problems Chills/Sweats/Fever:Denies chills/sweats Denies fever Appetite:Denies problems such as nausea, vomiting, burning, decreased appetite Current diet: regular with 1200cc/day fluid restriction Bowel: denies problems Bladder: denies problems Wound (If applicable): N/A Pain:Denies Sleep:Denies problems FUNCTIONAL STATUS: ADL'S: Needs Assistance With:N/A as pt is independent IADL'S: Needs Assistance With:N/A as pt is independent Cognitive and Mental Health: denies problems, alert and oriented x 3, and able to communicate, understand instructions, process information. MEDICATION RECONCILIATION Medications: Discharge med list reviewed with patient or caregiver New medication(s) filled since hospitalization- furosemide, keppra, potassium Discontinued medication(s) since hospitalization- lostartan Reports all medications taken as prescribed. Denies side effects OBJECTIVE ASSESSMENT Medication Risk Assessment: No risks identified Did patient fail outpatient treatment? Yes Discharge instructions available for review? Yes PLAN Symptom Monitoring Interventions:Member/caregiver education - signs and symptoms to contact PrimaryCare (DO NOT DELETE-Three marcos symptoms patient is to report to PCP) 1. syncope 2. seizure 3. confusion Heading PinnerCar Shunter of Care interventions/Action Plan: Medication reconciliation and 5 - 7 day follow-up with PCP in place - Date: 05/11 Educated on role of CATHLEEN completed with patient/caregiver. Educated patient/caregiver on patient right to have input on CATHLEEN plan of care. Verification of Home Health/DME if indicated: NO Identified Care Gaps: Yes Care Gaps closed this call: Appointment made or confirmed, Post discharge appointment, and Transition of Care follow-up communication Re-evaluation of Plan of Care and progress towards goals achievement: Patient education this visit: Verbal, as above Plan to follow-up as previously scheduled, instructed to call Primary Care Provider with change in symptoms or as needed before next follow-up, discharge needs met, verbalizes understanding and agrees with plan. Lina Santizo RN documented in this encounter Plan of Treatment Upcoming Encounters Date Type Department Care Team (Late st Contact Info) Description 05/11/2023 3:00 PM EST Office Visit Family Practice [facility] [address] [place] [address] Britney Ko CRNP [address] [place] [address] 05/17/2023 3:50 PM EST Anticoagulation Pharmacy, [facility] [address] [facility] [place] [address] [place] [address] 05/24/2023 1:00 PM EST Imaging Vascular Lab, [facility] 2nd Floor, [address] [place] [address] 06/07/2023 2:10 PM EST Office Visit Vascular Surgery, [facility] 132 [facility] [place] [address] Killian Gan MD [address] [place], [place] [id number] 10/24/2023 3:00 PM EDT Office Visit Rheumatology [address] [place] [address] Kayla Jerome CRNP [address] [place] [address] [place] [address] 11/10/2023 10:00 AM EDT Office Visit Cardiology, [facility] 132 [facility] [place] [address] Renetta Glynn PA-C 132 [facility] [place] [address] Scheduled Procedures Name Priority Associated Diagnoses Date/Ti me COLONOSCOPY FLEXIBLE PROXIMA L DIAGNOSTIC Recall Encounter for screening colonoscopy Health Maintenance Due Date Last Done Comments Hepatitis B (1 of 3 - Risk 3-dose series) 2013 Depression Screening 12/28/2021 12/28/2020 COVID-19 Vaccine ( season) 2023 04/22/2021, 08/25/2020, 08/04/2020 DISCUSS TOBACCO CESSATION (REFER TO SMARTSET #5502) 02/23/2023 02/23/2022 *NEPHROLOGY REFERRAL DUE TO RESISTANT [...] filedocumented as of this encounter Care Teams Secretary To The Vice President Relationship Specialty Start Date End Date Britney Ko CRNP [address] [place] [address] PCP - General Nurse Practitioner 09/22/21 documented as of this encounter
--- OUTSIDE RECORDS SUMMARY | 2023-06-01 03:15 | External Medical Summary ---
Author Name Unknown Address Unknown Organization K01:[facility] - [address] [place] [address] Laboratory Report Ordering Provider Test Date Status TIM LIMON 05/02/2023 14:24:31 Final Observation Date Value Abnormality Reference (Units ) Status Bacteria identified in Specimen by Culture 05/02/2023 14:24:31 No growth Final Test: Culture, Blood (Site 2)
Specimen Source: Blood, Venous
Specimen Type: Blood
Specimen Date: 05/02/2023 2:24 PM
Result Date: 05/07/2023 10:01 PM
Result Status: Final result
Resulting Lab: [facility]
[address]
[place] [address]

CULTURE

No growth

null Performing Location LABORATORY [facility] [place] - [address] [place] [address]
--- OUTSIDE RECORDS SUMMARY | 2023-06-01 03:15 | External Medical Summary | Summary of Care ---
Author Name Unknown Organization [facility] Address [address] [facility] [address] Phone [phone] Care Team Providers Care Retail Store Associate Name Role Phone Britney Ko Collette MAHONEY Primary Care Provider Reason for Visit * Reason Comments Follow Up Encounter Details Date Type Department Care Team (Late st Contact Info) Description 05/02/2023 1:30 PM EST Office Visit Cardiology, [facility] [address] [place] [address] Renetta Glynn PA-C [address] [place] [address] Chronic atrial fibrillation (HCC)*; HTN, goal below 140/90; Bradycardia; Near syncope; Hyponatremia; Abnormality of aortic valve Allergies Active Allergy Reactions Criticality Noted Date [...] 24 Hour (toPROL XL)Indications:Perma nent atrial fibrillation ([facility]),History of alcohol abuse,Tobacco abuse,HTN, goal below 140/90,Hyponatremia, Valvular heart disease,PAD (peripheral artery disease) ([facility]),Dyslipidemia, goal LDL below 70 Take [...] group B, by GOLD 2017 classification ([facility]) 2.5 mg NEBULIZER PRN 12/08/2022 12/08/2023 Acti ve Albuterol Sulfate (Proventil) (5 MG/ML) 0.5% *conc* inhalation solution 2.5 mgIndications:COPD, group B, by GOLD 2017 classification ([facility]) 2.5 mg NEBULIZER PRN 12/08/2022 [...] mRNA, LNP-s, No Pre serve, 2-Dose Series ([employer]) 04/22/2021,08/25/2020,08/04/2020 Pneumococcal Conjugate Vacc, 13 Valent (Prevnar) [...] Sign Reading Time Taken Comments Blood Pressure 144/84 05/02/2023 1:35 PM EST Pulse 84 05/02/2023 1:35 PM EST Temperature - - Respiratory Rate - - Oxygen Saturation - - Inhaled Oxygen Concentration - - Weight 55.8 kg (123 lb) 05/02/2023 1:35 PM EST Height - - Body Mass Index 21.93 02/27/2023 11:25 AM EDT documented in this encounter Progress Notes * Renetta Glynn PA-C - 05/02/2023 1:34 PM EST 05/02/2023 Cardiology F/U: HPI: Patient is a 68-year-old female here today for routine cardiology follow- up. Last clinic evaluation approximately 1 year ago with Sachi MAHONEY. History includes: Permanent atrial fibrillation/flutter, [id number]-FOOd score of 4 (age, female, HTN, PAD), on coumadin Moderate to severe MR Moderate TR Chronic alcohol abuse Chronic tobacco abuse with underlying COPD- pulmonary hypertension Lung nodule stable since 2016 Persistent hyponatremia due to alcohol consumption Hypertension Dyslipidemia History of abnormal LFT's, likely alcohol induced History of episodic bradycardia reported during hospitalization- outpatient workup unremarkable History of small pericardial effusion Essential tremor History of breast cancer status post chemo and radiation Chronic fatigue Moderate PAD per MARGOTH 08/2021 Since last visit patient had echo which demonstrated echo density on aortic valve. She was to have f/u labs and blood cultures x2 but never completed this She reports is concerned with recent "seizure like activity" where she shakes on the floor.Last episode several days ago, per patient. not in exam room Sodium levels have been low in past. She admits to daily alcohol. No fever or chills recently Denies chest pain/dyspnea. BP controlled. HR controlled on exam. She admits to intermittent palpitations. She thinks the "shaking" is due to elevated HR. Review of Systems: See HPI for pertinent [...] of pleural effusion Z87.09 PHT (pulmonary hypertension) ([facility]) I27.20 Lung nodules R91.8 History of colon polyps Z86.010 History of breast cancer Z85.3 Alcohol abuse F10.10 Non-rheumatic mitral regurgitation I34.0 Chronic atrial fibrillation ([facility]) I48.20 Alcohol abuse with alcohol-induced anxiety disorder ([facility]) F10.180 Unequal leg length M21.70 Pain in both feet M79.671, M79.672 Neuropathy G62.9 PAD (peripheral artery disease) ([facility]) I73.9 COPD, group B, by GOLD 2017 classification ([facility]) J44.9 Mild episode of recurrent major depressive disorder ([facility]) F33.0 CHENG (generalized anxiety disorder) F41.1 Chronic diastolic heart failure ([facility]) I50.32 Black tarry stools K92.1 Chronic anticoagulation Z79.01 Protein-calorie malnutrition ([facility]) E46 Social History Tobacco Use Smoking status: Every Day Packs/day: 1.00 Years: 44.00 Additional pack years: 0.00 Total pack years: 44.00 Types: Cigarettes Smokeless tobacco: Never Tobacco comments: 12/14/22 smokes about 1 pack a day - refused pamphlet Vaping Use Vaping Use: Never used Substance Use Topics Alcohol use: Yes Alcohol/week: 14.0 standard drinks [...] 1 Tablet by mouth in the morning. Acetaminophen 325 MG CAPS Take 500 mg [...] Ellipta 100-62.5-25 MCG/ACT Aerosol Powder Breath Activated (Ucajmrbwstc-Bwjhauduewyc-Xyouyuguam) Inhale 1 Puff by mouth. Lidocaine 5 % External Patch (Lidoderm) Place 1 Patch over 12 hours topically on the skin daily. Place over area of pain from compression fracture. 30 Patch 1 Furosemide 20 MG Oral Tablet (Lasix) TAKE 1 TABLET BY MOUTH IN THE MORNING. 90 Tablet 0 traZODone HCl 100 MG Oral Tablet (Desyrel) Take 1 Tablet by mouth at bedtime. 90 Tablet 1 Losartan Potassium 25 MG Oral Tablet (Cozaar) Take 1 Tablet by mouth in the morning. 34 Tablet 8 Metoprolol Succinate ER 50 MG Oral Tablet Extended Release 24 Hour (toPROL XL) Take 1 Tablet by mouth in the morning. 90 Tablet 2 Rosuvastatin Calcium 20 MG Oral Tablet (Crestor) Take 1 Tablet by mouth in the morning. 90 Tablet 2 Warfarin Sodium 10 MG Oral Tablet (Coumadin) Take up to 1 tablet by mouth every evening as [id number] Tablet 4 Albuterol Sulfate (ALBUTEROL HFA) 108 (90 BASE) MCG/ACT inhaler Inhale 2 Puffs by mouth every 4 hours as needed for Shortness of Breath. (Patient not taking: Reported on 03/01/2023) 18 g 5 traMADol HCl 50 MG Oral Tablet (Ultram) Take 1 Tablet by mouth every 6 hours as needed for severe Pain (Patient not taking: Reported on 03/01/2023) 30 Tablet 0 Baclofen 10 MG Oral Tablet (Lioresal) Take 1 Tablet by mouth in the morning and 1 Tablet before bedtime. (Patient not taking: Reported on 03/01/2023) 20 Tablet 0 Cyclobenzaprine HCl 5 MG Oral Tablet (Flexeril) take 1 tablet (5 MG) orally three times a day As Needed for muscle spasm (Patient not taking: Reported on 03/01/2023) 30 Tablet 0 traMADol HCl 50 MG Oral Tablet (Ultram) take 1 tablet (50 mg) orally twice a day As Needed for pain(Patient not taking: Reported on 03/01/2023) 11 Tablet 0 methylPREDNISolone 4 MG Oral Tablet Therapy Pack (Medrol Dosepack) follow package directions (Patient not taking: Reported on 05/02/2023) 21 Tablet 0 Current Facility-Administered Medications Medication Dose Route Frequency Provider Last Rate Last Admin Albuterol Sulfate (Proventil) (2.5 MG/3ML) 0.083% inhalation solution 2.5 mg 2.5 mg Nebulizer Brendan Bae MD 2.5 mg at 12/21/22 1045 Albuterol Sulfate (Proventil) (5 MG/ML) 0.5% *conc* inhalation solution 2.5 mg 2.5 mg Nebulizer Brendan Jamison MD Physical Exam BP 144/84 | Pulse 84 | Wt 55.8 kg (123 lb) | LMP 09/20/1999 | BMI 21.93 kg/m | BSA 1.57 m BP Readings from Last 4 Encounters: 03/01/23 150/88 02/27/23 132/80 01/13/23 146/78 12/23/22 130/80 General: No acute distress. A+Ox3. HEENT: Normocephalic. Atraumatic. Conjunctiva and sclera clear. NECK: No carotid bruits. No JVD. Carotid upstrokes are brisk. Heart: irregularly irregular. S1 and S2 noted without murmur, rubs, gallops. PMI non displaced. Lungs: Clear to auscultation. No wheezes, rhonchi, rales. Abdomen: Normal bowel sounds. Soft. Nontender. No masses or organomegaly. No abdominal bruits. Extremities: No edema. No clubbing or cyanosis. Pulses: radial=2/4, posterior tibial=2/4, dorsalis pedis = 2/4. NEURO: No focal deficits. PSYCH: Normal. Lab data/imaging study review: Echo report reviewed from Jan 2023: Interpretation Summary The qualitative LV ejection fraction is 55-59% (normal). Severe bi atrial enlargement. The aortic valve has three leaflets. Mild aortic valve sclerosis is present. Trivial aortic regurgitation. There is a small mobile echodensity adherent to the non coronary aortic valve cusp. Differential diagnosis includes Lambl's excrescence, thrombus, vegetation, sclerosis or less likely fibroelastoma. Clinical correlation advised. There is moderate mitral annular calcification. The mitral valve leaflets are mildly calcified. There is borderline anterior mitral leaflet prolapse. Severe mitral regurgitation is present. The mitral regurgitation jet is posteriorly directed. Mild tricuspid regurgitation is present. The estimated pulmonary artery systolic pressure is 41 mm Hg. Compared to last available study changes are noted as follows: Severe mitral regurgitation now present. Aortic valve mobile echodensity visualized. This study has what is deemed to be a "significant abnormality" consistent with ACT 112. See additional documentation regarding notification of patient and ordering provide EKG from November 2022: Atrial fibrillation Left ventricular hypertrophy Anterior infarct [...] report reviewed dated January 03, 2020 at [facility]: The LV is normal in size. Mild [...] heart rate of 69 beats per minute, minimumheart rate 42 beats per minute, maximum heart [...] report reviewed dated November 21, 2017 at [facility]: Conclusions The rhythm is atrial fibrillation. Ejection [...] mitral regurgitation. Echocardiogram reviewed, dated 10/10/16 at [facility] and interpreted by Dr. Riggs: Conclusions -- [...] with stress. Latest Reference Range & Units 12/20/22 10:34 Sodium 135 - 146 mmol/L 129 (L) Potassium 3.5 - 5.1 mmol/L 4.7 Chloride 98 - 107 mmol/L 87 (L) CO2 22 - 32 mmol/L 25 BUN 6 - 20 mg/dL 7 Creatinine 0.5 - 1.0 mg/dL 0.4 (L) Estimated Glomerular Filtration Rate >=60 mL/min >90 Anion Gap 7 - 15 mmol/L 17 (H) Glucose 70 - 120 mg/dL 149 (H) Calcium 8.4 - 10.2 mg/dL 9.8 Magnesium 1.5 - 2.6 mg/dL 1.8 Protein 6.0 - 8.3 g/dL 7.8 (L): Data is abnormally low (H): Data is abnormally high Impression/Plan: 67 year old female 1. Permanent atrial fibrillation (HCC) Permanent atrial fibrillation/flutter, SNN5LW8-AQCd score of 4 (age, female, HTN, PAD), on coumadin. INRs have been very labile, unsure regarding medication compliance. . Due to Severe MR patient is not a candidate for DOAC -recent dizziness and palpitations -update ZIO. R/O tachybrady 2. HTN, goal below 140/90 controlled Continue metoprolol and losartan 3. Valvular heart disease - now with echodensity on aortic valve. -blood cultures, CBC as previously requested and not done. -history of moderate/severe MR -consider GUANAKO based on labs. 4. PAD (peripheral artery disease) (HCC) Moderate peripheral arterial disease. Continue ASA and statin 5. Dyslipidemia, goal LDL below 70 Borderline control, LDL improved at 73. Liver function stable. 1. Continue rosuvastatin 10 mg daily -consider increasing dose 6. History of alcohol abuse 7. Hyponatremia Ongoing alcohol use. Hyponatremia likely due to ETOH abuse. -recheck as patient reports recent "seizure activity 8. Tobacco abuse Smoking cessation encouraged I spent a total of 40 minutes on the date of service in preparation, delivery, and documentation ofthe care provided to Michelel Puente excluding any time spent in the performance of separately billed services. The patient agrees to the above plan and will call with additional questions or concerns. ER with all emergencies advised. Follow-up: Return in about 6 months (around 11/01/2023). | Check-out note: ZIO monitor today Blood work today Needs SOON appt with PCP or provider - Patient reports possible seizures? Renetta Glynn PA-C Department of Cardiology This chart was completed in part utilizing [employer] Speech Voice Recognition Software. Grammatical errors, random word insertions, prounoun errors, and incomplete sentences are an occasional consequence of this system due to software limitations, ambient noise, and hardware issues. Any formal questions or concerns about the content, text, or information contained within the body of this dictation should be directly addressed to the provider for clarification. documented in this encounter Nursing Notes * Bert Mckeon RN - 05/02/2023 1:35 PM EST Examination Room: room 1 Name: Michelle Puente Date of : (1955). Reason for Visit: for follow up Interim Hospitalization(s): denies Problems/Concerns: denies Chest Pain/SOB: gets CHURCH at times denies [facility] Discussed: Not applicable My [facility] is a way you can talk to [...] Description 05/17/2023 3:50 PM EST Anticoagulation Pharmacy, [facility] 132 [facility] [place] [address] [facility] 132 [facility] [place] [address] 05/24/2023 1:00 PM EST Imaging Vascular Lab, [facility] 2nd Floor, [place] 132 [facility] [place] [address] 06/07/2023 2:10 PM EST Office Visit Vascular Surgery, [facility] 132 [facility] [place] [address] Killian Gan MD [address] [place] [address] 10/24/2023 3:00 PM EDT Office Visit Rheumatology [address] [place] [address] Kayla Jerome CRNP [address] [place] [address] [place] [address] 11/10/2023 10:00 AM EDT Office Visit [facility], [facility] [address] Renetta Glynn PA-C 132 [place] [address] Scheduled Orders Name Type Priority Associated Diagnoses Orde r Schedule EXTERNAL EKG 8 TO 15 DAYS Holter Routine Chronic atrial fibrillation (HCC) HTN, goal below 140/90 Bradycardia Near syncope Expected: 05/02/2023 (Approximate), Expires: 05/02/2024 Scheduled Procedures Name Priority Associated Diagnoses Date/Ti me COLONOSCOPY FLEXIBLE PROXIMA L DIAGNOSTIC Recall Encounter for screening colonoscopy Health Maintenance Due Date Last Done Comments Hepatitis B (1 of 3 - Risk 3-dose series) 2013 Depression Screening 12/28/2021 12/28/2020 COVID-19 Vaccine ( season) 2023 04/22/2021, 08/25/2020, 08/04/2020 DISCUSS TOBACCO CESSATION (REFER TO SMARTSET #8570) 02/23/2023 02/23/2022 *NEPHROLOGY REFERRAL DUE TO RESISTANT [...] of this encounter Visit Diagnoses Diagnosis Chronic atrial fibrillation (HCC)- Primary Atrial fibrillation HTN, goal below 140/90 Unspecified essential hypertension Bradycardia Other specified cardiac dysrhythmias Near syncope Syncope and collapse Hyponatremia Hyposmolality and/or hyponatremia Abnormality of aortic valve Unspecified congenital anomaly of heart documented in this encounter Care Teams Retail Store Associate Relationship Specialty Start Date End Date Britney Ko CRNP [address] [place] [address] PCP - General Nurse Practitioner 09/22/21 documented as of this encounter
--- OUTSIDE RECORDS SUMMARY | 2023-06-01 03:15 | External Medical Summary ---
Author Name Unknown Address Unknown Organization K01:[facility] - [address] [place] [address] Laboratory Report Ordering Provider Test Date Status TIM LIMON 05/02/2023 14:24:31 Final Observation Date Value Abnormality Reference (Units ) Status Magnesium 05/02/2023 14:24:31 1.6 1.5-2.6 (m g/dL) Final Performing Location [facility] - [address] [place] [address]
--- OUTSIDE RECORDS SUMMARY | 2023-06-01 03:15 | External Medical Summary | Summary of Care ---
Author Name Unknown Organization [facility] Address [address] [facility] [place] [address] Phone [phone] Care Team Providers Care Research Librarian Name Role Phone Britney Ko Primary Care Provider Reason for Visit * Reason Comments Dosage Adjustment Via Phone (anticoag Cl inic) Encounter Details Date Type Department Care Team (Latest Contact Info) Description 05/02/2023 5:30 PM EST Anticoagulation Pharmacy, [facility] 132 [facility] [place] [address] [facility] [address] 132 [facility] [place] [address] Anticoagulation management encounter* Allergies Active Allergy Reactions [...] 2017 classification (FORMER[facility]) 2.5 mg NEBULIZER PRN 12/08/2022 12/08/2023 Acti ve Albuterol Sulfate (Proventil) (5 MG/ML) 0.5% *conc* inhalation solution 2.5 mgIndications:COPD, group B, by GOLD 2017 classification (FORM[facility]) 2.5 mg NEBULIZER PRN 12/08/2022 12/08/2023 Acti [...] mRNA, LNP-s, No Pre serve, 2-Dose Series (Filter Squad) 04/22/2021,08/25/2020,08/04/2020 Pneumococcal Conjugate Vacc, 13 Valent (Prevnar) [...] Progress Notes * Gaby Andrea RPh - 05/02/2023 3:26 PM EST Images from the original note were not included. Medication Therapy Disease Management - Anticoagulation Patient: Michelle Puente | : 1955 Subjective Patient-Reported Symptoms: Objective Current Warfarin Dose As of 05/02/2023 Warfarin maintenance plan: 5 mg (10 mg x 0.5) every Tue, Sat; 10 mg (10 mg x 1) all other days INR Result As of 05/02/2023 INR goal: 2.0-3.0 INR used for dosin.2 (05/02/2023) Assessment & Plan Warfarin Plan As of 05/02/2023 Full warfarin instructions: 05/02: 20 mg; Otherwise 5 mg every Tue, Sat; 10 mg all other days Next INR check: 05/17/2023 Repeat PT/INR in 2 week(s) Weekly dose: not changed Additional Dosing Information: Gaby Andrea RPh Clinical Pharmacist 05/02/2023, 3:29 PM documented in this encounter Plan of Treatment Upcoming Encounters Date Type Department Care Team (Late st Contact Info) Description 05/17/2023 3:50 PM EST Anticoagulation Pharmacy, [facility] [place] [address] [place] [address] 05/24/2023 1:00 PM EST [facility] [address] [place] [address] 06/07/2023 2:10 PM EST Office Visit Vascular Surgery, [facility] 132 [facility] [place] [address] Killian Gan MD [address] [place] [address] 10/24/2023 3:00 PM EDT Office Visit Rheumatology [place] [id number] [employer] [place] [address] Kayla Jerome CRNP [facility] [place] [employer] [place] [address] 11/10/2023 10:00 AM EDT Office Visit Cardiology, [facility] [place] [address] Renetta Glynn, PAChris 132 [facility] [place] [address] Scheduled Procedures Name Priority Associated Diagnoses Date/Ti me COLONOSCOPY FLEXIBLE PROXIMA L DIAGNOSTIC Recall Encounter for screening colonoscopy Health Maintenance Due Date Last Done Comments Hepatitis B (1 of 3 - Risk 3-dose series) 2013 Depression Screening 12/28/2021 12/28/2020 COVID-19 Vaccine ( season) 2023 04/22/2021, 08/25/2020, 08/04/2020 DISCUSS TOBACCO CESSATION (REFER TO SMARTSET #4761) 02/23/2023 02/23/2022 *NEPHROLOGY REFERRAL DUE TO RESISTANT HTN 02/28/2023 Mammogram 10/05/2023 10/04/2022, 10/21, 10/06/2020, Additional history exists COLONOSCOPY-ANNUAL AGES 18-100 12/02/2023 12/01/2022, 12/01/2022, 05/12/2017, Additional history exists GFR 12/21/2023 05/02/2023, 0805/2022, 09/30/2022, Additional history exists Albumin/Creatinine Ratio 01/02/2024 01/01/2021 [...] monitoring documented in this encounter Care Teams Research Librarian Relationship Specialty Start Date End Date Britney Ko CRNP [address] [place] [address] PCP - General Nurse Practitioner 09/22/21 documented as of this encounter"
--- OUTSIDE RECORDS SUMMARY | 2023-06-01 03:15 | External Medical Summary ---
Author Name Unknown Address Unknown Organization [id number]:[facility] - [address] [place] [id number] Laboratory Report Ordering Provider Test Date Status TIM LIMON 05/02/2023 14:24:31 Final Observation Date Value Abnormality Reference (Units ) Status Bacteria identified in Specimen by Culture 05/02/2023 14:24:31 No growth Final Test: Culture, Blood
Sp ecimen Source: Blood, Venous
Specimen Type: Blood
Specimen Date: 05/02/2023 2:24 PM
Result Date: 05/07/2023 10:01 PM
Result Status: Final result
Resulting Lab: [facility]
[address]
[place] [id number]

CULTURE

No growth

null Performing Location [facility] - [address] [place] [id number]
[2023-06-01] MEDS: MAGNESIUM SULFATE / D5W 1 GM/100 ML BAG IV SCH ×2 (04:29→06:49)
[2023-06-01 05:11] LABS: Basophils # (auto) 0.06 K/uL (0.00-0.20); Basophils % (auto) 0.7 %; Eosinophils # (auto) 0.15 K/uL (0.00-0.50); Eosinophils % (auto) 1.8 %; Hemoglobin 12.7 g/dl (12.0-16.0); Immature Granulocytes # (auto) 0.03 K/uL (0.01-0.20); Immature Granulocytes % (auto) 0.4 %; Lymphocytes # (auto) 1.81 K/uL (1.20-3.40); Lymphocytes % (auto) 21.5 %; Mean Corpuscular Hgb Conc 33.4 g/dL (32.0-36.0); Mean Corpuscular Volume 95.7 fL (80.0-100.0); Mean Platelet Volume 9.2 fL (9.4-12.4); Monocytes # (auto) 0.83 K/uL (0.11-0.59); Monocytes % (auto) 9.9 %; Neutrophils # (auto) 5.52 K/uL (1.40-6.50); Neutrophils % (auto) 65.7 %; Platelet Count 259 K/uL (130-400); RDW Coefficient of Variation 14.1 % (11.5-14.5); RDW Standard Deviation 49.5 fL (36.4-46.3); Red Blood Count 3.97 M/uL (4.20-5.40)
[2023-06-01 05:26] LABS: Anion Gap 5 (3-11); BUN Creatinine Ratio 28.3 (10-20); Blood Urea Nitrogen 13 mg/dl (6-23); Calcium 8.7 mg/dl (8.6-10.3); Carbon Dioxide 27 mmol/L (21-32); Chloride 98 mmol/L (98-107); Est GFR (African American) 116.8 ml/min; Est GFR (Non-African American) 100.8 ml/min; Glucose 100 mg/dl (70-99(Fasting)); Potassium 3.6 mmol/L (3.5-5.1); Sodium 130 mmol/L (136-145)
--- OUTSIDE RECORDS SUMMARY | 2023-06-01 05:31 | External Medical Summary | Summary of Care ---
Author Name Unknown Organization [facility] Address [address] [facility] [place] [address] Phone [phone] Care Team Providers Care Access Consultant Name Role Phone Britney Ko Primary Care Provider Reason for Referral * Evaluate & Treat - Unlimited Visits (Within 3 days (urgent)) - Pending Review Specialty Diagnoses / Procedures Referred By Marquita camargo Referred To Contact Orthopaedic Surgery / Orthopedics Diagnoses Closed fracture of ramus of left pubis, initial encounter ([facility]) Britney Ko CRNP [address] [employer] [place] [address] Referral ID Status Reason Start Date Expiration Date Visits Requested Visits Authorized [id number] Pending Review Specialty Services Required 05/31/[phone] Question Answer Referral Priority Within 3 days (urgent) Where should this appointment be scheduled? [facility] What body part is the patient being seen for? Hip - PELVIS FRACTURE What condition is the patient being seen for? Fracture including related infection Reason for Visit * Reason Onset Date Comments FYI 05/30/2023 Test Results 05/30/2023 Encounter Details Date Type Department Care Team (Late st Contact Info) Description 05/30/2023 Telephone Family Practice [facility] [address] [place] [address] Britney Ko CRNP [address] [place] [address] FYI; Test Results Allergies Active Allergy Reactions Criticality Noted Date Comments Sulfa Antibiotics 11/03/2016 Trimethoprim 04/14/1997 rash documented as of this encounter (statuses as of 05/31/2023) Medications Medication Sig Dispensed Refills Start Date [...] as of this encounter (statuses as of 05/31/2023) Active Problems Problem Noted Date Diagnosed Date [...] as of this encounter (statuses as of 05/31/2023) Resolved Problems Problem Noted Date Diagnosed Date [...] as of this encounter (statuses as of 05/31/2023) Immunizations Name Administration Dates Next Due COVID-19 mRNA, LNP-s, No Pre serve, 2-Dose Series (Tripology) 04/22/2021,08/25/2020,08/04/2020 Pneumococcal Conjugate Vacc, 13 Valent (Prevnar) [...] encounter Miscellaneous Notes * Telephone Encounter - Tania Page LPN - 05/31/2023 5:28 PM EST Justino from radiology came over to inform of critical findings from imaging. Per Justino, a possible unstable fracture. Called and spoke Britney who advised pt needs to go to ER. Called pt, willing to go to ED, spoke with pts who states he will take her. Faxed imaging report as requested by PCP * Telephone Encounter - Grace Pham MED ASSIST - 05/31/2023 12:13 PM EST Patient aware, please call and schedule Ortho. Thank you! * Telephone Encounter - Britney Ko CRNP - 05/31/2023 9:56 AM EST Please notify patient: Newly demonstrated displaced fracture of the left pelvis including superior displacement of the left superior pubic ramus. This is incompletely characterized, but would recommend further evaluation initially with pelvis radiographs, and consideration for pelvic CT. Multilevel lumbar compression fracture deformities appearing essentially unchanged. She has displaced pelvic fracture. Need further images of pelvis TODAY with x ray. Urgent ortho evaL. oRDERED BOTH. NEEDS X RAY DONE TODAY. * Telephone Encounter - Rachel Kaur RN - 05/31/2023 9:51 AM EST Received call from radiology to confirm that Nayareba has seen the result of the L spine * Telephone Encounter - Jessica Cano OSA - 05/30/2023 4:41 PM EST Calling with critical finding on imaging xray. Please call as soon as possible to receive the finding. documented in this encounter Plan of Treatment Upcoming Encounters Date Type Department Care Team (Late st Contact Info) Description 06/07/2023 2:10 PM EST Office Visit Vascular Surgery, [facility] [address] Killian Gan MD [address] [place] [address] 06/07/2023 5:30 PM EST Anticoagulation Pharmacy, [facility] [address] [facility] [address] [facility] 132 [place] [address] 06/30/2023 10:00 AM EST Office Visit Family Practice [facility] [address] [facility] [address] Britney Ko CRNP 132 [facility] [place] [address] 10/02/2023 2:20 PM EDT Office Visit Nephrology, [facility] 200 [facility] [place] [address] Dell Owen MD 200 [facility] [place] [address] 10/24/2023 3:00 PM EDT Office Visit Rheumatology [address] [place] [address] Kayla Jerome CRNP [address] [place] [address] [place] [address] 11/10/2023 10:00 AM EDT Office Visit Cardiology, [facility] 132 [facility] [place] [address] Renetta Glynn PA-C 132 [facility] [place] [address] Scheduled Orders Name Type Priority Associated Diagnoses Orde r Schedule XR HIP UNILAT 2-3 VIEWS INCLUDING AP PELVIS Medical Imaging STAT Closed fracture of ramus of left pubis, initial encounter (HCC) Ordered: 05/31/2023 Scheduled Procedures Name Priority Associated Diagnoses Date/Ti me COLONOSCOPY FLEXIBLE PROXIMA L DIAGNOSTIC Recall Encounter for screening colonoscopy Scheduled Referrals Name Type Priority Associated Diagnoses Order Schedule ORTHOPAEDICS REFERRAL OP Referral Within 3 days (urgent) Closed fracture of ramus of left pubis, initial encounter (HCC) Ordered: 05/31/2023 Health Maintenance Due Date Last Done Comments Depression Screening 12/28/2021 12/28/2020 COVID-19 Vaccine ( season) 2023 04/22/2021, 08/25/2020, 08/04/2020 DISCUSS TOBACCO CESSATION (REFER TO SMARTSET #3291) 02/23/2023 02/23/2022 Mammogram 10/05/2023 10/04/2022, 10/21, 10/06/2020, Additional history exists COLONOSCOPY-ANNUAL AGES 18-100 12/02/2023 12/01/2022, 12/01/2022, 05/12/2017, Additional history exists Albumin/Creatinine Ratio 01/02/2024 01/01/2021 O2 ASSESSMENT COMPLETED IN PAST YEAR FOR COPD 05/26/2024 05/26/2023 GFR 05/29/2024 05/29/2023, 08/2023, 05/02/2023, Additional history exists DXA Scan 12/31/2025 12/31/2018, [...] Name Priority Date/Time Associated Diagnosis Comments XR PELVIS COMPLETE Routine 05/31/2023 4: 35 PM EST Closed fracture of ramus of left pubis, initial encounter ([facility]) documented in this encounter Results * XR PELVIS COMPLETE (05/31/2023 4:35 PM EST) Anatomical Region Laterality Modality Pelvis, Lower Extremity Computed Radiography 05/31/2023 5:20 PM EST Impressions 05/31/2023 5:18 PM EST IMPRESSION Interval displaced fracture of the left superior and inferior pubic rami, pattern of fracture is suggestive of instability, recommend referral to emergency department, assessment and consideration of trauma imaging to assess for associated traumatic injuries. Ordering physician staff messaged and findings submitted to the radiology OBI critical results workflow. Narrative 05/31/2023 5:18 PM EST EXAM XR PELVIS COMPLETE-05/31/2023 4:35 pm HISTORY FRACTURE PELVIS TECHNIQUE Three views of the pelvis. COMPARISON Radiographs 05/25/2023. CT 12/21/2022. FINDINGS Interval displaced fracture of the left superior and inferior pubic rami. Apparent angulation of the is lateral iliac wing may represent rotational instability. Degenerative changes of the visualized lumbar spine. Vascular calcifications. Frontal view of the right hip demonstrates partially visualized intramedullary julian and nail fixation of a healed proximal femoral fracture, mild hypertrophic changes and preserved joint space. Frontal view of the left hip demonstrates mild hypertrophic changes and preserved joint space. Procedure Note John Grant MD - 05/31/2023 EXAM XR PELVIS COMPLETE-05/31/2023 4:35 pm HISTORY FRACTURE PELVIS TECHNIQUE Three views of the pelvis. COMPARISON Radiographs 05/25/2023. CT 12/21/2022. FINDINGS Interval displaced fracture of the left superior and inferior pubic rami.Apparent angulation of the is lateral iliac wing may represent rotationalinstability. Degenerative changes of the visualized lumbar spine.Vascular calcifications. Frontal view of the right hip demonstratespartially visualized intramedullary julian and nail fixation of a healedproximal femoral fracture, mild hypertrophic changes and preserved jointspace. Frontal view of the left hip demonstrates mild hypertrophicchanges and preserved joint space. IMPRESSION IMPRESSION Interval displaced fracture of the left superior and inferior pubic rami,pattern of fracture is suggestive of instability, recommend referral toemergency department, assessment and consideration of trauma imaging toassess for associated traumatic injuries. Ordering physician staff messaged and findings submitted to the radiologyA critical results workflow. Britney [facility] ([facility]) documented in this encounter Visit Diagnoses Diagnosis Closed fracture of ramus of left pubis, initial encounter (HCC)- Primary documented in this encounter Care Teams Access Consultant Relationship Specialty Start Date End Date Britney Ko CRNP [address] [place] [address] PCP - General Nurse Practitioner 09/22/21 documented as of this encounter
[2023-06-01 05:38] LABS: INR 5.1 (0.9-1.1); Prothrombin Time 50.8 Seconds (9.0-12.0)
[2023-06-01 06:13] LABS: Appearance Urine Cloudy (Clear); Bacteria Urine Automated 1+ (Negative); Bilirubin Urine Negative (Negative); Blood Urine Negative (Negative); Color Urine Yellow; Glucose Urine UA Negative (Negative); Ketones Urine Negative (Negative); Leukocyte Esterase Urine 2+ (Negative); Nitrite Urine Positive (Negative); Protein Urine Negative (Negative); Specific Gravity Urine 1.012 (1.000-1.030); Urobilinogen Urine Negative (Negative); WBC Urine Automated >30 /hpf (0-5); pH Urine 6.5 (4.5-7.5)
--- NOTE | 2023-06-01 06:45 | XRay Report ---
XR chest 1V portable HISTORY: hyponatremia COMPARISON: Chest 08/15/2022. FINDINGS: No pneumothorax. No pleural effusions. The heart is mildly enlarged. This remains unchanged . Mild interstitial thickening which is likely chronic. No evidence for pulmonary edema. There are ca lcifications within the aortic knob. No acute fractures identified. Postoperative changes again noted within the proximal right humerus. IMPRESSION: No significant change compared to the prior study. No acute process. ACT 112: Negative or not required by law. Electronically signed by: Jefferson Vasquez M.D. 06/01/2023 6:44 AM
[2023-06-01] MEDS ORDERED: NON-FORMULARY MEDICATION (Fluticasone-Umeclidin-Vilanter [Trelegy Ellipta] 100-62.5-25 mcg INH SCH (09:00)
[2023-06-01] MEDS: ROSUVASTATIN CALCIUM 10 MG TAB PO SCH (09:48)
[2023-06-01] MEDS: THIAMINE HCL 100 MG TAB PO SCH (09:48)
[2023-06-01] MEDS: UMECLIDINIUM/VILANTEROL 62.5/25MCG 7 PUFFS/INHALER INH SCH (09:48)
[2023-06-01] MEDS: METOPROLOL SUCC 50MG EXT REL TAB PO SCH (09:48)
[2023-06-01] MEDS: FOLIC ACID 400 MCG TAB PO SCH (09:48)
[2023-06-01] MEDS: FLUTICASONE FUROATE 100MCG 14 PUFFS/INHALER INH SCH (09:48)
[2023-06-01] MEDS: levETIRAcetam 500 MG TAB PO SCH ×2 (09:48→20:07)
[2023-06-01] MEDS: MAGNESIUM OXIDE 400 MG TAB PO SCH (09:48)
[2023-06-01] MEDS: AMMONIUM LACTATE 12% LOTION 225 GM BTL EXT SCH (09:48)
[2023-06-01] MEDS: oxyCODONE HCL IR 5 MG TAB (IMMEDIATE RELEASE) PO PRN (09:50)
[2023-06-01] MEDS ORDERED: LORazepam 1 MG in SYRINGE 0.5 ML IV PRN (10:13)
--- NOTE | 2023-06-01 12:28 | Orthopedic Consultation ---
Date of Consultation June 01, 2023 Assessment & Plan (1) Pelvic ring fracture: Lateral compression pelvic ring type fracture. Patient currently minimally symptomatic but fairly radiographic and CT appearance of displacement and comminution. Due to some sacral involvement protected weightbearing 50% with walker would be prudent and would recommend monitoring anemia as this could be associated with internal bleeding and ongoing blood loss due to severity of fracture. Would recommend AP pelvis x-ray so fracture can be monitored radiographically during follow-up. History of Present Illness Reason for Consultation: Pelvic fracture Attending Physician: Chiara Morfin MD Allergies Allergy/AdvReac Type Severity Reaction Status Date / Time Sulfa (Sulfonamide Allergy Intermediate Rash Verified 05/31/23 20:58 Antibiotics) trimethoprim Allergy Intermediate Rash Verified 05/31/23 20:58 Home Medications Medication Instructions Recorded Confirmed Type folic acid 400 mcg tablet 0.4 mg PO DAILY 01/02/20 05/31/23 History thiamine HCl (vitamin B1) 100 mg 100 mg PO QAM 01/02/20 05/31/23 History tablet (Vitamin B-1) ammonium lactate 12 % lotion 1 applic topical DAILY 08/09/22 05/31/23 History rosuvastatin 10 mg tablet 10 mg PO QAM 08/09/22 05/31/23 History acetaminophen 500 mg tablet 500 mg PO DIRECTED PRN Pain 05/02/23 05/31/23 History (Tylenol Extra Strength) albuterol sulfate 2.5 mg/3 mL 2.5 mg inhalation DIRECTED PRN 05/02/23 05/31/23 History (0.083 %) solution for nebulization NEEDED fluticasone fur. 100 mcg-umeclid 1 inh inhalation DAILY 05/02/23 05/31/23 History 62.5 mcg-vilant 25 mcg inhalat.powder (Trelegy Ellipta) lidocaine 5 % topical patch 1 patch topical DAILY PRN Pain 05/02/23 05/31/23 History magnesium oxide 200 mg PO DAILY 05/02/23 05/31/23 History metoprolol succinate 50 mg 50 mg PO QAM 05/02/23 05/31/23 History tablet,extended release 24 hr trazodone 100 mg tablet 100 mg PO HS 05/02/23 05/31/23 History warfarin 10 mg tablet See Rx Instructions .Route .COMPLEX 05/02/23 05/31/23 History furosemide 20 mg tablet 20 mg PO BID17 #60 tabs 05/07/23 05/31/23 Rx levetiracetam 500 mg tablet 500 mg PO BID #60 tabs 05/07/23 05/31/23 Rx (Keppra) potassium chloride 20 mEq 20 meq PO QAM #30 tabs 05/07/23 05/31/23 Rx tablet,extended release(part/cryst) Patient History Medical History Seizures On anticoagulant therapy warfarin daily Chronic diastolic (congestive) heart failure Hypomagnesemia Hyponatremia chronically low. Liver enzyme elevation Cancer LEFT BREAST (CHEMO AND RADIATION) Anemia Migraine Left ventricular enlargement BEING MONITORED BY ASHLY DUMONT Hypertension Chronic obstructive pulmonary disease Afib on warfarin/metoprolol---follows with Dr. Valdez Tobacco use disorder Surgical History History of bilateral cataract extraction History of surgery right femur fx repair 11/24/[address] [facility] Hx of shoulder surgery RT SHOULDER (S/P FX) History of section X1 History of colonoscopy History of partial mastectomy LEFT History of tooth extraction Family History Other Cancer Heart disease No family history of adverse response to anesthesia Social History Smoking Status: Current every day smoker Tobacco Type: Cigarettes Cigarettes Per Day: 20 (advised); Second Hand Exposure: Yes; Do You Dip or Chew Tobacco: No; Hx Alcohol Use: Yes Alcohol type: beer Alcohol Intake Frequency: 4 or More x per/Week Hx Substance Use: No Preferred Language: Kyrgyz Communication Ability: Effective 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 Physical Exam Physical Exam: Left leg out to length hip range of motion painful no substantial tenderness over pelvis. Minor sacral pain. Results & Data Vital Signs (Past 12 Hours) Vital Signs Temp Pulse Pulse Resp BP Pulse Ox O2 Del Method 06/01/23 09:37 Room Air 06/01/23 09:37 36.8 C 87 20 140/83 94 Room Air 06/01/23 09:00 Room Air 06/01/23 09:00 36.8 C 79 20 147/81 H 96 Room Air 06/01/23 07:15 77 06/01/23 04:30 75 16 140/83 98 Room Air 06/01/23 03:07 80 Laboratory Results Hemoglobin 12.7 Diagnostic Findings Comminuted pubic rami fracture superior and inferior pubic ramus and small inferior sacral ala fracture with sacroiliac joint arthritic changes no disruption sacroiliac joint.
--- NOTE | 2023-06-01 12:48 | Electrocardiogram Report ---
Test Reason : Blood Pressure : / mmHG Vent. Rate : 094 BPM Atrial Rate : 000 BPM P-R Int : 000 ms QRS Dur : 088 ms QT Int : 352 ms P-R-T Axes : 000 -15 080 degrees QTc Int : 440 ms Atrial fibrillation Minimal voltage criteria for LVH, may be normal variant ( Sokolow-Jones ) Old Anteroseptal infarct (cited on or before 09-AUG-2022) Abnormal ECG When compared with ECG of 02-MAY-2023 18:35, Nonspecific T wave abnormality no longer present Anterior leads Confirmed by Dago Siu ([id number]) on 06/01/2023 12:47:47 PM Referred By: Britney Ko Confirmed By:Dago Siu
[2023-06-01] MEDS ORDERED: ALBUTEROL 0.083% NEBU SOLN 3 ML VIAL INH PRN (14:26)
--- NOTE | 2023-06-01 14:27 | Communication Note ---
Date of Service: June 01, 2023 Patient was seen and examined at bedside. 68-year-old female with PMH of chronic hyponatremia, hyperlipidemia, COPD, lung nodules, pulmonary hypertension, peripheral artery disease, chronic diastolic CHF [EF 55%, 2022 TTE], hypertension, chronic atrial fibrillation on Coumadin, protein calorie malnutrition, essential tremor, alcoholism, neuropathy, depression, ongoing tobacco abuse, Lt breast cancer status post surgery/chemoradiation, general anxiety disorder, seizure disorder, subdural hematoma April 2023/Coumadin resumed following [facility] neurology recommendation, chronic thrombocytopenia, ambulatory dysfunction, ongoing tobacco/alcohol abuse presented to the ED 05/31 because she fell backwards [landing on her bottom and resulting in head trauma] about 2 weeks ago [employer] and 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 She is being managed for the following: Recurrent falls Traumatic pelvic fracture Ambulatory dysfunction Patient with recurrent falls secondary to deconditioning secondary to chronic malnutrition/ongoing alcohol use/various comorbidities. Patient noted to have pelvic fracture in outpatient x-ray. See above. Admitting CT head with no acute findings. Admitting CT pelvis with left sacral ala fracture, left pubic symphysis and comminuted left anterior pubic rami fractures Patient reports pain under control. Ortho evaluated, protected weightbearing 50% with walker, AP pelvic x-ray for monitoring purposes. PT/OT Monitor H&H. Acute UTI: UA s/o acute UTI, c/w atb 06/01, f/u urine Cx. Chronic hyponatremia: Losartan was discontinued in prior admission in favor of Lasix. Admitting sodium of 127, about patient's baseline. Continue with fluid restriction. Monitor sodium level. Continue with Lasix. Seizure: Patient was evaluated as an outpatient in 2022 for events suspected to be seizure. Patient was started on Keppra 500 mg twice daily in April 2023 during inpatient admission. Continue. Subdural hematoma: Patient had subdural hematoma along the right convexity in April 2023. Follow-up outpatient CT head showed resolution of subdural hematoma and patient resumed on Coumadin following [facility] neurology recommendation. Fall precaution. Alcoholism: Patient continues to drink alcohol frequently. Patient has been counseled and encouraged alcohol cessation, patient voices understanding. Continue with thiamine and folic acid. Continue CATHY S at Risk protocol Other chronic medical conditions: Continue with/resume home meds as and when able. COPD, stable on home inhalers, continue home inhalers Ongoing tobacco abuse, counseled, nicotine patch as needed Chronic diastolic CHF: Follows with cardiology, stable. History of A-fib: Continue with home metoprolol and Coumadin as able. coumadin on hold, pt/inr 5.1, trend pt/inr. History of severe peripheral vascular disease: Vascular surgery has recommended intervention but patient seems to have declined as per epic. Con tinue with Coumadin and statin. Hypertension: Continue with home bp meds. Hyperlipidemia: Continue with home meds statin Depression and anxiety: Continue with home trazodone History of breast cancer: Status post chemo and radiation in surgery. Stable. DVT prophylaxis: on coumadin, held now d/t high inr. Disposition: PT/OT when able, after ortho eval Full code Patient's Mr. Jai Puente [[phone]].
[2023-06-01] MEDS: NICOTINE 21 MG/24 HR TDSY TD SCH (14:44)
[2023-06-01] MEDS: cefTRIAXone SODIUM 2,000 MG in DEXTROSE 5 % MINI-B 50 ML IV SCH (17:02)
[2023-06-01] MEDS: FUROSEMIDE 20 MG TAB PO SCH (17:37)
[2023-06-01] MEDS: traZODone HCL 100 MG TAB PO SCH (20:11)
[2023-06-01] MEDS: ACETAMINOPHEN 325 MG TAB PO PRN (21:41)
[2023-06-02] MEDS ORDERED: MELATONIN 3 MG TAB PO PRN (01:19)
[2023-06-02 06:41] LABS: Hematocrit (blood only) 37.2 % (37.0-47.0); Mean Corpuscular Hemoglobin 32.2 pg (25.0-34.0); Mean Corpuscular Hgb Conc 34.9 g/dL (32.0-36.0); Mean Corpuscular Volume 92.1 fL (80.0-100.0); Mean Platelet Volume 9.6 fL (9.4-12.4); Platelet Count 280 K/uL (130-400); RDW Coefficient of Variation 13.9 % (11.5-14.5); RDW Standard Deviation 47.8 fL (36.4-46.3); Red Blood Count 4.04 M/uL (4.20-5.40); White Blood Count 7.28 K/ul (4.8-10.8)
[2023-06-02 06:52] LABS: INR 2.8 (0.9-1.1); Prothrombin Time 28.4 Seconds (9.0-12.0)
[2023-06-02 07:24] LABS: Calcium 8.9 mg/dl (8.6-10.3); Magnesium 1.4 mg/dl (1.7-2.4); Potassium 3.1 mmol/L (3.5-5.1)
[2023-06-02 07:30] LABS: BUN Creatinine Ratio 26.1 (10-20); Est GFR (African American) 116.8 ml/min; Est GFR (Non-African American) 100.8 ml/min; Phosphorus 3.8 mg/dl (2.5-4.9)
[2023-06-02] MEDS ORDERED: POTASSIUM CHLORIDE CRTAB 20 MEQ TABCR PO STA (08:50)
--- NOTE | 2023-06-02 09:43 | XRay Report ---
XR pelvis 1-2V routine CLINICAL HISTORY: Left pelvic fracture. COMPARISON: CT of the pelvis May 31, 2023. FINDINGS: Healed intertrochanteric fracture of the right femur is noted. Visualized portions of the right femoral hardware are intact. No acute proximal femoral fracture is present. An acute left sacra l ala fracture is better depicted on CT of May 31, 2023. Acute displaced left superior and inferi or pubic rami fractures are noted. The left superior pubic ramus fracture is displaced 2.5 cm. Fractu res are significantly comminuted. Alignment appears unchanged. IMPRESSION: 1. No change in alignment of the acute comminuted displaced left pubic rami fractures since prior CT. 2. Acute left sacral ala fracture, better depicted on prior CT. 3. Healed intertrochanteric fracture of the right femur. ACT 112: Negative or not required by law. Electronically signed by: Donny Smith M.D. 06/02/2023 9:41 AM
[2023-06-02] MEDS: MAGNESIUM SULFATE / D5W 1 GM/100 ML BAG IV SCH ×2 (10:13→12:33)
[2023-06-02] MEDS: FOLIC ACID 400 MCG TAB PO SCH (10:14)
[2023-06-02] MEDS: levETIRAcetam 500 MG TAB PO SCH ×2 (10:15→20:02)
[2023-06-02] MEDS: FUROSEMIDE 20 MG TAB PO SCH ×2 (10:15→17:25)
[2023-06-02] MEDS: MAGNESIUM OXIDE 400 MG TAB PO SCH (10:15)
[2023-06-02] MEDS: METOPROLOL SUCC 50MG EXT REL TAB PO SCH (10:16)
[2023-06-02] MEDS: POTASSIUM CHLORIDE CRTAB 20 MEQ TABCR PO SCH (10:16)
[2023-06-02] MEDS: THIAMINE HCL 100 MG TAB PO SCH (10:17)
[2023-06-02] MEDS: ROSUVASTATIN CALCIUM 10 MG TAB PO SCH (10:17)
[2023-06-02] MEDS: NICOTINE 21 MG/24 HR TDSY TD SCH (10:36)
[2023-06-02] MEDS: FLUTICASONE FUROATE 100MCG 14 PUFFS/INHALER INH SCH ×2 (11:47→12:32)
[2023-06-02] MEDS: UMECLIDINIUM/VILANTEROL 62.5/25MCG 7 PUFFS/INHALER INH SCH ×2 (11:47→12:32)
[2023-06-02] MEDS: AMMONIUM LACTATE 12% LOTION 225 GM BTL EXT SCH (12:33)
[2023-06-02] MEDS: oxyCODONE HCL IR 5 MG TAB (IMMEDIATE RELEASE) PO PRN ×2 (12:50→18:50)
[2023-06-02] MEDS: cefTRIAXone SODIUM 2,000 MG in DEXTROSE 5 % MINI-B 50 ML IV SCH (15:30)
--- NOTE | 2023-06-02 16:06 | Hospitalist Progress Note ---
Date of Service June 02, 2023 Assessment & Plan (1) Pelvic ring fracture: Plan 68-year-old female with PMH of chronic hyponatremia, hyperlipidemia, COPD, lung nodules, pulmonary hypertension, peripheral artery disease, chronic diastolic CHF [EF 55%, 2022 TTE], hypertension, chronic atrial fibrillation on Coumadin, protein calorie malnutrition, essential tremor, alcoholism, neuropathy, depression, ongoing tobacco abuse, Lt breast cancer status post surgery/chemoradiation, general anxiety disorder, seizure disorder, subdural hematoma April 2023/Coumadin resumed following G neurology recommendation, chronic thrombocytopenia, ambulatory dysfunction, ongoing tobacco/alcohol abuse presented to the ED 05/31 because she fell backwards [landing on her bottom and resulting in head trauma] 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 She is being managed for the following: Recurrent falls Traumatic pelvic fracture Ambulatory dysfunction Pelvic ring fracture likely in the setting of age-related osteoporosis Patient with recurrent falls secondary to deconditioning secondary to chronic malnutrition/ongoing alcohol use/various comorbidities. Patient noted to have pelvic fracture in outpatient x-ray. See above. Admitting CT head with no acute findings. Admitting CT pelvis with left sacral ala fracture, left pubic symphysis and comminuted left anterior pubic rami fractures Patient reports pain under control. Ortho evaluated, protected weightbearing 50% with walker, AP pelvic x-ray for monitoring purposes. PT/OT Monitor H&H. HnH stable. Acute UTI: UA s/o acute UTI, c/w atb 06/01, f/u urine Cx. Chronic hyponatremia: Losartan was discontinued in prior admission in favor of Lasix. Admitting sodium of 127, about patient's baseline. Continue with fluid restriction. Monitor sodium level. Continue with Lasix. na improving. Seizure: Patient was evaluated as an outpatient in 2022 for events suspected to be seizure. Patient was started on Keppra 500 mg twice daily in April 2023 during inpatient admission. Continue. Subdural hematoma: Patient had subdural hematoma along the right convexity in April 2023. Follow-up outpatient CT head showed resolution of subdural hematoma and patient resumed on Coumadin following G neurology recommendation. Fall precaution. Alcoholism: Patient continues to drink alcohol frequently. Patient has been counseled and encouraged alcohol cessation, patient voices understanding. Continue with thiamine and folic acid. Continue CATHY S at Risk protocol Other chronic medical conditions: Continue with/resume home meds as and when able. COPD, stable on home inhalers, continue home inhalers Ongoing tobacco abuse, counseled, nicotine patch as needed Chronic diastolic CHF: Follows with cardiology, stable. History of A-fib: Continue with home metoprolol and Coumadin as able. will resume coumading as pt/inr therapeutic today History of severe peripheral vascular disease: Vascular surgery has recommended intervention but patient seems to have declined as per epic. Continue with Coumadin and statin. Hypertension: Continue with home bp meds. Hyperlipidemia: Continue with home meds statin Depression and anxiety: Continue with home trazodone History of breast cancer: Status post chemo and radiation in surgery. Stable. DVT prophylaxis: on coumadin, Disposition: PT/OT when able, after ortho eval Full code Patient's Mr. Jai Puente [[phone]]. Admission and Anticipated Discharge Date Admission Date: June 01, 2023 Subjective Patient was seen and examined at bedside. Patient was lying in bed, on room air, resting comfortably, not in any acute distress. Patient reports hip pain under control, denies any headache or fever or dizziness or chest pain or palpitation abdominal pain. Physical Exam Physical Exam: GENERAL: NAD, pleasant, no respiratory distress, on RA SKIN: Normal color, warm HEENT: [place] palpebral conjunctivae, no ptosis, dry buccal mucosa NECK : Supple, no tenderness CHEST : Decreased breath sounds, no tenderness HEART : Irregular, systolic murmur ABDOMEN: Some distention, left pelvic tenderness EXTREMITIES : No LE tenderness, no LE swelling NEUROLOGIC : Coherent, no facial asymmetry, gait and stance not assessed Results & Data Results & Data Vital Signs (Past 12 Hours) Vital Signs Temp Pulse Pulse Resp BP Pulse Ox O2 Del Method 06/02/23 15:46 36.3 C L 84 18 129/85 97 Room Air 06/02/23 11:23 36.5 C 63 18 122/79 95 Room Air 06/02/23 08:00 Room Air 06/02/23 07:52 36.9 C 65 18 137/83 95 Room Air 06/02/23 07:29 67
[2023-06-02] MEDS: WARFARIN SOD 10 MG TAB PO SCH (17:24)
[2023-06-02] MEDS: traZODone HCL 100 MG TAB PO SCH (20:02)
[2023-06-03 06:35] LABS: Hematocrit (blood only) 38.5 % (37.0-47.0); Hemoglobin 12.7 g/dl (12.0-16.0); Mean Corpuscular Hemoglobin 31.3 pg (25.0-34.0); Mean Corpuscular Volume 94.8 fL (80.0-100.0); Mean Platelet Volume 9.6 fL (9.4-12.4); Platelet Count 279 K/uL (130-400); RDW Coefficient of Variation 13.9 % (11.5-14.5); RDW Standard Deviation 48.4 fL (36.4-46.3); Red Blood Count 4.06 M/uL (4.20-5.40); White Blood Count 6.34 K/ul (4.8-10.8)
[2023-06-03 06:44] LABS: Calcium 9.1 mg/dl (8.6-10.3); Creatinine Clr Calc Pharmacy 82.8 ml/min; Est GFR (African American) 113.7 ml/min; Est GFR (Non-African American) 98.1 ml/min; Magnesium 1.6 mg/dl (1.7-2.4); Phosphorus 4.3 mg/dl (2.5-4.9); Potassium 3.8 mmol/L (3.5-5.1)
[2023-06-03 06:49] LABS: INR 2.7 (0.9-1.1); Prothrombin Time 27.9 Seconds (9.0-12.0)
[2023-06-03] MEDS: FUROSEMIDE 20 MG TAB PO SCH ×2 (08:55→16:07)
[2023-06-03] MEDS: NICOTINE 21 MG/24 HR TDSY TD SCH (08:56)
[2023-06-03] MEDS: ROSUVASTATIN CALCIUM 10 MG TAB PO SCH (08:56)
[2023-06-03] MEDS: levETIRAcetam 500 MG TAB PO SCH ×2 (08:56→20:07)
[2023-06-03] MEDS: METOPROLOL SUCC 50MG EXT REL TAB PO SCH (08:56)
[2023-06-03] MEDS: MAGNESIUM OXIDE 400 MG TAB PO SCH (08:57)
[2023-06-03] MEDS: THIAMINE HCL 100 MG TAB PO SCH (08:57)
[2023-06-03] MEDS: FOLIC ACID 400 MCG TAB PO SCH (08:57)
[2023-06-03] MEDS: FLUTICASONE FUROATE 100MCG 14 PUFFS/INHALER INH SCH (09:04)
[2023-06-03] MEDS: MAGNESIUM SULFATE / D5W 1 GM/100 ML BAG IV SCH ×2 (09:04→10:17)
[2023-06-03] MEDS: POTASSIUM CHLORIDE CRTAB 20 MEQ TABCR PO SCH (09:04)
[2023-06-03] MEDS: UMECLIDINIUM/VILANTEROL 62.5/25MCG 7 PUFFS/INHALER INH SCH (09:05)
[2023-06-03] MEDS: AMMONIUM LACTATE 12% LOTION 225 GM BTL EXT SCH (09:58)
[2023-06-03] MEDS: ACETAMINOPHEN 325 MG TAB PO PRN (11:16)
--- NOTE | 2023-06-03 14:40 | Hospitalist Progress Note ---
Date of Service June 03, 2023 Assessment & Plan (1) Pelvic ring fracture: Plan 68-year-old female with PMH of chronic hyponatremia, hyperlipidemia, COPD, lung nodules, pulmonary hypertension, peripheral artery disease, chronic diastolic CHF [EF 55%, 2022 TTE], hypertension, chronic atrial fibrillation on Coumadin, protein calorie malnutrition, essential tremor, alcoholism, neuropathy, depression, ongoing tobacco abuse, Lt breast cancer status post surgery/chemoradiation, general anxiety disorder, seizure disorder, subdural hematoma April 2023/Coumadin resumed following G neurology recommendation, chronic thrombocytopenia, ambulatory dysfunction, ongoing tobacco/alcohol abuse presented to the ED 05/31 because she fell backwards [landing on her bottom and resulting in head trauma] about 2 weeks ago [employer]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 She is being managed for the following: Recurrent falls Traumatic pelvic fracture Ambulatory dysfunction Pelvic ring fracture likely in the setting of age-related osteoporosis Patient with recurrent falls secondary to deconditioning secondary to chronic malnutrition/ongoing alcohol use/various comorbidities. Patient noted to have pelvic fracture in outpatient x-ray. See above. Admitting CT head with no acute findings. Admitting CT pelvis with left sacral ala fracture, left pubic symphysis and comminuted left anterior pubic rami fractures Patient reports pain under control. Ortho evaluated, protected weightbearing 50% with walker, AP pelvic x-ray for monitoring purposes. Follow-up with Ortho on discharge. PT/OT Monitor H&H. HnH stable. Acute UTI: UA s/o acute UTI, c/w atb 06/01, f/u urine Cx. Chronic hyponatremia: Losartan was discontinued in prior admission in favor of Lasix. Admitting sodium of 127, about patient's baseline. Continue with fluid restriction. Monitor sodium level. Continue with Lasix. na improving. Seizure: Patient was evaluated as an outpatient in 2022 for events suspected to be seizure. Patient was started on Keppra 500 mg twice daily in April 2023 during inpatient admission. Continue. Subdural hematoma: Patient had subdural hematoma along the right convexity in April 2023. Follow-up outpatient CT head showed resolution of subdural hematoma and patient resumed on Coumadin following G neurology recommendation. Fall precaution. Alcoholism: Patient continues to drink alcohol frequently. Patient has been counseled and encouraged alcohol cessation, patient voices understanding. Continue with thiamine and folic acid. Continue CATHY S at Risk protocol Other chronic medical conditions: Continue with/resume home meds as and when able. COPD, stable on home inhalers, continue home inhalers Ongoing tobacco abuse, counseled, nicotine patch as needed Chronic diastolic CHF: Follows with cardiology, stable. History of A-fib: Continue with home metoprolol and Coumadin as able.c/w coumading as pt/inr therapeutic today . Monitor PT/INR. History of severe peripheral vascular disease: Vascular surgery has recommended intervention but patient seems to have declined as per epic. Continue with Coumadin and statin. Hypertension: Continue with home bp meds. Hyperlipidemia: Continue with home meds statin Depression and anxiety: Continue with home trazodone History of breast cancer: Status post chemo and radiation in surgery. Stable. DVT prophylaxis: on coumadin, Disposition: PT/OT when able, after ortho eval Full code Patient's Mr. Jai Puente [[phone]]. Admission and Anticipated Discharge Date Admission Date: June 01, 2023 Subjective Patient was seen and examined at bedside. Patient was lying in bed, on room air, resting comfortably, not in any acute distress. Patient reports hip pain under control, denies any headache or fever or dizziness or chest pain or palpitation abdominal pain. Patient reports eating okay and moving bowels okay. Physical Exam Physical Exam: GENERAL: NAD, pleasant, no respiratory distress, on RA SKIN: Normal color, warm HEENT: [place] palpebral conjunctivae, no ptosis, dry buccal mucosa NECK : Supple, no tenderness CHEST : Decreased breath sounds, no tenderness HEART : Irregular, systolic murmur ABDOMEN: Some distention, left pelvic tenderness EXTREMITIES : No LE tenderness, no LE swelling NEUROLOGIC : Coherent, no facial asymmetry, gait and stance not assessed Results & Data Results & Data Vital Signs (Past 12 Hours) Vital Signs Temp Pulse Pulse Resp BP Pulse Ox O2 Del Method 06/03/23 11:33 36.4 C L 70 18 110/76 95 Room Air 06/03/23 08:00 82 06/03/23 07:59 Room Air 06/03/23 07:59 36.8 C 75 16 136/76 93 Room Air
[2023-06-03] MEDS: WARFARIN SOD 10 MG TAB PO SCH (16:06)
[2023-06-03] MEDS: cefTRIAXone SODIUM 2,000 MG in DEXTROSE 5 % MINI-B 50 ML IV SCH (16:07)
[2023-06-03] MEDS: traZODone HCL 100 MG TAB PO SCH (20:07)
[2023-06-04 07:26] LABS: Hemoglobin 13.5 g/dl (12.0-16.0)
[2023-06-04 08:14] LABS: Calcium 9.3 mg/dl (8.6-10.3); Magnesium 1.6 mg/dl (1.7-2.4); Potassium 3.5 mmol/L (3.5-5.1)
[2023-06-04 08:17] LABS: Prothrombin Time 39.9 Seconds (9.0-12.0)
[2023-06-04 08:20] LABS: Creatinine Clr Calc Pharmacy 94.1 ml/min; Est GFR (African American) 118.5 ml/min; Est GFR (Non-African American) 102.3 ml/min
[2023-06-04] MEDS: METOPROLOL SUCC 50MG EXT REL TAB PO SCH (09:35)
[2023-06-04] MEDS: FOLIC ACID 400 MCG TAB PO SCH (09:35)
[2023-06-04] MEDS: MAGNESIUM OXIDE 400 MG TAB PO SCH (09:35)
[2023-06-04] MEDS: NICOTINE 21 MG/24 HR TDSY TD SCH (09:35)
[2023-06-04] MEDS: ROSUVASTATIN CALCIUM 10 MG TAB PO SCH (09:35)
[2023-06-04] MEDS: THIAMINE HCL 100 MG TAB PO SCH (09:35)
[2023-06-04] MEDS: levETIRAcetam 500 MG TAB PO SCH ×2 (09:35→20:34)
[2023-06-04] MEDS: FUROSEMIDE 20 MG TAB PO SCH ×2 (09:35→16:14)
[2023-06-04] MEDS: AMMONIUM LACTATE 12% LOTION 225 GM BTL EXT SCH (09:36)
[2023-06-04] MEDS: FLUTICASONE FUROATE 100MCG 14 PUFFS/INHALER INH SCH (09:36)
[2023-06-04] MEDS: UMECLIDINIUM/VILANTEROL 62.5/25MCG 7 PUFFS/INHALER INH SCH (09:36)
[2023-06-04] MEDS: POTASSIUM CHLORIDE CRTAB 20 MEQ TABCR PO SCH (09:38)
[2023-06-04] MEDS: ACETAMINOPHEN 325 MG TAB PO PRN ×2 (09:38→16:14)
[2023-06-04] MEDS: cefTRIAXone SODIUM 2,000 MG in DEXTROSE 5 % MINI-B 50 ML IV SCH (14:06)
--- NOTE | 2023-06-04 15:08 | Hospitalist Progress Note ---
Date of Service June 04, 2023 Assessment & Plan (1) Pelvic ring fracture: Plan 68-year-old female with PMH of chronic hyponatremia, hyperlipidemia, COPD, lung nodules, pulmonary hypertension, peripheral artery disease, chronic diastolic CHF [EF 55%, 2022 TTE], hypertension, chronic atrial fibrillation on Coumadin, protein calorie malnutrition, essential tremor, alcoholism, neuropathy, depression, ongoing tobacco abuse, Lt breast cancer status post surgery/chemoradiation, general anxiety disorder, seizure disorder, subdural hematoma April 2023/Coumadin resumed following G neurology recommendation, chronic thrombocytopenia, ambulatory dysfunction, ongoing tobacco/alcohol abuse presented to the ED 05/31 because she fell backwards [landing on her bottom and resulting in head trauma] 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 She is being managed for the following: Recurrent falls Traumatic pelvic fracture Ambulatory dysfunction Pelvic ring fracture likely in the setting of age-related osteoporosis Patient with recurrent falls secondary to deconditioning secondary to chronic malnutrition/ongoing alcohol use/various comorbidities. Patient noted to have pelvic fracture in outpatient x-ray. See above. Admitting CT head with no acute findings. Admitting CT pelvis with left sacral ala fracture, left pubic symphysis and comminuted left anterior pubic rami fractures Patient reports pain under control. Ortho evaluated, protected weightbearing 50% with walker, AP pelvic x-ray for monitoring purposes. Follow-up with Ortho on discharge. PT/OT Monitor H&H. HnH stable. Acute UTI: UA s/o acute UTI, c/w atb 06/01, f/u urine Cx. Chronic hyponatremia: Losartan was discontinued in prior admission in favor of Lasix. Admitting sodium of 127, about patient's baseline. Continue with fluid restriction. Monitor sodium level. Continue with Lasix. na improving. Seizure: Patient was evaluated as an outpatient in 2022 for events suspected to be seizure. Patient was started on Keppra 500 mg twice daily in April 2023 during inpatient admission. Continue. Subdural hematoma: Patient had subdural hematoma along the right convexity in April 2023. Follow-up outpatient CT head showed resolution of subdural hematoma and patient resumed on Coumadin following G neurology recommendation. Fall precaution. Alcoholism: Patient continues to drink alcohol frequently. Patient has been counseled and encouraged alcohol cessation, patient voices understanding. Continue with thiamine and folic acid. Continue CATHY S at Risk protocol Other chronic medical conditions: Continue with/resume home meds as and when able. COPD, stable on home inhalers, continue home inhalers Ongoing tobacco abuse, counseled, nicotine patch as needed Chronic diastolic CHF: Follows with cardiology, stable. History of A-fib: Continue with home metoprolol and Coumadin as able. Supratherapeutic INR today, hold Coumadin. Monitor PT/INR. History of severe peripheral vascular disease: Vascular surgery has recommended intervention but patient seems to have declined as per epic. Continue with Coumadin and statin. Hypertension: Continue with home bp meds. Hyperlipidemia: Continue with home meds statin Depression and anxiety: Continue with home trazodone History of breast cancer: Status post chemo and radiation in surgery. Stable. DVT prophylaxis: Supratherapeutic INR Disposition: PT/OT when able, after ortho eval Full code Patient's Mr. Jai Puente [[phone]]. Admission and Anticipated Discharge Date Admission Date: June 01, 2023 Subjective Patient was seen and examined at bedside. Patient was lying in bed, on room air, resting comfortably, not in any acute distress. Patient reports hip pain under control, denies any headache or fever or dizziness or chest pain or palpitation abdominal pain. Patient reports eating okay and moving bowels okay. Physical Exam Physical Exam: GENERAL: NAD, pleasant, no respiratory distress, on RA SKIN: Normal color, warm HEENT: [place] palpebral conjunctivae, no ptosis, dry buccal mucosa NECK : Supple, no tenderness CHEST : Decreased breath sounds, no tenderness HEART : Irregular, systolic murmur ABDOMEN: Some distention, left pelvic tenderness EXTREMITIES : No LE tenderness, no LE swelling NEUROLOGIC : Coherent, no facial asymmetry, gait and stance not assessed Results & Data Results & Data Vital Signs (Past 12 Hours) Vital Signs Temp Pulse Pulse Resp BP Pulse Ox O2 Del Method 06/04/23 14:42 79 06/04/23 07:29 Room Air 06/04/23 07:20 36.6 C 84 16 143/83 H 93 Room Air 06/04/23 04:26 36.9 C 53 L 20 145/69 H 96 Room Air
[2023-06-04] MEDS: MAGNESIUM SULFATE / D5W 1 GM/100 ML BAG IV SCH ×2 (16:14→18:01)
[2023-06-04] MEDS: oxyCODONE HCL IR 5 MG TAB (IMMEDIATE RELEASE) PO PRN (19:34)
[2023-06-04] MEDS: traZODone HCL 100 MG TAB PO SCH (20:34)
[2023-06-05] MEDS: oxyCODONE HCL IR 5 MG TAB (IMMEDIATE RELEASE) PO PRN ×2 (06:19→18:21)
[2023-06-05 06:47] LABS: Hematocrit (blood only) 39.1 % (37.0-47.0); Hemoglobin 13.4 g/dl (12.0-16.0)
[2023-06-05 07:00] LABS: BUN Creatinine Ratio 30.2 (10-20); Calcium 9.1 mg/dl (8.6-10.3); Creatinine Clr Calc Pharmacy 96.3 ml/min; Est GFR (African American) 119.4 ml/min; Est GFR (Non-African American) 103.1 ml/min; Magnesium 1.7 mg/dl (1.7-2.4); Potassium 3.6 mmol/L (3.5-5.1)
[2023-06-05 07:13] LABS: INR 3.3 (0.9-1.1); Prothrombin Time 33.6 Seconds (9.0-12.0)
[2023-06-05] MEDS: FLUTICASONE FUROATE 100MCG 14 PUFFS/INHALER INH SCH (08:34)
[2023-06-05] MEDS: UMECLIDINIUM/VILANTEROL 62.5/25MCG 7 PUFFS/INHALER INH SCH (08:34)
[2023-06-05] MEDS: FUROSEMIDE 20 MG TAB PO SCH ×2 (08:38→16:23)
[2023-06-05] MEDS: NICOTINE 21 MG/24 HR TDSY TD SCH (08:38)
[2023-06-05] MEDS: FOLIC ACID 400 MCG TAB PO SCH (08:38)
[2023-06-05] MEDS: ROSUVASTATIN CALCIUM 10 MG TAB PO SCH (08:38)
[2023-06-05] MEDS: THIAMINE HCL 100 MG TAB PO SCH (08:38)
[2023-06-05] MEDS: METOPROLOL SUCC 50MG EXT REL TAB PO SCH (08:38)
[2023-06-05] MEDS: MAGNESIUM OXIDE 400 MG TAB PO SCH (08:38)
[2023-06-05] MEDS: levETIRAcetam 500 MG TAB PO SCH ×2 (08:38→20:04)
[2023-06-05] MEDS: ACETAMINOPHEN 325 MG TAB PO PRN (08:43)
[2023-06-05] MEDS: POTASSIUM CHLORIDE CRTAB 20 MEQ TABCR PO SCH (08:43)
[2023-06-05] MEDS: AMMONIUM LACTATE 12% LOTION 225 GM BTL EXT SCH (08:43)
[2023-06-05] MEDS: cefTRIAXone SODIUM 2,000 MG in DEXTROSE 5 % MINI-B 50 ML IV SCH (14:58)
--- NOTE | 2023-06-05 15:09 | Hospitalist Progress Note ---
Date of Service June 05, 2023 Assessment & Plan (1) Pelvic ring fracture: Plan 68-year-old female with PMH of chronic hyponatremia, hyperlipidemia, COPD, lung nodules, pulmonary hypertension, peripheral artery disease, chronic diastolic CHF [EF 55%, 2022 TTE], hypertension, chronic atrial fibrillation on Coumadin, protein calorie malnutrition, essential tremor, alcoholism, neuropathy, depression, ongoing tobacco abuse, Lt breast cancer status post surgery/chemoradiation, general anxiety disorder, seizure disorder, subdural hematoma April 2023/Coumadin resumed following [facility] [place], chronic thrombocytopenia, ambulatory dysfunction, ongoing tobacco/alcohol abuse presented to the ED 05/31 because she fell backwards [landing on her bottom and resulting in head trauma] 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 She is being managed for the following: Recurrent falls Traumatic pelvic fracture Ambulatory dysfunction Pelvic ring fracture likely in the setting of age-related osteoporosis Patient with recurrent falls secondary to deconditioning secondary to chronic malnutrition/ongoing alcohol use/various comorbidities. Patient noted to have pelvic fracture in outpatient x-ray. See above. Admitting CT head with no acute findings. Admitting CT pelvis with left sacral ala fracture, left pubic symphysis and comminuted left anterior pubic rami fractures Patient reports pain under control. Ortho evaluated, protected weightbearing 50% with walker, AP pelvic x-ray for monitoring purposes. Follow-up with Ortho on discharge. PT/OT Monitor H&H. HnH stable. Acute UTI: UA s/o acute UTI, c/w atb 06/01, f/u urine Cx. Chronic hyponatremia: Losartan was discontinued in prior admission in favor of Lasix. Admitting sodium of 127, about patient's baseline. Continue with fluid restriction. Monitor sodium level. Continue with Lasix. na improving. Seizure: Patient was evaluated as an outpatient in 2022 for events suspected to be seizure. Patient was started on Keppra 500 mg twice daily in April 2023 during inpatient admission. Continue. Subdural hematoma: Patient had subdural hematoma along the right convexity in April 2023. Follow-up outpatient CT head showed resolution of subdural hematoma and patient resumed on Coumadin following [facility] [place] recommendation. Pt also confirmed this. Fall precaution. Alcoholism: Patient continues to drink alcohol frequently. Patient has been counseled and encouraged alcohol cessation, patient voices understanding. Continue with thiamine and folic acid. Continue CATHY S at Risk protocol Other chronic medical conditions: Continue with/resume home meds as and when able. COPD, stable on home inhalers, continue home inhalers Ongoing tobacco abuse, counseled, nicotine patch as needed Chronic diastolic CHF: Follows with cardiology, stable. History of A-fib: Continue with home metoprolol and Coumadin as able. Supratherapeutic INR today, hold Coumadin. Monitor PT/INR. History of severe peripheral vascular disease: Vascular surgery has recommended intervention but patient seems to have declined as per epic. Continue with Coumadin and statin. Hypertension: Continue with home bp meds. Hyperlipidemia: Continue with home meds statin Depression and anxiety: Continue with home trazodone History of breast cancer: Status post chemo and radiation in surgery. Stable. DVT prophylaxis: Supratherapeutic INR Disposition: PT/OT when able, after ortho eval Full code Patient's Mr. Jai Puente [[phone]]. Admission and Anticipated Discharge Date Admission Date: June 01, 2023 Subjective Patient was seen and examined at bedside. Patient was lying in bed, on room air, resting comfortably, not in any acute distress. Patient reports hip pain under control, denies any headache or fever or dizziness or chest pain or palpitation abdominal pain. Patient reports eating okay and moving bowels okay. Physical Exam Physical Exam: GENERAL: NAD, pleasant, no respiratory distress, on RA SKIN: Normal color, warm HEENT: [place] palpebral conjunctivae, no ptosis, dry buccal mucosa NECK : Supple, no tenderness CHEST : Decreased breath sounds, no tenderness HEART : Irregular, systolic murmur ABDOMEN: Some distention, left pelvic tenderness EXTREMITIES : No LE tenderness, no LE swelling NEUROLOGIC : Coherent, no facial asymmetry, gait and stance not assessed Results & Data Results & Data Vital Signs (Past 12 Hours) Vital Signs Temp Pulse Resp BP Pulse Ox O2 Del Method 06/05/23 11:00 Room Air 06/05/23 10:31 36.4 C L 82 20 113/74 95 Room Air 06/05/23 07:53 36.4 C L 76 16 105/65 92 Room Air 06/05/23 07:12 Room Air
[2023-06-05] MEDS: traZODone HCL 100 MG TAB PO SCH (20:04)
[2023-06-06] MEDS: oxyCODONE HCL IR 5 MG TAB (IMMEDIATE RELEASE) PO PRN (07:22)
[2023-06-06 07:41] LABS: Hematocrit (blood only) 39.1 % (37.0-47.0); Hemoglobin 12.9 g/dl (12.0-16.0)
[2023-06-06 08:02] LABS: Calcium 9.1 mg/dl (8.6-10.3); Creatinine Clr Calc Pharmacy 94.1 ml/min; Est GFR (African American) 118.5 ml/min; Est GFR (Non-African American) 102.3 ml/min; Magnesium 1.6 mg/dl (1.7-2.4); Potassium 3.9 mmol/L (3.5-5.1)
[2023-06-06] MEDS: ROSUVASTATIN CALCIUM 10 MG TAB PO SCH (08:02)
[2023-06-06] MEDS: METOPROLOL SUCC 50MG EXT REL TAB PO SCH (08:02)
[2023-06-06] MEDS: FUROSEMIDE 20 MG TAB PO SCH ×2 (08:02→16:44)
[2023-06-06] MEDS: THIAMINE HCL 100 MG TAB PO SCH (08:02)
[2023-06-06] MEDS: FOLIC ACID 400 MCG TAB PO SCH (08:03)
[2023-06-06] MEDS: levETIRAcetam 500 MG TAB PO SCH ×2 (08:03→20:05)
[2023-06-06] MEDS: MAGNESIUM OXIDE 400 MG TAB PO SCH (08:03)
[2023-06-06] MEDS: UMECLIDINIUM/VILANTEROL 62.5/25MCG 7 PUFFS/INHALER INH SCH (08:05)
[2023-06-06] MEDS: NICOTINE 21 MG/24 HR TDSY TD SCH (08:06)
[2023-06-06 08:07] LABS: Prothrombin Time 20.5 Seconds (9.0-12.0)
[2023-06-06] MEDS: FLUTICASONE FUROATE 100MCG 14 PUFFS/INHALER INH SCH (08:07)
[2023-06-06] MEDS: POTASSIUM CHLORIDE CRTAB 20 MEQ TABCR PO SCH (08:10)
[2023-06-06] MEDS: AMMONIUM LACTATE 12% LOTION 225 GM BTL EXT SCH (08:11)
[2023-06-06] MEDS: MAGNESIUM SULFATE / D5W 1 GM/100 ML BAG IV SCH ×2 (10:32→13:10)
[2023-06-06] MEDS: cefTRIAXone SODIUM 2,000 MG in DEXTROSE 5 % MINI-B 50 ML IV SCH (15:24)
[2023-06-06] MEDS ORDERED: WARFARIN SOD 5 MG TAB PO SCH (16:00)
--- NOTE | 2023-06-06 16:28 | Hospitalist Progress Note ---
Date of Service June 06, 2023 Assessment & Plan (1) Pelvic ring fracture: Plan 68-year-old female with PMH of chronic hyponatremia, hyperlipidemia, COPD, lung nodules, pulmonary hypertension, peripheral artery disease, chronic diastolic CHF [EF 55%, 2022 TTE], hypertension, chronic atrial fibrillation on Coumadin, protein calorie malnutrition, essential tremor, alcoholism, neuropathy, depression, ongoing tobacco abuse, Lt breast cancer status post surgery/chemoradiation, general anxiety disorder, seizure disorder, subdural hematoma April 2023/Coumadin resumed following [facility] [place] recommendation, chronic thrombocytopenia, ambulatory dysfunction, ongoing tobacco/alcohol abuse presented to the ED 05/31 because she fell backwards [landing on her bottom and resulting in head trauma] 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 She is being managed for the following: Recurrent falls Traumatic pelvic fracture Ambulatory dysfunction Pelvic ring fracture likely in the setting of age-related osteoporosis Patient with recurrent falls secondary to deconditioning secondary to chronic malnutrition/ongoing alcohol use/various comorbidities. Patient noted to have pelvic fracture in outpatient x-ray. See above. Admitting CT head with no acute findings. Admitting CT pelvis with left sacral ala fracture, left pubic symphysis and comminuted left anterior pubic rami fractures Patient reports pain under control. Ortho evaluated, protected weightbearing 50% with walker, AP pelvic x-ray for monitoring purposes. Follow-up with Ortho on discharge. PT/OT Monitor H&H. HnH stable. Acute UTI: UA s/o acute UTI, c/w atb 06/01, f/u urine Cx. Chronic hyponatremia: Losartan was discontinued in prior admission in favor of Lasix. Admitting sodium of 127, about patient's baseline. Continue with fluid restriction. Monitor sodium level. Continue with Lasix. na improving. Seizure: Patient was evaluated as an outpatient in 2022 for events suspected to be seizure. Patient was started on Keppra 500 mg twice daily in April 2023 during inpatient admission. Continue. Subdural hematoma: Patient had subdural hematoma along the right convexity in April 2023. Follow-up outpatient CT head showed resolution of subdural hematoma and patient resumed on Coumadin following [facility] [place] recommendation. Pt also confirmed this. Fall precaution. Alcoholism: Patient continues to drink alcohol frequently. Patient has been counseled and encouraged alcohol cessation, patient voices understanding. Continue with thiamine and folic acid. Continue CATHY S at Risk protocol Other chronic medical conditions: Continue with/resume home meds as and when able. COPD, stable on home inhalers, continue home inhalers Ongoing tobacco abuse, counseled, nicotine patch as needed Chronic diastolic CHF: Follows with cardiology, stable. History of A-fib: Continue with home metoprolol and Coumadin as able. therapeutic INR today, c/w Coumadin. Monitor PT/INR. History of severe peripheral vascular disease: Vascular surgery has recommended intervention but patient seems to have declined as per epic. Continue with Coumadin and statin. Hypertension: Continue with home bp meds. Hyperlipidemia: Continue with home meds statin Depression and anxiety: Continue with home trazodone History of breast cancer: Status post chemo and radiation in surgery. Stable. DVT prophylaxis: coumadin Disposition: PT/OT when able, after ortho eval Full code Patient's Mr. Jai Puente [[phone]]. Admission and Anticipated Discharge Date Admission Date: June 01, 2023 Subjective Patient was seen and examined at bedside. Patient was lying in bed, on room air, resting comfortably, not in any acute distress. Patient reports hip pain under control, denies any headache or fever or dizziness or chest pain or palpitation abdominal pain. Patient reports eating okay and moving bowels okay. Physical Exam Physical Exam: GENERAL: NAD, pleasant, no respiratory distress, on RA SKIN: Normal color, warm HEENT: [place] palpebral conjunctivae, no ptosis, dry buccal mucosa NECK : Supple, no tenderness CHEST : Decreased breath sounds, no tenderness HEART : Irregular, systolic murmur ABDOMEN: Some distention, left pelvic tenderness EXTREMITIES : No LE tenderness, no LE swelling NEUROLOGIC : Coherent, no facial asymmetry, gait and stance not assessed Results & Data Results & Data Vital Signs (Past 12 Hours) Vital Signs Temp Pulse Resp BP Pulse Ox O2 Del Method 06/06/23 16:17 36.4 C L 70 16 117/64 94 Room Air 06/06/23 07:20 Room Air 06/06/23 06:17 36.5 C 76 14 122/80 94 Room Air
[2023-06-06] MEDS: traZODone HCL 100 MG TAB PO SCH (20:05)
[2023-06-07] MEDS: FUROSEMIDE 20 MG TAB PO SCH ×2 (08:27→16:33)
[2023-06-07] MEDS: ROSUVASTATIN CALCIUM 10 MG TAB PO SCH (08:27)
[2023-06-07] MEDS: levETIRAcetam 500 MG TAB PO SCH ×2 (08:27→20:23)
[2023-06-07] MEDS: MAGNESIUM OXIDE 400 MG TAB PO SCH (08:27)
[2023-06-07] MEDS: FOLIC ACID 400 MCG TAB PO SCH (08:28)
[2023-06-07] MEDS: THIAMINE HCL 100 MG TAB PO SCH (08:28)
[2023-06-07] MEDS: METOPROLOL SUCC 50MG EXT REL TAB PO SCH (08:28)
[2023-06-07] MEDS: NICOTINE 21 MG/24 HR TDSY TD SCH (08:28)
[2023-06-07] MEDS: AMMONIUM LACTATE 12% LOTION 225 GM BTL EXT SCH (08:29)
[2023-06-07] MEDS: UMECLIDINIUM/VILANTEROL 62.5/25MCG 7 PUFFS/INHALER INH SCH (08:29)
[2023-06-07] MEDS: FLUTICASONE FUROATE 100MCG 14 PUFFS/INHALER INH SCH (08:30)
[2023-06-07] MEDS: POTASSIUM CHLORIDE CRTAB 20 MEQ TABCR PO SCH (08:32)
[2023-06-07 08:41] LABS: Hematocrit (blood only) 39.7 % (37.0-47.0); Hemoglobin 13.2 g/dl (12.0-16.0)
[2023-06-07 08:58] LABS: BUN Creatinine Ratio 27.5 (10-20); Calcium 9.3 mg/dl (8.6-10.3); Creatinine Clr Calc Pharmacy 103.5 ml/min; Est GFR (African American) 122.3 ml/min; Est GFR (Non-African American) 105.5 ml/min; Magnesium 1.7 mg/dl (1.7-2.4); Potassium 3.7 mmol/L (3.5-5.1)
[2023-06-07 09:06] LABS: INR 1.4 (0.9-1.1); Prothrombin Time 15.1 Seconds (9.0-12.0)
[2023-06-07] MEDS: cefTRIAXone SODIUM 2,000 MG in DEXTROSE 5 % MINI-B 50 ML IV SCH (14:43)
--- NOTE | 2023-06-07 15:29 | Hospitalist Progress Note ---
Date of Service June 07, 2023 Assessment & Plan (1) Pelvic ring fracture: Plan 68-year-old female with PMH of chronic hyponatremia, hyperlipidemia, COPD, lung nodules, pulmonary hypertension, peripheral artery disease, chronic diastolic CHF [EF 55%, 2022 TTE], hypertension, chronic atrial fibrillation on Coumadin, protein calorie malnutrition, essential tremor, alcoholism, neuropathy, depression, ongoing tobacco abuse, Lt breast cancer status post surgery/chemoradiation, general anxiety disorder, seizure disorder, subdural hematoma April 2023/Coumadin resumed following [facility] neurology recommendation, chronic thrombocytopenia, ambulatory dysfunction, ongoing tobacco/alcohol abuse presented to the ED 05/31 because she fell backwards [landing on her bottom and resulting in head trauma] 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 She is being managed for the following: Recurrent falls Traumatic pelvic fracture Ambulatory dysfunction Pelvic ring fracture likely in the setting of age-related osteoporosis Patient with recurrent falls secondary to deconditioning secondary to chronic malnutrition/ongoing alcohol use/various comorbidities. Admitting CT pelvis with left sacral ala fracture, left pubic symphysis and comminuted left anterior pubic rami fractures Admitting CT head with no acute findings. Patient reports pain under control. Ortho evaluated, protected weightbearing 50% with walker, AP pelvic x-ray for monitoring purposes. Follow-up with Ortho on discharge. PT/OT-recommended rehab Patient remains free from any symptoms as of today 06/07/2023 Ready to be discharged Acute UTI: UA s/o acute UTI, c/w atb 06/01, Urine culture is growing E. coli which is pansensitive We will continue ceftriaxone for now Chronic hyponatremia: Losartan was discontinued in prior admission in favor of Lasix. Admitting sodium of 127, about patient's baseline. Continue with fluid restriction. Monitor sodium level. Continue with Lasix. na improving. Sodium level has been better at 133 as of 06/07/2023 Seizure: Patient was evaluated as an outpatient in 2022 for events suspected to be seizure. Patient was started on Keppra 500 mg twice daily in April 2023 during inpatient admission. Continue. Subdural hematoma: Patient had subdural hematoma along the right convexity in April 2023. Follow-up outpatient CT head showed resolution of subdural hematoma and patient resumed on Coumadin following [facility] neurology recommendation. Pt also confirmed this. Fall precaution. Alcoholism: Patient continues to drink alcohol frequently. Patient has been counseled and encouraged alcohol cessation, patient voices understanding. Continue with thiamine and folic acid. Continue CATHY S at Risk protocol Other chronic medical conditions: Continue with/resume home meds as and when able. COPD, stable on home inhalers, continue home inhalers Ongoing tobacco abuse, counseled, nicotine patch as needed Chronic diastolic CHF: Follows with cardiology, stable. History of A-fib: Continue with home metoprolol and Coumadin as able. therapeutic INR today, c/w Coumadin. Monitor PT/INR. History of severe peripheral vascular disease: Vascular surgery has recommended intervention but patient seems to have declined as per epic. Continue with Coumadin and statin. Hypertension: Continue with home bp meds. Hyperlipidemia: Continue with home meds statin Depression and anxiety: Continue with home trazodone History of breast cancer: Status post chemo and radiation in surgery. Stable. DVT prophylaxis: coumadin INR has been low at 1.4 With increased Coumadin Disposition: PT/OT when able, after ortho eval Full code Patient's Mr. Jai Puente [[phone]]. Admission and Anticipated Discharge Date Admission Date: June 01, 2023 Subjective 06/07/2023 The patient was seen and examined in medical floor She has been stable and awaiting placement Denies any significant symptoms Review of Systems Review of Systems: All systems reviewed and are unremarkable except as noted below Physical Exam Physical Exam: Lying in bed without any acute distress Constitutional: well developed, well nourished and average body habitus; not ill appearing Eyes: PERRL, conjunctivae normal, anicteric sclerae ENMT: external ear and nose normal, oropharynx normal Neck: trachea midline, no thyromegaly Respiratory: no respiratory distress Auscultation: lungs clear to auscultation bilaterally Cardiovascular: Rate/Rhythm: regular rate and regular rhythm; not tachycardic Heart Sounds: normal S1 and normal S2; no murmur Extremities: no edema Gastrointestinal (Abdomen): Inspection/Auscultation: normal bowel sounds; abdomen not distended Percussion/Palpation: abdomen soft; abdomen nontender Musculoskeletal: No acute arthritis involving any joint Neurologic: normal touch/pain/proprioception and moves all extremities; no focal motor deficits Lymphatic: no cervical or axillary lymphadenopathy Results & Data Results & Data Vital Signs (Past 12 Hours) Vital Signs Temp Pulse Resp BP Pulse Ox O2 Del Method 06/07/23 08:07 Room Air 06/07/23 07:51 36.5 C 81 16 146/85 H 95 Room Air Laboratory Results Short CBC 06/07/23 Range/Units 07:46 Hgb 13.2 (12.0-16.0) g/dl Hct 39.7 (37.0-47.0) % BMP 06/07/23 07:46 Sodium 133 L Potassium 3.7 Chloride 100 Carbon Dioxide 27 BUN 11 Creatinine 0.40 L Glucose 102 H Calcium 9.3 Medications Administered Current Inpatient Medications Acetaminophen (Acetaminophen 325 Mg Tab) 650 mg PO QID PRN PRN Reason: pain/fever Stop: 07/01/23 10:13 Last Admin: 06/05/23 08:43 Dose: 650 mg Albuterol (Albuterol 0.083% Nebu Soln 3 Ml Vial) 2.5 mg INH UD PRN; Protocol PRN Reason: NEEDED Stop: 07/01/23 14:25 Fluticasone Furoate (Fluticasone Furoate 100mcg 14 Puffs/Inhaler) 1 puffs INH DAILY [facility] Stop: 07/01/23 08:59 Last Admin: 06/07/23 08:30 Dose: 1 puffs Folic Acid (Folic Acid 400 Mcg Tab) 400 mcg PO DAILY [facility] Stop: 07/01/23 08:59 Last Admin: 06/07/23 08:28 Dose: 400 mcg Furosemide (Furosemide 20 Mg Tab) 20 mg PO BID17 [facility] Stop: 07/01/23 16:59 Last Admin: 06/07/23 08:27 Dose: 20 mg Lorazepam 1 mg/ Syringe 1 mls @ 2 mls/min IV ONE PRN; Protocol PRN Reason: EtoH Withdrawal AWSS 6-10 Ceftriaxone Sodium 2,000 mg/ (Dextrose) 50 mls @ 100 mls/hr IV Q24H [facility]; Protocol Stop: 06/11/23 14:59 Last Admin: 06/07/23 14:43 Dose: 100 mls/hr Lactic Acid (Ammonium Lactate 12% Lotion 225 Gm Btl) 1 gm EXT DAILY [facility] Stop: 07/01/23 08:59 Last Admin: 06/07/23 08:29 Dose: 1 gm Levetiracetam (Levetiracetam 500 Mg Tab) 500 mg PO BID [facility] Stop: 07/01/23 08:59 Last Admin: 06/07/23 08:27 Dose: 500 mg Magnesium Oxide (Magnesium Oxide 400 Mg Tab) 400 mg PO DAILY [facility] Stop: 07/01/23 08:59 Last Admin: 06/07/23 08:27 Dose: 400 mg Melatonin (Melatonin 3 Mg Tab) 3 mg PO HS PRN PRN Reason: Sleep Stop: 07/02/23 01:18 Last Admin: 06/02/23 02:33 Dose: 3 mg Metoprolol Succinate (Metoprolol Succ 50mg Ext Rel Tab) 50 mg PO QAM [facility] Stop: 07/01/23 08:59 Last Admin: 06/07/23 08:28 Dose: 50 mg Miscellaneous (Remove Nicoderm Patch) 1 each N/A DAILY@0859 [facility] Stop: 07/02/23 08:58 Last Admin: 06/07/23 08:29 Dose: 1 each Nicotine (Nicotine 21 Mg/24 Hr Tdsy) 21 mg TD QAM [facility] Stop: 07/01/23 14:29 Last Admin: 06/07/23 08:28 Dose: 21 mg Oxycodone HCl (Oxycodone Hcl Ir 5 Mg Tab (Immediate Release)) 5 mg PO Q4H PRN PRN Reason: Pain Stop: 06/15/23 03:17 Last Admin: 06/06/23 07:22 Dose: 5 mg Potassium Chloride (Potassium Chloride Crtab 20 Meq Tabcr) 20 meq PO QAM [facility] Stop: 07/02/23 08:59 Last Admin: 06/07/23 08:32 Dose: 20 meq Rosuvastatin Calcium (Rosuvastatin Calcium 10 Mg Tab) 10 mg PO QAM [facility] Stop: 07/01/23 08:59 Last Admin: 06/07/23 08:27 Dose: 10 mg Thiamine HCl (Thiamine Hcl 100 Mg Tab) 100 mg PO QAM [facility] Stop: 07/01/23 08:59 Last Admin: 06/07/23 08:28 Dose: 100 mg Trazodone HCl (Trazodone Hcl 100 Mg Tab) 100 mg PO HS [facility] Stop: 07/01/23 20:59 Last Admin: 06/06/23 20:05 Dose: 100 mg Umeclidinium/Vilanterol (Umeclidinium/Vilanterol 62.5/25mcg 7 Puffs/Inhaler) 1 puffs INH DAILY [facility] Stop: 07/01/23 08:59 Last Admin: 06/07/23 08:29 Dose: 1 puffs Warfarin Sodium (Warfarin Sod 10 Mg Tab) 10 mg PO SuMoWeThFrSa@1600 [facility] Stop: 07/02/23 16:14 Last Admin: 06/03/23 16:06 Dose: 10 mg Warfarin Sodium (Warfarin Sod 5 Mg Tab) 5 mg PO Tu@1600 [facility] Stop: 07/06/23 15:59 Last Admin: 06/06/23 15:29 Dose: 5 mg
[2023-06-07] MEDS: WARFARIN SOD 10 MG TAB PO SCH (17:00)
[2023-06-07] MEDS: traZODone HCL 100 MG TAB PO SCH (20:22)
[2023-06-08] MEDS: ACETAMINOPHEN 325 MG TAB PO PRN ×2 (07:04→15:08)
[2023-06-08] MEDS: UMECLIDINIUM/VILANTEROL 62.5/25MCG 7 PUFFS/INHALER INH SCH (08:08)
[2023-06-08] MEDS: FLUTICASONE FUROATE 100MCG 14 PUFFS/INHALER INH SCH (08:09)
[2023-06-08] MEDS: AMMONIUM LACTATE 12% LOTION 225 GM BTL EXT SCH (08:09)
[2023-06-08] MEDS: FOLIC ACID 400 MCG TAB PO SCH (08:10)
[2023-06-08] MEDS: METOPROLOL SUCC 50MG EXT REL TAB PO SCH (08:10)
[2023-06-08] MEDS: levETIRAcetam 500 MG TAB PO SCH ×2 (08:11→19:50)
[2023-06-08] MEDS: FUROSEMIDE 20 MG TAB PO SCH ×2 (08:11→17:43)
[2023-06-08] MEDS: MAGNESIUM OXIDE 400 MG TAB PO SCH (08:11)
[2023-06-08] MEDS: NICOTINE 21 MG/24 HR TDSY TD SCH (08:11)
[2023-06-08] MEDS: THIAMINE HCL 100 MG TAB PO SCH (08:11)
[2023-06-08] MEDS: ROSUVASTATIN CALCIUM 10 MG TAB PO SCH (08:12)
[2023-06-08 08:15] LABS: Basophils # (auto) 0.06 K/uL (0.00-0.20); Basophils % (auto) 0.9 %; Eosinophils # (auto) 0.09 K/uL (0.00-0.50); Eosinophils % (auto) 1.3 %; Hematocrit (blood only) 41.4 % (37.0-47.0); Hemoglobin 13.6 g/dl (12.0-16.0); Immature Granulocytes # (auto) 0.02 K/uL (0.01-0.20); Immature Granulocytes % (auto) 0.3 %; Lymphocytes # (auto) 1.93 K/uL (1.20-3.40); Lymphocytes % (auto) 27.5 %; Mean Corpuscular Hemoglobin 31.3 pg (25.0-34.0); Mean Corpuscular Hgb Conc 32.9 g/dL (32.0-36.0); Mean Corpuscular Volume 95.2 fL (80.0-100.0); Mean Platelet Volume 9.4 fL (9.4-12.4); Monocytes # (auto) 0.67 K/uL (0.11-0.59); Monocytes % (auto) 9.5 %; Neutrophils # (auto) 4.26 K/uL (1.40-6.50); Neutrophils % (auto) 60.5 %; Platelet Count 282 K/uL (130-400); RDW Coefficient of Variation 13.9 % (11.5-14.5); RDW Standard Deviation 49.1 fL (36.4-46.3); Red Blood Count 4.35 M/uL (4.20-5.40); White Blood Count 7.03 K/ul (4.8-10.8)
[2023-06-08] MEDS: POTASSIUM CHLORIDE CRTAB 20 MEQ TABCR PO SCH (08:15)
[2023-06-08 08:42] LABS: BUN Creatinine Ratio 30.2 (10-20); Calcium 9.5 mg/dl (8.6-10.3); Creatinine Clr Calc Pharmacy 96.3 ml/min; Est GFR (African American) 119.4 ml/min; Est GFR (Non-African American) 103.1 ml/min; Potassium 3.8 mmol/L (3.5-5.1)
[2023-06-08 08:45] LABS: INR 1.4 (0.9-1.1); Prothrombin Time 15.2 Seconds (9.0-12.0)
[2023-06-08] MEDS: cefTRIAXone SODIUM 2,000 MG in DEXTROSE 5 % MINI-B 50 ML IV SCH (15:10)
[2023-06-08] MEDS: oxyCODONE HCL IR 5 MG TAB (IMMEDIATE RELEASE) PO PRN (15:20)
--- NOTE | 2023-06-08 15:24 | Hospitalist Progress Note ---
Date of Service June 08, 2023 Assessment & Plan (1) Pelvic ring fracture: Plan 68-year-old female with PMH of chronic hyponatremia, hyperlipidemia, COPD, lung nodules, pulmonary hypertension, peripheral artery disease, chronic diastolic CHF [EF 55%, 2022 TTE], hypertension, chronic atrial fibrillation on Coumadin, protein calorie malnutrition, essential tremor, alcoholism, neuropathy, depression, ongoing tobacco abuse, Lt breast cancer status post surgery/chemoradiation, general anxiety disorder, seizure disorder, subdural hematoma April 2023/Coumadin resumed following [facility] neurology recommendation, chronic thrombocytopenia, ambulatory dysfunction, ongoing tobacco/alcohol abuse presented to the ED 05/31 because she fell backwards [landing on her bottom and resulting in head trauma] 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 She is being managed for the following: Recurrent falls Traumatic pelvic fracture Ambulatory dysfunction Pelvic ring fracture likely in the setting of age-related osteoporosis Patient with recurrent falls secondary to deconditioning secondary to chronic malnutrition/ongoing alcohol use/various comorbidities. Admitting CT pelvis with left sacral ala fracture, left pubic symphysis and comminuted left anterior pubic rami fractures Admitting CT head with no acute findings. Patient reports pain under control. Ortho evaluated, protected weightbearing 50% with walker, AP pelvic x-ray for monitoring purposes. Follow-up with Ortho on discharge. PT/OT-recommended rehab Patient remains free from any symptoms as of today 06/07/2023 She has been stable and awaiting placement Diffuse from going to [facility] Will be discharged to SNF tomorrow afternoon Acute UTI: UA s/o acute UTI, c/w atb 06/01, Urine culture is growing E. coli which is pansensitive We will continue ceftriaxone for now We will change antibiotic to oral tomorrow on discharge Chronic hyponatremia: Losartan was discontinued in prior admission in favor of Lasix. Admitting sodium of 127, about patient's baseline. Continue with fluid restriction. Monitor sodium level. Continue with Lasix. na improving. Sodium level has been better at 133 as of 06/07/2023 Sodium level has been around normal Seizure: Patient was evaluated as an outpatient in 2022 for events suspected to be seizure. Patient was started on Keppra 500 mg twice daily in April 2023 during inpatient admission. Continue. Subdural hematoma: Patient had subdural hematoma along the right convexity in April 2023. Follow-up outpatient CT head showed resolution of subdural hematoma and patient resumed on Coumadin following [facility] [place] recommendation. Pt also confirmed this. Fall precaution. Alcoholism: Patient continues to drink alcohol frequently. Patient has been counseled and encouraged alcohol cessation, patient voices understanding. Continue with thiamine and folic acid. Continue CATHY S at Risk protocol Strongly advised to quit alcohol Other chronic medical conditions: Continue with/resume home meds as and when able. COPD, stable on home inhalers, continue home inhalers Ongoing tobacco abuse, counseled, nicotine patch as needed Chronic diastolic CHF: Follows with cardiology, stable. History of A-fib: Continue with home metoprolol and Coumadin as able. therapeutic INR today, c/w Coumadin. Monitor PT/INR. History of severe peripheral vascular disease: Vascular surgery has recommended intervention but patient seems to have declined as per [facility]. Continue with Coumadin and statin. Hypertension: Continue with home bp meds. Hyperlipidemia: Continue with home meds statin Depression and anxiety: Continue with home trazodone History of breast cancer: Status post chemo and radiation in surgery. Stable. DVT prophylaxis: coumadin INR has been low at 1.4 With increased Coumadin Disposition: PT/OT when able, after ortho eval Full code Patient's Mr. Jai Puente [[phone]]. Admission and Anticipated Discharge Date Admission Date: June 01, 2023 Subjective 06/07/2023 The patient was seen and examined in medical floor She has been stable and awaiting placement Denies any significant symptoms 06/08/2023 The patient was seen and examined in medical floor She has been stable and out of bed on a chair She will be discharged tomorrow for SNF Review of Systems Review of Systems: All systems reviewed and are unremarkable except as noted below Physical Exam Physical Exam: Lying in bed without any acute distress Constitutional: well developed, well nourished and average body habitus; not ill appearing Eyes: PERRL, conjunctivae normal, anicteric sclerae ENMT: external ear and nose normal, oropharynx normal Neck: trachea midline, no thyromegaly Respiratory: no respiratory distress Auscultation: lungs clear to auscultation bilaterally Cardiovascular: Rate/Rhythm: regular rate and regular rhythm; not tachycardic Heart Sounds: normal S1 and normal S2; no murmur Extremities: no edema Gastrointestinal (Abdomen): Inspection/Auscultation: normal bowel sounds; abdomen not distended Percussion/Palpation: abdomen soft; abdomen nontender Neurologic: normal touch/pain/proprioception and moves all extremities; no focal motor deficits Lymphatic: no cervical or axillary lymphadenopathy Results & Data Results & Data Vital Signs (Past 12 Hours) Vital Signs Temp Pulse Resp BP Pulse Ox O2 Del Method 06/08/23 07:21 36.4 C L 72 16 123/79 94 Room Air Laboratory Results Short CBC 06/08/23 Range/Units 07:32 WBC 7.03 (4.8-10.8) K/ul Hgb 13.6 (12.0-16.0) g/dl Hct 41.4 (37.0-47.0) % Plt Count 282 (130-400) K/uL BMP 06/08/23 07:32 Sodium 134 L Potassium 3.8 Chloride 101 Carbon Dioxide 27 BUN 13 Creatinine 0.43 L Glucose 98 Calcium 9.5 Medications Administered Current Inpatient Medications Acetaminophen (Acetaminophen 325 Mg Tab) 650 mg PO QID PRN PRN Reason: pain/fever Stop: 07/01/23 10:13 Last Admin: 06/08/23 15:08 Dose: 650 mg Albuterol (Albuterol 0.083% Nebu Soln 3 Ml Vial) 2.5 mg INH UD PRN; Protocol PRN Reason: NEEDED Stop: 07/01/23 14:25 Fluticasone Furoate (Fluticasone Furoate 100mcg 14 Puffs/Inhaler) 1 puffs INH DAILY [facility] Stop: 07/01/23 08:59 Last Admin: 06/08/23 08:09 Dose: 1 puffs Folic Acid (Folic Acid 400 Mcg Tab) 400 mcg PO DAILY [facility] Stop: 07/01/23 08:59 Last Admin: 06/08/23 08:10 Dose: 400 mcg Furosemide (Furosemide 20 Mg Tab) 20 mg PO BID17 [facility] Stop: 07/01/23 16:59 Last Admin: 06/08/23 08:11 Dose: 20 mg Lorazepam 1 mg/ Syringe 1 mls @ 2 mls/min IV ONE PRN; Protocol PRN Reason: EtoH Withdrawal AWSS 6-10 Ceftriaxone Sodium 2,000 mg/ (Dextrose) 50 mls @ 100 mls/hr IV Q24H [facility]; Protocol Stop: 06/11/23 14:59 Last Admin: 06/08/23 15:10 Dose: 100 mls/hr Lactic Acid (Ammonium Lactate 12% Lotion 225 Gm Btl) 1 gm EXT DAILY [facility] Stop: 07/01/23 08:59 Last Admin: 06/08/23 08:09 Dose: 1 gm Levetiracetam (Levetiracetam 500 Mg Tab) 500 mg PO BID [facility] Stop: 07/01/23 08:59 Last Admin: 06/08/23 08:11 Dose: 500 mg Magnesium Oxide (Magnesium Oxide 400 Mg Tab) 400 mg PO DAILY [facility] Stop: 07/01/23 08:59 Last Admin: 06/08/23 08:11 Dose: 400 mg Melatonin (Melatonin 3 Mg Tab) 3 mg PO HS PRN PRN Reason: Sleep Stop: 07/02/23 01:18 Last Admin: 06/02/23 02:33 Dose: 3 mg Metoprolol Succinate (Metoprolol Succ 50mg Ext Rel Tab) [facility] [place]: 07/01/23 08:59 Last Admin: 06/08/23 08:10 Dose: 50 mg Miscellaneous (Remove Nicoderm Patch) 1 each N/A DAILY@0859 [facility] Stop: 07/02/23 08:58 Last Admin: 06/08/23 08:03 Dose: 1 each Nicotine (Nicotine 21 Mg/24 Hr Tdsy) 21 mg TD [facility] Stop: 07/01/23 14:29 Last Admin: 06/08/23 08:11 Dose: 21 mg Oxycodone HCl (Oxycodone Hcl Ir 5 Mg Tab (Immediate Release)) 5 mg PO Q4H PRN PRN Reason: Pain Stop: 06/15/23 03:17 Last Admin: 06/08/23 15:20 Dose: 5 mg Potassium Chloride (Potassium Chloride Crtab 20 Meq Tabcr) 20 meq [facility] [place]: 07/02/23 08:59 Last Admin: 06/08/23 08:15 Dose: 20 meq Rosuvastatin Calcium (Rosuvastatin Calcium 10 Mg Tab) 10 mg PO QAM [facility] Stop: 07/01/23 08:59 Last Admin: 06/08/23 08:12 Dose: 10 mg Thiamine HCl (Thiamine Hcl 100 Mg Tab) 100 [facility] [place]: 07/01/23 08:59 Last Admin: 06/08/23 08:11 Dose: 100 mg Trazodone HCl (Trazodone Hcl 100 Mg Tab) 100 mg PO HS [facility] Stop: 07/01/23 20:59 Last Admin: 06/07/23 20:22 Dose: 100 mg Umeclidinium/Vilanterol (Umeclidinium/Vilanterol 62.5/25mcg 7 Puffs/Inhaler) 1 puffs INH DAILY [facility] Stop: 07/01/23 08:59 Last Admin: 06/08/23 08:08 Dose: 1 puffs Warfarin Sodium (Warfarin Sod 10 Mg Tab) 10 mg PO SuMoWeThFrSa@1600 [facility] Stop: 07/02/23 16:14 Last Admin: 06/07/23 17:00 Dose: 10 mg Warfarin Sodium (Warfarin Sod 5 Mg Tab) 5 mg PO Tu@1600 [facility] Stop: 07/06/23 15:59 Last Admin: 06/06/23 15:29 Dose: 5 mg
[2023-06-08] MEDS: WARFARIN SOD 10 MG TAB PO SCH (15:47)
[2023-06-08] MEDS: traZODone HCL 100 MG TAB PO SCH (19:51)
[2023-06-09] MEDS: AMMONIUM LACTATE 12% LOTION 225 GM BTL EXT SCH (08:26)
[2023-06-09] MEDS: FLUTICASONE FUROATE 100MCG 14 PUFFS/INHALER INH SCH (08:27)
[2023-06-09] MEDS: FOLIC ACID 400 MCG TAB PO SCH (08:27)
[2023-06-09] MEDS: levETIRAcetam 500 MG TAB PO SCH (08:28)
[2023-06-09] MEDS: FUROSEMIDE 20 MG TAB PO SCH (08:28)
[2023-06-09] MEDS: MAGNESIUM OXIDE 400 MG TAB PO SCH (08:28)
[2023-06-09] MEDS: METOPROLOL SUCC 50MG EXT REL TAB PO SCH (08:29)
[2023-06-09] MEDS: NICOTINE 21 MG/24 HR TDSY TD SCH (08:29)
[2023-06-09] MEDS: ROSUVASTATIN CALCIUM 10 MG TAB PO SCH (08:29)
[2023-06-09] MEDS: THIAMINE HCL 100 MG TAB PO SCH (08:30)
[2023-06-09] MEDS: POTASSIUM CHLORIDE CRTAB 20 MEQ TABCR PO SCH (08:31)
--- NOTE | 2023-06-09 09:28 | Hospitalist Progress Note ---
Date of Service June 09, 2023 Assessment & Plan (1) Pelvic ring fracture: Plan 68-year-old female with PMH of chronic hyponatremia, hyperlipidemia, COPD, lung nodules, pulmonary hypertension, peripheral artery disease, chronic diastolic CHF [EF 55%, 2022 TTE], hypertension, chronic atrial fibrillation on Coumadin, protein calorie malnutrition, essential tremor, alcoholism, neuropathy, depression, ongoing tobacco abuse, Lt breast cancer status post surgery/chemoradiation, general anxiety disorder, seizure disorder, subdural hematoma April 2023/Coumadin resumed following [facility] neurology recommendation, chronic thrombocytopenia, ambulatory dysfunction, ongoing tobacco/alcohol abuse presented to the ED 05/31 because she fell backwards [landing on her bottom and resulting in head trauma] 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 She is being managed for the following: Recurrent falls Traumatic pelvic fracture Ambulatory dysfunction Pelvic ring fracture likely in the setting of age-related osteoporosis Patient with recurrent falls secondary to deconditioning secondary to chronic malnutrition/ongoing alcohol use/various comorbidities. Admitting CT pelvis with left sacral ala fracture, left pubic symphysis and comminuted left anterior pubic rami fractures Admitting CT head with no acute findings. Patient reports pain under control. Ortho evaluated, protected weightbearing 50% with walker, AP pelvic x-ray for monitoring purposes. Follow-up with Ortho on discharge. PT/OT-recommended rehab Patient remains free from any symptoms as of today 06/07/2023 She has been stable and awaiting placement Diffuse from going to [facility] Will be discharged to SNF tomorrow afternoon Remains stable without any significant symptoms Has been getting physical therapy and doing better Will be discharged to SNF this afternoon Acute UTI: UA s/o acute UTI, c/w atb 06/01, Urine culture is growing E. coli which is pansensitive We will continue ceftriaxone for now We will change antibiotic to oral tomorrow on discharge Antibiotic course is finished Chronic hyponatremia: Losartan was discontinued in prior admission in favor of Lasix. Admitting sodium of 127, about patient's baseline. Continue with fluid restriction. Monitor sodium level. Continue with Lasix. na improving. Sodium level has been better at 133 as of 06/07/2023 Sodium level has been around normal-134 as of 06/08/2023 Seizure: Patient was evaluated as an outpatient in 2022 for events suspected to be seizure. Patient was started on Keppra 500 mg twice daily in April 2023 during inpatient admission. Continue.-No more episode of seizures Subdural hematoma: Patient had subdural hematoma along the right convexity in April 2023. Follow-up outpatient CT head showed resolution of subdural hematoma and patient resumed on Coumadin following [facility] neurology recommendation. Pt also confirmed this. Fall precaution. Alcoholism: Patient continues to drink alcohol frequently. Patient has been counseled and encouraged alcohol cessation, patient voices understanding. Continue with thiamine and folic acid. Continue CATHY S at Risk protocol Strongly advised to quit alcohol Other chronic medical conditions: Continue with/resume home meds as and when able. COPD, stable on home inhalers, continue home inhalers Ongoing tobacco abuse, counseled, nicotine patch as needed Chronic diastolic CHF: Follows with cardiology, stable. History of A-fib: Continue with home metoprolol and Coumadin as able. therapeutic INR today, c/w Coumadin. Monitor PT/INR. History of severe peripheral vascular disease: Vascular surgery has recommended intervention but patient seems to have declined as per epic. Continue with Coumadin and statin. Hypertension: Continue with home bp meds. Hyperlipidemia: Continue with home meds statin Depression and anxiety: Continue with home trazodone History of breast cancer: Status post chemo and radiation in surgery. Stable. DVT prophylaxis: coumadin INR has been low at 1.4 With increased Coumadin Disposition: PT/OT when able, after ortho eval Full code Patient's Mr. Jai Puente [[phone]]. Will be discharged to SNF this afternoon Admission and Anticipated Discharge Date Admission Date: June 01, 2023 Subjective 06/07/2023 The patient was seen and examined in medical floor She has been stable and awaiting placement Denies any significant symptoms 06/08/2023 The patient was seen and examined in medical floor She has been stable and out of bed on a chair She will be discharged tomorrow for SNF 06/09/2019 The patient was seen and examined in medical She has been stable without any significant symptom Will be discharged to SNF this afternoon She also complains to have a lump in the left breast with history of breast cancer but that is not causing any pain or symptoms at this time She will make an appointment with 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 following discharge Review of Systems Review of Systems: All systems reviewed and are unremarkable except as noted below Physical Exam Physical Exam: Lying in bed without any acute distress Constitutional: well developed, well nourished and average body habitus; not ill appearing Eyes: PERRL, conjunctivae normal, anicteric sclerae ENMT: external ear and nose normal, oropharynx normal Neck: trachea midline, no thyromegaly Respiratory: no respiratory distress Auscultation: lungs clear to auscultation bilaterally Cardiovascular: Rate/Rhythm: regular rate and regular rhythm; not tachycardic Heart Sounds: normal S1 and normal S2; no murmur Extremities: no edema Gastrointestinal (Abdomen): Inspection/Auscultation: normal bowel sounds; abdomen not distended Percussion/Palpation: abdomen soft; abdomen nontender Neurologic: normal touch/pain/proprioception and moves all extremities; no focal motor deficits Lymphatic: no cervical or axillary lymphadenopathy Results & Data Results & Data Vital Signs (Past 12 Hours) Vital Signs Temp Pulse Resp BP Pulse Ox O2 Del Method 06/08/23 07:21 36.4 C L 72 16 123/79 94 Room Air Medications Administered Current Inpatient Medications Acetaminophen (Acetaminophen 325 Mg Tab) 650 mg PO QID PRN PRN Reason: pain/fever Stop: 07/01/23 10:13 Last Admin: 06/08/23 15:08 Dose: 650 mg Albuterol (Albuterol 0.083% Nebu Soln 3 Ml Vial) 2.5 mg INH UD PRN; Protocol PRN Reason: NEEDED Stop: 07/01/23 14:25 Fluticasone Furoate (Fluticasone Furoate 100mcg 14 Puffs/Inhaler) 1 puffs INH DAILY SARA Stop: 07/01/23 08:59 Last Admin: 06/09/23 08:27 Dose: 1 puffs Folic Acid (Folic Acid 400 Mcg Tab) 400 mcg PO DAILY SARA Stop: 07/01/23 08:59 Last Admin: 06/09/23 08:27 Dose: 400 mcg Furosemide (Furosemide 20 Mg Tab) 20 mg PO BID17 SARA Stop: 07/01/23 16:59 Last Admin: 06/09/23 08:28 Dose: 20 mg Lorazepam 1 mg/ Syringe 1 mls @ 2 mls/min IV ONE PRN; Protocol PRN Reason: EtoH Withdrawal AWSS 6-10 Ceftriaxone Sodium 2,000 mg/ (Dextrose) 50 mls @ 100 mls/hr IV Q24H [facility]; Protocol Stop: 06/11/23 14:59 Last Infusion: 06/08/23 15:49 Dose: Infused Lactic Acid (Ammonium Lactate 12% Lotion 225 Gm Btl) 1 gm EXT DAILY [facility] Stop: 07/01/23 08:59 Last Admin: 06/09/23 08:26 Dose: 1 gm Levetiracetam (Levetiracetam 500 Mg Tab) 500 mg PO BID [facility] Stop: 07/01/23 08:59 Last Admin: 06/09/23 08:28 Dose: 500 mg Magnesium Oxide (Magnesium Oxide 400 Mg Tab) 400 mg PO DAILY [facility] Stop: 07/01/23 08:59 Last Admin: 06/09/23 08:28 Dose: 400 mg Melatonin (Melatonin 3 Mg Tab) 3 mg PO HS PRN PRN Reason: Sleep Stop: 07/02/23 01:18 Last Admin: 06/02/23 02:33 Dose: 3 mg Metoprolol Succinate (Metoprolol Succ 50mg Ext Rel Tab) 50 mg PO [facility] Stop: 07/01/23 08:59 Last Admin: 06/09/23 08:29 Dose: 50 mg Miscellaneous (Remove Nicoderm Patch) 1 each N/A DAILY@0859 [facility] Stop: 07/02/23 08:58 Last Admin: 06/09/23 08:31 Dose: 1 each Nicotine (Nicotine 21 Mg/24 Hr Tdsy) 21 mg [facility] Stop: 07/01/23 14:29 Last Admin: 06/09/23 08:29 Dose: 21 mg Oxycodone HCl (Oxycodone Hcl Ir 5 Mg Tab (Immediate Release)) 5 mg PO Q4H PRN PRN Reason: Pain Stop: 06/15/23 03:17 Last Admin: 06/08/23 15:20 Dose: 5 mg Potassium Chloride (Potassium Chloride Crtab 20 Meq Tabcr) 20 meq [facility] Stop: 07/02/23 08:59 Last Admin: 06/09/23 08:31 Dose: 20 meq Rosuvastatin Calcium (Rosuvastatin Calcium 10 Mg Tab) [facility] Stop: 07/01/23 08:59 Last Admin: 06/09/23 08:29 Dose: 10 mg Thiamine HCl (Thiamine Hcl 100 Mg Tab) 100 mg PO QAM [facility] Stop: 07/01/23 08:59 Last Admin: 06/09/23 08:30 Dose: 100 mg Trazodone HCl (Trazodone Hcl 100 Mg Tab) 100 mg PO HS [facility] Stop: 07/01/23 20:59 Last Admin: 06/08/23 19:51 Dose: 100 mg Umeclidinium/Vilanterol (Umeclidinium/Vilanterol 62.5/25mcg 7 Puffs/Inhaler) 1 puffs INH DAILY [facility] Stop: 07/01/23 08:59 Last Admin: 06/08/23 08:08 Dose: 1 puffs Warfarin Sodium (Warfarin Sod 10 Mg Tab) 10 mg PO SuMoWeThFrSa@1600 [facility] Stop: 07/02/23 16:14 Last Admin: 06/08/23 15:47 Dose: 10 mg Warfarin Sodium (Warfarin Sod 5 Mg Tab) 5 mg PO Tu@1600 [facility] Stop: 07/06/23 15:59 Last Admin: 06/06/23 15:29 Dose: 5 mg
[2023-06-09 11:01] LABS: INR 2.5 (0.9-1.1); Prothrombin Time 25.6 Seconds (9.0-12.0)
[2023-06-09] MEDS: UMECLIDINIUM/VILANTEROL 62.5/25MCG 7 PUFFS/INHALER INH SCH (11:05)
--- NOTE | 2023-06-10 07:21 | Discharge Summary ---
Date of Service June 09, 2023 Admission HPI Per Admitting Provider History obtained from patient and records. Medical history significant for chronic diastolic heart failure (EF 55%, TTE 2022), A. fib on Coumadin, valvular heart disease (severe MR, mild AR/TR, mitral valve prolapse), PAD, hypertension, hyperlipidemia, COPD, pulmonary hypertension, breast cancer left status post surgery/chemoradiation, chronic hyponatremia, history of seizure disorder, past history of subdural hematoma, anxiety/mood disorder, chronic thrombocytopenia, ambulatory dysfunction, ongoing tobacco/alcohol abuse as per records Recent confinement last month for hyponatremia in the setting of alcoholism. Patient discharged on Lasix and daily fluid restriction recommendations of 1.2 L. Keppra also initiated during confinement for seizures. MRI showed subdural hemorrhage. Coumadin held on discharge following neurology recommendations. 2 weeks ago, patient fell backwards landing on her bottom and resulting in head trauma. Patient tried to get up and walk around without the help of her which she is not supposed to do. No syncope or LOC. No chest pain or SOB. Achy headache and dizziness and pelvic pain worse on motion following fall. Episodic EtOH intake. Compliant with fluid restriction. Patient seen at PCP's office last week. Outpatient CT head showed resolution of small subdural hematoma at the right cerebral convexity and tentorial leaflet. No evidence of new intracranial hemorrhage. Coumadin resumed following [facility] recommendations. Outpatient left hip and pelvic x-rays eventually read as: Newly demonstrated displaced fracture of the left pelvis including superior displacement of the left superior pubic ramus. This is incompletely characterized, but would recommend further evaluation initially with pelvis radiographs, and consideration for pelvic CT. Multilevel lumbar compression fracture deformities appearing essentially unchanged. Interval displaced fracture of the left superior and inferior pubic rami, pattern of fracture is suggestive of instability, recommend referral to emergency department, assessment and consideration of trauma imaging to assess for associated traumatic injuries. Patient directed to ER for evaluation. 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 Admission Exam Per Admitting Provider Physical Exam: GENERAL: Slightly uncomfortable, pleasant, no respiratory distress SKIN: Normal color, warm HEENT: [place] palpebral conjunctivae, no ptosis, dry buccal mucosa NECK : Supple, no tenderness CHEST : Decreased breath sounds, no tenderness HEART : Irregular, systolic murmur ABDOMEN: Some distention, left pelvic tenderness EXTREMITIES : No LE tenderness, no LE swelling NEUROLOGIC : Coherent, no facial asymmetry, gait and stance not assessed Principal Diagnosis Recurrent falls with pelvic ring fracture, acute UTI, chronic A-fib on Coumadin, alcoholism, history of subdural hematoma Discharge Exam Lying in bed without any acute distress Constitutional well developed, well nourished and average body habitus; not ill appearing Eyes PERRL, conjunctivae normal, anicteric sclerae ENMT external ear and nose normal, oropharynx normal Neck trachea midline, no thyromegaly Respiratory no respiratory distress Auscultation: lungs clear to auscultation bilaterally Cardiovascular Rate/Rhythm: regular rate and regular rhythm; not tachycardic Heart Sounds: normal S1 and normal S2; no murmur Extremities: no edema Gastrointestinal (Abdomen) Inspection/Auscultation: normal bowel sounds; abdomen not distended Percussion/Palpation: abdomen soft; abdomen nontender Neurologic normal touch/pain/proprioception and moves all extremities; no focal motor d eficits Lymphatic no cervical or axillary lymphadenopathy Discharge Data Allergies Allergy/AdvReac Type Severity Reaction Status Date / Time Sulfa (Sulfonamide Allergy Intermediate Rash Verified 05/31/23 20:58 Antibiotics) trimethoprim Allergy Intermediate Rash Verified 05/31/23 20:58 Consultations 05/31/23 21:00 ED Decision to Admit Stat 06/01/23 06:00 Consult Orthopedic Surgery Routine Ordered Studies 05/31/23 19:34 CT bony pelvis wo con Stat CT head/brain wo con Stat Hospital Course (1) Pelvic ring fracture: Plan 68-year-old female with PMH of chronic hyponatremia, hyperlipidemia, COPD, lung nodules, pulmonary hypertension, peripheral artery disease, chronic diastolic CHF [EF 55%, 2022 TTE], hypertension, chronic atrial fibrillation on Coumadin, protein calorie malnutrition, essential tremor, alcoholism, neuropathy, depression, ongoing tobacco abuse, Lt breast cancer status post surgery/chemoradiation, general anxiety disorder, seizure disorder, subdural hematoma April 2023/Coumadin resumed following [facility] neurology recommendation, chronic thrombocytopenia, ambulatory dysfunction, ongoing tobacco/alcohol abuse presented to the ED 05/31 because she fell backwards [landing on her bottom and resulting in head trauma] 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 She is being managed for the following: Recurrent falls Traumatic pelvic fracture Ambulatory dysfunction Pelvic ring fracture likely in the setting of age-related osteoporosis Patient with recurrent falls secondary to deconditioning secondary to chronic malnutrition/ongoing alcohol use/various comorbidities. Admitting CT pelvis with left sacral ala fracture, left pubic symphysis and comminuted left anterior pubic rami fractures Admitting CT head with no acute findings. Patient reports pain under control. Ortho evaluated, protected weightbearing 50% with walker, AP pelvic x-ray for monitoring purposes. Follow-up with Ortho on discharge. PT/OT-recommended rehab Patient remains free from any symptoms as of today 06/07/2023 She has been stable and awaiting placement Diffuse from going to [facility] Will be discharged to SNF tomorrow afternoon Remains stable without any significant symptoms Has been getting physical therapy and doing better Will be discharged to SNF this afternoon Acute UTI: UA s/o acute UTI, c/w atb 06/01, Urine culture is growing E. coli which is pansensitive We will continue ceftriaxone for now We will change antibiotic to oral tomorrow on discharge Antibiotic course is finished Chronic hyponatremia: Losartan was discontinued in prior admission in favor of Lasix. Admitting sodium of 127, about patient's baseline. Continue with fluid restriction. Monitor sodium level. Continue with Lasix. na improving. Sodium level has been better at 133 as of 06/07/2023 Sodium level has been around normal-134 as of 06/08/2023 Seizure: Patient was evaluated as an outpatient in 2022 for events suspected to be seizure. Patient was started on Keppra 500 mg twice daily in April 2023 during inpatient admission. Continue.-No more episode of seizures Subdural hematoma: Patient had subdural hematoma along the right convexity in April 2023. Follow-up outpatient CT head showed resolution of subdural hematoma and patient resumed on Coumadin following [facility] neurology recommendation. Pt also confirmed this. Fall precaution. Alcoholism: Patient continues to drink alcohol frequently. Patient has been counseled and encouraged alcohol cessation, patient voices understanding. Continue with thiamine and folic acid. Continue CAHTY S at Risk protocol Strongly advised to quit alcohol Other chronic medical conditions: Continue with/resume home meds as and when able. COPD, stable on home inhalers, continue home inhalers Ongoing tobacco abuse, counseled, nicotine patch as needed Chronic diastolic CHF: Follows with cardiology, stable. History of A-fib: Continue with home metoprolol and Coumadin as able. therapeutic INR today, c/w Coumadin. Monitor PT/INR. History of severe peripheral vascular disease: Vascular surgery has recommended intervention but patient seems to have declined as per epic. Contin ue with Coumadin and statin. Hypertension: Continue with home bp meds. Hyperlipidemia: Continue with home meds statin Depression and anxiety: Continue with home trazodone History of breast cancer: Status post chemo and radiation in surgery. Stable. DVT prophylaxis: coumadin INR has been low at 1.4 With increased Coumadin Disposition: PT/OT when able, after ortho eval Full code Patient's Mr. Jai Puente [[phone]]. Will be discharged to SNF this afternoon Total Time Total Time Spent Total Time Spent (In Minutes): 35 minutes Discharge Plan Discharge Items Patient Disposition[facility] Reason For Visit: HYPONATREMIA Discharge Diagnosis: Recurrent falls with pelvic ring fracture, acute UTI, chronic A-fib on Coumadin, alcoholism, history of subdural hematoma Condition on Discharge: Fair Activity: Resume your previous activity Non-emergency contact: Primary Care Provider Call non-emergency contact if: you have any medication questions and your symptoms worsen Follow-up/Referrals: Britney Ko CRNP [Primary Care Provider] - Diet: Heart Healthy Fluids: 1500ml (6 cups) Addtl Attending Provider Instructions: Please take precautions to avoid falls Take your medications as advised You need to have regular blood test to check INR and take your Coumadin according.INR on 06/09/2023 is 2.5 Strongly advised to quit drinking and smoking Please give appointment with the healthcare providers You will 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 for the recurrent breast mass Pending Studies at Discharge: No Stand-Alone Forms: My [employer] Skilled Items Patient informed of condition?: Yes DNR: No Discharge Level of Care: Skilled Communicable Disease: No Discharge Prognosis: Stable Lines: None Urinary Catheter: No Medications and DC Order Prescriptions: New nicotine [Nicoderm CQ] 21 mg/24 hr Patch 24 Hour 21 mg transdermal QAM Qty: 28 0RF Continued thiamine HCl (vitamin B1) [Vitamin B-1] 100 mg Tablet 100 mg PO QAM folic acid 400 mcg Tablet 0.4 mg PO DAILY ammonium lactate 12 % lotion 1 applic TOPICAL DAILY rosuvastatin 10 mg tablet 10 mg PO QAM albuterol sulfate 2.5 mg /3 mL (0.083 %) Solution For Nebulization 2.5 mg INHALATION DIRECTED PRN (Reason: NEEDED) Rx Instructions: PER PT "HAVE NOT STARTED". warfarin 10 mg tablet See Rx Instructions .ROUTE .COMPLEX Hold Instructions: Resume on 06/07/23. Until further evaluation by neurosurgery in 1 to 2 weeks time. Rx Instructions: TAKES 5 MG ON TUESDAYS EVENINGS ONLY, THEN 10 MG ALL OTHER EVENINGS. acetaminophen [Tylenol Extra Strength] 500 mg Tablet 500 mg PO DIRECTED MDD PER [facility]-DO NOT EXCEED 1000 MG PRN (Reason: Pain) Rx Instructions: PER PT "TAKE 2, SOMETIMES 3 TABS AT A TIME". trazodone 100 mg tablet 100 mg PO HS lidocaine 5 % Adhesive Patch,Medicated 1 patch TOPICAL DAILY PRN (Reason: Pain) Rx Instructions: leave on most painful area for up to 12 hrs magnesium oxide 200 mg magnesium Tablet 200 mg PO DAILY Trelegy Ellipta 100-62.5-25 mcg Blister With Device 1 inh INHALATION DAILY metoprolol succinate 50 mg tablet extended release 24 hr 50 mg PO QAM levetiracetam [Keppra] 500 mg Tablet 500 mg PO BID Qty: 60 0RF furosemide 20 mg Tablet 20 mg PO BID17 Qty: 60 0RF potassium chloride 20 mEq Tablet,Er Particles/Crystals 20 meq PO QAM Qty: 30 0RF Discharge Orders: Discharge Order (Routine); Ordered 06/09/23 Ordered By: Adam Hobbs Admission Data Admit Date/Time: 06/01/23 03:00 Attending Provider: Adam Hobbs Admit Provider: Silver Duong Primary Care Provider: Britney Ko Other Providers: Silver Duong; Bert Phillips; Timo Baires; Valdemar Chavez; Anushka Chanel; Mitchel Pressley; Mackenzie Horne; Joel Sena; Frank Jurado; Baltazar Mcclain; John Pereira; Frank Melissa; Jai Franks; Itz Ladd; Bruce Hobbs; Mina Bolton; Mackenzie Mendieta; Toi Banks; Armin Jacobson; Oliva Mendoza; Jose Maria Camacho; Andrey Judd; Lexi Roberts; Rahul Smith; Ok Macrina farfan; Elin Tierney; [facility]; [place]; [facility]; Chiara Morfin Other Interventions: Discharge Summary Assessment (RN) Last Done: 06/09/23 11:46
== END 2023-06-09 13:05 | DRG 543 ==
LOC: ED 19:12 → SUATTDRO 06-01 03:00 → EDINP 06-01 03:00 → 2N 06-01 04:46 → 3N 06-05 10:32